=== PATIENT | male | born 1945 | race Caucasian/White ===

== ENCOUNTER → 2017-12-13 08:37 | Outpatient (CLI) | payer MEDICARE, SELFPAY ==
[2017-12-13 12:05] LABS: AST(SGOT) 27 U/L (15-37); Alanine Aminotransfer ALT/SGPT 48 U/L (16-61); Albumin, Serum 3.5 g/dL (3.2-5.0); Alkaline Phosphatase 83 U/L (45-117); Bilirubin, Direct 0.06 mg/dL (0.00-0.30); Cholesterol 94 mg/dL (200); Globulin 4.4 g/dL (2.2-4.2); High Density Lipoprotein 29 mg/dL; Protein, Total 7.9 g/dL (6.4-8.2); Triglycerides 192 mg/dL; Very Low Density Lipoprotein 38 mg/dL (5-40)
== END ==
PROVIDERS: Family Provider Family Medicine; PCP Family Medicine; Visit Provider Internal Medicine Cardiovascular Disease
DX: E78.5 Hyperlipidemia, unspecified (principal)
CPT/HCPCS: 36415; 80061; 80076

== ENCOUNTER 2018-10-03 14:22 | Emergency (ER) | payer MEDICARE, SELFPAY ==
[2018-10-03 14:23] VITALS: BP 162/63; PULSE 93; RESP 12; TEMP 36.9; O2SAT 98; BMI 70.0
--- NOTE | 2018-10-03 14:51 | RAD_ITS ---
STUDY: X-RAY CHEST REASON FOR EXAM: Male, 73 years old. Cough. TECHNIQUE: Single AP portable view of the chest. COMPARISON: Comparison is made with prior study dated October 08, 2012. FINDINGS: There now is evidence of increased markings at the lung bases suggestive of bibasilar atelectasis. Blunting of both cosmetic angles. There is mild cardiac enlargement. The patient status post mitral valve replacement. Normal mediastinum and mj. Normal visualized pulmonary arteries. Normal visualized aortic arch and descending thoracic aorta. There are diffuse degenerative changes of the visualized thoracic spine. Normal visualized ribs, clavicles, and shoulders. There is no demonstrated abnormality of the visualized soft tissue structures of the upper abdomen. RAD/Chest 1 View (Portable) IMPRESSION: Mild degree of increased markings at the lung bases with blunting of both costophrenic angles. The patient is status post mitral valve replacement. Electronically Signed: Amarjit Cruz MD at 15:35 EST Tel [phone], Service support ,
[2018-10-03 15:25] LABS: Absolute Lymphocyte Count 0.96 X10^3/ul (0.83-4.51); Absolute Neutrophil Count 5.7 X10^3/uL (2.0-7.7); Basophil# 0.02 X10^3/uL; Basophil% 0.3 % (0-1); Eosinophil# 0.12 X10^3/uL; Eosinophils% 1.6 % (0-5); Hematocrit 34.4 % (40-54); Hemoglobin 10.9 g/dl (13.0-16.5); Lymphocyte # 0.96 X10^3/ul (4.0); Lymphocyte % 12.9 % (19-41); Mean Corp Hgb Conc 31.7 g/gl (32-36); Mean Corpuscular Hgb 27.1 pg (27.0-32.0); Mean Corpuscular Volume 85.6 fL (80-94); Mean Platelet Vol. 9.7 fl (6.2-12.0); Monocyte# 0.63 X10^3/uL; Monocyte% 8.5 % (0-10); Neutrophil # 5.66 X10^3/uL (2.7-7.7); Neutrophil % 75.9 % (47-70); Platelet Count 193 K/mm3 (150-450); RBC Distribution Width CV 14.9 % (11.6-14.6); RBC Distribution Width SD 46.6 fl (35.1-43.9); Red Blood Count 4.02 M/mm3 (4.6-6.2); White Blood Count 7.5 K/mm3 (4.4-11.0)
[2018-10-03 15:30] LABS: Anion Gap 9 (5-15); BUN 29 mg/dL (7-18); BUN/Creat Ratio 20.9 RATIO (10-20); Calcium,Total 8.2 mg/dL (8.5-10.1); Chloride 104 mmol/L (98-107); Creatinine, Serum 1.39 mg/dL (0.70-1.30); EST Glomerular Filtration Rate 54 mL/min (>60); Est Glom Filt Rate - Afr Amer 65 mL/min (>60); Estimated Creatinine Clearance 51.92 ml/min; Glucose 134 mg/dL (74-106); Potassium 4.5 mmol/L (3.5-5.1); Sodium Level 138 mmol/L (136-145)
[2018-10-03 15:39] LABS: POSITIVE COUNT NO; POSITIVE DIFFERENTIAL NO; POSITIVE MORPHOLOGY NO
[2018-10-03 15:40] LABS: International Normalized Ratio 1.4; Prothrombin Time (Protime)PT. 16.8 SECONDS (11.7-14.9)
--- NOTE | 2018-10-03 16:03 | ED.DCSUM_ITS ---
- ER Visit Summary Date of Service: 10/03/18 Chief Complaint: Drainage from wound History of Present Illness: The patient is a [address] Blanchard and Dr. Akira Pacheco. On September 26 the patient had a mitral valve replacement by Dr. Smart at [facility]. He reports he was discharged from the hospital October 01. States that today he coughed and felt drainage from the incision of the lower right chest. States that the drainage was light pink, thin, and did not have an order. When asked specifically this was not purulent or jadyn blood. He denies any pain. Review of systems: General: No fever, chills, cold sweats. Cardiovascular: No chest pain, palpitations. Respiratory: No cough, shortness of breath, dyspnea on exertion. Gastrointestinal: No abdominal pain, nausea, vomiting, diarrhea, melena, or hematochezia. Genitourinary: No dysuria, frequency, hematuria. Skin: No rash. Neuro: No headache, numbness, weakness. Physical Examination: Vitals: Stable. Afebrile. General: Well-nourished and well-developed. Head: Normocephalic atraumatic. Neck: Supple, no lymphadenopathy. No JVD. Nontender. Cardiovascular: Regular rate and rhythm. No murmurs. Respiratory: No respiratory distress. Clear to auscultation bilaterally. There is an approximately 6 cm incision lateral right chest that is clean dry and intact. Inferior to this there approximately 2 cm incisions x2 that the drainage has come from. There is no surrounding erythema, induration, or tenderness to palpation. The drainage on the dressing appears to be serosanguineous. I am unable to express any fluid from this. Abdominal: Soft, nontender, nondistended, normal bowel sounds. No guarding, rebound, or peritoneal signs. Back: Nontender. Extremities: Nontender, no edema. Skin: Normal color, no rash. Neurologic: Alert and oriented ?3. Cranial nerves II through XII are intact. Normal strength and sensation. Psych: Normal affect. Test Results: CBC is more for an H&H 10.9 34.4, 7 neutrophils 76, lymphocytes 13. Chem-7 more for glucose 134, BUN 29, creatinine 1.39, calcium 8.2. INR is 1.4. Chest x-ray shows atelectasis. Emergency Department Course and Treatment: Patient is resting comfortably. Treatment Plan: The patient was discussed with Dr. Smart nurse practitioner. She reports that the incisions normally do have some serosanguineous drainage. She asked that I have patient increase his Coumadin from 1.25-2.5 mg a day and have his INR checked again on Saturday. Watch to make sure that this drainage is not becoming purulent. He is instructed to return to emerge part for worsening pain, fever, redness, or any other concerns. Otherwise follow-up with his surgeon as previously scheduled. Disposition: To home in improved and stable condition. Impression: 1. 7 days status post mitral valve replacement. 2. Subtherapeutic INR. This note was generated with [employer] dictation software. It may contain incorrect words, spelling, and punctuation that were not noted in review of the chart prior to signing ED Disposition - Plan for ED Patient: Disposition: Home or Assisted Living Chief Complaint: Wound Check Instructions: ED Burn Wound Check No Infec Referrals: Doctor,Your [STAFF PHYSICIAN] - Keep Brenden appointment Additional Instructions: Increase your Warfrin to 2.5 mg a day and have your level checked again on Saturday.
[2018-10-03 16:18] VITALS: RESP 18
== END 2018-10-03 16:19 | disposition home or self-care (01) ==
PROVIDERS: Emergency Provider Emergency Medicine; Family Provider Family Medicine; PCP Family Medicine; Referring Provider Internal Medicine Cardiovascular Disease
DX: D68.8 Other specified coagulation defects (principal); Z79.01 Long term (current) use of 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; Z95.2 Presence of prosthetic heart valve; I25.10 Atherosclerotic 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native coronary artery without angina pectoris; E11.9 Type 2 diabetes mellitus without complications; I10 Essential (primary) hypertension; Z95.5 Presence of coronary angioplasty implant and graft
CPT/HCPCS: 71045; 80048; 85025; 85610; 99282

== ENCOUNTER → 2018-10-07 13:57 | Outpatient (CLI) | payer MEDICARE, OTHER, SELFPAY ==
[2018-10-03 14:23] VITALS: BMI 70.0
--- NOTE | 2018-10-07 14:25 | RAD_ITS ---
STUDY: X-RAY CHEST REASON FOR EXAM: Male, 73 years old. Shortness of breath TECHNIQUE: Frontal and lateral views of the chest COMPARISON: 10/03/2018 FINDINGS: The lungs are clear. There are no pleural effusions. There is no pneumothorax. The heart is mildly enlarged, but stable in size. There is a prosthetic mitral valve again noted. The visualized osseous structures are within normal limits. RAD/Chest PA and Lateral IMPRESSION: No acute thoracic pathology. Electronically Signed: Bahman Carias, at 15:12 EST Tel , Service support ,
[2018-10-07 15:29] LABS: Hematocrit 34.5 % (40-54); Hemoglobin 10.6 g/dl (13.0-16.5); Mean Corp Hgb Conc 30.7 g/gl (32-36); Mean Corpuscular Hgb 26.8 pg (27.0-32.0); Mean Corpuscular Volume 87.3 fL (80-94); Mean Platelet Vol. 10.8 fl (6.2-12.0); Platelet Count 223 K/mm3 (150-450); RBC Distribution Width CV 14.9 % (11.6-14.6); RBC Distribution Width SD 47.2 fl (35.1-43.9); Red Blood Count 3.95 M/mm3 (4.6-6.2); White Blood Count 6.4 K/mm3 (4.4-11.0)
[2018-10-07 15:31] LABS: Scan Indicated on CBC? Y/N NO
[2018-10-07 15:37] LABS: Anion Gap 7 (5-15); BUN 28 mg/dL (7-18); BUN/Creat Ratio 20.3 RATIO (10-20); Calcium,Total 8.5 mg/dL (8.5-10.1); Chloride 102 mmol/L (98-107); Creatinine, Serum 1.38 mg/dL (0.70-1.30); EST Glomerular Filtration Rate 54 mL/min (>60); Est Glom Filt Rate - Afr Amer 65 mL/min (>60); Glucose 124 mg/dL (74-106); Potassium 4.5 mmol/L (3.5-5.1); Sodium Level 136 mmol/L (136-145)
--- OUTSIDE RECORDS SUMMARY | 2018-11-23 18:55 | XMS RPT_ITS ---
:1945 Author Organization [facility] Support Name Relationship Address Phone CHAPIS PHELAN Unavailable [address] + [place] [address] KAUFMAN GHASSAN Unavailable [address] + [place] [address] R Unavailable Unavailable Unavailable LINEBAMARYJANE CHAPIS Unavailable [address] + [place] [address] GHASSAN KAUFMAN Unavailable [address] + [place] [address] R Unavailable Unavailable Unavailable LINEBAUGH, CHAPIS Unavailable [address] + [place] [address] GHASSAN KAUMFAN Unavailable [address] + [place] [address] R Unavailable Unavailable Unavailable LINEBAUGH, CHAPIS Unavailable [address] + [place] [address] GHASSAN KAUFMAN Unavailable [address] + [place] [address] R Unavailable Unavailable Unavailable LINEBAUGH, CHAPIS Unavailable [address] + [place] [address] GHASSAN KAUFMAN Unavailable [address] + [place] [address] R Unavailable Unavailable Unavailable LINEBAUGH, CHAPIS Unavailable [address] + [place] [address] GHASSAN KAUFMAN Unavailable [address] + [place] [address] R Unavailable Unavailable Unavailable LINEBAUGH, CHAPIS Unavailable [address] + [place] [address] LINEBAUGH, CHAPIS Unavailable [address] + [place] [address] GHASSAN KAUFMAN Unavailable [address] + [place] [address] R Unavailable Unavailable Unavailable LINEBAUGH, CHAPIS Unavailable [address] + [place] [address] GHASSAN KAUFMAN Unavailable [address] + [place] [address] R Unavailable Unavailable Unavailable LINEBAUGH, CHAPIS Unavailable [address] + [place] [address] GHASSAN KAUFMAN Unavailable [address] + [place] [address] R Unavailable Unavailable Unavailable LINEBAUGH, CHAPIS Unavailable [address] + [place] [address] GHASSAN KAUFMAN Unavailable [address] + [place] [address] R Unavailable Unavailable Unavailable LINEBAUGH, CHAPIS Unavailable [address] + [place] [address] R Unavailable Unavailable Unavailable LINEBAUGH, CHAPIS Unavailable [address] + [place] [address] LINEBAUGH, CHAPIS Unavailable [address] + [place] [address] R Unavailable Unavailable Unavailable LINEBAUGH, CHAPIS Unavailable [address] + [place] [address] R Unavailable Unavailable Unavailable R Unavailable Unavailable Unavailable LINEBAUGH, CHAPIS Unavailable [address] + [place] [address] R Unavailable Unavailable Unavailable KATHE WILLINGHAM Unavailable / + [place], [place] / LINEBAUGH, CHAPIS Unavailable [address] + [place] [address] R Unavailable Unavailable Unavailable KATHE WILLINGHAM Unavailable / + [place], [place] / Care Team Providers Name Role Phone Physician, PCP Unknown Primary Care Unavailable Jose F Nagel Admitting Unavailable AMRIANO MORENO Attending Unavailable MARIANO MORENO Attending Unavailable Physician, PCP Unknown Primary Care Unavailable ADRIANA BUITRAGO Attending Unavailable ADRIANA BUITRAGO Referring Unavailable Tara, Akira Primary Care Unavailable ADRIANA BUITRAGO Attending Unavailable ADRIANA BUITRAGO Referring Unavailable Tara, Akira Primary Care Unavailable Tara, Akira Primary Care Unavailable ADRIANA BUITRAGO Attending Unavailable ADRIANA BUITRAGO Referring Unavailable Lorna Salinas Attending Unavailable Lo, [place] Attending Unavailable Tara, Akira Primary Care Unavailable Lo, [place] Referring Unavailable Lo, [place] Attending Unavailable Tara, Akira Referring Unavailable Alma Delia Aquino Attending Unavailable Bib Antonia Referring Unavailable Tara, Akira Primary Care Unavailable Lo, Hemant Attending Unavailable Lo, [place] Referring Unavailable Tara, Akira Primary Care Unavailable Ai Sheehan Attending Unavailable Lo, Hemant Attending Unavailable Tara, Akira Referring Unavailable ADRIANA BUITRAGO Attending Unavailable Tara, Akira Primary Care Unavailable Lo, [place] Attending Unavailable Lo, Hemant Referring Unavailable Tara, Akira Primary Care Unavailable Lo, Hemant Attending Unavailable Lo, Hemant Referring Unavailable Tara, Akira Primary Care Unavailable Lo, [place] Attending Unavailable Lo, Hemant Referring Unavailable Tara, Akira Primary Care Unavailable Tara, Akira Primary Care Unavailable Vasu Zhu Attending Unavailable Lo, [place] Referring Unavailable ADRIANA BUITRAGO Consulting Unavailable PROBLEMS PROBLEMS DATE TYPE CONDITION / CODE ATTENDING STATUS SOURCE 11/18/2018 Unknown Z95.2 - Presence of Lo, [place] Active [place] prosthetic heart Community valve / Hospital Z95.2(ICD-10) Repository 11/10/2018 Unknown 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, 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 Community 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 / Hospital Z79.01(ICD-10) Repository 10/17/2018 Unknown E78.5 - Lo, Hemant Active [place] Hyperlipidemia, Community unspecified / Hospital E78.5(ICD-10) Repository 10/17/2018 Unknown I10 - Essential Lo, [place] Active [facility] (primary) Community hypertension / Hospital I10(ICD-10) Repository 10/17/2018 Unknown I25.10 - Lo, Hemant Active [place] Atherosclerotic Community 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[facility] [place] coronary Repository artery without angina pectoris / I25.10(ICD-10) 10/17/2018 Unknown I34.0 - Nonrheumatic Lo, [place] Active [place] mitral (valve) Community insufficiency / Hospital I34.0(ICD-10) Repository 10/17/2018 Unknown I50.33 - Acute on Lo, Hemant Active [facility] chronic diastolic Community (congestive) heart Hospital failure / Repository I50.33(ICD-10) 10/17/2018 Unknown 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, 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 / Hospital Z95.3(ICD-10) Repository 10/17/2018 Unknown Z95.5 - Presence of Lo, Hemant Active [facility] coronary angioplasty Community implant and graft / Hospital Z95.5(ICD-10) Repository 10/17/2018 Unknown E78.00 - Pure Lo, Hemant Active [place] hypercholesterolemia Community , unspecified / Hospital E78.00(ICD-10) Repository 10/14/2018 Unknown T82.897A - Other Audra, Active [facility] complication of Hospital cardiac prosthetic Repository devices, implants and grafts, initial encounter / T82.897A(ICD-10) 09/21/2018 Admitting Unknown / MARIANO MORENO Active [facility] Diagnosis UNK(Unknown) Health System Repository PROCEDURES PROCEDURES No Procedure Records FoundRESULTS RESULTS PROTHROMBIN TIME W/INR Collected: 11/10/2018 Status: F Source: [place] 10[place] [facility] [place] CODE TESTS RESULT OUT OF RANGE REFERENCE UNITS LAB L300.4150 11.7-14.9 SECONDS High PROTIME 21.0 LAB L300.4200 Normal INR 1.8 Performed By: #### L300.3900 #### [facility] [address] [place], [place], [address] PROTHROMBIN TIME W/INR Collected: 10/31/2018 Status: F Source: [place] 10:45 [place] [facility] [place] CODE TESTS RESULT OUT OF RANGE REFERENCE UNITS LAB L300.4150 11.7-14.9 SECONDS High PROTIME 18.1 LAB L300.4200 Normal INR 1.5 Performed By: #### L300.3900 #### [facility] [address] [place], [address] PROTHROMBIN TIME W/INR Collected: 10/24/2018 Status: F Source: [place] 11:25 AM [facility] [place] CODE TESTS RESULT OUT OF RANGE REFERENCE UNITS LAB L300.4150 11.7-14.9 SECONDS High PROTIME 19.5 LAB L300.4200 Normal INR 1.6 Performed By: #### L300.3900 #### [facility] [place], [address] DISCHARGE SUMMARY Observed: 10/17/2018 Status: F Source: [place] 12:22 PM [facility] REPOSITORY Patient: LOVE PHELAN Age: 73 years Sex: Male : 1945 Associated Diagnoses: None Author: Sarah Bryan CNP Supervising Physician Comments Documentation By: Nurse Practitioner. Discharge Information Admit Date: 09/21/18 05:02 Discharge Date: 10/01/18 16:47 Discharge Disposition: Home with home care 06 Reason For Visit: CHF Admitting Physician: Jose F Nagel MD Attending Physician: Mariano Moreno MD Consulting Physician: Abdoulaye Stanford MD Consulting Physician: Mariano Moreno MD Consulting Physician: Georges Nayak MD Consulting Physician: Daphney Jauregui DMD Consulting Physician: Emerson Solis MD Consulting Physician: Nica Keyes MD Consulting Physician: Akira Bhatti MD Consulting Physician: Mariano Moreno MD Consulting Physician: Mariano Moreno MD Primary Care Physician: Physician, PCP Unknown Active/Final Diagnosis(es) Heart failure, unspecified Nonrheumatic mitral (valve) insufficiency Nonrheumatic mitral (valve) insufficiency Other acute postprocedural pain Presence of prosthetic heart valve . Hospital Course Hospital Course Mr. Love Phelan is a 73 year old male who underwent Right anterior mini thoracotomy; Mitral valve replacement with 27 mm Medtronic [place]don tissue valve for mitral regurgitation. Was discharged to [facility] on POD #5. Plavix was stopped due to being on Coumadin for 3 months for CVA/thrombus prophylaxis. Discharged with [facility] to have INR checks M/W/F and called to [facility] office. . Procedures Performed PROCEDURES Mitral valve operation ([id number]) performed by Mariano Moreno MD on 09/26/2018 at 73 Years. Comments: 09/28/2018 16:01 - Paul DHALIWAL , Sarah A MINI LEFT THORACOTAMY, MITRAL VALVE REPLACEMENT. Medications Discharge Medications GlipiZIDE (glipiZIDE 10 mg oral tablet, extended release) 1 Tab = 10 mg By Mouth Tab, Extended Release Twice a day x 30 Day(s) MetFORMIN (metFORMIN 1000 mg oral tablet) 1 Tab = 1,000 mg By Mouth Tablet Twice a day x 30 Day(s) Take with meals. HOLD evening dose if any nausea/vomiting or diarrhea Miscellaneous Medication (Lancets) See Instructions Lancets Check blood glucose 3 times a day after mealsDx: Insulin-dependant diabetes Miscellaneous Medication (Glucometer) See Instructions Glucometer GlucometerCheck blood glucose 3 times a day after mealsDx: Insulin-dependant diabetes Miscellaneous Medication (Diabetic Braggs) See Instructions Diabetic Braggs To administer insulin after each meal and in the evening. Dx: Insulin-dependant diabetes Miscellaneous Medication (Test Strips) See Instructions Test Strips Check blood glucose 3 times a day after mealsDx: Insulin-dependant diabetes aspirin (aspirin 81 mg oral tablet) 1 Tab = 81 mg By Mouth once a day atorvastatin (atorvastatin 20 mg oral tablet) 1 Tab = 20 mg By Mouth once a day furosemide (furosemide 40 mg oral tablet) 1 Tab = 40 mg By Mouth Tablet once a day x 30 Day(s) Last Dose: 10/01/2018 09:19 insulin aspart (insulin aspart 100 units/mL injectable solution) 8 Unit Subcutaneous Solution Before Meals - 3 Times a day x 30 Day(s) insulin glargine (insulin glargine 100 unit/ml subcutaneous solution) 50 Unit Subcutaneous Injection Twice a day x 30 Day(s) Last Dose: 10/01/2018 09:20 metoprolol (metoprolol tartrate 50 mg oral tablet) 1 Tab = 50 mg By Mouth Tablet every 12 hours x 30 Day(s) Last Dose: 10/01/2018 09:19 COMMENTS: Future refills from your PCP/Tile Designer spironolactone (spironolactone 25 mg oral tablet) 2 Tab = 50 mg By Mouth Tablet once a day x 30 Day(s) Last Dose: 10/01/2018 09:19 warfarin (warfarin 2.5 mg oral tablet) 1 Tab = 2.5 mg By Mouth Tablet Daily Warfarin x 30 Day(s) Discontinued Medication Information No discontinued medication information charted Immunizations No vaccinations charted Allergies doxycycline: Mild, Hives Results Review Discharge Lab Results 10/01/18 05:54, Hemoglobin = 9.6 gm/dL L 10/01/18 05:54, Hematocrit = 28.8 % L 10/01/18 05:54, WBC Count = 5.4 thou/mcL 10/01/18 05:54, Platelet Count = 154 thou/mcL 10/01/18 05:54, PT = 31.8 Sec H 10/01/18 05:54, INR = 2.68 10/01/18 05:54, Sodium Level = 134 mMol/L L 10/01/18 05:54, Potassium Level = 4.5 mMol/L 10/01/18 05:54, Creatinine = 1.29 mg/dL 10/01/18 05:54, BUN = 36 mg/dL H 09/22/18 05:46, TSH = 1.36 mcIU/mL 09/26/18 03:52, Bilirubin Total = 0.6 mg/dL 09/26/18 18:21, Glucose POCT = 207 mg/dL H 10/01/18 05:54, Glucose Level = 196 mg/dL H 09/22/18 05:46, Hemoglobin A1c = 9.0 % tl hgb H Pending Labs/ Orders No unresulted orders Measurements (Last Charted) Weight: 106.8 kg /235 lbs 7 oz (Actual) (09/30/18 03:44:28) Height: 108.34 cm /42.65 in (Type not Indicated) (09/21/18 18:08:00) Physical Examination See most recent progress note Discharge Plan Discharge Instructions for the patient Additional Discharge Info It is normal to not have much of an appetite for several weeks Many patients noticed their sense of taste is decreased after surgery It will return Many patients have difficulty sleeping at night Taking a pain pill before bed sometimes helps Tiredness and difficulty sleeping at night can be expected This will improve with time You may have mood swings and feel depressed or discouraged You may have good days and bad This will get better You may experience muscle pain in your shoulders and upper back Pain medicines will help relieve this discomfort. Discharge Activities Encouraged You may shower, but do not take tub baths until cleared by your physician Pat incision dry Elevate your legs on a stool or coffee table when sitting If lying on the couch, elevate your legs on the arm or back of the couch Follow your cardiac rehabilitation program and your 10 day home activity plan Begin the day after discharge Walking is an excellent activity for recovery Walk at your own pace, resting when needed Walk indoors if the temperature is below 40 or above 80, or if the humidity is high Use your Tri-Flow every hour while awake Wear your heart hugger at all times (except when showering) for 6 weeks Wear your SANDOR hose during the day Have someone else apply them in the morning and remove them at night for bed. Discharge Activities Restricted Because smoking interferes with wound healing, do not smoke Your chances of stopping are greatly increased if you use medication or attend a program to help you Please discuss this with your doctor No tub baths, hot tubs, Jacuzzi's or swimming (pools or lakes) until you have permission from your doctor No lifting over 5 lbs, until approved by your physician Do not strain your breast bone during healing Avoid lifting, pushing or pulling, carrying children, suitcases, groceries, mowing the lawn, vacuuming, moving furniture May have sexual activity, but be well rested and be the passive partner Avoid persons smoking No driving until your physician approves. Discharge Diet Eat a low sodium, low fat diet Avoid processed foods, canned products, deep fried foods and fast food items. Notify Physician If you develop a cold, sinus problems, flu-like symptoms, fever for any reason (temperature over 101F or 38C), problems urinating, (burning or stinging) or if you suspect an infection of any typ e, call your doctor immediately Call your physician if you develop chest pain or shortness of breath that is not relieved with rest Of leg swelling that is not improved by elevation or becomes worse over time Of chest pain similar to preoperative angina pain Take your temperature daily (before eating/drinking) If your temp is 101.1 F or more, take it again at Noon and 4 PM If all 3 temps are 101.1 F or above, call your doctor Take your pulse daily when at rest If your pulse is less than 60 or more than 120 beats per minute, call your physician Weigh yourself every morning If you gain more than 2-3 lbs in 48 hours, call your physician Of sudden numbness or weakness in your arms or legs. Pain Management Instructions Do not drink alcoholic beverages (beer, wine or liquor) when taking pain medications Take pain medications as prescribed. Wound and Personal Care Do not remove steri strips They will fall off on their own Shower, then pat incision dry Check your incision daily Report any redness, swelling, heat or drainage to your doctor If you experience swelling in your legs and feet, elevate them above your chest when resting If you have meagan, they will be removed in the surgeon's office or by a visiting nurse Protect your incision from overexposure to sunlight for the first year The scar will darken if exposed to the sun. Follow Up Appointments Provider: Mariano Moreno MD Specialty: Thoracic Surg [facility] [address] [place] [address] (1) Date: 10/13/18 09:15 am Comment: Please complete labs and CXR prior to your appointment Provider: Hemant Blanchard MD Specialty: Address: [address] [place] [id number] Date: 10/17/18 09:30 am Comment: Follow up with your primary evp. Your appointment is scheduled for 9:30am. Bring a list of your current medications and hospital discharge paperwork. Provider: PCP Unknown Physician Specialty: Family Practice Address: Date: Follow-up as needed Patient Education Given Mitral Valve Replacement, Heart Failure, Ddll-on-Xvbt, [place] - Cardiac Surgery Discharge Instructions (CUSTOM), Low-Sodium Eating Plan, Incision Care PROTHROMBIN TIME W/INR Collected: 10/17/2018 Status: F Source: [place] 10:[place] [facility] [place] CODE TESTS RESULT OUT OF RANGE REFERENCE UNITS LAB L300.4150 11.7-14.9 SECONDS High PROTIME 18.2 LAB L300.4200 Normal INR 1.5 Performed By: #### L300.3900 #### [facility] [address] [place], [address] CARDIOLOGY VISIT Observed: 10/17/2018 Status: F Source: [place] RE[place] 10:11 AM [facility] [place] [facility] [address] [place] [address] OFFICE VISIT Date of Service: 10/17/18 MR#: [id number] Acct: [id number] Name: LOVE PHELAN Rep #: [id number] : 1945 Provider: Hemant Blanchard MD Age/Sex: 73/M Location: [facility] Status: Signed HPI HPI Chief Complaint: Follow up visit Details: LOVE PHELAN, is a 73 M who presents to the office today for a cardiovascular follow-up. He has a history of coronary artery disease with multivessel angioplasty in 2009. Heart catheterization at that time demonstrated a totally occluded RCA, circumflex with tubular 90% stenosis, LAD had discrete 85% stenosis followed by an 80% stenosis. He had angioplasty and stenting of these vessels. Medical therapy was recommended for the other vessels.He also has a history of hypertension and hyperlipidemia. He apparently was in [place] a few weeks ago and developed severe dyspnea on exertion in the middle of the night he was seen in the hospital was noted to have a cardiac murmur and echocardiogram demonstrated severe mitral regurgitation. He underwent a transesophageal echocardiogram which demonstrated a chronically occluded right coronary artery, patent obtuse marginal branch, circumflex artery and left anterior descending artery. He underwent mitral valve replacement with a 27 mm Medtronic Weldon tissue valve. This was done via the right anterior minithoracotomy approach. He did well postoperatively but it appears that he had some problems with his chest tube a few days later. He is feeling better at this particular time. He has had no dizziness or diaphoresis no near syncope or syncope. His physical exam today demonstrates clear lung mayberry regular rate and rhythm and no pedal edema his electrocardiogram demonstrates normal sinus rhythm with a rate of 75 bpm and no acute changes. Intake Vital Signs10/17/18 Height 5 ft 11 in Intake Visit Reasons: SANDRA Nv Syd 12-5 post stent Allergies doxycycline Allergy (Verified 10/17/18 08:21) hives Medications aspirin 81 mg tablet,delayed release 81 mg PO QDAY tab 12/11/17 [History Confirmed 10/16/18] insulin aspart U- 100 100 unit/mL subcutaneous cartridge See Rx Instructions SC BID 12/18/17 [History Confirmed 10/16/18] insulin glargine (U-100) 100 unit/mL (3 mL) subcutaneous pen See Rx Instructions SC QDAY 12/18/17 [History Confirmed 10/16/18] glipizide 10 mg tablet 10 mg PO BID 10/16/18 [History Confirmed 10/16/18] metoprolol tartrate 50 mg tablet 50 mg PO BID 10/16/18 [History Confirmed 10/16/18] warfarin 2.5 mg tablet 2.5 mg PO QHS tab 10/16/18 [History Confirmed 10/16/18] atorvastatin 40 mg tablet 40 mg PO QHS 10/17/18 [History Confirmed 10/17/18] furosemide 40 mg tablet 40 mg PO DAILY 10/17/18 [History Confirmed 10/17/18] losartan 25 mg tablet 25 mg PO DAILY #90 tab 10/17/18 [Rx Confirmed 10/17/18] metformin 1,000 mg tablet 500 mg PO BID tab 10/17/18 [History Confirmed 10/17/18] spironolactone 25 mg tablet 25 mg PO DAILY 10/17/18 [History Confirmed 10/17/18] [facility] Medical History Acute on chronic diastolic (congestive) heart failure (Chronic) Non-rheumatic mitral regurgitation (Chronic) Atherosclerotic 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[place] coronary artery without angina pectoris (Chronic) Hyperlipidemia (Chronic) Essential (primary) hypertension (Chronic) Hyperlipidemia (Chronic) Renal insufficiency (Acute) Diabetes mellitus type II, controlled (Chronic) Ischemic cardiomyopathy (Chronic) Occlusion and stenosis of right carotid artery (Chronic) Old myocardial infarction (Resolved) Surgical History History of mitral valve replacement with bioprosthetic valve (Resolved 09/26/18) History of coronary artery stent placement (Resolved 03/09/10) History of left heart catheterization (Resolved 09/22/18) Family History Father CAD (coronary artery disease) Hx CABG x4 vessels Myocardial infarction, Onset Age: 50 Mother Breast cancer Social History Smoking Status: Former smoker how long ago did patient quit smokin alcohol intake: current Alcohol type: beer substance use type: does not use caffeine: Yes Type: coffee what type of physical activity do you participate in: other details: occasional rowing machine, biking frequency: other details: occasional rowing machine, biking duration: other details: occasional rowing machine, biking seatbelt use: always do you feel safe at home: Yes ROS Const Const: Positive for fatigue; negative for weakness, difficulty sleeping, frequent falls, excessive sweating or headache(s) Eyes Eyes: Negative for loss of peripheral vision, transient loss of vision, blurry vision, tunnel vision or double vision ENT ENT: Negative for headache(s), dizziness, Nosebleed/epistaxis or balance problems Cardio Chest Pain: No Palpitations: No Edema: None Muscle aches with walking: None Additional Details: Right lateral chest wall incision well approx no drainage Resp Respiratory: Positive for Cough; negative for SOB with activity, SOB at rest, SOB orthopnea\SOB lying down or paroxysmal nocturnal dyspnea GI GI: Negative nausea, heartburn, black,tarry stools or vomiting : Negative for hematuria Musc Musc: Negative for balance problems, muscle aches/ myalgia, muscle weakness or joint pain Skin Skin: Negative non-healing lesions, unusual bruising or rash Neuro Neuro: Negative for weakness, frequent falls, headache(s), blurry vision, double vision, dizziness, lightheadedness, orthostatic symptoms, near syncope, syncope or lack of coordination John Hematologic/Lymphatic: Negative for easy bruising or easy bleeding Endo Endo: Positive for fatigue; negative for excessive sweating or increased thirst/drinking Psych Psych: Negative for anxiety or depression Allergy Allergy/Immunology: Negative for hives, Negative for rash Cardiology Exam Const Appearance: cooperative, healthy appearing, well developed, well groomed and no acute distress Nutritional Appearance: well nourished and average body habitus Orientation: alert, awake and oriented x3 Head Head: normal to inspection, normocephalic and atraumatic Ears: hearing grossly normal bilaterally and external ears normal Nose: external nose normal, nasal mucous membranes and turbinates normal, nares normal, septum normal, no nasal discharge Face and Sinus: face symmetric Mouth: oral mucosae normal, tongue normal, oropharynx normal and moist mucous membranes Teeth and gingiva: dentition normal Throat: posterior oropharynx normal, tonsils normal and uvula midline Eyes General: appearance normal, both eyes and all related structures Eyelids: eyelids normal Conjunctivae: conjunctivae normal Pupils: PERRL, normal by confrontation and accommodation normal EOM: EOM intact bilaterally Neck Neck: normal visual inspection, trachea midline and no JVD JVD: +5 Carotids: normal carotid upstroke and bounding pulses Chest Chest inspection: normal inspection of the chest, symmetric chest movement and normal respiratory effort Auscultation: Bilateral: Clear to Auscultation Cardio Palpation: normal PMI Rate: regular rate Rhythm: regular rhythm Heart sounds: S1 normal, S2 normal and normal, physiologic split S2; negative rub, gallop or murmur GI GI: normal to inspection, soft, no hepatosplenomegaly and bowel sounds present Neuro General: alert, awake, oriented x3, no focal sensory deficit, gait normal and moves all extremities Skin Skin: no rashes or lesions noted Extremities Pulses: Normal: Right Femoral Pulse, Left Femoral Pulse, Right Dorsalis Pedis Pulse, Left Dorsalis Pedis Pulse, Right Posterior Tibial Pulse, Left Posterior Tibial Pulse, Right Radial Pulse, Left Radial Pulse Lower Extremity Edema: None: Bilateral Musculoskel Musculoskeletal: No joint tenderness Psych Psychological: normal affect Assessment AND Plan 1. History of mitral valve replacement with bioprosthetic valve Z95.3 27 mm Medtronic Weldon Tissue Valve Plan He has a history of mitral valve replacement. His most recent echocardiogram demonstrated mild concentric left ventricular hypertrophy asynchronous septal contraction and a left ventricular ejection fraction of 45-50%. A stable bioprosthetic valve was noted. The plan is for him to continue with anticoagulation for total of 3 months and then baby aspirin will be resumed. Orders Orders: Referrals: 2. Atherosclerotic 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[place] coronary artery without angina pectoris I25.10 PCI-RADHA-OM1 w/ 2.75 x 23 mm Promus Stent , Mid Cx w/ 3.0 x 15 mm Promus Stent and Prox LAD w/ 2.5 x 28 mm Promus Stent 03/09/2010 Plan He does have a history of coronary artery disease his most recent cardiac catheterization demonstrated patent stents which were placed in 2009 in the left anterior descending artery and the circumflex artery. The right coronary artery was noted to be occluded. Orders Orders: Referrals: 3. Pure hypercholesterolemia E78.00 Plan He does have a history of hyperlipidemia which will be continued for secondary risk factor modification. 4. Essential (primary) hypertension I10 Plan He does have a history of hypertension. His blood pressure is under good control at this particular time he will remain on the spironolactone and the metoprolol as well as the furosemide. I would like us to start him on losartan 25 mg a day. 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) Coding Level of Care Code Off vis,est,level 5 Diagnoses History of mitral valve replacement with bioprosthetic valve Z95.3 Atherosclerotic 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[place] coronary artery without angina pectoris I25.10 Pure hypercholesterolemia E78.00 Hyperlipidemia type: pure hypercholesterolemia Essential (primary) hypertension I10 Coding Level of Care Code Off vis,est,level 5 Diagnoses History of mitral valve replacement with bioprosthetic valve Z95.3 Atherosclerotic 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[place] coronary artery without angina pectoris I25.10 Pure hypercholesterolemia E78.00 Hyperlipidemia type: pure hypercholesterolemia Essential (primary) hypertension I10 10/17/18 1011 <Electronically signed by Hemant Blanchard MD> Date Hemant Blanchard MD Cosigner Signature: Date (if applicable) CC: Akira Pacheco MD 12 LEAD EKG PERFORMED Observed: 10/17/2018 Status: F Source: [facility] 9:24 AM [facility] [place] [address] [address] 12 Lead EKG performed by [facility] 10/17/18 0924 MR#: [id number] Acct: [id number] Name: LOVE PHELAN Rep #: [id number] : 1945 73 From: Hemant Blanchard MD Attending Dr: Hemant Blanchard MD Status: DEP AMB Ordering Dr: Hemant Blanchard MD Date: 10/17/18 Location: [facility] [place] Sex: M C Admitted: [facility]/12 Lead EKG performed by [facility] ECG Report Interpretation Sinus Rhythm -RSR(V1) -nondiagnostic. -Left atrial enlargement. BORDERLINEElectronically signed on 11/18/2018 at 13:24 by Hemant Blanchardwood Software Version [id number] 11/18/18 1329 Date Hemant Blanchard MD CC: Akira Pacheco MD Date Dictated: 10/17/18923 Date Transcribed: 10/17/18923 Quality Compliance Manager: [place] Signed PROTHROMBIN TIME Collected: 10/13/2018 Status: F Source: [facility] 12:48 PM HEALTH SYSTEM REPOSITORY TYPE CODE TESTS RESULT OUT OF RANGE REFERENCE UNITS LAB 95965-7([place]) Normal INR 1.41 Result Comment: The recommended therapeutic INR range for most cardiac indications is 2.0-3.0. For high intensity therapy(ie.mechanical heart valves), the recommended range is 2.5-3.5. LAB 5902-2(LOINC) 9.3-12.4 Sec Prothrombin High Time (PT) 16.5 Performed By: #### 5902-2 #### [facility] PROTHROMBIN TIME W/INR Collected: 10/10/2018 Status: F Source: [facility] 10:00 AM [facility] TYPE CODE TESTS RESULT OUT OF RANGE REFERENCE UNITS LAB L300.4150 11.7-14.9 SECONDS High PROTIME 17.6 LAB L300.4200 Normal INR 1.4 Performed By: #### L300.3900 #### [facility] [address] [place], [place], [address] PROTHROMBIN TIME W/INR Collected: 10/08/2018 Status: F Source: [place] 10:00 AM [facility] TYPE CODE TESTS RESULT OUT OF RANGE REFERENCE UNITS LAB L300.4150 11.7-14.9 SECONDS High PROTIME 17.4 LAB L300.4200 Normal INR 1.4 Performed By: #### L300.3900 #### [facility] [address] [place], [place], [address] CHEST PA AND LATERAL Observed: 10/07/2018 Status: F Source: [facility] 2:18 PM [facility] Imaging Services [address] [place] [address] Chest PA and Lateral MR#: [id number] Acct: [id number] Name: LOVE PHELAN Rep #: [id number] : 1945 M 73 From: Bahman Carias MD PCP: Akira Pacheco MD Status: REG CLI Study: Chest PA and Lateral Date of Exam: 10/07/18 Exam# [id number] Ordering Dr: MARIANO MORENO STUDY: X-RAY CHEST REASON FOR EXAM: Male, 73 years old. Shortness of breath TECHNIQUE: Frontal and lateral views of the chest COMPARISON: 10/03/2018 FINDINGS: The lungs are clear. There are no pleural effusions. There is no pneumothorax. The heart is mildly enlarged, but stable in size. There is a prosthetic mitral valve again noted. The visualized osseous structures are within normal limits. RAD/Chest PA and Lateral IMPRESSION: No acute thoracic pathology. Electronically Signed: Bahman Carias, at 15:12 EST Tel , Service support , CC: MARIANO MORENO; Akira Pacheco MD Quality Compliance Manager: Signed CBC-COMPLETE BLOOD CNT Collected: 10/07/2018 Status: F Source: [facility] NO DIFF 2:07 PM [facility] [place] TYPE CODE TESTS RESULT OUT OF RANGE REFERENCE UNITS LAB L100.1000 4.4-11.0 K/mm3 Normal WBC 6.4 LAB L100.1200 4.6-6.2 M/mm3 Low RBC 3.95 LAB L100.1300 13.0-16.5 g/dl Low HGB 10.6 LAB L100.1400 40-54 % Low HCT 34.5 LAB L100.1500 80-94 fL Normal MCV 87.3 LAB L100.1600 27.0-32.0 pg Low MCH 26.8 LAB L100.1700 32-36 g/gl Low MCHC 30.7 LAB L100.1810 11.6-14.6 % High RDW CV 14.9 LAB L100.1820 35.1-43.9 fl High RDW SD 47.2 LAB L100.1900 150-450 K/mm3 Normal PLT 223 LAB L100.2000 6.2-12.0 fl Normal MPV 10.8 Performed By: #### L100.0500 #### [facility] [address] [facility] [place], [address] BASIC METABOLIC Collected: 10/07/2018 Status: F Source: [facility] PROFILE (BMP) 2:07 PM [facility] [place] TYPE CODE TESTS RESULT OUT OF RANGE REFERENCE UNITS LAB L501.0100 74-106 mg/dL High GLU 124 Result Comment: Fasting Glucose result from 100 to 125 mg/dL suggests IMPAIRED HOMEOSTASIS per A.D.A. criteria. Please note revised GLUCOSE reference range effective 2017. LAB L501.1000 7-18 mg/dL High BUN 28 LAB L501.1100 0.70-1.30 mg/dL High CREAT,SERUM 1.38 Result Comment: The validity of the calculated GFR AND GFRAA in patients over 70 years has not been determined. Clinical correlation is essential. LAB L501.1110 >60 mL/min Low EST GFR 54 Result Comment: Non- GFR Calc LAB L501.1115 >60 mL/min Normal EST GFR - AA 65 Result Comment: GFR Calc LAB L501.1300 10-20 RATIO High BUN/CRE 20.3 LAB L501.2200 8.5-10.1 mg/dL CA Normal 8.5 LAB L501.5300 136-145 mmol/L NA Normal 136 LAB L501.5600 3.5-5.1 mmol/L K Normal 4.5 LAB L501.5900 98-107 mmol/L CL Normal 102 LAB L501.6100 21.0-32.0 mmol/L Normal CO2 27.0 LAB L501.6200 5-15 Normal GAP 7 Performed By: #### L500.2500 #### [facility] [address] [place], [address] EMERGENCY DEPARTMENT Observed: 10/03/2018 Status: F Source: [facility] SUMMARY 5:53 PM [facility] Medical Records Department [address] [place] [address] Emergency Department Summary 10/03/18 1602 MR#: [id number] Acct: [id number] Name: LOVE PHELAN Rep #: [id number] : 1945 73 From: Vasu Zhu MD PCP: Akira Pacheco MD Status: DEP ER - ER Visit Summary Date of Service: 10/03/18 Chief Complaint: Drainage from wound History of Present Illness: The patient is a [address] Blanchard and Dr. Akira Pacheco. On September 26 the patient had a mitral valve replacement by Dr. Moreno at [facility]. He reports he was discharged from the hospital October 01. States that today he coughed and felt drainage from the incision of the lower right chest. States that the drainage was light pink, thin, and did not have an order. When asked specifically this was not purulent or jadyn blood. He denies any pain. Review of systems: General: No fever, chills, cold sweats. Cardiovascular: No chest pain, palpitations. Respiratory: No cough, shortness of breath, dyspnea on exertion. Gastrointestinal: No abdominal pain, nausea, vomiting, diarrhea, melena, or hematochezia. Genitourinary: No dysuria, frequency, hematuria. Skin: No rash. Neuro: No headache, numbness, weakness. Physical Examination: Vitals: Stable. Afebrile. General: Well-nourished and well-developed. Head: Normocephalic atraumatic. Neck: Supple, no lymphadenopathy. No JVD. Nontender. Cardiovascular: Regular rate and rhythm. No murmurs. Respiratory: No respiratory distress. Clear to auscultation bilaterally. There is an approximately 6 cm incision lateral right chest that is clean dry and intact. Inferior to this there approximately 2 cm incisions x2 that the drainage has come from. There is no surrounding erythema, induration, or tenderness to palpation. The drainage on the dressing appears to be serosanguineous. I am unable to express any fluid from this. Abdominal: Soft, nontender, nondistended, normal bowel sounds. No guarding, rebound, or peritoneal signs. Back: Nontender. Extremities: Nontender, no edema. Skin: Normal color, no rash. Neurologic: Alert and oriented 3. Cranial nerves II through XII are intact. Normal strength and sensation. Psych: Normal affect. Test Results: CBC is more for an H AND H 10.9 34.4, 7 neutrophils 76, lymphocytes 13. Chem-7 more for glucose 134, BUN 29, creatinine 1.39, calcium 8.2. INR is 1.4. Chest x-ray shows atelectasis. Emergency Department Course and Treatment: Patient is resting comfortably. Treatment Plan: The patient was discussed with Dr. Moreno nurse practitioner. She reports that the incisions normally do have some serosanguineous drainage. She asked that I have patient increase his Coumadin from 1.25-2.5 mg a day and have his INR checked again on Saturday. Watch to make sure that this drainage is not becoming purulent. He is instructed to return to emerge part for worsening pain, fever, redness, or any other concerns. Otherwise follow-up with his surgeon as previously scheduled. Disposition: To home in improved and stable condition. Impression: 1. 7 days status post mitral valve replacement. 2. Subtherapeutic INR. This note was generated with [employer] dictation software. It may contain incorrect words, spelling, and punctuation that were not noted in review of the chart prior to signing ED Disposition - Plan for ED Patient: Disposition: Home or Assisted Living Chief Complaint: Wound Check Instructions: ED Burn Wound Check No Infec Referrals: Doctor,Your [STAFF PHYSICIAN] - Keep Bren[facility] appointment Additional Instructions: Increase your Warfrin to 2.5 mg a day and have your level checked again on Saturday. What to do if you have Problems For any increased pain, shortness of breath, bleeding, nausea or vomiting, chest pain, or any unexpected problems, contact your Primary Care Provider. Call [facility] ([phone]) or report to the closest Emergency Room. Call 911 if necessary. 10/03/18 8557 <Electronically signed by Vasu Zhu MD> Date Vasu Zhu MD Cosigner Signature (If Indicated): Date CC: Akira Pacheco MD CBC W/DIFF, AUTOMATED Collected: 10/03/2018 Status: F Source: [facility] 3:15 PM [facility] [place] TYPE CODE TESTS RESULT OUT OF RANGE REFERENCE UNITS LAB L100.1000 4.4-11.0 K/mm3 Normal WBC 7.5 LAB L100.1200 4.6-6.2 M/mm3 Low RBC 4.02 LAB L100.1300 13.0-16.5 g/dl Low HGB 10.9 LAB L100.1400 40-54 % Low HCT 34.4 LAB L100.1500 80-94 fL Normal MCV 85.6 LAB L100.1600 27.0-32.0 pg Normal MCH 27.1 LAB L100.1700 32-36 g/gl Low MCHC 31.7 LAB L100.1810 11.6-14.6 % High RDW CV 14.9 LAB L100.1820 35.1-43.9 fl High RDW SD 46.6 LAB L100.1900 150-450 K/mm3 Normal PLT 193 LAB L100.2000 6.2-12.0 fl Normal MPV 9.7 LAB L100.2100 47-70 % High NEUT% 75.9 LAB L100.2200 19-41 % Low LY% 12.9 LAB L100.2300 0-10 % Normal MONO% 8.5 LAB L100.2400 0-5 % Normal EO% 1.6 LAB L100.2500 0-1 % Normal BASO% 0.3 LAB L100.2550 0.0-0.9 % Normal IM GRAN % 0.800 Result Comment: IG% - Immature Granulocytes (promyelocytes, myelocytes and metamyelocytes) > 1% indicates that a LEFT SHIFT is Present. LAB L100.2620 2.0-7.7 X10 3/uL Normal Absolute Neut 5.7 LAB L100.2720 0.83-4.51 X10 3/ul Normal Absolute Lymph 0.96 Performed By: #### L100.0100 #### [facility] [address] [place], [place], [address] PROTHROMBIN TIME W/INR Collected: 10/03/2018 Status: F Source: [facility] 3:15 PM [facility] [place] TYPE CODE TESTS RESULT OUT OF RANGE REFERENCE UNITS LAB L300.4150 11.7-14.9 SECONDS High PROTIME 16.8 LAB L300.4200 Normal INR 1.4 Performed By: #### L300.3900 #### [facility] [address] [place], [address] BASIC METABOLIC Collected: 10/03/2018 Status: F Source: [facility] PROFILE (BMP) 3:06 PM [facility] [place] TYPE CODE TESTS RESULT OUT OF RANGE REFERENCE UNITS LAB L501.0100 74-106 mg/dL High GLU 134 Result Comment: Fasting Glucose result greater than or equal to 126 mg/dL suggests DIABETES MELLITUS per A.D.A. criteria. Please note revised GLUCOSE reference range effective 2017. LAB L501.1000 7-18 mg/dL High BUN 29 LAB L501.1100 0.70-1.30 mg/dL High CREAT,SERUM 1.39 Result Comment: The validity of the calculated GFR AND GFRAA in patients over 70 years has not been determined. Clinical correlation is essential. LAB L501.1110 >60 mL/min Low EST GFR 54 Result Comment: Non- GFR Calc LAB L501.1115 >60 mL/min Normal EST GFR - AA 65 Result Comment: GFR Calc LAB L501.1255 ml/min Normal Estimated CRCL 51.92 LAB L501.1300 10-20 RATIO High BUN/CRE 20.9 LAB L501.2200 8.5-10 mg/dL Low .1 CA 8.2 LAB L501.5300 136-14 mmol/L Normal 5 NA 138 LAB L501.5600 3.5-5. mmol/L Normal 1 K 4.5 LAB L501.5900 98-107 mmol/L Normal CL 104 LAB L501.6100 21.0-3 mmol/L Normal 2.0 CO2 25.0 LAB L501.6200 5-15 Normal GAP 9 Performed By: #### L500.2500 #### [facility] [address] [place], [address] CHEST 1 VIEW Observed: 10/03/2018 Status: F Source: [facility] (PORTABLE) 2:50 PM [facility] Imaging Services [address] [place] [address] Chest 1 View (Portable) MR#: [id number] Acct: [id number] Name: LOVE PHELAN Rep #: [id number] : 1945 M 73 From: Amarjit Cruz MD PCP: Akira Pacheco MD Status: REG ER Study: Chest 1 View (Portable) Date of Exam: 10/03/18 Exam# [id number] Ordering Dr: Vasu Zhu MD STUDY: X-RAY CHEST REASON FOR EXAM: Male, 73 years old. Cough. TECHNIQUE: Single AP portable view of the chest. COMPARISON: Comparison is made with prior study dated October 08, 2012. FINDINGS: There now is evidence of increased markings at the lung bases suggestive of bibasilar atelectasis. Blunting of both cosmetic angles. There is mild cardiac enlargement. The patient status post mitral valve replacement. Normal mediastinum and mj. Normal visualized pulmonary arteries. Normal visualized aortic arch and descending thoracic aorta. There are diffuse degenerative changes of the visualized thoracic spine. Normal visualized ribs, clavicles, and shoulders. There is no demonstrated abnormality of the visualized soft tissue structures of the upper abdomen. RAD/Chest 1 View (Portable) IMPRESSION: Mild degree of increased markings at the lung bases with blunting of both costophrenic angles. The patient is status post mitral valve replacement. Electronically Signed: Amarjit Cruz MD at 15:35 EST Tel [phone], Service support , CC: Vasu Zhu MD; Akira Pacheco MD Quality Compliance Manager: Signed PATIENT SUMMARY Observed: 10/01/2018 Status: C Source: [facility] 2:56 PM HEALTH SYSTEM REPOSITORY PATIENT DISCHARGE INSTRUCTIONS If you are having an emergency and are not able to reach your physician, CALL 911 or go to the nearest emergency room and take this document with you. Jed Velarde [facility] 10/01/18 14:56 [address] [place]. [address] PATIENT INFORMATION Name: LOVE PHELAN Address: [address] [place] [id number] Age: 73 Years Phone: [phone] : 1945 12:00 MRN: [id number] Sex: Male Race: White Ethnicity: Not Hispan/Lat Admitted From: [facility] Medical Service: Thoracic Surgery Nurse Unit/Bed: ([place]) [facility] 6L54-87 Admit Date: 09/21/2018 05:02 PCP: Physician, PCP Unknown PHYSICIANS INVOLVED WITH CARE Attending Physicians: Berry AMBRIZ , Mariano - Thoracic Surg Admitting Physician: Jose F Nagel MD - Internal Medicine Primary Care Physician:Physician, PCP Unknown,Family Practice,,, - Consults: Andrei EVANS , Daphney S - Oral Maxillofacial Surgery Will AMBRIZ, Emerson Elaine - Internal Medicine, Nephrology Shaikh PB , Akira - CardVas Disease Nael AMBRIZ , Georges Dumont - Nephrology Berry AMBRIZ , Mariano - Thoracic Surg Stephy AMBRIZ, Nica Dumont - Nephrology Abdoulaye AMBRIZ , Abdoulaye Gutierrez - CardVas Disease YOU WERE TREATED IN THE HOSPITAL FOR: Mitral valve regurgitation; S/P MVR (mitral valve replacement) FOLLOW-UP APPOINTMENTS: Provider: Specialty: Address: Date: Mariano Moreno MD Thoracic Surg [address] [place] [address] (1) 10/13/18 09:15 am Comment: Please complete labs and CXR prior to your appointment Provider: Specialty: Address: Date: Hemant Blanchard MD [address] [facility] [address] 10/17/18 09:30 am Comment: Follow up with your primary evp. Your appointment is scheduled for 9:30am. Bring a list of your current medications and hospital discharge paperwork. Provider: Specialty: Address: Date: PCP Unknown Physician Family Practice Follow-up as needed ALLERGIES: doxycycline : Reaction:Hives MEASUREMENTS: Last Charted: Weight: 106.8 kg /235 lbs 7 oz ( 09/30/18 03:44:28 ) MEDICATIONS For: LOVE PHELAN This is your list of medication(s). Keep it with you at all times. Your doctor may have changed doses, add, held or stopped some of your medications. Please share this information with your family docto r. Carry this list of medications with you in case of an emergency. Update it when medications are stopped, doses are changed, or new medications (including izxg-faj-usuyddd products) are added. Ask your doctor if you have any questions. THESE ARE THE MEDICATIONS YOU SHOULD BE TAKING acetaminophen-HYDROcodone (acetaminophen-HYDROcodone 325 mg- 5 mg oral tablet) 1 Tab(s) By Mouth every 4 hours as needed Pain - Mild for 7 Days. Refills: 0. Diagnosis: S/P MVR (mitral valve replacement) [Z95.2], Acute post-operative pain [G89.18] aspirin (aspirin 81 mg oral tablet) 1 Tab(s) By Mouth once a day. atorvastatin (atorvastatin 20 mg oral tablet) 1 Tab(s) By Mouth once a day. furosemide (furosemide 40 mg oral tablet) 1 Tab(s) By Mouth once a day for 30 Days. Refills: 0. GlipiZIDE (glipiZIDE 10 mg oral tablet, extended release) 1 Tab(s) By Mouth Twice a day for 30 Days. Refills: 0. insulin aspart (insulin aspart 100 units/mL injectable solution) 8 Unit(s) Subcutaneous Before Meals - 3 Times a day for 30 Days. Take before each meal. Please HOLD if BG<80. Refills: 0. insulin glargine (insulin glargine 100 unit/ml subcutaneous solution) 50 Unit(s) Subcutaneous Twice a day for 30 Days. Refills: 0. MetFORMIN (metFORMIN 1000 mg oral tablet) 1 Tab(s) By Mouth Twice a day for 30 Days. Take with meals. HOLD evening dose if any nausea/vomiting or diarrhea. Refills: 0. metoprolol (metoprolol tartrate 50 mg oral tablet) 1 Tab(s) By Mouth every 12 hours for 30 Days. Refills: 1., Future refills from your PCP/Tile Designer Miscellaneous Medication (Diabetic Braggs) To administer insulin after each meal and in the evening. Dx: Insulin-dependant diabetes. Refills: 0. Miscellaneous Medication (Glucometer) Glucometer Check blood glucose 3 times a day after meals Dx: Insulin-dependant diabetes. Refills: 0. Miscellaneous Medication (Lancets) Check blood glucose 3 times a day after meals Dx: Insulin-dependant diabetes. Refills: 0. Miscellaneous Medication (Test Strips) Check blood glucose 3 times a day after meals Dx: Insulin-dependant diabetes. Refills: 0. spironolactone (spironolactone 25 mg oral tablet) 2 Tab(s) By Mouth once a day for 30 Days. Refills: 0. warfarin (warfarin 2.5 mg oral tablet) 1 Tab(s) By Mouth Daily Warfarin for 30 Days. Refills: 1. MEDICATION CHANGE DETAILS (Not your Final Home Medication List) During the course of your visit, your home medication list was updated with the most current information. The details of those changes are shown below: NEW MEDICATIONS Printed Prescriptions acetaminophen-HYDROcodone (acetaminophen-HYDROcodone 325 mg- 5 mg oral tablet) 1 Tab(s) By Mouth every 4 hours as needed Pain - Mild for 7 Days. Refills: 0. Comment furosemide (furosemide 40 mg oral tablet) 1 Tab(s) By Mouth once a day for 30 Days. Refills: 0. Comment metoprolol (metoprolol tartrate 50 mg oral tablet) 1 Tab(s) By Mouth every 12 hours for 30 Days. Refills: 1., Future refills from your PCP/Tile Designer Comment Miscellaneous Medication (Diabetic Braggs) To administer insulin after each meal and in the evening. Dx: Insulin-dependant diabetes. Refills: 0. Comment Miscellaneous Medication (Glucometer) Glucometer Check blood glucose 3 times a day after meals Dx: Insulin-dependant diabetes. Refills: 0. Comment Miscellaneous Medication (Lancets) Check blood glucose 3 times a day after meals Dx: Insulin-dependant diabetes. Refills: 0. Comment Miscellaneous Medication (Test Strips) Check blood glucose 3 times a day after meals Dx: Insulin-dependant diabetes. Refills: 0. Comment spironolactone (spironolactone 25 mg oral tablet) 2 Tab(s) By Mouth once a day for 30 Days. Refills: 0. Comment warfarin (warfarin 2.5 mg oral tablet) 1 Tab(s) By Mouth Daily Warfarin for 30 Days. Refills: 1. Comment UPDATED MEDICATIONS Printed Prescriptions Start: GlipiZIDE (glipiZIDE 10 mg oral tablet, extended release) 1 Tab(s) By Mouth Twice a day for 30 Days. Refills: 0. Comment Start: insulin aspart (insulin aspart 100 units/mL injectable solution) 8 Unit(s) Subcutaneous Before Meals - 3 Times a day for 30 Days. Take before each meal. Please HOLD if BG<80. Refills: 0. Comment Start: insulin glargine (insulin glargine 100 unit/ml subcutaneous solution) 50 Unit(s) Subcutaneous Twice a day for 30 Days. Refills: 0. Comment Start: MetFORMIN (metFORMIN 1000 mg oral tablet) 1 Tab(s) By Mouth Twice a day for 30 Days. Take with meals. HOLD evening dose if any nausea/vomiting or diarrhea. Refills: 0. Comment UNCHANGED MEDICATIONS Other Medications aspirin (aspirin 81 mg oral tablet) 1 Tab(s) By Mouth once a day. Comment atorvastatin (atorvastatin 20 mg oral tablet) 1 Tab(s) By Mouth once a day. Comment STOP TAKING THESE MEDICATIONS AmLODIPine (amLODipine 10 mg oral tablet) 1 Tab(s) By Mouth once a day. atenolol (atenolol 50 mg oral tablet) 1 Tab(s) By Mouth once a day. cholecalciferol (Vitamin D3 5000 intl units oral tablet) 1 Tab(s) By Mouth once a day. clopidogrel (Plavix 75 mg oral tablet) 1 Tab(s) By Mouth once a day. cyanocobalamin (cyanocobalamin 100 mcg/ml injectable solution) 1 Milliliter Intramuscular Monthly - Every 30 Days. hydroCHLOROthiazide (hydroCHLOROthiazide 25 mg oral tablet) 1 Tab(s) By Mouth once a day. lisinopril (lisinopril 40 mg oral tablet) 1 Tab(s) By Mouth once a day. DO NOT TAKE UNTIL YOU TALK TO YOUR DOCTOR None NON-MEDICATION PRESCRIPTION ORDERS: Supplies - Diabetic Diabetic Supplies: Insulin Injection Supplies Diagnosis / Reason: IDDM Special Instructions (255 character limit): pen needles 5x a day with insulin. Dispense #200 Face to Face Assessment Performed: Yes Needs Assessment Performed: Yes Treatment Plan: Monitor Blood Glucose Levels Supplies - Diabetic Diabetic Supplies: Other Diagnosis / Reason: IDDM Special Instructions (255 character limit): alcohol swabs, 3x a day, #100 Face to Face Assessment Performed: Yes Needs Assessment Performed: Yes Treatment Plan: Other-See Instructions NON-MEDICATION PRESCRIPTION SCHEDULING PHONE NUMBER: EDUCATION MATERIALS GIVEN: Title-Video/Print Material: HF teaching folder, self care diary, HF zone sheet and newsletter. Title-Video/Print Material: [facility] Title-Video/Print Material: Open heart DVD Teaching Method Comment-Cardiac: Heart surgery book SELECTED LAB RESULTS Lab Result Order Date Hemoglobin 9.6 gm/dL 10/01/2018 Hematocrit 28.8 % 10/01/2018 WBC Count 5.4 thou/mcL 10/01/2018 Platelet Count 154 thou/mcL 10/01/2018 Prothrombin Time (PT) 31.8 Sec 10/01/2018 INR 2.68 10/01/2018 Sodium Level 134 mMol/L 10/01/2018 Potassium Level 4.5 mMol/L 10/01/2018 Creatinine 1.29 mg/dL 10/01/2018 BUN 36 mg/dL 10/01/2018 Thyroid Stimulating Hormone 1.36 mcIU/mL 09/22/2018 Total Bilirubin 0.6 mg/dL 09/26/2018 Hemoglobin A1c 9.0 % tl hgb 09/22/2018 B Type Natriuretic Peptide 140 Picogram/ml 09/23/2018 Glucose Level 196 mg/dL 10/01/2018 LIPIDS TESTING LAB RESULTS Lab Result Order Date Lipid Profile - Cholesterol 125 mg/dL 09/22/2018 Lipid Profile - Triglyceride 219 mg/dL 09/22/2018 HDL Cholesterol 27 mg/dL 09/22/2018 LDL Cholesterol 54 mg/dL 09/22/2018 VLDL 44 mg/dL 09/22/2018 COUMADIN? (WARFARIN) DISCHARGE INSTRUCTION Warfarin is a blood thinner and it is important to take it exactly as prescribed by your doctor. Do not start or stop any medications or [id number] medications unless your doctor or pharmacist tells you to do so. Take your warfarin at the same time every day. If you do miss a dose do not take two doses at the same time. Do not take anything that has aspirin in it or another medication that may thin your blood unless your doctor says it is okay. Tell all your healthcare providers, including your dentist, that you are taking warfarin before they treat you or give you any medications or prescriptions. Talk to the doctor who is following your warfarin if you start or stop a medication or supplement. Warfarin Needs to be Monitored Lab tests are needed to check how thin your blood is while taking warfarin. The test used to check this is called a PT/INR Make sure you know the date of your next lab test and which doctor is following your lab tests. Some medications and foods can affect your PT/INR level. See below. Medications: Taking the following medications while you are taking warfarin may make your blood too thin and cause you to bleed. If you begin taking these medications while on warfarin your dose may need to be adjus sandor by the doctor who is following your blood levels. Hvrc-yez-yspinxe pain relievers: Acetaminophen (Tylenol?) aspirin, ibuprofen, (Motrin?) Nuprin? and naproxen (Aleve?) Prescription Medication: Antibiotics, antifungals, anti-seizure medications, steroids, and antiarrhythmic medications. Supplements: Taking Vitamin E, Garlic, Gingko, Ginseng or Marii when you are taking warfarin may make your blood too thin. Eating regular amounts of these herbs in foods is fine. Taking a clove or more of garlic or an additional supplement of Marii for nausea may make your blood too thin. Foods: Foods that have vitamin K in them can affect how warfarin works. Eat a consistent amount of vitamin K foods every day. If these foods are a normal part of your daily diet you may continue to eat them. A void making major changes in your diet, or talk to your doctor before changing habits. Examples of Foods Rich in Vitamin K include: Broccoli, [place] sprouts, kale, spinach, and other leafy greens, seaweed, soybean oil and canola oil or salad dressing containing these oils, chicken liver, beef liver, pork liver, asparagus, iceberg lettuce, and Boost? Call Your Doctor: If you have blood in your urine or stool. (dark or tarry stool) If you have a rash. If you have heavy or unusual bleeding or bruising. If you have difficulty breathing. If you have any more questions about Warfarin. Seek Medical Attention Immediately Since Warfarin Increases Your Risk of Bleeding: Internal bleeding can result from falls and injuries while on Warfarin. If you fall. If you bump your head. ADVANCE DIRECTIVE/HEALTH CARE DECISIONS: Advance Directive/Health Care Decisions Executed by Patient: Yes Advance Directive/Health Care Decisions Type: Living Will, Medical Power of Director [employer] Copy of Advance Directive/Health Care Decisions on Chart: Patient/Family asked to provide copy DISCHARGE INSTRUCTIONS: Discharge Diet Eat a low sodium, low fat diet. Avoid processed foods, canned products, deep fried foods and fast food items. Discharge Activities Restricted Because smoking interferes with wound healing, don't smoke. Your chances of stopping are greatly increased if you use medication or attend a program to help you. Discuss this with your doctor. No tub ba ths, hot tubs, Jacuzzi's or swimming (pools or lakes) until you have permission from your doctor. No lifting over 5 lbs, until approved by your physician. Do not strain your breast bone during healing. Avoid lifting, pushing or pulling, carrying children, suitcases, groceries, mowing the lawn, vacuuming, moving furniture. May have sexual activity, but be well rested and be the passive partner. Avoid p ersons smoking. No driving until your physician approves. Discharge Activities Encouraged You may shower, but do not take tub baths until cleared by your physician. Pat incision dry. Elevate your legs on a stool or coffee table when sitting. If lying on the couch, elevate your legs on the ar m or back of the couch. Follow your cardiac rehabilitation program and your 10 day home activity plan. Begin the day after discharge. Walking is an excellent activity for recovery. Walk at your own pace , resting when needed. Walk indoors if the temperature is below 40 or above 80, or if the humidity is high. Use your Tri-Flow every hour while awake. Wear your heart hugger at all times (except when enrique wering) for 6 weeks. Wear your SANDOR hose during the day. Have someone else apply them in the morning and remove them at night for bed. Notify Physician If you develop a cold, sinus problems, flu-like symptoms, fever for any reason (temperature over 101F or 38C), problems urinating, (burning or stinging) or if you suspect an infection of any type, call your doctor immediately. Call your physician if you develop chest pain or shortness of breath that is not relieved with rest. Of leg swelling that is not improved by elevation or becomes worse over time . Of chest pain similar to preoperative angina pain. Take your temperature daily (before eating/drinking). If your temp is 101.1 F or more, take it again at Noon and 4 PM. If all 3 temps are 101.1 F or above, call your doctor. Take your pulse daily when at rest. If your pulse is less than 60 or more than 120 beats per minute, call your physician. Weigh yourself every morning. If you gain more than 2-3 lbs in 48 hours, call your physician. Of sudden numbness or weakness in your arms or legs. Pain Management Instructions Do not drink alcoholic beverages (beer, wine or liquor) when taking pain medications. Take pain medications as prescribed. Wound and Personal Care Do not remove steri strips. They will fall off on their own. Shower, then pat incision dry. Check your incision daily. Report any redness, swelling, heat or drainage to your doctor. If you experience sw elling in your legs and feet, elevate them above your chest when resting. If you have meagan, they will be removed in the surgeon's office or by a visiting nurse. Protect your incision from overexposur e to sunlight for the first year. The scar will darken if exposed to the sun. Additional Discharge Info It is normal to not have much of an appetite for several weeks. Many patients noticed their sense of taste is decreased after surgery. It will return. Many patients have difficulty sleeping at night. Ta reji a pain pill before bed sometimes helps. Tiredness and difficulty sleeping at night can be expected. This will improve with time. You may have mood swings and feel depressed or discouraged. You may have good days and bad. This will get better. You may experience muscle pain in your shoulders and upper back. Pain medicines will help relieve this discomfort. SUICIDE HOTLINE: Your mental and emotional well-being are important. If you are in a mental health crisis, or having thoughts of suicide, please call the nationwide suicide hotline, anytime day or night, at 2-223-920-TWZD. Important information about accessing your health information through the [facility] patient portal If you initiated the self-registration process for [facility] during your stay, please check your personal email for an invitation to enroll in [facility] and complete the steps outlined in the email. If you would prefer to enroll while in the hospital, ask a member of your care team. We would be happy to assist you. If you have already enrolled in [facility], go to [email or web address] to login and access your health information. Thank you for choosing [facility]. PATIENT EDUCATION Incision Care An incision is when a surgeon cuts into your body. After surgery, the incision needs to be cared for properly to prevent infection. HOW TO CARE FOR YOUR INCISION ???Take medicines only as directed by your health care provider. ???There are many different ways to close and cover an incision, including stitches, skin glue, and adhesive strips. Follow your health care provider's instructions on: ???Incision care. ???Bandage (dressing) changes and removal. ???Incision closure removal. ???Do not take baths, swim, or use a hot tub until your health care provider approves. You may shower as directed by your health care provider. ???Resume your normal diet and activities as directed. ???Use anti-itch medicine (such as an antihistamine) as directed by your health care provider. The incision may itch while it is healing. Do not pick or scratch at the incision. ???Drink enough fluid to keep your urine clear or pale yellow. SEEK MEDICAL CARE IF: ???You have drainage, redness, swelling, or pain at your incision site. ???You have muscle aches, chills, or a general ill feeling. ???You notice a bad smell coming from the incision or dressing. ???Your incision edges separate after the sutures, meagan, or skin adhesive strips have been removed. ???You have persistent nausea or vomiting. ???You have a fever. ???You are dizzy. SEEK IMMEDIATE MEDICAL CARE IF: ???You have a rash. ???You faint. ???You have difficulty breathing. MAKE SURE YOU: ???Understand these instructions. ???Will watch your condition. ???Will get help right away if you are not doing well or get worse. This information is not intended to replace advice given to you by your health care provider. Make sure you discuss any questions you have with your health care provider. Document Released: 05/03/2006 Document Revised: 11/04/2015 Document Reviewed: 12/08/2014 [employer] Patient Education ?2016 [employer] Cardiac Surgery Discharge Instructions 1. Diet ? Continue your recommended diet. ? Eat a well-balanced diet, including protein and calories for healing. 2. Activities ? Support your incision with both arms using a blanket when coughing or getting up from a chair. ? Do not lift more than 5 pounds for 2 months. ? Do not lift items over your head for 2 months. ? Continue to walk, increasing your walking distance daily. ? You may climb up and down stairs, as tolerated. Do not pull yourself up by the handrail. ? For 2 months, do not vacuum, sweep, shovel snow, rake leaves, remove wet clothing from a washing machine, open a sliding glass door, use your arms to lift yourself out of a chair, or do anything that could pull on your chest. It is ok to wash and comb your hair. ? You may ride as a passenger at any time, but do not drive for 6 weeks. When traveling, get out of the car every 1 to 2 hours to walk. 3. Pain Management Instructions ? If a prescription was given for pain, take as needed, as directed, and taper off. 4. Medication Information ? Take your medications as directed. Keep a copy with you. Do not add or stop taking any medication until you check with your doctor. ? Increase your fiber intake and take over the counter stool softeners and/or laxatives as directed for constipation. 5. Wound and Personal Care ? Shower daily with soap, and rinse with water. Face your back toward the stream of water. Gently pat the incision dry after your shower. ? Do not apply lotions, ointments, creams, or powders to your incision unless otherwise directed. ? No tub baths/no swimming. 6. Follow-up Care ? Keep a record of your daily weight, temperature, pulse, blood pressure, and blood sugar (if diabetic) for your follow-up appointments. 7. Follow-up Labs and/or Tests ? Follow up with your surgeon. 8. Return to Work or School ? Follow up with your surgeon about your return to work date. ? If you need forms completed, please fax them to your surgeon. 9. Referral Information ? Follow up with referrals as directed 10. Equipment and Supplies ? Use your incentive spirometer (breathing exercise machine) as directed. ? Wear your support hose during the day for at least one month or longer if your ankles are swollen. 11. Other Information ? An outpatient Cardiac Rehabilitation Program is recommended in 2-3 months, after your incision is healed. ? Please refer to your book, Heart Surgery: A Guide to Your Care and Recovery for more information. CONTACT YOUR DOCTORS/PROVIDERS 12. Call 911 for emergency help if you have any of these symptoms: ? Chest discomfort or angina (or like the discomfort symptoms you had before surgery, but not the incisional pain) ? Fainting or passing out ? Severe shortness of breath ? Difficulty swallowing, confusion, numbness, tingling, weakness in your arms or legs, slurred speech, a change in the color of your arms or legs, and/or changes in your vision 13. When to call your Surgeon: ? Temperature greater than 101 degrees F ? Increased redness, warmth, swelling, pain, bleeding or drainage at the leg and/or chest incision ? Incisional pain that is not relieved by pain medication ? Increased shortness of breath 14. When to call your Primary Care Physician or Tile Designer: ? If you have diabetes and your blood sugar is consistently above 200mg/dL ? Pulse less than 55 or greater than 120 beats/minute at rest ? Irregular heart fluttering, palpitations, or dizziness ? Weight gain of 3 pounds or more in 24 hours ? Urinating with difficulty, burning or a change in color of the urine ? Persistent nausea or vomiting Mitral Valve Replacement Mitral valve replacement is surgical replacement of the mitral valve. Many mitral valves can be repaired, especially if they leak from wearing out. When the valve is too damaged to repair, the valve mus t be replaced. Valves damaged by rheumatic disease often must be replaced. An artificial (prosthetic) valve is used to do this. Three types of prosthetic valves are available: ???Mechanical valves made entirely from man-made materials. ?Donor valves made from human donors. These are only used in special situations. ?Biological valves made from animal tissues. ? LET YOUR HEALTH CARE PROVIDER KNOW ABOUT: ???Any allergies you have. ?All medicines you are taking, including vitamins, herbs, eye drops, creams, and pwps-vhs-lerusca medicines. ?Previous problems you or members of your family have had with the use of anesthetics. ?Any blood disorders you have. ?Previous surgeries you have had. ?Medical conditions you have. ? RISKS AND COMPLICATIONS Generally, mitral valve replacement is a safe procedure. However, problems can occur and include: ???Blood clotting caused by the new valve. Replacement with a mechanical valve requires lifelong treatment with medicine to prevent blood clots. ???Infection in the new valve. Infection is more common with valve replacement than with valve repair. ?Valve failure. Valve failure is more common with valve replacement than with valve repair. Pig heart valves tend to fail after about 8 to 10 years. ???Effects from the surgery itself, such as bleeding, infection, and risks of anesthesia. These risks are rare. BEFORE THE PROCEDURE ???You may need to have blood tests, a test to check heart rhythm (electrocardiogram), or echocardiogram to evaluate your heart valves and the blood flow through them. ???Ask your health care provider about: ???Changing or stopping your regular medicines. This is especially important if you are taking diabetes medicines or blood thinners. ???Taking medicines such as aspirin and ibuprofen. These medicines can thin your blood. Do not take these medicines before your procedure if your health care provider asks you not to. ???Do not eat or drink anything after midnight on the night before the procedure or as directed by your health care provider. Ask your health care provider if you can take a sip of water with any approv ed medicines the morning of the procedure. ???Do not smoke for as long as possible before the surgery. Smoking can increase the chances of a healing problem after surgery. PROCEDURE There are two types of mitral valve replacement surgeries: ???Traditional mitral valve replacement surgery. ???You will be given medicine that makes you fall asleep (general anesthetic). ???You will then be placed on a heart-lung bypass machine. This machine provides oxygen to your blood while the heart is undergoing surgery. ???During surgery, the surgeon will make a large cut (incision) in the chest. Sometimes the heart will be cooled to slow or stop the heartbeat. ???The damaged mitral valve will be removed and replaced with a prosthetic heart valve. ???After the replacement valve is sewn in, the sac around the heart and the chest will be closed. ?Minimally invasive mitral valve replacement surgery. ???This is done through a smaller incision. The chest is not opened as in traditional surgery. ???If your condition allows for this procedure, there will often be less blood loss, less pain, and a faster recovery compared to traditional surgery. AFTER THE PROCEDURE Recovery from heart valve surgery usually involves a few days in the intensive care unit (ICU) of a hospital. This information is not intended to replace advice given to you by your health care provider. Make sure you discuss any questions you have with your health care provider. Document Released: 02/14/2006 Document Revised: 11/04/2015 Document Reviewed: 03/17/2014 [employer] Patient Education ?2016 [employer] Low-Sodium Eating Plan Sodium raises blood pressure and causes water to be held in the body. Getting less sodium from food will help lower your blood pressure, reduce any swelling, and protect your heart, liver, and kidneys. We get sodium by adding salt (sodium chloride) to food. Most of our sodium comes from canned, boxed, and frozen foods. Restaurant foods, fast foods, and pizza are also very high in sodium. Even if you t gi medicine to lower your blood pressure or to reduce fluid in your body, getting less sodium from your food is important. WHAT IS MY PLAN? Most people should limit their sodium intake to 2,300 mg a day. Your health care provider recommends that you limit your sodium intake to a day. WHAT DO I NEED TO KNOW ABOUT THIS EATING PLAN? For the low-sodium eating plan, you will follow these general guidelines: ???Choose foods with a % Daily Value for sodium of less than 5% (as listed on the food label). ?Use salt-free seasonings or herbs instead of table salt or sea salt. ?Check with your health care provider or pharmacist before using salt substitutes. ?Eat fresh foods. ???Eat more vegetables and fruits. ???Limit canned vegetables. If you do use them, rinse them well to decrease the sodium. ?Limit cheese to 1 oz (28 g) per day. ?Eat lower-sodium products, often labeled as lower sodium or no salt added. ???Avoid foods that contain monosodium glutamate (MSG). MSG is sometimes added to Greek food and some canned foods.?Check food labels (Nutrition Facts labels) on foods to learn how much sodium is in one serving. ???Eat more home-cooked food and less restaurant, buffet, and fast food.?When eating at a restaurant, ask that your food be prepared with less salt, or no salt if possible. ? HOW DO I READ FOOD LABELS FOR SODIUM INFORMATION? The Nutrition Facts label lists the amount of sodium in one serving of the food. If you eat more than one serving, you must multiply the listed amount of sodium by the number of servings. Food labels may also identify foods as: ???Sodium free?Less than 5 mg in a serving. ???Very low sodium?35 mg or less in a serving. ???Low sodium?140 mg or less in a serving. ???Light in sodium?50% less sodium in a serving. For example, if a food that usually has 300 mg of sodium is changed to become light in sodium, it will have 150 mg of sodium. ???Reduced sodium?25% less sodium in a serving. For example, if a food that usually has 400 mg of sodium is changed to reduced sodium, it will have 300 mg of sodium. WHAT FOODS CAN I EAT? Grains? Low-sodium cereals, including oats, puffed wheat and rice, and shredded wheat cereals. Low-sodium crackers. Unsalted rice and pasta. Lower-sodium bread. Vegetables? Frozen or fresh vegetables. Low-sodium or reduced-sodium canned vegetables. Low-sodium or reduced-sodium tomato sauce and paste. Low-sodium or reduced-sodium tomato and vegetable juices. Fruits? Fresh, frozen, and canned fruit. Fruit juice. Meat and Other Protein Products? Low-sodium canned tuna and salmon. Fresh or frozen meat, poultry, seafood, and fish. [place]on. Unsalted nuts. Dried beans, peas, and lentils without added salt. Unsalted canned beans. Homemade soups without salt. Eggs. Dairy? Milk. Soy milk. Ricotta cheese. Low-sodium or reduced-sodium cheeses. Yogurt. Condiments? Fresh and dried herbs and spices. Salt-free seasonings. Onion and garlic powders. Low-sodium varieties of mustard and ketchup. Fresh or refrigerated horseradish. Lemon juice. Fats and Oils?? Reduced-sodium salad dressings. Unsalted butter. ? Other? Unsalted popcorn and pretzels. The items listed above may not be a complete list of recommended foods or beverages. Contact your dietitian for more options. WHAT FOODS ARE NOT RECOMMENDED? Grains? Instant hot cereals. Bread stuffing, pancake, and biscuit mixes. Croutons. Seasoned rice or pasta mixes. Noodle soup cups. Boxed or frozen macaroni and cheese. Self-rising flour. Regular salted crackers. Vegetables? Regular canned vegetables. Regular canned tomato sauce and paste. Regular tomato and vegetable juices. Frozen vegetables in sauces. Salted [place] fries. Olives. Pickles. Relishes. Sauerkraut. Salsa. Meat and Other Protein Products? Salted, canned, smoked, spiced, or pickled meats, seafood, or fish. Johnson, ham, sausage, hot dogs, corned beef, chipped beef, and packaged luncheon meats. Salt pork. Jerky. Pickled patel. Anchovies, r egular canned tuna, and sardines. Salted nuts. Dairy? Processed cheese and cheese spreads. Cheese curds. Blue cheese and cottage cheese. Buttermilk. Condiments? Onion and garlic salt, seasoned salt, table salt, and sea salt. Canned and packaged gravies. Worcestershire sauce. Tartar sauce. Barbecue sauce. Teriyaki sauce. Soy sauce, including reduced sodium. Stea k sauce. Fish sauce. Oyster sauce. Cocktail sauce. Horseradish that you find on the shelf. Regular ketchup and mustard. Meat flavorings and tenderizers. Bouillon cubes. Hot sauce. Tabasco sauce. Marinades. Taco seasonings. Relishes. Fats and Oils?? Regular salad dressings. Salted butter. Margarine. Ghee. Johnson fat. Other? Potato and tortilla chips. [place] chips and puffs. Salted popcorn and pretzels. Canned or dried soups. Pizza. Frozen entrees and pot pies. ? The items listed above may not be a complete list of foods and beverages to avoid. Contact your dietitian for more information. This information is not intended to replace advice given to you by your health care provider. Make sure you discuss any questions you have with your health care provider. Document Released: 04/05/2003 Document Revised: 11/04/2015 Document Reviewed: 08/18/2014 [employer] Interactive Patient Education ?2015 [employer] Heart Failure Heart failure means your heart has trouble pumping blood. This makes it hard for your body to work well. Heart failure is usually a long- term (chronic) condition. You must take good care of yourself and follow your doctor's treatment plan. HOME CARE ???Take your heart medicine as told by your doctor. ???Do not stop taking medicine unless your doctor tells you to. ??? Do not skip any dose of medicine. ???Refill your medicines before they run out. ???Take other medicines only as told by your doctor or pharmacist. ???Stay active if told by your doctor. The elderly and people with severe heart failure should talk with a doctor about physical activity. ???Eat heart-healthy foods. Choose foods that are without trans fat and are low in saturated fat, cholesterol, and salt (sodium). This includes fresh or frozen fruits and vegetables, fish, lean meats, f at-free or low-fat dairy foods, whole grains, and high-fiber foods. Lentils and dried peas and beans (legumes) are also good choices. ???Limit salt if told by your doctor. ???Cook in a healthy way. Roast, grill, broil, bake, poach, steam, or stir-laura foods. ???Limit fluids as told by your doctor. ???Weigh yourself every morning. Do this after you pee (urinate) and before you eat breakfast. Write down your weight to give to your doctor. ???Take your blood pressure and write it down if your doctor tells you to. ???Ask your doctor how to check your pulse. Check your pulse as told. ???Lose weight if told by your doctor. ???Stop smoking or chewing tobacco. Do not use gum or patches that help you quit without your doctor's approval. ???Schedule and go to doctor visits as told. ???Non women should have no more than 1 drink a day. Men should have no more than 2 drinks a day. Talk to your doctor about drinking alcohol. ???Stop illegal drug use. ???Stay current with shots (immunizations). ???Manage your health conditions as told by your doctor. ???Learn to manage your stress. ???Rest when you are tired. ???If it is really hot outside: ???Avoid intense activities. ???Use air conditioning or fans, or get in a cooler place. ???Avoid caffeine and alcohol. ???Wear loose-fitting, lightweight, and light-colored clothing. ???If it is really cold outside: ???Avoid intense activities. ???Layer your clothing. ???Wear mittens or gloves, a hat, and a scarf when going outside. ???Avoid alcohol. ???Learn about heart failure and get support as needed. ???Get help to maintain or improve your quality of life and your ability to care for yourself as needed. GET HELP IF: ???You gain weight quickly. ???You are more short of breath than usual. ???You cannot do your normal activities. ???You tire easily. ???You cough more than normal, especially with activity. ???You have any or more puffiness (swelling) in areas such as your hands, feet, ankles, or belly (abdomen). ???You cannot sleep because it is hard to breathe. ???You feel like your heart is beating fast (palpitations). ???You get dizzy or light-headed when you stand up. GET HELP RIGHT AWAY IF: ???You have trouble breathing. ???There is a change in mental status, such as becoming less alert or not being able to focus. ???You have chest pain or discomfort. ???You faint. MAKE SURE YOU: ???Understand these instructions. ???Will watch your condition. ???Will get help right away if you are not doing well or get worse. This information is not intended to replace advice given to you by your health care provider. Make sure you discuss any questions you have with your health care provider. Document Released: 07/23/2009 Document Revised: 11/04/2015 Document Reviewed: 11/30/2013 Elsevier Interactive Patient Education ?2016 [employer] What You Should Know About Opioid Medicine What is an Opioid? Opioid medications are used to treat moderate to severe pain. Morphine, Oxycodone (Percocet?), Hydromorphone (Dilaudid?) and Hydrocodone ([place]?) are some types of opioids. How do Opioids work? Opioids reduce the pain signals sent to your brain, which decrease your feelings of pain. Opioids may reduce your pain, but may not take all the pain away. What are the risks from taking opioids? Prescription opioids carry serious risks of physical dependence, addiction and overdose, with remote computer terminal operator use. If you take too much of an opioid it can cause sudden . Other risks include but are not limited to: - Physical dependence means you have symptoms of withdrawal when a medication is stopped. - Addiction is a brain disease. Medications change the structure of the brain and how the brain works. These brain changes may be long lasting and can lead to harmful behaviors. - Overdose means you took too much medication. Opioid overdose can result in . Make sure you read all of the medication sheet you received with your prescription. Call 911 right away if you have any of these signs of overdose: - Pale or bluish skin color - Trouble breathing - Severe confusion; not knowing where you are - Your heart is beating slower than normal - You see or hear things that are not real Tell the people you live with that you are taking a medicine that can stop your breathing. Ask them to watch for slow, shallow, or trouble breathing. Tell them to call 911 right away if you have trouble breathing or they cannot wake you up. What you need to know while taking Opioid medication: - Do Not take more medication, or higher doses than prescribed, as you may stop breathing or pass out. - Do not take opioids more often or in higher doses than prescribed. Call your doctor if your pain is not controlled. - Do Not drink alcohol (beer, wine or liquor) while taking this medication, as you may stop breathing or pass out. - Do Not take sleeping pills (like zolpidem (Ambien?) or temazepam (Restoril?)or anti-anxiety medication (like alprazolam (Xanax?), diazepam (Valium?), and lorazepam (Ativan ?) while taking this me dication, as you may stop breathing or pass out. - Do Not crush or alter opioid medication or take it in ways not prescribed by your doctor. - Do Not drive or do tasks that require you to be alert after taking this medication. - If you are , talk to your doctor. Opioids may harm your or baby. What are the side effects from taking opioids? The most common side effects are: - Hard stools (Constipation) - Upset stomach, throwing up and dry mouth - Feeling sleepy - Feeling more pain - Confusion - Depression, low mood, feeling sad or nervous - Itching and sweating - Trouble passing urine Will I become addicted to opioid medication? Addiction is not common when this medication is used for a short time. But, when opioid medications are misused addiction is possible. Talk with your doctor about how to switch to using only non-opio id pain treatment. Please talk to your doctor about your concerns about addiction. How do I safely store and dispose of my opioids? Storage: - Keep your medications secure. - Keep your medications, including any medication patches,out of reach of others (this includes children, friends, family and pets). - Keep your opioids, and all medications, in the pill bottle from the pharmacy. Keep the lid closed. Disposal: - Safely throw out unused opioids: Contact your local pharmacy for how to throw out unused opioid medications or find your local medicine take-back site (http://disposemymeds.org/) - Follow these steps if you can't find a medicine take- back site to throw out , unused or unwanted medicines: Step #1: Mix medicine with used coffee grounds, dirt, or adamaris litter. Step #2: Put medicines in a sealed plastic bag. Step #3: Place plastic bag in the trash. Step #4: Take prescription bottle and scratch out personal information, then recycle or throw away. - Throw out patch medications by folding them in half with the sticky sides together,and then flushing them down a toilet. Do not place them in the household trash where children or pets can find them. It is against the law to share or sell your opioid medication. What else can I use to treat my pain? Non-opioid pain medications (such as Tylenol?, Motrin?, and Aleve?) may also help with your pain. If your doctor approves, these medications may be used with an opioid medication ordered for you. Non- opioid pain medications also have risks and side effects; please ask your doctor if these medications are safe for you. Many opioid medications also have acetaminophen (Tylenol?) in it. Very bad, and sometimes deadly, liver problems can happen with too much acetaminophen use. What are other ways to help ease your pain? - Heat or ice - Stretching - A pillow under the painful area - Massage - Talking to someone about how your thoughts and feelings affect your pain - Listening to music Talk to your doctor to make sure these actions are safe for you PATIENT DISCHARGE INSTRUCTION Signature Page for: LOVE PHELAN Date/Time: 10/01/2018 14:56:24 A Clinician has explained the information on my discharge instructions and has provided me with a copy. My questions have been answered to my satisfaction. Patient Signature Date/Time Responsible Party Date/Time Relationship to Patient Clinician Signature Date/Time CLINICAL SUMMARY Observed: 10/01/2018 Status: C Source: [facility] 2:56 PM HEALTH SYSTEM REPOSITORY CLINICAL SUMMARY Please take this summary document to your follow up appointments. [place] [place] 10/01/18 14:56 [address] [place] [address] PATIENT INFORMATION Name: LOVE PHELAN Address: [address] [facility] [facility] [address] Age: 73 Years Phone: [phone] : 1945 12:00 MRN: [id number] Sex: Male Race: White Ethnicity: Not Hispan/Lat Admitted From: [facility] Medical Service: Thoracic Surgery Nurse Unit/Bed: (CO) [facility] 8E42-28 Admit Date: 09/21/2018 05:02 PCP: Physician, PCP Unknown PHYSICIANS INVOLVED WITH CARE Attending Physicians: Berry AMBRIZ , Mariano - Thoracic Surg Admitting Physician: Robe AMBRIZ, Jose F - Internal Medicine Primary Care Physician:Physician, PCP Unknown,Family Practice,,, - Consults: Andrei EVANS , Daphney Goff - Oral Maxillofacial Surgery Will AMBRIZ, Emerson Elaine - Internal Medicine, Nephrology Shaikh PB , Akira - Jeannie Disease Nael AMBRIZ , Georges A - Nephrology Berry AMBRIZ , [place] - Thoracic Surg Stephy AMBRIZ, Nica Dumont - Nephrology Abdoulaye AMBRIZ , Abdoulaye Dennis Disease DIAGNOSES: Mitral valve regurgitation; S/P MVR (mitral valve replacement) Problems Active PICC (peripherally inserted central catheter) in place (09/25/2018) Acute CHF CHF (congestive heart failure) Diabetes High blood pressure Allergies doxycycline (Hives) Procedures Mitral valve operation (09/26/2018) MEASUREMENTS: Last Charted: Weight: 106.8 kg /235 lbs 7 oz ( 09/30/18 03:44:28 ) VITAL SIGNS: Last Charted: Pulse Rate: 77 BPM (10/01 11:21) Blood Pressure: 149/75 mm Hg (10/01 11:21) Pain Score: 6(10/01 11:21) Last Bowel Movement: Date/Time: 10/01 11:08 10/01/2018 00:00 MENTAL STATUS: Level of Conciousness: Alert (10/01 11:08) Orientation: Oriented x 4 (10/01 11:08) MEDICATIONS ORDERED / RECOMMENDED TO BE CONTINUED for: LOVE PHELAN acetaminophen-HYDROcodone (acetaminophen-HYDROcodone 325 mg- 5 mg oral tablet) 1 Tab(s) By Mouth every 4 hours as needed Pain - Mild for 7 Days. Refills: 0. Diagnosis: S/P MVR (mitral valve replacement) [Z95.2], Acute post-operative pain [G89.18] aspirin (aspirin 81 mg oral tablet) 1 Tab(s) By Mouth once a day. atorvastatin (atorvastatin 20 mg oral tablet) 1 Tab(s) By Mouth once a day. furosemide (furosemide 40 mg oral tablet) 1 Tab(s) By Mouth once a day for 30 Days. Refills: 0. GlipiZIDE (glipiZIDE 10 mg oral tablet, extended release) 1 Tab(s) By Mouth Twice a day for 30 Days. Refills: 0. insulin aspart (insulin aspart 100 units/mL injectable solution) 8 Unit(s) Subcutaneous Before Meals - 3 Times a day for 30 Days. Take before each meal. Please HOLD if BG<80. Refills: 0. insulin glargine (insulin glargine 100 unit/ml subcutaneous solution) 50 Unit(s) Subcutaneous Twice a day for 30 Days. Refills: 0. MetFORMIN (metFORMIN 1000 mg oral tablet) 1 Tab(s) By Mouth Twice a day for 30 Days. Take with meals. HOLD evening dose if any nausea/vomiting or diarrhea. Refills: 0. metoprolol (metoprolol tartrate 50 mg oral tablet) 1 Tab(s) By Mouth every 12 hours for 30 Days. Refills: 1., Future refills from your PCP/Tile Designer Miscellaneous Medication (Diabetic Braggs) To administer insulin after each meal and in the evening. Dx: Insulin-dependant diabetes. Refills: 0. Miscellaneous Medication (Glucometer) Glucometer Check blood glucose 3 times a day after meals Dx: Insulin-dependant diabetes. Refills: 0. Miscellaneous Medication (Lancets) Check blood glucose 3 times a day after meals Dx: Insulin-dependant diabetes. Refills: 0. Miscellaneous Medication (Test Strips) Check blood glucose 3 times a day after meals Dx: Insulin-dependant diabetes. Refills: 0. spironolactone (spironolactone 25 mg oral tablet) 2 Tab(s) By Mouth once a day for 30 Days. Refills: 0. warfarin (warfarin 2.5 mg oral tablet) 1 Tab(s) By Mouth Daily Warfarin for 30 Days. Refills: 1. MEDICATION CHANGE DETAILS NEW MEDICATIONS Printed Prescriptions acetaminophen-HYDROcodone (acetaminophen-HYDROcodone 325 mg- 5 mg oral tablet) 1 Tab(s) By Mouth every 4 hours as needed Pain - Mild for 7 Days. Refills: 0. Comment furosemide (furosemide 40 mg oral tablet) 1 Tab(s) By Mouth once a day for 30 Days. Refills: 0. Comment metoprolol (metoprolol tartrate 50 mg oral tablet) 1 Tab(s) By Mouth every 12 hours for 30 Days. Refills: 1., Future refills from your PCP/Tile Designer Comment Miscellaneous Medication (Diabetic Braggs) To administer insulin after each meal and in the evening. Dx: Insulin-dependant diabetes. Refills: 0. Comment Miscellaneous Medication (Glucometer) Glucometer Check blood glucose 3 times a day after meals Dx: Insulin-dependant diabetes. Refills: 0. Comment Miscellaneous Medication (Lancets) Check blood glucose 3 times a day after meals Dx: Insulin-dependant diabetes. Refills: 0. Comment Miscellaneous Medication (Test Strips) Check blood glucose 3 times a day after meals Dx: Insulin-dependant diabetes. Refills: 0. Comment spironolactone (spironolactone 25 mg oral tablet) 2 Tab(s) By Mouth once a day for 30 Days. Refills: 0. Comment warfarin (warfarin 2.5 mg oral tablet) 1 Tab(s) By Mouth Daily Warfarin for 30 Days. Refills: 1. Comment UPDATED MEDICATIONS Printed Prescriptions Start: GlipiZIDE (glipiZIDE 10 mg oral tablet, extended release) 1 Tab(s) By Mouth Twice a day for 30 Days. Refills: 0. Comment Start: insulin aspart (insulin aspart 100 units/mL injectable solution) 8 Unit(s) Subcutaneous Before Meals - 3 Times a day for 30 Days. Take before each meal. Please HOLD if BG<80. Refills: 0. Comment Start: insulin glargine (insulin glargine 100 unit/ml subcutaneous solution) 50 Unit(s) Subcutaneous Twice a day for 30 Days. Refills: 0. Comment Start: MetFORMIN (metFORMIN 1000 mg oral tablet) 1 Tab(s) By Mouth Twice a day for 30 Days. Take with meals. HOLD evening dose if any nausea/vomiting or diarrhea. Refills: 0. Comment UNCHANGED MEDICATIONS Other Medications aspirin (aspirin 81 mg oral tablet) 1 Tab(s) By Mouth once a day. Comment atorvastatin (atorvastatin 20 mg oral tablet) 1 Tab(s) By Mouth once a day. Comment STOP TAKING THESE MEDICATIONS AmLODIPine (amLODipine 10 mg oral tablet) 1 Tab(s) By Mouth once a day. atenolol (atenolol 50 mg oral tablet) 1 Tab(s) By Mouth once a day. cholecalciferol (Vitamin D3 5000 intl units oral tablet) 1 Tab(s) By Mouth once a day. clopidogrel (Plavix 75 mg oral tablet) 1 Tab(s) By Mouth once a day. cyanocobalamin (cyanocobalamin 100 mcg/ml injectable solution) 1 Milliliter Intramuscular Monthly - Every 30 Days. hydroCHLOROthiazide (hydroCHLOROthiazide 25 mg oral tablet) 1 Tab(s) By Mouth once a day. lisinopril (lisinopril 40 mg oral tablet) 1 Tab(s) By Mouth once a day. DO NOT TAKE UNTIL YOU TALK TO YOUR DOCTOR None RECONCILING PROVIDER(S) 10/01/18 12:20:30 EST Electronically Signed by Sarah Bryan CNP acetaminophen-HYDROcodone (acetaminophen-HYDROcodone 325 mg-5 mg oral tablet) 10/01/18 11:00:23 EST Electronically Signed by Cristhian Hong DO GlipiZIDE (glipiZIDE 10 mg oral tablet, extended release) MetFORMIN (metFORMIN 1000 mg oral tablet) Miscellaneous Medication (Lancets) insulin aspart (insulin aspart 100 units/mL injectable solution) insulin glargine (insulin glargine 100 unit/ml subcutaneous solution) 10/01/18 10:17:47 EST Electronically Signed by Sarah Bryan CNP aspirin (aspirin 81 mg oral tablet) atorvastatin (atorvastatin 20 mg oral tablet) furosemide (furosemide 40 mg oral tablet) metoprolol (metoprolol tartrate 50 mg oral tablet) spironolactone (spironolactone 25 mg oral tablet) warfarin (warfarin 2.5 mg oral tablet) Inpatient Medication History (active at the time of summary): Do not administer these medications until re-evaluated by a provider at the next level of care. Warfarin 2.5 mg Tab (Coumadin GEq) (warfarin) 2.5 mg = 1 Tab, PO, Tab, Daily-Warf, x 30 Day(s), 10/02/18 18:00:00 EST, Recent Bioprosthetic AVR/MVR (INR: 2-3) COMMENTS and SPECIAL INSTRUCTIONS: Review most current INR before administering. If INR is greater than 3.5, follow hospital procedure. Contact physician for: new onset of chest pain or SOB, new onset of extremity pain, swelling, or warmth, mental status changes, clinical signs of bleeding or Hgb decrease greater than 2 Gm/dL. GlipiZIDE XL 10 mg Tab (Glucotrol XL GEq) (GlipiZIDE XL) 10 mg = 1 Tab, PO, Tab ER, w/bkfst+din,, x 30 Day(s), 09/30/18 17:32:00 EST Last Dose: 10/01/18 09:20:00 COMMENTS and SPECIAL INSTRUCTIONS: Do Not Chew Or Crush MetFORMIN SR 500 mg Tab (Glucophage XR GEq) (MetFORMIN XR) 1,000 mg = 2 Tab, PO, Tab ER, w/breakfast,, x 30 Day(s), 09/30/18 9:30:00 EST Last Dose: 10/01/18 09:18:00 COMMENTS and SPECIAL INSTRUCTIONS: Metformin 1000mg BID, first dose now. Furosemide 40 mg Tab (Lasix GEq) (Lasix) 40 mg = 1 Tab, PO, Tab, Daily,, x 30 Day(s), 09/29/18 11:33:00 EST Last Dose: 10/01/18 09:19:00 Spironolactone 25 mg Tab (Aldactone GEq) (spironolactone) 50 mg = 2 Tab, PO, Tab, Daily,, x 30 Day(s), 09/29/18 11:33:00 EST Last Dose: 10/01/18 09:19:00 Warfarin Therapy (Coumadin Therapy Confirm Order Daily*) Each, Misc, Daily-Warf Last Dose: 09/30/18 17:55:00 Insulin U100 glargine per unit MDV (Lantus GEq) (Lantus LONG-Acting) 50 Unit = 0.5 mL, Subcut, Inject, BID,, x 30 Day(s), 09/28/18 9:08:00 EST Last Dose: 10/01/18 09:20:00 COMMENTS and SPECIAL INSTRUCTIONS: Do Not Mix With Other Insulins Do Not Administer IV Administer Subcutaneously Do not hold without Physician order Aspirin 81 mg Tab EC (Ecotrin GEq) (aspirin) 81 mg = 1 Tab, PO, Tab EC, Daily, x 30 Day(s), 09/27/18 11:20:00 EST Last Dose: 10/01/18 09:20:00 COMMENTS and SPECIAL INSTRUCTIONS: hold for platelet count less than 75,000 Pantoprazole 40 mg Tab EC (Protonix GEq) (Protonix) 40 mg = 1 Tab, PO, Tab EC, ac bkfst,, x 30 Day(s), 09/27/18 11:20:00 EST Last Dose: 10/01/18 05:47:00 COMMENTS and SPECIAL INSTRUCTIONS: Do Not Chew, Crush Or Cut Tablet Insulin U100 Lispro per unit MDV (HumaLOG GEq) (Insulin Lispro Sliding Scale (HumaLOG)*) Standard Scale, Inject, Subcut,, ac+bedtime, x 30 Day(s), 09/28/18 7:00:00 EST Last Dose: 10/01/18 06:40:00 COMMENTS and SPECIAL INSTRUCTIONS: > 0 - 60 Give 12.5 grams (25 mL) of Dextrose 50% for hypoglycemia blood glucose less than 60 mg/dL and patient cannot eat or drink. Repeat in 15 minutes if glucose remains less than 60 mg/dL. 61 - 150 0 Unit 151 - 200 2 Unit 201 - 250 4 Unit 251 - 300 6 Unit 301 - 350 8 Unit 351 - 400 10 Unit 401 - 450 12 Unit 451 or greater 14 Unit and call physician Comments >> Heparin 5,000 Units/mL Vial 1 mL (NT) (heparin) 5,000 Unit = 1 mL, Subcut, Inject, Q8h, x 30 Day(s), 09/27/18 11:20:00 EST Last Dose: 10/01/18 05:47:00 COMMENTS and SPECIAL INSTRUCTIONS: Check daily for signs of bleeding and notify physician if bleeding noted. Levalbuterol 0.63 mg/3 mL Inh Inna (Xopenex GEq) (Xopenex Inh Inna) 0.63 mg = 3 mL, Nebul, Inna, Resp QID,, x 30 Day(s), 09/27/18 11:20:00 EST Last Dose: 09/30/18 17:13:00 Atorvastatin 20 mg Tab (Lipitor GEq) (atorvastatin) 20 mg = 1 Tab, PO, Tab, Daily,, x 30 Day(s), 09/27/18 8:08:00 EST Last Dose: 10/01/18 09:19:00 Metoprolol 50 mg Tab (Lopressor GEq) (Lopressor) 50 mg = 1 Tab, PO, Tab, Q12h,, x 30 Day(s), 09/27/18 8:11:00 EST Last Dose: 10/01/18 09:19:00 OxyCODONE/Acetaminophen 5 mg/325 mg Tab (Percocet GEq) (Percocet 5 mg/325 mg*) 2 Tab, PO, Tab, Q4h, x 30 Day(s), PRN Pain - Severe, 09/27/18 11:20:00 EST Last Dose: 09/29/18 20:08:00 COMMENTS and SPECIAL INSTRUCTIONS: Maximum 4 Gm Acetaminophen/Day for Adults HYDROcodone/Acetaminophen 5 mg/325 mg Tab ([place] 5 GEq) ([place] 5 mg/325 mg*) 2 Tab, PO, Tab, Q4h, x 30 Day(s), PRN Pain - Moderate, 09/27/18 11:20:00 EST Last Dose: 09/28/18 19:39:00 COMMENTS and SPECIAL INSTRUCTIONS: Maximum 4 Gm Acetaminophen/Day for Adults Acetaminophen 325 mg Tab (Tylenol GEq) (Tylenol*) 650 mg = 2 Tab, PO, Tab, Q4h, PRN, See Comments, x 30 Day(s), 09/27/18 11:20:00 EST COMMENTS and SPECIAL INSTRUCTIONS: PRN for headache or temperature greater than 101.4 F. Maximum 4 Gm Acetaminophen/Day for Adults Atropine 0.1 mg/mL Syringe 10 mL 0.5 mg = 5 mL, IV Push, Inject, Q3min, PRN, See Comments, x 6 Time(s)/Dose(s), 09/27/18 11:20:00 EST COMMENTS and SPECIAL INSTRUCTIONS: May repeat doses in 3 - 5 minutes up to a total of 3 mg. If pacing wires are not present. For symptomatic bradycardia with a heart rate less than 50 beats per minute. Nitroglycerin Subl Tab 0.4 mg #25 (Nitrostat GEq) (Nitrostat*) 0.4 mg = 1 Tab, Subl, Tab Subl, Q5min, PRN, See Comments, x 3 Time(s)/Dose(s), 09/27/18 11:20:00 EST Ondansetron 2 mg/mL Inj 2 mL (Zofran GEq) (Zofran Inj*) 4 mg = 2 mL, IV Push, Inject, Q8h, PRN, Nausea/Vomiting, x 30 Day(s), 09/27/18 11:20:00 EST COMMENTS and SPECIAL INSTRUCTIONS: Administer IV Over 2 Minutes Magnesium Hydroxide 8% Susp 30 mL (Milk of Magnesia) (Milk of Magnesia 8%) 30 mL, PO, Susp, PRN, x 30 Day(s), PRN Constipation, 2,400 mg, 09/27/18 11:20:00 EST Last Dose: 09/29/18 20:17:00 Bisacodyl 10 mg Suppos (Dulcolax GEq) (Dulcolax*) 10 mg = 1 Suppos, Rectal, Suppos, Daily, PRN, Constipation, x 30 Day(s), 09/27/18 11:20:00 EST Mylanta/Maalox Plus Susp 30 mL (GEq) (Mylanta/Maalox Plus*) 30 mL, PO, Susp, PRN, x 30 Day(s), PRN Indigestion/Heartburn, 09/27/18 11:20:00 EST COMMENTS and SPECIAL INSTRUCTIONS: SHAKE WELL Sodium Chloride 0.9% PF Flush Syringe 10 mL (Normal Saline Flush*) 10 mL, IV Push, Inject, Q8h, x 30 Day(s), PRN See Comments, 09/27/18 11:20:00 EST COMMENTS and SPECIAL INSTRUCTIONS: Flush unused sideport introducer, discontinue when sideport removed. Sodium Chloride 0.9% PF Flush Syringe 10 mL (Normal Saline Flush*) 2.5 mL, IV Push, Inject, Q8h, x 30 Day(s), PRN See Comments, 09/27/18 11:20:00 EST COMMENTS and SPECIAL INSTRUCTIONS: Flush unused peripheral IV site access HYDROcodone/Acetaminophen 5 mg/325 mg Tab ([place] 5 GEq) ([place] 5 mg/325 mg) 1 Tab, PO, Tab, Q4h, x 30 Day(s), PRN Pain - Mild, 09/27/18 11:20:00 EST COMMENTS and SPECIAL INSTRUCTIONS: Maximum 4 Gm Acetaminophen/Day for Adults Amiodarone (Cordarone Inj*) 150 mg = 3 mL, IVPB, Once, PRN, See Comments, 09/27/18 11:20:00 EST Dextrose 50% Syringe 25 Gm/50 mL (Dextrose 50% Syringe*) 12.5 Gm = 25 mL, IV Push, Inject, PRN, PRN, See Comments, x 30 Day(s), 09/27/18 11:20:00 EST Glucagon 1 mg Vial (Glucagen GEq) (Glucagon) 1 mg, Subcut, Inject, PRN, PRN, See Comments, x 30 Day(s), 09/27/18 11:20:00 EST COMMENTS and SPECIAL INSTRUCTIONS: If IV access is not obtainable: For hypoglycemia blood glucose less than 60 mg/dL and patient cannot eat or drink. Repeat in 15 minutes if glucose remains less than 60 mg/dL. Sodium Chloride 0.9% PF Flush Syringe 10 mL (Saline Flush*) 10 mL, IV Push, Inject, Q8h, x, PRN See Comments, 09/25/18 19:49:00 EST Last Dose: 09/26/18 15:58:00 Sodium Chloride 0.9% PF Flush Syringe 10 mL (Saline Flush*) 20 mL, IV Push, Inject, PRN, x 30 Day(s), PRN See Comments, 09/25/18 19:49:00 EST Sodium Chloride 0.9% PF Flush Syringe 10 mL (Saline Flush*) 20 mL, IV Push, Inject, PRN, x 30 Day(s), PRN See Comments, 09/25/18 19:49:00 EST Dextrose 5%/NaCl 0.2% 500 mL (Dextrose 5% with 0.2% NaCl 500 mL) 500 ml, 25 mL/hr, IV, x 30 Day(s), 500 mL, Infusion, 09/27/18 11:20:00 EST, 101.9 kg Amiodarone 450 mg [1 mg/min] + Sodium Chlor 0.9% Non-PVC 250 mL (Amiodarone Additive* 450 mg [1 mg/min] + Sodium Chloride 0.9% 250 mL) 250 ml, 33.33 mL/hr, IV, x 30 Day(s),, See Comments, 250 mL, 09/27/18 11:20:00 EST, 101.9 kg COMMENTS and SPECIAL INSTRUCTIONS: GOAL EFFECT: Suppression of arrhythmia * USUAL INFUSION REGIMEN: 1 mg/min x 6 hr, then 0.5 mg/min (further adjustments per prescriber) * Administer through IV line with in-line filter * CONTACT PRESCRIBER: HR less than 60 or greater than 120 BPM; SBP less than 80 or greater than 180 mmHg; prolongation of OK interval + QRS complex * Individual cases may require deviation from parameters Only use if pt goes into A. Fib. PRN Administer Via In-Line Filter Discard any Remaining Solution After 24 hours Use Volumetric Infusion Pump!! Total Volume = 250mL, Conc = 1.8 mg/mL INACTIVE MEDICATIONS GIVEN IN THE LAST 36 HOURS: Medications Discontinued or Completed in the last 36 hours: Metoprolol 25 mg Tab (Lopressor GEq) 12.5 mg = 0.5 Tab, PO, Tab, Once,, 10/01/18 9:54:00 EST Last Dose: 10/01/18 11:54:00 Spironolactone 25 mg Tab (Aldactone GEq) 25 mg = 1 Tab, PO, Tab,, 09/29/18 11:33:00 EST Last Dose: 10/01/18 09:19:00 Metoprolol 25 mg Tab (Lopressor GEq) 37.5 mg = 1.5 Tab, PO, Tab,, 09/27/18 8:11:00 EST Last Dose: 10/01/18 09:19:00 Furosemide 10 mg/mL Vial 4 mL (Lasix GEq) 40 mg = 4 mL, IV Push, Inject, Once,, 10/01/18 7:24:00 EST Last Dose: 10/01/18 11:52:00 Metoprolol 25 mg Tab (Lopressor GEq) 37.5 mg = 1.5 Tab, PO, Tab,, 09/27/18 8:11:00 EST Last Dose: 09/30/18 22:17:00 Warfarin 5 mg Tab (Coumadin GEq) 5 mg = 1 Tab, PO, Tab, 09/29/18 8:49:00 EST, Atrial Fibrillation (INR Target: 2-3) Last Dose: 09/30/18 17:54:00 Insulin U100 Lispro per unit MDV (HumaLOG GEq) 8 Unit = 0.08 mL, Subcut, Inject,, 09/29/18 9:00:00 EST Last Dose: 09/30/18 16:26:00 Furosemide 10 mg/mL Vial 4 mL (Lasix GEq) 40 mg = 4 mL, IV Push, Inject, Once,, 09/30/18 14:17:00 EST Last Dose: 09/30/18 16:21:00 Insulin U100 Lispro per unit MDV (HumaLOG GEq) 8 Unit = 0.08 mL, Subcut, Inject,, 09/29/18 9:00:00 EST Last Dose: 09/30/18 12:06:00 GlipiZIDE XL 10 mg Tab (Glucotrol XL GEq) 10 mg = 1 Tab, PO, Tab ER,, 09/30/18 12:00:00 EST Last Dose: 09/30/18 12:13:00 PEG Powder 17 Gm (MiraLax GEq) 17 Gm = 1 Packet, PO, Powder,, 09/27/18 11:20:00 EST Last Dose: 09/30/18 09:00:00 Senna 8.6 mg Tab (Senokot GEq) 1 Tab, PO, Tab,, 8.6 mg, 09/27/18 11:20:00 EST Last Dose: 09/30/18 08:59:00 Furosemide 20 mg Tab (Lasix GEq) 20 mg = 1 Tab, PO, Tab,, 09/29/18 11:33:00 EST Last Dose: 09/30/18 08:59:00 Spironolactone 25 mg Tab (Aldactone GEq) 25 mg = 1 Tab, PO, Tab,, 09/29/18 11:33:00 EST Last Dose: 09/30/18 08:59:00 Insulin U100 glargine per unit MDV (Lantus GEq) 30 Unit = 0.3 mL, Subcut, Inject,, 09/28/18 9:08:00 EST Last Dose: 09/30/18 09:00:00 Metoprolol 25 mg Tab (Lopressor GEq) 37.5 mg = 1.5 Tab, PO, Tab,, 09/27/18 8:11:00 EST Last Dose: 09/30/18 08:19:00 Lactulose 20 Gm/30 mL Syrup 30 mL (Cephulac GEq) 30 mL, PO, Syrup, Once,, 20 Gm, 09/30/18 8:57:00 EST Last Dose: 09/30/18 09:02:00 Insulin U100 Lispro per unit MDV (HumaLOG GEq) 8 Unit = 0.08 mL, Subcut, Inject,, 09/29/18 9:00:00 EST Last Dose: 09/30/18 09:02:00 Atorvastatin 20 mg Tab (Lipitor GEq)(unverified) 20 mg = 1 Tab, PO, Tab,, 09/27/18 8:08:00 EST Last Dose: 10/01/18 09:19:00 Aspirin 81 mg Tab EC (Ecotrin GEq)(unverified) 81 mg = 1 Tab, PO, Tab EC, 09/27/18 11:20:00 EST Last Dose: 10/01/18 09:20:00 Insulin U100 glargine per unit MDV (Lantus GEq)(unverified) 50 Unit = 0.5 mL, Subcut, Inject,, 09/28/18 9:08:00 EST Last Dose: 10/01/18 09:20:00 Furosemide 40 mg Tab (Lasix GEq)(unverified) 40 mg = 1 Tab, PO, Tab,, 09/29/18 11:33:00 EST Last Dose: 10/01/18 09:19:00 MetFORMIN SR 500 mg Tab (Glucophage XR GEq)(unverified) 1,000 mg = 2 Tab, PO, Tab ER,, 09/30/18 9:30:00 EST Last Dose: 10/01/18 09:18:00 GlipiZIDE XL 10 mg Tab (Glucotrol XL GEq)(unverified) 10 mg = 1 Tab, PO, Tab ER,, 09/30/18 17:32:00 EST Last Dose: 10/01/18 09:20:00 Insulin U100 Lispro per unit MDV (HumaLOG GEq)(unverified) Standard Scale, Inject, Subcut,, 09/28/18 7:00:00 EST Last Dose: 10/01/18 06:40:00 Pantoprazole 40 mg Tab EC (Protonix GEq)(unverified) 40 mg = 1 Tab, PO, Tab EC,, 09/27/18 11:20:00 EST Last Dose: 10/01/18 05:47:00 Heparin 5,000 Units/mL Vial 1 mL (NT)(unverified) 5,000 Unit = 1 mL, Subcut, Inject, 09/27/18 11:20:00 EST Last Dose: 10/01/18 05:47:00 Heparin 5,000 Units/mL Vial 1 mL (NT)(unverified) 5,000 Unit = 1 mL, Subcut, Inject, 09/27/18 11:20:00 EST Last Dose: 09/30/18 22:17:00 Insulin U100 Lispro per unit MDV (HumaLOG GEq)(unverified) Standard Scale, Inject, Subcut,, 09/28/18 7:00:00 EST Last Dose: 09/30/18 22:16:00 Insulin U100 glargine per unit MDV (Lantus GEq)(unverified) 50 Unit = 0.5 mL, Subcut, Inject,, 09/28/18 9:08:00 EST Last Dose: 09/30/18 22:17:00 Warfarin Therapy(unverified) Each, Misc Last Dose: 09/30/18 17:55:00 Insulin U100 Lispro per unit MDV (HumaLOG GEq)(unverified) Standard Scale, Inject, Subcut,, 09/28/18 7:00:00 EST Last Dose: 09/30/18 16:26:00 Levalbuterol 0.63 mg/3 mL Inh Inna (Xopenex GEq)(unverified) 0.63 mg = 3 mL, Nebul, Inna,, 09/27/18 11:20:00 EST Last Dose: 09/30/18 17:13:00 Heparin 5,000 Units/mL Vial 1 mL (NT)(unverified) 5,000 Unit = 1 mL, Subcut, Inject, 09/27/18 11:20:00 EST Last Dose: 09/30/18 14:06:00 Levalbuterol 0.63 mg/3 mL Inh Inna (Xopenex GEq)(unverified) 0.63 mg = 3 mL, Nebul, Inna,, 09/27/18 11:20:00 EST Last Dose: 09/30/18 12:24:00 Insulin U100 Lispro per unit MDV (HumaLOG GEq)(unverified) Standard Scale, Inject, Subcut,, 09/28/18 7:00:00 EST Last Dose: 09/30/18 12:05:00 MetFORMIN SR 500 mg Tab (Glucophage XR GEq)(unverified) 1,000 mg = 2 Tab, PO, Tab ER,, 09/30/18 9:30:00 EST Last Dose: 09/30/18 12:05:00 Atorvastatin 20 mg Tab (Lipitor GEq)(unverified) 20 mg = 1 Tab, PO, Tab,, 09/27/18 8:08:00 EST Last Dose: 09/30/18 08:59:00 Aspirin 81 mg Tab EC (Ecotrin GEq)(unverified) 81 mg = 1 Tab, PO, Tab EC, 09/27/18 11:20:00 EST Last Dose: 09/30/18 09:00:00 Levalbuterol 0.63 mg/3 mL Inh Inna (Xopenex GEq)(unverified) 0.63 mg = 3 mL, Nebul, Inna,, 09/27/18 11:20:00 EST Last Dose: 09/30/18 08:19:00 Insulin U100 Lispro per unit MDV (HumaLOG GEq)(unverified) Standard Scale, Inject, Subcut,, 09/28/18 7:00:00 EST Last Dose: 09/30/18 09:03:00 Pantoprazole 40 mg Tab EC (Protonix GEq)(unverified) 40 mg = 1 Tab, PO, Tab EC,, 09/27/18 11:20:00 EST Last Dose: 09/30/18 07:00:00 Heparin 5,000 Units/mL Vial 1 mL (NT)(unverified) 5,000 Unit = 1 mL, Subcut, Inject, 09/27/18 11:20:00 EST Last Dose: 09/30/18 07:00:00 NON-MEDICATION PRESCRIPTION ORDERS: Supplies - Diabetic Diabetic Supplies: Insulin Injection Supplies Diagnosis / Reason: IDDM Special Instructions (255 character limit): pen needles 5x a day with insulin. Dispense #200 Face to Face Assessment Performed: Yes Needs Assessment Performed: Yes Treatment Plan: Monitor Blood Glucose Levels Supplies - Diabetic Diabetic Supplies: Other Diagnosis / Reason: IDDM Special Instructions (255 character limit): alcohol swabs, 3x a day, #100 Face to Face Assessment Performed: Yes Needs Assessment Performed: Yes Treatment Plan: Other-See Instructions EDUCATION MATERIALS GIVEN: Title-Video/Print Material: HF teaching folder, self care diary, HF zone sheet and newsletter. Title-Video/Print Material: picc Title-Video/Print Material: Open heart DVD Teaching Method Comment-Cardiac: Heart surgery book FOLLOW-UP APPOINTMENTS: Provider: Specialty: Address: Date: Mariano Moreno MD Thoracic Surg [address] [place] [address] [address] [place] [address] (1) 10/13/18 09:15 am Comment: Please complete labs and CXR prior to your appointment Provider: Specialty: Address: Date: Hemant Blanchard MD [address] [place] [id number] 10/17/18 09:30 am Comment: Follow up with your primary evp. Your appointment is scheduled for 9:30am. Bring a list of your current medications and hospital discharge paperwork. Provider: Specialty: Address: Date: PCP Unknown Physician Family Practice Follow-up as needed TRANSFER ORDERS/INSTRUCTIONS: - Electronically signed by Transfer Details Admit to Care of Provider: Admit to covering physician. Destination Post Transfer: Home. Home Care Date of Face to Face: 10/01/2018 11:40. Home Care Homebound Reason: There exists a normal inability to leave the home because it requires a considerable and taxing effort. Home Care Reason: New Treatment. Therapies. Transfer Level of Care: Home with home care. Transfer Orders Communicable Disease Status: Patient is free of Communicable Disease. Notify Physician: If you gain 2-3 pounds overnight or 4-5 pounds in 5 days, notify your physician. Increased redness, drainage or swelling. Intolerable pain. Shortness of breath. Temperature greater ajit n 101.5 F. Worsening or recurring symptoms. Transfer Activities Restricted: Other: thoracotomy precautions. Transfer Additional Orders: Please check INR level tomorrow 10/02/18 and call to CTS office [phone]. Will then have INR checks every Saturday, Saturday, and Saturday. Dr. Moreno office to follow levels [phone]. Transfer Code Status: Full Resuscitation. Transfer Consults: Physical Therapy. Registered Nurse. Transfer Patient Care: Daily Weight. Vital Signs: Routine. Intake and Output. Antiembolic Hose/Stockings on in AM, off at bedtime. Transfer Tuberculosis Status: Patient is free of signs and symptoms of TB. COUMADIN?? (WARFARIN) DISCHARGE INSTRUCTION Warfarin is a blood thinner and it is important to take it exactly as prescribed by your doctor. Do not start or stop any medications or ocfw-fhl-srciycy medications unless your doctor or pharmacist tells you to do so. Take your warfarin at the same time every day. If you do miss a dose do not take two doses at the same time. Do not take anything that has aspirin in it or another medication that may thin your blood unless your doctor says it is okay. Tell all your healthcare providers, including your dentist, that you are taking warfarin before they treat you or give you any medications or prescriptions. Talk to the doctor who is following your warfarin if you start or stop a medication or supplement. Warfarin Needs to be Monitored Lab tests are needed to check how thin your blood is while taking warfarin. The test used to check this is called a PT/INR Make sure you know the date of your next lab test and which doctor is following your lab tests. Some medications and foods can affect your PT/INR level. See below. Medications: Taking the following medications while you are taking warfarin may make your blood too thin and cause you to bleed. If you begin taking these medications while on warfarin your dose may need to be adjus sandor by the doctor who is following your blood levels. Vxzx-xku-kbooaft pain relievers: Acetaminophen (Tylenol??) aspirin, ibuprofen, (Motrin??) Nuprin?? and naproxen (Aleve??) Prescription Medication: Antibiotics, antifungals, anti-seizure medications, steroids, and antiarrhythmic medications. Supplements: Taking Vitamin E, Garlic, Gingko, Ginseng or Marii when you are taking warfarin may make your blood too thin. Eating regular amounts of these herbs in foods is fine. Taking a clove or more of garlic or an additional supplement of Marii for nausea may make your blood too thin. Foods: Foods that have vitamin K in them can affect how warfarin works. Eat a consistent amount of vitamin K foods every day. If these foods are a normal part of your daily diet you may continue to eat them. A void making major changes in your diet, or talk to your doctor before changing habits. Examples of Foods Rich in Vitamin K include: Broccoli, [place] sprouts, kale, spinach, and other leafy greens, seaweed, soybean oil and canola oil or salad dressing containing these oils, chicken liver, beef liver, pork liver, asparagus, iceberg lettuce, and Boost?? Call Your Doctor: If you have blood in your urine or stool. (dark or tarry stool) If you have a rash. If you have heavy or unusual bleeding or bruising. If you have difficulty breathing. If you have any more questions about Warfarin. Seek Medical Attention Immediately Since Warfarin Increases Your Risk of Bleeding: Internal bleeding can result from falls and injuries while on Warfarin. If you fall. If you bump your head. ADVANCE DIRECTIVE/HEALTH CARE DECISIONS: Advance Directive/Health Care Decisions Executed by Patient: Yes Advance Directive/Health Care Decisions Type: Living Will, Medical Power of Director [employer] Copy of Advance Directive/Health Care Decisions on Chart: Patient/Family asked to provide copy DISCHARGE INSTRUCTIONS: Discharge Diet Eat a low sodium, low fat diet. Avoid processed foods, canned products, deep fried foods and fast food items. Discharge Activities Restricted Because smoking interferes with wound healing, don't smoke. Your chances of stopping are greatly increased if you use medication or attend a program to help you. Discuss this with your doctor. No tub ba ths, hot tubs, Jacuzzi's or swimming (pools or lakes) until you have permission from your doctor. No lifting over 5 lbs, until approved by your physician. Do not strain your breast bone during healing. Avoid lifting, pushing or pulling, carrying children, suitcases, groceries, mowing the lawn, vacuuming, moving furniture. May have sexual activity, but be well rested and be the passive partner. Avoid p ersons smoking. No driving until your physician approves. Discharge Activities Encouraged You may shower, but do not take tub baths until cleared by your physician. Pat incision dry. Elevate your legs on a stool or coffee table when sitting. If lying on the couch, elevate your legs on the ar m or back of the couch. Follow your cardiac rehabilitation program and your 10 day home activity plan. Begin the day after discharge. Walking is an excellent activity for recovery. Walk at your own pace , resting when needed. Walk indoors if the temperature is below 40 or above 80, or if the humidity is high. Use your Tri-Flow every hour while awake. Wear your heart hugger at all times (except when enrique wering) for 6 weeks. Wear your SANDOR hose during the day. Have someone else apply them in the morning and remove them at night for bed. Notify Physician If you develop a cold, sinus problems, flu-like symptoms, fever for any reason (temperature over 101F or 38C), problems urinating, (burning or stinging) or if you suspect an infection of any type, call your doctor immediately. Call your physician if you develop chest pain or shortness of breath that is not relieved with rest. Of leg swelling that is not improved by elevation or becomes worse over time . Of chest pain similar to preoperative angina pain. Take your temperature daily (before eating/drinking). If your temp is 101.1 F or more, take it again at Noon and 4 PM. If all 3 temps are 101.1 F or above, call your doctor. Take your pulse daily when at rest. If your pulse is less than 60 or more than 120 beats per minute, call your physician. Weigh yourself every morning. If you gain more than 2-3 lbs in 48 hours, call your physician. Of sudden numbness or weakness in your arms or legs. Pain Management Instructions Do not drink alcoholic beverages (beer, wine or liquor) when taking pain medications. Take pain medications as prescribed. Wound and Personal Care Do not remove steri strips. They will fall off on their own. Shower, then pat incision dry. Check your incision daily. Report any redness, swelling, heat or drainage to your doctor. If you experience sw elling in your legs and feet, elevate them above your chest when resting. If you have meagan, they will be removed in the surgeon's office or by a visiting nurse. Protect your incision from overexposur e to sunlight for the first year. The scar will darken if exposed to the sun. Additional Discharge Info It is normal to not have much of an appetite for several weeks. Many patients noticed their sense of taste is decreased after surgery. It will return. Many patients have difficulty sleeping at night. Ta reji a pain pill before bed sometimes helps. Tiredness and difficulty sleeping at night can be expected. This will improve with time. You may have mood swings and feel depressed or discouraged. You may have good days and bad. This will get better. You may experience muscle pain in your shoulders and upper back. Pain medicines will help relieve this discomfort. SELECTED LAB RESULTS Lab Result Order Date Hemoglobin 9.6 gm/dL 10/01/2018 Hematocrit 28.8 % 10/01/2018 WBC Count 5.4 thou/mcL 10/01/2018 Platelet Count 154 thou/mcL 10/01/2018 Prothrombin Time (PT) 31.8 Sec 10/01/2018 INR 2.68 10/01/2018 Sodium Level 134 mMol/L 10/01/2018 Potassium Level 4.5 mMol/L 10/01/2018 Creatinine 1.29 mg/dL 10/01/2018 BUN 36 mg/dL 10/01/2018 Thyroid Stimulating Hormone 1.36 mcIU/mL 09/22/2018 Total Bilirubin 0.6 mg/dL 09/26/2018 Hemoglobin A1c 9.0 % tl hgb 09/22/2018 B Type Natriuretic Peptide 140 Picogram/ml 09/23/2018 Glucose Level 196 mg/dL 10/01/2018 LIPIDS TESTING LAB RESULTS Lab Result Order Date Lipid Profile - Cholesterol 125 mg/dL 09/22/2018 Lipid Profile - Triglyceride 219 mg/dL 09/22/2018 HDL Cholesterol 27 mg/dL 09/22/2018 LDL Cholesterol 54 mg/dL 09/22/2018 VLDL 44 mg/dL 09/22/2018 X-RAY EXAMS: XR Chest 1 View - 09/22/18 05:18:30 See Radiology Report for More Detail Physician Signature Date/Time PATIENT EDUCATION [facility]; [facility] - Cardiac Surgery Discharge Instructions (CUSTOM); Mitral Valve Replacement; Low-Sodium Eating Plan; Heart Failure, [id number] GLUCOSE POCT Collected: 10/01/2018 Status: F Source: [facility] (UPLOADED) 2:11 PM HEALTH SYSTEM REPOSITORY TYPE CODE TESTS RESULT OUT OF REFERENCE UNITS RANGE LAB 2340-8(LOIN 70-110 mg/dL C) High Glucose 282 POCT-LAB Result Comment: Treatment ranges and critical values established by Patient Care Services. All follow-up actions were taken by Patient Care Services. Performed By: #### [id number] #### [facility] POINT OF CARE GLUCOSE POCT Collected: 10/01/2018 Status: F Source: [facility] (UPLOADED) 12:16 PM HEALTH SYSTEM REPOSITORY TYPE CODE TESTS RESULT OUT OF REFERENCE UNITS RANGE LAB 2340-8(LOIN 70-110 mg/dL C) High Glucose 278 POCT-LAB Result Comment: Treatment ranges and critical values established by Patient Care Services. All follow-up actions were taken by Patient Care Services. Performed By: #### [id number] #### [facility] POINT OF CARE PROGRESS NOTES Observed: 10/01/2018 Status: C Source: [facility] 10:52 AM HEALTH SYSTEM REPOSITORY Patient: LOVE PHELAN MRN: [id number] Age: 73 years Sex: Male : 1945 Associated Diagnoses: None Author: Sarah Bryan CNP Supervising Physician Comments Assessment and Plan 1. Mitral regurg: POD #5 Right anterior mini thoracotomy; Mitral valve replacement with 27 mm Medtronic Weldon tissue valve - Aspirin/BB; Continue coumadin for tissue MVR for 3 months. INR 2.6 (1.4 yesterday) - Senna and miralax, Advance diet; Still no BM. Will give one time dose of lactulose now - PEP therapy ordered with xoponex; Encouraged ambulation and IS; O2 off. 2. HTN -Increase BB to 50 mg PO BID -Hold amlodipine -Hold lisinopril 3. Hyperlipidemia - Statin therapy 4. Diabetes - SSI - Spoke with Dr. Hong. Will write prescription for Insulin regimen on discharge (Glipizide, Metformin, and Lantus + scheduled units with meals) 5. CKD stage III - SCr 1.29 this AM - Continue lasix and spironolactone per renal - UUP remains adequate 6. CAD - Was on plavix. Will be on coumadin for valve prophylaxis. Will continue coumadin and asa for three months. After three months will transition back to dual antiplatelet therapy with asa and plavix. Dispo: Discharge to home today with [facility]. INR to be drawn tomorrow. Discussed with Dr. Moreno Today: No value charted Yest: 106.8 kg/ 235 lbs 7.3 oz (Actual) (09/30/18 03:44) Admit: No value charted 10/01/18 09:32:00 Pulse Ox: 95 Ox. Delivery: Room air General: Up in the chair Neuro: Moves all extremities. Follows commands. A and O x 3 Vital signs: VSS. Incision: Right lateral thoracotomy healing well. No drainage Respiratory: LCTA. No wheezes or rales. No signs of distress. CXR: Reviewed Cardiovascular: Heart NSR; (+) Lower extremity edema; +2 radial and DP pulses Gasrointestinal: Abdomen is soft, non tender. (+) BM Integumentary: Skin warm dry and intact 10/01/18 05:54, Hemoglobin = 9.6 gm/dL L 10/01/18 05:54, Hematocrit = 28.8 % L 10/01/18 05:54, WBC Count = 5.4 thou/mcL 10/01/18 05:54, Platelet Count = 154 thou/mcL 10/01/18 05:54, PT = 31.8 Sec H 10/01/18 05:54, INR = 2.68 10/01/18 05:54, Sodium Level = 134 mMol/L L 10/01/18 05:54, Potassium Level = 4.5 mMol/L 10/01/18 05:54, Creatinine = 1.29 mg/dL 10/01/18 05:54, BUN = 36 mg/dL H 09/22/18 05:46, TSH = 1.36 mcIU/mL 09/26/18 03:52, Bilirubin Total = 0.6 mg/dL 09/26/18 18:21, Glucose POCT = 207 mg/dL H 10/01/18 05:54, Glucose Level = 196 mg/dL H 09/22/18 05:46, Hemoglobin A1c = 9.0 % tl hgb H hold coumadin restart at likely 2.5mg tomorrow inr rechk tomorrow oral lasix at d/c d/c home today PROGRESS NOTES Observed: 10/01/2018 Status: C Source: [facility] 10:34 AM [facility]ALTH SYSTEM REPOSITORY Patient: LOVE PHELAN Age: 73 years Sex: Male : 1945 Associated Diagnoses: None Author: Christi Barrera CNP 10/01/2018 1034 SUBJECTIVE: Pt is sitting up in bed with at b/s on RA in NAD. He ambulated in halls 4 time yesterday and once this AM with good toleration. Denies CP, pressure, tightness, palpitations, dyspnea, or thopnea, PND, LH, dizziness, edema, bleeding. OBJECTIVE: Temperature: 99.1 (10/01 07:28) Pulse: 77 (10/01 09:19) Respiration: 16 (10/01 07:28) BP: 144/73 (10/01 09:19) Pulse Ox: 95 (10/01 09:32) Oxygen Delivery: Room air (10/01 09:32) Pain Score: 0 (10/01 05:30) I and O Summary Begin Date: 09/30/18 00:00 End Date: 09/30/18 23:59 Input: 520 Output: 0 Stools: 0 Other Output: 300 Total Output: 300 I and O Difference: 220 Weight: Today: No value charted Yest: 106.8 kg/ 235 lbs 7.3 oz (Actual) (09/30/18 03:44) Admit: No value charted Physical Exam: alert, calm, NAD resp effort unlabored, LS CTAB RRR, S1-S2 nl. No JVD. Abd soft, nt, nd. No edema, pulses 2+ Skin warm/dry. No cyanosis. Alert and oriented, non-focal. Labs, meds, imaging reviewed Telemetry: SR CLAIRE 09/26/2018 SUMMARY Left ventricular cavity size is normal. Mild concentric left ventricular hypertrophy is noted. Mild to moderate asynchronous contraction of the septum noted. The regional wall motion abnormality noted is likely related to a paced rhythm. . The left ventricular ejection fraction is 45-50% per visual estimation. No significant dynamic LVOT obstruction is measured on doppler interrogation. MVR #27 Medtronic Weldon Mitral prosthesis appears well seated. Prosthetic leaflets appear normal grossly . A small perivalvular leak is appreciated at 7 oclock . Normally functioning mitral bioprosthesis is present. Cardiac cath 09/22/2018 - Patent 2010 stents in the left anterior descending artery and left circumflex artery. - The proximal RCA is occluded and is supplied by left to right collaterals (known since February 2010). - Markedly elevated LVEDP at 30 mmHg. - Markedly elevated PCWP at 25 mmHg. - The right atrial, right ventricular and pulmonary arterial pressures are at the upper limit of normal. - Normal cardiac output. Impression: -Acute diastolic heart failure; likely secondary to severe organic MR with likely posterior flail leaflet -Severe mitral regurgitation s/p right anterior mini thoracotomy with 27 mm Medtronic Weldon tissue valve 09/26 -Elevated troponin; 0.07. In setting of acute CHF, renal insufficiency of unknown chronicity, and underlying CAD. -Chronic ischemic heart disease; s/p NH and multivessel stenting 2009. He had negative stress test 2014. Cath 09/22 with stable coronary anatomy. -Carotid artery disease -HTN, uncontrolled. Pt reports difficult to control BP at baseline requiring ongoing up-titration of regimen. At home may trend 130-150s mmHg systolic. -HLD -DM2 -CKD stage III: Nephrology following. -Obesity PLAN: -Post-op mgmt, supportive care. -Continue ASA, statin, BB, and lasix therapy. -Continue warfarin. -Increase activity, DC planning. -Pt plans to f/u with primary evp in [place], [place], Dr. Blanchard. Marcus Barrera CNP I personally saw and evaluated the patient. Chart, medications, and laboratories reviewed. Agree with assessment and plan above by Christi Barrera CNP. OK for discharge from a cardiac standpoint. Continue aspirin, statin, beta-brisa. Alexander Alejandro MD [facility] 10/01/2018 12:08 Labs - Last 36 hours (Max 2 / lab test) CHEMISTRY Sodium 134 (10/01 05:54) 133 (09/30 05:53) Potassium 4.5 (10/01 05:54) 4.4 (09/30 05:53) Chloride 99 (10/01 05:54) 100 (09/30 05:53) CO2 28 (10/01 05:54) 27 (09/30 05:53) Glucose 196 (10/01 05:54) 253 (09/30 05:53) Glucose POCT No result BUN 36 (10/01 05:54) 44 (09/30 05:53) Creatinine 1.29 (10/01 05:54) 1.42 (09/30 05:53) Calcium Total 7.9 (10/01 05:54) 7.8 (09/30 05:53) Magnesium 2.1 (10/01 05:54) 2.3 (09/30 05:53) HEMATOLOGY WBC 5.4 (10/01 05:54) 4.8 (09/30 05:53) RBC 3.45 (10/01 05:54) 3.32 (09/30 05:53) Hb 9.6 (10/01 05:54) 9.3 (09/30 05:53) Hematocrit 28.8 (10/01 05:54) 27.9 (09/30 05:53) Platelets 154 (10/01 05:54) 121 (09/30 05:53) MCV 83.5 (10/01 05:54) 84.0 (09/30 05:53) MCH 27.9 (10/01 05:54) 28.0 (09/30 05:53) RDW 14.7 (10/01 05:54) 14.6 (09/30 05:53) MCHC 33.4 (10/01 05:54) 33.3 (09/30 05:53) Neutrophil Ab 3.70 (10/01 05:54) 3.20 (09/30 05:53) Monocyte Ab 0.50 (10/01 05:54) 0.50 (09/30 05:53) Eosinophil Ab 0.10 (10/01 05:54) 0.10 (09/30 05:53) Basophil Ab 0.00 (10/01 05:54) 0.00 (09/30 05:53) Lymphocyte Ab 1.00 (10/01 05:54) 0.90 (09/30 05:53) COAGULATION INR 2.68 (10/01 05:54) 1.48 (09/30 05:53) Prothrombintime (PT) 31.8 Sec (10/01 05:54) 17.2 Sec (09/30 05:53) OTHER LABS Anion Gap 7.0 mMol/L (10/01 05:54) 6.0 mMol/L (09/30 05:53) GFR Est. Non 55 mL/min (10/0154) 44 mL/min (09/29 06:07) GFR Est. Berta >60 mL/min (10/01 05:54) 53 mL/min (09/29 06:07) MPV 8.6 FL (10/0154) 8.9 FL (09/30 05:53) Neutrophil 67.9 % (10/01 05:54) 66.4 % (09/30 05:53) Lymphocyte 19.4 % (10/01 05:54) 19.5 % (09/30 05:53) Monocyte 9.2 % (10/01 05:54) 10.2 % (09/30 05:53) Eosinophil 2.7 % (10/01 05:54) 3.1 % (09/30 05:53) Basophil 0.8 % (10/0154) 0.8 % (09/30 05:53) Inpatient Medications: Warfarin 2.5 mg Tab (Coumadin GEq) 2.5 mg = 1 Tab, PO, Tab, Daily-Warf, x 30 Day(s), 10/02/18 18:00:00 EST, Recent Bioprosthetic AVR/MVR (INR: 2-3) , Comment: Review most current INR before administering. If INR is grea Last Dose: Not Given Metoprolol 25 mg Tab (Lopressor GEq) 12.5 mg = 0.5 Tab, PO, Tab, Once,, 10/01/18 9:54:00 EST Last Dose: Not Given GlipiZIDE XL 10 mg Tab (Glucotrol XL GEq) 10 mg = 1 Tab, PO, Tab ER, w/bkfst+din,, x 30 Day(s), 09/30/18 17:32:00 EST , Comment: Do Not Chew Or Crush Last Dose: 10/01/18 09:20:00 MetFORMIN SR 500 mg Tab (Glucophage XR GEq) 1,000 mg = 2 Tab, PO, Tab ER, w/breakfast,, x 30 Day(s), 09/30/18 9:30:00 EST , Comment: Metformin 1000mg BID, first dose now. Last Dose: 10/01/18 09:18:00 Furosemide 40 mg Tab (Lasix GEq) 40 mg = 1 Tab, PO, Tab, Daily,, x 30 Day(s), 09/29/18 11:33:00 EST Last Dose: 10/01/18 09:19:00 Spironolactone 25 mg Tab (Aldactone GEq) 50 mg = 2 Tab, PO, Tab, Daily,, x 30 Day(s), 09/29/18 11:33:00 EST Last Dose: 10/01/18 09:19:00 Warfarin Therapy Each, Misc, Daily-Warf Last Dose: 09/30/18 17:55:00 Insulin U100 glargine per unit MDV (Lantus GEq) 50 Unit = 0.5 mL, Subcut, Inject, BID,, x 30 Day(s), 09/28/18 9:08:00 EST , Comment: Do Not Mix With Other InsulinsDo Not Administer IVAdminister Subcutaneously Last Dose: 10/01/18 09:20:00 Aspirin 81 mg Tab EC (Ecotrin GEq) 81 mg = 1 Tab, PO, Tab EC, Daily, x 30 Day(s), 09/27/18 11:20:00 EST , Comment: hold for platelet count less than 75,000 Last Dose: 10/01/18 09:20:00 Pantoprazole 40 mg Tab EC (Protonix GEq) 40 mg = 1 Tab, PO, Tab EC, ac bkfst,, x 30 Day(s), 09/27/18 11:20:00 EST , Comment: Do Not Chew, Crush Or Cut Tablet Last Dose: 10/01/18 05:47:00 Insulin U100 Lispro per unit MDV (HumaLOG GEq) Standard Scale, Inject, Subcut,, ac+bedtime, x 30 Day(s), 09/28/18 7:00:00 EST , Comment: << Sliding Scale Comments >> 0 - 60 Give 12.5 grams (25 mL) of Dextrose 50% for hypoglycemi Last Dose: 10/01/18 06:40:00 Heparin 5,000 Units/mL Vial 1 mL (NT) 5,000 Unit = 1 mL, Subcut, Inject, Q8h, x 30 Day(s), 09/27/18 11:20:00 EST , Comment: Check daily for signs of bleeding and notify physician if bleeding noted. Last Dose: 10/01/18 05:47:00 Levalbuterol 0.63 mg/3 mL Inh Inna (Xopenex GEq) 0.63 mg = 3 mL, Nebul, Inna, Resp QID,, x 30 Day(s), 09/27/18 11:20:00 EST Last Dose: Not Given Atorvastatin 20 mg Tab (Lipitor GEq) 20 mg = 1 Tab, PO, Tab, Daily,, x 30 Day(s), 09/27/18 8:08:00 EST Last Dose: 10/01/18 09:19:00 Metoprolol 50 mg Tab (Lopressor GEq) 50 mg = 1 Tab, PO, Tab, Q12h,, x 30 Day(s), 09/27/18 8:11:00 EST Last Dose: 10/01/18 09:19:00 OxyCODONE/Acetaminophen 5 mg/325 mg Tab (Percocet GEq) 2 Tab, PO, Tab, Q4h, x 30 Day(s), PRN Pain - Severe, 09/27/18 11:20:00 EST , Comment: Maximum 4 Gm Acetaminophen/Day for Adults Last Dose: 09/29/18 21:08:00 HYDROcodone/Acetaminophen 5 mg/325 mg Tab ([place] 5 GEq) 2 Tab, PO, Tab, Q4h, x 30 Day(s), PRN Pain - Moderate, 09/27/18 11:20:00 EST , Comment: Maximum 4 Gm Acetaminophen/Day for Adults Last Dose: 09/28/18 20:39:00 Acetaminophen 325 mg Tab (Tylenol GEq) 650 mg = 2 Tab, PO, Tab, Q4h, PRN, See Comments, x 30 Day(s), 09/27/18 11:20:00 EST , Comment: PRN for headache or temperature greater than 101.4 F. Maximum 4 Gm Acetaminophen/Day Last Dose: Not Given Nitroglycerin Subl Tab 0.4 mg #25 (Nitrostat GEq) 0.4 mg = 1 Tab, Subl, Tab Subl, Q5min, PRN, See Comments, x 3 Time(s)/Dose(s), 09/27/18 11:20:00 EST Last Dose: Not Given Magnesium Hydroxide 8% Susp 30 mL (Milk of Magnesia) 30 mL, PO, Susp, PRN, x 30 Day(s), PRN Constipation, 2,400 mg, 09/27/18 11:20:00 EST Last Dose: 09/29/18 20:17:00 Bisacodyl 10 mg Suppos (Dulcolax GEq) 10 mg = 1 Suppos, Rectal, Suppos, Daily, PRN, Constipation, x 30 Day(s), 09/27/18 11:20:00 EST Last Dose: Not Given Mylanta/Maalox Plus Susp 30 mL (GEq) 30 mL, PO, Susp, PRN, x 30 Day(s), PRN Indigestion/Heartburn, 09/27/18 11:20:00 EST , Comment: SHAKE WELL Last Dose: Not Given HYDROcodone/Acetaminophen 5 mg/325 mg Tab ([place] 5 GEq) 1 Tab, PO, Tab, Q4h, x 30 Day(s), PRN Pain - Mild, 09/27/18 11:20:00 EST , Comment: Maximum 4 Gm Acetaminophen/Day for Adults Last Dose: Not Given Glucagon 1 mg Vial (Glucagen GEq) 1 mg, Subcut, Inject, PRN, PRN, See Comments, x 30 Day(s), 09/27/18 11:20:00 EST , Comment: If IV access is not obtainable: For hypoglycemia blood glucose less than 60 mg/dL and patient Last Dose: Not Given Current IV Orders: Furosemide 10 mg/mL Vial 4 mL (Lasix GEq) 40 mg = 4 mL, IV Push, Inject, Once,, 10/01/18 7:24:00 EST , Comment: Administer at a rate of 20 mg/min (for IV Push) Last Dose: Not Given Atropine 0.1 mg/mL Syringe 10 mL 0.5 mg = 5 mL, IV Push, Inject, Q3min, PRN, See Comments, x 6 Time(s)/Dose(s), 09/27/18 11:20:00 EST , Comment: May repeat doses in 3 - 5 minutes up to a total of 3 mg. If pacing wires Last Dose: Not Given Ondansetron 2 mg/mL Inj 2 mL (Zofran GEq) 4 mg = 2 mL, IV Push, Inject, Q8h, PRN, Nausea/Vomiting, x 30 Day(s), 09/27/18 11:20:00 EST , Comment: Administer IV Over 2 Minutes Last Dose: Not Given Sodium Chloride 0.9% PF Flush Syringe 10 mL 10 mL, IV Push, Inject, Q8h, x 30 Day(s), PRN See Comments, 09/27/18 11:20:00 EST , Comment: Flush unused sideport introducer, discontinue when sideport removed. Last Dose: Not Given Sodium Chloride 0.9% PF Flush Syringe 10 mL 2.5 mL, IV Push, Inject, Q8h, x 30 Day(s), PRN See Comments, 09/27/18 11:20:00 EST , Comment: Flush unused peripheral IV site access Last Dose: Not Given Amiodarone 150 mg = 3 mL, IVPB, Once, PRN, See Comments, 09/27/18 11:20:00 EST Last Dose: Not Given Dextrose 50% Syringe 25 Gm/50 mL 12.5 Gm = 25 mL, IV Push, Inject, PRN, PRN, See Comments, x 30 Day(s), 09/27/18 11:20:00 EST Last Dose: Not Given Sodium Chloride 0.9% PF Flush Syringe 10 mL 10 mL, IV Push, Inject, Q8h, x, PRN See Comments, 09/25/18 19:49:00 EST Last Dose: 09/26/18 15:58:00 Sodium Chloride 0.9% PF Flush Syringe 10 mL 20 mL, IV Push, Inject, PRN, x 30 Day(s), PRN See Comments, 09/25/18 19:49:00 EST Last Dose: Not Given Sodium Chloride 0.9% PF Flush Syringe 10 mL 20 mL, IV Push, Inject, PRN, x 30 Day(s), PRN See Comments, 09/25/18 19:49:00 EST Last Dose: Not Given Dextrose 5%/NaCl 0.2% 500 mL 500 ml, 25 mL/hr, IV, x 30 Day(s), 500 mL, Infusion, 09/27/18 11:20:00 EST, 101.9 kg Last Dose: Not Given Amiodarone 450 mg [1 mg/min] + Sodium Chlor 0.9% Non- PVC 250 mL 250 ml, 33.33 mL/hr, IV, x 30 Day(s),, See Comments, 250 mL, 09/27/18 11:20:00 EST, 101.9 kg , Comment: GOAL EFFECT: Suppression of arrhythmia * USUAL INFUSION REGIMEN: 1 mg/min x 6 h Last Dose: Not Given GLUCOSE POCT Collected: 10/01/2018 Status: F Source: [facility] (UPLOADED) 9:58 AM HEALTH SYSTEM REPOSITORY TYPE CODE TESTS RESULT OUT OF REFERENCE UNITS RANGE LAB 2340-8(LOIN 70-110 mg/dL C) High Glucose 291 POCT-LAB Result Comment: Treatment ranges and critical values established by Patient Care Services. All follow-up actions were taken by Patient Care Services. Performed By: #### [id number] #### [facility] POINT OF CARE PROGRESS NOTES Observed: 10/01/2018 Status: F Source: [employer] 9:38 AM HEALTH SYSTEM REPOSITORY Patient: LOVE PHELAN MRN: [id number] Age: 73 years Sex: Male : 1945 Associated Diagnoses: None Author: Stephy AMBRIZ, Nica Dumont Impression and Plan IMPRESSION: Chronic kidney disease stage III- UPCR 0.9g/g and ultrasound w/ kidneys 13cm bilat presumably with diabetic nephropathy. Hypertension. Type 2 diabetes mellitus. Coronary artery disease status post multivessel PCI in 2009 as above. Severe mitral regurgitation, s/p MVR 09/26. PLAN: - Urine output not being recorded accurately, renal funciton stable. I will give him additional Lasix 40mg IV today. He should go home on Lasix 40mg daily and spironolactone 50mg daily. - Labs in 1-2 weeks, and diuretics can be adjusted based on the results and his clinical status. OK to be discharged from renal standpoint. Seun Keyes MD [facility], [facility]. Pager: [phone] Subjective seen this pm, feels well, denies SOB, off oxygen, having loose stools Health Status Allergies Allergic Reactions (Selected) Mild Doxycycline- Hives. Objective Last Charted Vital Signs Temperature: 99.1 (10/01 07:28) Pulse: 77 (10/01 09:19) Respiration: 16 (10/01 07:28) BP: 144/73 (10/01 09:19) Pulse Ox: 95 (10/01 09:32) Oxygen Delivery: Room air (10/01 09:32) Pain Score: 0 (10/01 05:30) EXAM: see vitals below General - somnolent, oriented x3, no acute distress Chest/Respiratory - lungs clear Cardiovascular - Normal rate, regular rhythm without murmurs Abdomen/Gastrointestinal - Soft, nontender, nondistended, (+) bowel sounds. Musculoskeletal - No synovitis. No joint effusions or erythemia in knees, elbows, hands, wrists Extremities - trace edema. Neuropsych -awake and oriented Results Review Labs - Last 36 hours (Max 2 / lab test) CHEMISTRY Sodium 134 (10/01 05:54) 133 (09/30 05:53) Potassium 4.5 (10/01 05:54) 4.4 (09/30 05:53) Chloride 99 (10/01 05:54) 100 (09/30 05:53) CO2 28 (10/01 05:54) 27 (09/30 05:53) Glucose 196 (10/01 05:54) 253 (09/30 05:53) Glucose POCT No result BUN 36 (10/01 05:54) 44 (09/30 05:53) Creatinine 1.29 (10/01 05:54) 1.42 (09/30 05:53) Calcium Total 7.9 (10/01 05:54) 7.8 (09/30 05:53) Magnesium 2.1 (10/01 05:54) 2.3 (09/30 05:53) HEMATOLOGY WBC 5.4 (10/01 05:54) 4.8 (09/30 05:53) RBC 3.45 (10/01 05:54) 3.32 (09/30 05:53) Hb 9.6 (10/01 05:54) 9.3 (09/30 05:53) Hematocrit 28.8 (10/01 05:54) 27.9 (09/30 05:53) Platelets 154 (10/01 05:54) 121 (09/30 05:53) MCV 83.5 (10/01 05:54) 84.0 (09/30 05:53) MCH 27.9 (10/01 05:54) 28.0 (09/30 05:53) RDW 14.7 (10/01 05:54) 14.6 (09/30 05:53) MCHC 33.4 (10/01 05:54) 33.3 (09/30 05:53) Neutrophil Ab 3.70 (10/01 05:54) 3.20 (09/30 05:53) Monocyte Ab 0.50 (10/01 05:54) 0.50 (09/30 05:53) Eosinophil Ab 0.10 (10/01 05:54) 0.10 (09/30 05:53) Basophil Ab 0.00 (10/01 05:54) 0.00 (09/30 05:53) Lymphocyte Ab 1.00 (10/01 05:54) 0.90 (09/30 05:53) COAGULATION INR 2.68 (10/01 05:54) 1.48 (09/30 05:53) Prothrombintime (PT) 31.8 Sec (10/01 05:54) 17.2 Sec (09/30 05:53) OTHER LABS Anion Gap 7.0 mMol/L (10/01 05:54) 6.0 mMol/L (09/30 05:53) GFR Est. Non 55 mL/min (10/01 05:54) 44 mL/min (09/29 06:07) GFR Est. Berta >60 mL/min (10/01 05:54) 53 mL/min (09/29 06:07) MPV 8.6 FL (10/01 05:54) 8.9 FL (09/30 05:53) Neutrophil 67.9 % (10/01 05:54) 66.4 % (09/30 05:53) Lymphocyte 19.4 % (10/01 05:54) 19.5 % (09/30 05:53) Monocyte 9.2 % (10/01 05:54) 10.2 % (09/30 05:53) Eosinophil 2.7 % (10/01 05:54) 3.1 % (09/30 05:53) Basophil 0.8 % (10/01 05:54) 0.8 % (09/30 05:53) GLUCOSE POCT Collected: 10/01/2018 Status: F Source: [facility] (UPLOADED) 8:22 AM HEALTH SYSTEM REPOSITORY TYPE CODE TESTS RESULT OUT OF REFERENCE UNITS RANGE LAB 2340-8(LOIN 70-110 mg/dL C) High Glucose 211 POCT-LAB Result Comment: Treatment ranges and critical values established by Patient Care Services. All follow-up actions were taken by Patient Care Services. Performed By: #### [id number] #### [facility] POINT OF CARE PROGRESS NOTES Observed: 10/01/2018 Status: F Source: [facility] 8:01 AM HEALTH SYSTEM REPOSITORY Patient: LOVE PHELAN MRN: [id number] Age: 73 years Sex: Male : 1945 Associated Diagnoses: None Author: Cristhian Hong DO Assessment Diagnosis/Impression/Plan: Medicine Sign-on Mr Love Phelan is a 73-year-old male with past medical history to include CAD status post stents, hypertension, hyperlipidemia, insulin-dependent diabetes, newly diagnosed CKD stage III, who p resents to [facility] 09/21/2018 for dyspnea Interval workup notable for NSTEMI with echo findings of severe mitral regurgitation Would undergo MVR Saturday09/26/18, ( Mitral valve replacement with 27 mm Medtronic Weldon tissue valve.) Attending changed to CTS Dr. Moreno. Medicine team is back onboard for BG management #Uncontrolled IDDM Discussed home regimen with pt, apparently on lantus 64U sc BID at home. Also metformin and Glipizide. Now eating less and on ADA diet in- house so would not do basal 64U sc BID. Prior insulin gtt noted. Daily insulin needs ~ 120-140 U BG last evening 210, 184, 172 On discharge: Lantus 50 U SC BID Insulin Aspart 8 U SC TID with meals Metformin 1000mg BID - with advise to HOLD evening dose if nausea/vomiting or diarrhea. Glipizide 10mg BID Insulin supplies, glucometer, lancets, test strips, insulin needles prescribed as well. d/w CTS team, plan dc today and agree #Bioprosthetic mitral valve per CTS, noted initiation of coumadin, plan 3 months coumadin and asa; then stop coumadin and transition to DAPT #Acute hypoxemic respiratory failure-secondary to diastolic CHF with severe mitral regurgitation CHF treatment outlined, continue gentle diuresis as hemodynamics permit s/p MVR 09/26/18 Continue supplemental oxygen for goal saturation greater than 90%, wean as able Improved to RA #HFpEF (EF60%) echo 09/22/18, severe mitral regurgitation with flail portion anterior leaflet Judicious diuresis as hemodynamics permit, monitor I's and O's, volume status s/p MVR 09/26/18 190cc, agree with additional lasix to optimize resp status, Cr steady. 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 Given decompensated CHF secondary to severe mitral regurgitation, he underwent necessary CTA of the chest and abdomen and pelvis with contrast 09/24/18 Avoid other nephrotoxins as able Cr steady, lasix 40 and spironolactone 40 daily per nephro FULL CODE_ ADOD today per primary team - CTS Code Status Full Resuscitation Comment: Provide all therapy to prevent/treat cardiac or respiratory arrest. Full Resuscitation Comment: Provide all therapy to prevent/treat cardiac or respiratory arrest. Full Resuscitation Comment: Provide all therapy to prevent/treat cardiac or respiratory arrest. Chief Complaint _CHF exac Health Status Allergies Allergic Reactions (Selected) Mild Doxycycline- Hives. Medication List (Selected) Inpatient Medications Ordered Amiodarone Additive* 450 mg [1 mg/min] + Sodium Chloride 0.9% 250 mL: 33.33 mL/hr, IV, Stop: 10/27/18 11:19:00 EST Atropine 0.1 mg/mL Syringe 10 mL: 0.5 mg, IV Push, Q3min, PRN: See Comments Cordarone Inj*: 150 mg, 3 mL, 600 mL/hr, IVPB, Once, PRN: See Comments Coumadin Therapy Confirm Order Daily*: 1 Each, Misc, Daily-Warf Dextrose 5% with 0.2% NaCl 500 mL: 25 mL/hr, IV, Stop: 10/27/18 11:19:00 EST Dextrose 50% Syringe*: 12.5 Gm, IV Push, PRN, PRN: See Comments Dulcolax*: 10 mg, Rectal, Daily, PRN: Constipation GlipiZIDE XL: 10 mg, PO, w/bkfst+din Glucagon: 1 mg, Subcut, PRN, PRN: See Comments Insulin Lispro Sliding Scale (HumaLOG)*: Standard Scale, Subcut, ac+bedtime Lantus LONG-Actin Unit, Subcut, BID Lasix Inj: 40 mg, IV Push, Once Lasix: 40 mg, PO, Daily Lopressor: 50 mg, PO, Q12h MetFORMIN XR: 1,000 mg, PO, w/breakfast Metoprolol Tartrate: 12.5 mg, PO, Once Milk of Magnesia 8%: 2,400 mg, PO, PRN, PRN: Constipation Mylanta/Maalox Plus*: 30 mL, PO, PRN, PRN: Indigestion/Heartburn Nitrostat*: 0.4 mg, Subl, Q5min, PRN: See Comments [place] 5 mg/325 mg*: 2 Tab, PO, Q4h, PRN: Pain - Moderate [place] 5 mg/325 m Tab, PO, Q4h, PRN: Pain - Mild Normal Saline Flush*: 10 mL, IV Push, Q8h, PRN: See Comments Normal Saline Flush*: 2.5 mL, IV Push, Q8h, PRN: See Comments Percocet 5 mg/325 mg*: 2 Tab, PO, Q4h, PRN: Pain - Severe Protonix: 40 mg, PO, ac bkfst Saline Flush*: 10 mL, IV Push, Q8h, PRN: See Comments Saline Flush*: 20 mL, IV Push, PRN, PRN: See Comments Saline Flush*: 20 mL, IV Push, PRN, PRN: See Comments Tylenol*: 650 mg, PO, Q4h, PRN: See Comments Xopenex Inh Inna: 0.63 mg, Nebul, Resp QID Zofran Inj*: 4 mg, IV Push, Q8h, PRN: Nausea/Vomiting aspirin: 81 mg, PO, Daily atorvastatin: 20 mg, PO, Daily heparin: 5,000 Unit, Subcut, Q8h spironolactone: 50 mg, PO, Daily warfarin: 2.5 mg, PO, Daily-Warf Prescriptions Prescribed Diabetic Braggs: See Instructions, To administer insulin after each meal and in the evening. Dx: Insulin-dependant diabetes, 120 Each, 0 Refill(s) Glucometer: See Instructions, Glucometer Check blood glucose 3 times a day after meals Dx: Insulin-dependant diabetes, 1 Each, 0 Refill(s) Lancets: See Instructions, Check blood glucose 3 times a day after meals Dx: Insulin-dependant diabetes, 100 Each, 0 Refill(s) Test Strips: See Instructions, Check blood glucose 3 times a day after meals Dx: Insulin-dependant diabetes, 100 Strip, 0 Refill(s) furosemide 40 mg oral tablet: 1 Tab, PO, Daily, for 30 Day(s), 30 Tab, 0 Refill(s) glipiZIDE 10 mg oral tablet, extended release: 1 Tab, PO, BID, for 30 Day(s), 60 Tab, 0 Refill(s) insulin aspart 100 units/mL injectable solution: 8 Unit, Subcut, ac TID, for 30 Day(s), Take before each meal. Please HOLD if BG<80, 4.5 mL, 0 Refill(s) insulin glargine 100 unit/ml subcutaneous solution: 50 Unit, Subcut, BID, for 30 Day(s), 30 mL, 0 Refill(s) metFORMIN 1000 mg oral tablet: 1 Tab, PO, BID, for 30 Day(s), Take with meals. HOLD evening dose if any nausea/vomiting or diarrhea, 60 Tab, 0 Refill(s) metoprolol tartrate 50 mg oral tablet: 1 Tab, PO, Q12h, for 30 Day(s), 60 Tab, 1 Refill(s) spironolactone 25 mg oral tablet: 2 Tab, PO, Daily, for 30 Day(s), 60 Tab, 0 Refill(s) warfarin 2.5 mg oral tablet: 1 Tab, PO, Daily-Warf, for 30 Day(s), 30 Tab, 1 Refill(s) Documented Medications Documented NovoLOG FlexPen 100 unit/ml subcutaneous solution: 32 Unit, Subcut, TID, Each, 0 Refill(s) Plavix 75 mg oral tablet: 1 Tab, PO, Daily, Each, 0 Refill(s) aspirin 81 mg oral tablet: 1 Tab, PO, Daily, Each, 0 Refill(s) atorvastatin 20 mg oral tablet: 1 Tab, PO, Daily, Each, 0 Refill(s) Subjective _Pt s/e, supine in bed, went for walk earlier. Eager to go home. Affirms no f/c/cp/shob/nvd. Did have multiple bm yesterday. Objective Last Charted Vital Signs Temperature: 99.1 (10/01 07:28) Pulse: 77 (10/01 09:19) Respiration: 16 (10/01 07:28) BP: 144/73 (10/01 09:19) Pulse Ox: 95 (10/01 09:32) Oxygen Delivery: Room air (10/01 09:32) Pain Score: 0 (12/05 05:30) Height: 108.34 cm /42.65 in (Type not Indicated) (09/21/2018 18:08:00) Weight: 106.8 kg/ 235 lbs 7.3 oz (Actual) (09/30/2018 03:44:28) Body Surface Area: 1.79 m2 Body Mass Index: 90.99 Intake and Output (Previous 24Hrs) I and O Summary Begin date: 09/30 11: End date: 10/01 11:03 24 Hour Intake: 640.00 Output: 300.00 Balance: 340.00 Last BM: 09/30/18 17:00 Physical Exam: General: AO, appears stated age HEENT: ATNC, sclerae nonicteric, mmm Neck: Soft, trachea midline Heart: S1 S2, no murmur, no JVD Lungs: coarse bs, better air mvt, no crackles Abdomen/GI: soft, nontender, nondistended. Extremity/Musculoskeletal: Normal muscle tone, trace if any pitting edema Neurologic: No gross focal weakness. No facial droop appreciated. Skin: Visible skin warm, dry, intact Results Review Labs - Last 36 hours (Max 2 / lab test) CHEMISTRY Sodium 134 (10/01 05:54) 133 (09/30 05:53) Potassium 4.5 (10/01 05:54) 4.4 (09/30 05:53) Chloride 99 (10/01 05:54) 100 (09/30 05:53) CO2 28 (10/01 05:54) 27 (09/30 05:53) Glucose 196 (10/01 05:54) 253 (09/30 05:53) Glucose POCT No result BUN 36 (10/01 05:54) 44 (09/30 05:53) Creatinine 1.29 (10/01 05:54) 1.42 (09/30 05:53) Calcium Total 7.9 (10/01 05:54) 7.8 (09/30 05:53) Magnesium 2.1 (10/01 05:54) 2.3 (09/30 05:53) HEMATOLOGY WBC 5.4 (10/01 05:54) 4.8 (09/30 05:53) RBC 3.45 (10/01 05:54) 3.32 (09/30 05:53) Hb 9.6 (10/01 05:54) 9.3 (09/30 05:53) Hematocrit 28.8 (10/01 05:54) 27.9 (09/30 05:53) Platelets 154 (10/01 05:54) 121 (09/30 05:53) MCV 83.5 (10/01 05:54) 84.0 (09/30 05:53) MCH 27.9 (10/01 05:54) 28.0 (09/30 05:53) RDW 14.7 (10/01 05:54) 14.6 (09/30 05:53) MCHC 33.4 (10/01 05:54) 33.3 (09/30 05:53) Neutrophil Ab 3.70 (10/01 05:54) 3.20 (09/30 05:53) Monocyte Ab 0.50 (10/01 05:54) 0.50 (09/30 05:53) Eosinophil Ab 0.10 (10/01 05:54) 0.10 (09/30 05:53) Basophil Ab 0.00 (10/01 05:54) 0.00 (09/30 05:53) Lymphocyte Ab 1.00 (10/01 05:54) 0.90 (09/30 05:53) COAGULATION INR 2.68 (10/01 05:54) 1.48 (09/30 05:53) Prothrombintime (PT) 31.8 Sec (10/01 05:54) 17.2 Sec (09/30 05:53) OTHER LABS Anion Gap 7.0 mMol/L (10/01 05:54) 6.0 mMol/L (09/30 05:53) GFR Est. Non 55 mL/min (10/01 05:54) 44 mL/min (09/29 06:07) GFR Est. Berta >60 mL/min (10/01 05:54) 53 mL/min (09/29 06:07) MPV 8.6 FL (10/01 05:54) 8.9 FL (09/30 05:53) Neutrophil 67.9 % (10/01 05:54) 66.4 % (09/30 05:53) Lymphocyte 19.4 % (10/01 05:54) 19.5 % (09/30 05:53) Monocyte 9.2 % (10/01 05:54) 10.2 % (09/30 05:53) Eosinophil 2.7 % (10/01 05:54) 3.1 % (09/30 05:53) Basophil 0.8 % (10/01 05:54) 0.8 % (09/30 05:53) Blood 10/01/18 09:58:00 Glucose POCT-LA: 291 Comment: 09/26/18 18:21:00 Hematocrit POCT: 34 Hemoglobin POCT: 11.2 Sodium POCT: 141 Potassium POCT: 4.6 Calcium Ionized: 1.21 Lactate POCT: 1.6 09/22/18 12:22:00 Activated Clott: 188 Comment: Microbiology No results found General Results Lab/diagnostic studies personally reviewed. Supervising Physician Comments . Diagnosis Documentation . PROGRESS NOTES Observed: 10/01/2018 Status: F Source: [employer] 7:36 AM HEALTH SYSTEM REPOSITORY Patient: LOVE PHELAN MRN: ([id number] Age: 73 years Sex: Male : 1945 Associated Diagnoses: None Author: Cristhian Hong DO Comments BG reviewed, improving - 210, 184, 172 from last evening. Currently Lantus 50U SC BID restarted metformin 1000mg BID and glipizide 10mg ER BID Cr steady. Will stop 8U SC TID with meals Cont Q2H accuchecks while awake for now. Supervising Physician Comments GLUCOSE POCT Collected: 10/01/2018 Status: F Source: [employer] (UPLOADED) 6:21 AM HEALTH SYSTEM REPOSITORY TYPE CODE TESTS RESULT OUT OF REFERENCE UNITS RANGE LAB 2340-8(LOIN 70-110 mg/dL C) High Glucose 199 POCT-LAB Result Comment: Treatment ranges and critical values established by Patient Care Services. All follow-up actions were taken by Patient Care Services. Performed By: #### 2430-8 #### [facility] CBC WITH DIFFERENTIAL Collected: 10/01/2018 Status: F Source: [employer] 5:54 AM HEALTH SYSTEM REPOSITORY TYPE CODE TESTS RESULT OUT OF REFERENCE UNITS RANGE LAB 99586-2(LO 39.0-49.0 % INC) Low Hematocrit 28.8 LAB 73873-8(LO 142-424 thou/mcL INC) Normal Platelet Count 154 LAB 42611-4(LO 0.0-12.0 % INC) Normal Monocyte 9.2 LAB 711-2(LOIN 0.00-0.70 thou/mcL C) Normal Eosinophil 0.10 Absolute LAB 33049-0(LO 11.0-14.8 % INC) RDW Normal 14.7 LAB 39531-5(LO 0.0-2.0 % INC) Normal Basophil 0.8 LAB 742-7(LOIN 0.00-0.90 thou/mcL C) Normal Monocyte 0.50 Absolute LAB 718-7(LOIN 13.5-17.5 gm/dL C) Low Hemoglobin 9.6 LAB 90743-0(LO 22.0-44.0 % INC) Low Lymphocyte 19.4 LAB 731-0(LOIN 1.00-4.80 thou/mcL C) Normal Lymphocyte 1.00 Absolute LAB 48658-4(LO 32.0-36.0 gm/dL INC) MCHC Normal 33.4 LAB 02703-0(LO 4.6-10.2 thou/mcL INC) WBC Normal Count 5.4 LAB 07735-5(LO 0.0-7.0 % INC) Normal Eosinophil 2.7 LAB 10135-3(LO 40.0-70.0 % INC) Normal Neutrophil 67.9 LAB 70268-7(LO 27.0-34.0 Picograms INC) MCH Normal 27.9 LAB 751-8(LOIN 1.80-7.70 thou/mcL C) Normal Neutrophil 3.70 Absolute LAB 704-7(LOIN 0.00-0.20 thou/mcL C) Normal Basophil 0.00 Absolute LAB 17285-9(LO 4.30-5.70 million/mcL INC) Low Red Blood Cell 3.45 Count LAB 19362-1(LO 80.0-97.0 FL INC) MCV Normal 83.5 LAB 58037-2(LO 6.2-12.1 FL INC) MPV Normal 8.6 Performed By: #### 51884-1 #### [facility] [address], [place] PROTHROMBIN TIME Collected: 10/01/2018 Status: F Source: [employer] 5:54 AM [facility]ALTH SYSTEM REPOSITORY TYPE CODE TESTS RESULT OUT OF RANGE REFERENCE UNITS LAB 5902-2(HANY 9.3-12.4 Sec NC) High Prothrombin Time (PT) 31.8 LAB 68247-7(LO INC) INR Normal 2.68 Result Comment: The recommended therapeutic INR range for most cardiac indications is 2.0-3.0. For high intensity therapy(ie.mechanical heart valves), the recommended range is 2.5-3.5. Performed By: #### 5902-2 #### [facility] [address], [place] GFRAA Collected: 10/01/2018 Status: F Source: [facility] 5:54 AM [facility]ALTH SYSTEM REPOSITORY TYPE CODE TESTS RESULT OUT OF RANGE REFERENCE UNITS LAB 38768-9(LO mL/min INC) GFR Normal Estimated >60 Result Comment: The MDRD equation has not been validated for those over 70 years, women, patients with serious co-morbid conditions, or with extremes of body size, muscle mass of nutritional status. Performed By: #### 39628-0, 03085-1t9, 56233-8, 26374-7 #### [facility] [address], [place] GFRBB Collected: 10/01/2018 Status: F Source: [facility] 5:54 AM [facility] SYSTEM REPOSITORY TYPE CODE TESTS RESULT OUT OF RANGE REFERENCE UNITS LAB 54117-9(LO mL/min INC) GFR Normal Estimated Non 55 Performed By: #### 40206-0, 19137-5k3, 11125-7, 41796-6 #### [facility] [address], [place] MAGNESIUM LEVEL Collected: 10/01/2018 Status: F Source: [facility] 5:54 AM [facility] SYSTEM REPOSITORY TYPE CODE TESTS RESULT OUT OF RANGE REFERENCE UNITS LAB 34470-7(LO 1.8-2.5 mg/dL INC) Normal Magnesium Level 2.1 Performed By: #### 69574-7, 35789-2g4, 39971-6, 30165-1 #### [facility] [address], [place] BASIC METABOLIC PANEL Collected: 10/01/2018 Status: F Source: [facility] 5:54 AM [facility] SYSTEM REPOSITORY TYPE CODE TESTS RESULT OUT OF RANGE REFERENCE UNITS LAB 21368-1(LO 8-20 mg/dL INC) High BUN 36 LAB 87422-0(LO 6.0-18.0 mMol/L INC) Anion Normal Gap 7.0 LAB 21388-2(LO 8.9-10.3 mg/dL INC) Low Calcium Total 7.9 LAB 2951-2(HANY 136-145 mMol/L NC) Low Sodium Level 134 LAB 2160-0(HANY 0.60-1.30 mg/dL NC) Normal Creatinine 1.29 LAB 2823-3(HANY 3.6-5.1 mMol/L NC) Normal Potassium Level 4.5 LAB 69971-8(LO 70-110 mg/dL INC) High Glucose Level 196 LAB 8-9(HANY 22-32 mMol/L NC) Carbon Normal Dioxide Level 28 LAB 2075-0(HANY 98-107 mMol/L NC) Chloride Normal Level 99 Performed By: #### 72924-0, 23345-2i1, 26678-4, 71397-1 #### [facility] [address], [place] XR CHEST 1 VIEW Observed: 10/01/2018 Status: F Source: [facility] 5:43 AM HEALTH SYSTEM REPOSITORY EXAMINATION TYPE: XR Chest 1 View DATE OF EXAM: 10/01/2018 5:43 AM HISTORY: Post cardiac surgery COMPARISON: Multiple, most recent dated 09/30/2018 FINDINGS: Mildly decreased retrocardiac opacity since 09/30/2018. Mild right basilar opacity with no significant change. Likely trace effusions again noted with no pneumothorax demonstrated. Valve prosthesis a gain shown with stable cardiac silhouette. Right PICC terminates in the superior vena cava. IMPRESSION: Mildly decreased retrocardiac opacity. Jed Velarde thanks you for the opportunity to care for your patient. Workstation ID: [id number] - [id number] FINAL REPORT Dictated By: Bahman Saldaña MD 10/01/2018 07:19 Assigned Physician: Bahman Saldaña MD Reviewed and Electronically Signed By: Bahman Saldaña MD 10/01/2018 07:20 Transcribed by: CATERINA 10/01/2018 07:19 Technologist: MARISOL ROBISON GLUCOSE POCT Collected: 09/30/2018 Status: F Source: [facility] (UPLOADED) 10:05 PM HEALTH SYSTEM REPOSITORY TYPE CODE TESTS RESULT OUT OF REFERENCE UNITS RANGE LAB 2340-8(LOIN 70-110 mg/dL C) High Glucose 172 POCT-LAB Result Comment: Treatment ranges and critical values established by Patient Care Services. All follow-up actions were taken by Patient Care Services. Performed By: #### 2430-8 #### [facility] GLUCOSE POCT Collected: 09/30/2018 Status: F Source: [facility] (UPLOADED) 8:24 PM HEALTH SYSTEM REPOSITORY TYPE CODE TESTS RESULT OUT OF REFERENCE UNITS RANGE LAB 2340-8(LOIN 70-110 mg/dL C) High Glucose 184 POCT-LAB Result Comment: Treatment ranges and critical values established by Patient Care Services. All follow-up actions were taken by Patient Care Services. Performed By: #### 2430-8 #### [facility] GLUCOSE POCT Collected: 09/30/2018 Status: F Source: [facility] (UPLOADED) 6:46 PM HEALTH SYSTEM REPOSITORY TYPE CODE TESTS RESULT OUT OF REFERENCE UNITS RANGE LAB 2340-8(LOIN 70-110 mg/dL C) High Glucose 210 POCT-LAB Result Comment: Treatment ranges and critical values established by Patient Care Services. All follow-up actions were taken by Patient Care Services. Performed By: #### 2430-8 #### [facility] PROGRESS NOTES Observed: 09/30/2018 Status: F Source: [facility] 5:32 PM HEALTH SYSTEM REPOSITORY Patient: LOVE PHELAN MRN: ([facility])-[id number] Age: 73 years Sex: Male : 1945 Associated Diagnoses: None Author: Cristhian Hong DO Assessment Brief Note: Afternoon BG noted Change - Lantus 50U SC BID Glipizide to 10mg ER with bfast and dinner (home dose) Cont - Metformin 1000mg BID Lispro 8U TID Std SSI Comments Supervising Physician Comments GLUCOSE POCT Collected: 09/30/2018 Status: F Source: [facility] (UPLOADED) 4:03 PM HEALTH SYSTEM REPOSITORY TYPE CODE TESTS RESULT OUT OF REFERENCE UNITS RANGE LAB 2340-8(LOIN 70-110 mg/dL C) High Glucose 240 POCT-LAB Result Comment: Treatment ranges and critical values established by Patient Care Services. All follow-up actions were taken by Patient Care Services. Performed By: #### 2430-8 #### [facility] PROGRESS NOTES Observed: 09/30/2018 Status: F Source: [facility] 3:11 PM [facility]ALTH SYSTEM REPOSITORY Patient: LOVE PHELAN MRN: ([facility])-[id number] Age: 73 years Sex: Male : 1945 Associated Diagnoses: None Author: Stephy AMBRIZ, Nica Dumont Impression and Plan IMPRESSION: Chronic kidney disease stage III- UPCR 0.9g/g and ultrasound w/ kidneys 13cm bilat presumably with diabetic nephropathy. Hypertension. Type 2 diabetes mellitus. Coronary artery disease status post multivessel PCI in 2009 as above. Severe mitral regurgitation, s/p MVR 09/26. PLAN: - renal funciton stable, but still hypervolemic. Will give total of Lasix 40mg twice today and the switch to PO tomorrow. Lasix 20mg daily and spironolactone 25mg daily. Seun Keyes MD [facility], [facility]. Pager: [phone] Subjective seen this pm, feels well, denies SOB, off oxygen Health Status Allergies Allergic Reactions (Selected) Mild Doxycycline- Hives. Objective Last Charted Vital Signs Temperature: 98.2 (09/30 11:51) Pulse: 80 (09/30 12:26) Respiration: 16 (09/30 12:26) BP: 153/70 (09/30 11:51) Pulse Ox: 95 (09/30 11:45) Oxygen Delivery: Room air (09/30 11:45) Pain Score: 5 (09/29 21:08) EXAM: see vitals below General - somnolent, oriented x3, no acute distress Chest/Respiratory - lungs clear Cardiovascular - Normal rate, regular rhythm without murmurs Abdomen/Gastrointestinal - Soft, nontender, nondistended, (+) bowel sounds. Musculoskeletal - No synovitis. No joint effusions or erythemia in knees, elbows, hands, wrists Extremities - trace edema. Neuropsych -awake and oriented Results Review Labs - Last 36 hours (Max 2 / lab test) CHEMISTRY Sodium 133 (09/30 05:53) 132 (09/29 06:07) Potassium 4.4 (09/30 05:53) 4.4 (09/29 06:07) Chloride 100 (09/30 05:53) 99 (09/29 06:07) CO2 27 (09/30 05:53) 27 (09/29 06:07) Glucose 253 (09/30 05:53) 259 (12/03 06:07) Glucose POCT No result BUN 44 (09/30 05:53) 51 (09/29 06:07) Creatinine 1.42 (09/30 05:53) 1.57 (09/29 06:07) Calcium Total 7.8 (09/30 05:53) 7.9 (09/29 06:07) Magnesium 2.3 (09/30 05:53) 2.4 (09/29 06:07) HEMATOLOGY WBC 4.8 (09/30 05:53) 6.2 (09/29 06:07) RBC 3.32 (09/30 05:53) 3.37 (09/29 06:07) Hb 9.3 (09/30 05:53) 9.4 (09/29 06:07) Hematocrit 27.9 (09/30 05:53) 28.5 (09/29 06:07) Platelets 121 (09/30 05:53) 102 (09/29 06:07) MCV 84.0 (09/30 05:53) 84.5 (09/29 06:07) MCH 28.0 (09/30 05:53) 27.8 (09/29 06:07) RDW 14.6 (09/30 05:53) 15.1 (09/29 06:07) MCHC 33.3 (09/30 05:53) 32.8 (09/29 06:07) Neutrophil Ab 3.20 (09/30 05:53) 4.50 (09/29 06:07) Monocyte Ab 0.50 (09/30 05:53) 0.70 (09/29 06:07) Eosinophil Ab 0.10 (09/30 05:53) 0.10 (09/29 06:07) Basophil Ab 0.00 (09/30 05:53) 0.00 (09/29 06:07) Lymphocyte Ab 0.90 (09/30 05:53) 0.90 (09/29 06:07) COAGULATION INR 1.48 (09/30 05:53) 1.28 (09/29 09:58) Prothrombintime (PT) 17.2 Sec (09/30 05:53) 14.7 Sec (09/29 09:58) OTHER LABS Anion Gap 6.0 mMol/L (09/30 05:53) 6.0 mMol/L (09/29 06:07) GFR Est. Non 44 mL/min (09/29 06:07) 38 mL/min (09/28 05:52) GFR Est. Berta 53 mL/min (09/29 06:07) 45 mL/min (09/28 05:52) MPV 8.9 FL (09/30 05:53) 9.3 FL (09/29 06:07) Neutrophil 66.4 % (09/30 05:53) 72.0 % (09/29 06:07) Lymphocyte 19.5 % (09/30 05:53) 14.4 % (09/29 06:07) Monocyte 10.2 % (09/30 05:53) 11.7 % (09/29 06:07) Eosinophil 3.1 % (09/30 05:53) 1.5 % (09/29 06:07) Basophil 0.8 % (09/30 05:53) 0.4 % (09/29 06:07) GLUCOSE POCT Collected: 09/30/2018 Status: F Source: [facility] (UPLOADED) 11:52 AM HEALTH SYSTEM REPOSITORY TYPE CODE TESTS RESULT OUT OF REFERENCE UNITS RANGE LAB 2340-8(LOIN 70-110 mg/dL C) High Glucose 321 POCT-LAB Result Comment: Treatment ranges and critical values established by Patient Care Services. All follow-up actions were taken by Patient Care Services. Performed By: #### 2430-8 #### [facility]INT [facility] C[facility] PROGRESS NOTES Observed: 09/30/2018 Status: C Source: [facility] 9:16 AM HEALTH SYSTEM REPOSITORY Patient: LOVE PHELAN MRN: [facility])-[id number] Age: 73 years Sex: Male : 1945 Associated Diagnoses: None Author: Jacques Rao 09/30/2018 09:16 SUBJECTIVE: Resting comfortably in bedside chair this morning. Denies shortness of breath and is now on room air with a O2 sat of 95%. Ambulated 3 times without difficulty yesterday. Awaiting bowel movement. OBJECTIVE: Temperature: 98.7 (09/30 09:01) Pulse: 86 (09/30 09:01) Respiration: 16 (09/30 08:20) BP: 148/71 (09/30 09:01) Pulse Ox: 95 (09/30 09:01) Oxygen Delivery: Room air (09/30 08:20) Pain Score: 5 (09/29 21:08) I and O Summary Begin Date: 09/29/18 00:00 End Date: 09/29/18 23:59 Input: 540 Output: 0 Stools: 0 Other Output: 350 Total Output: 350 I and O Difference: 190 Weight: Today: 106.8 kg/ 235 lbs 7.3 oz (Actual) (09/30/18 03:44) Yest: 107.1 kg/ 236 lbs 1.8 oz (Type not Indicated) (09/29/18 05:30) Admit: No value charted Physical Exam: Gen: AOx3, NAD Lungs: decreased at the bases Cardio: RRR, no MRG Abdomen: soft, NT, ND, BS normal Extremities: warm, well perfused Neuro: no focal deficits Labs, meds, imaging reviewed Telemetry: Normal sinus rhythm Impression: -Acute heart failure; likely secondary to 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 In setting of acute CHF, renal insufficiency of unknown chronicity, and underlying CAD. -Chronic ischemic heart disease; s/p NH and multivessel stenting 2009. He had negative stress test 2014. -Carotid artery disease -HTN, uncontrolled. Pt reports difficult to control BP at baseline requiring ongoing up-titration of regimen. At home may trend 130-150s mmHg systolic. -HLD -DM2 -CKD stage III: Nephrology following. -Obesity PLAN: - Short-term warfarin planned by CTS -Off Plavix for the time being -Continue supportive care. -Continue aspirin, statin, beta-brisa (dose increased this morning) -Incentive spirometry -Cardiac rehabilitation PHYSICIAN ADDENDUM NOTE I have personally seen and examined the patient and agree with the assessment of Jacques Warner PA-C with the following edits and additions. INTERIM HISTORY The patient denies any chest pain or dyspnea. Reports daily improvement in his cough. PHYSICAL EXAMINATION Vital signs reviewed below Constitutional: The patient is alert and oriented and in no distress. Chest:The lungs are clear without rales or rhonchi. Cardiovascular: Regular rate and rhythm. S1, S2 normal. Variable intensity holosystolic murmur in the left lower sternal border. JVD is difficult to assess. Abdomen: Soft, non-tender. Bowel sounds normal. No pulsatile masses or organomegaly. Extremities: There is trace peripheral edema. Neurological: The patient is alert and oriented to person, place and time. Skin: No cyanosis. I have reviewed the Telemetry, I/Os, medications, laboratory data, EKGs and radiology images, summarized below and elsewhere in the medical records. Continues to recover slowly and nicely from bioprosthetic mitral valve replacement. - Continue aspirin, atorvastatin, Lasix and metoprolol. - Continue Coumadin. - Discharge planning per primary team Abdoulaye Stanford MD, [facility] Labs - Last 36 hours (Max 2 / lab test) CHEMISTRY Sodium 133 (09/30 05:53) 132 (12/03 06:07) Potassium 4.4 (09/30 05:53) 4.4 (09/29 06:07) Chloride 100 (09/30 05:53) 99 (09/29 06:07) CO2 27 (09/30 05:53) 27 (09/29 06:07) Glucose 253 (09/30 05:53) 259 (09/29 06:07) Glucose POCT No result BUN 44 (09/30 05:53) 51 (09/29 06:07) Creatinine 1.42 (09/30 05:53) 1.57 (09/29 06:07) Calcium Total 7.8 (09/30 05:53) 7.9 (09/29 06:07) Magnesium 2.3 (09/3053) 2.4 (09/29 06:07) HEMATOLOGY WBC 4.8 (09/30 05:53) 6.2 (09/29 06:07) RBC 3.32 (09/30 05:53) 3.37 (09/29 06:07) Hb 9.3 (09/30 05:53) 9.4 (09/29 06:07) Hematocrit 27.9 (09/30 05:53) 28.5 (09/29 06:07) Platelets 121 (09/30 05:53) 102 (09/29 06:07) MCV 84.0 (09/30 05:53) 84.5 (09/29 06:07) MCH 28.0 (09/30 05:53) 27.8 (09/29 06:07) RDW 14.6 (09/30 05:53) 15.1 (09/29 06:07) MCHC 33.3 (09/30 05:53) 32.8 (09/29 06:07) Neutrophil Ab 3.20 (09/30 05:53) 4.50 (09/29 06:07) Monocyte Ab 0.50 (09/30 05:53) 0.70 (09/29 06:07) Eosinophil Ab 0.10 (09/30 05:53) 0.10 (09/29 06:07) Basophil Ab 0.00 (09/30 05:53) 0.00 (09/29 06:07) Lymphocyte Ab 0.90 (09/30 05:53) 0.90 (09/29 06:07) COAGULATION INR 1.48 (09/30 05:53) 1.28 (09/29 09:58) Prothrombintime (PT) 17.2 Sec (09/30 05:53) 14.7 Sec (09/29 09:58) OTHER LABS Anion Gap 6.0 mMol/L (09/30 05:53) 6.0 mMol/L (09/29 06:07) GFR Est. Non 44 mL/min (09/29 06:07) 38 mL/min (09/28 05:52) GFR Est. Berta 53 mL/min (09/29 06:07) 45 mL/min (09/28 05:52) MPV 8.9 FL (09/30 05:53) 9.3 FL (09/29 06:07) Neutrophil 66.4 % (09/30 05:53) 72.0 % (09/29 06:07) Lymphocyte 19.5 % (09/30 05:53) 14.4 % (09/29 06:07) Monocyte 10.2 % (09/30 05:53) 11.7 % (09/29 06:07) Eosinophil 3.1 % (09/30 05:53) 1.5 % (09/29 06:07) Basophil 0.8 % (09/30 05:53) 0.4 % (09/29 06:07) Inpatient Medications: Furosemide 20 mg Tab (Lasix GEq) 20 mg = 1 Tab, PO, Tab, Daily,, x 30 Day(s), 09/29/18 11:33:00 EST Last Dose: 09/30/18 08:59:00 Spironolactone 25 mg Tab (Aldactone GEq) 25 mg = 1 Tab, PO, Tab, Daily,, x 30 Day(s), 09/29/18 11:33:00 EST Last Dose: 09/30/18 08:59:00 Lactulose 20 Gm/30 mL Syrup 30 mL (Cephulac GEq) 30 mL, PO, Syrup, Once,, 20 Gm, 09/30/18 8:57:00 EST Last Dose: Not Given Warfarin 5 mg Tab (Coumadin GEq) 5 mg = 1 Tab, PO, Tab, Daily-Warf, x 30 Day(s), 09/29/18 8:49:00 EST, Atrial Fibrillation (INR Target: 2-3) Last Dose: 09/29/18 17:40:00 Warfarin Therapy Each, Misc, Daily-Warf Last Dose: 09/29/18 17:41:00 Insulin U100 Lispro per unit MDV (HumaLOG GEq) 8 Unit = 0.08 mL, Subcut, Inject, w/meals TID,, x 30 Day(s), 09/29/18 9:00:00 EST Last Dose: 09/30/18 09:02:00 Insulin U100 glargine per unit MDV (Lantus GEq) 30 Unit = 0.3 mL, Subcut, Inject, BID,, x 30 Day(s), 09/28/18 9:08:00 EST , Comment: Do Not Mix With Other InsulinsDo Not Administer IVAdminister Subcutaneously Last Dose: 09/30/18 09:00:00 PEG Powder 17 Gm (MiraLax GEq) 17 Gm = 1 Packet, PO, Powder, Daily,, x 30 Day(s), 09/27/18 11:20:00 EST , Comment: Mix with 4 to 8 oz. of water, juice, soda, coffee, or tea until completely dissolved. Last Dose: 09/30/18 09:00:00 Aspirin 81 mg Tab EC (Ecotrin GEq) 81 mg = 1 Tab, PO, Tab EC, Daily, x 30 Day(s), 09/27/18 11:20:00 EST , Comment: hold for platelet count less than 75,000 Last Dose: 09/30/18 09:00:00 Pantoprazole 40 mg Tab EC (Protonix GEq) 40 mg = 1 Tab, PO, Tab EC, ac bkfst,, x 30 Day(s), 09/27/18 11:20:00 EST , Comment: Do Not Chew, Crush Or Cut Tablet Last Dose: 09/30/18 07:00:00 Insulin U100 Lispro per unit MDV (HumaLOG GEq) Standard Scale, Inject, Subcut,, ac+bedtime, x 30 Day(s), 09/28/18 7:00:00 EST , Comment: << Sliding Scale Comments >> 0 - 60 Give 12.5 grams (25 mL) of Dextrose 50% for hypoglycemi Last Dose: 09/30/18 09:03:00 Senna 8.6 mg Tab (Senokot GEq) 1 Tab, PO, Tab, BID, x 30 Day(s),, 8.6 mg, 09/27/18 11:20:00 EST , Comment: please d/c if pt is having loose stool Last Dose: 09/30/18 08:59:00 Heparin 5,000 Units/mL Vial 1 mL (NT) 5,000 Unit = 1 mL, Subcut, Inject, Q8h, x 30 Day(s), 09/27/18 11:20:00 EST , Comment: Check daily for signs of bleeding and notify physician if bleeding noted. Last Dose: 09/30/18 07:00:00 Levalbuterol 0.63 mg/3 mL Inh Inna (Xopenex GEq) 0.63 mg = 3 mL, Nebul, Inna, Resp QID,, x 30 Day(s), 09/27/18 11:20:00 EST Last Dose: 09/30/18 08:19:00 Atorvastatin 20 mg Tab (Lipitor GEq) 20 mg = 1 Tab, PO, Tab, Daily,, x 30 Day(s), 09/27/18 8:08:00 EST Last Dose: 09/30/18 08:59:00 Metoprolol 25 mg Tab (Lopressor GEq) 37.5 mg = 1.5 Tab, PO, Tab, Q12h,, x 30 Day(s), 09/27/18 8:11:00 EST Last Dose: 09/29/18 20:09:00 OxyCODONE/Acetaminophen 5 mg/325 mg Tab (Percocet GEq) 2 Tab, PO, Tab, Q4h, x 30 Day(s), PRN Pain - Severe, 09/27/18 11:20:00 EST , Comment: Maximum 4 Gm Acetaminophen/Day for Adults Last Dose: 09/29/18 21:08:00 HYDROcodone/Acetaminophen 5 mg/325 mg Tab ([place] 5 GEq) 2 Tab, PO, Tab, Q4h, x 30 Day(s), PRN Pain - Moderate, 09/27/18 11:20:00 EST , Comment: Maximum 4 Gm Acetaminophen/Day for Adults Last Dose: 09/28/18 20:39:00 Acetaminophen 325 mg Tab (Tylenol GEq) 650 mg = 2 Tab, PO, Tab, Q4h, PRN, See Comments, x 30 Day(s), 09/27/18 11:20:00 EST , Comment: PRN for headache or temperature greater than 101.4 F. Maximum 4 Gm Acetaminophen/Day Last Dose: Not Given Nitroglycerin Subl Tab 0.4 mg #25 (Nitrostat GEq) 0.4 mg = 1 Tab, Subl, Tab Subl, Q5min, PRN, See Comments, x 3 Time(s)/Dose(s), 09/27/18 11:20:00 EST Last Dose: Not Given Magnesium Hydroxide 8% Susp 30 mL (Milk of Magnesia) 30 mL, PO, Susp, PRN, x 30 Day(s), PRN Constipation, 2,400 mg, 09/27/18 11:20:00 EST Last Dose: 09/29/18 20:17:00 Bisacodyl 10 mg Suppos (Dulcolax GEq) 10 mg = 1 Suppos, Rectal, Suppos, Daily, PRN, Constipation, x 30 Day(s), 09/27/18 11:20:00 EST Last Dose: Not Given Mylanta/Maalox Plus Susp 30 mL (GEq) 30 mL, PO, Susp, PRN, x 30 Day(s), PRN Indigestion/Heartburn, 09/27/18 11:20:00 EST , Comment: SHAKE WELL Last Dose: Not Given HYDROcodone/Acetaminophen 5 mg/325 mg Tab ([place] 5 GEq) 1 Tab, PO, Tab, Q4h, x 30 Day(s), PRN Pain - Mild, 09/27/18 11:20:00 EST , Comment: Maximum 4 Gm Acetaminophen/Day for Adults Last Dose: Not Given Glucagon 1 mg Vial (Glucagen GEq) 1 mg, Subcut, Inject, PRN, PRN, See Comments, x 30 Day(s), 09/27/18 11:20:00 EST , Comment: If IV access is not obtainable: For hypoglycemia blood glucose less than 60 mg/dL and patient Last Dose: Not Given Current IV Orders: Atropine 0.1 mg/mL Syringe 10 mL 0.5 mg = 5 mL, IV Push, Inject, Q3min, PRN, See Comments, x 6 Time(s)/Dose(s), 09/27/18 11:20:00 EST , Comment: May repeat doses in 3 - 5 minutes up to a total of 3 mg. If pacing wires Last Dose: Not Given Ondansetron 2 mg/mL Inj 2 mL (Zofran GEq) 4 mg = 2 mL, IV Push, Inject, Q8h, PRN, Nausea/Vomiting, x 30 Day(s), 09/27/18 11:20:00 EST , Comment: Administer IV Over 2 Minutes Last Dose: Not Given Sodium Chloride 0.9% PF Flush Syringe 10 mL 10 mL, IV Push, Inject, Q8h, x 30 Day(s), PRN See Comments, 09/27/18 11:20:00 EST , Comment: Flush unused sideport introducer, discontinue when sideport removed. Last Dose: Not Given Sodium Chloride 0.9% PF Flush Syringe 10 mL 2.5 mL, IV Push, Inject, Q8h, x 30 Day(s), PRN See Comments, 09/27/18 11:20:00 EST , Comment: Flush unused peripheral IV site access Last Dose: Not Given Amiodarone 150 mg = 3 mL, IVPB, Once, PRN, See Comments, 09/27/18 11:20:00 EST Last Dose: Not Given Dextrose 50% Syringe 25 Gm/50 mL 12.5 Gm = 25 mL, IV Push, Inject, PRN, PRN, See Comments, x 30 Day(s), 09/27/18 11:20:00 EST Last Dose: Not Given Sodium Chloride 0.9% PF Flush Syringe 10 mL 10 mL, IV Push, Inject, Q8h, x, PRN See Comments, 09/25/18 19:49:00 EST Last Dose: 09/26/18 15:58:00 Sodium Chloride 0.9% PF Flush Syringe 10 mL 20 mL, IV Push, Inject, PRN, x 30 Day(s), PRN See Comments, 09/25/18 19:49:00 EST Last Dose: Not Given Sodium Chloride 0.9% PF Flush Syringe 10 mL 20 mL, IV Push, Inject, PRN, x 30 Day(s), PRN See Comments, 09/25/18 19:49:00 EST Last Dose: Not Given Dextrose 5%/NaCl 0.2% 500 mL 500 ml, 25 mL/hr, IV, x 30 Day(s), 500 mL, Infusion, 09/27/18 11:20:00 EST, 101.9 kg Last Dose: Not Given Amiodarone 450 mg [1 mg/min] + Sodium Chlor 0.9% Non- PVC 250 mL 250 ml, 33.33 mL/hr, IV, x 30 Day(s),, See Comments, 250 mL, 09/27/18 11:20:00 EST, 101.9 kg , Comment: GOAL EFFECT: Suppression of arrhythmia * USUAL INFUSION REGIMEN: 1 mg/min x 6 h Last Dose: Not Given PROGRESS NOTES Observed: 09/30/2018 Status: F Source: [facility] REPOSITORY Patient: LOVE PHELAN MRN: [id number] Age: 73 years Sex: Male : 1945 Associated Diagnoses: None Author: Cristhian Hong DO Assessment Diagnosis/Impression/Plan: Medicine Sign-on Mr Love Phelan is a 73-year-old male with past medical history to include CAD status post stents, hypertension, hyperlipidemia, insulin-dependent diabetes, newly diagnosed CKD stage III, who p resents to [facility] 09/21/2018 for dyspnea Interval workup notable for NSTEMI with echo findings of severe mitral regurgitation Would undergo MVR Saturday09/26/18, ( Mitral valve replacement with 27 mm Medtronic Weldon tissue valve.) Attending changed to CTS Dr. Moreno. Medicine team is back onboard for BG management #Uncontrolled IDDM Discussed home regimen with pt, apparently on lantus 64U sc BID at home. Also metformin and Glipizide. Now eating less and on ADA diet in- house so would not do basal 64U sc BID. Prior insulin gtt noted. Daily insulin needs ~ 120-140 U BG 230 this AM Cont Lantus 30U BID Lispro 8U TID with meals Continue - Standard SSI Cr steady, re-introduce Metformin 1000mg ER BID, first dose this AM Glipizide ER 10mg for lunch today. Goal BG <180 in post-op period; long-term given his age, A1C target 7.5-8.0 If BG <180 this afternoon, I'll reconcile his diabetic meds for dc. #Bioprosthetic mitral valve per CTS, noted initiation of coumadin, plan 3 months coumadin and asa; then stop coumadin and transition to DAPT #Acute hypoxemic respiratory failure-secondary to diastolic CHF with severe mitral regurgitation CHF treatment outlined, continue gentle diuresis as hemodynamics permit s/p MVR 09/26/18 Continue supplemental oxygen for goal saturation greater than 90%, wean as able Improved to RA #HFpEF (EF60%) echo 09/22/18, severe mitral regurgitation with flail portion anterior leaflet Judicious diuresis as hemodynamics permit, monitor I's and O's, volume status s/p MVR 09/26/18 190cc, agree with additional lasix to optimize resp status, Cr steady. 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 Given decompensated CHF secondary to severe mitral regurgitation, he underwent necessary CTA of the chest and abdomen and pelvis with contrast 09/24/18 Avoid other nephrotoxins as able Appreciate Nephro, monitoring closely, continue to hold Ying, noted Imdur, plan future HCTZ/LIS FULL CODE_ ADOD per primary team - CTS Code Status Full Resuscitation Comment: Provide all therapy to prevent/treat cardiac or respiratory arrest. Full Resuscitation Comment: Provide all therapy to prevent/treat cardiac or respiratory arrest. Full Resuscitation Comment: Provide all therapy to prevent/treat cardiac or respiratory arrest. Chief Complaint _CHF exac Health Status Allergies Allergic Reactions (Selected) Mild Doxycycline- Hives. Medication List (Selected) Inpatient Medications Ordered Amiodarone Additive* 450 mg [1 mg/min] + Sodium Chloride 0.9% 250 mL: 33.33 mL/hr, IV, Stop: 10/27/18 11:19:00 EST Atropine 0.1 mg/mL Syringe 10 mL: 0.5 mg, IV Push, Q3min, PRN: See Comments Cordarone Inj*: 150 mg, 3 mL, 600 mL/hr, IVPB, Once, PRN: See Comments Coumadin Therapy Confirm Order Daily*: 1 Each, Misc, Daily-Warf Coumadin: 5 mg, PO, Daily-Warf Dextrose 5% with 0.2% NaCl 500 mL: 25 mL/hr, IV, Stop: 10/27/18 11:19:00 EST Dextrose 50% Syringe*: 12.5 Gm, IV Push, PRN, PRN: See Comments Dulcolax*: 10 mg, Rectal, Daily, PRN: Constipation GlipiZIDE XL: 10 mg, PO, w/lunch Glucagon: 1 mg, Subcut, PRN, PRN: See Comments Insulin Lispro RAPID-Actin Unit, Subcut, w/meals TID Insulin Lispro Sliding Scale (HumaLOG)*: Standard Scale, Subcut, ac+bedtime Lantus LONG-Actin Unit, Subcut, BID Lasix: 20 mg, PO, Daily Lopressor: 37.5 mg, PO, Q12h MetFORMIN XR: 1,000 mg, PO, w/breakfast Milk of Magnesia 8%: 2,400 mg, PO, PRN, PRN: Constipation MiraLax: 17 Gm, PO, Daily Mylanta/Maalox Plus*: 30 mL, PO, PRN, PRN: Indigestion/Heartburn Nitrostat*: 0.4 mg, Subl, Q5min, PRN: See Comments [place] 5 mg/325 mg*: 2 Tab, PO, Q4h, PRN: Pain - Moderate [place] 5 mg/325 m Tab, PO, Q4h, PRN: Pain - Mild Normal Saline Flush*: 10 mL, IV Push, Q8h, PRN: See Comments Normal Saline Flush*: 2.5 mL, IV Push, Q8h, PRN: See Comments Percocet 5 mg/325 mg*: 2 Tab, PO, Q4h, PRN: Pain - Severe Protonix: 40 mg, PO, ac bkfst Saline Flush*: 10 mL, IV Push, Q8h, PRN: See Comments Saline Flush*: 20 mL, IV Push, PRN, PRN: See Comments Saline Flush*: 20 mL, IV Push, PRN, PRN: See Comments Senokot Tab: 8.6 mg, PO, BID Tylenol*: 650 mg, PO, Q4h, PRN: See Comments Xopenex Inh Inna: 0.63 mg, Nebul, Resp QID Zofran Inj*: 4 mg, IV Push, Q8h, PRN: Nausea/Vomiting aspirin: 81 mg, PO, Daily atorvastatin: 20 mg, PO, Daily heparin: 5,000 Unit, Subcut, Q8h lactulose: 20 Gm, PO, Once spironolactone: 25 mg, PO, Daily Documented Medications Documented Insulin Lantus: 64 Unit, Subcut, BID, Each, 0 Refill(s) NovoLOG FlexPen 100 unit/ml subcutaneous solution: 32 Unit, Subcut, TID, Each, 0 Refill(s) Plavix 75 mg oral tablet: 1 Tab, PO, Daily, Each, 0 Refill(s) Vitamin D3 5000 intl units oral tablet: 1 Tab, PO, Daily, Each, 0 Refill(s) amLODipine 10 mg oral tablet: 1 Tab, PO, Daily, Each, 0 Refill(s) aspirin 81 mg oral tablet: 1 Tab, PO, Daily, Each, 0 Refill(s) atenolol 50 mg oral tablet: 1 Tab, PO, Daily, Each, 0 Refill(s) atorvastatin 20 mg oral tablet: 1 Tab, PO, Daily, Each, 0 Refill(s) cyanocobalamin 100 mcg/ml injectable solution: 1 mL, IM, Month ([id number]), Each, 0 Refill(s) glipiZIDE 10 mg oral tablet, extended release: 1 Tab, PO, BID, Each, 0 Refill(s) hydroCHLOROthiazide 25 mg oral tablet: 1 Tab, PO, Daily, Each, 0 Refill(s) lisinopril 40 mg oral tablet: 1 Tab, PO, Daily, Each, 0 Refill(s) metFORMIN 500 mg oral tablet, extended release: 4 Tab, PO, Daily, Each, 0 Refill(s) Subjective _Pt s/e, sitting up in chair, less LE edema. Feels better. No f/c/cp/shob/nvd. has not had a bm yet. Objective Last Charted Vital Signs Temperature: 98.7 (09/30 09:01) Pulse: 86 (09/30 09:01) Respiration: 16 (09/30 08:20) BP: 148/71 (09/30 09:01) Pulse Ox: 95 (09/30 09:01) Oxygen Delivery: Room air (09/30 08:20) Pain Score: 5 (09/29 21:08) Height: 108.34 cm /42.65 in (Type not Indicated) (09/21/2018 18:08:00) Weight: 106.8 kg/ 235 lbs 7.3 oz (Actual) (09/30/2018 03:44:28) Body Surface Area: 1.79 m2 Body Mass Index: 90.99 Intake and Output (Previous 24Hrs) I and O Summary Begin date: 09/29 09:30 End date: 09/30 09:30 24 Hour Intake: 300.00 Output: 0.00 Balance: 300.00 Last BM: No BM Charted Physical Exam: General: AO, appears stated age HEENT: ATNC, sclerae nonicteric, mmm Neck: Soft, trachea midline Heart: S1 S2, no murmur, no JVD Lungs: coarse bs, better air mvt, no crackles Abdomen/GI: soft, nontender, nondistended. Extremity/Musculoskeletal: Normal muscle tone, trace pitting edema Neurologic: No gross focal weakness. No facial droop appreciated. Skin: Visible skin warm, dry, intact Results Review Labs - Last 36 hours (Max 2 / lab test) CHEMISTRY Sodium 133 (09/30 05:53) 132 (09/29 06:07) Potassium 4.4 (09/30 05:53) 4.4 (09/29 06:07) Chloride 100 (09/30 05:53) 99 (09/29 06:07) CO2 27 (09/30 05:53) 27 (09/29 06:07) Glucose 253 (09/30 05:53) 259 (09/29 06:07) Glucose POCT No result BUN 44 (09/30 05:53) 51 (09/29 06:07) Creatinine 1.42 (09/30 05:53) 1.57 (09/29 06:07) Calcium Total 7.8 (09/30 05:53) 7.9 (09/29 06:07) Magnesium 2.3 (09/30 05:53) 2.4 (09/29 06:07) HEMATOLOGY WBC 4.8 (09/30 05:53) 6.2 (09/29 06:07) RBC 3.32 (09/30 05:53) 3.37 (09/29 06:07) Hb 9.3 (09/30 05:53) 9.4 (09/29 06:07) Hematocrit 27.9 (09/30 05:53) 28.5 (09/29 06:07) Platelets 121 (09/30 05:53) 102 (09/29 06:07) MCV 84.0 (09/30 05:53) 84.5 (09/29 06:07) MCH 28.0 (09/30 05:53) 27.8 (09/29 06:07) RDW 14.6 (09/30 05:53) 15.1 (09/29 06:07) MCHC 33.3 (09/30 05:53) 32.8 (09/29 06:07) Neutrophil Ab 3.20 (09/30 05:53) 4.50 (09/29 06:07) Monocyte Ab 0.50 (09/30 05:53) 0.70 (09/29 06:07) Eosinophil Ab 0.10 (09/30 05:53) 0.10 (09/29 06:07) Basophil Ab 0.00 (09/30 05:53) 0.00 (09/29 06:07) Lymphocyte Ab 0.90 (09/30 05:53) 0.90 (09/29 06:07) COAGULATION INR 1.48 (09/30 05:53) 1.28 (09/29 09:58) Prothrombintime (PT) 17.2 Sec (09/30 05:53) 14.7 Sec (09/29 09:58) OTHER LABS Anion Gap 6.0 mMol/L (09/30 05:53) 6.0 mMol/L (09/29 06:07) GFR Est. Non 44 mL/min (09/29 06:07) 38 mL/min (09/28 05:52) GFR Est. Berta 53 mL/min (09/29 06:07) 45 mL/min (09/28 05:52) MPV 8.9 FL (09/30 05:53) 9.3 FL (09/29 06:07) Neutrophil 66.4 % (12/04 05:53) 72.0 % (09/29 06:07) Lymphocyte 19.5 % (09/30 05:53) 14.4 % (09/29 06:07) Monocyte 10.2 % (09/30 05:53) 11.7 % (09/29 06:07) Eosinophil 3.1 % (09/30 05:53) 1.5 % (09/29 06:07) Basophil 0.8 % (09/30 05:53) 0.4 % (09/29 06:07) Blood 09/30/18 08:21:00 Glucose POCT-LA: 231 Comment: 09/26/18 18:21:00 Hematocrit POCT: 34 Hemoglobin POCT: 11.2 Sodium POCT: 141 Potassium POCT: 4.6 Calcium Ionized: 1.21 Lactate POCT: 1.6 09/22/18 12:22:00 Activated Clott: 188 Comment: Microbiology No results found General Results Lab/diagnostic studies personally reviewed. Supervising Physician Comments . Diagnosis Documentation . PROGRESS NOTES Observed: 09/30/2018 Status: C Source: [place] 8:56 AM [facility] REPOSITORY Patient: LOVE PHELAN Age: 73 years Sex: Male : 1945 Associated Diagnoses: None Author: Abeba AMBROCIO, Akira Mcghee Supervising Physician Comments Assessment and Plan 1. Mitral regurg: POD #4 Right anterior mini thoracotomy; Mitral valve replacement with 27 mm Medtronic Weldon tissue valve - On Q, wires, and tubes are out. - Aspirin/BB; Continue coumadin for tissue MVR for 3 months. Protonix - Senna and miralax, Advance diet; Still no BM. Will give one time dose of lactulose now - PEP therapy ordered with xoponex; Encouraged ambulation and IS; O2 off. 2. HTN -BB -Hold amlodipine -Hold lisinopril 3. Hyperlipidemia - Statin therapy 4. Diabetes - SSI - LA insulin resumed. - Also takes metformin and glipizide at home. Unsure if he should be on these given renal function - Spoke with Dr. Hong with sound and they will continue seeing to help with sugar management. 5. CKD stage III - Creat stable at baseline - Continue lasix and spironolactone per renal - Urine output has been adequate. 6. CAD - Was on plavix. Will be on coumadin for valve prophylaxis. Will continue coumadin and asa for three months. After three months will transition back to dual antiplatelet therapy with asa and plavix. Dispo: Continue current. Today: 106.8 kg/ 235 lbs 7.3 oz (Actual) (09/30/18 03:44) Yest: 107.1 kg/ 236 lbs 1.8 oz (Type not Indicated) (09/29/18 05:30) Admit: No value charted 09/30/18 08:20:00 Pulse: 78 Respiration: 16 Pulse Ox: 95 Ox. Delivery: Room air General: Alert Neuro: Moves all extremities. Follows commands. Vital signs: VSS. Incision: Right lateral thoracotomy healing well. Chest tube site with serosan drainage. Right groin incision c/d/i with no seroma noted. Respiratory: Lungs are diminished in bases bilaterally. CXR: Reviewed Cardiovascular: Heart NSR; (+) Lower extremity edema; palpable dorsal pedis pulses bilaterally Gasrointestinal: Abdomen is soft, non tender. (+) Flatus; (-) BM Integumentary: Skin warm dry and intact 09/30/18 05:53, Hemoglobin = 9.3 gm/dL L 09/30/18 05:53, Hematocrit = 27.9 % L 09/30/18 05:53, WBC Count = 4.8 thou/mcL 09/30/18 05:53, Platelet Count = 121 thou/mcL L 09/30/18 05:53, PT = 17.2 Sec H 09/30/18 05:53, INR = 1.48 09/30/18 05:53, Sodium Level = 133 mMol/L L 09/30/18 05:53, Potassium Level = 4.4 mMol/L 09/30/18 05:53, Creatinine = 1.42 mg/dL H 09/30/18 05:53, BUN = 44 mg/dL H 09/22/18 05:46, TSH = 1.36 mcIU/mL 09/26/18 03:52, Bilirubin Total = 0.6 mg/dL 09/26/18 18:21, Glucose POCT = 207 mg/dL H 09/30/18 05:53, Glucose Level = 253 mg/dL H 09/22/18 05:46, Hemoglobin A1c = 9.0 % tl hgb H continue iv diuresis continue coumadin GLUCOSE POCT Collected: 09/30/2018 Status: F Source: [facility] (UPLOADED) 8:21 AM [facility]ALTH SYSTEM REPOSITORY TYPE CODE TESTS RESULT OUT OF REFERENCE UNITS RANGE LAB 2340-8(LOIN 70-110 mg/dL C) High Glucose 231 POCT-LAB Result Comment: Treatment ranges and critical values established by Patient Care Services. All follow-up actions were taken by Patient Care Services. Performed By: #### 2430-8 #### [facility]INT [facility] CBC WITH DIFFERENTIAL Collected: 09/30/2018 Status: F Source: [place] [place] 5:53 AM [facility]ALTH SYSTEM REPOSITORY TYPE CODE TESTS RESULT OUT OF REFERENCE UNITS RANGE LAB 711-2(LOIN 0.00-0.70 thou/mcL C) Normal Eosinophil 0.10 Absolute LAB 731-0(LOIN 1.00-4.80 thou/mcL C) Low Lymphocyte 0.90 Absolute LAB 43391-4(LO 4.6-10.2 thou/mcL INC) WBC Normal Count 4.8 LAB 74265-4(LO 40.0-70.0 % INC) Normal Neutrophil 66.4 LAB 20362-3(LO 0.0-12.0 % INC) Normal Monocyte 10.2 LAB 71760-9(LO 32.0-36.0 gm/dL INC) MCHC Normal 33.3 LAB 742-7(LOIN 0.00-0.90 thou/mcL C) Normal Monocyte 0.50 Absolute LAB 25632-2(LO 39.0-49.0 % INC) Low Hematocrit 27.9 LAB 63913-4(LO 142-424 thou/mcL INC) Low Platelet Count 121 LAB 751-8(LOIN 1.80-7.70 thou/mcL C) Normal Neutrophil 3.20 Absolute LAB 09270-3(LO 0.0-2.0 % INC) Normal Basophil 0.8 LAB 81652-7(LO 27.0-34.0 Picograms INC) MCH Normal 28.0 LAB 704-7(LOIN 0.00-0.20 thou/mcL C) Normal Basophil 0.00 Absolute LAB 718-7(LOIN 13.5-17.5 gm/dL C) Low Hemoglobin 9.3 LAB 90995-5(LO 11.0-14.8 % INC) RDW Normal 14.6 LAB 15004-8(LO 22.0-44.0 % INC) Low Lymphocyte 19.5 LAB 54933-5(LO 4.30-5.70 million/mcL INC) Low Red Blood Cell 3.32 Count LAB 39513-5(LO 6.2-12.1 FL INC) MPV Normal 8.9 LAB 63067-7(LO 0.0-7.0 % INC) Normal Eosinophil 3.1 LAB 91708-9(LO 80.0-97.0 FL INC) MCV Normal 84.0 Performed By: #### 81660-9 #### [facility] [address], [place] PROTHROMBIN TIME Collected: 09/30/2018 Status: F Source: [place] 5:53 AM [facility] SYSTEM REPOSITORY TYPE CODE TESTS RESULT OUT OF RANGE REFERENCE UNITS LAB 10921-4(HANY NC) Normal INR 1.48 Result Comment: The recommended therapeutic INR range for most cardiac indications is 2.0-3.0. For high intensity therapy(ie.mechanical heart valves), the recommended range is 2.5-3.5. LAB 5902-2(LOINC) 9.3-12.4 Sec Prothrombin High Time (PT) 17.2 Performed By: #### 5902-2 #### [facility] [address], [place] MAGNESIUM LEVEL Collected: 09/30/2018 Status: F Source: [place] 5:53 AM [facility] SYSTEM REPOSITORY TYPE CODE TESTS RESULT OUT OF RANGE REFERENCE UNITS LAB 63810-1(LO 1.8-2.5 mg/dL INC) Normal Magnesium Level 2.3 Performed By: #### 35882-4, 23776-2 #### [facility] [address], [place] BASIC METABOLIC PANEL Collected: 09/30/2018 Status: F Source: [place] 5:53 AM [facility] SYSTEM REPOSITORY TYPE CODE TESTS RESULT OUT OF RANGE REFERENCE UNITS LAB 70025-4(LO 70-110 mg/dL INC) High Glucose Level 253 LAB 93386-3(LO 8.9-10.3 mg/dL INC) Low Calcium Total 7.8 LAB 43899-0(LO 6.0-18.0 mMol/L INC) Anion Normal Gap 6.0 LAB 2823-3(HANY 3.6-5.1 mMol/L NC) Normal Potassium Level 4.4 LAB 2075-0(HANY 98-107 mMol/L NC) Chloride Normal Level 100 LAB 2160-0(HANY 0.60-1.30 mg/dL NC) High Creatinine 1.42 LAB 06791-5(LO 8-20 mg/dL INC) High BUN 44 LAB 2951-2(HANY 136-145 mMol/L NC) Low Sodium Level 133 LAB 2028-9(HANY 22-32 mMol/L NC) Carbon Normal Dioxide Level 27 Performed By: #### 66555-9, 83758-2 #### [facility] [address], [place] XR CHEST 1 VIEW Observed: 09/30/2018 Status: F Source: [place] 4:57 AM [facility] SYSTEM REPOSITORY EXAMINATION TYPE: XR Chest 1 View DATE OF EXAM : 09/30/2018 4:57 AM HISTORY: Post Cardiac Surgery COMPARISON: 09/29/2018 FINDINGS: Cardiac silhouette is enlarged and similar to the prior study. There is basilar opacity bilaterally which is unchanged. There are small pleural effusions appearing similar to the prior study. There has been mitral valve surgery. Right PICC tip is within the superior vena cava. IMPRESSION: Chest appears similar to the prior study. Jed Velarde thanks you for the opportunity to care for your patient. Workstation ID: [id number] FINAL REPORT Dictated By: Sanju Valdez MD 09/30/2018 06:35 Assigned Physician: Sanju Valdez MD Reviewed and Electronically Signed By: Sanju Valdez MD 09/30/2018 06:35 Transcribed by: CATERINA 09/30/2018 06:35 Technologist: ARLEEN DAMON GLUCOSE POCT Collected: 09/29/2018 Status: F Source: [facility] (UPLOADED) 8:21 PM [facility]ALTH SYSTEM REPOSITORY TYPE CODE TESTS RESULT OUT OF REFERENCE UNITS RANGE LAB 2340-8(LOIN 70-110 mg/dL C) High Glucose 341 POCT-LAB Result Comment: Treatment ranges and critical values established by Patient Care Services. All follow-up actions were taken by Patient Care Services. Performed By: #### 2430-8 #### [facility] GLUCOSE POCT Collected: 09/29/2018 Status: F Source: [facility] (UPLOADED) 5:32 PM [facility]ALTH SYSTEM REPOSITORY TYPE CODE TESTS RESULT OUT OF REFERENCE UNITS RANGE LAB 2340-8(LOIN 70-110 mg/dL C) High Glucose 302 POCT-LAB Result Comment: Treatment ranges and critical values established by Patient Care Services. All follow-up actions were taken by Patient Care Services. Performed By: #### 2430-8 #### [facility] GLUCOSE POCT Collected: 09/29/2018 Status: F Source: [facility] (UPLOADED) 12:05 PM [facility]ALTH SYSTEM REPOSITORY TYPE CODE TESTS RESULT OUT OF REFERENCE UNITS RANGE LAB 2340-8(LOIN 70-110 mg/dL C) High Glucose 294 POCT-LAB Result Comment: Treatment ranges and critical values established by Patient Care Services. All follow-up actions were taken by Patient Care Services. Performed By: #### 2430-8 #### [facility] PROGRESS NOTES Observed: 09/29/2018 Status: F Source: [facility] 11:30 AM [facility] SYSTEM REPOSITORY Patient: LOVE PHELAN MRN: [id number] Age: 73 years Sex: Male : 1945 Associated Diagnoses: None Author: Nica Keyes MD Impression and Plan IMPRESSION: Chronic kidney disease stage III- UPCR 0.9g/g and ultrasound w/ kidneys 13cm bilat presumably with diabetic nephropathy. Hypertension. Type 2 diabetes mellitus. Coronary artery disease status post multivessel PCI in 2009 as above. Severe mitral regurgitation, s/p MVR 09/26. PLAN: - renal funciton stable, has some inspiratory crackles, will give Lasix 40mg IV once - start Lasix 20mg daily and spironolactone 25mg daily starting tomorrow. Seun Keyes MD [facility], [facility]. Pager: [phone] Subjective seen this am, feels well, denies SOB, but still on oxygen Health Status Allergies Allergic Reactions (Selected) Mild Doxycycline- Hives. Objective Last Charted Vital Signs Temperature: 99.1 (09/29 08:45) Pulse: 77 (09/29 11:09) Respiration: 16 (09/29 11:09) BP: 121/67 (09/29 08:45) Pulse Ox: 95 (09/29 11:09) Oxygen Delivery: Nasal cannula (09/29 11:09) O2 Device Flow: 1.5 L/min Pain Score: 8 (09/29 09:57) EXAM: see vitals below General - somnolent, oriented x3, no acute distress Chest/Respiratory - chest tubes removed, has RLL inspiratory crackles Cardiovascular - Normal rate, regular rhythm without murmurs Abdomen/Gastrointestinal - Soft, nontender, nondistended, (+) bowel sounds. Musculoskeletal - No synovitis. No joint effusions or erythemia in knees, elbows, hands, wrists Extremities - trace edema. Neuropsych -awake and oriented Results Review Labs - Last 36 hours (Max 2 / lab test) CHEMISTRY Sodium 132 (09/29 06:07) 135 (09/28 05:52) Potassium 4.4 (09/29 06:07) 4.5 (09/28 05:52) Chloride 99 (09/29 06:07) 101 (09/28 05:52) CO2 27 (09/29 06:07) 27 (09/28 05:52) Glucose 259 (09/29 06:07) 152 (09/28 05:52) Glucose POCT No result BUN 51 (09/29 06:07) 51 (09/28 05:52) Creatinine 1.57 (09/29 06:07) 1.79 (09/28 05:52) Calcium Total 7.9 (09/29 06:07) 8.1 (09/28 05:52) Magnesium 2.4 (09/29 06:07) 2.5 (12/02 05:52) HEMATOLOGY WBC 6.2 (09/29 06:07) 8.3 (09/28 05:52) RBC 3.37 (09/29 06:07) 3.58 (09/28 05:52) Hb 9.4 (09/29 06:07) 10.0 (09/28 05:52) Hematocrit 28.5 (09/29 06:07) 30.6 (09/28 05:52) Platelets 102 (09/29 06:07) 93 (09/28 05:52) MCV 84.5 (09/29 06:07) 85.4 (09/28 05:52) MCH 27.8 (09/29 06:07) 28.0 (09/28 05:52) RDW 15.1 (09/29 06:07) 15.3 (09/28 05:52) MCHC 32.8 (09/29 06:07) 32.7 (09/28 05:52) Neutrophil Ab 4.50 (09/29 06:07) 5.90 (09/28 05:52) Monocyte Ab 0.70 (09/29 06:07) 1.10 (09/28 05:52) Eosinophil Ab 0.10 (09/29 06:07) 0.00 (09/28 05:52) Basophil Ab 0.00 (09/29 06:07) 0.00 (09/28 05:52) Lymphocyte Ab 0.90 (09/29 06:07) 1.20 (09/28 05:52) COAGULATION Partial Thromboplastin (aPTT) 27.8 Sec (09/27 05:52) 28.2 Sec (09/26 14:10) INR 1.28 (09/29 09:58) 1.37 (09/27 05:52) Prothrombintime (PT) 14.7 Sec (09/29 09:58) 15.8 Sec (09/27 05:52) OTHER LABS Anion Gap 6.0 mMol/L (09/29 06:07) 7.0 mMol/L (09/28 05:52) GFR Est. Non 44 mL/min (09/29 06:07) 38 mL/min (09/28 05:52) GFR Est. Berta 53 mL/min (09/29 06:07) 45 mL/min (09/28 05:52) MPV 9.3 FL (09/29 06:07) 9.0 FL (09/28 05:52) Neutrophil 72.0 % (09/29 06:07) 72.0 % (09/28 05:52) Lymphocyte 14.4 % (09/29 06:07) 14.5 % (09/28 05:52) Monocyte 11.7 % (09/29 06:07) 12.8 % (09/28 05:52) Eosinophil 1.5 % (09/29 06:07) 0.4 % (09/28 05:52) Basophil 0.4 % (09/29 06:07) 0.3 % (09/28 05:52) PROGRESS NOTES Observed: 09/29/2018 Status: C Source: [place] 10:32 AM [facility] SYSTEM REPOSITORY Patient: LOVE PHELAN Age: 73 years Sex: Male : 1945 Associated Diagnoses: None Author: Cristhian Hong DO Assessment Diagnosis/Impression/Plan: Medicine Sign-on Mr Love Phelan is a 73-year-old male with past medical history to include CAD status post stents, hypertension, hyperlipidemia, insulin-dependent diabetes, newly diagnosed CKD stage III, who p resents to [facility] 09/21/2018 for dyspnea Interval workup notable for NSTEMI with echo findings of severe mitral regurgitation Would undergo MVR Saturday09/26/18, ( Mitral valve replacement with 27 mm Medtronic Weldon tissue valve.) Attending changed to CTS Dr. Moreno. Medicine team is back onboard for BG management #Uncontrolled IDDM Discussed home regimen with pt, apparently on lantus 64U sc BID at home. Also metformin and Glipizide. Now eating less and on ADA diet in- house so would not do basal 64U sc BID. Prior insulin gtt noted. Daily insulin needs ~ 120-140 U Last 48 hrs: BG 150-300's Change - Lantus 30U BID Lispro 8U TID with meals Continue - Standard SSI Will re-eval tomorrow Goal BG <180 in post-op period; long-term given his age, A1C target 7.5-8.0 Glipizide may precipitate pronounced hypoglycemia; metformin cleared by the kidneys - would continue to HOLD both in the inpatient setting. #Bioprosthetic mitral valve per CTS, noted initiation of coumadin, plan 3 months coumadin and asa; then stop coumadin and transition to DAPT #Acute hypoxemic respiratory failure-secondary to diastolic CHF with severe mitral regurgitation CHF treatment outlined, continue gentle diuresis as hemodynamics permit s/p MVR 09/26/18 Continue supplemental oxygen for goal saturation greater than 90%, wean as able Currently 1.5L NC #HFpEF (EF60%) echo 09/22/18, severe mitral regurgitation with flail portion anterior leaflet Judicious diuresis as hemodynamics permit, monitor I's and O's, volume status s/p MVR 09/26/18 -610cc, agree with additional lasix to optimize resp status, Cr steady. 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 Given decompensated CHF secondary to severe mitral regurgitation, he underwent necessary CTA of the chest and abdomen and pelvis with contrast 09/24/18 Avoid other nephrotoxins as able Appreciate Nephro, monitoring closely, continue to hold Ying, noted Imdur, plan future HCTZ/LIS FULL CODE_ ADOD per primary team - CTS Code Status Full Resuscitation Comment: Provide all therapy to prevent/treat cardiac or respiratory arrest. Full Resuscitation Comment: Provide all therapy to prevent/treat cardiac or respiratory arrest. Full Resuscitation Comment: Provide all therapy to prevent/treat cardiac or respiratory arrest. Chief Complaint _CHF exac Health Status Allergies Allergic Reactions (Selected) Mild Doxycycline- Hives. Medication List (Selected) Inpatient Medications Ordered Amiodarone Additive* 450 mg [1 mg/min] + Sodium Chloride 0.9% 250 mL: 33.33 mL/hr, IV, Stop: 10/27/18 11:19:00 EST Atropine 0.1 mg/mL Syringe 10 mL: 0.5 mg, IV Push, Q3min, PRN: See Comments Cordarone Inj*: 150 mg, 3 mL, 600 mL/hr, IVPB, Once, PRN: See Comments Coumadin Therapy Confirm Order Daily*: 1 Each, Misc, Daily-Warf Coumadin: 5 mg, PO, Daily-Warf Dextrose 5% with 0.2% NaCl 500 mL: 25 mL/hr, IV, Stop: 10/27/18 11:19:00 EST Dextrose 50% Syringe*: 12.5 Gm, IV Push, PRN, PRN: See Comments Dulcolax*: 10 mg, Rectal, Daily, PRN: Constipation Glucagon: 1 mg, Subcut, PRN, PRN: See Comments Insulin Lispro RAPID-Actin Unit, Subcut, w/meals TID Insulin Lispro Sliding Scale (HumaLOG)*: Standard Scale, Subcut, ac+bedtime Lantus LONG-Actin Unit, Subcut, Bedtime Lasix: 20 mg, PO, Daily Lopressor: 25 mg, PO, Q12h Milk of Magnesia 8%: 2,400 mg, PO, PRN, PRN: Constipation MiraLax: 17 Gm, PO, Daily Mylanta/Maalox Plus*: 30 mL, PO, PRN, PRN: Indigestion/Heartburn Nitrostat*: 0.4 mg, Subl, Q5min, PRN: See Comments [place] 5 mg/325 mg*: 2 Tab, PO, Q4h, PRN: Pain - Moderate [place] 5 mg/325 m Tab, PO, Q4h, PRN: Pain - Mild Normal Saline Flush*: 10 mL, IV Push, Q8h, PRN: See Comments Normal Saline Flush*: 2.5 mL, IV Push, Q8h, PRN: See Comments Percocet 5 mg/325 mg*: 2 Tab, PO, Q4h, PRN: Pain - Severe Protonix: 40 mg, PO, ac bkfst Saline Flush*: 10 mL, IV Push, Q8h, PRN: See Comments Saline Flush*: 20 mL, IV Push, PRN, PRN: See Comments Saline Flush*: 20 mL, IV Push, PRN, PRN: See Comments Senokot Tab: 8.6 mg, PO, BID Tylenol*: 650 mg, PO, Q4h, PRN: See Comments Xopenex Inh Inna: 0.63 mg, Nebul, Resp QID Zofran Inj*: 4 mg, IV Push, Q8h, PRN: Nausea/Vomiting aspirin: 81 mg, PO, Daily atorvastatin: 20 mg, PO, Daily heparin: 5,000 Unit, Subcut, Q8h spironolactone: 25 mg, PO, Daily Documented Medications Documented Insulin Lantus: 64 Unit, Subcut, BID, Each, 0 Refill(s) NovoLOG FlexPen 100 unit/ml subcutaneous solution: 32 Unit, Subcut, TID, Each, 0 Refill(s) Plavix 75 mg oral tablet: 1 Tab, PO, Daily, Each, 0 Refill(s) Vitamin D3 5000 intl units oral tablet: 1 Tab, PO, Daily, Each, 0 Refill(s) amLODipine 10 mg oral tablet: 1 Tab, PO, Daily, Each, 0 Refill(s) aspirin 81 mg oral tablet: 1 Tab, PO, Daily, Each, 0 Refill(s) atenolol 50 mg oral tablet: 1 Tab, PO, Daily, Each, 0 Refill(s) atorvastatin 20 mg oral tablet: 1 Tab, PO, Daily, Each, 0 Refill(s) cyanocobalamin 100 mcg/ml injectable solution: 1 mL, IM, Month ([id number]), Each, 0 Refill(s) glipiZIDE 10 mg oral tablet, extended release: 1 Tab, PO, BID, Each, 0 Refill(s) hydroCHLOROthiazide 25 mg oral tablet: 1 Tab, PO, Daily, Each, 0 Refill(s) lisinopril 40 mg oral tablet: 1 Tab, PO, Daily, Each, 0 Refill(s) metFORMIN 500 mg oral tablet, extended release: 4 Tab, PO, Daily, Each, 0 Refill(s) Subjective _Pt s/e, sitting supine in bed, feels good. 1.5LNC, affirming no f/c overt cp/nvd. Min dyspnea robbin walking. Objective Last Charted Vital Signs Temperature: 98.6 (09/29 12:06) Pulse: 80 (09/29 12:06) Respiration: 16 (09/29 11:09) BP: 105/57 (09/29 12:06) Pulse Ox: 92 (09/29 12:06) Oxygen Delivery: Nasal cannula (09/29 12:) O2 Device Flow: 1.5 L/min Pain Score: 8 (09/29 09:57) Height: 108.34 cm /42.65 in (Type not Indicated) (09/21/2018 18:08:00) Weight: 107.1 kg/ 236 lbs 1.8 oz (Type not Indicated) (09/29/2018 05:30:00) Body Surface Area: 1.80 m2 Body Mass Index: 91.25 Intake and Output (Previous 24Hrs) I and O Summary Begin date: 09/28 14:22 End date: 09/29 14:22 24 Hour Intake: 880.00 Output: 350.00 Balance: 530.00 Last BM: No BM Charted Physical Exam: General: AO, appears stated age HEENT: ATNC, sclerae nonicteric, mmm Neck: Soft, trachea midline Heart: S1 S2, no murmur, no JVD Lungs: coarse bs, better air mvt, scant basilar crackles Abdomen/GI: soft, nontender, nondistended. Extremity/Musculoskeletal: Normal muscle tone, trace edema Neurologic: No gross focal weakness. No facial droop appreciated. Skin: Visible skin warm, dry, intact Results Review Labs - Last 36 hours (Max 2 / lab test) CHEMISTRY Sodium 132 (09/29 06:07) 135 (09/28 05:52) Potassium 4.4 (09/29 06:07) 4.5 (09/28 05:52) Chloride 99 (09/29 06:07) 101 (09/28 05:52) CO2 27 (09/29 06:07) 27 (09/28 05:52) Glucose 259 (09/29 06:07) 152 (09/28 05:52) Glucose POCT No result BUN 51 (09/29 06:07) 51 (09/28 05:52) Creatinine 1.57 (09/29 06:07) 1.79 (09/28 05:52) Calcium Total 7.9 (09/29 06:07) 8.1 (09/28 05:) Magnesium 2.4 (09/29 06:07) 2.5 (09/28 05:52) HEMATOLOGY WBC 6.2 (09/29 06:07) 8.3 (09/28 05:52) RBC 3.37 (09/29 06:07) 3.58 (09/28 05:52) Hb 9.4 (09/29 06:07) 10.0 (09/28 05:52) Hematocrit 28.5 (09/29 06:07) 30.6 (09/28 05:52) Platelets 102 (09/29 06:07) 93 (09/28 05:52) MCV 84.5 (09/29 06:07) 85.4 (09/28 05:52) MCH 27.8 (09/29 06:07) 28.0 (09/28 05:52) RDW 15.1 (09/29 06:07) 15.3 (09/28 05:52) MCHC 32.8 (09/29 06:07) 32.7 (09/28 05:52) Neutrophil Ab 4.50 (09/29 06:07) 5.90 (09/28 05:52) Monocyte Ab 0.70 (09/29 06:07) 1.10 (09/28 05:52) Eosinophil Ab 0.10 (09/29 06:07) 0.00 (09/28 05:52) Basophil Ab 0.00 (09/29 06:07) 0.00 (09/28 05:52) Lymphocyte Ab 0.90 (09/29 06:07) 1.20 (09/28 05:52) COAGULATION Partial Thromboplastin (aPTT) 27.8 Sec (09/27 05:52) 28.2 Sec (09/26 14:10) INR 1.28 (09/29 09:58) 1.37 (09/27 05:52) Prothrombintime (PT) 14.7 Sec (09/29 09:58) 15.8 Sec (09/27 05:52) OTHER LABS Anion Gap 6.0 mMol/L (09/29 06:07) 7.0 mMol/L (09/28 05:52) GFR Est. Non 44 mL/min (09/29 06:07) 38 mL/min (09/28 05:52) GFR Est. Berta 53 mL/min (09/29 06:07) 45 mL/min (09/28 05:52) MPV 9.3 FL (09/29 06:07) 9.0 FL (09/28 05:52) Neutrophil 72.0 % (09/29 06:07) 72.0 % (09/28 05:52) Lymphocyte 14.4 % (09/29 06:07) 14.5 % (09/28 05:52) Monocyte 11.7 % (09/29 06:07) 12.8 % (09/28 05:52) Eosinophil 1.5 % (09/29 06:07) 0.4 % (09/28 05:52) Basophil 0.4 % (09/29 06:07) 0.3 % (09/28 05:52) Blood 09/29/18 12:05:00 Glucose POCT-LA: 294 Comment: 09/26/18 18:21:00 Hematocrit POCT: 34 Hemoglobin POCT: 11.2 Sodium POCT: 141 Potassium POCT: 4.6 Calcium Ionized: 1.21 Lactate POCT: 1.6 09/22/18 12:22:00 Activated Clott: 188 Comment: Microbiology No results found General Results Lab/diagnostic studies personally reviewed. Supervising Physician Comments . Diagnosis Documentation . PROTHROMBIN TIME Collected: 09/29/2018 Status: F Source: [place] 9:58 AM [facility] REPOSITORY TYPE CODE TESTS RESULT OUT OF RANGE REFERENCE UNITS LAB 60843-2([place]) Normal INR 1.28 Result Comment: The recommended therapeutic INR range for most cardiac indications is 2.0-3.0. For high intensity therapy(ie.mechanical heart valves), the recommended range is 2.5-3.5. LAB 5902-2(LOINC) 9.3-12.4 Sec Prothrombin High Time (PT) 14.7 Performed By: #### 5902-2 #### [facility] [address], [place] PROGRESS NOTES Observed: 09/29/2018 Status: C Source: [place] 8:51 AM [facility] REPOSITORY Patient: LOVE PHELAN MRN: [id number] Age: 73 years Sex: Male : 1945 Associated Diagnoses: None Author: Jacques Rao 09/29/2018 08:51 SUBJECTIVE: Resting comfortably in bed this morning. Denies shortness of breath but had to be put back on oxygen because his pulse ox dropped to 89% while on room air. Ambulated 3 times without difficulty yesterday. OBJECTIVE: Temperature: 99.2 (09/29 04:15) Pulse: 74 (09/29 07:48) Respiration: 16 (09/29 07:48) BP: 155/74 (09/29 04:15) Pulse Ox: 94 (09/29 07:48) Oxygen Delivery: Nasal cannula (09/29 07:48) O2 Device Flow: 1.5 L/min Pain Score: 5 (09/28 20:39) I and O Summary Begin Date: 09/28/18 00:00 End Date: 09/28/18 23:59 Input: 970 Output: 0 Stools: 0 Other Output: 1600 Total Output: 1600 I and O Difference: -630 Weight: Today: 107.1 kg/ 236 lbs 1.8 oz (Type not Indicated) (09/29/18 05:30) Yest: No value charted Admit: No value charted Physical Exam: Gen: AOx3, NAD Lungs: decreased at the bases Cardio: RRR, no MRG Abdomen: soft, NT, ND, BS normal Extremities: warm, well perfused Neuro: no focal deficits Labs, meds, imaging reviewed Telemetry: Normal sinus rhythm Impression: -Acute heart failure; likely secondary to 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 In setting of acute CHF, renal insufficiency of unknown chronicity, and underlying CAD. -Chronic ischemic heart disease; s/p NH and multivessel stenting 2009. He had negative stress test 2014. -Carotid artery disease -HTN, uncontrolled. Pt reports difficult to control BP at baseline requiring ongoing up-titration of regimen. At home may trend 130-150s mmHg systolic. -HLD -DM2 -CKD stage III: Nephrology following. -Obesity PLAN: - wean O2 as able -Continue supportive care. -Continue aspirin, statin, beta-brisa -Incentive spirometry -Cardiac rehabilitation PHYSICIAN ADDENDUM NOTE I have personally seen and examined the patient and agree with the assessment of Jacques Warner PA-C with the following edits and additions. INTERIM HISTORY The patient denies any chest pain or dyspnea. Cough improved. PHYSICAL EXAMINATION Vital signs reviewed below Constitutional: The patient is alert and oriented and in no distress. Chest:The lungs are clear without rales or rhonchi. Cardiovascular: Regular rate and rhythm. S1, S2 normal. Variable intensity holosystolic murmur in the left lower sternal border. JVD is difficult to assess. Abdomen: Soft, non-tender. Bowel sounds normal. No pulsatile masses or organomegaly. Extremities: There is trace peripheral edema. Neurological: The patient is alert and oriented to person, place and time. Skin: No cyanosis. I have reviewed the Telemetry, I/Os, medications, laboratory data, EKGs and radiology images, summarized below and elsewhere in the medical records. Recovering nicely from bioprosthetic mitral valve replacement. -Continue aspirin, atorvastatin, Lasix and metoprolol. -Continue Coumadin. -Discharge planning per primary team Abdoulaye Stanford MD, [facility] Labs - Last 36 hours (Max 2 / lab test) CHEMISTRY Sodium 132 (09/29 06:07) 135 (09/28 05:52) Potassium 4.4 (09/29 06:07) 4.5 (09/28 05:52) Chloride 99 (09/29 06:07) 101 (09/28 05:52) CO2 27 (09/29 06:07) 27 (09/28 05:52) Glucose 259 (09/29 06:07) 152 (09/28 05:52) Glucose POCT No result BUN 51 (09/29 06:07) 51 (09/28 05:52) Creatinine 1.57 (09/29 06:07) 1.79 (09/28 05:52) Calcium Total 7.9 (09/29 06:07) 8.1 (09/28 05:52) Magnesium 2.4 (09/29 06:07) 2.5 (09/28 05:52) HEMATOLOGY WBC 6.2 (09/29 06:07) 8.3 (09/28 05:52) RBC 3.37 (09/29 06:07) 3.58 (09/28) Hb 9.4 (09/29 06:07) 10.0 (09/2852) Hematocrit 28.5 (09/29 06:07) 30.6 (09/2852) Platelets 102 (09/29 06:07) 93 (09/2852) MCV 84.5 (09/29 06:07) 85.4 (09/2852) MCH 27.8 (09/29 06:07) 28.0 (09/28) RDW 15.1 (09/29 06:07) 15.3 (09/28) MCHC 32.8 (09/29 06:07) 32.7 (09/28) Neutrophil Ab 4.50 (09/29 06:07) 5.90 (09/28) Monocyte Ab 0.70 (09/29 06:07) 1.10 (09/2852) Eosinophil Ab 0.10 (09/29 06:07) 0.00 (09/28) Basophil Ab 0.00 (09/29 06:07) 0.00 (09/28) Lymphocyte Ab 0.90 (09/29 06:07) 1.20 (09/28) COAGULATION Partial Thromboplastin (aPTT) 27.8 Sec (09/27 05:52) 28.2 Sec (09/26 14:10) INR 1.37 (09/27 05:52) 1.31 (09/26 14:10) Prothrombintime (PT) 15.8 Sec (09/27 05:52) 15.1 Sec (09/26 14:10) OTHER LABS Anion Gap 6.0 mMol/L (09/29 06:07) 7.0 mMol/L (09/28 05:52) GFR Est. Non 44 mL/min (09/29 06:07) 38 mL/min (09/2852) GFR Est. Bert[place] 53 mL/min (09/29 06:07) 45 mL/min (09/28) MPV 9.3 FL (09/29 06:) 9.0 FL (09/28) Neutrophil 72.0 % (09/29 06:) 72.0 % (09/28) Lymphocyte 14.4 % (09/29 06:) 14.5 % (09/28) Monocyte 11.7 % (09/29 06:07) 12.8 % (09/28) Eosinophil 1.5 % (09/29 06:07) 0.4 % (09/28) Basophil 0.4 % (09/29 06:) 0.3 % (09/28) Inpatient Medications: Insulin U100 Lispro per unit MDV (HumaLOG GEq) 8 Unit = 0.08 mL, Subcut, Inject, w/meals TID,, x 30 Day(s), 09/29/18 9:00:00 EST Last Dose: Not Given Insulin U100 glargine per unit MDV (Lantus GEq) 10 Unit = 0.1 mL, Subcut, Inject, Bedtime,, x 30 Day(s), 09/28/18 9:08:00 EST , Comment: Do Not Mix With Other InsulinsDo Not Administer IVAdminister Subcutaneously Last Dose: 09/28/18 22:14:00 PEG Powder 17 Gm (MiraLax GEq) 17 Gm = 1 Packet, PO, Powder, Daily,, x 30 Day(s), 09/27/18 11:20:00 EST , Comment: Mix with 4 to 8 oz. of water, juice, soda, coffee, or tea until completely dissolved. Last Dose: 09/28/18 09:01:00 Aspirin 81 mg Tab EC (Ecotrin GEq) 81 mg = 1 Tab, PO, Tab EC, Daily, x 30 Day(s), 09/27/18 11:20:00 EST , Comment: hold for platelet count less than 75,000 Last Dose: 09/28/18 09:00:00 Pantoprazole 40 mg Tab EC (Protonix GEq) 40 mg = 1 Tab, PO, Tab EC, ac bkfst,, x 30 Day(s), 09/27/18 11:20:00 EST , Comment: Do Not Chew, Crush Or Cut Tablet Last Dose: 09/29/18 06:10:00 Insulin U100 Lispro per unit MDV (HumaLOG GEq) Standard Scale, Inject, Subcut,, ac+bedtime, x 30 Day(s), 09/28/18 7:00:00 EST , Comment: << Sliding Scale Comments >> 0 - 60 Give 12.5 grams (25 mL) of Dextrose 50% for hypoglycemi Last Dose: 09/28/18 22:13:00 Senna 8.6 mg Tab (Senokot GEq) 1 Tab, PO, Tab, BID, x 30 Day(s),, 8.6 mg, 09/27/18 11:20:00 EST , Comment: please d/c if pt is having loose stool Last Dose: 09/28/18 22:14:00 Heparin 5,000 Units/mL Vial 1 mL (NT) 5,000 Unit = 1 mL, Subcut, Inject, Q8h, x 30 Day(s), 09/27/18 11:20:00 EST , Comment: Check daily for signs of bleeding and notify physician if bleeding noted. Last Dose: 09/29/18 06:10:00 Levalbuterol 0.63 mg/3 mL Inh Inna (Xopenex GEq) 0.63 mg = 3 mL, Nebul, Inna, Resp QID,, x 30 Day(s), 09/27/18 11:20:00 EST Last Dose: 09/29/18 07:46:00 Atorvastatin 20 mg Tab (Lipitor GEq) 20 mg = 1 Tab, PO, Tab, Daily,, x 30 Day(s), 09/27/18 8:08:00 EST Last Dose: 09/28/18 09:00:00 Metoprolol 25 mg Tab (Lopressor GEq) 25 mg = 1 Tab, PO, Tab, Q12h,, x 30 Day(s), 09/27/18 8:11:00 EST Last Dose: 09/28/18 22:14:00 Warfarin 2.5 mg Tab (Coumadin GEq) (unverified) 2.5 mg = 1 Tab, PO, Tab, Daily-Warf, x 30 Day(s), 09/29/18 8:49:00 EST, Atrial Fibrillation (INR Target: 2-3) , Comment: Review most current INR before administering. If INR is greater Last Dose: Not Given Warfarin Therapy* (unverified) Misc, Daily-Warf , Comment: Patient is on warfarin therapy. Confirm that there is an order for warfarin or warfarin is on hold. Last Dose: Not Given OxyCODONE/Acetaminophen 5 mg/325 mg Tab (Percocet GEq) 2 Tab, PO, Tab, Q4h, x 30 Day(s), PRN Pain - Severe, 09/27/18 11:20:00 EST , Comment: Maximum 4 Gm Acetaminophen/Day for Adults Last Dose: 09/28/18 03:11:00 HYDROcodone/Acetaminophen 5 mg/325 mg Tab ([place] 5 GEq) 2 Tab, PO, Tab, Q4h, x 30 Day(s), PRN Pain - Moderate, 09/27/18 11:20:00 EST , Comment: Maximum 4 Gm Acetaminophen/Day for Adults Last Dose: 09/28/18 20:39:00 Acetaminophen 325 mg Tab (Tylenol GEq) 650 mg = 2 Tab, PO, Tab, Q4h, PRN, See Comments, x 30 Day(s), 09/27/18 11:20:00 EST , Comment: PRN for headache or temperature greater than 101.4 F. Maximum 4 Gm Acetaminophen/Day Last Dose: Not Given Nitroglycerin Subl Tab 0.4 mg #25 (Nitrostat GEq) 0.4 mg = 1 Tab, Subl, Tab Subl, Q5min, PRN, See Comments, x 3 Time(s)/Dose(s), 09/27/18 11:20:00 EST Last Dose: Not Given Magnesium Hydroxide 8% Susp 30 mL (Milk of Magnesia) 30 mL, PO, Susp, PRN, x 30 Day(s), PRN Constipation, 2,400 mg, 09/27/18 11:20:00 EST Last Dose: Not Given Bisacodyl 10 mg Suppos (Dulcolax GEq) 10 mg = 1 Suppos, Rectal, Suppos, Daily, PRN, Constipation, x 30 Day(s), 09/27/18 11:20:00 EST Last Dose: Not Given Mylanta/Maalox Plus Susp 30 mL (GEq) 30 mL, PO, Susp, PRN, x 30 Day(s), PRN Indigestion/Heartburn, 09/27/18 11:20:00 EST , Comment: SHAKE WELL Last Dose: Not Given HYDROcodone/Acetaminophen 5 mg/325 mg Tab ([place] 5 GEq) 1 Tab, PO, Tab, Q4h, x 30 Day(s), PRN Pain - Mild, 09/27/18 11:20:00 EST , Comment: Maximum 4 Gm Acetaminophen/Day for Adults Last Dose: Not Given Glucagon 1 mg Vial (Glucagen GEq) 1 mg, Subcut, Inject, PRN, PRN, See Comments, x 30 Day(s), 09/27/18 11:20:00 EST , Comment: If IV access is not obtainable: For hypoglycemia blood glucose less than 60 mg/dL and patient Last Dose: Not Given Current IV Orders: Furosemide 10 mg/mL Vial 4 mL (Lasix GEq) 40 mg = 4 mL, IV Push, Inject, Once,, 09/29/18 8:42:00 EST , Comment: Administer at a rate of 20 mg/min (for IV Push) Last Dose: Not Given Atropine 0.1 mg/mL Syringe 10 mL 0.5 mg = 5 mL, IV Push, Inject, Q3min, PRN, See Comments, x 6 Time(s)/Dose(s), 09/27/18 11:20:00 EST , Comment: May repeat doses in 3 - 5 minutes up to a total of 3 mg. If pacing wires Last Dose: Not Given Ondansetron 2 mg/mL Inj 2 mL (Zofran GEq) 4 mg = 2 mL, IV Push, Inject, Q8h, PRN, Nausea/Vomiting, x 30 Day(s), 09/27/18 11:20:00 EST , Comment: Administer IV Over 2 Minutes Last Dose: Not Given Sodium Chloride 0.9% PF Flush Syringe 10 mL 10 mL, IV Push, Inject, Q8h, x 30 Day(s), PRN See Comments, 09/27/18 11:20:00 EST , Comment: Flush unused sideport introducer, discontinue when sideport removed. Last Dose: Not Given Sodium Chloride 0.9% PF Flush Syringe 10 mL 2.5 mL, IV Push, Inject, Q8h, x 30 Day(s), PRN See Comments, 09/27/18 11:20:00 EST , Comment: Flush unused peripheral IV site access Last Dose: Not Given Amiodarone 150 mg = 3 mL, IVPB, Once, PRN, See Comments, 09/27/18 11:20:00 EST Last Dose: Not Given Dextrose 50% Syringe 25 Gm/50 mL 12.5 Gm = 25 mL, IV Push, Inject, PRN, PRN, See Comments, x 30 Day(s), 09/27/18 11:20:00 EST Last Dose: Not Given Sodium Chloride 0.9% PF Flush Syringe 10 mL 10 mL, IV Push, Inject, Q8h, x, PRN See Comments, 09/25/18 19:49:00 EST Last Dose: 09/26/18 15:58:00 Sodium Chloride 0.9% PF Flush Syringe 10 mL 20 mL, IV Push, Inject, PRN, x 30 Day(s), PRN See Comments, 09/25/18 19:49:00 EST Last Dose: Not Given Sodium Chloride 0.9% PF Flush Syringe 10 mL 20 mL, IV Push, Inject, PRN, x 30 Day(s), PRN See Comments, 09/25/18 19:49:00 EST Last Dose: Not Given Dextrose 5%/NaCl 0.2% 500 mL 500 ml, 25 mL/hr, IV, x 30 Day(s), 500 mL, Infusion, 09/27/18 11:20:00 EST, 101.9 kg Last Dose: Not Given Amiodarone 450 mg [1 mg/min] + Sodium Chlor 0.9% Non- PVC 250 mL 250 ml, 33.33 mL/hr, IV, x 30 Day(s),, See Comments, 250 mL, 09/27/18 11:20:00 EST, 101.9 kg , Comment: GOAL EFFECT: Suppression of arrhythmia * USUAL INFUSION REGIMEN: 1 mg/min x 6 h Last Dose: Not Given PROGRESS NOTES Observed: 09/29/2018 Status: C Source: [facility] [place] 8:32 AM [facility] REPOSITORY Patient: LOVE PHELAN MRN: [id number] Age: 73 years Sex: Male : 1945 Associated Diagnoses: None Author: Abeba AMBROCIO, Akira Mcghee Supervising Physician Comments Assessment and Plan 1. Mitral regurg : POD #3 Right anterior mini thoracotomy; Mitral valve replacement with 27 mm Medtronic Weldon tissue valve - D/C on Q and pw - Aspirin/BB; Start coumadin for tissue MVR for 3 months. Protonix - Senna and miralax, Advance diet; Still no BM. Will give one time dose of lactulose tomorrow if no BM. - PEP therapy ordered with xoponex; Encouraged ambulation and IS; Wean O2 keeping sats above 90 % 2. HTN -BB -Hold amlodipine -Hold lisinopril 3. Hyperlipidemia - Statin therapy 4. Diabetes - SSI - Started on la over the weekend. Took 64 units at home - Also takes metformin and glipizide at home. Unsure if he should be on these given renal function - Spoke with Dr. Hong with [facility] and they will continue seeing to help with sugar management. 5. CKD stage III - Creat 1.59 which is at baseline - Spoke with renal and will try 40 mg IV lasix once - Urine output has been adequate. 6. CAD - Was on plavix. Will be on coumadin for valve prophylaxis. Will continue coumadin and asa for three months. After three months will transition back to dual antiplatelet therapy with asa and plavix. Dispo: Continue current. Today: 107.1 kg/ 236 lbs 1.8 oz (Type not Indicated) (09/29/18 05:30) Yest: No value charted Admit: No value charted 09/29/18 07:48:00 Pulse: 74 Respiration: 16 Pulse Ox: 94 Ox. Delivery: Nasal cannula General: Alert Neuro: Moves all extremities. Follows commands. Vital signs: VSS. Incision: Right lateral thoracotomy healing well. Chest tube site with serosan drainage. Right groin incision c/d/i with no seroma noted. Respiratory: Lungs are diminished in bases bilaterally. CXR: Reviewed Cardiovascular: Heart NSR; (+) Lower extremity edema; palpable dorsal pedis pulses bilaterally Gasrointestinal: Abdomen is soft, non tender. (+) Flatus; (-) BM Integumentary: Skin warm dry and intact 09/29/18 06:07, Hemoglobin = 9.4 gm/dL L 09/29/18 06:07, Hematocrit = 28.5 % L 09/29/18 06:07, WBC Count = 6.2 thou/mcL 09/29/18 06:07, Platelet Count = 102 thou/mcL L 09/27/18 05:52, PT = 15.8 Sec H 09/27/18 05:52, INR = 1.37 09/29/18 06:07, Sodium Level = 132 mMol/L L 09/29/18 06:07, Potassium Level = 4.4 mMol/L 09/29/18 06:07, Creatinine = 1.57 mg/dL H 09/29/18 06:07, BUN = 51 mg/dL H 09/22/18 05:46, TSH = 1.36 mcIU/mL 09/26/18 03:52, Bilirubin Total = 0.6 mg/dL 09/26/18 18:21, Glucose POCT = 207 mg/dL H 09/29/18 06:07, Glucose Level = 259 mg/dL H 09/22/18 05:46, Hemoglobin A1c = 9.0 % tl hgb H start coumadin diuresis glucose per int med d/c planning GLUCOSE POCT Collected: 09/29/2018 Status: F Source: [place] [place] (UPLOADED) 8:17 AM [facility]ALTH SYSTEM REPOSITORY TYPE CODE TESTS RESULT OUT OF REFERENCE UNITS RANGE LAB 2340-8(LOIN 70-110 mg/dL C) High Glucose 264 POCT-LAB Result Comment: Treatment ranges and critical values established by Patient Care Services. All follow-up actions were taken by Patient Care Services. Performed By: #### [id number] #### [facility] CBC WITH DIFFERENTIAL Collected: 09/29/2018 Status: F Source: [place] [place] 6:07 AM [facility] REPOSITORY TYPE CODE TESTS RESULT OUT OF REFERENCE UNITS RANGE LAB 50168-3(LO 40.0-70.0 % INC) High Neutrophil 72.0 LAB 39964-6(LO 80.0-97.0 FL INC) MCV Normal 84.5 LAB 91778-5(LO 0.0-7.0 % INC) Normal Eosinophil 1.5 LAB 75354-7(LO 11.0-14.8 % INC) RDW High 15.1 LAB 77420-3(LO 4.30-5.70 million/mcL INC) Low Red Blood Cell 3.37 Count LAB 704-7(LOIN 0.00-0.20 thou/mcL C) Normal Basophil 0.00 Absolute LAB 731-0(LOIN 1.00-4.80 thou/mcL C) Low Lymphocyte 0.90 Absolute LAB 05776-8(LO 0.0-12.0 % INC) Normal Monocyte 11.7 LAB 711-2(LOIN 0.00-0.70 thou/mcL C) Normal Eosinophil 0.10 Absolute LAB 82003-0(LO 39.0-49.0 % INC) Low Hematocrit 28.5 LAB 43421-9(LO 32.0-36.0 gm/dL INC) MCHC Normal 32.8 LAB 751-8(LOIN 1.80-7.70 thou/mcL C) Normal Neutrophil 4.50 Absolute LAB 05736-2(LO 22.0-44.0 % INC) Low Lymphocyte 14.4 LAB 46768-6(LO 4.6-10.2 thou/mcL INC) WBC Normal Count 6.2 LAB 36155-2(LO 27.0-34.0 Picograms INC) MCH Normal 27.8 LAB 97747-5(LO 6.2-12.1 FL INC) MPV Normal 9.3 LAB 718-7(LOIN 13.5-17.5 gm/dL C) Low Hemoglobin 9.4 LAB 35481-4(LO 142-424 thou/mcL INC) Low Platelet Count 102 LAB 50348-5(LO 0.0-2.0 % INC) Normal Basophil 0.4 LAB 742-7(LOIN 0.00-0.90 thou/mcL C) Normal Monocyte 0.70 Absolute Performed By: #### 48754-3 #### [facility] [address], [place] GFRAA Collected: 09/29/2018 Status: F Source: [place] 6:07 [facility] REPOSITORY TYPE CODE TESTS RESULT OUT OF RANGE REFERENCE UNITS LAB 55692-2(LO mL/min INC) GFR Normal Estimated 53 Result Comment: The MDRD equation has not been validated for those over 70 years, women, patients with serious co-morbid conditions, or with extremes of body size, muscle mass of nutritional status. Performed By: #### 31988-8, 96504-3m8, 19195-1, 16737-0 #### [facility] [address], [place] GFRBB Collected: 09/29/2018 Status: F Source: [place] 6:07 [facility] REPOSITORY TYPE CODE TESTS RESULT OUT OF RANGE REFERENCE UNITS LAB 87172-0(LO mL/min INC) GFR Normal Estimated Non 44 Performed By: #### 44804-9, 61742-0x3, 74378-8, 39125-1 #### [facility] [address], [place] MAGNESIUM LEVEL Collected: 09/29/2018 Status: F Source: [place] 6:07 [facility] REPOSITORY TYPE CODE TESTS RESULT OUT OF RANGE REFERENCE UNITS LAB 14864-1(LO 1.8-2.5 mg/dL INC) Normal Magnesium Level 2.4 Performed By: #### 85897-1, 26189-1e6, 96561-3, 16952-0 #### [facility] [address], [place] BASIC METABOLIC PANEL Collected: 09/29/2018 Status: F Source: [place] 6:07 [facility] REPOSITORY TYPE CODE TESTS RESULT OUT OF RANGE REFERENCE UNITS LAB 2160-0(HANY 0.60-1.30 mg/dL NC) High Creatinine 1.57 LAB 17947-5(LO 6.0-18.0 mMol/L INC) Anion Normal Gap 6.0 LAB 2028-9(HANY 22-32 mMol/L NC) Carbon Normal Dioxide Level 27 LAB 68260-4(LO 70-110 mg/dL INC) High Glucose Level 259 LAB 2951-2(HANY 136-145 mMol/L NC) Low Sodium Level 132 LAB 2075-0(HANY 98-107 mMol/L NC) Chloride Normal Level 99 LAB 58305-6(LO 8.9-10.3 mg/dL INC) Low Calcium Total 7.9 LAB 68076-9(LO 8-20 mg/dL INC) High BUN 51 LAB 2823-3(HANY 3.6-5.1 mMol/L NC) Normal Potassium Level 4.4 Performed By: #### 95715-4, 46048-8g7, 96681-5, 49603-8 #### [facility] [address], [place] XR CHEST 1 VIEW Observed: 09/29/2018 Status: F Source: [place] 5:16 AM [facility] REPOSITORY AP PORTABLE CHEST: 09/29/2018 5:16 AM COMPARISON: Multiple prior studies, including the most recent exam performed on 09/28/2018 CLINICAL INFORMATION: Status post cardiac surgery. Congestive heart failure. FINDINGS: See impression. IMPRESSION: 1. Stable cardiomediastinal silhouette, with moderate cardiomegaly. Changes of valvular surgery are noted. 2. Stable position of the right upper extremity PICC. 3. Interval increase in pulmonary vascular congestion pulmonary edema. 4. Small to moderate lateral pleural effusions, without significant change in size. 5. Stable lung volumes. No pneumothorax. Jed Velarde thanks you for the opportunity to care for your patient. Workstation ID: [id number] - [id number] FINAL REPORT Dictated By: Dane Harp MD 09/29/2018 06:18 Assigned Physician: Dane Harp MD Reviewed and Electronically Signed By: Dane Harp MD 09/29/2018 06:19 Transcribed by: CATERINA 09/29/2018 06:18 Technologist: CHINYERE SCHUMACHER GLUCOSE POCT Collected: 09/28/2018 Status: F Source: [facility] (UPLOADED) 10:01 PM [facility]ALTH SYSTEM REPOSITORY TYPE CODE TESTS RESULT OUT OF REFERENCE UNITS RANGE LAB 2340-8(LOIN 70-110 mg/dL C) High Glucose 276 POCT-LAB Result Comment: Treatment ranges and critical values established by Patient Care Services. All follow-up actions were taken by Patient Care Services. Performed By: #### [id number] #### [facility]INT [facility] CARE GLUCOSE POCT Collected: 09/28/2018 Status: F Source: [facility] (UPLOADED) 5:06 PM [facility]ALTH SYSTEM REPOSITORY TYPE CODE TESTS RESULT OUT OF REFERENCE UNITS RANGE LAB 2340-8(LOIN 70-110 mg/dL C) High Glucose 245 POCT-LAB Result Comment: Treatment ranges and critical values established by Patient Care Services. All follow-up actions were taken by Patient Care Services. Performed By: #### [id number] #### [facility]INT [facility] C[facility] PROGRESS NOTES Observed: 09/28/2018 Status: F Source: [facility] 2:09 PM [facility]ALTH SYSTEM REPOSITORY Patient: LOVE PHELAN MRN: [id number] Age: 73 years Sex: Male : 1945 Associated Diagnoses: None Author: Stephy AMBRIZ, Nica Dumont Impression and Plan IMPRESSION: Chronic kidney disease stage III- UPCR 0.9g/g and ultrasound w/ kidneys 13cm bilat presumably with diabetic nephropathy. Hypertension. Type 2 diabetes mellitus. Coronary artery disease status post multivessel PCI in 2009 as above. Severe mitral regurgitation, s/p MVR 09/26. PLAN: - renal funciton stable, making good urine. continue oral hydration Seun Keyes MD [facility] Pager: [phone] Subjective seen this am, transferred out of ICU, all the tubes, (CT, spence, CVC, etc) removed, feeling better, pain under control. Health Status Allergies Allergic Reactions (Selected) Mild Doxycycline- Hives. Objective Last Charted Vital Signs Temperature: 99.7 (09/28 07:40) Pulse: 79 (09/28 07:40) Respiration: 17 (09/28 07:40) BP: 116/67 (09/28 07:40) Pulse Ox: 94 (09/28 07:59) Oxygen Delivery: Nasal cannula (09/28 11:35) O2 Device Flow: 2 L/min Pain Score: 5 (09/28 12:00) EXAM: see vitals below General - somnolent, oriented x3, no acute distress Chest/Respiratory - CTs in place, no WRR noted Cardiovascular - Normal rate, regular rhythm without murmurs Abdomen/Gastrointestinal - Soft, nontender, nondistended, (+) bowel sounds. Musculoskeletal - No synovitis. No joint effusions or erythemia in knees, elbows, hands, wrists Extremities - trace edema. Neuropsych -awake and oriented Results Review Labs - Last 36 hours (Max 2 / lab test) CHEMISTRY Sodium 135 (09/28 05:52) 140 (09/27 05:52) Potassium 4.5 (09/28 05:52) 4.6 (09/27 05:52) Chloride 101 (09/28 05:52) 105 (09/27 05:52) CO2 27 (09/28 05:52) 25 (09/27 05:52) Glucose 152 (09/28 05:52) 126 (09/27 05:52) Glucose POCT No result BUN 51 (09/28 05:52) 50 (09/27 05:52) Creatinine 1.79 (09/28 05:52) 1.86 (09/27 05:52) Calcium Total 8.1 (09/28 05:52) 8.6 (09/27 05:52) Magnesium 2.5 (09/28 05:52) 2.7 (09/27 05:52) HEMATOLOGY WBC 8.3 (09/28) 8.3 (09/27) RBC 3.58 (09/28) 3.80 (09/27) Hb 10.0 (09/28) 10.6 (09/27) Hematocrit 30.6 (09/28) 31.5 (09/27) Platelets 93 (09/28) 97 (09/27) MCV 85.4 (09/28) 82.8 (09/27) MCH 28.0 (09/28) 27.9 (09/27) RDW 15.3 (09/28) 15.3 (09/27) MCHC 32.7 (09/28) 33.7 (09/27) Neutrophil Ab 5.90 (09/28) 6.70 (09/27) Monocyte Ab 1.10 (09/28) 0.90 (09/27) Eosinophil Ab 0.00 (09/28) 0.00 (09/27) Basophil Ab 0.00 (09/28) 0.00 (09/27) Lymphocyte Ab 1.20 (09/28) 0.70 (09/27) COAGULATION Partial Thromboplastin (aPTT) 27.8 Sec (09/2752) 28.2 Sec (09/26 14:10) INR 1.37 (09/27) 1.31 (09/26 14:10) Prothrombintime (PT) 15.8 Sec (09/2752) 15.1 Sec (09/26 14:10) OTHER LABS Anion Gap 7.0 mMol/L (09/28 05:52) 10.0 mMol/L (09/2752) GFR Est. Non 38 mL/min (09/28) 41 mL/min (09/26 14:10) GFR Est. Berta 45 mL/min (09/28) 50 mL/min (09/26 14:10) Alkaline Phosphatase 69 Units/L (09/26) ALT/SGPT 35 Units/L (09/26) AST/SGOT 29 Units/L (09/26) Bilirubin Total 0.6 mg/dL (09/26) Protein 6.8 gm/dL (09/26) Albumin Level 3.3 gm/dL (09/26) MPV 9.0 FL (09/28 05:52) 8.6 FL (09/2752) Neutrophil 72.0 % (09/28 05:) 80.8 % (09/27) Lymphocyte 14.5 % (09/28) 8.2 % (09/27) Monocyte 12.8 % (09/28) 10.7 % (09/27) Eosinophil 0.4 % (09/28 05:) 0.1 % (09/27) Basophil 0.3 % (09/28) 0.2 % (09/27 05:52) Blood Type ABO and Rh(D) BPOS (09/25 17:29) Antibody Screen Interpret NEGATIVE (09/25 17:29) Fresh Frozen Plasma: NOTNEED (09/25 15:39) Platelet Concentrate NOTNEED (09/25 15:39) GLUCOSE POCT Collected: 09/28/2018 Status: F Source: [facility] (UPLOADED) 11:49 AM HEALTH SYSTEM REPOSITORY TYPE CODE TESTS RESULT OUT OF REFERENCE UNITS RANGE LAB 2340-8(LOIN 70-110 mg/dL C) High Glucose 312 POCT-LAB Result Comment: Treatment ranges and critical values established by Patient Care Services. All follow-up actions were taken by Patient Care Services. Performed By: #### [id number] #### [facility] GLUCOSE POCT Collected: 09/28/2018 Status: F Source: [facility] (UPLOADED) 8:57 AM [facility]ALTH SYSTEM REPOSITORY TYPE CODE TESTS RESULT OUT OF REFERENCE UNITS RANGE LAB 2340-8(LOIN 70-110 mg/dL C) High Glucose 254 POCT-LAB Result Comment: Treatment ranges and critical values established by Patient Care Services. All follow-up actions were taken by Patient Care Services. Performed By: #### [id number] #### [facility] POINT [facility] CARE PROGRESS NOTES Observed: 09/28/2018 Status: C Source: [facility] 8:31 AM [facility] SYSTEM REPOSITORY Patient: LOVE PHELAN MRN: [id number] Age: 73 years Sex: Male : 1945 Associated Diagnoses: None Author: Manuela Ybarra CNP Supervising Physician Comments Assessment and Plan 1. Mitral regurg : POD #2 Right anterior mini thoracotomy; Mitral valve replacement with 27 mm Medtronic Weldon tissue valve - Stable post mvr, Pain Q ball for pain -PW intact - Statin/aspirin/BB - Senna and miralax, Advance diet - PEP therapy ordered; Encouraged ambulation and IS; Wean O2 keeping sats above 90 % - Will discuss with 2. HTN -Low dose BB with hold parameters, will use metoprolol -Hold amlodipine -Hold lisinopril 3. Hyperlipidemia - Statin therapy 4. Diabetes -SSI - Will start long acting 10units at pm and advance 5. CKD stage III Creat 1.79 continue to monitor Today: No value charted Yest: No value charted Admit: No value charted 09/28/18 07:59:00 Pulse Ox: 94 Ox. Delivery: Nasal cannula General: Alert and oriented times 3. No complaints at this time. Sitting up in the chair wih family present. Reviewed IS. Ambulating in the halls Neuro: Moves all extremities with no focal deficits noted. Vital signs: VSS. O2 sats 95% on 2L NC Incision: Right lateral drsg dry and intact, no bleeding Respiratory: Lungs are diminished in bases bilaterally. CXR: Reviewed Cardiovascular: Heart NSR with 1st AVB; (-) Lower extremity edema; palpable dorsal pedis pulses bilaterally Gasrointestinal: Abdomen is soft, non tender, active bowel sounds. (+) Flatus; (-) Belching; (-) BM Integumentary: Skin warm dry and intact 09/28/18 05:52, Hemoglobin = 10.0 gm/dL L 09/28/18 05:52, Hematocrit = 30.6 % L 09/28/18 05:52, WBC Count = 8.3 thou/mcL 09/28/18 05:52, Platelet Count = 93 thou/mcL L 09/27/18 05:52, PT = 15.8 Sec H 09/27/18 05:52, INR = 1.37 09/28/18 05:52, Sodium Level = 135 mMol/L L 09/28/18 05:52, Potassium Level = 4.5 mMol/L 09/28/18 05:52, Creatinine = 1.79 mg/dL H 09/28/18 05:52, BUN = 51 mg/dL H 09/22/18 05:46, TSH = 1.36 mcIU/mL 09/26/18 03:52, Bilirubin Total = 0.6 mg/dL 09/26/18 18:21, Glucose POCT = 207 mg/dL H 09/28/18 05:52, Glucose Level = 152 mg/dL H 09/22/18 05:46, Hemoglobin A1c = 9.0 % tl hgb H Seen with above. Doing well. No complaints. On-Q pump reservoir is not yet empty - will continue On-Q pump today. Incision looks good. Remove suture from base of neck and place steri-strip. Continue meds as is. PROGRESS NOTES Observed: 09/28/2018 Status: C Source: [facility] 6:52 AM [facility] SYSTEM REPOSITORY Patient: LOVE PHELAN MRN: [id number] Age: 73 years Sex: Male : 1945 Associated Diagnoses: None Author: Pedro Ibarra [facility] Cardiology Progress Note CC: Severe MR S/P mitral valve replacement with 27 mm Medtronic Weldon tissue valve through mini thoracotomy Subjective: Patient states he's feeling well, slept good last night. Primary evp: Dr Blanchard in [place] Objective: Vital signs, labs, MAR, telemetry reviewed. BUN 57, creatinine 1.79 down from 1.86 yesterday Physical Exam: General: Alert and oriented x 3, no acute distress Lungs: Clear bilaterally, respirations easy and unlabored Cardio: Normal rate, regular rhythm, nl S1/S2 Abdomen: Obese, appears nondistended Extremities: no edema Neuro: CHASE ??4, no focal deficit Skin: Dry with no apparent rashes Data echo 09/22/2018: Normal LV size and function, EF 60-65%. Normal RV size and function. Moderate left atrial enlargement. 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 This is likely severe based on doppler assessment. Consider CLAIRE for further assessment of the mitral valve. No other significant valvular or pericardial abnormalities noted. Procedure Summary - Patent 2010 stents in the left anterior descending artery and left circumflex artery. - The proximal RCA is occluded and is supplied by left to right collaterals (known since February 2010). - Markedly elevated LVEDP at 30 mmHg. - Markedly elevated PCWP at 25 mmHg. - The right atrial, right ventricular and pulmonary arterial pressures are at the upper limit of normal. - Normal cardiac output. Recommendations - Continue treatment for decompensated heart failure. - Further recommendations regarding mitral valve repair/replacement +/- RCA revascularization per cardiac surgery team. - Lifestyle modifications and optimal medical therapy for CAD secondary prevention. CLAIRE 09/24/18: LVEF 60-65% Normal RV structure and function Moderate left atrial enlargement Small PFO with holk-ew-dgeyt shunt. No right to left shunting demonstrated per bubble study Mild diffuse mitral valve leaflet thickening with flail anterior leaflet at A3 segmented Severe MR with ER0 0.24 cm?? No mitral stenosis mean gradient 2 mmHg. Stress test 2014: No ischemia per EMR. Cardiac cath 2009: LAD 85% followed by 80% stenosis. LCx 90%. RCA 100%. Per EMR, all vessels intervened upon with PCI and stenting (details unknown). 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 In setting of acute CHF, renal insufficiency of unknown chronicity, and underlying CAD. -Chronic ischemic heart disease; s/p NH and multivessel stenting 2009. He had negative stress test 2014. -Carotid artery disease -HTN, uncontrolled. Pt reports difficult to control BP at baseline requiring ongoing up-titration of regimen. At home may trend 130-150s mmHg systolic. -HLD -DM2 -CKD stage III: Nephrology following. -Obesity PLAN: - wean O2 -Continue supportive care. -Continue aspirin, statin, beta-brisa -Incentive spirometry -CXR pending -Cardiac rehabilitation Addendum: Added by Jadyn Gomez M.D. 09/28/2018 11:40 The patient was personally seen and examined. Chart and laboratory studies reviewed. Discussed with WILLIE Marr. Agree with above impression and recommendations. Lungs: Diminished breath sounds in both bases. Scattered bilateral rhonchi. Cardiac: Normal S1 and S2, with a grade 2/6 systolic murmur at the left sternal border. No gallop present. Abdomen: Audible bowel sounds, without organomegaly or mass. Extremities: Without clubbing or cyanosis. Trace edema both extremities to the knees. The patient states he is feeling well today. He had a good night's sleep. The patient's cardiac rhythm remains normal sinus on telemetry. No changes are recommended today to the patient's cardiovascular medical regimen. Vital Signs (Past 36 Hours) Last Charted Minimum Maximum Temperature 97.6 (09/28 04:02) 97.5 (09/28 04:02) 99.2 (09/27 12:10) Pulse 75 (09/28 04:02) 71 (09/27 13:00) 81 (09/26 23:14) Resp 16 (09/28 04:02) 15 (09/27 03:00) 25 (09/27 00:20) Pulse Ox 95 (09/28 04:02) 90 (09/27 01:00) 98 (09/26 20:00) Pain Score 4 (09/28 04:02) 2 (09/27 13:00) 10 (09/28 02:11) BP 127/60 (09/28 04:02) Minimum Maximum Systolic BP 111/49 (09/27 01:00) 143/68 (09/27 12:10) Diastolic BP 125/46 (09/27 03:00) 117/77 (09/28 00:35) . I and O Summary Begin date: 09/27 06:52 End date: 09/28 06:52 24 Hour Intake: 550.20 Output: 730.00 Balance: -179.80 Last BM: No BM Charted. Labs - Last 36 hours (Max 2 / lab test) CHEMISTRY Sodium 135 (09/28 05:52) 140 (09/27 05:52) Potassium 4.5 (09/28 05:52) 4.6 (09/27 05:52) Chloride 101 (09/28 05:52) 105 (09/27 05:52) CO2 27 (09/28 05:52) 25 (09/27 05:52) Glucose 152 (09/28 05:52) 126 (09/27 05:52) Glucose POCT No result BUN 51 (09/28 05:52) 50 (09/27 05:52) Creatinine 1.79 (09/28 05:52) 1.86 (09/27 05:52) Calcium Total 8.1 (09/28 05:52) 8.6 (09/27 05:52) Magnesium 2.5 (09/28 05:52) 2.7 (09/27 05:52) HEMATOLOGY WBC 8.3 (09/28 05:52) 8.3 (09/27 05:52) RBC 3.58 (09/28 05:52) 3.80 (09/27 05:52) Hb 10.0 (09/28 05:52) 10.6 (12/01 05:52) Hematocrit 30.6 (09/28) 31.5 (09/27) Platelets 93 (09/28) 97 (09/27) MCV 85.4 (09/28) 82.8 (09/27) MCH 28.0 (09/28) 27.9 (09/27) RDW 15.3 (09/28) 15.3 (09/27) MCHC 32.7 (09/28) 33.7 (09/27) Neutrophil Ab 5.90 (09/28) 6.70 (09/27) Monocyte Ab 1.10 (09/28) 0.90 (09/27) Eosinophil Ab 0.00 (09/28) 0.00 (09/27) Basophil Ab 0.00 (09/28) 0.00 (09/27) Lymphocyte Ab 1.20 (09/28) 0.70 (09/27) COAGULATION Partial Thromboplastin (aPTT) 27.8 Sec (09/27) 28.2 Sec (09/26 14:10) INR 1.37 (09/2752) 1.31 (09/26 14:10) Prothrombintime (PT) 15.8 Sec (09/2752) 15.1 Sec (09/26 14:10) OTHER LABS Anion Gap 7.0 mMol/L (09/28) 10.0 mMol/L (09/27) GFR Est. Non 38 mL/min (09/28) 41 mL/min (09/26 14:10) GFR Est. Berta 45 mL/min (09/28) 50 mL/min (09/26 14:10) Alkaline Phosphatase 69 Units/L (09/26) ALT/SGPT 35 Units/L (09/26) AST/SGOT 29 Units/L (09/26) Bilirubin Total 0.6 mg/dL (09/26) Protein 6.8 gm/dL (09/26) Albumin Level 3.3 gm/dL (09/26) MPV 9.0 FL (09/28) 8.6 FL (09/27) Neutrophil 72.0 % (09/28) 80.8 % (09/27) Lymphocyte 14.5 % (09/28) 8.2 % (09/27) Monocyte 12.8 % (09/28) 10.7 % (09/27) Eosinophil 0.4 % (09/28) 0.1 % (09/27) Basophil 0.3 % (09/28) 0.2 % (09/27) Blood Type ABO and Rh(D) BPOS (09/25 17:) Antibody Screen Interpret NEGATIVE (09/25 17:) Fresh Frozen Plasma: NOTNEED (09/25 15:39) Platelet Concentrate NOTNEED (09/25 15:39) . Inpatient Medications: PEG Powder 17 Gm (MiraLax GEq) 17 Gm = 1 Packet, PO, Powder, Daily,, x 30 Day(s), 09/27/18 11:20:00 EST , Comment: Mix with 4 to 8 oz. of water, juice, soda, coffee, or tea until completely dissolved. Last Dose: Not Given Aspirin 81 mg Tab EC (Ecotrin GEq) 81 mg = 1 Tab, PO, Tab EC, Daily, x 30 Day(s), 09/27/18 11:20:00 EST , Comment: hold for platelet count less than 75,000 Last Dose: Not Given Pantoprazole 40 mg Tab EC (Protonix GEq) 40 mg = 1 Tab, PO, Tab EC, ac bkfst,, x 30 Day(s), 09/27/18 11:20:00 EST , Comment: Do Not Chew, Crush Or Cut Tablet Last Dose: 09/28/18 06:00:00 Insulin U100 Lispro per unit MDV (HumaLOG GEq) Standard Scale, Inject, Subcut,, ac+bedtime, x 30 Day(s), 09/28/18 7:00:00 EST , Comment: << Sliding Scale Comments >> 0 - 60 Give 12.5 grams (25 mL) of Dextrose 50% for hypoglycemi Last Dose: Not Given Senna 8.6 mg Tab (Senokot GEq) 1 Tab, PO, Tab, BID, x 30 Day(s),, 8.6 mg, 09/27/18 11:20:00 EST , Comment: please d/c if pt is having loose stool Last Dose: 09/27/18 20:15:00 Heparin 5,000 Units/mL Vial 1 mL (NT) 5,000 Unit = 1 mL, Subcut, Inject, Q8h, x 30 Day(s), 09/27/18 11:20:00 EST , Comment: Check daily for signs of bleeding and notify physician if bleeding noted. Last Dose: 09/28/18 05:59:00 Levalbuterol 0.63 mg/3 mL Inh Inna (Xopenex GEq) 0.63 mg = 3 mL, Nebul, Inna, Resp QID,, x 30 Day(s), 09/27/18 11:20:00 EST Last Dose: 09/27/18 20:07:00 Atorvastatin 20 mg Tab (Lipitor GEq) 20 mg = 1 Tab, PO, Tab, Daily,, x 30 Day(s), 09/27/18 8:08:00 EST Last Dose: 09/27/18 08:57:00 Metoprolol 25 mg Tab (Lopressor GEq) 12.5 mg = 0.5 Tab, PO, Tab, Q12h,, x 30 Day(s), 09/27/18 8:11:00 EST , Comment: Hold for sbp less than 100 or HR less than 60 Last Dose: 09/27/18 23:02:00 OxyCODONE/Acetaminophen 5 mg/325 mg Tab (Percocet GEq) 2 Tab, PO, Tab, Q4h, x 30 Day(s), PRN Pain - Severe, 09/27/18 11:20:00 EST , Comment: Maximum 4 Gm Acetaminophen/Day for Adults Last Dose: 09/28/18 03:11:00 HYDROcodone/Acetaminophen 5 mg/325 mg Tab ([place] 5 GEq) 2 Tab, PO, Tab, Q4h, x 30 Day(s), PRN Pain - Moderate, 09/27/18 11:20:00 EST , Comment: Maximum 4 Gm Acetaminophen/Day for Adults Last Dose: Not Given Acetaminophen 325 mg Tab (Tylenol GEq) 650 mg = 2 Tab, PO, Tab, Q4h, PRN, See Comments, x 30 Day(s), 09/27/18 11:20:00 EST , Comment: PRN for headache or temperature greater than 101.4 F. Maximum 4 Gm Acetaminophen/Day Last Dose: Not Given Nitroglycerin Subl Tab 0.4 mg #25 (Nitrostat GEq) 0.4 mg = 1 Tab, Subl, Tab Subl, Q5min, PRN, See Comments, x 3 Time(s)/Dose(s), 09/27/18 11:20:00 EST Last Dose: Not Given Magnesium Hydroxide 8% Susp 30 mL (Milk of Magnesia) 30 mL, PO, Susp, PRN, x 30 Day(s), PRN Constipation, 2,400 mg, 09/27/18 11:20:00 EST Last Dose: Not Given Bisacodyl 10 mg Suppos (Dulcolax GEq) 10 mg = 1 Suppos, Rectal, Suppos, Daily, PRN, Constipation, x 30 Day(s), 09/27/18 11:20:00 EST Last Dose: Not Given Mylanta/Maalox Plus Susp 30 mL (GEq) 30 mL, PO, Susp, PRN, x 30 Day(s), PRN Indigestion/Heartburn, 09/27/18 11:20:00 EST , Comment: SHAKE WELL Last Dose: Not Given HYDROcodone/Acetaminophen 5 mg/325 mg Tab ([place] 5 GEq) 1 Tab, PO, Tab, Q4h, x 30 Day(s), PRN Pain - Mild, 09/27/18 11:20:00 EST , Comment: Maximum 4 Gm Acetaminophen/Day for Adults Last Dose: Not Given Glucagon 1 mg Vial (Glucagen GEq) 1 mg, Subcut, Inject, PRN, PRN, See Comments, x 30 Day(s), 09/27/18 11:20:00 EST , Comment: If IV access is not obtainable: For hypoglycemia blood glucose less than 60 mg/dL and patient Last Dose: Not Given Bupivacaine 0.5% Pain Ball 270 mL 270 ml, 5 mL/hr, Subcut, x 30 Day(s), 270 mL, Infusion, 09/26/18 6:58:00 EST, 101.9 kg Last Dose: Not Given Current IV Orders: CeFAZolin 2 Gm, IV, Q8h,, x 5 Time(s)/Dose(s), 09/26/18 13:52:00 EST, Prophylaxis , Comment: Refrigerate Last Dose: 09/28/18 05:58:00 Atropine 0.1 mg/mL Syringe 10 mL 0.5 mg = 5 mL, IV Push, Inject, Q3min, PRN, See Comments, x 6 Time(s)/Dose(s), 09/27/18 11:20:00 EST , Comment: May repeat doses in 3 - 5 minutes up to a total of 3 mg. If pacing wires Last Dose: Not Given Ondansetron 2 mg/mL Inj 2 mL (Zofran GEq) 4 mg = 2 mL, IV Push, Inject, Q8h, PRN, Nausea/Vomiting, x 30 Day(s), 09/27/18 11:20:00 EST , Comment: Administer IV Over 2 Minutes Last Dose: Not Given Sodium Chloride 0.9% PF Flush Syringe 10 mL 10 mL, IV Push, Inject, Q8h, x 30 Day(s), PRN See Comments, 09/27/18 11:20:00 EST , Comment: Flush unused sideport introducer, discontinue when sideport removed. Last Dose: Not Given Sodium Chloride 0.9% PF Flush Syringe 10 mL 2.5 mL, IV Push, Inject, Q8h, x 30 Day(s), PRN See Comments, 09/27/18 11:20:00 EST , Comment: Flush unused peripheral IV site access Last Dose: Not Given Amiodarone 150 mg = 3 mL, IVPB, Once, PRN, See Comments, 09/27/18 11:20:00 EST Last Dose: Not Given Dextrose 50% Syringe 25 Gm/50 mL 12.5 Gm = 25 mL, IV Push, Inject, PRN, PRN, See Comments, x 30 Day(s), 09/27/18 11:20:00 EST Last Dose: Not Given Sodium Chloride 0.9% PF Flush Syringe 10 mL 10 mL, IV Push, Inject, Q8h, x, PRN See Comments, 09/25/18 19:49:00 EST Last Dose: 09/26/18 15:58:00 Sodium Chloride 0.9% PF Flush Syringe 10 mL 20 mL, IV Push, Inject, PRN, x 30 Day(s), PRN See Comments, 09/25/18 19:49:00 EST Last Dose: Not Given Sodium Chloride 0.9% PF Flush Syringe 10 mL 20 mL, IV Push, Inject, PRN, x 30 Day(s), PRN See Comments, 09/25/18 19:49:00 EST Last Dose: Not Given Insulin Human Regular 100 Unit [1 Unit/hr] + Sodium Chloride 0.9% 100 mL 100 ml, 1 mL/hr, IV, x, 100 mL, 09/26/18 13:52:00 EST, 101.9 kg , Comment: Titration ParametersGlucose <60 or >250If below 60 decrease 1 ml/hr and give 25 ml D5060 - 80: Decrease in Last Dose: 09/28/18 05:47:00 Dextrose 5%/NaCl 0.2% 500 mL 500 ml, 25 mL/hr, IV, x 30 Day(s), 500 mL, Infusion, 09/27/18 11:20:00 EST, 101.9 kg , Comment: Start if the patient's condition becomes unstable, or if it is apparent that an IV medi Last Dose: Not Given Amiodarone 450 mg [1 mg/min] + Sodium Chlor 0.9% Non- PVC 250 mL 250 ml, 33.33 mL/hr, IV, x 30 Day(s),, See Comments, 250 mL, 09/27/18 11:20:00 EST, 101.9 kg , Comment: GOAL EFFECT: Suppression of arrhythmia * USUAL INFUSION REGIMEN: 1 mg/min x 6 h Last Dose: Not Given XR CHEST 1 VIEW Observed: 09/28/2018 Status: F Source: [facility] 6:50 AM [facility] SYSTEM REPOSITORY EXAMINATION TYPE: XR Chest 1 View DATE OF EXAM : 09/28/2018 6:50 AM HISTORY: Post Cardiac Surgery COMPARISON: September 27, 2018. FINDINGS/IMPRESSION: [place]a catheters been removed. Right PICC tip to cavoatrial junction. Low lung volumes. Valve prosthesis noted. Mild enlargement of cardiac silhouette. Mild somewhat linear bibasilar opacities w hich may be due to atelectasis, similar to prior. Small left pleural effusion. No pneumothorax. Jed Velarde thanks you for the opportunity to care for your patient. Workstation ID: [id number] - [id number] FINAL REPORT Dictated By: Matthew Jones MD 09/28/2018 07:58 Assigned Physician: Matthew Jones MD Reviewed and Electronically Signed By: Matthew Jones MD 09/28/2018 07:59 Transcribed by: CATERINA 09/28/2018 07:58 Technologist: WINSOME ROBISON CBC WITH DIFFERENTIAL Collected: 09/28/2018 Status: F Source: [facility] 5:52 AM [facility] REPOSITORY TYPE CODE TESTS RESULT OUT OF REFERENCE UNITS RANGE LAB 91397-8(LO 27.0-34.0 Picograms INC) MCH Normal 28.0 LAB 751-8(LOIN 1.80-7.70 thou/mcL C) Normal Neutrophil 5.90 Absolute LAB 06846-0(LO 0.0-2.0 % INC) Normal Basophil 0.3 LAB 704-7(LOIN 0.00-0.20 thou/mcL C) Normal Basophil 0.00 Absolute LAB 08177-0(LO 4.6-10.2 thou/mcL INC) WBC Normal Count 8.3 LAB 18968-7(LO 0.0-7.0 % INC) Normal Eosinophil 0.4 LAB 56997-6(LO 6.2-12.1 FL INC) MPV Normal 9.0 LAB 711-2(LOIN 0.00-0.70 thou/mcL C) Normal Eosinophil 0.00 Absolute LAB 73147-6(LO 80.0-97.0 FL INC) MCV Normal 85.4 LAB 82437-6(LO 0.0-12.0 % INC) High Monocyte 12.8 LAB 10295-6(LO 142-424 thou/mcL INC) Low Platelet Count 93 Result Comment: SLIDE PREVIOUSLY REVIEWED EM 09/28/18 06:28 LAB 86507-6(LOINC) 39.0-49.0 % Low Hematocrit 30.6 LAB 742-7(LOINC) 0.00-0.90 thou/m cL Monocyte High Absolute 1.10 LAB 97779-7(LOINC) 11.0-14.8 % RDW High 15.3 LAB 718-7(LOINC) 13.5-17.5 gm/dL Low Hemoglobin 10.0 LAB 97211-5(LOINC) 22.0-44.0 % Low Lymphocyte 14.5 LAB 731-0(LOINC) 1.00-4.80 thou/m cL Normal Lymphocyte Absolute 1.20 LAB 86315-3(LOINC) 32.0-36.0 gm/dL MCHC Normal 32.7 LAB 29282-4(LOINC) 4.30-5.70 millio Low n/mcL Red Blood Cell Count 3.58 LAB 64767-0(LOINC) 40.0-70.0 % High Neutrophil 72.0 Performed By: #### 49751-7 #### [facility] [address], [place] GFRAA Collected: 09/28/2018 Status: F Source: [place] 5:[facility] REPOSITORY TYPE CODE TESTS RESULT OUT OF RANGE REFERENCE UNITS LAB 04816-8(LO mL/min INC) GFR Normal Estimated 45 Result Comment: The MDRD equation has not been validated for those over 70 years, women, patients with serious co-morbid conditions, or with extremes of body size, muscle mass of nutritional status. Performed By: #### 71366-2, 85487-0p4, 86349-6, 15333-1 #### [facility] [address], [place] GFRBB Collected: 09/28/2018 Status: F Source: [place] 5:52 [facility] REPOSITORY TYPE CODE TESTS RESULT OUT OF RANGE REFERENCE UNITS LAB 00229-4(LO mL/min INC) GFR Normal Estimated Non 38 Performed By: #### 01925-7, 99403-0p7, 14381-7, 15977-7 #### [facility] [address], [place] MAGNESIUM LEVEL Collected: 09/28/2018 Status: F Source: [place] 5:52 [facility] REPOSITORY TYPE CODE TESTS RESULT OUT OF RANGE REFERENCE UNITS LAB 92201-8(LO 1.8-2.5 mg/dL INC) Normal Magnesium Level 2.5 Performed By: #### 71324-7, 75980-1o2, 32179-2, 76273-6 #### [facility] [address], [place] BASIC METABOLIC PANEL Collected: 09/28/2018 Status: F Source: [place] 5:52 [facility] REPOSITORY TYPE CODE TESTS RESULT OUT OF RANGE REFERENCE UNITS LAB 2075-0(HANY 98-107 mMol/L NC) Chloride Normal Level 101 LAB 89048-9(LO 70-110 mg/dL INC) High Glucose Level 152 LAB 2951-2(HANY 136-145 mMol/L NC) Low Sodium Level 135 LAB 2823-3(HANY 3.6-5.1 mMol/L NC) Normal Potassium Level 4.5 LAB 47708-3(LO 8.9-10.3 mg/dL INC) Low Calcium Total 8.1 LAB 19829-4(LO 8-20 mg/dL INC) High BUN 51 LAB 2160-0(HANY 0.60-1.30 mg/dL NC) High Creatinine 1.79 LAB 97651-1(LO 6.0-18.0 mMol/L INC) Anion Normal Gap 7.0 LAB 2028-9(HANY 22-32 mMol/L NC) Carbon Normal Dioxide Level 27 Performed By: #### 00464-2, 69556-7b2, 21839-4, 12323-4 #### [facility] [address], [place] GLUCOSE POCT Collected: 09/28/2018 Status: F Source: [place] (UPLOADED) 5:47 AM [facility] REPOSITORY TYPE CODE TESTS RESULT OUT OF REFERENCE UNITS RANGE LAB 2340-8(LOIN 70-110 mg/dL C) High Glucose 163 POCT-LAB Result Comment: Treatment ranges and critical values established by Patient Care Services. All follow-up actions were taken by Patient Care Services. Performed By: #### 2430-8 #### [facility] GLUCOSE POCT Collected: 09/28/2018 Status: F Source: [place] (UPLOADED) 4:01 AM [facility] REPOSITORY TYPE CODE TESTS RESULT OUT OF REFERENCE UNITS RANGE LAB 2340-8(LOIN 70-110 mg/dL C) High Glucose 183 POCT-LAB Result Comment: Treatment ranges and critical values established by Patient Care Services. All follow-up actions were taken by Patient Care Services. Performed By: #### 2430-8 #### [facility] OSMOLALITY URINE Collected: 09/28/2018 Status: F Source: [place] 2:00 AM [facility] REPOSITORY TYPE CODE TESTS RESULT OUT OF RANGE REFERENCE UNITS LAB 2695-5(HANY mOsm/kg NC) Normal Osmolality Urine 580 Performed By: #### 2695-5 #### [facility], [address] [place], [place] #### 98689-8, 58554-1, 2078-4, 2955-3 #### [facility] [address], [place] #### 73500-0 #### [facility] [address], [place] CREATININE RANDOM Collected: 09/28/2018 Status: F Source: [place] URINE 2:00 AM [facility] REPOSITORY TYPE CODE TESTS RESULT OUT OF RANGE REFERENCE UNITS LAB 2161-8(HANY mg/dL NC) Normal Creatinine Urine 135.00 Performed By: #### 2695-5 #### [facility], [address] [place], [place] #### 02048-4, 63921-2, 2078-4, 2955-3 #### [facility] [address] [place] [address] #### 07655-1 #### [facility] [address], [place] PROTEIN CREATININE Collected: 09/28/2018 Status: F Source: [facility] URINE 2:00 AM [facility] REPOSITORY TYPE CODE TESTS RESULT OUT OF RANGE REFERENCE UNITS LAB 11166-9(LO INC) Protein Normal / Creatinine 0.6 Ratio Urine Result Comment: Reference Intervals: Normal Proteinuria = <0.1 Mild Proteinuria = 0.1 - 1.0 Moderate Proteinuria = 1.0 - 10.0 Heavy Proteinuria = >10.0 LAB 2888-6(LOINC) <11.9 mg/dL Protein High Random Urine 75.9 LAB 2161-8(LOINC) mg/dL Normal Creatinine Urine 135.00 Performed By: #### 2695-5 #### [facility], [address] [place] [address] #### 29213-7, 01093-0, 2078-4, 2955-3 #### [facility] [address] [place] [address] #### 02547-3 #### [facility] [address], [place] CHLORIDE RANDOM URINE Collected: 09/28/2018 Status: F Source: [place] 2:00 AM [facility] REPOSITORY TYPE CODE TESTS RESULT OUT OF RANGE REFERENCE UNITS LAB 8-4(HANY mMol/L NC) Normal Chloride 18 Random Urine Performed By: #### 2695-5 #### [facility], [address] [place] [address] #### 01970-8, 11992-1, 2078-4, 2955-3 #### [facility] [address] [place] [address] #### 19366-1 #### [facility] [address], [place] SODIUM RANDOM URINE Collected: 09/28/2018 Status: F Source: [place] 2:00 AM [facility] REPOSITORY TYPE CODE TESTS RESULT OUT OF RANGE REFERENCE UNITS LAB 2955-3(LOIN 30-90 mMol/L C) Normal Sodium Random 61 Urine Performed By: #### 2695-5 #### [facility], [address] [place] [address] #### 51615-1, 51350-1, 2078-4, 2955-3 #### [facility] [address] [place] [address] #### 23423-3 #### [facility] [address], [place] MICROALBUMIN RANDOM Collected: 09/28/2018 Status: F Source: [place] URINE 2:00 AM [facility] REPOSITORY TYPE CODE TESTS RESULT OUT OF REFERENCE UNITS RANGE LAB 2161-8(HANY mg/dL NC) Creatinine Normal Urine 129.32 LAB 93412-5(LO <30 mg/Gm INC) Microalbumin High Creatinine Ratio 352 Urine Performed By: #### 2695-5 #### [facility], [address] [place] [address] #### 89211-8, 22423-8, 8-4, 2955-3 #### [facility] [address] [place] [address] #### 39907-8 #### [facility] [address], [place] GLUCOSE POCT Collected: 09/28/2018 Status: F Source: [place] (UPLOADED) 1:41 AM [facility] REPOSITORY TYPE CODE TESTS RESULT OUT OF REFERENCE UNITS RANGE LAB 2340-8(LOIN 70-110 mg/dL C) High Glucose 157 POCT-LAB Result Comment: Treatment ranges and critical values established by Patient Care Services. All follow-up actions were taken by Patient Care Services. Performed By: #### 2430-8 #### [facility] GLUCOSE POCT Collected: 09/27/2018 Status: F Source: [place] (UPLOADED) 11:09 PM [facility] SYSTEM REPOSITORY TYPE CODE TESTS RESULT OUT OF REFERENCE UNITS RANGE LAB 2340-8(LOIN 70-110 mg/dL C) High Glucose 149 POCT-LAB Result Comment: Treatment ranges and critical values established by Patient Care Services. All follow-up actions were taken by Patient Care Services. Performed By: #### 2430-8 #### [facility] GLUCOSE POCT Collected: 09/27/2018 Status: F Source: [place] (UPLOADED) 9:03 PM [facility] REPOSITORY TYPE CODE TESTS RESULT OUT OF REFERENCE UNITS RANGE LAB 2340-8(LOIN 70-110 mg/dL C) High Glucose 150 POCT-LAB Result Comment: Treatment ranges and critical values established by Patient Care Services. All follow-up actions were taken by Patient Care Services. Performed By: #### 2430-8 #### [facility] GLUCOSE POCT Collected: 09/27/2018 Status: F Source: [place] (UPLOADED) 7:40 PM [facility] SYSTEM REPOSITORY TYPE CODE TESTS RESULT OUT OF REFERENCE UNITS RANGE LAB 2340-8(LOIN 70-110 mg/dL C) High Glucose 155 POCT-LAB Result Comment: Treatment ranges and critical values established by Patient Care Services. All follow-up actions were taken by Patient Care Services. Performed By: #### 2430-8 #### [facility] GLUCOSE POCT Collected: 09/27/2018 Status: F Source: [place] (UPLOADED) 5:11 PM [facility] REPOSITORY TYPE CODE TESTS RESULT OUT OF REFERENCE UNITS RANGE LAB 2340-8(LOIN 70-110 mg/dL C) High Glucose 124 POCT-LAB Result Comment: Treatment ranges and critical values established by Patient Care Services. All follow-up actions were taken by Patient Care Services. Performed By: #### 2430-8 #### [facility] GLUCOSE POCT Collected: 09/27/2018 Status: F Source: [place] (UPL[place]ADED) 3:28 PM [facility] REPOSITORY TYPE CODE TESTS RESULT OUT OF REFERENCE UNITS RANGE LAB 2340-8(LOIN 70-110 mg/dL C) High Glucose 114 POCT-LAB Result Comment: Treatment ranges and critical values established by Patient Care Services. All follow-up actions were taken by Patient Care Services. Performed By: #### 2430-8 #### [facility] GLUCOSE POCT Collected: 09/27/2018 Status: F Source: [place] (U[place]ADED) 12:09 PM [facility] REPOSITORY TYPE CODE TESTS RESULT OUT OF REFERENCE UNITS RANGE LAB 2340-8(LOIN 70-110 mg/dL C) High Glucose 114 POCT-LAB Result Comment: Treatment ranges and critical values established by Patient Care Services. All follow-up actions were taken by Patient Care Services. Performed By: #### 2430-8 #### [facility] GLUCOSE POCT Collected: 09/27/2018 Status: F Source: [place] (UPLOADED) 10:32 AM [facility] REPOSITORY TYPE CODE TESTS RESULT OUT OF REFERENCE UNITS RANGE LAB 2340-8(LOIN 70-110 mg/dL C) High Glucose 130 POCT-LAB Result Comment: Treatment ranges and critical values established by Patient Care Services. All follow-up actions were taken by Patient Care Services. Performed By: #### 2430-8 #### [facility] PROGRESS NOTES Observed: 09/27/2018 Status: F Source: [place] 9:32 AM [facility] REPOSITORY Patient: LOVE PHELAN MRN: [id number] Age: 73 years Sex: Male : 1945 Associated Diagnoses: None Author: Javon AMBRIZ , Alexander Dumont [facility] Cardiology Progress Note 09/27/2018 09:32 CC: I feel pretty good Subjective: Patient underwent bioprosthetic mitral valve replacement yesterday. He is sitting in his chair with famliy at the bedside. His chest tubes remain in place. No chest pain or dizziness. Tele with sinus rhythm. Objective: Vital signs, labs, MAR, telemetry reviewed. Physical Exam: General: Alert and oriented x 3, no acute distress Lungs: Clear bilaterally, respirations easy and unlabored Cardio: Normal rate, regular rhythm, nl S1/S2 Abdomen: Obese, appears nondistended Extremities: no edema Neuro: CHASE ??4, no focal deficit Skin: Dry with no apparent rashes Data echo 09/22/2018: Normal LV size and function, EF 60-65%. Normal RV size and function. Moderate left atrial enlargement. 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 This is likely severe based on doppler assessment. Consider CLAIRE for further assessment of the mitral valve. No other significant valvular or pericardial abnormalities noted. Procedure Summary - Patent 2010 stents in the left anterior descending artery and left circumflex artery. - The proximal RCA is occluded and is supplied by left to right collaterals (known since February 2010). - Markedly elevated LVEDP at 30 mmHg. - Markedly elevated PCWP at 25 mmHg. - The right atrial, right ventricular and pulmonary arterial pressures are at the upper limit of normal. - Normal cardiac output. Recommendations - Continue treatment for decompensated heart failure. - Further recommendations regarding mitral valve repair/replacement +/- RCA revascularization per cardiac surgery team. - Lifestyle modifications and optimal medical therapy for CAD secondary prevention. CLAIRE 09/24/18: LVEF 60-65% Normal RV structure and function Moderate left atrial enlargement Small PFO with [id number] shunt. No right to left shunting demonstrated per bubble study Mild diffuse mitral valve leaflet thickening with flail anterior leaflet at A3 segmented Severe MR with ER0 0.24 cm?? No mitral stenosis mean gradient 2 mmHg. Stress test 2014: No ischemia per EMR. Cardiac cath 2009: LAD 85% followed by 80% stenosis. LCx 90%. RCA 100%. Per EMR, all vessels intervened upon with PCI and stenting (details unknown). 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 In setting of acute CHF, renal insufficiency of unknown chronicity, and underlying CAD. -Chronic ischemic heart disease; s/p NH and multivessel stenting 2009. He had negative stress test 2014. -Carotid artery disease -HTN, uncontrolled. Pt reports difficult to control BP at baseline requiring ongoing up-titration of regimen. At home may trend 130-150s mmHg systolic. -HLD -DM2 -CKD stage III: Nephrology following. -Obesity PLAN: -Continue supportive care. -Continue aspirin, statin, beta-brisa -Incentive spirometry Vital Signs (Past 36 Hours) Last Charted Minimum Maximum Temperature 99.2 (09/27 08:15) 97.7 (09/26 05:45) 99.2 (09/27 08:15) Pulse 76 (09/27 09:00) 56 (09/26 10:05) 135 (09/26 11:35) Resp 23 (09/27 09:00) 3 (09/26 07:55) 25 (09/27 00:20) Pulse Ox 93 (09/27 09:00) 83 (09/26 07:55) 100 (09/26 14:34) Pain Score 5 (09/27 04:11) 0 (09/26 05:45) 5 (09/27 04:11) BP 133/50 (09/27 09:00) Minimum Maximum Systolic BP 111/49 (09/27 01:00) 165/66 (09/26 05:45) Diastolic BP 125/46 (09/27 03:00) 150/81 (09/25 23:26) . I and O Summary Begin date: 09/26 09:32 End date: 09/27 09:32 24 Hour Intake: 2166.20 Output: 2345.00 Balance: -178.80 Last BM: No BM Charted. Labs - Last 36 hours (Max 2 / lab test) CHEMISTRY Sodium 140 (09/27 05:52) 139 (09/26 14:10) Potassium 4.6 (09/27 05:52) 4.5 (09/27 01:53) Chloride 105 (09/27 05:52) 102 (09/26 14:10) CO2 25 (09/27 05:52) 21 (09/26 14:10) Glucose 126 (09/27 05:52) 243 (09/26 14:10) Glucose POCT 207 (09/26 18:21) 207 (09/26 17:28) BUN 50 (09/27 05:52) 47 (09/26 14:10) Creatinine 1.86 (09/27 05:52) 1.66 (09/26 14:10) Calcium Total 8.6 (09/27 05:52) 8.6 (09/27 01:53) Magnesium 2.7 (09/27 05:52) 2.7 (09/27 01:53) HEMATOLOGY WBC 8.3 (09/27 05:52) 8.2 (09/27 01:53) RBC 3.80 (09/27 05:52) 3.89 (09/2753) Hb 10.6 (09/27 05:52) 10.7 (09/27 01:53) Hematocrit 31.5 (09/27 05:52) 32.1 (09/27 01:53) Platelets 97 (09/27 05:52) 98 (09/27 01:53) MCV 82.8 (09/27 05:52) 82.4 (09/27 01:53) MCH 27.9 (09/27 05:52) 27.5 (09/27 01:53) RDW 15.3 (09/27) 15.0 (09/2753) MCHC 33.7 (09/27 05:52) 33.3 (09/27 01:53) Neutrophil Ab 6.70 (09/27 05:52) 4.60 (09/26 03:52) Monocyte Ab 0.90 (09/27 05:52) 0.70 (09/26 03:52) Eosinophil Ab 0.00 (09/27 05:52) 0.20 (09/26 03:52) Basophil Ab 0.00 (09/27 05:52) 0.10 (09/26 03:52) Lymphocyte Ab 0.70 (09/27 05:52) 1.20 (09/26 03:52) COAGULATION Partial Thromboplastin (aPTT) 27.8 Sec (09/27 05:52) 28.2 Sec (09/26 14:10) INR 1.37 (09/27 05:52) 1.31 (09/26 14:10) Prothrombintime (PT) 15.8 Sec (09/27 05:52) 15.1 Sec (09/26 14:10) OTHER LABS Anion Gap 10.0 mMol/L (09/27 05:52) 16.0 mMol/L (09/26 14:10) GFR Est. Non 41 mL/min (09/26 14:10) 38 mL/min (09/25 05:36) GFR Est. Berta 50 mL/min (09/26 14:10) 45 mL/min (09/25 05:36) Alkaline Phosphatase 69 Units/L (09/26) ALT/SGPT 35 Units/L (09/26) AST/SGOT 29 Units/L (09/26) Bilirubin Total 0.6 mg/dL (09/26) Protein 6.8 gm/dL (09/26) Albumin Level 3.3 gm/dL (09/26) PTH Intact 54 Picogram/ml (09/24 07:) Vitamin D 25-Hydroxy Leve 26.01 ng/mL (09/24 07:) MPV 8.6 FL (09/27 05:52) 8.8 FL (09/2753) Neutrophil 80.8 % (09/27 05:52) 67.5 % (09/26 03:52) Lymphocyte 8.2 % (09/27) 18.1 % (09/26 03:) Monocyte 10.7 % (09/27) 10.4 % (09/26 03:) Eosinophil 0.1 % (09/27 05:) 3.3 % (09/26 03:) Basophil 0.2 % (09/27) 0.7 % (09/26) Blood Type ABO and Rh(D) BPOS (09/25 17:) Antibody Screen Interpret NEGATIVE (09/25 17:) Fresh Frozen Plasma: NOTNEED (09/25 15:39) Platelet Concentrate NOTNEED (09/25 15:39) . Inpatient Medications: Aspirin 325 mg EC Tab (Ecotrin GEq) 325 mg = 1 Tab, PO, Tab EC, Daily,, x 30 Day(s), 09/26/18 13:52:00 EST Last Dose: 09/27/18 08:57:00 Atorvastatin 20 mg Tab (Lipitor GEq) 20 mg = 1 Tab, PO, Tab, Daily,, x 30 Day(s), 09/27/18 8:08:00 EST Last Dose: 09/27/18 08:57:00 Metoprolol 25 mg Tab (Lopressor GEq) 12.5 mg = 0.5 Tab, PO, Tab, Q12h,, x 30 Day(s), 09/27/18 8:11:00 EST , Comment: Hold for sbp less than 100 or HR less than 60 Last Dose: 09/27/18 08:56:00 Docusate Sodium 100 mg Cap (Colace GEq) 100 mg = 1 Cap, PO, Cap, BID,, x 30 Day(s), 09/26/18 13:52:00 EST Last Dose: 09/27/18 08:57:00 Levalbuterol 0.63 mg/3 mL Inh Inna (Xopenex GEq) 0.63 mg = 3 mL, Inhalation, Inna, Resp QID,, x 30 Day(s), 09/26/18 13:52:00 EST Last Dose: 09/27/18 08:55:00 Acetaminophen 325 mg Tab (Tylenol GEq) 650 mg = 2 Tab, PO, Tab, Q4h, PRN, Fever, x 30 Day(s), 09/26/18 13:52:00 EST Last Dose: Not Given Acetaminophen 650 mg Suppos (Tylenol GEq) 650 mg = 1 Suppos, Rectal, Suppos, Q4h, PRN, Pain-Mild/Fever greater than 100.4 (38C), x 30 Day(s), 09/26/18 13:52:00 EST Last Dose: Not Given Bisacodyl 10 mg Suppos (Dulcolax GEq) 10 mg = 1 Suppos, Rectal, Suppos, Daily, PRN, Constipation, x 30 Day(s), 09/26/18 13:52:00 EST Last Dose: Not Given HYDROcodone/Acetaminophen 5 mg/325 mg Tab ([place] 5 GEq) 1 Tab, PO, Tab, Q4h, x 30 Day(s), PRN Pain - Mild, 09/26/18 13:52:00 EST Last Dose: Not Given OxyCODONE/Acetaminophen 5 mg/325 mg Tab (Percocet GEq) 1 Tab, PO, Tab, Q4h, x 30 Day(s), PRN Pain - Moderate, 09/26/18 13:52:00 EST Last Dose: 09/27/18 05:23:00 OxyCODONE/Acetaminophen 5 mg/325 mg Tab (Percocet GEq) 2 Tab, PO, Tab, Q4h, x 30 Day(s), PRN Pain - Severe, 09/26/18 13:52:00 EST Last Dose: Not Given Lactulose 20 Gm/30 mL Syrup 30 mL (Cephulac GEq) 30 mL, PO, Syrup, Daily, x 30 Day(s), PRN Constipation, 20 Gm, 09/26/18 13:52:00 EST Last Dose: Not Given Bupivacaine 0.5% Pain Ball 270 mL 270 ml, 5 mL/hr, Subcut, x 30 Day(s), 270 mL, Infusion, 09/26/18 6:58:00 EST, 101.9 kg Last Dose: Not Given Current IV Orders: Pantoprazole 40 mg Vial (Protonix GEq) 40 mg, IV Push, Inject, Q12h,, x 30 Day(s), 09/26/18 13:52:00 EST Last Dose: 09/27/18 08:57:00 CeFAZolin 2 Gm, IV, Q8h,, x 5 Time(s)/Dose(s), 09/26/18 13:52:00 EST, Prophylaxis , Comment: Refrigerate Last Dose: 09/27/18 04:10:00 Albumin 5% 250 mL, 12.5 Gm, IV, Inject, PRN, x 30 Day(s), PRN See Comments, 09/26/18 13:52:00 EST Last Dose: Not Given Morphine 4 mg/mL INJ 1 mL 4 mg = 1 mL, IV Push, Inject, Q1h, PRN, Pain - Severe, x 30 Day(s), 09/26/18 13:52:00 EST Last Dose: Not Given Calcium Chloride 100 mg/mL Syringe 10 mL 1 Gm = 10 mL, IV Push, Inject, Q4h, PRN, See Comments, x 4 Time(s)/Dose(s), 09/26/18 13:52:00 EST Last Dose: 09/26/18 14:53:00 Magnesium Sulfate (RTU) 2 Gm, IVPB, Q4h, PRN, See Comments, x 4 Time(s)/Dose(s), 09/26/18 13:52:00 EST , Comment: infuse for magnesium less than 2.5mEq/liter 16 mEq = 2 GmInfuse Over 2 hours Last Dose: Not Given Potassium Chloride (RTU) 10 mEq, IVPB, Q4h, PRN, See Comments, x 4 Time(s)/Dose(s), 09/26/18 13:52:00 EST , Comment: Infuse over 60 minutes for potassium 3.6-3.9 mEq/liter Telemetry, Central Line Only Last Dose: Not Given Potassium Chloride (RTU) 20 mEq, IVPB, Q4h, PRN, See Comments, x 4 Time(s)/Dose(s), 09/26/18 13:52:00 EST , Comment: infuse over 60 minutes for potsssium 3.3-3.5 mEq/liter Last Dose: Not Given Potassium Chloride (RTU) 40 mEq, IVPB, Q4h, PRN, See Comments, x 4 Time(s)/Dose(s), 09/26/18 13:52:00 EST , Comment: infuse over 2 hours for potassium less than or equal to 3.2mEq/liter Last Dose: Not Given Sodium Chloride 0.9% PF Flush Syringe 10 mL 3 mL, IV Push, Inject, PRN, x 30 Day(s), PRN See Comments, 09/26/18 13:52:00 EST Last Dose: Not Given Morphine 2 mg/mL Syringe 1 mL 2 mg = 1 mL, IV Push, Inject, Q1h, PRN, Pain - Moderate, x 30 Day(s), 09/26/18 13:52:00 EST Last Dose: Not Given Dextrose 50% Syringe 25 Gm/50 mL 12.5 Gm = 25 mL, IV Push, Inject, PRN, PRN, See Comments, x 30 Day(s), 09/26/18 13:52:00 EST Last Dose: Not Given Dextrose 50% Syringe 25 Gm/50 mL 25 Gm = 50 mL, IV Push, Inject, PRN, PRN, See Comments, x 30 Day(s), 09/26/18 13:52:00 EST Last Dose: Not Given Ondansetron 2 mg/mL Inj 2 mL (Zofran GEq) 4 mg = 2 mL, IV Push, Inject, Q8h, PRN, See Comments, x 30 Day(s), 09/26/18 13:52:00 EST Last Dose: Not Given Sodium Chloride 0.9% PF Flush Syringe 10 mL 10 mL, IV Push, Inject, Q8h, x, PRN See Comments, 09/25/18 19:49:00 EST Last Dose: 09/26/18 15:58:00 Sodium Chloride 0.9% PF Flush Syringe 10 mL 20 mL, IV Push, Inject, PRN, x 30 Day(s), PRN See Comments, 09/25/18 19:49:00 EST Last Dose: Not Given Sodium Chloride 0.9% PF Flush Syringe 10 mL 20 mL, IV Push, Inject, PRN, x 30 Day(s), PRN See Comments, 09/25/18 19:49:00 EST Last Dose: Not Given NiCARdipine (RTU) 20 mg [5 mg/hr] + Premixed in Sodium Chloride 0.9% 200 mL 200 ml, 50 mL/hr, IV, x 30 Day(s),, See Comments, 200 mL, 09/26/18 13:52:00 EST, 101.9 kg Last Dose: 09/27/18 06:59:59 Insulin Human Regular 100 Unit [1 Unit/hr] + Sodium Chloride 0.9% 100 mL 100 ml, 1 mL/hr, IV, x 30 Day(s), 100 mL, 09/26/18 13:52:00 EST, 101.9 kg Last Dose: 09/27/18 06:59:59 PROGRESS NOTES Observed: 09/27/2018 Status: C Source: [place] 8:00 [facility] REPOSITORY Patient: LOVE PHELAN MRN: [facility])-[id number] Age: 73 years Sex: Male : 1945 Associated Diagnoses: None Author: Manuela Ybarra CNP Supervising Physician Comments Assessment and Plan 1. Mitral regurg : POD # 1Right anterior mini thoracotomy; Mitral valve replacement with 27 mm Medtronic Weldon tissue valve - Stable post mvr, Pain Q ball for pain - Statin/aspirin/BB - D/C A line/[place] - Keep chest tubes for now. Keep spence while chest tubes are in. - Senna and miralax; Keep full liquid diet at this time. - PEP therapy ordered; Encouraged ambulation and IS; Wean O2 keeping sats above 90 % - Restart appropriate home medications - Possible transfer to [facility] later today. - Will discuss with 2. HTN -Low dose BB with hold parameters, will use metoprolol -Hold amlodipine -Hold lisinopril 3. Hyperlipidemia - Statin therapy 4. Diabetes -Insulin drip 5. CKD stage III Creat 1.86 continue to monitor Today: No value charted Yest: 101.9 kg/ 224 lbs 10.4 oz (Actual) (09/26/18 04:34) Admit: No value charted 09/27/18 06:00:00 Pulse: 77 BP: 140/57 Respiration: 18 Pulse Ox: 95 Ox. Delivery: Nasal cannula General: Alert and oriented times 3. No complaints at this time. Reviewed goals of care including IS use. Has already been up. Neuro: Moves all extremities with no focal deficits noted. Vital signs: VSS. O2 sats 95% on 4L NC Incision: Right lateral drsg dry and intact, Respiratory: Lungs are diminished in bases bilaterally. CXR: Reviewed Cardiovascular: Heart NSR; (-) Lower extremity edema; palpable dorsal pedis pulses bilaterally Gasrointestinal: Abdomen is soft, non tender, active bowel sounds. (+) Flatus; (-) Belching; (-) BM Integumentary: Skin warm dry and intact 09/27/18 05:52, Hemoglobin = 10.6 gm/dL L 09/27/18 05:52, Hematocrit = 31.5 % L 09/27/18 05:52, WBC Count = 8.3 thou/mcL 09/27/18 05:52, Platelet Count = 97 thou/mcL L 09/27/18 05:52, PT = 15.8 Sec H 09/27/18 05:52, INR = 1.37 09/27/18 05:52, Sodium Level = 140 mMol/L 09/27/18 05:52, Potassium Level = 4.6 mMol/L 09/27/18 05:52, Creatinine = 1.86 mg/dL H 09/27/18 05:52, BUN = 50 mg/dL H 09/22/18 05:46, TSH = 1.36 mcIU/mL 09/26/18 03:52, Bilirubin Total = 0.6 mg/dL 09/26/18 18:21, Glucose POCT = 207 mg/dL H 09/27/18 05:52, Glucose Level = 126 mg/dL H 09/22/18 05:46, Hemoglobin A1c = 9.0 % tl hgb H Seen and agree with above. No complaints. NSR. Stable BP. Incision looks good. CXR is clear. s/p mini-MVR D/C chest tubes. Keep On-Q pump in for until infusion complete. Transfer to floor. GLUCOSE POCT Collected: 09/27/2018 Status: F Source: [facility] (UPLOADED) 7:58 AM [facility]ALTH SYSTEM REPOSITORY TYPE CODE TESTS RESULT OUT OF RANGE REFERENCE UNITS LAB 2340-8(LOIN 70-110 mg/dL C) Normal Glucose 105 POCT-LAB Result Comment: Treatment ranges and critical values established by [facility]. All follow-up actions were taken by [facility]. Performed By: #### [id number] #### [facility] POINT OF CARE XR CHEST 1 VIEW Observed: 09/27/2018 Status: F Source: [facility] (STATISTICS) 6:52 AM [facility]ALTH SYSTEM REPOSITORY EXAMINATION TYPE: XR Chest 1 View (Statistics) DATE OF SERVICE: 09/27/2018 6:52 AM HISTORY: Post Cardiac Surgery COMPARISON: 09/26/2018 FINDINGS: Portions of most inferior 10% of chest not included in [id number] potentially study accuracy. [place] catheter tip overlies right main pulmonary artery. Right upper extremity PICC tip is not well seen and is probably in superior vena cava. Right mediastinal drain tip overlies upper portion mediastinum. Right pleural drain tip overlies middle to medial 3rd of right lower chest cavity. No pneumothorax. IMPRESSION: Endotracheal tube and gastric tube have been removed since 09/26/2018 Bilateral basilar pulmonary infiltrates and/or atelectasis, not changed. Jed Velarde thanks you for the opportunity to care for your patient. Workstation ID: [id number] - [id number] FINAL REPORT Dictated By: Parish Wiseman MD 09/27/2018 08:50 Assigned Physician: Parish Wiseman MD Reviewed and Electronically Signed By: Parish Wiseman MD 09/27/2018 08:53 Transcribed by: CATERINA 09/27/2018 08:50 Technologist: KELLEY ROBISON PROGRESS NOTES Observed: 09/27/2018 Status: F Source: [facility] 6:45 AM [facility] REPOSITORY Patient: LOVE PHELAN MRN: [id number] Age: 73 years Sex: Male : 1945 Associated Diagnoses: None Author: Stephy AMBRIZ, Nica Dumont Impression and Plan IMPRESSION: Chronic kidney disease stage III- UPCR 0.9g/g and ultrasound w/ kidneys 13cm bilat presumably with diabetic nephropathy. Hypertension. Type 2 diabetes mellitus. Coronary artery disease status post multivessel PCI in 2009 as above. Severe mitral regurgitation, s/p MVR 09/26. PLAN: - A slight bumpt in serum creatinine but this is likely still at baseline, making good urine. Likely related to periop hemodynamic changes. Right heart pressures are elevated, I do not think he needs m ore volume. CXR pending. Will monitor. Seun Keyes MD [facility], [facility]. Pager: [phone] Subjective seen this am, extubated, denies SOB, having some pain. Health Status Allergies Allergic Reactions (Selected) Mild Doxycycline- Hives. Objective Last Charted Vital Signs Temperature: 98.9 (09/27 06:00) Pulse: 77 (09/27 06:00) Respiration: 18 (09/27 06:00) BP: 140/57 (09/27 06:00) Pulse Ox: 95 (09/27 06:00) Oxygen Delivery: Nasal cannula (09/27 06:00) O2 Device Flow: 4 L/min Pain Score: 5 (09/27 04:11) EXAM: see vitals below General - somnolent, oriented x3, no acute distress Chest/Respiratory - CTs in place, no WRR noted Cardiovascular - Normal rate, regular rhythm without murmurs Abdomen/Gastrointestinal - Soft, nontender, nondistended, (+) bowel sounds. Musculoskeletal - No synovitis. No joint effusions or erythemia in knees, elbows, hands, wrists Extremities - trace edema. Neuropsych -awake and oriented Results Review Labs - Last 36 hours (Max 2 / lab test) CHEMISTRY Sodium 140 (09/27 05:52) 139 (09/26 14:10) Potassium 4.6 (09/27 05:52) 4.5 (09/27 01:53) Chloride 105 (09/27 05:52) 102 (09/26 14:10) CO2 25 (09/27 05:52) 21 (09/26 14:10) Glucose 126 (09/27 05:52) 243 (09/26 14:10) Glucose POCT 207 (09/26 18:21) 207 (09/26 17:28) BUN 50 (09/27 05:52) 47 (09/26 14:10) Creatinine 1.86 (09/27 05:52) 1.66 (09/26 14:10) Calcium Total 8.6 (09/27 05:52) 8.6 (09/27 01:53) Magnesium 2.7 (09/27 05:52) 2.7 (09/27 01:53) HEMATOLOGY WBC 8.3 (09/27 05:52) 8.2 (09/27 01:53) RBC 3.80 (09/27 05:52) 3.89 (09/27 01:53) Hb 10.6 (09/27 05:52) 10.7 (09/27 01:53) Hematocrit 31.5 (09/2752) 32.1 (09/2753) Platelets 97 (09/27 05:52) 98 (09/2753) MCV 82.8 (09/27 05:52) 82.4 (09/27 01:53) MCH 27.9 (09/27 05:52) 27.5 (09/2753) RDW 15.3 (09/27 05:52) 15.0 (09/2753) MCHC 33.7 (09/27) 33.3 (09/2753) Neutrophil Ab 6.70 (09/27 05:52) 4.60 (09/26 03:52) Monocyte Ab 0.90 (09/27 05:52) 0.70 (09/26 03:52) Eosinophil Ab 0.00 (09/27 05:52) 0.20 (09/26 03:52) Basophil Ab 0.00 (09/27 05:52) 0.10 (09/26 03:52) Lymphocyte Ab 0.70 (09/27 05:52) 1.20 (09/26 03:52) COAGULATION Partial Thromboplastin (aPTT) 27.8 Sec (09/27 05:52) 28.2 Sec (09/26 14:10) INR 1.37 (09/27 05:52) 1.31 (09/26 14:10) Prothrombintime (PT) 15.8 Sec (09/27 05:52) 15.1 Sec (09/26 14:10) OTHER LABS Anion Gap 10.0 mMol/L (09/27 05:52) 16.0 mMol/L (09/26 14:10) GFR Est. Non 41 mL/min (09/26 14:10) 38 mL/min (09/25 05:36) GFR Est. Berta 50 mL/min (09/26 14:10) 45 mL/min (09/25 05:36) Alkaline Phosphatase 69 Units/L (09/2652) ALT/SGPT 35 Units/L (09/26) AST/SGOT 29 Units/L (09/26) Bilirubin Total 0.6 mg/dL (09/26) Phosphorus Level 4.2 mg/dL (09/24) Protein 6.8 gm/dL (09/26) Albumin Level 3.3 gm/dL (09/26) 3.8 gm/dL (09/24) Folic Acid Level 18.0 ng/mL (09/24) PTH Intact 54 Picogram/ml (09/24 07:) Vitamin B12 Level 1399 Picogram/ml (09/24) Vitamin D 25-Hydroxy Leve 26.01 ng/mL (09/24) MPV 8.6 FL (09/27 05:52) 8.8 FL (09/27 01:53) Neutrophil 80.8 % (09/27) 67.5 % (09/2652) Lymphocyte 8.2 % (09/27) 18.1 % (09/26 03:52) Monocyte 10.7 % (09/27 05:) 10.4 % (09/26 03:52) Eosinophil 0.1 % (09/27) 3.3 % (09/26) Basophil 0.2 % (09/27) 0.7 % (09/26) Blood Type ABO and Rh(D) BPOS (09/25 17:) Antibody Screen Interpret NEGATIVE (09/25 17:) Fresh Frozen Plasma: NOTNEED (09/25 15:39) Platelet Concentrate NOTNEED (09/25 15:39) GLUCOSE POCT Collected: 09/27/2018 Status: F Source: [facility] (UPLOADED) 5:54 AM [facility] SYSTEM REPOSITORY TYPE CODE TESTS RESULT OUT OF REFERENCE UNITS RANGE LAB 2340-8(LOIN 70-110 mg/dL C) High Glucose 124 POCT-LAB Result Comment: Treatment ranges and critical values established by Patient Care Services. All follow-up actions were taken by Patient Care Services. Performed By: #### 2430-8 #### [facility] POINT [facility] C[facility] MAGNESIUM LEVEL Collected: 09/27/2018 Status: F Source: [facility] 5:52 AM [facility] REPOSITORY TYPE CODE TESTS RESULT OUT OF REFERENCE UNITS RANGE LAB 46797-1(LO 1.8-2.5 mg/dL INC) High Magnesium Level 2.7 Performed By: #### 29545-3, 01892-6 #### [facility] [address], [place] BASIC METABOLIC PANEL Collected: 09/27/2018 Status: F Source: [facility] 5:52 AM [facility] REPOSITORY TYPE CODE TESTS RESULT OUT OF RANGE REFERENCE UNITS LAB 91685-9(LO 8.9-10.3 mg/dL INC) Low Calcium Total 8.6 LAB 45726-1(LO 8-20 mg/dL INC) High BUN 50 LAB 51510-1(LO 6.0-18.0 mMol/L INC) Anion Normal Gap 10.0 LAB 2951-2(HANY 136-145 mMol/L NC) Sodium Normal Level 140 LAB 2160-0(HANY 0.60-1.30 mg/dL NC) High Creatinine 1.86 LAB 2823-3(HANY 3.6-5.1 mMol/L NC) Normal Potassium Level 4.6 LAB 90221-6(LO 70-110 mg/dL INC) High Glucose Level 126 LAB 2028-9(HANY 22-32 mMol/L NC) Carbon Normal Dioxide Level 25 LAB 2075-0(HANY 98-107 mMol/L NC) Chloride Normal Level 105 Performed By: #### 74966-2, 16189-0 #### [facility] [address], [place] PROTHROMBIN TIME Collected: 09/27/2018 Status: F Source: [place] 5:52 AM [facility] REPOSITORY TYPE CODE TESTS RESULT OUT OF RANGE REFERENCE UNITS LAB 99488-2(HANY NC) Normal INR 1.37 Result Comment: The recommended therapeutic INR range for most cardiac indications is 2.0-3.0. For high intensity therapy(ie.mechanical heart valves), the recommended range is 2.5-3.5. LAB 5902-2(LOINC) 9.3-12.4 Sec Prothrombin High Time (PT) 15.8 Performed By: #### 5902-2, 3173-2 #### [facility] [address], [place] PARTIAL THROMBOPLASTIN Collected: 09/27/2018 Status: F Source: [place] TIME (APTT) 5:52 AM [facility] REPOSITORY TYPE CODE TESTS RESULT OUT OF REFERENCE UNITS RANGE LAB 99475-3(LO 23.6-35.3 Sec INC) Partial Normal Thromboplastin 27.8 (aPTT) Performed By: #### 5902-2, 3173-2 #### [facility] [address], [place] CBC WITH DIFFERENTIAL Collected: 09/27/2018 Status: F Source: [place] 5:52 AM [facility] REPOSITORY TYPE CODE TESTS RESULT OUT OF RANGE REFERENCE UNITS LAB 74625-7(LO 0.0-7.0 % INC) Normal Eosinophil 0.1 LAB 74965-7(LO 40.0-70.0 % INC) High Neutrophil 80.8 LAB 03566-5(LO 80.0-97.0 FL INC) MCV Normal 82.8 LAB 03754-2(LO 142-424 thou/mcL INC) Low Platelet Count 97 Result Comment: SLIDE PREVIOUSLY REVIEWED LAB 48941-0(LOINC) 0.0-12.0 % Normal Monocyte 10.7 LAB 731-0(LOINC) 1.00-4.80 thou/mcL Low Lymphocyte Absolute 0.70 LAB 48403-6(LOINC) 39.0-49.0 % Low Hematocrit 31.5 LAB 704-7(LOINC) 0.00-0.20 thou/mcL Normal Basophil Absolute 0.00 LAB 718-7(LOINC) 13.5-17.5 gm/dL Low Hemoglobin 10.6 LAB 711-2(LOINC) 0.00-0.70 thou/mcL Normal Eosinophil Absolute 0.00 LAB 85282-2(LOINC) 11.0-14.8 % RDW High 15.3 LAB 751-8(LOINC) 1.80-7.70 thou/mcL Normal Neutrophil Absolute 6.70 LAB 72839-7(LOINC) 0.0-2.0 % Normal Basophil 0.2 LAB 73471-3(LOINC) 4.30-5.70 million/mcL Red Low Blood Cell Count 3.80 LAB 72353-6(LOINC) 22.0-44.0 % Low Lymphocyte 8.2 LAB 86717-1(LOINC) 32.0-36.0 gm/dL MCHC Normal 33.7 LAB 742-7(LOINC) 0.00-0.90 thou/mcL Normal Monocyte Absolute 0.90 LAB 96355-3(LOINC) 4.6-10.2 thou/mcL WBC Normal Count 8.3 LAB 90064-3(LOINC) 27.0-34.0 Picograms MCH Normal 27.9 LAB 42455-5(LOINC) 6.2-12.1 FL MPV Normal 8.6 Performed By: #### 16040-2 #### [facility] [address], [place] GLUCOSE POCT Collected: 09/27/2018 Status: F Source: [facility] (UPLOADED) 3:28 AM [facility] REPOSITORY TYPE CODE TESTS RESULT OUT OF REFERENCE UNITS RANGE LAB 2340-8(LOIN 70-110 mg/dL C) High Glucose 161 POCT-LAB Result Comment: Treatment ranges and critical values established by Patient Care Services. All follow-up actions were taken by Patient Care Services. Performed By: #### 2430-8 #### [facility] GLUCOSE POCT Collected: 09/27/2018 Status: F Source: [facility]D (UPLOADED) 1:59 AM [facility] REPOSITORY TYPE CODE TESTS RESULT OUT OF REFERENCE UNITS RANGE LAB 2340-8(LOIN 70-110 mg/dL C) High Glucose 206 POCT-LAB Result Comment: Treatment ranges and critical values established by Patient Care Services. All follow-up actions were taken by Patient Care Services. Performed By: #### 2430-8 #### [facility] POINT [facility] CARE CBC Collected: 09/27/2018 Status: F Source: [place] 1:53 AM [facility] REPOSITORY TYPE CODE TESTS RESULT OUT OF RANGE REFERENCE UNITS LAB 60706-3(LO 11.0-14.8 % INC) High RDW 15.0 LAB 79836-6(LO 80.0-97.0 FL INC) MCV Normal 82.4 LAB 95438-2(LO 6.2-12.1 FL INC) MPV Normal 8.8 LAB 70172-2(LO 32.0-36.0 gm/dL INC) MCHC Normal 33.3 LAB 87379-2(LO 39.0-49.0 % INC) Low Hematocrit 32.1 LAB 66299-6(LO 4.6-10.2 thou/mcL INC) WBC Normal Count 8.2 LAB 718-7(LOIN 13.5-17.5 gm/dL C) Low Hemoglobin 10.7 LAB 05878-1(LO 142-424 thou/mcL INC) Low Platelet Count 98 Result Comment: SLIDE PREVIOUSLY REVIEWED LAB 88591-8(LOINC) 27.0-34.0 Picograms Normal MCH 27.5 LAB 02250-6(LOINC) 4.30-5.70 million/mcL Low Red Blood 3.89 Cell Count Performed By: #### 96878-5 #### [facility] [address], [place] POTASSIUM LEVEL Collected: 09/27/2018 Status: F Source: [place] 1:53 [facility] REPOSITORY TYPE CODE TESTS RESULT OUT OF RANGE REFERENCE UNITS LAB 2823-3(HANY 3.6-5.1 mMol/L NC) Normal Potassium Level 4.5 Performed By: #### 2823-3, 42040-1, - #### [facility] [address], [place] CALCIUM TOTAL Collected: 09/27/2018 Status: F Source: [place] 1:53 AM [facility] REPOSITORY TYPE CODE TESTS RESULT OUT OF REFERENCE UNITS RANGE LAB 38588-2(HANY 8.9-10.3 mg/dL NC) Low Calcium Total 8.6 Performed By: #### 2823-3, 32868-3, - #### [facility] [address], [place] MAGNESIUM LEVEL Collected: 09/27/2018 Status: F Source: [facility] 1:53 AM [facility] REPOSITORY TYPE CODE TESTS RESULT OUT OF REFERENCE UNITS RANGE LAB 99841-0(LO 1.8-2.5 mg/dL INC) High Magnesium Level 2.7 Performed By: #### 2823-3, 82493-7, 09080- 9 #### [facility] [address], [place] GLUCOSE POCT Collected: 09/27/2018 Status: F Source: [facility] (UPLOADED) 12:08 AM [facility] REPOSITORY TYPE CODE TESTS RESULT OUT OF REFERENCE UNITS RANGE LAB 2340-8(LOIN 70-110 mg/dL C) High Glucose 165 POCT-LAB Result Comment: Treatment ranges and critical values established by Patient Care Services. All follow-up actions were taken by Patient Care Services. Performed By: #### 2430-8 #### [facility] GLUCOSE POCT Collected: 09/26/2018 Status: F Source: [facility] (UPLOADED) 10:00 PM [facility] SYSTEM REPOSITORY TYPE CODE TESTS RESULT OUT OF REFERENCE UNITS RANGE LAB 2340-8(LOIN 70-110 mg/dL C) High Glucose 168 POCT-LAB Result Comment: Treatment ranges and critical values established by Patient Care Services. All follow-up actions were taken by Patient Care Services. Performed By: #### 2430-8 #### [facility] CBC Collected: 09/26/2018 Status: F Source: [facility] 9:58 PM [facility] REPOSITORY TYPE CODE TESTS RESULT OUT OF REFERENCE UNITS RANGE LAB 84344-4(LO 4.30-5.70 million/mcL INC) Low Red Blood Cell 4.00 Count LAB 02361-6(LO 6.2-12.1 FL INC) MPV Normal 8.9 LAB 03811-9(LO 32.0-36.0 gm/dL INC) MCHC Normal 33.3 LAB 50151-5(LO 39.0-49.0 % INC) Low Hematocrit 33.4 LAB 56529-4(LO 4.6-10.2 thou/mcL INC) WBC Normal Count 7.0 LAB 17819-6(LO 27.0-34.0 Picograms INC) MCH Normal 27.8 LAB 718-7(LOIN 13.5-17.5 gm/dL C) Low Hemoglobin 11.1 LAB 76150-1(LO 142-424 thou/mcL INC) Low Platelet Count 98 Result Comment: Result confirmed by slide review. LAB 99077-6(LOINC) 11.0-14.8 % High RDW 14.9 LAB 62945-3(LOINC) 80.0-97.0 FL Normal MCV 83.6 Performed By: #### 86928-4 #### [facility] [address], [place] POTASSIUM LEVEL Collected: 09/26/2018 Status: F Source: [place] 9:58 PM [facility] REPOSITORY TYPE CODE TESTS RESULT OUT OF RANGE REFERENCE UNITS LAB 2823-3(HANY 3.6-5.1 mMol/L NC) Normal Potassium Level 4.5 Performed By: #### 2823-3, 51241-0, - 9 #### [facility] [address], [place] CALCIUM TOTAL Collected: 09/26/2018 Status: F Source: [place] 9:58 PM [facility] REPOSITORY TYPE CODE TESTS RESULT OUT OF REFERENCE UNITS RANGE LAB 44223-6(HANY 8.9-10.3 mg/dL NC) Low Calcium Total 8.6 Performed By: #### 2823-3, 29569-2, - 9 #### [facility] [address], [place] MAGNESIUM LEVEL Collected: 09/26/2018 Status: F Source: [place] 9:58 PM [facility] REPOSITORY TYPE CODE TESTS RESULT OUT OF REFERENCE UNITS RANGE LAB 12232-0(LO 1.8-2.5 mg/dL INC) High Magnesium Level 2.8 Performed By: #### 2823-3, 36687-4, - 9 #### [facility] [address], [place] GLUCOSE POCT Collected: 09/26/2018 Status: F Source: [place] (UPLOADED) 7:55 PM [facility] REPOSITORY TYPE CODE TESTS RESULT OUT OF REFERENCE UNITS RANGE LAB 2340-8(LOIN 70-110 mg/dL C) High Glucose 188 POCT-LAB Result Comment: Treatment ranges and critical values established by Patient Care Services. All follow-up actions were taken by Patient Care Services. Performed By: #### 2430-8 #### [facility] BLOOD GAS POCT ABG Collected: 09/26/2018 Status: F Source: [facility] LACTATE 6:21 PM [facility] SYSTEM (UPLOAD) REPOSITORY TYPE CODE TESTS RESULT OUT OF RANGE REFERENCE UNITS LAB 718-7(LOIN 13.5-17.5 gm/dL C) Low Hemoglobin POCT 11.2 LAB 2744-1(HANY 7.35-7.45 NC) Blood Normal Gas pH Arterial 7.39 POCT Result Comment: A result of UNABLE indicates the actual value could not be calculated. Treatment ranges and critical values established by Patient Care Services. All follow-up actions were taken by Patient Care Services. LAB 43713-9(LOINC) VOL% O2 Content POCT Normal 14.7 LAB 2075-0(LOINC) 98-1 mEq/L 06 Chloride POCT Normal 103 LAB 66771-8(LOINC) 0.5- mMol/L 1.6 Lactate POCT Normal 1.6 LAB 2708-6(LOINC) 95.0 % O2 -99. Saturation Arterial Normal 0 POCT 95.5 LAB 63459-8(LOINC) 3.5- mEq/L 5.0 Potassium POCT Normal 4.6 LAB 15595-9(LOINC) FiO2 POCT Normal 36.0 LAB 35377-0(LOINC) 39-4 % Low 9 Hematocrit POCT 34 LAB 11288-9(LOINC) 21.0 mMol/L -28. HCO3 Arterial POCT Normal 0 27.5 LAB 2951-2(LOINC) 136- mEq/L 146 Sodium POCT Normal 141 LAB 2614-6(LOINC) 0.2- % 0.6 Methemoglobin POCT Normal 0.6 LAB 54817-5(LOINC) Sample Type POCT Normal Arterial LAB 2703-7(LOINC) 83-1 mmHg pO2 Low 08 Arterial POCT 77 LAB 05330-8(LOINC) 94.0 % O2 Low -99. Hemoglobin POCT 0 93.3 LAB 31943-6(LOINC) 1.12 mMol/L -1.3 Calcium Ionized POCT Normal 2 1.21 LAB 2026-3(LOINC) 22.0 mMol/L -29. Total CO2 Arterial Normal 0 POCT 25.5 LAB 2019-8(LOINC) 32-4 mmHg 8 pCO2 Arterial POCT Normal 46 LAB 17227-5(LOINC) 70-1 mg/dL 10 Glucose POCT High 207 LAB 64860-1(LOINC) 10.0 mEq/L -20. Anion Gap POCT Normal 0 10.7 LAB 25643-8(LOINC) -2.0 mMol/L -3.0 Base Excess POCT Normal 2.0 LAB 64815-8(LOINC) % Carboxyhemoglobin POCT Normal 1.7 Result Comment: NON SMOKERS <1.5% SMOKERS 1.5 - 9.0% Performed By: #### 79022-5t0 #### POINT OF CARE CBC Collected: 09/26/2018 Status: F Source: [place] 6:12 PM [facility] REPOSITORY TYPE CODE TESTS RESULT OUT OF REFERENCE UNITS RANGE LAB 23750-3(LO 6.2-12.1 FL INC) MPV Normal 8.9 LAB 43451-6(LO 80.0-97.0 FL INC) MCV Normal 83.6 LAB 718-7(LOIN 13.5-17.5 gm/dL C) Low Hemoglobin 11.2 LAB 38997-6(LO 142-424 thou/mcL INC) Low Platelet Count 104 LAB 65834-1(LO 32.0-36.0 gm/dL INC) MCHC Normal 33.3 LAB 31779-4(LO 4.30-5.70 million/mcL INC) Low Red Blood Cell 4.03 Count LAB 02795-1(LO 39.0-49.0 % INC) Low Hematocrit 33.7 LAB 72311-0(LO 4.6-10.2 thou/mcL INC) WBC Normal Count 7.1 LAB 31733-2(LO 11.0-14.8 % INC) RDW High 15.3 LAB 10099-4(LO 27.0-34.0 Picograms INC) MCH Normal 27.8 Performed By: #### 33512-9 #### [facility] [address], [place] CALCIUM TOTAL Collected: 09/26/2018 Status: F Source: [place] 6:12 PM [facility] REPOSITORY TYPE CODE TESTS RESULT OUT OF REFERENCE UNITS RANGE LAB 09252-8(HANY 8.9-10.3 mg/dL NC) Low Calcium Total 8.8 Performed By: #### 30781-6, 58983-0, 2823- 3 #### [facility] [address], [place] MAGNESIUM LEVEL Collected: 09/26/2018 Status: F Source: [place] 6:12 PM [facility] REPOSITORY TYPE CODE TESTS RESULT OUT OF REFERENCE UNITS RANGE LAB 76096-1(LO 1.8-2.5 mg/dL INC) High Magnesium Level 2.9 Performed By: #### 91775-0, 08025-5, 2823- 3 #### [facility] [address], [place] POTASSIUM LEVEL Collected: 09/26/2018 Status: F Source: [place] 6:12 PM [facility] REPOSITORY TYPE CODE TESTS RESULT OUT OF RANGE REFERENCE UNITS LAB 2823-3(HANY 3.6-5.1 mMol/L NC) Normal Potassium Level 4.5 Performed By: #### 85270-0, 18972-7, 2823- 3 #### [facility] [address], [place] BLOOD GAS POCT ABG Collected: 09/26/2018 Status: F Source: [place] LYTES LACTATE 5:28 PM [facility] (UPLOAD) REPOSITORY TYPE CODE TESTS RESULT OUT OF REFERENCE UNITS RANGE LAB 79625-4(L 21.0-28.0 mMol/L OINC) HCO3 Arterial POCT Normal 26.1 LAB 89617-3(L -2.0-3.0 mMol/L OINC) Base Excess POCT Normal 1.2 LAB 26622-3(L % OINC) Carboxyhemoglobin POCT Normal 1.7 Result Comment: NON SMOKERS <1.5% SMOKERS 1.5 - 9.0% LAB 97395-4(LOINC) 70-110 mg/dL High Glucose POCT 207 LAB 63872-3(LOINC) 10.0-20.0 mEq/L Anion Normal Gap POCT 11.5 LAB 2703-7(LOINC) 83-108 mmHg pO2 Normal Arterial POCT 84 LAB 09493-3(LOINC) 0.5-1.6 mMol/L High Lactate POCT 1.9 LAB 718-7(LOINC) 13.5-17.5 gm/dL Low Hemoglobin POCT 11.1 LAB 2075-0(LOINC) 98-106 mEq/L Normal Chloride POCT 104 LAB 2019-8(LOINC) 32-48 mmHg pCO2 Normal Arterial POCT 42 LAB 45834-9(LOINC) FiO2 Normal POCT 40.0 LAB 88041-0(LOINC) 39-49 % Low Hematocrit POCT 34 LAB 28940-9(LOINC) 3.5-5.0 mEq/L Normal Potassium POCT 4.5 LAB 77196-3(LOINC) Normal Sample Type Arterial POCT LAB 2744-1(LOINC) 7.35-7.45 Blood Normal Gas pH Arterial 7.40 POCT Result Comment: A result of UNABLE indicates the actual value could not be calculated. Treatment ranges and critical values established by Patient Care Services. All follow-up actions were taken by Patient Care Services. LAB 91264-0(LOINC) VOL% O2 Content POCT Normal 14.9 LAB 2951-2(LOINC) 136-14 mEq/L 6 Sodium POCT Normal 141 LAB 2614-6(LOINC) 0.2-0. % 6 Methemoglobin Normal POCT 0.6 LAB 44116-4(LOINC) 1.12-1 mMol/L .32 Calcium Ionized Normal POCT 1.23 LAB 2708-6(LOINC) 95.0-9 % 9.0 O2 Saturation Normal Arterial POCT 97.2 LAB 2026-3(LOINC) 22.0-2 mMol/L 9.0 Total CO2 Normal Arterial POCT 24.1 LAB 26640-7(LOINC) 94.0-9 % 9.0 O2 Hemoglobin Normal POCT 95.0 Performed By: #### 91825-1z1 #### POINT OF CARE BLOOD GAS POCT ABG Collected: 09/26/2018 Status: F Source: [place] HEMANT LACTATE 4:40 PM [facility] (UPLOAD) REPOSITORY TYPE CODE TESTS RESULT OUT OF REFERENCE UNITS RANGE LAB 2951-2(LO 136-146 mEq/L INC) Sodium POCT Normal 140 LAB 79668-6(L 70-110 mg/dL OINC) Glucose POCT High 227 LAB 12593-6(L OINC) Sample Type POCT Normal Arterial LAB 6-3(LO 22.0-29.0 mMol/L INC) Total CO2 Arterial Normal POCT 23.9 LAB 24924-1(L 94.0-99.0 % OINC) O2 Hemoglobin POCT Low 92.8 LAB 15278-3(L % OINC) Carboxyhemoglobin POCT Normal 1.7 Result Comment: NON SMOKERS <1.5% SMOKERS 1.5 - 9.0% LAB 2703-7(LOINC) 83-108 mmHg Low pO2 Arterial POCT 68 LAB 2075-0(LOINC) 98-106 mEq/L Chloride POCT Normal 103 LAB 18965-3(LOINC) 39-49 % Low Hematocrit POCT 34 LAB 2614-6(LOINC) 0.2-0.6 % Methemoglobin Normal POCT 0.6 LAB 2708-6(LOINC) 95.0-99.0 % Low O2 Saturation Arterial POCT 94.9 LAB 09761-1(LOINC) -2.0-3.0 mMol/L Base Excess Normal POCT 1.6 LAB 71457-8(LOINC) 3.5-5.0 mEq/L Potassium POCT Normal 4.8 LAB 96171-6(LOINC) 1.12-1.32 mMol/L Calcium Normal Ionized POCT 1.22 LAB 31694-3(LOINC) 0.5-1.6 mMol/L Lactate POCT High 1.9 LAB 81386-6(LOINC) VOL% O2 Content Normal POCT 14.6 LAB 718-7(LOINC) 13.5-17.5 gm/dL Low Hemoglobin POCT 11.2 LAB 44133-9(LOINC) 10.0-20.0 mEq/L Anion Gap POCT Normal 11.2 LAB 99272-4(LOINC) FiO2 POCT Normal 40.0 LAB 2744-1(LOINC) 7.35-7.45 Blood Gas pH Normal Arterial POCT 7.43 Result Comment: A result of UNABLE indicates the actual value could not be calculated. Treatment ranges and critical values established by Patient Care Services. All follow-up actions were taken by Patient Care Services. LAB 2019-8(LOINC) 32-48 mmHg Normal pCO2 Arterial POCT 39 LAB 46322-4(LOINC) 21.0-28.0 mMol/L Normal HCO3 Arterial POCT 25.9 Performed By: #### [id number] #### POINT OF CARE GLUCOSE POCT Collected: 09/26/2018 Status: F Source: [facility] (UPLOADED) 4:37 PM [facility]ALTH SYSTEM REPOSITORY TYPE CODE TESTS RESULT OUT OF REFERENCE UNITS RANGE LAB 2340-8(LOIN 70-110 mg/dL C) High Glucose 253 POCT-LAB Result Comment: Treatment ranges and critical values established by [facility]. All follow-up actions were taken by [facility]. Performed By: #### [id number] #### [facility] POINT OF CARE PROGRESS NOTES Observed: 09/26/2018 Status: F Source: [facility] 3:34 PM HEALTH SYSTEM REPOSITORY Patient: LOVE PHELAN MRN: ([facility])-[id number] Age: 73 years Sex: Male : 1945 Associated Diagnoses: None Author: Cristhian Hong DO Assessment Medicine sign-off Note: Pt underwent MVR today, now in CTS recovery room. Cr is steady, nephro following Attending is Dr. Moreno. Not much to add from a general medicine standpoint. Will sign off. Call with q's, thanks. Comments Supervising Physician Comments ANESTHESIA POSTOPERATIVE Observed: 09/26/2018 Status: F Source: [facility] NOTE 3:25 PM HEALTH SYSTEM REPOSITORY Patient: LOVE PHELAN MRN: ([id number] Age: 73 years Sex: Male : 1945 Associated Diagnoses: None Author: Zachary Espino MD Subjective Subjective: Patient participated in the evaluation: Patient unable to participate due to postoperative sedation. Nausea: not present. Vomiting: not present. Pain: acceptable pain control. Objective Objective: Vital Signs: Last Charted Vital Signs Temperature: 98.1 (09/26 15:00) Pulse: 75 (09/26 15:00) Respiration: 12 (09/26 15:00) BP: 165/66 (09/26 05:45) Pulse Ox: 97 (09/26 15:00) Oxygen Delivery: Adult ventilator (09/26 15:00) O2 Device Flow: 1 L/min Pain Score: 0 (09/26 05:45) . Mental Status: altered by sedation. Postoperative hydration: intravenous fluids. Assessment Assessment: Post anesthetic condition: no anesthetic complications. Airway patent: yes. Plan Plan: Postanesthesia Plan: post anesthetic surveillance concluded. PROGRESS NOTES Observed: 09/26/2018 Status: F Source: [facility] 2:57 PM [facility]ALTH SYSTEM REPOSITORY Patient: LOVE PHELAN MRN: ([id number] Age: 73 years Sex: Male : 1945 Associated Diagnoses: None Author: Will AMBRIZ, Emerson Elaine Impression and Plan IMPRESSION: Chronic kidney disease stage III- UPCR 0.9g/g and ultrasound w/ kidneys 13cm bilat presumably with diabetic nephropathy. Hypertension. Type 2 diabetes mellitus. Coronary artery disease status post multivessel PCI in 2009 as above. Severe mitral regurgitation, s/p MVR 09/26. PLAN: - Azotemia improved this AM, continue hemodynamic supportive care s/p MVR. Subjective He is seen in OR, d/w CTS team - MVR went well. Objective Last Charted Vital Signs Temperature: 98.5 (09/26 14:30) Pulse: 75 (09/26 14:30) Respiration: 0 (09/26 14:30) BP: 165/66 (09/26 05:45) Pulse Ox: 100 (09/26 14:34) Oxygen Delivery: Adult ventilator (09/26 14:34) O2 Device Flow: 1 L/min Pain Score: 0 (09/26 05:45) EXAM: see vitals below General - Sedated on vent. Chest/Respiratory - CTs in place, no WRR noted Cardiovascular - Normal rate, regular rhythm without murmurs, rubs or gallops. Abdomen/Gastrointestinal - Soft, nontender, nondistended, (+) bowel sounds. Musculoskeletal - No synovitis. No joint effusions or erythemia in knees, elbows, hands, wrists Extremities - trace edema. Neuropsych - Sedated Results Review Labs - Last 36 hours (Max 2 / lab test) CHEMISTRY Sodium 138 (09/26 03:52) 137 (09/25 05:36) Potassium 3.7 (09/26 03:52) 3.8 (09/25 05:36) Chloride 105 (09/26 03:52) 104 (09/25 05:36) CO2 25 (09/26 03:52) 25 (09/25 05:36) Glucose 75 (09/26 03:52) 116 (09/25 05:36) Glucose POCT 228 (09/26 14:33) 224 (09/26 13:07) BUN 54 (09/26 03:52) 60 (09/25 05:36) Creatinine 1.46 (09/26 03:52) 1.79 (09/25 05:36) Calcium Total 8.5 (09/26 03:52) 8.5 (09/25 05:36) Magnesium 2.1 (09/26 03:52) 1.9 (09/25 05:36) HEMATOLOGY WBC 6.8 (09/26 03:52) 6.0 (09/25 05:36) RBC 3.81 (09/26 03:52) 3.76 (09/25 05:36) Hb 10.7 (09/26 03:52) 10.6 (09/25 05:36) Hematocrit 31.7 (09/26 03:52) 31.3 (09/25 05:36) Platelets 157 (09/26 03:52) 147 (09/25 05:36) MCV 83.4 (09/26 03:52) 83.2 (09/25 05:36) MCH 28.0 (09/26 03:52) 28.2 (09/25 05:36) RDW 14.1 (09/26 03:52) 14.3 (09/25 05:36) MCHC 33.6 (09/26 03:52) 33.9 (09/25 05:36) Neutrophil Ab 4.60 (09/26 03:52) 3.90 (09/25 05:36) Monocyte Ab 0.70 (09/26 03:52) 0.60 (09/25 05:36) Eosinophil Ab 0.20 (09/26 03:52) 0.20 (09/25 05:36) Basophil Ab 0.10 (09/26 03:52) 0.10 (09/25 05:36) Lymphocyte Ab 1.20 (09/26 03:52) 1.20 (09/25 05:36) COAGULATION Partial Thromboplastin (aPTT) 31.9 Sec (09/26 03:52) INR 1.29 (09/26 03:52) Prothrombintime (PT) 14.9 Sec (09/26 03:52) OTHER LABS Anion Gap 8.0 mMol/L (09/26 03:52) 8.0 mMol/L (09/25 05:36) GFR Est. Non 38 mL/min (09/25 05:36) GFR Est. Berta 45 mL/min (09/25 05:36) Alkaline Phosphatase 69 Units/L (09/26 03:52) ALT/SGPT 35 Units/L (09/26 03:52) AST/SGOT 29 Units/L (09/26 03:52) Bilirubin Total 0.6 mg/dL (09/26 03:52) Phosphorus Level 4.2 mg/dL (09/24 07:28) Protein 6.8 gm/dL (09/26 03:52) Albumin Level 3.3 gm/dL (09/26 03:52) 3.8 gm/dL (09/24 07:) Folic Acid Level 18.0 ng/mL (09/24 07:) PTH Intact 54 Picogram/ml (09/24 07:) Vitamin B12 Level 1399 Picogram/ml (09/24 07:) Vitamin D 25-Hydroxy Leve 26.01 ng/mL (09/24 07:) MPV 9.1 FL (09/26 03:52) 9.1 FL (09/25 05:36) Neutrophil 67.5 % (09/26 03:52) 64.5 % (09/25 05:36) Lymphocyte 18.1 % (09/26 03:52) 20.7 % (09/25 05:36) Monocyte 10.4 % (09/26 03:52) 10.4 % (09/25 05:36) Eosinophil 3.3 % (09/26 03:52) 3.5 % (09/25 05:36) Basophil 0.7 % (09/26 03:52) 0.9 % (09/25 05:36) Blood Type ABO and Rh(D) BPOS (09/25 17:) Antibody Screen Interpret NEGATIVE (09/25 17:) Fresh Frozen Plasma: NOTNEED (09/25 15:39) Platelet Concentrate NOTNEED (09/25 15:39) XR CHEST 1 VIEW Observed: 09/26/2018 Status: F Source: [facility] (STATISTICS) 2:55 PM HEALTH SYSTEM REPOSITORY EXAMINATION TYPE: XR portable supine Chest 1 View (Statistics) DATE OF EXAM : 09/26/2018 2:55 PM HISTORY: Post Cardiac Surgery, congestive heart failure. COMPARISON: 09/25/2018 FINDINGS: The patient has had open replacement of the mitral valve. There is an endotracheal tube in place the tip of which is below the sternal notch and is well positioned. A nasogastric tube is seen with its tip and proximal side port below the esophagogastric junction. A Freeburg-Yajaira catheter was placed from a left internal jugular approach. The tip of the catheter is in the pulmonary outflow tract or pulm onary artery segment. A PICC has been inserted from a right antecubital approach. Its tip is a centimeter or so above the superior cavoatrial junction. A thoracostomy is seen at the each lung base. Another drainage catheter seen in the mediastinum or pericardial sac. All 3 appear to be well positioned. No pneumothorax is seen. As this is a supine exam there could be a small pneumothorax layering anteriorly. There are small pleural effusions. There is blunting of the left costophrenic angle. A foca l infiltrate is seen in the right subhilar space. This could be atelectasis, localized pulmonary edema or an inflammatory infiltrate. IMPRESSION: Well-positioned life supporting appliances. No pneumothorax is seen but a small pneumothorax may be layering anteriorly. Small bilateral pleural effusions. Atelectasis or localized pulmonary edema is seen at the right lung base in the subhilar space. Dougherty thanks you for the opportunity to care for your patient. Workstation ID: [id number] FINAL REPORT Dictated By: Eladio Aldridge MD 09/26/2018 14:59 Assigned Physician: Eladio Aldridge MD Reviewed and Electronically Signed By: Eladio Aldridge MD 09/26/2018 15:03 Transcribed by: CATERINA 09/26/2018 14:59 Technologist: SARAHY TRANSESOPHAGEAL ECHO TXT Observed: 09/26/2018 Status: F Source: [facility] 2:45 PM [facility]ALTH SYSTEM REPOSITORY Transesophageal Echocardiography Report (CLAIRE) Demographics Patient Name TAPAN Plasencia Date of 1945 Patient Number [id number] Age 73 year(s) Visit Number [id number] Gender Male Room Number OR Admission Status Inpatient Referring Mariano Moreno Oracle Identity Management Consultant Rafal Bragg RDCS Physician Christi Morris MD Ordering Mariano Moreno Provider Physician Procedure Type of Study CLAIRE procedure: Color Doppler, 3D Acquisition/Manipulation, Doppler Limited, CLAIRE Complete. Procedure Date Date: 09/26/2018Start: 14:45 PM Technical Quality: Adequate visualizationStudy Location: OR Indications: Intraoperative MV Replacement. Height: 70.87 inchesWeight: 233.69 poundsBSA: 2.25 m2 BMI: 32.72 kg/m2 Rhythm: Ventricular paced rhythmBP: 80/48 mmHg Probe Insertion:The transesophageal probe was inserted without difficulty Complications: There were no procedural difficulties or complications CLAIRE Performed By: the attending and the revenue cycle analyst Type of Anesthesia: General anesthesia CONCLUSIONS SUMMARY Left ventricular cavity size is normal. Mild concentric left ventricular hypertrophy is noted. Mild to moderate asynchronous contraction of the septum noted. The regional wall motion abnormality noted is likely related to a paced rhythm. . The left ventricular ejection fraction is 45-50% per visual estimation. No significant dynamic LVOT obstruction is measured on doppler interrogation. MVR #27 Medtronic Weldon Mitral prosthesis appears well seated. Prosthetic leaflets appear normal grossly . A small perivalvular leak is appreciated at 7 oclock . Normally functioning mitral bioprosthesis is present. Findings Mitral Valve MVR #27 Medtronic Weldon Mitral prosthesis appears well seated. Prosthetic leaflets appear normal grossly . The peak early velocity across the mitral prosthesis was 1.8 m/s. (<1.9 m/s is nl; 1.9-2.5 m/s is possible Mitral stenosis; >2.5 m/s suggests severe Mitral Stenosis). The mean gradient across the mitral prosthesis was 6 mmHg . (<5 mmHg nl, 6-10 mmHg possible Mitral stenosis, > 10 mmHg suggests significant Mitral Stenosis). The pressure half time was 94 ms. (<130 ms nl, 130-200 ms possible Mitral stenosis, >200 ms suggest severe Mitral stenosis). A small perivalvular leak is appreciated at 7 oclock . Normally functioning mitral bioprosthesis is present. Aortic Valve Tricuspid aortic valve. Structurally normal aortic valve. No significant stenosis or insufficiency of the aortic valve appreciated. Tricuspid Valve Tricuspid valve appears grossly normal. Mild tricuspid regurgitation is present by color Doppler. Pulmonic Valve The pulmonic valve is grossly normal in appearance. No significant pulmonic insufficiency or stenosis identified. Left Atrium The left atrium is mildly dilated. Left Ventricle Left ventricular cavity size is normal. Mild concentric left ventricular hypertrophy is noted. Mild to moderate asynchronous contraction of the septum noted. The regional wall motion abnormality noted is likely related to a paced rhythm. . The left ventricular ejection fraction is 45-50% per visual estimation. No significant dynamic LVOT obstruction is measured on doppler interrogation. Right Atrium The right atrium is of normal size. Right Ventricle Normal right ventricular size and function. Pericardial Effusion There is no significant pericardial effusion identified. Aorta Normal aortic dimensions at the level of the sinuses . Doppler Measurements and Calculations AV Peak Velocity: 187 cm/s MV Mean Gradient: 7 mmHg AV Peak Gradient: 13.99 mmHg MV Mean Velocity: 120 cm/s AV Mean Velocity: 135 cm/s MV P1/2t: 108 msec AV Mean Gradient: 8 mmHg MVA by PHT2.04 AV VTI: 42.2 cm MV VTI: 44.3 cmMV Vena Contracta: Signature Observed: 09/26/2018 Status: F Source: [facility] TEST RESULT EJECTION 2:45 PM HEALTH SYSTEM FRACTION REPOSITORY 45-50 BLOOD GAS POCT ABG Collected: 09/26/2018 Status: F Source: [facility] LYTES LACTATE 2:33 PM HEALTH SYSTEM (UPLOAD) REPOSITORY TYPE CODE TESTS RESULT OUT OF REFERENCE UNITS RANGE LAB 48743-2(L 10.0-20.0 mEq/L OINC) Anion Gap POCT Normal 14.7 LAB 82056-1(L 21.0-28.0 mMol/L OINC) HCO3 Arterial POCT Normal 23.9 LAB 2614-6(LO 0.2-0.6 % INC) Methemoglobin POCT Normal 0.5 LAB 34266-4(L 39-49 % OINC) Low Hematocrit POCT 33 LAB 2026-3(LO 22.0-29.0 mMol/L INC) Total CO2 Arterial Normal POCT 22.1 LAB 2703-7(LO 83-108 mmHg INC) pO2 Arterial POCT High 205 LAB 79157-6(L -2.0-3.0 mMol/L OINC) Base Excess POCT Normal -0.8 LAB 2075-0(LO 98-106 mEq/L INC) Chloride POCT Normal 102 LAB 31242-7(L % OINC) Carboxyhemoglobin POCT Normal 1.4 Result Comment: NON SMOKERS <1.5% SMOKERS 1.5 - 9.0% LAB 23636-1(LOINC) 94.0-99.0 % O2 Normal Hemoglobin POCT 98.0 LAB 98242-8(LOINC) Normal Sample Type Arterial POCT LAB 2019-8(LOINC) 32-48 mmHg pCO2 Normal Arterial POCT 39 LAB 01505-3(LOINC) VOL% O2 Normal Content POCT 15.3 LAB 90313-2(LOINC) 1.12-1.32 mMol/L Low Calcium Ionized 0.91 POCT LAB 71633-1(LOINC) 3.5-5.0 mEq/L High Potassium POCT 5.1 LAB 82703-9(LOINC) 0.5-1.6 mMol/L High Lactate POCT 2.9 LAB 20589-3(LOINC) 70-110 mg/dL High Glucose POCT 228 LAB 2744-1(LOINC) 7.35-7.45 Blood Normal Gas pH Arterial 7.40 POCT Result Comment: A result of UNABLE indicates the actual value could not be calculated. Treatment ranges and critical values established by Patient Care Services. All follow-up actions were taken by Patient Care Services. LAB 2708-6(LOINC) 95.0-99.0 % O2 High Saturation Arterial POCT 99.9 LAB 2951-2(LOINC) 136-146 mEq/L Sodium Normal POCT 141 LAB 59406-5(LOINC) FiO2 Normal POCT 100.0 LAB 718-7(LOINC) 13.5-17.5 gm/dL Low Hemoglobin POCT 10.8 Performed By: #### 10665-1b0 #### POINT OF CARE CBC Collected: 09/26/2018 Status: F Source: [facility] 2:10 PM [facility]ALTH SYSTEM REPOSITORY TYPE CODE TESTS RESULT OUT OF REFERENCE UNITS RANGE LAB 06919-1(LO 142-424 thou/mcL INC) Normal Platelet Count 151 LAB 47536-8(LO 32.0-36.0 gm/dL INC) MCHC Normal 32.7 LAB 51495-4(LO 80.0-97.0 FL INC) MCV Normal 83.9 LAB 718-7(LOIN 13.5-17.5 gm/dL C) Low Hemoglobin 10.7 LAB 55408-3(LO 39.0-49.0 % INC) Low Hematocrit 32.8 LAB 47798-1(LO 4.30-5.70 million/mcL INC) Low Red Blood Cell 3.91 Count LAB 07802-2(LO 6.2-12.1 FL INC) MPV Normal 9.0 LAB 00046-5(LO 11.0-14.8 % INC) RDW High 14.9 LAB 31463-7(LO 27.0-34.0 Picograms INC) MCH Normal 27.4 LAB 40776-8(LO 4.6-10.2 thou/mcL INC) WBC High Count 16.8 Performed By: #### 54941-2 #### [facility] [address], [place] GFRAA Collected: 09/26/2018 Status: F Source: [facility] 2:10 PM [facility] SYSTEM REPOSITORY TYPE CODE TESTS RESULT OUT OF RANGE REFERENCE UNITS LAB 72895-6(LO mL/min INC) GFR Normal Estimated 50 Result Comment: The MDRD equation has not been validated for those over 70 years, women, patients with serious co-morbid conditions, or with extremes of body size, muscle mass of nutritional status. Performed By: #### 38725-7, 81698-8u4, 16582-7, 02570-8 #### [facility] [address], [place] GFRBB Collected: 09/26/2018 Status: F Source: [facility] 2:10 PM [facility] SYSTEM REPOSITORY TYPE CODE TESTS RESULT OUT OF RANGE REFERENCE UNITS LAB 19977-8(LO mL/min INC) GFR Normal Estimated Non 41 Performed By: #### 81912-1, 66170-5p1, 69408-1, 58338-3 #### [facility] [address], [place] MAGNESIUM LEVEL Collected: 09/26/2018 Status: F Source: [facility] 2:10 PM [facility] SYSTEM REPOSITORY TYPE CODE TESTS RESULT OUT OF REFERENCE UNITS RANGE LAB 77440-7(LO 1.8-2.5 mg/dL INC) High Magnesium Level 3.1 Performed By: #### 43173-4, 49540-6o0, 38016-1, 04565-6 #### [facility] [address], [place] BASIC METABOLIC PANEL Collected: 09/26/2018 Status: F Source: [facility] 2:10 PM [facility]ALTH SYSTEM REPOSITORY TYPE CODE TESTS RESULT OUT OF RANGE REFERENCE UNITS LAB 2160-0(HANY 0.60-1.30 mg/dL NC) High Creatinine 1.66 LAB 52181-4(LO 8-20 mg/dL INC) High BUN 47 LAB 23201-5(LO 6.0-18.0 mMol/L INC) Anion Normal Gap 16.0 LAB 2075-0(HANY 98-107 mMol/L NC) Chloride Normal Level 102 LAB 2951-2(HANY 136-145 mMol/L NC) Sodium Normal Level 139 LAB 2823-3(HANY 3.6-5.1 mMol/L NC) Normal Potassium Level 5.1 LAB 97539-2(LO 70-110 mg/dL INC) High Glucose Level 243 LAB 14312-2(LO 8.9-10.3 mg/dL INC) Low Calcium Total 7.9 LAB 2028-9(HANY 22-32 mMol/L NC) Low Carbon Dioxide Level 21 Performed By: #### 84694-1, 81556-0f0, 97513-3, 20564-9 #### [facility] [address], [place] PROTHROMBIN TIME Collected: 09/26/2018 Status: F Source: [facility] 2:10 PM [facility]ALTH SYSTEM REPOSITORY TYPE CODE TESTS RESULT OUT OF RANGE REFERENCE UNITS LAB 5902-2(HANY 9.3-12.4 Sec NC) High Prothrombin Time (PT) 15.1 LAB 33311-7(LO INC) INR Normal 1.31 Result Comment: The recommended therapeutic INR range for most cardiac indications is 2.0-3.0. For high intensity therapy(ie.mechanical heart valves), the recommended range is 2.5-3.5. Performed By: #### 5902-2, 3173-2 #### [facility] [address], [place] PARTIAL THROMBOPLASTIN Collected: 09/26/2018 Status: F Source: [facility] TIME (APTT) 2:10 PM HEALTH SYSTEM REPOSITORY TYPE CODE TESTS RESULT OUT OF REFERENCE UNITS RANGE LAB 72221-9(LO 23.6-35.3 Sec INC) Partial Normal Thromboplastin 28.2 (aPTT) Performed By: #### 5902-2, 3173-2 #### [facility] [address] [place], [place] OR NURSING Observed: 09/26/2018 Status: C Source: [facility] 1:55 PM HEALTH SYSTEM REPOSITORY [facility] OR Nursing Record Summary Primary Physician: Mraiano Moreno MD Finalized Date/Time: 09/28/18 16:00:27 Pt. Name: LOVE PHLEAN Erinn WongB./Sex: 1945 Male Med Rec #: [id number] Physician: Jose F Nagel MD Financial #: [id number] Pt. Type: I Room/Bed: [address] [place] [address] Admit/Disch: 09/21/18 05:02:00 - Institution: [facility] Case Times Entry 1 Patient Times Patient In Room 09/26/18 07:30:00 Patient Out Room 09/26/18 14:12:00 Surgical Times Start Time 09/26/18 08:57:00 Stop Time 09/26/18 13:55:00 Last Modified By: Reyna Rodriguez RN 09/26/18 14:15:41 [facility] Case Attendees Entry 1 Entry 2 Entry 3 Case Attendee Berry AMBRIZ , Mariano Espino MD , Zachary AMBROCIO, Akira Mcghee Role Performed Primary Surgeon Anesthesiologist PA Alum Plant Supervisor Time In 09/26/18 07:30:00 09/26/18 07:30:00 09/26/18 07:30:00 Time Out 09/26/18 14:12:00 09/26/18 14:12:00 09/26/18 14:12:00 Procedure Repair or Replace Valve Repair or Replace Valve Repair or Replace Valve Mitral Min Invas(Left) Mitral Min Invas(Left) Mitral Min Invas(Left) Attendee Comment Relief Reason Last Modified By: Jennifer RN , Reyna Rodriguez RN , Reyna Goldsmith RN 09/26/18 14:15:42 09/26/18 14:15:42 09/26/18 14:15:42 Entry 4 Entry 5 Entry 6 Case Attendee Asha Ivan, Carlos Carney RN , Ramona Goff Role Performed First Scrub Radial Arm Saw Operator RN Time In 09/26/18 07:30:00 09/26/18 07:30:00 09/26/18 07:30:00 Time Out 09/26/18 14:12:00 09/26/18 14:12:00 09/26/18 14:12:00 Procedure Repair or Replace Valve Repair or Replace Valve Repair or Replace Valve Mitral Min Invas(Left) Mitral Min Invas(Left) Mitral Min Invas(Left) Attendee Comment Relief Reason Last Modified By: Jennifer DHALIWAL , Reyna Rodriguez RN , Reyna Goldsmith RN 09/26/18 14:15:42 09/26/18 14:15:42 09/26/18 14:15:42 Entry 7 Entry 8 Case Attendee Jennifer DHALIWAL , Reyna Dumont Case, Attendee Other Role Performed elementary school music teacher Metal Casket Maker Time In 09/26/18 07:30:00 09/26/18 07:30:00 Time Out 09/26/18 14:12:00 09/26/18 14:12:00 Procedure Repair or Replace Valve Repair or Replace Valve Mitral Min Invas(Left) Mitral Min Invas(Left) Attendee Comment [employer] Relief Reason Last Modified By: Reyna Rodriguez RN, RN, Emily A 09/26/18 14:15:42 09/26/18 14:15:42 [facility] General Case Die Tripper 1 OR CO EHC 01 ASA Class 4 Case Wound Class Clean Specialty Cardiac Surgery Case Level CardioThor Complex Diagnosis Preop Diagnosis MR Postop Same As Preop Yes Postop Diagnosis MR This is a down time No record. Last Modified By: Reyna Rodriguez RN 09/26/18 11:03:53 [facility] Surgical Procedures Entry 1 Procedure Repair or Replace Valve Primary Procedure Yes Mitral Min Invasive Modifiers Left Procedure Wound Clean Class Primary Surgeon Mariano Moreno MD Surgical Service Cardiac Surgery Anesthesia Type General Procedure Performed MINI LEFT THORACOTAMY, MITRAL VALVE REPLACEMENT Start 09/26/18 08:57:00 Stop 09/26/18 13:55:00 Last Modified By: Sarah Miller RN 09/28/18 16:00:22 General Comments: 09/28/2018 1559 Updated Procedure Performed MINI LEFT THORACOTAMY, MITRAL VALVE REPAIR/REPLACE based on the Operative Report. Sarah FLANAGANN, RN, nurse senior internal auditor [facility] Catheters, Drains,Tubes Entry 1 Entry 2 Entry 3 Device Type CATH BARD SPENCE TRAY DRAIN CHANNEL ROUND DRAIN CHANNEL ROUND 16FR TEMP SEN W/URINE 24FR [id number] 24FR [id number] METER [id number] Present on Arrival? No No No Location Bladder CHEST CHEST Inserted By Rommel DHALIWAL , Ramoan Moreno MD , Mariano Moreno MD , Mariano Comments DC'd at End of Case? No No No DC'd By Last Modified By: Reyna Rodriguez RN, RN , Reyna Goldsmith RN 09/26/18 08:29:54 09/26/18 12:42:01 09/26/18 12:42:01 Entry 4 Device Type DRAIN CHANNEL ROUND 24FR [id number] Present on Arrival? No Location CHEST Inserted By Berry AMBRIZ , Mariano Comments DC'd at End of Case? No DC'd By Last Modified By: Reyna Rodriguez RN 09/26/18 13:25:00 [facility] Patient Positioning Entry 1 Skin Condition Unchanged from Body Position Supine Before Pre-Procedure Pressure Points Yes Right Arm Position At side Assessed? Left Arm Position At side Arm Secured Right, Left Positioning Device Blankets, Axillary Roll Right Leg Position Straight Left Leg Position Straight Safety Strap Applied No Positioned By Reyna Rodriguez RN, Procedure Repair or Replace Valve Ramona Carney RN Mitral Min Invas(Left) Last Modified By: Reyna Rodriguez RN 09/26/18 08:31:01 [facility] Skin Prep Entry 1 Hair Removal Method None Skin Prep Prep Agents Betadine with Alcohol Prep Site chin to knees Prep by Ramona Carney RN Procedure Repair or Replace Valve Mitral Min Invas(Left) Last Modified By: Reyna Rodriguez RN 09/26/18 08:31:33 [facility] Fire Risk Assessment Entry 1 Alcohol Based Prep Yes Solution Dry Time >3 Minutes or According to Manufactures Instructions. No Pooling Observed. (No Alcohol Prep used Select N/A) Fire Risk Factors Yes = 1, No or N/A = 0 Procedure Yes Open O2 Source No Site/Incision Above (Face Mask/Nasal Xyphoid Process Cannula) Ignition source Yes Fire Risk Total 2 (Cautery, Laser, Score Fiberoptic Light Source) Last Modified By: Reyna Rodriguez RN 09/26/18 08:31:41 Post-Care Text: Standard Fire Safety precautions - Score 1 or 2 Prep drying time - minimum three minutes Protected heat source (i.e bovie miller) Standard draping procedure HIGH RISK FIRE PRACTICES - SCORE 3 *RN verbalizes to the team the presence of high-risk score and verifies the fire triangle *Write High Risk on the white board *Verbally confirm lowest effective setting on the heat source *Minimize 02 entrapment by proper draping of the patient *Encourage use of wet sponges *Available basin with sterile water and bulb syringe for suppression *Anesthesia Awareness and communication of oxygen flows/concentration *Allow for dispersion of 02 at least 1 minute before and during electrosurgical and laser use and communicate to surgeon *Use lowest tolerable concentration of 02 (less than 30% when able) [facility] Surgical Safety Checklist Entry 1 TIme Out Verified 09/26/18 08:56:00 Procedure Repair or Replace Valve At: Mitral Min Invas(Left) Pre-Induction Patient confirms Before Introduction of Additional identity, site and Incision/Suspend surgical team and/or Verification procedure, Anesthesia all Activities new members, Entire safety check complete, (Before surgical team verbally pulse ox on, Confirm Incision/Start of confirm patient, site, patient allergies, Procedure) procedure, Surgeon Patient aspiration risk reviews: what are the was assessed and critical or unexpected equipment/assistance steps, operative available if necessary, duration, and Blood loss assessment; anticipated blood if risk of >500 mL loss?, Anesthesia blood loss (7mL/kg in reviews: are there any children) adequate IV patient-specific access, fluids and/or concerns?, Nursing team blood products planned, reviews: has sterility Implants, devices, been confirmed and are special equipment there any available and patient-specific functioning concerns?, Antibiotic infused/ing and redosing discussed if applicable, Relevant images and results properly labeled and correctly displayed if applicable Fire Risk Yes Assessment Completed Last Modified By: Reyna Rodriguez RN 09/26/18 09:06:31 [facility] Cautery Entry 1 Entry 2 Cautery and Settings Type Monopolar Monopolar Unit ID Number a b Power Setting Coagulation Setting 20-60 20-60 Cut Setting Blend Setting Liter Flow Rate Grounding Pad Location Applied By Last Modified By: Jennifer DHALIWAL , Reyna Goldsmith RN 09/26/18 08:32:14 09/26/18 08:32:14 [facility] Medication Entry 1 Entry 2 Entry 3 Times Med Administered Medication CO HEPARIN 1 000UNITS/ HEMOSTAT ABSORB HEMOSTAT ABSORB 500ML SALINE FLUSH SURGICEL 2X4IN SURGICEL 2X4IN FIBRILLAR 1961 FIBRILLAR 1961 Medication Dosage not measured 1 SHEET 1 SHEET Route of flush TOPICAL TOPICAL Administration Meds Administered By Berry AMBRIZ , Mariano Morneo MD , Mariano Moreno MD , Mariano Medication Comment Last Modified By: Jennifer DHALIWAL , Reyna Rodriguez RN , Reyna Goldsmith RN 09/26/18 08:32:30 09/26/18 12:41:43 09/26/18 12:41:43 [facility] Implants Entry 1 Procedure Repair or Replace Valve Implant/Explant Implant Mitral Min Invas(Left) Provided by Surgeon No Implant Identification Description VALVE MITRAL [id number] Carpet Cutter [employer] 27MM CINCH MILLER [id number] Catalog Number [id number] Lot Number N/A Serial Number [id number] Implant Site HEART Quantity 1 Expiration Date 03/02/21 No Expiration Date No Tissue Tissue Implanted Yes Material Used to 0.9% SODIUM CHLORIDE Prepare/Process IRRIGATION [id number] Tissue [employer] USED FOR SALINE RINSE [id number] EXP 07/2021 Processed By: Ramona Carney RN Last Modified By: Reyna Rodriguez RN 09/26/18 10:38:56 [facility] Counts Entry 1 Entry 2 Entry 3 Instrument Count Initial Count Done 1st count correct N/A Surgeon Notified of Yes Yes Yes Count Sponge Count Initial Count Done 1st count correct 2nd count correct X-ray Taken No No No Sharps/Miscellaneous Initial Count Done 1st count correct 2nd count correct Count RN Performing Count Ramona Carney RN, RN , Ramona Ontiveros RN Count Performed with sAha Ivan Kristin [place], Kristin Comment Procedure Repair or Replace Valve Repair or Replace Valve Repair or Replace Valve Mitral Min Invas(Left) Mitral Min Invas(Left) Mitral Min Invas(Left) Last Modified By: Reyna Rodriguez RN, RN, Emily A Corzatt RN Reyna Tim 09/26/18 08:32:50 09/26/18 13:43:04 09/26/18 13:43:04 [facility] Dressing/Packing Entry 1 Dressing Dressing/Packing eye pad/tegaderm to Dressing/Packing groins/central line Type groins. Site biopatch/tegaderm to central line Last Modified By: Reyna Rodriguez RN 09/26/18 09:05:11 [facility] Temperature Regulation Entry 1 Device CO UNIT LEFTY HUGGER Unit ID n/a Site tube warmer Warm blankets, Warm fluids Last Modified By: Reyna Rodriguez RN 09/26/18 09:06:44 [facility] Final Count Entry 1 Sponges Correct Yes Sharps/Miscellaneous Yes Correct Instruments Correct Yes Count Performed with Asha Ivan RN Performing Count Reyna Rodriguez RN Surgeon Notified of Yes Count X-ray Taken No Procedure Repair or Replace Valve Mitral Min Invas(Left) Last Modified By: Reyna Rodriguez RN 09/26/18 13:43:16 [facility] PNDS Risk of Impaired Skin Entry 1 Interventions/Activi Identifies physical OUTCOME STATEMENTS: The patient is free ties: alterations that may from visible signs and affect symptoms of injury procedure-specific related to positioning, positioning., Positions immobilization, the patient., pressure and/or Implements protective shearing forces. measures to prevent skin or tissue injury due to thermal, chemical, or mechanical sources., Uses supplies and equipment within safe parameters., Evaluates for signs and symptoms of injury as a result of positioning, immobilization, pressure and/or shearing forces. Last Modified By: Reyna Rodriguez RN 09/26/18 09:07:08 [facility] PNDS Risk of Infection Entry 1 INTERVENTIONS/ACTIVI Implements aseptic OUTCOME STATEMENT: The patient is free of TIES: technique., Classifies signs and symptoms of surgical wound., infection at the Assesses susceptibility conclusion of the for infection., operative period. Performs skin preparations., Protects from cross-contamination., Monitors for signs and symptoms of infection., Minimizes the length of invasive procedure planning care., Administers prescribed prophylactic treatments., Initiates traffic control., Administers care to invasive device sites., Administers care to wound sites. Last Modified By: Reyna Rodriguez RN 09/26/18 09:07:11 [facility] PNDS Risk of Injury Entry 1 Interventions/Activi Implements protective OUTCOME STATEMENT: The patient is free ties: measures to prevent from visible signs and injury due to symptoms of injury electrical sources., related to electrical, Implements protective mechanical, radiation measures to prevent or laser. injury due to mechanical sources, Implements latex allergy precautions as needed, Records devices implanted during invasive procedure., Performs required counts., Evaluates for signs and symptoms of laser, electrical, mechanical and radiation injury. Last Modified By: Reyna Rodriguez RN 09/26/18 09:07:16 [facility] Patient Debriefing Entry 1 Patient Debriefing Verify name of Skin Assessment Unchanged from procedure(s) performed After Pre-Procedure including site/side, Sponge and needle counts are correct, N/A review specimens and how each is labeled, Discuss equipment, instrument problems reported and case improvements, Review humphrey concerns for further patient management Last Modified By: Reyna Rodriguez RN 09/26/18 09:07:30 Case Comments <None> Finalized By: Sarah Miller RN Document Signatures Signed By: Reyna Rodriguez RN 09/26/18 14:15 Sarah Miller RN 09/28/18 16:00 PROGRESS NOTES Observed: 09/26/2018 Status: F Source: [facility]:48 [facility] REPOSITORY PROGRESS NOTES Op note Dx - Severe MR /CHF Procedure - MVR 27mm [employer] tissue BLOOD GAS POCT ABG Collected: 09/26/2018 Status: F Source: [facility] LYTES LACTATE 1:07 PM [facility] (UPLOAD) REPOSITORY TYPE CODE TESTS RESULT OUT OF REFERENCE UNITS RANGE LAB 2019-8(LO 32-48 mmHg INC) pCO2 Arterial POCT Normal 43 LAB 2951-2(LO 136-146 mEq/L INC) Sodium POCT Normal 139 LAB 21187-4(L -2.0-3.0 mMol/L OINC) Low Base Excess POCT -4.9 LAB 2708-6(LO 95.0-99.0 % INC) O2 Saturation Arterial High POCT 99.9 LAB 11404-7(L 1.12-1.32 mMol/L OINC) Calcium Ionized POCT Normal 1.18 LAB 64061-3(L 39-49 % OINC) Low Hematocrit POCT 30 LAB 64677-0(L 70-110 mg/dL OINC) Glucose POCT High 224 LAB 2026-3(LO 22.0-29.0 mMol/L INC) Low Total CO2 Arterial POCT 20.3 LAB 2703-7(LO 83-108 mmHg INC) pO2 Arterial POCT High 233 LAB 40396-6(L 3.5-5.0 mEq/L OINC) Potassium POCT Normal 5.0 LAB 37051-3(L 94.0-99.0 % OINC) O2 Hemoglobin POCT Normal 98.2 LAB 28608-7(L % OINC) Carboxyhemoglobin POCT Normal 1.1 Result Comment: NON SMOKERS <1.5% SMOKERS 1.5 - 9.0% LAB 17395-6(LOINC) FiO2 POCT Normal 100.0 LAB 00764-2(LOINC) Sample Type POCT Normal Arterial LAB 718-7(LOINC) 13.5-1 gm/dL Low 7.5 Hemoglobin POCT 9.7 LAB 58140-6(LOINC) 10.0-2 mEq/L 0.0 Anion Gap POCT Normal 15.0 LAB 13824-5(LOINC) VOL% O2 Content POCT Normal 13.9 LAB 17531-5(LOINC) 21.0-2 mMol/ 8.0 L HCO3 Arterial Normal POCT 21.2 LAB 2614-6(LOINC) 0.2-0. % 6 Methemoglobin Normal POCT 0.5 LAB 00117-1(LOINC) 0.5-1. mMol/ High 6 L Lactate POCT 4.1 LAB 2744-1(LOINC) 7.35-7 Low .45 Blood Gas pH Arterial POCT 7.30 Result Comment: A result of UNABLE indicates the actual value could not be calculated. Treatment ranges and critical values established by Patient Care Services. All follow-up actions were taken by Patient Care Services. LAB 2075-0(LOINC) 98-106 mEq/L Normal Chloride POCT 103 Performed By: #### [id number] #### POINT OF CARE BLOOD GAS POCT ABG Collected: 09/26/2018 Status: F Source: [place] LYTES LACTATE 12:51 PM [facility] (UPLOAD) REPOSITORY TYPE CODE TESTS RESULT OUT OF REFERENCE UNITS RANGE LAB 2614-6(LO 0.2-0.6 % INC) Methemoglobin POCT Normal 0.3 LAB 2708-6(LO 95.0-99.0 % INC) O2 Saturation Arterial High POCT 99.8 LAB 04748-4(L 3.5-5.0 mEq/L OINC) Potassium POCT High 5.1 LAB 05227-0(L % OINC) Carboxyhemoglobin POCT Normal 1.1 Result Comment: NON SMOKERS <1.5% SMOKERS 1.5 - 9.0% LAB 05633-1(LOINC) 94.0-99.0 % O2 Normal Hemoglobin POCT 98.5 LAB 52775-0(LOINC) 1.12-1.32 mMol/L Low Calcium Ionized 0.97 POCT LAB 08429-6(LOINC) 21.0-28.0 mMol/L HCO3 Low Arterial POCT 19.2 LAB 2951-2(LOINC) 136-146 mEq/L Normal Sodium POCT 141 LAB 22577-9(LOINC) 0.5-1.6 mMol/L High Lactate POCT 4.3 LAB 31471-2(LOINC) 70-110 mg/dL High Glucose POCT 220 LAB 72471-0(LOINC) 10.0-20.0 mEq/L Anion Normal Gap POCT 19.8 LAB 2703-7(LOINC) 83-108 mmHg pO2 High Arterial POCT 193 LAB 718-7(LOINC) 13.5-17.5 gm/dL Low Hemoglobin POCT 8.4 LAB 6-3(LOINC) 22.0-29.0 mMol/L Total Low CO2 Arterial 18.9 POCT LAB 66887-8(LOINC) 39-49 % Low Hematocrit POCT 26 LAB 2018-8(LOINC) 32-48 mmHg pCO2 Normal Arterial POCT 44 LAB 30330-9(LOINC) -2.0-3.0 mMol/L Base Low Excess POCT -7.6 LAB 49250-6(LOINC) FiO2 Normal POCT 100.0 LAB 2075-0(LOINC) 98-106 mEq/L Normal Chloride POCT 102 LAB 12984-2(LOINC) Normal Sample Type Arterial POCT LAB 2744-1(LOINC) 7.35-7.45 Blood Low Gas pH Arterial 7.25 POCT Result Comment: A result of UNABLE indicates the actual value could not be calculated. Treatment ranges and critical values established by Patient Care Services. All follow-up actions were taken by Patient Care Services. LAB 96909-8(LOINC) VOL% Normal O2 Content POCT 12.1 Performed By: #### [id number] #### POINT OF CARE BLOOD GAS POCT ABG Collected: 09/26/2018 Status: F Source: [facility] LACT[facility] 12:26 [facility] (UPLOAD) REPOSITORY TYPE CODE TESTS RESULT OUT OF RANGE REFERENCE UNITS LAB 38574-8(LO 10.0-20.0 mEq/L INC) Normal Anion Gap POCT 14.3 LAB 2744-1(HANY 7.35-7.45 NC) Normal Blood Gas pH 7.36 Arterial POCT Result Comment: A result of UNABLE indicates the actual value could not be calculated. Treatment ranges and critical values established by Patient Care Services. All follow-up actions were taken by Patient Care Services. LAB 2614-6(LOINC) 0.2-0.6 % Methemoglobin POCT Normal 0.4 LAB 2951-2(LOINC) 136-146 mEq/L Sodium POCT Normal 140 LAB 59923-3(LOINC) 70-110 mg/dL Glucose POCT High 261 LAB 2703-7(LOINC) 83-108 mmHg pO2 Arterial POCT High 143 LAB 93731-1(LOINC) 0.5-1.6 mMol/L Lactate POCT High 3.2 LAB 22887-3(LOINC) Sample Type POCT Normal Arterial LAB 95768-0(LOINC) VOL% O2 Content POCT Normal 12.3 LAB 6-3(LOINC) 22.0-29.0 mMol/L Total CO2 Arterial Normal POCT 22.7 LAB 33573-8(LOINC) 1.12-1.32 mMol/L Calcium Ionized POCT Low 1.05 LAB 2708-6(LOINC) 95.0-99.0 % O2 Saturation High Arterial POCT 99.3 LAB 5-0(LOINC) 98-106 mEq/L Chloride POCT Normal 102 LAB 84701-3(LOINC) FiO2 POCT Normal 100.0 LAB 65354-8(LOINC) 94.0-99.0 % O2 Hemoglobin POCT Normal 97.6 LAB 2019-(LOINC) 32-48 mmHg pCO2 Arterial POCT Normal 42 LAB 718-7(LOINC) 13.5-17.5 gm/dL Hemoglobin POCT Low 8.7 LAB 62723-9(LOINC) 39-49 % Hematocrit POCT Low 27 LAB 03258-6(LOINC) 21.0-28.0 mMol/L HCO3 Arterial POCT Normal 23.8 LAB 34882-5(LOINC) % Carboxyhemoglobin Normal POCT 1.2 Result Comment: NON SMOKERS <1.5% SMOKERS 1.5 - 9.0% LAB 83251-7(LOINC) -2.0-3.0 mMol/L Normal Base Excess POCT -1.6 LAB 74031-5(LOINC) 3.5-5.0 mEq/L Normal Potassium POCT 4.9 Performed By: #### [id number] #### POINT OF CARE BLOOD GAS POCT Collected: 09/26/2018 Status: F Source: [place] ELECTROLYTES ARTERIAL 11:41 AM [facility] ([facility] REPOSITORY TYPE CODE TESTS RESULT OUT OF REFERENCE UNITS RANGE LAB 86318-0(L OINC) FiO2 POCT Normal 100.0 LAB 60165-5(L OINC) Sample Type POCT Normal Arterial LAB 5-0(LO 98-106 mEq/L INC) Chloride POCT Normal 99 LAB 28565-8(L % OINC) Carboxyhemoglobin POCT Normal 0.8 Result Comment: NON SMOKERS <1.5% SMOKERS 1.5 - 9.0% LAB 2019-05(LOINC) 32-48 mmHg pCO2 Arterial Normal POCT 36 LAB 45459-6(LOINC) 3.5-5.0 mEq/L Potassium POCT High 6.1 LAB 02181-7(LOINC) 94.0-99.0 % O2 Hemoglobin Normal POCT 98.6 LAB 99828-9(LOINC) 1.12-1.32 mMol/L Calcium Ionized Normal POCT 1.18 LAB 2614-6(LOINC) 0.2-0.6 % Methemoglobin High POCT 0.8 LAB 48314-7(LOINC) 21.0-28.0 mMol/L HCO3 Arterial Normal POCT 24.6 LAB 70358-2(LOINC) VOL% O2 Content POCT Normal 13.0 LAB 2951-2(LOINC) 136-146 mEq/L Sodium POCT Normal 137 LAB 42855-6(LOINC) 70-110 mg/dL Glucose POCT High 320 LAB 718-7(LOINC) 13.5-17.5 gm/dL Low Hemoglobin POCT 8.6 LAB 40823-7(LOINC) 10.0-20.0 mEq/L Anion Gap POCT Normal 13.3 LAB 2026-3(LOINC) 22.0-29.0 mMol/L Total CO2 Normal Arterial POCT 23.2 LAB 2744-1(LOINC) 7.35-7.45 Blood Gas pH Normal Arterial POCT 7.45 Result Comment: A result of UNABLE indicates the actual value could not be calculated. Treatment ranges and critical values established by Patient Care Services. All follow-up actions were taken by Patient Care Services. LAB 2703-7(LOINC) 83-108 mmHg High pO2 Arterial POCT 371 LAB 34362-6(LOINC) 39-49 % Low Hematocrit POCT 27 LAB 2708-6(LOINC) 95.0-99.0 % High O2 Saturation Arterial POCT 100.2 LAB 65199-8(LOINC) -2.0-3.0 mMol/L Base Normal Excess POCT 0.7 Performed By: #### CD:[id number] #### POINT OF CARE BLOOD GAS POCT Collected: 09/26/2018 Status: F Source: [place] ELECTROLYTES ARTERIAL 11:30 AM [facility] (UPLOADED) REPOSITORY TYPE CODE TESTS RESULT OUT OF REFERENCE UNITS RANGE LAB 2019-8(LO 32-48 mmHg INC) pCO2 Arterial POCT Normal 35 LAB 79104-3(L -2.0-3.0 mMol/L OINC) Low Base Excess POCT -2.2 LAB 32625-8(L % OINC) Carboxyhemoglobin POCT Normal 0.8 Result Comment: NON SMOKERS <1.5% SMOKERS 1.5 - 9.0% LAB 77357-2(LOINC) 10.0-20.0 mEq/L Normal Anion Gap POCT 13.5 LAB 2744-1(LOINC) 7.35-7.45 Normal Blood Gas pH Arterial POCT 7.41 Result Comment: A result of UNABLE indicates the actual value could not be calculated. Treatment ranges and critical values established by Patient Care Services. All follow-up actions were taken by Patient Care Services. LAB 61237-1(LOINC) VOL% O2 Content Normal POCT 13.3 LAB 42944-2(LOINC) 3.5-5 mEq/L .0 Potassium POCT High 6.7 LAB 51534-9(LOINC) 94.0- % 99.0 O2 Hemoglobin Normal POCT 98.6 LAB 94655-4(LOINC) Sample Type Normal POCT Arterial LAB 2708-6(LOINC) 95.0- % 99.0 O2 Saturation High Arterial POCT 100.2 LAB 2951-2(LOINC) 136-1 mEq/L Low 46 Sodium POCT 135 LAB 2614-6(LOINC) 0.2-0 % .6 Methemoglobin High POCT 0.8 LAB 718-7(LOINC) 13.5- gm/dL Low 17.5 Hemoglobin POCT 8.9 LAB 58244-8(LOINC) 21.0- mMol/L 28.0 HCO3 Arterial Normal POCT 22.1 LAB 29696-9(LOINC) 39-49 % Low Hematocrit POCT 27 LAB 2075-0(LOINC) 98-10 mEq/L 6 Chloride POCT Normal 99 LAB 2703-7(LOINC) 83-10 mmHg 8 pO2 Arterial High POCT 365 LAB 6-3(LOINC) 22.0- mMol/L Low 29.0 Total CO2 Arterial POCT 20.9 LAB 39919-6(LOINC) 70-11 mg/dL 0 Glucose POCT High 334 LAB 24022-9(LOINC) 1.12- mMol/L Low 1.32 Calcium Ionized POCT 1.00 LAB 74909-2(LOINC) FiO2 POCT Normal 100.0 Performed By: #### [id number] #### POINT OF CARE BLOOD GAS POCT ABG Collected: 09/26/2018 Status: F Source: [facility] LACT[facility] 11:15 AM [facility] (UPLOAD) REPOSITORY TYPE CODE TESTS RESULT OUT OF REFERENCE UNITS RANGE LAB 2703-7(LO 83-108 mmHg INC) pO2 Arterial POCT High 375 LAB 97357-9(L 10.0-20.0 mEq/L OINC) Anion Gap POCT Normal 11.8 LAB 51270-4(L VOL% OINC) O2 Content POCT Normal 13.3 LAB 2951-2(LO 136-146 mEq/L INC) Sodium POCT Normal 138 LAB 2614-6(LO 0.2-0.6 % INC) Methemoglobin POCT High 0.7 LAB 69433-1(L OINC) FiO2 POCT Normal 85.0 LAB 2019-8(LO 32-48 mmHg INC) pCO2 Arterial POCT Normal 35 LAB 71041-1(L % OINC) Carboxyhemoglobin POCT Normal 1.1 Result Comment: NON SMOKERS <1.5% SMOKERS 1.5 - 9.0% LAB 60667-6(LOINC) 70-110 mg/dL High Glucose POCT 304 LAB 2708-6(LOINC) 95.0-99.0 % O2 High Saturation 100.0 Arterial POCT LAB 6-3(LOINC) 22.0-29.0 mMol/L Total Normal CO2 Arterial 24.9 POCT LAB 74224-7(LOINC) Normal Sample Type Arterial POCT LAB 2075-0(LOINC) 98-106 mEq/L Normal Chloride POCT 100 LAB 2744-1(LOINC) 7.35-7.45 Blood High Gas pH Arterial 7.49 POCT Result Comment: A result of UNABLE indicates the actual value could not be calculated. Treatment ranges and critical values established by Patient Care Services. All follow-up actions were taken by Patient Care Services. LAB 27857-4(LOINC) 21.0-28.0 mMol/L HCO3 Normal Arterial POCT 26.6 LAB 16615-0(LOINC) -2.0-3.0 mMol/L Base High Excess POCT 3.2 LAB 55894-4(LOINC) 0.5-1.6 mMol/L High Lactate POCT 2.7 LAB 65865-6(LOINC) 94.0-99.0 % O2 Normal Hemoglobin POCT 98.5 LAB 48216-4(LOINC) 39-49 % Low Hematocrit POCT 27 LAB 98295-6(LOINC) 1.12-1.32 mMol/L Low Calcium Ionized POCT 1.02 LAB 36509-1(LOINC) 3.5-5.0 mEq/L High Potassium POCT 7.1 LAB 718-7(LOINC) 13.5-17.5 gm/dL Low Hemoglobin POCT 8.9 Performed By: #### [id number] #### POINT OF CARE BLOOD GAS POCT ABG Collected: 09/26/2018 Status: F Source: [facility] 11:10 AM [facility] (UPLOAD) REPOSITORY TYPE CODE TESTS RESULT OUT OF RANGE REFERENCE UNITS LAB 2075-0(HANY 98-106 mEq/L NC) Chloride Normal POCT 100 LAB 79925-7(LO 70-110 mg/dL INC) High Glucose POCT 300 LAB 64402-2(LO 0.5-1.6 mMol/L INC) High Lactate POCT 2.8 LAB 2019-8(HANY 32-48 mmHg NC) Low pCO2 Arterial POCT 31 LAB 44375-8(LO 10.0-20.0 mEq/L INC) Anion Normal Gap POCT 12.3 LAB 83433-3(LO 3.5-5.0 mEq/L INC) High Potassium POCT 7.1 LAB 63738-2(LO -2.0-3.0 mMol/L INC) Low Base Excess POCT -3.8 LAB 40080-9(LO 39-49 % INC) Low Hematocrit POCT 28 LAB 76369-4(LO INC) FiO2 Normal POCT 100.0 LAB 2951-2(HANY 136-146 mEq/L NC) Low Sodium POCT 133 LAB 84766-5(LO VOL% INC) O2 Normal Content POCT 13.7 LAB 2744-1(HANY 7.35-7.45 NC) Blood Normal Gas pH Arterial 7.42 POCT Result Comment: A result of UNABLE indicates the actual value could not be calculated. Treatment ranges and critical values established by Patient Care Services. All follow-up actions were taken by Patient Care Services. LAB 38563-3(LOINC) 1.12-1.32 mMol/L Calcium Ionized POCT Normal 1.15 LAB 98335-1(LOINC) 94.0-99.0 % O2 Hemoglobin POCT Normal 98.8 LAB 2614-6(LOINC) 0.2-0.6 % Methemoglobin POCT High 0.7 LAB 2026-3(LOINC) 22.0-29.0 mMol/L Total CO2 Arterial Low POCT 19.0 LAB 2708-6(LOINC) 95.0-99.0 % O2 Saturation High Arterial POCT 100.2 LAB 718-7(LOINC) 13.5-17.5 gm/dL Hemoglobin POCT Low 9.1 LAB 85237-4(LOINC) 21.0-28.0 mMol/L HCO3 Arterial POCT Low 20.1 LAB 65921-3(LOINC) Sample Type POCT Normal Arterial LAB 43995-9(LOINC) % Carboxyhemoglobin Normal POCT 0.8 Result Comment: NON SMOKERS <1.5% SMOKERS 1.5 - 9.0% LAB 2703-7(LOINC) 83-108 mmHg High pO2 Arterial POCT 395 Performed By: #### [id number] #### POINT OF CARE BLOOD GAS POCT Collected: 09/26/2018 Status: F Source: [place] ELECTROLYTES ARTERIAL 10:46 AM [facility] (UPLOADED) REPOSITORY TYPE CODE TESTS RESULT OUT OF RANGE REFERENCE UNITS LAB 2703-7(HANY 83-108 mmHg NC) High pO2 Arterial POCT 470 LAB 2951-2(HANY 136-146 mEq/L NC) Low Sodium POCT 135 LAB 53774-1(LO 10.0-20.0 mEq/L INC) Anion Normal Gap POCT 11.4 LAB 55320-6(LO 39-49 % INC) Low Hematocrit POCT 27 LAB 28660-1(LO 94.0-99.0 % INC) High O2 Hemoglobin POCT 99.1 LAB 2744-1(HANY 7.35-7.45 NC) Blood Normal Gas pH Arterial 7.45 POCT Result Comment: A result of UNABLE indicates the actual value could not be calculated. Treatment ranges and critical values established by Patient Care Services. All follow-up actions were taken by Patient Care Services. LAB 2019-8(LOINC) 32-48 mmHg pCO2 Arterial POCT Low 31 LAB 98276-4(LOINC) FiO2 POCT Normal 100.0 LAB 81112-5(LOINC) VOL% O2 Content POCT Normal 13.5 LAB 2025-3(LOINC) 22.0-29.0 mMol/L Total CO2 Arterial Low POCT 20.4 LAB 2708-6(LOINC) 95.0-99.0 % O2 Saturation High Arterial POCT 100.4 LAB 2614-6(LOINC) 0.2-0.6 % Methemoglobin POCT Normal 0.5 LAB 2075-0(LOINC) 98-106 mEq/L Chloride POCT Normal 102 LAB 10977-1(LOINC) 70-110 mg/dL Glucose POCT High 264 LAB 17337-1(LOINC) Sample Type POCT Normal Arterial LAB 33911-4(LOINC) 21.0-28.0 mMol/L HCO3 Arterial POCT Normal 21.6 LAB 75004-6(LOINC) -2.0-3.0 mMol/L Base Excess POCT Normal -1.9 LAB 09069-0(LOINC) 3.5-5.0 mEq/L Potassium POCT High 6.7 LAB 11712-3(LOINC) 1.12-1.32 mMol/L Calcium Ionized POCT Low 0.90 LAB 718-7(LOINC) 13.5-17.5 gm/dL Hemoglobin POCT Low 8.7 LAB 57190-7(LOINC) % Carboxyhemoglobin Normal POCT 0.8 Result Comment: NON SMOKERS <1.5% SMOKERS 1.5 - 9.0% Performed By: #### CD:[id number] #### POINT OF CARE PREOP NURSING Observed: 09/26/2018 Status: F Source: [place] 10:30 AM [facility] REPOSITORY [facility] PreOp Nursing Record Summary Primary Physician: Mariano Moreno MD Finalized Date/Time: 09/26/18 08:24:50 Pt. Name: LOVE PHELAN/Sex: 1945 Male Med Rec #: [id number] Physician: Jose F Nagel MD Financial #: [id number] Pt. Type: I Room/Bed: / Admit/Disch: 09/21/18 05:02:00 - Institution: [facility] PreOp Case Times Entry 1 PreOp Case Times In Room Time 09/26/18 05:37:00 Out Room Time 09/26/18 07:29:00 Last Modified By: Reyna Rodriguez RN 09/26/18 08:24:44 [facility] PreOp Case Attendees Entry 1 Case Attendee Anat Bueno RN Role Performed RN Last Modified By: Anat Bueno RN 09/26/18 05:38:13 Finalized By: Reyna Rodriguez RN Document Signatures Signed By: Reyna Rodriguez RN 09/26/18 08:24 BLOOD GAS POCT Collected: 09/26/2018 Status: F Source: [place] [facility]LECTROL[facility]TES ARTERIAL 10:25 AM [facility] (UPLOADED) REPOSITORY TYPE CODE TESTS RESULT OUT OF RANGE REFERENCE UNITS LAB 2744-1(HANY 7.35-7.45 NC) Normal Blood Gas pH 7.43 Arterial POCT Result Comment: A result of UNABLE indicates the actual value could not be calculated. Treatment ranges and critical values established by Patient Care Services. All follow-up actions were taken by Patient Care Services. LAB 2708-6(LOINC) 95.0-99.0 % O2 Saturation High Arterial POCT 100.4 LAB 70800-3(LOINC) 3.5-5.0 mEq/L Potassium POCT High 6.3 LAB 73882-7(LOINC) 94.0-99.0 % O2 Hemoglobin POCT Normal 98.7 LAB 72265-4(LOINC) 1.12-1.32 mMol/L Calcium Ionized POCT Low 0.93 LAB 01216-3(LOINC) 21.0-28.0 mMol/L HCO3 Arterial POCT Normal 22.6 LAB 45073-7(LOINC) -2.0-3.0 mMol/L Base Excess POCT Normal -1.5 LAB 28825-6(LOINC) FiO2 POCT Normal 100.0 LAB 82371-6(LOINC) 70-110 mg/dL Glucose POCT High 258 LAB 2951-2(LOINC) 136-146 mEq/L Sodium POCT Normal 136 LAB 2703-7(LOINC) 83-108 mmHg pO2 Arterial POCT High 520 LAB 88759-1(LOINC) VOL% O2 Content POCT Normal 13.2 LAB 718-7(LOINC) 13.5-17.5 gm/dL Hemoglobin POCT Low 8.5 LAB 2614-6(LOINC) 0.2-0.6 % Methemoglobin POCT High 0.8 LAB 2019-8(LOINC) 32-48 mmHg pCO2 Arterial POCT Normal 35 LAB 07768-1(LOINC) 39-49 % Hematocrit POCT Low 26 LAB 75257-1(LOINC) 10.0-20.0 mEq/L Anion Gap POCT Normal 11.1 LAB 2025-3(LOINC) 22.0-29.0 mMol/L Total CO2 Arterial Low POCT 21.5 LAB 15127-0(INC) Sample Type POCT Normal Arterial LAB 5-0(LOINC) 98-106 mEq/L Chloride POCT Normal 102 LAB 74408-1(INC) % Carboxyhemoglobin Normal POCT 0.9 Result Comment: NON SMOKERS <1.5% SMOKERS 1.5 - 9.0% Performed By: #### CD:[id number] #### POINT OF CARE BLOOD GAS POCT ABG Collected: 09/26/2018 Status: F Source: [facility] LACTATE 10:02 [facility] (UPLOAD) REPOSITORY TYPE CODE TESTS RESULT OUT OF REFERENCE UNITS RANGE LAB 41028-1(L 10.0-20.0 mEq/L OINC) Anion Gap POCT Normal 11.2 LAB 17908-0(L 21.0-28.0 mMol/L OINC) Low HCO3 Arterial POCT 20.6 LAB 25129-5(L -2.0-3.0 mMol/L OINC) Low Base Excess POCT -4.4 LAB 59523-6(L % OINC) Carboxyhemoglobin POCT Normal 0.9 Result Comment: NON SMOKERS <1.5% SMOKERS 1.5 - 9.0% LAB 57944-2(LOINC) 70-110 mg/dL Glucose High POCT 236 LAB 2703-7(LOINC) 83-108 mmHg pO2 High Arterial POCT 490 LAB 91414-1(LOINC) 0.5-1.6 mMol/L Lactate Normal POCT 1.1 LAB 718-7(LOINC) 13.5-17.5 gm/dL Low Hemoglobin POCT 8.8 LAB 2074-0(LOINC) 98-106 mEq/L Chloride Normal POCT 104 LAB 2018-8(LOINC) 32-48 mmHg pCO2 Normal Arterial POCT 37 LAB 41171-0(LOINC) FiO2 Normal POCT 100.0 LAB 91735-6(LOINC) 39-49 % Low Hematocrit POCT 27 LAB 2025-3(LOINC) 22.0-29.0 mMol/L Low Total CO2 Arterial POCT 19.7 LAB 25188-8(LOINC) 3.5-5.0 mEq/L High Potassium POCT 5.2 LAB 2744-1(LOINC) 7.35-7.45 Blood Normal Gas pH Arterial POCT 7.36 Result Comment: A result of UNABLE indicates the actual value could not be calculated. Treatment ranges and critical values established by Patient Care Services. All follow-up actions were taken by [facility] Care Services. LAB 45544-1(LOINC) VOL% O2 Content Normal POCT 13.6 LAB 2614-6(LOINC) 0.2-0 % .6 Methemoglobin High POCT 1.0 LAB 04804-0(LOINC) Sample Type Normal POCT Arterial LAB 2951-2(LOINC) 136-1 mEq/L 46 Sodium POCT Normal 136 LAB 52840-5(LOINC) 1.12- mMol/L Low 1.32 Calcium Ionized POCT 0.98 LAB 2708-6(LOINC) 95.0- % 99.0 O2 Saturation High Arterial POCT 100.3 LAB 56578-2(LOINC) 94.0- % 99.0 O2 Hemoglobin Normal POCT 98.3 Performed By: #### [id number] #### POINT OF CARE BLOOD GAS POCT ABG Collected: 09/26/2018 Status: F Source: [facility] REPOSITORY TYPE CODE TESTS RESULT OUT OF REFERENCE UNITS RANGE LAB 2019-8(LO 32-48 mmHg INC) pCO2 Arterial POCT Normal 41 LAB 2703-7(LO 83-108 mmHg INC) pO2 Arterial POCT High 211 LAB 72253-9(L 21.0-28.0 mMol/L OINC) HCO3 Arterial POCT Normal 22.1 LAB 47338-4(L 3.5-5.0 mEq/L OINC) Potassium POCT Normal 4.9 LAB 64756-8(L 94.0-99.0 % OINC) O2 Hemoglobin POCT Normal 97.7 LAB 51703-7(L 39-49 % OINC) Hematocrit POCT Low 27 LAB 2026-3(LO 22.0-29.0 mMol/L INC) Total CO2 Arterial Low POCT 21.1 LAB 2708-6(LO 95.0-99.0 % INC) O2 Saturation Arterial High POCT 99.7 LAB 20266-2(L 70-110 mg/dL OINC) Glucose POCT High 210 LAB 69272-3(L OINC) Sample Type POCT Normal Arterial LAB 2075-0(LO 98-106 mEq/L INC) Chloride POCT Normal 105 LAB 01869-9(L % OINC) Carboxyhemoglobin POCT Normal 1.0 Result Comment: NON SMOKERS <1.5% SMOKERS 1.5 - 9.0% LAB 2744-1(LOINC) 7.35-7.45 Blood Low Gas pH Arterial POCT 7.34 Result Comment: A result of UNABLE indicates the actual value could not be calculated. Treatment ranges and critical values established by [facility]. All follow-up actions were taken by [facility]. LAB 23737-5(LOINC) VOL% O2 Content POCT Normal 12.8 LAB 53913-4(LOINC) 1.12-1 mMol/L Low .32 Calcium Ionized POCT 1.04 LAB 2951-2(LOINC) 136-14 mEq/L 6 Sodium POCT Normal 138 LAB 86691-7(LOINC) 0.5-1. mMol/L 6 Lactate POCT Normal 0.6 LAB 80048-7(LOINC) -2.0-3 mMol/L Low .0 Base Excess POCT -3.4 LAB 20669-2(LOINC) FiO2 POCT Normal 100.0 LAB 2614-6(LOINC) 0.2-0. % High 6 Methemoglobin POCT 0.9 LAB 718-7(LOINC) 13.5-1 gm/dL Low 7.5 Hemoglobin POCT 8.9 LAB 38523-9(LOINC) 10.0-2 mEq/L 0.0 Anion Gap POCT Normal 11.1 Performed By: #### [id number] #### POINT OF CARE BLOOD GAS POCT ABG Collected: 09/26/2018 Status: F Source: [facility] REPOSITORY TYPE CODE TESTS RESULT OUT OF RANGE REFERENCE UNITS LAB 2019-8(HANY 32-48 mmHg NC) pCO2 Normal Arterial POCT 41 LAB 718-7(LOIN 13.5-17.5 gm/dL C) Low Hemoglobin POCT 10.5 LAB 98176-1(LO VOL% INC) O2 Normal Content POCT 14.0 LAB 21245-5(LO 0.5-1.6 mMol/L INC) Lactate Normal POCT 0.7 LAB 2744-1(HANY 7.35-7.45 NC) Blood Normal Gas pH Arterial 7.36 POCT Result Comment: A result of UNABLE indicates the actual value could not be calculated. Treatment ranges and critical values established by Patient Care Services. All follow-up actions were taken by Patient Care Services. LAB 2075-0(LOINC) 98-106 mEq/L Chloride POCT Normal 106 LAB 00406-8(LOINC) 39-49 % Hematocrit POCT Low 32 LAB 95099-8(LOINC) FiO2 POCT Normal 21.0 LAB 2708-6(LOINC) 95.0-99.0 % O2 Saturation Low Arterial POCT 94.9 LAB 00453-8(LOINC) 3.5-5.0 mEq/L Potassium POCT Normal 4.4 LAB 2614-6(LOINC) 0.2-0.6 % Methemoglobin POCT Normal 0.4 LAB 26405-8(LOINC) Sample Type POCT Normal Arterial LAB 2951-2(LOINC) 136-146 mEq/L Sodium POCT Normal 139 LAB 31617-1(LOINC) 21.0-28.0 mMol/L HCO3 Arterial POCT Normal 22.9 LAB 40256-6(LOINC) 94.0-99.0 % O2 Hemoglobin POCT Low 93.6 LAB 36106-1(LOINC) 1.12-1.32 mMol/L Calcium Ionized POCT Normal 1.14 LAB 73557-4(LOINC) -2.0-3.0 mMol/L Base Excess POCT Low -2.5 LAB 2703-7(LOINC) 83-108 mmHg pO2 Arterial POCT Low 75 LAB 21569-2(LOINC) % Carboxyhemoglobin Normal POCT 0.9 Result Comment: NON SMOKERS <1.5% SMOKERS 1.5 - 9.0% LAB 03747-4(LOINC) 70-110 mg/dL High Glucose POCT 207 LAB 19377-4(LOINC) 10.0-20.0 mEq/L Normal Anion Gap POCT 10.5 LAB 2026-3(LOINC) 22.0-29.0 mMol/L Low Total CO2 Arterial POCT 21.5 Performed By: #### [id number] #### POINT OF CARE ANESTHESIA PREOPERATIVE Observed: 09/26/2018 Status: F Source: [facility] ASSESSMENT 7:15 AM [facility] SYSTEM REPOSITORY Patient: LOVE PHELAN MRN: [id number] Age: 73 years Sex: Male : 1945 Associated Diagnoses: None Author: Zachary Espino MD Preoperative Information Planned Procedure No procedure charted miniMVR Histories Past Medical History: Active Acute CHF CHF (congestive heart failure) Diabetes High blood pressure PICC (peripherally inserted central catheter) in place - RUE Triple Social History: Type of Tobacco Use: Cigarettes Smoking Status: Former smoker, quit more than 1 year ago How Often Do You Drink ..: 2 to 4 Times Per Month (2) How Many Standard Drink..: 1 or 2 (0) How Often Did You Have ..: Never (0) Attended AA: No Audit-C Score: 2 Anesthesia History: No previous anesthetic complications Medications Allergies doxycycline: Mild, Hives Home Medications AmLODIPine (amLODipine 10 mg oral tablet) 1 Tab = 10 mg By Mouth once a day GlipiZIDE (glipiZIDE 10 mg oral tablet, extended release) 1 Tab = 10 mg By Mouth Twice a day MetFORMIN (metFORMIN 500 mg oral tablet, extended release) 4 Tab = 2,000 mg By Mouth once a day aspirin (aspirin 81 mg oral tablet) 1 Tab = 81 mg By Mouth once a day atenolol (atenolol 50 mg oral tablet) 1 Tab = 50 mg By Mouth once a day atorvastatin (atorvastatin 20 mg oral tablet) 1 Tab = 20 mg By Mouth once a day cholecalciferol (Vitamin D3 5000 intl units oral tablet) 1 Tab = 5,000 Unit By Mouth once a day clopidogrel (Plavix 75 mg oral tablet) 1 Tab = 75 mg By Mouth once a day cyanocobalamin (cyanocobalamin 100 mcg/ml injectable solution) 1 mL = 100 mcg Intramuscular Monthly - Every 30 Days hydroCHLOROthiazide (hydroCHLOROthiazide 25 mg oral tablet) 1 Tab = 25 mg By Mouth once a day insulin aspart (NovoLOG FlexPen 100 unit/ml subcutaneous solution) 32 Unit Subcutaneous 3 Times a day insulin glargine (Insulin Lantus) 64 Unit Subcutaneous Twice a day COMMENTS: Do NOT mix with any other insulin product lisinopril (lisinopril 40 mg oral tablet) 1 Tab = 40 mg By Mouth once a day Physical Examination Mouth/Airway: Dental (from Forms) No dental information charted . Mallampati: Class 2. Dental status: Teeth in good repair. Respiratory: Right lung: Clear to auscultation. Left lung: Clear to auscultation. Cardiovascular: Rhythm: Regular. Results Review Diagnostic Tests Electrocardiogram Normal sinus rhythm Echocardiogram EF 60% MR Assessment ASA Classification 4. Plan Anesthesia Discussion The patient was interviewed:: Yes. The patient was examined:: Yes. Informed Consent:: Obtained. The anesthetic plan, options, risks, and benefits were discussed:: With the patient. Anesthesia Preoperative Plan Proposed Anesthesia Type: General with Endotracheal Intubation. Monitoring/Anesthesia Considerations: Arterial Line, Central Line, [place]-Yajaira Catheter, Transesophageal echocardiography, One lung ventilation, Post-operative ventilation. GLUCOSE POCT Collected: 09/26/2018 Status: F Source: [facility] (UPLOADED) 5:59 AM [facility]ALTH SYSTEM REPOSITORY TYPE CODE TESTS RESULT OUT OF RANGE REFERENCE UNITS LAB 2340-8(LOIN 70-110 mg/dL C) Normal Glucose 105 POCT-LAB Result Comment: Treatment ranges and critical values established by Patient Care Services. All follow-up actions were taken by Patient Care Services. Performed By: #### 2430-8 #### [facility] POINT OF CARE GLUCOSE POCT Collected: 09/26/2018 Status: F Source: [facility] (UPLOADED) 4:21 AM [facility] SYSTEM REPOSITORY TYPE CODE TESTS RESULT OUT OF RANGE REFERENCE UNITS LAB 2340-8(LOIN 70-110 mg/dL C) Normal Glucose 88 POCT-LAB Result Comment: Treatment ranges and critical values established by Patient Care Services. All follow-up actions were taken by Patient Care Services. Performed By: #### 2430-8 #### [facility] POINT OF CARE CBC WITH DIFFERENTIAL Collected: 09/26/2018 Status: F Source: [facility] 3:52 AM [facility] REPOSITORY TYPE CODE TESTS RESULT OUT OF REFERENCE UNITS RANGE LAB 66937-1(LO 0.0-7.0 % INC) Normal Eosinophil 3.3 LAB 718-7(LOIN 13.5-17.5 gm/dL C) Low Hemoglobin 10.7 LAB 43555-5(LO 11.0-14.8 % INC) RDW Normal 14.1 LAB 63062-8(LO 0.0-12.0 % INC) Normal Monocyte 10.4 LAB 742-7(LOIN 0.00-0.90 thou/mcL C) Normal Monocyte 0.70 Absolute LAB 57258-3(LO 4.30-5.70 million/mcL INC) Low Red Blood Cell 3.81 Count LAB 48365-8(LO 22.0-44.0 % INC) Low Lymphocyte 18.1 LAB 731-0(LOIN 1.00-4.80 thou/mcL C) Normal Lymphocyte 1.20 Absolute LAB 03618-7(LO 32.0-36.0 gm/dL INC) MCHC Normal 33.6 LAB 00595-7(LO 4.6-10.2 thou/mcL INC) WBC Normal Count 6.8 LAB 34909-6(LO 40.0-70.0 % INC) Normal Neutrophil 67.5 LAB 38984-1(LO 27.0-34.0 Picograms INC) MCH Normal 28.0 LAB 751-8(LOIN 1.80-7.70 thou/mcL C) Normal Neutrophil 4.60 Absolute LAB 704-7(LOIN 0.00-0.20 thou/mcL C) Normal Basophil 0.10 Absolute LAB 07622-6(LO 80.0-97.0 FL INC) MCV Normal 83.4 LAB 77056-4(LO 6.2-12.1 FL INC) MPV Normal 9.1 LAB 93249-5(LO 0.0-2.0 % INC) Normal Basophil 0.7 LAB 711-2(LOIN 0.00-0.70 thou/mcL C) Normal Eosinophil 0.20 Absolute LAB 85576-0(LO 39.0-49.0 % INC) Low Hematocrit 31.7 LAB 74472-9(LO 142-424 thou/mcL INC) Normal Platelet Count 157 Performed By: #### 92704-6 #### [facility] [address], [place] PROTHROMBIN TIME Collected: 09/26/2018 Status: F Source: [place] 3:52 AM [facility] SYSTEM REPOSITORY TYPE CODE TESTS RESULT OUT OF RANGE REFERENCE UNITS LAB 60143-4(HANY NC) Normal INR 1.29 Result Comment: The recommended therapeutic INR range for most cardiac indications is 2.0-3.0. For high intensity therapy(ie.mechanical heart valves), the recommended range is 2.5-3.5. LAB 5902-2(LOINC) 9.3-12.4 Sec Prothrombin High Time (PT) 14.9 Performed By: #### 5902-2, 3173-2 #### [facility] [address], [place] PARTIAL THROMBOPLASTIN Collected: 09/26/2018 Status: F [facility] REPOS[facility] TYPE CODE TESTS RESULT OUT OF REFERENCE UNITS RANGE LAB 06244-8(LO 23.6-35.3 Sec INC) Partial Normal Thromboplastin 31.9 (aPTT) Performed By: #### 5902-2, 3173-2 #### [facility] [address] [place] [address] MAGNESIUM LEVEL Collected: 09/26/2018 Status: F Source: [facility] 3:52 AM [facility] REPOSITORY TYPE CODE TESTS RESULT OUT OF RANGE REFERENCE UNITS LAB 63892-8(LO 1.8-2.5 mg/dL INC) Normal Magnesium Level 2.1 Performed By: #### 15584-1, 01388-7 #### [facility] [address], [place] COMPREHENSIVE METABOLIC Collected: 09/26/2018 Status: F Source: [facility] PANEL 3:52 AM [facility]ALTH SYSTEM REPOSITORY TYPE CODE TESTS RESULT OUT OF RANGE REFERENCE UNITS LAB 44730-5(LO 8-20 mg/dL INC) High BUN 54 LAB 1920-8(HANY 15-41 Units/L NC) AST/SGOT Normal 29 LAB 06405-7(LO 6.0-18.0 mMol/L INC) Anion Gap Normal 8.0 LAB 2028-9(HANY 22-32 mMol/L NC) Carbon Normal Dioxide Level 25 LAB 6768-6(HANY 32-91 Units/L NC) Alkaline Normal Phosphatase 69 LAB 2951-2(HANY 136-145 mMol/L NC) Sodium Normal Level 138 LAB 2075-0(HANY 98-107 mMol/L NC) Chloride Normal Level 105 LAB 1742-6(HANY 14-63 Units/L NC) ALT/SGPT Normal 35 LAB 1751-7(HANY 3.5-4.8 gm/dL NC) Low Albumin Level 3.3 LAB 04330-0(LO 8.9-10.3 mg/dL INC) Low Calcium Total 8.5 LAB 79216-5(LO 70-110 mg/dL INC) Glucose Normal Level 75 LAB 2885-2(HANY 6.1-7.9 gm/dL NC) Protein Normal 6.8 LAB 2160-0(HANY 0.60-1.30 mg/dL NC) High Creatinine 1.46 LAB 1975-2(HANY 0.3-1.2 mg/dL NC) Bilirubin Normal Total 0.6 LAB 2823-3(HANY 3.6-5.1 mMol/L NC) Potassium Normal Level 3.7 Performed By: #### 57559-6, 48002-6 #### [facility] [address], [place] GLUCOSE POCT Collected: 09/26/2018 Status: F Source: [facility] (UPLOADED) 3:24 AM [facility] SYSTEM REPOSITORY TYPE CODE TESTS RESULT OUT OF REFERENCE UNITS RANGE LAB 2340-8(LOIN 70-110 mg/dL C) Low Glucose 69 POCT-LAB Result Comment: Treatment ranges and critical values established by Patient Care Services. All follow-up actions were taken by Patient Care Services. Performed By: #### 2430-8 #### [facility] POINT OF CARE GLUCOSE POCT Collected: 09/26/2018 Status: F Source: [facility] (UPLOADED) 2:28 AM [facility]ALTH SYSTEM REPOSITORY TYPE CODE TESTS RESULT OUT OF RANGE REFERENCE UNITS LAB 2340-8(LOIN 70-110 mg/dL C) Normal Glucose 78 POCT-LAB Result Comment: Treatment ranges and critical values established by Patient Care Services. All follow-up actions were taken by Patient Care Services. Performed By: #### 2430-8 #### [facility] POINT OF CARE GLUCOSE POCT Collected: 09/26/2018 Status: F Source: [facility] (UPLOADED) 12:12 AM [facility]ALTH SYSTEM REPOSITORY TYPE CODE TESTS RESULT OUT OF REFERENCE UNITS RANGE LAB 2340-8(LOIN 70-110 mg/dL C) High Glucose 122 POCT-LAB Result Comment: Treatment ranges and critical values established by Patient Care Services. All follow-up actions were taken by Patient Care Services. Performed By: #### 2430-8 #### [facility] POINT OF CARE OPERATIVE/PROCEDURE REPORT Observed: 09/26/2018 Status: F Source: [facility] 12:00 AM [facility] REPOSITORY DICTATED BY: MARIANO MORENO MD SERVICE DATE: 09/26/2018 PREOPERATIVE DIAGNOSES: Severe mitral regurgitation/congestive heart failure/renal insufficiency. POSTOPERATIVE DIAGNOSES: Severe mitral regurgitation/congestive heart failure/renal insufficiency. PROCEDURES PERFORMED: 1. Right anterior mini thoracotomy. 2. Mitral valve replacement with 27 mm Medtronic Weldon tissue valve. SURGEON: Mariano Moreno MD ASSISTANTS: 1. CRISTÓBAL Gutierrez 2. CRISTÓBAL Harden ANESTHESIOLOGIST: Zachary Espino MD ANESTHESIA TYPE: General. ESTIMATED BLOOD LOSS: 500 mL CARDIOPULMONARY BYPASS TIME: 137 minutes. AORTIC CROSSCLAMP TIME: 47 minutes. INDICATIONS: This is a 73-year-old male who was admitted with dyspnea on exertion and shortness of breath. The patient was found to have cardiac murmur and echocardiogram has demonstrated severe mitral regurgitatio n. The patient has undergone evaluation with heart catheterization, transesophageal echocardiogram, which has shown no significant new coronary artery disease. The patient has prior history of coronar y stenting and a chronically occluded right coronary artery. The patient has severe mitral regurgitation with a flail anterior leaflet. The patient has preserved ventricular function. The patient has a history of chronic renal insufficiency. The patient has been diuresed, had heart failure and she presents today for surgery of the mitral valve. PROCEDURE IN DETAIL: The patient was taken to the Operating Room and placed supine on the operating table. After general anesthesia was provided, appropriate lines and monitors were placed; the patient was prepped and drap ed in the standard sterile surgical fashion from the chin to the knees bilaterally. Right common femoral artery and vein were dissected out. The patient was heparinized and was cannulated for cardiopu lmonary bypass with venous cannula being placed in the right atrium under transesophageal echocardiogram guidance. The arterial cannula was advanced into the 3-port system. Guidewire was placed into the ascending aorta and the 3-port endo balloon was placed in the ascending aorta. Next, a mini right anterolateral thoracotomy was then performed with soft tissue retractor used to aid in exposure. The diaphragm retraction stitch was used for aid in exposure. Pericardium was opened and stay sutures were used to ai d in exposure. Cardiopulmonary bypass was initiated via the femoral artery and vein. The compression of the heart was adequate. Endo balloon was inflated and appropriate seal was not obtained. The b alloon was deflated. The blood was noted to aspirate from the balloon port. At this point, the balloon was removed and there was a fracture of the balloon. Next the ascending aorta was dissected out. Antegrade needle was placed. The aorta was crossclamped and cold blood cardioplegia was administered consisting approximately 1 L of [place] was administered. The heart was adequately arrested. Th e left atrium was entered parallel to the interatrial groove on the right. A left atrial lift retractor was then placed. The mitral valve was inspected and there was a flail anterior leaflet. Anterio r leaflet was excised. Circumferential pledgeted 2-0 Ethibond sutures were placed around the valve annulus. These were then brought through the 27 mm Medtronic Weldon sewing ring. The valve was seat ed and sutures were tied with Cor-Knot. Atriotomy was closed with running 3-0 Prolene suture. Left ventricular vent was left through the suture line. The patient was placed into Trendelenburg. Lungs were ventilated; heart was de-aired as aortic crossclamp was removed. Once the patient reached normothermia and adequate deairing had been noted on the transesophageal echocardiogram, the patient was ventilated, weaned from cardiopulmonary bypass without event. Heparin effect was reversed with protamine. The patient demonstrated coagulopathy and this was treated with empiric transfusion of FFP and platelets. After a period of observation, hemostasis appeared adequate. The pericardium was reapproximated. Two large derek drains were left in the pericardial space for postoperative drainage. One large Derek drain was left in the right pleural space for postoperative drainage. The patient was decannulated and groin vessels were repaired with 4-0 Prolene suture. Temporary ventricular pacing wi re was left for aid in postoperative management. Transesophageal echocardiogram demonstrated appropriate seating and function of the valve without evidence of significant perivalvular leak. The costal margin was reapproximated with heavy Vicryl suture. Fascia was closed with heavy Vicryl suture. Skin was closed with fine Vicryl subcuticular stitch. On-Q pain pump catheter was left in the intercos lou space for postoperative pain control. Groin was closed with heavy Vicryl suture at the fascia layer, fine Vicryl subcuticular stitches in skin. Wounds were washed and Dermabond as well as sterile dressings were applied. The patient is currently being transported to the Intensive Care Unit for continued care. CRISTÓBAL Harden and CRISTÓBAL Gutierrez assisted in all assisted aspects of the case including opening, closure, exposure, etc. LOVE PHELAN Birthdate: 1945 D/09/26/2018 13:58:52 T/09/26/2018 19:00:01 VOICE JOB ID: [id number] Jed [facility] thanks you for the opportunity to care for your patient. DID: [id number] GLUCOSE POCT Collected: 09/25/2018 Status: F Source: [facility] (UPLOADED) 10:21 PM HEALTH SYSTEM REPOSITORY TYPE CODE TESTS RESULT OUT OF REFERENCE UNITS RANGE LAB 2340-8(LOIN 70-110 mg/dL C) High Glucose 141 POCT-LAB Result Comment: Treatment ranges and critical values established by Patient Care Services. All follow-up actions were taken by Patient Care Services. Performed By: #### 2430-8 #### [facility] POINT OF CARE GLUCOSE POCT Collected: 09/25/2018 Status: F Source: [facility] (UPLOADED) 7:55 PM [facility]ALTH SYSTEM REPOSITORY TYPE CODE TESTS RESULT OUT OF REFERENCE UNITS RANGE LAB 2340-8(LOIN 70-110 mg/dL C) High Glucose 185 POCT-LAB Result Comment: Treatment ranges and critical values established by Patient Care Services. All follow-up actions were taken by Patient Care Services. Performed By: #### 2430-8 #### [facility] POINT OF CARE GLUCOSE POCT Collected: 09/25/2018 Status: F Source: [facility] (UPLOADED) 6:03 PM [facility]ALTH SYSTEM REPOSITORY TYPE CODE TESTS RESULT OUT OF REFERENCE UNITS RANGE LAB 2340-8(LOIN 70-110 mg/dL C) High Glucose 141 POCT-LAB Result Comment: Treatment ranges and critical values established by Patient Care Services. All follow-up actions were taken by Patient Care Services. Performed By: #### 2430-8 #### [facility] POINT OF CARE Observed: 09/25/2018 Status: F Source: [facility] BLOOD TYPE ABO AND 5:29 PM HEALTH SYSTEM RH(D) REPOSITORY BPOS Performed By: #### 882-1 #### [facility] [address], [place] Observed: 09/25/2018 Status: F Source: [facility] ANTIBODY SCREEN 5:29 PM HEALTH SYSTEM INTERPRETATION REPOSITORY NEGATIVE Performed By: #### 71226-8 #### [facility] [address], [place] GLUCOSE POCT Collected: 09/25/2018 Status: F Source: [facility] (UPLOADED) 3:56 PM [facility]ALTH SYSTEM REPOSITORY TYPE CODE TESTS RESULT OUT OF REFERENCE UNITS RANGE LAB 2340-8(LOIN 70-110 mg/dL C) High Glucose 184 POCT-LAB Result Comment: Treatment ranges and critical values established by Patient Care Services. All follow-up actions were taken by Patient Care Services. Performed By: #### 2430-8 #### [facility] POINT OF CARE PROGRESS NOTES Observed: 09/25/2018 Status: C Source: [facility] 3:41 PM [facility]ALTH SYSTEM REPOSITORY Patient: LOVE PHELAN MRN: [id number] Age: 73 years Sex: Male : 1945 Associated Diagnoses: None Author: Akira Oconnor Supervising Physician Comments Documentation By: Nurse Practitioner. Comments HPI: Mr. Aleman is a 73 year old male with past medical history significant for chronic ischemic heart disease s/p multivessel stenting in 2009, HTN, HLD, T2DM, CKD, and obesity who presented to [facility] on 09/21/18 with c/o shortness of breath. He was in [place] visiting family for the holidays when he noted right shoulder pain on 09/20. He states that he took Ibuprofen and this pain improv ed. Then he went to bed and had worsening exertional dyspnea and called EMS. His oxygen saturation was 72% on room air. He was placed on oxygen and his oxygen saturation improved to 92%. He was brought to the ED for further evaluation. On arrival, his BMP was notable for SCr 1.7, BNP 233 and CXR was concerning for pulmonary edema. He was given IV Lasix with improvement in symptoms. Cardiology was cons ulted and an echocardiogram was ordered. 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 Likely severe per dop pler assessment. It was also recommended to undergo cardiac catheterization due to his history of PCI. This was completed today as well and was found to have patent stents to LAD and LCx. RCA is occlude d and supplied by left to right collaterals which is known since 2009. CTS was asked to evaluate pt for mitral valve repair/replacement. Of note, pt lives in [place] and follows with his Tile Designer there regularly. He had a routine office visit in June where it was recommended to continue with medical management. He has had no complaints at baseline. PE General: Vital signs stable, no acute distress, calm, appropriate, cooperative. Respiratory: - Lungs clear with no wheezing, rales, or rhonchi heard bilaterally - Easy and unlabored respirations with no intercostal retractions or use of accessory muscles Cardiovascular: - RRR - (+) murmur heard - No LE edema present - Palpable dorsal pedis pulses bilaterally GI: Abdomen is soft, nontender MS: Grossly normal. Muscle strength and tone is equal/normal in all extremities; Neck full range of motion Integumentary: No rashes/lesions Neuro: Alert. Follows commands. Moves all extremitites. Psychiatric: Does not appear anxious or depressed LABS/Testing reviewed Assessment/Plan 1. Severe MR: -CLAIRE/cath completed. -Carotid duplex completed: right 50-69%, left 1-49% -SCr 1.79 this AM. CTA completed. -UA clean; Dental no need for teeth extractions. Dispo: Patient preoped OR tomorrow for MVR MVR tomorrow FFP (FRESH FROZEN Collected: 09/25/2018 Status: F Source: [employer] PLASMA) ORDER 3:39 PM [facility]ALTH SYSTEM REPOSITORY Order Comment: Please hold 2 units of FFP for OR on 09/26 TYPE CODE TESTS RESULT OUT OF RANGE REFERENCE UNITS LAB 1035-5(LOIN C) Normal Fresh NOTNEED Frozen Plasma: PLATELET PRODUCT Collected: 09/25/2018 Status: F Source: [employer] [facility] 3:39 PM [facility]ALTH SYSTEM REPOSITORY Order Comment: Please hold 1 unit of platelets for OR on 09/26 TYPE CODE TESTS RESULT OUT OF REFERENCE UNITS RANGE LAB 00339-2(LO INC) Platelet Normal Concentrate NOTNEED GLUCOSE POCT Collected: 09/25/2018 Status: F Source: [facility] (UPLOADED) 2:08 PM [facility]ALTH SYSTEM REPOSITORY TYPE CODE TESTS RESULT OUT OF REFERENCE UNITS RANGE LAB 2340-8(LOIN 70-110 mg/dL C) High Glucose 226 POCT-LAB Result Comment: Treatment ranges and critical values established by Patient Care Services. All follow-up actions were taken by Patient Care Services. Performed By: #### 2430-8 #### [facility] POINT OF CARE GLUCOSE POCT Collected: 09/25/2018 Status: F Source: [facility] (UPLOADED) 11:59 AM HEALTH SYSTEM REPOSITORY TYPE CODE TESTS RESULT OUT OF REFERENCE UNITS RANGE LAB 2340-8(LOIN 70-110 mg/dL C) High Glucose 201 POCT-LAB Result Comment: Treatment ranges and critical values established by Patient Care Services. All follow-up actions were taken by Patient Care Services. Performed By: #### 2430-8 #### [facility] POINT OF CARE PROGRESS NOTES Observed: 09/25/2018 Status: F Source: [facility] 11:07 AM [facility] REPOSITORY Patient: LOVE PHELAN MRN: [id number] Age: 73 years Sex: Male : 1945 Associated Diagnoses: None Author: Nael AMBRIZ , Georges Dumont Impression and Plan IMPRESSION: Chronic kidney disease stage III- UPCR 0.9g/g and ultrasound w/ kidneys 13cm bilat presumably with diabetic nephropathy. Hypertension. Type 2 diabetes mellitus. Coronary artery disease status post multivessel PCI in 2009 as above. Severe mitral regurgitation evaluated by CT surgery PLAN: -Creatinine minimally up after CT. Scheduled for surgery tomorrow. -started Imdur 30 for hypertensive control, but may transition back to lisinopril/HCTZ soon. Mehdi Nayak MD [place] [facility] Subjective Feeling OK today. No sob, Cp, abd pain. Health Status Allergies Allergic Reactions (Selected) Mild Doxycycline- Hives. Objective Last Charted Vital Signs Temperature: 98.2 (09/25 08:05) Pulse: 72 (09/25 08:05) Respiration: 16 (09/25 08:05) BP: 166/65 (09/25 08:05) Pulse Ox: 95 (09/25 08:05) Oxygen Delivery: Room air (09/25 08:19) Pain Score: 0 (09/25 08:36) EXAM: see vitals below General - no acute distress, comfortable Chest/Respiratory - Clear to auscultation. Cardiovascular - Normal rate, regular rhythm without murmurs, rubs or gallops. Abdomen/Gastrointestinal - Soft, nontender, nondistended, (+) bowel sounds. Musculoskeletal - No synovitis. No joint effusions or erythemia in knees, elbows, hands, wrists Extremities - No edema. Neuropsych - Grossly nonfocal, appropriate. Moving all 4 extremities and no decreased sensation to fine touch Results Review Labs - Last 36 hours (Max 2 / lab test) CHEMISTRY Sodium 137 (09/25 05:36) 136 (09/24 07:28) Potassium 3.8 (09/25 05:36) 4.3 (09/24 07:28) Chloride 104 (09/25 05:36) 101 (09/24 07:28) CO2 25 (09/25 05:36) 23 (09/24 07:28) Glucose 116 (09/25 05:36) 313 (09/24 07:28) Glucose POCT No result BUN 60 (09/25 05:36) 63 (09/24 07:28) Creatinine 1.79 (09/25 05:36) 1.53 (09/24 07:28) Calcium Total 8.5 (09/25 05:36) 8.9 (09/24 07:28) Magnesium 1.9 (09/25 05:36) HEMATOLOGY WBC 6.0 (09/25 05:36) 5.6 (09/24 07:) RBC 3.76 (09/25 05:36) 4.16 (09/24 07:) Hb 10.6 (09/25 05:36) 11.6 (09/24 07:) Hematocrit 31.3 (09/25 05:36) 34.8 (09/24 07:) Platelets 147 (09/25 05:36) 146 (09/24 07:) MCV 83.2 (09/25 05:36) 83.5 (09/24 07:) MCH 28.2 (09/25 05:36) 27.9 (09/24 07:) RDW 14.3 (09/25 05:36) 14.2 (09/24 07:) MCHC 33.9 (09/25 05:36) 33.5 (09/24 07:) Neutrophil Ab 3.90 (09/25 05:36) Monocyte Ab 0.60 (09/25 05:36) Eosinophil Ab 0.20 (09/25 05:36) Basophil Ab 0.10 (09/25 05:36) Lymphocyte Ab 1.20 (09/25 05:36) OTHER LABS Anion Gap 8.0 mMol/L (09/25 05:36) 12.0 mMol/L (09/24 07:) GFR Est. Non 38 mL/min (09/25 05:36) 45 mL/min (09/23 07:38) GFR Est. Berta 45 mL/min (09/25 05:36) 55 mL/min (09/23 07:38) Phosphorus Level 4.2 mg/dL (09/24 07:28) Albumin Level 3.8 gm/dL (09/24 07:28) B Type Natriuretic Peptid 140 Picogram/ml (09/23 07:38) Folic Acid Level 18.0 ng/mL (11/28 07:28) PTH Intact 54 Picogram/ml (09/24 07:28) Vitamin B12 Level 1399 Picogram/ml (09/24 07:28) Vitamin D 25-Hydroxy Leve 26.01 ng/mL (09/24 07:28) MPV 9.1 FL (09/25 05:36) 9.3 FL (09/24 07:28) Neutrophil 64.5 % (09/25 05:36) Lymphocyte 20.7 % (09/25 05:36) Monocyte 10.4 % (09/25 05:36) Eosinophil 3.5 % (09/25 05:36) Basophil 0.9 % (09/25 05:36) PROGRESS NOTES Observed: 09/25/2018 Status: F Source: [place] 10:10 AM [facility] REPOSITORY Patient: LOVE PHELAN MRN: [id number] Age: 73 years Sex: Male : 1945 Associated Diagnoses: None Author: Cristhian Hong DO Assessment Diagnosis/Impression/Plan: Mr Love Phelan is a 73-year-old male with past medical history to include CAD status post stents, hypertension, hyperlipidemia, insulin-dependent diabetes, newly diagnosed CKD stage III, who prese nts to [facility] 09/21/2018 for dyspnea Interval workup notable for NSTEMI with echo findings of severe mitral regurgitation #Acute hypoxemic respiratory failure-secondary to diastolic CHF with severe mitral regurgitation CHF treatment outlined, continue gentle diuresis as hemodynamics permit Plans for mitral valve replacement. Continue supplemental oxygen for goal saturation greater than 90%. #HFpEF (EF60%) echo 09/22/18, severe mitral regurgitation with flail portion anterior leaflet Judicious diuresis as hemodynamics permit, monitor I's and O's, volume status Plan CLAIRE 09/24/18 Appreciate Cardio and CTS - noted plans MVR Saturday09/26/18 -1.1L #CKD3 - 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 Monitor lytes, I/O. Given decompensated CHF secondary to severe mitral regurgitation, he underwent necessary CTA of the chest and abdomen and pelvis with contrast 09/24/18 Avoid other nephrotoxins as able Appreciate Nephro, monitoring closely, continue to hold Ying, noted Imdur, plan future HCTZ/LIS #Poorly controlled IDDM - agree with insulin gtt for now # CAD s/p stent - cont asa, statin, BB. Plavix on hold given plans MVR # DVT ppx - SCDs while in bed FULL CODE_ Plan MVR for 09/26 AM Expected date of discharge 09/27 because of severe mitral regurgitation precipitating respiratory failure, with planned disposition [facility] vs SNF Pending clinical trajectory and when consensus OK with Cardio/Nephro/CTS teams Code Status Full Resuscitation Comment: Provide all therapy to prevent/treat cardiac or respiratory arrest. Full Resuscitation Comment: Provide all therapy to prevent/treat cardiac or respiratory arrest. Chief Complaint _CHF exac Health Status Allergies Allergic Reactions (Selected) Mild Doxycycline- Hives. Medication List (Selected) Inpatient Medications Ordered AmLODIPine: 10 mg, PO, Daily Atropine 0.1 mg/mL Syringe 10 mL: 0.5 mg, IV Push, Q3min, PRN: See Comments CeFAZolin: 2 Gm, 40 mL/hr, IV, preop Chlorhexidine 0.12% Oral Rinse: 15 mL, Swish and Spit, Pre-Procedure Dextrose 50% Syringe*: 12.5 Gm, IV Push, PRN, PRN: See Comments Dextrose 50% Syringe*: 25 Gm, IV Push, PRN, PRN: See Comments Dulcolax*: 10 mg, Rectal, Daily, PRN: Constipation Heparin Calculations Ref Text (CO): 1 Each, Comm, Communication Heparin Low Titration BOLUS (std dose)*: 5,000 Unit, IV Push, PRN, PRN: See Comments Insulin Human Regular Additive* 100 Unit [2 Unit/hr] + Sodium Chloride 0.9% 100 mL: 2 mL/hr, IV, Stop: 10/24/18 11:06:00 EST Insulin Infusion Titration Parameters Ref Text (CO): 1 Each, Comm, Communication Lopressor: 12.5 mg, PO, Pre-Procedure Nitrostat: 0.4 mg, Subl, Q5min, PRN: See Comments Pharmacy Communication Order*: Hold all oral hypoglycemia agents the da, Comm, Communication Tylenol*: 650 mg, PO, Q4h, PRN: Pain - Mild Vitamin D3: 5,000 Unit, PO, Daily aspirin: 81 mg, PO, Daily atorvastatin: 20 mg, PO, Daily carvedilol: 12.5 mg, PO, w/bkfst+din cyanocobalamin: 100 mcg, IM, Month ([id number]) isosorbide mononitrate: 30 mg, PO, Daily oxygen: 1 Each, Inhalation, Daily Documented Medications Documented Insulin Lantus: 64 Unit, Subcut, BID, Each, 0 Refill(s) NovoLOG FlexPen 100 unit/ml subcutaneous solution: 32 Unit, Subcut, TID, Each, 0 Refill(s) Plavix 75 mg oral tablet: 1 Tab, PO, Daily, Each, 0 Refill(s) Vitamin D3 5000 intl units oral tablet: 1 Tab, PO, Daily, Each, 0 Refill(s) amLODipine 10 mg oral tablet: 1 Tab, PO, Daily, Each, 0 Refill(s) aspirin 81 mg oral tablet: 1 Tab, PO, Daily, Each, 0 Refill(s) atenolol 50 mg oral tablet: 1 Tab, PO, Daily, Each, 0 Refill(s) atorvastatin 20 mg oral tablet: 1 Tab, PO, Daily, Each, 0 Refill(s) cyanocobalamin 100 mcg/ml injectable solution: 1 mL, IM, Month ([id number]), Each, 0 Refill(s) glipiZIDE 10 mg oral tablet, extended release: 1 Tab, PO, BID, Each, 0 Refill(s) hydroCHLOROthiazide 25 mg oral tablet: 1 Tab, PO, Daily, Each, 0 Refill(s) lisinopril 40 mg oral tablet: 1 Tab, PO, Daily, Each, 0 Refill(s) metFORMIN 500 mg oral tablet, extended release: 4 Tab, PO, Daily, Each, 0 Refill(s) Subjective _Pt s/e, earlier this AM. Very pleasant and not affirming any active cp to me. No f/c, no dyspnea, nvd. Objective Last Charted Vital Signs Temperature: 97.5 (09/25 15:23) Pulse: 70 (09/25 15:23) Respiration: 16 (09/25 15:23) BP: 153/79 (09/25 15:23) Pulse Ox: 98 (09/25 15:23) Oxygen Delivery: Room air (09/25 08:19) Pain Score: 0 (09/25 08:36) Height: 108.34 cm /42.65 in (Type not Indicated) (09/21/2018 18:08:00) Weight: 101.6 kg/ 223 lbs 15.8 oz (Type not Indicated) (09/25/2018 06:33:00) Body Surface Area: 1.75 m2 Body Mass Index: 86.56 Intake and Output (Previous 24Hrs) I and O Summary Begin date: 09/24 18:19 End date: 09/25 18:19 24 Hour Intake: 318.00 Output: 800.00 Balance: -482.00 Last BM: No BM Charted Physical Exam: General: AO, appears stated age HEENT: ATNC, sclerae nonicteric, mmm Neck: Soft, trachea midline Heart: S1 S2, holo m, no JVD Lungs: coarse bs, better air mvt, no crackles, no acc muscle use. Dim bases. Abdomen/GI: soft, nontender, nondistended. Extremity/Musculoskeletal: Normal muscle tone, trace edema Neurologic: No gross focal weakness. No facial droop appreciated. Skin: Visible skin warm, dry, intact Results Review Labs - Last 36 hours (Max 2 / lab test) CHEMISTRY Sodium 137 (09/25 05:36) 136 (09/24 07:28) Potassium 3.8 (09/25 05:36) 4.3 (09/24 07:28) Chloride 104 (09/25 05:36) 101 (09/24 07:28) CO2 25 (09/25 05:36) 23 (09/24 07:28) Glucose 116 (09/25 05:36) 313 (09/24 07:28) Glucose POCT No result BUN 60 (09/25 05:36) 63 (09/24 07:28) Creatinine 1.79 (09/25 05:36) 1.53 (09/24 07:28) Calcium Total 8.5 (09/25 05:36) 8.9 (09/24 07:28) Magnesium 1.9 (09/25 05:36) HEMATOLOGY WBC 6.0 (09/25 05:36) 5.6 (09/24 07:28) RBC 3.76 (09/25 05:36) 4.16 (09/24 07:28) Hb 10.6 (09/25 05:36) 11.6 (09/24 07:28) Hematocrit 31.3 (09/25 05:36) 34.8 (09/24 07:28) Platelets 147 (09/25 05:36) 146 (09/24 07:28) MCV 83.2 (09/25 05:36) 83.5 (09/24 07:28) MCH 28.2 (09/25 05:36) 27.9 (09/24 07:) RDW 14.3 (09/25 05:36) 14.2 (09/24 07:28) MCHC 33.9 (09/25 05:36) 33.5 (09/24 07:28) Neutrophil Ab 3.90 (09/25 05:36) Monocyte Ab 0.60 (09/25 05:36) Eosinophil Ab 0.20 (09/25 05:36) Basophil Ab 0.10 (09/25 05:36) Lymphocyte Ab 1.20 (09/25 05:36) OTHER LABS Anion Gap 8.0 mMol/L (09/25 05:36) 12.0 mMol/L (09/24 07:28) GFR Est. Non 38 mL/min (09/25 05:36) 45 mL/min (09/23 07:38) GFR Est. Berta 45 mL/min (09/25 05:36) 55 mL/min (09/23 07:38) Phosphorus Level 4.2 mg/dL (09/24 07:28) Albumin Level 3.8 gm/dL (09/24 07:28) B Type Natriuretic Peptid 140 Picogram/ml (09/23 07:38) Folic Acid Level 18.0 ng/mL (09/24 07:28) PTH Intact 54 Picogram/ml (09/24 07:28) Vitamin B12 Level 1399 Picogram/ml (09/24 07:28) Vitamin D 25-Hydroxy Leve 26.01 ng/mL (09/24 07:28) MPV 9.1 FL (09/25 05:36) 9.3 FL (09/24 07:28) Neutrophil 64.5 % (09/25 05:36) Lymphocyte 20.7 % (09/25 05:36) Monocyte 10.4 % (09/25 05:36) Eosinophil 3.5 % (09/25 05:36) Basophil 0.9 % (09/25 05:36) Fresh Frozen Plasma: NOTNEED (09/25 15:39) Platelet Concentrate NOTNEED (09/25 15:39) Blood 09/25/18 18:03:00 Glucose POCT-LA: 141 Comment: 09/22/18 12:22:00 Activated Clott: 188 Comment: 09/22/18 06:05:00 Hematocrit POCT: 36 Hemoglobin POCT: 11.7 Sodium POCT: 136 Potassium POCT: 4.5 Calcium Ionized: 1.16 Lactate POCT: 1.5 Microbiology No results found General Results Lab/diagnostic studies personally reviewed. Supervising Physician Comments . Diagnosis Documentation . GLUCOSE POCT Collected: 09/25/2018 Status: F Source: [place] (UPLOADED) 10:01 AM [facility]ALTH SYSTEM REPOSITORY TYPE CODE TESTS RESULT OUT OF REFERENCE UNITS RANGE LAB 2340-8(LOIN 70-110 mg/dL C) High Glucose 162 POCT-LAB Result Comment: Treatment ranges and critical values established by Patient Care Services. All follow-up actions were taken by Patient Care Services. Performed By: #### [id number] #### [facility] POINT OF CARE GLUCOSE POCT Collected: 09/25/2018 Status: F Source: [place] (UPLOADED) 8:00 AM [facility]ALTH SYSTEM REPOSITORY TYPE CODE TESTS RESULT OUT OF RANGE REFERENCE UNITS LAB 2340-8(LOIN 70-110 mg/dL C) Normal Glucose 100 POCT-LAB Result Comment: Treatment ranges and critical values established by Patient Care Services. All follow-up actions were taken by Patient Care Services. Performed By: #### 2430-8 #### [facility] POINT [facility] CARE PROGRESS NOTES Observed: 09/25/2018 Status: C Source: [place] [place] 7:48 AM [facility] REPOSITORY Patient: LOVE PHELAN MRN: [id number] Age: 73 years Sex: Male : 1945 Associated Diagnoses: None Author: Pedro Ibarra [facility] Cardiology Progress Note Subjective: Patient feeling fine. No complaints of chest pain or shortness breath. CLAIRE yesterday revealed severe MR and his scheduled for surgery on Saturday. Objective: Physical Exam: General: Alert and oriented x 3 neck: No JVD at 90 , trachea midline Lungs: Clear bilaterally, respirations easy and unlabored Cardio: RRR ns1s2, II/ HSM LLSB Abdomen: Obese, appears nondistended Extremities: no edema in LE b/l, no clubbing or cyanosis Neuro: CHASE ??4, no focal deficit Skin: Dry with no apparent rashes Intake/output: -1108, Net -4128 BP 148/70, O2 sat normal on room air BUN 60, creatinine 1.79 following CTA chest/abdomen/pelvis yesterday. Creatinine 1.53 yesterday. CXR-no acute abnormality per RAD CTA chest-no aortic aneurysm or dissection per RAD Data echo 09/22/2018: Normal LV size and function, EF 60-65%. Normal RV size and function. Moderate left atrial enlargement. 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 This is likely severe based on doppler assessment. Consider CLAIRE for further assessment of the mitral valve. No other significant valvular or pericardial abnormalities noted. Procedure Summary - Patent 2010 stents in the left anterior descending artery and left circumflex artery. - The proximal RCA is occluded and is supplied by left to right collaterals (known since February 2010). - Markedly elevated LVEDP at 30 mmHg. - Markedly elevated PCWP at 25 mmHg. - The right atrial, right ventricular and pulmonary arterial pressures are at the upper limit of normal. - Normal cardiac output. Recommendations - Continue treatment for decompensated heart failure. - Further recommendations regarding mitral valve repair/replacement +/- RCA revascularization per cardiac surgery team. - Lifestyle modifications and optimal medical therapy for CAD secondary prevention. CLAIRE 09/24/18: LVEF 60-65% Normal RV structure and function Moderate left atrial enlargement Small PFO with mlie-ic-upkxm shunt. No right to left shunting demonstrated per bubble study Mild diffuse mitral valve leaflet thickening with flail anterior leaflet at A3 segmented Severe MR with ER0 0.24 cm?? No mitral stenosis mean gradient 2 mmHg. Stress test 2015: No ischemia per EMR. Cardiac cath 2009: LAD 85% followed by 80% stenosis. LCx 90%. RCA 100%. Per EMR, all vessels intervened upon with PCI and stenting (details unknown). 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 In setting of acute CHF, renal insufficiency of unknown chronicity, and underlying CAD. -Chronic ischemic heart disease; s/p NH and multivessel stenting 2009. He had negative stress test 2014. -Carotid artery disease -HTN, uncontrolled. Pt reports difficult to control BP at baseline requiring ongoing up-titration of regimen. At home may trend 130-150s mmHg systolic. -HLD -DM2 -CKD stage III: Nephrology following. -Obesity PLAN: -Hold plavix -Hold lisinopril/HCTZ. Creatinine up following CTA yesterday -Continue ASA, statin -Continue amlodipine, carvedilol, Imdur -Plan is for mitral valve surgery tomorrow/Saturday Staff: Patient seen and examined individually. Chart, laboratory data and above note for CRISTÓBAL Roy reviewed and confirmed. Plan for mitral valve surgery to be done tomorrow. No need for CABG. Significant increase in creatinine. Agree with holding nephrotoxic agents. Will follow. Akira Bhatti MD 09/25/2018 10:54 Vital Signs (Past 36 Hours) Last Charted Minimum Maximum Temperature 98.5 (09/25 06:26) 97.1 (09/24 15:23) 98.6 (09/24 23:31) Pulse 67 (09/25 06:26) 66 (09/24 20:43) 82 (09/24 08:05) Resp 16 (09/25 06:26) 16 (09/25 06:26) 17 (09/24 08:05) Pulse Ox 95 (09/25 06:26) 92 (09/24 23:31) 97 (09/23 20:01) Pain Score 0 (09/25 06:26) 0 (09/25 06:26) 0 (09/25 06:) BP 148/70 (09/25 06:26) Minimum Maximum Systolic BP 119/51 (09/24 23:31) 177/76 (09/24 05:17) Diastolic BP 119/51 (09/24 23:31) 173/85 (09/24 09:06) . I and O Summary Begin date: 09/24 07:48 End date: 09/25 07:48 24 Hour Intake: 792.00 Output: 2300.00 Balance: -1508.00 Last BM: No BM Charted. Labs - Last 36 hours (Max 2 / lab test) CHEMISTRY Sodium 137 (09/25 05:36) 136 (09/24 07:28) Potassium 3.8 (09/25 05:36) 4.3 (09/24 07:) Chloride 104 (09/25 05:36) 101 (09/24 07:28) CO2 25 (09/25 05:36) 23 (09/24 07:28) Glucose 116 (09/25 05:36) 313 (09/24 07:28) Glucose POCT No result BUN 60 (09/25 05:36) 63 (09/24 07:28) Creatinine 1.79 (09/25 05:36) 1.53 (09/24 07:28) Calcium Total 8.5 (09/25 05:36) 8.9 (09/24 07:28) Magnesium 1.9 (09/25 05:36) HEMATOLOGY WBC 6.0 (09/25 05:36) 5.6 (09/24 07:28) RBC 3.76 (09/25 05:36) 4.16 (09/24 07:) Hb 10.6 (09/25 05:36) 11.6 (09/24 07:28) Hematocrit 31.3 (09/25 05:36) 34.8 (09/24 07:28) Platelets 147 (09/25 05:36) 146 (09/24 07:28) MCV 83.2 (09/25 05:36) 83.5 (09/24 07:28) MCH 28.2 (09/25 05:36) 27.9 (09/24 07:) RDW 14.3 (09/25 05:36) 14.2 (09/24 07:28) MCHC 33.9 (09/25 05:36) 33.5 (09/24 07:28) Neutrophil Ab 3.90 (09/25 05:36) Monocyte Ab 0.60 (09/25 05:36) Eosinophil Ab 0.20 (09/25 05:36) Basophil Ab 0.10 (09/25 05:36) Lymphocyte Ab 1.20 (09/25 05:36) CHOLESTEROLS Lipid Profile - Cholesterol 125 mg/dL (09/22 05:46) Lipid Profile - Triglyceride 219 mg/dL (09/22 05:46) HDL Cholesterol 27 mg/dL (09/22 05:46) LDL Cholesterol 54 mg/dL (09/22 05:46) VLDL 44 mg/dL (09/22 05:46) OTHER LABS Anion Gap 8.0 mMol/L (09/25 05:36) 12.0 mMol/L (09/24 07:28) GFR Est. Non 38 mL/min (09/25 05:36) 45 mL/min (09/23 07:38) GFR Est. Berta 45 mL/min (09/25 05:36) 55 mL/min (09/23 07:38) Phosphorus Level 4.2 mg/dL (09/24 07:) Albumin Level 3.8 gm/dL (09/24 07:) B Type Natriuretic Peptid 140 Picogram/ml (09/23 07:38) Folic Acid Level 18.0 ng/mL (09/24 07:28) Hemoglobin A1c 9.0 % tl hgb (09/22 05:46) PTH Intact 54 Picogram/ml (09/24 07:28) Vitamin B12 Level 1399 Picogram/ml (09/24 07:28) Vitamin D 25-Hydroxy Leve 26.01 ng/mL (09/24 07:28) MPV 9.1 FL (09/25 05:36) 9.3 FL (09/24 07:) Neutrophil 64.5 % (09/25 05:36) Lymphocyte 20.7 % (09/25 05:36) Monocyte 10.4 % (09/25 05:36) Eosinophil 3.5 % (09/25 05:36) Basophil 0.9 % (09/25 05:36) . Inpatient Medications: Isosorbide Mononitrate SR 30 mg Tab (Imdur GEq) 30 mg = 1 Tab, PO, Tab ER, Daily,, x 30 Day(s), 09/24/18 15:00:00 EST , Comment: Do Not Chew Or Crush Last Dose: 09/24/18 16:44:00 Insulin Infusion Titration Parameters Ref Text (CO) 1 Each, Comm, Communication, x 30 Day(s), 09/24/18 11:07:00 EST Last Dose: Not Given Heparin Calculations Ref Text (CO) 1 Each, Comm, Communication, 09/21/18 9:28:00 EST Last Dose: Not Given AmLODIPine 10 mg Tab (Norvasc GEq) 10 mg = 1 Tab, PO, Tab, Daily,, x 30 Day(s), 09/21/18 5:49:00 EST Last Dose: 09/24/18 09:06:00 Aspirin 81 mg Tab Chew 81 mg = 1 Tab, PO, Tab Chew, Daily,, x 30 Day(s), 09/21/18 5:49:00 EST Last Dose: 09/24/18 09:06:00 Atorvastatin 20 mg Tab (Lipitor GEq) 20 mg = 1 Tab, PO, Tab, Daily,, x 30 Day(s), 09/21/18 5:49:00 EST Last Dose: 09/24/18 14:48:00 Cholecalciferol 5000 Unit Cap (Vitamin D-3 GEq) 5,000 Unit = 1 Cap, PO, Cap, Daily,, x 30 Day(s), 09/21/18 5:49:00 EST Last Dose: 09/24/18 14:48:00 Carvedilol 12.5 mg Tab (Coreg GEq) 12.5 mg = 1 Tab, PO, Tab, w/bkfst+din,, x 30 Day(s), 09/21/18 7:05:00 EST , Comment: Give with food. Measure BP and HR prior to each dose. Hold if SBP less than 90 mmHg or HR less than Last Dose: 09/24/18 16:44:00 Cyanocobalamin 1000 mcg/mL Vial 1 mL (Vitamin B-12) 100 mcg = 0.1 mL, IM, Inject, Month ([id number]),, x 30 Day(s), 09/21/18 5:49:00 EST Last Dose: Not Given oxygen Nasal Cannula, FIO2/LPM: 2-3, Target O2 Sat: Greater Than 90% Last Dose: Not Given Nitroglycerin Subl Tab 0.4 mg #25 (Nitrostat GEq) 0.4 mg = 1 Tab, Subl, Tab Subl, Q5min, PRN, See Comments, x 30 Day(s), 09/22/18 5:25:00 EST Last Dose: Not Given Acetaminophen 325 mg Tab (Tylenol GEq) 650 mg = 2 Tab, PO, Tab, Q4h, PRN, Pain - Mild, x 30 Day(s), 09/21/18 5:47:00 EST Last Dose: Not Given Bisacodyl 10 mg Suppos (Dulcolax GEq) 10 mg = 1 Suppos, Rectal, Suppos, Daily, PRN, Constipation, x 30 Day(s), 09/21/18 5:47:00 EST Last Dose: Not Given Current IV Orders: Dextrose 50% Syringe 25 Gm/50 mL 12.5 Gm = 25 mL, IV Push, Inject, PRN, PRN, See Comments, x 30 Day(s), 09/24/18 11:07:00 EST Last Dose: Not Given Dextrose 50% Syringe 25 Gm/50 mL 25 Gm = 50 mL, IV Push, Inject, PRN, PRN, See Comments, x 30 Day(s), 09/24/18 11:07:00 EST Last Dose: Not Given Atropine 1 mg/mL Vial 1 mL 0.5 mg = 0.5 mL, IV Push, Inject, Q3min, PRN, See Comments, x 6 Time(s)/Dose(s), 09/22/18 11:51:00 EST Last Dose: Not Given Heparin 1,000 Units/mL Vial 10 mL (NT) 5,000 Unit = 5 mL, IV Push, Inject, PRN, PRN, See Comments, x 30 Day(s), 09/21/18 9:28:00 EST , Comment: For PTT result less than 35 and increase drip by 4 Unit/kg/hr. Maximum Bolus 5, Last Dose: Not Given Insulin Human Regular 100 Unit [2 Unit/hr] + Sodium Chloride 0.9% 100 mL 100 ml, 2 mL/hr, IV, x 30 Day(s), 100 mL, 09/24/18 11:07:00 EST, 102.4 kg Last Dose: 09/25/18 04:55:00 GLUCOSE POCT Collected: 09/25/2018 Status: F Source: [facility] (UPLOADED) 6:23 AM [facility]ALTH SYSTEM REPOSITORY TYPE CODE TESTS RESULT OUT OF RANGE REFERENCE UNITS LAB 2340-8(LOIN 70-110 mg/dL C) Normal Glucose 108 POCT-LAB Result Comment: Treatment ranges and critical values established by Patient Care Services. All follow-up actions were taken by Patient Care Services. Performed By: #### 2430-8 #### [facility] POINT OF CARE XR CHEST 1 VIEW Observed: 09/25/2018 Status: F Source: [facility] [place] 5:39 AM HEALTH SYSTEM REPOSITORY EXAMINATION TYPE: AP PORTABLE CHEST X-RAY DATE OF EXAM : 09/25/2018 5:39 AM HISTORY: Pleural Effusion, congestive heart failure COMPARISON: Chest x-ray, CT 09/24/2018 FINDINGS: The cardiomediastinal silhouette is stable. No acute lung infiltrate or pulmonary vascular congestion is identified. No evidence for pleural effusion or pneumothorax. IMPRESSION: No acute cardiopulmonary disease. Jed Velarde thanks you for the opportunity to care for your patient. Workstation ID: [id number] FINAL REPORT Dictated By: Mando Mercado MD 09/25/2018 07:10 Assigned Physician: Mando Mercado MD Reviewed and Electronically Signed By: Mando Mercado MD 09/25/2018 07:12 Transcribed by: CATERINA 09/25/2018 07:10 Technologist: CHINYERE SCHUMACHER CBC WITH DIFFERENTIAL Collected: 09/25/2018 Status: F Source: [facility] [place] 5:36 AM HEALTH SYSTEM REPOSITORY TYPE CODE TESTS RESULT OUT OF REFERENCE UNITS RANGE LAB 69563-6(LO 80.0-97.0 FL INC) MCV Normal 83.2 LAB 22273-2(LO 6.2-12.1 FL INC) MPV Normal 9.1 LAB 65152-8(LO 39.0-49.0 % INC) Low Hematocrit 31.3 LAB 711-2(LOIN 0.00-0.70 thou/mcL C) Normal Eosinophil 0.20 Absolute LAB 96005-8(LO 142-424 thou/mcL INC) Normal Platelet Count 147 LAB 71896-0(LO 0.0-12.0 % INC) Normal Monocyte 10.4 LAB 04425-1(LO 11.0-14.8 % INC) RDW Normal 14.3 LAB 718-7(LOIN 13.5-17.5 gm/dL C) Low Hemoglobin 10.6 LAB 50383-6(LO 40.0-70.0 % INC) Normal Neutrophil 64.5 LAB 82638-0(LO 0.0-2.0 % INC) Normal Basophil 0.9 LAB 731-0(LOIN 1.00-4.80 thou/mcL C) Normal Lymphocyte 1.20 Absolute LAB 48310-2(LO 32.0-36.0 gm/dL INC) MCHC Normal 33.9 LAB 01253-7(LO 4.30-5.70 million/mcL INC) Low Red Blood Cell 3.76 Count LAB 742-7(LOIN 0.00-0.90 thou/mcL C) Normal Monocyte 0.60 Absolute LAB 751-8(LOIN 1.80-7.70 thou/mcL C) Normal Neutrophil 3.90 Absolute LAB 04995-4(LO 27.0-34.0 Picograms INC) MCH Normal 28.2 LAB 92271-7(LO 4.6-10.2 thou/mcL INC) WBC Normal Count 6.0 LAB 704-7(LOIN 0.00-0.20 thou/mcL C) Normal Basophil 0.10 Absolute LAB 94659-3(LO 22.0-44.0 % INC) Low Lymphocyte 20.7 LAB 44889-4(LO 0.0-7.0 % INC) Normal Eosinophil 3.5 Performed By: #### 98436-2 #### [facility] [address], [place] GFRAA Collected: 09/25/2018 Status: F Source: [place] 5:36 AM [facility] REPOSITORY TYPE CODE TESTS RESULT OUT OF RANGE REFERENCE UNITS LAB 40633-0(LO mL/min INC) GFR Normal Estimated 45 Result Comment: The MDRD equation has not been validated for those over 70 years, women, patients with serious co-morbid conditions, or with extremes of body size, muscle mass of nutritional status. Performed By: #### 23408-9, [id number], 06602-7, 24804-1 #### [facility] [address], [place] GFRBB Collected: 09/25/2018 Status: F Source: [place] 5:[facility] REPOSITORY TYPE CODE TESTS RESULT OUT OF RANGE REFERENCE UNITS LAB 36459-6(LO mL/min INC) GFR Normal Estimated Non 38 Performed By: #### 44473-8, 32445-9n8, 71292-9, 86934-5 #### [facility] [address], [place] MAGNESIUM LEVEL Collected: 09/25/2018 Status: F Source: [facility] 5:36 AM [facility] REPOSITORY TYPE CODE TESTS RESULT OUT OF RANGE REFERENCE UNITS LAB 47065-4(LO 1.8-2.5 mg/dL INC) Normal Magnesium Level 1.9 Performed By: #### 92394-0, 30868-6y7, 81004-6, 73541-4 #### [facility] [address], [place] BASIC METABOLIC PANEL Collected: 09/25/2018 Status: F Source: [facility] 5:36 AM [facility] REPOSITORY TYPE CODE TESTS RESULT OUT OF RANGE REFERENCE UNITS LAB 2160-0(HANY 0.60-1.30 mg/dL NC) High Creatinine 1.79 LAB 2823-3(HANY 3.6-5.1 mMol/L NC) Normal Potassium Level 3.8 LAB 94205-1(LO 70-110 mg/dL INC) High Glucose Level 116 LAB 38204-7(LO 6.0-18.0 mMol/L INC) Anion Normal Gap 8.0 LAB 58444-8(LO 8.9-10.3 mg/dL INC) Low Calcium Total 8.5 LAB 30580-3(LO 8-20 mg/dL INC) High BUN 60 LAB 2951-2(HANY 136-145 mMol/L NC) Sodium Normal Level 137 LAB 2028-9(HANY 22-32 mMol/L NC) Carbon Normal Dioxide Level 25 LAB 2075-0(HANY 98-107 mMol/L NC) Chloride Normal Level 104 Performed By: #### 20457-2, 86390-3c8, 01737-1, 89980-1 #### [facility] [address], [place] GLUCOSE POCT Collected: 09/25/2018 Status: F Source: [facility] (UPLOADED) 4:48 AM [facility]ALTH SYSTEM REPOSITORY TYPE CODE TESTS RESULT OUT OF RANGE REFERENCE UNITS LAB 2340-8(LOIN 70-110 mg/dL C) Normal Glucose 82 POCT-LAB Result Comment: Treatment ranges and critical values established by Patient Care Services. All follow-up actions were taken by Patient Care Services. Performed By: #### 2430-8 #### [facility] GLUCOSE POCT Collected: 09/25/2018 Status: F Source: [facility] (UPLOADED) 2:40 AM [facility]ALTH SYSTEM REPOSITORY TYPE CODE TESTS RESULT OUT OF REFERENCE UNITS RANGE LAB 2340-8(LOIN 70-110 mg/dL C) High Glucose 112 POCT-LAB Result Comment: Treatment ranges and critical values established by Patient Care Services. All follow-up actions were taken by Patient Care Services. Performed By: #### 2430-8 #### [facility] GLUCOSE POCT Collected: 09/25/2018 Status: F Source: [facility] (UPLOADED) 1:46 AM [facility]ALTH SYSTEM REPOSITORY TYPE CODE TESTS RESULT OUT OF RANGE REFERENCE UNITS LAB 2340-8(LOIN 70-110 mg/dL C) Normal Glucose 94 POCT-LAB Result Comment: Treatment ranges and critical values established by Patient Care Services. All follow-up actions were taken by Patient Care Services. Performed By: #### 2430-8 #### [facility] GLUCOSE POCT Collected: 09/25/2018 Status: F Source: [facility] (UPLOADED) 12:30 AM [facility]ALTH SYSTEM REPOSITORY TYPE CODE TESTS RESULT OUT OF RANGE REFERENCE UNITS LAB 2340-8(LOIN 70-110 mg/dL C) Normal Glucose 108 POCT-LAB Result Comment: Treatment ranges and critical values established by Patient Care Services. All follow-up actions were taken by Patient Care Services. Performed By: #### 2430-8 #### [facility] GLUCOSE POCT Collected: 09/24/2018 Status: F Source: [facility] (UPLOADED) 11:28 PM [facility]ALTH SYSTEM REPOSITORY TYPE CODE TESTS RESULT OUT OF REFERENCE UNITS RANGE LAB 2340-8(LOIN 70-110 mg/dL C) High Glucose 132 POCT-LAB Result Comment: Treatment ranges and critical values established by Patient Care Services. All follow-up actions were taken by Patient Care Services. Performed By: #### 2430-8 #### [facility] GLUCOSE POCT Collected: 09/24/2018 Status: F Source: [facility] (UPLOADED) 9:30 PM [facility]ALTH SYSTEM REPOSITORY TYPE CODE TESTS RESULT OUT OF REFERENCE UNITS RANGE LAB 2340-8(LOIN 70-110 mg/dL C) High Glucose 186 POCT-LAB Result Comment: Treatment ranges and critical values established by Patient Care Services. All follow-up actions were taken by Patient Care Services. Performed By: #### 2430-8 #### [facility] GLUCOSE POCT Collected: 09/24/2018 Status: F Source: [facility] (UPLOADED) 8:39 PM [facility]ALTH SYSTEM REPOSITORY TYPE CODE TESTS RESULT OUT OF REFERENCE UNITS RANGE LAB 2340-8(LOIN 70-110 mg/dL C) High Glucose 239 POCT-LAB Result Comment: Treatment ranges and critical values established by Patient Care Services. All follow-up actions were taken by Patient Care Services. Performed By: #### 2430-8 #### [facility] GLUCOSE POCT Collected: 09/24/2018 Status: F Source: [facility] (UPLOADED) 7:35 PM [facility]ALTH SYSTEM REPOSITORY TYPE CODE TESTS RESULT OUT OF REFERENCE UNITS RANGE LAB 2340-8(LOIN 70-110 mg/dL C) High Glucose 272 POCT-LAB Result Comment: Treatment ranges and critical values established by Patient Care Services. All follow-up actions were taken by Patient Care Services. Performed By: #### 2430-8 #### [facility] GLUCOSE POCT Collected: 09/24/2018 Status: F Source: [facility] (UPLOADED) 6:26 PM [facility]ALTH SYSTEM REPOSITORY TYPE CODE TESTS RESULT OUT OF REFERENCE UNITS RANGE LAB 2340-8(LOIN 70-110 mg/dL C) High Glucose 240 POCT-LAB Result Comment: Treatment ranges and critical values established by Patient Care Services. All follow-up actions were taken by Patient Care Services. Performed By: #### 2430-8 #### [facility] GLUCOSE POCT Collected: 09/24/2018 Status: F Source: [facility] (UPLOADED) 5:03 PM [facility]ALTH SYSTEM REPOSITORY TYPE CODE TESTS RESULT OUT OF REFERENCE UNITS RANGE LAB 2340-8(LOIN 70-110 mg/dL C) High Glucose 324 POCT-LAB Result Comment: Treatment ranges and critical values established by Patient Care Services. All follow-up actions were taken by Patient Care Services. Performed By: #### 2430-8 #### [facility] GLUCOSE POCT Collected: 09/24/2018 Status: F Source: [facility] (UPLOADED) 3:20 PM [facility]ALTH SYSTEM REPOSITORY TYPE CODE TESTS RESULT OUT OF REFERENCE UNITS RANGE LAB 2340-8(LOIN 70-110 mg/dL C) High Glucose 440 POCT-LAB Result Comment: Treatment ranges and critical values established by Patient Care Services. All follow-up actions were taken by Patient Care Services. Performed By: #### 2430-8 #### [facility] PROGRESS NOTES Observed: 09/24/2018 Status: F Source: [facility] 2:29 PM HEALTH SYSTEM REPOSITORY Patient: LOVE PHELAN MRN: [id number] Age: 73 years Sex: Male : 1945 Associated Diagnoses: None Author: Nael AMBRIZ , Georges Dumont Impression and Plan IMPRESSION: Chronic kidney disease stage III- UPCR 0.9g/g and ultrasound w/ kidneys 13cm bilat presumably with diabetic nephropathy. Hypertension. Type 2 diabetes mellitus. Coronary artery disease status post multivessel PCI in 2009 as above. Severe mitral regurgitation evaluated by CT surgery PLAN: -CT done today monitor serial creatinine for contrast nephropathy. -hold off on restarting YING-I until through with IV contrast window. -start Imdur 30 for hypertensive control today, but may transition back to lisinopril/HCTZ soon. Mehdi Nayak MD [facility] Subjective Feeling OK today. Had CT chest. No sob, Cp, abd pain. Health Status Allergies Allergic Reactions (Selected) Mild Doxycycline- Hives. Objective Last Charted Vital Signs Temperature: 97.4 (09/24 08:05) Pulse: 72 (09/24 09:06) Respiration: 17 (09/24 08:05) BP: 173/85 (09/24 09:06) Pulse Ox: 96 (09/24 08:05) Oxygen Delivery: Room air (09/24 08:05) Pain Score: 0 (09/24 11:11) EXAM: see vitals below General - no acute distress, comfortable Chest/Respiratory - Clear to auscultation. Cardiovascular - Normal rate, regular rhythm without murmurs, rubs or gallops. Abdomen/Gastrointestinal - Soft, nontender, nondistended, (+) bowel sounds. Musculoskeletal - No synovitis. No joint effusions or erythemia in knees, elbows, hands, wrists Extremities - No edema. Neuropsych - Grossly nonfocal, appropriate. Moving all 4 extremities and no decreased sensation to fine touch Results Review Labs - Last 36 hours (Max 2 / lab test) CHEMISTRY Sodium 136 (09/24 07:28) 133 (09/23 07:38) Potassium 4.3 (09/24 07:) 4.1 (09/23 07:38) Chloride 101 (09/24 07:) 98 (09/23 07:38) CO2 23 (09/24 07:) 22 (09/23 07:38) Glucose 313 (09/24 07:) 265 (09/23 07:38) Glucose POCT No result BUN 63 (09/24 07:28) 63 (09/23 07:38) Creatinine 1.53 (09/24 07:) 1.52 (09/23 07:38) Calcium Total 8.9 (09/24 07:) 8.8 (09/23 07:38) Magnesium No result HEMATOLOGY WBC 5.6 (09/24 07:28) 8.9 (09/23 07:38) RBC 4.16 (09/24 07:) 4.39 (09/23 07:38) Hb 11.6 (09/24 07:) 12.3 (09/23 07:38) Hematocrit 34.8 (09/24 07:) 37.2 (09/23 07:38) Platelets 146 (09/24 07:) 170 (09/23 07:38) MCV 83.5 (11/28 07:28) 84.6 (09/23 07:38) MCH 27.9 (09/24 07:28) 27.9 (09/23 07:38) RDW 14.2 (09/24 07:28) 14.4 (09/23 07:38) MCHC 33.5 (09/24 07:28) 33.0 (09/23 07:38) Neutrophil Ab No result Monocyte Ab No result Eosinophil Ab No result Basophil Ab No result Lymphocyte Ab No result COAGULATION Partial Thromboplastin (aPTT) 79.4 Sec (09/22 05:46) 88.6 Sec (09/22 01:15) INR 1.35 (09/22 05:46) Prothrombintime (PT) 15.6 Sec (09/22 05:46) CHOLESTEROLS Lipid Profile - Cholesterol 125 mg/dL (09/22 05:46) Lipid Profile - Triglyceride 219 mg/dL (09/22 05:46) HDL Cholesterol 27 mg/dL (09/22 05:46) LDL Cholesterol 54 mg/dL (09/22 05:46) VLDL 44 mg/dL (09/22 05:46) OTHER LABS Anion Gap 12.0 mMol/L (09/24 07:28) 13.0 mMol/L (09/23 07:38) GFR Est. Non 45 mL/min (09/23 07:38) 41 mL/min (09/22 05:46) GFR Est. Berta 55 mL/min (09/23 07:38) 50 mL/min (09/22 05:46) Phosphorus Level 4.2 mg/dL (09/24 07:28) Albumin Level 3.8 gm/dL (09/24 07:28) Troponin I 0.51 ng/mL (09/22 05:46) 1.88 ng/mL (09/21 15:29) Thyroid Stimulating Hormo 1.36 mcIU/mL (09/22 05:46) B Type Natriuretic Peptid 140 Picogram/ml (09/23 07:38) 281 Picogram/ml (09/22 05:46) Folic Acid Level 18.0 ng/mL (09/24 07:28) Hemoglobin A1c 9.0 % tl hgb (09/22 05:46) Vitamin B12 Level 1399 Picogram/ml (09/24 07:28) MPV 9.3 FL (09/24 07:28) 9.4 FL (09/23 07:38) GLUCOSE POCT Collected: 09/24/2018 Status: F Source: [employer] (UPLOADED) 1:10 PM HEALTH SYSTEM REPOSITORY TYPE CODE TESTS RESULT OUT OF REFERENCE UNITS RANGE LAB 2340-8(LOIN 70-110 mg/dL C) High Glucose 315 POCT-LAB Result Comment: Treatment ranges and critical values established by Patient Care Services. All follow-up actions were taken by Patient Care Services. Performed By: #### 2430-8 #### [facility] CTA ABD AND PELVIS W Observed: 09/24/2018 Status: F Source: [employer] AND/OR W/O CONTRAST 12:35 PM HEALTH SYSTEM REPOSITORY Order Comment: CTA Abd and Pelvis w and/or w/o Contrast EXAMINATION TYPE: CT Ang Chest w and/or w/o Contrast, CTA Abd and Pelvis w and/or w/o Contrast with 3-D reconstructions. DATE OF EXAM : 09/24/2018 12:35 PM HISTORY: Preoperative examination for mitral valve repair., COMPARISON: NONE FINDINGS: CT angiogram chest with 3-D reconstructions: Subcentimeter hypoattenuating lesion right thyroid lobe too small to characterize. Heart is not enlarged and there is no pericardial effusion. Coronary art anita calculi. Aorta and pulmonary arteries are normal in caliber. No aortic aneurysm or aortic dissection. Mildly enlarged left hilar lymph node measures 1.5 cm image 29 series 6. Pulmonary venous hy pertension. No suspicious pulmonary nodules, pleural effusions or consolidations. Bibasilar atelectasis. CT angiogram abdomen with 3-D reconstructions: Hepatic steatosis, hepatomegaly. Age-appropriate bilateral cortical renal atrophy. Pancreas, adrenal glands, spleen are unremarkable. Cholelithiasis. T here are no inflammatory changes or masses. Aorta is normal in caliber. There is no aortic aneurysm or aortic dissection. 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 T here are 2 right and 2 left renal arteries. Splenic artery originates from the anterior aspect of the aorta. CT angiogram pelvis with 3-D reconstructions: Prostate gland is mildly enlarged. There is no focal bladder wall or bowel wall abnormality. Colonic diverticula. Normal appendix. No inflammatory herrera es or masses. Iliac and common femoral arteries are normal in caliber and morphology. Left common femoral artery measures 0.8 cm in diameter. Right common femoral artery measures 0.9 cm in diameter. IMPRESSION: 1. No aortic aneurysm or aortic dissection. 2. No arterial stenosis. 3. Pulmonary venous hypertension. Mildly enlarged left hilar lymph node. Hepatic steatosis and hepatomegaly. Jed Vel[facility] thanks you for the opportunity to care for your patient. Workstation ID: [id number] - [id number] FINAL REPORT Dictated By: Dilan Saldana MD 09/24/2018 13:31 Assigned Physician: Dilan Saldana MD Reviewed and Electronically Signed By: Dilan Saldana MD 09/24/2018 14:03 Transcribed by: CATERINA 09/24/2018 13:48 Technologist: MAURICIO SAENZ CT ANG CHEST W AND/OR Observed: 09/24/2018 Status: F Source: [facility] W/O CONTRAST 12:35 PM HEALTH SYSTEM REPOSITORY EXAMINATION TYPE: CT Ang Chest w and/or w/o Contrast, CTA Abd and Pelvis w and/or w/o Contrast with 3-D reconstructions. DATE OF EXAM : 09/24/2018 12:35 PM HISTORY: Preoperative examination for mitral valve repair., COMPARISON: NONE FINDINGS: CT angiogram chest with 3-D reconstructions: Subcentimeter hypoattenuating lesion right thyroid lobe too small to characterize. Heart is not enlarged and there is no pericardial effusion. Coronary art anita calculi. Aorta and pulmonary arteries are normal in caliber. No aortic aneurysm or aortic dissection. Mildly enlarged left hilar lymph node measures 1.5 cm image 29 series 6. Pulmonary venous hy pertension. No suspicious pulmonary nodules, pleural effusions or consolidations. Bibasilar atelectasis. CT angiogram abdomen with 3-D reconstructions: Hepatic steatosis, hepatomegaly. Age-appropriate bilateral cortical renal atrophy. Pancreas, adrenal glands, spleen are unremarkable. Cholelithiasis. T here are no inflammatory changes or masses. Aorta is normal in caliber. There is no aortic aneurysm or aortic dissection. 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 T here are 2 right and 2 left renal arteries. Splenic artery originates from the anterior aspect of the aorta. CT angiogram pelvis with 3-D reconstructions: Prostate gland is mildly enlarged. There is no focal bladder wall or bowel wall abnormality. Colonic diverticula. Normal appendix. No inflammatory ehrrera es or masses. Iliac and common femoral arteries are normal in caliber and morphology. Left common femoral artery measures 0.8 cm in diameter. Right common femoral artery measures 0.9 cm in diameter. IMPRESSION: 1. No aortic aneurysm or aortic dissection. 2. No arterial stenosis. 3. Pulmonary venous hypertension. Mildly enlarged left hilar lymph node. Hepatic steatosis and hepatomegaly. [facility] thanks you for the opportunity to care for your patient. Workstation ID: [id number] - [id number] FINAL REPORT Dictated By: Dilan Saldana MD 09/24/2018 13:31 Assigned Physician: Dilan Saldana MD Reviewed and Electronically Signed By: Dilan Saldana MD 09/24/2018 14:03 Transcribed by: CATERINA 09/24/2018 13:48 Technologist: MAURICIO SAENZ PROGRESS NOTES Observed: 09/24/2018 Status: F Source: [facility] 11:42 AM [facility] SYSTEM REPOSITORY Patient: LOVE PHELAN MRN: [id number] Age: 73 years Sex: Male : 1945 Associated Diagnoses: None Author: Cristhian Hong DO Assessment Diagnosis/Impression/Plan: Mr Love Phelan is a 73-year-old male with past medical history to include CAD status post stents, hypertension, hyperlipidemia, insulin-dependent diabetes, newly diagnosed CKD stage III, who prese nts to [facility] 09/21/2018 for dyspnea Interval workup notable for NSTEMI with echo findings of severe mitral regurgitation #Acute hypoxemic respiratory failure-secondary to diastolic CHF with severe mitral regurgitation CHF treatment outlined, continue gentle diuresis as hemodynamics permit Plans for mitral valve replacement. Continue supplemental oxygen for goal saturation greater than 90%. 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 Given decompensated CHF secondary to severe mitral regurgitation, he underwent necessary CTA of the chest and abdomen and pelvis with contrast 09/24/18 Avoid other nephrotoxins as able Appreciate Nephro, monitoring closely, continue to hold Ying, noted starting Imdur #Poorly controlled IDDM - agree with insulin gtt for now # CAD s/p stent - cont asa, statin, BB. Plavix on hold given plans MVR # DVT ppx - SCDs while in bed FULL CODE_ Expected date of discharge 09/27 because of severe mitral regurgitation precipitating respiratory failure, with planned disposition C vs SNF Pending clinical trajectory and when consensus OK with Cardio/Nephro/CTS teams Code Status Full Resuscitation Comment: Provide all therapy to prevent/treat cardiac or respiratory arrest. Chief Complaint _CHF exac Health Status Allergies Allergic Reactions (Selected) Mild Doxycycline- Hives. Medication List (Selected) Inpatient Medications Ordered AmLODIPine: 10 mg, PO, Daily Atropine 0.1 mg/mL Syringe 10 mL: 0.5 mg, IV Push, Q3min, PRN: See Comments Dextrose 50% Syringe*: 12.5 Gm, IV Push, PRN, PRN: See Comments Dextrose 50% Syringe*: 25 Gm, IV Push, PRN, PRN: See Comments Dulcolax*: 10 mg, Rectal, Daily, PRN: Constipation Heparin Calculations Ref Text (CO): 1 Each, Comm, Communication Heparin Low Titration BOLUS (std dose)*: 5,000 Unit, IV Push, PRN, PRN: See Comments Insulin Human Regular Additive* 100 Unit [2 Unit/hr] + Sodium Chloride 0.9% 100 mL: 2 mL/hr, IV, Stop: 10/24/18 11:06:00 EST Insulin Infusion Titration Parameters Ref Text (CO): 1 Each, Comm, Communication Nitrostat: 0.4 mg, Subl, Q5min, PRN: See Comments Tylenol*: 650 mg, PO, Q4h, PRN: Pain - Mild Vitamin D3: 5,000 Unit, PO, Daily aspirin: 81 mg, PO, Daily atorvastatin: 20 mg, PO, Daily carvedilol: 12.5 mg, PO, w/bkfst+din cyanocobalamin: 100 mcg, IM, Month ([id number]) isosorbide mononitrate: 30 mg, PO, Daily oxygen: 1 Each, Inhalation, Daily Documented Medications Documented Insulin Lantus: 64 Unit, Subcut, BID, Each, 0 Refill(s) NovoLOG FlexPen 100 unit/ml subcutaneous solution: 32 Unit, Subcut, TID, Each, 0 Refill(s) Plavix 75 mg oral tablet: 1 Tab, PO, Daily, Each, 0 Refill(s) Vitamin D3 5000 intl units oral tablet: 1 Tab, PO, Daily, Each, 0 Refill(s) amLODipine 10 mg oral tablet: 1 Tab, PO, Daily, Each, 0 Refill(s) aspirin 81 mg oral tablet: 1 Tab, PO, Daily, Each, 0 Refill(s) atenolol 50 mg oral tablet: 1 Tab, PO, Daily, Each, 0 Refill(s) atorvastatin 20 mg oral tablet: 1 Tab, PO, Daily, Each, 0 Refill(s) cyanocobalamin 100 mcg/ml injectable solution: 1 mL, IM, Month (O12Tcra), Each, 0 Refill(s) glipiZIDE 10 mg oral tablet, extended release: 1 Tab, PO, BID, Each, 0 Refill(s) hydroCHLOROthiazide 25 mg oral tablet: 1 Tab, PO, Daily, Each, 0 Refill(s) lisinopril 40 mg oral tablet: 1 Tab, PO, Daily, Each, 0 Refill(s) metFORMIN 500 mg oral tablet, extended release: 4 Tab, PO, Daily, Each, 0 Refill(s) Subjective _Pt s/e, feels better. Had ~1.6L net neg. He returns from [facility]. Relays no cp/shob/nvd. No fever or chills. Objective Last Charted Vital Signs Temperature: 97.1 (09/24 15:23) Pulse: 75 (09/24 16:44) Respiration: 17 (09/24 08:05) BP: 153/74 (09/24 16:44) Pulse Ox: 96 (09/24 15:23) Oxygen Delivery: Room air (09/24 15:00) Pain Score: 0 (09/24 15:00) Height: 108.34 cm /42.65 in (Type not Indicated) (09/21/2018 18:08:00) Weight: 102.4 kg/ 225 lbs 12.1 oz (Actual) (09/24/2018 05:17:01) Body Surface Area: 1.76 m2 Body Mass Index: 87.24 Intake and Output (Previous 24Hrs) I and O Summary Begin date: 09/23 20:02 End date: 09/24 20:02 24 Hour Intake: 784.00 Output: 1500.00 Balance: -716.00 Last BM: No BM Charted Physical Exam: General: AO, appears stated age HEENT: ATNC, sclerae nonicteric, mmm Neck: Soft, trachea midline Heart: S1 S2, holo m, no JVD Lungs: coarse bs, no crackles, no acc muscle use. Dim bases. Abdomen/GI: soft, nontender, nondistended. Extremity/Musculoskeletal: Normal muscle tone, trace edema Neurologic: No gross focal weakness. No facial droop appreciated. Skin: Visible skin warm, dry, intact Results Review Labs - Last 36 hours (Max 2 / lab test) CHEMISTRY Sodium 136 (09/24 07:) Potassium 4.3 (09/24 07:) Chloride 101 (09/24 07:) CO2 23 (09/24 07:) Glucose 313 (09/24 07:) Glucose POCT No result BUN 63 (09/24 07:) Creatinine 1.53 (09/24 07:) Calcium Total 8.9 (09/24) Magnesium No result HEMATOLOGY WBC 5.6 (09/24 07:) RBC 4.16 (09/24 07:) Hb 11.6 (09/24 07:) Hematocrit 34.8 (09/24 07:) Platelets 146 (09/24 07:) MCV 83.5 (09/24 07:) MCH 27.9 (09/24 07:) RDW 14.2 (09/24 07:) MCHC 33.5 (09/24 07:) Neutrophil Ab No result Monocyte Ab No result Eosinophil Ab No result Basophil Ab No result Lymphocyte Ab No result COAGULATION Partial Thromboplastin (aPTT) 79.4 Sec (09/22 05:46) 88.6 Sec (09/22 01:15) INR 1.35 (09/22 05:46) Prothrombintime (PT) 15.6 Sec (09/22 05:46) CHOLESTEROLS Lipid Profile - Cholesterol 125 mg/dL (09/22 05:46) Lipid Profile - Triglyceride 219 mg/dL (09/22 05:46) HDL Cholesterol 27 mg/dL (09/22 05:46) LDL Cholesterol 54 mg/dL (09/22 05:46) VLDL 44 mg/dL (09/22 05:46) OTHER LABS Anion Gap 12.0 mMol/L (09/24 07:28) 13.0 mMol/L (09/23 07:38) GFR Est. Non 45 mL/min (09/23 07:38) 41 mL/min (09/22 05:46) GFR Est. Berta 55 mL/min (09/23 07:38) 50 mL/min (09/22 05:46) Phosphorus Level 4.2 mg/dL (09/24 07:) Albumin Level 3.8 gm/dL (09/24 07:28) Troponin I 0.51 ng/mL (09/22 05:46) Thyroid Stimulating Hormo 1.36 mcIU/mL (09/22 05:46) B Type Natriuretic Peptid 140 Picogram/ml (09/23 07:38) 281 Picogram/ml (09/22 05:46) Folic Acid Level 18.0 ng/mL (09/24 07:28) Hemoglobin A1c 9.0 % tl hgb (09/22 05:46) PTH Intact 54 Picogram/ml (09/24 07:28) Vitamin B12 Level 1399 Picogram/ml (09/24 07:28) Vitamin D 25-Hydroxy Leve 26.01 ng/mL (09/24 07:28) MPV 9.3 FL (09/24 07:28) 9.4 FL (09/23 07:38) Blood 09/24/18 19:35:00 Glucose POCT-LA: 272 Comment: 09/22/18 12:22:00 Activated Clott: 188 Comment: 09/22/18 06:05:00 Hematocrit POCT: 36 Hemoglobin POCT: 11.7 Sodium POCT: 136 Potassium POCT: 4.5 Calcium Ionized: 1.16 Lactate POCT: 1.5 Microbiology No results found General Results Lab/diagnostic studies personally reviewed. Supervising Physician Comments . Diagnosis Documentation . Observed: 09/24/2018 Status: F Source: [facility] TEST RESULT EJECTION 10:18 AM HEALTH SYSTEM FRACTION REPOSITORY 60-65 TRANSESOPHAGEAL ECHO Observed: 09/24/2018 Status: F Source: [facility] 10:18 AM [facility] SYSTEM REPOSITORY Transesophageal Echocardiography Report (CLAI[facility]) Demographics Patient Name TAPAN ALEMAN Date of 1945 E Patient Number [id number] Age 73 year(s) Visit Number [id number] Gender Male Room Number 2E41 Admission Status Inpatient Referring Christi Tang MD [employer] Consultant Maco Hardin Physician RDCS Interpreting Christi Tang MD Ordering Christi Tang MD Provider Physician Procedure Type of Study CLAIRE procedure: Color Doppler, 3D Acquisition/Manipulation, Bubble Study, Doppler Limited, CLAIRE Complete, Moderate Sedation:, Add'l 15 Min x1, Initial 15 Minutes. Procedure Date Date: 09/24/2018Start: 10:18 AM Technical Quality: Fair visualizationStudy Location: Echo Lab Indications: Valvular Regurgitation, Known. Contrast Medium: Bubble Study. Height: 70.87 inchesWeight: 233.69 poundsBSA: 2.25 m2 BMI: 32.72 kg/m2 BP: 173/85 mmHg Probe Insertion:The transesophageal probe was inserted without difficulty Complications: There were no procedural difficulties or complications CLAIRE Performed By: the attending and the revenue cycle analyst Type of Anesthesia: Moderate sedation Procedure Medications - Versed I.V. 4 mg. - Fentanyl I.V. 75 mcg. CONCLUSIONS SUMMARY Normal left ventricular cavity size/wall thickness/wall motion and systolic function. The left ventricular ejection fraction is 60-65% per visual estimation. Normal right ventricular structure and function. Moderate left atrial enlargement No left atrial or left atrial appendage thrombus or spontaneous echo contrast Small PFO with jaei-wl-[id number] shunt on color Doppler. No right to left shunting demonstrated with agitated saline Mild diffuse mitral valve leaflet thickening. There is flail anterior mitral valve leaflet at the A3 segment. Resulting severe highly eccentric laterally and posteriorly directed mitral regurgitation (VC 1.0 cm, ERO 0.24 cm2) No mitral stenosis (mean transmitral gradient 2 mmHg, PHT 60 ms, MVA by PHT 3.7 cm2 , MVA 6.0 cm2 by 3D planimetry) No pulmonary vein flow reversal, exam limited due to highly eccentric mitral regurgitant jet Findings Mitral Valve Mild diffuse mitral valve leaflet thickening. There is flail anterior mitral valve leaflet at the A3 segment. Resulting severe highly eccentric laterally and posteriorly directed mitral regurgitation (VC 1.0 cm, ERO 0.24 cm2) No mitral stenosis (mean transmitral gradient 2 mmHg, PHT 60 ms, MVA by PHT 3.7 cm2 , MVA 6.0 cm2 by 3D planimetry) No pulmonary vein flow reversal, exam limited due to highly eccentric mitral regurgitant jet Aortic Valve Normal aortic valve structure and function. No evidence of aortic stenosis or aortic regurgitation is present by color Doppler. Tricuspid Valve Normal tricuspid valve structure and function. Trace tricuspid regurgitation is present by color Doppler. RVSP unable to be estimated due to inadequate TR jet Pulmonic Valve Grossly normal pulmonic valve structure and function. No pulmonic regurgitation is present by color Doppler. Left Atrium Moderate left atrial enlargement No left atrial or left atrial appendage thrombus or spontaneous echo contrast Left Ventricle Normal left ventricular cavity size/wall thickness/wall motion and systolic function. The left ventricular ejection fraction is 60-65% per visual estimation. Right Atrium Normal right atrial size. Right Ventricle Normal right ventricular structure and function. Pericardial Effusion No pericardial effusion noted. Aorta Normal aortic root and ascending aortic dimensions. Mild diffuse atherosclerotic disease of the aorta Interatrial Septal Small PFO with [id number] shunt on color Doppler. No right to left shunting demonstrated with agitated saline M-Mode/2D Measurements and Calculations RV Lenght: Ascending Aorta: 2.8 cm Doppler Measurements and Calculations MV Mean Gradient: 2 mmHg MV Mean Velocity: 60.6 cm/s MV P1/2t: 60 msec MVA by [id number] MR Velocity: 617 cm/s MR VTI: 186 cm MV VTI: 30.9 cmMV Vena Contracta: 1 cm MV CANDIDA Volumetric: 0.24 cm2 Signature PROGRESS NOTES Observed: 09/24/2018 Status: C Source: [place] 9:42 AM [facility] SYSTEM REPOSITORY Patient: LOVE PHELAN MRN: [id number] Age: 73 years Sex: Male : 1945 Associated Diagnoses: None Author: Sarah Bryan CNP Supervising Physician Comments Documentation By: Nurse Practitioner. Comments HPI: Mr. Aleman is a 73 year old male with past medical history significant for chronic ischemic heart disease s/p multivessel stenting in 2009, HTN, HLD, T2DM, CKD, and obesity who presented to [facility] on 09/21/18 with c/o shortness of breath. He was in [place] visiting [facility] for the holidays when he noted right shoulder pain on 09/20. He states that he took Ibuprofen and this pain improv ed. Then he went to bed and had worsening exertional dyspnea and called EMS. His oxygen saturation was 72% on room air. He was placed on oxygen and his oxygen saturation improved to 92%. He was brought to the ED for further evaluation. On arrival, his BMP was notable for SCr 1.7, BNP 233 and CXR was concerning for pulmonary edema. He was given IV Lasix with improvement in symptoms. Cardiology was cons ulted and an echocardiogram was ordered. 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 Likely severe per dop pler assessment. It was also recommended to undergo cardiac catheterization due to his history of PCI. This was completed today as well and was found to have patent stents to LAD and LCx. RCA is occlude d and supplied by left to right collaterals which is known since 2009. [facility] was asked to evaluate pt for mitral valve repair/replacement. Of note, pt lives in [place] and follows with his Tile Designer there regularly. He had a routine office visit in June where it was recommended to continue with medical management. He has had no complaints at baseline. PE General: Vital signs stable, no acute distress, calm, appropriate, cooperative. Respiratory: - Lungs clear and diminished with no wheezing, rales, or rhonchi heard bilaterally - Easy and unlabored respirations with no intercostal retractions or use of accessory muscles Cardiovascular: - RRR - S1S2 with no S3 or S4 heard - +systolic murmur heard - No LE edema present - Palpable dorsal pedis pulses bilaterally - No carotid bruits GI: Abdomen is soft, nontender, non distended, bowel sounds present MS: Grossly normal. Muscle strength and tone is equal/normal in all extremities; Neck full range of motion Integumentary: No rashes/lesions Neuro: Alert and oriented X 3; equal strength and sensation bilaterally. No focal neuro deficits are appreciated Psychiatric: Does not appear anxious or depressed LABS/Testing reviewed Assessment/Plan 1. Severe MR: -CLAIRE today -Carotid duplex completed: right 50-69%, left 1-49% -SCr 1.5 this AM. Discussed with Nephrology. Okay to undergo CTA series as his creatinine is likely at his baseline -Hold Lasix today with CTA series being completed -Cont to hold Plavix -OR Saturday chk CLAIRE/CTA surgery saturday GLUCOSE POCT Collected: 09/24/2018 Status: F Source: [place] (UPLOADED) 8:07 AM HEALTH SYSTEM REPOSITORY TYPE CODE TESTS RESULT OUT OF REFERENCE UNITS RANGE LAB 2340-8(LOIN 70-110 mg/dL C) High Glucose 300 POCT-LAB Result Comment: Treatment ranges and critical values established by Patient Care Services. All follow-up actions were taken by Patient Care Services. Performed By: #### 2430-8 #### [facility] POINT OF CARE CBC Collected: 09/24/2018 Status: F Source: [place] 7:28 AM [facility]ALTH SYSTEM REPOSITORY TYPE CODE TESTS RESULT OUT OF REFERENCE UNITS RANGE LAB 23523-0(LO 6.2-12.1 FL INC) MPV Normal 9.3 LAB 33836-2(LO 32.0-36.0 gm/dL INC) MCHC Normal 33.5 LAB 13645-0(LO 39.0-49.0 % INC) Low Hematocrit 34.8 LAB 89113-3(LO 142-424 thou/mcL INC) Normal Platelet Count 146 LAB 52131-8(LO 27.0-34.0 Picograms INC) MCH Normal 27.9 LAB 82999-4(LO 11.0-14.8 % INC) RDW Normal 14.2 LAB 37457-6(LO 80.0-97.0 FL INC) MCV Normal 83.5 LAB 718-7(LOIN 13.5-17.5 gm/dL C) Low Hemoglobin 11.6 LAB 95970-6(LO 4.6-10.2 thou/mcL INC) WBC Normal Count 5.6 LAB 17880-6(LO 4.30-5.70 million/mcL INC) Low Red Blood Cell 4.16 Count Performed By: #### 56258-9 #### [place] [address] [address] [place], [place] #### 1988-[birth year] #### [place] [address] [place], [place] VITAMIN D 25 HYDROXY Collected: 09/24/2018 Status: F Source: [facility] 7:28 AM HEALTH SYSTEM REPOSITORY TYPE CODE TESTS RESULT OUT OF REFERENCE UNITS RANGE LAB 1988-3(LOIN 30.00-100.00 ng/mL C) Low Vitamin D 26.01 25-Hydroxy Level Result Comment: NEW METHOD AND INTERPRETIVE DATA Vitamin D Status Range ------ Deficiency <20 ng/mL(50 nmol/L) Insufficiency 20-30 ng/mL(50-75 nmol/L) Sufficiency 30-100 ng/mL(75-250 nmol/L) Toxicity >100 ng/mL (250 nmol/L) Performed By: #### 56070-6 #### [facility] [address] [place], [place] #### 1988-12 #### [facility] [address] [place], [place] RENAL FUNCTION PANEL Collected: 09/24/2018 Status: F Source: [place] 7:28 AM [facility] SYSTEM REPOSITORY TYPE CODE TESTS RESULT OUT OF RANGE REFERENCE UNITS LAB 2160-0(HANY 0.60-1.30 mg/dL NC) High Creatinine 1.53 LAB 1751-7(HANY 3.5-4.8 gm/dL NC) Albumin Normal Level 3.8 LAB 2951-2(HANY 136-145 mMol/L NC) Sodium Normal Level 136 LAB 2075-0(HANY 98-107 mMol/L NC) Chloride Normal Level 101 LAB 34317-0(LO 2.4-4.7 mg/dL INC) Normal Phosphorus Level 4.2 LAB 31722-4(LO 70-110 mg/dL INC) High Glucose Level 313 LAB 2823-3(HANY 3.6-5.1 mMol/L NC) Normal Potassium Level 4.3 LAB 37902-3(LO 8-20 mg/dL INC) High BUN 63 LAB 25723-4(LO 8.9-10.3 mg/dL INC) Calcium Normal Total 8.9 LAB 71725-5(LO 6.0-18.0 mMol/L INC) Anion Normal Gap 12.0 LAB 8-9(HANY 22-32 mMol/L NC) Carbon Normal Dioxide Level 23 Performed By: #### 92918-9, 2283-8, #### [facility] [address] [place], [place] FOLIC ACID LEVEL Collected: 09/24/2018 Status: F Source: [place] 7:28 AM [facility] REPOSITORY TYPE CODE TESTS RESULT OUT OF RANGE REFERENCE UNITS LAB 2283-8(LOIN >4.0 ng/mL C) Normal Folic 18.0 Acid Level Result Comment: The World Health Organization Technical Consultation on folate and vitamin B12 deficiencies has determined that deficient folate concentrations are considered to be less than 4 ng/mL Previous Folate reference range = greater than 3 ng/ml New Folate reference range = greater than 4 ng/ml Performed By: #### 65066-9, 2283-8, #### [facility] [address] [place], [place] VITAMIN B12 LEVEL Collected: 09/24/2018 Status: F Source: [place] 7:28 AM [facility] SYSTEM REPOSITORY TYPE CODE TESTS RESULT OUT OF REFERENCE UNITS RANGE LAB 2131-9(LOIN 180-914 Picogram/ml C) High Vitamin B12 1399 Level Performed By: #### 30711-5, 2284-8, 2132- 9 #### [facility] [address] [place], [place] PARATHYROID HORMONE Collected: 09/24/2018 Status: F Source: [facility] (PTH) INTACT 7:28 AM HEALTH SYSTEM REPOSITORY TYPE CODE TESTS RESULT OUT OF RANGE REFERENCE UNITS LAB 2731-8(LOIN 12-88 Picogram/ml C) Normal PTH Intact 54 Performed By: #### 2731-8 #### [facility] [address] [place], [place] XR CHEST 1 VIEW Observed: 09/24/2018 Status: F Source: [place] 6:51 AM HEALTH SYSTEM REPOSITORY PORTABLE CHEST 11/24/2017 0650: CLINICAL STATEMENT: Pleural effusion COMPARISON: 09/22/2018 FINDINGS: Heart size is normal. No acute trait, pleural effusion or pneumothorax. There is a small region of focal prominence to the superior portion of the left hilum questionable for a small mass. IMPRESSION: Small focal soft tissue prominence associated with the superior right hilum. Further assessment with chest CT advise. Jed Velarde thanks you for the opportunity to care for your patient. Workstation ID: [id number] - [id number] FINAL REPORT Dictated By: Lucas Schaeffer MD 09/24/2018 07:22 Assigned Physician: Lucas Schaeffer MD Reviewed and Electronically Signed By: Lucas Schaeffer MD 09/24/2018 07:24 Transcribed by: CATERINA 09/24/2018 07:22 Technologist: CHINYERE DAMON PROTEIN CREATININE Collected: 09/23/2018 Status: F Source: [place] [place] RATIO URINE 9:45 PM HEALTH SYSTEM REPOSITORY TYPE CODE TESTS RESULT OUT OF RANGE REFERENCE UNITS LAB 16622-1(LO INC) Protein Normal / Creatinine 0.9 Ratio Urine Result Comment: Reference Intervals: Normal Proteinuria = <0.1 Mild Proteinuria = 0.1 - 1.0 Moderate Proteinuria = 1.0 - 10.0 Heavy Proteinuria = >10.0 LAB 2161-8(LOINC) mg/dL Normal Creatinine Urine 121.62 LAB 2888-6(LOINC) <11.9 mg/dL High Protein Random Urine 111.2 Performed By: #### 94479-2 #### [facility] [address] [place], [place] GLUCOSE POCT Collected: 09/23/2018 Status: F Source: [place] (UPLOADED) 9:28 PM HEALTH SYSTEM REPOSITORY TYPE CODE TESTS RESULT OUT OF REFERENCE UNITS RANGE LAB 2340-8(LOIN 70-110 mg/dL C) High Glucose 319 POCT-LAB Result Comment: Treatment ranges and critical values established by Patient Care Services. All follow-up actions were taken by Patient Care Services. Performed By: #### 2430-8 #### [facility] POINT OF CARE GLUCOSE POCT Collected: 09/23/2018 Status: F Source: [place] (UPLOADED) 4:50 PM HEALTH SYSTEM REPOSITORY TYPE CODE TESTS RESULT OUT OF REFERENCE UNITS RANGE LAB 2340-8(LOIN 70-110 mg/dL C) High Glucose 274 POCT-LAB Result Comment: Treatment ranges and critical values established by Patient Care Services. All follow-up actions were taken by Patient Care Services. Performed By: #### 2430-8 #### [facility] POINT OF CARE PROGRESS NOTES Observed: 09/23/2018 Status: C Source: [place] 3:34 PM [facility]ALTH SYSTEM REPOSITORY Patient: LOVE PHELAN MRN: [id number] Age: 73 years Sex: Male : 1945 Associated Diagnoses: None Author: Juana AMBRIZ, Chandana Dutton Supervising Physician Comments Documentation By: Attending Physician. Assessment Assessment and Plan Patient is a 73-year-old male with history of CAD status post stenting, hypertension, hyperlipidemia, insulin-dependent diabetes, newly diagnosed chronic kidney disease, presented with sudden onset of s hortness of breath and hypoxia, likely due to acute CHF exacerbation 1. Acute hypoxic respiratory failure secondary to severe MR found on TTE - presented on admission, due to acute CHF, patient was satting 100% on 40% FiO2 on BiPAP, I was able to wean him down to 2L na jayashree cannula and O2 sats remained in the 95-94%. BiPAP at bedtime and as needed. TTE ordered and shows severe MR that will require intervention. CTS consulted and plan for MVR on Saturday. CLAIRE in am. 2. Acute CHF - unknown type, presented on admission, diuresing with IV Lasix, strict monitor ins and outs and daily weight, Echo ordered, cardiology consult and went to [facility] showing patent stents to LCx and LCA with RCA occlusion that is known. Cont with aggresive medical managment. Optimize medications 3. Chronic kidney disease - presented with serum creatinine of 1.7 down to 1.5, unknown baseline, we'll continue to monitor renal function while on Lasix, avoid nephrotoxic agent, and renally dose all m eds. Apprecaite renal recs 4. NSTEMI secondary to Acute CHF - mildly elevated 0.07, EKG without ischemic changes, underwent [facility] showing elevated levels LVEDP and HF. 5. Insulin-dependent diabetes - patient stated that he is on 64 units of Lantus twice a day, 32 units of NovoLog 3 times a day with meals, would restart Lantus and NovoLog with health the dose, Increase d lantus to 40 units and meal to 20 units TID. 6. Hypertension - mildly hypertensive, will continue home amlodipine, betta brisa, I will hold lisinopril given his renal function. 7. CAD status post stenting - will continue home aspirin and Plavix, statin and atenolol. HOld Plavix for any procedure 24hr Plan - IV lasix with goal -500/1L again today - CTS consult for evaluation of severe MR with planned MVR on Saturday 1. Carotid US - No intervention 2. OMFS- no intervention 3. CLAIRE in am - CLAIRE in am with cardiology - NPO at midnight - DM control wiht increase in lantus 40 units qday and increase 20 units TID WM - Renal function improved 1.5 today and probably due to volume overload - CTA series pending kidney resolution or baseline - Hold Plavix DVT prophylaxis - SCDs while in bed CODE STATUS - full code Expected date of discharge 09/27/18 because IV lasix, BiPAP, and MVR on Saturday with planned disposition Home with HC/SNF Subjective Comments Patient seen and examiend. Pt with no acute events overnight and awaitng full plan by CTS Denies fevers, chills, nausea, vomiting, abdominal pain, chest pain or shortness of breath. Objective Last Charted Vital Signs Temperature: 97.9 (09/23 11:58) Pulse: 64 (09/23 11:58) Respiration: 16 (09/23 04:04) BP: 124/67 (09/23 11:58) Pulse Ox: 99 (09/23 14:41) Oxygen Delivery: Nasal cannula (09/23 14:41) O2 Device Flow: 2 L/min Pain Score: 0 (09/23 12:37) Intake and Output (Previous 24Hrs) I and O Summary Begin date: 09/22 15:34 End date: 09/23 15:34 24 Hour Intake: 480.00 Output: 2850.00 Balance: -2370.00 Last BM: No BM Charted Measurements Height: 108.34 cm /42.65 in (Type not Indicated) (09/21/2018 18:08:00) Weight: 103.2 kg/ 227 lbs 8.3 oz (Type not Indicated) (09/23/2018 07:22:00) Body Surface Area: 1.76 m2 Body Mass Index: 87.92 General: Alert and oriented x3. No acute distress. Appears documented age. Skin: Warm , dry , and intact. No icterus noted. Heart: No thrills or heaves. regular rate and rhythm. Lungs: Patient appears to be breathing comfortably. Clear to auscultation bilaterally. Abdomen/GI: Bowel sound present. Soft nontender and nondistended. Extremity/Musculoskeletal: No clubing, cyanosis or edema. Normal muscle tone. 2+ radial pulses. Pyschiatric: Normal mood. Neurologic: No focal weakness in the patient's upper or lower extremities. No gross sensory loss in the upper or lower extremities. Results Review Labs - Last 36 hours (Max 2 / lab test) CHEMISTRY Sodium 133 (09/23 07:38) 132 (09/22 05:46) Potassium 4.1 (09/23 07:38) 4.6 (09/22 05:46) Chloride 98 (09/23 07:38) 104 (09/22 05:46) CO2 22 (09/23 07:38) 21 (09/22 05:46) Glucose 265 (11/27 07:38) 314 (09/22 05:46) Glucose POCT 311 (09/22 06:05) BUN 63 (09/23 07:38) 63 (09/22 05:46) Creatinine 1.52 (09/23 07:38) 1.65 (09/22 05:46) Calcium Total 8.8 (09/23 07:38) 8.6 (09/22 05:46) Magnesium No result HEMATOLOGY WBC 8.9 (09/23 07:38) 8.0 (09/22 05:46) RBC 4.39 (09/23 07:38) 4.22 (09/22 05:46) Hb 12.3 (09/23 07:38) 11.8 (09/22 05:46) Hematocrit 37.2 (09/23 07:38) 35.0 (09/22 05:46) Platelets 170 (09/23 07:38) 163 (09/22 05:46) MCV 84.6 (09/23 07:38) 83.0 (09/22 05:46) MCH 27.9 (09/23 07:38) 28.0 (09/22 05:46) RDW 14.4 (09/23 07:38) 14.1 (09/22 05:46) MCHC 33.0 (09/23 07:38) 33.7 (09/22 05:46) Neutrophil Ab No result Monocyte Ab No result Eosinophil Ab No result Basophil Ab No result Lymphocyte Ab No result COAGULATION Partial Thromboplastin (aPTT) 79.4 Sec (09/22 05:46) 88.6 Sec (09/22 01:15) INR 1.35 (09/22 05:46) 1.22 (09/21 09:56) Prothrombintime (PT) 15.6 Sec (09/22 05:46) 14.0 Sec (09/21 09:56) CHOLESTEROLS Lipid Profile - Cholesterol 125 mg/dL (09/22 05:46) Lipid Profile - Triglyceride 219 mg/dL (09/22 05:46) HDL Cholesterol 27 mg/dL (09/22 05:46) LDL Cholesterol 54 mg/dL (09/2246) VLDL 44 mg/dL (09/22 05:46) OTHER LABS Anion Gap 13.0 mMol/L (09/23 07:38) 7.0 mMol/L (09/22 05:46) Est CrCl IBW (mL/min)-RX 39.85 mL/min (09/21 09:56) 41.45 mL/min (09/21 04:14) Est CrCl AdjBW (mL/min)-R 46.42 mL/min (09/21 09:56) 48.29 mL/min (09/21 04:14) GFR Est. Non 45 mL/min (09/23 07:38) 41 mL/min (09/22 05:46) GFR Est. Berta 55 mL/min (09/23 07:38) 50 mL/min (09/22 05:46) Magnesium Level 1.7 mg/dL (09/21 09:56) Troponin I 0.51 ng/mL (09/22 05:46) 1.88 ng/mL (09/21 15:29) Thyroid Stimulating Hormo 1.36 mcIU/mL (09/22 05:46) B Type Natriuretic Peptid 140 Picogram/ml (09/23 07:38) 281 Picogram/ml (09/22 05:46) Hemoglobin A1c 9.0 % tl hgb (09/22 05:46) MPV 9.4 FL (09/23 07:38) 9.3 FL (09/22 05:46) Neutrophil 67.9 % (09/21 04:14) Lymphocyte 19.0 % (09/21 04:14) Monocyte 9.2 % (09/21 04:14) Eosinophil 3.0 % (09/21 04:14) Basophil 0.9 % (09/21 04:14) Neutrophil Absolute 4.50 thou/mcL (09/21 04:14) Lymphocyte Absolute 1.30 thou/mcL (09/21 04:14) Monocyte Absolute 0.60 thou/mcL (09/21 04:14) Eosinophil Absolute 0.20 thou/mcL (09/21 04:14) Basophil Absolute 0.10 thou/mcL (09/21 04:14) General Results labs and imaging reviewed Health Status Allergies Allergic Reactions (Selected) Mild Doxycycline- Hives. Medication List (Selected) Inpatient Medications Ordered AmLODIPine: 10 mg, PO, Daily Atropine 0.1 mg/mL Syringe 10 mL: 0.5 mg, IV Push, Q3min, PRN: See Comments Dextrose 50% Syringe*: 12.5 Gm, IV Push, PRN, PRN: See Comments Dulcolax*: 10 mg, Rectal, Daily, PRN: Constipation Glucagon: 1 mg, Subcut, PRN, PRN: See Comments Heparin Calculations Ref Text (CO): 1 Each, Comm, Communication Heparin Low Titration BOLUS (std dose)*: 5,000 Unit, IV Push, PRN, PRN: See Comments HumaLOG RAPID-Actin Unit, Subcut, w/meals TID Insulin Lispro Sliding Scale (HumaLOG)*: Conservative Scale, Subcut, ac+bedtime Lantus LONG-Actin Unit, Subcut, ac bkfst Nitrostat: 0.4 mg, Subl, Q5min, PRN: See Comments Sodium Chloride 0.9% 1,000 mL: 50 mL/hr, IV, Stop: 10/23/18 8:35:00 EST Tylenol*: 650 mg, PO, Q4h, PRN: Pain - Mild Vitamin D3: 5,000 Unit, PO, Daily aspirin: 81 mg, PO, Daily atorvastatin: 20 mg, PO, Daily carvedilol: 12.5 mg, PO, w/bkfst+din cyanocobalamin: 100 mcg, IM, Month ([id number]) oxygen: 1 Each, Inhalation, Daily oxygen: 1 Each, Inhalation, Daily Documented Medications Documented Insulin Lantus: 64 Unit, Subcut, BID, Each, 0 Refill(s) NovoLOG FlexPen 100 unit/ml subcutaneous solution: 32 Unit, Subcut, TID, Each, 0 Refill(s) Plavix 75 mg oral tablet: 1 Tab, PO, Daily, Each, 0 Refill(s) Vitamin D3 5000 intl units oral tablet: 1 Tab, PO, Daily, Each, 0 Refill(s) amLODipine 10 mg oral tablet: 1 Tab, PO, Daily, Each, 0 Refill(s) aspirin 81 mg oral tablet: 1 Tab, PO, Daily, Each, 0 Refill(s) atenolol 50 mg oral tablet: 1 Tab, PO, Daily, Each, 0 Refill(s) atorvastatin 20 mg oral tablet: 1 Tab, PO, Daily, Each, 0 Refill(s) cyanocobalamin 100 mcg/ml injectable solution: 1 mL, IM, Month ([id number]), Each, 0 Refill(s) glipiZIDE 10 mg oral tablet, extended release: 1 Tab, PO, BID, Each, 0 Refill(s) hydroCHLOROthiazide 25 mg oral tablet: 1 Tab, PO, Daily, Each, 0 Refill(s) lisinopril 40 mg oral tablet: 1 Tab, PO, Daily, Each, 0 Refill(s) metFORMIN 500 mg oral tablet, extended release: 4 Tab, PO, Daily, Each, 0 Refill(s) GLUCOSE POCT Collected: 09/23/2018 Status: F Source: [facility] (UPLOADED) 12:46 PM HEALTH SYSTEM REPOSITORY TYPE CODE TESTS RESULT OUT OF REFERENCE UNITS RANGE LAB 2340-8(LOIN 70-110 mg/dL C) High Glucose 250 POCT-LAB Result Comment: Treatment ranges and critical values established by Patient Care Services. All follow-up actions were taken by Patient Care Services. Performed By: #### 5176-8 #### [facility] POINT OF CARE US RETROPERITONEAL LTD Observed: 09/23/2018 Status: F Source: [place] 12:19 PM HEALTH SYSTEM REPOSITORY EXAMINATION TYPE: US KIDNEYS AND IMAGES OF THE URINARY BLADDER DATE OF EXAM: 09/23/2018 12:19 PM HISTORY: Renal Failure. COMPARISON: NONE FINDINGS: The kidneys maintain a normal sonographic appearance. Both kidneys measure approximately 13 cm in length and show normal cortical thickness. No hydronephrosis. Normal urinary bladder. IMPRESSION: The examination is within normal limits. Jed Velarde thanks you for the opportunity to care for your patient. Workstation ID: [id number] - [id number] FINAL REPORT Dictated By: Lucas Abrams MD 09/23/2018 12:21 Assigned Physician: Lucas Abrams MD Reviewed and Electronically Signed By: Lucas Abrams MD 09/23/2018 12:22 Transcribed by: CATERINA 09/23/2018 12:21 Technologist: NANETTE CONSULTATION Observed: 09/23/2018 Status: F Source: [place] 11:47 AM [facility] SYSTEM REPOSITORY Patient: LOVE PHELAN MRN: ([id number] Age: 73 years Sex: Male : 1945 Associated Diagnoses: None Author: Emerson Solis MD Nephrology Consultation dictated, #[id number]. Thanks, Emerson Solis MD [facility], [facility]. Pager: Office: PROGRESS NOTES Observed: 09/23/2018 Status: F Source: [place] 9:52 AM [facility]ALTH SYSTEM REPOSITORY Patient: LOVE PHELAN MRN: [id number] Age: 73 years Sex: Male : 1945 Associated Diagnoses: None Author: Hema DHALIWAL , Opal Savage Heart Failure Education Initiated : Reviewed medications, daily weights, low sodium diet, daily activity levels, signs and symptoms of Heart Failure and when to call physician. Evaluation of LV Function :09/22/2018 LVEF 60-65%, Severe MR Medications :IV lasix, Coreg, Norvasc Referrals :Deferred [facility] since patient lives in [facility] Comments :Patient with history of CAD, found to have new CHF. CTS consulted for possible MVR. Patient states he has been following a low sodium diet, but does use the salt shaker at meals. He does excee d the 64 oz fluid guideline. He has a scale for daily weights and will be compliant with medications. Initiated HF teaching with folder and Hf zone sheet. He is aware of when to call physician. He lives in [facility] and is here for the . He follows with evp Dr. Hemant Blanchard in [place] [facility] ROLE score for readmission 9. Recommendations :Close OP follow up with Dr. Blanchard Quality Measures Documentation PROGRESS NOTES Observed: 09/23/2018 Status: C Source: [place] 9:29 AM HEALTH SYSTEM REPOSITORY Patient: LOVE PHELAN MRN: [id number] Age: 73 years Sex: Male : 1945 Associated Diagnoses: None Author: Sarah Bryan CNP Supervising Physician Comments Documentation By: Nurse Practitioner. Comments HPI: Mr. Aleman is a 73 year old male with past medical history significant for chronic ischemic heart disease s/p multivessel stenting in 2009, HTN, HLD, T2DM, CKD, and obesity who presented to [facility] on 09/21/18 with c/o shortness of breath. He was in [place] visiting family for the holidays when he noted right shoulder pain on 09/20. He states that he took Ibuprofen and this pain improv ed. Then he went to bed and had worsening exertional dyspnea and called EMS. His oxygen saturation was 72% on room air. He was placed on oxygen and his oxygen saturation improved to 92%. He was brought to the ED for further evaluation. On arrival, his BMP was notable for SCr 1.7, BNP 233 and CXR was concerning for pulmonary edema. He was given IV Lasix with improvement in symptoms. Cardiology was cons ulted and an echocardiogram was ordered. 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 Likely severe per dop pler assessment. It was also recommended to undergo cardiac catheterization due to his history of PCI. This was completed today as well and was found to have patent stents to LAD and LCx. RCA is occlude d and supplied by left to right collaterals which is known since 2009. CTS was asked to evaluate pt for mitral valve repair/replacement. Of note, pt lives in [place] and follows with his T[facility]er there regularly. He had a routine office visit in June where it was recommended to continue with medical management. He has had no complaints at baseline. PE General: Vital signs stable, no acute distress, calm, appropriate, cooperative. Respiratory: - Lungs clear and diminished with no wheezing, rales, or rhonchi heard bilaterally - Easy and unlabored respirations with no intercostal retractions or use of accessory muscles Cardiovascular: - RRR - S1S2 with no S3 or S4 heard - +systolic murmur heard - No LE edema present - Palpable dorsal pedis pulses bilaterally - No carotid bruits GI: Abdomen is soft, nontender, non distended, bowel sounds present MS: Grossly normal. Muscle strength and tone is equal/normal in all extremities; Neck full range of motion Integumentary: No rashes/lesions Neuro: Alert and oriented X 3; equal strength and sensation bilaterally. No focal neuro deficits are appreciated Psychiatric: Does not appear anxious or depressed LABS/Testing reviewed Assessment/Plan 1. Severe MR: -Per Cardio, possible CLAIRE tomorrow -Carotid duplex completed: right 50-69%, left 1-49% -BMP pending this AM. Waiting on results to determine timing of CTA series -Cont diuresis -Cont to hold Plavix for possible surgery later this week -Transfer to [facility] plan MVR saturday PROGRESS NOTES Observed: 09/23/2018 Status: F Source: [place] 7:52 [facility] REPOSITORY Patient: LOVE PHELAN MRN: [id number] Age: 73 years Sex: Male : 1945 Associated Diagnoses: None Author: Zane AMBRIZ , Milly [facility] Cardiology Progress Note Subjective: diuresed 1.7 liters. still on 3l NC. 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 CTS wa s consulted for MV repair +/- RCA vasc. Awaiting comments from Dr moreno, but his PA Sarah Bryan saw the pt yesterday. Patients 2 daughter and in room--all questions regarding diagnosis and surgery addressed. feels less SOB today. no edema. He did have a huge salt load for thanksgiving meals. Objective: Physical Exam: General: Alert and oriented x 3 neck: + JVD, no thyromegaly Lungs: decreased bs at the bases b/l Cardio: RRR ns1s2, II/ HSM LLSB Abdomen: soft nt nd +bsx4 Extremities: no edema in LE b/l Neuro: CN II-II intact. Data echo 09/22/2018:CONCLUSIONS SUMMARY Normal LV size and function, EF 60-65%. Normal RV size and function. Moderate left atrial enlargement. 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 This is likely severe based on doppler assessment. Consider CLAIRE for further assessment of the mitral valve. No other significant valvular or pericardial abnormalities noted. Procedure Summary - Patent 2010 stents in the left anterior descending artery and left circumflex artery. - The proximal RCA is occluded and is supplied by left to right collaterals (known since February 2010). - Markedly elevated LVEDP at 30 mmHg. - Markedly elevated PCWP at 25 mmHg. - The right atrial, right ventricular and pulmonary arterial pressures are at the upper limit of normal. - Normal cardiac output. Recommendations - Continue treatment for decompensated heart failure. - Further recommendations regarding mitral valve repair/replacement +/- RCA revascularization per cardiac surgery team. - Lifestyle modifications and optimal medical therapy for CAD secondary prevention. Assessment Stress test 2014: No ischemia per EMR. Cardiac cath 2009: LAD 85% followed by 80% stenosis. LCx 90%. RCA 100%. Per EMR, all vessels intervened upon with PCI and stenting (details unknown). 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 In setting of acute CHF, renal insufficiency of unknown chronicity, and underlying CAD. -Chronic ischemic heart disease; s/p NH and multivessel stenting 2009. He had negative stress test 2014. -Carotid artery disease -HTN, uncontrolled. Pt reports difficult to control BP at baseline requiring ongoing up-titration of regimen. At home may trend 130-150s mmHg systolic. -HLD -DM2 -Renal insufficiency; creat 1.7. Unknown baseline. -Obesity PLAN: --More diuresis today -monitor renal function--labs not back yet. -Dr moreno to meet/ assess patient -wean o2 --plan on CLAIRE 09/24 once respiratory status improves --hold plavix in the even that OR is contemplated Candie Degroot MD [facility] 09/23/2018 08:16 Vital Signs (Past 36 Hours) Last Charted Minimum Maximum Temperature 98.7 (09/23 04:04) 97.4 (09/22 23:24) 98.7 (09/23 04:04) Pulse 66 (09/23 04:04) 61 (09/22 18:32) 78 (09/22 05:09) Resp 16 (09/23 04:04) 16 (09/23 04:04) 18 (09/22 18:32) Pulse Ox 95 (09/23 06:32) 87 (09/22 05:09) 99 (09/22 08:47) Pain Score 0 (09/22 17:50) 0 (09/22 17:50) 0 (09/22 17:50) BP 159/71 (09/23 04:04) Minimum Maximum Systolic BP 113/62 (09/21 22:42) 159/71 (09/23 04:04) Diastolic BP 113/62 (09/21 22:42) 126/78 (09/22 23:24) . I and O Summary Begin date: 09/22 07:52 End date: 09/23 07:52 24 Hour Intake: 480.00 Output: 1750.00 Balance: -1270.00 Last BM: No BM Charted. Labs - Last 36 hours (Max 2 / lab test) CHEMISTRY Sodium 132 (09/22 05:46) Potassium 4.6 (09/22 05:46) Chloride 104 (09/22 05:46) CO2 21 (09/22 05:46) Glucose 314 (09/22 05:46) Glucose POCT 311 (09/22 06:05) BUN 63 (09/22 05:46) Creatinine 1.65 (09/22 05:46) Calcium Total 8.6 (09/22 05:46) Magnesium No result HEMATOLOGY WBC 8.0 (09/22 05:46) RBC 4.22 (09/22 05:46) Hb 11.8 (09/22 05:46) Hematocrit 35.0 (09/22 05:46) Platelets 163 (09/22 05:46) MCV 83.0 (09/22 05:46) MCH 28.0 (09/22 05:46) RDW 14.1 (09/22 05:46) MCHC 33.7 (09/22 05:46) Neutrophil Ab No result Monocyte Ab No result Eosinophil Ab No result Basophil Ab No result Lymphocyte Ab No result COAGULATION Partial Thromboplastin (aPTT) 79.4 Sec (09/22 05:46) 88.6 Sec (09/22 01:15) INR 1.35 (09/22 05:46) 1.22 (09/21 09:56) Prothrombintime (PT) 15.6 Sec (09/22 05:46) 14.0 Sec (09/21 09:56) CHOLESTEROLS Lipid Profile - Cholesterol 125 mg/dL (09/22 05:46) Lipid Profile - Triglyceride 219 mg/dL (09/22 05:46) HDL Cholesterol 27 mg/dL (09/22 05:46) LDL Cholesterol 54 mg/dL (09/2246) VLDL 44 mg/dL (09/22 05:46) OTHER LABS Anion Gap 7.0 mMol/L (09/22 05:46) 14.0 mMol/L (09/21 09:56) Est CrCl IBW (mL/min)-RX 39.85 mL/min (09/21 09:56) 41.45 mL/min (09/21 04:14) Est CrCl AdjBW (mL/min)-R 46.42 mL/min (09/21 09:56) 48.29 mL/min (09/21 04:14) GFR Est. Non 41 mL/min (09/22 05:46) 39 mL/min (09/21 04:14) GFR Est. Berta 50 mL/min (09/22 05:46) 47 mL/min (09/21 04:14) Magnesium Level 1.7 mg/dL (09/21 09:56) Troponin I 0.51 ng/mL (09/22 05:46) 1.88 ng/mL (09/21 15:29) Thyroid Stimulating Hormo 1.36 mcIU/mL (09/22 05:46) B Type Natriuretic Peptid 281 Picogram/ml (09/22 05:46) 233 Picogram/ml (09/21 04:14) Hemoglobin A1c 9.0 % tl hgb (09/2246) MPV 9.3 FL (09/22 05:46) 9.0 FL (09/21 04:14) Neutrophil 67.9 % (09/21 04:14) Lymphocyte 19.0 % (09/21 04:14) Monocyte 9.2 % (09/21 04:14) Eosinophil 3.0 % (09/21 04:14) Basophil 0.9 % (09/21 04:14) Neutrophil Absolute 4.50 thou/mcL (09/21 04:14) Lymphocyte Absolute 1.30 thou/mcL (09/21 04:14) Monocyte Absolute 0.60 thou/mcL (09/21 04:14) Eosinophil Absolute 0.20 thou/mcL (09/21 04:14) Basophil Absolute 0.10 thou/mcL (09/21 04:14) . Inpatient Medications: Heparin Calculations Ref Text (CO) 1 Each, Comm, Communication, 09/21/18 9:28:00 EST Last Dose: Not Given AmLODIPine 10 mg Tab (Norvasc GEq) 10 mg = 1 Tab, PO, Tab, Daily,, x 30 Day(s), 09/21/18 5:49:00 EST Last Dose: 09/22/18 15:03:00 Aspirin 81 mg Tab Chew 81 mg = 1 Tab, PO, Tab Chew, Daily,, x 30 Day(s), 09/21/18 5:49:00 EST Last Dose: 09/22/18 15:03:00 Atorvastatin 20 mg Tab (Lipitor GEq) 20 mg = 1 Tab, PO, Tab, Daily,, x 30 Day(s), 09/21/18 5:49:00 EST Last Dose: 09/22/18 15:03:00 Cholecalciferol 5000 Unit Cap (Vitamin D-3 GEq) 5,000 Unit = 1 Cap, PO, Cap, Daily,, x 30 Day(s), 09/21/18 5:49:00 EST Last Dose: 09/22/18 15:03:00 Insulin U100 Lispro per unit MDV (HumaLOG GEq) 15 Unit = 0.15 mL, Subcut, Inject, w/meals TID,, x 30 Day(s), 09/21/18 5:52:00 EST Last Dose: Not Done Carvedilol 12.5 mg Tab (Coreg GEq) 12.5 mg = 1 Tab, PO, Tab, w/bkfst+din,, x 30 Day(s), 09/21/18 7:05:00 EST , Comment: Give with food. Measure BP and HR prior to each dose. Hold if SBP less than 90 mmHg or HR less than Last Dose: 09/22/18 15:02:00 Cyanocobalamin 1000 mcg/mL Vial 1 mL (Vitamin B-12) 100 mcg = 0.1 mL, IM, Inject, Month ([id number]),, x 30 Day(s), 09/21/18 5:49:00 EST Last Dose: Not Given Insulin U100 glargine per unit MDV (Lantus GEq) 30 Unit = 0.3 mL, Subcut, Inject, ac bkfst, x 30 Day(s), 09/21/18 5:52:00 EST , Comment: Do Not Mix With Other InsulinsDo Not Administer IVAdminister Subcutaneously Last Dose: 09/23/18 06:30:00 Insulin U100 Lispro per unit MDV (HumaLOG GEq) Conservative Scale, Inject, Subcut,, ac+bedtime, x 30 Day(s), 09/21/18 5:52:00 EST , Comment: << Sliding Scale Comments >> 0 - 60 Give 12.5 grams (25 mL) of Dextrose 50% for hypoglyce Last Dose: 09/23/18 06:30:00 oxygen Nasal Cannula, FIO2/LPM: 2-3, Target O2 Sat: Greater Than 90% Last Dose: Not Given Nitroglycerin Subl Tab 0.4 mg #25 (Nitrostat GEq) 0.4 mg = 1 Tab, Subl, Tab Subl, Q5min, PRN, See Comments, x 30 Day(s), 09/22/18 5:25:00 EST Last Dose: Not Given Glucagon 1 mg Vial (Glucagen GEq) 1 mg, Subcut, Inject, PRN, PRN, See Comments, x 30 Day(s), 09/21/18 5:52:00 EST , Comment: If IV access is not obtainable: For hypoglycemia blood glucose less than 60 mg/dL and patient c Last Dose: Not Given Acetaminophen 325 mg Tab (Tylenol GEq) 650 mg = 2 Tab, PO, Tab, Q4h, PRN, Pain - Mild, x 30 Day(s), 09/21/18 5:47:00 EST Last Dose: Not Given Bisacodyl 10 mg Suppos (Dulcolax GEq) 10 mg = 1 Suppos, Rectal, Suppos, Daily, PRN, Constipation, x 30 Day(s), 09/21/18 5:47:00 EST Last Dose: Not Given Current IV Orders: Furosemide 10 mg/mL Vial 4 mL (Lasix GEq) 40 mg = 4 mL, IV Push, Inject, Daily,, x 30 Day(s), 09/21/18 5:47:00 EST Last Dose: Not Done Atropine 1 mg/mL Vial 1 mL 0.5 mg = 0.5 mL, IV Push, Inject, Q3min, PRN, See Comments, x 6 Time(s)/Dose(s), 09/22/18 11:51:00 EST Last Dose: Not Given Heparin 1,000 Units/mL Vial 10 mL (NT) 5,000 Unit = 5 mL, IV Push, Inject, PRN, PRN, See Comments, x 30 Day(s), 09/21/18 9:28:00 EST , Comment: For PTT result less than 35 and increase drip by 4 Unit/kg/hr. Maximum Bolus 5, Last Dose: Not Given Dextrose 50% Syringe 25 Gm/50 mL 12.5 Gm = 25 mL, IV Push, Inject, PRN, PRN, See Comments, x 30 Day(s), 09/21/18 5:52:00 EST Last Dose: Not Given CBC Collected: 09/23/2018 Status: F Source: [facility] 7:38 [facility] REPOSITORY TYPE CODE TESTS RESULT OUT OF REFERENCE UNITS RANGE LAB 49639-2(LO 11.0-14.8 % INC) RDW Normal 14.4 LAB 63372-3(LO 39.0-49.0 % INC) Low Hematocrit 37.2 LAB 718-7(LOIN 13.5-17.5 gm/dL C) Low Hemoglobin 12.3 LAB 89941-2(LO 6.2-12.1 FL INC) MPV Normal 9.4 LAB 80068-7(LO 32.0-36.0 gm/dL INC) MCHC Normal 33.0 LAB 53446-4(LO 4.30-5.70 million/mcL INC) Red Normal Blood Cell 4.39 Count LAB 59005-2(LO 142-424 thou/mcL INC) Normal Platelet Count 170 LAB 78593-5(LO 27.0-34.0 Picograms INC) MCH Normal 27.9 LAB 88474-4(LO 4.6-10.2 thou/mcL INC) WBC Normal Count 8.9 LAB 71172-4(LO 80.0-97.0 FL INC) MCV Normal 84.6 Performed By: #### 29499-1 #### [facility] [address], [place] BNP (B -TYPE Collected: 09/23/2018 Status: F Source: [place] NATRIURETIC PEPTIDE) 7:38 AM [facility]ALTH SYSTEM REPOSITORY TYPE CODE TESTS RESULT OUT OF REFERENCE UNITS RANGE LAB 83366-0(LO 0-100 Picogram/m INC) l B Type High Natriuretic 140 Peptide Result Comment: Less than 100 CHF is unlikely Greater than 100 Possible left ventricular And less than 400 dysfunction-unlikely acute decompensation Greater than 400 Suspicious for decompensated heart failure Performed By: #### 31226-7 #### [facility] [address], [place] GFRAA Collected: 09/23/2018 Status: F Source: [place] 7:38 AM [facility] REPOSITORY TYPE CODE TESTS RESULT OUT OF RANGE REFERENCE UNITS LAB 08474-0(LO mL/min INC) GFR Normal Estimated 55 Result Comment: The MDRD equation has not been validated for those over 70 years, women, patients with serious co-morbid conditions, or with extremes of body size, muscle mass of nutritional status. Performed By: #### 06577-6, 90443-3l2, 16051-7 #### [facility] [address], [place] GFRBB Collected: 09/23/2018 Status: F Source: [place] 7:38 AM [facility] REPOSITORY TYPE CODE TESTS RESULT OUT OF RANGE REFERENCE UNITS LAB 68332-1(LO mL/min INC) GFR Normal Estimated Non 45 Performed By: #### 25093-5, 35264-3b6, 20487-3 #### [facility] [address], [place] BASIC METABOLIC PANEL Collected: 09/23/2018 Status: F Source: [place] 7:38 AM [facility] REPOSITORY TYPE CODE TESTS RESULT OUT OF RANGE REFERENCE UNITS LAB 2160-0(HANY 0.60-1.30 mg/dL NC) High Creatinine 1.52 LAB 11542-3(LO 8-20 mg/dL INC) High BUN 63 LAB 2075-0(HANY 98-107 mMol/L NC) Chloride Normal Level 98 LAB 2951-2(HANY 136-145 mMol/L NC) Low Sodium Level 133 LAB 06975-9(LO 70-110 mg/dL INC) High Glucose Level 265 LAB 37571-9(LO 6.0-18.0 mMol/L INC) Anion Normal Gap 13.0 LAB 2028-9(HANY 22-32 mMol/L NC) Carbon Normal Dioxide Level 22 LAB 2823-3(HANY 3.6-5.1 mMol/L NC) Normal Potassium Level 4.1 LAB 03904-8(LO 8.9-10.3 mg/dL INC) Low Calcium Total 8.8 Performed By: #### 26382-5, 59278-9c0, 51245-3 #### [facility] [address], [place] GLUCOSE POCT Collected: 09/23/2018 Status: F Source: [place] (UPLOADED) 5:41 AM [facility] REPOSITORY TYPE CODE TESTS RESULT OUT OF REFERENCE UNITS RANGE LAB 2340-8(LOIN 70-110 mg/dL C) High Glucose 254 POCT-LAB Result Comment: Treatment ranges and critical values established by Patient Care Services. All follow-up actions were taken by Patient Care Services. Performed By: #### 2430-8 #### [facility] POINT OF CARE CONSULTATION Observed: 09/23/2018 Status: F Source: [place] 12:00 AM [facility] REPOSITORY DICTATED BY:DAPHNEY JAUREGUI MD SERVICE DATE:09/23/2018 REASON FOR CONSULTATION: Pre-mitral valve replacement dental evaluation. HISTORY OF PRESENT ILLNESS: The patient is a 73-year-old male who presented to [facility] on September 21 with a complaint of severe shortness of breath. He is a resident of [place] and was visiting family in [place] for the holidays when he developed shortness of breath. This worsened throughout the evening and EMS was called and his oxygen saturation was 72% on room air. This improved to 92% with supplemental oxyge n. He has been diuresed and his breathing has greatly improved. The results of an echocardiogram show severe mitral regurgitation. He has undergone cardiac catheterization and is found to have patent stents to LAD and LCX. PAST MEDICAL HISTORY: Positive for chronic ischemic heart disease, hypertension, hyperlipidemia, type 2 diabetes mellitus, chronic kidney disease. ALLERGIES: Reported to DOXYCYCLINE. OROFACIAL EXAMINATION: The patient complains of no pain and reports having regular dental exams, which is evidenced by his amount of restorative dentistry that has been performed in his mouth. There are no areas of swelling or erythema. There is no evidence of periodontal disease. His teeth are all stable. The teeth all appeared to be in good repair. He is missing a couple of teeth in the maxillary right quadrant for w hich he wears a small partial. There is no mobility to the teeth and the exam is essentially benign in findings. ASSESSMENT: Teeth in good repair with regular dental maintenance. No evidence of abscess or periapical radiolucency. No evidence of periodontal disease. No tooth mobility. No complaints of pain. The patient re ceives good regular dental care. PLAN: No dental intervention is indicated. LOVE PHELAN Birthdate: 1945 #: [id number] D/09/23/2018 11:37:57 T/09/23/2018 12:10:18 VOICE JOB ID:[id number] Dougherty thanks you for the opportunity to care for your patient. DID: [id number] CONSULTATION Observed: 09/23/2018 Status: F Source: [facility] 12:00 AM [facility] REPOSITORY DICTATED BY:EMERSON CARVAJAL MD SERVICE DATE:09/23/2018 REPORT TITLE: UROLOGY CONSOLATION REFERRING PHYSICIAN: Sarah Bryan NP. REASON FOR CONSULTATION: Chronic kidney disease, pending cardiac surgery. HISTORY OF PRESENT ILLNESS: The patient is a very pleasant 73-year-old male with multiple medical problems, with a history of severe coronary artery disease, which he is status post multivessel stenting in 2009, hypertension, hype rlipidemia, type 2 diabetes mellitus as well as reportedly chronic kidney disease. He lives in [place], [place], and was in [facility] family. He does admit to significant feasting on giving with likely a significant sodium intake. He noted some difficulties with dyspnea a nd some chest discomfort the following day. This progressed to the point that he was dyspneic at rest. He was presented to the [facility] Emergency Department, where he was found to be hypoxic with oxygen saturation in the 70s. He was started urgently on BiPAP and diuresed. This did result in significant improvement. He was found to have an elevated troponin. A surface echocardiogram was obtained and revealed a flail anterior mitral valve leaflet, resulting in significant mitral regurgitation, which was felt to be severe on Doppler assessment. Given his elevated troponins, he also unde rwent cardiac catheterization yesterday. Fortunately, he was found to have patent stents from 2009 in the LAD and circumflex arteries. The proximal RCA was found to be occluded and supplied by left-to -right collaterals. This was also felt to be stable since 2009. He was found to have markedly elevated LVEDP at 30 mmHg and elevated wedge pressure at 25 mmHg. Right atrial, right ventricular and pul monary artery pressures were above normal and his cardiac output was felt to be normal, fortunately. Cardiothoracic Surgery has been consulted regarding his valvular issues. Plans for mitral valve surgery are being planned. He is pending a CLAIRE tomorrow. Given his ongoing nephrologic issues, Renal co nsultation is requested as well. The patient does tend to follow with the [facility] in [place], [place]. He is aware of some degree of chronic kidney disease. He does not recall his baseline creatinine/GFR, however, he believes that his chronic kidney disease is not a severe issue for him. He denies any fevers, chills, night sweats, weight loss, epistaxis, hemoptysis, rash, or Raynaud's phenomena. He denies any hematuria, pyuria, dysuria, urinary hesitancy or retention. PAST MEDICAL HISTORY: 1. Chronic kidney disease, likely stage III in severity, further evaluation pending. 2. Hypertension. 3. Hyperlipidemia. 4. Type 2 diabetes mellitus. 5. Coronary artery disease status post multivessel PCI in 2009 as above. OUTPATIENT MEDICATIONS: Include, 1. Insulin. 2. Plavix. 3. Vitamin D. 4. Amlodipine. 5. Aspirin. 6. Atenolol. 7. Atorvastatin. 8. Vitamin B12. 9. Glipizide. 10. Hydrochlorothiazide. 11. Metformin. 12. Lisinopril. CURRENT MEDICATIONS: Reviewed, and also include, 1. Amlodipine 10 mg daily. 2. Aspirin 81 mg per day. 3. Atorvastatin 20 mg at bedtime. 4. Carvedilol 12.5 mg b.i.d. 5. Vitamin D 5000 units daily. 6. Vitamin B12 100 mcg IM q. month. 7. Lasix 40 mg IV daily. 8. Insulin. FAMILY HISTORY: Negative for genetic renal diseases. SOCIAL HISTORY: Negative for tobacco, alcohol or illicit substance use. REVIEW OF SYSTEMS: As above, otherwise negative x12. PHYSICAL EXAMINATION: GENERAL: He appears his stated age and in no acute cardiopulmonary distress. VITAL SIGNS: Temperature 97, heart rate 66, blood pressure 159/71. HEENT: Head is normocephalic, atraumatic. Sclerae are clear. NECK: Jugular venous pulse approximately 2 cm above the sternal angle. LUNGS: Breath sounds are diminished at the bases bilaterally without wheeze, rhonchi or rales appreciated. HEART: Has a normal rate, regular rhythm, normal S1 and S2. There is a II/ holosystolic murmur, loudest at the apex radiating to the left axilla. ABDOMEN: Soft and nontender. EXTREMITIES: No peripheral edema. SKIN: Without rash. There are no embolic stigmata appreciated noted. DIAGNOSTIC STUDIES: Laboratories from today: Sodium 133, potassium 4.1, chloride 98, BUN 63, creatinine 1.52, glucose 265. Calcium is 8.8. BNP 140, improved from 233 on admission. White count was 8.9, hemoglobin 12.3, platelets 170,000. Urinalysis: Specific gravity is 1.010, pH 6.0. Urine protein present at 100 mg/dL. Blood, nitrites, and leukocytes were negative. BUN and creatinine on admission were 48 and 1.74 mg/dL respectively. BUN and creatinine on 09/21/2018 again were 51 and 1.18. IMPRESSION AND PLAN: This is a very pleasant 73-year-old male presented with complaints of chest discomfort and dyspnea, was found to be in congestive heart failure, which responded well to diuresis, fortunately. Subsequen t evaluation has revealed severe mitral regurgitation, which is being contemplated. He is noted to have persistent azotemia consistent with chronic kidney disease for which Nephrology consultation was requested. Again, the patient does report knowledge of decreased renal function. Certainly, given his multiple risk factors for chronic kidney disease, this is likely largely on the basis of hypertensive, diabeti c nephrosclerosis as well as some degree of arterionephrosclerosis superimposed on the natural decline in renal function with age. Given his multiple risk factors, his renal function is actually fairly well preserved. PLAN: At this point, pending his upcoming cardiac surgery, I would continue to hold his YING inhibitor for the time being. We will certainly continue to follow him along with you on this, I believe will be re sumed postoperatively. Now, I would dose medications for GFR of 40-50 mL/min. I will obtain a baseline urine protein/creatinine ratio. This may be affected by his recent contrast exposure. I will also obtain a baseline renal ultrasound. He has no evidence of anemia; however, i s taking B12 replacement. I will assess this and his folate levels. I will also assess him for renal mineral bone disease. Thank you very much for including me in this patient's care. I look forward to following him along with you. LOVE PHELAN Birthdate: 1945 #: [id number] D/09/23/2018 12:02:06 T/09/23/2018 12:43:46 VOICE JOB ID:[id number] Jed Velarde thanks you for the opportunity to care for your patient. CC: [facility] DID: [id number] GLUCOSE POCT Collected: 09/22/2018 Status: F Source: [facility] (UPLOADED) 9:01 PM HEALTH SYSTEM REPOSITORY TYPE CODE TESTS RESULT OUT OF REFERENCE UNITS RANGE LAB 2340-8(LOIN 70-110 mg/dL C) High Glucose 421 POCT-LAB Result Comment: Treatment ranges and critical values established by Patient Care Services. All follow-up actions were taken by Patient Care Services. Performed By: #### 2430-8 #### [facility] POINT OF CARE XR PANOREX Observed: 09/22/2018 Status: F Source: [facility] 8:37 PM HEALTH SYSTEM REPOSITORY EXAM: XR Panorex DATE: 09/22/2018 8:37 PM COMPARISON: None. INDICATION: Congestive heart failure, teeth assessment. FINDINGS/IMPRESSION: Several maxillary teeth are absent. Multiple dental fillings are noted. No definite acute dental caries or periapical lucencies. Jed Velarde thanks you for the opportunity to care for your patient. Workstation ID: [id number] - [id number] FINAL REPORT Dictated By: Reno Lainez MD 09/22/2018 20:44 Assigned Physician: Reno Lainez MD Reviewed and Electronically Signed By: Reno Lainez MD 09/22/2018 20:45 Transcribed by: CATERINA 09/22/2018 20:44 Technologist: CYNTHIA PROGRESS NOTES Observed: 09/22/2018 Status: F Source: [facility] 5:41 PM HEALTH SYSTEM REPOSITORY Patient: LOVE PHELAN MRN: [id number] Age: 73 years Sex: Male : 1945 Associated Diagnoses: None Author: Chandana Arias MD Supervising Physician Comments Documentation By: Attending Physician. Assessment Assessment and Plan Patient is a 73-year-old male with history of CAD status post stenting, hypertension, hyperlipidemia, insulin-dependent diabetes, newly diagnosed chronic kidney disease, presented with sudden onset of s hortness of breath and hypoxia, likely due to acute CHF exacerbation 1. Acute hypoxic respiratory failure secondary to severe MR found on TTE - presented on admission, due to acute CHF, patient was satting 100% on 40% FiO2 on BiPAP, I was able to wean him down to 2L na jayashree cannula and O2 sats remained in the 95-94%. BiPAP at bedtime and as needed. TTE ordered and shows severe MR that will require intervention. CTS consulted and will see the patient. 2. Acute CHF - unknown type, presented on admission, diuresing with IV Lasix, strict monitor ins and outs and daily weight, Echo ordered, cardiology consult and went to [facility] today showing patent stents to LCx and LCA with RCA occlusion that is known. Cont with aggresive medical managment. Optimize medications 3. Chronic kidney disease - presented with serum creatinine of 1.7, unknown baseline, we'll continue to monitor renal function while on Lasix, avoid nephrotoxic agent, and renally dose all meds. 4. NSTEMI secondary to Acute CHF - mildly elevated 0.07, EKG without ischemic changes, we'll continue trend troponin and underwent [facility] showing elevated levels LVEDP and HF. 5. Insulin-dependent diabetes - patient stated that he is on 64 units of Lantus twice a day, 32 units of NovoLog 3 times a day with meals, would restart Lantus and NovoLog with health the dose, we'll co ntinue 30 units of Lantus twice a day, and 15 units of NovoLog 3 times a day with meals, continue to check blood sugar was meals and at bedtime, and we'll add sliding scale insulin. Aggresive DM control at this time with o 6. Hypertension - mildly hypertensive, will continue home amlodipine, betta brisa, I will hold lisinopril given his renal function. 7. CAD status post stenting - will continue home aspirin and Plavix, statin and atenolol. HOld Plavix for any procedure 24hr Plan - IV lasix with goal -500/1L - CTS consult for evaluation of severe MR - DM control DVT prophylaxis - SCDs while in bed CODE STATUS - full code Discharge plan - to be determined Expected date of discharge 09/27/18 because IV lasix, BiPAP, and possible MR repair/replacement with planned disposition Home with HC Subjective Comments Patient seen and examiend. Pt on the way to [facility] Denies fevers, chills, nausea, vomiting, abdominal pain, chest pain or shortness of breath. Objective Last Charted Vital Signs Temperature: 97.6 (09/22 14:38) Pulse: 62 (09/22 14:38) Respiration: 18 (09/22 14:38) BP: 150/71 (09/22 14:38) Pulse Ox: 97 (09/22 14:35) Oxygen Delivery: Nasal cannula (09/22 14:35) O2 Device Flow: 5 L/min Pain Score: 0 (09/22 14:35) Intake and Output (Previous 24Hrs) I and O Summary Begin date: 09/21 17:41 End date: 09/22 17:41 24 Hour Intake: 249.80 Output: 1300.00 Balance: -1050.20 Last BM: No BM Charted Measurements Height: 108.34 cm /42.65 in (Type not Indicated) (09/21/2018 18:08:00) Weight: 103 kg/ 227 lbs 1.2 oz (Type not Indicated) (09/22/2018 05:48:00) Body Surface Area: 1.76 m2 Body Mass Index: 87.75 General: Alert and oriented x3. No acute distress. Appears documented age. Skin: Warm , dry , and intact. No icterus noted. Heart: No thrills or heaves. regular rate and rhythm. Lungs: Patient appears to be breathing comfortably. Clear to auscultation bilaterally. Abdomen/GI: Bowel sound present. Soft nontender and nondistended. Extremity/Musculoskeletal: No clubing, cyanosis or edema. Normal muscle tone. 2+ radial pulses. Pyschiatric: Normal mood. Neurologic: No focal weakness in the patient's upper or lower extremities. No gross sensory loss in the upper or lower extremities. Results Review Labs - Last 36 hours (Max 2 / lab test) CHEMISTRY Sodium 132 (09/22 05:46) 134 (09/21 09:56) Potassium 4.6 (09/22 05:46) 4.8 (09/21 09:56) Chloride 104 (09/22 05:46) 100 (09/21 09:56) CO2 21 (09/22 05:46) 20 (09/21 09:56) Glucose 314 (09/22 05:46) 312 (09/21 09:56) Glucose POCT 311 (09/22 06:05) BUN 63 (09/22 05:46) 51 (09/21 09:56) Creatinine 1.65 (09/22 05:46) 1.81 (09/21 09:56) Calcium Total 8.6 (09/22 05:46) 8.5 (09/21 09:56) Magnesium 1.7 (09/21 09:56) HEMATOLOGY WBC 8.0 (09/22 05:46) RBC 4.22 (09/22 05:46) Hb 11.8 (09/22 05:46) Hematocrit 35.0 (09/22 05:46) Platelets 163 (09/22 05:46) MCV 83.0 (09/22 05:46) MCH 28.0 (09/22 05:46) RDW 14.1 (09/22 05:46) MCHC 33.7 (09/22 05:46) Neutrophil Ab No result Monocyte Ab No result Eosinophil Ab No result Basophil Ab No result Lymphocyte Ab No result COAGULATION Partial Thromboplastin (aPTT) 79.4 Sec (09/22 05:46) 88.6 Sec (09/22 01:15) INR 1.35 (09/22 05:46) 1.22 (09/21 09:56) Prothrombintime (PT) 15.6 Sec (09/22 05:46) 14.0 Sec (09/21 09:56) CHOLESTEROLS Lipid Profile - Cholesterol 125 mg/dL (09/22 05:46) Lipid Profile - Triglyceride 219 mg/dL (09/22 05:46) HDL Cholesterol 27 mg/dL (09/22 05:46) LDL Cholesterol 54 mg/dL (09/22 05:46) VLDL 44 mg/dL (09/22 05:46) OTHER LABS Anion Gap 7.0 mMol/L (09/22 05:46) 14.0 mMol/L (09/21 09:56) Est CrCl IBW (mL/min)-RX 39.85 mL/min (09/21 09:56) 41.45 mL/min (09/21 04:14) Est CrCl AdjBW (mL/min)-R 46.42 mL/min (09/21 09:56) 48.29 mL/min (09/21 04:14) GFR Est. Non 41 mL/min (09/22 05:46) 39 mL/min (09/21 04:14) GFR Est. Berta 50 mL/min (09/22 05:46) 47 mL/min (09/21 04:14) Troponin I 0.51 ng/mL (09/22 05:46) 1.88 ng/mL (09/21 15:29) Thyroid Stimulating Hormo 1.36 mcIU/mL (09/22 05:46) B Type Natriuretic Peptid 281 Picogram/ml (09/22 05:46) 233 Picogram/ml (09/21 04:14) Hemoglobin A1c 9.0 % tl hgb (09/22 05:46) MPV 9.3 FL (09/22 05:46) 9.0 FL (09/21 04:14) Neutrophil 67.9 % (09/21 04:14) Lymphocyte 19.0 % (09/21 04:14) Monocyte 9.2 % (09/21 04:14) Eosinophil 3.0 % (09/21 04:14) Basophil 0.9 % (09/21 04:14) Neutrophil Absolute 4.50 thou/mcL (09/21 04:14) Lymphocyte Absolute 1.30 thou/mcL (09/21 04:14) Monocyte Absolute 0.60 thou/mcL (09/21 04:14) Eosinophil Absolute 0.20 thou/mcL (09/21 04:14) Basophil Absolute 0.10 thou/mcL (09/21 04:14) General Results labs and imaging reviewed Health Status Allergies Allergic Reactions (Selected) Mild Doxycycline- Hives. Medication List (Selected) Inpatient Medications Ordered AmLODIPine: 10 mg, PO, Daily Atropine 0.1 mg/mL Syringe 10 mL: 0.5 mg, IV Push, Q3min, PRN: See Comments Dextrose 50% Syringe*: 12.5 Gm, IV Push, PRN, PRN: See Comments Dulcolax*: 10 mg, Rectal, Daily, PRN: Constipation Glucagon: 1 mg, Subcut, PRN, PRN: See Comments Heparin Calculations Ref Text (CO): 1 Each, Comm, Communication Heparin Low Titration BOLUS (std dose)*: 5,000 Unit, IV Push, PRN, PRN: See Comments HumaLOG RAPID-Actin Unit, Subcut, w/meals TID Insulin Lispro Sliding Scale (HumaLOG)*: Conservative Scale, Subcut, ac+bedtime Lantus LONG-Actin Unit, Subcut, ac bkfst Lasix Inj*: 40 mg, IV Push, Daily Morphine Inj*: 2 mg, IV Push, Q3h, PRN: See Comments Nitrostat: 0.4 mg, Subl, Q5min, PRN: See Comments Tylenol*: 650 mg, PO, Q4h, PRN: Pain - Mild Vitamin D3: 5,000 Unit, PO, Daily aspirin: 81 mg, PO, Daily atorvastatin: 20 mg, PO, Daily carvedilol: 12.5 mg, PO, w/bkfst+din cyanocobalamin: 100 mcg, IM, Month ([id number]) oxygen: 1 Each, Inhalation, Daily Documented Medications Documented Insulin Lantus: 64 Unit, Subcut, BID, Each, 0 Refill(s) NovoLOG FlexPen 100 unit/ml subcutaneous solution: 32 Unit, Subcut, TID, Each, 0 Refill(s) Plavix 75 mg oral tablet: 1 Tab, PO, Daily, Each, 0 Refill(s) Vitamin D3 5000 intl units oral tablet: 1 Tab, PO, Daily, Each, 0 Refill(s) amLODipine 10 mg oral tablet: 1 Tab, PO, Daily, Each, 0 Refill(s) aspirin 81 mg oral tablet: 1 Tab, PO, Daily, Each, 0 Refill(s) atenolol 50 mg oral tablet: 1 Tab, PO, Daily, Each, 0 Refill(s) atorvastatin 20 mg oral tablet: 1 Tab, PO, Daily, Each, 0 Refill(s) cyanocobalamin 100 mcg/ml injectable solution: 1 mL, IM, Month ([id number]), Each, 0 Refill(s) glipiZIDE 10 mg oral tablet, extended release: 1 Tab, PO, BID, Each, 0 Refill(s) hydroCHLOROthiazide 25 mg oral tablet: 1 Tab, PO, Daily, Each, 0 Refill(s) lisinopril 40 mg oral tablet: 1 Tab, PO, Daily, Each, 0 Refill(s) metFORMIN 500 mg oral tablet, extended release: 4 Tab, PO, Daily, Each, 0 Refill(s) GLUCOSE POCT Collected: 09/22/2018 Status: F Source: [facility] (UPLOADED) 4:07 PM HEALTH SYSTEM REPOSITORY TYPE CODE TESTS RESULT OUT OF REFERENCE UNITS RANGE LAB 2340-8(LOIN 70-110 mg/dL C) High Glucose 306 POCT-LAB Result Comment: Treatment ranges and critical values established by Patient Care Services. All follow-up actions were taken by Patient Care Services. Performed By: #### [id number] #### [facility] POINT [facility] C[facility] GLUCOSE POCT Collected: 09/22/2018 Status: F Source: [facility] (UPLOADED) 3:12 PM [facility]ALTH SYSTEM REPOSITORY TYPE CODE TESTS RESULT OUT OF REFERENCE UNITS RANGE LAB 2340-8(LOIN 70-110 mg/dL C) High Glucose 304 POCT-LAB Result Comment: Treatment ranges and critical values established by Patient Care Services. All follow-up actions were taken by Patient Care Services. Performed By: #### [id number] #### [facility] URINALYSIS WITH Collected: 09/22/2018 Status: F Source: [facility] [employer] 1:40 PM HEALTH SYSTEM WITH REFLEX REPOSITORY TYPE CODE TESTS RESULT OUT OF RANGE REFERENCE UNITS LAB 5811-5(LO 1.002-1.030 INC) Normal Specific [place] Urine 1.010 LAB 10351-3(L NORMAL OINC) Normal Urobilinogen NORMAL Urine LAB 5803-2(LO 4.5-8.0 INC) Normal pH Urine 6.0 LAB 29670-3(L NEGATIVE OINC) Normal Nitrite Urine NEGATIVE LAB 5804-0(LO NEGATIVE INC) Protein Abnormal Urine 100MG/DL LAB 5778-6(LO YELLOW INC) Normal Color Urine YELLOW LAB 5797-6(LO NEGATIVE INC) Normal Ketones Urine NEGATIVE LAB 5767-9(LO CLEAR INC) Normal Appearance Urine CLEAR LAB 5794-3(LO NEGATIVE INC) Normal Blood Urine NEGATIVE LAB 5799-2(LO NEGATIVE INC) Normal Leukocyte Esterase Urine NEGATIVE LAB 5792-7(LO NORMAL INC) Glucose Abnormal Urine 150MG/DL LAB 68076-0(L NEGATIVE OINC) Normal Bilirubin Urine NEGATIVE Performed By: #### [id number], 45889-3 #### [facility], [address], [place] URINALYSIS MICROSCOPIC Collected: 09/22/2018 Status: F Source: [facility] 1:40 PM [facility] REPOSITORY TYPE CODE TESTS RESULT OUT OF RANGE REFERENCE UNITS LAB 5821-4x1(L 0-5 /hpf OINC) Normal WBC Urine 1 LAB 8247-9(HANY NONE/LPF NC) Abnormal Mucous RARE Urine LAB 94890-3(LO 0-5 /hpf INC) Normal RBC Urine 1 Performed By: #### [id number], 03418-9 #### [facility], [address] [place] [address] CONSULTATION Observed: 09/22/2018 Status: F Source: [facility] 1:01 PM [facility]ALTH SYSTEM REPOSITORY Patient: LOVE PHELAN MRN: [id number] Age: 73 years Sex: Male : 1945 Associated Diagnoses: None Author: Sarah Bryan CNP Supervising Physician Comments Documentation By: Nurse Practitioner. Admission Information Source of history: The patient, medical records and . History of Present Illness TANGIRNAQ: Mr. Aleman is a 73 year old male with past medical history significant for chronic ischemic heart disease s/p multivessel stenting in 2009, HTN, HLD, T2DM, CKD, and obesity who presented to [facility] on 09/21/18 with c/o shortness of breath. He was in [place] visiting family for the holidays when he noted right shoulder pain on 09/20. He states that he took Ibuprofen and this pain impro matthias. Then he went to bed and had worsening exertional dyspnea and called EMS. His oxygen saturation was 72% on room air. He was placed on oxygen and his oxygen saturation improved to 92%. He was brought to the ED for further evaluation. On arrival, his BMP was notable for SCr 1.7, BNP 233 and CXR was concerning for pulmonary edema. He was given IV Lasix with improvement in symptoms. Cardiology was con sulted and an echocardiogram was ordered. 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 Likely severe per do ppler assessment. It was also recommended to undergo cardiac catheterization due to his history of PCI. This was completed today as well and was found to have patent stents to LAD and LCx. RCA is occlud ed and supplied by left to right collaterals which is known since 2009. CTS was asked to evaluate pt for mitral valve repair/replacement. Of note, pt lives in [place] and follows with his Tile Designer there regularly. He had a routine office visit in June where it was recommended to continue with medical management. He has had no complaints at baseline. Past Medical History Active Acute CHF CHF (congestive heart failure) Diabetes High blood pressure Surgical History Surgical/Procedure Hx No active procedure history items have been selected or recorded. Health Status Allergies Allergic Reactions (Selected) Mild Doxycycline- Hives. Review of Systems Constitutional: Denies any general weakness or fatigue; Denies fever, weight loss/weight gain, chills Head/Neck: No lightheadedness/dizziness Eye: No visual disturbances or pain E/N/M/T: Teeth are in adequat repair. Denies tinnitus, hearing difficulties, dysphagia Cardiovascular: Denies chest pain; no LE edema; Denies palpatations, orthopnea, claudication Lungs: Denies shortness of breath, wheezing, hemoptysis Gastrointestinal: No abdominal pain, nausea, vomiting, diarrhea, constipation, melena, hematochezia, reflux dysphagia : No dysuria, frequency, hematuria, kidney disease Musculoskeletal: No joint pain, muscle pain, swelling Skin: No rashes or lesions Endocrine: No heat or cold intolerance, thyroid disease Immunologic: Denies frequent infections Psych: No hx of depression or anxiety Neuro: No seizures, syncope or near syncopal episodes Other: No problems with anesthesia Family History Father had CABG in his 60's Social History Smoking: former smoker, quit 10 years ago Alcohol: denies Physical Examination Last Charted Vital Signs Temperature: 98.7 (09/22 08:17) Pulse: 66 (09/22 08:17) Respiration: 18 (09/22 08:17) BP: 147/76 (09/22 08:17) Pulse Ox: 99 (09/22 08:47) Oxygen Delivery: Nasal cannula (09/22 08:47) O2 Device Flow: 5 L/min Pain Score: 0 (09/22 08:47) General: - Vital signs stable. Laying in bed. No complaints. ENMT: - No nasal discharge - Throat without erythema - Lips/mucosal lining pink and moist; Normal tongue - Teeth in adequate repair - No thyromegaly Respiratory: - Lungs clear and equal to auscultation with no wheezing, rales, or rhonchi heard bilaterally - Easy and unlabored respirations with no intercostal retractions or use of accessory muscles Cardiovascular: - RRR - S1S2 with no S3 or S4 heard - No murmur heard - No LE edema present - Palpable dorsal pedis pulses bilaterally - No carotid bruits GI: - Abdomen is soft, nontender, non distended. +Bowel sounds x 4 quadrants - No masses/oorganomegally present MS: - Grossly normal. Muscle strength and tone is equal/normal in all extremities; Neck full range of motion Integumentary: - No rashes/lesions Lympahtics: - No lymphadenopathy Neuro: - A and O x 3. No focal defecits noted. Equal strength in upper and lower extremities bilaterally. CHASE x 4 Psychiatric: - Does not appear anxious or depressed, cooperative Results Review General Results Impression and Plan Impression and Plan Diagnosis Mitral valve regurgitation (SBO70-OW I34.0, Working, Medical). Consult Thank you for this consult. Narrative Description: Mr. Love Phelan is a 73 year old male found to have severe mitral regurgitation per echocardiogram today. CTS is asked to see pt for MVR. Pt states he does see a dentist regularly and has x-rays every year. Still likely consult OMFS for dental clearance. Has had CXR and ABG obtained this AM. UA ordered. If potential for minimally invasiv e MVR, will need to obtain CTA chest/abdomen/pelvis. Pt has baseline CKD and will need to watch kidney function due to requirement of IV dye and pt had cardiac catheterization today. Will also discuss T EE to further evaluate mitral valve. Regarding timing of OR, would likely recommend pt to stay inpatient and undergo surgery prior to discharge given his presentation. However, he did receive Plavix yes terday and will need to wait minimum of 5 days prior to surgery. Will discuss case with Dr. Moreno. Attending to give final recommendations. pt seen and evaluated - plan chk CLAIRE / CTA chest/abd/pelvis anticipate MVR Saturday ACTIVATED CLOTTING Collected: 09/22/2018 Status: F Source: [facility] TIME (ACT) POCT (UPLO 12:22 PM HEALTH SYSTEM REPOSITORY TYPE CODE TESTS RESULT OUT OF RANGE REFERENCE UNITS LAB 3184-9(HANY Sec NC) Normal Activated 188 Clotting Time POCT Result Comment: Treatment ranges and critical values established by Patient Care Services. All follow-up actions were taken by Patient Care Services. Performed By: #### [id number] #### [facility]INT [facility] C[facility] CARDIAC CATHETERIZATION Observed: 09/22/2018 Status: F Source: [employer] 11:27 AM HEALTH SYSTEM REPOSITORY Cardiac Diagnostic Report Demographics Patient LINEBAUGH Date of 1945 Height 70.87 Name LOVE patel Patient [id number] Age 73 year(s) Weight 233.69 Number pounds Visit [id number] Gender Male BSA 2.25 m2 Number Date of 09/22/2018 Race Unknown BMI 32.72 Study kg/m2 # Referring Sound, Blue Diagnostic Abdoulaye Stanford Interventional Physician Physician Physician Hemalatha Barrera, Physician Christi MOLINA Diagnostic Cath Status: Urgent Procedure Procedure Type Diagnostic procedure: Left and Right Heart Cath with Coronary Injection, Moderate Sedation:, Initial 15 Minutes Indications: Non-STEMI / ACS and Valvular disease. 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 Conclusions Procedure Summary - Patent 2010 stents in the left anterior descending artery and left circumflex artery. - The proximal RCA is occluded and is supplied by left to right collaterals (known since February 2010). - Markedly elevated LVEDP at 30 mmHg. - Markedly elevated PCWP at 25 mmHg. - The right atrial, right ventricular and pulmonary arterial pressures are at the upper limit of normal. - Normal cardiac output. Recommendations - Continue treatment for decompensated heart failure. - Further recommendations regarding mitral valve repair/replacement +/- RCA revascularization per cardiac surgery team. - Lifestyle modifications and optimal medical therapy for CAD secondary prevention. Signatures Hemodynamics Condition: Rest O2 Consumption: Estimated: 271.29Heart Rate: 83 bpm Oxygen Saturation +--------+-----+----+ +---+ + !Location!pCO2 !pO2 !% Saturation !Hgb!O2 Content ! +--------+-----+----+ +---+ + !RA ! ! !55.6 ! ! ! +--------+-----+----+ +---+ + !PA ! ! !52.6 ! ! ! +--------+-----+----+ +---+ + !AO ! ! !81.8 ! ! ! +--------+-----+----+ +---+ + Pressures +-----+ + !Site !Pressure ! +-----+ + !RA !10/09 () ! +-----+ + !RA !10/08 () ! +-----+ + !RV !05/12 ,6 ! +-----+ + !RV !01/12 , ! +-----+ + !RV !29/-1 ,4 ! +-----+ + !RV !28/0 ,4 ! +-----+ + !RV !32/3 ,7 ! +-----+ + !PCW ! (11) ! +-----+ + !PA !/ (16) ! +-----+ + !PA !/15 (8) ! +-----+ + !PA !32/10 (20) ! +-----+ + !LV !131/1 ,41 ! +-----+ + !LV !132/8 ,27 ! +-----+ + !AO !127/55 (86) ! +-----+ + !LV !130/7 ,26 ! +-----+ + !AO !129/55 (86) ! +-----+ + Cardiac Output + + +------+ !Time !Cardiac Output (l/min) !Use ! + + +------+ !09/22/2018 11:37 !9.36 !False ! + + +------+ !09/22/2018 11:37 !6.28 !True ! + + +------+ !09/22/2018 11:38 !5.75 !True ! + + +------+ !09/22/2018 11:39 !6.69 !True ! + + +------+ Cardiac Output +-------+ + + + !Method !CO (l/min) !CI (l/min/m2) !SV (ml) ! +-------+ + + + !Mally !6.45 !2.9 !77.52 ! +-------+ + + + !Thermal!6.24 !2.8 !92.22 ! +-------+ + + + Valve Gradients and Areas + +--------+--------+--------+---------+ + + !Valve !Peak !Mean !Area !Index !Flow !Source ! + +--------+--------+--------+---------+ + + !Aortic !3 !3 !3.88 !1.72 !297.51 !Mally ! + +--------+--------+--------+---------+ + + !Aortic !3 !3 !3.75 !1.67 !287.82 !Thermal ! + +--------+--------+--------+---------+ + + Shunts Oxygen Values O2 Hsvcadhv351.48O2 Wcestqxlsyl408.29 Flows (l/min)Qs6.45 Vascular Resistance + +-----+-----+----+----+---------+-------+ !CO method !TSVR !SVR !TPVR!PVR !TPVR/TSVR!PVR/SVR! + +-----+-----+----+----+---------+-------+ !Qp or Qs !13.35!11.95! ! ! ! ! + +-----+-----+----+----+---------+-------+ !Thermal !13.8 !12.35!3.13!1.33!0.23 !0.11 ! + +-----+-----+----+----+---------+-------+ !Mally !13.35!11.95!3.03!1.28!0.23 !0.11 ! + +-----+-----+----+----+---------+-------+ Angiographic findings Dominance: Right Cardiac Arteries and Lesion Findings LMCA: Normal (0%).The left main coronary artery is a large caliber vessel. LAD: The LAD is a large caliber vessel that gives two diagonal arteries and extends into the apex.There is a previous stent on Mid LAD Mid subsection showing wide patency. There is a previous stent on Mid LAD Mid subsection showing wide patency. Lesion on Mid LAD: Distal subsection.55% stenosis 50 mm length. Pre procedure DONNA III flow was noted. Good run off was present.The lesion was diffuse. Comments:- Small caliber diffusely diseased vessel. LCx: The left circumflex artery is a large caliber vessel that gives one large obtuse marginal branch.There is a previous stent on Mid CX Mid subsection showing wide patency. There is a previous stent on Mid CX Mid subsection showing wide patency. RCA: The RCA is a large caliber dominant vessel. Lesion on Prox RCA: Proximal subsection.100% stenosis 20 mm length. Pre procedure DONNA 0 flow was noted. Poor run off was present.The lesion was tubular. Cardiac Collaterals - Moderate collateral flowcollateral flow from the 1st Septal to the R PDA. - Moderate collateral flowcollateral flow from the Dist CX to the R PAV. Procedure Data Procedure Date Date: 09/22/2018Start: 11:27End: 11:49 The procedure was explained in detail to the patient. Risks, complications and alternative treatments were reviewed. Written consent was obtained. Entry Locations - Retrograde Percutaneous access was performed through the Right Radial artery. A access needle Fr sheath was inserted. This was exchanged for a 6 Fr sheath Fr sheath. - Antegrade Percutaneous access was performed through the Right Basilic vein. A access needle Fr sheath was inserted. This was exchanged for a 7 Fr sheath Fr sheath. Procedure Medications - Versed I.V. 1 mg. - Fentanyl I.V. 25 mcg. - Lidocaine 2% S.Q. Rt Groin 3 ml. - Verapamil I.A. 2.5 mg. - Nitroglycerin I.A. 150 mcg. - Lidocaine 2% S.Q. 3 ml. - Heparin I.V. 5000 units. - Lasix I.V. 40 mg. Diagnostic Catheters - Bazzi [place]-Yajaira 7Fr CaseTrek-Shore TD([id number]) was used for right heart catheterization; - Cordis 6Fr JR 5 100cm ([id number]) was used for left heart catheterization and coronary angiography; - Cordis 6Fr JL 3.5 100cm ([id number]) was used for coronary angiography; Estimated blood loss: 10 ml. Contrast Material - Yncegk57 ml Fluoroscopy Time: Diagnostic: 2:00 minutes. Total: 2:00 minutes. Medical History Risk Factors The patient risk factors include:obesity, treated and uncontrolled hypertension, family history of premature CAD, other treatment for diabetes mellitus, last creatinine: 1.6 mg/dl, creatinine clearance: 63.49 ml/min, dyslipidemia, renal failure and former tobacco use ( years not smokin). Admission Data Admission Date: 09/21/2018 Admission Status: Inpatient. Coronary Tree ECHOCARDIOGRAM TXT Observed: 09/22/2018 Status: F Source: [facility] 9:08 AM [facility]ALTH SYSTEM REPOSITORY Transthoracic Echocardiography Report (TTE) Demographics Patient Name TAPAN Plasencia Date of 1945 Patient Number [id number] Age 73 year(s) Visit Number [id number] Gender Male Room Number 0229 Referring Robe Kohler MD [employer] Consultant Maco Hardin Physician RDCS Interpreting [facility] Ordering Robe Kohler MD Provider Consultants Physician Chin Gann Jr, MD Procedure Type of Study TTE procedure: Echo 2D Cmplt w M-Mode and Dopp Cmplt, Contrast study. Procedure date Date: 09/22/2018Start: 09:08 AM Technical Quality: Poor visualizationStudy Location: Echo Lab Indications: Heart Failure. Patient Status: Routine Contrast Medium: Definity. Amount - 2 ml Height: 70.87 inchesWeight: 233.69 poundsBSA: 2.25 m2 BMI: 32.72 kg/m2 BP: 147/76 mmHg CONCLUSIONS SUMMARY Normal LV size and function, EF 60-65%. Normal RV size and function. Moderate left atrial enlargement. 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 This is likely severe based on doppler assessment. Consider CLAIRE for further assessment of the mitral valve. No other significant valvular or pericardial abnormalities noted. Findings Mitral Valve Mild, diffuse mitral valve thickening present. 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 This is likely severe based on doppler assessment. No evidence of mitral valve stenosis. Aortic Valve Aortic valve appears tricuspid. Normal aortic valve structure and function. No evidence of aortic stenosis or aortic regurgitation is present by color Doppler. Tricuspid Valve Tricuspid valve appears grossly normal. Trivial tricuspid regurgitation is present by color Doppler. The RV systolic pressure could not be assessed due to poor tricuspid regurgitation Doppler signal. Pulmonic Valve Grossly normal pulmonic valve structure and function. Trivial pulmonic regurgitation is present by color Doppler. Left Atrium The left atrium is moderately dilated. Left Ventricle Contrast material was injected due to poor endocardial border definition; revenue cycle analyst could not detect 2 or more contiguous wall segments. Normal left ventricular cavity size/wall thickness/wall motion and systolic function. The left ventricular ejection fraction is 60-65% per visual estimation. Indeterminate study for assessment of left ventricular diastolic function. Right Atrium Normal right atrial size. The IVC was not well visualized. Right Ventricle Normal right ventricular structure and function. Pericardial Effusion No pericardial effusion noted. Aorta Normal aortic root dimensions at the level of the sinuses. M-Mode/2D Measurements and Calculations LV Diastolic LV Systolic Dimension: AV Cusp Separation: 1.6 cmLA Dimension: 4.98 3.47 cm Dimension: 5.1 cmAO Root cm LV Volume Diastolic: 117 Dimension: 3 cmLA Area: 28.2 LV FS:30.32 % ml cm2 LV PW LV Volume Systolic: 46.5 Diastolic: 1.17 ml cm LV EDV/LV EDV Index: 117 Septum ml/52ml/ m2 LV ESV/LV ESV Diastolic: 1.13 Index: 46.5 ml/21ml/ m2 RV Lenght:6.74 cm cm LA/Aorta: 1.7 LV Length: 8.47 cm LA volume/Index: 103.17 ml /46ml/m2 LV Area Diastolic: 34.6 cm2 LV Area Systolic: 20.6 cm2 Doppler Measurements and Calculations MV Peak E-Wave: 134 cm/s AV Peak Velocity: LVOT Peak Velocity: 104 cm/s MV Peak A-Wave: 86.8 cm/s 140 cm/s LVOT Mean Velocity: 68.3 cm/s MV E/A Ratio: 1.54 AV Peak Gradient: LVOT Peak Gradient: 4 MV Peak Gradient: 7.18 7.84 mmHg mmHgLVOT Mean Gradient: 2 mmHg AV Mean Velocity: mmHg 90.4 cm/s MV Deceleration Time: 269 AV Mean Gradient: msec 4 mmHg AV VTI: 27.6 cm MV E' Velocity: 7.18 cm/s LVOT VTI: 21.9 cm MR Velocity: 540 cm/s MV CANDIDA PISA: 0.23 cm2 MR VTI: 162 cm Alias Velocity: 30.8 cm/sPISA Radius: 0.8 cm MV CANDIDA Volumetric: 0.13 cm2 E/E Prime (Sep)18.7 E/E Prime (Lat)15.8 Signature Observed: 09/22/2018 Status: F Source: [facility] TEST RESULT EJECTION 9:08 AM HEALTH SYSTEM FRACTION REPOSITORY 60-65 GLUCOSE POCT Collected: 09/22/2018 Status: F Source: [facility] (UPLOADED) 8:16 AM HEALTH SYSTEM REPOSITORY TYPE CODE TESTS RESULT OUT OF REFERENCE UNITS RANGE LAB 2340-8(LOIN 70-110 mg/dL C) High Glucose 328 POCT-LAB Result Comment: Treatment ranges and critical values established by Patient Care Services. All follow-up actions were taken by Patient Care Services. Performed By: #### 2430-8 #### [facility] POINT OF CARE PROGRESS NOTES Observed: 09/22/2018 Status: F Source: [facility] 6:52 AM [facility]ALTH SYSTEM REPOSITORY Patient: LOVE PHELAN MRN: [id number] Age: 73 years Sex: Male : 1945 Associated Diagnoses: None Author: Guadalupe BOOKSEAMER BLINDSTITCH, Debi Assessment Received call from nurse per nurse report patient resting comfortably in bed denies chest pain at this time. Troponin still pending. ABG shows patient is hypoxic patient on 4 liters nasal cannula increa sed it to 5liters. Per nurse report patient npo for cath blood sugar 311. Order to hold insulin and recheck blood sugar in an hours. Continue to monitor. Comments BLOOD GAS POCT ABG Collected: 09/22/2018 Status: C Source: [facility] LYTES LACTATE 6:05 AM [facility] (UPLOAD) REPOSITORY TYPE CODE TESTS RESULT OUT OF REFERENCE UNITS RANGE LAB CD:885388 cm3 8165(LOIN C) AVAP Min POCT Normal 0 LAB CD:885166 Cm Water 8065(LOIN C) CPAP/PEEP POCT Normal 0 LAB 2019-8(LO 32-48 mmHg INC) pCO2 Arterial POCT Normal 40 LAB 33180-6(L 70-110 mg/dL OINC) Glucose POCT High 311 LAB 84312-1(L 10.0-20.0 mEq/L OINC) Low Anion Gap POCT 9.6 LAB 17529-7(L -2.0-3.0 mMol/L OINC) Low Base Excess POCT -3.1 LAB 12181-2(L % OINC) Carboxyhemoglobin POCT Normal 0.5 Result Comment: NON SMOKERS <1.5% SMOKERS 1.5 - 9.0% LAB CD:8791288144(LOINC) EPAP Normal POCT 0 LAB CD:3060790130(LOINC) cm3 Tidal Normal Volume POCT 0 LAB 718-7(LOINC) 13.5-1 gm/dL Low 7.5 Hemoglobin POCT 11.7 LAB 2075-0(LOINC) 98-106 mEq/L Chloride Normal POCT 105 LAB 74652-5(LOINC) VOL% O2 Normal Content POCT 14.8 LAB 2744-1(LOINC) 7.35-7 .45 Blood Normal Gas pH Arterial POCT 7.36 Result Comment: A result of UNABLE indicates the actual value could not be calculated. Treatment ranges and critical values established by Patient Care Services. All follow-up actions were taken by Patient Care Services. LAB 69179-4(LOINC) 0.5-1.6 mMol/L Normal Lactate POCT 1.5 LAB CD:8647834705(LOINC ) Resp. Normal Rate POCT 0 LAB CD:3727681773(LOINC ) IPAP Normal POCT 0 LAB 84255-3(LOINC) 3.5-5.0 mEq/L Normal Potassium POCT 4.5 LAB 2708-6(LOINC) 95.0-99.0 % Low O2 Saturation Arterial POCT 90.7 LAB 15469-3(LOINC) FiO2 Normal POCT 36.0 Result Comment: POC FI O2 CORRECTED FROM 28.0 ON 09/22/18 AT 0628 BY [id number] NOTIFIED BY RESP THERAPIST [id number] THAT FIO2 AND LPM WERE ENTERED INCORRECTLY. RESULTS CORRECTED BY THE LAB. SAS 09/22/18 06:28 LAB 23963-3(LOINC) 39-49 % Low Hematocrit POCT 36 LAB CD:5896424738(LOINC) Mode Normal POCT NCA LAB CD:5336746978(LOINC) 0-99 Pressure Normal Support POCT 0 LAB 01459-1(LOINC) LPM POCT Normal 4.0 Result Comment: POC LITER FL CORRECTED FROM 2.0 ON 09/22/18 AT 0628 BY [id number] LAB 2951-2(LOINC) 136-146 mEq/L Sodium POCT Normal 136 LAB 36788-9(LOINC) 21.0-28.0 mMol/L HCO3 Normal Arterial POCT 22.2 LAB 2614-6(LOINC) 0.2-0.6 % High Methemoglobin 0.9 POCT LAB 34348-4(LOINC) Sample Type Normal POCT Arterial LAB CD:3989075126(LOIN C) Pulse Normal Oximetry POCT 94 Clinic LAB CD:4992356661(LOIN Cm Water C) PEEP POCT Normal 0 LAB CD:6707258299(LOIN cm3 C) AVAP Max Normal POCT 0 LAB 2703-7(LOINC) 83-108 mmHg pO2 Low Arterial POCT 63 LAB 91444-0(LOINC) 94.0-99.0 % O2 Low Hemoglobin POCT 89.4 LAB 05575-6(LOINC) 1.12-1.32 mMol/L Calcium Normal Ionized POCT 1.16 LAB 2026-3(LOINC) 22.0-29.0 mMol/L Total CO2 Low Arterial POCT 20.5 LAB CD:0556482258(LOIN C) Site POCT Normal RRA Performed By: #### 61191-3t3 #### POINT OF CARE PROTHROMBIN TIME Collected: 09/22/2018 Status: F Source: [facility] 5:46 AM [facility] SYSTEM REPOSITORY TYPE CODE TESTS RESULT OUT OF RANGE REFERENCE UNITS LAB 5902-2(HANY 9.3-12.4 Sec NC) High Prothrombin Time (PT) 15.6 LAB 46604-3(LO INC) INR Normal 1.35 Result Comment: The recommended therapeutic INR range for most cardiac indications is 2.0-3.0. For high intensity therapy(ie.mechanical heart valves), the recommended range is 2.5-3.5. Performed By: #### 5902-2 #### [facility] [address], [place] PARTIAL THROMBOPLASTIN Collected: 09/22/2018 Status: F Source: [place] TIME (APTT) 5:46 AM [facility]ALTH SYSTEM REPOSITORY Order Comment: To be drawn (0600, 1400, 2200) while on heparin TYPE CODE TESTS RESULT OUT OF REFERENCE UNITS RANGE LAB 95546-4(LO 23.6-35.3 Sec INC) Partial High Thromboplastin 79.4 (aPTT) Performed By: #### 5902-2 #### [facility] [address], [place] CBC Collected: 09/22/2018 Status: F Source: [facility] 5:46 AM HEALTH SYSTEM REPOSITORY TYPE CODE TESTS RESULT OUT OF REFERENCE UNITS RANGE LAB 39900-3(LO 11.0-14.8 % INC) RDW Normal 14.1 LAB 718-7(LOIN 13.5-17.5 gm/dL C) Low Hemoglobin 11.8 LAB 28143-1(LO 32.0-36.0 gm/dL INC) MCHC Normal 33.7 LAB 60275-1(LO 27.0-34.0 Picograms INC) MCH Normal 28.0 LAB 21776-2(LO 4.30-5.70 million/mcL INC) Low Red Blood Cell 4.22 Count LAB 45691-4(LO 4.6-10.2 thou/mcL INC) WBC Normal Count 8.0 LAB 53385-6(LO 6.2-12.1 FL INC) MPV Normal 9.3 LAB 59974-6(LO 80.0-97.0 FL INC) MCV Normal 83.0 LAB 72665-0(LO 142-424 thou/mcL INC) Normal Platelet Count 163 LAB 91237-6(LO 39.0-49.0 % INC) Low Hematocrit 35.0 Performed By: #### 49097-2 #### [facility] [address], [place] BNP (B -TYPE Collected: 09/22/2018 Status: F Source: [facility] NATRIURETIC PEPTIDE) 5:46 AM HEALTH SYSTEM REPOSITORY TYPE CODE TESTS RESULT OUT OF REFERENCE UNITS RANGE LAB 22696-2(LO 0-100 Picogram/m INC) l B Type High Natriuretic 281 Peptide Result Comment: Less than 100 CHF is unlikely Greater than 100 Possible left ventricular And less than 400 dysfunction-unlikely acute decompensation Greater than 400 Suspicious for decompensated heart failure Performed By: #### 31486-8 #### [facility] [address], [place] TROPONIN I Collected: 09/22/2018 Status: F Source: [place] 5:46 AM [facility] REPOSITORY TYPE CODE TESTS RESULT OUT OF RANGE REFERENCE UNITS LAB 64616-4(LO <0.06 ng/mL INC) Abnormal Alert Troponin I 0.51 Result Comment: Previous result critical and called. Call not required for this result. Performed By: #### 08672-2 #### [facility] [address], [place] GFRAA Collected: 09/22/2018 Status: F Source: [place] 5:46 AM [facility] REPOSITORY TYPE CODE TESTS RESULT OUT OF RANGE REFERENCE UNITS LAB 05714-8(LO mL/min INC) GFR Normal Estimated 50 Result Comment: The MDRD equation has not been validated for those over 70 years, women, patients with serious co-morbid conditions, or with extremes of body size, muscle mass of nutritional status. Performed By: #### 66348-0, 26316-8d5, 3016-3, 96817-6 #### [facility] [address], [place] GFRBB Collected: 09/22/2018 Status: F Source: [place] 5:46 AM [facility] REPOSITORY TYPE CODE TESTS RESULT OUT OF RANGE REFERENCE UNITS LAB 41521-0(LO mL/min INC) GFR Normal Estimated Non 41 Performed By: #### 65656-5, 76947-2f4, 3016-3, 71104-6 #### [facility] [address], [place] THYROID STIMULATING Collected: 09/22/2018 Status: F Source: [facility] HORMONE 5:46 AM [facility] SYSTEM REPOSITORY TYPE CODE TESTS RESULT OUT OF RANGE REFERENCE UNITS LAB 3015-5(HANY 0.45-5.33 mcIU/mL NC) Thyroid Normal Stimulating 1.36 Hormone Performed By: #### 57353-3, 80584-1s3, 3016-3, 35081-4 #### [facility] [address], [place] BASIC METABOLIC PANEL Collected: 09/22/2018 Status: F Source: [facility] 5:46 AM [facility] SYSTEM REPOSITORY TYPE CODE TESTS RESULT OUT OF RANGE REFERENCE UNITS LAB 36928-3(LO 6.0-18.0 mMol/L INC) Anion Normal Gap 7.0 LAB 58403-6(LO 8.9-10.3 mg/dL INC) Low Calcium Total 8.6 LAB 2951-2(HANY 136-145 mMol/L NC) Low Sodium Level 132 LAB 2075-0(HANY 98-107 mMol/L NC) Chloride Normal Level 104 LAB 2160-0(HANY 0.60-1.30 mg/dL NC) High Creatinine 1.65 LAB 2823-3(HANY 3.6-5.1 mMol/L NC) Normal Potassium Level 4.6 LAB 75686-0(LO 70-110 mg/dL INC) High Glucose Level 314 LAB 26932-7(LO 8-20 mg/dL INC) High BUN 63 LAB 8-9(HANY 22-32 mMol/L NC) Low Carbon Dioxide Level 21 Performed By: #### 37832-1, 91866-7l4, 3016-3, 77241-4 #### [facility] [address], [place] LIPID PANEL Collected: 09/22/2018 Status: F Source: [facility] 5:46 AM [facility] REPOSITORY TYPE CODE TESTS RESULT OUT OF RANGE REFERENCE UNITS LAB 09704-2(LO <100 mg/dL INC) LDL Normal Cholesterol 54 LAB 2093-3x1(L <200 mg/dL OINC) Lipid Normal Profile - 125 Cholesterol Result Comment: Refer to the National Cholesterol Education Program ATP III cut offs for risk stratification. LAB 2091-7(LOINC) 2-38 mg/dL VLDL High 44 LAB 2571-8(LOINC) <200 mg/dL Lipid Profile High - Triglyceride 219 LAB 5-9(LOINC) >40 mg/dL HDL Low Cholesterol 27 Performed By: #### 00752-0 #### [facility] [address], [place] GLYCOHEMOGLOBIN (HGB A1C) Collected: 09/22/2018 Status: F Source: [facility] PANEL 5:46 AM [facility] SYSTEM REPOSITORY TYPE CODE TESTS RESULT OUT OF REFERENCE UNITS RANGE LAB 4548-4(HANY 4.0-6.0 % tl hgb NC) High Hemoglobin A1c 9.0 Result Comment: New method 01/25/15: Figma-Gnodal HPLC (high-performance liquid chromatography) Performed By: #### 4549-2 #### [facility], [address] [place] [address]. GLUCOSE POCT Collected: 09/22/2018 Status: F Source: [facility] (UPLOADED) 5:45 AM [facility]ALTH SYSTEM REPOSITORY TYPE CODE TESTS RESULT OUT OF REFERENCE UNITS RANGE LAB 2340-8(LOIN 70-110 mg/dL C) High Glucose 318 POCT-LAB Result Comment: Treatment ranges and critical values established by Patient Care Services. All follow-up actions were taken by Patient Care Services. Performed By: #### 2430-8 #### [facility] POINT OF CARE XR CHEST 1 VIEW Observed: 09/22/2018 Status: F Source: [facility] 5:18 AM [facility] SYSTEM REPOSITORY EXAMINATION TYPE: XR Chest 1 View DATE OF EXAM: 09/22/2018 5:18 AM HISTORY: 73-year-old male with congestive heart failure, Dyspnea. COMPARISON: Prior radiographs of 0420 hours of 09/21/2018. FINDINGS: Two AP semirecumbent portable chest radiographs redemonstrate increased interstitial densities within both lungs. Consolidation or effusion is shown. The cardiomediastinal contours are stable in configuration. IMPRESSION: No significant change as compared with the prior day's radiographs. This includes the interstitial densities within both lungs. Jed Velarde thanks you for the opportunity to care for your patient. Workstation ID: [id number] - [id number] FINAL REPORT Dictated By: Deniz Don MD 09/22/2018 05:38 Assigned Physician: Deniz Don MD Reviewed and Electronically Signed By: Deniz Don MD 09/22/2018 05:39 Transcribed by: CATERINA 09/22/2018 05:38 Technologist: RICKI PROGRESS NOTES Observed: 09/22/2018 Status: F Source: [facility] 5:17 AM [facility] REPOSITORY Patient: LOVE PHELAN MRN: ([id number] Age: 73 years Sex: Male : 1945 Associated Diagnoses: None Author: Guadalupe BOOKSEAMER BLINDSTITCH, Debi Assessment Received call from nurse per nurse report patient complaining of chest pain, STAT orders for troponin, ekg , single view chest xray , and cbc, sublingual nitroglycerin prn. Nurse to notify cardiol ogy of chest pain and to notify sound of results of testing. Continue to monitor. , ' Comments PARTIAL THROMBOPLASTIN Collected: 09/22/2018 Status: F Source: [facility] TIME (APTT) 1:15 AM [facility]ALTH SYSTEM REPOSITORY TYPE CODE TESTS RESULT OUT OF REFERENCE UNITS RANGE LAB 17735-6(LO 23.6-35.3 Sec INC) Partial High Thromboplastin 88.6 (aPTT) Performed By: #### 3173-2 #### [facility] [address], [place] GLUCOSE POCT Collected: 09/21/2018 Status: F Source: [facility] (UPLOADED) 8:48 PM HEALTH SYSTEM REPOSITORY TYPE CODE TESTS RESULT OUT OF REFERENCE UNITS RANGE LAB 2340-8(LOIN 70-110 mg/dL C) High Glucose 289 POCT-LAB Result Comment: Treatment ranges and critical values established by Patient Care Services. All follow-up actions were taken by Patient Care Services. Performed By: #### 2430-8 #### [facility] POINT OF CARE GLUCOSE POCT Collected: 09/21/2018 Status: F Source: [facility] (UPLOADED) 5:29 PM [facility]ALTH SYSTEM REPOSITORY TYPE CODE TESTS RESULT OUT OF REFERENCE UNITS RANGE LAB 2340-8(LOIN 70-110 mg/dL C) High Glucose 347 POCT-LAB Result Comment: Treatment ranges and critical values established by Patient Care Services. All follow-up actions were taken by Patient Care Services. Performed By: #### 2430-8 #### [facility] POINT [facility] C[facility] TROPONIN I Collected: 09/21/2018 Status: F Source: [facility] 3:29 PM [facility]ALTH SYSTEM REPOSITORY TYPE CODE TESTS RESULT OUT OF RANGE REFERENCE UNITS LAB 20490-4(LO <0.06 ng/mL INC) Abnormal Alert Troponin I 1.88 Result Comment: Critical value(s) on tests TROPONIN called to and read-back by [id number] , at location BARBARA by [id number] time called 09/21/18 16:41 Performed By: #### 72458-1 #### [facility] [address], [place] TROPONIN I Collected: 09/21/2018 Status: F Source: [facility] 11:57 AM [facility] REPOSITORY TYPE CODE TESTS RESULT OUT OF RANGE REFERENCE UNITS LAB 93167-3(LO <0.06 ng/mL INC) Abnormal Alert Troponin I 2.03 Result Comment: Previous result critical and called. Call not required for this result. 09/21/18 12:45 FAB Performed By: #### 43779-2 #### [facility] [address], [place] MAGNESIUM LEVEL Collected: 09/21/2018 Status: F Source: [facility] 9:56 AM [facility] SYSTEM REPOSITORY TYPE CODE TESTS RESULT OUT OF REFERENCE UNITS RANGE LAB 84145-3(LO 1.8-2.5 mg/dL INC) Low Magnesium Level 1.7 Performed By: #### 11148-8, 22670-3 #### [facility] [address], [place] BASIC METABOLIC PANEL Collected: 09/21/2018 Status: F Source: [facility] 9:56 AM [facility] REPOSITORY TYPE CODE TESTS RESULT OUT OF RANGE REFERENCE UNITS LAB 39271-8(LO 8-20 mg/dL INC) High BUN 51 LAB 2075-0(HANY 98-107 mMol/L NC) Chloride Normal Level 100 LAB 09199-5(LO 6.0-18.0 mMol/L INC) Anion Normal Gap 14.0 LAB 75042-6(LO 8.9-10.3 mg/dL INC) Low Calcium Total 8.5 LAB 2160-0(HANY 0.60-1.30 mg/dL NC) High Creatinine 1.81 LAB 2951-2(HANY 136-145 mMol/L NC) Low Sodium Level 134 LAB 2823-3(HANY 3.6-5.1 mMol/L NC) Normal Potassium Level 4.8 LAB 29449-4(LO 70-110 mg/dL INC) High Glucose Level 312 LAB 2028-9(HANY 22-32 mMol/L NC) Low Carbon Dioxide Level 20 Performed By: #### 07023-3, 30571-0 #### [facility] [address], [place] PROTHROMBIN TIME Collected: 09/21/2018 Status: F Source: [place] 9:56 AM [facility] REPOSITORY TYPE CODE TESTS RESULT OUT OF RANGE REFERENCE UNITS LAB 43547-1(HANY NC) Normal INR 1.22 Result Comment: The recommended therapeutic INR range for most cardiac indications is 2.0-3.0. For high intensity therapy(ie.mechanical heart valves), the recommended range is 2.5-3.5. LAB 5902-2(LOINC) 9.3-12.4 Sec Prothrombin High Time (PT) 14.0 Performed By: #### 5902-2, 3173-2 #### [facility] [address], [place] PARTIAL THROMBOPLASTIN Collected: 09/21/2018 Status: F Source: [place] TIME (APTT) 9:56 AM [facility] SYSTEM REPOSITORY TYPE CODE TESTS RESULT OUT OF REFERENCE UNITS RANGE LAB 14964-9(LO 23.6-35.3 Sec INC) Partial Normal Thromboplastin 33.9 (aPTT) Performed By: #### 5902-2, 3173-2 #### [facility] [address], [place] TROPONIN I Collected: 09/21/2018 Status: F Source: [place] 9:56 AM [facility] REPOSITORY TYPE CODE TESTS RESULT OUT OF RANGE REFERENCE UNITS LAB 99933-6(LO <0.06 ng/mL INC) Abnormal Alert Troponin I 1.54 Result Comment: Previous result critical and called. Call not required for this result. 09/21/18 10:50 FAB Performed By: #### 96061-0 #### [facility] [address], [place] PROGRESS NOTES Observed: 09/21/2018 Status: F Source: [place] 8:00 AM [facility] SYSTEM REPOSITORY Patient: LOVE PHELAN MRN: ([id number] Age: 73 years Sex: Male : 1945 Associated Diagnoses: None Author: Raad Gonzales MD Comments Seen and examined within 24 hours of the admission. I reviewed and repeated the core H and P,I agree with the HPI, A/P. This is 73 YOM with PMH of CAD s/p PCI with stent, HTN, HLD, DMII, CKD. Presented on 09/21 with SOB of sudden onset, found to be hypoxic Today's vitals and labs reviwed: Subjective: pleasant, stated SOB had resolved, no chest pain. On exam: comfortable, LUNG: very minimal basilar crackes. CVS: NORMAL s1, s2 no added sounds no Leg edema. , intact peripheral pulses. A/P : # Acute CHF, unknown type, POA, c/w IV lasix, daily wt, I and O qshift, pending Echo, cardio on board. -BNP in 200s, CXR with interstatial opacities. # Acute hypoxic respiratory failure, POA, 2/2 acute CHF, currently on 2 L 02 via [place] # CKD: stated baseline Cr is high. , cr 1.7. # Elevated Troponins, pending more trend, no chest pain. EKG non-ischemic # DMII: SSI, home Insulin dose slightly reduced. # HTN: home atenolol was d/poli, home Norvasc was continued and Coreg by cardio -Also takes Lisinopril and HCZT at home, both are now on hold as of possible [place] # HLD: Statins. # CAD s/p PCI , on Plavix, ASA, Statins and Coreg (newly initiated. -Full code. -SCD for DVT ppx. TROPONIN I Collected: 09/21/2018 Status: F Source: [facility] 7:52 AM [facility] SYSTEM REPOSITORY TYPE CODE TESTS RESULT OUT OF RANGE REFERENCE UNITS LAB 00967-8(LO <0.06 ng/mL INC) Abnormal Alert Troponin I 0.99 Result Comment: Critical value(s) on tests TROPI called to and read-back by [id number] , at location BARBARA by [id number] time called 09/21/18 09:05 FAB Performed By: #### 78921-7 #### [facility] [address], [place] GLUCOSE POCT Collected: 09/21/2018 Status: F Source: [place] (UPLOADED) 6:54 AM [facility] SYSTEM REPOSITORY TYPE CODE TESTS RESULT OUT OF REFERENCE UNITS RANGE LAB 2340-8(LOIN 70-110 mg/dL C) High Glucose 299 POCT-LAB Result Comment: Treatment ranges and critical values established by Patient Care Services. All follow-up actions were taken by Patient Care Services. Performed By: #### 2430-8 #### [facility] POINT OF CARE CONSULTATION Observed: 09/21/2018 Status: C Source: [facility] 6:45 AM [facility] SYSTEM REPOSITORY Patient: LOVE PHELAN MRN: ([id number] Age: 73 years Sex: Male : 1945 Associated Diagnoses: None Author: Bruce MOLINA , Christi Dumont Comments Mr. Love Phelan is a 73 yo male who p/w acute SOB and orthopnea. He has a PMH significant for CAD s/p NH and multivessel stenting 2009, HTN, HLD, DM2, CKD, carotid vascular disease, and obesity. He is in [place] visiting family for holidays and historically follows with Dr. Hemant Blanchard in [place], [place] area. He was last seen 06/2018 in routine f/u and continued med mgmt. At baseline, he does not formally exercise but maintains active lifestyle w/o baseline cardiopulmonary c/o. On 09/19, he noted right shoulder musculoskeletal pain which is chronic and took ibuprofen with relief. Yesterday 09/20 he celebrated gi with family and over-indulged in signiifcant amoun of food. He reports a chronic 2 pillow orthopnea but last night felt dyspneic when he went to bed. He then got up and felt dyspneic with exertion. EMS was notitified and O2 sats 72%. O2 placed and improved 92%. He was brought to ED. Upon arrival, VS notable for elevated BP 150s, BMP for creat 1.7, BNP 233, and troponin 0.07. CXR revealed interstitial opacities. ECG w/o acute ST-T changes. He has been given O2 and IV lasix 40 mg with subjective improvment. ECG: SR, nl axis, IVCD w/o acute ST-T changes, however concern for subtle inferior changes. Stress test 2014: No ischemia per EMR. Cardiac cath 2009: LAD 85% followed by 80% stenosis. LCx 90%. RCA 100%. Per EMR, all vessels intervened upon with PCI and stenting (details unknown). IMP -Acute heart failure; unknown LV function. -Elevated troponin; 0.07. In setting of acute CHF, renal insufficiency of unknown chronicity, and underlying CAD. -Chronic ischemic heart disease; s/p NH and multivessel stenting 2009. He had negative stress test 2014. -Carotid artery disease -HTN, uncontrolled. Pt reports difficult to control BP at baseline requiring ongoing up-titration of regimen. At home may trend 130-150s mmHg systolic. -HLD -DM2 -Renal insufficiency; creat 1.7. Unknown baseline. -Obesity PLAN -Monitor volume status; he currently remains volume up by exam however need to be cognizant of his renal fxn. He has received IV lasix 40 mg with subjective relief. -Recommend repeat IV lasix 40 mg x 1. -Trend troponin x 2 or until peak. Difficult to determine if troponinemia d/t demand or ACS. He has significant 3vCAD and subtle inferior ECG changes, thus will continue to follow and consider ischemic eval pending clinical course. -TTE for LV fxn and cardiac structure assessment. -Continue home ASA and plavix therapy. He denies any other percutaneous intervention since coronary stenting 2009 but has been maintained on DAPT. -Continue home statin. -Continue home amlodipine and change home atenolol to carvedilol for improved BP mgmt. -Hold home HCTZ and YING-i for now. -Monitor BP trends and further adjust as indicated. -Follow BMP and attempt to find out baseline creatinine to assist guiding med mgmt. -HF education. Thank you for the consult. We will continue to follow along. Plan of care developed in collaboration with Dr. Christi Tang. [id number] Christi Barrera CNP Attending attestation I have discussed this case with Christi Barrera CNP and I have independently examined the patient and have reviewed the pertinent information including vitals, labs, medications and recent imaging. Subjective:Very pleasant 73-year-old male with history of severe coronary artery disease status post multivessel PCI in 2009, diabetes, hypertension, obesity presented with significant shortness of richi th and recent right shoulder pain. Several days ago he noted shoulder pain after recent heavy lifting. Denied presentation and significant shortness of breath with worsening right shoulder pain. He maximilian es any overt chest pain or chest tightness. Initial EKG demonstrated ST depression in the lateral as well as inferior leads. There is no evidence of ST elevation. Initial troponin 0.07 but subsequently increased to 0.99. When he first arrived on BiPAP therapy and has since been weaned down to oxygen nasal cannula 2 L. Chest x-ray did demonstrate interstitial opacity in his significant pleural effusion s. He currently feels much improved after IV Lasix was administered and denies any symptoms at the time of my examination. Exam today: Gen. Alert, oriented Cardiac. RRR, systolic crescendo decrescendo murmur along left sternal border with preserved S2, no discernible JVD Lungs. CTAB, no whezzes, rales or rhonchi. No distress Abd. Soft, NT, ND, BS heart throughout Ext. No edema Assessment and plan 73-year-old male presented with shortness of breath and hypoxic respiratory failure that has responded IV Lasix. Troponin initially 0.07 is increased to 0.99 and there is evidence of high lateral wall i schemia with ST depression in 1 and aVL. He currently denies any symptoms. Overall, his symptoms are concerning for obstructive coronary disease especially given his history of multivessel PCI remotely. Recommend heparinization which I have started, repeat EKG anticipate cardiac catheterization tomorrow. I discussed the risks of cardiac catheterization including bleeding, infection, vascular damage, m yocardial infarctions, stroke, arrhythmia, and kidney disease. However, given his presentation with acute hypoxic respiratory failure non-ST wave myocardial the benefits outweigh the risks Christi Tang MD [place] [employer] HISTORY AND PHYSICAL Observed: 09/21/2018 Status: F Source: [facility] 5:52 AM [facility] REPOSITORY Patient: LOVE PHELAN Age: 73 years Sex: Male : 1945 Associated Diagnoses: None Author: Jose F Nagel MD Supervising Physician Comments Documentation By: Attending Physician. Admission Information Patient presented with sudden onset of shortness of breath History of Present Illness Patient is 73-year-old male with history of coronary artery disease status post stenting 8 years ago, insulin-dependent diabetes, hypertension, was recently diagnosed with chronic kidney disease, with m ildly elevated serum creatinine over still unknown baseline since he lives out of [place] and he is visiting his daughter over the holidays. Around 1:30 AM he woke up with right shoulder pain patient song cespedes he pulled a muscle, and he walked around the house, on suddenly when he started feeling short of breath, when EMS arrived patient sats were in the 70s, started him on BiPAP. Patient denies any a ssociated chest pain, palpitation, nausea or vomiting or diaphoresis, denies any abdominal pain, syncope or presyncope. Patient has on and off chronic lower extremity swelling. He admitted not being com pliant with his cardiac or diabetic diet recently. Patient denies smoking alcohol illegal drug abuse. in ER proBNP was elevated to 33, troponin 0.07, EKG without ischemic changes, chest history with katie ateral infiltrates most consistent with pulmonary edema. Patient's medication, allergies, past medical, surgical, and social history reviewed and updated. Patient's labs, diagnostic immaging, cardiology, microbiology and pathology results reviewed Past Medical History Active CHF (congestive heart failure) Diabetes High blood pressure Surgical History Surgical/Procedure Hx No active procedure history items have been selected or recorded. Health Status Allergies No inactive allergies have been recorded. Medication List (Selected) Inpatient Medications Ordered AmLODIPine: 10 mg, PO, Daily Dextrose 50% Syringe*: 12.5 Gm, IV Push, PRN, PRN: See Comments Dulcolax*: 10 mg, Rectal, Daily, PRN: Constipation Glucagon: 1 mg, Subcut, PRN, PRN: See Comments HumaLOG RAPID-Actin Unit, Subcut, w/meals TID Insulin Lispro Sliding Scale (HumaLOG)*: Conservative Scale, Subcut, ac+bedtime Lantus LONG-Actin Unit, Subcut, ac bkfst Lasix Inj*: 40 mg, IV Push, Daily Morphine Inj*: 2 mg, IV Push, Q3h, PRN: See Comments Plavix: 75 mg, PO, Daily Tylenol*: 650 mg, PO, Q4h, PRN: Pain - Mild Vitamin D3: 5,000 Unit, PO, Daily aspirin: 81 mg, PO, Daily atenolol: 50 mg, PO, Daily atorvastatin: 20 mg, PO, Daily cyanocobalamin: 100 mcg, IM, Month ([id number]) oxygen: 1 Each, Inhalation, Daily Documented Medications Documented Insulin Lantus: 64 Unit, Subcut, BID, Each, 0 Refill(s) NovoLOG FlexPen 100 unit/ml subcutaneous solution: 32 Unit, Subcut, TID, Each, 0 Refill(s) Plavix 75 mg oral tablet: 1 Tab, PO, Daily, Each, 0 Refill(s) Vitamin D3 5000 intl units oral tablet: 1 Tab, PO, Daily, Each, 0 Refill(s) amLODipine 10 mg oral tablet: 1 Tab, PO, Daily, Each, 0 Refill(s) aspirin 81 mg oral tablet: 1 Tab, PO, Daily, Each, 0 Refill(s) atenolol 50 mg oral tablet: 1 Tab, PO, Daily, Each, 0 Refill(s) atorvastatin 20 mg oral tablet: 1 Tab, PO, Daily, Each, 0 Refill(s) cyanocobalamin 100 mcg/ml injectable solution: 1 mL, IM, Month ([id number]), Each, 0 Refill(s) glipiZIDE 10 mg oral tablet, extended release: 1 Tab, PO, BID, Each, 0 Refill(s) hydroCHLOROthiazide 25 mg oral tablet: 1 Tab, PO, Daily, Each, 0 Refill(s) lisinopril 40 mg oral tablet: 1 Tab, PO, Daily, Each, 0 Refill(s) metFORMIN 500 mg oral tablet, extended release: 4 Tab, PO, Daily, Each, 0 Refill(s) Review of Systems Gen: no fever, no chills, no night sweats, no diaphoresis, no weight loss HENT: no sinus congestion, no ear pain, no sore throat, no rhenorrhea CV: no chest pain,no dyspnea, no orthopnea or PND, no edema. GI: no abdominal pain, nausea, vomiting, no diarrhea or constipation. : no dysuria, urgency or frequency. MS: no joint pain, swelling, or tenderness. Skin: no rash Neuro: no RAMIREZ, no Seizure activity, no focal neurologic deficit. All other Review of system are negative except of the above Family History Family Hx No family history items have been selected or recorded. Social History Social History (Tobacco Hx/Audit C) Smoking Status: Never smoked Physical Examination Vitals BP 155/57 HR 82 temp 97.5 RR 25 O2 sat 99 percent on 40% FiO2 on BiPAP Gen: Alert, oriented no no acute distress. HENT : Head: normocephalic, face symmetrical. Neck: Supple. No palpable adenopathy, no thyromegaly. Skin: Warm, dry Heart: RRR. normal S1 S2, ? murmurs, gallops or rubs appreciated. Lungs: Lung mayberry are clear to auscultation bilaterally. No wheezes, crackles or rhonchi. Abdomen: soft, non-tender. non-distended, normal bowel sounds. Ext: No peripheral edema, no cyanosis, no clubbing. Neuro: The patient is awake, alert, no new focal neurologic deficits. Results Review Selected Labs Last 36Hr Chemistry 09/21/18 04:11, Sodium Level = 135 mMol/L L 09/21/18 04:11, Potassium Level = 4.2 mMol/L 09/21/18 04:11, Chloride Level = 102 mMol/L 09/21/18 04:11, Carbon Dioxide Level = 21 mMol/L L 09/21/18 04:11, BUN = 48 mg/dL H 09/21/18 04:11, Creatinine = 1.74 mg/dL H 09/21/18 04:11, Calcium Total = 9.0 mg/dL 09/21/18 04:11, Glucose Level = 221 mg/dL H 09/21/18 04:14, GFR Estimated Non = 39 mL/min 09/21/18 04:14, GFR Estimated = 47 mL/min Hematology 09/21/18 04:11, WBC Count = 6.6 thou/mcL 09/21/18 04:11, Hemoglobin = 13.9 gm/dL 09/21/18 04:11, Hematocrit = 41.7 % 09/21/18 04:11, Platelet Count = 158 thou/mcL 09/21/18 04:12, Prothrombin Time (PT) = 13.4 Sec H 09/21/18 04:12, Partial Thromboplastin (aPTT) = 34.1 Sec 09/21/18 04:12, INR = 1.17 List of X-rays performed in last 36 hours XR Chest 1 View: 09/21/18 04:29:34 See Radiology Report for More Detail Impression and Plan Patient is a 73-year-old male with history of CAD status post stenting, hypertension, hyperlipidemia, insulin-dependent diabetes, newly diagnosed chronic kidney disease, presented with sudden onset of s hortness of breath and hypoxia, likely due to acute CHF exacerbation 1. Acute hypoxic respiratory failure - presented on admission, due to acute CHF, patient was satting 100% on 40% FiO2 on BiPAP, I was able to wean him down to 2L nasal cannula and O2 sats remained in t he 95-94%. BiPAP at bedtime and as needed. 2. Acute CHF - unknown type, presented on admission, diuresing with IV Lasix, strict monitor ins and outs and daily weight, Echo ordered, cardiology consult 3. Chronic kidney disease - presented with serum creatinine of 1.7, unknown baseline, we'll continue to monitor renal function while on Lasix, avoid nephrotoxic agent, and renally dose all meds. 4. Elevated troponin - mildly elevated 0.07, EKG without ischemic changes, we'll continue trend troponin. 5. Insulin-dependent diabetes - patient stated that he is on 64 units of Lantus twice a day, 32 units of NovoLog 3 times a day with meals, would restart Lantus and NovoLog with health the dose, we'll co ntinue 30 units of Lantus twice a day, and 15 units of NovoLog 3 times a day with meals, continue to check blood sugar was meals and at bedtime, and we'll add sliding scale insulin. 6. Hypertension - mildly hypertensive, will continue home amlodipine, betta brisa, I will hold lisinopril given his renal function. 7. CAD status post stenting - will continue home aspirin and Plavix, statin and atenolol DVT prophylaxis - SCDs while in bed CODE STATUS - full code Discharge plan - to be determined Impression and Plan Diagnosis Acute CHF (JRB20-QT I50.9, Working, Medical). XR CHEST 1 VIEW Observed: 09/21/2018 Status: F Source: [facility] 4:29 AM [facility] SYSTEM REPOSITORY EXAMINATION TYPE: XR Chest 1 View DATE OF EXAM : 09/21/2018 4:29 AM HISTORY: Cough , shortness of breath COMPARISON: NONE FINDINGS: Cardiac silhouette is within normal limits. There are some peripheral reticular interstitial opacities. There is no lobar consolidation or pleural effusion. IMPRESSION: Reticular interstitial opacities. In the absence of comparison studies it is unclear if this is mild edema, infection, or fibrosis. Jed Velarde thanks you for the opportunity to care for your patient. Workstation ID: [id number] FINAL REPORT Dictated By: Sanju Valdez MD 09/21/2018 04:31 Assigned Physician: Sanju Valdez MD Reviewed and Electronically Signed By: Sanju Valdez MD 09/21/2018 04:32 Transcribed by: CATERINA 09/21/2018 04:31 CBC WITH DIFFERENTIAL Collected: 09/21/2018 Status: F Source: [facility] 4:14 AM [facility] REPOSITORY TYPE CODE TESTS RESULT OUT OF REFERENCE UNITS RANGE LAB 68402-3(LO 0.0-12.0 % INC) Normal Monocyte 9.2 LAB 742-7(LOIN 0.00-0.90 thou/mcL C) Normal Monocyte 0.60 Absolute LAB 718-7(LOIN 13.5-17.5 gm/dL C) Normal Hemoglobin 13.9 LAB 26205-1(LO 11.0-14.8 % INC) RDW Normal 14.7 LAB 08076-0(LO 22.0-44.0 % INC) Low Lymphocyte 19.0 LAB 731-0(LOIN 1.00-4.80 thou/mcL C) Normal Lymphocyte 1.30 Absolute LAB 48407-7(LO 4.30-5.70 million/mcL INC) Red Normal Blood Cell 4.99 Count LAB 05175-2(LO 32.0-36.0 gm/dL INC) MCHC Normal 33.3 LAB 77141-0(LO 4.6-10.2 thou/mcL INC) WBC Normal Count 6.6 LAB 01105-9(LO 27.0-34.0 Picograms INC) MCH Normal 27.9 LAB 751-8(LOIN 1.80-7.70 thou/mcL C) Normal Neutrophil 4.50 Absolute LAB 29831-3(LO 40.0-70.0 % INC) Normal Neutrophil 67.9 LAB 71820-4(LO 80.0-97.0 FL INC) MCV Normal 83.7 LAB 02698-6(LO 6.2-12.1 FL INC) MPV Normal 9.0 LAB 22484-6(LO 0.0-2.0 % INC) Normal Basophil 0.9 LAB 704-7(LOIN 0.00-0.20 thou/mcL C) Normal Basophil 0.10 Absolute LAB 79066-6(LO 39.0-49.0 % INC) Normal Hematocrit 41.7 LAB 70142-5(LO 0.0-7.0 % INC) Normal Eosinophil 3.0 LAB 711-2(LOIN 0.00-0.70 thou/mcL C) Normal Eosinophil 0.20 Absolute LAB 12196-6(LO 142-424 thou/mcL INC) Normal Platelet Count 158 Performed By: #### 55530-7 #### [facility] [address], [place] PROTHROMBIN TIME Collected: 09/21/2018 Status: F Source: [facility] 4:14 AM [facility]ALTH SYSTEM REPOSITORY TYPE CODE TESTS RESULT OUT OF RANGE REFERENCE UNITS LAB 5902-2(HANY 9.3-12.4 Sec NC) High Prothrombin Time (PT) 13.4 LAB 65903-2(LO INC) INR Normal 1.17 Result Comment: The recommended therapeutic INR range for most cardiac indications is 2.0-3.0. For high intensity therapy(ie.mechanical heart valves), the recommended range is 2.5-3.5. Performed By: #### 5902-2, 3173-2 #### [facility] [address], [place] PARTIAL THROMBOPLASTIN Collected: 09/21/2018 Status: F Source: [facility] TIME (APTT) 4:14 AM HEALTH SYSTEM REPOSITORY TYPE CODE TESTS RESULT OUT OF REFERENCE UNITS RANGE LAB 94712-3(LO 23.6-35.3 Sec INC) Partial Normal Thromboplastin 34.1 (aPTT) Performed By: #### 5902-2, 3173-2 #### [facility] [address], [place] GFRAA Collected: 09/21/2018 Status: F Source: [employer] 4:14 AM HEALTH SYSTEM REPOSITORY TYPE CODE TESTS RESULT OUT OF RANGE REFERENCE UNITS LAB 76432-8(LO mL/min INC) GFR Normal Estimated 47 Result Comment: The MDRD equation has not been validated for those over 70 years, women, patients with serious co-morbid conditions, or with extremes of body size, muscle mass of nutritional status. Performed By: #### 01753-2, 48930-8x4, 12409-2, 33047-1 #### [facility] [address], [place] GFRBB Collected: 09/21/2018 Status: F Source: [facility] 4:14 AM [facility] REPOSITORY TYPE CODE TESTS RESULT OUT OF RANGE REFERENCE UNITS LAB 64179-2(LO mL/min INC) GFR Normal Estimated Non 39 Performed By: #### 72139-0, 55292-1z7, 99136-7, 10856-1 #### [facility] [address], [place] BASIC METABOLIC PANEL Collected: 09/21/2018 Status: F Source: [facility] 4:14 AM [facility] REPOSITORY TYPE CODE TESTS RESULT OUT OF RANGE REFERENCE UNITS LAB 2160-0(HANY 0.60-1.30 mg/dL NC) High Creatinine 1.74 LAB 71450-9(LO 6.0-18.0 mMol/L INC) Anion Normal Gap 12.0 LAB 2028-9(HANY 22-32 mMol/L NC) Low Carbon Dioxide Level 21 LAB 2951-2(HANY 136-145 mMol/L NC) Low Sodium Level 135 LAB 2075-0(HANY 98-107 mMol/L NC) Chloride Normal Level 102 LAB 87611-2(LO 8.9-10.3 mg/dL INC) Calcium Normal Total 9.0 LAB 82919-2(LO 70-110 mg/dL INC) High Glucose Level 221 LAB 20176-4(LO 8-20 mg/dL INC) High BUN 48 LAB 2823-3(HANY 3.6-5.1 mMol/L NC) Normal Potassium Level 4.2 Performed By: #### 59609-4, 83391-6s1, 63856-6, 83958-7 #### [facility] [address], [place] TROPONIN I Collected: 09/21/2018 Status: F Source: [facility] 4:14 AM [facility] REPOSITORY TYPE CODE TESTS RESULT OUT OF REFERENCE UNITS RANGE LAB 28366-5(HANY <0.06 ng/mL NC) High Troponin I 0.07 Performed By: #### 28280-4, 50568-4d9, 72202-9, 59071-0 #### [facility] [address], [place] BNP (B -TYPE Collected: 09/21/2018 Status: F Source: [facility] NATRIURETIC PEPTIDE) 4:14 AM HEALTH SYSTEM REPOSITORY TYPE CODE TESTS RESULT OUT OF REFERENCE UNITS RANGE LAB 30833-9(LO 0-100 Picogram/m INC) l B Type High Natriuretic 233 Peptide Result Comment: Less than 100 CHF is unlikely Greater than 100 Possible left ventricular And less than 400 dysfunction-unlikely acute decompensation Greater than 400 Suspicious for decompensated heart failure Performed By: #### 05147-1 #### [facility] [address], [place] ED PHYSICIAN NOTES Observed: 09/21/2018 Status: F Source: [facility] 4:12 AM [facility] REPOSITORY Patient: LOVE PHELAN Age: 73 years Sex: Male : 1945 Associated Diagnoses: None Author: Raudel AMBRIZ , Christi Bojorquez Basic Information Additional information: Chief Complaint from Nursing Triage Note : Chief Complaint-Triage 09/21/2018 04:03 EST Chief Complaint-Triage Diff breathing . HISTORY OF PRESENT ILLNESS: The patient is a 73-year-old male presents for evaluation of difficulty breathing. Patient has possible history of myocardial infarction ??2 for which patient states she has 4 stents placed. He states that approximately 1 AM this morning he developed sudden onset shortness of breath. EMS was activated and they arrived and patient was satting 77% on room air. They placed hi m on CPAP and transferred to this facility. Patient states that on this device he is breathing a little bit better. He states he is not had any chest pain or pressure. He states she's had a nonproductiv e cough for the past 2 days. He has not had any fever or chills and this is not happened to him in the past REVIEW OF SYSTEMS/PAST MEDICAL HISTORY: all other systems reviewed are and are otherwise negative. Nursing triage notes were reviewed by me and I agree. PAST MEDICAL AND SOCIAL HISTORY: PHYSICAL EXAM: CONSTITUTIONAL:non-toxic HEAD: Atraumatic. EYES: No conjunctival injection, no icterus. EARS: External ears appear normal. NOSE: Nose appears normal. NECK: Trachea is midline. RESPIRATORY: Diminished breath sounds at the bases with faint crackles CARDIOVASCULAR:rr no murmur GASTROINTESTINAL: Abdomen is soft and nontender. NEUROLOGICAL: Awake, alert and oriented. Neurologically nonfocal. PSYCHOLOGICAL: The patient's mood and manner are appropriate. INTEGUMENTARY: Skin is warm and dry. No evidence of rash. TREATMENT and MEDICAL DECISION MAKING: I saw and evaluated the patient. I have reviewed the chief complaint, triaged: past medical/surgical, family, and social history. Patient's chest x-ray shows bilateral reticular infiltrates which could be suggestive of edema versus infection. Patient is afebrile without leukocytosis and in this setting I do believe that this is ed trey. I treated the patient with 40 mg of Lasix for CHF. Patient remained on BiPAP and is breathing much more comfortably in this setting 96-99%. Other lab tests look unremarkable with exception of acute kidney injury has his creatinine is 1.74. Patient will be left on BiPAP for now and I will reassess and he will be admitted to the intermediate care of this hospital. IMPRESSION: 1. Acute CHF 2. Acute kidney injury The patient's pulse oximetry was interpreted as 98% on BiPAP, normal Health Status Allergies: No active allergies have been recorded.. Past Medical/ Family/ Social History Surgical history: No active procedure history items have been selected or recorded.. Family history: No family history items have been selected or recorded.. Physical Examination Vital Signs Vital Signs/Measurements 09/21/2018 04:03 EST Temperature 97.5 Degrees F NML Temperature Route Oral Pulse Rate 82 BPM NML Respiratory Rate 25 Br PM >HHI Pulse Oximetry 98 % NML Oxygen Delivery BiPAP non-invasive Systolic BP 155 mm Hg HI Diastolic BP 57 mm Hg LOW NIBP Method-CC Cuff Weight 106.3 kg Weight Type Pt reported Weight Lb 234 lbs Weight Oz 5.63 oz Height 180.3 cm Height Type Pt reported Height Ft 5 ft Height in 10.98 Inch BSA 2.26 m2 Body Mass Index 32.7 kg/m2 . CONSULTATION Observed: 09/21/2018 Status: F Source: [facility] 12:00 AM [facility] SYSTEM REPOSITORY DICTATED BY: CHRISTI BARRERA NP SERVICE DATE: 09/21/2018 DATE OF CONSULTATION: 05/21/2018 REASON FOR CONSULTATION: CHF, elevated troponin. PRIMARY BODY SHOP MANAGER: Hemant Blanchard MD PRIMARY CARE PHYSICIAN: Unknown. HISTORY OF PRESENT ILLNESS: The patient is a 73-year-old gentleman who presents to [facility] with acute shortness of breath and orthopnea. He has a past medical history significant for chronic ischemic heart dise ase, status post prior myocardial infarction and multivessel stenting in 2009, which per limited documentation appears to be RCA, which was 100% occluded, 80-85% serial lesions in the LAD, and circumfle x as well. Historically preserved LV systolic function. He had subsequent cardiac stress test in 2014. Otherwise, not require any type of an ischemic evaluation. Other comorbidities include benign e ssential hypertension, hyperlipidemia, diabetes, CKD, carotid vascular disease and obesity. He resides in the [facility]; however, is in [place] visiting his family for the holidays and has historically followed with his evp as noted above. He reports no cardiopulmonary complaints at baseline. He was last seen by his primary evp in June in routine office visit and was recommended ongoing medical management. He does not formally exercise, but is able to ascend 1 f light of stairs and perform household duties without any type of issues. On 09/19/2018 he noted right shoulder musculoskeletal chest pain, which was chronic and took ibuprofen with relief. Initially on 09/20/2018 he celebrated second Thanksgiving with his family and over in dulged in a significant amount of food. He reports a chronic 2-pillow orthopnea last night, felt dyspneic when he went to bed, eating out of control, worsening exertional dyspnea and notified EMS and u armand arrival was noted to have his O2 sats 72% on room air, oxygen therapy, was placed in his status did improve 92% per report. He was brought to the ED for further evaluation. On arrival, vital signs were relatively stable, although his blood pressure was significantly elevated in the 150-160 systolic. BMP was notable for creatinine 1.7. BNP 233 and troponin 0.07. Chest x- ray revealed interstitial opacities with concern for CHF. ECG without acute ST- T wave changes. He has been given oxygen therapy as well as IV Lasix 40 mg with subjective improvement. We have been asked to further evaluate accordingly. REVIEW OF SYSTEMS: Pertinent positives and negatives as mentioned above, otherwise denies chest pain, pressure, tightness or palpitations. Endorses shortness of breath, dyspnea on exertion, orthopnea. Denies syncope or presyncope. Denies lower extremity edema, claudication, hematochezia, hematemesis, melena, hemoptysis, hematuria, bleeding from the gums. Denies nausea, vomiting, diarrhea or constipation. Denies uni lateral weakness, TIA or stroke-like symptoms. Endorses chronic joint pain, back pain. Denies hematuria, dysuria or skin rash. PAST MEDICAL HISTORY: Chronic ischemic heart disease, hypertension, hyperlipidemia, diabetes, CKD, carotid artery disease and obesity. PAST SURGICAL HISTORY: Multivessel stenting as noted above. SOCIAL HISTORY: He is a reformed smoker, quitting over 10 years ago. 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 He resides in [facility] with his . FAMILY HISTORY: Father had bypass surgery in his mid-60s and from MVA in his 80s. Mother in her 60s due to complications of cancer. He is the oldest of 3 or 4 siblings, 1 with a heart murmur. He has 3 children who are alive and well. ALLERGIES: DOXYCYCLINE. HOME MEDICATIONS: 1. Amlodipine 10 mg daily. 2. Aspirin 81 mg daily. 3. Atenolol 50 mg daily. 4. Atorvastatin 20 mg daily. 5. Vitamin D. 6. Plavix 75 mg daily. 7. Vitamin B12. 8. Glipizide 9. Hydrochlorothiazide 25 mg daily. 10. Insulin as directed. 11. Lisinopril 40 mg daily. 12. Metformin. PHYSICAL EXAMINATION: VITAL SIGNS: Temperature 97.5, heart rate 82, respiratory rate 24, blood pressure 135/75 GENERAL: The patient is alert, calm, in no acute distress. HEENT: Grossly benign. CHEST: Respiratory effort is unlabored. Lung sounds diminished bibasilar. CARDIOVASCULAR: PMI nondisplaced. Regular rate and rhythm. S1, S2 normal with soft systolic murmur noted at apex. No rubs or gallops appreciated. No JVD or HJR. Carotids 2+. ABDOMEN: Obese, soft, nontender, nondistended. EXTREMITIES: No significant edema. Pulses 2+. SKIN: Warm and dry, no cyanosis. PSYCHIATRIC: Mood and affect appear stable. NEUROLOGIC: Alert and oriented without obvious focal deficit. DIAGNOSTIC DATA: ECG, normal axis, intraventricular conduction delay without acute ST-T changes. However, there are subtle changes in the inferior leads, some ST depression. Repeat ECG pending. Stress test per outside facility report has been obtained and no ischemia was appreciated. Cardiac catheterization in 2010, LAD 85%, followed by 80% stenosis, status post PCI stent, circumflex 90% stenosis, status post PCI and stent RCA 100%, status post PCI and stent per the EMR, all vessels were intervened upon. However, details unknown specifics. Chest x-ray: Bilateral opacities. LABORATORY DATA: White blood cell count 6.6, hemoglobin 13.9, platelets 158. Sodium 135, potassium 4.2, BUN 48, creatinine 1.7. BNP 233, troponin 0.07. INR 1.17. IMPRESSION: 1. Acute heart failure, unknown LV function, suspected secondary to dietary noncompliance. 2. Elevated troponin initially 0.07 in the setting of acute CHF, renal insufficiency of unknown chronicity and underlying coronary artery disease 3. Chronic ischemic heart disease, status post NH and multivessel stenting in 2009, he had negative stress test in 2014. 4. Carotid artery disease. 5. Hypertension, uncontrolled. The patient reports difficult to control blood pressure baseline, requiring ongoing up titration of regimen at home may trend 130 to 150 mmHg systolic. 6. Hyperlipidemia. 7. Diabetes type 2. 8. Renal insufficiency, creatinine 1.7, unknown baseline. 9. Obesity. PLAN: 1. At this time, I plan to monitor his volume status as he currently remaina volume up by exam; He has received IV Lasix 40 mg and subjectively has improved. I recommend repeating this dose x1 now an d follow clinical response. 2. Continue to trend his troponins x2 or until peaks. At this time, unclear if this is acute coronary syndrome or secondary to demand; however, he does have some subtle ST changes of his inferior lead s and given his underlying ischemic heart disease, need to consider this accordingly 3. We will obtain a 2D echocardiogram for LV function and cardiac structure assessment. 4. Continue home aspirin and Plavix therapy. Denies any other percutaneous interventions since coronary stenting in 2009, but has been maintained on dual antiplatelet therapy. 5. We will continue home statin. 6. He is only on amlodipine. We will change his home atenolol to carvedilol for improved blood pressure management. 7. Hold his home hydrochlorothiazide and YNIG inhibition for now and follow renal function. 8. Monitor blood pressure trends and further adjustment as indicated. 9. Heart failure education. 10. At this time, we will repeat an ECG. Given subjective improvement continue to follow the troponin trend and consider ischemic evaluation based off this. We thank you for this consultation. We will continue to follow along. Plan of care was developed in collaboration with Dr. Christi Tang. LOVE PHELAN Birthdate: 1945 D/09/21/2018 10:22:04 T/09/21/2018 11:12:59 VOICE JOB ID: [id number] Jed Velarde thanks you for the opportunity to care for your patient. DID: [id number] CARDIOLOGY VISIT Observed: 07/15/2018 Status: F Source: [place] 11:39 AM [facility] [facility] [address] [place] [address] OFFICE VISIT Date of Service: 07/15/18 MR#: [id number] Acct: [id number] Name: LOVE PHELAN Rep #: [id number] : 1945 Provider: Heamnt Blanchard MD Age/Sex: 73/M Location: [facility] Status: Signed HPI HPI Chief Complaint: Follow up visit Details: LOVE PHELAN, is a 73 M who presents to the office today for a cardiovascular follow-up. He has a history of coronary artery disease with multivessel angioplasty in 2009. Heart catheterization at that time demonstrated a totally occluded RCA, circumflex with tubular 90% stenosis, LAD had discrete 85% stenosis followed by an 80% stenosis. He had angioplasty and stenting of these vessels. Medical therapy was recommended for the other vessels.He also has a history of hypertension and hyperlipidemia. He does not have any chest discomfort/heaviness/tightness. His exercise tolerance is stable for his age. He does not have any worsening symptoms of shortness of breath. He denies any PND. He does not have any orthopnea. He does not have any symptoms of congestive heart failure. He does not have any palpitations that he is aware of. He does not have any lightheadedness or dizziness. He does not have any near-syncope or syncope. He does not have any lower extremity edema. He does not have any symptoms of claudication. His physical exam today demonstrates clear lung mayberry regular rate and rhythm and no pedal edema his blood pressure looks under good control. He is tolerating his medications much better. 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: No Accompanied by: Is patient in pain?: No Allergies doxycycline Allergy (Verified 07/15/18 11:22) hives Medications amlodipine 10 mg tablet 10 mg PO QDAY 12/11/17 [History Confirmed 07/15/18] aspirin 81 mg tablet,delayed release 81 mg PO QDAY tab 12/11/17 [History Confirmed 07/15/18] clopidogrel 75 mg tablet 75 mg PO QDAY tab 12/11/17 [History Confirmed 07/15/18] lisinopril 40 mg tablet 40 mg PO QDAY 12/11/17 [History Confirmed 07/15/18] metformin 500 mg tablet See Label Instructions PO .Q AM tab 12/11/17 [History Confirmed 07/15/18] atenolol 50 mg tablet 50 mg PO QDAY 12/18/17 [History Confirmed 07/15/18] atorvastatin 20 mg tablet 40 mg PO QDAY tab 12/18/17 [History Confirmed 07/15/18] insulin aspart U-100 100 unit/mL subcutaneous cartridge See Label Instructions SC BID 12/18/17 [History Confirmed 07/15/18] insulin glargine (U-100) 100 unit/mL (3 mL) subcutaneous pen See Label Instructions SC QDAY 12/18/17 [History Confirmed 07/15/18] hydrochlorothiazide 25 mg tablet 25 mg PO QDAY #90 tab 02/20/18 [Rx Confirmed 07/15/18] cholecalciferol (vitamin D3) 1,000 unit capsule 1,000 unit PO DAILY 07/15/18 [History Confirmed 07/15/18] [facility] Medical History Atherosclerotic 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[place] coronary artery without angina pectoris (Chronic) Diabetes mellitus type II, controlled (Chronic) Hyperlipidemia (Chronic) Hypertension (Chronic) Ischemic cardiomyopathy (Chronic) Occlusion and stenosis of right carotid artery (Chronic) Old myocardial infarction (Resolved) Surgical History Presence of coronary angioplasty implant and graft (Chronic) Family History Father CAD (coronary artery disease) Hx CABG x4 vessels Myocardial infarction, Onset Age: 50 Mother Breast cancer Social History Smoking Status: Former smoker how long ago did patient quit smokin alcohol intake: current Alcohol type: beer substance use type: does not use caffeine: Yes Type: coffee what type of physical activity do you participate in: other details: occasional rowing machine, biking frequency: other details: occasional rowing machine, biking duration: other details: occasional rowing machine, biking seatbelt use: always do you feel safe at home: Yes ROS Const Const: Negative for fatigue, weakness, night sweats, excessive sweating, frequent falls, headache(s) or daytime sleepiness Eyes Eyes: Negative for loss of peripheral vision, transient loss of vision, blind spots, double vision or blurry vision ENT ENT: Negative for headache(s), dizziness, balance problems, Nosebleed/epistaxis, tongue swelling or lip swelling Cardio Chest Pain: No Palpitations: No Edema: None Muscle aches with walking: None Resp Respiratory: Negative for SOB at rest, SOB orthopnea\SOB lying down, Cough, paroxysmal nocturnal dyspnea or SOB with activity GI GI: Negative nausea, vomiting, heartburn, black,tarry stools or bright, red blood in stools : Negative for hematuria Musc Musc: Negative for balance problems, muscle aches/ myalgia, muscle weakness or joint pain Skin Skin: Negative non-healing lesions, unusual bruising or rash Neuro Neuro: Negative for weakness, frequent falls, headache(s), double vision, dizziness, lightheadedness, orthostatic symptoms, blurry vision or lack of coordination John Hematologic/Lymphatic: Negative for easy bruising or easy bleeding Endo Endo: Negative for fatigue, excessive sweating, cold intolerance, heat intolerance, increased thirst/drinking or hair loss Psych Psych: Negative for anxiety or depression Allergy Allergy/Immunology: Negative for throat swelling, Negative for tongue swelling, Negative for hives, Negative for rash, Negative for lip swelling Cardiology Exam Const Appearance: cooperative, healthy appearing, well developed, well groomed and no acute distress Nutritional Appearance: well nourished and average body habitus Orientation: alert, awake and oriented x3 Head Head: normal to inspection, normocephalic and atraumatic Ears: hearing grossly normal bilaterally and external ears normal Nose: external nose normal, nasal mucous membranes and turbinates normal, nares normal, septum normal, no nasal discharge Face and Sinus: face symmetric Mouth: oral mucosae normal, tongue normal, oropharynx normal and moist mucous membranes Teeth and gingiva: dentition normal Throat: posterior oropharynx normal, tonsils normal and uvula midline Eyes General: appearance normal, both eyes and all related structures Eyelids: eyelids normal Conjunctivae: conjunctivae normal Pupils: PERRL, normal by confrontation and accommodation normal EOM: EOM intact bilaterally Neck Neck: normal visual inspection, trachea midline and no JVD JVD: +5 Carotids: normal carotid upstroke and bounding pulses Chest Chest inspection: normal inspection of the chest, symmetric chest movement and normal respiratory effort Auscultation: Bilateral: Clear to Auscultation Cardio Palpation: normal PMI Rate: regular rate Rhythm: regular rhythm Heart sounds: S1 normal, S2 normal and normal, physiologic split S2; negative rub, gallop or murmur GI GI: normal to inspection, soft, no hepatosplenomegaly and bowel sounds present Neuro General: alert, awake, oriented x3, no focal sensory deficit, gait normal and moves all extremities Skin Skin: no rashes or lesions noted Extremities Pulses: Normal: Right Femoral Pulse, Left Femoral Pulse, Right Dorsalis Pedis Pulse, Left Dorsalis Pedis Pulse, Right Posterior Tibial Pulse, Left Posterior Tibial Pulse, Right Radial Pulse, Left Radial Pulse Lower Extremity Edema: None: Bilateral Musculoskel Musculoskeletal: No joint tenderness Psych Psychological: normal affect Assessment AND Plan 1. CAD (coronary artery disease) I25.10 Plan He does have a history of coronary artery disease and appears to be stable at this particular time without any anginal spells. His last catheterization was as noted above. At this time I would suggest that we continue with current medical therapy without making any changes to his medications. He did have a stress test in 2014 we did not demonstrate any evidence of ischemia and I would recommend performing one at his next visit next year. 2. Benign hypertension I10 Plan His blood pressure appears to be under better control with the current medication adjustments. No other changes will be made. 3. Hyperlipidemia E78.5 Plan He does have a history of hyperlipidemia and he will remain on his current dose of statin. His most recent lipid profile from November demonstrated total cholesterol of 94, HDL of 29 and LDL of 27. He will remain on the same dose with no changes. Plan Detail Follow Up 6 Months (mmm) Coding Level of Care Code Off vis,est,level 3 Diagnoses CAD (coronary artery disease) I25.10 Benign hypertension I10 Hyperlipidemia E78.5 Coding Level of Care Code Off vis,est,level 3 Diagnoses CAD (coronary artery disease) I25.10 Benign hypertension I10 Hyperlipidemia E78.5 07/15/18 1139 <Electronically signed by Hemant Blanchard MD> Date Hemant Blanchard MD Cosigner Signature: Date (if applicable) CC: Akira Pacheco MD CARDIOLOGY VISIT Observed: 12/18/2017 Status: F Source: [place] REPORT 6:00 PM [facility] [facility] [address] [place] [address] OFFICE VISIT Date of Service: 12/18/17 MR#: [id number] Acct: [id number] Name: LOVE PHELAN Rep #: [id number] : 1945 Provider: Alma Delia Aquino Age/Sex: 72/M Location: [facility] Status: Signed [facility] Details: LOVE PHELAN, is a 72 M who presents to the office today for a cardiovascular follow-up. He has a history of coronary artery disease with multivessel angioplasty in 2009. Heart catheterization at that time demonstrated a totally occluded RCA, circumflex with tubular 90% stenosis, LAD had discrete 85% stenosis followed by an 80% stenosis. He had angioplasty and stenting of these vessels. Medical therapy was recommended for the other vessels. He also has a history of hypertension and hyperlipidemia. He has been having issues with his BP readings. At his last visit we added HCTZ. [facility] He stopped his Atenolol and added Coreg, this made him extremely dizzy. They then increased his atenolol, this caused increase SOB and chest pain. He is back on his medications that he was on previous to seeing us. He does not have any chest discomfort/heaviness/tightness. His exercise tolerance is stable for his age. He does not have any worsening symptoms of shortness of breath. He denies any PND. He does not have any orthopnea. He does not have any symptoms of congestive heart failure. He does not have any palpitations that he is aware of. He does not have any lightheadedness or dizziness. He does not have any near-syncope or syncope. He does not have any lower extremity edema. He does not have any symptoms of claudication. 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 Accompanied by: Is patient in pain?: No Allergies No Known Allergies Allergy (Unverified 12/14/17 19:45) Medications amlodipine 10 mg tablet 10 mg PO QDAY 12/11/17 [History Confirmed 12/18/17] aspirin 81 mg tablet,delayed release 81 mg PO QDAY tab 12/11/17 [History Confirmed 12/18/17] clopidogrel 75 mg tablet 75 mg PO QDAY tab 12/11/17 [History Confirmed 12/18/17] hydrochlorothiazide 25 mg tablet 25 mg PO QDAY tab 12/11/17 [History Confirmed 12/18/17] lisinopril 40 mg tablet 40 mg PO QDAY 12/11/17 [History Confirmed 12/18/17] metformin 500 mg tablet See Label Instructions PO .Q AM tab 12/11/17 [History Confirmed 12/11/17] atenolol 50 mg tablet 50 mg PO QDAY 12/18/17 [History Confirmed 12/18/17] atorvastatin 20 mg tablet 40 mg PO QDAY tab 12/18/17 [History Confirmed 12/18/17] insulin aspart U-100 100 unit/mL subcutaneous cartridge See Label Instructions SC BID 12/18/17 [History Confirmed 12/18/17] insulin glargine (U-100) 100 unit/mL (3 mL) subcutaneous pen See Label Instructions SC QDAY 12/18/17 [History Confirmed 12/18/17] Ejection fraction %: 60 to 64 PFSH Medical History Atherosclerotic 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[place] coronary artery without angina pectoris (Chronic) Diabetes mellitus type II, controlled (Chronic) Hyperlipidemia (Chronic) Hypertension (Chronic) Ischemic cardiomyopathy (Chronic) Occlusion and stenosis of right carotid artery (Chronic) Old myocardial infarction (Resolved) Surgical History Presence of coronary angioplasty implant and graft (Chronic) Family History Father CAD (coronary artery disease) Hx CABG x4 vessels Myocardial infarction, Onset Age: 50 Mother Breast cancer Social History Smoking Status: Former smoker how long ago did patient quit smokin alcohol intake: current Alcohol type: beer substance use type: does not use caffeine: Yes Type: coffee what type of physical activity do you participate in: other details: occasional rowing machine, biking frequency: other details: occasional rowing machine, biking duration: other details: occasional rowing machine, biking seatbelt use: always do you feel safe at home: Yes ROS Const Const: Negative for weakness, fatigue, fever(s) or headache(s) Eyes Eyes: Negative for blind spots, loss of peripheral vision or transient loss of vision ENT ENT: Negative for headache(s), Negative for dizziness, Negative for tinnitus, Negative for Nosebleed/epistaxis Cardio Chest Pain: No Palpitations: Positive for No Edema: None Muscle aches with walking: None Resp Respiratory: Negative for SOB with activity, SOB at rest or SOB orthopnea\SOB lying down GI GI: Negative nausea, vomiting, heartburn or vomiting blood/hematemesis : Negative for hematuria Musc Musc: Negative for muscle aches/ myalgia Neuro Neuro: Negative for weakness, Negative for headache(s), Negative for dizziness, Negative for near syncope, Negative for syncope, Negative for lightheadedness John Hematologic/Lymphatic: Negative for easy bleeding Endo Endo: Negative for fatigue Cardiology Exam Const Appearance: cooperative, no acute distress and well developed Orientation: alert, awake and oriented x3 Head Head: normocephalic and atraumatic Mouth: moist mucous membranes Eyes General: appearance normal, both eyes and all related structures Conjunctivae: conjunctivae normal Pupils: PERRL EOM: EOM intact bilaterally Neck Neck: normal visual inspection, no lymphadenopathy and no JVD Carotids: Negative bruit Neck Mass: Negative Neck mass Chest Chest inspection: normal inspection of the chest and symmetric chest movement Auscultation: Bilateral: Clear to Auscultation Cardio Palpation: normal PMI Rate: regular rate Rhythm: regular rhythm Heart sounds: S1 normal and S2 normal; negative rub, gallop or murmur GI GI: normal to inspection, soft, no hepatosplenomegaly and bowel sounds present; negative tender Neuro General: alert, awake, oriented x3, CN's II-XI intact bilaterally and moves all extremities Extremities Pulses: Normal: Right Posterior Tibial Pulse, Left Posterior Tibial Pulse, Right Radial Pulse, Left Radial Pulse Lower Extremity Edema: None: Bilateral Psych Psychological: normal affect Supplemental Info Echocardiogram in 2015 demonstrated an ejection fraction of 60% with structurally normal valves. Stress test in 2015 was negative for ischemia at a moderate workload. Previous inferior/inferolateral infarct was noted. Assessment AND Plan 1. Atherosclerosis of [place] coronary artery of [place] heart without angina pectoris I25.10 Plan - CRISTÓBAL Hansen Stable, from a cardiac standpoint patient does not have any symptoms of angina. We recommend that they continue with current aggressive medical management and risk factor modification. Do not feel that any additional testing needs to be done at this time. 2. HTN (hypertension), benign I10 Plan - CRISTÓBAL Hansen Overall blood pressure readings have been adequately controlled. Have asked patient to continue to monitor his readings and let us know if his readings are elevated. Will adjust medications accordingly. 3. Pure hypercholesterolemia E78.00; E78.0 Plan - CRISTÓBAL Hansen Adequately controlled on current medications. Will not make any adjustments at this time. Plan Detail Additional Comments - CRISTÓBAL Hansen The above patient was discussed with Dr. Hay and Dr. Blanchard's absence, he agrees with plan of care. Thank you for allowing us to participate in patient's plan of care, if you have any questions please do not hesitate to call. This note was generated using a voice recognition system and there may be incorrect words, spelling or punctuation errors that were not noted when reviewing the office note prior to saving. 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 transplanted heart: [place] heart HTN (hypertension), benign I10 Pure hypercholesterolemia E78.00; E78.0 Hyperlipidemia type: pure hypercholesterolemia Coding Level of Care Code Off vis,est,level 3 Diagnoses Atherosclerosis of [place] coronary artery of [place] heart without angina pectoris I25.10 Associated angina: without angina Coronary Disease-Associated Artery/Lesion type: [place] artery Habematolel vs. transplanted heart: [place] heart HTN (hypertension), benign I10 Pure hypercholesterolemia E78.00; E78.0 Hyperlipidemia type: pure hypercholesterolemia 12/18/17 1156 <Electronically signed by Alma Delia AMBROCIO> Date Alma Delia AMBROCIO 12/18/17 1800<Electronically signed by Julian Hay MD> Cosigner Signature: Date (if applicable) Julian Hay MD CC: Akira Tara LIVER PROFILE Collected: 12/13/2017 Status: F Source: [place] 8:43 AM [facility] TYPE CODE TESTS RESULT OUT OF RANGE REFERENCE UNITS LAB L501.1500 6.4-8.2 g/dL Normal T PROT 7.9 LAB L501.1800 3.2-5.0 g/dL Normal ALB 3.5 LAB L501.1950 2.2-4.2 g/dL High GLOB 4.4 LAB L501.4100 15-37 U/L Normal AST 27 LAB L501.4305 45-117 U/L Normal ALK P 83 LAB L501.4405 16-61 U/L Normal ALT 48 Result Comment: Please note revised ALT reference range effective 2017. LAB L501.4600 0.20-1.00 mg/dL Normal T BILI 0.30 LAB L501.4700 0.00-0.30 mg/dL Normal D BILI 0.06 Performed By: #### L500.3400, L500.4100 #### [facility] [address] [place], [address] LIPID PROFILE Collected: 12/13/2017 Status: F Source: [place] 8:43 AM [facility] REPOSITORY TYPE CODE TESTS RESULT OUT OF RANGE REFERENCE UNITS LAB L501.4900 200 mg/dL Normal CHOL 94 Result Comment: <200 mg/dL Desirable 200-240 mg/dL Borderline >240 mg/dL High Risk LAB L501.5000 mg/dL Normal TRIG 192 Result Comment: The drugs N-Acetylcysteine and Metamizole may falsely depress this assay. Serum Triglycerides Reference Interval Normal <150 mg/dL Borderline high 150 - 199 mg/dL High 200 - 499 mg/dL Very High > or = 500 mg/dL LAB L501.6400 mg/dL Low HDL 29 Result Comment: The drugs N-Acetylcysteine and Metamizole may falsely depress this assay. Reference Range HDL <40 mg/dL Low HDL Cholesterol HDL >or= 60 mg/dL High HDL Cholesterol LAB L501.6500 0-130 mg/dL Normal LDL 27 LAB L501.6600 5-40 mg/dL Normal VLDL 38 Performed By: #### L500.3400, L500.4100 #### [facility] [address] [place], [address] ALLERGIES ALLERGIES DATE TYPE / CODE NAME / CODE REACTION SEVERITY SOURCE 10/17/2018 Drug doxycycline/F Hives Unknown [facility] Allergy/4160 [id number]([facility] Hospital 19944(SNOMED ORM) Repository CT) 12/14/2017 Drug No Known Unknown [facility] Allergy/4160 Allergies/F00 Hospital 84414(SNOMED 1517639(RXNOR Repository CT) M) ENCOUNTERS ENCOUNTERS ADMIT/DISCHARGE ACCOUNT NUMBER ADMITTING ENCOUNTER LOCATION SOURCE CLASS 11/18/2018 [id number] [facility] ding:CR Repository 11/10/2018 [id number] [facility] ding:LAB Repository 10/24/2018 [id number] [facility] Hospital ding:LAB.FUT Repository URE 10/17/2018/10/17/20 [id number] Ambulatory [address] ding:LAB Repository 10/17/2018/10/17/20 [id number] Ambulatory [facility]: [place] [facility] Repository 10/16/2018 [id number] Ambulatory [facility]: [place] [facility] Repository 10/13/2018/10/13/20 [id number] [address] Repository :MCNO 10/10/2018 [id number] Ambulatory [facility] ding:LABSPEC Repository 10/08/2018 [id number] Ambulatory [facility] ding:LABSPEC Repository 10/07/2018 [id number] Ambulatory [facility] ding:LAB Repository 10/03/2018/10/03/20 [id number] Emergency [address] ding:ED Repository 10/02/2018 [id number] Ambulatory [facility] ding:LAB.FUT Repository URE 09/21/2018/10/01/20 [id number] [place], [address] Repository :CPCERoom: [id number]: 07/15/2018/07/15/20 [id number] Ambulatory BMSBuilding: [place] [facility] Repository 12/18/2017/12/18/19 [id number] Ambulatory B[facility]: [place] [facility] Repository 12/14/2017 [id number] Ambulatory BMSBuilding: [place] [facility] Repository 12/13/2017 [id number] Ambulatory [facility] ding:LAB Repository PAYERS PAYERS ENCOUNTER GUARANTOR PAYER SUBSCRIBER SOURCE 11/18/2018 LOVE [id number] Insurance:GRETCHEN GREGORYB: [facility] JASON, MEDICARE PPOPolicy [id number] [facility] Fe Medical Center [address]Pny: Number: Repository [id number] (HP) Date:8091-06-12GY [address] [address]QZ: 11/18/2018 Secondary LOVE E [place] [facility] Number: [id number] Hospital [id number] Repository Date:2101-64-95BKB SERVICE [id number] [place], [place] [address]RK: [phone] X2003 11/18/2018 Tertiary NOT GIVENUNK Wild Insurance:SELF PAY [facility] Number: Effective Repository Date:2018-11-12 11/10/2018 LOVE E Primary LOVE E [place] [id number] Insurance:HUMANA LINEBAUGHDOB: [facility] ALEXANDER GOMEZ, MEDICARE PPOPolicy [id number] Santa Fe Medical Center [address]Dzz: Number: Repository [id number] (HP) Date:3125-00-75TO [address] [address]KE: 11/10/2018 Secondary LOVE E Wild [facility] Number: [id number] Hospital [id number] Repository Date:2396-09-92NSK SERVICE [id number] [place], [place] [address]TZ: [phone] X2003 11/10/2018 Tertiary NOT GIVENUNK Wild Insurance:SELF PAY [facility] Number: Effective Repository Date:2018-10-27 10/24/2018 LOVE E Primary LOVE E [place] [id number] Insurance:HUMANA LINEBAUGHDOB: [facility] ALEXANDER GOMEZ, MEDICARE PPOPolicy [id number] Santa Fe Medical Center [address]Kpm: Number: Repository [id number] (HP) Date:4779-43-01CT [address] [address]NA: 10/24/2018 Secondary LOVE E [place] Insurance:[place] MEDICAL LINEBAUGHDOB: [facility] Number: [id number] Hospital [id number] Repository Date:6376-26-61WED SERVICE [id number] [place], [place] [address]GI: [phone] X2003 10/24/2018 Tertiary NOT GIVENUNK Wild Insurance:SELF PAY [facility] Number: Effective Repository Date:2018-10-16 10/17/2018 LOVE E Primary LOVE E Wild [id number] Insurance:HUMANA LINEBAUGHDOB: [facility] ALEXANDER GOMEZ, MEDICARE PPOPolicy [id number] Santa Fe Medical Center [address]Pqz: Number: Repository [id number] (HP) Date:5258-61-32SF [address] [address]DW: 10/17/2018 Secondary LOVE E [place] Insurance:[place] MEDICAL LINEBAUGHDOB: [facility] Number: [id number] Hospital [id number] Repository Date:2302-93-21IZI SERVICE [id number] [place], [place] [address]YA: [phone] X2003 10/17/2018 Tertiary NOT GIVENUNK Wild Insurance:SELF PAY [facility] Number: Effective Repository Date:2018-10-17 10/17/2018 LOVE E Primary LOVE E Wild [id number] Insurance:HUMANA LINEBAUGHDOB: [facility] ALEXANDER GOMEZ, MEDICARE PPOPolicy [id number] Santa Fe Medical Center [address]Yzt: Number: Repository [id number] (HP) Date:6127-78-12RE [address] [place] [address]LB: 10/17/2018 Secondary LOVE E [place] Insurance:[place] MEDICAL LINEBAUGHDOB: [facility] Number: [id number] Hospital [id number] Repository Date:8424-78-58XXZ SERVICE [id number] [place], [place] [address]XT: [phone] X2003 10/17/2018 Tertiary NOT GIVENUNK Wild Insurance:SELF PAY [facility] Number: Effective Repository Date:2018-10-17 10/16/2018 LOVE E Primary LOVE [place] [id number] Insurance:HUMANA LINEBAUGHDOB: [facility], MEDICARE PPOPolicy [id number] Santa Fe Medical Center [address]Bmt: Number: Repository [id number] () Date:4499-41-77MS [address] [address]WB: 10/16/2018 Secondary LOVE Plasencia [place] Insurance:[place] MEDICAL LINEBAUGHDOB: [facility] Number: [id number] Hospital [id number] Repository Date:7994-40-00CCD SERVICE [id number] [place], [place] [address]MC: [phone] X2003 10/16/2018 Tertiary NOT GIVENUNK [place] Insurance:SELF PAY [facility] Number: Effective Repository Date:2018-10-16 10/13/2018 LOVE E Primary LOVE Velarde LINEBAUGHDOB: Insurance:HUMANA LINEBAUGHDOB: [facility] CHOICE PPO PT APolicy [id number] Repository [facility]ER [facility] SYSTEMD[facility], Number: Effective [place] Date:2018-08-28 - [address]Oke: 4180-67-14Ilbs Name:[facility] BOX ()Tel: (071) [address] [place] [address] [phone] (SR) [phone]: 10/13/2018 Secondary LOVE [place] Insurance:HUMANA LINEBAUGHDOB: [facility] CHOICE PPO PT BPolicy [id number] Repository Number: Effective Date:2018-08-285314-99-66Kxvn Name:BP BERTHA [address] [place] [address]TJ: 10/10/2018 LOVE E Primary LOVE E [place] [id number] Insurance:HUMANA LINEBAUGHDOB: [facility] ALEXANDER GOMEZ, MEDICARE PPOPolicy [id number] Hospital [place] [address]Tel: Number: Repository [id number] (HP) Date:4302-14-41JJ [address] [address]OW: 10/10/2018 Secondary LOVE E [place] Insurance:[place] MEDICAL LINEBAUGHDOB: [facility] Number: [id number] Hospital [id number] Repository Date:1994-83-22TQJ SERVICE [id number] [place], [place] [address]PN: [phone] X2003 10/10/2018 Tertiary NOT GIVENUNK [place] Insurance:SELF PAY [facility] Number: Effective Repository Date:2018-10-10 10/08/2018 LOVE E Primary LOVE E Wild [id number] Insurance:HUMANA LINEBAUGHDOB: [facility] ALEXANDER GOMEZ, MEDICARE PPOPolicy [id number] [place] [address]Mwh: Number: Repository [id number] (HP) Date:5454-67-01MN [address] [address]DX: 10/08/2018 Secondary LOVE E [place] Insurance:[place] MEDICAL LINEBAUGHDOB: [facility] Number: [id number] Hospital [id number] Repository Date:4247-11-91KIF SERVICE [id number] [place], [place] [address]OR: [phone] X2003 10/08/2018 Tertiary NOT GIVENUNK Wild Insurance:SELF PAY [facility] Number: Effective Repository Date:2018-10-08 10/07/2018 LOVE E Primary LOVE E [place] [id number] Insurance:HUMANA LINEBAUGHDOB: [facility] ALEXANDER GOMEZ, MEDICARE [facility] [id number] [place] [address]Zjh: Number: Repository [id number] (HP) Date:5048-85-36CJ[address] [address]FA: 10/07/2018 Secondary [place] Insurance:[place] MEDICAL LINEBAUGHDOB: [facility] Number: [id number] Hospital [id number] Repository Date:4374-66-08QEZ SERVICE [id number] [place], [place] [address]HN: [phone] X2003 10/07/2018 Tertiary NOT GIVENUNK Wild Insurance:SELF PAY [facility] Number: Effective Repository Date:2018-10-07 10/03/2018 LOVE E Primary LOVE [place] [id number] Insurance:HUMANA LINEBAUGHDOB: [facility] JASON, MEDICARE PPOPolicy [id number] Santa Fe Medical Center [address]Ood: Number: Repository [id number] (HP) Date:7815-12-95QK[address] [address]HW: 10/03/2018 Secondary NOT GIVENUNK [place] Insurance:SELF PAY [facility] Number: Effective Repository Date:2018-10-03 10/02/2018 LOVE E Primary LOVE [place] [id number] Insurance:HUMANA LINEBAUGHDOB: [facility] SADIDANIEL, MEDICARE PPOPolicy [id number] [place] [address]Uwf: Number: Repository [id number] (HP) Date:4591-76-25BP[address] [address]ZF: 10/02/2018 Secondary NOT GIVENUNK [place] Insurance:SELF PAY [facility] Number: Effective Repository Date:2018-10-02 09/21/2018 LOVE E Primary LOVE Velarde LINEBAUGHDOB: Insurance:HUMANA LINEBAUGHDOB: Health [facility] CHOICE PPO PT APolicy [id number] Repository ALEXANDER GOMEZ, Number: Effective [place] Date:2018-08-28 - [address]Rew: 1589-12-86Quzr Name:[facility] BOX (HP)Tel: ([phone]) [address] [place] [address] [phone] ([phone]) [phone]: 09/21/2018 Secondary LOVE Velarde Insurance:HUMANA LINEBAUGHDOB: [facility] CHOICE PPO [facility] [id number] Repository Number: Effective Date:2018-08-2820237571-20-26Vjiw Name:[facility] [address] [place] [address]UP: 07/15/2018 LOVE E Primary LOVE E Iml[place] [id number] Insurance:HUMANA LINEBAUGHDOB: [facility], MEDICARE PPOPolicy [id number] Santa Fe Medical Center [address]Iye: Number: Repository [id number] (HP) Date:5088-90-95NT[address] [address]LW: 07/15/2018 Secondary NOT GIVENUNK Wild Insurance:SELF PAY [facility] Number: Effective Repository Date:2018-07-15 12/18/2017 LOVE E Primary LOVE E Wild [id number] Insurance:HUMANA LINEBAUGHDOB: [facility], MEDICARE PPOPolicy [id number] [place] [address]Fmp: Number: Repository [id number] (HP) Date:1421-37-23IB[address] [address]BG: 12/18/2017 Secondary NOT GIVENUNK [place] Insurance:SELF PAY [facility] Number: Effective Repository Date:2017-10-03 12/14/2017 Love E Primary Love E Wild [id number] Insurance:HUMANA LinebaughDOB: [facility], MEDICARE PPOPolicy [id number] Santa Fe Medical Center [address]Exm: Number: Repository [id number] (HP) Date:8964-25-39BT[address] [address]AG: 12/14/2017 Secondary NOT GIVENUNK Wild Insurance:SELF PAY [facility] Number: Effective Repository Date:2017-12-14 12/13/2017 Love Plasencia Primary Love [place] [id number] Insurance:HUMANA LinetoñaDOB: [facility]ostemmanuel, MEDICARE PPOPoly [id number] Santa Fe Medical Center [address]Sxo: Number: Repository [id number] (HP) Date:2588-52-33SC[address] [address]BX: 12/13/2017 Secondary NOT GIVENUNK Wild Insurance:SELF PAY [facility] Number: Effective Repository Date:2017-12-13
== END ==
PROVIDERS: Family Provider Family Medicine; PCP Family Medicine
DX: I25.10 Atherosclerotic 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native coronary artery without angina pectoris (principal); R06.02 Shortness of breath
CPT/HCPCS: 36415; 71046; 80048; 85027

== ENCOUNTER → 2018-10-08 10:19 | Outpatient (CLI) | payer MEDICARE, OTHER, SELFPAY ==
[2018-10-03 14:23] VITALS: BMI 70.0
[2018-10-08 10:42] LABS: International Normalized Ratio 1.4; Prothrombin Time (Protime)PT. 17.4 SECONDS (11.7-14.9)
--- OUTSIDE RECORDS SUMMARY | 2018-11-24 12:06 | XMS RPT_ITS ---
:1945 Author Organization [facility] Support Name Relationship Address Phone CHAPIS PHELAN Unavailable [address] + [place] [address] KAUMFAN GHASSAN Unavailable [address] + [place] [address] R Unavailable Unavailable Unavailable LINEBAMARYJANE CHAPIS Unavailable [address] + [place] [address] GHASSAN KAUFMAN Unavailable [address] + [place] [address] R Unavailable Unavailable Unavailable LINEBAUGH, CHAPIS Unavailable [address] + [place] [address] GHASSAN KAUFMAN Unavailable [address] + [place] [address] R Unavailable Unavailable Unavailable LINEBAUGH, CHAPIS Unavailable [address] + [place] [address] GHASSAN KAUFMAN Unavailable [address] + [place] [address] R Unavailable Unavailable Unavailable LINEBAUGH, CHAPIS Unavailable [address] + [place] [address] GHASSAN KAUFMAN Unavailable [address] + [place] [address] R Unavailable Unavailable Unavailable LINEBAUGH, CHAPIS Unavailable [address] + [place] [address] GHASSAN KAUFMAN Unavailable [address] + [place] [address] R Unavailable Unavailable Unavailable LINEBAUGH, CHAPIS Unavailable [address] + [place] [address] LINEBAUGH, CHAPIS Unavailable [address] + [place] [address] GHASSAN KAUFMAN Unavailable [address] + [place] [address] R Unavailable Unavailable Unavailable LINEBAUGH, CHAPIS Unavailable [address] + [place] [address] GHASSAN KAUFMAN Unavailable [address] + [place] [address] R Unavailable Unavailable Unavailable LINEBAUGH, CHAPIS Unavailable [address] + [place] [address] GHASSAN KAUFMAN Unavailable [address] + [place] [address] R Unavailable Unavailable Unavailable LINEBAUGH, CHAPIS Unavailable [address] + [place] [address] GHASSAN KAUFMAN Unavailable [address] + [place] [address] R Unavailable Unavailable Unavailable LINEBAUGH, CHAPIS Unavailable [address] + [place] [address] R Unavailable Unavailable Unavailable LINEBAUGH, CHAPIS Unavailable [address] + [place] [address] LINEBAUGH, CHAPIS Unavailable [address] + [place] [address] R Unavailable Unavailable Unavailable LINEBAUGH, CHAPIS Unavailable [address] + [place] [address] R Unavailable Unavailable Unavailable R Unavailable Unavailable Unavailable LINEBAUGH, CHAPIS Unavailable [address] + [place] [address] R Unavailable Unavailable Unavailable KATHE WILLINGHAM Unavailable / + [place], [place] / LINEBAUGH, CHAPIS Unavailable [address] + [place] [address] R Unavailable Unavailable Unavailable KATHE WILLINGHAM Unavailable / + [place], [place] / Care Team Providers Name Role Phone Physician, PCP Unknown Primary Care Unavailable Jose F Nagel Admitting Unavailable MARIANO MORENO Attending Unavailable MARIANO MORENO Attending Unavailable Physician, PCP Unknown Primary Care Unavailable ADRIANA BUITRAGO Attending Unavailable ADRIANA BUITRAGO Referring Unavailable Tara, Akira Primary Care Unavailable ADRIANA BUITRAGO Attending Unavailable ADRIANA BUITRAGO Referring Unavailable Tara, Akira Primary Care Unavailable Tara, Akira Primary Care Unavailable ADRIANA BUITRAGO Attending Unavailable ADRIANA BUITRAGO Referring Unavailable Lorna Salinas Attending Unavailable Lo, [place] Attending Unavailable Tara, Akira Primary Care Unavailable Lo, [place] Referring Unavailable Lo, [place] Attending Unavailable Tara, Akira Referring Unavailable Alma Delia Aquino Attending Unavailable Bib Antonia Referring Unavailable Tara, Akira Primary Care Unavailable Lo, Hemant Attending Unavailable Lo, [place] Referring Unavailable Tara, Akira Primary Care Unavailable Ai Sheehan Attending Unavailable Lo, Hemant Attending Unavailable Tara, Akira Referring Unavailable ADRIANA BUITRAGO Attending Unavailable Tara, Akira Primary Care Unavailable Lo, [place] Attending Unavailable Lo, Hemant Referring Unavailable Tara, Akira Primary Care Unavailable Lo, Hemant Attending Unavailable Lo, Hemant Referring Unavailable Tara, Akira Primary Care Unavailable Lo, [place] Attending Unavailable Lo, Hemant Referring Unavailable Tara, Akira Primary Care Unavailable Tara, Akira Primary Care Unavailable Vasu Zhu Attending Unavailable Lo, [place] Referring Unavailable ADRIANA BUITRAGO Consulting Unavailable PROBLEMS PROBLEMS DATE TYPE CONDITION / CODE ATTENDING STATUS SOURCE 11/18/2018 Unknown Z95.2 - Presence of Lo, [place] Active [facility] prosthetic heart Community valve / Hospital Z95.2(ICD-10) Repository 11/10/2018 Unknown Z79.01 - legal aide Lo, Hemant Active [facility] (current) use of Community 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 / Hospital Z79.01(ICD-10) Repository 10/17/2018 Unknown E78.5 - Lo, Hemant Active [facility] Hyperlipidemia, Community unspecified / Hospital E78.5(ICD-10) Repository 10/17/2018 Unknown I10 - Essential Lo, [place] Active [facility] (primary) Community hypertension / Hospital I10(ICD-10) Repository 10/17/2018 Unknown I25.10 - Lo, Hemant Active [facility] Atherosclerotic [facility] 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[facility] [place] coronary Repository artery without angina pectoris / I25.10(ICD-10) 10/17/2018 Unknown I34.0 - Nonrheumatic Lo, [place] Active [facility] mitral (valve) Community insufficiency / Hospital I34.0(ICD-10) Repository 10/17/2018 Unknown I50.33 - Acute on Lo, Hemant Active [facility] chronic diastolic Community (congestive) heart Hospital failure / Repository I50.33(ICD-10) 10/17/2018 Unknown 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, 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 / Hospital Z95.3(ICD-10) Repository 10/17/2018 Unknown Z95.5 - Presence of Lo, Hemant Active [facility] coronary angioplasty Community implant and graft / Hospital Z95.5(ICD-10) Repository 10/17/2018 Unknown E78.00 - Pure Lo, Hemant Active [facility] hypercholesterolemia Community , unspecified / Hospital E78.00(ICD-10) Repository 10/14/2018 Unknown T82.897A - Other Audra, Active [facility] complication of Hospital cardiac prosthetic Repository devices, implants and grafts, initial encounter / T82.897A(ICD-10) 09/21/2018 Admitting Unknown / MARIANO MORENO Active [facility] Diagnosis UNK(Unknown) Health System Repository PROCEDURES PROCEDURES No Procedure Records FoundRESULTS RESULTS PROTHROMBIN TIME W/INR Collected: 11/10/2018 Status: F Source: [place] 10:48 AM [facility] REPOSITORY TYPE CODE TESTS RESULT OUT OF RANGE REFERENCE UNITS LAB L300.4150 11.7-14.9 SECONDS High PROTIME 21.0 LAB L300.4200 Normal INR 1.8 Performed By: #### L300.3900 #### [facility] [address] [place], [place], [address] PROTHROMBIN TIME W/INR Collected: 10/31/2018 Status: F Source: [place] 10:45 AM [facility] REPOSITORY TYPE CODE TESTS RESULT OUT OF RANGE REFERENCE UNITS LAB L300.4150 11.7-14.9 SECONDS High PROTIME 18.1 LAB L300.4200 Normal INR 1.5 Performed By: #### L300.3900 #### [facility] [address] [place], [address] PROTHROMBIN TIME W/INR Collected: 10/24/2018 Status: F Source: [place] 11:25 AM [facility] REPOSITORY TYPE CODE TESTS RESULT OUT OF RANGE REFERENCE UNITS LAB L300.4150 11.7-14.9 SECONDS High PROTIME 19.5 LAB L300.4200 Normal INR 1.6 Performed By: #### L300.3900 #### [facility] [place], [address] DISCHARGE SUMMARY Observed: 10/17/2018 Status: F Source: [place] 12:22 PM HEALTH SYSTEM REPOSITORY Patient: LOVE [...] valve for mitral regurgitation. Was discharged to [facility] on POD #5. Plavix was stopped due to being on Coumadin for 3 months for CVA/thrombus prophylaxis. Discharged with [facility] to have INR checks M/W/F and called to [facility] office. . Procedures Performed PROCEDURES Mitral valve operation ([id number]) performed by Mariano Moreno MD on 09/26/2018 [...] after mealsDx: Insulin-dependant diabetes Miscellaneous Medication (Diabetic Frostproof) See Instructions Diabetic Frostproof To administer insulin after each meal and [...] 10/01/2018 09:19 COMMENTS: Future refills from your PCP/Pressurization Mechanic spironolactone (spironolactone 25 mg oral tablet) 2 [...] Mariano Moreno MD Specialty: Thoracic Surg [facility] [address] [facility] [address] (1) Date: 10/13/18 09:15 am Comment: Please complete labs and CXR prior to your appointment Provider: Hemant Blanchard MD Specialty: Address: [address] [place] [address] Date: 10/17/18 09:30 am Comment: Follow up with your primary sternman. Your appointment is scheduled for 9:30am. Bring a list of your current medications and hospital discharge paperwork. Provider: PCP Unknown Physician Specialty: Family Practice Address: Date: Follow-up as needed Patient Education Given Mitral Valve Replacement, Heart Failure, Xdbf-qz-Ccqi, [place] - Cardiac Surgery Discharge Instructions (CUSTOM), Low-Sodium Eating Plan, Incision Care PROTHROMBIN TIME W/INR Collected: 10/17/2018 Status: F Source: [place] 10:39 AM [facility] REPOSITORY TYPE CODE TESTS RESULT OUT OF RANGE REFERENCE UNITS LAB L300.4150 11.7-14.9 SECONDS High PROTIME 18.2 LAB L300.4200 Normal INR 1.5 Performed By: #### L300.3900 #### [facility] [address], [address] CARDIOLOGY VISIT Observed: 10/17/2018 Status: F Source: [place] REPORT 10:11 AM [facility] REPOSITORY [facility] [address] [place] [address] OFFICE VISIT Date of Service: 10/17/18 MR#: [id number] Acct: [id number] Name: LOVE PHELAN Rep #: [id number] : 1945 Provider: Hemant Blanchard MD Age/Sex: 73/M Location: [facility] Status: Signed HPI HPI Chief Complaint: Follow [...] hypertension and hyperlipidemia. He apparently was in [place] a few weeks ago and developed severe [...] ft 11 in Intake Visit Reasons: SANDRA Va Syd 12-5 post stent Allergies doxycycline Allergy [...] mg PO DAILY 10/17/18 [History Confirmed 10/17/18] [facility] Medical History Acute on chronic diastolic (congestive) heart failure (Chronic) Non-rheumatic mitral regurgitation (Chronic) Atherosclerotic 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[place] coronary artery without angina pectoris (Chronic) Hyperlipidemia [...] Orders: Referrals: 2. 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) Coding Level of Care Code Off vis,est,level 5 Diagnoses History of mitral valve replacement with bioprosthetic valve Z95.3 Atherosclerotic 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[place] coronary artery without angina pectoris I25.10 Pure hypercholesterolemia E78.00 Hyperlipidemia type: pure hypercholesterolemia Essential (primary) hypertension I10 Coding Level of Care Code Off vis,est,level 5 Diagnoses History of mitral valve replacement with bioprosthetic valve Z95.3 Atherosclerotic 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[place] coronary artery without angina pectoris I25.10 Pure hypercholesterolemia E78.00 Hyperlipidemia type: pure hypercholesterolemia Essential (primary) hypertension I10 10/17/18 1011 <Electronically signed by Hemant Blanchard MD> Date Hemant Blanchard MD Cosigner Signature: Date (if applicable) CC: Akira Pacheco MD 12 LEAD EKG PERFORMED Observed: 10/17/2018 Status: F Source: [place] [facility] 9:24 AM [facility] REPOSITORY [address] [address] 12 Lead EKG performed by [facility] 10/17/18 0924 MR#: [id number] Acct: [id number] Name: LOVE PHELAN Rep #: [id number] : 1945 73 From: Hemant Blanchard MD Attending Dr: Hemant Blanchard MD Status: DEP AMB Ordering Dr: Hemant Blanchard MD Date: 10/17/18 Location: [facility] Sex: M C Admitted: [facility]/12 Lead EKG performed by [facility] ECG Report Interpretation Sinus Rhythm -RSR(V1) -nondiagnostic. -Left atrial enlargement. BORDERLINEElectronically signed on 11/18/2018 at 13:24 by Hemant Blanchardwood Software Version 8610 11/18/18 1329 Date Hemant Blanchard MD CC: Akira Pacheco MD Date Dictated: 10/17/18923 Date Transcribed: 10/17/18923 Offal Baler: [place] Signed PROTHROMBIN TIME Collected: 10/13/2018 Status: F Source: [facility] 12:48 PM HEALTH SYSTEM REPOSITORY TYPE CODE TESTS RESULT OUT OF RANGE REFERENCE UNITS LAB 61212-8(HANY [place]) Normal INR 1.41 Result Comment: The recommended therapeutic INR range for most cardiac indications is 2.0-3.0. For high intensity therapy(ie.mechanical heart valves), the recommended range is 2.5-3.5. LAB 5902-2(LOINC) 9.3-12.4 Sec Prothrombin High Time (PT) 16.5 Performed By: #### 5902-2 #### [facility] PROTHROMBIN TIME W/INR Collected: 10/10/2018 Status: F Source: [place] 10:00 AM [facility] REPOSITORY TYPE CODE TESTS RESULT OUT OF RANGE REFERENCE UNITS LAB L300.4150 11.7-14.9 SECONDS High PROTIME 17.6 LAB L300.4200 Normal INR 1.4 Performed By: #### L300.3900 #### [facility] [address] [place], [place], [address] PROTHROMBIN TIME W/INR Collected: 10/08/2018 Status: F Source: [place] 10:00 AM [facility] REPOSITORY TYPE CODE TESTS RESULT OUT OF RANGE REFERENCE UNITS LAB L300.4150 11.7-14.9 SECONDS High PROTIME 17.4 LAB L300.4200 Normal INR 1.4 Performed By: #### L300.3900 #### [facility] [address] [place], [place], [address] CHEST PA AND LATERAL Observed: 10/07/2018 Status: F Source: [place] 2:18 PM [facility] REPOSITORY [facility] Imaging Services [address] [place] [address] Chest PA and Lateral MR#: [id number] Acct: [id number] Name: LOVE PHELAN Rep #: [id number] : 1945 M 73 From: Bahman Carias MD PCP: Akira Pacheco MD Status: REG CLI Study: Chest PA and Lateral Date of Exam: 10/07/18 Exam# [id number] Ordering Dr: MARIANO MORENO STUDY: X-RAY CHEST [...] , CC: MARIANO MORENO; Akira Pacheco MD Offal Baler: Signed CBC-COMPLETE BLOOD CNT Collected: 10/07/2018 Status: F Source: [place] NO DIFF 2:07 PM [facility] REPOSITORY TYPE CODE TESTS RESULT OUT [...] MPV 10.8 Performed By: #### L100.0500 #### [facility] [address] [facility] [place], [address] BASIC METABOLIC Collected: 10/07/2018 Status: F Source: [place] PROFILE (BMP) 2:07 PM [facility] REPOSITORY TYPE CODE TESTS RESULT OUT [...] GAP 7 Performed By: #### L500.2500 #### [facility] [address] [place], [address] EMERGENCY DEPARTMENT Observed: 10/03/2018 Status: F Source: [place] SUMMARY 5:53 PM [facility] REPOSITORY [facility] Medical Records Department [address] [place] [address] Emergency Department Summary 10/03/18 1602 MR#: [id number] Acct: [id number] Name: LOVE PHELAN Rep #: [id number] : 1945 73 From: Vasu Zhu MD PCP: Akira Pacheco MD Status: DEP ER - ER Visit Summary Date of Service: 10/03/18 Chief Complaint: Drainage from wound History of Present Illness: The patient is a [address] Blanchard and Dr. Akira Pacheco. On September 26 the patient had a mitral valve replacement by Dr. Moreno at [facility]. He reports he was discharged [...] Subtherapeutic INR. This note was generated with [employer] dictation software. It may contain incorrect words, [...] problems, contact your Primary Care Provider. Call [facility] ([phone]) or report to the closest Emergency Room. Call 911 if necessary. 10/03/18 8166 <Electronically signed by Vasu Zhu MD> Date Vasu Zhu MD Cosigner Signature (If Indicated): Date CC: Akira Pacheco MD CBC W/DIFF, AUTOMATED Collected: 10/03/2018 Status: F Source: [place] 3:15 PM [facility] REPOSITORY TYPE CODE TESTS RESULT OUT [...] Lymph 0.96 Performed By: #### L100.0100 #### [facility] [address] [place], [place], [address] PROTHROMBIN TIME W/INR Collected: 10/03/2018 Status: F Source: [place] 3:15 PM [facility] REPOSITORY TYPE CODE TESTS RESULT OUT OF RANGE REFERENCE UNITS LAB L300.4150 11.7-14.9 SECONDS High PROTIME 16.8 LAB L300.4200 Normal INR 1.4 Performed By: #### L300.3900 #### [facility] [address] [place], [address] BASIC METABOLIC Collected: 10/03/2018 Status: F Source: [place] PROFILE (BMP) 3:06 PM [facility] REPOSITORY TYPE CODE TESTS RESULT OUT [...] GAP 9 Performed By: #### L500.2500 #### [facility] [address] [place], [address] CHEST 1 VIEW Observed: 10/03/2018 Status: F Source: [place] (PORTABLE) 2:50 PM [facility] REPOSITORY [facility] Imaging Services [address] [place] [address] Chest 1 View (Portable) MR#: [id number] Acct: [id number] Name: LOVE PHELAN Rep #: [id number] : 1945 M 73 From: Amarjit Cruz MD PCP: Akira Pacheco MD Status: REG ER Study: Chest 1 View (Portable) Date of Exam: 10/03/18 Exam# [id number] Ordering Dr: Vasu Zhu MD STUDY: X-RAY [...] Amarjit Cruz MD at 15:35 EST Tel [phone], Service support , CC: Vasu Zhu MD; Akira Pacehco MD Offal Baler: Signed PATIENT SUMMARY Observed: 10/01/2018 Status: C Source: [facility] 2:56 PM HEALTH SYSTEM REPOSITORY PATIENT DISCHARGE INSTRUCTIONS If you are having an emergency and are not able to reach your physician, CALL 911 or go to the nearest emergency room and take this document with you. [facility] 10/01/18 14:56 [address] [place]. [address] PATIENT INFORMATION Name: LOVE PHELAN Address: [address] [place] [id number] Age: 73 Years Phone: [phone] : 1945 12:00 MRN: [id number] Sex: Male Race: White Ethnicity: Not Hispan/Lat Admitted From: [facility] Medical Service: Thoracic Surgery Nurse Unit/Bed: ([place]) [facility] [id number] Admit Date: 09/21/2018 05:02 PCP: Physician, PCP [...] Thoracic Surg [address] [facility] [address] (1) 10/13/18 09:15 am Comment: Please complete labs and CXR prior to your appointment Provider: Specialty: Address: Date: Hemant Blanchard MD [address] [facility] [address] 10/17/18 09:30 am Comment: Follow up with your primary sternman. Your appointment is scheduled for 9:30am. Bring [...] doses are changed, or new medications (including gtzg-adk-zncllwr products) are added. Ask your doctor if [...] Days. Refills: 1., Future refills from your PCP/Pressurization Mechanic Miscellaneous Medication (Diabetic Frostproof) To administer insulin after each meal and [...] Days. Refills: 1., Future refills from your PCP/Pressurization Mechanic Comment Miscellaneous Medication (Diabetic Frostproof) To administer insulin after each meal and [...] HF zone sheet and newsletter. Title-Video/Print Material: [facility] Title-Video/Print Material: Open heart DVD Teaching [...] not start or stop any medications or pdez-jpt-fngqdan medications unless your doctor or pharmacist tells [...] doctor who is following your blood levels. Pbws-vmy-xadqhoc pain relievers: Acetaminophen (Tylenol?) aspirin, ibuprofen, (Motrin?) [...] Foods Rich in Vitamin K include: Broccoli, [place] sprouts, kale, spinach, and other leafy greens, [...] Decisions Type: Living Will, Medical Power of Prompt Care Rn Copy of Advance Directive/Health Care Decisions on [...] suicide hotline, anytime day or night, at 9-962-948-YUHN. Important information about accessing your health information through the [facility] [employer] patient portal If you initiated the self-registration process for [employer] during your stay, please check your personal email for an invitation to enroll in [employer] and complete the steps outlined in the email. If you would prefer to enroll while in the hospital, ask a member of your care team. We would be happy to assist you. If you have already enrolled in [employer], go to [email or web address] to login and access your health information. Thank you for choosing [facility] [employer]. PATIENT EDUCATION Incision Care An incision is [...] 05/03/2006 Document Revised: 11/04/2015 Document Reviewed: 12/08/2014 [employer] Interactive Patient Education ?2016 [employer] Cardiac Surgery Discharge Instructions 1. Diet [...] to call your Primary Care Physician or Pressurization Mechanic: ? If you have diabetes and your [...] including vitamins, herbs, eye drops, creams, and ihbr-awy-zdkugvv medicines. ?Previous problems you or members of [...] 02/14/2006 Document Revised: 11/04/2015 Document Reviewed: 03/17/2014 [employer] Interactive Patient Education ?2016 [employer] Low-Sodium Eating Plan Sodium raises blood [...] glutamate (MSG). MSG is sometimes added to Korean food and some canned foods.?Check food labels [...] vegetable juices. Frozen vegetables in sauces. Salted Kiswahili fries. Olives. Pickles. Relishes. Sauerkraut. Salsa. Meat [...] Johnson fat. Other? Potato and tortilla chips. Anita chips and puffs. Salted popcorn and pretzels. [...] 04/05/2003 Document Revised: 11/04/2015 Document Reviewed: 08/18/2014 [employer] Interactive Patient Education ?2015 [employer] Heart Failure Heart failure means your [...] Reviewed: 11/30/2013 Elsevier Interactive Patient Education ?2016 [employer] What You Should Know About Opioid Medicine What is an Opioid? Opioid medications are used to treat moderate to severe pain. Morphine, Oxycodone (Percocet?), Hydromorphone (Dilaudid?) and Hydrocodone (Stedman?) are some types of opioids. How do Opioids work? Opioids reduce the pain signals sent to your brain, which decrease your feelings of pain. Opioids may reduce your pain, but may not take all the pain away. What are the risks from taking opioids? Prescription opioids carry serious risks of physical dependence, addiction and overdose, with insurance biller use. If you take too much of [...] CLINICAL SUMMARY Observed: 10/01/2018 Status: C Source: [facility] 2:56 PM HEALTH SYSTEM REPOSITORY CLINICAL SUMMARY Please take this summary document to your follow up appointments. [facility] 10/01/18 14:56 [address] [place]. [address] PATIENT INFORMATION Name: LOVE PHELAN Address: [address] [facility] [address] Age: 73 Years Phone: [phone] : 1945 12:00 MRN: ([id number] Sex: Male Race: White Ethnicity: Not Hispan/Lat Admitted From: [facility] Medical Service: Thoracic Surgery Nurse Unit/Bed: ([place]) [facility] [id number] Admit Date: 09/21/2018 05:02 PCP: Physician, PCP [...] Georges A - Nephrology Berry AMBRIZ , [place] - Thoracic Surg Stephy AMBRIZ, Nica Dumont [...] Days. Refills: 1., Future refills from your PCP/Pressurization Mechanic Miscellaneous Medication (Diabetic Frostproof) To administer insulin after each meal and [...] Days. Refills: 1., Future refills from your PCP/Pressurization Mechanic Comment Miscellaneous Medication (Diabetic Frostproof) To administer insulin after each meal and [...] for Adults HYDROcodone/Acetaminophen 5 mg/325 mg Tab (Stedman 5 GEq) (Stedman 5 mg/325 mg*) 2 Tab, PO, Tab, [...] site access HYDROcodone/Acetaminophen 5 mg/325 mg Tab (Stedman 5 GEq) (Stedman 5 mg/325 mg) 1 Tab, PO, Tab, [...] or greater than 180 mmHg; prolongation of TN interval + QRS complex * Individual cases [...] Address: Date: Mariano Moreno MD Thoracic Surg [address] [place] [address] [address] [facility] [address] (1) 10/13/18 09:15 am Comment: Please complete labs and CXR prior to your appointment Provider: Specialty: Address: Date: Hemant Blanchard MD [address] [place] [address] 10/17/18 09:30 am Comment: Follow up with your primary sternman. Your appointment is scheduled for 9:30am. Bring [...] tomorrow 10/02/18 and call to CTS office [phone]. Will then have INR checks every Saturday, Saturday, and Saturday. Dr. Moreno office to follow levels [phone]. Transfer Code Status: Full Resuscitation. Transfer Consults: [...] not start or stop any medications or xccf-hwu-ethklxk medications unless your doctor or pharmacist tells [...] doctor who is following your blood levels. Zpce-jap-zxqycwy pain relievers: Acetaminophen (Tylenol??) aspirin, ibuprofen, (Motrin??) [...] Foods Rich in Vitamin K include: Broccoli, [place] sprouts, kale, spinach, and other leafy greens, [...] Decisions Type: Living Will, Medical Power of Prompt Care Rn Copy of Advance Directive/Health Care Decisions on [...] Valve Replacement; Low-Sodium Eating Plan; Heart Failure, Gbdb-et-Tomq GLUCOSE POCT Collected: 10/01/2018 Status: F Source: [...] HEALTH SYSTEM REPOSITORY Patient: LOVE PHELAN MRN: (COL)-[id number] Age: 73 years Sex: Male : 1945 [...] plavix. Dispo: Discharge to home today with [facility]. INR to be drawn tomorrow. Discussed with [...] PROGRESS NOTES Observed: 10/01/2018 Status: C Source: [place] 10:34 AM HEALTH SYSTEM REPOSITORY Patient: LOVE [...] underlying CAD. -Chronic ischemic heart disease; s/p KS and multivessel stenting 2009. He had negative [...] planning. -Pt plans to f/u with primary sternman in [place], [place], Dr. Blanchard. Marcus Barrera CNP I personally saw and evaluated the patient. Chart, medications, and laboratories reviewed. Agree with assessment and plan above by Christi Barrera CNP. OK for discharge from a cardiac standpoint. Continue aspirin, statin, beta-brisa. Alexander Alejandro MD [facility] 10/01/2018 12:08 Labs - Last 36 hours [...] 09/29/18 21:08:00 HYDROcodone/Acetaminophen 5 mg/325 mg Tab (Stedman 5 GEq) 2 Tab, PO, Tab, Q4h, [...] Not Given HYDROcodone/Acetaminophen 5 mg/325 mg Tab (Stedman 5 GEq) 1 Tab, PO, Tab, Q4h, [...] PROGRESS NOTES Observed: 10/01/2018 Status: F Source: iDevices 9:38 AM HEALTH SYSTEM REPOSITORY Patient: LOVE PHELAN MRN: [id number] Age: 73 years Sex: Male : 1945 [...] discharged from renal standpoint. Seun Keyes MD [facility]. Pager: [phone] Subjective seen this pm, feels well, denies [...] by Patient Care Services. Performed By: #### 3216-8 #### [facility] POINT OF CARE PROGRESS NOTES Observed: 10/01/2018 Status: F Source: [place] 8:01 AM HEALTH SYSTEM REPOSITORY Patient: LOVE PHELAN MRN: [id number] Age: 73 years Sex: Male : 1945 Associated Diagnoses: None Author: Cristhian Hong DO Assessment Diagnosis/Impression/Plan: Medicine Sign-on Mr Love Phelan is a 73-year-old male with past medical history to include CAD status post stents, hypertension, hyperlipidemia, insulin-dependent diabetes, newly diagnosed CKD stage III, who p resents to [facility] 09/21/2018 for dyspnea Interval workup notable for [...] 0.4 mg, Subl, Q5min, PRN: See Comments Stedman 5 mg/325 mg*: 2 Tab, PO, Q4h, PRN: Pain - Moderate Stedman 5 mg/325 m Tab, PO, Q4h, PRN: [...] 2.5 mg, PO, Daily-Warf Prescriptions Prescribed Diabetic Frostproof: See Instructions, To administer insulin after each [...] PROGRESS NOTES Observed: 10/01/2018 Status: F Source: iDevices 7:36 AM HEALTH SYSTEM REPOSITORY Patient: LOVE PHELAN MRN: (VVQ)-[id number] Age: 73 years Sex: Male : 1945 [...] GLUCOSE POCT Collected: 10/01/2018 Status: F Source: iDevices (UPLOADED) 6:21 AM HEALTH SYSTEM REPOSITORY TYPE CODE TESTS RESULT OUT OF REFERENCE UNITS RANGE LAB 2340-8(LOIN 70-110 mg/dL C) High Glucose 199 POCT-LAB Result Comment: Treatment ranges and critical values established by Patient Care Services. All follow-up actions were taken by Patient Care Services. Performed By: #### 2430-8 #### [facility] POINT OF CARE CBC WITH DIFFERENTIAL Collected: 10/01/2018 Status: F Source: iDevices 5:54 AM HEALTH SYSTEM REPOSITORY TYPE CODE TESTS RESULT OUT OF REFERENCE UNITS RANGE LAB 28296-2(LO 39.0-49.0 % INC) Low Hematocrit 28.8 LAB 30977-6(LO 142-424 thou/mcL INC) Normal Platelet Count 154 LAB 94526-9(LO 0.0-12.0 % INC) Normal Monocyte 9.2 LAB 711-2(LOIN 0.00-0.70 thou/mcL C) Normal Eosinophil 0.10 Absolute LAB 24985-0(LO 11.0-14.8 % INC) RDW Normal 14.7 LAB 16275-5(LO 0.0-2.0 % INC) Normal Basophil 0.8 LAB 742-7(LOIN 0.00-0.90 thou/mcL C) Normal Monocyte 0.50 Absolute LAB 718-7(LOIN 13.5-17.5 gm/dL C) Low Hemoglobin 9.6 LAB 47948-2(LO 22.0-44.0 % INC) Low Lymphocyte 19.4 LAB 731-0(LOIN 1.00-4.80 thou/mcL C) Normal Lymphocyte 1.00 Absolute LAB 27658-6(LO 32.0-36.0 gm/dL INC) MCHC Normal 33.4 LAB 10524-6(LO 4.6-10.2 thou/mcL INC) WBC Normal Count 5.4 LAB 21265-8(LO 0.0-7.0 % INC) Normal Eosinophil 2.7 LAB 64114-8(LO 40.0-70.0 % INC) Normal Neutrophil 67.9 LAB 66288-4(LO 27.0-34.0 Picograms INC) MCH Normal 27.9 LAB 751-8(LOIN 1.80-7.70 thou/mcL C) Normal Neutrophil 3.70 Absolute LAB 704-7(LOIN 0.00-0.20 thou/mcL C) Normal Basophil 0.00 Absolute LAB 55897-6(LO 4.30-5.70 million/mcL INC) Low Red Blood Cell 3.45 Count LAB 04124-6(LO 80.0-97.0 FL INC) MCV Normal 83.5 LAB 29933-3(LO 6.2-12.1 FL INC) MPV Normal 8.6 Performed By: #### 55794-0 #### [facility] [address], [place] PROTHROMBIN TIME Collected: 10/01/2018 Status: F Source: [place] 5:54 AM HEALTH SYSTEM REPOSITORY TYPE CODE TESTS RESULT OUT OF RANGE REFERENCE UNITS LAB 5902-2(HANY 9.3-12.4 Sec NC) High Prothrombin Time (PT) 31.8 LAB 96480-0(LO INC) INR Normal 2.68 Result Comment: The recommended therapeutic INR range for most cardiac indications is 2.0-3.0. For high intensity therapy(ie.mechanical heart valves), the recommended range is 2.5-3.5. Performed By: #### 5902-2 #### [facility] [address], [place] GFRAA Collected: 10/01/2018 Status: F Source: [place] 5:54 AM HEALTH SYSTEM REPOSITORY TYPE CODE TESTS RESULT OUT OF RANGE REFERENCE UNITS LAB 04096-9(LO mL/min INC) GFR Normal Estimated >60 Result Comment: The MDRD equation has not been validated for those over 70 years, women, patients with serious co-morbid conditions, or with extremes of body size, muscle mass of nutritional status. Performed By: #### 62309-2, 58954-4r4, 55517-3, 78683-3 #### [facility] [address], [place] GFRBB Collected: 10/01/2018 Status: F Source: [place] 5:54 AM HEALTH SYSTEM REPOSITORY TYPE CODE TESTS RESULT OUT OF RANGE REFERENCE UNITS LAB 93475-7(LO mL/min INC) GFR Normal Estimated Non 55 Performed By: #### 55454-7, 01502-6q8, 34365-4, 67445-7 #### [facility] [address], [place] MAGNESIUM LEVEL Collected: 10/01/2018 Status: F Source: [place] 5:54 AM HEALTH SYSTEM REPOSITORY TYPE CODE TESTS RESULT OUT OF RANGE REFERENCE UNITS LAB 51877-5(LO 1.8-2.5 mg/dL INC) Normal Magnesium Level 2.1 Performed By: #### 02769-3, 63133-5x9, 85509-7, 00390-1 #### [facility] [address], [place] BASIC METABOLIC PANEL Collected: 10/01/2018 Status: F Source: [place] 5:54 AM HEALTH SYSTEM REPOSITORY TYPE CODE TESTS RESULT OUT OF RANGE REFERENCE UNITS LAB 80818-3(LO 8-20 mg/dL INC) High BUN 36 LAB 90077-1(LO 6.0-18.0 mMol/L INC) Anion Normal Gap 7.0 LAB 31382-0(LO 8.9-10.3 mg/dL INC) Low Calcium Total 7.9 LAB 2951-2(HANY 136-145 mMol/L NC) Low Sodium Level 134 LAB 2160-0(HANY 0.60-1.30 mg/dL NC) Normal Creatinine 1.29 LAB 2823-3(HANY 3.6-5.1 mMol/L NC) Normal Potassium Level 4.5 LAB 00293-0(LO 70-110 mg/dL INC) High Glucose Level 196 LAB 8-9(HANY 22-32 mMol/L NC) Carbon Normal Dioxide Level 28 LAB 2075-0(HANY 98-107 mMol/L NC) Chloride Normal Level 99 Performed By: #### 53864-6, 11008-8y6, 71395-6, 90533-5 #### [facility] [address], [place] XR CHEST 1 VIEW Observed: 10/01/2018 [...] HEALTH SYSTEM REPOSITORY Patient: LOVE PHELAN MRN: ([facility])-[id number] Age: 73 years Sex: Male : 1945 [...] HEALTH SYSTEM REPOSITORY Patient: LOVE PHELAN MRN: ([facility])-[id number] Age: 73 years Sex: Male : 1945 [...] and spironolactone 25mg daily. Seun Keyes MD [facility], [facility]. Pager: [phone] Subjective seen this pm, feels well, denies [...] HEALTH SYSTEM REPOSITORY Patient: LOVE PHELAN MRN: [facility])-[id number] Age: 73 years Sex: Male : 1945 [...] underlying CAD. -Chronic ischemic heart disease; s/p KS and multivessel stenting 2009. He had negative [...] planning per primary team Abdoulaye Stanford MD, [facility] Labs - Last 36 hours (Max 2 [...] 09/29/18 21:08:00 HYDROcodone/Acetaminophen 5 mg/325 mg Tab (Stedman 5 GEq) 2 Tab, PO, Tab, Q4h, [...] Not Given HYDROcodone/Acetaminophen 5 mg/325 mg Tab (Stedman 5 GEq) 1 Tab, PO, Tab, Q4h, [...] HEALTH SYSTEM REPOSITORY Patient: LOVE PHELAN MRN: ([id number])-[id number] Age: 73 years Sex: Male : 1945 Associated Diagnoses: None Author: Cristhian Hong DO Assessment Diagnosis/Impression/Plan: Medicine Sign-on Mr Love Phelan is a 73-year-old male with past medical history to include CAD status post stents, hypertension, hyperlipidemia, insulin-dependent diabetes, newly diagnosed CKD stage III, who p resents to [facility] 09/21/2018 for dyspnea Interval workup notable for [...] 0.4 mg, Subl, Q5min, PRN: See Comments Stedman 5 mg/325 mg*: 2 Tab, PO, Q4h, PRN: Pain - Moderate Stedman 5 mg/325 m Tab, PO, Q4h, PRN: [...] mcg/ml injectable solution: 1 mL, IM, Month ([id number]), Each, 0 Refill(s) glipiZIDE 10 mg oral [...] PROGRESS NOTES Observed: 09/30/2018 Status: C Source: [facility] 8:56 AM HEALTH SYSTEM REPOSITORY Patient: LOVE [...] thou/mcL C) Low Lymphocyte 0.90 Absolute LAB 63764-0(LO 4.6-10.2 thou/mcL INC) WBC Normal Count 4.8 LAB 40127-5(LO 40.0-70.0 % INC) Normal Neutrophil 66.4 LAB 22213-8(LO 0.0-12.0 % INC) Normal Monocyte 10.2 LAB 82115-5(LO 32.0-36.0 gm/dL INC) MCHC Normal 33.3 LAB 742-7(LOIN 0.00-0.90 thou/mcL C) Normal Monocyte 0.50 Absolute LAB 32734-7(LO 39.0-49.0 % INC) Low Hematocrit 27.9 LAB 45898-8(LO 142-424 thou/mcL INC) Low Platelet Count 121 LAB 751-8(LOIN 1.80-7.70 thou/mcL C) Normal Neutrophil 3.20 Absolute LAB 51320-7(LO 0.0-2.0 % INC) Normal Basophil 0.8 LAB 11346-6(LO 27.0-34.0 Picograms INC) MCH Normal 28.0 LAB 704-7(LOIN 0.00-0.20 thou/mcL C) Normal Basophil 0.00 Absolute LAB 718-7(LOIN 13.5-17.5 gm/dL C) Low Hemoglobin 9.3 LAB 26346-6(LO 11.0-14.8 % INC) RDW Normal 14.6 LAB 29074-4(LO 22.0-44.0 % INC) Low Lymphocyte 19.5 LAB 71057-2(LO 4.30-5.70 million/mcL INC) Low Red Blood Cell 3.32 Count LAB 44174-1(LO 6.2-12.1 FL INC) MPV Normal 8.9 LAB 67920-0(LO 0.0-7.0 % INC) Normal Eosinophil 3.1 LAB 82140-4(LO 80.0-97.0 FL INC) MCV Normal 84.0 Performed By: #### 41269-7 #### [facility] [address], [place] PROTHROMBIN TIME Collected: 09/30/2018 Status: F Source: [place] 5:53 AM HEALTH SYSTEM REPOSITORY TYPE CODE TESTS RESULT OUT OF RANGE REFERENCE UNITS LAB 55918-4(HANY NC) Normal INR 1.48 Result Comment: The recommended therapeutic INR range for most cardiac indications is 2.0-3.0. For high intensity therapy(ie.mechanical heart valves), the recommended range is 2.5-3.5. LAB 5902-2(LOINC) 9.3-12.4 Sec Prothrombin High Time (PT) 17.2 Performed By: #### 5902-2 #### [facility] [address], [place] MAGNESIUM LEVEL Collected: 09/30/2018 Status: F Source: [place] 5:53 AM HEALTH SYSTEM REPOSITORY TYPE CODE TESTS RESULT OUT OF RANGE REFERENCE UNITS LAB 87080-1(LO 1.8-2.5 mg/dL INC) Normal Magnesium Level 2.3 Performed By: #### 01348-5, 47016-2 #### [facility] [address], [place] BASIC METABOLIC PANEL Collected: 09/30/2018 Status: F Source: [place] 5:53 AM HEALTH SYSTEM REPOSITORY TYPE CODE TESTS RESULT OUT OF RANGE REFERENCE UNITS LAB 25507-9(LO 70-110 mg/dL INC) High Glucose Level 253 LAB 24861-4(LO 8.9-10.3 mg/dL INC) Low Calcium Total 7.8 LAB 31826-3(LO 6.0-18.0 mMol/L INC) Anion Normal Gap 6.0 LAB 2823-3(HANY 3.6-5.1 mMol/L NC) Normal Potassium Level 4.4 LAB 2075-0(HANY 98-107 mMol/L NC) Chloride Normal Level 100 LAB 2160-0(HANY 0.60-1.30 mg/dL NC) High Creatinine 1.42 LAB 18603-4(LO 8-20 mg/dL INC) High BUN 44 LAB 2951-2(HANY 136-145 mMol/L NC) Low Sodium Level 133 LAB 2028-9(HANY 22-32 mMol/L NC) Carbon Normal Dioxide Level 27 Performed By: #### 19036-9, 44648-3 #### [facility] [address], [place] XR CHEST 1 VIEW Observed: 09/30/2018 Status: F Source: [place] 4:57 AM HEALTH SYSTEM REPOSITORY EXAMINATION TYPE: [...] HEALTH SYSTEM REPOSITORY Patient: LOVE PHELAN MRN: (COL)-[id number] Age: 73 years Sex: Male : 1945 [...] 25mg daily starting tomorrow. Seun Keyes MD [facility]. Pager: [phone] Subjective seen this am, feels well, denies [...] PROGRESS NOTES Observed: 09/29/2018 Status: C Source: [place] 10:32 AM HEALTH SYSTEM REPOSITORY Patient: LOVE PHELAN Age: 73 years Sex: Male : 1945 Associated Diagnoses: None Author: Cristhian Hong DO Assessment Diagnosis/Impression/Plan: Medicine Sign-on Mr Love Phelan is a 73-year-old male with past medical history to include CAD status post stents, hypertension, hyperlipidemia, insulin-dependent diabetes, newly diagnosed CKD stage III, who p resents to [facility] 09/21/2018 for dyspnea Interval workup notable for [...] 0.4 mg, Subl, Q5min, PRN: See Comments Stedman 5 mg/325 mg*: 2 Tab, PO, Q4h, PRN: Pain - Moderate Stedman 5 mg/325 m Tab, PO, Q4h, PRN: [...] mcg/ml injectable solution: 1 mL, IM, Month ([id number]), Each, 0 Refill(s) glipiZIDE 10 mg oral [...] PROTHROMBIN TIME Collected: 09/29/2018 Status: F Source: [place] 9:58 AM HEALTH SYSTEM REPOSITORY TYPE CODE TESTS RESULT OUT OF RANGE REFERENCE UNITS LAB 11199-8(HANY NC) Normal INR 1.28 Result Comment: The recommended therapeutic INR range for most cardiac indications is 2.0-3.0. For high intensity therapy(ie.mechanical heart valves), the recommended range is 2.5-3.5. LAB 5902-2(LOINC) 9.3-12.4 Sec Prothrombin High Time (PT) 14.7 Performed By: #### 5902-2 #### [facility] [address], [place] PROGRESS NOTES Observed: 09/29/2018 Status: C Source: [place] 8:51 AM HEALTH SYSTEM REPOSITORY Patient: LOVE PEHLAN MRN: (COL)-[id number] Age: 73 years Sex: Male : 1945 [...] underlying CAD. -Chronic ischemic heart disease; s/p KS and multivessel stenting 2009. He had negative [...] planning per primary team Abdoulaye Stanford MD, [facility] Labs - Last 36 hours (Max 2 [...] 09/28/18 03:11:00 HYDROcodone/Acetaminophen 5 mg/325 mg Tab (Stedman 5 GEq) 2 Tab, PO, Tab, Q4h, [...] Not Given HYDROcodone/Acetaminophen 5 mg/325 mg Tab (Stedman 5 GEq) 1 Tab, PO, Tab, Q4h, [...] HEALTH SYSTEM REPOSITORY Patient: LOVE PHELAN MRN: [id number] Age: 73 years Sex: Male : 1945 [...] RESULT OUT OF REFERENCE UNITS RANGE LAB 19693-5(LO 40.0-70.0 % INC) High Neutrophil 72.0 LAB 11332-5(LO 80.0-97.0 FL INC) MCV Normal 84.5 LAB 83869-9(LO 0.0-7.0 % INC) Normal Eosinophil 1.5 LAB 68273-9(LO 11.0-14.8 % INC) RDW High 15.1 LAB 20230-7(LO 4.30-5.70 million/mcL INC) Low Red Blood Cell 3.37 Count LAB 704-7(LOIN 0.00-0.20 thou/mcL C) Normal Basophil 0.00 Absolute LAB 731-0(LOIN 1.00-4.80 thou/mcL C) Low Lymphocyte 0.90 Absolute LAB 36518-3(LO 0.0-12.0 % INC) Normal Monocyte 11.7 LAB 711-2(LOIN 0.00-0.70 thou/mcL C) Normal Eosinophil 0.10 Absolute LAB 57755-7(LO 39.0-49.0 % INC) Low Hematocrit 28.5 LAB 24173-3(LO 32.0-36.0 gm/dL INC) MCHC Normal 32.8 LAB 751-8(LOIN 1.80-7.70 thou/mcL C) Normal Neutrophil 4.50 Absolute LAB 49541-6(LO 22.0-44.0 % INC) Low Lymphocyte 14.4 LAB 94285-1(LO 4.6-10.2 thou/mcL INC) WBC Normal Count 6.2 LAB 06133-9(LO 27.0-34.0 Picograms INC) MCH Normal 27.8 LAB 85481-7(LO 6.2-12.1 FL INC) MPV Normal 9.3 LAB 718-7(LOIN 13.5-17.5 gm/dL C) Low Hemoglobin 9.4 LAB 51020-8(LO 142-424 thou/mcL INC) Low Platelet Count 102 LAB 11786-8(LO 0.0-2.0 % INC) Normal Basophil 0.4 LAB 742-7(LOIN 0.00-0.90 thou/mcL C) Normal Monocyte 0.70 Absolute Performed By: #### 56156-9 #### [facility] [address], [place] GFRAA Collected: 09/29/2018 Status: F Source: [place] 6:07 AM HEALTH SYSTEM REPOSITORY TYPE CODE TESTS RESULT OUT OF RANGE REFERENCE UNITS LAB 73644-6(LO mL/min INC) GFR Normal Estimated 53 Result Comment: The MDRD equation has not been validated for those over 70 years, women, patients with serious co-morbid conditions, or with extremes of body size, muscle mass of nutritional status. Performed By: #### 08217-6, 80117-0o4, 51217-4, 03699-4 #### [facility] [address], [place] GFRBB Collected: 09/29/2018 Status: F Source: [place] 6:07 HEALTH SYSTEM REPOSITORY TYPE CODE TESTS RESULT OUT OF RANGE REFERENCE UNITS LAB 19715-5(LO mL/min INC) GFR Normal Estimated Non 44 Performed By: #### 27594-5, 74176-7q3, 99502-7, 53789-2 #### [facility] [address], [place] MAGNESIUM LEVEL Collected: 09/29/2018 Status: F Source: [place] 6:07 HEALTH SYSTEM REPOSITORY TYPE CODE TESTS RESULT OUT OF RANGE REFERENCE UNITS LAB 03129-2(LO 1.8-2.5 mg/dL INC) Normal Magnesium Level 2.4 Performed By: #### 51408-0, 13098-5h7, 46442-9, 47111-0 #### [facility] [address], [place] BASIC METABOLIC PANEL Collected: 09/29/2018 Status: F Source: [place] 6:07 AM HEALTH SYSTEM REPOSITORY TYPE CODE TESTS RESULT OUT OF RANGE REFERENCE UNITS LAB 2160-0(HANY 0.60-1.30 mg/dL NC) High Creatinine 1.57 LAB 84199-3(LO 6.0-18.0 mMol/L INC) Anion Normal Gap 6.0 LAB 2028-9(HANY 22-32 mMol/L NC) Carbon Normal Dioxide Level 27 LAB 20193-4(LO 70-110 mg/dL INC) High Glucose Level 259 LAB 2951-2(HANY 136-145 mMol/L NC) Low Sodium Level 132 LAB 2075-0(HANY 98-107 mMol/L NC) Chloride Normal Level 99 LAB 33145-8(LO 8.9-10.3 mg/dL INC) Low Calcium Total 7.9 LAB 06141-6(LO 8-20 mg/dL INC) High BUN 51 LAB 2823-3(HANY 3.6-5.1 mMol/L NC) Normal Potassium Level 4.4 Performed By: #### 04641-1, 69665-5t2, 84862-1, 72565-6 #### [facility] [address], [place] XR CHEST 1 VIEW Observed: 09/29/2018 Status: F Source: [place] 5:16 AM HEALTH SYSTEM REPOSITORY AP PORTABLE [...] HEALTH SYSTEM REPOSITORY Patient: LOVE PHELAN MRN: (COL)-[id number] Age: 73 years Sex: Male : 1945 Associated Diagnoses: None Author: Stehpy AMBRIZ, Nica Dumont Impression and Plan IMPRESSION: Chronic kidney disease stage III- UPCR 0.9g/g and ultrasound w/ kidneys 13cm bilat presumably with diabetic nephropathy. Hypertension. Type 2 diabetes mellitus. Coronary artery disease status post multivessel PCI in 2009 as above. Severe mitral regurgitation, s/p MVR 09/26. PLAN: - renal funciton stable, making good urine. continue oral hydration Seun Keyes MD [facility] Pager: [phone] Subjective seen this am, transferred out of [...] HEALTH SYSTEM REPOSITORY Patient: LOVE PHELAN MRN: [id number] Age: 73 years Sex: Male : 1945 [...] PROGRESS NOTES Observed: 09/28/2018 Status: C Source: [place] 6:52 AM HEALTH SYSTEM REPOSITORY Patient: LOVE PHELAN MRN: [id number] Age: 73 years Sex: Male : 1945 Associated Diagnoses: None Author: [facility] Cardiology Progress Note CC: Severe MR S/P mitral valve replacement with 27 mm Medtronic Weldon tissue valve through mini thoracotomy Subjective: Patient states he's feeling well, slept good last night. Primary sternman: Dr Blanchard in [place] Objective: Vital signs, labs, MAR, telemetry reviewed. [...] Moderate left atrial enlargement Small PFO with agqw-hr-[id number] shunt. No right to left shunting demonstrated [...] underlying CAD. -Chronic ischemic heart disease; s/p KS and multivessel stenting 2009. He had negative [...] 09/28/18 03:11:00 HYDROcodone/Acetaminophen 5 mg/325 mg Tab (Stedman 5 GEq) 2 Tab, PO, Tab, Q4h, [...] Not Given HYDROcodone/Acetaminophen 5 mg/325 mg Tab (Stedman 5 GEq) 1 Tab, PO, Tab, Q4h, [...] Cardiac Surgery COMPARISON: September 27, 2018. FINDINGS/IMPRESSION: [place] catheters been removed. Right PICC tip to [...] RESULT OUT OF REFERENCE UNITS RANGE LAB 16369-9(LO 27.0-34.0 Picograms INC) MCH Normal 28.0 LAB 751-8(LOIN 1.80-7.70 thou/mcL C) Normal Neutrophil 5.90 Absolute LAB 18710-2(LO 0.0-2.0 % INC) Normal Basophil 0.3 LAB 704-7(LOIN 0.00-0.20 thou/mcL C) Normal Basophil 0.00 Absolute LAB 89333-7(LO 4.6-10.2 thou/mcL INC) WBC Normal Count 8.3 LAB 47881-3(LO 0.0-7.0 % INC) Normal Eosinophil 0.4 LAB 20423-6(LO 6.2-12.1 FL INC) MPV Normal 9.0 LAB 711-2(LOIN 0.00-0.70 thou/mcL C) Normal Eosinophil 0.00 Absolute LAB 29758-2(LO 80.0-97.0 FL INC) MCV Normal 85.4 LAB 90276-7(LO 0.0-12.0 % INC) High Monocyte 12.8 LAB 00845-3(LO 142-424 thou/mcL INC) Low Platelet Count 93 Result Comment: SLIDE PREVIOUSLY REVIEWED EM 09/28/18 06:28 LAB 84316-0(LOINC) 39.0-49.0 % Low Hematocrit 30.6 LAB 742-7(LOINC) 0.00-0.90 thou/m cL Monocyte High Absolute 1.10 LAB 84071-9(LOINC) 11.0-14.8 % RDW High 15.3 LAB 718-7(LOINC) 13.5-17.5 gm/dL Low Hemoglobin 10.0 LAB 14317-0(LOINC) 22.0-44.0 % Low Lymphocyte 14.5 LAB 731-0(LOINC) 1.00-4.80 thou/m cL Normal Lymphocyte Absolute 1.20 LAB 50115-1(LOINC) 32.0-36.0 gm/dL MCHC Normal 32.7 LAB 68351-4(LOINC) 4.30-5.70 millio Low n/mcL Red Blood Cell Count 3.58 LAB 82994-6(LOINC) 40.0-70.0 % High Neutrophil 72.0 Performed By: #### 77608-9 #### [facility] [address], [place] GFRAA Collected: 09/28/2018 Status: F Source: [place] 5:52 AM HEALTH SYSTEM REPOSITORY TYPE CODE TESTS RESULT OUT OF RANGE REFERENCE UNITS LAB 84694-6(LO mL/min INC) GFR Normal Estimated 45 Result Comment: The MDRD equation has not been validated for those over 70 years, women, patients with serious co-morbid conditions, or with extremes of body size, muscle mass of nutritional status. Performed By: #### 41814-8, 12598-9o9, 56379-8, 85815-4 #### [facility] [address], [place] GFRBB Collected: 09/28/2018 Status: F Source: [place] 5:52 AM HEALTH SYSTEM REPOSITORY TYPE CODE TESTS RESULT OUT OF RANGE REFERENCE UNITS LAB 77296-1(LO mL/min INC) GFR Normal Estimated Non 38 Performed By: #### 86257-8, 83194-2o3, 95051-8, 14083-9 #### [facility] [address], [place] MAGNESIUM LEVEL Collected: 09/28/2018 Status: F Source: [place] 5:52 AM HEALTH SYSTEM REPOSITORY TYPE CODE TESTS RESULT OUT OF RANGE REFERENCE UNITS LAB 61630-9(LO 1.8-2.5 mg/dL INC) Normal Magnesium Level 2.5 Performed By: #### 81894-0, 82989-7h5, 10838-0, 14206-7 #### [facility] [address] [place], [place] BASIC METABOLIC PANEL Collected: 09/28/2018 Status: F Source: [facility] 5:52 AM [facility] REPOSITORY TYPE CODE TESTS RESULT OUT OF RANGE REFERENCE UNITS LAB 2075-0(HANY 98-107 mMol/L NC) Chloride Normal Level 101 LAB 87420-8(LO 70-110 mg/dL INC) High Glucose Level 152 LAB 2951-2(HANY 136-145 mMol/L NC) Low Sodium Level 135 LAB 2823-3(HANY 3.6-5.1 mMol/L NC) Normal Potassium Level 4.5 LAB 29488-5(LO 8.9-10.3 mg/dL INC) Low Calcium Total 8.1 LAB 76440-2(LO 8-20 mg/dL INC) High BUN 51 LAB 2160-0(HANY 0.60-1.30 mg/dL NC) High Creatinine 1.79 LAB 16811-2(LO 6.0-18.0 mMol/L INC) Anion Normal Gap 7.0 LAB 2028-9(HANY 22-32 mMol/L NC) Carbon Normal Dioxide Level 27 Performed By: #### 37399-9, 04845-8p2, 65166-5, 03269-3 #### [facility] [address] [place], [place] GLUCOSE POCT Collected: 09/28/2018 Status: F [...] 580 Performed By: #### 2695-5 #### [facility], [address] [place], [place] #### 47373-8, 34941-2, 2078-4, 2955-3 #### [facility] [address] [place], [place] #### 30449-2 #### [facility] [address] [place], [place] CREATININE RANDOM Collected: 09/28/2018 Status: F Source: JED VEL[facility] URINE 2:00 AM [facility]ALTH SYSTEM REPOSITORY TYPE CODE TESTS RESULT OUT OF RANGE REFERENCE UNITS LAB 2161-8(HANY mg/dL NC) Normal Creatinine Urine 135.00 Performed By: #### 2695-5 #### [facility], [address] [place], [place] #### 82715-4, 14423-7, 2078-4, 2955-3 #### [facility] [address] [place] [address] #### 00332-3 #### [facility] [address] [place], [place] PROTEIN CREATININE Collected: 09/28/2018 Status: F Source: [facility] SYD RATIO URINE 2:00 AM HEALTH SYSTEM REPOSITORY TYPE CODE TESTS RESULT OUT OF RANGE REFERENCE UNITS LAB 66314-4(LO INC) Protein Normal / Creatinine 0.6 Ratio Urine Result Comment: Reference Intervals: Normal Proteinuria = <0.1 Mild Proteinuria = 0.1 - 1.0 Moderate Proteinuria = 1.0 - 10.0 Heavy Proteinuria = >10.0 LAB 2888-6(LOINC) <11.9 mg/dL Protein High Random Urine 75.9 LAB 2161-8(LOINC) mg/dL Normal Creatinine Urine 135.00 Performed By: #### 2695-5 #### [facility], [address] [place] [address] #### 54366-9, 57643-5, 2078-4, 2955-3 #### [facility] [address] [place] [address] #### 08021-2 #### [facility] [address] [place], [place] CHLORIDE RANDOM URINE Collected: 09/28/2018 Status: F Source: [facility] 2:00 AM [facility] SYSTEM REPOSITORY TYPE CODE TESTS RESULT OUT OF RANGE REFERENCE UNITS LAB 8-4(HANY mMol/L NC) Normal Chloride 18 Random Urine Performed By: #### 2695-5 #### [facility], [address] [place] [address] #### 09167-0, 00567-2, 2078-4, 2955-3 #### [facility] [address] [place] [address] #### 22137-8 #### [facility] [address] [place], [place] SODIUM RANDOM URINE Collected: 09/28/2018 Status: F Source: [facility] 2:00 AM [facility] REPOSITORY TYPE CODE TESTS RESULT OUT OF RANGE REFERENCE UNITS LAB 2955-3(LOIN 30-90 mMol/L C) Normal Sodium Random 61 Urine Performed By: #### 2695-5 #### [facility], [address] [place] [address] #### 14166-5, 91887-8, 2078-4, 2955-3 #### [facility] [address] [place] [address] #### 14746-9 #### [facility] [address] [place], [place] MICROALBUMIN RANDOM Collected: 09/28/2018 Status: F Source: JED V[facility]AR[place] URINE 2:00 AM [facility] REPOSITORY TYPE CODE TESTS RESULT OUT OF REFERENCE UNITS RANGE LAB 2161-8(HANY mg/dL NC) Creatinine Normal Urine 129.32 LAB 91162-6(LO <30 mg/Gm INC) Microalbumin High Creatinine Ratio 352 Urine Performed By: #### 2695-5 #### [facility], [address] [place] [address] #### 26907-6, 64381-6, 8-4, 2955-3 #### [facility] [address] [place] [address] #### 50155-3 #### [facility] [address] [place], [place] GLUCOSE POCT Collected: 09/28/2018 Status: F [...] 09/27/2018 Status: F Source: JED VELARDE (UPLOADED) 7:40 PM [facility]ALTH SYSTEM REPOSITORY [...] 09/27/2018 Status: F Source: [facility] (UPLOADED) 10:32 AM HEALTH SYSTEM REPOSITORY [...] HEALTH SYSTEM REPOSITORY Patient: LOVE PHELAN MRN: [id number] Age: 73 years Sex: Male : 1945 Associated Diagnoses: None Author: Javon AMBRIZ , [facility] Cardiology Progress Note 09/27/2018 09:32 CC: I [...] Moderate left atrial enlargement Small PFO with [id number] shunt. No right to left shunting demonstrated [...] underlying CAD. -Chronic ischemic heart disease; s/p KS and multivessel stenting 2009. He had negative [...] Not Given HYDROcodone/Acetaminophen 5 mg/325 mg Tab (Stedman 5 GEq) 1 Tab, PO, Tab, Q4h, [...] PROGRESS NOTES Observed: 09/27/2018 Status: C Source: [facility] 8:00 AM [facility] SYSTEM REPOSITORY Patient: LOVE PHELAN MRN: [facility])-[id number] Age: 73 years Sex: Male : 1945 Associated Diagnoses: None Author: Manuela Ybarra CNP Supervising Physician Comments Assessment and Plan 1. Mitral regurg : POD # 1Right anterior mini thoracotomy; Mitral valve replacement with 27 mm Medtronic Weldon tissue valve - Stable post mvr, Pain Q ball for pain - Statin/aspirin/BB - D/C A line/[place] - Keep chest tubes for now. Keep [...] inferior 10% of chest not included in [id number] potentially study accuracy. [place]-Yajaira catheter tip overlies right main pulmonary artery. [...] HEALTH SYSTEM REPOSITORY Patient: LOVE PHELAN MRN: [id number] Age: 73 years Sex: Male : 1945 Associated Diagnoses: None Author: Stephy AMBRIZ, Nica [facility] Impression and Plan IMPRESSION: Chronic kidney disease [...] CXR pending. Will monitor. Seun Keyes MD [facility], [facility]. Pager: [phone] Subjective seen this am, extubated, denies SOB, [...] RESULT OUT OF REFERENCE UNITS RANGE LAB 00989-0(LO 1.8-2.5 mg/dL INC) High Magnesium Level 2.7 Performed By: #### 59916-8, 86310-4 #### [facility] [address] [place], [place] BASIC METABOLIC PANEL Collected: 09/27/2018 Status: F Source: JED [facility] 5:52 AM [facility] SYSTEM REPOSITORY TYPE CODE TESTS RESULT OUT OF RANGE REFERENCE UNITS LAB 75899-3(LO 8.9-10.3 mg/dL INC) Low Calcium Total 8.6 LAB 82990-2(LO 8-20 mg/dL INC) High BUN 50 LAB 18305-2(LO 6.0-18.0 mMol/L INC) Anion Normal Gap 10.0 LAB 2951-2(HANY 136-145 mMol/L NC) Sodium Normal Level 140 LAB 2160-0(HANY 0.60-1.30 mg/dL NC) High Creatinine 1.86 LAB 2823-3(HANY 3.6-5.1 mMol/L NC) Normal Potassium Level 4.6 LAB 90151-2(LO 70-110 mg/dL INC) High Glucose Level 126 LAB 2028-9(HANY 22-32 mMol/L NC) Carbon Normal Dioxide Level 25 LAB 2075-0(HANY 98-107 mMol/L NC) Chloride Normal Level 105 Performed By: #### 61679-0, 06484-4 #### [facility] [address] [place], [place] PROTHROMBIN TIME Collected: 09/27/2018 Status: F Source: [facility] 5:52 AM [facility] REPOSITORY TYPE CODE TESTS RESULT OUT OF RANGE REFERENCE UNITS LAB 32854-2(HANY NC) Normal INR 1.37 Result Comment: The recommended therapeutic INR range for most cardiac indications is 2.0-3.0. For high intensity therapy(ie.mechanical heart valves), the recommended range is 2.5-3.5. LAB 5902-2(LOINC) 9.3-12.4 Sec Prothrombin High Time (PT) 15.8 Performed By: #### 5902-2, 3173-2 #### [facility] [address] [place], [place] PARTIAL THROMBOPLASTIN Collected: 09/27/2018 Status: F Source: [facility] TIME (APTT) 5:52 AM [facility] SYSTEM REPOSITORY TYPE CODE TESTS RESULT OUT OF REFERENCE UNITS RANGE LAB 48005-8(LO 23.6-35.3 Sec INC) Partial Normal Thromboplastin 27.8 (aPTT) Performed By: #### 5902-2, 3173-2 #### [facility] [address] [place], [place] CBC WITH DIFFERENTIAL Collected: 09/27/2018 Status: F Source: [facility] 5:52 AM [facility] REPOSITORY TYPE CODE TESTS RESULT OUT OF RANGE REFERENCE UNITS LAB 92242-2(LO 0.0-7.0 % INC) Normal Eosinophil 0.1 LAB 38388-7(LO 40.0-70.0 % INC) High Neutrophil 80.8 LAB 03255-2(LO 80.0-97.0 FL INC) MCV Normal 82.8 LAB 18404-4(LO 142-424 thou/mcL INC) Low Platelet Count 97 Result Comment: SLIDE PREVIOUSLY REVIEWED LAB 95912-2(LOINC) 0.0-12.0 % Normal Monocyte 10.7 LAB 731-0(LOINC) 1.00-4.80 thou/mcL Low Lymphocyte Absolute 0.70 LAB 33154-5(LOINC) 39.0-49.0 % Low Hematocrit 31.5 LAB 704-7(LOINC) 0.00-0.20 thou/mcL Normal Basophil Absolute 0.00 LAB 718-7(LOINC) 13.5-17.5 gm/dL Low Hemoglobin 10.6 LAB 711-2(LOINC) 0.00-0.70 thou/mcL Normal Eosinophil Absolute 0.00 LAB 40535-3(LOINC) 11.0-14.8 % RDW High 15.3 LAB 751-8(LOINC) 1.80-7.70 thou/mcL Normal Neutrophil Absolute 6.70 LAB 92389-9(LOINC) 0.0-2.0 % Normal Basophil 0.2 LAB 03572-3(LOINC) 4.30-5.70 million/mcL Red Low Blood Cell Count 3.80 LAB 16446-0(LOINC) 22.0-44.0 % Low Lymphocyte 8.2 LAB 80955-7(LOINC) 32.0-36.0 gm/dL MCHC Normal 33.7 LAB 742-7(LOINC) 0.00-0.90 thou/mcL Normal Monocyte Absolute 0.90 LAB 72737-2(LOINC) 4.6-10.2 thou/mcL WBC Normal Count 8.3 LAB 19812-1(LOINC) 27.0-34.0 Picograms MCH Normal 27.9 LAB 94143-1(LOINC) 6.2-12.1 FL MPV Normal 8.6 Performed By: #### 26823-0 #### [facility] [address] [place], [place] GLUCOSE POCT Collected: 09/27/2018 Status: F [...] CARE CBC Collected: 09/27/2018 Status: F Source: [facility] 1:53 AM [facility] SYSTEM REPOSITORY TYPE CODE TESTS RESULT OUT OF RANGE REFERENCE UNITS LAB 21747-7(LO 11.0-14.8 % INC) High RDW 15.0 LAB 87533-6(LO 80.0-97.0 FL INC) MCV Normal 82.4 LAB 81422-2(LO 6.2-12.1 FL INC) MPV Normal 8.8 LAB 77659-3(LO 32.0-36.0 gm/dL INC) MCHC Normal 33.3 LAB 87213-9(LO 39.0-49.0 % INC) Low Hematocrit 32.1 LAB 27059-5(LO 4.6-10.2 thou/mcL INC) WBC Normal Count 8.2 LAB 718-7(LOIN 13.5-17.5 gm/dL C) Low Hemoglobin 10.7 LAB 97090-0(LO 142-424 thou/mcL INC) Low Platelet Count 98 Result Comment: SLIDE PREVIOUSLY REVIEWED LAB 58184-5(LOINC) 27.0-34.0 Picograms Normal MCH 27.5 LAB 56267-5(LOINC) 4.30-5.70 million/mcL Low Red Blood 3.89 Cell Count Performed By: #### 57084-2 #### [facility] [address] [place], [place] POTASSIUM LEVEL Collected: 09/27/2018 Status: F Source: [facility] 1:53 [facility] SYSTEM REPOSITORY TYPE CODE TESTS RESULT OUT OF RANGE REFERENCE UNITS LAB 2823-3(HANY 3.6-5.1 mMol/L NC) Normal Potassium Level 4.5 Performed By: #### 2823-3, 77723-1, - #### [facility] [address] [place], [place] CALCIUM TOTAL Collected: 09/27/2018 Status: F Source: [facility] 1:53 AM [facility] REPOSITORY TYPE CODE TESTS RESULT OUT OF REFERENCE UNITS RANGE LAB 51591-2(HANY 8.9-10.3 mg/dL NC) Low Calcium Total 8.6 Performed By: #### 2823-3, 24708-1, - #### [facility] [address] [place], [place] MAGNESIUM LEVEL Collected: 09/27/2018 Status: F Source: JED [facility]ELAR[place] 1:53 AM [facility] SYSTEM REPOSITORY TYPE CODE TESTS RESULT OUT OF REFERENCE UNITS RANGE LAB 79954-6(LO 1.8-2.5 mg/dL INC) High Magnesium Level 2.7 Performed By: #### 2823-3, 87414-2, 69823- 9 #### [facility] [address] [place], [place] GLUCOSE POCT Collected: 09/27/2018 Status: F [...] RESULT OUT OF REFERENCE UNITS RANGE LAB 96165-1(LO 4.30-5.70 million/mcL INC) Low Red Blood Cell 4.00 Count LAB 30269-9(LO 6.2-12.1 FL INC) MPV Normal 8.9 LAB 93049-1(LO 32.0-36.0 gm/dL INC) MCHC Normal 33.3 LAB 56716-8(LO 39.0-49.0 % INC) Low Hematocrit 33.4 LAB 06274-7(LO 4.6-10.2 thou/mcL INC) WBC Normal Count 7.0 LAB 24146-7(LO 27.0-34.0 Picograms INC) MCH Normal 27.8 LAB 718-7(LOIN 13.5-17.5 gm/dL C) Low Hemoglobin 11.1 LAB 30951-0(LO 142-424 thou/mcL INC) Low Platelet Count 98 Result Comment: Result confirmed by slide review. LAB 43738-5(LOINC) 11.0-14.8 % High RDW 14.9 LAB 82492-0(LOINC) 80.0-97.0 FL Normal MCV 83.6 Performed By: #### 08628-5 #### [facility] [address] [place], [place] POTASSIUM LEVEL Collected: 09/26/2018 Status: F Source: [facility] 9:58 PM [facility] SYSTEM REPOSITORY TYPE CODE TESTS RESULT OUT OF RANGE REFERENCE UNITS LAB 2823-3(HANY 3.6-5.1 mMol/L NC) Normal Potassium Level 4.5 Performed By: #### 2823-3, 62973-2, - 9 #### [facility] [address] [place], [place] CALCIUM TOTAL Collected: 09/26/2018 Status: F Source: [place] 9:58 PM [facility] SYSTEM REPOSITORY TYPE CODE TESTS RESULT OUT OF REFERENCE UNITS RANGE LAB 66221-0(HANY 8.9-10.3 mg/dL NC) Low Calcium Total 8.6 Performed By: #### 2823-3, 24385-7, - 9 #### [facility] [address] [place], [place] MAGNESIUM LEVEL Collected: 09/26/2018 Status: F Source: [place] 9:58 PM [facility] SYSTEM REPOSITORY TYPE CODE TESTS RESULT OUT OF REFERENCE UNITS RANGE LAB 57290-3(LO 1.8-2.5 mg/dL INC) High Magnesium Level 2.8 Performed By: #### 2823-3, 86797-6, - 9 #### [facility] [address] [place], [place] GLUCOSE POCT Collected: 09/26/2018 Status: F Source: [facility] (UPLOADED) 7:55 PM [facility]ALTH SYSTEM REPOSITORY TYPE [...] were taken by Patient Care Services. LAB 53196-3(LOINC) VOL% O2 Content POCT Normal 14.7 LAB 2075-0(LOINC) 98-1 mEq/L 06 Chloride POCT Normal 103 LAB 98772-2(LOINC) 0.5- mMol/L 1.6 Lactate POCT Normal 1.6 LAB 2708-6(LOINC) 95.0 % O2 -99. Saturation Arterial Normal 0 POCT 95.5 LAB 54751-8(LOINC) 3.5- mEq/L 5.0 Potassium POCT Normal 4.6 LAB 89999-7(LOINC) FiO2 POCT Normal 36.0 LAB 17482-8(LOINC) 39-4 % Low 9 Hematocrit POCT 34 LAB 14018-1(LOINC) 21.0 mMol/L -28. HCO3 Arterial POCT Normal 0 27.5 LAB 2951-2(LOINC) 136- mEq/L 146 Sodium POCT Normal 141 LAB 2614-6(LOINC) 0.2- % 0.6 Methemoglobin POCT Normal 0.6 LAB 07047-7(LOINC) Sample Type POCT Normal Arterial LAB 2703-7(LOINC) 83-1 mmHg pO2 Low 08 Arterial POCT 77 LAB 70805-4(LOINC) 94.0 % O2 Low -99. Hemoglobin POCT 0 93.3 LAB 55201-9(LOINC) 1.12 mMol/L -1.3 Calcium Ionized POCT Normal 2 1.21 LAB 2026-3(LOINC) 22.0 mMol/L -29. Total CO2 Arterial Normal 0 POCT 25.5 LAB 2019-8(LOINC) 32-4 mmHg 8 pCO2 Arterial POCT Normal 46 LAB 93856-2(LOINC) 70-1 mg/dL 10 Glucose POCT High 207 LAB 64592-5(LOINC) 10.0 mEq/L -20. Anion Gap POCT Normal 0 10.7 LAB 23403-8(LOINC) -2.0 mMol/L -3.0 Base Excess POCT Normal 2.0 LAB 17847-8(LOINC) % Carboxyhemoglobin POCT Normal 1.7 Result Comment: NON SMOKERS <1.5% SMOKERS 1.5 - 9.0% Performed By: #### 62147-1g5 #### POINT OF CARE CBC Collected: 09/26/2018 Status: F Source: [facility] 6:12 PM [facility] SYSTEM REPOSITORY TYPE CODE TESTS RESULT OUT OF REFERENCE UNITS RANGE LAB 93296-7(LO 6.2-12.1 FL INC) MPV Normal 8.9 LAB 93349-0(LO 80.0-97.0 FL INC) MCV Normal 83.6 LAB 718-7(LOIN 13.5-17.5 gm/dL C) Low Hemoglobin 11.2 LAB 85499-3(LO 142-424 thou/mcL INC) Low Platelet Count 104 LAB 00977-1(LO 32.0-36.0 gm/dL INC) MCHC Normal 33.3 LAB 46349-3(LO 4.30-5.70 million/mcL INC) Low Red Blood Cell 4.03 Count LAB 39519-6(LO 39.0-49.0 % INC) Low Hematocrit 33.7 LAB 35201-1(LO 4.6-10.2 thou/mcL INC) WBC Normal Count 7.1 LAB 99336-0(LO 11.0-14.8 % INC) RDW High 15.3 LAB 11201-0(LO 27.0-34.0 Picograms INC) MCH Normal 27.8 Performed By: #### 95028-7 #### [facility] [address] [place], [place] CALCIUM TOTAL Collected: 09/26/2018 Status: F Source: [facility] 6:12 PM [facility] SYSTEM REPOSITORY TYPE CODE TESTS RESULT OUT OF REFERENCE UNITS RANGE LAB 95796-8(HANY 8.9-10.3 mg/dL NC) Low Calcium Total 8.8 Performed By: #### 58307-4, 48994-6, 2823- 3 #### [facility] [address] [place], [place] MAGNESIUM LEVEL Collected: 09/26/2018 Status: F Source: [place] 6:12 PM [facility] SYSTEM REPOSITORY TYPE CODE TESTS RESULT OUT OF REFERENCE UNITS RANGE LAB 82907-9(LO 1.8-2.5 mg/dL INC) High Magnesium Level 2.9 Performed By: #### 54355-1, 52701-3, 2823- 3 #### [facility] [address] [place], [place] POTASSIUM LEVEL Collected: 09/26/2018 Status: F Source: [place] 6:12 PM [facility] SYSTEM REPOSITORY TYPE CODE TESTS RESULT OUT OF RANGE REFERENCE UNITS LAB 2823-3(HANY 3.6-5.1 mMol/L NC) Normal Potassium Level 4.5 Performed By: #### 26513-8, 10627-9, 2823- 3 #### [facility] [address] [place], [place] BLOOD GAS POCT ABG Collected: 09/26/2018 Status: F Source: [place] LYTES LACTATE 5:28 PM [facility]ALTH SYSTEM (UPLOAD) REPOSITORY TYPE CODE TESTS RESULT OUT OF REFERENCE UNITS RANGE LAB 49823-5(L 21.0-28.0 mMol/L OINC) HCO3 Arterial POCT Normal 26.1 LAB 59312-8(L -2.0-3.0 mMol/L OINC) Base Excess POCT Normal 1.2 LAB 84719-6(L % OINC) Carboxyhemoglobin POCT Normal 1.7 Result Comment: NON SMOKERS <1.5% SMOKERS 1.5 - 9.0% LAB 71003-4(LOINC) 70-110 mg/dL High Glucose POCT 207 LAB 15199-5(LOINC) 10.0-20.0 mEq/L Anion Normal Gap POCT 11.5 LAB 2703-7(LOINC) 83-108 mmHg pO2 Normal Arterial POCT 84 LAB 98865-2(LOINC) 0.5-1.6 mMol/L High Lactate POCT 1.9 LAB 718-7(LOINC) 13.5-17.5 gm/dL Low Hemoglobin POCT 11.1 LAB 2075-0(LOINC) 98-106 mEq/L Normal Chloride POCT 104 LAB 2019-8(LOINC) 32-48 mmHg pCO2 Normal Arterial POCT 42 LAB 10141-3(LOINC) FiO2 Normal POCT 40.0 LAB 94621-8(LOINC) 39-49 % Low Hematocrit POCT 34 LAB 14476-7(LOINC) 3.5-5.0 mEq/L Normal Potassium POCT 4.5 LAB 45227-2(LOINC) Normal Sample Type Arterial POCT LAB 2744-1(LOINC) 7.35-7.45 Blood Normal Gas pH Arterial 7.40 POCT Result Comment: A result of UNABLE indicates the actual value could not be calculated. Treatment ranges and critical values established by Patient Care Services. All follow-up actions were taken by Patient Care Services. LAB 88026-6(LOINC) VOL% O2 Content POCT Normal 14.9 LAB 2951-2(LOINC) 136-14 mEq/L 6 Sodium POCT Normal 141 LAB 2614-6(LOINC) 0.2-0. % 6 Methemoglobin Normal POCT 0.6 LAB 14182-8(LOINC) 1.12-1 mMol/L .32 Calcium Ionized Normal POCT 1.23 LAB 2708-6(LOINC) 95.0-9 % 9.0 O2 Saturation Normal Arterial POCT 97.2 LAB 2026-3(LOINC) 22.0-2 mMol/L 9.0 Total CO2 Normal Arterial POCT 24.1 LAB 17344-5(LOINC) 94.0-9 % 9.0 O2 Hemoglobin Normal POCT 95.0 Performed By: #### 97205-5t7 #### POINT OF CARE BLOOD GAS POCT ABG Collected: 09/26/2018 Status: F Source: [facility] HEMANT LACTATE 4:40 PM [facility]ALTH SYSTEM (UPLOAD) REPOSITORY TYPE CODE TESTS RESULT OUT OF REFERENCE UNITS RANGE LAB 2951-2(LO 136-146 mEq/L INC) Sodium POCT Normal 140 LAB 17289-4(L 70-110 mg/dL OINC) Glucose POCT High 227 LAB 06727-5(L OINC) Sample Type POCT Normal Arterial LAB 6-3(LO 22.0-29.0 mMol/L INC) Total CO2 Arterial Normal POCT 23.9 LAB 33267-0(L 94.0-99.0 % OINC) O2 Hemoglobin POCT Low 92.8 LAB 14596-7(L % OINC) Carboxyhemoglobin POCT Normal 1.7 Result Comment: NON SMOKERS <1.5% SMOKERS 1.5 - 9.0% LAB 2703-7(LOINC) 83-108 mmHg Low pO2 Arterial POCT 68 LAB 2075-0(LOINC) 98-106 mEq/L Chloride POCT Normal 103 LAB 25087-9(LOINC) 39-49 % Low Hematocrit POCT 34 LAB 2614-6(LOINC) 0.2-0.6 % Methemoglobin Normal POCT 0.6 LAB 2708-6(LOINC) 95.0-99.0 % Low O2 Saturation Arterial POCT 94.9 LAB 39143-9(LOINC) -2.0-3.0 mMol/L Base Excess Normal POCT 1.6 LAB 35716-7(LOINC) 3.5-5.0 mEq/L Potassium POCT Normal 4.8 LAB 82800-2(LOINC) 1.12-1.32 mMol/L Calcium Normal Ionized POCT 1.22 LAB 96983-3(LOINC) 0.5-1.6 mMol/L Lactate POCT High 1.9 LAB 33414-7(LOINC) VOL% O2 Content Normal POCT 14.6 LAB 718-7(LOINC) 13.5-17.5 gm/dL Low Hemoglobin POCT 11.2 LAB 55396-2(LOINC) 10.0-20.0 mEq/L Anion Gap POCT Normal 11.2 LAB 32394-7(LOINC) FiO2 POCT Normal 40.0 LAB 2744-1(LOINC) 7.35-7.45 Blood Gas pH Normal Arterial POCT 7.43 Result Comment: A result of UNABLE indicates the actual value could not be calculated. Treatment ranges and critical values established by Patient Care Services. All follow-up actions were taken by Patient Care Services. LAB 2019-8(LOINC) 32-48 mmHg Normal pCO2 Arterial POCT 39 LAB 19017-1(LOINC) 21.0-28.0 mMol/L Normal HCO3 Arterial POCT 25.9 Performed By: #### 36474-6m6 #### POINT OF CARE GLUCOSE POCT Collected: [...] HEALTH SYSTEM REPOSITORY Patient: LOVE PHELAN MRN: ([facility])-[id number] Age: 73 years Sex: Male : 1945 [...] HEALTH SYSTEM REPOSITORY Patient: LOVE PHELAN MRN: ([facility])-[id number] Age: 73 years Sex: Male : 1945 [...] HEALTH SYSTEM REPOSITORY Patient: LOVE PHELAN MRN: ([facility])-[id number] Age: 73 years Sex: Male : 1945 [...] side port below the esophagogastric junction. A [place]-Yajaira catheter was placed from a left internal [...] right lung base in the subhilar space. Faith thanks you for the opportunity to care for your patient. Workstation ID: [id number] FINAL REPORT Dictated By: Eladio Aldridge MD 09/26/2018 14:59 Assigned Physician: Eladio Aldridge MD Reviewed and Electronically Signed By: Eladio Aldridge MD 09/26/2018 15:03 Transcribed by: CATERINA 09/26/2018 14:59 Technologist: SARAHY TRANSESOPHAGEAL ECHO TXT Observed: 09/26/2018 Status: F Source: [facility] 2:45 PM HEALTH SYSTEM REPOSITORY Transesophageal Echocardiography Report (CLAIRE) Demographics Patient Name TAPAN Plasencia Date of 1945 Patient Number [id number] Age 73 year(s) Visit Number [id number] Gender Male Room Number OR Admission Status Inpatient Referring Mariano Moreno Fruit Packer aRfal Bragg RDCS Physician Christi Morris MD Ordering [...] CLAIRE Performed By: the attending and the questioned documents examiner Type of Anesthesia: General anesthesia CONCLUSIONS SUMMARY [...] Contracta: Signature Observed: 09/26/2018 Status: F Source: [facility] TEST RESULT EJECTION 2:45 PM HEALTH SYSTEM FRACTION REPOSITORY 45-50 BLOOD GAS POCT ABG Collected: 09/26/2018 Status: F Source: [place] LYTES LACTATE 2:33 PM [facility]ALTH SYSTEM (UPLOAD) REPOSITORY TYPE CODE TESTS RESULT OUT OF REFERENCE UNITS RANGE LAB 95544-5(L 10.0-20.0 mEq/L OINC) Anion Gap POCT Normal 14.7 LAB 34051-3(L 21.0-28.0 mMol/L OINC) HCO3 Arterial POCT Normal 23.9 LAB 2614-6(LO 0.2-0.6 % INC) Methemoglobin POCT Normal 0.5 LAB 25906-6(L 39-49 % OINC) Low Hematocrit POCT 33 LAB 2026-3(LO 22.0-29.0 mMol/L INC) Total CO2 Arterial Normal POCT 22.1 LAB 2703-7(LO 83-108 mmHg INC) pO2 Arterial POCT High 205 LAB 60023-5(L -2.0-3.0 mMol/L OINC) Base Excess POCT Normal -0.8 LAB 2075-0(LO 98-106 mEq/L INC) Chloride POCT Normal 102 LAB 85640-3(L % OINC) Carboxyhemoglobin POCT Normal 1.4 Result Comment: NON SMOKERS <1.5% SMOKERS 1.5 - 9.0% LAB 18626-1(LOINC) 94.0-99.0 % O2 Normal Hemoglobin POCT 98.0 LAB 83826-3(LOINC) Normal Sample Type Arterial POCT LAB 2019-8(LOINC) 32-48 mmHg pCO2 Normal Arterial POCT 39 LAB 09752-1(LOINC) VOL% O2 Normal Content POCT 15.3 LAB 32267-4(LOINC) 1.12-1.32 mMol/L Low Calcium Ionized 0.91 POCT LAB 35542-3(LOINC) 3.5-5.0 mEq/L High Potassium POCT 5.1 LAB 06042-2(LOINC) 0.5-1.6 mMol/L High Lactate POCT 2.9 LAB 72850-3(LOINC) 70-110 mg/dL High Glucose POCT 228 LAB [...] 136-146 mEq/L Sodium Normal POCT 141 LAB 15701-5(LOINC) FiO2 Normal POCT 100.0 LAB 718-7(LOINC) 13.5-17.5 gm/dL Low Hemoglobin POCT 10.8 Performed By: #### [id number] #### POINT OF CARE CBC Collected: 09/26/2018 Status: F Source: [facility] REPOSITORY TYPE CODE TESTS RESULT OUT OF REFERENCE UNITS RANGE LAB 08441-7(LO 142-424 thou/mcL INC) Normal Platelet Count 151 LAB 51441-7(LO 32.0-36.0 gm/dL INC) MCHC Normal 32.7 LAB 50099-4(LO 80.0-97.0 FL INC) MCV Normal 83.9 LAB 718-7(LOIN 13.5-17.5 gm/dL C) Low Hemoglobin 10.7 LAB 70765-2(LO 39.0-49.0 % INC) Low Hematocrit 32.8 LAB 93284-1(LO 4.30-5.70 million/mcL INC) Low Red Blood Cell 3.91 Count LAB 90268-8(LO 6.2-12.1 FL INC) MPV Normal 9.0 LAB 23296-3(LO 11.0-14.8 % INC) RDW High 14.9 LAB 05139-5(LO 27.0-34.0 Picograms INC) MCH Normal 27.4 LAB 80541-3(LO 4.6-10.2 thou/mcL INC) WBC High Count 16.8 Performed By: #### 75380-9 #### [facility] [address] [place], [place] GFRAA Collected: 09/26/2018 Status: F Source: [facility] REPOSITORY TYPE CODE TESTS RESULT OUT OF RANGE REFERENCE UNITS LAB 74595-2(LO mL/min INC) GFR Normal Estimated 50 Result Comment: The MDRD equation has not been validated for those over 70 years, women, patients with serious co-morbid conditions, or with extremes of body size, muscle mass of nutritional status. Performed By: #### 45658-8, 33454-3e1, 21779-3, 96174-2 #### [facility] [address] [place], [place] GFRBB Collected: 09/26/2018 Status: F Source: [facility] REPOSITORY TYPE CODE TESTS RESULT OUT OF RANGE REFERENCE UNITS LAB 67624-2(LO mL/min INC) GFR Normal Estimated Non 41 Performed By: #### 39867-5, 39607-5x3, 18338-7, 44578-4 #### [facility] [address] [place], [place] MAGNESIUM LEVEL Collected: 09/26/2018 Status: F Source: [facility] REPOSITORY TYPE CODE TESTS RESULT OUT OF REFERENCE UNITS RANGE LAB 66464-7(LO 1.8-2.5 mg/dL INC) High Magnesium Level 3.1 Performed By: #### 39202-4, 02008-9b7, 48858-8, 30028-1 #### [facility] [address] [place], [place] BASIC METABOLIC PANEL Collected: 09/26/2018 Status: F Source: [facility] REPOSITORY TYPE CODE TESTS RESULT OUT OF RANGE REFERENCE UNITS LAB 2160-0(HANY 0.60-1.30 mg/dL NC) High Creatinine 1.66 LAB 75528-2(LO 8-20 mg/dL INC) High BUN 47 LAB 60168-2(LO 6.0-18.0 mMol/L INC) Anion Normal Gap 16.0 LAB 2075-0(HANY 98-107 mMol/L NC) Chloride Normal Level 102 LAB 2951-2(HANY 136-145 mMol/L NC) Sodium Normal Level 139 LAB 2823-3(HANY 3.6-5.1 mMol/L NC) Normal Potassium Level 5.1 LAB 65408-1(LO 70-110 mg/dL INC) High Glucose Level 243 LAB 33751-5(LO 8.9-10.3 mg/dL INC) Low Calcium Total 7.9 LAB 2028-9(HANY 22-32 mMol/L NC) Low Carbon Dioxide Level 21 Performed By: #### 36218-2, 25612-8n1, 19459-1, 04785-5 #### [facility] [address] [place], [place] PROTHROMBIN TIME Collected: 09/26/2018 Status: F Source: [facility] 2:[facility] REPOSITORY TYPE CODE TESTS RESULT OUT OF RANGE REFERENCE UNITS LAB 5902-2(HANY 9.3-12.4 Sec NC) High Prothrombin Time (PT) 15.1 LAB 30800-3(LO INC) INR Normal 1.31 Result Comment: The recommended therapeutic INR range for most cardiac indications is 2.0-3.0. For high intensity therapy(ie.mechanical heart valves), the recommended range is 2.5-3.5. Performed By: #### 5902-2, 3173-2 #### [facility] [address] [place], [place] PARTIAL THROMBOPLASTIN Collected: 09/26/2018 Status: F Source: [facility] TIME (APTT) 2:10 PM [facility] REPOSITORY TYPE CODE TESTS RESULT OUT OF REFERENCE UNITS RANGE LAB 06457-6(LO 23.6-35.3 Sec INC) Partial Normal Thromboplastin 28.2 (aPTT) Performed By: #### 5902-2, 3173-2 #### [facility] [address] [place], [place] OR NURSING Observed: 09/26/2018 Status: C Source: [facility] 1:55 PM [facility] SYSTEM REPOSITORY [facility] OR Nursing Record Summary Primary Physician: Mariano Moreno MD Finalized Date/Time: 09/28/18 16:00:27 Pt. Name: LOVE PHELAN Erinn WongB./Sex: 1945 Male Med Rec #: [id number] Physician: Jose F Nagel MD Financial #: [id number] Pt. Type: I Room/Bed: [address] [place] [address] Admit/Disch: 09/21/18 05:02:00 - Institution: [facility] Case Times Entry 1 Patient Times Patient In Room 09/26/18 07:30:00 Patient Out Room 09/26/18 14:12:00 Surgical Times Start Time 09/26/18 08:57:00 Stop Time 09/26/18 13:55:00 Last Modified By: Reyna Rodriguez RN 09/26/18 14:15:41 [facility] Case Attendees Entry 1 Entry 2 Entry 3 Case Attendee Berry AMBRIZ , Mariano Espino MD , Zachary AMBROCIO, Akira Mcghee Role Performed Primary Surgeon Anesthesiologist PA Die Repairer Trimmer Dies Time In 09/26/18 07:30:00 09/26/18 07:30:00 09/26/18 [...] Attendee Asha Ivan, Carlos Carney RN , Ramnoa Goff Role Performed First Scrub Commercial Driver RN Time In 09/26/18 07:30:00 09/26/18 07:30:00 [...] Reyna Dumont Case, Attendee Other Role Performed encapsulator Assistant Baseball Coach Time In 09/26/18 07:30:00 09/26/18 07:30:00 Time Out 09/26/18 14:12:00 09/26/18 14:12:00 Procedure Repair or Replace Valve Repair or Replace Valve Mitral Min Invas(Left) Mitral Min Invas(Left) Attendee Comment [employer] Relief Reason Last Modified By: Reyna Rodriguez RN, RN, Emily A 09/26/18 14:15:42 09/26/18 14:15:42 [facility] General Case Inspector Metal Fabricating 1 OR CO [facility] 01 ASA Class [...] the Operative Report. Sarah FLANAGANN, RN, nurse coding compliance auditor [facility] Catheters, Drains,Tubes Entry 1 Entry 2 Entry 3 Device Type CATH BARD SPENCE TRAY DRAIN CHANNEL ROUND DRAIN CHANNEL ROUND 16FR TEMP SEN W/URINE 24FR [id number] 24FR [id number] METER [id number] Present on Arrival? No No No Location Bladder CHEST CHEST Inserted By Rommel DHALIWAL , Ramona Moreno MD , Mariano Mroeno MD , Mariano Comments DC'd at End of Case? No No No DC'd By Last Modified By: Reyna Rodriguez RN, RN , Reyna Goldsmith RN 09/26/18 08:29:54 09/26/18 12:42:01 09/26/18 12:42:01 Entry 4 Device Type DRAIN CHANNEL ROUND 24FR [id number] Present on Arrival? No Location CHEST Inserted By Berry AMBRIZ , Mariano Comments DC'd at End of Case? No DC'd By Last Modified By: Reyna Rodriguez RN 09/26/18 13:25:00 [facility] Patient Positioning Entry 1 Skin Condition Unchanged [...] By: Reyna Rodriguez RN 09/26/18 08:31:01 [facility] Skin Prep Entry 1 Hair Removal Method None Skin Prep Prep Agents Betadine with Alcohol Prep Site chin to knees Prep by Ramona Carney RN Procedure Repair or Replace Valve Mitral Min Invas(Left) Last Modified By: Reyna Rodriguez RN 09/26/18 08:31:33 [facility] Fire Risk Assessment Entry 1 Alcohol Based [...] 02 (less than 30% when able) [facility] Surgical Safety Checklist Entry 1 TIme Out [...] By: Reyna Rodriguez RN 09/26/18 09:06:31 [facility] Cautery Entry 1 Entry 2 Cautery and [...] Meds Administered By Berry AMBRIZ , Mariano Moreno MD , Mariano Moreno MD , Mariano Medication Comment Last Modified By: Jennifer DHALIWAL , Reyna Rodriguez RN , Reyna Goldsmith RN 09/26/18 08:32:30 09/26/18 12:41:43 09/26/18 12:41:43 [facility] Implants Entry 1 Procedure Repair or Replace Valve Implant/Explant Implant Mitral Min Invas(Left) Provided by Surgeon No Implant Identification Description VALVE MITRAL [id number] Supervisor Metal Cans [employer] 27MM CINCH MILLER [id number] Catalog Number [id number] Lot Number N/A Serial Number [id number] Implant Site HEART Quantity 1 Expiration Date 03/02/21 No Expiration Date No Tissue Tissue Implanted Yes Material Used to 0.9% SODIUM CHLORIDE Prepare/Process IRRIGATION [id number] Tissue [employer] BRAND USED FOR SALINE RINSE [id number] EXP 07/2021 Processed By: Ramona Carney RN [...] , Ramona Ontiveros RN Count Performed with Asha Ivan Kristin [place], Kristin Comment Procedure Repair or Replace Valve Repair or Replace Valve Repair or Replace Valve Mitral Min Invas(Left) Mitral Min Invas(Left) Mitral Min Invas(Left) Last Modified By: Reyna Rodriguez RN, RN, Emily A Corzatt RN Reyna Tim 09/26/18 08:32:50 09/26/18 13:43:04 09/26/18 13:43:04 [facility] Dressing/Packing Entry 1 Dressing Dressing/Packing eye pad/tegaderm to Dressing/Packing groins/central line Type groins. Site biopatch/tegaderm to central line Last Modified By: Reyna Rodriguez RN 09/26/18 09:05:11 [facility] Temperature Regulation Entry 1 Device CO UNIT LEFTY HUGGER Unit ID n/a Site tube warmer Warm blankets, Warm fluids Last Modified By: Reyna Rodriguez RN 09/26/18 09:06:44 [facility] Final Count Entry 1 Sponges Correct Yes Sharps/Miscellaneous Yes Correct Instruments Correct Yes Count Performed with Asha Ivan RN Performing Count Reyna Rodriguez RN Surgeon Notified of Yes Count X-ray Taken No Procedure Repair or Replace Valve Mitral Min Invas(Left) Last Modified By: Reyna Rodriguez RN 09/26/18 13:43:16 [facility] PNDS Risk of Impaired Skin Entry 1 [...] Modified By: Reyna Rodriguez RN 09/26/18 09:07:08 [facility] PNDS Risk of Infection Entry 1 INTERVENTIONS/ACTIVI [...] By: Reyna Rodriguez RN 09/26/18 09:07:11 [facility] PNDS Risk of Injury Entry 1 [...] By: Reyna Rodriguez RN 09/26/18 09:07:16 [facility] Patient Debriefing Entry 1 Patient Debriefing [...] mEq/L INC) Sodium POCT Normal 139 LAB 81496-0(L -2.0-3.0 mMol/L OINC) Low Base Excess POCT -4.9 LAB 2708-6(LO 95.0-99.0 % INC) O2 Saturation Arterial High POCT 99.9 LAB 44437-8(L 1.12-1.32 mMol/L OINC) Calcium Ionized POCT Normal 1.18 LAB 80758-3(L 39-49 % OINC) Low Hematocrit POCT 30 LAB 30756-6(L 70-110 mg/dL OINC) Glucose POCT High 224 LAB 2026-3(LO 22.0-29.0 mMol/L INC) Low Total CO2 Arterial POCT 20.3 LAB 2703-7(LO 83-108 mmHg INC) pO2 Arterial POCT High 233 LAB 54180-6(L 3.5-5.0 mEq/L OINC) Potassium POCT Normal 5.0 LAB 73808-2(L 94.0-99.0 % OINC) O2 Hemoglobin POCT Normal 98.2 LAB 79450-6(L % OINC) Carboxyhemoglobin POCT Normal 1.1 Result Comment: NON SMOKERS <1.5% SMOKERS 1.5 - 9.0% LAB 22166-5(LOINC) FiO2 POCT Normal 100.0 LAB 04384-8(LOINC) Sample Type POCT Normal Arterial LAB 718-7(LOINC) 13.5-1 gm/dL Low 7.5 Hemoglobin POCT 9.7 LAB 52542-1(LOINC) 10.0-2 mEq/L 0.0 Anion Gap POCT Normal 15.0 LAB 85185-2(LOINC) VOL% O2 Content POCT Normal 13.9 LAB 30422-2(LOINC) 21.0-2 mMol/ 8.0 L HCO3 Arterial Normal POCT 21.2 LAB 2614-6(LOINC) 0.2-0. % 6 Methemoglobin Normal POCT 0.5 LAB 31536-9(LOINC) 0.5-1. mMol/ High 6 L Lactate POCT 4.1 LAB 2744-1(LOINC) 7.35-7 Low .45 Blood Gas pH Arterial POCT 7.30 Result Comment: A result of UNABLE indicates the actual value could not be calculated. Treatment ranges and critical values established by Patient Care Services. All follow-up actions were taken by Patient Care Services. LAB 2075-0(LOINC) 98-106 mEq/L Normal Chloride POCT 103 Performed By: #### [id number] #### POINT OF CARE BLOOD GAS POCT ABG Collected: 09/26/2018 Status: F Source: [place] [facility] 12:51 PM [facility] (UPLOAD) REPOSITORY TYPE CODE TESTS RESULT OUT OF REFERENCE UNITS RANGE LAB 2614-6(LO 0.2-0.6 % INC) Methemoglobin POCT Normal 0.3 LAB 2708-6(LO 95.0-99.0 % INC) O2 Saturation Arterial High POCT 99.8 LAB 62375-5(L 3.5-5.0 mEq/L OINC) Potassium POCT High 5.1 LAB 80200-8(L % OINC) Carboxyhemoglobin POCT Normal 1.1 Result Comment: NON SMOKERS <1.5% SMOKERS 1.5 - 9.0% LAB 35501-0(LOINC) 94.0-99.0 % O2 Normal Hemoglobin POCT 98.5 LAB 62065-4(LOINC) 1.12-1.32 mMol/L Low Calcium Ionized 0.97 POCT LAB 24830-3(LOINC) 21.0-28.0 mMol/L HCO3 Low Arterial POCT 19.2 LAB 2951-2(LOINC) 136-146 mEq/L Normal Sodium POCT 141 LAB 44506-0(LOINC) 0.5-1.6 mMol/L High Lactate POCT 4.3 LAB 42213-7(LOINC) 70-110 mg/dL High Glucose POCT 220 LAB 36745-7(LOINC) 10.0-20.0 mEq/L Anion Normal Gap POCT 19.8 LAB 2703-7(LOINC) 83-108 mmHg pO2 High Arterial POCT 193 LAB 718-7(LOINC) 13.5-17.5 gm/dL Low Hemoglobin POCT 8.4 LAB 6-3(LOINC) 22.0-29.0 mMol/L Total Low CO2 Arterial 18.9 POCT LAB 96327-6(LOINC) 39-49 % Low Hematocrit POCT 26 LAB 2018-8(LOINC) 32-48 mmHg pCO2 Normal Arterial POCT 44 LAB 80027-3(LOINC) -2.0-3.0 mMol/L Base Low Excess POCT -7.6 LAB 24703-1(LOINC) FiO2 Normal POCT 100.0 LAB 2075-0(LOINC) 98-106 mEq/L Normal Chloride POCT 102 LAB 52947-1(LOINC) Normal Sample Type Arterial POCT LAB 2744-1(LOINC) 7.35-7.45 Blood Low Gas pH Arterial 7.25 POCT Result Comment: A result of UNABLE indicates the actual value could not be calculated. Treatment ranges and critical values established by Patient Care Services. All follow-up actions were taken by Patient Care Services. LAB 88082-4(LOINC) VOL% Normal O2 Content POCT 12.1 Performed By: #### [id number] #### POINT OF CARE BLOOD GAS POCT ABG Collected: 09/26/2018 Status: F Source: [facility] L[facility] 12:26 [facility] (UPLOAD) REPOSITORY TYPE CODE TESTS RESULT OUT OF RANGE REFERENCE UNITS LAB 49043-9(LO 10.0-20.0 mEq/L INC) Normal Anion Gap POCT [...] 136-146 mEq/L Sodium POCT Normal 140 LAB 52007-8(LOINC) 70-110 mg/dL Glucose POCT High 261 LAB 2703-7(LOINC) 83-108 mmHg pO2 Arterial POCT High 143 LAB 71014-3(LOINC) 0.5-1.6 mMol/L Lactate POCT High 3.2 LAB 17393-6(LOINC) Sample Type POCT Normal Arterial LAB 17748-2(LOINC) VOL% O2 Content POCT Normal 12.3 LAB 6-3(LOINC) 22.0-29.0 mMol/L Total CO2 Arterial Normal POCT 22.7 LAB 49350-5(LOINC) 1.12-1.32 mMol/L Calcium Ionized POCT Low 1.05 LAB 2708-6(LOINC) 95.0-99.0 % O2 Saturation High Arterial POCT 99.3 LAB 5-0(LOINC) 98-106 mEq/L Chloride POCT Normal 102 LAB 46587-8(LOINC) FiO2 POCT Normal 100.0 LAB 72566-5(LOINC) 94.0-99.0 % O2 Hemoglobin POCT Normal 97.6 LAB 2019-(LOINC) 32-48 mmHg pCO2 Arterial POCT Normal 42 LAB 718-7(LOINC) 13.5-17.5 gm/dL Hemoglobin POCT Low 8.7 LAB 92712-5(LOINC) 39-49 % Hematocrit POCT Low 27 LAB 76229-7(LOINC) 21.0-28.0 mMol/L HCO3 Arterial POCT Normal 23.8 LAB 42008-5(LOINC) % Carboxyhemoglobin Normal POCT 1.2 Result Comment: NON SMOKERS <1.5% SMOKERS 1.5 - 9.0% LAB 28128-9(LOINC) -2.0-3.0 mMol/L Normal Base Excess POCT -1.6 LAB 34823-0(LOINC) 3.5-5.0 mEq/L Normal Potassium POCT 4.9 Performed By: #### [id number] #### POINT OF CARE BLOOD GAS POCT Collected: 09/26/2018 Status: F Source: [facility] [facility]ROL[facility]TES ARTERIAL 11:41 AM [facility]) REPOSITORY TYPE CODE TESTS RESULT OUT OF REFERENCE UNITS RANGE LAB 85182-1(L OINC) FiO2 POCT Normal 100.0 LAB 05305-0(L OINC) Sample Type POCT Normal Arterial LAB 5-0(LO 98-106 mEq/L INC) Chloride POCT Normal 99 LAB 75480-2(L % OINC) Carboxyhemoglobin POCT Normal 0.8 Result Comment: NON SMOKERS <1.5% SMOKERS 1.5 - 9.0% LAB 2019-05(LOINC) 32-48 mmHg pCO2 Arterial Normal POCT 36 LAB 34552-3(LOINC) 3.5-5.0 mEq/L Potassium POCT High 6.1 LAB 91079-3(LOINC) 94.0-99.0 % O2 Hemoglobin Normal POCT 98.6 LAB 51585-7(LOINC) 1.12-1.32 mMol/L Calcium Ionized Normal POCT 1.18 LAB 2614-6(LOINC) 0.2-0.6 % Methemoglobin High POCT 0.8 LAB 56101-8(LOINC) 21.0-28.0 mMol/L HCO3 Arterial Normal POCT 24.6 LAB 16864-7(LOINC) VOL% O2 Content POCT Normal 13.0 LAB 2951-2(LOINC) 136-146 mEq/L Sodium POCT Normal 137 LAB 47197-9(LOINC) 70-110 mg/dL Glucose POCT High 320 LAB 718-7(LOINC) 13.5-17.5 gm/dL Low Hemoglobin POCT 8.6 LAB 66277-1(LOINC) 10.0-20.0 mEq/L Anion Gap POCT Normal 13.3 [...] mmHg High pO2 Arterial POCT 371 LAB 00748-4(LOINC) 39-49 % Low Hematocrit POCT 27 LAB 2708-6(LOINC) 95.0-99.0 % High O2 Saturation Arterial POCT 100.2 LAB 41753-2(LOINC) -2.0-3.0 mMol/L Base Normal Excess POCT 0.7 Performed By: #### CD:[id number] #### POINT OF CARE BLOOD GAS POCT Collected: 09/26/2018 Status: F Source: [place] ELECTROLYTES ARTERIAL 11:30 AM [facility] SYSTEM (UPLOADED) REPOSITORY TYPE CODE TESTS RESULT OUT OF REFERENCE UNITS RANGE LAB 2019-8(LO 32-48 mmHg INC) pCO2 Arterial POCT Normal 35 LAB 69575-1(L -2.0-3.0 mMol/L OINC) Low Base Excess POCT -2.2 LAB 19824-8(L % OINC) Carboxyhemoglobin POCT Normal 0.8 Result Comment: NON SMOKERS <1.5% SMOKERS 1.5 - 9.0% LAB 77975-5(LOINC) 10.0-20.0 mEq/L Normal Anion Gap POCT 13.5 LAB 2744-1(LOINC) 7.35-7.45 Normal Blood Gas pH Arterial POCT 7.41 Result Comment: A result of UNABLE indicates the actual value could not be calculated. Treatment ranges and critical values established by Patient Care Services. All follow-up actions were taken by Patient Care Services. LAB 22844-3(LOINC) VOL% O2 Content Normal POCT 13.3 LAB 39163-5(LOINC) 3.5-5 mEq/L .0 Potassium POCT High 6.7 LAB 14878-9(LOINC) 94.0- % 99.0 O2 Hemoglobin Normal POCT 98.6 LAB 47305-5(LOINC) Sample Type Normal POCT Arterial LAB 2708-6(LOINC) 95.0- % 99.0 O2 Saturation High Arterial POCT 100.2 LAB 2951-2(LOINC) 136-1 mEq/L Low 46 Sodium POCT 135 LAB 2614-6(LOINC) 0.2-0 % .6 Methemoglobin High POCT 0.8 LAB 718-7(LOINC) 13.5- gm/dL Low 17.5 Hemoglobin POCT 8.9 LAB 18402-8(LOINC) 21.0- mMol/L 28.0 HCO3 Arterial Normal POCT 22.1 LAB 87604-7(LOINC) 39-49 % Low Hematocrit POCT 27 LAB 2075-0(LOINC) 98-10 mEq/L 6 Chloride POCT Normal 99 LAB 2703-7(LOINC) 83-10 mmHg 8 pO2 Arterial High POCT 365 LAB 6-3(LOINC) 22.0- mMol/L Low 29.0 Total CO2 Arterial POCT 20.9 LAB 54878-2(LOINC) 70-11 mg/dL 0 Glucose POCT High 334 LAB 00610-3(LOINC) 1.12- mMol/L Low 1.32 Calcium Ionized POCT 1.00 LAB 39862-3(LOINC) FiO2 POCT Normal 100.0 Performed By: #### [id number] #### POINT OF CARE BLOOD GAS POCT ABG Collected: 09/26/2018 Status: F Source: [facility] LACT[facility] 11:15 AM [facility] SYSTEM (UPLOAD) REPOSITORY TYPE CODE TESTS RESULT OUT OF REFERENCE UNITS RANGE LAB 2703-7(LO 83-108 mmHg INC) pO2 Arterial POCT High 375 LAB 46071-0(L 10.0-20.0 mEq/L OINC) Anion Gap POCT Normal 11.8 LAB 99195-8(L VOL% OINC) O2 Content POCT Normal 13.3 LAB 2951-2(LO 136-146 mEq/L INC) Sodium POCT Normal 138 LAB 2614-6(LO 0.2-0.6 % INC) Methemoglobin POCT High 0.7 LAB 51989-0(L OINC) FiO2 POCT Normal 85.0 LAB 2019-8(LO 32-48 mmHg INC) pCO2 Arterial POCT Normal 35 LAB 35779-0(L % OINC) Carboxyhemoglobin POCT Normal 1.1 Result Comment: NON SMOKERS <1.5% SMOKERS 1.5 - 9.0% LAB 10112-5(LOINC) 70-110 mg/dL High Glucose POCT 304 LAB 2708-6(LOINC) 95.0-99.0 % O2 High Saturation 100.0 Arterial POCT LAB 6-3(LOINC) 22.0-29.0 mMol/L Total Normal CO2 Arterial 24.9 POCT LAB 71835-8(LOINC) Normal Sample Type Arterial POCT LAB 2075-0(LOINC) 98-106 mEq/L Normal Chloride POCT 100 LAB 2744-1(LOINC) 7.35-7.45 Blood High Gas pH Arterial 7.49 POCT Result Comment: A result of UNABLE indicates the actual value could not be calculated. Treatment ranges and critical values established by Patient Care Services. All follow-up actions were taken by Patient Care Services. LAB 59688-6(LOINC) 21.0-28.0 mMol/L HCO3 Normal Arterial POCT 26.6 LAB 83534-2(LOINC) -2.0-3.0 mMol/L Base High Excess POCT 3.2 LAB 52008-0(LOINC) 0.5-1.6 mMol/L High Lactate POCT 2.7 LAB 78790-1(LOINC) 94.0-99.0 % O2 Normal Hemoglobin POCT 98.5 LAB 08530-0(LOINC) 39-49 % Low Hematocrit POCT 27 LAB 93369-6(LOINC) 1.12-1.32 mMol/L Low Calcium Ionized POCT 1.02 LAB 14387-1(LOINC) 3.5-5.0 mEq/L High Potassium POCT 7.1 LAB 718-7(LOINC) 13.5-17.5 gm/dL Low Hemoglobin POCT 8.9 Performed By: #### [id number] #### POINT OF CARE BLOOD GAS POCT ABG Collected: 09/26/2018 Status: F Source: [facility] LACT[facility] 11:10 AM [facility] SYSTEM (UPLOAD) REPOSITORY TYPE CODE TESTS RESULT OUT OF RANGE REFERENCE UNITS LAB 2075-0(HANY 98-106 mEq/L NC) Chloride Normal POCT 100 LAB 51074-0(LO 70-110 mg/dL INC) High Glucose POCT 300 LAB 52348-4(LO 0.5-1.6 mMol/L INC) High Lactate POCT 2.8 LAB 2019-8(HANY 32-48 mmHg NC) Low pCO2 Arterial POCT 31 LAB 80657-5(LO 10.0-20.0 mEq/L INC) Anion Normal Gap POCT 12.3 LAB 91117-8(LO 3.5-5.0 mEq/L INC) High Potassium POCT 7.1 LAB 02675-2(LO -2.0-3.0 mMol/L INC) Low Base Excess POCT -3.8 LAB 72628-4(LO 39-49 % INC) Low Hematocrit POCT 28 LAB 38360-6(LO INC) FiO2 Normal POCT 100.0 LAB 2951-2(HANY 136-146 mEq/L NC) Low Sodium POCT 133 LAB 64741-6(LO VOL% INC) O2 Normal Content POCT 13.7 LAB 2744-1(HANY 7.35-7.45 NC) Blood Normal Gas pH Arterial 7.42 POCT Result Comment: A result of UNABLE indicates the actual value could not be calculated. Treatment ranges and critical values established by Patient Care Services. All follow-up actions were taken by Patient Care Services. LAB 15571-3(LOINC) 1.12-1.32 mMol/L Calcium Ionized POCT Normal 1.15 LAB 89111-4(LOINC) 94.0-99.0 % O2 Hemoglobin POCT Normal 98.8 LAB 2614-6(LOINC) 0.2-0.6 % Methemoglobin POCT High 0.7 LAB 2026-3(LOINC) 22.0-29.0 mMol/L Total CO2 Arterial Low POCT 19.0 LAB 2708-6(LOINC) 95.0-99.0 % O2 Saturation High Arterial POCT 100.2 LAB 718-7(LOINC) 13.5-17.5 gm/dL Hemoglobin POCT Low 9.1 LAB 02473-0(LOINC) 21.0-28.0 mMol/L HCO3 Arterial POCT Low 20.1 LAB 27202-6(LOINC) Sample Type POCT Normal Arterial LAB 26019-7(LOINC) % Carboxyhemoglobin Normal POCT 0.8 Result Comment: NON SMOKERS <1.5% SMOKERS 1.5 - 9.0% LAB 2703-7(LOINC) 83-108 mmHg High pO2 Arterial POCT 395 Performed By: #### [id number] #### POINT OF CARE BLOOD GAS POCT Collected: 09/26/2018 Status: F Source: [place] ELECTROLYTES ARTERIAL 10:46 AM [facility] (UPLOADED) REPOSITORY TYPE CODE TESTS RESULT OUT OF RANGE REFERENCE UNITS LAB 2703-7(HANY 83-108 mmHg NC) High pO2 Arterial POCT 470 LAB 2951-2(HANY 136-146 mEq/L NC) Low Sodium POCT 135 LAB 01077-2(LO 10.0-20.0 mEq/L INC) Anion Normal Gap POCT 11.4 LAB 43054-4(LO 39-49 % INC) Low Hematocrit POCT 27 LAB 92936-0(LO 94.0-99.0 % INC) High O2 Hemoglobin POCT 99.1 LAB 2744-1(HANY 7.35-7.45 NC) Blood Normal Gas pH Arterial 7.45 POCT Result Comment: A result of UNABLE indicates the actual value could not be calculated. Treatment ranges and critical values established by Patient Care Services. All follow-up actions were taken by Patient Care Services. LAB 2019-8(LOINC) 32-48 mmHg pCO2 Arterial POCT Low 31 LAB 92291-8(LOINC) FiO2 POCT Normal 100.0 LAB 16967-0(LOINC) VOL% O2 Content POCT Normal 13.5 LAB 2025-3(LOINC) 22.0-29.0 mMol/L Total CO2 Arterial Low POCT 20.4 LAB 2708-6(LOINC) 95.0-99.0 % O2 Saturation High Arterial POCT 100.4 LAB 2614-6(LOINC) 0.2-0.6 % Methemoglobin POCT Normal 0.5 LAB 2075-0(LOINC) 98-106 mEq/L Chloride POCT Normal 102 LAB 31905-9(LOINC) 70-110 mg/dL Glucose POCT High 264 LAB 98309-7(LOINC) Sample Type POCT Normal Arterial LAB 35002-4(LOINC) 21.0-28.0 mMol/L HCO3 Arterial POCT Normal 21.6 LAB 81409-4(LOINC) -2.0-3.0 mMol/L Base Excess POCT Normal -1.9 LAB 94148-6(LOINC) 3.5-5.0 mEq/L Potassium POCT High 6.7 LAB 78067-0(LOINC) 1.12-1.32 mMol/L Calcium Ionized POCT Low 0.90 LAB 718-7(LOINC) 13.5-17.5 gm/dL Hemoglobin POCT Low 8.7 LAB 01103-0(LOINC) % Carboxyhemoglobin Normal POCT 0.8 Result Comment: NON SMOKERS <1.5% SMOKERS 1.5 - 9.0% Performed By: #### CD:[id number] #### POINT OF CARE PREOP NURSING Observed: 09/26/2018 Status: F Source: [facility] 10:30 AM [facility] REPOSITORY [facility] PreOp Nursing Record Summary Primary Physician: Mariano Moreno MD Finalized Date/Time: 09/26/18 08:24:50 Pt. Name: LOVE PHELAN/Sex: 1945 Male Med Rec #: [id number] Physician: Jose F Nagel MD Financial #: [id number] Pt. Type: I Room/Bed: / Admit/Disch: 09/21/18 05:02:00 - Institution: [facility] PreOp Case Times Entry 1 PreOp Case Times In Room Time 09/26/18 05:37:00 Out Room Time 09/26/18 07:29:00 Last Modified By: Reyna Rodriguez RN 09/26/18 08:24:44 [facility] PreOp Case Attendees Entry 1 Case Attendee Anat Bueno RN Role Performed RN Last Modified By: Anat Bueno RN 09/26/18 05:38:13 Finalized By: Reyna Rodriguez RN Document Signatures Signed By: Reyna Rodriguez RN 09/26/18 08:24 BLOOD GAS POCT Collected: 09/26/2018 Status: F Source: [facility] [...] O2 Saturation High Arterial POCT 100.4 LAB 71710-2(LOINC) 3.5-5.0 mEq/L Potassium POCT High 6.3 LAB 41903-9(LOINC) 94.0-99.0 % O2 Hemoglobin POCT Normal 98.7 LAB 20854-6(LOINC) 1.12-1.32 mMol/L Calcium Ionized POCT Low 0.93 LAB 60911-1(LOINC) 21.0-28.0 mMol/L HCO3 Arterial POCT Normal 22.6 LAB 86020-1(LOINC) -2.0-3.0 mMol/L Base Excess POCT Normal -1.5 LAB 28963-4(LOINC) FiO2 POCT Normal 100.0 LAB 54565-4(LOINC) 70-110 mg/dL Glucose POCT High 258 LAB 2951-2(LOINC) 136-146 mEq/L Sodium POCT Normal 136 LAB 2703-7(LOINC) 83-108 mmHg pO2 Arterial POCT High 520 LAB 83195-9(LOINC) VOL% O2 Content POCT Normal 13.2 LAB 718-7(LOINC) 13.5-17.5 gm/dL Hemoglobin POCT Low 8.5 LAB 2614-6(LOINC) 0.2-0.6 % Methemoglobin POCT High 0.8 LAB 2019-8(LOINC) 32-48 mmHg pCO2 Arterial POCT Normal 35 LAB 92635-0(LOINC) 39-49 % Hematocrit POCT Low 26 LAB 25305-0(LOINC) 10.0-20.0 mEq/L Anion Gap POCT Normal 11.1 LAB 2025-3(LOINC) 22.0-29.0 mMol/L Total CO2 Arterial Low POCT 21.5 LAB 60810-4(INC) Sample Type POCT Normal Arterial LAB 5-0(LOINC) 98-106 mEq/L Chloride POCT Normal 102 LAB 35644-9(INC) % Carboxyhemoglobin Normal POCT 0.9 Result Comment: NON SMOKERS <1.5% SMOKERS 1.5 - 9.0% Performed By: #### CD:[id number] #### POINT OF CARE BLOOD GAS POCT ABG Collected: 09/26/2018 Status: F Source: [facility] LACTATE 10:02 [facility] (UPLOAD) REPOSITORY TYPE CODE TESTS RESULT OUT OF REFERENCE UNITS RANGE LAB 05653-1(L 10.0-20.0 mEq/L OINC) Anion Gap POCT Normal 11.2 LAB 44393-0(L 21.0-28.0 mMol/L OINC) Low HCO3 Arterial POCT 20.6 LAB 06052-6(L -2.0-3.0 mMol/L OINC) Low Base Excess POCT -4.4 LAB 31348-2(L % OINC) Carboxyhemoglobin POCT Normal 0.9 Result Comment: NON SMOKERS <1.5% SMOKERS 1.5 - 9.0% LAB 68701-2(LOINC) 70-110 mg/dL Glucose High POCT 236 LAB 2703-7(LOINC) 83-108 mmHg pO2 High Arterial POCT 490 LAB 44804-4(LOINC) 0.5-1.6 mMol/L Lactate Normal POCT 1.1 LAB 718-7(LOINC) 13.5-17.5 gm/dL Low Hemoglobin POCT 8.8 LAB 2074-0(LOINC) 98-106 mEq/L Chloride Normal POCT 104 LAB 2018-8(LOINC) 32-48 mmHg pCO2 Normal Arterial POCT 37 LAB 43921-8(LOINC) FiO2 Normal POCT 100.0 LAB 39073-6(LOINC) 39-49 % Low Hematocrit POCT 27 LAB 2025-3(LOINC) 22.0-29.0 mMol/L Low Total CO2 Arterial POCT 19.7 LAB 73406-7(LOINC) 3.5-5.0 mEq/L High Potassium POCT 5.2 LAB 2744-1(LOINC) 7.35-7.45 Blood Normal Gas pH Arterial POCT 7.36 Result Comment: A result of UNABLE indicates the actual value could not be calculated. Treatment ranges and critical values established by Patient Care Services. All follow-up actions were taken by Patient Care Services. LAB 25666-9(LOINC) VOL% O2 Content Normal POCT 13.6 LAB 2614-6(LOINC) 0.2-0 % .6 Methemoglobin High POCT 1.0 LAB 65824-5(LOINC) Sample Type Normal POCT Arterial LAB 2951-2(LOINC) 136-1 mEq/L 46 Sodium POCT Normal 136 LAB 03201-5(LOINC) 1.12- mMol/L Low 1.32 Calcium Ionized POCT 0.98 LAB 2708-6(LOINC) 95.0- % 99.0 O2 Saturation High Arterial POCT 100.3 LAB 56564-0(LOINC) 94.0- % 99.0 O2 Hemoglobin Normal POCT 98.3 Performed By: #### 24643-6i8 #### POINT OF CARE BLOOD GAS POCT ABG Collected: 09/26/2018 Status: F Source: [facility] LACTATE 9:21 AM [facility] SYSTEM (UPLOAD) REPOSITORY TYPE CODE TESTS RESULT OUT OF REFERENCE UNITS RANGE LAB 2019-8(LO 32-48 mmHg INC) pCO2 Arterial POCT Normal 41 LAB 2703-7(LO 83-108 mmHg INC) pO2 Arterial POCT High 211 LAB 96347-6(L 21.0-28.0 mMol/L OINC) HCO3 Arterial POCT Normal 22.1 LAB 99451-7(L 3.5-5.0 mEq/L OINC) Potassium POCT Normal 4.9 LAB 69160-4(L 94.0-99.0 % OINC) O2 Hemoglobin POCT Normal 97.7 LAB 54477-4(L 39-49 % OINC) Hematocrit POCT Low 27 LAB 2026-3(LO 22.0-29.0 mMol/L INC) Total CO2 Arterial Low POCT 21.1 LAB 2708-6(LO 95.0-99.0 % INC) O2 Saturation Arterial High POCT 99.7 LAB 73351-1(L 70-110 mg/dL OINC) Glucose POCT High 210 LAB 50648-9(L OINC) Sample Type POCT Normal Arterial LAB 2075-0(LO 98-106 mEq/L INC) Chloride POCT Normal 105 LAB 53729-4(L % OINC) Carboxyhemoglobin POCT Normal 1.0 Result Comment: NON SMOKERS <1.5% SMOKERS 1.5 - 9.0% LAB 2744-1(LOINC) 7.35-7.45 Blood Low Gas pH Arterial POCT 7.34 Result Comment: A result of UNABLE indicates the actual value could not be calculated. Treatment ranges and critical values established by Patient Care Services. All follow-up actions were taken by Patient Care Services. LAB 05190-1(LOINC) VOL% O2 Content POCT Normal 12.8 LAB 94035-8(LOINC) 1.12-1 mMol/L Low .32 Calcium Ionized POCT 1.04 LAB 2951-2(LOINC) 136-14 mEq/L 6 Sodium POCT Normal 138 LAB 82035-5(LOINC) 0.5-1. mMol/L 6 Lactate POCT Normal 0.6 LAB 40188-8(LOINC) -2.0-3 mMol/L Low .0 Base Excess POCT -3.4 LAB 77190-7(LOINC) FiO2 POCT Normal 100.0 LAB 2614-6(LOINC) 0.2-0. % High 6 Methemoglobin POCT 0.9 LAB 718-7(LOINC) 13.5-1 gm/dL Low 7.5 Hemoglobin POCT 8.9 LAB 36590-7(LOINC) 10.0-2 mEq/L 0.0 Anion Gap POCT Normal 11.1 Performed By: #### 62532-4z6 #### POINT OF CARE BLOOD GAS POCT ABG Collected: 09/26/2018 Status: F Source: [facility] LACTATE 7:49 AM [facility] SYSTEM (UPLOAD) REPOSITORY TYPE CODE TESTS RESULT OUT OF RANGE REFERENCE UNITS LAB 2019-8(HANY 32-48 mmHg NC) pCO2 Normal Arterial POCT 41 LAB 718-7(LOIN 13.5-17.5 gm/dL C) Low Hemoglobin POCT 10.5 LAB 00482-6(LO VOL% INC) O2 Normal Content POCT 14.0 LAB 21763-0(LO 0.5-1.6 mMol/L INC) Lactate Normal POCT 0.7 LAB 2744-1(HANY 7.35-7.45 NC) Blood Normal Gas pH Arterial 7.36 POCT Result Comment: A result of UNABLE indicates the actual value could not be calculated. Treatment ranges and critical values established by Patient Care Services. All follow-up actions were taken by Patient Care Services. LAB 2075-0(LOINC) 98-106 mEq/L Chloride POCT Normal 106 LAB 23023-5(LOINC) 39-49 % Hematocrit POCT Low 32 LAB 40400-4(LOINC) FiO2 POCT Normal 21.0 LAB 2708-6(LOINC) 95.0-99.0 % O2 Saturation Low Arterial POCT 94.9 LAB 93935-6(LOINC) 3.5-5.0 mEq/L Potassium POCT Normal 4.4 LAB 2614-6(LOINC) 0.2-0.6 % Methemoglobin POCT Normal 0.4 LAB 61349-8(LOINC) Sample Type POCT Normal Arterial LAB 2951-2(LOINC) 136-146 mEq/L Sodium POCT Normal 139 LAB 64012-9(LOINC) 21.0-28.0 mMol/L HCO3 Arterial POCT Normal 22.9 LAB 77144-3(LOINC) 94.0-99.0 % O2 Hemoglobin POCT Low 93.6 LAB 26562-4(LOINC) 1.12-1.32 mMol/L Calcium Ionized POCT Normal 1.14 LAB 77120-9(LOINC) -2.0-3.0 mMol/L Base Excess POCT Low -2.5 LAB 2703-7(LOINC) 83-108 mmHg pO2 Arterial POCT Low 75 LAB 58301-9(LOINC) % Carboxyhemoglobin Normal POCT 0.9 Result Comment: NON SMOKERS <1.5% SMOKERS 1.5 - 9.0% LAB 53403-4(LOINC) 70-110 mg/dL High Glucose POCT 207 LAB 21175-1(LOINC) 10.0-20.0 mEq/L Normal Anion Gap POCT 10.5 LAB 2026-3(LOINC) 22.0-29.0 mMol/L Low Total CO2 Arterial POCT 21.5 Performed By: #### 67285-7u8 #### POINT OF CARE ANESTHESIA PREOPERATIVE Observed: 09/26/2018 Status: F Source: [facility] ASSESSMENT 7:15 AM [facility]ALTH SYSTEM REPOSITORY Patient: LOVE PHELAN MRN: [id number] Age: 73 years Sex: Male : 1945 [...] Intubation. Monitoring/Anesthesia Considerations: Arterial Line, Central Line, [place] Catheter, Transesophageal echocardiography, One lung ventilation, Post-operative [...] RESULT OUT OF REFERENCE UNITS RANGE LAB 25060-9(LO 0.0-7.0 % INC) Normal Eosinophil 3.3 LAB 718-7(LOIN 13.5-17.5 gm/dL C) Low Hemoglobin 10.7 LAB 95948-9(LO 11.0-14.8 % INC) RDW Normal 14.1 LAB 63802-0(LO 0.0-12.0 % INC) Normal Monocyte 10.4 LAB 742-7(LOIN 0.00-0.90 thou/mcL C) Normal Monocyte 0.70 Absolute LAB 54877-5(LO 4.30-5.70 million/mcL INC) Low Red Blood Cell 3.81 Count LAB 52215-6(LO 22.0-44.0 % INC) Low Lymphocyte 18.1 LAB 731-0(LOIN 1.00-4.80 thou/mcL C) Normal Lymphocyte 1.20 Absolute LAB 58053-2(LO 32.0-36.0 gm/dL INC) MCHC Normal 33.6 LAB 43549-2(LO 4.6-10.2 thou/mcL INC) WBC Normal Count 6.8 LAB 10201-2(LO 40.0-70.0 % INC) Normal Neutrophil 67.5 LAB 57527-3(LO 27.0-34.0 Picograms INC) MCH Normal 28.0 LAB 751-8(LOIN 1.80-7.70 thou/mcL C) Normal Neutrophil 4.60 Absolute LAB 704-7(LOIN 0.00-0.20 thou/mcL C) Normal Basophil 0.10 Absolute LAB 76393-4(LO 80.0-97.0 FL INC) MCV Normal 83.4 LAB 68451-0(LO 6.2-12.1 FL INC) MPV Normal 9.1 LAB 51853-9(LO 0.0-2.0 % INC) Normal Basophil 0.7 LAB 711-2(LOIN 0.00-0.70 thou/mcL C) Normal Eosinophil 0.20 Absolute LAB 83621-7(LO 39.0-49.0 % INC) Low Hematocrit 31.7 LAB 79700-8(LO 142-424 thou/mcL INC) Normal Platelet Count 157 Performed By: #### 24843-7 #### [facility] [address] [place], [place] PROTHROMBIN TIME Collected: 09/26/2018 Status: F Source: [place] 3:52 AM [facility] SYSTEM REPOSITORY TYPE CODE TESTS RESULT OUT OF RANGE REFERENCE UNITS LAB 04707-5(HANY NC) Normal INR 1.29 Result Comment: The recommended therapeutic INR range for most cardiac indications is 2.0-3.0. For high intensity therapy(ie.mechanical heart valves), the recommended range is 2.5-3.5. LAB 5902-2(LOINC) 9.3-12.4 Sec Prothrombin High Time (PT) 14.9 Performed By: #### 5902-2, 3173-2 #### [facility] [address] [place], [place] PARTIAL THROMBOPLASTIN Collected: 09/26/2018 Status: F [facility] REPOS[facility] TYPE CODE TESTS RESULT OUT OF REFERENCE UNITS RANGE LAB 64832-9(LO 23.6-35.3 Sec INC) Partial Normal Thromboplastin 31.9 (aPTT) Performed By: #### 5902-2, 3173-2 #### [facility] [address] [place] [address] MAGNESIUM LEVEL Collected: 09/26/2018 Status: F Source: [facility] 3:52 AM [facility]ALTH SYSTEM REPOSITORY TYPE CODE TESTS RESULT OUT OF RANGE REFERENCE UNITS LAB 66099-8(LO 1.8-2.5 mg/dL INC) Normal Magnesium Level 2.1 Performed By: #### 34017-8, 68774-4 #### [facility] [address] [place], [place] COMPREHENSIVE METABOLIC Collected: 09/26/2018 Status: F Source: [facility] SYD PANEL 3:52 AM HEALTH SYSTEM REPOSITORY TYPE CODE TESTS RESULT OUT OF RANGE REFERENCE UNITS LAB 60468-2(LO 8-20 mg/dL INC) High BUN 54 LAB 1920-8(HANY 15-41 Units/L NC) AST/SGOT Normal 29 LAB 50168-0(LO 6.0-18.0 mMol/L INC) Anion Gap Normal 8.0 LAB 2028-9(HANY 22-32 mMol/L NC) Carbon Normal Dioxide Level 25 LAB 6768-6(HANY 32-91 Units/L NC) Alkaline Normal Phosphatase 69 LAB 2951-2(HANY 136-145 mMol/L NC) Sodium Normal Level 138 LAB 2075-0(HANY 98-107 mMol/L NC) Chloride Normal Level 105 LAB 1742-6(HANY 14-63 Units/L NC) ALT/SGPT Normal 35 LAB 1751-7(HANY 3.5-4.8 gm/dL NC) Low Albumin Level 3.3 LAB 66712-2(LO 8.9-10.3 mg/dL INC) Low Calcium Total 8.5 LAB 21741-7(LO 70-110 mg/dL INC) Glucose Normal Level 75 LAB 2885-2(HANY 6.1-7.9 gm/dL NC) Protein Normal 6.8 LAB 2160-0(HANY 0.60-1.30 mg/dL NC) High Creatinine 1.46 LAB 1975-2(HANY 0.3-1.2 mg/dL NC) Bilirubin Normal Total 0.6 LAB 2823-3(HANY 3.6-5.1 mMol/L NC) Potassium Normal Level 3.7 Performed By: #### 80861-4, 73020-1 #### [facility] [address] [place], [place] GLUCOSE POCT Collected: 09/26/2018 Status: F [...] OPERATIVE/PROCEDURE REPORT Observed: 09/26/2018 Status: F Source: [facility] 12:00 AM [facility] REPOSITORY DICTATED BY: MARIANO MORENO MD [...] D/09/26/2018 13:58:52 T/09/26/2018 19:00:01 VOICE JOB ID: [id number] Jed Velarde thanks you for the opportunity to care for your patient. DID: [id number] GLUCOSE POCT Collected: 09/25/2018 Status: F Source: [...] REPOSITORY BPOS Performed By: #### 882-1 #### [facility] [address] [place], [place] Observed: 09/25/2018 Status: F Source: [facility] ANTIBODY SCREEN 5:29 PM HEALTH SYSTEM INTERPRETATION REPOSITORY NEGATIVE Performed By: #### 29518-3 #### [facility] [address] [place], [place] GLUCOSE POCT Collected: 09/25/2018 Status: F [...] HEALTH SYSTEM REPOSITORY Patient: LOVE PHELAN MRN: [id number] Age: 73 years Sex: Male : 1945 Associated Diagnoses: None Author: Akira Oconnor Supervising Physician Comments Documentation By: Nurse Practitioner. Comments HPI: Mr. Aleman is a 73 year old male with past medical history significant for chronic ischemic heart disease s/p multivessel stenting in 2009, HTN, HLD, T2DM, CKD, and obesity who presented to [facility] on 09/21/18 with c/o shortness of breath. He was in [place] visiting family for the holidays when he [...] valve repair/replacement. Of note, pt lives in [place] and follows with his Pressurization Mechanic there regularly. He had a routine office [...] (FRESH FROZEN Collected: 09/25/2018 Status: F Source: [facility] PLASMA) ORDER 3:39 PM HEALTH SYSTEM REPOSITORY Order Comment: Please hold 2 units of FFP for OR on 09/26 TYPE CODE TESTS RESULT OUT OF RANGE REFERENCE UNITS LAB 1035-5(LOIN C) Normal Fresh NOTNEED Frozen Plasma: PLATELET PRODUCT Collected: 09/25/2018 Status: F Source: [facility] 3:39 PM HEALTH SYSTEM REPOSITORY Order Comment: Please hold 1 unit of platelets for OR on 09/26 TYPE CODE TESTS RESULT OUT OF REFERENCE UNITS RANGE LAB 82798-3(LO INC) Platelet Normal Concentrate NOTNEED GLUCOSE POCT [...] HEALTH SYSTEM REPOSITORY Patient: LOVE PHELAN MRN: [id number] Age: 73 years Sex: Male : 1945 [...] back to lisinopril/HCTZ soon. Mehdi Nayak MD [facility] Subjective Feeling OK today. No sob, [...] PROGRESS NOTES Observed: 09/25/2018 Status: F Source: [facility] 10:10 AM [facility] SYSTEM REPOSITORY Patient: LOVE PHELAN MRN: [id number] Age: 73 years Sex: Male : 1945 Associated Diagnoses: None Author: Cristhian Hong DO Assessment Diagnosis/Impression/Plan: Mr Love Phelan is a 73-year-old male with past medical history to include CAD status post stents, hypertension, hyperlipidemia, insulin-dependent diabetes, newly diagnosed CKD stage III, who prese nts to [facility] 09/21/2018 for dyspnea Interval workup notable for [...] regurgitation precipitating respiratory failure, with planned disposition [facility] vs SNF Pending clinical trajectory and when [...] PO, w/bkfst+din cyanocobalamin: 100 mcg, IM, Month ([id number]) isosorbide mononitrate: 30 mg, PO, Daily oxygen: [...] mcg/ml injectable solution: 1 mL, IM, Month (I88Noeo), Each, 0 Refill(s) glipiZIDE 10 mg oral [...] HEALTH SYSTEM REPOSITORY Patient: LOVE PHELAN MRN: [facility])-[id number] Age: 73 years Sex: Male : 1945 Associated Diagnoses: None Author: [facility] Cardiology Progress Note Subjective: Patient feeling fine. [...] Moderate left atrial enlargement Small PFO with jehn-uz-gxufe shunt. No right to left shunting demonstrated [...] posterior flail -Severe MR -Small PFO with nojs-ts-onaeu shunt -Elevated troponin; 0.07. In setting of acute CHF, renal insufficiency of unknown chronicity, and underlying CAD. -Chronic ischemic heart disease; s/p KS and multivessel stenting 2009. He had negative [...] mcg = 0.1 mL, IM, Inject, Month (F00Pahe),, x 30 Day(s), 09/21/18 5:49:00 EST Last [...] RESULT OUT OF REFERENCE UNITS RANGE LAB 80013-2(LO 80.0-97.0 FL INC) MCV Normal 83.2 LAB 73719-8(LO 6.2-12.1 FL INC) MPV Normal 9.1 LAB 40973-9(LO 39.0-49.0 % INC) Low Hematocrit 31.3 LAB 711-2(LOIN 0.00-0.70 thou/mcL C) Normal Eosinophil 0.20 Absolute LAB 72275-8(LO 142-424 thou/mcL INC) Normal Platelet Count 147 LAB 17094-6(LO 0.0-12.0 % INC) Normal Monocyte 10.4 LAB 35888-8(LO 11.0-14.8 % INC) RDW Normal 14.3 LAB 718-7(LOIN 13.5-17.5 gm/dL C) Low Hemoglobin 10.6 LAB 76564-7(LO 40.0-70.0 % INC) Normal Neutrophil 64.5 LAB 57684-6(LO 0.0-2.0 % INC) Normal Basophil 0.9 LAB 731-0(LOIN 1.00-4.80 thou/mcL C) Normal Lymphocyte 1.20 Absolute LAB 99052-2(LO 32.0-36.0 gm/dL INC) MCHC Normal 33.9 LAB 41303-7(LO 4.30-5.70 million/mcL INC) Low Red Blood Cell 3.76 Count LAB 742-7(LOIN 0.00-0.90 thou/mcL C) Normal Monocyte 0.60 Absolute LAB 751-8(LOIN 1.80-7.70 thou/mcL C) Normal Neutrophil 3.90 Absolute LAB 00356-1(LO 27.0-34.0 Picograms INC) MCH Normal 28.2 LAB 75833-1(LO 4.6-10.2 thou/mcL INC) WBC Normal Count 6.0 LAB 704-7(LOIN 0.00-0.20 thou/mcL C) Normal Basophil 0.10 Absolute LAB 35738-1(LO 22.0-44.0 % INC) Low Lymphocyte 20.7 LAB 75214-9(LO 0.0-7.0 % INC) Normal Eosinophil 3.5 Performed By: #### 13273-7 #### [facility] [address] [place], [place] GFRAA Collected: 09/25/2018 Status: F Source: [facility] 5:36 AM [facility] SYSTEM REPOSITORY TYPE CODE TESTS RESULT OUT OF RANGE REFERENCE UNITS LAB 28634-2(LO mL/min INC) GFR Normal Estimated 45 Result Comment: The MDRD equation has not been validated for those over 70 years, women, patients with serious co-morbid conditions, or with extremes of body size, muscle mass of nutritional status. Performed By: #### 75921-9, 79575-4h4, 31802-9, 56081-2 #### [facility] [address] [place], [place] GFRBB Collected: 09/25/2018 Status: F Source: [facility] 5:36 AM HEALTH SYSTEM REPOSITORY TYPE CODE TESTS RESULT OUT OF RANGE REFERENCE UNITS LAB 38862-4(LO mL/min INC) GFR Normal Estimated Non 38 Performed By: #### 32764-7, 48880-2z3, 54356-4, 59322-9 #### [facility] [address] [place], [place] MAGNESIUM LEVEL Collected: 09/25/2018 Status: F Source: [facility] SYD 5:36 AM HEALTH SYSTEM REPOSITORY TYPE CODE TESTS RESULT OUT OF RANGE REFERENCE UNITS LAB 94525-6(LO 1.8-2.5 mg/dL INC) Normal Magnesium Level 1.9 Performed By: #### 27236-4, 71591-0f0, 43475-1, 28468-1 #### [facility] [address] [place], [place] BASIC METABOLIC PANEL Collected: 09/25/2018 Status: F Source: [facility] SYD 5:36 AM HEALTH SYSTEM REPOSITORY TYPE CODE TESTS RESULT OUT OF RANGE REFERENCE UNITS LAB 2160-0(HANY 0.60-1.30 mg/dL NC) High Creatinine 1.79 LAB 2823-3(HANY 3.6-5.1 mMol/L NC) Normal Potassium Level 3.8 LAB 62098-9(LO 70-110 mg/dL INC) High Glucose Level 116 LAB 91654-0(LO 6.0-18.0 mMol/L INC) Anion Normal Gap 8.0 LAB 69839-7(LO 8.9-10.3 mg/dL INC) Low Calcium Total 8.5 LAB 97819-4(LO 8-20 mg/dL INC) High BUN 60 LAB 2951-2(HANY 136-145 mMol/L NC) Sodium Normal Level 137 LAB 2028-9(HANY 22-32 mMol/L NC) Carbon Normal Dioxide Level 25 LAB 2075-0(HANY 98-107 mMol/L NC) Chloride Normal Level 104 Performed By: #### 02243-1, 95692-2j0, 00179-7, 08978-2 #### [facility] [address] [place], [place] GLUCOSE POCT Collected: 09/25/2018 Status: F [...] HEALTH SYSTEM REPOSITORY Patient: LOVE PHELAN MRN: [id number] Age: 73 years Sex: Male : 1945 [...] back to lisinopril/HCTZ soon. Mehdi Nayak MD [facility] Subjective Feeling OK today. Had CT [...] GLUCOSE POCT Collected: 09/24/2018 Status: F Source: [facility] (UPLOADED) 1:10 PM HEALTH SYSTEM REPOSITORY TYPE [...] PELVIS W Observed: 09/24/2018 Status: F Source: [facility] AND/OR W/O CONTRAST 12:35 PM HEALTH SYSTEM [...] hilar lymph node. Hepatic steatosis and hepatomegaly. Faith thanks you for the opportunity to care for your patient. Workstation ID: [id number] FINAL REPORT Dictated By: Dilan Saldana MD 09/24/2018 13:31 Assigned Physician: Dilan Saldana MD Reviewed and Electronically Signed By: Dilan Saldana MD 09/24/2018 14:03 Transcribed by: CATERINA 09/24/2018 13:48 Technologist: MAURICIO SAENZ PROGRESS NOTES Observed: 09/24/2018 Status: F Source: [facility] 11:42 AM [facility]ALTH SYSTEM REPOSITORY Patient: LOVE PHELAN MRN: ([id number] Age: 73 years Sex: Male : 1945 Associated Diagnoses: None Author: Cristhian Hong DO Assessment Diagnosis/Impression/Plan: Mr Love Phelan is a 73-year-old male with past medical history to include CAD status post stents, hypertension, hyperlipidemia, insulin-dependent diabetes, newly diagnosed CKD stage III, who prese nts to [facility] 09/21/2018 for dyspnea Interval workup notable for [...] PO, w/bkfst+din cyanocobalamin: 100 mcg, IM, Month ([id number]) isosorbide mononitrate: 30 mg, PO, Daily oxygen: [...] mcg/ml injectable solution: 1 mL, IM, Month (T70Coxc), Each, 0 Refill(s) glipiZIDE 10 mg oral [...] ALEMAN Date of 1945 E Patient Number [id number] Age 73 year(s) Visit Number [id number] Gender Male Room Number 2E41 Admission Status Inpatient Referring Christi Tang MD [employer] Maco Hardin Physician RDCS Interpreting Christi Tang [...] CLAIRE Performed By: the attending and the questioned documents examiner Type of Anesthesia: Moderate sedation Procedure Medications [...] or spontaneous echo contrast Small PFO with zvsh-vt-mcbnd shunt on color Doppler. No right to [...] the aorta Interatrial Septal Small PFO with lxrp-ox-wezbm shunt on color Doppler. No right to [...] PROGRESS NOTES Observed: 09/24/2018 Status: C Source: [facility] 9:42 AM [facility]ALTH SYSTEM REPOSITORY Patient: LOVE PHELAN MRN: [id number] Age: 73 years Sex: Male : 1945 Associated Diagnoses: None Author: Sarah Bryan CNP Supervising Physician Comments Documentation By: Nurse Practitioner. Comments HPI: Mr. Aleman is a 73 year old male with past medical history significant for chronic ischemic heart disease s/p multivessel stenting in 2009, HTN, HLD, T2DM, CKD, and obesity who presented to [facility] on 09/21/18 with c/o shortness of breath. He was in [place] visiting [facility] for the holidays when he noted right [...] right collaterals which is known since 2009. [facility] was asked to evaluate pt for mitral valve repair/replacement. Of note, pt lives in [place] and follows with his Pressurization Mechanic there regularly. He had a routine office [...] GLUCOSE POCT Collected: 09/24/2018 Status: F Source: [facility] (UPLOADED) 8:07 AM HEALTH SYSTEM REPOSITORY TYPE CODE TESTS RESULT OUT OF REFERENCE UNITS RANGE LAB 2340-8(LOIN 70-110 mg/dL C) High Glucose 300 POCT-LAB Result Comment: Treatment ranges and critical values established by Patient Care Services. All follow-up actions were taken by Patient Care Services. Performed By: #### 2430-8 #### [facility] POINT OF CARE CBC Collected: 09/24/2018 Status: F Source: [facility] 7:28 AM HEALTH SYSTEM REPOSITORY TYPE CODE TESTS RESULT OUT OF REFERENCE UNITS RANGE LAB 63287-4(LO 6.2-12.1 FL INC) MPV Normal 9.3 LAB 61597-1(LO 32.0-36.0 gm/dL INC) MCHC Normal 33.5 LAB 55275-5(LO 39.0-49.0 % INC) Low Hematocrit 34.8 LAB 83798-9(LO 142-424 thou/mcL INC) Normal Platelet Count 146 LAB 90743-9(LO 27.0-34.0 Picograms INC) MCH Normal 27.9 LAB 24908-2(LO 11.0-14.8 % INC) RDW Normal 14.2 LAB 13904-0(LO 80.0-97.0 FL INC) MCV Normal 83.5 LAB 718-7(LOIN 13.5-17.5 gm/dL C) Low Hemoglobin 11.6 LAB 20315-3(LO 4.6-10.2 thou/mcL INC) WBC Normal Count 5.6 LAB 14687-6(LO 4.30-5.70 million/mcL INC) Low Red Blood Cell 4.16 Count Performed By: #### 94471-4 #### [facility] [address] [place], [place] #### 1988-12 #### [facility] [address] [place], [place] VITAMIN D 25 HYDROXY Collected: 09/24/2018 Status: F Source: [facility] 7:28 AM HEALTH SYSTEM REPOSITORY TYPE CODE TESTS RESULT OUT OF REFERENCE UNITS RANGE LAB 1988-3(LOIN 30.00-100.00 ng/mL C) Low Vitamin D 26.01 25-Hydroxy Level Result Comment: NEW METHOD AND INTERPRETIVE DATA Vitamin D Status Range ------ Deficiency <20 ng/mL(50 nmol/L) Insufficiency 20-30 ng/mL(50-75 nmol/L) Sufficiency 30-100 ng/mL(75-250 nmol/L) Toxicity >100 ng/mL (250 nmol/L) Performed By: #### 09769-5 #### [facility] [address] [place], [place] #### 1988-12 #### [facility] [address] [place], [place] RENAL FUNCTION PANEL Collected: 09/24/2018 Status: F Source: [facility] 7:28 AM HEALTH SYSTEM REPOSITORY TYPE CODE TESTS RESULT OUT OF RANGE REFERENCE UNITS LAB 2160-0(HANY 0.60-1.30 mg/dL NC) High Creatinine 1.53 LAB 1751-7(HANY 3.5-4.8 gm/dL NC) Albumin Normal Level 3.8 LAB 2951-2(HANY 136-145 mMol/L NC) Sodium Normal Level 136 LAB 2075-0(HANY 98-107 mMol/L NC) Chloride Normal Level 101 LAB 54187-1(LO 2.4-4.7 mg/dL INC) Normal Phosphorus Level 4.2 LAB 51838-2(LO 70-110 mg/dL INC) High Glucose Level 313 LAB 2823-3(HANY 3.6-5.1 mMol/L NC) Normal Potassium Level 4.3 LAB 44096-2(LO 8-20 mg/dL INC) High BUN 63 LAB 18269-3(LO 8.9-10.3 mg/dL INC) Calcium Normal Total 8.9 LAB 30753-9(LO 6.0-18.0 mMol/L INC) Anion Normal Gap 12.0 LAB 8-9(HANY 22-32 mMol/L NC) Carbon Normal Dioxide Level 23 Performed By: #### 75970-4, 2283-8, #### [facility] [address] [place], [place] FOLIC ACID LEVEL Collected: 09/24/2018 Status: F Source: [facility] 7:28 AM HEALTH SYSTEM REPOSITORY TYPE CODE [...] greater than 4 ng/ml Performed By: #### 83056-2, 2283-8, #### [facility] [address] [place], [place] VITAMIN B12 LEVEL Collected: 09/24/2018 Status: F Source: [facility] 7:28 AM HEALTH SYSTEM REPOSITORY TYPE CODE TESTS RESULT OUT OF REFERENCE UNITS RANGE LAB 2131-9(LOIN 180-914 Picogram/ml C) High Vitamin B12 1399 Level Performed By: #### 56593-1, 2284-8, 2132- 9 #### [facility] [address] [place], [place] PARATHYROID HORMONE Collected: 09/24/2018 Status: F Source: [facility] [place] (PTH) INTACT 7:28 AM [facility]ALTH SYSTEM REPOSITORY TYPE CODE TESTS RESULT OUT OF RANGE REFERENCE UNITS LAB 2731-8(LOIN 12-88 Picogram/ml C) Normal PTH Intact 54 Performed By: #### 2731-8 #### [facility] [address] [place], [place] XR CHEST 1 VIEW Observed: 09/24/2018 [...] RESULT OUT OF RANGE REFERENCE UNITS LAB 06846-0(LO INC) Protein Normal / Creatinine 0.9 Ratio Urine Result Comment: Reference Intervals: Normal Proteinuria = <0.1 Mild Proteinuria = 0.1 - 1.0 Moderate Proteinuria = 1.0 - 10.0 Heavy Proteinuria = >10.0 LAB 2161-8(LOINC) mg/dL Normal Creatinine Urine 121.62 LAB 2888-6(LOINC) <11.9 mg/dL High Protein Random Urine 111.2 Performed By: #### 50419-4 #### [facility] [address] [place], [place] GLUCOSE POCT Collected: 09/23/2018 Status: F [...] HEALTH SYSTEM REPOSITORY Patient: LOVE PHELAN MRN: [id number] Age: 73 years Sex: Male : 1945 [...] Echo ordered, cardiology consult and went to [facility] showing patent stents to LCx and LCA [...] elevated 0.07, EKG without ischemic changes, underwent [facility] showing elevated levels LVEDP and HF. 5. [...] PO, w/bkfst+din cyanocobalamin: 100 mcg, IM, Month ([id number]) oxygen: 1 Each, Inhalation, Daily oxygen: 1 [...] mcg/ml injectable solution: 1 mL, IM, Month ([id number]), Each, 0 Refill(s) glipiZIDE 10 mg oral [...] by Patient Care Services. Performed By: #### 8604-8 #### [facility] POINT OF CARE [facility] RETR[facility]ITONE[facility]TD Observed: 09/23/2018 Status: F Source: [facility] 12:19 PM HEALTH SYSTEM REPOSITORY EXAMINATION TYPE: [...] NANETTE CONSULTATION Observed: 09/23/2018 Status: F Source: [facility] 11:47 AM HEALTH SYSTEM REPOSITORY Patient: LOVE PHELAN MRN: ([id number] Age: 73 years Sex: Male : 1945 Associated Diagnoses: None Author: Emerson Solis MD Nephrology Consultation dictated, #[id number]. Thanks, Emerson Solis MD [facility], [facility]. Pager: Office: PROGRESS NOTES Observed: 09/23/2018 Status: F Source: [facility] 9:52 AM HEALTH SYSTEM REPOSITORY Patient: LOVE PHELAN MRN: ([id number] Age: 73 years Sex: Male : 1945 Associated Diagnoses: None Author: Hema DHALIWAL , Opal Savage Heart Failure Education Initiated : Reviewed medications, daily weights, low sodium diet, daily activity levels, signs and symptoms of Heart Failure and when to call physician. Evaluation of LV Function :09/22/2018 LVEF 60-65%, Severe MR Medications :IV lasix, Coreg, Norvasc Referrals :Deferred [facility] since patient lives in [facility] Comments :Patient with history of CAD, found [...] when to call physician. He lives in [facility] and is here for the . He follows with sternman Dr. Hemant Blanchard in [place] [facility] ROLE score for readmission 9. Recommendations :Close OP follow up with Dr. Blanchard Quality Measures Documentation PROGRESS NOTES Observed: 09/23/2018 Status: C Source: [facility] 9:29 AM HEALTH SYSTEM REPOSITORY Patient: LOVE PHELAN MRN: [id number] Age: 73 years Sex: Male : 1945 Associated Diagnoses: None Author: Sarah Bryan CNP Supervising Physician Comments Documentation By: Nurse Practitioner. Comments HPI: Mr. Aleman is a 73 year old male with past medical history significant for chronic ischemic heart disease s/p multivessel stenting in 2009, HTN, HLD, T2DM, CKD, and obesity who presented to [facility] on 09/21/18 with c/o shortness of breath. He was in [place] visiting family for the holidays when he [...] valve repair/replacement. Of note, pt lives in [place] and follows with his Pressurization Mechanic there regularly. He had a routine office [...] PROGRESS NOTES Observed: 09/23/2018 Status: F Source: [facility] 7:52 AM [facility]ALTH SYSTEM REPOSITORY Patient: LOVE PHELAN MRN: [id number] Age: 73 years Sex: Male : 1945 Associated Diagnoses: None Author: Zane AMBRIZ , [facility] Cardiology Progress Note Subjective: diuresed 1.7 liters. [...] underlying CAD. -Chronic ischemic heart disease; s/p KS and multivessel stenting 2009. He had negative [...] that OR is contemplated Candie Degroot MD [facility] 09/23/2018 08:16 Vital Signs (Past 36 Hours) [...] mcg = 0.1 mL, IM, Inject, Month (Z21Vlus),, x 30 Day(s), 09/21/18 5:49:00 EST Last [...] Given CBC Collected: 09/23/2018 Status: F Source: [facility] 7:38 AM HEALTH SYSTEM REPOSITORY TYPE CODE TESTS RESULT OUT OF REFERENCE UNITS RANGE LAB 16023-5(LO 11.0-14.8 % INC) RDW Normal 14.4 LAB 04903-9(LO 39.0-49.0 % INC) Low Hematocrit 37.2 LAB 718-7(LOIN 13.5-17.5 gm/dL C) Low Hemoglobin 12.3 LAB 47114-5(LO 6.2-12.1 FL INC) MPV Normal 9.4 LAB 74645-6(LO 32.0-36.0 gm/dL INC) MCHC Normal 33.0 LAB 12758-1(LO 4.30-5.70 million/mcL INC) Red Normal Blood Cell 4.39 Count LAB 14233-4(LO 142-424 thou/mcL INC) Normal Platelet Count 170 LAB 31675-8(LO 27.0-34.0 Picograms INC) MCH Normal 27.9 LAB 64296-0(LO 4.6-10.2 thou/mcL INC) WBC Normal Count 8.9 LAB 38636-3(LO 80.0-97.0 FL INC) MCV Normal 84.6 Performed By: #### 08624-1 #### [facility] [address], [place] BNP (B -TYPE Collected: 09/23/2018 Status: F Source: [facility] NATRIURETIC PEPTIDE) 7:38 AM HEALTH SYSTEM REPOSITORY TYPE CODE TESTS RESULT OUT OF REFERENCE UNITS RANGE LAB 58284-8(LO 0-100 Picogram/m INC) l B Type High Natriuretic 140 Peptide Result Comment: Less than 100 CHF is unlikely Greater than 100 Possible left ventricular And less than 400 dysfunction-unlikely acute decompensation Greater than 400 Suspicious for decompensated heart failure Performed By: #### 17029-7 #### [facility] [address], [place] GFRAA Collected: 09/23/2018 Status: F Source: [facility] 7:38 AM HEALTH SYSTEM REPOSITORY TYPE CODE TESTS RESULT OUT OF RANGE REFERENCE UNITS LAB 95599-3(LO mL/min INC) GFR Normal Estimated 55 Result Comment: The MDRD equation has not been validated for those over 70 years, women, patients with serious co-morbid conditions, or with extremes of body size, muscle mass of nutritional status. Performed By: #### 03493-0, 55957-9r8, 92743-3 #### [facility] [address], [place] GFRBB Collected: 09/23/2018 Status: F Source: [facility] 7:38 AM HEALTH SYSTEM REPOSITORY TYPE CODE TESTS RESULT OUT OF RANGE REFERENCE UNITS LAB 51210-7(LO mL/min INC) GFR Normal Estimated Non 45 Performed By: #### 63294-1, 79993-1a2, 82739-7 #### [facility] [address], [place] BASIC METABOLIC PANEL Collected: 09/23/2018 Status: F Source: [facility] 7:38 AM HEALTH SYSTEM REPOSITORY TYPE CODE TESTS RESULT OUT OF RANGE REFERENCE UNITS LAB 2160-0(HANY 0.60-1.30 mg/dL NC) High Creatinine 1.52 LAB 56032-3(LO 8-20 mg/dL INC) High BUN 63 LAB 2075-0(HANY 98-107 mMol/L NC) Chloride Normal Level 98 LAB 2951-2(HANY 136-145 mMol/L NC) Low Sodium Level 133 LAB 30974-5(LO 70-110 mg/dL INC) High Glucose Level 265 LAB 08741-3(LO 6.0-18.0 mMol/L INC) Anion Normal Gap 13.0 LAB 2028-9(HANY 22-32 mMol/L NC) Carbon Normal Dioxide Level 22 LAB 2823-3(HANY 3.6-5.1 mMol/L NC) Normal Potassium Level 4.1 LAB 19432-6(LO 8.9-10.3 mg/dL INC) Low Calcium Total 8.8 Performed By: #### 81149-9, 83266-6y7, 06312-1 #### [facility] [address] [place], [place] GLUCOSE POCT Collected: 09/23/2018 Status: F Source: [facility] (UPLOADED) 5:41 AM HEALTH SYSTEM REPOSITORY TYPE CODE TESTS RESULT OUT OF REFERENCE UNITS RANGE LAB 2340-8(LOIN 70-110 mg/dL C) High Glucose 254 POCT-LAB Result Comment: Treatment ranges and critical values established by Patient Care Services. All follow-up actions were taken by Patient Care Services. Performed By: #### 2430-8 #### [facility] POINT OF CARE CONSULTATION Observed: 09/23/2018 Status: F Source: [facility] 12:00 AM HEALTH SYSTEM REPOSITORY DICTATED BY:DAPHNEY JAUREGUI MD SERVICE DATE:09/23/2018 REASON FOR CONSULTATION: Pre-mitral valve replacement dental evaluation. HISTORY OF PRESENT ILLNESS: The patient is a 73-year-old male who presented to [facility] on September 21 with a complaint of severe shortness of breath. He is a resident of [place] and was visiting family in [place] for the holidays when he developed shortness [...] is indicated. LOVE PHELAN Birthdate: 1945 #: [id number] D/09/23/2018 11:37:57 T/09/23/2018 12:10:18 VOICE JOB ID:[id number] Faith thanks you for the opportunity to care for your patient. DID: [id number] CONSULTATION Observed: 09/23/2018 Status: F Source: [facility] 12:00 AM HEALTH SYSTEM REPOSITORY DICTATED BY:EMERSON CARVAJAL MD SERVICE DATE:09/23/2018 REPORT TITLE: UROLOGY CONSOLATION REFERRING PHYSICIAN: Sarah Brayn NP. REASON FOR CONSULTATION: Chronic kidney disease, pending cardiac surgery. HISTORY OF PRESENT ILLNESS: The patient is a very pleasant 73-year-old male with multiple medical problems, with a history of severe coronary artery disease, which he is status post multivessel stenting in 2009, hypertension, hype rlipidemia, type 2 diabetes mellitus as well as reportedly chronic kidney disease. He lives in [place], [place], and was in [facility] family. He does admit to significant feasting on giving with likely a significant sodium intake. He noted some difficulties with dyspnea a nd some chest discomfort the following day. This progressed to the point that he was dyspneic at rest. He was presented to the [facility] Emergency Department, where he was [...] patient does tend to follow with the [facility] in [place], [place]. He is aware of some degree [...] with you. LOVE PHELAN Birthdate: 1945 #: [id number] D/09/23/2018 12:02:06 T/09/23/2018 12:43:46 VOICE JOB ID:[id number] Jed Velarde thanks you for the opportunity to care for your patient. CC: [facility] DID: [id number] GLUCOSE POCT Collected: 09/22/2018 Status: F Source: [...] HEALTH SYSTEM REPOSITORY Patient: LOVE PHELAN MRN: [id number] Age: 73 years Sex: Male : 1945 [...] Echo ordered, cardiology consult and went to [facility] today showing patent stents to LCx and [...] changes, we'll continue trend troponin and underwent [facility] showing elevated levels LVEDP and HF. 5. [...] and examiend. Pt on the way to [facility] Denies fevers, chills, nausea, vomiting, abdominal pain, [...] PO, w/bkfst+din cyanocobalamin: 100 mcg, IM, Month (L05Sjul) oxygen: 1 Each, Inhalation, Daily Documented Medications [...] mcg/ml injectable solution: 1 mL, IM, Month (Y05Vxvv), Each, 0 Refill(s) glipiZIDE 10 mg oral [...] UNITS LAB 5811-5(LO 1.002-1.030 INC) Normal Specific [place] Urine 1.010 LAB 58042-3(L NORMAL OINC) Normal Urobilinogen NORMAL Urine LAB 5803-2(LO 4.5-8.0 INC) Normal pH Urine 6.0 LAB 94117-4(L NEGATIVE OINC) Normal Nitrite Urine NEGATIVE LAB [...] NORMAL INC) Glucose Abnormal Urine 150MG/DL LAB 49332-4(L NEGATIVE OINC) Normal Bilirubin Urine NEGATIVE Performed By: #### 94391-9, 33668-5 #### [facility], [address] [place], [place] URINALYSIS MICROSCOPIC Collected: 09/22/2018 Status: F Source: [facility] 1:40 PM HEALTH SYSTEM REPOSITORY TYPE CODE TESTS RESULT OUT OF RANGE REFERENCE UNITS LAB 5821-4x1(L 0-5 /hpf OINC) Normal WBC Urine 1 LAB 8247-9(HANY NONE/LPF NC) Abnormal Mucous RARE Urine LAB 61899-0(LO 0-5 /hpf INC) Normal RBC Urine 1 Performed By: #### 70355-1, 98443-8 #### [facility], [address] [place] [address] CONSULTATION Observed: 09/22/2018 Status: F Source: [facility] 1:01 PM HEALTH SYSTEM REPOSITORY Patient: LOVE PHELAN MRN: [id number] Age: 73 years Sex: Male : 1945 Associated Diagnoses: None Author: Sarah Bryan CNP Supervising Physician Comments Documentation By: Nurse Practitioner. Admission Information Source of history: The patient, medical records and . History of Present Illness CURYUNG: Mr. Aleman is a 73 year old male with past medical history significant for chronic ischemic heart disease s/p multivessel stenting in 2009, HTN, HLD, T2DM, CKD, and obesity who presented to [facility] on 09/21/18 with c/o shortness of breath. He was in [place] visiting family for the holidays when he [...] valve repair/replacement. Of note, pt lives in [place] and follows with his Pressurization Mechanic there regularly. He had a routine office [...] Impression and Plan Diagnosis Mitral valve regurgitation (GUM89-DE I34.0, Working, Medical). Consult Thank you for [...] by Patient Care Services. Performed By: #### 58110-5 #### [facility] POINT OF CARE CARDIAC CATHETERIZATION Observed: 09/22/2018 Status: F Source: [facility] 11:27 AM HEALTH SYSTEM REPOSITORY Cardiac Diagnostic Report Demographics Patient LINEBAUGH Date of 1945 Height 70.87 Name LOVE patel Patient [id number] Age 73 year(s) Weight 233.69 Number pounds Visit [id number] Gender Male BSA 2.25 m2 Number Date [...] +--------+--------+--------+---------+ + + Shunts Oxygen Values O2 Jejgvrzr006.48O2 Ksvrmsmdskj562.29 Flows (l/min)Qs6.45 Vascular Resistance + +-----+-----+----+----+---------+-------+ !CO [...] I.V. 40 mg. Diagnostic Catheters - Bazzi [place]-Yajaira 7Fr [employer] TD(141F7) was used for right heart catheterization; - Cordis 6Fr JR 5 100cm (688-232) was used for left heart catheterization and coronary angiography; - Cordis 6Fr JL 3.5 100cm (163613) was used for coronary angiography; Estimated blood loss: 10 ml. Contrast Material - Vrlydh73 ml Fluoroscopy Time: Diagnostic: 2:00 minutes. Total: [...] ECHOCARDIOGRAM TXT Observed: 09/22/2018 Status: F Source: [facility] 9:08 AM HEALTH SYSTEM REPOSITORY Transthoracic Echocardiography Report (TTE) Demographics Patient Name TAPAN Plasencia Date of 1945 Patient Number [id number] Age 73 year(s) Visit Number [id number] Gender Male Room Number 0229 Referring Robe Kohler MD Fruit [employer] Maco Hardin Physician RDCS Interpreting [facility] Ordering Robe Kohler MD Provider Consultants [...] injected due to poor endocardial border definition; questioned documents examiner could not detect 2 or more contiguous [...] HEALTH SYSTEM REPOSITORY Patient: LOVE PHELAN MRN: [id number] Age: 73 years Sex: Male : 1945 Associated Diagnoses: None Author: Guadalupe PRODUCTION PROOFREADER, Debi Assessment Received call from nurse per [...] Source: JED VELARDE LYTES LACTATE 6:05 AM [facility] (UPLOAD) REPOSITORY TYPE CODE TESTS RESULT OUT OF REFERENCE UNITS RANGE LAB CD:586148 cm3 8165(LOIN C) AVAP Min POCT Normal 0 LAB CD:388204 Cm Water 8065(LOIN C) CPAP/PEEP POCT Normal 0 LAB 2019-8(LO 32-48 mmHg INC) pCO2 Arterial POCT Normal 40 LAB 42557-4(L 70-110 mg/dL OINC) Glucose POCT High 311 LAB 16594-4(L 10.0-20.0 mEq/L OINC) Low Anion Gap POCT 9.6 LAB 87956-4(L -2.0-3.0 mMol/L OINC) Low Base Excess POCT -3.1 LAB 05659-9(L % OINC) Carboxyhemoglobin POCT Normal 0.5 Result Comment: NON SMOKERS <1.5% SMOKERS 1.5 - 9.0% LAB CD:1464709357(LOINC) EPAP Normal POCT 0 LAB CD:4967080681(LOINC) cm3 Tidal Normal Volume POCT 0 LAB 718-7(LOINC) 13.5-1 gm/dL Low 7.5 Hemoglobin POCT 11.7 LAB 2075-0(LOINC) 98-106 mEq/L Chloride Normal POCT 105 LAB 15570-7(LOINC) VOL% O2 Normal Content POCT 14.8 LAB 2744-1(LOINC) 7.35-7 .45 Blood Normal Gas pH Arterial POCT 7.36 Result Comment: A result of UNABLE indicates the actual value could not be calculated. Treatment ranges and critical values established by Patient Care Services. All follow-up actions were taken by Patient Care Services. LAB 96376-6(LOINC) 0.5-1.6 mMol/L Normal Lactate POCT 1.5 LAB CD:4022571532(LOINC ) Resp. Normal Rate POCT 0 LAB CD:5166896565(LOINC ) IPAP Normal POCT 0 LAB 01940-1(LOINC) 3.5-5.0 mEq/L Normal Potassium POCT 4.5 LAB 2708-6(LOINC) 95.0-99.0 % Low O2 Saturation Arterial POCT 90.7 LAB 27705-7(LOINC) FiO2 Normal POCT 36.0 Result Comment: POC FI O2 CORRECTED FROM 28.0 ON 09/22/18 AT 0628 BY [id number] NOTIFIED BY RESP THERAPIST [id number] THAT FIO2 AND LPM WERE ENTERED INCORRECTLY. RESULTS CORRECTED BY THE LAB. SAS 09/22/18 06:28 LAB 21987-2(LOINC) 39-49 % Low Hematocrit POCT 36 LAB CD:5928866515(LOINC) Mode Normal POCT NCA LAB CD:7315446021(LOINC) 0-99 Pressure Normal Support POCT 0 LAB 24656-3(LOINC) LPM POCT Normal 4.0 Result Comment: POC LITER FL CORRECTED FROM 2.0 ON 09/22/18 AT 0628 BY [id number] LAB 2951-2(LOINC) 136-146 mEq/L Sodium POCT Normal 136 LAB 12883-9(LOINC) 21.0-28.0 mMol/L HCO3 Normal Arterial POCT 22.2 LAB 2614-6(LOINC) 0.2-0.6 % High Methemoglobin 0.9 POCT LAB 86032-8(LOINC) Sample Type Normal POCT Arterial LAB CD:4725012804(LOIN C) Pulse Normal Oximetry POCT 94 Clinic LAB CD:7386677964(LOIN Cm Water C) PEEP POCT Normal 0 LAB CD:3933748054(LOIN cm3 C) AVAP Max Normal POCT 0 LAB 2703-7(LOINC) 83-108 mmHg pO2 Low Arterial POCT 63 LAB 18753-2(LOINC) 94.0-99.0 % O2 Low Hemoglobin POCT 89.4 LAB 98397-0(LOINC) 1.12-1.32 mMol/L Calcium Normal Ionized POCT 1.16 LAB 2026-3(LOINC) 22.0-29.0 mMol/L Total CO2 Low Arterial POCT 20.5 LAB CD:5006251207(LOIN C) Site POCT Normal RRA Performed By: #### 71060-1u5 #### POINT OF CARE PROTHROMBIN TIME Collected: 09/22/2018 Status: F Source: [facility] 5:46 AM HEALTH SYSTEM REPOSITORY TYPE CODE TESTS RESULT OUT OF RANGE REFERENCE UNITS LAB 5902-2(HANY 9.3-12.4 Sec NC) High Prothrombin Time (PT) 15.6 LAB 26952-5(LO INC) INR Normal 1.35 Result Comment: The recommended therapeutic INR range for most cardiac indications is 2.0-3.0. For high intensity therapy(ie.mechanical heart valves), the recommended range is 2.5-3.5. Performed By: #### 5902-2 #### [facility] [address], [place] PARTIAL THROMBOPLASTIN Collected: 09/22/2018 Status: F Source: [facility] TIME (APTT) 5:46 AM HEALTH SYSTEM REPOSITORY Order Comment: To be drawn (0600, 1400, 2200) while on heparin TYPE CODE TESTS RESULT OUT OF REFERENCE UNITS RANGE LAB 49547-4(LO 23.6-35.3 Sec INC) Partial High Thromboplastin 79.4 (aPTT) Performed By: #### 5902-2 #### [facility] [address] [place], [place] CBC Collected: 09/22/2018 Status: F Source: [facility] SYD 5:46 AM HEALTH SYSTEM REPOSITORY TYPE CODE TESTS RESULT OUT OF REFERENCE UNITS RANGE LAB 61534-8(LO 11.0-14.8 % INC) RDW Normal 14.1 LAB 718-7(LOIN 13.5-17.5 gm/dL C) Low Hemoglobin 11.8 LAB 39417-0(LO 32.0-36.0 gm/dL INC) MCHC Normal 33.7 LAB 33915-0(LO 27.0-34.0 Picograms INC) MCH Normal 28.0 LAB 87377-2(LO 4.30-5.70 million/mcL INC) Low Red Blood Cell 4.22 Count LAB 47431-2(LO 4.6-10.2 thou/mcL INC) WBC Normal Count 8.0 LAB 27630-1(LO 6.2-12.1 FL INC) MPV Normal 9.3 LAB 45059-4(LO 80.0-97.0 FL INC) MCV Normal 83.0 LAB 49721-4(LO 142-424 thou/mcL INC) Normal Platelet Count 163 LAB 27268-0(LO 39.0-49.0 % INC) Low Hematocrit 35.0 Performed By: #### 10628-6 #### [facility] [address] [place], [place] BNP (B -TYPE Collected: 09/22/2018 Status: F Source: [facility] NATRIURETIC PEPTIDE) 5:46 AM HEALTH SYSTEM REPOSITORY TYPE CODE TESTS RESULT OUT OF REFERENCE UNITS RANGE LAB 26275-5(LO 0-100 Picogram/m INC) l B Type High Natriuretic 281 Peptide Result Comment: Less than 100 CHF is unlikely Greater than 100 Possible left ventricular And less than 400 dysfunction-unlikely acute decompensation Greater than 400 Suspicious for decompensated heart failure Performed By: #### 03301-3 #### [facility] [address] [place], [place] TROPONIN I Collected: 09/22/2018 Status: F Source: [facility] 5:46 AM [facility]ALTH SYSTEM REPOSITORY TYPE CODE TESTS RESULT OUT OF RANGE REFERENCE UNITS LAB 10372-4(LO <0.06 ng/mL INC) Abnormal Alert Troponin I 0.51 Result Comment: Previous result critical and called. Call not required for this result. Performed By: #### 26617-7 #### [facility] [address] [place], [place] GFRAA Collected: 09/22/2018 Status: F Source: [facility] 5:46 AM HEALTH SYSTEM REPOSITORY TYPE CODE TESTS RESULT OUT OF RANGE REFERENCE UNITS LAB 73787-2(LO mL/min INC) GFR Normal Estimated 50 Result Comment: The MDRD equation has not been validated for those over 70 years, women, patients with serious co-morbid conditions, or with extremes of body size, muscle mass of nutritional status. Performed By: #### 72867-3, 48703-6r8, 3016-3, 71059-0 #### [facility] [address] [place], [place] GFRBB Collected: 09/22/2018 Status: F Source: [facility] 5:46 AM HEALTH SYSTEM REPOSITORY TYPE CODE TESTS RESULT OUT OF RANGE REFERENCE UNITS LAB 02237-2(LO mL/min INC) GFR Normal Estimated Non 41 Performed By: #### 25814-6, 41044-8f7, 3016-3, 48988-4 #### [facility] [address] [place], [place] THYROID STIMULATING Collected: 09/22/2018 Status: F Source: [facility] HORMONE 5:46 AM HEALTH SYSTEM REPOSITORY TYPE CODE TESTS RESULT OUT OF RANGE REFERENCE UNITS LAB 3015-5(HANY 0.45-5.33 mcIU/mL NC) Thyroid Normal Stimulating 1.36 Hormone Performed By: #### 21630-2, 49884-4t4, 3016-3, 90421-3 #### [facility] [address] [place], [place] BASIC METABOLIC PANEL Collected: 09/22/2018 Status: F Source: JED GARLANDMEL 5:46 AM HEALTH SYSTEM REPOSITORY TYPE CODE TESTS RESULT OUT OF RANGE REFERENCE UNITS LAB 15117-6(LO 6.0-18.0 mMol/L INC) Anion Normal Gap 7.0 LAB 83017-6(LO 8.9-10.3 mg/dL INC) Low Calcium Total 8.6 LAB 2951-2(HANY 136-145 mMol/L NC) Low Sodium Level 132 LAB 2075-0(HANY 98-107 mMol/L NC) Chloride Normal Level 104 LAB 2160-0(HANY 0.60-1.30 mg/dL NC) High Creatinine 1.65 LAB 2823-3(HANY 3.6-5.1 mMol/L NC) Normal Potassium Level 4.6 LAB 79577-5(LO 70-110 mg/dL INC) High Glucose Level 314 LAB 55603-0(LO 8-20 mg/dL INC) High BUN 63 LAB 8-9(HANY 22-32 mMol/L NC) Low Carbon Dioxide Level 21 Performed By: #### 86397-3, 70573-0a3, 3016-3, 87082-6 #### [facility] [address] [place], [place] LIPID PANEL Collected: 09/22/2018 Status: F Source: JED GARLANDMEL 5:46 AM HEALTH SYSTEM REPOSITORY TYPE CODE TESTS RESULT OUT OF RANGE REFERENCE UNITS LAB 88735-5(LO <100 mg/dL INC) LDL Normal Cholesterol 54 LAB 2093-3x1(L <200 mg/dL OINC) Lipid Normal Profile - 125 Cholesterol Result Comment: Refer to the National Cholesterol Education Program ATP III cut offs for risk stratification. LAB 2091-7(LOINC) 2-38 mg/dL VLDL High 44 LAB 2571-8(LOINC) <200 mg/dL Lipid Profile High - Triglyceride 219 LAB 5-9(LOINC) >40 mg/dL HDL Low Cholesterol 27 Performed By: #### 27236-3 #### [facility] [address] [place], [place] GLYCOHEMOGLOBIN (HGB A1C) Collected: 09/22/2018 Status: F Source: [facility] PANEL 5:46 AM HEALTH SYSTEM REPOSITORY TYPE CODE TESTS RESULT OUT OF REFERENCE UNITS RANGE LAB 4548-4(HANY 4.0-6.0 % tl hgb NC) High Hemoglobin A1c 9.0 Result Comment: New method 01/25/15: [employer] HPLC (high-performance liquid chromatography) Performed By: #### 4549-2 #### [facility], [address] [place] [address]. GLUCOSE POCT Collected: 09/22/2018 Status: F Source: [...] HEALTH SYSTEM REPOSITORY Patient: LOVE PHELAN MRN: ([id number] Age: 73 years Sex: Male : 1945 Associated Diagnoses: None Author: Guadalupe PRODUCTION PROOFREADER, Debi Assessment Received call from nurse per [...] RESULT OUT OF REFERENCE UNITS RANGE LAB 27623-4(LO 23.6-35.3 Sec INC) Partial High Thromboplastin 88.6 (aPTT) Performed By: #### 3173-2 #### [facility] [address] [place], [place] GLUCOSE POCT Collected: 09/21/2018 Status: F [...] RESULT OUT OF RANGE REFERENCE UNITS LAB 46738-8(LO <0.06 ng/mL INC) Abnormal Alert Troponin I 1.88 Result Comment: Critical value(s) on tests TROPONIN called to and read-back by [id number] , at location BARBARA by [id number] time called 09/21/18 16:41 Performed By: #### 50981-1 #### [facility] [address] [place], [place] TROPONIN I Collected: 09/21/2018 Status: F Source: [facility] 11:57 AM HEALTH SYSTEM REPOSITORY TYPE CODE TESTS RESULT OUT OF RANGE REFERENCE UNITS LAB 59953-2(LO <0.06 ng/mL INC) Abnormal Alert Troponin I 2.03 Result Comment: Previous result critical and called. Call not required for this result. 09/21/18 12:45 FAB Performed By: #### 09041-6 #### [facility] [address] [place], [place] MAGNESIUM LEVEL Collected: 09/21/2018 Status: F Source: [facility] 9:56 AM HEALTH SYSTEM REPOSITORY TYPE CODE TESTS RESULT OUT OF REFERENCE UNITS RANGE LAB 09626-3(LO 1.8-2.5 mg/dL INC) Low Magnesium Level 1.7 Performed By: #### 84319-9, 96114-1 #### [facility] [address] [place], [place] BASIC METABOLIC PANEL Collected: 09/21/2018 Status: F Source: [facility] 9:56 AM HEALTH SYSTEM REPOSITORY TYPE CODE TESTS RESULT OUT OF RANGE REFERENCE UNITS LAB 70904-6(LO 8-20 mg/dL INC) High BUN 51 LAB 2075-0(HANY 98-107 mMol/L NC) Chloride Normal Level 100 LAB 40599-3(LO 6.0-18.0 mMol/L INC) Anion Normal Gap 14.0 LAB 84086-4(LO 8.9-10.3 mg/dL INC) Low Calcium Total 8.5 LAB 2160-0(HANY 0.60-1.30 mg/dL NC) High Creatinine 1.81 LAB 2951-2(HANY 136-145 mMol/L NC) Low Sodium Level 134 LAB 2823-3(HANY 3.6-5.1 mMol/L NC) Normal Potassium Level 4.8 LAB 17360-6(LO 70-110 mg/dL INC) High Glucose Level 312 LAB 2028-9(HANY 22-32 mMol/L NC) Low Carbon Dioxide Level 20 Performed By: #### 30300-8, 10807-0 #### [facility] [address] [place], [place] PROTHROMBIN TIME Collected: 09/21/2018 Status: F Source: [facility] 9:56 AM [facility]ALTH SYSTEM REPOSITORY TYPE CODE TESTS RESULT OUT OF RANGE REFERENCE UNITS LAB 81014-2(HANY NC) Normal INR 1.22 Result Comment: The recommended therapeutic INR range for most cardiac indications is 2.0-3.0. For high intensity therapy(ie.mechanical heart valves), the recommended range is 2.5-3.5. LAB 5902-2(LOINC) 9.3-12.4 Sec Prothrombin High Time (PT) 14.0 Performed By: #### 5902-2, 3173-2 #### [facility] [address] [place], [place] PARTIAL THROMBOPLASTIN Collected: 09/21/2018 Status: F Source: [place] TIME (APTT) 9:56 AM HEALTH SYSTEM REPOSITORY TYPE CODE TESTS RESULT OUT OF REFERENCE UNITS RANGE LAB 13287-6(LO 23.6-35.3 Sec INC) Partial Normal Thromboplastin 33.9 (aPTT) Performed By: #### 5902-2, 3173-2 #### [facility] [address] [place], [place] TROPONIN I Collected: 09/21/2018 Status: F Source: [place] 9:56 AM [facility]ALTH SYSTEM REPOSITORY TYPE CODE TESTS RESULT OUT OF RANGE REFERENCE UNITS LAB 13736-0(LO <0.06 ng/mL INC) Abnormal Alert Troponin I 1.54 Result Comment: Previous result critical and called. Call not required for this result. 09/21/18 10:50 FAB Performed By: #### 48979-2 #### [facility] [address] [place], [place] PROGRESS NOTES Observed: 09/21/2018 Status: F Source: [place] 8:00 AM HEALTH SYSTEM REPOSITORY Patient: LOVE PHELAN MRN: ([id number] Age: 73 years Sex: Male : 1945 [...] TROPONIN I Collected: 09/21/2018 Status: F Source: [place] 7:52 AM [facility] SYSTEM REPOSITORY TYPE CODE TESTS RESULT OUT OF RANGE REFERENCE UNITS LAB 87785-8(LO <0.06 ng/mL INC) Abnormal Alert Troponin I 0.99 Result Comment: Critical value(s) on tests TROPI called to and read-back by [id number] , at location [place] by [id number] time called 09/21/18 09:05 FAB Performed By: #### 19957-4 #### [facility] [address] [place], [place] GLUCOSE POCT Collected: 09/21/2018 Status: F Source: [place] (UPLOADED) 6:54 AM HEALTH SYSTEM REPOSITORY TYPE [...] HEALTH SYSTEM REPOSITORY Patient: LOVE PHELAN MRN: ([id number] Age: 73 years Sex: Male : 1945 Associated Diagnoses: None Author: Bruce MOLINA , Christi Dumont Comments Mr. Love Phelan is a 73 yo male who p/w acute SOB and orthopnea. He has a PMH significant for CAD s/p KS and multivessel stenting 2009, HTN, HLD, DM2, CKD, carotid vascular disease, and obesity. He is in [place] visiting family for holidays and historically follows with Dr. Hemant Blanchard in [place], [place] area. He was last seen 06/2018 [...] underlying CAD. -Chronic ischemic heart disease; s/p KS and multivessel stenting 2009. He had negative [...] developed in collaboration with Dr. Christi Tang. [id number] Christi Barrera CNP Attending attestation I have [...] benefits outweigh the risks Christi Tang MD [place] [employer] Clerk HISTORY AND PHYSICAL Observed: 09/21/2018 Status: F Source: [facility] 5:52 AM [facility]ALTH SYSTEM REPOSITORY Patient: LOVE [...] unknown baseline since he lives out of [place] and he is visiting his daughter over [...] PO, Daily cyanocobalamin: 100 mcg, IM, Month ([id number]) oxygen: 1 Each, Inhalation, Daily Documented Medications [...] mcg/ml injectable solution: 1 mL, IM, Month ([id number]), Each, 0 Refill(s) glipiZIDE 10 mg oral [...] determined Impression and Plan Diagnosis Acute CHF (GXH59-AI I50.9, Working, Medical). XR CHEST 1 VIEW [...] WITH DIFFERENTIAL Collected: 09/21/2018 Status: F Source: [place] 4:14 AM [facility]ALTH SYSTEM REPOSITORY TYPE CODE TESTS RESULT OUT OF REFERENCE UNITS RANGE LAB 32926-6(LO 0.0-12.0 % INC) Normal Monocyte 9.2 LAB 742-7(LOIN 0.00-0.90 thou/mcL C) Normal Monocyte 0.60 Absolute LAB 718-7(LOIN 13.5-17.5 gm/dL C) Normal Hemoglobin 13.9 LAB 79265-0(LO 11.0-14.8 % INC) RDW Normal 14.7 LAB 50923-4(LO 22.0-44.0 % INC) Low Lymphocyte 19.0 LAB 731-0(LOIN 1.00-4.80 thou/mcL C) Normal Lymphocyte 1.30 Absolute LAB 12791-7(LO 4.30-5.70 million/mcL INC) Red Normal Blood Cell 4.99 Count LAB 49832-0(LO 32.0-36.0 gm/dL INC) MCHC Normal 33.3 LAB 86765-7(LO 4.6-10.2 thou/mcL INC) WBC Normal Count 6.6 LAB 11210-0(LO 27.0-34.0 Picograms INC) MCH Normal 27.9 LAB 751-8(LOIN 1.80-7.70 thou/mcL C) Normal Neutrophil 4.50 Absolute LAB 52317-8(LO 40.0-70.0 % INC) Normal Neutrophil 67.9 LAB 22165-3(LO 80.0-97.0 FL INC) MCV Normal 83.7 LAB 31365-7(LO 6.2-12.1 FL INC) MPV Normal 9.0 LAB 07389-0(LO 0.0-2.0 % INC) Normal Basophil 0.9 LAB 704-7(LOIN 0.00-0.20 thou/mcL C) Normal Basophil 0.10 Absolute LAB 11592-6(LO 39.0-49.0 % INC) Normal Hematocrit 41.7 LAB 67422-4(LO 0.0-7.0 % INC) Normal Eosinophil 3.0 LAB 711-2(LOIN 0.00-0.70 thou/mcL C) Normal Eosinophil 0.20 Absolute LAB 08838-9(LO 142-424 thou/mcL INC) Normal Platelet Count 158 Performed By: #### 02742-6 #### [facility] [address] [place], [place] PROTHROMBIN TIME Collected: 09/21/2018 Status: F Source: [facility] SYD 4:14 AM HEALTH SYSTEM REPOSITORY TYPE CODE TESTS RESULT OUT OF RANGE REFERENCE UNITS LAB 5902-2(HANY 9.3-12.4 Sec NC) High Prothrombin Time (PT) 13.4 LAB 00854-9(LO INC) INR Normal 1.17 Result Comment: The recommended therapeutic INR range for most cardiac indications is 2.0-3.0. For high intensity therapy(ie.mechanical heart valves), the recommended range is 2.5-3.5. Performed By: #### 5902-2, 3173-2 #### [facility] [address] [place], [place] PARTIAL THROMBOPLASTIN Collected: 09/21/2018 Status: F Source: [place] TIME (APTT) 4:14 AM HEALTH SYSTEM REPOSITORY TYPE CODE TESTS RESULT OUT OF REFERENCE UNITS RANGE LAB 41981-3(LO 23.6-35.3 Sec INC) Partial Normal Thromboplastin 34.1 (aPTT) Performed By: #### 5902-2, 3173-2 #### [facility] [address] [place], [place] GFRAA Collected: 09/21/2018 Status: F Source: iDevices 4:14 AM HEALTH SYSTEM REPOSITORY TYPE CODE TESTS RESULT OUT OF RANGE REFERENCE UNITS LAB 12906-4(LO mL/min INC) GFR Normal Estimated 47 Result Comment: The MDRD equation has not been validated for those over 70 years, women, patients with serious co-morbid conditions, or with extremes of body size, muscle mass of nutritional status. Performed By: #### 09061-9, 28611-5f4, 93425-5, 33526-7 #### [facility] [address] [place], [place] GFRBB Collected: 09/21/2018 Status: F Source: [place] 4:14 AM [facility]ALTH SYSTEM REPOSITORY TYPE CODE TESTS RESULT OUT OF RANGE REFERENCE UNITS LAB 87962-0(LO mL/min INC) GFR Normal Estimated Non 39 Performed By: #### 89016-5, 88496-8j1, 88848-0, 21700-8 #### [facility] [address] [place], [place] BASIC METABOLIC PANEL Collected: 09/21/2018 Status: F Source: [place] 4:14 AM [facility]ALTH SYSTEM REPOSITORY TYPE CODE TESTS RESULT OUT OF RANGE REFERENCE UNITS LAB 2160-0(HANY 0.60-1.30 mg/dL NC) High Creatinine 1.74 LAB 62876-6(LO 6.0-18.0 mMol/L INC) Anion Normal Gap 12.0 LAB 2028-9(HANY 22-32 mMol/L NC) Low Carbon Dioxide Level 21 LAB 2951-2(HANY 136-145 mMol/L NC) Low Sodium Level 135 LAB 2075-0(HANY 98-107 mMol/L NC) Chloride Normal Level 102 LAB 24212-0(LO 8.9-10.3 mg/dL INC) Calcium Normal Total 9.0 LAB 53940-6(LO 70-110 mg/dL INC) High Glucose Level 221 LAB 04237-1(LO 8-20 mg/dL INC) High BUN 48 LAB 2823-3(HANY 3.6-5.1 mMol/L NC) Normal Potassium Level 4.2 Performed By: #### 39047-4, 21005-5i6, 61692-6, 36843-7 #### [facility] [address] [place], [place] TROPONIN I Collected: 09/21/2018 Status: F Source: [place] 4:14 AM [facility]ALTH SYSTEM REPOSITORY TYPE CODE TESTS RESULT OUT OF REFERENCE UNITS RANGE LAB 15021-1(HANY <0.06 ng/mL NC) High Troponin I 0.07 Performed By: #### 92387-0, 82531-0z2, 08822-7, 51060-8 #### [facility] [address] [place], [place] BNP (B -TYPE Collected: 09/21/2018 Status: F Source: [place] NATRIURETIC PEPTIDE) 4:14 AM HEALTH SYSTEM REPOSITORY TYPE CODE TESTS RESULT OUT OF REFERENCE UNITS RANGE LAB 02067-3(LO 0-100 Picogram/m INC) l B Type High Natriuretic 233 Peptide Result Comment: Less than 100 CHF is unlikely Greater than 100 Possible left ventricular And less than 400 dysfunction-unlikely acute decompensation Greater than 400 Suspicious for decompensated heart failure Performed By: #### 19392-3 #### [facility] [address] [place], [place] ED PHYSICIAN NOTES Observed: 09/21/2018 Status: F Source: [facility] 4:12 AM HEALTH SYSTEM REPOSITORY Patient: LOVE [...] REASON FOR CONSULTATION: CHF, elevated troponin. PRIMARY PROBATE CLERK: Hemant Blanchard MD PRIMARY CARE PHYSICIAN: Unknown. HISTORY OF PRESENT ILLNESS: The patient is a 73-year-old gentleman who presents to [facility] with acute shortness of breath and orthopnea. [...] disease and obesity. He resides in the [facility]; however, is in [place] visiting his family for the holidays and has historically followed with his sternman as noted above. He reports no cardiopulmonary complaints at baseline. 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 He resides in [facility] with his . FAMILY HISTORY: Father [...] 3. Chronic ischemic heart disease, status post KS and multivessel stenting in 2009, he had [...] management. 7. Hold his home hydrochlorothiazide and YING inhibition for now and follow renal function. [...] D/09/21/2018 10:22:04 T/09/21/2018 11:12:59 VOICE JOB ID: [id number] Jed Velarde thanks you for the opportunity to care for your patient. DID: [id number] CARDIOLOGY VISIT Observed: 07/15/2018 Status: F Source: [place] REPORT 11:39 AM [facility] REPOSITORY [facility] [address] [place] [address] OFFICE VISIT Date of Service: 07/15/18 MR#: [id number] Acct: [id number] Name: LOVE PHELAN Rep #: [id number] : 1945 Provider: Hemant Blanchard MD Age/Sex: 73/M Location: [facility] Status: Signed HPI HPI Chief Complaint: Follow [...] Pressure 144/58 Intake Visit Reasons: 6 M Acid Tester Required: No Accompanied by: Is patient in [...] unit PO DAILY 07/15/18 [History Confirmed 07/15/18] [facility] Medical History Atherosclerotic 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[place] coronary artery without angina pectoris (Chronic) Diabetes [...] CARDIOLOGY VISIT Observed: 12/18/2017 Status: F Source: [place] REPORT 6:00 PM [facility] REPOSITORY [facility] [address] [place] [address] OFFICE VISIT Date of Service: 12/18/17 MR#: [id number] Acct: [id number] Name: LOVE PHELAN Rep #: [id number] : 1945 Provider: Alma Delia Aquino Age/Sex: 72/M Location: [facility] Status: Signed [facility] Details: LOVE PHELAN, is a 72 [...] Lt brachial Intake Visit Reasons: 6 M Acid Tester Required: No Accompanied by: Is patient in [...] PFSH Medical History Atherosclerotic 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[place] coronary artery without angina pectoris (Chronic) Diabetes [...] noted. Assessment AND Plan 1. Atherosclerosis of [place] coronary artery of [place] heart without angina pectoris I25.10 Plan - [...] prior to saving. 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 transplanted heart: [place] heart HTN (hypertension), benign I10 Pure hypercholesterolemia E78.00; E78.0 Hyperlipidemia type: pure hypercholesterolemia Coding Level of Care Code Off vis,est,level 3 Diagnoses Atherosclerosis of [place] coronary artery of [place] heart without angina pectoris I25.10 Associated angina: without angina Coronary Disease-Associated Artery/Lesion type: [place] artery [place] vs. transplanted heart: [place] heart HTN (hypertension), benign I10 Pure hypercholesterolemia E78.00; E78.0 Hyperlipidemia type: pure hypercholesterolemia 12/18/17 1156 <Electronically signed by Alma Delia AMBROCIO> Date Alma Delia AMBROCIO 12/18/17 1800<Electronically signed by Julian Hay MD> Cosigner Signature: Date (if applicable) Julian Hay MD CC: Akira Tara LIVER PROFILE Collected: 12/13/2017 Status: F Source: WILD 8:43 AM [facility] REPOSITORY TYPE CODE TESTS RESULT OUT [...] 0.06 Performed By: #### L500.3400, L500.4100 #### [facility] [address] [place], [address] LIPID PROFILE Collected: 12/13/2017 Status: F Source: [place] 8:43 AM [facility] REPOSITORY TYPE CODE TESTS RESULT OUT [...] 38 Performed By: #### L500.3400, L500.4100 #### [facility] [address] [place], [address] ALLERGIES ALLERGIES DATE TYPE / CODE NAME / CODE REACTION SEVERITY SOURCE 10/17/2018 Drug doxycycline/F Hives Unknown [facility] Allergy/4160 [id number]([facility] Hospital 22371(SNOMED ORM) Repository CT) 12/14/2017 Drug No Known Unknown [facility] Allergy/4160 Allergies/F00 Hospital 65244(SNOMED 1111342(RXNOR Repository CT) M) ENCOUNTERS ENCOUNTERS ADMIT/DISCHARGE ACCOUNT NUMBER ADMITTING ENCOUNTER LOCATION SOURCE CLASS 11/18/2018 [id number] [facility] ding:CR Repository 11/10/2018 [id number] [facility] ding:LAB Repository 10/24/2018 [id number] [facility] Hospital ding:LAB.FUT Repository URE 10/17/2018/10/17/20 [id number] Ambulatory [address] ding:LAB Repository 10/17/2018/10/17/20 [id number] Ambulatory BMSBuilding: [facility] Repository 10/16/2018 [id number] Ambulatory B[facility]Building: [facility] Repository 10/13/2018/10/13/20 [id number] [address] Repository :MCNO 10/10/2018 [id number] Ambulatory [facility] ding:LABSPEC Repository 10/08/2018 [id number] Ambulatory [facility] ding:LABSPEC Repository 10/07/2018 [id number] Ambulatory [facility] ding:LAB Repository 10/03/2018/10/03/20 [id number] Emergency [address] ding:ED Repository 10/02/2018 [id number] Ambulatory [facility] ding:LAB.FUT Repository URE 09/21/2018/10/01/20 [id number] [place], [address] Repository :CPCERoom: 0Y27Byj: 07/15/2018/07/15/20 [id number] Ambulatory BMSBuilding: [place] [address] [facility] Repository 12/18/2017/12/18/19 [id number] Ambulatory BMSBuilding: [place] [address] [facility] Repository 12/14/2017 [id number] Ambulatory BMSBuilding: [place] [facility]MS[facility] Repository 12/13/2017 [id number] Ambulatory [facility] ding:LAB Repository PAYERS PAYERS ENCOUNTER GUARANTOR PAYER SUBSCRIBER SOURCE 11/18/2018 LOVE [id number] Insurance:GRETCHEN GREGORYB: [facility] JASON, MEDICARE PPOPolicy [id number] [facility] [address]Vjv: Number: Repository [id number] (HP) Date:5777-76-38GP [address] [address]BP: 11/18/2018 Secondary LOVE E [facility] Insurance:MCLAREN THUMB REGIONB: [facility] Number: [id number] Hospital [id number] Repository Date:5809-05-94RIK SERVICE [id number] [place], [place] [address]N[place]: [phone] X2003 11/18/2018 Tertiary NOT GIVENUNK [place] Insurance:SELF PAY [facility] Number: Effective Repository Date:2018-11-12 11/10/2018 LOVE E Primary LOVE E [facility] [id number] Insurance:HUMANA LINEBAUGHDOB: [facility] ALEXANDER GOMEZ, MEDICARE PPOPolicy [id number] McKinley [facility] Health Care Services [address]Wnq: Number: Repository [id number] (HP) Date:9163-90-34NB [address] [address]SI: 11/10/2018 Secondary LOVE E [place] Insurance:MCLAREN THUMB REGIONB: [facility] Number: [id number] Hospital [id number] Repository Date:6535-35-15TET SERVICE [id number] [place], [place] [address]FH: [phone] X2003 11/10/2018 Tertiary NOT GIVENUNK [place] Insurance:SELF PAY [facility] Number: Effective Repository Date:2018-10-27 10/24/2018 LOVE E Primary LOVE E [facility] [id number] Insurance:HUMANA LINEBAUGHDOB: [facility] ALEXANDER GOMEZ, MEDICARE PPOPolicy [id number] McKinley Christian Health Care Services [address]Mfz: Number: Repository [id number] (HP) Date:6106-99-75YB [address] [address]GT: 10/24/2018 Secondary LOVE E [place] Insurance:[place] MEDICAL LINEBAUGHDOB: [facility] Number: [id number] Hospital [id number] Repository Date:7606-77-74POI SERVICE [id number] [place], [place] [address]DB: [phone] X2003 10/24/2018 Tertiary NOT GIVENUNK [place] Insurance:SELF PAY [facility] Number: Effective Repository Date:2018-10-16 10/17/2018 LOVE E Primary LOVE E [place] [id number] Insurance:HUMANA LINEBAUGHDOB: [facility] ALEXANDER GOMEZ, MEDICARE PPOPolicy [id number] McKinley [facility] Care Services [address]Dob: Number: Repository [id number] (HP) Date:1819-33-05BN [address] [address]NP: 10/17/2018 Secondary LOVE E [place] Insurance:[place] MEDICAL LINEBAUGHDOB: [facility] Number: [id number] Hospital [id number] Repository Date:0122-31-47UEH SERVICE [id number] [place], [place] [address]KA: [phone] X2003 10/17/2018 Tertiary NOT GIVENUNK [place] Insurance:SELF PAY [facility] Number: Effective Repository Date:2018-10-17 10/17/2018 LOVE E Primary LOVE E [place] [id number] Insurance:HUMANA LINEBAUGHDOB: [facility] ALEXANDER GOMEZ, MEDICARE PPOPolicy [id number] McKinley [facility] [address]Mwk: Number: Repository [id number] (HP) Date:6676-19-89LN [address] [place] [address]SZ: 10/17/2018 Secondary LOVE E [place] Insurance:MT MEDICAL LINEBAUGHDOB: [facility] Number: [id number] Hospital [id number] Repository Date:1493-48-01IMS SERVICE [id number] [place], [place] [address]XZ: [phone] X2003 10/17/2018 Tertiary NOT GIVENUNK [place] Insurance:SELF PAY [facility] Number: Effective Repository Date:2018-10-17 10/16/2018 LOVE E Primary LOVE [place] [id number] Insurance:HUMANA LINEBAUGHDOB: [facility] PartnersEl[facility]iraPLA[facility] CENTEREMMANUEL, MEDICARE PPOPolicy [id number] McKinley Christian Health Care Services [address]Bef: Number: Repository [id number] () Date:8132-74-40QV [address] [address]IU: 10/16/2018 Secondary LOVE Plasencia [facility] Insurance:[place] MEDICAL LINEBAUGHDOB: [facility] Number: [id number] Hospital [id number] Repository Date:5069-20-46KUK SERVICE [id number] [place], [place] [address]SO: [phone] X2003 10/16/2018 Tertiary NOT GIVENUNK [facility] Insurance:SELF PAY [facility] Number: Effective Repository Date:2018-10-16 10/13/2018 LOVE E Primary LOVE Velarde LINEBAUGHDOB: Insurance:HUMANA LINEBAUGHDOB: Health System CHOICE PPO PT APolicy [id number] Repository [facility]ER [facility]EL, Number: Effective [place] Date:2018-08-28 - [address]Tza: 1571-99-12Zyas Name:[facility] BOX ()Tel: (466) [address] [place] [address] [phone] (HW) [phone]: 10/13/2018 Secondary LOVE Velarde Insurance:HUMANA LINEBAUGHDOB: Health System CHOICE PPO PT BPolicy [id number] Repository Number: Effective Date:2018-08-286832-92-39Eudu Name:BP BERTHA [address] [place] [address]LF: 10/10/2018 LOVE E Primary LOVE E [place] [id number] Insurance:HUMANA LINEBAUGHDOB: [facility] ALEXANDER GOMEZ, MEDICARE PPOPolicy [id number] Hospital [place] [address]Vcx: Number: Repository [id number] (HP) Date:6482-53-17RE [address] [address]NA: 10/10/2018 Secondary LOVE E [place] Insurance:MT MEDICAL LINEBAUGHDOB: [facility] Number: [id number] Hospital [id number] Repository Date:4752-13-94JQJ SERVICE [id number] [place], [place] [address]DY: [phone] X2003 10/10/2018 Tertiary NOT GIVENUNK [place] Insurance:SELF PAY [facility] Number: Effective Repository Date:2018-10-10 10/08/2018 LOVE E Primary LOVE E [place] [id number] Insurance:HUMANA LINEBAUGHDOB: [facility] ALEXANDER GOMEZ, MEDICARE PPOPolicy [id number] [facility] [place] [address]Zpp: Number: Repository [id number] (HP) Date:7111-36-10GN [address] [address]XQ: 10/08/2018 Secondary LOVE E [place] Insurance:MT MEDICAL LINEBAUGHDOB: [facility] Number: [id number] Hospital [id number] Repository Date:6634-53-08IBZ SERVICE [id number] [place], [place] [address]OC: [phone] X2003 10/08/2018 Tertiary NOT GIVENUNK [place] Insurance:SELF PAY [facility] Number: Effective Repository Date:2018-10-08 10/07/2018 LOVE E Primary LOVE E [place] [id number] Insurance:HUMANA LINEBAUGHDOB: [facility] ALEXANDER GMOEZ, MEDICARE [facility] [id number] [facility] [place] [address]Oje: Number: Repository [id number] (HP) Date:3441-16-79FK[address] [address]DV: 10/07/2018 Secondary LOVE [place] Insurance:MT MEDICAL LINEBAUGHDOB: [facility] Number: [id number] Hospital [id number] Repository Date:6851-23-51RPF SERVICE [id number] [place], [place] [address]SW: [phone] X2003 10/07/2018 Tertiary NOT GIVENUNK [place] Insurance:SELF PAY [facility] Number: Effective Repository Date:2018-10-07 10/03/2018 LOVE E Primary LOVE [place] [id number] Insurance:HUMANA LINEBAUGHDOB: [facility] JASON, MEDICARE PPOPolicy [id number] McKinley [facility] Care Services [address]Vsg: Number: Repository [id number] (HP) Date:9944-49-90OK[address] [address]HQ: 10/03/2018 Secondary NOT GIVENUNK [place] Insurance:SELF PAY [facility] Number: Effective Repository Date:2018-10-03 10/02/2018 LOVE E Primary LOVE Rmoe [id number] Insurance:HUMANA LINEBAUGHDOB: [facility] SADIDANIEL, MEDICARE PPOPolicy [id number] Hospital [place] [address]Vvd: Number: Repository [id number] (HP) Date:0563-44-98IA[address] [address]UP: 10/02/2018 Secondary NOT GIVENUNK [place] Insurance:SELF PAY [facility] Number: Effective Repository Date:2018-10-02 09/21/2018 LOVE E Primary LOVE Velarde LINEBAUGHDOB: Insurance:HUMANA LINEBAUGHDOB: Health System CHOICE PPO PT APolicy [id number] Repository ALEXANDER GOMEZ, Number: Effective [place] Date:2018-08-28 - [address]Avq: [id number] Name:[facility] BOX (HP)Tel: (176) [address] [place] [address] [phone] (UJ) [phone]: 09/21/2018 Secondary LOVE Velarde Insurance:HUMANA LINEBAUGHDOB: Health System CHOICE PPO [facility] [id number] Repository Number: Effective Date:2018-08-2820235490-20-21Xfkx Name:[facility] [address] [place] [address]JG: 07/15/2018 LOVE E Primary LOVE E [place] [id number] Insurance:HUMANA LINEBAUGHDOB: [facility], MEDICARE PPOPolicy [id number] McKinley [facility] Health Care Services [address]Zxl: Number: Repository [id number] (HP) Date:2273-24-80VI[address] [address]KO: 07/15/2018 Secondary NOT GIVENUNK [place] Insurance:SELF PAY [facility] Number: Effective Repository Date:2018-07-15 12/18/2017 LOVE E Primary LOVE E [place] [id number] Insurance:HUMANA LINEBAUGHDOB: [facility], MEDICARE PPOPolicy [id number] Hospital [place] [address]Lsx: Number: Repository [id number] (HP) Date:0437-45-43ER[address] [address]GV: 12/18/2017 Secondary NOT GIVENUNK [place] Insurance:SELF PAY [facility] Number: Effective Repository Date:2017-10-03 12/14/2017 Love E Primary Love E [place] [id number] Insurance:HUMANA LinebaughDOB: [facility], MEDICARE PPOPolicy [id number] [address]Eis: Number: Repository [id number] (HP) Date:[id number] [id number]: 12/14/2017 Secondary NOT GIVENUNK Wild Insurance:SELF PAY [facility] Number: Effective Repository Date:2017-12-14 12/13/2017 Love [employer] [place] [id number] Insurance:HUMANA [place]ñaDOB: [place] [address], MEDICARE PPOPoly [id number] [facility] [address]Tho: Number: Repository [id number] (HP) Date:[id number] [address]PI: 12/13/2017 Secondary NOT GIVENUNK Wild Insurance:SELF PAY [facility] Number: Effective Repository Date:2017-12-13
== END ==
PROVIDERS: Family Provider Family Medicine; PCP Family Medicine
DX: Z79.01 Long term (current) use of 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 (principal)
CPT/HCPCS: 85610

== ENCOUNTER → 2018-10-10 10:39 | Outpatient (CLI) | payer MEDICARE, OTHER, SELFPAY ==
[2018-10-03 14:23] VITALS: BMI 70.0
[2018-10-10 11:06] LABS: International Normalized Ratio 1.4; Prothrombin Time (Protime)PT. 17.6 SECONDS (11.7-14.9)
--- OUTSIDE RECORDS SUMMARY | 2018-11-26 01:41 | XMS RPT_ITS ---
:1945 Author Organization [facility] Support Name Relationship Address Phone CHAPIS PHELAN Unavailable [address] + [place] [address] KAUFMAN GHASSAN Unavailable [address] + [place] [address] R Unavailable Unavailable Unavailable LINEBAMARYJANE CHAPSI Unavailable [address] + [place] [address] GHASSAN KAUFMAN Unavailable [address] + [place] [address] R Unavailable Unavailable Unavailable LINEBAUGH, CHAPIS Unavailable [address] + [place] [address] GHASSAN KAUFMAN Unavailable [address] + [place] [address] R Unavailable Unavailable Unavailable LINEBAUGH, CHAPIS Unavailable [address] + [place] [address] GHASSAN KAUFMAN Unavailable [address] + [place] [address] R Unavailable Unavailable Unavailable LINEBAUGH, CHAPIS Unavailable [address] + [place] [address] GHASSAN KAUFMAN Unavailable [address] + [place] [address] R Unavailable Unavailable Unavailable LINEBAUGH, CHAPIS Unavailable [address] + [place] [address] GHASSAN KAUFMAN Unavailable [address] + [place] [address] R Unavailable Unavailable Unavailable LINEBAUGH, CHAPIS Unavailable [address] + [place] [address] LINEBAUGH, CHAPIS Unavailable [address] + [place] [address] GHASSAN KAUFMAN Unavailable [address] + [place] [address] R Unavailable Unavailable Unavailable LINEBAUGH, CHAPIS Unavailable [address] + [place] [address] GHASSAN KAUFMAN Unavailable [address] + [place] [address] R Unavailable Unavailable Unavailable LINEBAUGH, CHAPIS Unavailable [address] + [place] [address] GHASSAN KAUFMAN Unavailable [address] + [place] [address] R Unavailable Unavailable Unavailable LINEBAUGH, CHAPIS Unavailable [address] + [place] [address] GHASSAN KAUFMAN Unavailable [address] + [place] [address] R Unavailable Unavailable Unavailable LINEBAUGH, CHAPIS Unavailable [address] + [place] [address] R Unavailable Unavailable Unavailable LINEBAUGH, CHAPIS Unavailable [address] + [place] [address] LINEBAUGH, CHAPIS Unavailable [address] + [place] [address] R Unavailable Unavailable Unavailable LINEBAUGH, CHAPIS Unavailable [address] + [place] [address] R Unavailable Unavailable Unavailable R Unavailable Unavailable Unavailable LINEBAUGH, CHAPIS Unavailable [address] + [place] [address] R Unavailable Unavailable Unavailable KATHE WILLINGHAM Unavailable / + [place], [place] / LINEBAUGH, CHAPIS Unavailable [address] + [place] [address] R Unavailable Unavailable Unavailable KATHE WILLINGHAM Unavailable / + [place], [place] / Care Team Providers Name Role [...] Referring Unavailable Lorna Salinas Attending Unavailable Lo, Granville Attending Unavailable Tara, Akira Primary Care Unavailable Lo, Granville Referring Unavailable Lo, Granville Attending Unavailable Tara, Akira Referring Unavailable Alma Delia Aquino Attending Unavailable Bib Antonia Referring Unavailable Tara, Akira Primary Care Unavailable Lo, Hemant Attending Unavailable Lo, Granville Referring Unavailable Tara, Akira Primary Care Unavailable Ai Sheehan Attending Unavailable Lo, Hemant Attending Unavailable Tara, Akira Referring Unavailable ADRIANA BUITRAGO Attending Unavailable Tara, Akira Primary Care Unavailable Lo, Granville Attending Unavailable Lo, Hemant Referring Unavailable Tara, Akira Primary Care Unavailable Lo, Hemant Attending Unavailable Lo, Hemant Referring Unavailable Tara, Akira Primary Care Unavailable Lo, Granville Attending Unavailable Lo, Hemant Referring Unavailable Tara, Akira Primary Care Unavailable Tara, Akira Primary Care Unavailable Vasu Zhu Attending Unavailable Lo, Granville Referring Unavailable ADRIANA BUITRAGO Consulting Unavailable PROBLEMS PROBLEMS DATE TYPE CONDITION / CODE ATTENDING STATUS SOURCE 11/18/2018 Unknown Z95.2 - Presence of Lo, Granville Active [place] prosthetic heart Community valve / Hospital Z95.2(ICD-10) Repository 11/10/2018 Unknown 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, 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 Community 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 / Hospital Z79.01(ICD-10) Repository 10/17/2018 Unknown E78.5 - Lo, Hemant Active [facility] Hyperlipidemia, Community unspecified / Hospital E78.5(ICD-10) Repository 10/17/2018 Unknown I10 - Essential Lo, Granville Active [facility] (primary) Community hypertension / Hospital I10(ICD-10) Repository 10/17/2018 Unknown I25.10 - Lo, Hemant Active [facility] Atherosclerotic Community 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[facility] [place] coronary Repository artery without angina pectoris / I25.10(ICD-10) 10/17/2018 Unknown I34.0 - Nonrheumatic Lo, Granville Active [facility] mitral (valve) Community insufficiency / Hospital I34.0(ICD-10) Repository 10/17/2018 Unknown I50.33 - Acute on Lo, Hemant Active [facility] chronic diastolic Community (congestive) heart Hospital failure / Repository I50.33(ICD-10) 10/17/2018 Unknown 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, 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 / Hospital Z95.3(ICD-10) Repository 10/17/2018 Unknown Z95.5 - Presence of Lo, Hemant Active [facility] coronary angioplasty Community implant and graft / Hospital Z95.5(ICD-10) Repository 10/17/2018 Unknown E78.00 - Pure Lo, Hemant Active [facility] hypercholesterolemia Community , unspecified / Hospital E78.00(ICD-10) Repository 10/14/2018 Unknown T82.897A - Other Audra, Active [facility] complication of Hospital cardiac prosthetic Repository devices, implants and grafts, initial encounter / T82.897A(ICD-10) 09/21/2018 Admitting Unknown / MARIANO MORENO Active [facility] Diagnosis UNK(Unknown) Health System Repository PROCEDURES PROCEDURES No Procedure Records FoundRESULTS RESULTS PROTHROMBIN TIME W/INR Collected: 11/10/2018 Status: F Source: [place] 10:48 AM [facility] REPOSITORY TYPE CODE TESTS RESULT OUT OF RANGE REFERENCE UNITS LAB L300.4150 11.7-14.9 SECONDS High PROTIME 21.0 LAB L300.4200 Normal INR 1.8 Performed By: #### L300.3900 #### [facility] [address] [place], [place], [address] PROTHROMBIN TIME W/INR Collected: 10/31/2018 Status: F Source: [place] 10:45 AM [facility] REPOSITORY TYPE CODE TESTS RESULT OUT OF RANGE REFERENCE UNITS LAB L300.4150 11.7-14.9 SECONDS High PROTIME 18.1 LAB L300.4200 Normal INR 1.5 Performed By: #### L300.3900 #### [facility] [address] [place], [address] PROTHROMBIN TIME W/INR Collected: 10/24/2018 Status: F Source: [place] 11:25 AM [facility] REPOSITORY TYPE CODE TESTS RESULT OUT OF RANGE REFERENCE UNITS LAB L300.4150 11.7-14.9 SECONDS High PROTIME 19.5 LAB L300.4200 Normal INR 1.6 Performed By: #### L300.3900 #### [facility] [place], [address] DISCHARGE SUMMARY Observed: 10/17/2018 Status: F Source: [place] 12:22 PM [facility]ALTH SYSTEM REPOSITORY Patient: LOVE [...] for mitral regurgitation. Was discharged to [facility] on POD #5. Plavix was stopped due to being on Coumadin for 3 months for CVA/thrombus prophylaxis. Discharged with [facility] to have INR checks M/W/F and called to [facility] office. . Procedures Performed PROCEDURES Mitral valve operation ([id number]) performed by Mariano Moreno MD on 09/26/2018 [...] after mealsDx: Insulin-dependant diabetes Miscellaneous Medication (Diabetic [place]) See Instructions Diabetic [place] To administer insulin after each meal and [...] 10/01/2018 09:19 COMMENTS: Future refills from your PCP/Prop Drawer spironolactone (spironolactone 25 mg oral tablet) 2 [...] Specialty: Thoracic Surg [facility] [address] [facility] [address] (1) Date: 10/13/18 09:15 am Comment: Please complete labs and CXR prior to your appointment Provider: Hemant Blanchard MD Specialty: Address: [address] [place] [address] Date: 10/17/18 09:30 am Comment: Follow up with your primary brusher warp. Your appointment is scheduled for 9:30am. Bring a list of your current medications and hospital discharge paperwork. Provider: PCP Unknown Physician Specialty: Family Practice Address: Date: Follow-up as needed Patient Education Given Mitral Valve Replacement, Heart Failure, Snwi-lr-Xzqz, [place] - Cardiac Surgery Discharge Instructions (CUSTOM), Low-Sodium Eating Plan, Incision Care PROTHROMBIN TIME W/INR Collected: 10/17/2018 Status: F Source: [place] 10:39 AM [facility] REPOSITORY TYPE CODE TESTS RESULT OUT OF RANGE REFERENCE UNITS LAB L300.4150 11.7-14.9 SECONDS High PROTIME 18.2 LAB L300.4200 Normal INR 1.5 Performed By: #### L300.3900 #### [facility] [address] [place], [address] CARDIOLOGY VISIT Observed: 10/17/2018 Status: F Source: [place] REPORT 10:11 AM [facility] REPOSITORY [facility] [address] [place] [address] OFFICE VISIT Date of Service: 10/17/18 MR#: [id number] Acct: [id number] Name: LOVE PHELAN Rep #: [id number] : 1945 Provider: Hemant Blanchard MD Age/Sex: 73/M Location: [facility] Status: Signed HPI HPI Chief Complaint: [...] hypertension and hyperlipidemia. He apparently was in [place] a few weeks ago and developed severe [...] ft 11 in Intake Visit Reasons: SANDRA Id Syd 12-5 post stent Allergies doxycycline Allergy [...] PO DAILY 10/17/18 [History Confirmed 10/17/18] FOR[facility]LY [facility], [facility]–1983 Medical History Acute on chronic diastolic (congestive) heart failure (Chronic) Non-rheumatic mitral regurgitation (Chronic) Atherosclerotic 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[place] coronary artery without angina pectoris (Chronic) Hyperlipidemia [...] Orders: Referrals: 2. 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) Coding Level of Care Code Off vis,est,level 5 Diagnoses History of mitral valve replacement with bioprosthetic valve Z95.3 Atherosclerotic 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[place] coronary artery without angina pectoris I25.10 Pure hypercholesterolemia E78.00 Hyperlipidemia type: pure hypercholesterolemia Essential (primary) hypertension I10 Coding Level of Care Code Off vis,est,level 5 Diagnoses History of mitral valve replacement with bioprosthetic valve Z95.3 Atherosclerotic 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[place] coronary artery without angina pectoris I25.10 Pure hypercholesterolemia E78.00 Hyperlipidemia type: pure hypercholesterolemia Essential (primary) hypertension I10 10/17/18 1011 <Electronically signed by Hemant Blanchard MD> Date Hemant Blanchard MD Cosigner Signature: Date (if applicable) CC: Akira Pacheco MD 12 LEAD EKG PERFORMED Observed: 10/17/2018 Status: F Source: [facility] 9:24 AM [facility] REPOSITORY [address] [address] 12 Lead EKG performed by [facility] 10/17/18 0924 MR#: [id number] Acct: [id number] Name: LOVE PHELAN Rep #: [id number] : 1945 73 From: Hemant Blanchard MD Attending Dr: Hemant Blanchard MD Status: DEP AMB Ordering Dr: Hemant Blanchard MD Date: 10/17/18 Location: [facility] Sex: M C Admitted: [facility]/12 Lead EKG performed by [facility] ECG Report Interpretation Sinus Rhythm -RSR(V1) -nondiagnostic. -Left atrial enlargement. BORDERLINEElectronically signed on 11/18/2018 at 13:24 by Hemant Blanchardwood Software Version 8610 11/18/18 1329 Date Hemant Blanchard MD CC: Akira Pacheco MD Date Dictated: 10/17/18923 Date Transcribed: 10/17/18923 Eviscerator: CO Signed PROTHROMBIN TIME Collected: 10/13/2018 Status: F Source: [facility] 12:48 PM [facility] SYSTEM REPOSITORY TYPE CODE TESTS RESULT OUT OF RANGE REFERENCE UNITS LAB 84803-7([place]) Normal INR 1.41 Result Comment: The recommended therapeutic INR range for most cardiac indications is 2.0-3.0. For high intensity therapy(ie.mechanical heart valves), the recommended range is 2.5-3.5. LAB 5902-2(LOINC) 9.3-12.4 Sec Prothrombin High Time (PT) 16.5 Performed By: #### 5902-2 #### [facility] PROTHROMBIN TIME W/INR Collected: 10/10/2018 Status: F Source: [place] 10:00 AM [facility] REPOSITORY TYPE CODE TESTS RESULT OUT OF RANGE REFERENCE UNITS LAB L300.4150 11.7-14.9 SECONDS High PROTIME 17.6 LAB L300.4200 Normal INR 1.4 Performed By: #### L300.3900 #### [facility] [address] [place], [place], [address] PROTHROMBIN TIME W/INR Collected: 10/08/2018 Status: F Source: [place] 10:00 AM [facility] REPOSITORY TYPE CODE TESTS RESULT OUT OF RANGE REFERENCE UNITS LAB L300.4150 11.7-14.9 SECONDS High PROTIME 17.4 LAB L300.4200 Normal INR 1.4 Performed By: #### L300.3900 #### [facility] [address] [place], [place], [address] CHEST PA AND LATERAL Observed: 10/07/2018 Status: F Source: [place] 2:18 PM [facility] REPOSITORY [facility] Imaging Services [address] [place] [address] Chest PA and Lateral MR#: [id number] Acct: [id number] Name: LOVE PHELAN Rep #: [id number] : 1945 M 73 From: Bahman Carias MD PCP: Akira Pacheco MD Status: REG CLI Study: Chest PA and Lateral Date of Exam: 10/07/18 Exam# [id number] Ordering Dr: MARIANO MORENO STUDY: X-RAY CHEST [...] , CC: MARIANO MORENO; Akira Pacheco MD Eviscerator: Signed CBC-COMPLETE BLOOD CNT Collected: 10/07/2018 Status: F Source: [place] NO DIFF 2:07 PM [facility] REPOSITORY TYPE CODE TESTS RESULT OUT OF [...] MPV 10.8 Performed By: #### L100.0500 #### [facility] [address] [facility] [place], [address] BASIC METABOLIC Collected: 10/07/2018 Status: F Source: [place] PROFILE (BMP) 2:07 PM [facility] REPOSITORY TYPE CODE TESTS RESULT OUT OF [...] GAP 7 Performed By: #### L500.2500 #### [facility] [address] [place], [address] EMERGENCY DEPARTMENT Observed: 10/03/2018 Status: F Source: [place] SUMMARY 5:53 PM [facility] REPOSITORY [facility] Medical Records Department [address] [place] [address] Emergency Department Summary 10/03/18 1602 MR#: [id number] Acct: [id number] Name: LOVE PHELAN Rep #: [id number] : 1945 73 From: Vasu Zhu MD PCP: Akira Pacheco MD Status: DEP ER - ER Visit Summary Date of Service: 10/03/18 Chief Complaint: Drainage from wound History of Present Illness: The patient is a [address] Blanchard and Dr. Akira Pacheco. On September 26 the patient had a mitral valve replacement by Dr. Moreno at [facility]. He reports he was discharged from the [...] Subtherapeutic INR. This note was generated with [employer] dictation software. It may contain incorrect words, [...] problems, contact your Primary Care Provider. Call [facility] ([phone]) or report to the closest Emergency Room. Call 911 if necessary. 10/03/18 6291 <Electronically signed by Vasu Zhu MD> Date Vasu Zhu MD Cosigner Signature (If Indicated): Date CC: Akira Pacheco MD CBC W/DIFF, AUTOMATED Collected: 10/03/2018 Status: F Source: [place] 3:15 PM [facility] REPOSITORY TYPE CODE TESTS RESULT OUT OF [...] Lymph 0.96 Performed By: #### L100.0100 #### [facility] [address] [place], [place], [address] PROTHROMBIN TIME W/INR Collected: 10/03/2018 Status: F Source: [place] 3:15 PM [facility] REPOSITORY TYPE CODE TESTS RESULT OUT OF RANGE REFERENCE UNITS LAB L300.4150 11.7-14.9 SECONDS High PROTIME 16.8 LAB L300.4200 Normal INR 1.4 Performed By: #### L300.3900 #### [facility] [address] [place], [address] BASIC METABOLIC Collected: 10/03/2018 Status: F Source: [place] PROFILE (BMP) 3:06 PM [facility] REPOSITORY TYPE CODE TESTS RESULT OUT OF [...] GAP 9 Performed By: #### L500.2500 #### [facility] [address] [place], [address] CHEST 1 VIEW Observed: 10/03/2018 Status: F Source: [place] (PORTABLE) 2:50 PM [facility] REPOSITORY [facility] Imaging Services [address] [place] [address] Chest 1 View (Portable) MR#: [id number] Acct: [id number] Name: LOVE PHELAN Rep #: [id number] : 1945 M 73 From: Amarjit Cruz MD PCP: Akira Pacheco MD Status: REG ER Study: Chest 1 View (Portable) Date of Exam: 10/03/18 Exam# [id number] Ordering Dr: Vasu Zhu MD STUDY: X-RAY [...] Amarjit Cruz MD at 15:35 EST Tel [phone], Service support , CC: Vasu Zhu MD; Akira Pacheco MD Eviscerator: Signed PATIENT SUMMARY Observed: 10/01/2018 Status: C Source: [facility] 2:56 PM HEALTH SYSTEM REPOSITORY PATIENT DISCHARGE INSTRUCTIONS If you are having an emergency and are not able to reach your physician, CALL 911 or go to the nearest emergency room and take this document with you. Jed Velarde [facility] 10/01/18 14:56 [address] [place]. [address] PATIENT INFORMATION Name: LOVE PHELAN Address: [address] [place] [address] Age: 73 Years Phone: [phone] : 1945 12:00 MRN: [id number] Sex: Male Race: White Ethnicity: Not Hispan/Lat Admitted From: [facility] Medical Service: Thoracic Surgery Nurse Unit/Bed: ([place]) [facility] [id number] Admit Date: 09/21/2018 05:02 PCP: Physician, PCP [...] Thoracic Surg [address] [facility] [address] (1) 10/13/18 09:15 am Comment: Please complete labs and CXR prior to your appointment Provider: Specialty: Address: Date: Hemant Blanchard MD [address] [facility] [address] 10/17/18 09:30 am Comment: Follow up with your primary brusher warp. Your appointment is scheduled for 9:30am. Bring [...] doses are changed, or new medications (including wsjs-vlw-dpwhpdl products) are added. Ask your doctor if [...] Days. Refills: 1., Future refills from your PCP/Prop Drawer Miscellaneous Medication (Diabetic [place]) To administer insulin after each meal and [...] Days. Refills: 1., Future refills from your PCP/Prop Drawer Comment Miscellaneous Medication (Diabetic [place]) To administer insulin after each meal and [...] HF zone sheet and newsletter. Title-Video/Print Material: [facility] Title-Video/Print Material: Open heart DVD [...] not start or stop any medications or cest-bfs-yaijqib medications unless your doctor or pharmacist tells [...] doctor who is following your blood levels. 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 Important information about accessing your health information through the [facility] patient portal If you initiated the self-registration process for [facility] during your stay, please check your personal email for an invitation to enroll in [facility] and complete the steps outlined in the email. If you would prefer to enroll while in the hospital, ask a member of your care team. We would be happy to assist you. If you have already enrolled in [facility], go to [email or web address] to login and access your health information. Thank you for choosing [facility]. PATIENT EDUCATION Incision Care An incision is [...] 05/03/2006 Document Revised: 11/04/2015 Document Reviewed: 12/08/2014 [employer] Patient Education ?2016 [employer] Cardiac Surgery Discharge Instructions 1. Diet [...] to call your Primary Care Physician or Prop Drawer: ? If you have diabetes and your [...] including vitamins, herbs, eye drops, creams, and wuei-vrw-facahxo medicines. ?Previous problems you or members of [...] 02/14/2006 Document Revised: 11/04/2015 Document Reviewed: 03/17/2014 [employer] Patient Education ?2016 [employer] Low-Sodium Eating Plan Sodium raises blood [...] vegetable juices. Frozen vegetables in sauces. Salted Bengali fries. Olives. Pickles. Relishes. Sauerkraut. Salsa. Meat [...] Johnson fat. Other? Potato and tortilla chips. Rye chips and puffs. Salted popcorn and pretzels. [...] 04/05/2003 Document Revised: 11/04/2015 Document Reviewed: 08/18/2014 [employer] Interactive Patient Education ?2015 [employer] Heart Failure Heart failure means your [...] Reviewed: 11/30/2013 Elsevier Interactive Patient Education ?2016 [employer] What You Should Know About Opioid Medicine What is an Opioid? Opioid medications are used to treat moderate to severe pain. Morphine, Oxycodone (Percocet?), Hydromorphone (Dilaudid?) and Hydrocodone ([place]?) are some types of opioids. How do Opioids work? Opioids reduce the pain signals sent to your brain, which decrease your feelings of pain. Opioids may reduce your pain, but may not take all the pain away. What are the risks from taking opioids? Prescription opioids carry serious risks of physical dependence, addiction and overdose, with local intermodal truck driver use. If you take too much of [...] CLINICAL SUMMARY Observed: 10/01/2018 Status: C Source: [facility] 2:56 PM HEALTH SYSTEM REPOSITORY CLINICAL SUMMARY Please take this summary document to your follow up appointments. [facility] 10/01/18 14:56 [address] [place]. [address] PATIENT INFORMATION Name: LOVE PHELAN Address: [address] [facility] [address] Age: 73 Years Phone: [phone] : 1945 12:00 MRN: ([id number] Sex: Male Race: White Ethnicity: Not Hispan/Lat Admitted From: [facility] Medical Service: Thoracic Surgery Nurse Unit/Bed: ([place]) [facility] [id number] Admit Date: 09/21/2018 05:02 PCP: Physician, PCP [...] Georges A - Nephrology Berry AMBRIZ , [place] - Thoracic Surg Stephy AMBRIZ, Nica Dumont [...] Days. Refills: 1., Future refills from your PCP/Prop Drawer Miscellaneous Medication (Diabetic [place]) To administer insulin after each meal and [...] Days. Refills: 1., Future refills from your PCP/Prop Drawer Comment Miscellaneous Medication (Diabetic [place]) To administer insulin after each meal and [...] for Adults HYDROcodone/Acetaminophen 5 mg/325 mg Tab ([place] 5 GEq) ([place] 5 mg/325 mg*) 2 Tab, PO, Tab, [...] site access HYDROcodone/Acetaminophen 5 mg/325 mg Tab ([place] 5 GEq) ([place] 5 mg/325 mg) 1 Tab, PO, Tab, [...] or greater than 180 mmHg; prolongation of [place] interval + QRS complex * Individual cases [...] Address: Date: Mariano Moreno MD Thoracic Surg [address] [place] [address] [address] [facility] [address] (1) 10/13/18 09:15 am Comment: Please complete labs and CXR prior to your appointment Provider: Specialty: Address: Date: Hemant Blanchard MD [address] [place] [address] 10/17/18 09:30 am Comment: Follow up with your primary brusher warp. Your appointment is scheduled for 9:30am. Bring [...] tomorrow 10/02/18 and call to CTS office [phone]. Will then have INR checks every Saturday, Saturday, and Saturday. Dr. Moreno office to follow levels [phone]. Transfer Code Status: Full Resuscitation. Transfer Consults: [...] not start or stop any medications or rnbh-tpw-afheffe medications unless your doctor or pharmacist tells [...] doctor who is following your blood levels. 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 Dispo: Discharge to home today with [facility]. INR to be drawn tomorrow. Discussed [...] PROGRESS NOTES Observed: 10/01/2018 Status: C Source: [place] 10:34 AM HEALTH SYSTEM REPOSITORY Patient: LOVE [...] underlying CAD. -Chronic ischemic heart disease; s/p ND and multivessel stenting 2009. He had negative [...] planning. -Pt plans to f/u with primary brusher warp in [place], [place], Dr. Blanchard. Marcus Barrera CNP I personally saw and evaluated the patient. Chart, medications, and laboratories reviewed. Agree with assessment and plan above by Christi Barrera CNP. OK for discharge from a cardiac standpoint. Continue aspirin, statin, beta-brisa. Alexander Alejandro MD [facility] 10/01/2018 12:08 Labs - Last 36 hours [...] (10/0154) 44 mL/min (09/29 06:07) GFR Est. Betra >60 mL/min (10/01 05:54) 53 mL/min (09/29 [...] 09/29/18 21:08:00 HYDROcodone/Acetaminophen 5 mg/325 mg Tab ([place] 5 GEq) 2 Tab, PO, Tab, Q4h, [...] Not Given HYDROcodone/Acetaminophen 5 mg/325 mg Tab ([place] 5 GEq) 1 Tab, PO, Tab, Q4h, [...] PROGRESS NOTES Observed: 10/01/2018 Status: F Source: [employer] 9:38 AM HEALTH SYSTEM REPOSITORY Patient: LOVE PHELAN MRN: [id number] Age: 73 years Sex: Male : 1945 [...] discharged from renal standpoint. Seun Keyes MD [facility]. Pager: [phone] Subjective seen this pm, feels well, denies [...] by Patient Care Services. Performed By: #### 7921-8 #### [facility] PROGRESS NOTES Observed: 10/01/2018 Status: F Source: [facility] [place] 8:01 AM HEALTH SYSTEM REPOSITORY Patient: LOVE PHELAN MRN: -[id number] Age: 73 years Sex: Male : 1945 Associated Diagnoses: None Author: Cristhian Hong DO Assessment Diagnosis/Impression/Plan: Medicine Sign-on Mr Love Phelan is a 73-year-old male with past medical history to include CAD status post stents, hypertension, hyperlipidemia, insulin-dependent diabetes, newly diagnosed CKD stage III, who p resents to [facility] 09/21/2018 for dyspnea Interval workup notable for [...] 0.4 mg, Subl, Q5min, PRN: See Comments [place] 5 mg/325 mg*: 2 Tab, PO, Q4h, PRN: Pain - Moderate [place] 5 mg/325 m Tab, PO, Q4h, PRN: [...] 2.5 mg, PO, Daily-Warf Prescriptions Prescribed Diabetic [place]: See Instructions, To administer insulin after each [...] PROGRESS NOTES Observed: 10/01/2018 Status: F Source: [employer] 7:36 AM HEALTH SYSTEM REPOSITORY Patient: LOVE PHELAN MRN: (FET)-[id number] Age: 73 years Sex: Male : 1945 [...] GLUCOSE POCT Collected: 10/01/2018 Status: F Source: [employer] (UPLOADED) 6:21 AM HEALTH SYSTEM REPOSITORY TYPE CODE TESTS RESULT OUT OF REFERENCE UNITS RANGE LAB 2340-8(LOIN 70-110 mg/dL C) High Glucose 199 POCT-LAB Result Comment: Treatment ranges and critical values established by Patient Care Services. All follow-up actions were taken by Patient Care Services. Performed By: #### 2430-8 #### [facility] POINT OF CARE CBC WITH DIFFERENTIAL Collected: 10/01/2018 Status: F Source: [employer] 5:54 AM HEALTH SYSTEM REPOSITORY TYPE CODE TESTS RESULT OUT OF REFERENCE UNITS RANGE LAB 75229-9(LO 39.0-49.0 % INC) Low Hematocrit 28.8 LAB 58522-2(LO 142-424 thou/mcL INC) Normal Platelet Count 154 LAB 42640-1(LO 0.0-12.0 % INC) Normal Monocyte 9.2 LAB 711-2(LOIN 0.00-0.70 thou/mcL C) Normal Eosinophil 0.10 Absolute LAB 34946-4(LO 11.0-14.8 % INC) RDW Normal 14.7 LAB 40300-4(LO 0.0-2.0 % INC) Normal Basophil 0.8 LAB 742-7(LOIN 0.00-0.90 thou/mcL C) Normal Monocyte 0.50 Absolute LAB 718-7(LOIN 13.5-17.5 gm/dL C) Low Hemoglobin 9.6 LAB 31934-0(LO 22.0-44.0 % INC) Low Lymphocyte 19.4 LAB 731-0(LOIN 1.00-4.80 thou/mcL C) Normal Lymphocyte 1.00 Absolute LAB 10188-2(LO 32.0-36.0 gm/dL INC) MCHC Normal 33.4 LAB 10586-7(LO 4.6-10.2 thou/mcL INC) WBC Normal Count 5.4 LAB 63614-2(LO 0.0-7.0 % INC) Normal Eosinophil 2.7 LAB 97689-4(LO 40.0-70.0 % INC) Normal Neutrophil 67.9 LAB 84276-2(LO 27.0-34.0 Picograms INC) MCH Normal 27.9 LAB 751-8(LOIN 1.80-7.70 thou/mcL C) Normal Neutrophil 3.70 Absolute LAB 704-7(LOIN 0.00-0.20 thou/mcL C) Normal Basophil 0.00 Absolute LAB 31830-0(LO 4.30-5.70 million/mcL INC) Low Red Blood Cell 3.45 Count LAB 22085-2(LO 80.0-97.0 FL INC) MCV Normal 83.5 LAB 50220-9(LO 6.2-12.1 FL INC) MPV Normal 8.6 Performed By: #### 53710-3 #### [facility] [address], [place] PROTHROMBIN TIME Collected: 10/01/2018 Status: F Source: [place] 5:54 AM HEALTH SYSTEM REPOSITORY TYPE CODE TESTS RESULT OUT OF RANGE REFERENCE UNITS LAB 5902-2(HANY 9.3-12.4 Sec NC) High Prothrombin Time (PT) 31.8 LAB 15618-2(LO INC) INR Normal 2.68 Result Comment: The recommended therapeutic INR range for most cardiac indications is 2.0-3.0. For high intensity therapy(ie.mechanical heart valves), the recommended range is 2.5-3.5. Performed By: #### 5902-2 #### [facility] [address], [place] GFRAA Collected: 10/01/2018 Status: F Source: [place] 5:54 AM HEALTH SYSTEM REPOSITORY TYPE CODE TESTS RESULT OUT OF RANGE REFERENCE UNITS LAB 44352-0(LO mL/min INC) GFR Normal Estimated >60 Result Comment: The MDRD equation has not been validated for those over 70 years, women, patients with serious co-morbid conditions, or with extremes of body size, muscle mass of nutritional status. Performed By: #### 03211-6, 93237-8b3, 15657-6, 94532-9 #### [facility] [address], [place] GFRBB Collected: 10/01/2018 Status: F Source: [place] 5:54 AM HEALTH SYSTEM REPOSITORY TYPE CODE TESTS RESULT OUT OF RANGE REFERENCE UNITS LAB 17563-0(LO mL/min INC) GFR Normal Estimated Non 55 Performed By: #### 01972-1, 85097-1w6, 24324-2, 99173-6 #### [facility] [address], [place] MAGNESIUM LEVEL Collected: 10/01/2018 Status: F Source: [place] 5:54 AM [facility] SYSTEM REPOSITORY TYPE CODE TESTS RESULT OUT OF RANGE REFERENCE UNITS LAB 07739-1(LO 1.8-2.5 mg/dL INC) Normal Magnesium Level 2.1 Performed By: #### 56849-0, 78597-1a9, 07196-1, 57446-8 #### [facility] [address], [place] BASIC METABOLIC PANEL Collected: 10/01/2018 Status: F Source: [place] 5:54 AM [facility]ALTH SYSTEM REPOSITORY TYPE CODE TESTS RESULT OUT OF RANGE REFERENCE UNITS LAB 15790-1(LO 8-20 mg/dL INC) High BUN 36 LAB 67143-2(LO 6.0-18.0 mMol/L INC) Anion Normal Gap 7.0 LAB 66070-6(LO 8.9-10.3 mg/dL INC) Low Calcium Total 7.9 LAB 2951-2(HANY 136-145 mMol/L NC) Low Sodium Level 134 LAB 2160-0(HANY 0.60-1.30 mg/dL NC) Normal Creatinine 1.29 LAB 2823-3(HANY 3.6-5.1 mMol/L NC) Normal Potassium Level 4.5 LAB 80859-5(LO 70-110 mg/dL INC) High Glucose Level 196 LAB 8-9(HANY 22-32 mMol/L NC) Carbon Normal Dioxide Level 28 LAB 2075-0(HANY 98-107 mMol/L NC) Chloride Normal Level 99 Performed By: #### 39841-7, 83071-5p0, 43457-0, 53119-0 #### [facility] [address], [place] XR CHEST 1 VIEW Observed: 10/01/2018 [...] HEALTH SYSTEM REPOSITORY Patient: LOVE PHELAN MRN: ([facility])-[id number] Age: 73 years Sex: Male : 1945 [...] HEALTH SYSTEM REPOSITORY Patient: LOVE PHELAN MRN: ([facility])-[id number] Age: 73 years Sex: Male : 1945 [...] and spironolactone 25mg daily. Seun Keyes MD [facility], [facility]. Pager: [phone] Subjective seen this pm, feels well, denies [...] HEALTH SYSTEM REPOSITORY Patient: LOVE PHELAN MRN: [facility])-[id number] Age: 73 years Sex: Male : 1945 [...] underlying CAD. -Chronic ischemic heart disease; s/p ND and multivessel stenting 2009. He had negative [...] per primary team Abdoulaye Stanford MD, [facility] Labs - Last 36 hours (Max 2 [...] 09/29/18 21:08:00 HYDROcodone/Acetaminophen 5 mg/325 mg Tab ([place] 5 GEq) 2 Tab, PO, Tab, Q4h, [...] Not Given HYDROcodone/Acetaminophen 5 mg/325 mg Tab ([place] 5 GEq) 1 Tab, PO, Tab, Q4h, [...] HEALTH SYSTEM REPOSITORY Patient: LOVE PHELAN MRN: ([facility])-[id number] Age: 73 years Sex: Male : 1945 Associated Diagnoses: None Author: Cristhian Hong DO Assessment Diagnosis/Impression/Plan: Medicine Sign-on Mr Love Phelan is a 73-year-old male with past medical history to include CAD status post stents, hypertension, hyperlipidemia, insulin-dependent diabetes, newly diagnosed CKD stage III, who p resents to [facility] 09/21/2018 for dyspnea Interval workup notable for [...] 0.4 mg, Subl, Q5min, PRN: See Comments [place] 5 mg/325 mg*: 2 Tab, PO, Q4h, PRN: Pain - Moderate [place] 5 mg/325 m Tab, PO, Q4h, PRN: [...] mcg/ml injectable solution: 1 mL, IM, Month ([id number]), Each, 0 Refill(s) glipiZIDE 10 mg oral [...] PROGRESS NOTES Observed: 09/30/2018 Status: C Source: [place] 8:56 AM [facility] SYSTEM REPOSITORY Patient: LOVE [...] thou/mcL C) Low Lymphocyte 0.90 Absolute LAB 04741-9(LO 4.6-10.2 thou/mcL INC) WBC Normal Count 4.8 LAB 97259-1(LO 40.0-70.0 % INC) Normal Neutrophil 66.4 LAB 68138-0(LO 0.0-12.0 % INC) Normal Monocyte 10.2 LAB 80722-8(LO 32.0-36.0 gm/dL INC) MCHC Normal 33.3 LAB 742-7(LOIN 0.00-0.90 thou/mcL C) Normal Monocyte 0.50 Absolute LAB 96676-1(LO 39.0-49.0 % INC) Low Hematocrit 27.9 LAB 16114-7(LO 142-424 thou/mcL INC) Low Platelet Count 121 LAB 751-8(LOIN 1.80-7.70 thou/mcL C) Normal Neutrophil 3.20 Absolute LAB 16866-6(LO 0.0-2.0 % INC) Normal Basophil 0.8 LAB 84309-9(LO 27.0-34.0 Picograms INC) MCH Normal 28.0 LAB 704-7(LOIN 0.00-0.20 thou/mcL C) Normal Basophil 0.00 Absolute LAB 718-7(LOIN 13.5-17.5 gm/dL C) Low Hemoglobin 9.3 LAB 10374-4(LO 11.0-14.8 % INC) RDW Normal 14.6 LAB 04091-5(LO 22.0-44.0 % INC) Low Lymphocyte 19.5 LAB 46874-8(LO 4.30-5.70 million/mcL INC) Low Red Blood Cell 3.32 Count LAB 94938-7(LO 6.2-12.1 FL INC) MPV Normal 8.9 LAB 11855-2(LO 0.0-7.0 % INC) Normal Eosinophil 3.1 LAB 19912-8(LO 80.0-97.0 FL INC) MCV Normal 84.0 Performed By: #### 03080-8 #### [facility] [address], [place] PROTHROMBIN TIME Collected: 09/30/2018 Status: F Source: [place] 5:53 AM HEALTH SYSTEM REPOSITORY TYPE CODE TESTS RESULT OUT OF RANGE REFERENCE UNITS LAB 38945-6(HANY NC) Normal INR 1.48 Result Comment: The recommended therapeutic INR range for most cardiac indications is 2.0-3.0. For high intensity therapy(ie.mechanical heart valves), the recommended range is 2.5-3.5. LAB 5902-2(LOINC) 9.3-12.4 Sec Prothrombin High Time (PT) 17.2 Performed By: #### 5902-2 #### [facility] [address], [place] MAGNESIUM LEVEL Collected: 09/30/2018 Status: F Source: [place] 5:53 AM HEALTH SYSTEM REPOSITORY TYPE CODE TESTS RESULT OUT OF RANGE REFERENCE UNITS LAB 51126-9(LO 1.8-2.5 mg/dL INC) Normal Magnesium Level 2.3 Performed By: #### 69610-2, 75309-1 #### [facility] [address], [place] BASIC METABOLIC PANEL Collected: 09/30/2018 Status: F Source: [place] 5:53 AM [facility] SYSTEM REPOSITORY TYPE CODE TESTS RESULT OUT OF RANGE REFERENCE UNITS LAB 50873-6(LO 70-110 mg/dL INC) High Glucose Level 253 LAB 18274-7(LO 8.9-10.3 mg/dL INC) Low Calcium Total 7.8 LAB 03287-4(LO 6.0-18.0 mMol/L INC) Anion Normal Gap 6.0 LAB 2823-3(HANY 3.6-5.1 mMol/L NC) Normal Potassium Level 4.4 LAB 2075-0(HANY 98-107 mMol/L NC) Chloride Normal Level 100 LAB 2160-0(HANY 0.60-1.30 mg/dL NC) High Creatinine 1.42 LAB 70581-7(LO 8-20 mg/dL INC) High BUN 44 LAB 2951-2(HANY 136-145 mMol/L NC) Low Sodium Level 133 LAB 2028-9(HANY 22-32 mMol/L NC) Carbon Normal Dioxide Level 27 Performed By: #### 41564-5, 00911-7 #### [facility] [address], [place] XR CHEST 1 VIEW Observed: 09/30/2018 Status: F Source: [place] 4:57 AM HEALTH SYSTEM REPOSITORY EXAMINATION TYPE: [...] HEALTH SYSTEM REPOSITORY Patient: LOVE PHELAN MRN: (COL)-[id number] Age: 73 years Sex: Male : 1945 [...] 25mg daily starting tomorrow. Seun Keyes MD [facility], [facility]. Pager: [phone] Subjective seen this am, feels well, denies [...] PROGRESS NOTES Observed: 09/29/2018 Status: C Source: [place] 10:32 AM [facility] SYSTEM REPOSITORY Patient: LOVE PHELAN Age: 73 years Sex: Male : 1945 Associated Diagnoses: None Author: Cristihan Hong DO Assessment Diagnosis/Impression/Plan: Medicine Sign-on Mr Love Phelan is a 73-year-old male with past medical history to include CAD status post stents, hypertension, hyperlipidemia, insulin-dependent diabetes, newly diagnosed CKD stage III, who p resents to [facility] 09/21/2018 for dyspnea Interval workup notable for [...] 0.4 mg, Subl, Q5min, PRN: See Comments [place] 5 mg/325 mg*: 2 Tab, PO, Q4h, PRN: Pain - Moderate [place] 5 mg/325 m Tab, PO, Q4h, PRN: [...] mcg/ml injectable solution: 1 mL, IM, Month ([id number]), Each, 0 Refill(s) glipiZIDE 10 mg oral [...] PROTHROMBIN TIME Collected: 09/29/2018 Status: F Source: [place] 9:58 AM [facility]ALTH SYSTEM REPOSITORY TYPE CODE TESTS RESULT OUT OF RANGE REFERENCE UNITS LAB 66429-4(HANY NC) Normal INR 1.28 Result Comment: The recommended therapeutic INR range for most cardiac indications is 2.0-3.0. For high intensity therapy(ie.mechanical heart valves), the recommended range is 2.5-3.5. LAB 5902-2(LOINC) 9.3-12.4 Sec Prothrombin High Time (PT) 14.7 Performed By: #### 5902-2 #### [facility] [address], [place] PROGRESS NOTES Observed: 09/29/2018 Status: C Source: [place] 8:51 AM [facility]ALTH SYSTEM REPOSITORY Patient: LOVE PHELAN MRN: (COL)-[id number] Age: 73 years Sex: Male : 1945 [...] underlying CAD. -Chronic ischemic heart disease; s/p ND and multivessel stenting 2009. He had negative [...] per primary team Abdoulaye Stanford MD, [facility] Labs - Last 36 hours (Max 2 [...] 09/28/18 03:11:00 HYDROcodone/Acetaminophen 5 mg/325 mg Tab ([place] 5 GEq) 2 Tab, PO, Tab, Q4h, [...] Not Given HYDROcodone/Acetaminophen 5 mg/325 mg Tab ([place] 5 GEq) 1 Tab, PO, Tab, Q4h, [...] HEALTH SYSTEM REPOSITORY Patient: LOVE PHELAN MRN: [id number] Age: 73 years Sex: Male : 1945 [...] RESULT OUT OF REFERENCE UNITS RANGE LAB 52398-1(LO 40.0-70.0 % INC) High Neutrophil 72.0 LAB 79576-4(LO 80.0-97.0 FL INC) MCV Normal 84.5 LAB 36068-6(LO 0.0-7.0 % INC) Normal Eosinophil 1.5 LAB 82383-3(LO 11.0-14.8 % INC) RDW High 15.1 LAB 13712-3(LO 4.30-5.70 million/mcL INC) Low Red Blood Cell 3.37 Count LAB 704-7(LOIN 0.00-0.20 thou/mcL C) Normal Basophil 0.00 Absolute LAB 731-0(LOIN 1.00-4.80 thou/mcL C) Low Lymphocyte 0.90 Absolute LAB 36271-8(LO 0.0-12.0 % INC) Normal Monocyte 11.7 LAB 711-2(LOIN 0.00-0.70 thou/mcL C) Normal Eosinophil 0.10 Absolute LAB 16735-3(LO 39.0-49.0 % INC) Low Hematocrit 28.5 LAB 79778-1(LO 32.0-36.0 gm/dL INC) MCHC Normal 32.8 LAB 751-8(LOIN 1.80-7.70 thou/mcL C) Normal Neutrophil 4.50 Absolute LAB 04765-4(LO 22.0-44.0 % INC) Low Lymphocyte 14.4 LAB 92272-8(LO 4.6-10.2 thou/mcL INC) WBC Normal Count 6.2 LAB 79579-3(LO 27.0-34.0 Picograms INC) MCH Normal 27.8 LAB 88566-4(LO 6.2-12.1 FL INC) MPV Normal 9.3 LAB 718-7(LOIN 13.5-17.5 gm/dL C) Low Hemoglobin 9.4 LAB 64573-1(LO 142-424 thou/mcL INC) Low Platelet Count 102 LAB 90929-3(LO 0.0-2.0 % INC) Normal Basophil 0.4 LAB 742-7(LOIN 0.00-0.90 thou/mcL C) Normal Monocyte 0.70 Absolute Performed By: #### 22022-7 #### [facility] [address], [place] GFRAA Collected: 09/29/2018 Status: F Source: [place] 6:07 AM HEALTH SYSTEM REPOSITORY TYPE CODE TESTS RESULT OUT OF RANGE REFERENCE UNITS LAB 26442-3(LO mL/min INC) GFR Normal Estimated 53 Result Comment: The MDRD equation has not been validated for those over 70 years, women, patients with serious co-morbid conditions, or with extremes of body size, muscle mass of nutritional status. Performed By: #### 49760-1, 81252-5k4, 94529-7, 93018-5 #### [facility] [address], [place] GFRBB Collected: 09/29/2018 Status: F Source: [place] 6:07 HEALTH SYSTEM REPOSITORY TYPE CODE TESTS RESULT OUT OF RANGE REFERENCE UNITS LAB 09072-9(LO mL/min INC) GFR Normal Estimated Non 44 Performed By: #### 62311-7, 39391-7f8, 25279-5, 53138-4 #### [facility] [address], [place] MAGNESIUM LEVEL Collected: 09/29/2018 Status: F Source: [place] 6:07 HEALTH SYSTEM REPOSITORY TYPE CODE TESTS RESULT OUT OF RANGE REFERENCE UNITS LAB 11306-7(LO 1.8-2.5 mg/dL INC) Normal Magnesium Level 2.4 Performed By: #### 05596-4, 40209-8q1, 50779-4, 48656-8 #### [facility] [address], [place] BASIC METABOLIC PANEL Collected: 09/29/2018 Status: F Source: [place] 6:07 AM [facility] SYSTEM REPOSITORY TYPE CODE TESTS RESULT OUT OF RANGE REFERENCE UNITS LAB 2160-0(HANY 0.60-1.30 mg/dL NC) High Creatinine 1.57 LAB 37336-0(LO 6.0-18.0 mMol/L INC) Anion Normal Gap 6.0 LAB 2028-9(HANY 22-32 mMol/L NC) Carbon Normal Dioxide Level 27 LAB 27368-4(LO 70-110 mg/dL INC) High Glucose Level 259 LAB 2951-2(HANY 136-145 mMol/L NC) Low Sodium Level 132 LAB 2075-0(HANY 98-107 mMol/L NC) Chloride Normal Level 99 LAB 21326-1(LO 8.9-10.3 mg/dL INC) Low Calcium Total 7.9 LAB 95240-7(LO 8-20 mg/dL INC) High BUN 51 LAB 2823-3(HANY 3.6-5.1 mMol/L NC) Normal Potassium Level 4.4 Performed By: #### 68565-1, 85121-2v8, 56716-7, 00725-7 #### [facility] [address], [place] XR CHEST 1 VIEW Observed: 09/29/2018 Status: F Source: [place] 5:16 AM HEALTH SYSTEM REPOSITORY AP PORTABLE [...] HEALTH SYSTEM REPOSITORY Patient: LOVE PHELAN MRN: (COL)-[id number] Age: 73 years Sex: Male : 1945 [...] urine. continue oral hydration Seun Keyes MD [facility] Pager: [phone] Subjective seen this am, transferred out of [...] HEALTH SYSTEM REPOSITORY Patient: LOVE PHELAN MRN: [id number])-[id number] Age: 73 years Sex: Male : 1945 [...] PROGRESS NOTES Observed: 09/28/2018 Status: C Source: [place] 6:52 AM HEALTH SYSTEM REPOSITORY Patient: LOVE PHELAN MRN: [id number])-[id number] Age: 73 years Sex: Male : 1945 Associated Diagnoses: None Author: Pedro Ibarra [facility] Cardiology Progress Note CC: Severe MR S/P mitral valve replacement with 27 mm Medtronic Weldon tissue valve through mini thoracotomy Subjective: Patient states he's feeling well, slept good last night. Primary brusher warp: Dr Blanchard in [place] Objective: Vital signs, labs, MAR, telemetry reviewed. [...] Moderate left atrial enlargement Small PFO with [id number] shunt. No right to left shunting demonstrated [...] underlying CAD. -Chronic ischemic heart disease; s/p ND and multivessel stenting 2009. He had negative stress test 2014. -Carotid artery disease -HTN, uncontrolled. Pt reports difficult to control BP at baseline requiring ongoing up-titration of regimen. At home may trend 130-150s mmHg systolic. -HLD -DM2 -CKD stage III: Nephrology following. -Obesity PLAN: - wean O2 -Continue supportive care. -Continue aspirin, statin, beta-rbisa -Incentive spirometry -CXR pending -Cardiac rehabilitation Addendum: [...] 09/28/18 03:11:00 HYDROcodone/Acetaminophen 5 mg/325 mg Tab ([place] 5 GEq) 2 Tab, PO, Tab, Q4h, [...] Not Given HYDROcodone/Acetaminophen 5 mg/325 mg Tab ([place] 5 GEq) 1 Tab, PO, Tab, Q4h, [...] Cardiac Surgery COMPARISON: September 27, 2018. FINDINGS/IMPRESSION: Hastings-Yajaira catheters been removed. Right PICC tip to [...] RESULT OUT OF REFERENCE UNITS RANGE LAB 92248-9(LO 27.0-34.0 Picograms INC) MCH Normal 28.0 LAB 751-8(LOIN 1.80-7.70 thou/mcL C) Normal Neutrophil 5.90 Absolute LAB 88939-1(LO 0.0-2.0 % INC) Normal Basophil 0.3 LAB 704-7(LOIN 0.00-0.20 thou/mcL C) Normal Basophil 0.00 Absolute LAB 27497-9(LO 4.6-10.2 thou/mcL INC) WBC Normal Count 8.3 LAB 97073-1(LO 0.0-7.0 % INC) Normal Eosinophil 0.4 LAB 89169-7(LO 6.2-12.1 FL INC) MPV Normal 9.0 LAB 711-2(LOIN 0.00-0.70 thou/mcL C) Normal Eosinophil 0.00 Absolute LAB 42678-9(LO 80.0-97.0 FL INC) MCV Normal 85.4 LAB 62655-9(LO 0.0-12.0 % INC) High Monocyte 12.8 LAB 87542-8(LO 142-424 thou/mcL INC) Low Platelet Count 93 Result Comment: SLIDE PREVIOUSLY REVIEWED EM 09/28/18 06:28 LAB 70951-8(LOINC) 39.0-49.0 % Low Hematocrit 30.6 LAB 742-7(LOINC) 0.00-0.90 thou/m cL Monocyte High Absolute 1.10 LAB 17587-5(LOINC) 11.0-14.8 % RDW High 15.3 LAB 718-7(LOINC) 13.5-17.5 gm/dL Low Hemoglobin 10.0 LAB 62947-7(LOINC) 22.0-44.0 % Low Lymphocyte 14.5 LAB 731-0(LOINC) 1.00-4.80 thou/m cL Normal Lymphocyte Absolute 1.20 LAB 46546-7(LOINC) 32.0-36.0 gm/dL MCHC Normal 32.7 LAB 83303-9(LOINC) 4.30-5.70 millio Low n/mcL Red Blood Cell Count 3.58 LAB 98443-5(LOINC) 40.0-70.0 % High Neutrophil 72.0 Performed By: #### 92578-7 #### [facility] [address], [place] GFRAA Collected: 09/28/2018 Status: F Source: [place] 5:52 AM HEALTH SYSTEM REPOSITORY TYPE CODE TESTS RESULT OUT OF RANGE REFERENCE UNITS LAB 60352-5(LO mL/min INC) GFR Normal Estimated 45 Result Comment: The MDRD equation has not been validated for those over 70 years, women, patients with serious co-morbid conditions, or with extremes of body size, muscle mass of nutritional status. Performed By: #### 35162-3, 17146-5g4, 79408-3, 07013-9 #### [facility] [address], [place] GFRBB Collected: 09/28/2018 Status: F Source: [place] 5:52 AM [facility]ALTH SYSTEM REPOSITORY TYPE CODE TESTS RESULT OUT OF RANGE REFERENCE UNITS LAB 24416-6(LO mL/min INC) GFR Normal Estimated Non 38 Performed By: #### 03886-9, 53655-7x4, 34962-3, 12518-5 #### [facility] [address], [place] MAGNESIUM LEVEL Collected: 09/28/2018 Status: F Source: [place] 5:52 AM [facility] SYSTEM REPOSITORY TYPE CODE TESTS RESULT OUT OF RANGE REFERENCE UNITS LAB 28119-5(LO 1.8-2.5 mg/dL INC) Normal Magnesium Level 2.5 Performed By: #### 88633-1, 39518-9n6, 13613-1, 89754-0 #### [facility] [address], [place] BASIC METABOLIC PANEL Collected: 09/28/2018 Status: F Source: [place] 5:52 AM HEALTH SYSTEM REPOSITORY TYPE CODE TESTS RESULT OUT OF RANGE REFERENCE UNITS LAB 2075-0(HANY 98-107 mMol/L NC) Chloride Normal Level 101 LAB 69447-3(LO 70-110 mg/dL INC) High Glucose Level 152 LAB 2951-2(HANY 136-145 mMol/L NC) Low Sodium Level 135 LAB 2823-3(HANY 3.6-5.1 mMol/L NC) Normal Potassium Level 4.5 LAB 89721-6(LO 8.9-10.3 mg/dL INC) Low Calcium Total 8.1 LAB 61597-2(LO 8-20 mg/dL INC) High BUN 51 LAB 2160-0(HANY 0.60-1.30 mg/dL NC) High Creatinine 1.79 LAB 64991-2(LO 6.0-18.0 mMol/L INC) Anion Normal Gap 7.0 LAB 2028-9(HANY 22-32 mMol/L NC) Carbon Normal Dioxide Level 27 Performed By: #### 15617-4, 04162-7r2, 44017-0, 96721-8 #### [facility] [address], [place] GLUCOSE POCT Collected: 09/28/2018 Status: F [...] 580 Performed By: #### 2695-5 #### [facility], [address] [place], [place] #### 59379-5, 37426-1, 2078-4, 2955-3 #### [facility] [address], [place] #### 28767-4 #### [facility] [address], [place] CREATININE RANDOM Collected: 09/28/2018 Status: F Source: [facility] URINE 2:00 [facility] REPOSITORY TYPE CODE TESTS RESULT OUT OF RANGE REFERENCE UNITS LAB 2161-8(HANY mg/dL NC) Normal Creatinine Urine 135.00 Performed By: #### 2695-5 #### [facility], [address] [place], [place] #### 15842-3, 41752-0, 2078-4, 2955-3 #### [facility] [address] [place] [address] #### 18132-6 #### [facility] [address], [place] PROTEIN CREATININE Collected: 09/28/2018 Status: F Source: [facility] URINE 2:00 AM [facility] REPOSITORY TYPE CODE TESTS RESULT OUT OF RANGE REFERENCE UNITS LAB 27089-1(LO INC) Protein Normal / Creatinine 0.6 Ratio Urine Result Comment: Reference Intervals: Normal Proteinuria = <0.1 Mild Proteinuria = 0.1 - 1.0 Moderate Proteinuria = 1.0 - 10.0 Heavy Proteinuria = >10.0 LAB 2888-6(LOINC) <11.9 mg/dL Protein High Random Urine 75.9 LAB 2161-8(LOINC) mg/dL Normal Creatinine Urine 135.00 Performed By: #### 2695-5 #### [facility], [address] [place] [address] #### 08868-7, 04264-4, 2078-4, 2955-3 #### [facility] [address] [place] [address] #### 29994-3 #### [facility] [address], [place] CHLORIDE RANDOM URINE Collected: 09/28/2018 Status: F Source: [place] 2:00 AM [facility] SYSTEM REPOSITORY TYPE CODE TESTS RESULT OUT OF RANGE REFERENCE UNITS LAB 8-4(HANY mMol/L NC) Normal Chloride 18 Random Urine Performed By: #### 2695-5 #### [facility], [address] [place] [address] #### 58034-9, 47461-7, 2078-4, 2955-3 #### [facility] [address] [place] [address] #### 19570-3 #### [facility] [address], [place] SODIUM RANDOM URINE Collected: 09/28/2018 Status: F Source: [place] 2:00 AM [facility] REPOSITORY TYPE CODE TESTS RESULT OUT OF RANGE REFERENCE UNITS LAB 2955-3(LOIN 30-90 mMol/L C) Normal Sodium Random 61 Urine Performed By: #### 2695-5 #### [facility], [address] [place] [address] #### 02864-8, 34219-8, 2078-4, 2955-3 #### [facility] [address] [place] [address] #### 56711-9 #### [facility] [address], [place] MICROALBUMIN RANDOM Collected: 09/28/2018 Status: F Source: [place] URINE 2:00 AM [facility] REPOSITORY TYPE CODE TESTS RESULT OUT OF REFERENCE UNITS RANGE LAB 2161-8(HANY mg/dL NC) Creatinine Normal Urine 129.32 LAB 04074-0(LO <30 mg/Gm INC) Microalbumin High Creatinine Ratio 352 Urine Performed By: #### 2695-5 #### [facility], [address] [place] [address] #### 23740-3, 33293-5, 8-4, 2955-3 #### [facility] [address] [place] [address] #### 01812-9 #### [facility] [address], [place] GLUCOSE POCT Collected: 09/28/2018 Status: F [...] HEALTH SYSTEM REPOSITORY Patient: LOVE PHELAN MRN: [id number] Age: 73 years Sex: Male : 1945 Associated Diagnoses: None Author: Javon AMBRIZ , Alexander Dumont [facility] Cardiology Progress Note 09/27/2018 09:32 CC: I [...] Moderate left atrial enlargement Small PFO with [id number] shunt. No right to left shunting demonstrated [...] underlying CAD. -Chronic ischemic heart disease; s/p ND and multivessel stenting 2009. He had negative [...] Not Given HYDROcodone/Acetaminophen 5 mg/325 mg Tab ([place] 5 GEq) 1 Tab, PO, Tab, Q4h, [...] PROGRESS NOTES Observed: 09/27/2018 Status: C Source: [place] 8:00 AM [facility] REPOSITORY Patient: LOVE PHELAN MRN: [id number])-[id number] Age: 73 years Sex: Male : 1945 Associated Diagnoses: None Author: Manuela Ybarra CNP Supervising Physician Comments Assessment and Plan 1. Mitral regurg : POD # 1Right anterior mini thoracotomy; Mitral valve replacement with 27 mm Medtronic Weldon tissue valve - Stable post mvr, Pain Q ball for pain - Statin/aspirin/BB - D/C A line/Hastings - Keep chest tubes for now. Keep [...] inferior 10% of chest not included in [id number] potentially study accuracy. Hastings-Yajaira catheter tip overlies right main pulmonary artery. [...] HEALTH SYSTEM REPOSITORY Patient: LOVE PHELAN MRN: [id number] Age: 73 years Sex: Male : 1945 [...] CXR pending. Will monitor. Seun Keyes MD [facility], [facility]. Pager: [phone] Subjective seen this am, extubated, denies SOB, [...] 14:10) 38 mL/min (09/25 05:36) GFR Est. Ebrta 50 mL/min (09/26 14:10) 45 mL/min (09/25 [...] RESULT OUT OF REFERENCE UNITS RANGE LAB 48584-6(LO 1.8-2.5 mg/dL INC) High Magnesium Level 2.7 Performed By: #### 34564-0, 06196-4 #### [facility] [address], [place] BASIC METABOLIC PANEL Collected: 09/27/2018 Status: F Source: [place] 5:52 AM [facility] REPOSITORY TYPE CODE TESTS RESULT OUT OF RANGE REFERENCE UNITS LAB 06636-3(LO 8.9-10.3 mg/dL INC) Low Calcium Total 8.6 LAB 84424-8(LO 8-20 mg/dL INC) High BUN 50 LAB 71260-8(LO 6.0-18.0 mMol/L INC) Anion Normal Gap 10.0 LAB 2951-2(HANY 136-145 mMol/L NC) Sodium Normal Level 140 LAB 2160-0(HANY 0.60-1.30 mg/dL NC) High Creatinine 1.86 LAB 2823-3(HANY 3.6-5.1 mMol/L NC) Normal Potassium Level 4.6 LAB 51598-9(LO 70-110 mg/dL INC) High Glucose Level 126 LAB 2028-9(HANY 22-32 mMol/L NC) Carbon Normal Dioxide Level 25 LAB 2075-0(HANY 98-107 mMol/L NC) Chloride Normal Level 105 Performed By: #### 81944-8, 17132-4 #### [facility] [address], [place] PROTHROMBIN TIME Collected: 09/27/2018 Status: F Source: [place] 5:52 AM [facility] REPOSITORY TYPE CODE TESTS RESULT OUT OF RANGE REFERENCE UNITS LAB 99055-3(HANY NC) Normal INR 1.37 Result Comment: The recommended therapeutic INR range for most cardiac indications is 2.0-3.0. For high intensity therapy(ie.mechanical heart valves), the recommended range is 2.5-3.5. LAB 5902-2(LOINC) 9.3-12.4 Sec Prothrombin High Time (PT) 15.8 Performed By: #### 5902-2, 3173-2 #### [facility] [address], [place] PARTIAL THROMBOPLASTIN Collected: 09/27/2018 Status: F Source: [place] TIME (APTT) 5:52 AM [facility] SYSTEM REPOSITORY TYPE CODE TESTS RESULT OUT OF REFERENCE UNITS RANGE LAB 90054-8(LO 23.6-35.3 Sec INC) Partial Normal Thromboplastin 27.8 (aPTT) Performed By: #### 5902-2, 3173-2 #### [facility] [address], [place] CBC WITH DIFFERENTIAL Collected: 09/27/2018 Status: F Source: [place] 5:52 AM [facility] REPOSITORY TYPE CODE TESTS RESULT OUT OF RANGE REFERENCE UNITS LAB 07518-6(LO 0.0-7.0 % INC) Normal Eosinophil 0.1 LAB 73024-3(LO 40.0-70.0 % INC) High Neutrophil 80.8 LAB 14140-8(LO 80.0-97.0 FL INC) MCV Normal 82.8 LAB 95343-1(LO 142-424 thou/mcL INC) Low Platelet Count 97 Result Comment: SLIDE PREVIOUSLY REVIEWED LAB 20993-0(LOINC) 0.0-12.0 % Normal Monocyte 10.7 LAB 731-0(LOINC) 1.00-4.80 thou/mcL Low Lymphocyte Absolute 0.70 LAB 06642-7(LOINC) 39.0-49.0 % Low Hematocrit 31.5 LAB 704-7(LOINC) 0.00-0.20 thou/mcL Normal Basophil Absolute 0.00 LAB 718-7(LOINC) 13.5-17.5 gm/dL Low Hemoglobin 10.6 LAB 711-2(LOINC) 0.00-0.70 thou/mcL Normal Eosinophil Absolute 0.00 LAB 19047-0(LOINC) 11.0-14.8 % RDW High 15.3 LAB 751-8(LOINC) 1.80-7.70 thou/mcL Normal Neutrophil Absolute 6.70 LAB 58091-0(LOINC) 0.0-2.0 % Normal Basophil 0.2 LAB 14361-2(LOINC) 4.30-5.70 million/mcL Red Low Blood Cell Count 3.80 LAB 49960-1(LOINC) 22.0-44.0 % Low Lymphocyte 8.2 LAB 68492-9(LOINC) 32.0-36.0 gm/dL MCHC Normal 33.7 LAB 742-7(LOINC) 0.00-0.90 thou/mcL Normal Monocyte Absolute 0.90 LAB 63895-0(LOINC) 4.6-10.2 thou/mcL WBC Normal Count 8.3 LAB 97202-0(LOINC) 27.0-34.0 Picograms MCH Normal 27.9 LAB 04603-7(LOINC) 6.2-12.1 FL MPV Normal 8.6 Performed By: #### 83386-4 #### [facility] [address], [place] GLUCOSE POCT Collected: 09/27/2018 Status: F [...] CARE CBC Collected: 09/27/2018 Status: F Source: [place] 1:53 AM [facility] REPOSITORY TYPE CODE TESTS RESULT OUT OF RANGE REFERENCE UNITS LAB 85104-6(LO 11.0-14.8 % INC) High RDW 15.0 LAB 43974-4(LO 80.0-97.0 FL INC) MCV Normal 82.4 LAB 94799-3(LO 6.2-12.1 FL INC) MPV Normal 8.8 LAB 71330-9(LO 32.0-36.0 gm/dL INC) MCHC Normal 33.3 LAB 57003-0(LO 39.0-49.0 % INC) Low Hematocrit 32.1 LAB 84990-0(LO 4.6-10.2 thou/mcL INC) WBC Normal Count 8.2 LAB 718-7(LOIN 13.5-17.5 gm/dL C) Low Hemoglobin 10.7 LAB 17963-6(LO 142-424 thou/mcL INC) Low Platelet Count 98 Result Comment: SLIDE PREVIOUSLY REVIEWED LAB 78671-0(LOINC) 27.0-34.0 Picograms Normal MCH 27.5 LAB 06949-1(LOINC) 4.30-5.70 million/mcL Low Red Blood 3.89 Cell Count Performed By: #### 47779-7 #### [facility] [address], [place] POTASSIUM LEVEL Collected: 09/27/2018 Status: F Source: [place] 1:53 [facility] SYSTEM REPOSITORY TYPE CODE TESTS RESULT OUT OF RANGE REFERENCE UNITS LAB 2823-3(HANY 3.6-5.1 mMol/L NC) Normal Potassium Level 4.5 Performed By: #### 2823-3, 62995-2, - #### [facility] [address], [place] CALCIUM TOTAL Collected: 09/27/2018 Status: F Source: [place] 1:53 AM [facility] REPOSITORY TYPE CODE TESTS RESULT OUT OF REFERENCE UNITS RANGE LAB 45275-9(HANY 8.9-10.3 mg/dL NC) Low Calcium Total 8.6 Performed By: #### 2823-3, 35630-8, - #### [facility] [address], [place] MAGNESIUM LEVEL Collected: 09/27/2018 Status: F Source: [place] 1:53 AM [facility] REPOSITORY TYPE CODE TESTS RESULT OUT OF REFERENCE UNITS RANGE LAB 76171-1(LO 1.8-2.5 mg/dL INC) High Magnesium Level 2.7 Performed By: #### 2823-3, 56372-7, 22253- 9 #### [facility] [address], [place] GLUCOSE POCT Collected: 09/27/2018 Status: F [...] RESULT OUT OF REFERENCE UNITS RANGE LAB 55312-6(LO 4.30-5.70 million/mcL INC) Low Red Blood Cell 4.00 Count LAB 69498-1(LO 6.2-12.1 FL INC) MPV Normal 8.9 LAB 60734-7(LO 32.0-36.0 gm/dL INC) MCHC Normal 33.3 LAB 13583-4(LO 39.0-49.0 % INC) Low Hematocrit 33.4 LAB 61720-3(LO 4.6-10.2 thou/mcL INC) WBC Normal Count 7.0 LAB 65183-8(LO 27.0-34.0 Picograms INC) MCH Normal 27.8 LAB 718-7(LOIN 13.5-17.5 gm/dL C) Low Hemoglobin 11.1 LAB 69091-9(LO 142-424 thou/mcL INC) Low Platelet Count 98 Result Comment: Result confirmed by slide review. LAB 04105-9(LOINC) 11.0-14.8 % High RDW 14.9 LAB 26529-7(LOINC) 80.0-97.0 FL Normal MCV 83.6 Performed By: #### 45663-6 #### [facility] [address], [place] POTASSIUM LEVEL Collected: 09/26/2018 Status: F Source: [place] 9:58 PM [facility] SYSTEM REPOSITORY TYPE CODE TESTS RESULT OUT OF RANGE REFERENCE UNITS LAB 2823-3(HANY 3.6-5.1 mMol/L NC) Normal Potassium Level 4.5 Performed By: #### 2823-3, 09213-4, - 9 #### [facility] [address], [place] CALCIUM TOTAL Collected: 09/26/2018 Status: F Source: [place] 9:58 PM [facility] REPOSITORY TYPE CODE TESTS RESULT OUT OF REFERENCE UNITS RANGE LAB 34946-4(HANY 8.9-10.3 mg/dL NC) Low Calcium Total 8.6 Performed By: #### 2823-3, 07642-8, - 9 #### [facility] [address], [place] MAGNESIUM LEVEL Collected: 09/26/2018 Status: F Source: [place] 9:58 PM [facility] REPOSITORY TYPE CODE TESTS RESULT OUT OF REFERENCE UNITS RANGE LAB 90899-6(LO 1.8-2.5 mg/dL INC) High Magnesium Level 2.8 Performed By: #### 2823-3, 65878-1, - 9 #### [facility] [address], [place] GLUCOSE POCT Collected: 09/26/2018 Status: F Source: [place] (UPLOADED) 7:55 PM [facility] SYSTEM REPOSITORY TYPE [...] were taken by Patient Care Services. LAB 01701-2(LOINC) VOL% O2 Content POCT Normal 14.7 LAB 2075-0(LOINC) 98-1 mEq/L 06 Chloride POCT Normal 103 LAB 92272-4(LOINC) 0.5- mMol/L 1.6 Lactate POCT Normal 1.6 LAB 2708-6(LOINC) 95.0 % O2 -99. Saturation Arterial Normal 0 POCT 95.5 LAB 75732-4(LOINC) 3.5- mEq/L 5.0 Potassium POCT Normal 4.6 LAB 36290-2(LOINC) FiO2 POCT Normal 36.0 LAB 45404-0(LOINC) 39-4 % Low 9 Hematocrit POCT 34 LAB 92535-4(LOINC) 21.0 mMol/L -28. HCO3 Arterial POCT Normal 0 27.5 LAB 2951-2(LOINC) 136- mEq/L 146 Sodium POCT Normal 141 LAB 2614-6(LOINC) 0.2- % 0.6 Methemoglobin POCT Normal 0.6 LAB 07671-9(LOINC) Sample Type POCT Normal Arterial LAB 2703-7(LOINC) 83-1 mmHg pO2 Low 08 Arterial POCT 77 LAB 96295-0(LOINC) 94.0 % O2 Low -99. Hemoglobin POCT 0 93.3 LAB 31184-8(LOINC) 1.12 mMol/L -1.3 Calcium Ionized POCT Normal 2 1.21 LAB 2026-3(LOINC) 22.0 mMol/L -29. Total CO2 Arterial Normal 0 POCT 25.5 LAB 2019-8(LOINC) 32-4 mmHg 8 pCO2 Arterial POCT Normal 46 LAB 74587-4(LOINC) 70-1 mg/dL 10 Glucose POCT High 207 LAB 97590-2(LOINC) 10.0 mEq/L -20. Anion Gap POCT Normal 0 10.7 LAB 19704-6(LOINC) -2.0 mMol/L -3.0 Base Excess POCT Normal 2.0 LAB 38322-7(LOINC) % Carboxyhemoglobin POCT Normal 1.7 Result Comment: NON SMOKERS <1.5% SMOKERS 1.5 - 9.0% Performed By: #### 49704-0l1 #### POINT OF CARE CBC Collected: 09/26/2018 Status: F Source: [place] 6:12 PM [facility] REPOSITORY TYPE CODE TESTS RESULT OUT OF REFERENCE UNITS RANGE LAB 80113-3(LO 6.2-12.1 FL INC) MPV Normal 8.9 LAB 28144-8(LO 80.0-97.0 FL INC) MCV Normal 83.6 LAB 718-7(LOIN 13.5-17.5 gm/dL C) Low Hemoglobin 11.2 LAB 86376-1(LO 142-424 thou/mcL INC) Low Platelet Count 104 LAB 03670-9(LO 32.0-36.0 gm/dL INC) MCHC Normal 33.3 LAB 57750-5(LO 4.30-5.70 million/mcL INC) Low Red Blood Cell 4.03 Count LAB 07564-4(LO 39.0-49.0 % INC) Low Hematocrit 33.7 LAB 85214-2(LO 4.6-10.2 thou/mcL INC) WBC Normal Count 7.1 LAB 86228-2(LO 11.0-14.8 % INC) RDW High 15.3 LAB 08210-9(LO 27.0-34.0 Picograms INC) MCH Normal 27.8 Performed By: #### 92267-8 #### [facility] [address], [place] CALCIUM TOTAL Collected: 09/26/2018 Status: F Source: [place] 6:12 PM [facility] REPOSITORY TYPE CODE TESTS RESULT OUT OF REFERENCE UNITS RANGE LAB 08537-5(HANY 8.9-10.3 mg/dL NC) Low Calcium Total 8.8 Performed By: #### 79058-0, 44633-7, 2823- 3 #### [facility] [address], [place] MAGNESIUM LEVEL Collected: 09/26/2018 Status: F Source: [place] 6:12 PM [facility] REPOSITORY TYPE CODE TESTS RESULT OUT OF REFERENCE UNITS RANGE LAB 42614-7(LO 1.8-2.5 mg/dL INC) High Magnesium Level 2.9 Performed By: #### 56595-9, 56120-5, 2823- 3 #### [facility] [address], [place] POTASSIUM LEVEL Collected: 09/26/2018 Status: F Source: [place] 6:12 PM [facility] REPOSITORY TYPE CODE TESTS RESULT OUT OF RANGE REFERENCE UNITS LAB 2823-3(HANY 3.6-5.1 mMol/L NC) Normal Potassium Level 4.5 Performed By: #### 58806-0, 41827-1, 2823- 3 #### [facility] [address], [place] BLOOD GAS POCT ABG Collected: 09/26/2018 Status: F Source: [place] LYTES LACTATE 5:28 PM [facility] SYSTEM (UPLOAD) REPOSITORY TYPE CODE TESTS RESULT OUT OF REFERENCE UNITS RANGE LAB 10914-1(L 21.0-28.0 mMol/L OINC) HCO3 Arterial POCT Normal 26.1 LAB 94203-7(L -2.0-3.0 mMol/L OINC) Base Excess POCT Normal 1.2 LAB 09018-4(L % OINC) Carboxyhemoglobin POCT Normal 1.7 Result Comment: NON SMOKERS <1.5% SMOKERS 1.5 - 9.0% LAB 72697-5(LOINC) 70-110 mg/dL High Glucose POCT 207 LAB 50862-2(LOINC) 10.0-20.0 mEq/L Anion Normal Gap POCT 11.5 LAB 2703-7(LOINC) 83-108 mmHg pO2 Normal Arterial POCT 84 LAB 05376-4(LOINC) 0.5-1.6 mMol/L High Lactate POCT 1.9 LAB 718-7(LOINC) 13.5-17.5 gm/dL Low Hemoglobin POCT 11.1 LAB 2075-0(LOINC) 98-106 mEq/L Normal Chloride POCT 104 LAB 2019-8(LOINC) 32-48 mmHg pCO2 Normal Arterial POCT 42 LAB 88186-1(LOINC) FiO2 Normal POCT 40.0 LAB 06542-9(LOINC) 39-49 % Low Hematocrit POCT 34 LAB 43144-9(LOINC) 3.5-5.0 mEq/L Normal Potassium POCT 4.5 LAB 09251-9(LOINC) Normal Sample Type Arterial POCT LAB 2744-1(LOINC) 7.35-7.45 Blood Normal Gas pH Arterial 7.40 POCT Result Comment: A result of UNABLE indicates the actual value could not be calculated. Treatment ranges and critical values established by Patient Care Services. All follow-up actions were taken by Patient Care Services. LAB 45480-4(LOINC) VOL% O2 Content POCT Normal 14.9 LAB 2951-2(LOINC) 136-14 mEq/L 6 Sodium POCT Normal 141 LAB 2614-6(LOINC) 0.2-0. % 6 Methemoglobin Normal POCT 0.6 LAB 80767-5(LOINC) 1.12-1 mMol/L .32 Calcium Ionized Normal POCT 1.23 LAB 2708-6(LOINC) 95.0-9 % 9.0 O2 Saturation Normal Arterial POCT 97.2 LAB 2026-3(LOINC) 22.0-2 mMol/L 9.0 Total CO2 Normal Arterial POCT 24.1 LAB 40680-3(LOINC) 94.0-9 % 9.0 O2 Hemoglobin Normal POCT 95.0 Performed By: #### 62966-5v5 #### POINT OF CARE BLOOD GAS POCT ABG Collected: 09/26/2018 Status: F Source: [place] HEMANT LACTATE 4:40 PM [facility] SYSTEM (UPLOAD) REPOSITORY TYPE CODE TESTS RESULT OUT OF REFERENCE UNITS RANGE LAB 2951-2(LO 136-146 mEq/L INC) Sodium POCT Normal 140 LAB 93539-0(L 70-110 mg/dL OINC) Glucose POCT High 227 LAB 92368-0(L OINC) Sample Type POCT Normal Arterial LAB 6-3(LO 22.0-29.0 mMol/L INC) Total CO2 Arterial Normal POCT 23.9 LAB 17759-8(L 94.0-99.0 % OINC) O2 Hemoglobin POCT Low 92.8 LAB 38438-5(L % OINC) Carboxyhemoglobin POCT Normal 1.7 Result Comment: NON SMOKERS <1.5% SMOKERS 1.5 - 9.0% LAB 2703-7(LOINC) 83-108 mmHg Low pO2 Arterial POCT 68 LAB 2075-0(LOINC) 98-106 mEq/L Chloride POCT Normal 103 LAB 39236-2(LOINC) 39-49 % Low Hematocrit POCT 34 LAB 2614-6(LOINC) 0.2-0.6 % Methemoglobin Normal POCT 0.6 LAB 2708-6(LOINC) 95.0-99.0 % Low O2 Saturation Arterial POCT 94.9 LAB 15111-5(LOINC) -2.0-3.0 mMol/L Base Excess Normal POCT 1.6 LAB 57222-7(LOINC) 3.5-5.0 mEq/L Potassium POCT Normal 4.8 LAB 79796-3(LOINC) 1.12-1.32 mMol/L Calcium Normal Ionized POCT 1.22 LAB 22875-3(LOINC) 0.5-1.6 mMol/L Lactate POCT High 1.9 LAB 89371-9(LOINC) VOL% O2 Content Normal POCT 14.6 LAB 718-7(LOINC) 13.5-17.5 gm/dL Low Hemoglobin POCT 11.2 LAB 15715-5(LOINC) 10.0-20.0 mEq/L Anion Gap POCT Normal 11.2 LAB 58846-7(LOINC) FiO2 POCT Normal 40.0 LAB 2744-1(LOINC) 7.35-7.45 Blood Gas pH Normal Arterial POCT 7.43 Result Comment: A result of UNABLE indicates the actual value could not be calculated. Treatment ranges and critical values established by Patient Care Services. All follow-up actions were taken by Patient Care Services. LAB 2019-8(LOINC) 32-48 mmHg Normal pCO2 Arterial POCT 39 LAB 90793-8(LOINC) 21.0-28.0 mMol/L Normal HCO3 Arterial POCT 25.9 Performed By: #### 97145-5d3 #### POINT OF CARE GLUCOSE POCT Collected: [...] HEALTH SYSTEM REPOSITORY Patient: LOVE PHELAN MRN: ([facility])-[id number] Age: 73 years Sex: Male : 1945 [...] HEALTH SYSTEM REPOSITORY Patient: LOVE PHELAN MRN: ([facility])-[id number] Age: 73 years Sex: Male : 1945 [...] HEALTH SYSTEM REPOSITORY Patient: LOVE PHELAN MRN: ([id number] Age: 73 years Sex: Male : 1945 [...] side port below the esophagogastric junction. A Hastings-Yajaira catheter was placed from a left internal [...] right lung base in the subhilar space. [place] thanks you for the opportunity to care for your patient. Workstation ID: [id number] FINAL REPORT Dictated By: Eladio Aldridge MD 09/26/2018 14:59 Assigned Physician: Eladio Aldridge MD Reviewed and Electronically Signed By: Eladio Aldridge MD 09/26/2018 15:03 Transcribed by: CATERINA 09/26/2018 14:59 Technologist: SARAHY TRANSESOPHAGEAL ECHO TXT Observed: 09/26/2018 Status: F Source: [place] 2:45 PM [facility] REPOSITORY Transesophageal Echocardiography Report (CLAIRE) Demographics Patient Name TAPAN Plasencia Date of 1945 Patient Number [id number] Age 73 year(s) Visit Number [id number] Gender Male Room Number OR Admission Status Inpatient Referring Mariano Moreno Shot Core Drill Operator Rafal Bragg RDCS Physician Christi Morris MD [...] CLAIRE Performed By: the attending and the compressed gases tester Type of Anesthesia: General anesthesia CONCLUSIONS SUMMARY [...] Contracta: Signature Observed: 09/26/2018 Status: F [facility]:45 [facility] FRACTION REPOSITORY 45-50 BLOOD GAS POCT ABG Collected: 09/26/2018 Status: F Source: [place] LYTES LACTATE 2:33 PM [facility] SYSTEM (UPLOAD) REPOSITORY TYPE CODE TESTS RESULT OUT OF REFERENCE UNITS RANGE LAB 18126-6(L 10.0-20.0 mEq/L OINC) Anion Gap POCT Normal 14.7 LAB 77332-9(L 21.0-28.0 mMol/L OINC) HCO3 Arterial POCT Normal 23.9 LAB 2614-6(LO 0.2-0.6 % INC) Methemoglobin POCT Normal 0.5 LAB 85233-2(L 39-49 % OINC) Low Hematocrit POCT 33 LAB 2026-3(LO 22.0-29.0 mMol/L INC) Total CO2 Arterial Normal POCT 22.1 LAB 2703-7(LO 83-108 mmHg INC) pO2 Arterial POCT High 205 LAB 59641-7(L -2.0-3.0 mMol/L OINC) Base Excess POCT Normal -0.8 LAB 2075-0(LO 98-106 mEq/L INC) Chloride POCT Normal 102 LAB 66202-1(L % OINC) Carboxyhemoglobin POCT Normal 1.4 Result Comment: NON SMOKERS <1.5% SMOKERS 1.5 - 9.0% LAB 75023-0(LOINC) 94.0-99.0 % O2 Normal Hemoglobin POCT 98.0 LAB 25555-0(LOINC) Normal Sample Type Arterial POCT LAB 2019-8(LOINC) 32-48 mmHg pCO2 Normal Arterial POCT 39 LAB 85286-1(LOINC) VOL% O2 Normal Content POCT 15.3 LAB 09705-8(LOINC) 1.12-1.32 mMol/L Low Calcium Ionized 0.91 POCT LAB 82964-1(LOINC) 3.5-5.0 mEq/L High Potassium POCT 5.1 LAB 02697-2(LOINC) 0.5-1.6 mMol/L High Lactate POCT 2.9 LAB 88416-5(LOINC) 70-110 mg/dL High Glucose POCT 228 LAB [...] 136-146 mEq/L Sodium Normal POCT 141 LAB 44899-1(LOINC) FiO2 Normal POCT 100.0 LAB 718-7(LOINC) 13.5-17.5 gm/dL Low Hemoglobin POCT 10.8 Performed By: #### 05308-9c7 #### POINT OF CARE CBC Collected: 09/26/2018 Status: F Source: [place] 2:10 [facility] REPOSITORY TYPE CODE TESTS RESULT OUT OF REFERENCE UNITS RANGE LAB 86098-7(LO 142-424 thou/mcL INC) Normal Platelet Count 151 LAB 43606-9(LO 32.0-36.0 gm/dL INC) MCHC Normal 32.7 LAB 49210-4(LO 80.0-97.0 FL INC) MCV Normal 83.9 LAB 718-7(LOIN 13.5-17.5 gm/dL C) Low Hemoglobin 10.7 LAB 66289-0(LO 39.0-49.0 % INC) Low Hematocrit 32.8 LAB 84662-8(LO 4.30-5.70 million/mcL INC) Low Red Blood Cell 3.91 Count LAB 88614-4(LO 6.2-12.1 FL INC) MPV Normal 9.0 LAB 86197-6(LO 11.0-14.8 % INC) RDW High 14.9 LAB 80826-8(LO 27.0-34.0 Picograms INC) MCH Normal 27.4 LAB 58310-3(LO 4.6-10.2 thou/mcL INC) WBC High Count 16.8 Performed By: #### 71275-0 #### [facility] [address], [place] GFRAA Collected: 09/26/2018 Status: F Source: [place] 2:10 PM [facility] REPOSITORY TYPE CODE TESTS RESULT OUT OF RANGE REFERENCE UNITS LAB 87443-8(LO mL/min INC) GFR Normal Estimated 50 Result Comment: The MDRD equation has not been validated for those over 70 years, women, patients with serious co-morbid conditions, or with extremes of body size, muscle mass of nutritional status. Performed By: #### 19785-7, 05802-5n4, 13761-7, 58175-5 #### [facility] [address], [place] GFRBB Collected: 09/26/2018 Status: F Source: [facility] REPOSITORY TYPE CODE TESTS RESULT OUT OF RANGE REFERENCE UNITS LAB 64875-4(LO mL/min INC) GFR Normal Estimated Non 41 Performed By: #### 16810-8, 81567-2u1, 15915-6, 54956-1 #### [facility] [address], [place] MAGNESIUM LEVEL Collected: 09/26/2018 Status: F Source: [facility] REPOSITORY TYPE CODE TESTS RESULT OUT OF REFERENCE UNITS RANGE LAB 74594-7(LO 1.8-2.5 mg/dL INC) High Magnesium Level 3.1 Performed By: #### 36360-3, 35155-6a9, 98182-5, 64452-2 #### [facility] [address], [place] BASIC METABOLIC PANEL Collected: 09/26/2018 Status: F Source: [facility] REPOSITORY TYPE CODE TESTS RESULT OUT OF RANGE REFERENCE UNITS LAB 2160-0(HANY 0.60-1.30 mg/dL NC) High Creatinine 1.66 LAB 81104-0(LO 8-20 mg/dL INC) High BUN 47 LAB 45510-9(LO 6.0-18.0 mMol/L INC) Anion Normal Gap 16.0 LAB 2075-0(HANY 98-107 mMol/L NC) Chloride Normal Level 102 LAB 2951-2(HANY 136-145 mMol/L NC) Sodium Normal Level 139 LAB 2823-3(HANY 3.6-5.1 mMol/L NC) Normal Potassium Level 5.1 LAB 17915-7(LO 70-110 mg/dL INC) High Glucose Level 243 LAB 38939-3(LO 8.9-10.3 mg/dL INC) Low Calcium Total 7.9 LAB 2028-9(HANY 22-32 mMol/L NC) Low Carbon Dioxide Level 21 Performed By: #### 67912-1, 25427-4w4, 79219-0, 73622-8 #### [facility] [address], [place] PROTHROMBIN TIME Collected: 09/26/2018 Status: F Source: [facility] REPOSITORY TYPE CODE TESTS RESULT OUT OF RANGE REFERENCE UNITS LAB 5902-2(HANY 9.3-12.4 Sec NC) High Prothrombin Time (PT) 15.1 LAB 60741-0(LO INC) INR Normal 1.31 Result Comment: The recommended therapeutic INR range for most cardiac indications is 2.0-3.0. For high intensity therapy(ie.mechanical heart valves), the recommended range is 2.5-3.5. Performed By: #### 5902-2, 3173-2 #### [facility] [address], [place] PARTIAL THROMBOPLASTIN Collected: 09/26/2018 Status: F Source: [place] TIME (APTT) 2:10 PM [facility] REPOSITORY TYPE CODE TESTS RESULT OUT OF REFERENCE UNITS RANGE LAB 66584-8(LO 23.6-35.3 Sec INC) Partial Normal Thromboplastin 28.2 (aPTT) Performed By: #### 5902-2, 3173-2 #### [facility] [address] [place], [place] OR NURSING Observed: 09/26/2018 Status: C Source: [facility] REPOSITORY [facility] OR Nursing Record Summary Primary Physician: Mariano Moreno MD Finalized Date/Time: 09/28/18 16:00:27 Pt. Name: LOVE PHELAN Erinn WongB./Sex: 1945 Male Med Rec #: [id number] Physician: Jose F Nagel MD Financial #: [id number] Pt. Type: I Room/Bed: [address] [place] [address] Admit/Disch: 09/21/18 05:02:00 - Institution: [facility] Case Times Entry 1 Patient Times Patient In Room 09/26/18 07:30:00 Patient Out Room 09/26/18 14:12:00 Surgical Times Start Time 09/26/18 08:57:00 Stop Time 09/26/18 13:55:00 Last Modified By: Reyna Rodriguez RN 09/26/18 14:15:41 [facility] Case Attendees Entry 1 Entry 2 Entry 3 Case Attendee Berry AMBRIZ , Mariano Espino MD , Zachary AMBROCIO, Akira Mcghee Role Performed Primary Surgeon Anesthesiologist PA Wash Tub Machine Operator Time In 09/26/18 07:30:00 09/26/18 07:30:00 09/26/18 [...] , Ramona Goff Role Performed First Scrub Laboratory Animal Caretaker RN Time In 09/26/18 07:30:00 09/26/18 07:30:00 [...] Reyna Dumont Case, Attendee Other Role Performed oil prospecting observer Lozenge Maker Helper Time In 09/26/18 07:30:00 09/26/18 07:30:00 Time Out 09/26/18 14:12:00 09/26/18 14:12:00 Procedure Repair or Replace Valve Repair or Replace Valve Mitral Min Invas(Left) Mitral Min Invas(Left) Attendee Comment [employer] Relief Reason Last Modified By: Reyna Rodriguez RN, RN, Emily A 09/26/18 14:15:42 09/26/18 14:15:42 [facility] General Case Portfolio Accountant 1 OR CO EHC 01 ASA Class [...] the Operative Report. Sarah FLANAGANN, RN, nurse assurance auditor [facility] Catheters, Drains,Tubes Entry 1 Entry 2 Entry 3 Device Type CATH BARD SPENCE TRAY DRAIN CHANNEL ROUND DRAIN CHANNEL ROUND 16FR TEMP SEN W/URINE 24FR [id number] 24FR [id number] METER [id number] Present on Arrival? No No No Location Bladder CHEST CHEST Inserted By Rommel DHALIWAL , Ramona Moreno MD , Mariano Moreno MD , Mariano Comments DC'd at End of Case? No No No DC'd By Last Modified By: Reyna Rodriguez RN, RN , Reyna Goldsmith RN 09/26/18 08:29:54 09/26/18 12:42:01 09/26/18 12:42:01 Entry 4 Device Type DRAIN CHANNEL ROUND 24FR [id number] Present on Arrival? No Location CHEST Inserted By Berry AMBRIZ , Mariano Comments DC'd at End of Case? No DC'd By Last Modified By: Reyna Rodriguez RN 09/26/18 13:25:00 [facility] Patient Positioning Entry 1 Skin Condition [...] By: Reyna Rodriguez RN 09/26/18 08:31:01 [facility] Skin Prep Entry 1 Hair Removal Method None Skin Prep Prep Agents Betadine with Alcohol Prep Site chin to knees Prep by Ramona Carney RN Procedure Repair or Replace Valve Mitral Min Invas(Left) Last Modified By: Reyna Rodriguez RN 09/26/18 08:31:33 [facility] Fire Risk Assessment Entry 1 Alcohol [...] 02 (less than 30% when able) [facility] Surgical Safety Checklist Entry 1 TIme [...] By: Reyna Rodriguez RN 09/26/18 09:06:31 [facility] Cautery Entry 1 Entry 2 Cautery [...] 09/26/18 08:32:30 09/26/18 12:41:43 09/26/18 12:41:43 [facility] Implants Entry 1 Procedure Repair or Replace Valve Implant/Explant Implant Mitral Min Invas(Left) Provided by Surgeon No Implant Identification Description VALVE MITRAL [id number] Small Stock Facer [employer] 27MM CINCH MILLER [id number] Catalog Number [id number] Lot Number N/A Serial Number [id number] Implant Site HEART Quantity 1 Expiration Date 03/02/21 No Expiration Date No Tissue Tissue Implanted Yes Material Used to 0.9% SODIUM CHLORIDE Prepare/Process IRRIGATION [id number] Tissue [employer] BRAND USED FOR SALINE RINSE [id number] EXP 07/2021 Processed By: Ramona Carney RN [...] 09/26/18 08:32:50 09/26/18 13:43:04 09/26/18 13:43:04 [facility] Dressing/Packing Entry 1 Dressing Dressing/Packing eye pad/tegaderm to Dressing/Packing groins/central line Type groins. Site biopatch/tegaderm to central line Last Modified By: Reyna Rodriguez RN 09/26/18 09:05:11 [facility] Temperature Regulation Entry 1 Device CO UNIT LEFTY HUGGER Unit ID n/a Site tube warmer Warm blankets, Warm fluids Last Modified By: Reyna Rodriguez RN 09/26/18 09:06:44 [facility] Final Count Entry 1 Sponges Correct Yes Sharps/Miscellaneous Yes Correct Instruments Correct Yes Count Performed with Asha Ivan RN Performing Count Reyna Rodriguez RN Surgeon Notified of Yes Count X-ray Taken No Procedure Repair or Replace Valve Mitral Min Invas(Left) Last Modified By: Reyna Rodriguez RN 09/26/18 13:43:16 [facility] PNDS Risk of Impaired Skin Entry [...] Modified By: Reyna Rodriguez RN 09/26/18 09:07:08 [facility] PNDS Risk of Infection Entry 1 INTERVENTIONS/ACTIVI [...] By: Reyna Rodriguez RN 09/26/18 09:07:11 [facility] PNDS Risk of Injury Entry 1 [...] By: Reyna Rodriguez RN 09/26/18 09:07:16 [facility] Patient Debriefing Entry 1 Patient Debriefing [...] mEq/L INC) Sodium POCT Normal 139 LAB 05379-1(L -2.0-3.0 mMol/L OINC) Low Base Excess POCT -4.9 LAB 2708-6(LO 95.0-99.0 % INC) O2 Saturation Arterial High POCT 99.9 LAB 01194-1(L 1.12-1.32 mMol/L OINC) Calcium Ionized POCT Normal 1.18 LAB 20842-4(L 39-49 % OINC) Low Hematocrit POCT 30 LAB 89591-6(L 70-110 mg/dL OINC) Glucose POCT High 224 LAB 2026-3(LO 22.0-29.0 mMol/L INC) Low Total CO2 Arterial POCT 20.3 LAB 2703-7(LO 83-108 mmHg INC) pO2 Arterial POCT High 233 LAB 16700-3(L 3.5-5.0 mEq/L OINC) Potassium POCT Normal 5.0 LAB 73435-5(L 94.0-99.0 % OINC) O2 Hemoglobin POCT Normal 98.2 LAB 67665-7(L % OINC) Carboxyhemoglobin POCT Normal 1.1 Result Comment: NON SMOKERS <1.5% SMOKERS 1.5 - 9.0% LAB 57225-0(LOINC) FiO2 POCT Normal 100.0 LAB 17456-2(LOINC) Sample Type POCT Normal Arterial LAB 718-7(LOINC) 13.5-1 gm/dL Low 7.5 Hemoglobin POCT 9.7 LAB 85198-1(LOINC) 10.0-2 mEq/L 0.0 Anion Gap POCT Normal 15.0 LAB 47706-5(LOINC) VOL% O2 Content POCT Normal 13.9 LAB 19954-7(LOINC) 21.0-2 mMol/ 8.0 L HCO3 Arterial Normal POCT 21.2 LAB 2614-6(LOINC) 0.2-0. % 6 Methemoglobin Normal POCT 0.5 LAB 63226-0(LOINC) 0.5-1. mMol/ High 6 L Lactate POCT 4.1 LAB 2744-1(LOINC) 7.35-7 Low .45 Blood Gas pH Arterial POCT 7.30 Result Comment: A result of UNABLE indicates the actual value could not be calculated. Treatment ranges and critical values established by Patient Care Services. All follow-up actions were taken by Patient Care Services. LAB 2075-0(LOINC) 98-106 mEq/L Normal Chloride POCT 103 Performed By: #### [id number] #### POINT OF CARE BLOOD GAS POCT ABG Collected: 09/26/2018 Status: F Source: [place] [facility] LACTATE 12:51 [facility] REPOSITORY TYPE CODE TESTS RESULT OUT OF REFERENCE UNITS RANGE LAB 2614-6(LO 0.2-0.6 % INC) Methemoglobin POCT Normal 0.3 LAB 2708-6(LO 95.0-99.0 % INC) O2 Saturation Arterial High POCT 99.8 LAB 84830-4(L 3.5-5.0 mEq/L OINC) Potassium POCT High 5.1 LAB 33580-2(L % OINC) Carboxyhemoglobin POCT Normal 1.1 Result Comment: NON SMOKERS <1.5% SMOKERS 1.5 - 9.0% LAB 99076-7(LOINC) 94.0-99.0 % O2 Normal Hemoglobin POCT 98.5 LAB 55407-0(LOINC) 1.12-1.32 mMol/L Low Calcium Ionized 0.97 POCT LAB 89472-0(LOINC) 21.0-28.0 mMol/L HCO3 Low Arterial POCT 19.2 LAB 2951-2(LOINC) 136-146 mEq/L Normal Sodium POCT 141 LAB 36377-8(LOINC) 0.5-1.6 mMol/L High Lactate POCT 4.3 LAB 15193-9(LOINC) 70-110 mg/dL High Glucose POCT 220 LAB 02590-2(LOINC) 10.0-20.0 mEq/L Anion Normal Gap POCT 19.8 LAB 2703-7(LOINC) 83-108 mmHg pO2 High Arterial POCT 193 LAB 718-7(LOINC) 13.5-17.5 gm/dL Low Hemoglobin POCT 8.4 LAB 6-3(LOINC) 22.0-29.0 mMol/L Total Low CO2 Arterial 18.9 POCT LAB 14238-4(LOINC) 39-49 % Low Hematocrit POCT 26 LAB 2018-8(LOINC) 32-48 mmHg pCO2 Normal Arterial POCT 44 LAB 16490-3(LOINC) -2.0-3.0 mMol/L Base Low Excess POCT -7.6 LAB 99245-7(LOINC) FiO2 Normal POCT 100.0 LAB 2075-0(LOINC) 98-106 mEq/L Normal Chloride POCT 102 LAB 51782-8(LOINC) Normal Sample Type Arterial POCT LAB 2744-1(LOINC) 7.35-7.45 Blood Low Gas pH Arterial 7.25 POCT Result Comment: A result of UNABLE indicates the actual value could not be calculated. Treatment ranges and critical values established by Patient Care Services. All follow-up actions were taken by Patient Care Services. LAB 18677-6(LOINC) VOL% Normal O2 Content POCT 12.1 Performed By: #### [id number] #### POINT OF CARE BLOOD GAS POCT ABG Collected: 09/26/2018 Status: F Source: [facility] 12:[facility] REPOSITORY TYPE CODE TESTS RESULT OUT OF RANGE REFERENCE UNITS LAB 84092-1(LO 10.0-20.0 mEq/L INC) Normal Anion Gap POCT [...] 136-146 mEq/L Sodium POCT Normal 140 LAB 23558-4(LOINC) 70-110 mg/dL Glucose POCT High 261 LAB 2703-7(LOINC) 83-108 mmHg pO2 Arterial POCT High 143 LAB 04064-7(LOINC) 0.5-1.6 mMol/L Lactate POCT High 3.2 LAB 19074-3(LOINC) Sample Type POCT Normal Arterial LAB 97981-8(LOINC) VOL% O2 Content POCT Normal 12.3 LAB 6-3(LOINC) 22.0-29.0 mMol/L Total CO2 Arterial Normal POCT 22.7 LAB 58762-2(LOINC) 1.12-1.32 mMol/L Calcium Ionized POCT Low 1.05 LAB 2708-6(LOINC) 95.0-99.0 % O2 Saturation High Arterial POCT 99.3 LAB 5-0(LOINC) 98-106 mEq/L Chloride POCT Normal 102 LAB 98417-2(LOINC) FiO2 POCT Normal 100.0 LAB 15264-6(LOINC) 94.0-99.0 % O2 Hemoglobin POCT Normal 97.6 LAB 2019-(LOINC) 32-48 mmHg pCO2 Arterial POCT Normal 42 LAB 718-7(LOINC) 13.5-17.5 gm/dL Hemoglobin POCT Low 8.7 LAB 87535-6(LOINC) 39-49 % Hematocrit POCT Low 27 LAB 31276-3(LOINC) 21.0-28.0 mMol/L HCO3 Arterial POCT Normal 23.8 LAB 89752-6(LOINC) % Carboxyhemoglobin Normal POCT 1.2 Result Comment: NON SMOKERS <1.5% SMOKERS 1.5 - 9.0% LAB 61265-8(LOINC) -2.0-3.0 mMol/L Normal Base Excess POCT -1.6 LAB 25395-3(LOINC) 3.5-5.0 mEq/L Normal Potassium POCT 4.9 Performed By: #### [id number] #### POINT OF CARE BLOOD GAS POCT Collected: 09/26/2018 Status: F Source: [place] ELECTROLYTES ARTERIAL 11:41 AM [facility]) REPOSITORY TYPE CODE TESTS RESULT OUT OF REFERENCE UNITS RANGE LAB 42535-6(L OINC) FiO2 POCT Normal 100.0 LAB 10440-0(L OINC) Sample Type POCT Normal Arterial LAB 5-0(LO 98-106 mEq/L INC) Chloride POCT Normal 99 LAB 36679-3(L % OINC) Carboxyhemoglobin POCT Normal 0.8 Result Comment: NON SMOKERS <1.5% SMOKERS 1.5 - 9.0% LAB 2019-05(LOINC) 32-48 mmHg pCO2 Arterial Normal POCT 36 LAB 23766-1(LOINC) 3.5-5.0 mEq/L Potassium POCT High 6.1 LAB 77259-6(LOINC) 94.0-99.0 % O2 Hemoglobin Normal POCT 98.6 LAB 89114-3(LOINC) 1.12-1.32 mMol/L Calcium Ionized Normal POCT 1.18 LAB 2614-6(LOINC) 0.2-0.6 % Methemoglobin High POCT 0.8 LAB 84392-8(LOINC) 21.0-28.0 mMol/L HCO3 Arterial Normal POCT 24.6 LAB 25161-2(LOINC) VOL% O2 Content POCT Normal 13.0 LAB 2951-2(LOINC) 136-146 mEq/L Sodium POCT Normal 137 LAB 03478-4(LOINC) 70-110 mg/dL Glucose POCT High 320 LAB 718-7(LOINC) 13.5-17.5 gm/dL Low Hemoglobin POCT 8.6 LAB 85378-8(LOINC) 10.0-20.0 mEq/L Anion Gap POCT Normal 13.3 [...] mmHg High pO2 Arterial POCT 371 LAB 77364-2(LOINC) 39-49 % Low Hematocrit POCT 27 LAB 2708-6(LOINC) 95.0-99.0 % High O2 Saturation Arterial POCT 100.2 LAB 78580-1(LOINC) -2.0-3.0 mMol/L Base Normal Excess POCT 0.7 Performed By: #### CD:[id number] #### POINT OF CARE BLOOD GAS POCT Collected: 09/26/2018 Status: F Source: [place] ELECTROLYTES ARTERIAL 11:30 AM [facility] (UPLOADED) REPOSITORY TYPE CODE TESTS RESULT OUT OF REFERENCE UNITS RANGE LAB 2019-8(LO 32-48 mmHg INC) pCO2 Arterial POCT Normal 35 LAB 82347-1(L -2.0-3.0 mMol/L OINC) Low Base Excess POCT -2.2 LAB 10638-6(L % OINC) Carboxyhemoglobin POCT Normal 0.8 Result Comment: NON SMOKERS <1.5% SMOKERS 1.5 - 9.0% LAB 59075-3(LOINC) 10.0-20.0 mEq/L Normal Anion Gap POCT 13.5 LAB 2744-1(LOINC) 7.35-7.45 Normal Blood Gas pH Arterial POCT 7.41 Result Comment: A result of UNABLE indicates the actual value could not be calculated. Treatment ranges and critical values established by Patient Care Services. All follow-up actions were taken by Patient Care Services. LAB 05588-6(LOINC) VOL% O2 Content Normal POCT 13.3 LAB 46150-3(LOINC) 3.5-5 mEq/L .0 Potassium POCT High 6.7 LAB 13587-0(LOINC) 94.0- % 99.0 O2 Hemoglobin Normal POCT 98.6 LAB 84302-9(LOINC) Sample Type Normal POCT Arterial LAB 2708-6(LOINC) 95.0- % 99.0 O2 Saturation High Arterial POCT 100.2 LAB 2951-2(LOINC) 136-1 mEq/L Low 46 Sodium POCT 135 LAB 2614-6(LOINC) 0.2-0 % .6 Methemoglobin High POCT 0.8 LAB 718-7(LOINC) 13.5- gm/dL Low 17.5 Hemoglobin POCT 8.9 LAB 03493-0(LOINC) 21.0- mMol/L 28.0 HCO3 Arterial Normal POCT 22.1 LAB 97890-9(LOINC) 39-49 % Low Hematocrit POCT 27 LAB 2075-0(LOINC) 98-10 mEq/L 6 Chloride POCT Normal 99 LAB 2703-7(LOINC) 83-10 mmHg 8 pO2 Arterial High POCT 365 LAB 6-3(LOINC) 22.0- mMol/L Low 29.0 Total CO2 Arterial POCT 20.9 LAB 16887-6(LOINC) 70-11 mg/dL 0 Glucose POCT High 334 LAB 06586-0(LOINC) 1.12- mMol/L Low 1.32 Calcium Ionized POCT 1.00 LAB 89553-0(LOINC) FiO2 POCT Normal 100.0 Performed By: #### CD:[id number] #### POINT OF CARE BLOOD GAS POCT ABG Collected: 09/26/2018 Status: F Source: [facility] LACT[facility] 11:15 [facility] ([facility]AD[facility] REPOSITORY TYPE CODE TESTS RESULT OUT OF REFERENCE UNITS RANGE LAB 2703-7(LO 83-108 mmHg INC) pO2 Arterial POCT High 375 LAB 89163-3(L 10.0-20.0 mEq/L OINC) Anion Gap POCT Normal 11.8 LAB 92052-5(L VOL% OINC) O2 Content POCT Normal 13.3 LAB 2951-2(LO 136-146 mEq/L INC) Sodium POCT Normal 138 LAB 2614-6(LO 0.2-0.6 % INC) Methemoglobin POCT High 0.7 LAB 96753-5(L OINC) FiO2 POCT Normal 85.0 LAB 2019-8(LO 32-48 mmHg INC) pCO2 Arterial POCT Normal 35 LAB 02317-5(L % OINC) Carboxyhemoglobin POCT Normal 1.1 Result Comment: NON SMOKERS <1.5% SMOKERS 1.5 - 9.0% LAB 76689-8(LOINC) 70-110 mg/dL High Glucose POCT 304 LAB 2708-6(LOINC) 95.0-99.0 % O2 High Saturation 100.0 Arterial POCT LAB 6-3(LOINC) 22.0-29.0 mMol/L Total Normal CO2 Arterial 24.9 POCT LAB 68744-6(LOINC) Normal Sample Type Arterial POCT LAB 2075-0(LOINC) 98-106 mEq/L Normal Chloride POCT 100 LAB 2744-1(LOINC) 7.35-7.45 Blood High Gas pH Arterial 7.49 POCT Result Comment: A result of UNABLE indicates the actual value could not be calculated. Treatment ranges and critical values established by Patient Care Services. All follow-up actions were taken by Patient Care Services. LAB 39594-7(LOINC) 21.0-28.0 mMol/L HCO3 Normal Arterial POCT 26.6 LAB 64143-2(LOINC) -2.0-3.0 mMol/L Base High Excess POCT 3.2 LAB 82675-0(LOINC) 0.5-1.6 mMol/L High Lactate POCT 2.7 LAB 85429-5(LOINC) 94.0-99.0 % O2 Normal Hemoglobin POCT 98.5 LAB 21916-7(LOINC) 39-49 % Low Hematocrit POCT 27 LAB 85328-8(LOINC) 1.12-1.32 mMol/L Low Calcium Ionized POCT 1.02 LAB 62547-6(LOINC) 3.5-5.0 mEq/L High Potassium POCT 7.1 LAB 718-7(LOINC) 13.5-17.5 gm/dL Low Hemoglobin POCT 8.9 Performed By: #### [id number] #### POINT OF CARE BLOOD GAS POCT ABG Collected: 09/26/2018 Status: F Source: [facility] LACT[facility] 11:10 [facility] ([facility]AD[facility] REPOSITORY TYPE CODE TESTS RESULT OUT OF RANGE REFERENCE UNITS LAB 2075-0(HANY 98-106 mEq/L NC) Chloride Normal POCT 100 LAB 57668-4(LO 70-110 mg/dL INC) High Glucose POCT 300 LAB 46419-3(LO 0.5-1.6 mMol/L INC) High Lactate POCT 2.8 LAB 2019-8(HANY 32-48 mmHg NC) Low pCO2 Arterial POCT 31 LAB 86428-0(LO 10.0-20.0 mEq/L INC) Anion Normal Gap POCT 12.3 LAB 61453-2(LO 3.5-5.0 mEq/L INC) High Potassium POCT 7.1 LAB 87933-3(LO -2.0-3.0 mMol/L INC) Low Base Excess POCT -3.8 LAB 20605-8(LO 39-49 % INC) Low Hematocrit POCT 28 LAB 14938-8(LO INC) FiO2 Normal POCT 100.0 LAB 2951-2(HANY 136-146 mEq/L NC) Low Sodium POCT 133 LAB 91738-4(LO VOL% INC) O2 Normal Content POCT 13.7 LAB 2744-1(HANY 7.35-7.45 NC) Blood Normal Gas pH Arterial 7.42 POCT Result Comment: A result of UNABLE indicates the actual value could not be calculated. Treatment ranges and critical values established by Patient Care Services. All follow-up actions were taken by Patient Care Services. LAB 33094-4(LOINC) 1.12-1.32 mMol/L Calcium Ionized POCT Normal 1.15 LAB 22965-5(LOINC) 94.0-99.0 % O2 Hemoglobin POCT Normal 98.8 LAB 2614-6(LOINC) 0.2-0.6 % Methemoglobin POCT High 0.7 LAB 2026-3(LOINC) 22.0-29.0 mMol/L Total CO2 Arterial Low POCT 19.0 LAB 2708-6(LOINC) 95.0-99.0 % O2 Saturation High Arterial POCT 100.2 LAB 718-7(LOINC) 13.5-17.5 gm/dL Hemoglobin POCT Low 9.1 LAB 69628-6(LOINC) 21.0-28.0 mMol/L HCO3 Arterial POCT Low 20.1 LAB 54374-9(LOINC) Sample Type POCT Normal Arterial LAB 64914-6(LOINC) % Carboxyhemoglobin Normal POCT 0.8 Result Comment: NON SMOKERS <1.5% SMOKERS 1.5 - 9.0% LAB 2703-7(LOINC) 83-108 mmHg High pO2 Arterial POCT 395 Performed By: #### [id number] #### POINT OF CARE BLOOD GAS POCT Collected: 09/26/2018 Status: F Source: [place] ELECTROL[facility]TES ARTERIAL 10:46 AM [facility] (UPLOADED) REPOSITORY TYPE CODE TESTS RESULT OUT OF RANGE REFERENCE UNITS LAB 2703-7(HANY 83-108 mmHg NC) High pO2 Arterial POCT 470 LAB 2951-2(HANY 136-146 mEq/L NC) Low Sodium POCT 135 LAB 38121-4(LO 10.0-20.0 mEq/L INC) Anion Normal Gap POCT 11.4 LAB 57544-4(LO 39-49 % INC) Low Hematocrit POCT 27 LAB 22786-6(LO 94.0-99.0 % INC) High O2 Hemoglobin POCT 99.1 LAB 2744-1(HANY 7.35-7.45 NC) Blood Normal Gas pH Arterial 7.45 POCT Result Comment: A result of UNABLE indicates the actual value could not be calculated. Treatment ranges and critical values established by Patient Care Services. All follow-up actions were taken by Patient Care Services. LAB 2019-8(LOINC) 32-48 mmHg pCO2 Arterial POCT Low 31 LAB 68890-9(LOINC) FiO2 POCT Normal 100.0 LAB 74512-5(LOINC) VOL% O2 Content POCT Normal 13.5 LAB 2025-3(LOINC) 22.0-29.0 mMol/L Total CO2 Arterial Low POCT 20.4 LAB 2708-6(LOINC) 95.0-99.0 % O2 Saturation High Arterial POCT 100.4 LAB 2614-6(LOINC) 0.2-0.6 % Methemoglobin POCT Normal 0.5 LAB 2075-0(LOINC) 98-106 mEq/L Chloride POCT Normal 102 LAB 98698-2(LOINC) 70-110 mg/dL Glucose POCT High 264 LAB 25494-6(LOINC) Sample Type POCT Normal Arterial LAB 35732-1(LOINC) 21.0-28.0 mMol/L HCO3 Arterial POCT Normal 21.6 LAB 19259-1(LOINC) -2.0-3.0 mMol/L Base Excess POCT Normal -1.9 LAB 04390-2(LOINC) 3.5-5.0 mEq/L Potassium POCT High 6.7 LAB 16413-6(LOINC) 1.12-1.32 mMol/L Calcium Ionized POCT Low 0.90 LAB 718-7(LOINC) 13.5-17.5 gm/dL Hemoglobin POCT Low 8.7 LAB 57954-7(LOINC) % Carboxyhemoglobin Normal POCT 0.8 Result Comment: NON SMOKERS <1.5% SMOKERS 1.5 - 9.0% Performed By: #### CD:[id number] #### POINT OF CARE PREOP NURSING Observed: 09/26/2018 Status: F Source: [place] 10:30 AM [facility] REPOSITORY [facility] PreOp Nursing Record Summary Primary Physician: Mariano Moreno MD Finalized Date/Time: 09/26/18 08:24:50 Pt. Name: LOVE PHELAN/Sex: 1945 Male Med Rec #: [id number] Physician: Jose F Nagel MD Financial #: [id number] Pt. Type: I Room/Bed: / Admit/Disch: 09/21/18 05:02:00 - Institution: [facility] PreOp Case Times Entry 1 PreOp Case Times In Room Time 09/26/18 05:37:00 Out Room Time 09/26/18 07:29:00 Last Modified By: Reyna Rodriguez RN 09/26/18 08:24:44 [facility] PreOp Case Attendees Entry 1 Case Attendee Anat Bueno RN Role Performed RN Last Modified By: Anat Bueno RN 09/26/18 05:38:13 Finalized By: Reyna Rodriguez RN Document Signatures Signed By: Reyna Rodriguez RN 09/26/18 08:24 BLOOD GAS POCT Collected: 09/26/2018 Status: F Source: [place] ELECTROLYTES ARTERIAL 10:25 AM [facility] (U[facility]OADED) [...] O2 Saturation High Arterial POCT 100.4 LAB 57515-8(LOINC) 3.5-5.0 mEq/L Potassium POCT High 6.3 LAB 32497-2(LOINC) 94.0-99.0 % O2 Hemoglobin POCT Normal 98.7 LAB 54408-3(LOINC) 1.12-1.32 mMol/L Calcium Ionized POCT Low 0.93 LAB 12122-0(LOINC) 21.0-28.0 mMol/L HCO3 Arterial POCT Normal 22.6 LAB 50937-2(LOINC) -2.0-3.0 mMol/L Base Excess POCT Normal -1.5 LAB 46088-7(LOINC) FiO2 POCT Normal 100.0 LAB 25871-5(LOINC) 70-110 mg/dL Glucose POCT High 258 LAB 2951-2(LOINC) 136-146 mEq/L Sodium POCT Normal 136 LAB 2703-7(LOINC) 83-108 mmHg pO2 Arterial POCT High 520 LAB 10164-7(LOINC) VOL% O2 Content POCT Normal 13.2 LAB 718-7(LOINC) 13.5-17.5 gm/dL Hemoglobin POCT Low 8.5 LAB 2614-6(LOINC) 0.2-0.6 % Methemoglobin POCT High 0.8 LAB 2019-8(LOINC) 32-48 mmHg pCO2 Arterial POCT Normal 35 LAB 05245-6(LOINC) 39-49 % Hematocrit POCT Low 26 LAB 83591-6(LOINC) 10.0-20.0 mEq/L Anion Gap POCT Normal 11.1 LAB 2025-3(LOINC) 22.0-29.0 mMol/L Total CO2 Arterial Low POCT 21.5 LAB 39190-5(INC) Sample Type POCT Normal Arterial LAB 5-0(LOINC) 98-106 mEq/L Chloride POCT Normal 102 LAB 87382-4(INC) % Carboxyhemoglobin Normal POCT 0.9 Result Comment: NON SMOKERS <1.5% SMOKERS 1.5 - 9.0% Performed By: #### CD:[id number] #### POINT OF CARE BLOOD GAS POCT ABG Collected: 09/26/2018 Status: F Source: [facility] LACTATE 10:02 [facility] (UPLOAD) REPOSITORY TYPE CODE TESTS RESULT OUT OF REFERENCE UNITS RANGE LAB 98975-7(L 10.0-20.0 mEq/L OINC) Anion Gap POCT Normal 11.2 LAB 02798-1(L 21.0-28.0 mMol/L OINC) Low HCO3 Arterial POCT 20.6 LAB 27793-4(L -2.0-3.0 mMol/L OINC) Low Base Excess POCT -4.4 LAB 47146-8(L % OINC) Carboxyhemoglobin POCT Normal 0.9 Result Comment: NON SMOKERS <1.5% SMOKERS 1.5 - 9.0% LAB 79494-5(LOINC) 70-110 mg/dL Glucose High POCT 236 LAB 2703-7(LOINC) 83-108 mmHg pO2 High Arterial POCT 490 LAB 87777-4(LOINC) 0.5-1.6 mMol/L Lactate Normal POCT 1.1 LAB 718-7(LOINC) 13.5-17.5 gm/dL Low Hemoglobin POCT 8.8 LAB 2074-0(LOINC) 98-106 mEq/L Chloride Normal POCT 104 LAB 2018-8(LOINC) 32-48 mmHg pCO2 Normal Arterial POCT 37 LAB 76670-0(LOINC) FiO2 Normal POCT 100.0 LAB 73800-5(LOINC) 39-49 % Low Hematocrit POCT 27 LAB 2025-3(LOINC) 22.0-29.0 mMol/L Low Total CO2 Arterial POCT 19.7 LAB 29516-2(LOINC) 3.5-5.0 mEq/L High Potassium POCT 5.2 LAB 2744-1(LOINC) 7.35-7.45 Blood Normal Gas pH Arterial POCT 7.36 Result Comment: A result of UNABLE indicates the actual value could not be calculated. Treatment ranges and critical values established by [facility]. All follow-up actions were taken by [facility]. LAB 20689-0(LOINC) VOL% O2 Content Normal POCT 13.6 LAB 2614-6(LOINC) 0.2-0 % .6 Methemoglobin High POCT 1.0 LAB 17884-3(LOINC) Sample Type Normal POCT Arterial LAB 2951-2(LOINC) 136-1 mEq/L 46 Sodium POCT Normal 136 LAB 36098-4(LOINC) 1.12- mMol/L Low 1.32 Calcium Ionized POCT 0.98 LAB 2708-6(LOINC) 95.0- % 99.0 O2 Saturation High Arterial POCT 100.3 LAB 32664-1(LOINC) 94.0- % 99.0 O2 Hemoglobin Normal POCT 98.3 Performed By: #### [id number] #### POINT OF CARE BLOOD GAS POCT ABG Collected: 09/26/2018 Status: F Source: [facility] REPOSITORY TYPE CODE TESTS RESULT OUT OF REFERENCE UNITS RANGE LAB 2019-8(LO 32-48 mmHg INC) pCO2 Arterial POCT Normal 41 LAB 2703-7(LO 83-108 mmHg INC) pO2 Arterial POCT High 211 LAB 85287-1(L 21.0-28.0 mMol/L OINC) HCO3 Arterial POCT Normal 22.1 LAB 82506-5(L 3.5-5.0 mEq/L OINC) Potassium POCT Normal 4.9 LAB 01149-6(L 94.0-99.0 % OINC) O2 Hemoglobin POCT Normal 97.7 LAB 83632-3(L 39-49 % OINC) Hematocrit POCT Low 27 LAB 2026-3(LO 22.0-29.0 mMol/L INC) Total CO2 Arterial Low POCT 21.1 LAB 2708-6(LO 95.0-99.0 % INC) O2 Saturation Arterial High POCT 99.7 LAB 09608-3(L 70-110 mg/dL OINC) Glucose POCT High 210 LAB 12260-7(L OINC) Sample Type POCT Normal Arterial LAB 2075-0(LO 98-106 mEq/L INC) Chloride POCT Normal 105 LAB 19906-7(L % OINC) Carboxyhemoglobin POCT Normal 1.0 Result Comment: NON SMOKERS <1.5% SMOKERS 1.5 - 9.0% LAB 2744-1(LOINC) 7.35-7.45 Blood Low Gas pH Arterial POCT 7.34 Result Comment: A result of UNABLE indicates the actual value could not be calculated. Treatment ranges and critical values established by [facility]. All follow-up actions were taken by [facility]. LAB 75560-8(LOINC) VOL% O2 Content POCT Normal 12.8 LAB 15789-0(LOINC) 1.12-1 mMol/L Low .32 Calcium Ionized POCT 1.04 LAB 2951-2(LOINC) 136-14 mEq/L 6 Sodium POCT Normal 138 LAB 17243-0(LOINC) 0.5-1. mMol/L 6 Lactate POCT Normal 0.6 LAB 78236-7(LOINC) -2.0-3 mMol/L Low .0 Base Excess POCT -3.4 LAB 07933-1(LOINC) FiO2 POCT Normal 100.0 LAB 2614-6(LOINC) 0.2-0. % High 6 Methemoglobin POCT 0.9 LAB 718-7(LOINC) 13.5-1 gm/dL Low 7.5 Hemoglobin POCT 8.9 LAB 13535-4(LOINC) 10.0-2 mEq/L 0.0 Anion Gap POCT Normal 11.1 Performed By: #### [id number] #### POINT OF CARE BLOOD GAS POCT ABG Collected: 09/26/2018 Status: F Source: [facility] REPOSITORY TYPE CODE TESTS RESULT OUT OF RANGE REFERENCE UNITS LAB 2019-8(HANY 32-48 mmHg NC) pCO2 Normal Arterial POCT 41 LAB 718-7(LOIN 13.5-17.5 gm/dL C) Low Hemoglobin POCT 10.5 LAB 48586-3(LO VOL% INC) O2 Normal Content POCT 14.0 LAB 34130-1(LO 0.5-1.6 mMol/L INC) Lactate Normal POCT 0.7 LAB 2744-1(HANY 7.35-7.45 NC) Blood Normal Gas pH Arterial 7.36 POCT Result Comment: A result of UNABLE indicates the actual value could not be calculated. Treatment ranges and critical values established by Patient Care Services. All follow-up actions were taken by Patient Care Services. LAB 2075-0(LOINC) 98-106 mEq/L Chloride POCT Normal 106 LAB 87676-2(LOINC) 39-49 % Hematocrit POCT Low 32 LAB 46379-4(LOINC) FiO2 POCT Normal 21.0 LAB 2708-6(LOINC) 95.0-99.0 % O2 Saturation Low Arterial POCT 94.9 LAB 15270-1(LOINC) 3.5-5.0 mEq/L Potassium POCT Normal 4.4 LAB 2614-6(LOINC) 0.2-0.6 % Methemoglobin POCT Normal 0.4 LAB 43492-5(LOINC) Sample Type POCT Normal Arterial LAB 2951-2(LOINC) 136-146 mEq/L Sodium POCT Normal 139 LAB 37895-8(LOINC) 21.0-28.0 mMol/L HCO3 Arterial POCT Normal 22.9 LAB 34831-7(LOINC) 94.0-99.0 % O2 Hemoglobin POCT Low 93.6 LAB 96290-0(LOINC) 1.12-1.32 mMol/L Calcium Ionized POCT Normal 1.14 LAB 45994-6(LOINC) -2.0-3.0 mMol/L Base Excess POCT Low -2.5 LAB 2703-7(LOINC) 83-108 mmHg pO2 Arterial POCT Low 75 LAB 57650-2(LOINC) % Carboxyhemoglobin Normal POCT 0.9 Result Comment: NON SMOKERS <1.5% SMOKERS 1.5 - 9.0% LAB 34296-2(LOINC) 70-110 mg/dL High Glucose POCT 207 LAB 47797-1(LOINC) 10.0-20.0 mEq/L Normal Anion Gap POCT 10.5 LAB 2026-3(LOINC) 22.0-29.0 mMol/L Low Total CO2 Arterial POCT 21.5 Performed By: #### 33288-1a1 #### POINT OF CARE ANESTHESIA PREOPERATIVE Observed: 09/26/2018 Status: F Source: [facility] ASSESSMENT 7:15 AM [facility] SYSTEM REPOSITORY Patient: LOVE PHELAN MRN: [id number] Age: 73 years Sex: Male : 1945 [...] Intubation. Monitoring/Anesthesia Considerations: Arterial Line, Central Line, Hastings-Yajaira Catheter, Transesophageal echocardiography, One lung ventilation, Post-operative [...] RESULT OUT OF REFERENCE UNITS RANGE LAB 01622-6(LO 0.0-7.0 % INC) Normal Eosinophil 3.3 LAB 718-7(LOIN 13.5-17.5 gm/dL C) Low Hemoglobin 10.7 LAB 30688-0(LO 11.0-14.8 % INC) RDW Normal 14.1 LAB 56908-0(LO 0.0-12.0 % INC) Normal Monocyte 10.4 LAB 742-7(LOIN 0.00-0.90 thou/mcL C) Normal Monocyte 0.70 Absolute LAB 66112-7(LO 4.30-5.70 million/mcL INC) Low Red Blood Cell 3.81 Count LAB 43677-9(LO 22.0-44.0 % INC) Low Lymphocyte 18.1 LAB 731-0(LOIN 1.00-4.80 thou/mcL C) Normal Lymphocyte 1.20 Absolute LAB 19323-8(LO 32.0-36.0 gm/dL INC) MCHC Normal 33.6 LAB 69183-2(LO 4.6-10.2 thou/mcL INC) WBC Normal Count 6.8 LAB 61083-1(LO 40.0-70.0 % INC) Normal Neutrophil 67.5 LAB 12012-0(LO 27.0-34.0 Picograms INC) MCH Normal 28.0 LAB 751-8(LOIN 1.80-7.70 thou/mcL C) Normal Neutrophil 4.60 Absolute LAB 704-7(LOIN 0.00-0.20 thou/mcL C) Normal Basophil 0.10 Absolute LAB 52356-2(LO 80.0-97.0 FL INC) MCV Normal 83.4 LAB 58478-9(LO 6.2-12.1 FL INC) MPV Normal 9.1 LAB 35220-3(LO 0.0-2.0 % INC) Normal Basophil 0.7 LAB 711-2(LOIN 0.00-0.70 thou/mcL C) Normal Eosinophil 0.20 Absolute LAB 50963-3(LO 39.0-49.0 % INC) Low Hematocrit 31.7 LAB 87812-2(LO 142-424 thou/mcL INC) Normal Platelet Count 157 Performed By: #### 93473-9 #### [facility] [address], [place] PROTHROMBIN TIME Collected: 09/26/2018 Status: F Source: [place] 3:52 AM [facility] SYSTEM REPOSITORY TYPE CODE TESTS RESULT OUT OF RANGE REFERENCE UNITS LAB 83435-7(HANY NC) Normal INR 1.29 Result Comment: The recommended therapeutic INR range for most cardiac indications is 2.0-3.0. For high intensity therapy(ie.mechanical heart valves), the recommended range is 2.5-3.5. LAB 5902-2(LOINC) 9.3-12.4 Sec Prothrombin High Time (PT) 14.9 Performed By: #### 5902-2, 3173-2 #### [facility] [address] [place], [place] PARTIAL THROMBOPLASTIN Collected: 09/26/2018 Status: F [facility] AM [facility] RE[facility] TYPE CODE TESTS RESULT OUT OF REFERENCE UNITS RANGE LAB 79487-3(LO 23.6-35.3 Sec INC) Partial Normal Thromboplastin 31.9 (aPTT) Performed By: #### 5902-2, 3173-2 #### [facility] [address] [place] [address] MAGNESIUM LEVEL Collected: 09/26/2018 Status: F Source: [facility] 3:52 AM [facility] SYSTEM REPOSITORY TYPE CODE TESTS RESULT OUT OF RANGE REFERENCE UNITS LAB 79770-7(LO 1.8-2.5 mg/dL INC) Normal Magnesium Level 2.1 Performed By: #### 59789-6, 85213-2 #### [facility] [address] [place], [place] COMPREHENSIVE METABOLIC Collected: 09/26/2018 Status: F Source: [facility] PANEL 3:52 AM [facility] SYSTEM REPOSITORY TYPE CODE TESTS RESULT OUT OF RANGE REFERENCE UNITS LAB 95752-9(LO 8-20 mg/dL INC) High BUN 54 LAB 1920-8(HANY 15-41 Units/L NC) AST/SGOT Normal 29 LAB 53617-5(LO 6.0-18.0 mMol/L INC) Anion Gap Normal 8.0 LAB 2028-9(HANY 22-32 mMol/L NC) Carbon Normal Dioxide Level 25 LAB 6768-6(HANY 32-91 Units/L NC) Alkaline Normal Phosphatase 69 LAB 2951-2(HANY 136-145 mMol/L NC) Sodium Normal Level 138 LAB 2075-0(HANY 98-107 mMol/L NC) Chloride Normal Level 105 LAB 1742-6(HANY 14-63 Units/L NC) ALT/SGPT Normal 35 LAB 1751-7(HANY 3.5-4.8 gm/dL NC) Low Albumin Level 3.3 LAB 53775-1(LO 8.9-10.3 mg/dL INC) Low Calcium Total 8.5 LAB 38803-4(LO 70-110 mg/dL INC) Glucose Normal Level 75 LAB 2885-2(HANY 6.1-7.9 gm/dL NC) Protein Normal 6.8 LAB 2160-0(HANY 0.60-1.30 mg/dL NC) High Creatinine 1.46 LAB 1975-2(HANY 0.3-1.2 mg/dL NC) Bilirubin Normal Total 0.6 LAB 2823-3(HANY 3.6-5.1 mMol/L NC) Potassium Normal Level 3.7 Performed By: #### 58919-0, 68661-1 #### [facility] [address] [place], [place] GLUCOSE POCT Collected: 09/26/2018 Status: F [...] OPERATIVE/PROCEDURE REPORT Observed: 09/26/2018 Status: F [facility] 12:00 AM [facility] REPOSITORY DICTATED BY: MARIANO MORENO MD [...] D/09/26/2018 13:58:52 T/09/26/2018 19:00:01 VOICE JOB ID: [id number] Jed Velarde thanks you for the opportunity to care for your patient. DID: [id number] GLUCOSE POCT Collected: 09/25/2018 Status: F Source: [...] REPOSITORY BPOS Performed By: #### 882-1 #### [facility] [address] [place], [place] Observed: 09/25/2018 Status: F Source: [facility] ANTIBODY SCREEN 5:29 PM HEALTH SYSTEM INTERPRETATION REPOSITORY NEGATIVE Performed By: #### 49057-9 #### [facility] [address] [place], [place] GLUCOSE POCT Collected: 09/25/2018 Status: F [...] HEALTH SYSTEM REPOSITORY Patient: LOVE PHELAN MRN: [id number] Age: 73 years Sex: Male : 1945 Associated Diagnoses: None Author: Akira Oconnor Supervising Physician Comments Documentation By: Nurse Practitioner. Comments HPI: Mr. Aleman is a 73 year old male with past medical history significant for chronic ischemic heart disease s/p multivessel stenting in 2009, HTN, HLD, T2DM, CKD, and obesity who presented to [facility] on 09/21/18 with c/o shortness of breath. He was in [place] visiting family for the holidays when he [...] valve repair/replacement. Of note, pt lives in [place] and follows with his Prop Drawer there regularly. He had a routine office [...] (FRESH FROZEN Collected: 09/25/2018 Status: F Source: [employer] PLASMA) ORDER 3:39 PM HEALTH SYSTEM REPOSITORY Order Comment: Please hold 2 units of FFP for OR on 09/26 TYPE CODE TESTS RESULT OUT OF RANGE REFERENCE UNITS LAB 1035-5(LOIN C) Normal Fresh NOTNEED Frozen Plasma: PLATELET PRODUCT Collected: 09/25/2018 Status: F [facility] Order Comment: Please hold 1 unit of platelets for OR on 09/26 TYPE CODE TESTS RESULT OUT OF REFERENCE UNITS RANGE LAB 67508-5(LO INC) Platelet Normal Concentrate NOTNEED GLUCOSE POCT [...] HEALTH SYSTEM REPOSITORY Patient: LOVE PHELAN MRN: [id number] Age: 73 years Sex: Male : 1945 [...] back to lisinopril/HCTZ soon. Mehdi Nayak MD [facility] Subjective Feeling OK today. No sob, [...] PROGRESS NOTES Observed: 09/25/2018 Status: F Source: [place] 10:10 AM [facility] SYSTEM REPOSITORY Patient: LOVE PHELAN MRN: [id number] Age: 73 years Sex: Male : 1945 Associated Diagnoses: None Author: Cristhian Hong DO Assessment Diagnosis/Impression/Plan: Mr Love Phelan is a 73-year-old male with past medical history to include CAD status post stents, hypertension, hyperlipidemia, insulin-dependent diabetes, newly diagnosed CKD stage III, who prese nts to [facility] 09/21/2018 for dyspnea Interval workup notable for [...] regurgitation precipitating respiratory failure, with planned disposition [facility] vs SNF Pending clinical trajectory and [...] PO, w/bkfst+din cyanocobalamin: 100 mcg, IM, Month (A52Mqbd) isosorbide mononitrate: 30 mg, PO, Daily oxygen: [...] mcg/ml injectable solution: 1 mL, IM, Month (V20Krig), Each, 0 Refill(s) glipiZIDE 10 mg oral [...] HEALTH SYSTEM REPOSITORY Patient: LOVE PHELAN MRN: [id number] Age: 73 years Sex: Male : 1945 Associated Diagnoses: None Author: Pedro Ibarra [facility] Cardiology Progress Note Subjective: Patient feeling fine. [...] Moderate left atrial enlargement Small PFO with iwwn-ub-ourbz shunt. No right to left shunting demonstrated [...] posterior flail -Severe MR -Small PFO with vurr-gj-pxksi shunt -Elevated troponin; 0.07. In setting of acute CHF, renal insufficiency of unknown chronicity, and underlying CAD. -Chronic ischemic heart disease; s/p ND and multivessel stenting 2009. He had negative [...] mcg = 0.1 mL, IM, Inject, Month (D28Jtri),, x 30 Day(s), 09/21/18 5:49:00 EST Last [...] RESULT OUT OF REFERENCE UNITS RANGE LAB 31799-5(LO 80.0-97.0 FL INC) MCV Normal 83.2 LAB 25297-4(LO 6.2-12.1 FL INC) MPV Normal 9.1 LAB 50394-3(LO 39.0-49.0 % INC) Low Hematocrit 31.3 LAB 711-2(LOIN 0.00-0.70 thou/mcL C) Normal Eosinophil 0.20 Absolute LAB 98248-2(LO 142-424 thou/mcL INC) Normal Platelet Count 147 LAB 52572-6(LO 0.0-12.0 % INC) Normal Monocyte 10.4 LAB 28947-1(LO 11.0-14.8 % INC) RDW Normal 14.3 LAB 718-7(LOIN 13.5-17.5 gm/dL C) Low Hemoglobin 10.6 LAB 26966-4(LO 40.0-70.0 % INC) Normal Neutrophil 64.5 LAB 73759-9(LO 0.0-2.0 % INC) Normal Basophil 0.9 LAB 731-0(LOIN 1.00-4.80 thou/mcL C) Normal Lymphocyte 1.20 Absolute LAB 18470-9(LO 32.0-36.0 gm/dL INC) MCHC Normal 33.9 LAB 23247-4(LO 4.30-5.70 million/mcL INC) Low Red Blood Cell 3.76 Count LAB 742-7(LOIN 0.00-0.90 thou/mcL C) Normal Monocyte 0.60 Absolute LAB 751-8(LOIN 1.80-7.70 thou/mcL C) Normal Neutrophil 3.90 Absolute LAB 12374-2(LO 27.0-34.0 Picograms INC) MCH Normal 28.2 LAB 25308-9(LO 4.6-10.2 thou/mcL INC) WBC Normal Count 6.0 LAB 704-7(LOIN 0.00-0.20 thou/mcL C) Normal Basophil 0.10 Absolute LAB 07256-3(LO 22.0-44.0 % INC) Low Lymphocyte 20.7 LAB 13141-8(LO 0.0-7.0 % INC) Normal Eosinophil 3.5 Performed By: #### 13602-2 #### [facility] [address] [place], [place] GFRAA Collected: 09/25/2018 Status: F Source: [place] 5:36 AM [facility] REPOSITORY TYPE CODE TESTS RESULT OUT OF RANGE REFERENCE UNITS LAB 28129-9(LO mL/min INC) GFR Normal Estimated 45 Result Comment: The MDRD equation has not been validated for those over 70 years, women, patients with serious co-morbid conditions, or with extremes of body size, muscle mass of nutritional status. Performed By: #### 87661-3, 14652-1t9, 47412-6, 51196-6 #### [facility] [address] [place], [place] GFRBB Collected: 09/25/2018 Status: F Source: [place] 5:36 AM [facility]ALTH SYSTEM REPOSITORY TYPE CODE TESTS RESULT OUT OF RANGE REFERENCE UNITS LAB 43740-5(LO mL/min INC) GFR Normal Estimated Non 38 Performed By: #### 55095-0, 12448-6v4, 38108-2, 50417-4 #### [facility] [address] [place], [place] MAGNESIUM LEVEL Collected: 09/25/2018 Status: F Source: [facility] 5:36 AM [facility] SYSTEM REPOSITORY TYPE CODE TESTS RESULT OUT OF RANGE REFERENCE UNITS LAB 21672-5(LO 1.8-2.5 mg/dL INC) Normal Magnesium Level 1.9 Performed By: #### 12842-1, 99333-7t7, 39309-6, 43310-1 #### [facility] [address] [place], [place] BASIC METABOLIC PANEL Collected: 09/25/2018 Status: F Source: [facility] 5:36 AM [facility] SYSTEM REPOSITORY TYPE CODE TESTS RESULT OUT OF RANGE REFERENCE UNITS LAB 2160-0(HANY 0.60-1.30 mg/dL NC) High Creatinine 1.79 LAB 2823-3(HANY 3.6-5.1 mMol/L NC) Normal Potassium Level 3.8 LAB 77145-4(LO 70-110 mg/dL INC) High Glucose Level 116 LAB 59571-3(LO 6.0-18.0 mMol/L INC) Anion Normal Gap 8.0 LAB 40866-8(LO 8.9-10.3 mg/dL INC) Low Calcium Total 8.5 LAB 27609-9(LO 8-20 mg/dL INC) High BUN 60 LAB 2951-2(HANY 136-145 mMol/L NC) Sodium Normal Level 137 LAB 2028-9(HANY 22-32 mMol/L NC) Carbon Normal Dioxide Level 25 LAB 2075-0(HANY 98-107 mMol/L NC) Chloride Normal Level 104 Performed By: #### 44007-5, 72611-0v4, 61850-4, 92365-9 #### [facility] [address] [place], [place] GLUCOSE POCT Collected: 09/25/2018 Status: F [...] HEALTH SYSTEM REPOSITORY Patient: LOVE PHELAN MRN: [id number] Age: 73 years Sex: Male : 1945 [...] back to lisinopril/HCTZ soon. Mehdi Nayak MD [facility] Subjective Feeling OK today. Had CT [...] GLUCOSE POCT Collected: 09/24/2018 Status: F Source: [employer] (UPLOADED) 1:10 PM HEALTH SYSTEM REPOSITORY TYPE [...] PELVIS W Observed: 09/24/2018 Status: F Source: [employer] AND/OR W/O CONTRAST 12:35 PM HEALTH SYSTEM [...] hilar lymph node. Hepatic steatosis and hepatomegaly. [place] thanks you for the opportunity to care for your patient. Workstation ID: [id number] - [id number] FINAL REPORT Dictated By: Dilan Saldana MD 09/24/2018 13:31 Assigned Physician: Dilan Saldana MD Reviewed and Electronically Signed By: Dilan Saldana MD 09/24/2018 14:03 Transcribed by: CATERINA 09/24/2018 13:48 Technologist: MAURICIO SAENZ PROGRESS NOTES Observed: 09/24/2018 Status: F Source: [place] 11:42 AM [facility] SYSTEM REPOSITORY Patient: LOVE PHELAN MRN: ([id number] Age: 73 years Sex: Male : 1945 Associated Diagnoses: None Author: Cristhian Hong DO Assessment Diagnosis/Impression/Plan: Mr Love Phelan is a 73-year-old male with past medical history to include CAD status post stents, hypertension, hyperlipidemia, insulin-dependent diabetes, newly diagnosed CKD stage III, who prese nts to [facility] 09/21/2018 for dyspnea Interval workup notable for [...] PO, w/bkfst+din cyanocobalamin: 100 mcg, IM, Month (O90Jjkb) isosorbide mononitrate: 30 mg, PO, Daily oxygen: [...] mcg/ml injectable solution: 1 mL, IM, Month (M71Nnif), Each, 0 Refill(s) glipiZIDE 10 mg oral [...] ALEMAN Date of 1945 E Patient Number [id number] Age 73 year(s) Visit Number [id number] Gender Male Room Number 2E41 Admission Status Inpatient Referring Christi Tang MD Shot Core Drill Operator Maco Hardin Physician RDCS Interpreting Christi Tang [...] CLAIRE Performed By: the attending and the compressed gases tester Type of Anesthesia: Moderate sedation Procedure Medications [...] or spontaneous echo contrast Small PFO with xmyj-ij-boshy shunt on color Doppler. No right to [...] the aorta Interatrial Septal Small PFO with lzvz-eq-laojd shunt on color Doppler. No right to [...] PROGRESS NOTES Observed: 09/24/2018 Status: C Source: [place] 9:42 AM [facility]ALTH SYSTEM REPOSITORY Patient: LOVE PHELAN MRN: [id number] Age: 73 years Sex: Male : 1945 Associated Diagnoses: None Author: Sarah Bryan CNP Supervising Physician Comments Documentation By: Nurse Practitioner. Comments HPI: Mr. Aleman is a 73 year old male with past medical history significant for chronic ischemic heart disease s/p multivessel stenting in 2009, HTN, HLD, T2DM, CKD, and obesity who presented to [facility] on 09/21/18 with c/o shortness of breath. He was in [place] visiting [facility] for the holidays when he noted right [...] right collaterals which is known since 2009. [facility] was asked to evaluate pt for mitral valve repair/replacement. Of note, pt lives in [place] and follows with his Prop Drawer there regularly. He had a routine office [...] GLUCOSE POCT Collected: 09/24/2018 Status: F Source: [place] (UPLOADED) 8:07 AM HEALTH SYSTEM REPOSITORY TYPE CODE TESTS RESULT OUT OF REFERENCE UNITS RANGE LAB 2340-8(LOIN 70-110 mg/dL C) High Glucose 300 POCT-LAB Result Comment: Treatment ranges and critical values established by Patient Care Services. All follow-up actions were taken by Patient Care Services. Performed By: #### 2430-8 #### [facility] POINT OF CARE CBC Collected: 09/24/2018 Status: F Source: [place] 7:28 AM HEALTH SYSTEM REPOSITORY TYPE CODE TESTS RESULT OUT OF REFERENCE UNITS RANGE LAB 66297-5(LO 6.2-12.1 FL INC) MPV Normal 9.3 LAB 63225-8(LO 32.0-36.0 gm/dL INC) MCHC Normal 33.5 LAB 75166-9(LO 39.0-49.0 % INC) Low Hematocrit 34.8 LAB 80693-2(LO 142-424 thou/mcL INC) Normal Platelet Count 146 LAB 23805-6(LO 27.0-34.0 Picograms INC) MCH Normal 27.9 LAB 03161-7(LO 11.0-14.8 % INC) RDW Normal 14.2 LAB 49902-7(LO 80.0-97.0 FL INC) MCV Normal 83.5 LAB 718-7(LOIN 13.5-17.5 gm/dL C) Low Hemoglobin 11.6 LAB 85176-9(LO 4.6-10.2 thou/mcL INC) WBC Normal Count 5.6 LAB 90150-5(LO 4.30-5.70 million/mcL INC) Low Red Blood Cell 4.16 Count Performed By: #### 05985-0 #### [place] [address] [place], [place] #### 1988-12 #### [place] [address] [place], [place] VITAMIN D 25 HYDROXY Collected: 09/24/2018 Status: F Source: [facility] 7:28 AM HEALTH SYSTEM REPOSITORY TYPE CODE TESTS RESULT OUT OF REFERENCE UNITS RANGE LAB 1988-3(LOIN 30.00-100.00 ng/mL C) Low Vitamin D 26.01 25-Hydroxy Level Result Comment: NEW METHOD AND INTERPRETIVE DATA Vitamin D Status Range ------ Deficiency <20 ng/mL(50 nmol/L) Insufficiency 20-30 ng/mL(50-75 nmol/L) Sufficiency 30-100 ng/mL(75-250 nmol/L) Toxicity >100 ng/mL (250 nmol/L) Performed By: #### 68472-7 #### [facility] [address] [place], [place] #### 1986-12 #### [facility] [address] [place], [place] RENAL FUNCTION PANEL Collected: 09/24/2018 Status: F Source: [place] 7:28 AM [facility] SYSTEM REPOSITORY TYPE CODE TESTS RESULT OUT OF RANGE REFERENCE UNITS LAB 2160-0(HANY 0.60-1.30 mg/dL NC) High Creatinine 1.53 LAB 1751-7(HANY 3.5-4.8 gm/dL NC) Albumin Normal Level 3.8 LAB 2951-2(HANY 136-145 mMol/L NC) Sodium Normal Level 136 LAB 2075-0(HANY 98-107 mMol/L NC) Chloride Normal Level 101 LAB 16325-9(LO 2.4-4.7 mg/dL INC) Normal Phosphorus Level 4.2 LAB 17425-5(LO 70-110 mg/dL INC) High Glucose Level 313 LAB 2823-3(HANY 3.6-5.1 mMol/L NC) Normal Potassium Level 4.3 LAB 53972-6(LO 8-20 mg/dL INC) High BUN 63 LAB 72086-0(LO 8.9-10.3 mg/dL INC) Calcium Normal Total 8.9 LAB 14058-2(LO 6.0-18.0 mMol/L INC) Anion Normal Gap 12.0 LAB 8-9(HANY 22-32 mMol/L NC) Carbon Normal Dioxide Level 23 Performed By: #### 70547-8, 2283-8, #### [facility] [address] [place], [place] FOLIC ACID LEVEL Collected: 09/24/2018 Status: F Source: [place] 7:28 AM [facility]ALTH SYSTEM REPOSITORY TYPE CODE [...] greater than 4 ng/ml Performed By: #### 98155-8, 2283-8, #### [facility] [address] [place], [place] VITAMIN B12 LEVEL Collected: 09/24/2018 Status: F Source: [place] 7:28 AM [facility] SYSTEM REPOSITORY TYPE CODE TESTS RESULT OUT OF REFERENCE UNITS RANGE LAB 2131-9(LOIN 180-914 Picogram/ml C) High Vitamin B12 1399 Level Performed By: #### 02379-5, 2284-8, 2132- 9 #### [facility] [address] [place], [place] PARATHYROID HORMONE Collected: 09/24/2018 Status: F Source: [facility] (PTH) INTACT 7:28 AM HEALTH SYSTEM REPOSITORY TYPE CODE TESTS RESULT OUT OF RANGE REFERENCE UNITS LAB 2731-8(LOIN 12-88 Picogram/ml C) Normal PTH Intact 54 Performed By: #### 2731-8 #### [facility] [address] [place], [place] XR CHEST 1 VIEW Observed: 09/24/2018 [...] RESULT OUT OF RANGE REFERENCE UNITS LAB 34749-8(LO INC) Protein Normal / Creatinine 0.9 Ratio Urine Result Comment: Reference Intervals: Normal Proteinuria = <0.1 Mild Proteinuria = 0.1 - 1.0 Moderate Proteinuria = 1.0 - 10.0 Heavy Proteinuria = >10.0 LAB 2161-8(LOINC) mg/dL Normal Creatinine Urine 121.62 LAB 2888-6(LOINC) <11.9 mg/dL High Protein Random Urine 111.2 Performed By: #### 51125-4 #### [facility] [address] [place], [place] GLUCOSE POCT Collected: 09/23/2018 Status: F [...] HEALTH SYSTEM REPOSITORY Patient: LOVE PHELAN MRN: [id number] Age: 73 years Sex: Male : 1945 [...] Echo ordered, cardiology consult and went to [facility] showing patent stents to LCx and LCA [...] elevated 0.07, EKG without ischemic changes, underwent [facility] showing elevated levels LVEDP and HF. 5. [...] PO, w/bkfst+din cyanocobalamin: 100 mcg, IM, Month (J48Bqhr) oxygen: 1 Each, Inhalation, Daily oxygen: 1 [...] mcg/ml injectable solution: 1 mL, IM, Month (W50Jjfp), Each, 0 Refill(s) glipiZIDE 10 mg oral [...] by Patient Care Services. Performed By: #### 8107-8 #### [facility] POINT OF CARE [employer] Observed: 09/23/2018 Status: F Source: [place] 12:19 PM HEALTH SYSTEM REPOSITORY EXAMINATION TYPE: [...] NANETTE CONSULTATION Observed: 09/23/2018 Status: F Source: [place] 11:47 AM HEALTH SYSTEM REPOSITORY Patient: LOVE PHELAN MRN: ([id number] Age: 73 years Sex: Male : 1945 Associated Diagnoses: None Author: Emerson Solis MD Nephrology Consultation dictated, #[id number]. Thanks, Emerson Solis MD [facility], [facility]. Pager: Office: PROGRESS NOTES Observed: 09/23/2018 Status: F Source: [place] 9:52 AM HEALTH SYSTEM REPOSITORY Patient: LOVE PHELAN MRN: (COL)-[id number] Age: 73 years Sex: Male : 1945 Associated Diagnoses: None Author: Hema DHALIWAL , Opal Savage Heart Failure Education Initiated : Reviewed medications, daily weights, low sodium diet, daily activity levels, signs and symptoms of Heart Failure and when to call physician. Evaluation of LV Function :09/22/2018 LVEF 60-65%, Severe MR Medications :IV lasix, Coreg, Norvasc Referrals :Deferred HFC since patient lives in [facility] Comments :Patient with history of CAD, [...] when to call physician. He lives in [facility] and is here for the . He follows with brusher warp Dr. Hemant Blanchard in [place] [facility] ROLE score for readmission 9. Recommendations :Close OP follow up with Dr. Blanchard Quality Measures Documentation PROGRESS NOTES Observed: 09/23/2018 Status: C Source: [place] 9:29 AM [facility]ALTH SYSTEM REPOSITORY Patient: LOVE PHELAN MRN: [id number] Age: 73 years Sex: Male : 1945 Associated Diagnoses: None Author: Sarah Bryan CNP Supervising Physician Comments Documentation By: Nurse Practitioner. Comments HPI: Mr. Aleman is a 73 year old male with past medical history significant for chronic ischemic heart disease s/p multivessel stenting in 2009, HTN, HLD, T2DM, CKD, and obesity who presented to [facility] on 09/21/18 with c/o shortness of breath. He was in [place] visiting family for the holidays when he [...] valve repair/replacement. Of note, pt lives in [place] and follows with his Prop Drawer there regularly. He had a routine office [...] PROGRESS NOTES Observed: 09/23/2018 Status: F Source: [place] 7:52 AM [facility] SYSTEM REPOSITORY Patient: LOVE PHELAN MRN: [id number] Age: 73 years Sex: Male : 1945 Associated Diagnoses: None Author: Zane AMBRIZ , Milly [facility] Cardiology Progress Note Subjective: diuresed 1.7 liters. [...] underlying CAD. -Chronic ischemic heart disease; s/p ND and multivessel stenting 2009. He had negative [...] OR is contemplated Candie Degroot MD [facility] 09/23/2018 08:16 Vital Signs (Past 36 Hours) [...] mcg = 0.1 mL, IM, Inject, Month (J17Myri),, x 30 Day(s), 09/21/18 5:49:00 EST Last [...] Given CBC Collected: 09/23/2018 Status: F Source: [place] 7:38 AM [facility]ALTH SYSTEM REPOSITORY TYPE CODE TESTS RESULT OUT OF REFERENCE UNITS RANGE LAB 79734-2(LO 11.0-14.8 % INC) RDW Normal 14.4 LAB 22456-0(LO 39.0-49.0 % INC) Low Hematocrit 37.2 LAB 718-7(LOIN 13.5-17.5 gm/dL C) Low Hemoglobin 12.3 LAB 50521-4(LO 6.2-12.1 FL INC) MPV Normal 9.4 LAB 88689-0(LO 32.0-36.0 gm/dL INC) MCHC Normal 33.0 LAB 33337-7(LO 4.30-5.70 million/mcL INC) Red Normal Blood Cell 4.39 Count LAB 52853-7(LO 142-424 thou/mcL INC) Normal Platelet Count 170 LAB 59057-1(LO 27.0-34.0 Picograms INC) MCH Normal 27.9 LAB 99072-1(LO 4.6-10.2 thou/mcL INC) WBC Normal Count 8.9 LAB 80012-0(LO 80.0-97.0 FL INC) MCV Normal 84.6 Performed By: #### 89575-4 #### [facility] [address], [place] BNP (B -TYPE Collected: 09/23/2018 Status: F Source: [place] NATRIURETIC PEPTIDE) 7:38 AM HEALTH SYSTEM REPOSITORY TYPE CODE TESTS RESULT OUT OF REFERENCE UNITS RANGE LAB 93786-7(LO 0-100 Picogram/m INC) l B Type High Natriuretic 140 Peptide Result Comment: Less than 100 CHF is unlikely Greater than 100 Possible left ventricular And less than 400 dysfunction-unlikely acute decompensation Greater than 400 Suspicious for decompensated heart failure Performed By: #### 37277-8 #### [facility] [address], [place] GFRAA Collected: 09/23/2018 Status: F Source: [place] 7:38 AM [facility] SYSTEM REPOSITORY TYPE CODE TESTS RESULT OUT OF RANGE REFERENCE UNITS LAB 60819-6(LO mL/min INC) GFR Normal Estimated 55 Result Comment: The MDRD equation has not been validated for those over 70 years, women, patients with serious co-morbid conditions, or with extremes of body size, muscle mass of nutritional status. Performed By: #### 74441-0, 98176-2n6, 30679-8 #### [facility] [address], [place] GFRBB Collected: 09/23/2018 Status: F Source: [place] 7:38 AM [facility] SYSTEM REPOSITORY TYPE CODE TESTS RESULT OUT OF RANGE REFERENCE UNITS LAB 20090-6(LO mL/min INC) GFR Normal Estimated Non 45 Performed By: #### 31013-6, 31996-6s0, 68716-5 #### [facility] [address], [place] BASIC METABOLIC PANEL Collected: 09/23/2018 Status: F Source: [place] 7:38 AM [facility] SYSTEM REPOSITORY TYPE CODE TESTS RESULT OUT OF RANGE REFERENCE UNITS LAB 2160-0(HANY 0.60-1.30 mg/dL NC) High Creatinine 1.52 LAB 03285-0(LO 8-20 mg/dL INC) High BUN 63 LAB 2075-0(HANY 98-107 mMol/L NC) Chloride Normal Level 98 LAB 2951-2(HANY 136-145 mMol/L NC) Low Sodium Level 133 LAB 59842-5(LO 70-110 mg/dL INC) High Glucose Level 265 LAB 82972-8(LO 6.0-18.0 mMol/L INC) Anion Normal Gap 13.0 LAB 2028-9(HANY 22-32 mMol/L NC) Carbon Normal Dioxide Level 22 LAB 2823-3(HANY 3.6-5.1 mMol/L NC) Normal Potassium Level 4.1 LAB 61938-4(LO 8.9-10.3 mg/dL INC) Low Calcium Total 8.8 Performed By: #### 45864-5, 59278-8j2, 19620-1 #### [facility] [address], [place] GLUCOSE POCT Collected: 09/23/2018 Status: F Source: [place] (UPLOADED) 5:41 AM HEALTH SYSTEM REPOSITORY TYPE CODE TESTS RESULT OUT OF REFERENCE UNITS RANGE LAB 2340-8(LOIN 70-110 mg/dL C) High Glucose 254 POCT-LAB Result Comment: Treatment ranges and critical values established by Patient Care Services. All follow-up actions were taken by Patient Care Services. Performed By: #### 2430-8 #### [facility] POINT OF CARE CONSULTATION Observed: 09/23/2018 Status: F Source: [place] 12:00 AM HEALTH SYSTEM REPOSITORY DICTATED BY:DAPHNEY JAUREGUI MD SERVICE DATE:09/23/2018 REASON FOR CONSULTATION: Pre-mitral valve replacement dental evaluation. HISTORY OF PRESENT ILLNESS: The patient is a 73-year-old male who presented to [facility] on September 21 with a complaint of severe shortness of breath. He is a resident of [place] and was visiting family in [place] for the holidays when he developed shortness [...] is indicated. LOVE PHELAN Birthdate: 1945 #: [id number] D/09/23/2018 11:37:57 T/09/23/2018 12:10:18 VOICE JOB ID:[id number] [place] thanks you for the opportunity to care for your patient. DID: [id number] CONSULTATION Observed: 09/23/2018 Status: F Source: [place] 12:00 AM HEALTH SYSTEM REPOSITORY DICTATED BY:EMERSON [...] reportedly chronic kidney disease. He lives in [place], [place], and was in [facility] family. He does admit to significant feasting on giving with likely a significant sodium intake. He noted some difficulties with dyspnea a nd some chest discomfort the following day. This progressed to the point that he was dyspneic at rest. He was presented to the [facility] Emergency Department, where he was found to [...] patient does tend to follow with the [facility] in [place], [place]. He is aware of some degree [...] with you. LOVE PHELAN Birthdate: 1945 #: [id number] D/09/23/2018 12:02:06 T/09/23/2018 12:43:46 VOICE JOB ID:[id number] Jed Velarde thanks you for the opportunity to care for your patient. CC: [facility] DID: [id number] GLUCOSE POCT Collected: 09/22/2018 Status: F Source: [...] HEALTH SYSTEM REPOSITORY Patient: LOVE PHELAN MRN: [id number] Age: 73 years Sex: Male : 1945 [...] Echo ordered, cardiology consult and went to [facility] today showing patent stents to LCx and [...] changes, we'll continue trend troponin and underwent [facility] showing elevated levels LVEDP and HF. 5. [...] and examiend. Pt on the way to [facility] Denies fevers, chills, nausea, vomiting, abdominal pain, [...] PO, w/bkfst+din cyanocobalamin: 100 mcg, IM, Month (D21Tcly) oxygen: 1 Each, Inhalation, Daily Documented Medications [...] mcg/ml injectable solution: 1 mL, IM, Month (X64Qoag), Each, 0 Refill(s) glipiZIDE 10 mg oral [...] UNITS LAB 5811-5(LO 1.002-1.030 INC) Normal Specific [place] Urine 1.010 LAB 04880-8(L NORMAL OINC) Normal Urobilinogen NORMAL Urine LAB 5803-2(LO 4.5-8.0 INC) Normal pH Urine 6.0 LAB 12139-8(L NEGATIVE OINC) Normal Nitrite Urine NEGATIVE LAB [...] NORMAL INC) Glucose Abnormal Urine 150MG/DL LAB 49989-5(L NEGATIVE OINC) Normal Bilirubin Urine NEGATIVE Performed By: #### 94562-1, 79837-7 #### [facility], [address] [place], [place] URINALYSIS MICROSCOPIC Collected: 09/22/2018 Status: F Source: [place] 1:40 PM [facility]ALTH SYSTEM REPOSITORY TYPE CODE TESTS RESULT OUT OF RANGE REFERENCE UNITS LAB 5821-4x1(L 0-5 /hpf OINC) Normal WBC Urine 1 LAB 8247-9(HANY NONE/LPF NC) Abnormal Mucous RARE Urine LAB 28684-5(LO 0-5 /hpf INC) Normal RBC Urine 1 Performed By: #### 34190-8, 16358-0 #### [facility], [address] [place] [address] CONSULTATION Observed: 09/22/2018 Status: F Source: [place] 1:01 PM HEALTH SYSTEM REPOSITORY Patient: LOVE PHELAN MRN: [id number] Age: 73 years Sex: Male : 1945 Associated Diagnoses: None Author: Sarah Bryan CNP Supervising Physician Comments Documentation By: Nurse Practitioner. Admission Information Source of history: The patient, medical records and . History of Present Illness SUN'AQ: Mr. Aleman is a 73 year old male with past medical history significant for chronic ischemic heart disease s/p multivessel stenting in 2009, HTN, HLD, T2DM, CKD, and obesity who presented to [facility] on 09/21/18 with c/o shortness of breath. He was in [place] visiting family for the holidays when he [...] valve repair/replacement. Of note, pt lives in [place] and follows with his Prop Drawer there regularly. He had a routine office [...] Impression and Plan Diagnosis Mitral valve regurgitation (WXC70-IU I34.0, Working, Medical). Consult Thank you for [...] by Patient Care Services. Performed By: #### 00111-2 #### [facility]INT [facility] C[facility] CARDIAC CATHETERIZATION Observed: 09/22/2018 Status: F Source: [employer] 11:27 AM HEALTH SYSTEM REPOSITORY Cardiac Diagnostic Report Demographics Patient LINEBAUGH Date of 1945 Height 70.87 Name LOVE patel Patient [id number] Age 73 year(s) Weight 233.69 Number pounds Visit [id number] Gender Male BSA 2.25 m2 Number Date [...] +--------+--------+--------+---------+ + + Shunts Oxygen Values O2 Eafkwouc864.48O2 Gsaanhwqmkl029.29 Flows (l/min)Qs6.45 Vascular Resistance + +-----+-----+----+----+---------+-------+ !CO [...] I.V. 40 mg. Diagnostic Catheters - Bazzi Hastings-Yajaira 7Fr Graphenix Development-Shore TD(141F7) was used for right heart catheterization; - Cordis 6Fr JR 5 100cm (910-622) was used for left heart catheterization and coronary angiography; - Cordis 6Fr JL 3.5 100cm (003612) was used for coronary angiography; Estimated blood loss: 10 ml. Contrast Material - Dxqrki57 ml Fluoroscopy Time: Diagnostic: 2:00 minutes. Total: [...] ECHOCARDIOGRAM TXT Observed: 09/22/2018 Status: F Source: [place] 9:08 AM HEALTH SYSTEM REPOSITORY Transthoracic Echocardiography Report (TTE) Demographics Patient Name TAPAN Plasencia Date of 1945 Patient Number [id number] Age 73 year(s) Visit Number [id number] Gender Male Room Number 0229 Referring Robe Kohler MD Shot Core Drill Operator Maco Hardin Physician RDCS Interpreting [place] [facility] Ordering Robe Kohler MD Provider Consultants [...] injected due to poor endocardial border definition; compressed gases tester could not detect 2 or more contiguous [...] HEALTH SYSTEM REPOSITORY Patient: LOVE PHELAN MRN: [id number] Age: 73 years Sex: Male : 1945 Associated Diagnoses: None Author: Guadalupe AIRPORT OPERATIONS DUTY MANAGER, Debi Assessment Received call from nurse per [...] Source: [facility]ED [facility]ELARDE LYTES LACTATE 6:05 AM [employer] SYSTEM (UPLOAD) REPOSITORY TYPE CODE TESTS RESULT OUT OF REFERENCE UNITS RANGE LAB CD:138336 cm3 8165(LOIN C) AVAP Min POCT Normal 0 LAB CD:736736 Cm Water 8065(LOIN C) CPAP/PEEP POCT Normal 0 LAB 2019-8(LO 32-48 mmHg INC) pCO2 Arterial POCT Normal 40 LAB 80824-5(L 70-110 mg/dL OINC) Glucose POCT High 311 LAB 28840-1(L 10.0-20.0 mEq/L OINC) Low Anion Gap POCT 9.6 LAB 76201-6(L -2.0-3.0 mMol/L OINC) Low Base Excess POCT -3.1 LAB 62034-2(L % OINC) Carboxyhemoglobin POCT Normal 0.5 Result Comment: NON SMOKERS <1.5% SMOKERS 1.5 - 9.0% LAB CD:4248444912(LOINC) EPAP Normal POCT 0 LAB CD:7411113844(LOINC) cm3 Tidal Normal Volume POCT 0 LAB 718-7(LOINC) 13.5-1 gm/dL Low 7.5 Hemoglobin POCT 11.7 LAB 2075-0(LOINC) 98-106 mEq/L Chloride Normal POCT 105 LAB 44562-6(LOINC) VOL% O2 Normal Content POCT 14.8 LAB 2744-1(LOINC) 7.35-7 .45 Blood Normal Gas pH Arterial POCT 7.36 Result Comment: A result of UNABLE indicates the actual value could not be calculated. Treatment ranges and critical values established by Patient Care Services. All follow-up actions were taken by Patient Care Services. LAB 92644-7(LOINC) 0.5-1.6 mMol/L Normal Lactate POCT 1.5 LAB CD:9075424707(LOINC ) Resp. Normal Rate POCT 0 LAB CD:7196272464(LOINC ) IPAP Normal POCT 0 LAB 86454-6(LOINC) 3.5-5.0 mEq/L Normal Potassium POCT 4.5 LAB 2708-6(LOINC) 95.0-99.0 % Low O2 Saturation Arterial POCT 90.7 LAB 31411-0(LOINC) FiO2 Normal POCT 36.0 Result Comment: POC FI O2 CORRECTED FROM 28.0 ON 09/22/18 AT 0628 BY [id number] NOTIFIED BY RESP THERAPIST [id number] THAT FIO2 AND LPM WERE ENTERED INCORRECTLY. RESULTS CORRECTED BY THE LAB. SAS 09/22/18 06:28 LAB 26512-3(LOINC) 39-49 % Low Hematocrit POCT 36 LAB CD:6186749179(LOINC) Mode Normal POCT NCA LAB CD:3597602069(LOINC) 0-99 Pressure Normal Support POCT 0 LAB 09976-3(LOINC) LPM POCT Normal 4.0 Result Comment: POC LITER FL CORRECTED FROM 2.0 ON 09/22/18 AT 0628 BY [id number] LAB 2951-2(LOINC) 136-146 mEq/L Sodium POCT Normal 136 LAB 94129-5(LOINC) 21.0-28.0 mMol/L HCO3 Normal Arterial POCT 22.2 LAB 2614-6(LOINC) 0.2-0.6 % High Methemoglobin 0.9 POCT LAB 85302-6(LOINC) Sample Type Normal POCT Arterial LAB CD:7557391363(LOIN C) Pulse Normal Oximetry POCT 94 Clinic LAB CD:6232228587(LOIN Cm Water C) PEEP POCT Normal 0 LAB CD:7332639488(LOIN cm3 C) AVAP Max Normal POCT 0 LAB 2703-7(LOINC) 83-108 mmHg pO2 Low Arterial POCT 63 LAB 24516-5(LOINC) 94.0-99.0 % O2 Low Hemoglobin POCT 89.4 LAB 74432-1(LOINC) 1.12-1.32 mMol/L Calcium Normal Ionized POCT 1.16 LAB 2026-3(LOINC) 22.0-29.0 mMol/L Total CO2 Low Arterial POCT 20.5 LAB CD:4467310827(LOIN C) Site POCT Normal RRA Performed By: #### 48073-7i9 #### POINT OF CARE PROTHROMBIN TIME Collected: 09/22/2018 Status: F Source: [place] 5:46 AM [facility]ALTH SYSTEM REPOSITORY TYPE CODE TESTS RESULT OUT OF RANGE REFERENCE UNITS LAB 5902-2(HANY 9.3-12.4 Sec NC) High Prothrombin Time (PT) 15.6 LAB 17351-3(LO INC) INR Normal 1.35 Result Comment: The recommended therapeutic INR range for most cardiac indications is 2.0-3.0. For high intensity therapy(ie.mechanical heart valves), the recommended range is 2.5-3.5. Performed By: #### 5902-2 #### [facility] [address], [place] PARTIAL THROMBOPLASTIN Collected: 09/22/2018 Status: F Source: [place] TIME (APTT) 5:46 AM HEALTH SYSTEM REPOSITORY Order Comment: To be drawn (0600, 1400, 2200) while on heparin TYPE CODE TESTS RESULT OUT OF REFERENCE UNITS RANGE LAB 72705-5(LO 23.6-35.3 Sec INC) Partial High Thromboplastin 79.4 (aPTT) Performed By: #### 5902-2 #### [facility] [address], [place] CBC Collected: 09/22/2018 Status: F Source: [facility] 5:46 AM HEALTH SYSTEM REPOSITORY TYPE CODE TESTS RESULT OUT OF REFERENCE UNITS RANGE LAB 37928-7(LO 11.0-14.8 % INC) RDW Normal 14.1 LAB 718-7(LOIN 13.5-17.5 gm/dL C) Low Hemoglobin 11.8 LAB 97709-0(LO 32.0-36.0 gm/dL INC) MCHC Normal 33.7 LAB 27766-8(LO 27.0-34.0 Picograms INC) MCH Normal 28.0 LAB 18757-7(LO 4.30-5.70 million/mcL INC) Low Red Blood Cell 4.22 Count LAB 44418-9(LO 4.6-10.2 thou/mcL INC) WBC Normal Count 8.0 LAB 65306-2(LO 6.2-12.1 FL INC) MPV Normal 9.3 LAB 51648-7(LO 80.0-97.0 FL INC) MCV Normal 83.0 LAB 44233-4(LO 142-424 thou/mcL INC) Normal Platelet Count 163 LAB 00679-9(LO 39.0-49.0 % INC) Low Hematocrit 35.0 Performed By: #### 10281-8 #### [facility] [address], [place] BNP (B -TYPE Collected: 09/22/2018 Status: F Source: [place] NATRIURETIC PEPTIDE) 5:46 AM HEALTH SYSTEM REPOSITORY TYPE CODE TESTS RESULT OUT OF REFERENCE UNITS RANGE LAB 18598-4(LO 0-100 Picogram/m INC) l B Type High Natriuretic 281 Peptide Result Comment: Less than 100 CHF is unlikely Greater than 100 Possible left ventricular And less than 400 dysfunction-unlikely acute decompensation Greater than 400 Suspicious for decompensated heart failure Performed By: #### 19344-1 #### [facility] [address], [place] TROPONIN I Collected: 09/22/2018 Status: F Source: [place] 5:46 AM [facility] SYSTEM REPOSITORY TYPE CODE TESTS RESULT OUT OF RANGE REFERENCE UNITS LAB 65631-2(LO <0.06 ng/mL INC) Abnormal Alert Troponin I 0.51 Result Comment: Previous result critical and called. Call not required for this result. Performed By: #### 45644-4 #### [facility] [address], [place] GFRAA Collected: 09/22/2018 Status: F Source: [place] 5:46 AM [facility] SYSTEM REPOSITORY TYPE CODE TESTS RESULT OUT OF RANGE REFERENCE UNITS LAB 68962-0(LO mL/min INC) GFR Normal Estimated 50 Result Comment: The MDRD equation has not been validated for those over 70 years, women, patients with serious co-morbid conditions, or with extremes of body size, muscle mass of nutritional status. Performed By: #### 75264-6, 23079-1w5, 3016-3, 47054-8 #### [facility] [address], [place] GFRBB Collected: 09/22/2018 Status: F Source: [place] 5:46 AM [facility] SYSTEM REPOSITORY TYPE CODE TESTS RESULT OUT OF RANGE REFERENCE UNITS LAB 46037-2(LO mL/min INC) GFR Normal Estimated Non 41 Performed By: #### 22766-3, 50675-1o7, 3016-3, 44233-0 #### [facility] [address], [place] THYROID STIMULATING Collected: 09/22/2018 Status: F Source: [place] HORMONE 5:46 AM HEALTH SYSTEM REPOSITORY TYPE CODE TESTS RESULT OUT OF RANGE REFERENCE UNITS LAB 3015-5(HANY 0.45-5.33 mcIU/mL NC) Thyroid Normal Stimulating 1.36 Hormone Performed By: #### 30509-7, 29760-1u9, 3016-3, 71600-7 #### [facility] [address], [place] BASIC METABOLIC PANEL Collected: 09/22/2018 Status: F Source: [facility] 5:46 AM HEALTH SYSTEM REPOSITORY TYPE CODE TESTS RESULT OUT OF RANGE REFERENCE UNITS LAB 96664-6(LO 6.0-18.0 mMol/L INC) Anion Normal Gap 7.0 LAB 34693-0(LO 8.9-10.3 mg/dL INC) Low Calcium Total 8.6 LAB 2951-2(HANY 136-145 mMol/L NC) Low Sodium Level 132 LAB 2075-0(HANY 98-107 mMol/L NC) Chloride Normal Level 104 LAB 2160-0(HANY 0.60-1.30 mg/dL NC) High Creatinine 1.65 LAB 2823-3(HANY 3.6-5.1 mMol/L NC) Normal Potassium Level 4.6 LAB 74639-3(LO 70-110 mg/dL INC) High Glucose Level 314 LAB 47141-2(LO 8-20 mg/dL INC) High BUN 63 LAB 8-9(HANY 22-32 mMol/L NC) Low Carbon Dioxide Level 21 Performed By: #### 32492-8, 81073-5e4, 3016-3, 71691-5 #### [facility] [address], [place] LIPID PANEL Collected: 09/22/2018 Status: F Source: [facility] 5:46 AM [facility] SYSTEM REPOSITORY TYPE CODE TESTS RESULT OUT OF RANGE REFERENCE UNITS LAB 66011-2(LO <100 mg/dL INC) LDL Normal Cholesterol 54 LAB 2093-3x1(L <200 mg/dL OINC) Lipid Normal Profile - 125 Cholesterol Result Comment: Refer to the National Cholesterol Education Program ATP III cut offs for risk stratification. LAB 2091-7(LOINC) 2-38 mg/dL VLDL High 44 LAB 2571-8(LOINC) <200 mg/dL Lipid Profile High - Triglyceride 219 LAB 5-9(LOINC) >40 mg/dL HDL Low Cholesterol 27 Performed By: #### 66631-1 #### [facility] [address], [place] GLYCOHEMOGLOBIN (HGB A1C) Collected: 09/22/2018 Status: F Source: [place] PANEL 5:46 AM HEALTH SYSTEM REPOSITORY TYPE CODE TESTS RESULT OUT OF REFERENCE UNITS RANGE LAB 4548-4(HANY 4.0-6.0 % tl hgb NC) High Hemoglobin A1c 9.0 Result Comment: New method 01/25/15: [employer] HPLC (high-performance liquid chromatography) Performed By: #### 4549-2 #### [facility], [address] [place] [address]. GLUCOSE POCT Collected: 09/22/2018 Status: F Source: [...] HEALTH SYSTEM REPOSITORY Patient: LOVE PHELAN MRN: ([id number] Age: 73 years Sex: Male : 1945 Associated Diagnoses: None Author: Guadalupe AIRPORT OPERATIONS DUTY MANAGER, Debi Assessment Received call from nurse per [...] RESULT OUT OF REFERENCE UNITS RANGE LAB 73915-2(LO 23.6-35.3 Sec INC) Partial High Thromboplastin 88.6 (aPTT) Performed By: #### 3173-2 #### [facility] [address] [place], [place] GLUCOSE POCT Collected: 09/21/2018 Status: F [...] RESULT OUT OF RANGE REFERENCE UNITS LAB 54186-7(LO <0.06 ng/mL INC) Abnormal Alert Troponin I 1.88 Result Comment: Critical value(s) on tests TROPONIN called to and read-back by [id number] , at location BARBARA by [id number] time called 09/21/18 16:41 Performed By: #### 67969-8 #### [facility] [address] [place], [place] TROPONIN I Collected: 09/21/2018 Status: F Source: [place] 11:57 AM [facility] SYSTEM REPOSITORY TYPE CODE TESTS RESULT OUT OF RANGE REFERENCE UNITS LAB 04833-4(LO <0.06 ng/mL INC) Abnormal Alert Troponin I 2.03 Result Comment: Previous result critical and called. Call not required for this result. 09/21/18 12:45 FAB Performed By: #### 22208-9 #### [facility] [address], [place] MAGNESIUM LEVEL Collected: 09/21/2018 Status: F Source: [place] 9:56 AM [facility]ALTH SYSTEM REPOSITORY TYPE CODE TESTS RESULT OUT OF REFERENCE UNITS RANGE LAB 37775-9(LO 1.8-2.5 mg/dL INC) Low Magnesium Level 1.7 Performed By: #### 40578-6, 25628-6 #### [facility] [address], [place] BASIC METABOLIC PANEL Collected: 09/21/2018 Status: F Source: [place] 9:56 AM [facility] SYSTEM REPOSITORY TYPE CODE TESTS RESULT OUT OF RANGE REFERENCE UNITS LAB 96567-5(LO 8-20 mg/dL INC) High BUN 51 LAB 2075-0(HANY 98-107 mMol/L NC) Chloride Normal Level 100 LAB 10144-5(LO 6.0-18.0 mMol/L INC) Anion Normal Gap 14.0 LAB 83950-0(LO 8.9-10.3 mg/dL INC) Low Calcium Total 8.5 LAB 2160-0(HANY 0.60-1.30 mg/dL NC) High Creatinine 1.81 LAB 2951-2(HANY 136-145 mMol/L NC) Low Sodium Level 134 LAB 2823-3(HANY 3.6-5.1 mMol/L NC) Normal Potassium Level 4.8 LAB 94010-9(LO 70-110 mg/dL INC) High Glucose Level 312 LAB 2028-9(HANY 22-32 mMol/L NC) Low Carbon Dioxide Level 20 Performed By: #### 43484-1, 83341-3 #### [facility] [address], [place] PROTHROMBIN TIME Collected: 09/21/2018 Status: F Source: [place] 9:56 AM [facility] SYSTEM REPOSITORY TYPE CODE TESTS RESULT OUT OF RANGE REFERENCE UNITS LAB 08374-3(HANY NC) Normal INR 1.22 Result Comment: The recommended therapeutic INR range for most cardiac indications is 2.0-3.0. For high intensity therapy(ie.mechanical heart valves), the recommended range is 2.5-3.5. LAB 5902-2(LOINC) 9.3-12.4 Sec Prothrombin High Time (PT) 14.0 Performed By: #### 5902-2, 3173-2 #### [facility] [address] [place], [place] PARTIAL THROMBOPLASTIN Collected: 09/21/2018 Status: F Source: [place] TIME (APTT) 9:56 AM HEALTH SYSTEM REPOSITORY TYPE CODE TESTS RESULT OUT OF REFERENCE UNITS RANGE LAB 02245-8(LO 23.6-35.3 Sec INC) Partial Normal Thromboplastin 33.9 (aPTT) Performed By: #### 5902-2, 3173-2 #### [facility] [address] [place], [place] TROPONIN I Collected: 09/21/2018 Status: F Source: [place] 9:56 AM [facility] SYSTEM REPOSITORY TYPE CODE TESTS RESULT OUT OF RANGE REFERENCE UNITS LAB 15371-4(LO <0.06 ng/mL INC) Abnormal Alert Troponin I 1.54 Result Comment: Previous result critical and called. Call not required for this result. 09/21/18 10:50 FAB Performed By: #### 85645-6 #### [facility] [address] [place], [place] PROGRESS NOTES Observed: 09/21/2018 Status: F Source: [place] 8:00 AM HEALTH SYSTEM REPOSITORY Patient: LOVE PHELAN MRN: ([id number] Age: 73 years Sex: Male : 1945 [...] CHF, currently on 2 L 02 via AR # CKD: stated baseline Cr is high. [...] TROPONIN I Collected: 09/21/2018 Status: F Source: [place] 7:52 AM [facility] SYSTEM REPOSITORY TYPE CODE TESTS RESULT OUT OF RANGE REFERENCE UNITS LAB 60375-8(LO <0.06 ng/mL INC) Abnormal Alert Troponin I 0.99 Result Comment: Critical value(s) on tests TROPI called to and read-back by [id number] , at location [place]BARA by [id number] time called 09/21/18 09:05 FAB Performed By: #### 36369-3 #### [facility] [address] [place], [place] GLUCOSE POCT Collected: 09/21/2018 Status: F Source: [place] (UPLOADED) 6:54 AM HEALTH SYSTEM REPOSITORY TYPE [...] HEALTH SYSTEM REPOSITORY Patient: LOVE PHELAN MRN: ([id number] Age: 73 years Sex: Male : 1945 Associated Diagnoses: None Author: Bruce MOLINA , Christi Dumont Comments Mr. Love Phelan is a 73 yo male who p/w acute SOB and orthopnea. He has a PMH significant for CAD s/p ND and multivessel stenting 2009, HTN, HLD, DM2, CKD, carotid vascular disease, and obesity. He is in [place] visiting family for holidays and historically follows with Dr. Hemant Blanchard in [place], [place] area. He was last seen 06/2018 [...] underlying CAD. -Chronic ischemic heart disease; s/p ND and multivessel stenting 2009. He had negative [...] developed in collaboration with Dr. Christi Tang. [id number] Christi Barrera CNP Attending attestation I have [...] breath with worsening right shoulder pain. He maximilain es any overt chest pain or chest [...] benefits outweigh the risks Christi Tang MD [place] [employer] Technician HISTORY AND PHYSICAL Observed: 09/21/2018 Status: F Source: [place] 5:52 AM HEALTH SYSTEM REPOSITORY Patient: LOVE [...] unknown baseline since he lives out of [place] and he is visiting his daughter over [...] PO, Daily cyanocobalamin: 100 mcg, IM, Month ([id number]) oxygen: 1 Each, Inhalation, Daily Documented Medications [...] mcg/ml injectable solution: 1 mL, IM, Month (P06Evyw), Each, 0 Refill(s) glipiZIDE 10 mg oral [...] determined Impression and Plan Diagnosis Acute CHF (TTH58-YL I50.9, Working, Medical). XR CHEST 1 VIEW [...] WITH DIFFERENTIAL Collected: 09/21/2018 Status: F Source: [place] 4:14 AM [facility]ALTH SYSTEM REPOSITORY TYPE CODE TESTS RESULT OUT OF REFERENCE UNITS RANGE LAB 02091-8(LO 0.0-12.0 % INC) Normal Monocyte 9.2 LAB 742-7(LOIN 0.00-0.90 thou/mcL C) Normal Monocyte 0.60 Absolute LAB 718-7(LOIN 13.5-17.5 gm/dL C) Normal Hemoglobin 13.9 LAB 16372-0(LO 11.0-14.8 % INC) RDW Normal 14.7 LAB 02672-2(LO 22.0-44.0 % INC) Low Lymphocyte 19.0 LAB 731-0(LOIN 1.00-4.80 thou/mcL C) Normal Lymphocyte 1.30 Absolute LAB 67187-9(LO 4.30-5.70 million/mcL INC) Red Normal Blood Cell 4.99 Count LAB 18458-1(LO 32.0-36.0 gm/dL INC) MCHC Normal 33.3 LAB 17534-0(LO 4.6-10.2 thou/mcL INC) WBC Normal Count 6.6 LAB 71629-3(LO 27.0-34.0 Picograms INC) MCH Normal 27.9 LAB 751-8(LOIN 1.80-7.70 thou/mcL C) Normal Neutrophil 4.50 Absolute LAB 52189-7(LO 40.0-70.0 % INC) Normal Neutrophil 67.9 LAB 33084-5(LO 80.0-97.0 FL INC) MCV Normal 83.7 LAB 04330-7(LO 6.2-12.1 FL INC) MPV Normal 9.0 LAB 41374-6(LO 0.0-2.0 % INC) Normal Basophil 0.9 LAB 704-7(LOIN 0.00-0.20 thou/mcL C) Normal Basophil 0.10 Absolute LAB 07658-2(LO 39.0-49.0 % INC) Normal Hematocrit 41.7 LAB 89872-5(LO 0.0-7.0 % INC) Normal Eosinophil 3.0 LAB 711-2(LOIN 0.00-0.70 thou/mcL C) Normal Eosinophil 0.20 Absolute LAB 49955-1(LO 142-424 thou/mcL INC) Normal Platelet Count 158 Performed By: #### 96195-8 #### [facility] [address], [place] PROTHROMBIN TIME Collected: 09/21/2018 Status: F Source: [facility] 4:14 AM [facility] SYSTEM REPOSITORY TYPE CODE TESTS RESULT OUT OF RANGE REFERENCE UNITS LAB 5902-2(HANY 9.3-12.4 Sec NC) High Prothrombin Time (PT) 13.4 LAB 60720-5(LO INC) INR Normal 1.17 Result Comment: The recommended therapeutic INR range for most cardiac indications is 2.0-3.0. For high intensity therapy(ie.mechanical heart valves), the recommended range is 2.5-3.5. Performed By: #### 5902-2, 3173-2 #### [facility] [address], [place] PARTIAL THROMBOPLASTIN Collected: 09/21/2018 Status: F Source: [place] TIME (APTT) 4:14 AM HEALTH SYSTEM REPOSITORY TYPE CODE TESTS RESULT OUT OF REFERENCE UNITS RANGE LAB 28420-2(LO 23.6-35.3 Sec INC) Partial Normal Thromboplastin 34.1 (aPTT) Performed By: #### 5902-2, 3173-2 #### [facility] [address], [place] GFRAA Collected: 09/21/2018 Status: F Source: [employer] 4:14 AM HEALTH SYSTEM REPOSITORY TYPE CODE TESTS RESULT OUT OF RANGE REFERENCE UNITS LAB 11450-3(LO mL/min INC) GFR Normal Estimated 47 Result Comment: The MDRD equation has not been validated for those over 70 years, women, patients with serious co-morbid conditions, or with extremes of body size, muscle mass of nutritional status. Performed By: #### 63795-3, 38010-8n5, 34553-3, 76476-6 #### [facility] [address], [place] GFRBB Collected: 09/21/2018 Status: F Source: [place] 4:14 AM [facility]ALTH SYSTEM REPOSITORY TYPE CODE TESTS RESULT OUT OF RANGE REFERENCE UNITS LAB 78265-5(LO mL/min INC) GFR Normal Estimated Non 39 Performed By: #### 32006-8, 27384-1t8, 78651-6, 86708-7 #### [facility] [address], [place] BASIC METABOLIC PANEL Collected: 09/21/2018 Status: F Source: [place] 4:14 AM [facility]ALTH SYSTEM REPOSITORY TYPE CODE TESTS RESULT OUT OF RANGE REFERENCE UNITS LAB 2160-0(HANY 0.60-1.30 mg/dL NC) High Creatinine 1.74 LAB 05817-3(LO 6.0-18.0 mMol/L INC) Anion Normal Gap 12.0 LAB 2028-9(HANY 22-32 mMol/L NC) Low Carbon Dioxide Level 21 LAB 2951-2(HANY 136-145 mMol/L NC) Low Sodium Level 135 LAB 2075-0(HANY 98-107 mMol/L NC) Chloride Normal Level 102 LAB 29712-3(LO 8.9-10.3 mg/dL INC) Calcium Normal Total 9.0 LAB 12309-5(LO 70-110 mg/dL INC) High Glucose Level 221 LAB 73108-9(LO 8-20 mg/dL INC) High BUN 48 LAB 2823-3(HANY 3.6-5.1 mMol/L NC) Normal Potassium Level 4.2 Performed By: #### 67988-8, 52567-4r9, 86000-7, 17685-9 #### [facility] [address], [place] TROPONIN I Collected: 09/21/2018 Status: F Source: [place] 4:14 AM [facility]ALTH SYSTEM REPOSITORY TYPE CODE TESTS RESULT OUT OF REFERENCE UNITS RANGE LAB 94689-6(HANY <0.06 ng/mL NC) High Troponin I 0.07 Performed By: #### 67924-8, 90543-9a8, 42900-8, 71368-1 #### [facility] [address], [place] BNP (B -TYPE Collected: 09/21/2018 Status: F Source: [place] NATRIURETIC PEPTIDE) 4:14 AM HEALTH SYSTEM REPOSITORY TYPE CODE TESTS RESULT OUT OF REFERENCE UNITS RANGE LAB 76594-5(LO 0-100 Picogram/m INC) l B Type High Natriuretic 233 Peptide Result Comment: Less than 100 CHF is unlikely Greater than 100 Possible left ventricular And less than 400 dysfunction-unlikely acute decompensation Greater than 400 Suspicious for decompensated heart failure Performed By: #### 81393-8 #### [facility] [address], [place] ED PHYSICIAN NOTES Observed: 09/21/2018 Status: F Source: [place] 4:12 AM HEALTH SYSTEM REPOSITORY Patient: LOVE [...] REASON FOR CONSULTATION: CHF, elevated troponin. PRIMARY QUARRY PLANT CRUSHER OPERATOR: Hemant Blanchard MD PRIMARY CARE PHYSICIAN: Unknown. HISTORY OF PRESENT ILLNESS: The patient is a 73-year-old gentleman who presents to [facility] with acute shortness of breath and [...] disease and obesity. He resides in the [facility]; however, is in [place] visiting his family for the holidays and has historically followed with his brusher warp as noted above. He reports no cardiopulmonary complaints at baseline. 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 He resides in [facility] with his . FAMILY HISTORY: Father [...] 3. Chronic ischemic heart disease, status post ND and multivessel stenting in 2009, he had [...] D/09/21/2018 10:22:04 T/09/21/2018 11:12:59 VOICE JOB ID: [id number] Jed Velarde thanks you for the opportunity to care for your patient. DID: [id number] CARDIOLOGY VISIT Observed: 07/15/2018 Status: F Source: [place] REPORT 11:39 AM [facility] REPOSITORY [facility] 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 [place] [address] OFFICE VISIT Date of Service: 12/18/17 MR#: [id number] Acct: [id number] Name: LOVE PHELAN Rep #: [id number] : 1945 Provider: Alma Delia Aquino Age/Sex: 72/M Location: 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 Assessment AND Plan 1. Atherosclerosis of sitka coronary artery of sitka heart without angina pectoris I25.10 Plan - [...] prior to saving. 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 transplanted heart: sitka heart HTN (hypertension), benign I10 Pure hypercholesterolemia E78.00; E78.0 Hyperlipidemia type: pure hypercholesterolemia 12/18/17 1156 <Electronically signed by Alma Delia AMBROCIO> Date Alma Delia AMBROCIO 12/18/17 1800<Electronically signed by Julian Hay MD> Cosigner Signature: Date (if applicable) Julian Hay MD CC: Akira Tara LIVER PROFILE Collected: 12/13/2017 Status: F Source: [place]ILD 8:43 AM [facility] REPOSITORY TYPE CODE TESTS RESULT OUT OF [...] 0.06 Performed By: #### L500.3400, L500.4100 #### [facility] [address] [place], [address] LIPID PROFILE Collected: 12/13/2017 Status: F Source: BRY[place] 8:43 AM [facility] REPOSITORY TYPE CODE TESTS RESULT OUT [...] 38 Performed By: #### L500.3400, L500.4100 #### [facility] [address] [place], [address] ALLERGIES ALLERGIES DATE TYPE / CODE NAME / CODE REACTION SEVERITY SOURCE 10/17/2018 Drug doxycycline/F Hives Unknown [facility] Allergy/4160 [id number]([facility] Hospital 48683(SNOMED ORM) Repository CT) 12/14/2017 Drug No Known Unknown [facility] Allergy/4160 Allergies/F00 Hospital 68868(SNOMED 7909126(RXNOR Repository CT) M) ENCOUNTERS ENCOUNTERS ADMIT/DISCHARGE ACCOUNT NUMBER ADMITTING ENCOUNTER LOCATION SOURCE CLASS 11/18/2018 [id number] [facility] ding:CR Repository 11/10/2018 [id number] [facility] ding:LAB Repository 10/24/2018 [id number] [facility] Hospital ding:LAB.FUT Repository URE 10/17/2018/10/17/20 [id number] Ambulatory [address] ding:LAB Repository 10/17/2018/10/17/20 [id number] Ambulatory BMSBuilding: [facility] Repository 10/16/2018 [id number] Ambulatory BMSBuilding: [facility]MS[facility] Repository 10/13/2018/10/13/20 [id number] [address] Repository :MCNO 10/10/2018 [id number] Ambulatory [facility] ding:LABSPEC Repository 10/08/2018 [id number] Ambulatory [facility] ding:LABSPEC Repository 10/07/2018 [id number] Ambulatory [facility] ding:LAB Repository 10/03/2018/10/03/20 [id number] Emergency [address] ding:ED Repository 10/02/2018 [id number] Ambulatory [facility] ding:LAB.FUT Repository URE 09/21/2018/10/01/20 [id number] [place], [address] Repository :CPCERoom: 1C31Dto: 07/15/2018/07/15/20 [id number] Ambulatory BMSBuilding: Wild 18 BMS.[facility] Repository 12/18/2017/12/18/19 [id number] Ambulatory BMSBuilding: [place] [address] [facility]MS[facility] Repository 12/14/2017 [id number] Ambulatory BMSBuilding: Wild BMS.[facility] Repository 12/13/2017 [id number] Ambulatory [facility] ding:LAB Repository PAYERS PAYERS ENCOUNTER GUARANTOR PAYER SUBSCRIBER SOURCE 11/18/2018 LOVE [id number] Insurance:GRETCHEN GREGORYB: [facility] JASON, MEDICARE PPOPolicy [id number] Hospital [address]Qiw: Number: Repository [id number] (HP) Date:0025-93-59GH [address] [address]CP: 11/18/2018 Secondary LOVE E [facility] Number: [id number] Hospital [id number] Repository Date:2488-95-88NRQ SERVICE [id number] [place], [place] [address]XB: [phone] X2003 11/18/2018 Tertiary NOT GIVENUNK Wild Insurance:SELF PAY [facility] Number: Effective Repository Date:2018-11-12 11/10/2018 LOVE E Primary LOVE E [place]ga [id number] Insurance:HUMANA LINEBAUGHDOB: [facility] ALEXANDER GOMEZ, MEDICARE PPOPolicy [id number] Hospital [address]Srd: Number: Repository [id number] (HP) Date:5450-34-97GS [address] [address]UX: 11/10/2018 Secondary LOVE E Wild [facility] Number: [id number] Hospital [id number] Repository Date:2963-03-17YQM SERVICE [id number] [place], [place] [address]CC: [phone] X2003 11/10/2018 Tertiary NOT GIVENUNK Wild Insurance:SELF PAY [facility] Number: Effective Repository Date:2018-10-27 10/24/2018 LOVE E Primary LOVE E [place]ga [id number] Insurance:HUMANA LINEBAUGHDOB: [facility] ALEXANDER GOMEZ, MEDICARE PPOPolicy [id number] Hospital [address]Pkl: Number: Repository [id number] (HP) Date:8670-18-20WU [address] [address]PG: 10/24/2018 Secondary LOVE E [place] Insurance:ME MEDICAL LINEBAUGHDOB: [facility] Number: [id number] Hospital [id number] Repository Date:8077-88-55LBO SERVICE [id number] [place], [place] [address]LQ: [phone] X2003 10/24/2018 Tertiary NOT GIVENUNK Wild Insurance:SELF PAY [facility] Number: Effective Repository Date:2018-10-16 10/17/2018 LOVE E Primary LOVE E Wild [id number] Insurance:HUMANA LINEBAUGHDOB: [facility] ALEXANDER GOMEZ, MEDICARE PPOPolicy [id number] Hospital [address]Fan: Number: Repository [id number] (HP) Date:7824-41-63NB [address] [address]YI: 10/17/2018 Secondary LOVE E [place] Insurance:ME MEDICAL LINEBAUGHDOB: [facility] Number: [id number] Hospital [id number] Repository Date:4474-59-14RRK SERVICE [id number] [place], [place] [address]PB: [phone] X2003 10/17/2018 Tertiary NOT GIVENUNK Wild Insurance:SELF PAY [facility] Number: Effective Repository Date:2018-10-17 10/17/2018 LOVE E Primary LOVE E Wild [id number] Insurance:HUMANA LINEBAUGHDOB: [facility] ALEXANEDR GOMEZ, MEDICARE PPOPolicy [id number] Hospital [address]Gge: Number: Repository [id number] (HP) Date:3853-75-39ZL [address] [place] [address]XW: 10/17/2018 Secondary LOVE E [place]ga Insurance:ME MEDICAL LINEBAUGHDOB: [facility] Number: [id number] Hospital [id number] Repository Date:8051-86-62JBD SERVICE [id number] [place], [place] [address]IB: [phone] X2003 10/17/2018 Tertiary NOT GIVENUNK Wild Insurance:SELF PAY [facility] Number: Effective Repository Date:2018-10-17 10/16/2018 LOVE E Primary LOVE [place] [id number] Insurance:HUMANA LINEBAUGHDOB: [facility]EL, MEDICARE PPOPolicy [id number] Hospital [address]Zin: Number: Repository [id number] () Date:9415-48-76NU [address] [address]GS: 10/16/2018 Secondary LOVE Plasencia Olga Insurance:ME MEDICAL LINEBAUGHDOB: [facility] Number: [id number] Hospital [id number] Repository Date:3215-89-52NNJ SERVICE [id number] [place], [place] [address]GP: [phone] X2003 10/16/2018 Tertiary NOT GIVENUNK [place] Insurance:SELF PAY [facility] Number: Effective Repository Date:2018-10-16 10/13/2018 LOVE E Primary LOVE Velarde LINEBAUGHDOB: Insurance:HUMANA LINEBAUGHDOB: Health [facility] CHOICE PPO PT APolicy [id number] Repository [facility], Number: Effective [place] Date:2018-08-28 - [address]Umc: [id number] Name:[facility] BOX ()Tel: (088) [address] [place] [phone] ([place]) [address]WP: 10/13/2018 Secondary LOVE Velarde Insurance:HUMANA LINEBAUGHDOB: [facility] System CHOICE PPO PT BPolicy [id number] Repository Number: Effective Date:2018-08-283528-99-57Gmdm Name:BP BERTHA [address] [place] [address]TB: 10/10/2018 LOVE E Primary LOVE E [place]ga [id number] Insurance:HUMANA LINEBAUGHDOB: [facility] ALEXANDER GOMEZ, MEDICARE PPOPolicy [id number] Hospital [place] [address]Cnj: Number: Repository [id number] (HP) Date:0823-16-34NP [address] [address]NN: 10/10/2018 Secondary LOVE E [place] Insurance:ME MEDICAL LINEBAUGHDOB: [facility] Number: [id number] Hospital [id number] Repository Date:0754-40-07PPE SERVICE [id number] [place], [place] [address]HC: [phone] X2003 10/10/2018 Tertiary NOT GIVENUNK Ol[place] Insurance:SELF PAY [facility] Number: Effective Repository Date:2018-10-10 10/08/2018 LOVE E Primary LOVE E Wild [id number] Insurance:HUMANA LINEBAUGHDOB: [facility] ALEXANDER GOMEZ, MEDICARE PPOPolicy [id number] Hospital [place] [address]Fds: Number: Repository [id number] (HP) Date:0677-65-65HU [address] [address]IJ: 10/08/2018 Secondary LOVE E [place] Insurance:ME MEDICAL LINEBAUGHDOB: [facility] Number: [id number] Hospital [id number] Repository Date:3004-42-09XYQ SERVICE [id number] [place], [place] [address]DC: [phone] X2003 10/08/2018 Tertiary NOT GIVENUNK Wild Insurance:SELF PAY [facility] Number: Effective Repository Date:2018-10-08 10/07/2018 LOVE E Primary LOVE E Olga [id number] Insurance:HUMANA LINEBAUGHDOB: [facility] ALEXANDER GOMEZ, MEDICARE [facility] [id number] Hospital [place] [address]Vul: Number: Repository [id number] (HP) Date:4177-90-69AQ[address] [address]YB: 10/07/2018 Secondary LOVE [place] Insurance:ME MEDICAL LINEBAUGHDOB: [facility] Number: [id number] Hospital [id number] Repository Date:2087-83-07XEQ SERVICE [id number] [place], [place] [address]MA: [phone] X2003 10/07/2018 Tertiary NOT GIVENUNK Wild Insurance:SELF PAY [facility] Number: Effective Repository Date:2018-10-07 10/03/2018 LOVE E Primary LOVE [place] [id number] Insurance:HUMANA LINEBAUGHDOB: [facility] JASON, MEDICARE PPOPolicy [id number] Hospital [address]Npm: Number: Repository [id number] (HP) Date:8167-32-97UE[address] [address]NY: 10/03/2018 Secondary NOT GIVENUNK Olga Insurance:SELF PAY [facility] Number: Effective Repository Date:2018-10-03 10/02/2018 LOVE E Primary LOVE [place] [id number] Insurance:HUMANA LINEBAUGHDOB: [facility] SADIDANIEL, MEDICARE PPOPolicy [id number] Hospital [place] [address]Asg: Number: Repository [id number] (HP) Date:7131-94-81RG[address] [address]CD: 10/02/2018 Secondary NOT GIVENUNK Olga Insurance:SELF PAY [facility] Number: Effective Repository Date:2018-10-02 09/21/2018 LOVE E Primary LOVE Velarde LINEBAUGHDOB: Insurance:HUMANA LINEBAUGHDOB: Health System CHOICE PPO PT APolicy [id number] Repository ALEXANDER GOMEZ, Number: Effective [place] Date:2018-08-28 - [address]Nkf: [id number] Name:[facility] BOX (HP)Tel: (729) [address] [place] [phone] ([place]) [phone]: 09/21/2018 Secondary LOVE Velarde Insurance:HUMANA LINEBAUGHDOB: Health System CHOICE PPO [facility] [id number] Repository Number: Effective Date:2018-08-2820231810-13-24Qdxk Name:[facility] [address] [place] [address]WH: 07/15/2018 LOVE E Primary LOVE E Olga [id number] Insurance:HUMANA LINEBAUGHDOB: [facility], MEDICARE PPOPolicy [id number] Hospital [address]Geo: Number: Repository [id number] (HP) Date:4446-11-21ZW[address] [address]OP: 07/15/2018 Secondary NOT GIVENUNK Wild Insurance:SELF PAY [facility] Number: Effective Repository Date:2018-07-15 12/18/2017 LOVE E Primary LOVE E Wild [id number] Insurance:HUMANA LINEBAUGHDOB: [facility], MEDICARE PPOPolicy [id number] [place] [address]Sdj: Number: Repository [id number] (HP) Date:4669-99-31MP[address] [address]OL: 12/18/2017 Secondary NOT GIVENUNK Ol[place] Insurance:SELF PAY [facility] Number: Effective Repository Date:2017-10-03 12/14/2017 Love E Primary Love E Wild [id number] Insurance:HUMANA LinebaughDOB: [facility], MEDICARE PPOPolicy [id number] Hospital [address]Jne: Number: Repository [id number] (HP) Date:9006-83-31KV[address] [address]NE: 12/14/2017 Secondary NOT GIVENUNK Wild Insurance:SELF PAY [facility] Number: Effective Repository Date:2017-12-14 12/13/2017 Love Plasencia Primary Love [place] [id number] Insurance:HUMANA LinetoñaDOB: [facility] CtWoostemmanuel, MEDICARE PPOPoly [id number] Hospital [address]Xit: Number: Repository [id number] (HP) Date:5039-16-86WS[address] [address]YH: 12/13/2017 Secondary NOT GIVENUNK Wild Insurance:SELF PAY [facility] Number: Effective Repository Date:2017-12-13
== END ==
PROVIDERS: Family Provider Family Medicine; PCP Family Medicine
DX: Z79.01 Long term (current) use of 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 (principal)
CPT/HCPCS: 85610

== ENCOUNTER 2018-10-17 10:35 | Outpatient (RCR) | payer MEDICARE, OTHER, SELFPAY ==
[2018-10-17 09:28] VITALS: BMI 30.1
[2018-10-17 11:21] LABS: International Normalized Ratio 1.5; Prothrombin Time (Protime)PT. 18.2 SECONDS (11.7-14.9)
== END 2018-10-17 11:00 | disposition home or self-care (01) ==
LOC: LAB 10:35
PROVIDERS: Family Provider Family Medicine; PCP Family Medicine; Referring Provider Internal Medicine Cardiovascular Disease; Visit Provider Internal Medicine Cardiovascular Disease
DX: Z79.01 Long term (current) use of 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 (principal)
CPT/HCPCS: 36415; 85610

== ENCOUNTER → 2018-10-24 11:14 | Outpatient (CLI) | payer MEDICARE, OTHER, SELFPAY ==
[2018-10-03 14:23] VITALS: BMI 70.0
[2018-10-17 09:28] VITALS: BMI 30.1
[2018-10-24 12:16] LABS: International Normalized Ratio 1.6; Prothrombin Time (Protime)PT. 19.5 SECONDS (11.7-14.9)
== END ==
PROVIDERS: Family Provider Family Medicine; PCP Family Medicine; Referring Provider Internal Medicine Cardiovascular Disease; Visit Provider Internal Medicine Cardiovascular Disease
DX: Z79.01 Long term (current) use of 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 (principal)
CPT/HCPCS: 36415; 85610

== ENCOUNTER → 2018-11-18 12:01 | Outpatient (CLI) | payer MEDICARE, OTHER, SELFPAY ==
--- NOTE | 2018-11-18 13:01 | PCM.CR.HP2 ---
CR - History & Physical - General Arrival date:: 11/18/18 Arrival time:: 12:00 Date of Referral:: 10/17/18 Date of CR Evaluation:: 11/18/18 Referring Physician: DR. Med MEIER Primary Diagnosis: HEART VALVE REPAIR/REPLACEMENT [facility] - History of Present Cardiac Event Onset Date: Enter Onset Date of cardiac illnesses in Comment field below Acute Myocardial Infarction within 12 months:: Yes - 2009 Heart valve replacement or repair:: Yes - 09/26/2018 PTCA or coronary stenting:: Yes - 2009 Heart Failure EF <35%:: Yes - 08/2018 Type of Symptoms:: ACUTE SHORTNESS OF BREATH, FELT COULDN'T BREATHE. Were there any complications?: NONE - Medications Home Medications: Ambulatory Orders Medication Instructions Recorded aspirin 81 mg tablet,delayed 81 mg PO QDAY tab 12/11/17 release insulin aspart U- 100 100 unit/mL See Rx Instructions SC BID 12/18/17 subcutaneous cartridge insulin glargine (U-100) 100 See Rx Instructions SC QDAY 12/18/17 unit/mL (3 mL) subcutaneous pen glipizide 10 mg tablet 10 mg PO BID 10/16/18 losartan 25 mg tablet 25 mg PO DAILY #90 tab 10/17/18 metformin 1,000 mg tablet 500 mg PO BID tab 10/17/18 metoprolol tartrate 50 mg tablet 50 mg PO BID #180 tab 10/27/18 spironolactone 50 mg tablet 50 mg PO DAILY #90 tab 10/27/18 atorvastatin 20 mg tablet 20 mg PO QHS #30 tab 10/31/18 warfarin 5 mg tablet 5 mg PO QHS #30 tab 11/10/18 Warfarin [Coumadin (PBKC)] 5 mg PO DAILY 11/18/18 Warfarin [Coumadin ([facility])] 5 mg PO DAILY 11/18/18 - Allergies Allergies/Adverse Reactions: Allergies doxycycline Allergy (Verified 10/17/18 08:21) hives - Sleep Disorder Evaluation Hx of Sleep Apnea: No Do you snore loudly (louder than talking or can be heard through closed doors)?: No Do you often feel tired/ fatigued/ sleepy during daytime?: Yes - RETIRED SO USUALLY TAKES A NAP ABOUT AN HOUR AFTER LUNCH DAILY. Has anyone observed you stop breathing during sleep?: No History of Hypertension (for STOP score): Yes STOP Results: Positive Advanced Directives - Advanced Directives Power of Life Support Technician: Yes Living Will: Yes Advance Directives Information Provided: No Advance Directives on File: Yes DNR Order?:: No - MOLST See MOLST form: No Past Medical History - Past Medical Illness Medical History: Past Medical History (Last Reviewed 10/17/18 @ 10:06 by Hemant Meier MD) Acute on chronic diastolic (congestive) heart failure (Chronic) I50.33 Non-rheumatic mitral regurgitation (Chronic) I34.0 Flail anterior leaflet Atherosclerotic 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[place] coronary artery without angina pectoris (Chronic) I25.10 PCI-RADHA-OM1 w/ 2.75 x 23 mm Promus Stent , Mid Cx w/ 3.0 x 15 mm Promus Stent and Prox LAD w/ 2.5 x 28 mm Promus Stent 03/09/2010 Hyperlipidemia (Chronic) E78.5 Essential (primary) hypertension (Chronic) I10 Hyperlipidemia (Chronic) E78.5 Renal insufficiency N28.9 Diabetes mellitus type II, controlled E11.9 Ischemic cardiomyopathy I25.5 Occlusion and stenosis of right carotid artery I65.21 Old myocardial infarction I25.2 - Past Surgical History Surgical History: Past Surgical History (Last Reviewed 10/17/18 @ 10:06 by Hemant Meier MD) History of mitral valve replacement with bioprosthetic valve (Resolved) Onset Date: 09/26/18 Z95.3 27 mm Medtronic Weldon Tissue Valve History of coronary artery stent placement (Resolved) Onset Date: 03/09/10 Z95.5 PCI-RADHA-OM1 w/ 2.75 x 23 mm Promus Stent , Mid Cx w/ 3.0 x 15 mm Promus Stent and Prox LAD w/ 2.5 x 28 mm Promus Stent 03/09/2010 History of left heart catheterization Onset Date: 09/22/18 Z98.890 Occluded RCA L-R collaterals, LAD and Cx stents are patent 09/22/18 - Family History Summary Family History: Family History (Last Reviewed 10/17/18 @ 10:06 by Hemant Meier MD) Father CAD (coronary artery disease) Hx CABG x4 vessels Myocardial infarction, Onset Age: 50 Mother Breast cancer Social History - Smoking History Smoking Status: Former smoker Hx Smoking Cessation Date: 1998 Hx Tobacco Use: Yes Hx Smoking Exposure: No - Alcohol Use Alcohol Usage: Yes - OCCASIONALLY. - Substance Abuse Hx Substance Use: No - Occupation Occupation (List type of work in comments):: Retired - Hobbies, Recreation, Social Activities Hobbies: Other - FISHING, BOATING, OUTDOOR SPORTS Recreational Activities: I am able to engage in most, but not all activities - STILL HAS WEIGHT LIMIT OF 5# ON RIGHT SIDE AND SOME WEAKNESS A RESULT. Social Environment - Status Marital Status: - Current Living Arrangements Living Environment:: Spouse - Children How many children do you have?: 4 Do any of your children live nearby?: Yes - IN [facility], [facility] AND [place] - Safety Do you feel safe in your surroundings?: Yes - Assistance Do you need any assistance at home?: NONE Review of Systems - Review of Systems Hints: Right click = Denies (Slash). Left click = Reports ([place]) Review of Present Symptoms: Reports: Operative Discomfort, Dizziness/Lightheadedness - WHEN INCREASED WARFARIN DURING MU-ISM FOUND STANDING TO SING FELT A LITTLE DIZZY BUT NOTHING MAJOR., Fatigue, Appetite - Normal, Appetite - Special Diet - LOW SODIUM, DIABETIC, LOW CARB DIET., Sleep - Normal. Denies: Shortness of Breath at Rest, Shortness of Breath with Exertion, Heart Arrhythmia/Irregularities - Pain Is Patient Pain Free?: Yes Pain Location: none Pain Level: 2/10 - RIGHT SIDED AT SURGICAL SITE. Risk Factor Assessment - Chief Complaint Chief Complaint: PATIENT IS A VERY PLEASENT MALE OF DR MEIER WHO PRESENTS TO CR TODAY FOLLOWING A RECENT VALVE REPLACEMETN AT [facility] IN [place], [place]. HE WAS VISITING HIS DAUGHTER AND IN THE MIDDLE OF THE NIGHT EXPERIENCED SEVERE SHORTNESS OF BREATH AND REQUIRED EMS FOR TRANSPORT TO HOSPITAL - Vital Signs Temperature: 98.7 F Respiratory Rate: 16 Pulse Ox: 94 Blood Pressure: 144/62 Nailbeds:: PINK - Pulse Pulse Rate: 74 Pulse Rhythm: Regular - Hypertension How long have you been treated?: SINCE AGE OF 52, SO ABOUT 20 YEARS. Blood Pressure Sitting - Left Arm: 144/62 - Diabetes Diabetic History: Type II, Insulin Dependent Nutrition Referral for Diabetes: Yes - Obesity Height: 5 ft 11 in Weight:: 216 lb Weight in Pounds: 216.0 lbs Weight Source: Standing Scale Body Mass Index (BMI): 30.1 Nutritional Referral for Obesity: Yes - Physical Inactivity Physical Inactivity: Reg Exercise 30 min/day - HAS EQUIPMENT AT HOME TO USE BUT HASNT DONE ANYTHING SINCE SURGERY/ ALSO WAS SWIMMING REGULARLY., None - Risk Stratification Risk Guidelines: Lowest Risk: Risk Factor for Smoking, Risk Factor for Dyslipidemia, Risk Factor for Sedentary Lifestyle, Risk Factor for Depression, Moderate Risk: Risk Factor for Diabetes, Risk Factor for Hypertension, Highest Risk: Risk Factor for Obesity - For Smoking Smoking Risk Guidelines: Smoking Low Risk: None or quit greater than 6 months ago. Smoking Moderate Risk: Smoker or quit 6 months or less ago. Smoking High Risk: Smoker - For Dyslipidemia Dyslipidemia Risk Guidelines: Low Risk: Moderate Risk: High Risk: 15-25% fat 25.1-29% fat >/= 30% fat. <7% sat fat 7-9% sat fat >9% sat fat. <150 mg chol 150-299 mg chol >/= 300 mg chol. LDL <100 LDL 100-129 LDL >/= 130. Chol/HDL ratio <5.0 Chol/HDL ratio 5.0-6.0 Chol/HDL ratio >6.0. Triglycerides <100 Triglycerides 100-149 Triglycerides >/= 150 - For Diabetes Mellitus Diabetes Risk Guidelines: Diabetes Low Risk: HgA1c <6.5% and/or FBG <120. Diabetes Moderate Risk: HgA1c 6.6-7.9% and/or FBG 120-180. Diabetes High Risk: HgA1c >/= 8% and/or FBG >180 - For Obesity/Overweight Obesity/Overweight Risk Guidelines: Obesity Low Risk: BMI <25.0. Obesity Moderate Risk: BMI 25-29.9. Obesity High Risk: BMI >/= 30.0 - For Hypertension Hypertension Risk Guidelines: Hypertension Low Risk: Systolic <120 and Diastolic <80. Hypertension Moderate Risk: Systolic 120-139 and Diastolic 80-89. Hypertension High Risk: Systolic >/= 140 and Diastolic >/= 90 - For Sedentary Lifestyle Sedentary Lifestyle Risk Guidelines: Sedentary Lifestyle Low Risk: >/= 1,500 kcal/week. Sedentary Lifestyle Moderate Risk: 700-1,499 kcal/week. Sedentary Lifestyle High Risk: < 700 kcal/week - For Depression Depression Risk Guidelines: Depression Low Risk: Not clinically depressed. Depression Moderate Risk: Mildly depressed. Depression High Risk: Clinically depressed - Family History Family History: Family History (Last Reviewed 10/17/18 @ 10:06 by Hemant Meier MD) Father CAD (coronary artery disease) Myocardial infarction, Onset Age: 50 Mother Breast cancer Motivation - Motivation to Participate On a scale of 1 to 10, how prepared are you to commit to attending program?: 10 What do you see as barriers to successfully being able to complete the program?: WEATHER, HAS TO DRIVE, LEAGALLY BLIND SO HAS TO PROVIDE TRANSPORT What do you see as the benefits of succesfully completing the program? In other words, what do you hope to get out of participating in the program?: GETTING BACK IN TO MY EXERCISE ROUTINE REGULARLY. Are there issues you are dealing with that will interfere with completing the program?: NONE Do you have a spouse or signficant other, family or friends who will help support you to complete the program?: YES.
--- NOTE | 2018-11-18 13:09 | CR.HP_ITS ---
CR - History & Physical - General Arrival date:: 11/18/18 Arrival time:: 12:00 Date of Referral:: 10/17/18 Date of CR Evaluation:: 11/18/18 Referring Physician: DR. Med MEIER Primary Diagnosis: HEART VALVE REPAIR/REPLACEMENT [facility] - History of Present Cardiac Event Onset Date: Enter Onset Date of cardiac illnesses in Comment field below Acute Myocardial Infarction within 12 months:: Yes - 2009 Heart valve replacement or repair:: Yes - 09/26/2018 PTCA or coronary stenting:: Yes - 2009 Heart Failure EF <35%:: Yes - 08/2018 Type of Symptoms:: ACUTE SHORTNESS OF BREATH, FELT COULDN'T BREATHE. Were there any complications?: NONE - Medications Home Medications: Ambulatory Orders Medication Instructions Recorded aspirin 81 mg tablet,delayed 81 mg PO QDAY tab 12/11/17 release insulin aspart U- 100 100 unit/mL See Rx Instructions SC BID 12/18/17 subcutaneous cartridge insulin glargine (U-100) 100 See Rx Instructions SC QDAY 12/18/17 unit/mL (3 mL) subcutaneous pen glipizide 10 mg tablet 10 mg PO BID 10/16/18 losartan 25 mg tablet 25 mg PO DAILY #90 tab 10/17/18 metformin 1,000 mg tablet 500 mg PO BID tab 10/17/18 metoprolol tartrate 50 mg tablet 50 mg PO BID #180 tab 10/27/18 spironolactone 50 mg tablet 50 mg PO DAILY #90 tab 10/27/18 atorvastatin 20 mg tablet 20 mg PO QHS #30 tab 10/31/18 warfarin 5 mg tablet 5 mg PO QHS #30 tab 11/10/18 Warfarin [Coumadin (PBKC)] 5 mg PO DAILY 11/18/18 Warfarin [Coumadin ([facility])] 5 mg PO DAILY 11/18/18 - Allergies Allergies/Adverse Reactions: Allergies doxycycline Allergy (Verified 10/17/18 08:21) hives - Sleep Disorder Evaluation Hx of Sleep Apnea: No Do you snore loudly (louder than talking or can be heard through closed doors)?: No Do you often feel tired/ fatigued/ sleepy during daytime?: Yes - RETIRED SO USUALLY TAKES A NAP ABOUT AN HOUR AFTER LUNCH DAILY. Has anyone observed you stop breathing during sleep?: No History of Hypertension (for STOP score): Yes STOP Results: Positive Advanced Directives - Advanced Directives Power of Compliance Consultant: Yes Living Will: Yes Advance Directives Information Provided: No Advance Directives on File: Yes DNR Order?:: No - MOLST See MOLST form: No Past Medical History - Past Medical Illness Medical History: Past Medical History (Last Reviewed 10/17/18 @ 10:06 by Hemant Meier MD) Acute on chronic diastolic (congestive) heart failure (Chronic) I50.33 Non-rheumatic mitral regurgitation (Chronic) I34.0 Flail anterior leaflet Atherosclerotic 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[place] coronary artery without angina pectoris (Chronic) I25.10 PCI-RADHA-OM1 w/ 2.75 x 23 mm Promus Stent , Mid Cx w/ 3.0 x 15 mm Promus Stent and Prox LAD w/ 2.5 x 28 mm Promus Stent 03/09/2010 Hyperlipidemia (Chronic) E78.5 Essential (primary) hypertension (Chronic) I10 Hyperlipidemia (Chronic) E78.5 Renal insufficiency N28.9 Diabetes mellitus type II, controlled E11.9 Ischemic cardiomyopathy I25.5 Occlusion and stenosis of right carotid artery I65.21 Old myocardial infarction I25.2 - Past Surgical History Surgical History: Past Surgical History (Last Reviewed 10/17/18 @ 10:06 by Hemant Meier MD) History of mitral valve replacement with bioprosthetic valve (Resolved) Onset Date: 09/26/18 Z95.3 27 mm Medtronic Weldon Tissue Valve History of coronary artery stent placement (Resolved) Onset Date: 03/09/10 Z95.5 PCI-RADHA-OM1 w/ 2.75 x 23 mm Promus Stent , Mid Cx w/ 3.0 x 15 mm Promus Stent and Prox LAD w/ 2.5 x 28 mm Promus Stent 03/09/2010 History of left heart catheterization Onset Date: 09/22/18 Z98.890 Occluded RCA L-R collaterals, LAD and Cx stents are patent 09/22/18 - Family History Summary Family History: Family History (Last Reviewed 10/17/18 @ 10:06 by Hemant Meier MD) Father CAD (coronary artery disease) Hx CABG x4 vessels Myocardial infarction, Onset Age: 50 Mother Breast cancer Social History - Smoking History Smoking Status: Former smoker Hx Smoking Cessation Date: 1998 Hx Tobacco Use: Yes Hx Smoking Exposure: No - Alcohol Use Alcohol Usage: Yes - OCCASIONALLY. - Substance Abuse Hx Substance Use: No - Occupation Occupation (List type of work in comments):: Retired - Hobbies, Recreation, Social Activities Hobbies: Other - FISHING, BOATING, OUTDOOR SPORTS Recreational Activities: I am able to engage in most, but not all activities - STILL HAS WEIGHT LIMIT OF 5# ON RIGHT SIDE AND SOME WEAKNESS A RESULT. Social Environment - Status Marital Status: - Current Living Arrangements Living Environment:: Spouse - Children How many children do you have?: 4 Do any of your children live nearby?: Yes - IN [facility], [facility] AND [place] - Safety Do you feel safe in your surroundings?: Yes - Assistance Do you need any assistance at home?: NONE Review of Systems - Review of Systems Hints: Right click = Denies ([place]ash). Left click = Reports ([place]) Review of Present Symptoms: Reports: Operative Discomfort, Dizziness/Lightheadedness - WHEN INCREASED WARFARIN DURING EPISCOPALIAN FOUND STANDING TO SING FELT A LITTLE DIZZY BUT NOTHING MAJOR., Fatigue, Appetite - Normal, Appetite - Special Diet - LOW SODIUM, DIABETIC, LOW CARB DIET., Sleep - Normal. Denies: Shortness of Breath at Rest, Shortness of Breath with Exertion, Heart Arrhythmia/Irregularities - Pain Is Patient Pain Free?: Yes Pain Location: none Pain Level: 2/10 - RIGHT SIDED AT SURGICAL SITE. Risk Factor Assessment - Chief Complaint Chief Complaint: PATIENT IS A VERY PLEASENT MALE OF DR MEIER WHO PRESENTS TO CR TODAY FOLLOWING A RECENT VALVE REPLACEMETN AT [facility] IN [place], [place]. HE WAS VISITING HIS DAUGHTER AND IN THE MIDDLE OF THE NIGHT EXPERIENCED SEVERE SHORTNESS OF BREATH AND REQUIRED EMS FOR TRANSPORT TO HOSPITAL - Vital Signs Temperature: 98.7 F Respiratory Rate: 16 Pulse Ox: 94 Blood Pressure: 144/62 Nailbeds:: PINK - Pulse Pulse Rate: 74 Pulse Rhythm: Regular - Hypertension How long have you been treated?: SINCE AGE OF 52, SO ABOUT 20 YEARS. Blood Pressure Sitting - Left Arm: 144/62 - Diabetes Diabetic History: Type II, Insulin Dependent Nutrition Referral for Diabetes: Yes - Obesity Height: 5 ft 11 in Weight:: 216 lb Weight in Pounds: 216.0 lbs Weight Source: Standing Scale Body Mass Index (BMI): 30.1 Nutritional Referral for Obesity: Yes - Physical Inactivity Physical Inactivity: Reg Exercise 30 min/day - HAS EQUIPMENT AT HOME TO USE BUT HASNT DONE ANYTHING SINCE SURGERY/ ALSO WAS SWIMMING REGULARLY., None - Risk Stratification Risk Guidelines: Lowest Risk: Risk Factor for Smoking, Risk Factor for Dysli pidemia, Risk Factor for Sedentary Lifestyle, Risk Factor for Depression, Moderate Risk: Risk Factor for Diabetes, Risk Factor for Hypertension, Highest Risk: Risk Factor for Obesity - For Smoking Smoking Risk Guidelines: Smoking Low Risk: None or quit greater than 6 months ago. Smoking Moderate Risk: Smoker or quit 6 months or less ago. Smoking High Risk: Smoker - For Dyslipidemia Dyslipidemia Risk Guidelines: Low Risk: Moderate Risk: High Risk: 15-25% fat 25.1-29% fat >/= 30% fat. <7% sat fat 7-9% sat fat >9% sat fat. <150 mg chol 150-299 mg chol >/= 300 mg chol. LDL <100 LDL 100-129 LDL >/= 130. Chol/HDL ratio <5.0 Chol/HDL ratio 5.0-6.0 Chol/HDL ratio >6.0. Triglycerides <100 Triglycerides 100-149 Triglycerides >/= 150 - For Diabetes Mellitus Diabetes Risk Guidelines: Diabetes Low Risk: HgA1c <6.5% and/or FBG <120. Diabetes Moderate Risk: HgA1c 6.6-7.9% and/or FBG 120-180. Diabetes High Risk: HgA1c >/= 8% and/or FBG >180 - For Obesity/Overweight Obesity/Overweight Risk Guidelines: Obesity Low Risk: BMI <25.0. Obesity Moderate Risk: BMI 25-29.9. Obesity High Risk: BMI >/= 30.0 - For Hypertension Hypertension Risk Guidelines: Hypertension Low Risk: Systolic <120 and Diastolic <80. Hypertension Moderate Risk: Systolic 120-139 and Diastolic 80-89. Hypertension High Risk: Systolic >/= 140 and Diastolic >/= 90 - For Sedentary Lifestyle Sedentary Lifestyle Risk Guidelines: Sedentary Lifestyle Low Risk: >/= 1,500 kcal/week. Sedentary Lifestyle Moderate Risk: 700-1,499 kcal/week. Sedentary Lifestyle High Risk: < 700 kcal/week - For Depression Depression Risk Guidelines: Depression Low Risk: Not clinically depressed. Depression Moderate Risk: Mildly depressed. Depression High Risk: Clinically depressed - Family History Family History: Family History (Last Reviewed 10/17/18 @ 10:06 by Hemant Meier MD) Father CAD (coronary artery disease) Myocardial infarction, Onset Age: 50 Mother Breast cancer Motivation - Motivation to Participate On a scale of 1 to 10, how prepared are you to commit to attending program?: 10 What do you see as barriers to successfully being able to complete the program?: WEATHER, HAS TO DRIVE, LEAGALLY BLIND SO HAS TO PROVIDE TRANSPORT What do you see as the benefits of succesfully completing the program? In other words, what do you hope to get out of participating in the program?: GETTING BACK IN TO MY EXERCISE ROUTINE REGULARLY. Are there issues you are dealing with that will interfere with completing the program?: NONE Do you have a spouse or signficant other, family or friends who will help support you to complete the program?: YES.
[2018-11-18 13:22] VITALS: BP 144/62; PULSE 74; RESP 16; TEMP 37.1; O2SAT 94; BMI 30.1
--- NOTE | 2018-11-18 13:58 | PCM.CR.ITP ---
General Information - General Information Admitting Diagnosis: VALVE REPLACEMENT Special Needs: DM TYPE II - Education/Goals Barriers to Learning: Vision Impairment Individual Counseling: Initial Assessment: Abnormal Cholesterol Levels, High Blood Pressure, Overweight/Obesity, Diabetes, B. Waist Circumference >35/Females >40/Males, Hypertension, Sedentary Lifestyle Cardiac Rehabilitation Goals: 1. Maintain the individual as the primary focus of care. 2. To improve the patient's quality of life. 3. Identification of cardiac risk factors and provide cardiac risk factor management. 4. Enhance the psychosocial status of the patient. 5. Reconditioning enough to allow the patient to resume customary activities. 6. Control symptoms of cardiac disease Scale for measuring improvement of personal goals: Enter appropriate number in Comments. 2 = Unchanged. 3 = Slightly Better. 4 = Moderate Improvement. 5 = Met my Goal Personal Goals: Initial Assessment: Improve energy level, Participate in home exercise program, Improve muscle strength and endurance Exercise - Initial Assessment - Visit Date of Eval: 11/18/18 Session #:: 0 - START 11/24/18 - Stages of Change Stages of Change:: Action - Exercise Prescription Mode:: Treadmill, Airdyne, NuStep Angina with exercise?: No Target Heart Rate:: 104-112 - Hypertension Do any of the following apply?: Yes, Medication, Diet Resting Blood Pressure:: 144/62 - Intervention Home Exercise/Activity Goal:: Moderate Exercise 30 min/day x 5 days/wk - Education Goals:: Warm-up, RPE SEAN Scale, S/S, Safe Exercise, Self-Monitoring - Exercise Program Goals Exercise Program Goals: Aerobic Activity >30 min Nutrition - Initial Assessment - Program Goals Nutrition Program Goals: LDL <70. Total Cholesterol <200. HDL >45. Triglycerides <150. HgbA1C <7%. BMI <25 - Visit Date of Assessment:: 11/18/18 - Stages of Change Stages of Change:: Action - Diabetes Diabetes:: Yes Insulin: Yes Non-Insulin Dependent?: Yes Do you monitor your blood sugar at home?: Yes - Weight Management Height: 5 ft 11 in Weight:: 216 lb Body Fat %:: 30.1 - Intervention Referral to dietitian:: Yes Referral to Diabetic Clinic:: Yes Will attend diet classes:: Yes - Education Gave educational materials for:: Signs & symptoms of hypoglycemia, Signs & symptoms of hyperglycemia, Relate diabetes to coronary artery disease, Healthy eating Tobacco - Initial Assessment - Program Goals Tobacco Program Goals: Complete smoking cessation. Attend education classes. Improve Knowledge Test score - Stage of Change Stages of Change:: Action - Learning Barriers Learning Barriers: Vision, Ready to Learn - Family Support Do you have family support?: Yes - Tobacco Use Tobacco Use: Non-smoker Do you use smokeless tobacco?: No - Intervention Smoking Cessation Referral:: No Individual Education/Counseling:: No Education Schedule Given:: Yes - Education Gave educational material for:: Coronary artery disease, Risk factors, Sexuality, Medical compliance, Cardiac A&P, Angina signs & symptoms Psychosocial - Initial Assess - Target Goals Target Goals: Assess presence or absence of depression. Using a valid screening tool, maximizes coping skills. Positive support system - Stages of Change Stages of Change:: Action - Psychosocial Test Tool Used:: HANDS Depression Questionnaire - Intervention PS - Interventions: Yes Attend Stress Management Classes, Yes Uses Stress Management Skills, No Referral to Mental Health, No Referral to [facility] Case Management, No Referral to Physician - Education Gave educational materials for:: Coping techniques, Signs & symptoms of depression, Stress management, Relaxation techniques - Patient/Program Goal Preventative Medication(s):: Aspirin, Clopidogrel, Beta brisa, Statin/lipid - Assistive Devices Assistive Devices:: None Fall Risk Assessed:: Yes Patient Health Questionnaire Initial Assessment 1. Little interest or pleasure in doing things: Not at all 2. Feeling down, depressed, or hopeless: Not at all 3. Trouble falling or staying asleep, or sleeping too much: Not at all 4. Feeling tired or having little energy: Not at all 5. Poor appetite or overeating: Not at all 6. Feeling bad about yourself -- or that you are a failure or have let yourself or your family down: Not at all 7. Trouble concentrating on things, such as reading the newspaper or watching television: Not at all 8. Moving or speaking so slowly that other people could have noticed. Or the opposite - being so fidgety or restless that you have been moving around a lot more than usual: Not at all 9. Thoughts that you would be better off , or of hurting yourself in some way: Not at all Total Score: 0 KASSANDRA-Q SV Test - Statements CAD is a disease of the arteries in the heart: False Examples of risk factors for heart disease: True Angina is chest pain or discomfort: True The benefits of resistance training include: True Eating more meat and dairy products: False Anti-platelet medications such as aspirin are important: False The only effective way to manage stress: False An exercise warm-up slowly increases heart rate: True Prepared, processed foods usually have high sodium: True Depression is common after a heart attack: True The statin medications lower cholesterol: True To control blood pressure, lower the amount of sodium: True If someone gets chest discomfort during walking: False Transfats are partially hydrogenated vegetable oils: True Sleep apnea that is not treated increases the risk: False To control cholesterol, one should become a vegetarian: False Someone knows if he/she is exercising at the right level: True Diabetes cannot be prevented with exercise & health eating: False Stress is a large risk for heart attack: True A diet that can help lower blood pressure is rich in: True - Total Score Total Correct Responses: 19 Self-Efficacy Initial Assessment We would like to know how confident you are in doing certain activities. Please select your confidence level for:: Select your confidence level for the following using the scale 1-10 where 1 is not at all confident and 10 is totally confident. Your score is the average of all 6 responses. Fatigue: How confident are you that you can keep the fatigue caused by your disease from interfering with the things you want to do? Select Number: 8 Physical Discomfort or Pain: How confident are you that you can keep the physical discomfort or pain of your disease from interfering with the things you want to do? Select Number: 5 Emotional Distress: How confident are you that you can keep the emotional distress caused by your disease from interfering with the things you want to do? Select Number: 10 Other Symptoms or Health Problems: How confident are you that you can keep other symptoms or health problems from interfering with the things you want to do? Select Number: 10 Different Tasks and Activities: How confident are you that you can do the different tasks and activities needed to manage your health condition so as to reduce your need to see a doctor? Select Number: 7 Medication: How confident are you that you can do things other than just taking medication to reduce how much your illness affects your everyday life? Select Number: 9 Total Score:: 8 Nutrition Survey - Nutrition Survey Instructions Scoring Instructions: Scoring is as follows: Yes = 1 points. No = 0 point. Patient score that is >/=12 is considered to be at potential nutritional risk and could benefit from a referral to a registered dietitian. - Nutrition Survey Initial Have you lost >10 lbs over the past 2 months without trying?: No Are you following a special diet at home for diabetes, low fat, or low salt?: Yes - DIABETIC, CARDIAC DIET Are you interested in meeting with a dietitian for help understanding your diet?: No Do you eat less than 3 meals a day?: No Do you eat fatty meats (jolly, sausage, ribs, etc), fried foods, desserts, large amounts of salad dressings, margarine, butter, or cheese most days?: No Do you have food allergies? [Enter types in comment field]: Yes Do you eat in restaurants more than 3 times a week?: No Do you season food with salt, seasoning salt, or garlic salt?: No Do you used canned, boxed, frozen meals, or soups, seasoning packets?: Yes Total Score:: 3
[2018-11-18 14:04] VITALS: BP 144/62
--- OUTSIDE RECORDS SUMMARY | 2019-01-20 15:52 | XMS RPT_ITS ---
:[address] [facility] Support Name Relationship Address Phone CHAPIS PHELAN Unavailable [address] + [place] [address] KAUFMAN GHASSAN Unavailable [address] + [place] [address] R Unavailable Unavailable Unavailable LINEBAMARYJANE CHAPIS Unavailable [address] + [place] [address] GHASSAN KAUFMAN Unavailable [address] + [place] [address] R Unavailable Unavailable Unavailable LINEBAUGH, CHAPIS Unavailable [address] + [place] [address] GHASSAN KAUFMAN Unavailable [address] + [place] [address] R Unavailable Unavailable Unavailable LINEBAUGH, CHAPIS Unavailable [address] + [place] [address] GHASSAN KAUFMAN Unavailable [address] + [place] [address] R Unavailable Unavailable Unavailable LINEBAUGH, CHAPIS Unavailable [address] + [place] [address] GHASSAN KAUFMAN Unavailable [address] + [place] [address] R Unavailable Unavailable Unavailable LINEBAUGH, CHAPIS Unavailable [address] + [place] [address] GHASSAN KAUFMAN Unavailable [address] + [place] [address] R Unavailable Unavailable Unavailable LINEBAUGH, CHAPIS Unavailable [address] + [place] [address] LINEBAUGH, CHAPIS Unavailable [address] + [place] [address] GHASSAN KAUFMAN Unavailable [address] + [place] [address] R Unavailable Unavailable Unavailable LINEBAUGH, CHAPIS Unavailable [address] + [place] [address] GHASSAN KAUFMAN Unavailable [address] + [place] [address] R Unavailable Unavailable Unavailable LINEBAUGH, CHAPIS Unavailable [address] + [place] [address] GHASSAN KAUFMAN Unavailable [address] + [place] [address] R Unavailable Unavailable Unavailable LINEBAUGH, CHAPIS Unavailable [address] + [place] [address] GHASSAN KAUFMAN Unavailable [address] + [place] [address] R Unavailable Unavailable Unavailable LINEBAUGH, CHAPIS Unavailable [address] + [place] [address] R Unavailable Unavailable Unavailable LINEBAUGH, CHAPIS Unavailable [address] + [place] [address] LINEBAUGH, CHAPIS Unavailable [address] + [place] [address] R Unavailable Unavailable Unavailable LINEBAUGH, CHAPIS Unavailable [address] + [place] [address] R Unavailable Unavailable Unavailable R Unavailable Unavailable Unavailable LINEBAUGH, CHAPIS Unavailable [address] + [place] [address] R Unavailable Unavailable Unavailable KATHE WILLINGHAM Unavailable / + [place], [place] / LINEBAUGH, CHAPIS Unavailable [address] + [place] [address] R Unavailable Unavailable Unavailable KATHE WILLINGHAM Unavailable [...] Referring Unavailable Lorna Salinas Attending Unavailable Lo, Everett Attending Unavailable Tara, Akira Primary Care Unavailable Lo, Everett Referring Unavailable Lo, Everett Attending Unavailable Tara, Akira Referring Unavailable Lo, Hemant Attending Unavailable Lo, Everett Referring Unavailable Tara, Akira Primary Care Unavailable Lo, Everett Attending Unavailable Lo, Everett Referring Unavailable Tara, Akira Primary Care Unavailable Lo, Everett Attending Unavailable Lo, Hemant Referring Unavailable Tara, Akira Primary Care Unavailable Alma Delia Aquino Attending Unavailable Fast, Antonia Referring Unavailable Tara, Akira Primary Care Unavailable Lo, Everett Attending Unavailable Lo, Everett Referring Unavailable Tara, Akira Primary Care Unavailable Ai Sheehan Attending Unavailable Lo, Everett Attending Unavailable Tara, Akira Referring Unavailable ADRIANA BUITRAGO Attending Unavailable Tara, Akira Primary Care Unavailable Tara, Akira Primary Care Unavailable Vasu Zhu Attending Unavailable Lo, Everett Referring Unavailable ADRIANA BUITRAGO Consulting Unavailable PROBLEMS PROBLEMS DATE TYPE CONDITION / CODE ATTENDING STATUS SOURCE 11/18/2018 Unknown Z95.2 - Presence of Lo, Everett Active [place] prosthetic heart Community valve / Hospital Z95.2(ICD-10) Repository 11/10/2018 Unknown 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, 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 Community 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 / Hospital Z79.01(ICD-10) Repository 10/17/2018 Unknown E78.5 - Lo, Hemant Active [facility] Hyperlipidemia, Community unspecified / Hospital E78.5(ICD-10) Repository 10/17/2018 Unknown I10 - Essential Lo, Everett Active [facility] (primary) Community hypertension / Hospital I10(ICD-10) Repository 10/17/2018 Unknown I25.10 - Lo, Hemant Active [facility] Atherosclerotic Community 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[facility] [place] coronary Repository artery without angina pectoris / I25.10(ICD-10) 10/17/2018 Unknown I34.0 - Nonrheumatic Lo, Everett Active [facility] mitral (valve) Community insufficiency / Hospital I34.0(ICD-10) Repository 10/17/2018 Unknown I50.33 - Acute on Lo, Hemant Active [facility] chronic diastolic Community (congestive) heart Hospital failure / Repository I50.33(ICD-10) 10/17/2018 Unknown 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, 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 / Hospital Z95.3(ICD-10) Repository 10/17/2018 Unknown Z95.5 - Presence of Lo, Hemant Active [facility] coronary angioplasty Community implant and graft / Hospital Z95.5(ICD-10) Repository 10/17/2018 Unknown E78.00 - Pure Lo, Hemant Active [facility] hypercholesterolemia Community , unspecified / Hospital E78.00(ICD-10) Repository 10/14/2018 Unknown T82.897A - Other Audra, Active [facility] complication of Hospital cardiac prosthetic Repository devices, implants and grafts, initial encounter / T82.897A(ICD-10) 09/21/2018 Admitting Unknown / MARIANO MORENO Active [place] Diagnosis UNK(Unknown) Health System Repository PROCEDURES PROCEDURES No Procedure Records FoundRESULTS RESULTS CR - HISTORY AND Observed: 11/19/2018 Status: F Source: [place] PH[facility] 4:01 PM [facility] REPOSITORY [facility] Cardiac Rehab [address] [place] [address] CR - History AND Physical MR#: [id number] Acct: [id number] Name: MARIANOLOVE WESLEY Erinn Rep #: [id number] : 1945 73 From: Darrell Jennings 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 Med BLANCHARD Primary Diagnosis: HEART VALVE REPAIR/REPLACEMENT [facility] - History of Present Cardiac Event Onset Date: Enter Onset Date of cardiac illnesses in Comment field below Acute Myocardial Infarction within 12 months:: Yes - 2009 Heart valve replacement or repair:: Yes - 09/26/2018 PTCA or coronary stenting:: Yes - 2009 Heart Failure EF <35%:: Yes - 08/2018 Type of Symptoms:: ACUTE SHORTNESS OF BREATH, FELT COULDN'T BREATHE. Were there any complications?: NONE - Medications Home Medications: Ambulatory Orders Medication Instructions Recorded - Allergies Allergies/Adverse Reactions: Allergies doxycycline Allergy (Verified 10/17/18 08:21) hives - Sleep Disorder Evaluation Hx of Sleep Apnea: No Do you snore loudly (louder than talking or can be heard through closed doors)?: No Do you often feel tired/ fatigued/ sleepy during daytime?: Yes - RETIRED SO USUALLY TAKES A NAP ABOUT AN HOUR AFTER LUNCH DAILY. Has anyone observed you stop breathing during sleep?: No History of Hypertension (for STOP score): Yes STOP Results: Positive Advanced Directives - Advanced Directives Power of Cheerleading Coach: Yes Living Will: Yes Advance Directives Information Provided: No Advance Directives on File: Yes DNR Order?:: No - MOLST See MOLST form: No Past Medical History - Past Medical Illness Medical History: Past Medical History (Last Reviewed 10/17/18 @ 10:06 by Hemant Blanchard MD) Acute on chronic diastolic (congestive) heart failure (Chronic) I50.33 Non-rheumatic mitral regurgitation (Chronic) I34.0 Flail anterior leaflet Atherosclerotic 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[place] coronary artery without angina pectoris (Chronic) I25.10 PCI-RADHA-OM1 w/ 2.75 x 23 mm Promus Stent , Mid Cx w/ 3.0 x 15 mm Promus Stent and Prox LAD w/ 2.5 x 28 mm Promus Stent 03/09/2010 Hyperlipidemia (Chronic) E78.5 Essential (primary) hypertension (Chronic) I10 Hyperlipidemia (Chronic) E78.5 Renal insufficiency N28.9 Diabetes mellitus type II, controlled E11.9 Ischemic cardiomyopathy I25.5 Occlusion and stenosis of right carotid artery I65.21 Old myocardial infarction I25.2 - Past Surgical History Surgical History: Past Surgical History (Last Reviewed 10/17/18 @ 10:06 by Hemant Blanchard MD) History of mitral valve replacement with bioprosthetic valve (Resolved) Onset Date: 09/26/18 Z95.3 27 mm Medtronic [place] Tissue Valve History of coronary artery stent placement (Resolved) Onset Date: 03/09/10 Z95.5 PCI-RADHA-OM1 w/ 2.75 x 23 mm Promus Stent , Mid Cx w/ 3.0 x 15 mm Promus Stent and Prox LAD w/ 2.5 x 28 mm Promus Stent 03/09/2010 History of left heart catheterization Onset Date: 09/22/18 Z98.890 Occluded RCA L-R collaterals, LAD and Cx stents are patent 09/22/18 - Family History Summary Family History: Family History (Last Reviewed 10/17/18 @ 10:06 by Hemant Blanchard MD) Father CAD (coronary artery disease) Hx CABG x4 vessels Myocardial infarction, Onset Age: 50 Mother Breast cancer Social History - Smoking History Smoking Status: Former smoker Hx Smoking Cessation Date: 1998 Hx Tobacco Use: Yes Hx Smoking Exposure: No - Alcohol Use Alcohol Usage: Yes - OCCASIONALLY. - Substance Abuse Hx Substance Use: No - Occupation Occupation (List type of work in comments):: Retired - Hobbies, Recreation, Social Activities Hobbies: Other - FISHING, BOATING, OUTDOOR SPORTS Recreational Activities: I am able to engage in most, but not all activities - STILL HAS WEIGHT LIMIT OF 5# ON RIGHT SIDE AND SOME WEAKNESS A RESULT. Social Environment - Status Marital Status: - Current Living Arrangements Living Environment:: Spouse - Children How many children do you have?: 4 Do any of your children live nearby?: Yes - IN [facility] AND [place] - Safety Do you feel safe in your surroundings?: Yes - Assistance Do you need any assistance at home?: NONE Review of Systems - Review of Systems Hints: Right click = Denies (Slash). Left click = Reports ([place]) Review of Present Symptoms: Reports: Operative Discomfort, Dizziness/Lightheadedness - WHEN INCREASED WARFARIN DURING PROTESTANT FOUND STANDING TO SING FELT A LITTLE DIZZY BUT NOTHING MAJOR., Fatigue, Appetite - Normal, Appetite - Special Diet - LOW SODIUM, DIABETIC, LOW CARB DIET., Sleep - Normal. Denies: Shortness of Breath at Rest, Shortness of Breath with Exertion, Heart Arrhythmia/Irregularities - Pain Is Patient Pain Free?: Yes Pain Location: none Pain Level: 2/10 - RIGHT SIDED AT SURGICAL SITE. Risk Factor Assessment - Chief Complaint Chief Complaint: PATIENT IS A VERY PLEASENT MALE OF DR BLANCHARD WHO PRESENTS TO CR TODAY FOLLOWING A RECENT VALVE REPLACEMETN AT [facility] IN [place], [place]. HE WAS VISITING HIS DAUGHTER AND IN THE MIDDLE OF THE NIGHT EXPERIENCED SEVERE SHORTNESS OF BREATH AND REQUIRED EMS FOR TRANSPORT TO HOSPITAL - Vital Signs Temperature: 98.7 F Respiratory Rate: 16 Pulse Ox: 94 Blood Pressure: 144/62 Nailbeds:: PINK - Pulse Pulse Rate: 74 Pulse Rhythm: Regular - Hypertension How long have you been treated?: SINCE AGE OF 52, SO ABOUT 20 YEARS. Blood Pressure Sitting - Left Arm: 144/62 - Diabetes Diabetic History: Type II, Insulin Dependent Nutrition Referral for Diabetes: Yes - Obesity Height: 5 ft 11 in Weight:: 216 lb Weight in Pounds: 216.0 lbs Weight Source: Standing Scale Body Mass Index (BMI): 30.1 Nutritional Referral for Obesity: Yes - Physical Inactivity Physical Inactivity: Reg Exercise 30 min/day - HAS EQUIPMENT AT HOME TO USE BUT HASNT DONE ANYTHING SINCE SURGERY/ ALSO WAS SWIMMING REGULARLY., None - Risk Stratification Risk Guidelines: Lowest Risk: Risk Factor for Smoking, Risk Factor for Dyslipidemia, Risk Factor for Sedentary Lifestyle, Risk Factor for Depression, Moderate Risk: Risk Factor for Diabetes, Risk Factor for Hypertension, Highest Risk: Risk Factor for Obesity - For Smoking Smoking Risk Guidelines: Smoking Low Risk: None or quit greater than 6 months ago. Smoking Moderate Risk: Smoker or quit 6 months or less ago. Smoking High Risk: Smoker - For Dyslipidemia Dyslipidemia Risk Guidelines: Low Risk: Moderate Risk: High Risk: 15-25% fat 25.1-29% fat >/= 30% fat. <7% sat fat 7-9% sat fat >9% sat fat. <150 mg chol 150-299 mg chol >/= 300 mg chol. LDL <100 LDL 100-129 LDL >/= 130. Chol/HDL ratio <5.0 Chol/HDL ratio 5.0-6.0 Chol/HDL ratio >6.0. Triglycerides <100 Triglycerides 100-149 Triglycerides >/= 150 - For Diabetes Mellitus Diabetes Risk Guidelines: Diabetes Low Risk: HgA1c <6.5% and/or FBG <120. Diabetes Moderate Risk: HgA1c 6.6-7.9% and/or FBG 120- 180. Diabetes High Risk: HgA1c >/= 8% and/or FBG >180 - For Obesity/Overweight Obesity/Overweight Risk Guidelines: Obesity Low Risk: BMI <25.0. Obesity Moderate Risk: BMI 25-29.9. Obesity High Risk: BMI >/= 30.0 - For Hypertension Hypertension Risk Guidelines: Hypertension Low Risk: Systolic <120 and Diastolic <80. Hypertension Moderate Risk: Systolic 120-139 and Diastolic 80-89. Hypertension High Risk: Systolic >/= 140 and Diastolic >/= 90 - For Sedentary Lifestyle Sedentary Lifestyle Risk Guidelines: Sedentary Lifestyle Low Risk: >/= 1,500 kcal/week. Sedentary Lifestyle Moderate Risk: 700-1,499 kcal/week. Sedentary Lifestyle High Risk: < 700 kcal/week - For Depression Depression Risk Guidelines: Depression Low Risk: Not clinically depressed. Depression Moderate Risk: Mildly depressed. Depression High Risk: Clinically depressed - Family History Family History: Family History (Last Reviewed 10/17/18 @ 10:06 by Hemant Blanchard MD) Father CAD (coronary artery disease) Myocardial infarction, Onset Age: 50 Mother Breast cancer Motivation - Motivation to Participate On a scale of 1 to 10, how prepared are you to commit to attending program?: 10 What do you see as barriers to successfully being able to complete the program?: WEATHER, HAS TO DRIVE, LEAGALLY BLIND SO HAS TO PROVIDE TRANSPORT What do you see as the benefits of succesfully completing the program? In other words, what do you hope to get out of participating in the program?: GETTING BACK IN TO MY EXERCISE ROUTINE REGULARLY. Are there issues you are dealing with that will interfere with completing the program?: NONE Do you have a spouse or signficant other, family or friends who will help support you to complete the program?: YES. 11/18/18 1323 <Electronically signed by Darrell Jennings CRT, RCP, BS> Date Darrell Jennings CRT, RCP, BS Outcome assessment reviewed. Exercise plan approved as documented. Treatment plan and goals support patient needs/abilities. Continue with current plan. I certify the patient demonstrates improvement and remains willing and capable of participation. the patient continues to benefit from cardiac rehab services/training. The patient may continue at current intensity, endurance and modality and progress per protocol. 11/19/18 1601 <Electronically signed by Hemant Blanchard MD> Cosigner Signature: Date Hemant Blanchard MD CC: Signed PROTHROMBIN TIME W/INR Collected: 11/10/2018 Status: F Source: [place] 10:48 AM [facility] REPOSITORY TYPE CODE TESTS RESULT OUT OF RANGE REFERENCE UNITS LAB L300.4150 11.7-14.9 SECONDS High PROTIME 21.0 LAB L300.4200 Normal INR 1.8 Performed By: #### L300.3900 #### [facility] [address] [place], [address] PROTHROMBIN TIME W/INR Collected: 10/31/2018 Status: F Source: [place] 10:45 AM [facility] REPOSITORY TYPE CODE TESTS RESULT OUT OF RANGE REFERENCE UNITS LAB L300.4150 11.7-14.9 SECONDS High PROTIME 18.1 LAB L300.4200 Normal INR 1.5 Performed By: #### L300.3900 #### [facility] [address] [place], [address] PROTHROMBIN TIME W/INR Collected: 10/24/2018 Status: F Source: [place] 11:25 AM [facility] REPOSITORY TYPE CODE TESTS RESULT OUT OF RANGE REFERENCE UNITS LAB L300.4150 11.7-14.9 SECONDS High PROTIME 19.5 LAB L300.4200 Normal INR 1.6 Performed By: #### L300.3900 #### [facility] [address] [place], [address] DISCHARGE SUMMARY Observed: 10/17/2018 Status: F Source: [place] 12:22 PM [facility]ALTH [facility] REPOSITORY Patient: LOVE [...] valve for mitral regurgitation. Was discharged to [facility] on POD #5. Plavix was stopped due to being on Coumadin for 3 months for CVA/thrombus prophylaxis. Discharged with [facility] to have INR checks M/W/F and called to CTS office. . Procedures Performed PROCEDURES Mitral valve operation ([id number]) performed by Mariano Moreno MD on 09/26/2018 at 73 Years. Comments: 09/28/2018 16:01 - Paul DHALIWAL , Sarah Dumont MINI LEFT THORACOTAMY, MITRAL VALVE REPLACEMENT. Medications [...] after mealsDx: Insulin-dependant diabetes Miscellaneous Medication (Diabetic [place]) See Instructions Diabetic [place] To administer insulin after each meal and [...] 10/01/2018 09:19 COMMENTS: Future refills from your PCP/Incident Response Manager spironolactone (spironolactone 25 mg oral tablet) 2 [...] Mariano Moreno MD Specialty: Thoracic Surg Address: [address] 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 Your appointment is scheduled for 9:30am. Bring a list of your current medications and hospital discharge paperwork. Provider: PCP Unknown Physician Specialty: Family Practice Address: Date: Follow-up as needed Patient Education Given Mitral Valve Replacement, Heart Failure, Opde-yz-Uige, [place] - Cardiac Surgery Discharge Instructions (CUSTOM), Low-Sodium Eating Plan, Incision Care PROTHROMBIN TIME W/INR Collected: 10/17/2018 Status: F Source: [place] 10:39 AM [facility] REPOSITORY TYPE CODE TESTS RESULT OUT OF RANGE REFERENCE UNITS LAB L300.4150 11.7-14.9 SECONDS High PROTIME 18.2 LAB L300.4200 Normal INR 1.5 Performed By: #### L300.3900 #### [facility] [address] [place], [address] CARDIOLOGY VISIT Observed: 10/17/2018 Status: F Source: [place] REPORT 10:11 AM [facility] REPOSITORY [facility] [address] [place] [address] OFFICE VISIT Date of Service: 10/17/18 MR#: [id number] Acct: [id number] Name: LOVE PHELAN Rep #: [id number] : 1945 Provider: Hemant Blanchard MD Age/Sex: 73/M Location: [facility] Status: Signed HPI HPI Chief Complaint: Follow [...] hypertension and hyperlipidemia. He apparently was in [place] a few weeks ago and developed severe [...] ft 11 in Intake Visit Reasons: SANDRA Velarde 12-5 post stent Allergies doxycycline Allergy (Verified [...] mg PO DAILY 10/17/18 [History Confirmed 10/17/18] PFSH Medical History Acute on chronic diastolic (congestive) heart failure (Chronic) Non-rheumatic mitral regurgitation (Chronic) Atherosclerotic 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[place] coronary artery without angina pectoris (Chronic) Hyperlipidemia [...] Orders: Referrals: 2. 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) Coding Level of Care Code Off vis,est,level 5 Diagnoses History of mitral valve replacement with bioprosthetic valve Z95.3 Atherosclerotic 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[place] coronary artery without angina pectoris I25.10 Pure hypercholesterolemia E78.00 Hyperlipidemia type: pure hypercholesterolemia Essential (primary) hypertension I10 Coding Level of Care Code Off vis,est,level 5 Diagnoses History of mitral valve replacement with bioprosthetic valve Z95.3 Atherosclerotic 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[place] coronary artery without angina pectoris I25.10 Pure hypercholesterolemia E78.00 Hyperlipidemia type: pure hypercholesterolemia Essential (primary) hypertension I10 10/17/18 1011 <Electronically signed by Hemant Blanchard MD> Date Hemant Blanchard MD Cosigner Signature: Date (if applicable) CC: Akira Pacheco MD 12 LEAD EKG PERFORMED Observed: 10/17/2018 Status: F [place] [facility] 9:24 AM [facility] REPOSITORY [facility] [address] [place] [address] 12 Lead EKG performed by [facility] 10/17/18923 MR#: [id number] Acct: [id number] Name: LOVE PHELAN Rep #: [id number] : 1945 73 From: Hemant Blanchard MD Attending Dr: Hemant Blanchard MD Status: DEP AMB Ordering Dr: Hemant Blanchard MD Date: 10/17/18 Location: [facility] Sex: M C Admitted: BMS/12 Lead EKG performed by [facility] ECG Report Interpretation Sinus Rhythm -RSR(V1) -nondiagnostic. -Left atrial enlargement. BORDERLINEElectronically signed on 11/18/2018 at 13:24 by Hemant Blanchard [employer] Software Version 8610 11/18/18 1329 Date Hemant Blanchard MD CC: Akira Pacheco MD Date Dictated: 10/17/18923 Date Transcribed: 10/17/18923 Inventory Control Analyst: [place] Signed PROTHROMBIN TIME Collected: 10/13/2018 Status: F Source: [facility] 12:48 PM HEALTH SYSTEM REPOSITORY TYPE CODE TESTS RESULT OUT OF RANGE REFERENCE UNITS LAB 08036-0([place]) Normal INR 1.41 Result Comment: The recommended therapeutic INR range for most cardiac indications is 2.0-3.0. For high intensity therapy(ie.mechanical heart valves), the recommended range is 2.5-3.5. LAB 5902-2(LOINC) 9.3-12.4 Sec Prothrombin High Time (PT) 16.5 Performed By: #### 5902-2 #### [facility], [address] [place] [address]. PROTHROMBIN TIME W/INR Collected: 10/10/2018 Status: F Source: [place] 10:00 AM [facility] REPOSITORY TYPE CODE TESTS RESULT OUT OF RANGE REFERENCE UNITS LAB L300.4150 11.7-14.9 SECONDS High PROTIME 17.6 LAB L300.4200 Normal INR 1.4 Performed By: #### L300.3900 #### [facility] [address] [place], [address] PROTHROMBIN TIME W/INR Collected: 10/08/2018 Status: F Source: [place] 10:00 AM [facility] REPOSITORY TYPE CODE TESTS RESULT OUT OF RANGE REFERENCE UNITS LAB L300.4150 11.7-14.9 SECONDS High PROTIME 17.4 LAB L300.4200 Normal INR 1.4 Performed By: #### L300.3900 #### [facility] [address] [place], [place], [address] CHEST PA AND LATERAL Observed: 10/07/2018 Status: F Source: [place] 2:18 PM [facility] REPOSITORY [facility] Imaging Services [address] [place] [address] Chest PA and Lateral MR#: [id number] Acct: [id number] Name: LOVE PHELAN Erinn Rep #: [id number] : 1945 M 73 From: Bahman Carias MD PCP: Akira Pacheco MD Status: REG CLI Study: Chest PA and Lateral Date of Exam: 10/07/18 Exam# [id number] Ordering Dr: MARIANO MORENO STUDY: X-RAY CHEST [...] , CC: MARIANO MORENO; Akira Pacheco MD Inventory Control Analyst: Signed CBC-COMPLETE BLOOD CNT Collected: 10/07/2018 Status: F Source: [place] NO DIFF 2:07 PM [facility] REPOSITORY TYPE CODE TESTS [...] MPV 10.8 Performed By: #### L100.0500 #### [facility] [address] [place], [address] BASIC METABOLIC Collected: 10/07/2018 Status: F Source: [place] PROFILE (BMP) 2:07 PM [facility] REPOSITORY TYPE CODE TESTS [...] GAP 7 Performed By: #### L500.2500 #### [facility] [address] [facility] [place], [address] EMERGENCY DEPARTMENT Observed: 10/03/2018 Status: F Source: [place] SUMMARY 5:53 PM [facility] REPOSITORY [facility] Medical Records Department [address] [place] [address] Emergency Department Summary 10/03/18 1602 MR#: [id number] Acct: [id number] Name: LOVE PHELAN Rep #: [id number] : 1945 73 From: Vasu Zhu MD PCP: Akira Pacheco MD Status: DEP ER - ER Visit Summary Date of Service: 10/03/18 Chief Complaint: Drainage from wound History of Present Illness: The patient is a [address] Blanchard and Dr. Akira Pacheco. On September 26 the patient had a mitral valve replacement by Dr. Moreno at [facility]. He reports he was discharged from the [...] Subtherapeutic INR. This note was generated with Freeze Tag dictation software. It may contain incorrect words, [...] problems, contact your Primary Care Provider. Call [facility] ([phone]) or report to the closest Emergency Room. Call 911 if necessary. 10/03/18 1753 <Electronically signed by Vasu Zhu MD> Date Vasu Zhu MD Cosigner Signature (If Indicated): Date CC: Akira Pacheco MD CBC W/DIFF, AUTOMATED Collected: 10/03/2018 Status: F Source: WILD 3:15 PM [facility] REPOSITORY TYPE CODE TESTS [...] Lymph 0.96 Performed By: #### L100.0100 #### [facility] [address] [place], [place], [id number] PROTHROMBIN TIME W/INR Collected: 10/03/2018 Status: F Source: WILD 3:15 PM [facility] REPOSITORY TYPE CODE TESTS RESULT OUT OF RANGE REFERENCE UNITS LAB L300.4150 11.7-14.9 SECONDS High PROTIME 16.8 LAB L300.4200 Normal INR 1.4 Performed By: #### L300.3900 #### [facility] [address] [place], [place], [id number] BASIC METABOLIC Collected: 10/03/2018 Status: F Source: WILD PROFILE (BMP) 3:06 PM [facility] REPOSITORY TYPE CODE TESTS [...] GAP 9 Performed By: #### L500.2500 #### [facility] [address] [facility] [place], [address] CHEST 1 VIEW Observed: 10/03/2018 Status: F Source: [place]ABEL[place] (PORTABLE) 2:50 PM [facility] REPOSITORY [facility] Imaging Services [address] [place] [address] Chest 1 View (Portable) MR#: [id number] Acct: [id number] Name: LOVE PHELAN Rep #: [id number] : 1945 M 73 From: Amarjit Cruz MD PCP: Akira Pacheco MD Status: REG ER Study: Chest 1 View (Portable) Date of Exam: 10/03/18 Exam# [id number] Ordering Dr: Vasu Zhu MD STUDY: X-RAY [...] Amarjit Cruz MD at 15:35 EST Tel [phone], Service support , CC: Vasu Zhu MD; Akira Pacheco MD Inventory Control Analyst: Signed PATIENT SUMMARY Observed: 10/01/2018 Status: C Source: TAPPEN 2:56 PM HEALTH SYSTEM REPOSITORY PATIENT DISCHARGE INSTRUCTIONS If you are having an emergency and are not able to reach your physician, CALL 911 or go to the nearest emergency room and take this document with you. [facility] 10/01/18 14:56 [address] [place]. [address] PATIENT INFORMATION Name: LOVE PHELAN Address: [address] [place] [id number] Age: 73 Years Phone: [phone] : 1945 12:00 Sex: Male Race: White Ethnicity: Not Hispan/Lat Admitted From: [facility]: Thoracic Surgery Nurse Unit/Bed: ERIC (CO) 1P34-37 Admit Date: 09/21/2018 05:02 PCP: Physician, PCP Unknown PHYSICIANS INVOLVED WITH CARE Attending Physicians: Berry AMBRIZ , Mariano - Thoracic Surg Admitting Physician: Robe AMBRIZ, Jose F - Internal Medicine Primary Care Physician:Physician, PCP Unknown,Family Practice,,, - Consults: Andrei EVANS , Daphney S - Oral Maxillofacial Surgery Will AMBRIZ, Emerson P - Internal Medicine, Nephrology Shaikh PB , Akira - CardVas Disease Nael AMBRIZ , Georges A - Nephrology Berry AMBRIZ , Mariano - Thoracic Surg Stephy AMBRIZ, Nica A - Nephrology Abdoulaye AMBRIZ , Abdoulaye Gutierrez - CardVas Disease YOU WERE TREATED IN THE HOSPITAL FOR: Mitral valve regurgitation; S/P MVR (mitral valve replacement) FOLLOW-UP APPOINTMENTS: Provider: Specialty: Address: Date: Mariano Moreno MD Thoracic Surg [address] [place] [address] [address] 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 Your appointment is scheduled for 9:30am. Bring [...] doses are changed, or new medications (including ddjb-bfr-uwsouhi products) are added. Ask your doctor if [...] Days. Refills: 1., Future refills from your PCP/Incident Response Manager Miscellaneous Medication (Diabetic [place]) To administer insulin after each meal and [...] Days. Refills: 1., Future refills from your PCP/Incident Response Manager Comment Miscellaneous Medication (Diabetic [place]) To administer insulin after each meal and [...] HF zone sheet and newsletter. Title-Video/Print Material: [facility] Title-Video/Print Material: Open heart DVD Teaching Method [...] not start or stop any medications or kxlg-xuw-xdumqup medications unless your doctor or pharmacist tells [...] doctor who is following your blood levels. Cogg-fyi-laxyiyb pain relievers: Acetaminophen (Tylenol?) aspirin, ibuprofen, (Motrin?) [...] Decisions Type: Living Will, Medical Power of Cheerleading Coach Copy of Advance Directive/Health Care Decisions on [...] suicide hotline, anytime day or night, at [phone]-BDMV. Important information about accessing your health information through the [place] [facility] patient portal If you initiated the self-registration process for [facility] during your stay, please check your personal email for an invitation to enroll in [facility] and complete the steps outlined in the email. If you would prefer to enroll while in the hospital, ask a member of your care team. We would be happy to assist you. If you have already enrolled in [facility], go to [email or web address] to login and access your health information. Thank you for choosing [employer]. PATIENT EDUCATION Incision Care An incision is [...] 05/03/2006 Document Revised: 11/04/2015 Document Reviewed: 12/08/2014 SocialCompare Interactive Patient Education ?2016 To8to. Cardiac Surgery Discharge Instructions 1. Diet ? [...] to call your Primary Care Physician or Incident Response Manager: ? If you have diabetes and your [...] including vitamins, herbs, eye drops, creams, and ybjw-haz-tvvamwe medicines. ?Previous problems you or members of [...] 02/14/2006 Document Revised: 11/04/2015 Document Reviewed: 03/17/2014 SocialCompare Interactive Patient Education ?2016 [employer] Inc. Low-Sodium Eating Plan Sodium raises blood [...] glutamate (MSG). MSG is sometimes added to Maori food and some canned foods.?Check food labels [...] vegetable juices. Frozen vegetables in sauces. Salted Mosotho fries. Olives. Pickles. Relishes. Sauerkraut. Salsa. Meat [...] Johnson fat. Other? Potato and tortilla chips. [place] chips and puffs. Salted popcorn and pretzels. [...] 04/05/2003 Document Revised: 11/04/2015 Document Reviewed: 08/18/2014 SocialCompare Interactive Patient Education ?2016 [employer]. Heart Failure Heart failure means your [...] 07/23/2009 Document Revised: 11/04/2015 Document Reviewed: 11/30/2013 SocialCompare Interactive Patient Education ?2016 [employer] Inc. What You Should Know About Opioid Medicine What is an Opioid? Opioid medications are used to treat moderate to severe pain. Morphine, Oxycodone (Percocet?), Hydromorphone (Dilaudid?) and Hydrocodone (T[place]ahassee?) are some types of opioids. How do Opioids work? Opioids reduce the pain signals sent to your brain, which decrease your feelings of pain. Opioids may reduce your pain, but may not take all the pain away. What are the risks from taking opioids? Prescription opioids carry serious risks of physical dependence, addiction and overdose, with nursing home use. If you take too much of [...] CLINICAL SUMMARY Observed: 10/01/2018 Status: C Source: [facility]ED [facility] 2:56 PM HEALTH SYSTEM REPOSITORY CLINICAL SUMMARY Please take this summary document to your follow up appointments. Jed Velarde [facility] 10/01/18 14:56 [address] [place]. [address] PATIENT INFORMATION Name: LOVE PHELAN Address: [address] [place] [address] Age: 73 Years Phone: [phone] : 1945 12:00 MRN: [id number] Sex: Male Race: White Ethnicity: Not Hispan/Lat Admitted From: [facility]: Thoracic Surgery Nurse [facility]: [facility] [id number] Admit Date: 09/21/2018 05:02 PCP: Physician, PCP [...] Nephrology Abdoulaye AMBRIZ , Abdoulaye Gutierrez - CardKeyshawn Disease DIAGNOSES: Mitral valve regurgitation; S/P MVR (mitral valve replacement) Problems Active PICC (peripherally inserted central catheter) in place (09/25/2018) Acute CHF CHF (congestive heart failure) Diabetes High blood pressure Allergies doxycycline (Hives) Procedures Mitral valve operation (09/26/2018) MEASUREMENTS: Last Charted: Weight: 106.8 kg /235 lbs 7 oz ( 09/30/18 03:44:28 ) VITAL SIGNS: Last Charted: Pulse Rate: 77 BPM (10/01 11:) Blood Pressure: 149/75 mm Hg (10/01 11:) Pain Score: 6(10/01 11:) Last Bowel Movement: Date/Time: 10/01 11:08 10/01/2018 00:00 MENTAL STATUS: Level of Conciousness: Alert (10/01 11:08) Orientation: Oriented x 4 (10/01 11:) MEDICATIONS ORDERED / RECOMMENDED TO BE CONTINUED [...] Days. Refills: 1., Future refills from your PCP/Incident Response Manager Miscellaneous Medication (Diabetic [place]) To administer insulin after each meal and [...] Days. Refills: 1., Future refills from your PCP/Incident Response Manager Comment Miscellaneous Medication (Diabetic [place]) To administer insulin after each meal and [...] for Adults HYDROcodone/Acetaminophen 5 mg/325 mg Tab (T[place]ahassee 5 GEq) ([place] 5 mg/325 mg*) 2 Tab, PO, Tab, [...] site access HYDROcodone/Acetaminophen 5 mg/325 mg Tab ([place] 5 GEq) ([place] 5 mg/325 mg) 1 Tab, PO, Tab, [...] or greater than 180 mmHg; prolongation of CT interval + QRS complex * Individual cases [...] Date: Mariano Moreno MD Thoracic Surg [address] [facility] [address] 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 Your appointment is scheduled for 9:30am. Bring [...] INR level tomorrow 10/02/18 and call to [facility] office [phone]. Will then have INR checks every Saturday, Saturday, and Saturday. Dr. Moreno office to follow levels [phone]. Transfer Code Status: Full Resuscitation. Transfer Consults: [...] not start or stop any medications or eboy-kcw-nghshqg medications unless your doctor or pharmacist tells [...] doctor who is following your blood levels. Urls-sbd-zlxllvx pain relievers: Acetaminophen (Tylenol??) aspirin, ibuprofen, (Motrin??) [...] Decisions Type: Living Will, Medical Power of Cheerleading Coach Copy of Advance Directive/Health Care Decisions on [...] Valve Replacement; Low-Sodium Eating Plan; Heart Failure, Sofi-zu-Qqom GLUCOSE POCT Collected: 10/01/2018 Status: F Source: [...] HEALTH SYSTEM REPOSITORY Patient: LOVE PHELAN MRN: [id number] Age: 73 years Sex: Male : 1945 [...] plavix. Dispo: Discharge to home today with [facility]. INR to be drawn tomorrow. [...] Observed: 10/01/2018 Status: C Source: JED VELARDE 10:34 AM HEALTH SYSTEM REPOSITORY Patient: LOVE PHELAN MRN: ([id number] Age: 73 years Sex: Male : 1945 [...] underlying CAD. -Chronic ischemic heart disease; s/p MS and multivessel stenting 2009. He had negative [...] planning. -Pt plans to f/u with primary freight forwarder in [place], [place], Dr. Blanchard. Marcus Barrera CNP I personally saw and evaluated the patient. Chart, medications, and laboratories reviewed. Agree with assessment and plan above by Christi Barrera CNP. OK for discharge from a cardiac standpoint. Continue aspirin, statin, beta-brisa. Alexander Alejandro MD [facility] 10/01/2018 12:08 Labs - Last 36 hours [...] (10/01 05:54) 28.0 (09/30 05:53) RDW 14.7 (12/05 05:54) 14.6 (09/30 05:53) MCHC 33.4 (10/01 [...] Neutrophil 67.9 % (10/01 05:54) 66.4 % (12/04 05:53) Lymphocyte 19.4 % (10/01 05:54) 19.5 % (09/30 05:53) Monocyte 9.2 % (10/01 05:54) 10.2 % (09/30 05:53) Eosinophil 2.7 % (10/01 05:54) 3.1 % (09/30 05:53) Basophil 0.8 % (10/01 05:) 0.8 % (09/30 05:53) Inpatient Medications: Warfarin [...] 09/29/18 21:08:00 HYDROcodone/Acetaminophen 5 mg/325 mg Tab ([place] 5 GEq) 2 Tab, PO, Tab, Q4h, [...] Not Given HYDROcodone/Acetaminophen 5 mg/325 mg Tab ([place] 5 GEq) 1 Tab, PO, Tab, Q4h, [...] NOTES Observed: 10/01/2018 Status: F Source: JED VELARDE 9:38 AM HEALTH SYSTEM REPOSITORY Patient: LOVE PHELAN MRN: ([id number] Age: 73 years Sex: Male : 1945 [...] discharged from renal standpoint. Seun Keyes MD [facility], [facility]. Pager: [phone] Subjective seen this pm, feels well, denies [...] GLUCOSE POCT Collected: 10/01/2018 Status: F Source: [facility] (UPLOADED) 8:22 AM HEALTH SYSTEM REPOSITORY TYPE CODE TESTS RESULT OUT OF REFERENCE UNITS RANGE LAB 2340-8(LOIN 70-110 mg/dL C) High Glucose 211 POCT-LAB Result Comment: Treatment ranges and critical values established by Patient Care Services. All follow-up actions were taken by Patient Care Services. Performed By: #### 2430-8 #### [facility] POINT OF CARE PROGRESS NOTES Observed: 10/01/2018 Status: F Source: [employer] [facility] 8:01 AM HEALTH SYSTEM REPOSITORY Patient: LOVE PHELAN MRN: ([id number] Age: 73 years Sex: Male : 1945 Associated Diagnoses: None Author: Cristhian Hong DO Assessment Diagnosis/Impression/Plan: Medicine Sign-on Mr Love Phelan is a 73-year-old male with past medical history to include CAD status post stents, hypertension, hyperlipidemia, insulin-dependent diabetes, newly diagnosed CKD stage III, who p resents to [facility] 09/21/2018 for dyspnea Interval workup notable for [...] 0.4 mg, Subl, Q5min, PRN: See Comments [place] 5 mg/325 mg*: 2 Tab, PO, Q4h, PRN: Pain - Moderate [place] 5 mg/325 m Tab, PO, Q4h, PRN: [...] 2.5 mg, PO, Daily-Warf Prescriptions Prescribed Diabetic [place]: See Instructions, To administer insulin after each [...] (10/01 09:32) Pain Score: 0 (10/01 05:30) Height: 108.34 cm /42.65 in (Type not Indicated) (09/21/2018 18:08:00) Weight: 106.8 kg/ 235 lbs 7.3 oz (Actual) (09/30/2018 03:44:28) Body Surface Area: 1.79 m2 Body Mass Index: 90.99 Intake and Output (Previous 24Hrs) I and O Summary Begin date: 09/30 11:03 End date: 10/01 11:03 24 Hour Intake: [...] 0.8 % (10/0154) 0.8 % (09/30 05:53) Blood 10/01/18 09:58:00 Glucose POCT-LA: 291 Comment: 09/26/18 18:21:00 Hematocrit POCT: 34 Hemoglobin POCT: 11.2 Sodium POCT: 141 Potassium POCT: 4.6 Calcium Ionized: 1.21 Lactate POCT: 1.6 09/22/18 12:22:00 Activated Clott: 188 Comment: Microbiology No results found General Results Lab/diagnostic studies personally reviewed. Supervising Physician Comments . Diagnosis Documentation . PROGRESS NOTES Observed: 10/01/2018 Status: F Source: JED [place] 7:36 AM HEALTH SYSTEM REPOSITORY Patient: LOVE PHELAN MRN: [id number] Age: 73 years Sex: Male : 1945 [...] 10/01/2018 Status: F Source: JED [place] (UPLOADED) 6:21 AM HEALTH SYSTEM REPOSITORY TYPE CODE TESTS RESULT OUT OF REFERENCE UNITS RANGE LAB 2340-8(LOIN 70-110 mg/dL C) High Glucose 199 POCT-LAB Result Comment: Treatment ranges and critical values established by Patient Care Services. All follow-up actions were taken by Patient Care Services. Performed By: #### 2430-8 #### [facility] POINT OF CARE CBC WITH DIFFERENTIAL Collected: 10/01/2018 Status: F Source: JED [facility]AR[facility]EL 5:54 AM HEALTH SYSTEM REPOSITORY TYPE CODE TESTS RESULT OUT OF REFERENCE UNITS RANGE LAB 80920-8(LO 39.0-49.0 % INC) Low Hematocrit 28.8 LAB 69515-4(LO 142-424 thou/mcL INC) Normal Platelet Count 154 LAB 63194-1(LO 0.0-12.0 % INC) Normal Monocyte 9.2 LAB 711-2(LOIN 0.00-0.70 thou/mcL C) Normal Eosinophil 0.10 Absolute LAB 84003-1(LO 11.0-14.8 % INC) RDW Normal 14.7 LAB 08726-1(LO 0.0-2.0 % INC) Normal Basophil 0.8 LAB 742-7(LOIN 0.00-0.90 thou/mcL C) Normal Monocyte 0.50 Absolute LAB 718-7(LOIN 13.5-17.5 gm/dL C) Low Hemoglobin 9.6 LAB 45974-5(LO 22.0-44.0 % INC) Low Lymphocyte 19.4 LAB 731-0(LOIN 1.00-4.80 thou/mcL C) Normal Lymphocyte 1.00 Absolute LAB 09874-9(LO 32.0-36.0 gm/dL INC) MCHC Normal 33.4 LAB 30035-8(LO 4.6-10.2 thou/mcL INC) WBC Normal Count 5.4 LAB 09506-6(LO 0.0-7.0 % INC) Normal Eosinophil 2.7 LAB 16319-0(LO 40.0-70.0 % INC) Normal Neutrophil 67.9 LAB 76230-2(LO 27.0-34.0 Picograms INC) MCH Normal 27.9 LAB 751-8(LOIN 1.80-7.70 thou/mcL C) Normal Neutrophil 3.70 Absolute LAB 704-7(LOIN 0.00-0.20 thou/mcL C) Normal Basophil 0.00 Absolute LAB 05401-8(LO 4.30-5.70 million/mcL INC) Low Red Blood Cell 3.45 Count LAB 11825-5(LO 80.0-97.0 FL INC) MCV Normal 83.5 LAB 25268-0(LO 6.2-12.1 FL INC) MPV Normal 8.6 Performed By: #### 05292-9 #### [facility] [address] [place], [place] PROTHROMBIN TIME Collected: 10/01/2018 Status: F Source: TAPPEN 5:54 AM HEALTH SYSTEM REPOSITORY TYPE CODE TESTS RESULT OUT OF RANGE REFERENCE UNITS LAB 5902-2(HANY 9.3-12.4 Sec NC) High Prothrombin Time (PT) 31.8 LAB 18707-2(LO INC) INR Normal 2.68 Result Comment: The recommended therapeutic INR range for most cardiac indications is 2.0-3.0. For high intensity therapy(ie.mechanical heart valves), the recommended range is 2.5-3.5. Performed By: #### 5902-2 #### [facility] [address] [place], [place] GFRAA Collected: 10/01/2018 Status: F Source: TAPPEN 5:54 AM HEALTH SYSTEM REPOSITORY TYPE CODE TESTS RESULT OUT OF RANGE REFERENCE UNITS LAB 71510-4(LO mL/min INC) GFR Normal Estimated >60 Result Comment: The MDRD equation has not been validated for those over 70 years, women, patients with serious co-morbid conditions, or with extremes of body size, muscle mass of nutritional status. Performed By: #### 21791-5, 64309-3m8, 68723-5, 38089-1 #### [facility] [address] [place], [place] GFRBB Collected: 10/01/2018 Status: F Source: TAPPEN 5:54 AM HEALTH SYSTEM REPOSITORY TYPE CODE TESTS RESULT OUT OF RANGE REFERENCE UNITS LAB 49365-2(LO mL/min INC) GFR Normal Estimated Non 55 Performed By: #### 25438-3, 24166-3o9, 90330-7, 83271-6 #### [facility] [address] [place], [place] MAGNESIUM LEVEL Collected: 10/01/2018 Status: F Source: TAPPEN 5:54 AM HEALTH SYSTEM REPOSITORY TYPE CODE TESTS RESULT OUT OF RANGE REFERENCE UNITS LAB 32613-7(LO 1.8-2.5 mg/dL INC) Normal Magnesium Level 2.1 Performed By: #### 99674-2, 14104-1j7, 97658-9, 07761-3 #### [facility] [address] [place], [place] BASIC METABOLIC PANEL Collected: 10/01/2018 Status: F Source: TAPPEN 5:54 AM HEALTH SYSTEM REPOSITORY TYPE CODE TESTS RESULT OUT OF RANGE REFERENCE UNITS LAB 16352-5(LO 8-20 mg/dL INC) High BUN 36 LAB 81306-6(LO 6.0-18.0 mMol/L INC) Anion Normal Gap 7.0 LAB 49709-3(LO 8.9-10.3 mg/dL INC) Low Calcium Total 7.9 LAB 2951-2(HANY 136-145 mMol/L NC) Low Sodium Level 134 LAB 2160-0(HANY 0.60-1.30 mg/dL NC) Normal Creatinine 1.29 LAB 2823-3(HANY 3.6-5.1 mMol/L NC) Normal Potassium Level 4.5 LAB 39857-4(LO 70-110 mg/dL INC) High Glucose Level 196 LAB 8-9(HANY 22-32 mMol/L NC) Carbon Normal Dioxide Level 28 LAB 2075-0(HANY 98-107 mMol/L NC) Chloride Normal Level 99 Performed By: #### 79477-1, 02693-0r5, 24634-3, 49628-0 #### [facility] [address] [place], [place] XR CHEST 1 VIEW Observed: 10/01/2018 Status: F Source: TAPPEN 5:43 AM HEALTH SYSTEM REPOSITORY EXAMINATION TYPE: [...] HEALTH SYSTEM REPOSITORY Patient: LOVE PHELAN MRN: ([id number] Age: 73 years Sex: Male : 1945 [...] HEALTH SYSTEM REPOSITORY Patient: LOVE PHELAN MRN: [id number] Age: 73 years Sex: Male : 1945 [...] and spironolactone 25mg daily. Seun Keyes MD [facility], [facility]. Pager: [phone] Subjective seen this pm, feels well, denies [...] GLUCOSE POCT Collected: 09/30/2018 Status: F Source: [employer] (UPLOADED) 11:52 AM HEALTH SYSTEM REPOSITORY TYPE CODE TESTS RESULT OUT OF REFERENCE UNITS RANGE LAB 2340-8(LOIN 70-110 mg/dL C) High Glucose 321 POCT-LAB Result Comment: Treatment ranges and critical values established by Patient Care Services. All follow-up actions were taken by Patient Care Services. Performed By: #### 2430-8 #### [facility] POINT OF CARE PROGRESS NOTES Observed: 09/30/2018 Status: C Source: [employer] 9:16 AM HEALTH SYSTEM REPOSITORY Patient: LOVE PHELAN MRN: [id number] Age: 73 years Sex: Male : 1945 [...] underlying CAD. -Chronic ischemic heart disease; s/p MS and multivessel stenting 2009. He had negative [...] planning per primary team Abdoulaye Stanford MD, [facility] Labs - Last 36 hours (Max 2 [...] (PT) 17.2 Sec (09/30 05:53) 14.7 Sec (12/03 09:58) OTHER LABS Anion Gap 6.0 mMol/L [...] 09/29/18 21:08:00 HYDROcodone/Acetaminophen 5 mg/325 mg Tab ([place] 5 GEq) 2 Tab, PO, Tab, Q4h, [...] Not Given HYDROcodone/Acetaminophen 5 mg/325 mg Tab ([place] 5 GEq) 1 Tab, PO, Tab, Q4h, [...] PROGRESS NOTES Observed: 09/30/2018 Status: F Source: TAPPEN 9:10 AM HEALTH SYSTEM REPOSITORY Patient: LOVE PHELAN Age: 73 years Sex: Male : 1945 Associated Diagnoses: None Author: Cristhian Hong DO Assessment Diagnosis/Impression/Plan: Medicine Sign-on Mr Love Phelan is a 73-year-old male with past medical history to include CAD status post stents, hypertension, hyperlipidemia, insulin-dependent diabetes, newly diagnosed CKD stage III, who p resents to [facility] 09/21/2018 for dyspnea Interval workup notable for [...] 0.4 mg, Subl, Q5min, PRN: See Comments [place] 5 mg/325 mg*: 2 Tab, PO, Q4h, PRN: Pain - Moderate [place] 5 mg/325 m Tab, PO, Q4h, PRN: [...] mcg/ml injectable solution: 1 mL, IM, Month ([id number]), Each, 0 Refill(s) glipiZIDE 10 mg oral [...] Observed: 09/30/2018 Status: C Source: J[facility] 8:56 AM HEALTH SYSTEM REPOSITORY Patient: LOVE [...] POCT Collected: 09/30/2018 Status: F Source: [facility] (UPLOADED) 8:21 AM HEALTH SYSTEM REPOSITORY TYPE CODE TESTS RESULT OUT OF REFERENCE UNITS RANGE LAB 2340-8(LOIN 70-110 mg/dL C) High Glucose 231 POCT-LAB Result Comment: Treatment ranges and critical values established by Patient Care Services. All follow-up actions were taken by Patient Care Services. Performed By: #### 2430-8 #### [facility] POINT OF CARE CBC WITH DIFFERENTIAL Collected: 09/30/2018 Status: F Source: TAPPEN 5:53 AM HEALTH SYSTEM REPOSITORY TYPE CODE TESTS RESULT OUT OF REFERENCE UNITS RANGE LAB 711-2(LOIN 0.00-0.70 thou/mcL C) Normal Eosinophil 0.10 Absolute LAB 731-0(LOIN 1.00-4.80 thou/mcL C) Low Lymphocyte 0.90 Absolute LAB 96337-5(LO 4.6-10.2 thou/mcL INC) WBC Normal Count 4.8 LAB 85019-1(LO 40.0-70.0 % INC) Normal Neutrophil 66.4 LAB 79533-7(LO 0.0-12.0 % INC) Normal Monocyte 10.2 LAB 97859-2(LO 32.0-36.0 gm/dL INC) MCHC Normal 33.3 LAB 742-7(LOIN 0.00-0.90 thou/mcL C) Normal Monocyte 0.50 Absolute LAB 89770-2(LO 39.0-49.0 % INC) Low Hematocrit 27.9 LAB 40820-7(LO 142-424 thou/mcL INC) Low Platelet Count 121 LAB 751-8(LOIN 1.80-7.70 thou/mcL C) Normal Neutrophil 3.20 Absolute LAB 65180-5(LO 0.0-2.0 % INC) Normal Basophil 0.8 LAB 63967-5(LO 27.0-34.0 Picograms INC) MCH Normal 28.0 LAB 704-7(LOIN 0.00-0.20 thou/mcL C) Normal Basophil 0.00 Absolute LAB 718-7(LOIN 13.5-17.5 gm/dL C) Low Hemoglobin 9.3 LAB 81330-8(LO 11.0-14.8 % INC) RDW Normal 14.6 LAB 30937-2(LO 22.0-44.0 % INC) Low Lymphocyte 19.5 LAB 10485-5(LO 4.30-5.70 million/mcL INC) Low Red Blood Cell 3.32 Count LAB 08297-1(LO 6.2-12.1 FL INC) MPV Normal 8.9 LAB 46846-3(LO 0.0-7.0 % INC) Normal Eosinophil 3.1 LAB 62705-3(LO 80.0-97.0 FL INC) MCV Normal 84.0 Performed By: #### 13145-7 #### [facility] [address] [place], [place] PROTHROMBIN TIME Collected: 09/30/2018 Status: F Source: [facility]APP[facility] 5:53 AM HEALTH SYSTEM REPOSITORY TYPE CODE TESTS RESULT OUT OF RANGE REFERENCE UNITS LAB 53975-0(HANY NC) Normal INR 1.48 Result Comment: The recommended therapeutic INR range for most cardiac indications is 2.0-3.0. For high intensity therapy(ie.mechanical heart valves), the recommended range is 2.5-3.5. LAB 5902-2(LOINC) 9.3-12.4 Sec Prothrombin High Time (PT) 17.2 Performed By: #### 5902-2 #### [facility] [address] [place], [place]IUM [place]EV[place] Collected: 09/30/2018 Status: F Source: TAPPEN 5:53 AM [facility] SYSTEM REPOSITORY TYPE CODE TESTS RESULT OUT OF RANGE REFERENCE UNITS LAB 59380-1(LO 1.8-2.5 mg/dL INC) Normal Magnesium Level 2.3 Performed By: #### 53790-0, 50798-7 #### [facility] [address], [place] BASIC METABOLIC PANEL Collected: 09/30/2018 Status: F Source: TAPPEN 5:53 AM [facility]ALTH SYSTEM REPOSITORY TYPE CODE TESTS RESULT OUT OF RANGE REFERENCE UNITS LAB 11074-3(LO 70-110 mg/dL INC) High Glucose Level 253 LAB 74775-3(LO 8.9-10.3 mg/dL INC) Low Calcium Total 7.8 LAB 77714-3(LO 6.0-18.0 mMol/L INC) Anion Normal Gap 6.0 LAB 2823-3(HANY 3.6-5.1 mMol/L NC) Normal Potassium Level 4.4 LAB 2075-0(HANY 98-107 mMol/L NC) Chloride Normal Level 100 LAB 2160-0(HANY 0.60-1.30 mg/dL NC) High Creatinine 1.42 LAB 41031-2(LO 8-20 mg/dL INC) High BUN 44 LAB 2951-2(HANY 136-145 mMol/L NC) Low Sodium Level 133 LAB 8-9(HANY 22-32 mMol/L NC) Carbon Normal Dioxide Level 27 Performed By: #### 14582-5, 95358-3 #### [facility] [address], [place] XR CHEST 1 VIEW Observed: 09/30/2018 Status: F Source: JED VELARDE 4:57 AM HEALTH SYSTEM REPOSITORY EXAMINATION TYPE: [...] PROGRESS NOTES Observed: 09/29/2018 Status: F Source: TAPPEN 11:30 AM [facility]ALTH SYSTEM REPOSITORY Patient: LOVE PHELAN MRN: [facility])-[id number] Age: 73 years Sex: Male : 1945 [...] 25mg daily starting tomorrow. Seun Keyes MD [facility], [facility]. Pager: [phone] Subjective seen this am, feels well, denies [...] (09/28 05:52) MCH 27.8 (09/29 06:07) 28.0 (09/2852) RDW 15.1 (09/29 06:07) 15.3 (09/28) MCHC 32.8 (09/29 06:07) 32.7 (09/2852) Neutrophil Ab 4.50 (09/29 06:07) 5.90 (09/28) [...] NOTES Observed: 09/29/2018 Status: C Source: JED [place] 10:32 AM [facility]ALTH SYSTEM REPOSITORY Patient: LOVE PHELAN MRN: [id number] Age: 73 years Sex: Male : 1945 Associated Diagnoses: None Author: Cristhian Hong DO Assessment Diagnosis/Impression/Plan: Medicine Sign-on Mr Love Phelan is a 73-year-old male with past medical history to include CAD status post stents, hypertension, hyperlipidemia, insulin-dependent diabetes, newly diagnosed CKD stage III, who p resents to [facility] 09/21/2018 for dyspnea Interval workup notable for [...] 0.4 mg, Subl, Q5min, PRN: See Comments [place] 5 mg/325 mg*: 2 Tab, PO, Q4h, PRN: Pain - Moderate [place] 5 mg/325 m Tab, PO, Q4h, PRN: [...] mcg/ml injectable solution: 1 mL, IM, Month ([id number]), Each, 0 Refill(s) glipiZIDE 10 mg oral [...] (09/29 12:06) Oxygen Delivery: Nasal cannula (09/29 12:06) O2 Device Flow: 1.5 L/min Pain Score: [...] PROTHROMBIN TIME Collected: 09/29/2018 Status: F Source: [facility] SYD 9:58 AM HEALTH SYSTEM REPOSITORY TYPE CODE TESTS RESULT OUT OF RANGE REFERENCE UNITS LAB 30655-5(HANY NC) Normal INR 1.28 Result Comment: The recommended therapeutic INR range for most cardiac indications is 2.0-3.0. For high intensity therapy(ie.mechanical heart valves), the recommended range is 2.5-3.5. LAB 5902-2(LOINC) 9.3-12.4 Sec Prothrombin High Time (PT) 14.7 Performed By: #### 5902-2 #### [facility] [address], [place] PROGRESS NOTES Observed: 09/29/2018 Status: C Source: TAPPEN 8:51 AM [facility] SYSTEM REPOSITORY Patient: LOVE PHELAN MRN: [id number] Age: 73 years Sex: Male : 1945 [...] underlying CAD. -Chronic ischemic heart disease; s/p MS and multivessel stenting 2009. He had negative [...] planning per primary team Abdoulaye Stanford MD, [facility] Labs - Last 36 hours (Max 2 / lab test) CHEMISTRY Sodium 132 (09/29 06:07) 135 (09/28 05:52) Potassium 4.4 (09/29 06:07) 4.5 (09/28 05:52) Chloride 99 (09/29 06:07) 101 (09/28 05:52) CO2 27 (09/29 06:07) 27 (09/28 05:52) Glucose 259 (09/29 06:07) 152 (09/28 05:52) Glucose POCT No result BUN 51 (09/29 06:07) 51 (09/28 05:52) Creatinine 1.57 (09/29 06:07) 1.79 (09/28 05:) Calcium Total 7.9 (09/29 06:07) 8.1 (09/28 [...] 05:52) Neutrophil Ab 4.50 (09/29 06:07) 5.90 (09/28) Monocyte Ab 0.70 (09/29 06:07) 1.10 (09/28) Eosinophil Ab 0.10 (09/29 06:07) 0.00 (09/28) Basophil Ab 0.00 (09/29 06:07) 0.00 (09/28) Lymphocyte Ab 0.90 (09/29 06:07) 1.20 (09/28) COAGULATION Partial Thromboplastin (aPTT) 27.8 Sec (09/2752) [...] 45 mL/min (09/28) MPV 9.3 FL (09/29 06:07) 9.0 FL (09/28 05:) Neutrophil 72.0 % (09/29 06:07) 72.0 % (09/28) Lymphocyte 14.4 % (09/29 06:) 14.5 % (09/28) Monocyte 11.7 % (09/29 06:) 12.8 % (09/28) Eosinophil 1.5 % (09/29 [...] 09/28/18 03:11:00 HYDROcodone/Acetaminophen 5 mg/325 mg Tab ([place] 5 GEq) 2 Tab, PO, Tab, Q4h, [...] Not Given HYDROcodone/Acetaminophen 5 mg/325 mg Tab ([place] 5 GEq) 1 Tab, PO, Tab, Q4h, [...] PROGRESS NOTES Observed: 09/29/2018 Status: C Source: [facility]APP[facility] 8:32 AM [facility] SYSTEM REPOSITORY Patient: OLVE PHELAN MRN: [id number] Age: 73 years Sex: Male : 1945 Associated Diagnoses: None Author: Akira Oconnor Supervising Physician Comments Assessment and Plan 1. [...] 09/29/18 06:07, Hematocrit = 28.5 % L 12/03/18 06:07, WBC Count = 6.2 thou/mcL 09/29/18 [...] POCT Collected: 09/29/2018 Status: F Source: JED GARLANDMEL (UPLOADED) 8:17 AM HEALTH SYSTEM REPOSITORY TYPE CODE TESTS RESULT OUT OF REFERENCE UNITS RANGE LAB 2340-8(LOIN 70-110 mg/dL C) High Glucose 264 POCT-LAB Result Comment: Treatment ranges and critical values established by Patient Care Services. All follow-up actions were taken by Patient Care Services. Performed By: #### 2430-8 #### [facility] POINT OF CARE CBC WITH DIFFERENTIAL Collected: 09/29/2018 Status: F Source: [facility] SYD 6:07 AM HEALTH SYSTEM REPOSITORY TYPE CODE TESTS RESULT OUT OF REFERENCE UNITS RANGE LAB 63402-4(LO 40.0-70.0 % INC) High Neutrophil 72.0 LAB 84625-5(LO 80.0-97.0 FL INC) MCV Normal 84.5 LAB 31968-1(LO 0.0-7.0 % INC) Normal Eosinophil 1.5 LAB 61725-8(LO 11.0-14.8 % INC) RDW High 15.1 LAB 91318-0(LO 4.30-5.70 million/mcL INC) Low Red Blood Cell 3.37 Count LAB 704-7(LOIN 0.00-0.20 thou/mcL C) Normal Basophil 0.00 Absolute LAB 731-0(LOIN 1.00-4.80 thou/mcL C) Low Lymphocyte 0.90 Absolute LAB 04818-6(LO 0.0-12.0 % INC) Normal Monocyte 11.7 LAB 711-2(LOIN 0.00-0.70 thou/mcL C) Normal Eosinophil 0.10 Absolute LAB 42770-2(LO 39.0-49.0 % INC) Low Hematocrit 28.5 LAB 62303-9(LO 32.0-36.0 gm/dL INC) MCHC Normal 32.8 LAB 751-8(LOIN 1.80-7.70 thou/mcL C) Normal Neutrophil 4.50 Absolute LAB 56800-7(LO 22.0-44.0 % INC) Low Lymphocyte 14.4 LAB 03573-3(LO 4.6-10.2 thou/mcL INC) WBC Normal Count 6.2 LAB 45027-7(LO 27.0-34.0 Picograms INC) MCH Normal 27.8 LAB 80133-2(LO 6.2-12.1 FL INC) MPV Normal 9.3 LAB 718-7(LOIN 13.5-17.5 gm/dL C) Low Hemoglobin 9.4 LAB 70825-8(LO 142-424 thou/mcL INC) Low Platelet Count 102 LAB 68497-9(LO 0.0-2.0 % INC) Normal Basophil 0.4 LAB 742-7(LOIN 0.00-0.90 thou/mcL C) Normal Monocyte 0.70 Absolute Performed By: #### 91381-7 #### [facility] [address], [place] GFRAA Collected: 09/29/2018 Status: F Source: [facility] 6:07 AM [facility] SYSTEM REPOSITORY TYPE CODE TESTS RESULT OUT OF RANGE REFERENCE UNITS LAB 96429-1(LO mL/min INC) GFR Normal Estimated 53 Result Comment: The MDRD equation has not been validated for those over 70 years, women, patients with serious co-morbid conditions, or with extremes of body size, muscle mass of nutritional status. Performed By: #### 87963-9, 16345-7x5, 62106-7, 80473-4 #### [facility] [address], [place] GFRBB Collected: 09/29/2018 Status: F Source: [place] 6:07 AM [facility] SYSTEM REPOSITORY TYPE CODE TESTS RESULT OUT OF RANGE REFERENCE UNITS LAB 58950-0(LO mL/min INC) GFR Normal Estimated Non 44 Performed By: #### 60155-6, 97909-0j4, 11825-7, 87530-9 #### [facility] [address], [place] MAGNESIUM LEVEL Collected: 09/29/2018 Status: F Source: [place] 6:07 AM [facility] REPOSITORY TYPE CODE TESTS RESULT OUT OF RANGE REFERENCE UNITS LAB 92445-6(LO 1.8-2.5 mg/dL INC) Normal Magnesium Level 2.4 Performed By: #### 92745-1, 63977-8c3, 39519-9, 67143-1 #### [facility] [address], [place] BASIC METABOLIC PANEL Collected: 09/29/2018 Status: F Source: [place] 6:07 [facility] SYSTEM REPOSITORY TYPE CODE TESTS RESULT OUT OF RANGE REFERENCE UNITS LAB 2160-0(HANY 0.60-1.30 mg/dL NC) High Creatinine 1.57 LAB 12867-3(LO 6.0-18.0 mMol/L INC) Anion Normal Gap 6.0 LAB 2028-9(HANY 22-32 mMol/L NC) Carbon Normal Dioxide Level 27 LAB 54429-7(LO 70-110 mg/dL INC) High Glucose Level 259 LAB 2951-2(HANY 136-145 mMol/L NC) Low Sodium Level 132 LAB 2075-0(HANY 98-107 mMol/L NC) Chloride Normal Level 99 LAB 48353-8(LO 8.9-10.3 mg/dL INC) Low Calcium Total 7.9 LAB 08077-1(LO 8-20 mg/dL INC) High BUN 51 LAB 2823-3(HANY 3.6-5.1 mMol/L NC) Normal Potassium Level 4.4 Performed By: #### 36526-7, 78478-3u0, 10057-1, 83643-1 #### [facility] [address] [place], [place] XR CHEST 1 VIEW Observed: 09/29/2018 Status: F Source: [place]ED [place] 5:16 AM HEALTH SYSTEM REPOSITORY AP PORTABLE [...] HEALTH SYSTEM REPOSITORY Patient: LOVE PHELAN MRN: ([id number] Age: 73 years Sex: Male : 1945 [...] urine. continue oral hydration Seun Keyes MD [facility], [facility]. Pager: [phone] Subjective seen this am, transferred out of [...] 05:52) 25 (09/27 05:52) Glucose 152 (09/28 05:) 126 (09/27 05:52) Glucose POCT No result BUN 51 (09/28 05:) 50 (09/27 05:) Creatinine 1.79 (09/28 05:) 1.86 (09/27) Calcium Total 8.1 (09/28 05:) 8.6 (09/27) Magnesium 2.5 (09/28 05:) 2.7 (09/27 05:) HEMATOLOGY WBC 8.3 (09/28 05:52) 8.3 (09/27 05:52) RBC 3.58 (09/28 05:52) 3.80 (09/27 05:52) Hb 10.0 (09/28 05:52) 10.6 (09/27 05:52) Hematocrit 30.6 (09/28 05:52) 31.5 (09/27 05:52) Platelets 93 (09/28 05:52) 97 (09/27 05:52) MCV 85.4 (09/28 05:52) 82.8 (09/27 05:52) MCH 28.0 (09/28 05:52) 27.9 (09/27 05:52) RDW 15.3 (09/28 05:52) 15.3 (09/27 05:52) MCHC 32.7 (09/28 05:52) 33.7 (09/27 05:52) Neutrophil Ab 5.90 (09/2852) 6.70 (09/27) Monocyte Ab 1.10 (09/28) 0.90 (09/27) Eosinophil Ab 0.00 (09/28) 0.00 (09/27) Basophil Ab 0.00 (09/28) 0.00 (09/27) Lymphocyte Ab 1.20 (09/28) 0.70 (09/27) COAGULATION Partial Thromboplastin (aPTT) 27.8 Sec (09/27) 28.2 Sec (09/26 14:10) INR 1.37 (09/27) 1.31 (09/26 14:10) Prothrombintime (PT) 15.8 Sec (09/27) 15.1 Sec (09/26 14:10) OTHER LABS Anion Gap 7.0 mMol/L (09/28) 10.0 mMol/L (09/27) GFR Est. Non 38 mL/min (09/2852) 41 mL/min (09/26 14:10) GFR Est. Berta 45 mL/min (09/28) 50 mL/min (09/26 14:10) Alkaline Phosphatase 69 Units/L (09/2652) ALT/SGPT 35 Units/L (09/26 03:52) AST/SGOT 29 Units/L (09/26 03:52) Bilirubin Total 0.6 mg/dL (11/30 03:52) Protein 6.8 gm/dL (09/26 03:52) Albumin Level 3.3 gm/dL (09/26 03:52) MPV 9.0 FL (09/28 05:52) 8.6 FL (09/27 05:52) Neutrophil 72.0 % (09/28 05:52) 80.8 % (09/27 05:52) Lymphocyte 14.5 % (09/28 05:52) 8.2 % (09/27 05:52) Monocyte 12.8 % (09/28 05:) 10.7 % (09/27 05:52) Eosinophil 0.4 % (09/28 05:) 0.1 % (09/27 05:) Basophil 0.3 % (09/28) 0.2 % (09/27) Blood Type ABO and Rh(D) BPOS (09/25 17:29) Antibody Screen Interpret NEGATIVE (09/25 17:) Fresh [...] HEALTH SYSTEM REPOSITORY Patient: LOVE PHELAN MRN: ([id number] Age: 73 years Sex: Male : 1945 Associated Diagnoses: None Author: Tate MOLINA, Manuela Dumont Supervising Physician Comments Assessment and Plan 1. [...] PROGRESS NOTES Observed: 09/28/2018 Status: C Source: [facility]APP[place] 6:52 AM [facility] SYSTEM REPOSITORY Patient: LOVE PHELAN MRN: [id number] Age: 73 years Sex: Male : 1945 Associated Diagnoses: None Author: Pedro Ibarra [facility] Cardiology Progress Note CC: Severe MR S/P mitral valve replacement with 27 mm Medtronic Weldon tissue valve through mini thoracotomy Subjective: Patient states he's feeling well, slept good last night. 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 [...] Moderate left atrial enlargement Small PFO with [id number] shunt. No right to left shunting demonstrated [...] underlying CAD. -Chronic ischemic heart disease; s/p MS and multivessel stenting 2009. He had negative [...] 05:52) CO2 27 (09/28 05:52) 25 (09/27 05:) Glucose 152 (09/28 05:) 126 (09/27) Glucose POCT No result BUN 51 (09/28 05:52) 50 (09/27 05:) Creatinine 1.79 (09/28 05:) 1.86 (09/27) Calcium Total 8.1 (09/28 05:) 8.6 (09/27) Magnesium 2.5 (09/28 05:) 2.7 (09/27) HEMATOLOGY WBC 8.3 (09/28 05:52) 8.3 (09/27 05:52) RBC 3.58 (09/28 05:52) 3.80 (09/27 05:) Hb 10.0 (09/28 05:) 10.6 (09/27) Hematocrit 30.6 (09/28 05:52) 31.5 (09/27 05:52) Platelets 93 (09/28 05:52) 97 (09/27 05:) MCV 85.4 (09/28 05:52) 82.8 (09/27 05:52) MCH 28.0 (09/28 05:52) 27.9 (09/27 05:) RDW 15.3 (09/28 05:52) 15.3 (09/27 05:52) MCHC 32.7 (09/28 05:52) 33.7 (09/27) Neutrophil Ab 5.90 (09/28 05:52) 6.70 (09/27 05:52) Monocyte Ab 1.10 (09/28 05:52) 0.90 (09/27 05:52) Eosinophil Ab 0.00 (09/28 05:) 0.00 (09/27 05:) Basophil Ab 0.00 (09/28 05:) 0.00 (09/27) Lymphocyte Ab 1.20 (09/28) 0.70 (09/27) COAGULATION Partial Thromboplastin (aPTT) 27.8 Sec (09/27) 28.2 Sec (09/26 14:10) INR 1.37 (09/27) 1.31 (09/26 14:10) Prothrombintime (PT) 15.8 Sec (09/27) 15.1 Sec (09/26 14:10) OTHER LABS Anion [...] (09/26) MPV 9.0 FL (09/28) 8.6 FL (12/01 05:52) Neutrophil 72.0 % (09/28 05:52) 80.8 % (09/27 05:52) Lymphocyte 14.5 % (09/28 05:52) 8.2 % (09/27 05:) Monocyte 12.8 % (09/28 05:) 10.7 % (09/27 05:) Eosinophil 0.4 % (09/28 05:) 0.1 % (09/27 05:) Basophil 0.3 % (09/28 05:) 0.2 % (09/27 05:) Blood Type ABO and Rh(D) BPOS (09/25 [...] 09/28/18 03:11:00 HYDROcodone/Acetaminophen 5 mg/325 mg Tab ([place] 5 GEq) 2 Tab, PO, Tab, Q4h, [...] Not Given HYDROcodone/Acetaminophen 5 mg/325 mg Tab ([place] 5 GEq) 1 Tab, PO, Tab, Q4h, [...] 1 VIEW Observed: 09/28/2018 Status: F Source: TAPPEN 6:50 AM [facility]ALTH SYSTEM REPOSITORY EXAMINATION TYPE: XR Chest 1 View DATE OF EXAM : 09/28/2018 6:50 AM HISTORY: Post Cardiac Surgery COMPARISON: September 27, 2018. FINDINGS/IMPRESSION: [place]-Yajaira catheters been removed. Right PICC tip to [...] RESULT OUT OF REFERENCE UNITS RANGE LAB 58408-4(LO 27.0-34.0 Picograms INC) MCH Normal 28.0 LAB 751-8(LOIN 1.80-7.70 thou/mcL C) Normal Neutrophil 5.90 Absolute LAB 84028-7(LO 0.0-2.0 % INC) Normal Basophil 0.3 LAB 704-7(LOIN 0.00-0.20 thou/mcL C) Normal Basophil 0.00 Absolute LAB 53398-2(LO 4.6-10.2 thou/mcL INC) WBC Normal Count 8.3 LAB 14609-7(LO 0.0-7.0 % INC) Normal Eosinophil 0.4 LAB 59222-3(LO 6.2-12.1 FL INC) MPV Normal 9.0 LAB 711-2(LOIN 0.00-0.70 thou/mcL C) Normal Eosinophil 0.00 Absolute LAB 03920-9(LO 80.0-97.0 FL INC) MCV Normal 85.4 LAB 76350-1(LO 0.0-12.0 % INC) High Monocyte 12.8 LAB 00040-3(LO 142-424 thou/mcL INC) Low Platelet Count 93 Result Comment: SLIDE PREVIOUSLY REVIEWED EM 09/28/18 06:28 LAB 55851-7(LOINC) 39.0-49.0 % Low Hematocrit 30.6 LAB 742-7(LOINC) 0.00-0.90 thou/m cL Monocyte High Absolute 1.10 LAB 92722-4(LOINC) 11.0-14.8 % RDW High 15.3 LAB 718-7(LOINC) 13.5-17.5 gm/dL Low Hemoglobin 10.0 LAB 07822-9(LOINC) 22.0-44.0 % Low Lymphocyte 14.5 LAB 731-0(LOINC) 1.00-4.80 thou/m cL Normal Lymphocyte Absolute 1.20 LAB 24650-6(LOINC) 32.0-36.0 gm/dL MCHC Normal 32.7 LAB 92112-7(LOINC) 4.30-5.70 millio Low n/mcL Red Blood Cell Count 3.58 LAB 73781-9(LOINC) 40.0-70.0 % High Neutrophil 72.0 Performed By: #### 22347-4 #### [facility] [address], [place] GFRAA Collected: 09/28/2018 Status: F Source: [facility] 5:52 AM [facility] SYSTEM REPOSITORY TYPE CODE TESTS RESULT OUT OF RANGE REFERENCE UNITS LAB 41697-5(LO mL/min INC) GFR Normal Estimated 45 Result Comment: The MDRD equation has not been validated for those over 70 years, women, patients with serious co-morbid conditions, or with extremes of body size, muscle mass of nutritional status. Performed By: #### 16160-4, 85592-8g9, 05586-1, 61652-6 #### [facility] [address], [place] GFRBB Collected: 09/28/2018 Status: F Source: TAPP[place] 5:52 AM [facility] SYSTEM REPOSITORY TYPE CODE TESTS RESULT OUT OF RANGE REFERENCE UNITS LAB 81688-2(LO mL/min INC) GFR Normal Estimated Non 38 Performed By: #### 57209-3, 80377-4k3, 14821-8, 72925-9 #### [facility] [address], [place] MAGNESIUM LEVEL Collected: 09/28/2018 Status: F Source: [place] 5:52 AM [facility] SYSTEM REPOSITORY TYPE CODE TESTS RESULT OUT OF RANGE REFERENCE UNITS LAB 36863-3(LO 1.8-2.5 mg/dL INC) Normal Magnesium Level 2.5 Performed By: #### 02518-8, 88044-7f4, 79825-0, 32762-4 #### [facility] [address], [place] BASIC METABOLIC PANEL Collected: 09/28/2018 Status: F Source: JED [place] 5:52 AM [facility] SYSTEM REPOSITORY TYPE CODE TESTS RESULT OUT OF RANGE REFERENCE UNITS LAB 2075-0(HANY 98-107 mMol/L NC) Chloride Normal Level 101 LAB 35392-1(LO 70-110 mg/dL INC) High Glucose Level 152 LAB 2951-2(HANY 136-145 mMol/L NC) Low Sodium Level 135 LAB 2823-3(HANY 3.6-5.1 mMol/L NC) Normal Potassium Level 4.5 LAB 74637-7(LO 8.9-10.3 mg/dL INC) Low Calcium Total 8.1 LAB 71630-6(LO 8-20 mg/dL INC) High BUN 51 LAB 2160-0(HANY 0.60-1.30 mg/dL NC) High Creatinine 1.79 LAB 86803-1(LO 6.0-18.0 mMol/L INC) Anion Normal Gap 7.0 LAB 2028-9(HANY 22-32 mMol/L NC) Carbon Normal Dioxide Level 27 Performed By: #### 48085-4, 12491-0y9, 44474-2, 48877-6 #### [facility] [address], [place] GLUCOSE POCT Collected: 09/28/2018 Status: F [...] OSMOLALITY URINE Collected: 09/28/2018 Status: F Source: [facility] 2:00 AM [facility] SYSTEM REPOSITORY TYPE CODE TESTS RESULT OUT OF RANGE REFERENCE UNITS LAB 2695-5(HANY mOsm/kg NC) Normal Osmolality Urine 580 Performed By: #### 2695-5 #### [facility], [address] [place] [address] #### 48531-5, 82950-2, 2078-4, 2955-3 #### [facility] [address] [place] [address] #### 95760-4 #### [facility] [address], [place] CREATININE RANDOM Collected: 09/28/2018 Status: F Source: [place] URINE 2:00 AM [facility] REPOSITORY TYPE CODE TESTS RESULT OUT OF RANGE REFERENCE UNITS LAB 2161-8(HANY mg/dL NC) Normal Creatinine Urine 135.00 Performed By: #### 2695-5 #### [facility], [address] [place] [address] #### 59312-4, 70370-6, 8-4, 2955-3 #### [facility] [address] [place] [address] #### 84189-9 #### [facility] [address], [place] PROTEIN CREATININE Collected: 09/28/2018 Status: F Source: T[place]EN RATIO URINE 2:00 AM HEALTH SYSTEM REPOSITORY TYPE CODE TESTS RESULT OUT OF RANGE REFERENCE UNITS LAB 76784-9(LO INC) Protein Normal / Creatinine 0.6 Ratio Urine Result Comment: Reference Intervals: Normal Proteinuria = <0.1 Mild Proteinuria = 0.1 - 1.0 Moderate Proteinuria = 1.0 - 10.0 Heavy Proteinuria = >10.0 LAB 2888-6(LOINC) <11.9 mg/dL Protein High Random Urine 75.9 LAB 2161-8(LOINC) mg/dL Normal Creatinine Urine 135.00 Performed By: #### 2695-5 #### [facility], [address] [place] [address] #### 31119-4, 87391-7, 2078-4, 2955-3 #### [facility] [address], [place] #### 49561-0 #### [facility] [address], [place] CHLORIDE RANDOM URINE Collected: 09/28/2018 Status: F Source: [place]APPEN 2:00 AM [facility] SYSTEM REPOSITORY TYPE CODE TESTS RESULT OUT OF RANGE REFERENCE UNITS LAB 8-4(HANY mMol/L NC) Normal Chloride 18 Random Urine Performed By: #### 2695-5 #### [facility], [address] [place] [address] #### 44337-2, 83952-8, 8-4, 2955-3 #### [facility] [address] [place] [address] #### 46390-2 #### [facility] [address], [place] SODIUM RANDOM URINE Collected: 09/28/2018 Status: F Source: [place] 2:00 AM [facility] SYSTEM REPOSITORY TYPE CODE TESTS RESULT OUT OF RANGE REFERENCE UNITS LAB 2955-3(LOIN 30-90 mMol/L C) Normal Sodium Random 61 Urine Performed By: #### 2695-5 #### [facility], [address] [place] [address] #### 66479-5, 35179-6, 2078-4, 2955-3 #### [facility] [address] [place] [address] #### 54554-7 #### [facility] [address], [place] MICROALBUMIN RANDOM Collected: 09/28/2018 Status: F Source: [place] URINE 2:00 AM [facility]ALTH SYSTEM REPOSITORY TYPE CODE TESTS RESULT OUT OF REFERENCE UNITS RANGE LAB 2161-8(HANY mg/dL NC) Creatinine Normal Urine 129.32 LAB 02285-6(LO <30 mg/Gm INC) Microalbumin High Creatinine Ratio 352 Urine Performed By: #### 2695-5 #### [facility], [address] [place] [address] #### 41501-7, 81468-9, 2078-4, 2955-3 #### [facility] [address], [place] #### 83282-0 #### [facility] [address], [place] GLUCOSE POCT Collected: 09/28/2018 Status: F [...] None Author: Javon AMBRIZ , Alexander Dumont [facility] Cardiology Progress Note 09/27/2018 09:32 CC: I [...] Moderate left atrial enlargement Small PFO with oglu-sk-vuogu shunt. No right to left shunting demonstrated [...] underlying CAD. -Chronic ischemic heart disease; s/p MS and multivessel stenting 2009. He had negative [...] (09/27 05:52) 27.5 (09/27 01:53) RDW 15.3 (09/27 05:52) 15.0 (09/27 01:53) MCHC 33.7 (09/27 05:52) 33.3 (12/01 01:53) Neutrophil Ab 6.70 (09/27 05:52) 4.60 (09/26 03:52) Monocyte Ab 0.90 (09/27) 0.70 (09/2652) Eosinophil Ab 0.00 (09/27 05:) 0.20 (09/26 03:52) Basophil Ab 0.00 (09/27 05:) 0.10 (09/26 03:52) Lymphocyte Ab 0.70 (09/27) 1.20 (09/2652) COAGULATION Partial Thromboplastin (aPTT) 27.8 Sec (09/27) 28.2 Sec (09/26 14:10) INR 1.37 (09/27) 1.31 (09/26 14:10) Prothrombintime (PT) 15.8 Sec (09/2752) 15.1 Sec (09/26 14:10) OTHER LABS Anion Gap 10.0 mMol/L (09/2752) 16.0 mMol/L (09/26 14:10) GFR Est. Non 41 mL/min (09/26 14:10) 38 mL/min (09/25 05:36) GFR Est. Berta 50 mL/min (09/26 14:10) 45 mL/min (09/25 05:36) Alkaline Phosphatase 69 Units/L (09/26 03:52) ALT/SGPT 35 Units/L (09/26 03:52) AST/SGOT 29 Units/L (09/26 03:52) Bilirubin Total 0.6 mg/dL (09/26) Protein 6.8 gm/dL (09/26) Albumin Level 3.3 gm/dL (09/26) PTH Intact 54 Picogram/ml (09/24 07:) Vitamin D 25-Hydroxy Leve 26.01 ng/mL (09/24 07:) MPV 8.6 FL (09/2752) 8.8 FL (09/2753) Neutrophil 80.8 % (09/27) 67.5 % (09/26) Lymphocyte 8.2 % (09/27) 18.1 % (09/26) Monocyte 10.7 % (09/27) 10.4 % (09/26) Eosinophil 0.1 % (09/27) 3.3 % (09/26) Basophil 0.2 % (09/27) 0.7 % (09/26) Blood Type ABO and Rh(D) BPOS (09/25) Antibody Screen Interpret NEGATIVE (09/25 17:) Fresh [...] Not Given HYDROcodone/Acetaminophen 5 mg/325 mg Tab ([place] 5 GEq) 1 Tab, PO, Tab, Q4h, [...] PROGRESS NOTES Observed: 09/27/2018 Status: C Source: [facility] 8:00 [facility] REPOSITORY Patient: LOVE PHELAN Age: 73 years Sex: Male : 1945 Associated Diagnoses: None Author: Manuela Ybarra CNP Supervising Physician Comments Assessment and Plan 1. Mitral regurg : POD # 1Right anterior mini thoracotomy; Mitral valve replacement with 27 mm Medtronic [place] tissue valve - Stable post mvr, Pain Q ball for pain - Statin/aspirin/BB - D/C A line/[place] - Keep chest tubes for now. Keep [...] inferior 10% of chest not included in [id number] potentially study accuracy. [place]-Yajaira catheter tip overlies right main pulmonary artery. [...] HEALTH SYSTEM REPOSITORY Patient: LOVE PHELAN MRN: [id number] Age: 73 years Sex: Male : 1945 [...] CXR pending. Will monitor. Seun Keyes MD [facility], [facility]. Pager: [phone] Subjective seen this am, extubated, denies SOB, [...] (09/27 05:52) 27.5 (09/27 01:53) RDW 15.3 (09/27 05:52) 15.0 (09/27 01:53) MCHC 33.7 (09/27 05:52) 33.3 (09/27 01:53) Neutrophil Ab 6.70 (09/27 05:52) 4.60 (09/26 03:52) Monocyte Ab 0.90 (09/27 05:52) 0.70 (09/26 03:52) Eosinophil Ab 0.00 (09/27 05:52) 0.20 (09/26 03:52) Basophil Ab 0.00 (09/27 05:52) 0.10 (09/26 03:52) Lymphocyte Ab 0.70 (09/27) 1.20 (09/2652) COAGULATION Partial Thromboplastin (aPTT) 27.8 Sec (09/27) 28.2 Sec (09/26 14:10) INR 1.37 (09/27) 1.31 (09/26 14:10) Prothrombintime (PT) 15.8 Sec (09/27) 15.1 Sec (09/26 14:10) OTHER LABS Anion Gap 10.0 mMol/L (09/2752) 16.0 mMol/L (09/26 14:10) GFR Est. Non 41 mL/min (09/26 14:10) 38 mL/min (09/25 05:36) GFR Est. Berta 50 mL/min (09/26 14:10) 45 mL/min (09/25 05:36) Alkaline Phosphatase 69 Units/L (09/2652) ALT/SGPT 35 Units/L (09/2652) AST/SGOT 29 Units/L (09/26) Bilirubin Total 0.6 mg/dL (09/2652) Phosphorus Level 4.2 mg/dL (09/24 07:28) Protein 6.8 gm/dL (11/30 03:52) Albumin Level 3.3 gm/dL (09/26 03:52) 3.8 gm/dL (09/24 07:) Folic Acid Level 18.0 ng/mL (09/24 07:) PTH Intact 54 Picogram/ml (09/24 07:28) Vitamin B12 Level 1399 Picogram/ml (09/24 07:28) Vitamin D 25-Hydroxy Leve 26.01 ng/mL (09/24 07:28) MPV 8.6 FL (09/27 05:52) 8.8 FL (09/27 01:53) Neutrophil 80.8 % (09/27 05:52) 67.5 % (09/26 03:52) Lymphocyte 8.2 % (09/27 05:) 18.1 % (09/26 03:52) Monocyte 10.7 % (09/27 05:) 10.4 % (09/26 03:52) Eosinophil 0.1 % (09/27 05:) 3.3 % (09/26 03:52) Basophil 0.2 % (09/27 05:) 0.7 % (09/26 03:52) Blood Type ABO and Rh(D) BPOS (09/25 17:29) Antibody Screen Interpret NEGATIVE (09/25 17:29) Fresh Frozen Plasma: NOTNEED (09/25 15:39) Platelet Concentrate NOTNEED (09/25 15:39) GLUCOSE POCT Collected: 09/27/2018 Status: F Source: [facility] (UPLOADED) 5:54 AM [facility] REPOSITORY TYPE CODE TESTS RESULT OUT OF REFERENCE UNITS RANGE LAB 2340-8(LOIN 70-110 mg/dL C) High Glucose 124 POCT-LAB Result Comment: Treatment ranges and critical values established by Patient Care Services. All follow-up actions were taken by Patient Care Services. Performed By: #### 2430-8 #### [facility] POINT OF CARE MAGNESIUM LEVEL Collected: 09/27/2018 Status: F Source: [facility] 5:52 AM [facility] SYSTEM REPOSITORY TYPE CODE TESTS RESULT OUT OF REFERENCE UNITS RANGE LAB 54596-1(LO 1.8-2.5 mg/dL INC) High Magnesium Level 2.7 Performed By: #### 97375-7, 54180-1 #### [facility] [address], [place] BASIC METABOLIC PANEL Collected: 09/27/2018 Status: F Source: [facility] 5:52 AM [facility] REPOSITORY TYPE CODE TESTS RESULT OUT OF RANGE REFERENCE UNITS LAB 31895-4(LO 8.9-10.3 mg/dL INC) Low Calcium Total 8.6 LAB 15434-0(LO 8-20 mg/dL INC) High BUN 50 LAB 21747-7(LO 6.0-18.0 mMol/L INC) Anion Normal Gap 10.0 LAB 2951-2(HANY 136-145 mMol/L NC) Sodium Normal Level 140 LAB 2160-0(HANY 0.60-1.30 mg/dL NC) High Creatinine 1.86 LAB 2823-3(HANY 3.6-5.1 mMol/L NC) Normal Potassium Level 4.6 LAB 33312-5(LO 70-110 mg/dL INC) High Glucose Level 126 LAB 2028-9(HANY 22-32 mMol/L NC) Carbon Normal Dioxide Level 25 LAB 2075-0(HANY 98-107 mMol/L NC) Chloride Normal Level 105 Performed By: #### 45676-6, 30024-4 #### [facility] [address], [place] PROTHROMBIN TIME Collected: 09/27/2018 Status: F Source: [facility] 5:52 AM [facility] REPOSITORY TYPE CODE TESTS RESULT OUT OF RANGE REFERENCE UNITS LAB 98600-2(HANY NC) Normal INR 1.37 Result Comment: The recommended therapeutic INR range for most cardiac indications is 2.0-3.0. For high intensity therapy(ie.mechanical heart valves), the recommended range is 2.5-3.5. LAB 5902-2(LOINC) 9.3-12.4 Sec Prothrombin High Time (PT) 15.8 Performed By: #### 5902-2, 3173-2 #### [facility] [address], [place] PARTIAL THROMBOPLASTIN Collected: 09/27/2018 Status: F Source: [facility] TIME (APTT) 5:52 AM [facility] SYSTEM REPOSITORY TYPE CODE TESTS RESULT OUT OF REFERENCE UNITS RANGE LAB 05915-4(LO 23.6-35.3 Sec INC) Partial Normal Thromboplastin 27.8 (aPTT) Performed By: #### 5902-2, 3173-2 #### [facility] [address], [place] CBC WITH DIFFERENTIAL Collected: 09/27/2018 Status: F Source: [facility] 5:52 AM [facility] REPOSITORY TYPE CODE TESTS RESULT OUT OF RANGE REFERENCE UNITS LAB 37943-9(LO 0.0-7.0 % INC) Normal Eosinophil 0.1 LAB 82596-9(LO 40.0-70.0 % INC) High Neutrophil 80.8 LAB 56936-6(LO 80.0-97.0 FL INC) MCV Normal 82.8 LAB 98400-7(LO 142-424 thou/mcL INC) Low Platelet Count 97 Result Comment: SLIDE PREVIOUSLY REVIEWED LAB 03387-3(LOINC) 0.0-12.0 % Normal Monocyte 10.7 LAB 731-0(LOINC) 1.00-4.80 thou/mcL Low Lymphocyte Absolute 0.70 LAB 45628-4(LOINC) 39.0-49.0 % Low Hematocrit 31.5 LAB 704-7(LOINC) 0.00-0.20 thou/mcL Normal Basophil Absolute 0.00 LAB 718-7(LOINC) 13.5-17.5 gm/dL Low Hemoglobin 10.6 LAB 711-2(LOINC) 0.00-0.70 thou/mcL Normal Eosinophil Absolute 0.00 LAB 86235-8(LOINC) 11.0-14.8 % RDW High 15.3 LAB 751-8(LOINC) 1.80-7.70 thou/mcL Normal Neutrophil Absolute 6.70 LAB 92455-1(LOINC) 0.0-2.0 % Normal Basophil 0.2 LAB 93493-0(LOINC) 4.30-5.70 million/mcL Red Low Blood Cell Count 3.80 LAB 64056-2(LOINC) 22.0-44.0 % Low Lymphocyte 8.2 LAB 18429-7(LOINC) 32.0-36.0 gm/dL MCHC Normal 33.7 LAB 742-7(LOINC) 0.00-0.90 thou/mcL Normal Monocyte Absolute 0.90 LAB 36410-8(LOINC) 4.6-10.2 thou/mcL WBC Normal Count 8.3 LAB 28625-5(LOINC) 27.0-34.0 Picograms MCH Normal 27.9 LAB 73779-7(LOINC) 6.2-12.1 FL MPV Normal 8.6 Performed By: #### 88251-0 #### [facility] [address], [place] GLUCOSE POCT Collected: 09/27/2018 Status: F [...] 09/27/2018 Status: F Source: [facility] (UPLOADED) 1:59 AM [facility] REPOSITORY TYPE CODE TESTS RESULT OUT OF REFERENCE UNITS RANGE LAB 2340-8(LOIN 70-110 mg/dL C) High Glucose 206 POCT-LAB Result Comment: Treatment ranges and critical values established by Patient Care Services. All follow-up actions were taken by Patient Care Services. Performed By: #### 2430-8 #### [facility] POINT OF CARE CBC Collected: 09/27/2018 Status: F Source: [facility] 1:53 AM [facility] REPOSITORY TYPE CODE TESTS RESULT OUT OF RANGE REFERENCE UNITS LAB 62072-7(LO 11.0-14.8 % INC) High RDW 15.0 LAB 99698-9(LO 80.0-97.0 FL INC) MCV Normal 82.4 LAB 88980-7(LO 6.2-12.1 FL INC) MPV Normal 8.8 LAB 31103-9(LO 32.0-36.0 gm/dL INC) MCHC Normal 33.3 LAB 07322-6(LO 39.0-49.0 % INC) Low Hematocrit 32.1 LAB 83125-8(LO 4.6-10.2 thou/mcL INC) WBC Normal Count 8.2 LAB 718-7(LOIN 13.5-17.5 gm/dL C) Low Hemoglobin 10.7 LAB 44865-3(LO 142-424 thou/mcL INC) Low Platelet Count 98 Result Comment: SLIDE PREVIOUSLY REVIEWED LAB 07523-2(LOINC) 27.0-34.0 Picograms Normal MCH 27.5 LAB 30245-9(LOINC) 4.30-5.70 million/mcL Low Red Blood 3.89 Cell Count Performed By: #### 58218-1 #### [facility] [address], [place] POTASSIUM LEVEL Collected: 09/27/2018 Status: F Source: [facility] SYD 1:53 AM HEALTH SYSTEM REPOSITORY TYPE CODE TESTS RESULT OUT OF RANGE REFERENCE UNITS LAB 2823-3(HANY 3.6-5.1 mMol/L NC) Normal Potassium Level 4.5 Performed By: #### 2823-3, 74099-2, - 9 #### [facility] [address], [place] CALCIUM TOTAL Collected: 09/27/2018 Status: F Source: [facility] 1:53 AM [facility] REPOSITORY TYPE CODE TESTS RESULT OUT OF REFERENCE UNITS RANGE LAB 70718-1(HANY 8.9-10.3 mg/dL NC) Low Calcium Total 8.6 Performed By: #### 2823-3, 60177-6, - 9 #### [facility] [address], [place] MAGNESIUM LEVEL Collected: 09/27/2018 Status: F Source: [facility] 1:53 AM [facility] REPOSITORY TYPE CODE TESTS RESULT OUT OF REFERENCE UNITS RANGE LAB 30919-1(LO 1.8-2.5 mg/dL INC) High Magnesium Level 2.7 Performed By: #### 2823-3, 31061-0, - 9 #### [facility] [address], [place] GLUCOSE POCT Collected: 09/27/2018 Status: F [...] GLUCOSE POCT Collected: 09/26/2018 Status: F Source: [facility] (UPLOADED) 10:00 PM [facility] REPOSITORY TYPE CODE TESTS RESULT OUT OF REFERENCE UNITS RANGE LAB 2340-8(LOIN 70-110 mg/dL C) High Glucose 168 POCT-LAB Result Comment: Treatment ranges and critical values established by Patient Care Services. All follow-up actions were taken by Patient Care Services. Performed By: #### 2430-8 #### [facility] POINT OF CARE CBC Collected: 09/26/2018 Status: F Source: [facility] 9:58 PM [facility] REPOSITORY TYPE CODE TESTS RESULT OUT OF REFERENCE UNITS RANGE LAB 33512-1(LO 4.30-5.70 million/mcL INC) Low Red Blood Cell 4.00 Count LAB 04113-5(LO 6.2-12.1 FL INC) MPV Normal 8.9 LAB 56647-7(LO 32.0-36.0 gm/dL INC) MCHC Normal 33.3 LAB 72778-5(LO 39.0-49.0 % INC) Low Hematocrit 33.4 LAB 83531-2(LO 4.6-10.2 thou/mcL INC) WBC Normal Count 7.0 LAB 96008-4(LO 27.0-34.0 Picograms INC) MCH Normal 27.8 LAB 718-7(LOIN 13.5-17.5 gm/dL C) Low Hemoglobin 11.1 LAB 06879-7(LO 142-424 thou/mcL INC) Low Platelet Count 98 Result Comment: Result confirmed by slide review. LAB 86112-6(LOINC) 11.0-14.8 % High RDW 14.9 LAB 85775-6(LOINC) 80.0-97.0 FL Normal MCV 83.6 Performed By: #### 77209-2 #### [facility] [address], [place] POTASSIUM LEVEL Collected: 09/26/2018 Status: F Source: [facility] 9:58 PM [facility] REPOSITORY TYPE CODE TESTS RESULT OUT OF RANGE REFERENCE UNITS LAB 2823-3(HANY 3.6-5.1 mMol/L NC) Normal Potassium Level 4.5 Performed By: #### 2823-3, 46441-3, - 9 #### [facility] [address], [place] CALCIUM TOTAL Collected: 09/26/2018 Status: F Source: [facility] 9:58 PM [facility] REPOSITORY TYPE CODE TESTS RESULT OUT OF REFERENCE UNITS RANGE LAB 44158-9(HANY 8.9-10.3 mg/dL NC) Low Calcium Total 8.6 Performed By: #### 2823-3, 96004-7, - 9 #### [facility] [address], [place] MAGNESIUM LEVEL Collected: 09/26/2018 Status: F Source: [facility] 9:58 PM [facility] REPOSITORY TYPE CODE TESTS RESULT OUT OF REFERENCE UNITS RANGE LAB 13357-2(LO 1.8-2.5 mg/dL INC) High Magnesium Level 2.8 Performed By: #### 2823-3, 23573-1, - #### [facility] [address], [place] GLUCOSE POCT Collected: 09/26/2018 Status: F Source: [facility] SYD (UPLOADED) 7:55 PM [facility] SYSTEM REPOSITORY TYPE CODE TESTS RESULT OUT OF REFERENCE UNITS RANGE LAB 2340-8(LOIN 70-110 mg/dL C) High Glucose 188 POCT-LAB Result Comment: Treatment ranges and critical values established by Patient Care Services. All follow-up actions were taken by Patient Care Services. Performed By: #### 2430-8 #### [facility] POINT OF CARE BLOOD GAS POCT ABG Collected: 09/26/2018 Status: F Source: [facility] LYTES LACTATE 6:21 PM [facility]ALTH SYSTEM (UPLOAD) REPOSITORY [...] were taken by Patient Care Services. LAB 10187-9(LOINC) VOL% O2 Content POCT Normal 14.7 LAB 2075-0(LOINC) 98-1 mEq/L 06 Chloride POCT Normal 103 LAB 40464-3(LOINC) 0.5- mMol/L 1.6 Lactate POCT Normal 1.6 LAB 2708-6(LOINC) 95.0 % O2 -99. Saturation Arterial Normal 0 POCT 95.5 LAB 73636-0(LOINC) 3.5- mEq/L 5.0 Potassium POCT Normal 4.6 LAB 91143-0(LOINC) FiO2 POCT Normal 36.0 LAB 96522-5(LOINC) 39-4 % Low 9 Hematocrit POCT 34 LAB 98226-4(LOINC) 21.0 mMol/L -28. HCO3 Arterial POCT Normal 0 27.5 LAB 2951-2(LOINC) 136- mEq/L 146 Sodium POCT Normal 141 LAB 2614-6(LOINC) 0.2- % 0.6 Methemoglobin POCT Normal 0.6 LAB 95912-6([facility]) Sample Type POCT Normal Arterial LAB 2703-7(LOINC) 83-1 mmHg pO2 Low 08 Arterial POCT 77 LAB 35780-6(INC) 94.0 % O2 Low -99. Hemoglobin POCT 0 93.3 LAB 62609-5(LOINC) 1.12 mMol/L -1.3 Calcium Ionized POCT Normal 2 1.21 LAB 6-3(LOINC) 22.0 mMol/L -29. Total CO2 Arterial Normal 0 POCT 25.5 LAB 2019-8(LOINC) 32-4 mmHg 8 pCO2 Arterial POCT Normal 46 LAB 33272-4(LOINC) 70-1 mg/dL 10 Glucose POCT High 207 LAB 04012-0(LOINC) 10.0 mEq/L -20. Anion Gap POCT Normal 0 10.7 LAB 08032-1(LOINC) -2.0 mMol/L -3.0 Base Excess POCT Normal 2.0 LAB 83846-3(LOINC) % Carboxyhemoglobin POCT Normal 1.7 Result Comment: NON SMOKERS <1.5% SMOKERS 1.5 - 9.0% Performed By: #### 88098-2a4 #### POINT OF CARE CBC Collected: 09/26/2018 Status: F Source: [facility] 6:12 PM [facility] REPOSITORY TYPE CODE TESTS RESULT OUT OF REFERENCE UNITS RANGE LAB 84317-6(LO 6.2-12.1 FL INC) MPV Normal 8.9 LAB 23722-5(LO 80.0-97.0 FL INC) MCV Normal 83.6 LAB 718-7(LOIN 13.5-17.5 gm/dL C) Low Hemoglobin 11.2 LAB 14004-0(LO 142-424 thou/mcL INC) Low Platelet Count 104 LAB 60247-5(LO 32.0-36.0 gm/dL INC) MCHC Normal 33.3 LAB 33490-4(LO 4.30-5.70 million/mcL INC) Low Red Blood Cell 4.03 Count LAB 85567-2(LO 39.0-49.0 % INC) Low Hematocrit 33.7 LAB 80953-4(LO 4.6-10.2 thou/mcL INC) WBC Normal Count 7.1 LAB 79914-2(LO 11.0-14.8 % INC) RDW High 15.3 LAB 22382-5(LO 27.0-34.0 Picograms INC) MCH Normal 27.8 Performed By: #### 83250-4 #### [facility] [address], [place] CALCIUM TOTAL Collected: 09/26/2018 Status: F Source: [facility] 6:12 [facility] SYSTEM REPOSITORY TYPE CODE TESTS RESULT OUT OF REFERENCE UNITS RANGE LAB 15837-0(HANY 8.9-10.3 mg/dL NC) Low Calcium Total 8.8 Performed By: #### 12916-2, 71473-0, 2823- 3 #### [facility] [address], [place] MAGNESIUM LEVEL Collected: 09/26/2018 Status: F Source: [facility] 6:12 [facility] SYSTEM REPOSITORY TYPE CODE TESTS RESULT OUT OF REFERENCE UNITS RANGE LAB 71974-3(LO 1.8-2.5 mg/dL INC) High Magnesium Level 2.9 Performed By: #### 92831-8, 33168-4, 2823- 3 #### [facility] [address], [place] POTASSIUM LEVEL Collected: 09/26/2018 Status: F Source: [facility] 6:12 [facility] REPOSITORY TYPE CODE TESTS RESULT OUT OF RANGE REFERENCE UNITS LAB 2823-3(HANY 3.6-5.1 mMol/L NC) Normal Potassium Level 4.5 Performed By: #### 68936-6, 22577-3, 2823- 3 #### [facility] [address] [place], [place] BLOOD GAS POCT ABG Collected: 09/26/2018 Status: F Source: [facility] LACTATE 5:28 [facility] SYSTEM (UPLOAD) REPOSITORY TYPE CODE TESTS RESULT OUT OF REFERENCE UNITS RANGE LAB 39285-1(L 21.0-28.0 mMol/L OINC) HCO3 Arterial POCT Normal 26.1 LAB 72879-5(L -2.0-3.0 mMol/L OINC) Base Excess POCT Normal 1.2 LAB 53559-1(L % OINC) Carboxyhemoglobin POCT Normal 1.7 Result Comment: NON SMOKERS <1.5% SMOKERS 1.5 - 9.0% LAB 81697-0(LOINC) 70-110 mg/dL High Glucose POCT 207 LAB 47160-0(LOINC) 10.0-20.0 mEq/L Anion Normal Gap POCT 11.5 LAB 2703-7(LOINC) 83-108 mmHg pO2 Normal Arterial POCT 84 LAB 83041-0(LOINC) 0.5-1.6 mMol/L High Lactate POCT 1.9 LAB 718-7(LOINC) 13.5-17.5 gm/dL Low Hemoglobin POCT 11.1 LAB 2075-0(LOINC) 98-106 mEq/L Normal Chloride POCT 104 LAB 2019-8(LOINC) 32-48 mmHg pCO2 Normal Arterial POCT 42 LAB 15569-3(LOINC) FiO2 Normal POCT 40.0 LAB 80405-0(LOINC) 39-49 % Low Hematocrit POCT 34 LAB 81306-6(LOINC) 3.5-5.0 mEq/L Normal Potassium POCT 4.5 LAB 31629-0(LOINC) Normal Sample Type Arterial POCT LAB 2744-1(LOINC) 7.35-7.45 Blood Normal Gas pH Arterial 7.40 POCT Result Comment: A result of UNABLE indicates the actual value could not be calculated. Treatment ranges and critical values established by Patient Care Services. All follow-up actions were taken by Patient Care Services. LAB 74947-0(LOINC) VOL% O2 Content POCT Normal 14.9 LAB 2951-2(LOINC) 136-14 mEq/L 6 Sodium POCT Normal 141 LAB 2614-6(LOINC) 0.2-0. % 6 Methemoglobin Normal POCT 0.6 LAB 02665-3(LOINC) 1.12-1 mMol/L .32 Calcium Ionized Normal POCT 1.23 LAB 2708-6(LOINC) 95.0-9 % 9.0 O2 Saturation Normal Arterial POCT 97.2 LAB 2025-3(LOINC) 22.0-2 mMol/L 9.0 Total CO2 Normal Arterial POCT 24.1 LAB 28564-0(LOINC) 94.0-9 % 9.0 O2 Hemoglobin Normal POCT 95.0 Performed By: #### 65022-0j7 #### POINT OF CARE BLOOD GAS POCT ABG Collected: 09/26/2018 Status: F Source: [facility] LACTATE 4:40 PM HEALTH SYSTEM (UPLOAD) REPOSITORY TYPE CODE TESTS RESULT OUT OF REFERENCE UNITS RANGE LAB 2951-2(LO 136-146 mEq/L INC) Sodium POCT Normal 140 LAB 93253-0(L 70-110 mg/dL OINC) Glucose POCT High 227 LAB 23529-8(L OINC) Sample Type POCT Normal Arterial LAB 2025-3(LO 22.0-29.0 mMol/L INC) Total CO2 Arterial Normal POCT 23.9 LAB 28337-3(L 94.0-99.0 % OINC) O2 Hemoglobin POCT Low 92.8 LAB 15565-9(L % OINC) Carboxyhemoglobin POCT Normal 1.7 Result Comment: NON SMOKERS <1.5% SMOKERS 1.5 - 9.0% LAB 2703-7(LOINC) 83-108 mmHg Low pO2 Arterial POCT 68 LAB 2075-0(LOINC) 98-106 mEq/L Chloride POCT Normal 103 LAB 65759-9(LOINC) 39-49 % Low Hematocrit POCT 34 LAB 2614-6(LOINC) 0.2-0.6 % Methemoglobin Normal POCT 0.6 LAB 2708-6(LOINC) 95.0-99.0 % Low O2 Saturation Arterial POCT 94.9 LAB 23705-7(LOINC) -2.0-3.0 mMol/L Base Excess Normal POCT 1.6 LAB 37840-7(LOINC) 3.5-5.0 mEq/L Potassium POCT Normal 4.8 LAB 26533-4(LOINC) 1.12-1.32 mMol/L Calcium Normal Ionized POCT 1.22 LAB 54565-1(LOINC) 0.5-1.6 mMol/L Lactate POCT High 1.9 LAB 93289-9(LOINC) VOL% O2 Content Normal POCT 14.6 LAB 718-7(LOINC) 13.5-17.5 gm/dL Low Hemoglobin POCT 11.2 LAB 80783-3(LOINC) 10.0-20.0 mEq/L Anion Gap POCT Normal 11.2 LAB 34706-5(LOINC) FiO2 POCT Normal 40.0 LAB 2744-1(LOINC) 7.35-7.45 Blood Gas pH Normal Arterial POCT 7.43 Result Comment: A result of UNABLE indicates the actual value could not be calculated. Treatment ranges and critical values established by Patient Care Services. All follow-up actions were taken by Patient Care Services. LAB 2019-8(LOINC) 32-48 mmHg Normal pCO2 Arterial POCT 39 LAB 50643-9(LOINC) 21.0-28.0 mMol/L Normal HCO3 Arterial POCT 25.9 Performed By: #### 27093-9h8 #### POINT OF CARE GLUCOSE POCT Collected: [...] NOTES Observed: 09/26/2018 Status: F Source: [facility] 3:34 PM [facility] SYSTEM REPOSITORY Patient: LOVE PHELAN MRN: ([facility])-[id number] Age: 73 years Sex: Male : 1945 Associated Diagnoses: None Author: Cristhian Hong DO Assessment Medicine sign-off Note: Pt underwent MVR today, now in CTS recovery room. Cr is steady, nephro following Attending is Dr. Moreno. Not much to add from a general medicine standpoint. Will sign off. Call with q's, thanks. Comments Supervising Physician Comments ANESTHESIA POSTOPERATIVE Observed: 09/26/2018 Status: F Source: [facility] NOTE 3:25 PM [facility]ALTH SYSTEM REPOSITORY Patient: LOVE PHELAN MRN: ([facility])-[id number] Age: 73 years Sex: Male : 1945 [...] PROGRESS NOTES Observed: 09/26/2018 Status: F Source: [facility] 2:57 PM [facility] SYSTEM REPOSITORY Patient: LOVE PHELAN MRN: ([facility])-[id number] Age: 73 years Sex: Male : 1945 [...] 05:36) COAGULATION Partial Thromboplastin (aPTT) 31.9 Sec (09/2652) INR 1.29 (09/26) Prothrombintime (PT) 14.9 Sec (09/26) OTHER LABS Anion Gap 8.0 mMol/L (09/26) 8.0 mMol/L (09/25 05:36) GFR Est. Non 38 mL/min (09/25) GFR Est. Berta 45 mL/min (09/25) Alkaline Phosphatase 69 Units/L (09/26) ALT/SGPT 35 Units/L (09/26) AST/SGOT 29 Units/L (09/26) Bilirubin Total 0.6 mg/dL (09/26) Phosphorus Level 4.2 mg/dL (09/24) Protein 6.8 gm/dL (09/26) Albumin Level 3.3 gm/dL (09/26) 3.8 gm/dL (09/24) Folic Acid Level 18.0 ng/mL (09/24) PTH Intact 54 Picogram/ml (09/24) Vitamin B12 Level 1399 Picogram/ml (09/24) Vitamin D 25-Hydroxy Leve 26.01 ng/mL (09/24) MPV 9.1 FL (09/26) 9.1 FL (09/25 05:36) Neutrophil 67.5 % (09/26) 64.5 % (09/25) Lymphocyte 18.1 % (09/26) 20.7 % (09/25 05:36) Monocyte 10.4 % (09/26) 10.4 % (09/25 05:36) Eosinophil 3.3 % (09/26) 3.5 % (11/29 05:36) Basophil 0.7 % (09/26 03:52) 0.9 % (09/25 05:36) Blood Type ABO and Rh(D) BPOS (09/25 17:29) Antibody Screen Interpret NEGATIVE (09/25 17:) Fresh Frozen Plasma: NOTNEED (09/25 15:39) Platelet Concentrate NOTNEED (09/25 15:39) XR CHEST 1 VIEW Observed: 09/26/2018 Status: F Source: [facility] (STATISTICS) 2:55 PM [facility]ALTH SYSTEM REPOSITORY EXAMINATION [...] side port below the esophagogastric junction. A [place]-Yajaira catheter was placed from a left internal [...] right lung base in the subhilar space. Jed Velarde thanks you for the opportunity to care for your patient. Workstation ID: [id number] FINAL REPORT Dictated By: Eladio Aldridge MD 09/26/2018 14:59 Assigned Physician: Eladio Aldridge MD Reviewed and Electronically Signed By: Eladio Aldridge MD 09/26/2018 15:03 Transcribed by: CATERINA 09/26/2018 14:59 Technologist: SARAHY TRANSESOPHAGEAL ECHO TXT Observed: 09/26/2018 Status: F Source: [facility] 2:45 PM [facility] SYSTEM REPOSITORY Transesophageal Echocardiography Report (CLAIRE) Demographics Patient Name TAPAN Plasencia Date of 1945 Patient Number [id number] Age 73 year(s) Visit Number [id number] Gender Male Room Number OR Admission Status Inpatient Referring Mariano Moreno [employer]phalt [employer] Rafal Bragg RDCS Physician Interpreting Christi Romero MD Ordering Mariano Moreno Provider Physician Procedure [...] CLAIRE Performed By: the attending and the rehabilitator Type of Anesthesia: General anesthesia CONCLUSIONS SUMMARY [...] Contracta: Signature Observed: 09/26/2018 Status: F Source: [facility] TEST RESULT EJECTION 2:45 PM HEALTH SYSTEM FRACTION REPOSITORY 45-50 BLOOD GAS POCT ABG Collected: 09/26/2018 Status: F Source: [facility] LYTES LACTATE 2:33 PM [facility]ALTH SYSTEM (UPLOAD) REPOSITORY TYPE CODE TESTS RESULT OUT OF REFERENCE UNITS RANGE LAB 83875-3(L 10.0-20.0 mEq/L OINC) Anion Gap POCT Normal 14.7 LAB 83128-8(L 21.0-28.0 mMol/L OINC) HCO3 Arterial POCT Normal 23.9 LAB 2614-6(LO 0.2-0.6 % INC) Methemoglobin POCT Normal 0.5 LAB 42459-7(L 39-49 % OINC) Low Hematocrit POCT 33 LAB 2026-3(LO 22.0-29.0 mMol/L INC) Total CO2 Arterial Normal POCT 22.1 LAB 2703-7(LO 83-108 mmHg INC) pO2 Arterial POCT High 205 LAB 67649-7(L -2.0-3.0 mMol/L OINC) Base Excess POCT Normal -0.8 LAB 2075-0(LO 98-106 mEq/L INC) Chloride POCT Normal 102 LAB 87118-1(L % OINC) Carboxyhemoglobin POCT Normal 1.4 Result Comment: NON SMOKERS <1.5% SMOKERS 1.5 - 9.0% LAB 82154-4(LOINC) 94.0-99.0 % O2 Normal Hemoglobin POCT 98.0 LAB 17001-1(LOINC) Normal Sample Type Arterial POCT LAB 2019-8(LOINC) 32-48 mmHg pCO2 Normal Arterial POCT 39 LAB 49195-2(LOINC) VOL% O2 Normal Content POCT 15.3 LAB 20559-1(LOINC) 1.12-1.32 mMol/L Low Calcium Ionized 0.91 POCT LAB 24707-6(LOINC) 3.5-5.0 mEq/L High Potassium POCT 5.1 LAB 78717-5(LOINC) 0.5-1.6 mMol/L High Lactate POCT 2.9 LAB 91985-3(LOINC) 70-110 mg/dL High Glucose POCT 228 LAB [...] 136-146 mEq/L Sodium Normal POCT 141 LAB 61039-2(LOINC) FiO2 Normal POCT 100.0 LAB 718-7(LOINC) 13.5-17.5 gm/dL Low Hemoglobin POCT 10.8 Performed By: #### [id number] #### POINT OF CARE CBC Collected: 09/26/2018 Status: F Source: [facility] REPOSITORY TYPE CODE TESTS RESULT OUT OF REFERENCE UNITS RANGE LAB 97420-1(LO 142-424 thou/mcL INC) Normal Platelet Count 151 LAB 44631-5(LO 32.0-36.0 gm/dL INC) MCHC Normal 32.7 LAB 65578-8(LO 80.0-97.0 FL INC) MCV Normal 83.9 LAB 718-7(LOIN 13.5-17.5 gm/dL C) Low Hemoglobin 10.7 LAB 76535-7(LO 39.0-49.0 % INC) Low Hematocrit 32.8 LAB 29156-6(LO 4.30-5.70 million/mcL INC) Low Red Blood Cell 3.91 Count LAB 41917-3(LO 6.2-12.1 FL INC) MPV Normal 9.0 LAB 25303-8(LO 11.0-14.8 % INC) RDW High 14.9 LAB 95914-8(LO 27.0-34.0 Picograms INC) MCH Normal 27.4 LAB 86116-8(LO 4.6-10.2 thou/mcL INC) WBC High Count 16.8 Performed By: #### 44979-5 #### [facility] [address], [place] GFRAA Collected: 09/26/2018 Status: F Source: [facility] REPOSITORY TYPE CODE TESTS RESULT OUT OF RANGE REFERENCE UNITS LAB 93343-9(LO mL/min INC) GFR Normal Estimated 50 Result Comment: The MDRD equation has not been validated for those over 70 years, women, patients with serious co-morbid conditions, or with extremes of body size, muscle mass of nutritional status. Performed By: #### 66316-6, 92858-4w0, 15515-0, 35495-9 #### [facility] [address], [place] GFRBB Collected: 09/26/2018 Status: F Source: [facility] 2:[facility] REPOSITORY TYPE CODE TESTS RESULT OUT OF RANGE REFERENCE UNITS LAB 61572-0(LO mL/min INC) GFR Normal Estimated Non 41 Performed By: #### 94190-7, 83683-9n8, 05577-2, 67173-7 #### [facility] [address], [place] MAGNESIUM LEVEL Collected: 09/26/2018 Status: F Source: [facility] REPOSITORY TYPE CODE TESTS RESULT OUT OF REFERENCE UNITS RANGE LAB 08385-2(LO 1.8-2.5 mg/dL INC) High Magnesium Level 3.1 Performed By: #### 77835-0, 77782-1x7, 71529-3, 05823-8 #### [facility] [address], [place] BASIC METABOLIC PANEL Collected: 09/26/2018 Status: F Source: [facility] 2:[facility] REPOSITORY TYPE CODE TESTS RESULT OUT OF RANGE REFERENCE UNITS LAB 2160-0(HANY 0.60-1.30 mg/dL NC) High Creatinine 1.66 LAB 41156-0(LO 8-20 mg/dL INC) High BUN 47 LAB 46695-5(LO 6.0-18.0 mMol/L INC) Anion Normal Gap 16.0 LAB 2075-0(HANY 98-107 mMol/L NC) Chloride Normal Level 102 LAB 2951-2(HANY 136-145 mMol/L NC) Sodium Normal Level 139 LAB 2823-3(HANY 3.6-5.1 mMol/L NC) Normal Potassium Level 5.1 LAB 30442-2(LO 70-110 mg/dL INC) High Glucose Level 243 LAB 09114-7(LO 8.9-10.3 mg/dL INC) Low Calcium Total 7.9 LAB 2028-9(HANY 22-32 mMol/L NC) Low Carbon Dioxide Level 21 Performed By: #### 73428-6, 71496-4e5, 10791-6, 29557-0 #### [facility] [address] [place], [place] PROTHROMBIN TIME Collected: 09/26/2018 Status: F Source: TAPPEN 2:10 PM [facility] REPOSITORY TYPE CODE TESTS RESULT OUT OF RANGE REFERENCE UNITS LAB 5902-2(HANY 9.3-12.4 Sec NC) High Prothrombin Time (PT) 15.1 LAB 27606-1(LO INC) INR Normal 1.31 Result Comment: The recommended therapeutic INR range for most cardiac indications is 2.0-3.0. For high intensity therapy(ie.mechanical heart valves), the recommended range is 2.5-3.5. Performed By: #### 5902-2, 3173-2 #### [facility] [address] [place], [place] PARTIAL THROMBOPLASTIN Collected: 09/26/2018 Status: F Source: TAPPEN TIME (APTT) 2:10 PM [facility]ALTH SYSTEM REPOSITORY TYPE CODE TESTS RESULT OUT OF REFERENCE UNITS RANGE LAB 36848-2(LO 23.6-35.3 Sec INC) Partial Normal Thromboplastin 28.2 (aPTT) Performed By: #### 5902-2, 3173-2 #### [facility] [place], [place] OR NURSING Observed: 09/26/2018 Status: C Source: TAPPEN 1:55 PM [facility]ALTH SYSTEM REPOSITORY CO MCE HC OR Nursing Record Summary Primary Physician: Mariano Moreno MD Finalized Date/Time: 09/28/18 16:00:27 Pt. Name: LOVE PHELAN/Sex: 1945 Male Med Rec #: [id number] Physician: Jose F Nagel MD Financial #: [id number] Pt. Type: I Room/Bed: 23/01 Admit/Disch: 09/21/18 05:02:00 - Institution: [facility] Case Times Entry 1 Patient Times Patient In Room 09/26/18 07:30:00 Patient Out Room 09/26/18 14:12:00 Surgical Times Start Time 09/26/18 08:57:00 Stop Time 09/26/18 13:55:00 Last Modified By: Reyna Rodriguez RN 09/26/18 14:15:41 [facility] Case Attendees Entry 1 Entry 2 Entry 3 Case Attendee Berry AMBRIZ , Mariano Espino MD , Zachary AMBROCIO, kAira Mcghee Role Performed Primary Surgeon Anesthesiologist PA Tobacco Sizer Time In 09/26/18 07:30:00 09/26/18 07:30:00 09/26/18 [...] , Ramona Goff Role Performed First Scrub Construction Executive RN Time In 09/26/18 07:30:00 09/26/18 07:30:00 [...] Reyna Dumont Case, Attendee Other Role Performed sequins spooler Central Sterile Technician Time In 09/26/18 07:30:00 09/26/18 07:30:00 Time Out 09/26/18 14:12:00 09/26/18 14:12:00 Procedure Repair or Replace Valve Repair or Replace Valve Mitral Min Invas(Left) Mitral Min Invas(Left) Attendee Comment [facility] [employer] Relief Reason Last Modified By: Jennifer DHALIWAL , Reyna Goldsmith RN 09/26/18 14:15:42 09/26/18 14:15:42 [facility] General Case Sound Assistant 1 OR CO EH 01 ASA Class 4 Case Wound Class Clean Specialty Cardiac Surgery Case Level CardioThor Complex Diagnosis Preop Diagnosis MR Postop Same As Preop Yes Postop Diagnosis MR This is a down time No record. Last Modified By: Reyna Rodriguez RN 09/26/18 11:03:53 [facility] Surgical Procedures Entry 1 Procedure Repair or Replace Valve Primary Procedure Yes Mitral Min Invasive Modifiers Left Procedure Wound Clean Class Primary Surgeon Berry AMBRIZ , Mariano Surgical Service Cardiac Surgery Anesthesia Type General Procedure Performed MINI LEFT THORACOTAMY, MITRAL VALVE REPLACEMENT Start 09/26/18 08:57:00 Stop 09/26/18 13:55:00 Last Modified By: Sarah Miller RN 09/28/18 16:00:22 General Comments: 09/28/2018 1559 Updated Procedure Performed MINI LEFT THORACOTAMY, MITRAL VALVE REPAIR/REPLACE based on the Operative Report. Sarah Miller BSN, RN, nurse compliance auditor [facility] Catheters, Drains,Tubes Entry 1 Entry 2 Entry 3 Device Type CATH BARD SPENCE TRAY DRAIN CHANNEL ROUND DRAIN CHANNEL ROUND 16FR TEMP SEN W/URINE 24FR [id number] 24FR [id number] METER [id number] Present on Arrival? No No No Location Bladder CHEST CHEST Inserted By Rommel DHALIWAL , Ramona Moreno MD , Mariano Esquivel MD Comments DC'd at End of Case? No No No DC'd By Last Modified By: Jennifer DHALIWAL , Reyna Rodriguez RN , Reyna Goldsmith RN 09/26/18 08:29:54 09/26/18 12:42:01 09/26/18 12:42:01 Entry 4 Device Type DRAIN CHANNEL ROUND 24FR [id number] Present on Arrival? No Location CHEST Inserted By Mariano Moreno MD Comments DC'd at End of Case? No DC'd By Last Modified By: Reyna Rodriguez RN 09/26/18 13:25:00 [facility] Patient Positioning Entry 1 Skin Condition [...] By: Reyna Rodriguez RN 09/26/18 08:31:01 [facility] Skin Prep Entry 1 Hair Removal Method None Skin Prep Prep Agents Betadine with Alcohol Prep Site chin to knees Prep by Ramona Carney RN Procedure Repair or Replace Valve Mitral Min Invas(Left) Last Modified By: Reyna Rodriguez RN 09/26/18 08:31:33 [facility] Fire Risk Assessment Entry 1 Alcohol [...] 02 (less than 30% when able) [facility] Surgical Safety Checklist Entry 1 TIme [...] By: Reyna Rodriguez RN 09/26/18 09:06:31 [facility] Cautery Entry 1 Entry 2 Cautery and Settings Type Monopolar Monopolar Unit ID Number a b Power Setting Coagulation Setting 20-60 20-60 Cut Setting Blend Setting Liter Flow Rate Grounding Pad Location Applied By Last Modified By: Jennifer DHALIWAL , Reyna Goldsmith RN 09/26/18 08:32:14 09/26/18 08:32:14 [facility] Medication Entry 1 Entry 2 Entry 3 Times Med Administered Medication CO HEPARIN 1 000UNITS/ HEMOSTAT ABSORB HEMOSTAT ABSORB 500ML SALINE FLUSH SURGICEL 2X4IN SURGICEL 2X4IN FIBRILLAR 2 FIBRILLAR 1961 Medication Dosage not measured 1 SHEET 1 SHEET Route of flush TOPICAL TOPICAL Administration Meds Administered By Berry AMBRIZ , Mariano Moreno MD , Mariano Moreno MD , Mariano Medication Comment Last Modified By: Jennifer DHALIWAL , Reyna Rodriguez RN , Reyna Goldsmith RN 09/26/18 08:32:30 09/26/18 12:41:43 09/26/18 12:41:43 [facility] Implants Entry 1 Procedure Repair or Replace Valve Implant/Explant Implant Mitral Min Invas(Left) Provided by Surgeon No Implant Identification Description VALVE MITRAL [id number] Home Help Aide [employer] [place] 27MM CINCH MILLER [id number] Catalog Number [id number] Lot Number N/A Serial Number [id number] Implant Site HEART Quantity 1 Expiration Date 03/02/21 No Expiration Date No Tissue Tissue Implanted Yes Material Used to 0.9% SODIUM CHLORIDE Prepare/Process IRRIGATION [id number] Tissue [employer] BRAND USED FOR SALINE RINSE [id number] EXP 07/2021 Processed By: Ramona Carney RN Last Modified By: Reyna Rodriguez RN 09/26/18 10:38:56 [facility] Counts Entry 1 Entry 2 Entry [...] Invas(Left) Last Modified By: Reyna Rodriguez RN, RN , Reyna Goldsmith RN 09/26/18 08:32:50 09/26/18 13:43:04 09/26/18 13:43:04 [facility] Dressing/Packing Entry 1 Dressing Dressing/Packing eye pad/tegaderm to Dressing/Packing groins/central line Type groins. Site biopatch/tegaderm to central line Last Modified By: Reyna Rodriguez RN 09/26/18 09:05:11 [facility] Temperature Regulation Entry 1 Device CO UNIT LEFTY HUGGER Unit ID n/a Site tube warmer Warm blankets, Warm fluids Last Modified By: Reyna Rodriguez RN 09/26/18 09:06:44 [facility] Final Count Entry 1 Sponges Correct Yes Sharps/Miscellaneous Yes Correct Instruments Correct Yes Count Performed with Asha Ivan RN Performing Count Reyna Rodriguez RN Surgeon Notified of Yes Count X-ray Taken No Procedure Repair or Replace Valve Mitral Min Invas(Left) Last Modified By: Reyna Rodriguez RN 09/26/18 13:43:16 [facility] Risk of Impaired Skin Entry [...] Modified By: Reyna Rodriguez RN 09/26/18 09:07:08 [facility] Risk of Infection Entry [...] Modified By: Reyna Rodriguez RN 09/26/18 09:07:11 [facility] Risk of Injury Entry 1 Interventions/Activi [...] Modified By: Reyna Rodriguez RN 09/26/18 09:07:16 [facility] Patient Debriefing Entry 1 Patient Debriefing Verify [...] PROGRESS NOTES Observed: 09/26/2018 Status: F Source: TAPPEN 1:48 PM [facility] REPOSITORY PROGRESS NOTES Op note Dx - Severe MR /CHF Procedure - MVR 27mm Med[employer] [place] tissue BLOOD GAS POCT ABG Collected: 09/26/2018 Status: F Source: TAPPEN LYTES LACTATE 1:07 PM [facility]ALTH SYSTEM (UPLOAD) REPOSITORY TYPE CODE TESTS RESULT OUT OF REFERENCE UNITS RANGE LAB 2019-8(LO 32-48 mmHg INC) pCO2 Arterial POCT Normal 43 LAB 2951-2(LO 136-146 mEq/L INC) Sodium POCT Normal 139 LAB 71689-0(L -2.0-3.0 mMol/L OINC) Low Base Excess POCT -4.9 LAB 2708-6(LO 95.0-99.0 % INC) O2 Saturation Arterial High POCT 99.9 LAB 08067-3(L 1.12-1.32 mMol/L OINC) Calcium Ionized POCT Normal 1.18 LAB 43728-5(L 39-49 % OINC) Low Hematocrit POCT 30 LAB 56640-3(L 70-110 mg/dL OINC) Glucose POCT High 224 LAB 2026-3(LO 22.0-29.0 mMol/L INC) Low Total CO2 Arterial POCT 20.3 LAB 2703-7(LO 83-108 mmHg INC) pO2 Arterial POCT High 233 LAB 70344-9(L 3.5-5.0 mEq/L OINC) Potassium POCT Normal 5.0 LAB 11351-4(L 94.0-99.0 % OINC) O2 Hemoglobin POCT Normal 98.2 LAB 86968-2(L % OINC) Carboxyhemoglobin POCT Normal 1.1 Result Comment: NON SMOKERS <1.5% SMOKERS 1.5 - 9.0% LAB 28039-5(LOINC) FiO2 POCT Normal 100.0 LAB 29531-6(LOINC) Sample Type POCT Normal Arterial LAB 718-7(LOINC) 13.5-1 gm/dL Low 7.5 Hemoglobin POCT 9.7 LAB 22409-4(LOINC) 10.0-2 mEq/L 0.0 Anion Gap POCT Normal 15.0 LAB 45268-6(LOINC) VOL% O2 Content POCT Normal 13.9 LAB 09149-5(LOINC) 21.0-2 mMol/ 8.0 L HCO3 Arterial Normal POCT 21.2 LAB 2614-6(LOINC) 0.2-0. % 6 Methemoglobin Normal POCT 0.5 LAB 64986-6(LOINC) 0.5-1. mMol/ High 6 L Lactate POCT 4.1 LAB 2744-1(LOINC) 7.35-7 Low .45 Blood Gas pH Arterial POCT 7.30 Result Comment: A result of UNABLE indicates the actual value could not be calculated. Treatment ranges and critical values established by Patient Care Services. All follow-up actions were taken by Patient Care Services. LAB 2075-0(LOINC) 98-106 mEq/L Normal Chloride POCT 103 Performed By: #### [id number] #### POINT [facility] CARE BLOOD GAS POCT ABG Collected: 09/26/2018 Status: F Source: [facility]:51 [facility] (UPLOAD) REPOSITORY TYPE CODE TESTS RESULT OUT OF REFERENCE UNITS RANGE LAB 2614-6(LO 0.2-0.6 % INC) Methemoglobin POCT Normal 0.3 LAB 2708-6(LO 95.0-99.0 % INC) O2 Saturation Arterial High POCT 99.8 LAB 62924-8(L 3.5-5.0 mEq/L OINC) Potassium POCT High 5.1 LAB 29034-1(L % OINC) Carboxyhemoglobin POCT Normal 1.1 Result Comment: NON SMOKERS <1.5% SMOKERS 1.5 - 9.0% LAB 85293-4(LOINC) 94.0-99.0 % O2 Normal Hemoglobin POCT 98.5 LAB 09238-1(LOINC) 1.12-1.32 mMol/L Low Calcium Ionized 0.97 POCT LAB 95947-7(LOINC) 21.0-28.0 mMol/L HCO3 Low Arterial POCT 19.2 LAB 2951-2(LOINC) 136-146 mEq/L Normal Sodium POCT 141 LAB 02994-8(LOINC) 0.5-1.6 mMol/L High Lactate POCT 4.3 LAB 19428-5(LOINC) 70-110 mg/dL High Glucose POCT 220 LAB 89856-2(LOINC) 10.0-20.0 mEq/L Anion Normal Gap POCT 19.8 LAB 2703-7(LOINC) 83-108 mmHg pO2 High Arterial POCT 193 LAB 718-7(LOINC) 13.5-17.5 gm/dL Low Hemoglobin POCT 8.4 LAB 6-3(LOINC) 22.0-29.0 mMol/L Total Low CO2 Arterial 18.9 POCT LAB 69716-4(LOINC) 39-49 % Low Hematocrit POCT 26 LAB 2019-8(LOINC) 32-48 mmHg pCO2 Normal Arterial POCT 44 LAB 66795-4(LOINC) -2.0-3.0 mMol/L Base Low Excess POCT -7.6 LAB 94823-4(LOINC) FiO2 Normal POCT 100.0 LAB 2075-0(LOINC) 98-106 mEq/L Normal Chloride POCT 102 LAB 46491-1(LOINC) Normal Sample Type Arterial POCT LAB 2744-1(LOINC) 7.35-7.45 Blood Low Gas pH Arterial 7.25 POCT Result Comment: A result of UNABLE indicates the actual value could not be calculated. Treatment ranges and critical values established by Patient Care Services. All follow-up actions were taken by Patient Care Services. LAB 50134-0(LOINC) VOL% Normal O2 Content POCT 12.1 Performed By: #### [id number] #### POINT OF CARE BLOOD GAS POCT ABG Collected: 09/26/2018 Status: F Source: JED [facility] LACTATE 12:26 PM [facility] (UPLOAD) REPOSITORY TYPE CODE TESTS RESULT OUT OF RANGE REFERENCE UNITS LAB 34122-1(LO 10.0-20.0 mEq/L INC) Normal Anion Gap POCT [...] 136-146 mEq/L Sodium POCT Normal 140 LAB 72935-4(LOINC) 70-110 mg/dL Glucose POCT High 261 LAB 2703-7(LOINC) 83-108 mmHg pO2 Arterial POCT High 143 LAB 60224-2(LOINC) 0.5-1.6 mMol/L Lactate POCT High 3.2 LAB 39652-8(LOINC) Sample Type POCT Normal Arterial LAB 05259-9(LOINC) VOL% O2 Content POCT Normal 12.3 LAB 6-3(LOINC) 22.0-29.0 mMol/L Total CO2 Arterial Normal POCT 22.7 LAB 14065-5(LOINC) 1.12-1.32 mMol/L Calcium Ionized POCT Low 1.05 LAB 2708-6(LOINC) 95.0-99.0 % O2 Saturation High Arterial POCT 99.3 LAB 2075-0(LOINC) 98-106 mEq/L Chloride POCT Normal 102 LAB 11561-2(LOINC) FiO2 POCT Normal 100.0 LAB 16930-3(LOINC) 94.0-99.0 % O2 Hemoglobin POCT Normal 97.6 LAB 2019-8(LOINC) 32-48 mmHg pCO2 Arterial POCT Normal 42 LAB 718-7(LOINC) 13.5-17.5 gm/dL Hemoglobin POCT Low 8.7 LAB 64401-1(LOINC) 39-49 % Hematocrit POCT Low 27 LAB 03366-1(LOINC) 21.0-28.0 mMol/L HCO3 Arterial POCT Normal 23.8 LAB 70979-3(LOINC) % Carboxyhemoglobin Normal POCT 1.2 Result Comment: NON SMOKERS <1.5% SMOKERS 1.5 - 9.0% LAB 57950-0(LOINC) -2.0-3.0 mMol/L Normal Base Excess POCT -1.6 LAB 36835-7(LOINC) 3.5-5.0 mEq/L Normal Potassium POCT 4.9 Performed By: #### [id number] #### POINT OF CARE BLOOD GAS POCT Collected: 09/26/2018 Status: F Source: TAPPEN ELECTROLYTES ARTERIAL 11:41 AM [facility] SYSTEM ([facility] REPOSITORY TYPE CODE TESTS RESULT OUT OF REFERENCE UNITS RANGE LAB 57152-4(L OINC) FiO2 POCT Normal 100.0 LAB 31692-5(L OINC) Sample Type POCT Normal Arterial LAB 2075-0(LO 98-106 mEq/L INC) Chloride POCT Normal 99 LAB 28673-9(L % OINC) Carboxyhemoglobin POCT Normal 0.8 Result Comment: NON SMOKERS <1.5% SMOKERS 1.5 - 9.0% LAB 2019-8(LOINC) 32-48 mmHg pCO2 Arterial Normal POCT 36 LAB 17856-2(LOINC) 3.5-5.0 mEq/L Potassium POCT High 6.1 LAB 07959-8(LOINC) 94.0-99.0 % O2 Hemoglobin Normal POCT 98.6 LAB 29321-0(LOINC) 1.12-1.32 mMol/L Calcium Ionized Normal POCT 1.18 LAB 2614-6(LOINC) 0.2-0.6 % Methemoglobin High POCT 0.8 LAB 56930-6(LOINC) 21.0-28.0 mMol/L HCO3 Arterial Normal POCT 24.6 LAB 00863-9(LOINC) VOL% O2 Content POCT Normal 13.0 LAB 2951-2(LOINC) 136-146 mEq/L Sodium POCT Normal 137 LAB 43230-6(LOINC) 70-110 mg/dL Glucose POCT High 320 LAB 718-7(LOINC) 13.5-17.5 gm/dL Low Hemoglobin POCT 8.6 LAB 60586-8(LOINC) 10.0-20.0 mEq/L Anion Gap POCT Normal 13.3 [...] mmHg High pO2 Arterial POCT 371 LAB 67708-7(LOINC) 39-49 % Low Hematocrit POCT 27 LAB 2708-6(LOINC) 95.0-99.0 % High O2 Saturation Arterial POCT 100.2 LAB 86204-3(LOINC) -2.0-3.0 mMol/L Base Normal Excess POCT 0.7 Performed By: #### :[id number] #### POINT OF CARE BLOOD GAS POCT Collected: 09/26/2018 Status: F Source: TAPPEN ELECTROLYTES ARTERIAL 11:30 AM [facility] SYSTEM (UPLOADED) REPOSITORY TYPE CODE TESTS RESULT OUT OF REFERENCE UNITS RANGE LAB 2019-8(LO 32-48 mmHg INC) pCO2 Arterial POCT Normal 35 LAB 32634-6(L -2.0-3.0 mMol/L OINC) Low Base Excess POCT -2.2 LAB 02885-4(L % OINC) Carboxyhemoglobin POCT Normal 0.8 Result Comment: NON SMOKERS <1.5% SMOKERS 1.5 - 9.0% LAB 55664-7(LOINC) 10.0-20.0 mEq/L Normal Anion Gap POCT 13.5 LAB 2744-1(LOINC) 7.35-7.45 Normal Blood Gas pH Arterial POCT 7.41 Result Comment: A result of UNABLE indicates the actual value could not be calculated. Treatment ranges and critical values established by Patient Care Services. All follow-up actions were taken by Patient Care Services. LAB 60992-4(LOINC) VOL% O2 Content Normal POCT 13.3 LAB 90927-3(LOINC) 3.5-5 mEq/L .0 Potassium POCT High 6.7 LAB 16822-5(LOINC) 94.0- % 99.0 O2 Hemoglobin Normal POCT 98.6 LAB 58727-6(LOINC) Sample Type Normal POCT Arterial LAB 2708-6(LOINC) 95.0- % 99.0 O2 Saturation High Arterial POCT 100.2 LAB 2951-2(LOINC) 136-1 mEq/L Low 46 Sodium POCT 135 LAB 2614-6(LOINC) 0.2-0 % .6 Methemoglobin High POCT 0.8 LAB 718-7(LOINC) 13.5- gm/dL Low 17.5 Hemoglobin POCT 8.9 LAB 65269-1(INC) 21.0- mMol/L 28.0 HCO3 Arterial Normal POCT 22.1 LAB 95564-4(LOINC) 39-49 % Low Hematocrit POCT 27 LAB 2075-0(LOINC) 98-10 mEq/L 6 Chloride POCT Normal 99 LAB 2703-7(LOINC) 83-10 mmHg 8 pO2 Arterial High POCT 365 LAB 2025-3(INC) 22.0- mMol/L Low 29.0 Total CO2 Arterial POCT 20.9 LAB 62042-7([facility]) 70-11 mg/dL 0 Glucose POCT High 334 LAB 37939-2([facility]) 1.12- mMol/L Low 1.32 Calcium Ionized POCT 1.00 LAB 36855-4(INC) FiO2 POCT Normal 100.0 Performed By: #### [id number] #### POINT OF CARE BLOOD GAS POCT ABG Collected: 09/26/2018 Status: F Source: TAPPEN HEMANT LACTATE 11:15 AM [facility] (UPLOAD) REPOSITORY TYPE CODE TESTS RESULT OUT OF REFERENCE UNITS RANGE LAB 2703-7(LO 83-108 mmHg INC) pO2 Arterial POCT High 375 LAB 83230-8(L 10.0-20.0 mEq/L OINC) Anion Gap POCT Normal 11.8 LAB 58682-4(L VOL% OINC) O2 Content POCT Normal 13.3 LAB 2951-2(LO 136-146 mEq/L INC) Sodium POCT Normal 138 LAB 2614-6(LO 0.2-0.6 % INC) Methemoglobin POCT High 0.7 LAB 75645-6(L OINC) FiO2 POCT Normal 85.0 LAB 2019-8(LO 32-48 mmHg INC) pCO2 Arterial POCT Normal 35 LAB 58396-6(L % OINC) Carboxyhemoglobin POCT Normal 1.1 Result Comment: NON SMOKERS <1.5% SMOKERS 1.5 - 9.0% LAB 75851-2(LOINC) 70-110 mg/dL High Glucose POCT 304 LAB 2708-6(LOINC) 95.0-99.0 % O2 High Saturation 100.0 Arterial POCT LAB 2025-3(LOINC) 22.0-29.0 mMol/L Total Normal CO2 Arterial 24.9 POCT LAB 77072-8(LOINC) Normal Sample Type Arterial POCT LAB 2075-0(LOINC) 98-106 mEq/L Normal Chloride POCT 100 LAB 2744-1(LOINC) 7.35-7.45 Blood High Gas pH Arterial 7.49 POCT Result Comment: A result of UNABLE indicates the actual value could not be calculated. Treatment ranges and critical values established by Patient Care Services. All follow-up actions were taken by Patient Care Services. LAB 91506-6(LOINC) 21.0-28.0 mMol/L HCO3 Normal Arterial POCT 26.6 LAB 91578-6(LOINC) -2.0-3.0 mMol/L Base High Excess POCT 3.2 LAB 81677-2(LOINC) 0.5-1.6 mMol/L High Lactate POCT 2.7 LAB 75697-4(LOINC) 94.0-99.0 % O2 Normal Hemoglobin POCT 98.5 LAB 54355-6(LOINC) 39-49 % Low Hematocrit POCT 27 LAB 06071-0(LOINC) 1.12-1.32 mMol/L Low Calcium Ionized POCT 1.02 LAB 77703-0(LOINC) 3.5-5.0 mEq/L High Potassium POCT 7.1 LAB 718-7(LOINC) 13.5-17.5 gm/dL Low Hemoglobin POCT 8.9 Performed By: #### [id number] #### POINT OF CARE BLOOD GAS POCT ABG Collected: 09/26/2018 Status: F Source: TAPPEN HEMANT LACTATE 11:10 AM [facility] SYSTEM (UPLOAD) REPOSITORY TYPE CODE TESTS RESULT OUT OF RANGE REFERENCE UNITS LAB 2075-0(HANY 98-106 mEq/L NC) Chloride Normal POCT 100 LAB 82194-3(LO 70-110 mg/dL INC) High Glucose POCT 300 LAB 55157-5(LO 0.5-1.6 mMol/L INC) High Lactate POCT 2.8 LAB 2019-8(HANY 32-48 mmHg NC) Low pCO2 Arterial POCT 31 LAB 17724-6(LO 10.0-20.0 mEq/L INC) Anion Normal Gap POCT 12.3 LAB 86964-2(LO 3.5-5.0 mEq/L INC) High Potassium POCT 7.1 LAB 35299-0(LO -2.0-3.0 mMol/L INC) Low Base Excess POCT -3.8 LAB 62902-8(LO 39-49 % INC) Low Hematocrit POCT 28 LAB 93250-5(LO INC) FiO2 Normal POCT 100.0 LAB 2951-2(HANY 136-146 mEq/L NC) Low Sodium POCT 133 LAB 64371-9(LO VOL% INC) O2 Normal Content POCT 13.7 LAB 2744-1(HANY 7.35-7.45 NC) Blood Normal Gas pH Arterial 7.42 POCT Result Comment: A result of UNABLE indicates the actual value could not be calculated. Treatment ranges and critical values established by Patient Care Services. All follow-up actions were taken by Patient Care Services. LAB 77553-6(LOINC) 1.12-1.32 mMol/L Calcium Ionized POCT Normal 1.15 LAB 79935-1(LOINC) 94.0-99.0 % O2 Hemoglobin POCT Normal 98.8 LAB 2614-6(LOINC) 0.2-0.6 % Methemoglobin POCT High 0.7 LAB 2026-3(LOINC) 22.0-29.0 mMol/L Total CO2 Arterial Low POCT 19.0 LAB 2708-6(LOINC) 95.0-99.0 % O2 Saturation High Arterial POCT 100.2 LAB 718-7(LOINC) 13.5-17.5 gm/dL Hemoglobin POCT Low 9.1 LAB 85849-7(LOINC) 21.0-28.0 mMol/L HCO3 Arterial POCT Low 20.1 LAB 30046-0(LOINC) Sample Type POCT Normal Arterial LAB 85470-1(LOINC) % Carboxyhemoglobin Normal POCT 0.8 Result Comment: NON SMOKERS <1.5% SMOKERS 1.5 - 9.0% LAB 2703-7(LOINC) 83-108 mmHg High pO2 Arterial POCT 395 Performed By: #### [id number] #### POINT OF CARE BLOOD GAS POCT Collected: 09/26/2018 Status: F Source: TAPPEN ELECTROLYTES ARTERIAL 10:46 AM [facility]ALTH SYSTEM (UPLOADED) REPOSITORY TYPE CODE TESTS RESULT OUT OF RANGE REFERENCE UNITS LAB 2703-7(HANY 83-108 mmHg NC) High pO2 Arterial POCT 470 LAB 2951-2(HANY 136-146 mEq/L NC) Low Sodium POCT 135 LAB 42900-2(LO 10.0-20.0 mEq/L INC) Anion Normal Gap POCT 11.4 LAB 66568-8(LO 39-49 % INC) Low Hematocrit POCT 27 LAB 87078-0(LO 94.0-99.0 % INC) High O2 Hemoglobin POCT 99.1 LAB 2744-1(HANY 7.35-7.45 NC) Blood Normal Gas pH Arterial 7.45 POCT Result Comment: A result of UNABLE indicates the actual value could not be calculated. Treatment ranges and critical values established by Patient Care Services. All follow-up actions were taken by Patient Care Services. LAB 2019-8(LOINC) 32-48 mmHg pCO2 Arterial POCT Low 31 LAB 19380-8(LOINC) FiO2 POCT Normal 100.0 LAB 56900-3(LOINC) VOL% O2 Content POCT Normal 13.5 LAB 6-3(LOINC) 22.0-29.0 mMol/L Total CO2 Arterial Low POCT 20.4 LAB 2708-6(LOINC) 95.0-99.0 % O2 Saturation High Arterial POCT 100.4 LAB 2614-6(LOINC) 0.2-0.6 % Methemoglobin POCT Normal 0.5 LAB 2075-0(LOINC) 98-106 mEq/L Chloride POCT Normal 102 LAB 85963-5(LOINC) 70-110 mg/dL Glucose POCT High 264 LAB 88079-4(LOINC) Sample Type POCT Normal Arterial LAB 37840-6(LOINC) 21.0-28.0 mMol/L HCO3 Arterial POCT Normal 21.6 LAB 96734-3(LOINC) -2.0-3.0 mMol/L Base Excess POCT Normal -1.9 LAB 40030-0(LOINC) 3.5-5.0 mEq/L Potassium POCT High 6.7 LAB 00621-4(LOINC) 1.12-1.32 mMol/L Calcium Ionized POCT Low 0.90 LAB 718-7(LOINC) 13.5-17.5 gm/dL Hemoglobin POCT Low 8.7 LAB 77549-0(LOINC) % Carboxyhemoglobin Normal POCT 0.8 Result Comment: NON SMOKERS <1.5% SMOKERS 1.5 - 9.0% Performed By: #### [id number] #### POINT OF CARE PREOP NURSING Observed: 09/26/2018 Status: F Source: [facility] 10:30 AM [facility] REPOSIT[facility] PreOp Nursing Record Summary Primary Physician: Mariano Moreno MD Finalized Date/Time: 09/26/18 08:24:50 Pt. Name: LOVE PHELAN Erinn /Sex: 1945 Male Med Rec #: [id number] Physician: Jose F Nagel MD Financial #: [id number] Pt. Type: I Room/Bed: / Admit/Disch: 09/21/18 05:02:00 - Institution: [facility] PreOp Case Times Entry 1 PreOp Case Times In Room Time 09/26/18 05:37:00 Out Room Time 09/26/18 07:29:00 Last Modified By: Reyna Rodriguez RN 09/26/18 08:24:44 [facility] PreOp Case Attendees Entry 1 Case Attendee Anat Bueno RN Role Performed RN Last Modified By: Anat Bueno RN 09/26/18 05:38:13 Finalized By: Reyna Rodriguez RN Document Signatures Signed By: Reyna Rodriguez RN 09/26/18 08:24 BLOOD GAS POCT Collected: 09/26/2018 Status: F Source: [facility] ELECTROLYTES ARTERIAL 10:25 AM [facility] (UPLOADED) [...] O2 Saturation High Arterial POCT 100.4 LAB 55874-3(LOINC) 3.5-5.0 mEq/L Potassium POCT High 6.3 LAB 04474-9(LOINC) 94.0-99.0 % O2 Hemoglobin POCT Normal 98.7 LAB 13768-7(LOINC) 1.12-1.32 mMol/L Calcium Ionized POCT Low 0.93 LAB 41901-9(LOINC) 21.0-28.0 mMol/L HCO3 Arterial POCT Normal 22.6 LAB 38058-2(LOINC) -2.0-3.0 mMol/L Base Excess POCT Normal -1.5 LAB 57575-5(LOINC) FiO2 POCT Normal 100.0 LAB 74842-0(INC) 70-110 mg/dL Glucose POCT High 258 LAB 2951-2(INC) 136-146 mEq/L Sodium POCT Normal 136 LAB 2703-7(LOINC) 83-108 mmHg pO2 Arterial POCT High 520 LAB 06989-1(INC) VOL% O2 Content POCT Normal 13.2 LAB 718-7(INC) 13.5-17.5 gm/dL Hemoglobin POCT Low 8.5 LAB 2614-6(LOINC) 0.2-0.6 % Methemoglobin POCT High 0.8 LAB 2019-8(LOINC) 32-48 mmHg pCO2 Arterial POCT Normal 35 LAB 69974-4(LOINC) 39-49 % Hematocrit POCT Low 26 LAB 60405-3(LOINC) 10.0-20.0 mEq/L Anion Gap POCT Normal 11.1 LAB 6-3(LOINC) 22.0-29.0 mMol/L Total CO2 Arterial Low POCT 21.5 LAB 38998-8([facility]) Sample Type POCT Normal Arterial LAB 2075-0(LOINC) 98-106 mEq/L Chloride POCT Normal 102 LAB 92268-5(LOINC) % Carboxyhemoglobin Normal POCT 0.9 Result Comment: NON SMOKERS <1.5% SMOKERS 1.5 - 9.0% Performed By: #### CD:[id number] #### POINT OF CARE BLOOD GAS POCT ABG Collected: 09/26/2018 Status: F Source: [facility] LACTATE 10:02 AM [facility] (U[facility]OAD) REPOSITORY TYPE CODE TESTS RESULT OUT OF REFERENCE UNITS RANGE LAB 98323-9(L 10.0-20.0 mEq/L OINC) Anion Gap POCT Normal 11.2 LAB 19533-9(L 21.0-28.0 mMol/L OINC) Low HCO3 Arterial POCT 20.6 LAB 44079-2(L -2.0-3.0 mMol/L OINC) Low Base Excess POCT -4.4 LAB 06191-7(L % OINC) Carboxyhemoglobin POCT Normal 0.9 Result Comment: NON SMOKERS <1.5% SMOKERS 1.5 - 9.0% LAB 31584-8(LOINC) 70-110 mg/dL Glucose High POCT 236 LAB 2703-7(LOINC) 83-108 mmHg pO2 High Arterial POCT 490 LAB 43668-2(LOINC) 0.5-1.6 mMol/L Lactate Normal POCT 1.1 LAB 718-7(LOINC) 13.5-17.5 gm/dL Low Hemoglobin POCT 8.8 LAB 2075-0(LOINC) 98-106 mEq/L Chloride Normal POCT 104 LAB 2018-8(LOINC) 32-48 mmHg pCO2 Normal Arterial POCT 37 LAB 91713-9(LOINC) FiO2 Normal POCT 100.0 LAB 46043-7(LOINC) 39-49 % Low Hematocrit POCT 27 LAB 6-3(LOINC) 22.0-29.0 mMol/L Low Total CO2 Arterial POCT 19.7 LAB 31659-2(LOINC) 3.5-5.0 mEq/L High Potassium POCT 5.2 LAB 2744-1(LOINC) 7.35-7.45 Blood Normal Gas pH Arterial POCT 7.36 Result Comment: A result of UNABLE indicates the actual value could not be calculated. Treatment ranges and critical values established by Patient Care Services. All follow-up actions were taken by Patient Care Services. LAB 01991-5(LOINC) VOL% O2 Content Normal POCT 13.6 LAB 2614-6(LOINC) 0.2-0 % .6 Methemoglobin High POCT 1.0 LAB 28413-3(LOINC) Sample Type Normal POCT Arterial LAB 2951-2(LOINC) 136-1 mEq/L 46 Sodium POCT Normal 136 LAB 56813-5(LOINC) 1.12- mMol/L Low 1.32 Calcium Ionized POCT 0.98 LAB 2708-6(LOINC) 95.0- % 99.0 O2 Saturation High Arterial POCT 100.3 LAB 94332-8(LOINC) 94.0- % 99.0 O2 Hemoglobin Normal POCT 98.3 Performed By: #### 90055-1d9 #### POINT OF CARE BLOOD GAS POCT ABG Collected: 09/26/2018 Status: F Source: [facility] LACTATE 9:21 AM [facility] (UPLOAD) REPOSITORY TYPE CODE TESTS RESULT OUT OF REFERENCE UNITS RANGE LAB 2019-8(LO 32-48 mmHg INC) pCO2 Arterial POCT Normal 41 LAB 2703-7(LO 83-108 mmHg INC) pO2 Arterial POCT High 211 LAB 52922-2(L 21.0-28.0 mMol/L OINC) HCO3 Arterial POCT Normal 22.1 LAB 24036-6(L 3.5-5.0 mEq/L OINC) Potassium POCT Normal 4.9 LAB 54040-8(L 94.0-99.0 % OINC) O2 Hemoglobin POCT Normal 97.7 LAB 73195-9(L 39-49 % OINC) Hematocrit POCT Low 27 LAB 2026-3(LO 22.0-29.0 mMol/L INC) Total CO2 Arterial Low POCT 21.1 LAB 2708-6(LO 95.0-99.0 % INC) O2 Saturation Arterial High POCT 99.7 LAB 12710-6(L 70-110 mg/dL OINC) Glucose POCT High 210 LAB 84032-9(L OINC) Sample Type POCT Normal Arterial LAB 2075-0(LO 98-106 mEq/L INC) Chloride POCT Normal 105 LAB 02258-2(L % OINC) Carboxyhemoglobin POCT Normal 1.0 Result Comment: NON SMOKERS <1.5% SMOKERS 1.5 - 9.0% LAB 2744-1(LOINC) 7.35-7.45 Blood Low Gas pH Arterial POCT 7.34 Result Comment: A result of UNABLE indicates the actual value could not be calculated. Treatment ranges and critical values established by Patient Care Services. All follow-up actions were taken by Patient Care Services. LAB 67865-8(LOINC) VOL% O2 Content POCT Normal 12.8 LAB 77205-4(LOINC) 1.12-1 mMol/L Low .32 Calcium Ionized POCT 1.04 LAB 2951-2(LOINC) 136-14 mEq/L 6 Sodium POCT Normal 138 LAB 65002-8(LOINC) 0.5-1. mMol/L 6 Lactate POCT Normal 0.6 LAB 21243-9(LOINC) -2.0-3 mMol/L Low .0 Base Excess POCT -3.4 LAB 52010-8(LOINC) FiO2 POCT Normal 100.0 LAB 2614-6(LOINC) 0.2-0. % High 6 Methemoglobin POCT 0.9 LAB 718-7(LOINC) 13.5-1 gm/dL Low 7.5 Hemoglobin POCT 8.9 LAB 55222-6(LOINC) 10.0-2 mEq/L 0.0 Anion Gap POCT Normal 11.1 Performed By: #### 46814-1h4 #### POINT OF CARE BLOOD GAS POCT ABG Collected: 09/26/2018 Status: F Source: [facility] LACTATE 7:49 [facility] (UPLOAD) REPOSITORY TYPE CODE TESTS RESULT OUT OF RANGE REFERENCE UNITS LAB 2019-8(HANY 32-48 mmHg NC) pCO2 Normal Arterial POCT 41 LAB 718-7(LOIN 13.5-17.5 gm/dL C) Low Hemoglobin POCT 10.5 LAB 84073-5(LO VOL% INC) O2 Normal Content POCT 14.0 LAB 48203-6(LO 0.5-1.6 mMol/L INC) Lactate Normal POCT 0.7 LAB 2744-1(HANY 7.35-7.45 NC) Blood Normal Gas pH Arterial 7.36 POCT Result Comment: A result of UNABLE indicates the actual value could not be calculated. Treatment ranges and critical values established by Patient Care Services. All follow-up actions were taken by Patient Care Services. LAB 2075-0(LOINC) 98-106 mEq/L Chloride POCT Normal 106 LAB 87057-5(LOINC) 39-49 % Hematocrit POCT Low 32 LAB 70343-4(LOINC) FiO2 POCT Normal 21.0 LAB 2708-6(LOINC) 95.0-99.0 % O2 Saturation Low Arterial POCT 94.9 LAB 35432-8(LOINC) 3.5-5.0 mEq/L Potassium POCT Normal 4.4 LAB 2614-6(LOINC) 0.2-0.6 % Methemoglobin POCT Normal 0.4 LAB 94272-5(LOINC) Sample Type POCT Normal Arterial LAB 2951-2(LOINC) 136-146 mEq/L Sodium POCT Normal 139 LAB 12220-8(LOINC) 21.0-28.0 mMol/L HCO3 Arterial POCT Normal 22.9 LAB 99118-6(LOINC) 94.0-99.0 % O2 Hemoglobin POCT Low 93.6 LAB 51437-8(LOINC) 1.12-1.32 mMol/L Calcium Ionized POCT Normal 1.14 LAB 36992-9(LOINC) -2.0-3.0 mMol/L Base Excess POCT Low -2.5 LAB 2703-7(LOINC) 83-108 mmHg pO2 Arterial POCT Low 75 LAB 78968-6(LOINC) % Carboxyhemoglobin Normal POCT 0.9 Result Comment: NON SMOKERS <1.5% SMOKERS 1.5 - 9.0% LAB 71921-0(LOINC) 70-110 mg/dL High Glucose POCT 207 LAB 28245-2(LOINC) 10.0-20.0 mEq/L Normal Anion Gap POCT 10.5 LAB 2026-3(LOINC) 22.0-29.0 mMol/L Low Total CO2 Arterial POCT 21.5 Performed By: #### 50535-5l4 #### POINT OF CARE ANESTHESIA PREOPERATIVE Observed: 09/26/2018 Status: F Source: [facility] ASSESSMENT 7:15 AM [facility] REPOSITORY Patient: [...] Intubation. Monitoring/Anesthesia Considerations: Arterial Line, Central Line, [place]-Yajaira Catheter, Transesophageal echocardiography, One lung ventilation, Post-operative [...] RESULT OUT OF REFERENCE UNITS RANGE LAB 41680-0(LO 0.0-7.0 % INC) Normal Eosinophil 3.3 LAB 718-7(LOIN 13.5-17.5 gm/dL C) Low Hemoglobin 10.7 LAB 50338-8(LO 11.0-14.8 % INC) RDW Normal 14.1 LAB 33756-7(LO 0.0-12.0 % INC) Normal Monocyte 10.4 LAB 742-7(LOIN 0.00-0.90 thou/mcL C) Normal Monocyte 0.70 Absolute LAB 66150-7(LO 4.30-5.70 million/mcL INC) Low Red Blood Cell 3.81 Count LAB 60360-4(LO 22.0-44.0 % INC) Low Lymphocyte 18.1 LAB 731-0(LOIN 1.00-4.80 thou/mcL C) Normal Lymphocyte 1.20 Absolute LAB 61828-1(LO 32.0-36.0 gm/dL INC) MCHC Normal 33.6 LAB 27622-2(LO 4.6-10.2 thou/mcL INC) WBC Normal Count 6.8 LAB 62369-9(LO 40.0-70.0 % INC) Normal Neutrophil 67.5 LAB 05100-2(LO 27.0-34.0 Picograms INC) MCH Normal 28.0 LAB 751-8(LOIN 1.80-7.70 thou/mcL C) Normal Neutrophil 4.60 Absolute LAB 704-7(LOIN 0.00-0.20 thou/mcL C) Normal Basophil 0.10 Absolute LAB 28770-8(LO 80.0-97.0 FL INC) MCV Normal 83.4 LAB 10510-5(LO 6.2-12.1 FL INC) MPV Normal 9.1 LAB 69246-8(LO 0.0-2.0 % INC) Normal Basophil 0.7 LAB 711-2(LOIN 0.00-0.70 thou/mcL C) Normal Eosinophil 0.20 Absolute LAB 77389-2(LO 39.0-49.0 % INC) Low Hematocrit 31.7 LAB 51026-7(LO 142-424 thou/mcL INC) Normal Platelet Count 157 Performed By: #### 79006-2 #### [facility] [address], [place] PROTHROMBIN TIME Collected: 09/26/2018 Status: F Source: [facility] 3:52 AM [facility] REPOSITORY TYPE CODE TESTS RESULT OUT OF RANGE REFERENCE UNITS LAB 98194-5(HANY NC) Normal INR 1.29 Result Comment: The recommended therapeutic INR range for most cardiac indications is 2.0-3.0. For high intensity therapy(ie.mechanical heart valves), the recommended range is 2.5-3.5. LAB 5902-2(LOINC) 9.3-12.4 Sec Prothrombin High Time (PT) 14.9 Performed By: #### 5902-2, 3173-2 #### [facility] [address], [place] PARTIAL THROMBOPLASTIN Collected: 09/26/2018 Status: F Source: [facility] TIME (APTT) 3:52 AM [facility] REPOSITORY TYPE CODE TESTS RESULT OUT OF REFERENCE UNITS RANGE LAB 11133-8(LO 23.6-35.3 Sec INC) Partial Normal Thromboplastin 31.9 (aPTT) Performed By: #### 5902-2, 3173-2 #### [facility] [address], [place] MAGNESIUM LEVEL Collected: 09/26/2018 Status: F Source: TAPPEN 3:52 AM [facility] REPOSITORY TYPE CODE TESTS RESULT OUT OF RANGE REFERENCE UNITS LAB 44345-6(LO 1.8-2.5 mg/dL INC) Normal Magnesium Level 2.1 Performed By: #### 67945-0, 46801-6 #### [facility] [address], [place] COMPREHENSIVE METABOLIC Collected: 09/26/2018 Status: F Source: [facility] PANEL 3:52 AM [facility] REPOSITORY TYPE CODE TESTS RESULT OUT OF RANGE REFERENCE UNITS LAB 80566-8(LO 8-20 mg/dL INC) High BUN 54 LAB 1920-8(HANY 15-41 Units/L NC) AST/SGOT Normal 29 LAB 66446-5(LO 6.0-18.0 mMol/L INC) Anion Gap Normal 8.0 LAB 2028-9(HANY 22-32 mMol/L NC) Carbon Normal Dioxide Level 25 LAB 6768-6(HANY 32-91 Units/L NC) Alkaline Normal Phosphatase 69 LAB 2951-2(HANY 136-145 mMol/L NC) Sodium Normal Level 138 LAB 2075-0(HANY 98-107 mMol/L NC) Chloride Normal Level 105 LAB 1742-6(HANY 14-63 Units/L NC) ALT/SGPT Normal 35 LAB 1751-7(HANY 3.5-4.8 gm/dL NC) Low Albumin Level 3.3 LAB 60827-3(LO 8.9-10.3 mg/dL INC) Low Calcium Total 8.5 LAB 29671-7(LO 70-110 mg/dL INC) Glucose Normal Level 75 LAB 2885-2(HANY 6.1-7.9 gm/dL NC) Protein Normal 6.8 LAB 2160-0(HANY 0.60-1.30 mg/dL NC) High Creatinine 1.46 LAB 1975-2(HANY 0.3-1.2 mg/dL NC) Bilirubin Normal Total 0.6 LAB 2823-3(HANY 3.6-5.1 mMol/L NC) Potassium Normal Level 3.7 Performed By: #### 93139-1, 01618-4 #### [facility] [address], [place] GLUCOSE POCT Collected: 09/26/2018 Status: F Source: [facility] (UPLOADED) 3:24 AM [facility] REPOSITORY TYPE [...] 09/26/2018 Status: F Source: [facility] (UPLOADED) 2:28 AM [facility] REPOSITORY TYPE [...] OPERATIVE/PROCEDURE REPORT Observed: 09/26/2018 Status: F Source: [facility] 12:00 AM [facility] [employer] REPOSITORY DICTATED BY: MARIANO MORENO MD SERVICE [...] etc. LOVE PHELAN Birthdate: 1945 D/09/26/2018 13:58:52 T09/26/2018 19:00:01 VOICE JOB ID: [id number] Jed Velarde thanks you for the opportunity to care for your patient. DID: [id number] GLUCOSE POCT Collected: 09/25/2018 Status: F Source: [...] REPOSITORY BPOS Performed By: #### 882-1 #### [facility] [address], [place] Observed: 09/25/2018 Status: F Source: [facility] ANTIBODY SCREEN 5:29 PM [facility] SYSTEM INTERPRETATION REPOSITORY NEGATIVE Performed By: #### 84826-1 #### [facility] [address], [place] GLUCOSE POCT Collected: 09/25/2018 Status: F [...] PROGRESS NOTES Observed: 09/25/2018 Status: C Source: [facility] 3:41 PM [facility] REPOSITORY Patient: LOVE PHELAN MRN: [id number] Age: 73 years Sex: Male : 1945 Associated Diagnoses: None Author: Akira Oconnor Supervising Physician Comments Documentation By: Nurse Practitioner. Comments HPI: Mr. Aleman is a 73 year old male with past medical history significant for chronic ischemic heart disease s/p multivessel stenting in 2009, HTN, HLD, T2DM, CKD, and obesity who presented to [facility] on 09/21/18 with c/o shortness of breath. He was in [place] visiting family for the holidays when he [...] valve repair/replacement. Of note, pt lives in [place] and follows with his Incident Response Manager there regularly. He had a routine office [...] (FRESH FROZEN Collected: 09/25/2018 Status: F Source: [facility] PLASMA) ORDER 3:39 PM [facility] REPOSITORY Order Comment: Please hold 2 units of FFP for OR on 09/26 TYPE CODE TESTS RESULT OUT OF RANGE REFERENCE UNITS LAB 1035-5(LOIN C) Normal Fresh NOTNEED Frozen Plasma: PLATELET PRODUCT Collected: 09/25/2018 Status: F Source: [facility] 3:39 PM [facility] REPOSITORY Order Comment: Please hold 1 unit of platelets for OR on 09/26 TYPE CODE TESTS RESULT OUT OF REFERENCE UNITS RANGE LAB 81888-8(LO INC) Platelet Normal Concentrate NOTNEED GLUCOSE POCT [...] back to lisinopril/HCTZ soon. Mehdi Nayak MD [facility] Subjective Feeling OK today. No sob, [...] 07:) Chloride 104 (09/25 05:36) 101 (09/24 07:) CO2 25 (09/25 05:36) 23 (09/24 07:28) Glucose 116 (09/25 05:36) 313 (09/24 07:) Glucose POCT No result BUN 60 (09/25 05:36) 63 (09/24 07:) Creatinine 1.79 (09/25 05:36) 1.53 (09/24 07:) Calcium Total 8.5 (09/25 05:36) 8.9 (09/24 07:) Magnesium 1.9 (09/25 05:36) HEMATOLOGY WBC 6.0 [...] (09/24 07:) MCHC 33.9 (09/25 05:36) 33.5 (11/28 07:28) Neutrophil Ab 3.90 (09/25 05:36) Monocyte [...] NOTES Observed: 09/25/2018 Status: F Source: [facility] 10:10 AM [facility] REPOSITORY Patient: LOVE PHELAN MRN: ([facility])-[id number] Age: 73 years Sex: Male : 1945 Associated Diagnoses: None Author: Cristhian Hong DO Assessment Diagnosis/Impression/Plan: Mr Love Phelan is a 73-year-old male with past medical history to include CAD status post stents, hypertension, hyperlipidemia, insulin-dependent diabetes, newly diagnosed CKD stage III, who prese nts to [facility]/21/[facility] for dyspnea Interval workup notable for [...] regurgitation precipitating respiratory failure, with planned disposition [facility] vs SNF Pending clinical trajectory [...] PO, w/bkfst+din cyanocobalamin: 100 mcg, IM, Month ([id number]) isosorbide mononitrate: 30 mg, PO, Daily oxygen: [...] mcg/ml injectable solution: 1 mL, IM, Month ([id number]), Each, 0 Refill(s) glipiZIDE 10 mg oral [...] 07:) Chloride 104 (09/25 05:36) 101 (09/24 07:) CO2 25 (09/25 05:36) 23 (09/24 07:) Glucose 116 (09/25 05:36) 313 (09/24 07:) Glucose POCT No result BUN 60 (09/25 05:36) 63 (09/24 07:) Creatinine 1.79 (09/25 05:36) 1.53 (09/24 07:) Calcium Total 8.5 (09/25 05:36) 8.9 (09/24 07:) Magnesium 1.9 (09/25 05:36) HEMATOLOGY WBC 6.0 [...] 07:38) Folic Acid Level 18.0 ng/mL (09/24 07:) PTH Intact 54 Picogram/ml (09/24 07:) Vitamin B12 Level 1399 Picogram/ml (09/24 07:) Vitamin D 25-Hydroxy Leve 26.01 ng/mL (09/24 07:) MPV 9.1 FL (09/25 05:36) 9.3 FL [...] 09/25/2018 Status: F Source: [facility] (UPLOADED) 10:01 AM [facility] REPOSITORY TYPE [...] Observed: 09/25/2018 Status: C Source: [facility] 7:48 AM [facility] REPOSITORY Patient: LOVE PHELAN MRN: [id number] Age: 73 years Sex: Male : 1945 Associated Diagnoses: None Author: Pedro Ibarra [facility] Cardiology Progress Note Subjective: Patient feeling fine. [...] Moderate left atrial enlargement Small PFO with erbk-ow-otmux shunt. No right to left shunting demonstrated [...] posterior flail -Severe MR -Small PFO with wxie-td-ksciq shunt -Elevated troponin; 0.07. In setting of acute CHF, renal insufficiency of unknown chronicity, and underlying CAD. -Chronic ischemic heart disease; s/p MS and multivessel stenting 2009. He had negative [...] (09/25 06:26) 0 (09/25 06:26) 0 (09/25 06:26) BP 148/70 (09/25 06:26) Minimum Maximum Systolic [...] 07:) Chloride 104 (09/25 05:36) 101 (09/24 07:) CO2 25 (09/25 05:36) 23 (09/24 07:) Glucose 116 (09/25 05:36) 313 (09/24 07:) Glucose POCT No result BUN 60 (09/25 05:36) 63 (09/24 07:) Creatinine 1.79 (09/25 05:36) 1.53 (09/24 07:) Calcium Total 8.5 (09/25 05:36) 8.9 (09/24 07:) Magnesium 1.9 (09/25 05:36) HEMATOLOGY WBC 6.0 (09/25 05:36) 5.6 (09/24 07:) RBC 3.76 (09/25 05:36) 4.16 (09/24 07:) Hb 10.6 (09/25 05:36) 11.6 (09/24 07:) Hematocrit 31.3 (09/25 05:36) 34.8 (09/24 07:) Platelets 147 (09/25 05:36) 146 (09/24 07:) MCV 83.2 (09/25 05:36) 83.5 (09/24 07:) MCH 28.2 (09/25 05:36) 27.9 (09/24 07:28) RDW 14.3 (09/25 05:36) 14.2 (09/24 07:28) [...] 07:38) Folic Acid Level 18.0 ng/mL (09/24 07:) Hemoglobin A1c 9.0 % tl hgb (09/22 05:46) PTH Intact 54 Picogram/ml (09/24 07:) Vitamin B12 Level 1399 Picogram/ml (09/24 07:28) Vitamin D 25-Hydroxy Leve 26.01 ng/mL (09/24 07:) MPV 9.1 FL (09/25 05:36) 9.3 FL [...] mcg = 0.1 mL, IM, Inject, Month ([id number]),, x 30 Day(s), 09/21/18 5:49:00 EST Last [...] DIFFERENTIAL Collected: 09/25/2018 Status: F Source: [facility] 5:36 AM [facility] REPOSITORY TYPE CODE TESTS RESULT OUT OF REFERENCE UNITS RANGE LAB 04741-0(LO 80.0-97.0 FL INC) MCV Normal 83.2 LAB 82099-8(LO 6.2-12.1 FL INC) MPV Normal 9.1 LAB 22466-9(LO 39.0-49.0 % INC) Low Hematocrit 31.3 LAB 711-2(LOIN 0.00-0.70 thou/mcL C) Normal Eosinophil 0.20 Absolute LAB 01804-9(LO 142-424 thou/mcL INC) Normal Platelet Count 147 LAB 46013-4(LO 0.0-12.0 % INC) Normal Monocyte 10.4 LAB 86447-2(LO 11.0-14.8 % INC) RDW Normal 14.3 LAB 718-7(LOIN 13.5-17.5 gm/dL C) Low Hemoglobin 10.6 LAB 76070-7(LO 40.0-70.0 % INC) Normal Neutrophil 64.5 LAB 52158-9(LO 0.0-2.0 % INC) Normal Basophil 0.9 LAB 731-0(LOIN 1.00-4.80 thou/mcL C) Normal Lymphocyte 1.20 Absolute LAB 39215-9(LO 32.0-36.0 gm/dL INC) MCHC Normal 33.9 LAB 65617-2(LO 4.30-5.70 million/mcL INC) Low Red Blood Cell 3.76 Count LAB 742-7(LOIN 0.00-0.90 thou/mcL C) Normal Monocyte 0.60 Absolute LAB 751-8(LOIN 1.80-7.70 thou/mcL C) Normal Neutrophil 3.90 Absolute LAB 62940-3(LO 27.0-34.0 Picograms INC) MCH Normal 28.2 LAB 73251-8(LO 4.6-10.2 thou/mcL INC) WBC Normal Count 6.0 LAB 704-7(LOIN 0.00-0.20 thou/mcL C) Normal Basophil 0.10 Absolute LAB 63600-1(LO 22.0-44.0 % INC) Low Lymphocyte 20.7 LAB 93019-1(LO 0.0-7.0 % INC) Normal Eosinophil 3.5 Performed By: #### 26598-7 #### [facility] [address], [place] GFRAA Collected: 09/25/2018 Status: F Source: TAPPEN 5:36 AM [facility] REPOSITORY TYPE CODE TESTS RESULT OUT OF RANGE REFERENCE UNITS LAB 19373-9(LO mL/min INC) GFR Normal Estimated 45 Result Comment: The MDRD equation has not been validated for those over 70 years, women, patients with serious co-morbid conditions, or with extremes of body size, muscle mass of nutritional status. Performed By: #### 04234-2, 12692-6j6, 29993-7, 32754-2 #### [facility] [address], [place] GFRBB Collected: 09/25/2018 Status: F Source: TAPPEN 5:36 AM [facility] REPOSITORY TYPE CODE TESTS RESULT OUT OF RANGE REFERENCE UNITS LAB 83230-3(LO mL/min INC) GFR Normal Estimated Non 38 Performed By: #### 44873-0, 31611-5t5, 57114-5, 12219-4 #### [facility] [address], [place] MAGNESIUM LEVEL Collected: 09/25/2018 Status: F Source: TAPPEN 5:36 AM [facility] REPOSITORY TYPE CODE TESTS RESULT OUT OF RANGE REFERENCE UNITS LAB 12852-7(LO 1.8-2.5 mg/dL INC) Normal Magnesium Level 1.9 Performed By: #### 22726-3, 71471-3z9, 49937-0, 10511-4 #### [facility] [address], [place] BASIC METABOLIC PANEL Collected: 09/25/2018 Status: F Source: [facility]APPEN 5:36 AM [facility] REPOSITORY TYPE CODE TESTS RESULT OUT OF RANGE REFERENCE UNITS LAB 2160-0(HANY 0.60-1.30 mg/dL NC) High Creatinine 1.79 LAB 2823-3(HANY 3.6-5.1 mMol/L NC) Normal Potassium Level 3.8 LAB 98678-2(LO 70-110 mg/dL INC) High Glucose Level 116 LAB 11901-7(LO 6.0-18.0 mMol/L INC) Anion Normal Gap 8.0 LAB 45655-3(LO 8.9-10.3 mg/dL INC) Low Calcium Total 8.5 LAB 04024-3(LO 8-20 mg/dL INC) High BUN 60 LAB 2951-2(HANY 136-145 mMol/L NC) Sodium Normal Level 137 LAB 2028-9(HANY 22-32 mMol/L NC) Carbon Normal Dioxide Level 25 LAB 2075-0(HANY 98-107 mMol/L NC) Chloride Normal Level 104 Performed By: #### 80398-3, 37927-9e1, 92277-6, 16437-3 #### [facility] [address], [place] GLUCOSE POCT Collected: 09/25/2018 Status: F Source: JED SYD (UPLOADED) 4:48 AM [facility] SYSTEM REPOSITORY TYPE [...] 09/25/2018 Status: F Source: JED [facility] (UPLOADED) 2:40 AM [facility] REPOSITORY TYPE [...] 09/25/2018 Status: F Source: JED SYD (UPLOADED) 1:46 AM [facility] REPOSITORY TYPE [...] POCT Collected: 09/24/2018 Status: F Source: [facility]ED [facility] (UPLOADED) 11:28 PM [facility] SYSTEM REPOSITORY TYPE [...] back to lisinopril/HCTZ soon. Mehdi Nayak MD [facility] Subjective Feeling OK today. Had CT [...] 07:28) 133 (09/23 07:38) Potassium 4.3 (09/24 07:28) 4.1 (09/23 07:38) Chloride 101 (09/24 07:28) 98 (09/23 07:38) CO2 23 (09/24 07:28) 22 (09/23 07:38) Glucose 313 (09/24 07:28) 265 (09/23 07:38) Glucose POCT No result BUN 63 (09/24 07:28) 63 (09/23 07:38) Creatinine 1.53 (09/24 07:28) 1.52 (09/23 07:38) Calcium Total 8.9 (09/24 07:) 8.8 (09/23 07:38) Magnesium No result HEMATOLOGY WBC 5.6 (09/24 07:) 8.9 (09/23 07:38) RBC 4.16 (09/24 07:) 4.39 (09/23 07:38) Hb 11.6 (09/24 07:) 12.3 (09/23 07:38) Hematocrit 34.8 (09/24 07:) 37.2 (09/23 07:38) Platelets 146 (09/24 07:) 170 (09/23 07:38) MCV 83.5 (09/24 07:) 84.6 (09/23 07:38) MCH 27.9 (09/24 07:) 27.9 (09/23 07:38) RDW 14.2 (09/24 07:) 14.4 (09/23 07:38) MCHC 33.5 (09/24 07:) 33.0 (09/23 07:38) Neutrophil Ab No result [...] Cholesterol 54 mg/dL (09/2246) VLDL 44 mg/dL (09/2246) OTHER LABS Anion Gap 12.0 mMol/L (09/24 [...] 09/24/2018 Status: F Source: [facility] (UPLOADED) 1:10 PM [facility] SYSTEM REPOSITORY TYPE [...] PELVIS W Observed: 09/24/2018 Status: F Source: [facility] AND/OR W/O CONTRAST 12:35 PM [facility]ALTH SYSTEM [...] 14:03 Transcribed by: CATERINA 09/24/2018 13:48 Technologist: MAURCIIO SAENZ CT ANG CHEST W AND/OR Observed: 09/24/2018 Status: F Source: [facility] W/O CONTRAST 12:35 PM [facility] SYSTEM REPOSITORY [...] NOTES Observed: 09/24/2018 Status: F Source: [facility] 11:42 AM [facility] REPOSITORY Patient: LOVE PHELAN Age: 73 years Sex: Male : 1945 Associated Diagnoses: None Author: Cristhian Hong DO Assessment Diagnosis/Impression/Plan: Mr Love Phelan is a 73-year-old male with past medical history to include CAD status post stents, hypertension, hyperlipidemia, insulin-dependent diabetes, newly diagnosed CKD stage III, who prese nts to [facility] for dyspnea Interval workup notable for [...] and CTS - noted tentative plans [facility] 11/30/18 -1.6L #CKD3 - 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 [...] regurgitation precipitating respiratory failure, with planned disposition [facility] vs SNF Pending clinical trajectory [...] PO, w/bkfst+din cyanocobalamin: 100 mcg, IM, Month ([id number]) isosorbide mononitrate: 30 mg, PO, Daily oxygen: [...] mcg/ml injectable solution: 1 mL, IM, Month ([id number]), Each, 0 Refill(s) glipiZIDE 10 mg oral [...] lab test) CHEMISTRY Sodium 136 (09/24 07:28) Potassium 4.3 (09/24 07:28) Chloride 101 (09/24 07:28) CO2 23 (09/24 07:28) Glucose 313 (09/24 07:28) Glucose POCT No result BUN 63 (09/24 07:28) Creatinine 1.53 (09/24 07:28) Calcium Total 8.9 (09/24 07:28) Magnesium No result HEMATOLOGY WBC 5.6 (09/24 07:28) RBC 4.16 (09/24 07:28) Hb 11.6 (09/24 07:28) Hematocrit 34.8 (09/24 07:28) Platelets 146 (09/24 07:28) MCV 83.5 (09/24 07:28) MCH 27.9 (09/24 07:28) RDW 14.2 (09/24 07:28) MCHC 33.5 (09/24 07:28) Neutrophil Ab No result Monocyte Ab No [...] ECHO Observed: 09/24/2018 Status: F Source: JED SYD 10:18 AM HEALTH SYSTEM REPOSITORY Transesophageal Echocardiography Report (CLAIRE) Demographics Patient Name TAPAN ALEMAN Date of 1945 E Patient Number [id number] Age 73 year(s) Visit Number [id number] Gender Male Room Number 2E41 Admission Status Inpatient Referring Christi Tang MD [employer]phalt [employer]ater Maco Hardin Physician RDCS Interpreting Tang, Christi Faith MD, MD Provider Physician Procedure Type of Study [...] CLAIRE Performed By: the attending and the rehabilitator Type of Anesthesia: Moderate sedation Procedure Medications [...] or spontaneous echo contrast Small PFO with ioqp-zo-xdyfo shunt on color Doppler. No right to [...] the aorta Interatrial Septal Small PFO with tgmn-st-gbvfe shunt on color Doppler. No right to [...] cm2 Signature PROGRESS NOTES Observed: 09/24/2018 Status: Med Source: [facility] 9:42 AM HEALTH SYSTEM REPOSITORY Patient: LOVE PHELAN Age: 73 years Sex: Male : 1945 Associated Diagnoses: None Author: Ussai BELT BRANDER, Sarah Supervising Physician Comments Documentation By: Nurse Practitioner. Comments HPI: Mr. Aleman is a 73 year old male with past medical history significant for chronic ischemic heart disease s/p multivessel stenting in 2009, HTN, HLD, T2DM, CKD, and obesity who presented to [facility] on 09/21/18 with c/o shortness of breath. He was in [place] visiting family for the holidays when he [...] valve repair/replacement. Of note, pt lives in [place] and follows with his Incident Response Manager there regularly. He had a routine office [...] GLUCOSE POCT Collected: 09/24/2018 Status: F Source: [facility] (UPLOADED) 8:07 AM HEALTH SYSTEM REPOSITORY TYPE CODE TESTS RESULT OUT OF REFERENCE UNITS RANGE LAB 2340-8(LOIN 70-110 mg/dL C) High Glucose 300 POCT-LAB Result Comment: Treatment ranges and critical values established by Patient Care Services. All follow-up actions were taken by Patient Care Services. Performed By: #### 2430-8 #### [facility] POINT OF CARE CBC Collected: 09/24/2018 Status: F Source: [facility] 7:28 AM [facility]ALTH SYSTEM REPOSITORY TYPE CODE TESTS RESULT OUT OF REFERENCE UNITS RANGE LAB 17757-5(LO 6.2-12.1 FL INC) MPV Normal 9.3 LAB 31177-1(LO 32.0-36.0 gm/dL INC) MCHC Normal 33.5 LAB 68221-7(LO 39.0-49.0 % INC) Low Hematocrit 34.8 LAB 25028-8(LO 142-424 thou/mcL INC) Normal Platelet Count 146 LAB 72132-9(LO 27.0-34.0 Picograms INC) MCH Normal 27.9 LAB 11635-3(LO 11.0-14.8 % INC) RDW Normal 14.2 LAB 07174-5(LO 80.0-97.0 FL INC) MCV Normal 83.5 LAB 718-7(LOIN 13.5-17.5 gm/dL C) Low Hemoglobin 11.6 LAB 68233-0(LO 4.6-10.2 thou/mcL INC) WBC Normal Count 5.6 LAB 57933-6(LO 4.30-5.70 million/mcL INC) Low Red Blood Cell 4.16 Count Performed By: #### 95609-2 #### [facility] [address], [place] #### 1988-12 #### [facility] [address] [place], [place] VITAMIN D 25 HYDROXY Collected: 09/24/2018 Status: F Source: [facility] 7:28 AM HEALTH SYSTEM REPOSITORY TYPE CODE TESTS RESULT OUT OF REFERENCE UNITS RANGE LAB 1988-12(LOIN 30.00-100.00 ng/mL C) Low Vitamin D 26.01 25-Hydroxy Level Result Comment: NEW METHOD AND INTERPRETIVE DATA Vitamin D Status Range ------ Deficiency <20 ng/mL(50 nmol/L) Insufficiency 20-30 ng/mL(50-75 nmol/L) Sufficiency 30-100 ng/mL(75-250 nmol/L) Toxicity >100 ng/mL (250 nmol/L) Performed By: #### 00340-0 #### [facility] [address] [place] [address] #### 1988-12 #### [place] [address] [place], [place] RENAL FUNCTION PANEL Collected: 09/24/2018 Status: F Source: [facility] 7:28 [facility]ALTH SYSTEM REPOSITORY TYPE CODE TESTS RESULT OUT OF RANGE REFERENCE UNITS LAB 2160-0(HANY 0.60-1.30 mg/dL NC) High Creatinine 1.53 LAB 1751-7(HANY 3.5-4.8 gm/dL NC) Albumin Normal Level 3.8 LAB 2951-2(HANY 136-145 mMol/L NC) Sodium Normal Level 136 LAB 2075-0(HANY 98-107 mMol/L NC) Chloride Normal Level 101 LAB 44121-7(LO 2.4-4.7 mg/dL INC) Normal Phosphorus Level 4.2 LAB 49665-9(LO 70-110 mg/dL INC) High Glucose Level 313 LAB 2823-3(HANY 3.6-5.1 mMol/L NC) Normal Potassium Level 4.3 LAB 64741-6(LO 8-20 mg/dL INC) High BUN 63 LAB 40726-3(LO 8.9-10.3 mg/dL INC) Calcium Normal Total 8.9 LAB 35586-1(LO 6.0-18.0 mMol/L INC) Anion Normal Gap 12.0 LAB 8-9(HANY 22-32 mMol/L NC) Carbon Normal Dioxide Level 23 Performed By: #### 31051-9, 2284-8, 9 #### [facility] [address], [place] FOLIC ACID LEVEL Collected: 09/24/2018 Status: F Source: [facility] 7:28 AM [facility] SYSTEM REPOSITORY TYPE CODE TESTS RESULT OUT OF RANGE REFERENCE UNITS LAB 2284-8(LOIN >4.0 ng/mL C) Normal Folic 18.0 Acid Level Result Comment: The World Health Organization Technical Consultation on folate and vitamin B12 deficiencies has determined that deficient folate concentrations are considered to be less than 4 ng/mL Previous Folate reference range = greater than 3 ng/ml New Folate reference range = greater than 4 ng/ml Performed By: #### 74226-9, 2284-8, 9 #### [facility] [address], [place] VITAMIN B12 LEVEL Collected: 09/24/2018 Status: F Source: [facility] 7:28 AM [facility] SYSTEM REPOSITORY TYPE CODE TESTS RESULT OUT OF REFERENCE UNITS RANGE LAB 2132-9(LOIN 180-914 Picogram/ml C) High Vitamin B12 1399 Level Performed By: #### 45946-0, 2284-8, 2131- 9 #### [facility] [address], [place] PARATHYROID HORMONE Collected: 09/24/2018 Status: F Source: JED SYD (PTH) INTACT 7:28 AM HEALTH SYSTEM REPOSITORY TYPE CODE TESTS RESULT OUT OF RANGE REFERENCE UNITS LAB 2731-8(LOIN 12-88 Picogram/ml C) Normal PTH Intact 54 Performed By: #### 2731-8 #### [facility] [address] [place], [place] XR CHEST 1 VIEW Observed: 09/24/2018 [...] RESULT OUT OF RANGE REFERENCE UNITS LAB 65762-0(LO INC) Protein Normal / Creatinine 0.9 Ratio Urine Result Comment: Reference Intervals: Normal Proteinuria = <0.1 Mild Proteinuria = 0.1 - 1.0 Moderate Proteinuria = 1.0 - 10.0 Heavy Proteinuria = >10.0 LAB 2161-8(LOINC) mg/dL Normal Creatinine Urine 121.62 LAB 2888-6(LOINC) <11.9 mg/dL High Protein Random Urine 111.2 Performed By: #### 38606-1 #### [facility] [address], [place] GLUCOSE POCT Collected: 09/23/2018 Status: F [...] Echo ordered, cardiology consult and went to [facility] showing patent stents to LCx and LCA [...] elevated 0.07, EKG without ischemic changes, underwent C showing elevated levels LVEDP and HF. 5. [...] (09/23 07:38) 21 (09/22 05:46) Glucose 265 (09/23 07:38) 314 (09/22 05:46) Glucose POCT 311 [...] PO, w/bkfst+din cyanocobalamin: 100 mcg, IM, Month (Z36Nmjn) oxygen: 1 Each, Inhalation, Daily oxygen: 1 [...] mcg/ml injectable solution: 1 mL, IM, Month (I33Ruqf), Each, 0 Refill(s) glipiZIDE 10 mg oral [...] #### 2430-8 #### [facility] POINT OF CARE [employer] Observed: 09/23/2018 Status: F Source: [facility] 12:19 PM HEALTH SYSTEM REPOSITORY EXAMINATION TYPE: [...] 12:22 Transcribed by: CATERINA 09/23/2018 12:21 Technologist: TS CONSULTATION Observed: 09/23/2018 Status: F Source: [facility] 11:47 AM [facility]ALTH SYSTEM REPOSITORY Patient: LOVE PHELAN MRN: ([id number] Age: 73 years Sex: Male : 1945 Associated Diagnoses: None Author: Emerson Solis MD Nephrology Consultation dictated, #[id number]. Thanks, Emerson Solis MD [facility], [facility]. Pager: Office: PROGRESS NOTES Observed: 09/23/2018 Status: F Source: [facility] 9:52 AM [facility]ALTH SYSTEM REPOSITORY Patient: LOVE PHELAN MRN: ([id number] Age: 73 years Sex: Male : 1945 Associated Diagnoses: None Author: Hema DHALIWAL , Opal Savage Heart Failure Education Initiated : Reviewed medications, daily weights, low sodium diet, daily activity levels, signs and symptoms of Heart Failure and when to call physician. Evaluation of LV Function :09/22/2018 LVEF 60-65%, Severe MR Medications :IV lasix, Coreg, Norvasc Referrals :Deferred HFC since patient lives in [facility] Comments :Patient with history of CAD, [...] when to call physician. He lives in [facility] and is here for the . 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 ROLE score for readmission 9. Recommendations :Close OP follow up with Dr. Blanchard Quality Measures Documentation PROGRESS NOTES Observed: 09/23/2018 Status: C Source: [facility] 9:29 AM [facility] SYSTEM REPOSITORY Patient: LOVE PHELAN Age: 73 years Sex: Male : 1945 Associated Diagnoses: None Author: Sarah Bryan CNP Supervising Physician Comments Documentation By: Nurse Practitioner. Comments HPI: Mr. Aleman is a 73 year old male with past medical history significant for chronic ischemic heart disease s/p multivessel stenting in 2009, HTN, HLD, T2DM, CKD, and obesity who presented to [facility] on 09/21/18 with c/o shortness of breath. He was in [place] visiting family for the holidays when he [...] valve repair/replacement. Of note, pt lives in [place] and follows with his Incident Response Manager there regularly. He had a routine office [...] PROGRESS NOTES Observed: 09/23/2018 Status: F Source: [facility] 7:52 AM [facility] SYSTEM REPOSITORY Patient: LOVE PHELAN MRN: [id number] Age: 73 years Sex: Male : 1945 Associated Diagnoses: None Author: Zane AMBRIZ , Milly [facility] Cardiology Progress Note Subjective: diuresed 1.7 liters. [...] underlying CAD. -Chronic ischemic heart disease; s/p MS and multivessel stenting 2009. He had negative [...] that OR is contemplated Candie Degroot MD [facility] 09/23/2018 08:16 Vital Signs (Past 36 Hours) [...] (09/21 15:29) Thyroid Stimulating Hormo 1.36 mcIU/mL (09/2246) B Type Natriuretic Peptid 281 Picogram/ml (09/22 [...] mcg = 0.1 mL, IM, Inject, Month ([id number]),, x 30 Day(s), 09/21/18 5:49:00 EST Last [...] Given CBC Collected: 09/23/2018 Status: F Source: [facility] 7:38 AM [facility] SYSTEM REPOSITORY TYPE CODE TESTS RESULT OUT OF REFERENCE UNITS RANGE LAB 56810-0(LO 11.0-14.8 % INC) RDW Normal 14.4 LAB 69771-2(LO 39.0-49.0 % INC) Low Hematocrit 37.2 LAB 718-7(LOIN 13.5-17.5 gm/dL C) Low Hemoglobin 12.3 LAB 84802-5(LO 6.2-12.1 FL INC) MPV Normal 9.4 LAB 95897-7(LO 32.0-36.0 gm/dL INC) MCHC Normal 33.0 LAB 43540-9(LO 4.30-5.70 million/mcL INC) Red Normal Blood Cell 4.39 Count LAB 15446-2(LO 142-424 thou/mcL INC) Normal Platelet Count 170 LAB 42028-1(LO 27.0-34.0 Picograms INC) MCH Normal 27.9 LAB 56871-3(LO 4.6-10.2 thou/mcL INC) WBC Normal Count 8.9 LAB 28893-3(LO 80.0-97.0 FL INC) MCV Normal 84.6 Performed By: #### 17358-2 #### [facility] [address], [place] BNP (B -TYPE Collected: 09/23/2018 Status: F Source: [facility] NATRIURETIC PEPTIDE) 7:38 AM HEALTH SYSTEM REPOSITORY TYPE CODE TESTS RESULT OUT OF REFERENCE UNITS RANGE LAB 06470-1(LO 0-100 Picogram/m INC) l B Type High Natriuretic 140 Peptide Result Comment: Less than 100 CHF is unlikely Greater than 100 Possible left ventricular And less than 400 dysfunction-unlikely acute decompensation Greater than 400 Suspicious for decompensated heart failure Performed By: #### 62869-4 #### [facility] [address], [place] GFRAA Collected: 09/23/2018 Status: F Source: [facility] 7:38 AM [facility] SYSTEM REPOSITORY TYPE CODE TESTS RESULT OUT OF RANGE REFERENCE UNITS LAB 97940-9(LO mL/min INC) GFR Normal Estimated 55 Result Comment: The MDRD equation has not been validated for those over 70 years, women, patients with serious co-morbid conditions, or with extremes of body size, muscle mass of nutritional status. Performed By: #### 82854-5, 76672-6c0, 07892-0 #### [facility] [address] [place], [place] GFRBB Collected: 09/23/2018 Status: F Source: [facility] 7:38 AM [facility] SYSTEM REPOSITORY TYPE CODE TESTS RESULT OUT OF RANGE REFERENCE UNITS LAB 45011-1(LO mL/min INC) GFR Normal Estimated Non 45 Performed By: #### 59273-3, 10541-0a5, 85154-7 #### [facility] [address] [place], [place] BASIC METABOLIC PANEL Collected: 09/23/2018 Status: F Source: [facility] 7:38 AM [facility] SYSTEM REPOSITORY TYPE CODE TESTS RESULT OUT OF RANGE REFERENCE UNITS LAB 2160-0(HANY 0.60-1.30 mg/dL NC) High Creatinine 1.52 LAB 51405-4(LO 8-20 mg/dL INC) High BUN 63 LAB 2075-0(HANY 98-107 mMol/L NC) Chloride Normal Level 98 LAB 2951-2(HANY 136-145 mMol/L NC) Low Sodium Level 133 LAB 68748-7(LO 70-110 mg/dL INC) High Glucose Level 265 LAB 39699-1(LO 6.0-18.0 mMol/L INC) Anion Normal Gap 13.0 LAB 2028-9(HANY 22-32 mMol/L NC) Carbon Normal Dioxide Level 22 LAB 2823-3(HANY 3.6-5.1 mMol/L NC) Normal Potassium Level 4.1 LAB 87648-5(LO 8.9-10.3 mg/dL INC) Low Calcium Total 8.8 Performed By: #### 59373-4, 70262-5i9, 51913-8 #### [facility] [address], [place] GLUCOSE POCT Collected: 09/23/2018 Status: F Source: [facility] (UPLOADED) 5:41 AM HEALTH SYSTEM REPOSITORY TYPE CODE TESTS RESULT OUT OF REFERENCE UNITS RANGE LAB 2340-8(LOIN 70-110 mg/dL C) High Glucose 254 POCT-LAB Result Comment: Treatment ranges and critical values established by Patient Care Services. All follow-up actions were taken by Patient Care Services. Performed By: #### 2430-8 #### [facility] POINT OF CARE CONSULTATION Observed: 09/23/2018 Status: F Source: [facility] 12:00 AM HEALTH SYSTEM REPOSITORY DICTATED BY:DAPHNEY JAUREGUI MD SERVICE DATE:09/23/2018 REASON FOR CONSULTATION: Pre-mitral valve replacement dental evaluation. HISTORY OF PRESENT ILLNESS: The patient is a 73-year-old male who presented to [facility] on September 21 with a complaint of severe shortness of breath. He is a resident of [place] and was visiting family in [place] for the holidays when he developed shortness [...] care. PLAN: No dental intervention is indicated. LINEBAUGH, LOVE E Birthdate: 1945 #: [id number] D/09/23/2018 11:37:57 T/09/23/2018 12:10:18 VOICE JOB ID:[id number] [place] thanks you for the opportunity to care for your patient. DID: [id number] CONSULTATION Observed: 09/23/2018 Status: F Source: [facility] 12:00 AM HEALTH SYSTEM REPOSITORY DICTATED BY:EMERSON [...] reportedly chronic kidney disease. He lives in [place], [place], and was in [facility]. He does admit to significant feasting on with likely a significant sodium intake. He noted some difficulties with dyspnea a nd some chest discomfort the following day. This progressed to the point that he was dyspneic at rest. He was presented to the [facility] Emergency Department, where he was found to [...] patient does tend to follow with the [facility] in [place], [place]. He is aware of some degree [...] with you. LOVE PHELAN Birthdate: 1945 #: [id number] D/09/23/2018 12:02:06 T/09/23/2018 12:43:46 VOICE JOB ID:[id number] Jed Velarde thanks you for the opportunity to care for your patient. CC: [facility] DID: [id number] GLUCOSE POCT Collected: 09/22/2018 Status: F Source: [facility] (UPLOADED) 9:01 PM HEALTH SYSTEM REPOSITORY [...] Observed: 09/22/2018 Status: F Source: [facility] 5:41 PM HEALTH SYSTEM REPOSITORY Patient: LOVE PHELAN MRN: ([id number] Age: 73 years Sex: Male : 1945 [...] Echo ordered, cardiology consult and went to [facility] today showing patent stents to LCx and [...] changes, we'll continue trend troponin and underwent [facility] showing elevated levels LVEDP and HF. 5. [...] and examiend. Pt on the way to [facility] Denies fevers, chills, nausea, vomiting, abdominal pain, [...] Begin date: 09/21 17:41 End date: 09/22 17: 24 Hour Intake: 249.80 Output: 1300.00 Balance: [...] PO, w/bkfst+din cyanocobalamin: 100 mcg, IM, Month (O57Rtll) oxygen: 1 Each, Inhalation, Daily Documented Medications [...] mcg/ml injectable solution: 1 mL, IM, Month (Q07Oalo), Each, 0 Refill(s) glipiZIDE 10 mg oral [...] WITH Collected: 09/22/2018 Status: F Source: [facility] MICROSCOPIC AUTOMATIC 1:40 PM HEALTH SYSTEM WITH REFLEX REPOSITORY TYPE CODE TESTS RESULT OUT OF RANGE REFERENCE UNITS LAB 5811-5(LO 1.002-1.030 INC) Normal Specific [place] Urine 1.010 LAB 28918-8(L NORMAL OINC) Normal Urobilinogen NORMAL Urine LAB 5803-2(LO 4.5-8.0 INC) Normal pH Urine 6.0 LAB 47946-7(L NEGATIVE OINC) Normal Nitrite Urine NEGATIVE LAB [...] NORMAL INC) Glucose Abnormal Urine 150MG/DL LAB 03638-8(L NEGATIVE OINC) Normal Bilirubin Urine NEGATIVE Performed By: #### 81343-7, 87489-6 #### [facility], [address] [place], [place] URINALYSIS MICROSCOPIC Collected: 09/22/2018 Status: F Source: [facility] SYD 1:40 PM HEALTH SYSTEM REPOSITORY TYPE CODE TESTS RESULT OUT OF RANGE REFERENCE UNITS LAB 5821-4x1(L 0-5 /hpf OINC) Normal WBC Urine 1 LAB 8247-9(HANY NONE/LPF NC) Abnormal Mucous RARE Urine LAB 73988-3(LO 0-5 /hpf INC) Normal RBC Urine 1 Performed By: #### 20396-3, 05681-8 #### [facility], [address] [place] [address] CONSULTATION Observed: 09/22/2018 Status: F Source: [facility] 1:01 PM HEALTH SYSTEM REPOSITORY Patient: LOVE PHELAN MRN: ([id number] Age: 73 years Sex: Male : 1945 Associated Diagnoses: None Author: Sarah Bryan CNP Supervising Physician Comments Documentation By: Nurse Practitioner. Admission Information Source of history: The patient, medical records and . History of Present Illness MI'KMAQ: Mr. Aleman is a 73 year old male with past medical history significant for chronic ischemic heart disease s/p multivessel stenting in 2009, HTN, HLD, T2DM, CKD, and obesity who presented to [facility] on 09/21/18 with c/o shortness of breath. He was in [place] visiting family for the holidays when he [...] valve repair/replacement. Of note, pt lives in [place] and follows with his Incident Response Manager there regularly. He had a routine office [...] Impression and Plan Diagnosis Mitral valve regurgitation ([id number] I34.0, Working, Medical). Consult Thank you for [...] ACTIVATED CLOTTING Collected: 09/22/2018 Status: F Source: [facility] TIME (ACT) POCT (UPLO 12:22 PM HEALTH SYSTEM REPOSITORY TYPE CODE TESTS RESULT OUT OF RANGE REFERENCE UNITS LAB 3184-9(HANY Sec NC) Normal Activated 188 Clotting Time POCT Result Comment: Treatment ranges and critical values established by Patient Care Services. All follow-up actions were taken by Patient Care Services. Performed By: #### 25386-7 #### [facility] POINT OF CARE CARDIAC CATHETERIZATION Observed: 09/22/2018 Status: F Source: [facility] 11:27 AM HEALTH SYSTEM REPOSITORY Cardiac Diagnostic Report Demographics Patient TAPAN Date of 1945 Height 70.87 Name LOVE Plasencia inches Patient [id number] Age 73 year(s) Weight 233.69 Number pounds Visit [id number] Gender Male BSA 2.25 m2 Number Date of 09/22/2018 Race Unknown BMI 32.72 Study kg/m2 # Referring Rashawn Dickerson Diagnostic Abdoulaye Stanford Interventional Physician Physician Physician Hemalatha Barrera Physician Christi MOLINA Diagnostic Cath Status: Urgent [...] !Site !Pressure ! +-----+ + !RA !10/09 (9) ! +-----+ + !RA !10/08 (9) ! +-----+ + !RV !05/12 ,6 ! +-----+ + !RV !01/12 ,7 ! +-----+ + !RV !29/-1 ,4 ! +-----+ + !RV !28/0 ,4 ! +-----+ + !RV !32/3 ,7 ! +-----+ + !PCW !15/15 (11) ! +-----+ + !PA !28/9 (16) ! +-----+ + !PA !31/15 (8) ! +-----+ + !PA !32/10 (20) [...] +--------+--------+--------+---------+ + + Shunts Oxygen Values O2 Cjfupwnw899.48O2 Aqojwgqouka217.29 Flows (l/min)Qs6.45 Vascular Resistance + +-----+-----+----+----+---------+-------+ !CO [...] I.V. 40 mg. Diagnostic Catheters - Bazzi [place]-Yajaira 7Fr ViewsIQ-Shore TD(141F7) was used for right heart catheterization; - Cordis 6Fr JR 5 100cm (533623) was used for left heart catheterization and coronary angiography; - Cordis 6Fr JL 3.5 100cm (533618) was used for coronary angiography; Estimated blood loss: 10 ml. Contrast Material - Ihnxja28 ml Fluoroscopy Time: Diagnostic: 2:00 minutes. Total: [...] ECHOCARDIOGRAM TXT Observed: 09/22/2018 Status: F Source: [facility] 9:08 AM [facility] SYSTEM REPOSITORY Transthoracic Echocardiography Report (TTE) Demographics Patient Name TAPAN Plasencia Date of 1945 Patient Number [id number] Age 73 year(s) Visit Number [id number] Gender Male Room Number 0229 Referring Robe Kohler MD Asphalt Coater Maco Hardin Physician RD Interpreting [facility] Ordering Robe Kohler MD Provider Consultants [...] injected due to poor endocardial border definition; rehabilitator could not detect 2 or more contiguous [...] Observed: 09/22/2018 Status: F Source: [facility] 6:52 AM HEALTH SYSTEM REPOSITORY Patient: LOVE PHELAN MRN: [id number] Age: 73 years Sex: Male : 1945 Associated Diagnoses: None Author: Guadalupe TIRE AND LUBE TECHNICIAN, Debi Assessment Received call from nurse per [...] POCT ABG Collected: 09/22/2018 Status: C Source: [facility] LYTES LACTATE 6:05 AM HEALTH SYSTEM (UPLOAD) REPOSITORY TYPE CODE TESTS RESULT OUT OF REFERENCE UNITS RANGE LAB CD:049665 cm3 8165(LOIN C) AVAP Min POCT Normal 0 LAB CD:351022 Cm Water 8065(LOIN C) CPAP/PEEP POCT Normal 0 LAB 2019-8(LO 32-48 mmHg INC) pCO2 Arterial POCT Normal 40 LAB 61598-6(L 70-110 mg/dL OINC) Glucose POCT High 311 LAB 37673-1(L 10.0-20.0 mEq/L OINC) Low Anion Gap POCT 9.6 LAB 77598-3(L -2.0-3.0 mMol/L OINC) Low Base Excess POCT -3.1 LAB 84712-3(L % OINC) Carboxyhemoglobin POCT Normal 0.5 Result Comment: NON SMOKERS <1.5% SMOKERS 1.5 - 9.0% LAB CD:0853082208(LOINC) EPAP Normal POCT 0 LAB CD:0742593510(LOINC) cm3 Tidal Normal Volume POCT 0 LAB 718-7(LOINC) 13.5-1 gm/dL Low 7.5 Hemoglobin POCT 11.7 LAB 2075-0(LOINC) 98-106 mEq/L Chloride Normal POCT 105 LAB 54268-2(LOINC) VOL% O2 Normal Content POCT 14.8 LAB 2744-1(LOINC) 7.35-7 .45 Blood Normal Gas pH Arterial POCT 7.36 Result Comment: A result of UNABLE indicates the actual value could not be calculated. Treatment ranges and critical values established by Patient Care Services. All follow-up actions were taken by Patient Care Services. LAB 46803-1(LOINC) 0.5-1.6 mMol/L Normal Lactate POCT 1.5 LAB CD:2915641385(LOINC ) Resp. Normal Rate POCT 0 LAB CD:0712599290(LOINC ) IPAP Normal POCT 0 LAB 62777-8(LOINC) 3.5-5.0 mEq/L Normal Potassium POCT 4.5 LAB 2708-6(LOINC) 95.0-99.0 % Low O2 Saturation Arterial POCT 90.7 LAB 17162-7(LOINC) FiO2 Normal POCT 36.0 Result Comment: POC FI O2 CORRECTED FROM 28.0 ON 09/22/18 AT 0628 BY [id number] NOTIFIED BY RESP THERAPIST [id number] THAT FIO2 AND LPM WERE ENTERED INCORRECTLY. RESULTS CORRECTED BY THE LAB. SAS 09/22/18 06:28 LAB 50725-4(LOINC) 39-49 % Low Hematocrit POCT 36 LAB CD:9545059896(LOINC) Mode Normal POCT NCA LAB CD:3628762953(LOINC) 0-99 Pressure Normal Support POCT 0 LAB 49530-7(LOINC) LPM POCT Normal 4.0 Result Comment: POC LITER FL CORRECTED FROM 2.0 ON 09/22/18 AT 0628 BY [id number] LAB 2951-2(LOINC) 136-146 mEq/L Sodium POCT Normal 136 LAB 05165-8(LOINC) 21.0-28.0 mMol/L HCO3 Normal Arterial POCT 22.2 LAB 2614-6(LOINC) 0.2-0.6 % High Methemoglobin 0.9 POCT LAB 56061-2(LOINC) Sample Type Normal POCT Arterial LAB CD:9559219104(LOIN C) Pulse Normal Oximetry POCT 94 Clinic LAB CD:3845854919(LOIN Cm Water C) PEEP POCT Normal 0 LAB CD:4933397967(LOIN cm3 C) AVAP Max Normal POCT 0 LAB 2703-7(LOINC) 83-108 mmHg pO2 Low Arterial POCT 63 LAB 59125-6(LOINC) 94.0-99.0 % O2 Low Hemoglobin POCT 89.4 LAB 77705-9(LOINC) 1.12-1.32 mMol/L Calcium Normal Ionized POCT 1.16 LAB 2026-3(LOINC) 22.0-29.0 mMol/L Total CO2 Low Arterial POCT 20.5 LAB CD:7635900627(LOIN C) Site POCT Normal RRA Performed By: #### 49463-4z4 #### POINT OF CARE PROTHROMBIN TIME Collected: 09/22/2018 Status: F Source: [facility] 5:46 AM HEALTH SYSTEM REPOSITORY TYPE CODE TESTS RESULT OUT OF RANGE REFERENCE UNITS LAB 5902-2(HANY 9.3-12.4 Sec NC) High Prothrombin Time (PT) 15.6 LAB 24557-5(LO INC) INR Normal 1.35 Result Comment: The recommended therapeutic INR range for most cardiac indications is 2.0-3.0. For high intensity therapy(ie.mechanical heart valves), the recommended range is 2.5-3.5. Performed By: #### 5902-2 #### [facility] [address] [place], [place] PARTIAL THROMBOPLASTIN Collected: 09/22/2018 Status: F Source: [facility] TIME (APTT) 5:46 AM HEALTH SYSTEM REPOSITORY Order Comment: To be drawn (0600, 1400, 2200) while on heparin TYPE CODE TESTS RESULT OUT OF REFERENCE UNITS RANGE LAB 36854-6(LO 23.6-35.3 Sec INC) Partial High Thromboplastin 79.4 (aPTT) Performed By: #### 5902-2 #### [facility] [address] [place], [place] CBC Collected: 09/22/2018 Status: F Source: [facility] 5:46 AM [facility]ALTH SYSTEM REPOSITORY TYPE CODE TESTS RESULT OUT OF REFERENCE UNITS RANGE LAB 83582-1(LO 11.0-14.8 % INC) RDW Normal 14.1 LAB 718-7(LOIN 13.5-17.5 gm/dL C) Low Hemoglobin 11.8 LAB 43483-4(LO 32.0-36.0 gm/dL INC) MCHC Normal 33.7 LAB 67492-5(LO 27.0-34.0 Picograms INC) MCH Normal 28.0 LAB 05184-3(LO 4.30-5.70 million/mcL INC) Low Red Blood Cell 4.22 Count LAB 75772-5(LO 4.6-10.2 thou/mcL INC) WBC Normal Count 8.0 LAB 30212-7(LO 6.2-12.1 FL INC) MPV Normal 9.3 LAB 40061-0(LO 80.0-97.0 FL INC) MCV Normal 83.0 LAB 78104-4(LO 142-424 thou/mcL INC) Normal Platelet Count 163 LAB 50847-5(LO 39.0-49.0 % INC) Low Hematocrit 35.0 Performed By: #### 13050-7 #### [facility] [address] [place], [place] BNP (B -TYPE Collected: 09/22/2018 Status: F Source: [facility] NATRIURETIC PEPTIDE) 5:46 AM HEALTH SYSTEM REPOSITORY TYPE CODE TESTS RESULT OUT OF REFERENCE UNITS RANGE LAB 56591-6(LO 0-100 Picogram/m INC) l B Type High Natriuretic 281 Peptide Result Comment: Less than 100 CHF is unlikely Greater than 100 Possible left ventricular And less than 400 dysfunction-unlikely acute decompensation Greater than 400 Suspicious for decompensated heart failure Performed By: #### 95945-0 #### [facility] [address] [place], [place] TROPONIN I Collected: 09/22/2018 Status: F Source: [facility] 5:46 AM [facility]ALTH SYSTEM REPOSITORY TYPE CODE TESTS RESULT OUT OF RANGE REFERENCE UNITS LAB 35717-9(LO <0.06 ng/mL INC) Abnormal Alert Troponin I 0.51 Result Comment: Previous result critical and called. Call not required for this result. Performed By: #### 78290-5 #### [facility] [address], [place] GFRAA Collected: 09/22/2018 Status: F Source: TAPPEN 5:46 AM [facility]ALTH SYSTEM REPOSITORY TYPE CODE TESTS RESULT OUT OF RANGE REFERENCE UNITS LAB 69139-1(LO mL/min INC) GFR Normal Estimated 50 Result Comment: The MDRD equation has not been validated for those over 70 years, women, patients with serious co-morbid conditions, or with extremes of body size, muscle mass of nutritional status. Performed By: #### 92136-9, 52895-9c1, 3016-3, 16762-9 #### [facility] [address], [place] GFRBB Collected: 09/22/2018 Status: F Source: TAPPEN 5:46 AM HEALTH SYSTEM REPOSITORY TYPE CODE TESTS RESULT OUT OF RANGE REFERENCE UNITS LAB 79893-8(LO mL/min INC) GFR Normal Estimated Non 41 Performed By: #### 70045-0, 13780-8w9, 3016-3, 15194-8 #### [facility] [address], [place] THYROID STIMULATING Collected: 09/22/2018 Status: F Source: TAPPEN HORMONE 5:46 AM HEALTH SYSTEM REPOSITORY TYPE CODE TESTS RESULT OUT OF RANGE REFERENCE UNITS LAB 3015-5(HANY 0.45-5.33 mcIU/mL NC) Thyroid Normal Stimulating 1.36 Hormone Performed By: #### 14287-0, 52096-1d0, 3016-3, 27215-8 #### [facility] [address], [place] BASIC METABOLIC PANEL Collected: 09/22/2018 Status: F Source: [employer] SemiconductorMEL 5:46 AM HEALTH SYSTEM REPOSITORY TYPE CODE TESTS RESULT OUT OF RANGE REFERENCE UNITS LAB 33207-8(LO 6.0-18.0 mMol/L INC) Anion Normal Gap 7.0 LAB 81340-9(LO 8.9-10.3 mg/dL INC) Low Calcium Total 8.6 LAB 2951-2(HANY 136-145 mMol/L NC) Low Sodium Level 132 LAB 2075-0(HANY 98-107 mMol/L NC) Chloride Normal Level 104 LAB 2160-0(HANY 0.60-1.30 mg/dL NC) High Creatinine 1.65 LAB 2823-3(HANY 3.6-5.1 mMol/L NC) Normal Potassium Level 4.6 LAB 41971-8(LO 70-110 mg/dL INC) High Glucose Level 314 LAB 14657-5(LO 8-20 mg/dL INC) High BUN 63 LAB 8-9(HANY 22-32 mMol/L NC) Low Carbon Dioxide Level 21 Performed By: #### 89868-2, 38854-4h1, 3016-3, 08256-6 #### [facility] [address], [place] LIPID PANEL Collected: 09/22/2018 Status: F Source: [facility] SYD 5:46 AM HEALTH SYSTEM REPOSITORY TYPE CODE TESTS RESULT OUT OF RANGE REFERENCE UNITS LAB 93129-7(LO <100 mg/dL INC) LDL Normal Cholesterol 54 LAB 2093-3x1(L <200 mg/dL OINC) Lipid Normal Profile - 125 Cholesterol Result Comment: Refer to the National Cholesterol Education Program ATP III cut offs for risk stratification. LAB 2091-7(LOINC) 2-38 mg/dL VLDL High 44 LAB 2571-8(LOINC) <200 mg/dL Lipid Profile High - Triglyceride 219 LAB 5-9(LOINC) >40 mg/dL HDL Low Cholesterol 27 Performed By: #### 79692-8 #### [facility] [address], [place] GLYCOHEMOGLOBIN (HGB A1C) Collected: 09/22/2018 Status: F Source: [facility] SYD PANEL 5:46 AM HEALTH SYSTEM REPOSITORY TYPE CODE TESTS RESULT OUT OF REFERENCE UNITS RANGE LAB 4548-4(HANY 4.0-6.0 % tl hgb NC) High Hemoglobin A1c 9.0 Result Comment: New method 01/25/15: [employer] HPLC (high-performance liquid chromatography) Performed By: #### 4549-2 #### [facility], [address], [place]. GLUCOSE POCT Collected: 09/22/2018 Status: F Source: JED GARLANDMEL (UPLOADED) 5:45 AM HEALTH SYSTEM REPOSITORY TYPE [...] VIEW Observed: 09/22/2018 Status: F Source: JED GARLANDMEL 5:18 AM HEALTH SYSTEM REPOSITORY EXAMINATION TYPE: [...] Observed: 09/22/2018 Status: F Source: JED GARLANDMEL 5:17 AM HEALTH SYSTEM REPOSITORY Patient: LOVE PHELAN Age: 73 years Sex: Male : 1945 Associated Diagnoses: None Author: Guadalupe TIRE AND LUBE TECHNICIAN, Debi Assessment Received call from nurse per nurse report patient complaining of chest pain, STAT orders for troponin, ekg , single view chest xray , and cbc, sublingual nitroglycerin prn. Nurse to notify cardiol ogy of chest pain and to notify sound of results of testing. Continue to monitor. , ' Comments PARTIAL THROMBOPLASTIN Collected: 09/22/2018 Status: F Source: TAPPEN TIME (APTT) 1:15 AM HEALTH SYSTEM REPOSITORY TYPE CODE TESTS RESULT OUT OF REFERENCE UNITS RANGE LAB 04850-9(LO 23.6-35.3 Sec INC) Partial High Thromboplastin 88.6 (aPTT) Performed By: #### 3173-2 #### [facility] [address], [place] GLUCOSE POCT Collected: 09/21/2018 Status: F [...] RESULT OUT OF RANGE REFERENCE UNITS LAB 30222-6(LO <0.06 ng/mL INC) Abnormal Alert Troponin I 1.88 Result Comment: Critical value(s) on tests TROPONIN called to and read-back by [id number] , at location [place] by [id number] time called 09/21/18 16:41 Performed By: #### 34012-3 #### [facility] [address], [place] TROPONIN I Collected: 09/21/2018 Status: F Source: JED VELARDE 11:57 AM HEALTH SYSTEM REPOSITORY TYPE CODE TESTS RESULT OUT OF RANGE REFERENCE UNITS LAB 72081-0(LO <0.06 ng/mL INC) Abnormal Alert Troponin I 2.03 Result Comment: Previous result critical and called. Call not required for this result. 09/21/18 12:45 FAB Performed By: #### 14680-7 #### [facility] [address], [place] MAGNESIUM LEVEL Collected: 09/21/2018 Status: F Source: JED VELARDE 9:56 AM HEALTH SYSTEM REPOSITORY TYPE CODE TESTS RESULT OUT OF REFERENCE UNITS RANGE LAB 48791-4(LO 1.8-2.5 mg/dL INC) Low Magnesium Level 1.7 Performed By: #### 49732-0, 38905-3 #### [facility] [address], [place] BASIC METABOLIC PANEL Collected: 09/21/2018 Status: F Source: TAPPEN 9:56 AM HEALTH SYSTEM REPOSITORY TYPE CODE TESTS RESULT OUT OF RANGE REFERENCE UNITS LAB 08827-5(LO 8-20 mg/dL INC) High BUN 51 LAB 2075-0(HANY 98-107 mMol/L NC) Chloride Normal Level 100 LAB 96026-2(LO 6.0-18.0 mMol/L INC) Anion Normal Gap 14.0 LAB 37503-5(LO 8.9-10.3 mg/dL INC) Low Calcium Total 8.5 LAB 2160-0(HANY 0.60-1.30 mg/dL NC) High Creatinine 1.81 LAB 2951-2(HANY 136-145 mMol/L NC) Low Sodium Level 134 LAB 2823-3(HANY 3.6-5.1 mMol/L NC) Normal Potassium Level 4.8 LAB 94213-9(LO 70-110 mg/dL INC) High Glucose Level 312 LAB 2028-9(HANY 22-32 mMol/L NC) Low Carbon Dioxide Level 20 Performed By: #### 77379-0, 33839-5 #### [facility] [address], [place] PROTHROMBIN TIME Collected: 09/21/2018 Status: F Source: TAPPEN 9:56 AM [facility]ALTH SYSTEM REPOSITORY TYPE CODE TESTS RESULT OUT OF RANGE REFERENCE UNITS LAB 82332-2(HANY NC) Normal INR 1.22 Result Comment: The recommended therapeutic INR range for most cardiac indications is 2.0-3.0. For high intensity therapy(ie.mechanical heart valves), the recommended range is 2.5-3.5. LAB 5902-2(LOINC) 9.3-12.4 Sec Prothrombin High Time (PT) 14.0 Performed By: #### 5902-2, 3173-2 #### [facility] [address], [place] PARTIAL THROMBOPLASTIN Collected: 09/21/2018 Status: F Source: TAPPEN TIME (APTT) 9:56 AM HEALTH SYSTEM REPOSITORY TYPE CODE TESTS RESULT OUT OF REFERENCE UNITS RANGE LAB 49490-4(LO 23.6-35.3 Sec INC) Partial Normal Thromboplastin 33.9 (aPTT) Performed By: #### 5902-2, 3173-2 #### [facility] [address], [place] TROPONIN I Collected: 09/21/2018 Status: F Source: TAPPEN 9:56 AM [facility] SYSTEM REPOSITORY TYPE CODE TESTS RESULT OUT OF RANGE REFERENCE UNITS LAB 75612-3(LO <0.06 ng/mL INC) Abnormal Alert Troponin I 1.54 Result Comment: Previous result critical and called. Call not required for this result. 09/21/18 10:50 FAB Performed By: #### 95937-0 #### [facility] [address], [place] PROGRESS NOTES Observed: 09/21/2018 Status: F Source: TAPPEN 8:00 AM HEALTH SYSTEM REPOSITORY Patient: LOVE PHELAN MRN: [id number] Age: 73 years Sex: Male : 1945 [...] CHF, currently on 2 L 02 via NC # CKD: stated baseline Cr is high. [...] TROPONIN I Collected: 09/21/2018 Status: F Source: TAPPEN 7:52 AM [facility]ALTH SYSTEM REPOSITORY TYPE CODE TESTS RESULT OUT OF RANGE REFERENCE UNITS LAB 79775-2(LO <0.06 ng/mL INC) Abnormal Alert Troponin I 0.99 Result Comment: Critical value(s) on tests TROPI called to and read-back by [id number] , at location [place] by [id number] time called 09/21/18 09:05 FAB Performed By: #### 41500-3 #### [facility] [address], [place] GLUCOSE POCT Collected: 09/21/2018 Status: F Source: TAPPEN (UPLOADED) 6:54 AM HEALTH SYSTEM REPOSITORY TYPE CODE TESTS RESULT OUT OF REFERENCE UNITS RANGE LAB 2340-8(LOIN 70-110 mg/dL C) High Glucose 299 POCT-LAB Result Comment: Treatment ranges and critical values established by Patient Care Services. All follow-up actions were taken by Patient Care Services. Performed By: #### 2430-8 #### [facility] POINT OF CARE CONSULTATION Observed: 09/21/2018 Status: C Source: TAPPEN 6:45 AM HEALTH SYSTEM REPOSITORY Patient: LOVE PHELAN MRN: [id number] Age: 73 years Sex: Male : 1945 Associated Diagnoses: None Author: Christi Barrera CNP Comments Mr. Love Phelan is a 73 yo male who p/w acute SOB and orthopnea. He has a PMH significant for CAD s/p MS and multivessel stenting 2009, HTN, HLD, DM2, CKD, carotid vascular disease, and obesity. He is in [place] visiting family for holidays and historically follows with Dr. Hemant Blanchard in [place], [place] area. He was last seen 06/2018 in routine f/u and continued med mgmt. At baseline, he does not formally exercise but maintains active lifestyle w/o baseline cardiopulmonary c/o. On 09/19, he noted right shoulder musculoskeletal pain which is chronic and took ibuprofen with relief. Yesterday 09/20 he celebrated 2nd Thanksgiving with family and over-indulged in signiifcant amoun [...] 2014: No ischemia per EMR. Cardiac cath 2010: LAD 85% followed by 80% stenosis. LCx 90%. RCA 100%. Per EMR, all vessels intervened upon with PCI and stenting (details unknown). IMP -Acute heart failure; unknown LV function. -Elevated troponin; 0.07. In setting of acute CHF, renal insufficiency of unknown chronicity, and underlying CAD. -Chronic ischemic heart disease; s/p MS and multivessel stenting 2009. He had negative [...] developed in collaboration with Dr. Christi Tang. [id number] Christi Barrera BELT BRANDER Attending attestation I have discussed this case [...] benefits outweigh the risks Christi Tang MD [place] [employer] HISTORY AND PHYSICAL Observed: 09/21/2018 Status: F Source: JED GARLANDMEL 5:52 AM HEALTH SYSTEM REPOSITORY Patient: LOVE PHELAN MRN: ([id number] Age: 73 years Sex: Male : 1945 [...] unknown baseline since he lives out of [place] and he is visiting his daughter over the holidays. Around 1:30 AM he woke up with right shoulder pain patient b gabies he pulled a muscle, and he walked [...] PO, Daily cyanocobalamin: 100 mcg, IM, Month ([id number]) oxygen: 1 Each, Inhalation, Daily Documented Medications [...] mcg/ml injectable solution: 1 mL, IM, Month (X35Ioqs), Each, 0 Refill(s) glipiZIDE 10 mg oral [...] determined Impression and Plan Diagnosis Acute CHF (DJB03-LD I50.9, Working, Medical). XR CHEST 1 VIEW Observed: 09/21/2018 Status: F Source: TAPPEN 4:29 AM HEALTH SYSTEM REPOSITORY EXAMINATION TYPE: [...] WITH DIFFERENTIAL Collected: 09/21/2018 Status: F Source: TAPPEN 4:14 AM HEALTH SYSTEM REPOSITORY TYPE CODE TESTS RESULT OUT OF REFERENCE UNITS RANGE LAB 31372-4(LO 0.0-12.0 % INC) Normal Monocyte 9.2 LAB 742-7(LOIN 0.00-0.90 thou/mcL C) Normal Monocyte 0.60 Absolute LAB 718-7(LOIN 13.5-17.5 gm/dL C) Normal Hemoglobin 13.9 LAB 25714-0(LO 11.0-14.8 % INC) RDW Normal 14.7 LAB 88504-1(LO 22.0-44.0 % INC) Low Lymphocyte 19.0 LAB 731-0(LOIN 1.00-4.80 thou/mcL C) Normal Lymphocyte 1.30 Absolute LAB 17657-6(LO 4.30-5.70 million/mcL INC) Red Normal Blood Cell 4.99 Count LAB 62445-7(LO 32.0-36.0 gm/dL INC) MCHC Normal 33.3 LAB 80244-1(LO 4.6-10.2 thou/mcL INC) WBC Normal Count 6.6 LAB 36740-9(LO 27.0-34.0 Picograms INC) MCH Normal 27.9 LAB 751-8(LOIN 1.80-7.70 thou/mcL C) Normal Neutrophil 4.50 Absolute LAB 75348-2(LO 40.0-70.0 % INC) Normal Neutrophil 67.9 LAB 05396-6(LO 80.0-97.0 FL INC) MCV Normal 83.7 LAB 01478-3(LO 6.2-12.1 FL INC) MPV Normal 9.0 LAB 77143-8(LO 0.0-2.0 % INC) Normal Basophil 0.9 LAB 704-7(LOIN 0.00-0.20 thou/mcL C) Normal Basophil 0.10 Absolute LAB 31175-3(LO 39.0-49.0 % INC) Normal Hematocrit 41.7 LAB 86725-3(LO 0.0-7.0 % INC) Normal Eosinophil 3.0 LAB 711-2(LOIN 0.00-0.70 thou/mcL C) Normal Eosinophil 0.20 Absolute LAB 13025-3(LO 142-424 thou/mcL INC) Normal Platelet Count 158 Performed By: #### 48240-0 #### [facility] [address], [place] PROTHROMBIN TIME Collected: 09/21/2018 Status: F Source: JED VELARDE 4:14 AM HEALTH SYSTEM REPOSITORY TYPE CODE TESTS RESULT OUT OF RANGE REFERENCE UNITS LAB 5902-2(HANY 9.3-12.4 Sec NC) High Prothrombin Time (PT) 13.4 LAB 86310-2(LO INC) INR Normal 1.17 Result Comment: The recommended therapeutic INR range for most cardiac indications is 2.0-3.0. For high intensity therapy(ie.mechanical heart valves), the recommended range is 2.5-3.5. Performed By: #### 5902-2, 3173-2 #### [facility] [address], [place] PARTIAL THROMBOPLASTIN Collected: 09/21/2018 Status: F Source: TAPPEN TIME (APTT) 4:14 AM HEALTH SYSTEM REPOSITORY TYPE CODE TESTS RESULT OUT OF REFERENCE UNITS RANGE LAB 40557-4(LO 23.6-35.3 Sec INC) Partial Normal Thromboplastin 34.1 (aPTT) Performed By: #### 5902-2, 3173-2 #### [facility] [address], [place] GFRAA Collected: 09/21/2018 Status: F Source: TAPPEN 4:14 AM HEALTH SYSTEM REPOSITORY TYPE CODE TESTS RESULT OUT OF RANGE REFERENCE UNITS LAB 68922-9(LO mL/min INC) GFR Normal Estimated 47 Result Comment: The MDRD equation has not been validated for those over 70 years, women, patients with serious co-morbid conditions, or with extremes of body size, muscle mass of nutritional status. Performed By: #### 89673-9, 18065-8u2, 81667-4, 80042-6 #### [facility] [address], [place] GFRBB Collected: 09/21/2018 Status: F Source: TAPPEN 4:14 AM [facility]ALTH SYSTEM REPOSITORY TYPE CODE TESTS RESULT OUT OF RANGE REFERENCE UNITS LAB 16907-2(LO mL/min INC) GFR Normal Estimated Non 39 Performed By: #### 46710-6, 59558-2b3, 09246-7, 16809-9 #### [facility] [address], [place] BASIC METABOLIC PANEL Collected: 09/21/2018 Status: F Source: TAPPEN 4:14 AM [facility]ALTH SYSTEM REPOSITORY TYPE CODE TESTS RESULT OUT OF RANGE REFERENCE UNITS LAB 2160-0(HANY 0.60-1.30 mg/dL NC) High Creatinine 1.74 LAB 87984-6(LO 6.0-18.0 mMol/L INC) Anion Normal Gap 12.0 LAB 2028-9(HANY 22-32 mMol/L NC) Low Carbon Dioxide Level 21 LAB 2951-2(HANY 136-145 mMol/L NC) Low Sodium Level 135 LAB 2075-0(HANY 98-107 mMol/L NC) Chloride Normal Level 102 LAB 12137-8(LO 8.9-10.3 mg/dL INC) Calcium Normal Total 9.0 LAB 06076-6(LO 70-110 mg/dL INC) High Glucose Level 221 LAB 24023-7(LO 8-20 mg/dL INC) High BUN 48 LAB 2823-3(HANY 3.6-5.1 mMol/L NC) Normal Potassium Level 4.2 Performed By: #### 95785-8, 09489-1p1, 60514-9, 09380-9 #### [facility] [address], [place] TROPONIN I Collected: 09/21/2018 Status: F Source: TAPPEN 4:14 AM [facility]ALTH SYSTEM REPOSITORY TYPE CODE TESTS RESULT OUT OF REFERENCE UNITS RANGE LAB 11724-8(HANY <0.06 ng/mL NC) High Troponin I 0.07 Performed By: #### 54574-5, 05346-3d3, 45722-5, 62637-7 #### [facility] [address], [place] BNP (B -TYPE Collected: 09/21/2018 Status: F Source: TAPPEN NATRIURETIC PEPTIDE) 4:14 AM HEALTH SYSTEM REPOSITORY TYPE CODE TESTS RESULT OUT OF REFERENCE UNITS RANGE LAB 52202-6(LO 0-100 Picogram/m INC) l B Type High Natriuretic 233 Peptide Result Comment: Less than 100 CHF is unlikely Greater than 100 Possible left ventricular And less than 400 dysfunction-unlikely acute decompensation Greater than 400 Suspicious for decompensated heart failure Performed By: #### 90318-8 #### [facility] [address], [place] ED PHYSICIAN NOTES Observed: 09/21/2018 Status: F Source: [employer] 4:12 AM HEALTH SYSTEM REPOSITORY Patient: LOVE PHELAN MRN: ([id number] Age: 73 years Sex: Male : 1945 [...] . CONSULTATION Observed: 09/21/2018 Status: F Source: TAPPEN 12:00 AM HEALTH SYSTEM REPOSITORY DICTATED BY: CHRISTI BARRERA TIRE AND LUBE TECHNICIAN SERVICE DATE: 09/21/2018 DATE OF CONSULTATION: 05/21/2018 REASON FOR CONSULTATION: CHF, elevated troponin. PRIMARY GRAVEL INSPECTOR: Hemant Blanchard MD PRIMARY CARE PHYSICIAN: Unknown. HISTORY OF PRESENT ILLNESS: The patient is a 73-year-old gentleman who presents to [facility] with acute shortness of breath and orthopnea. [...] disease and obesity. He resides in the [facility]; however, is in [place] visiting his family for the holidays and has historically followed with his freight forwarder as noted above. He reports no cardiopulmonary complaints at baseline. 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 He resides in [facility] with his . FAMILY HISTORY: Father [...] no ischemia was appreciated. Cardiac catheterization in 2009, LAD 85%, followed by 80% stenosis, status [...] 3. Chronic ischemic heart disease, status post MS and multivessel stenting in 2009, he had [...] developed in collaboration with Dr. Christi Tang. TAPANLOVE Birthdate: 1945 [facility]#: [id number] D/09/21/2018 10:22:04 T/09/21/2018 11:12:59 VOICE JOB ID: [id number] Jed Velarde thanks you for the opportunity to care for your patient. DID: [id number] CARDIOLOGY VISIT Observed: 07/15/2018 Status: F Source: W[place] REPORT 11:39 AM [facility] REPOSITORY [facility] [address] [place] [address]. 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 Assessment AND Plan 1. Atherosclerosis of [place] coronary artery of [place] heart without angina pectoris I25.10 Plan - [...] prior to saving. 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 transplanted heart: [place] heart HTN (hypertension), benign I10 Pure hypercholesterolemia E78.00; E78.0 Hyperlipidemia type: pure hypercholesterolemia Coding Level of Care Code Off vis,est,level 3 Diagnoses Atherosclerosis of [place] coronary artery of [place] heart without angina pectoris I25.10 Associated angina: without angina Coronary Disease-Associated Artery/Lesion type: [place] artery [place] vs. transplanted heart: [place] heart HTN (hypertension), benign I10 Pure hypercholesterolemia E78.00; E78.0 Hyperlipidemia type: pure hypercholesterolemia 12/18/17 1156 <Electronically signed by Alma Delia AMBROCIO> Date Alma Delia AMBROCIO 12/18/17 1800<Electronically signed by Julian Hay MD> Cosigner Signature: Date (if applicable) Julian Hay MD CC: Akira Pacheco LIVER PROFILE Collected: 12/13/2017 Status: F Source: MABELVALE 8:43 AM [facility] REPOSITORY TYPE CODE TESTS [...] 0.06 Performed By: #### L500.3400, L500.4100 #### [facility] [place], [address] LIPID PROFILE Collected: 12/13/2017 Status: F Source: MABELVALE 8:43 [facility] REPOSITORY TYPE CODE TESTS RESULT OUT OF [...] 38 Performed By: #### L500.3400, L500.4100 #### [facility] [address] [place], [address] ALLERGIES ALLERGIES DATE TYPE / CODE NAME / CODE REACTION SEVERITY SOURCE 10/17/2018 Drug doxycycline/F Hives Unknown [facility] Allergy/4160 [id number](RXN Hospital 33260(SNOMED ORM) Repository CT) 12/14/2017 Drug No Known Unknown [facility] Allergy/4160 Allergies/F00 Hospital 05433(SNOMED 5310299(RXNOR Repository CT) M) ENCOUNTERS ENCOUNTERS ADMIT/DISCHARGE ACCOUNT NUMBER ADMITTING ENCOUNTER LOCATION SOURCE CLASS 11/18/2018 [id number] Ambulatory [facility] ding:CR Repository 11/10/2018 [id number] Ambulatory [facility] ding:LAB Repository 10/24/2018 [id number] [facility] ding:LAB.FUT Repository URE 10/17/2018/10/17/20 [id number] Ambulatory [address] ding:LAB Repository 10/17/2018/10/17/20 [id number] Ambulatory [facility]: [facility] [facility] Repository 10/16/2018 [id number] Ambulatory [facility]: [facility] [facility] Repository 10/13/2018/10/13/20 [id number] [address] Repository :NO 10/10/2018 [id number] Ambulatory [facility] ding:LABSPEC Repository 10/08/2018 [id number] Ambulatory [facility] ding:LABSPEC Repository 10/07/2018 [id number] Ambulatory [facility] ding:LAB Repository 10/03/2018/10/03/20 [id number] Emergency [address] ding:ED Repository 10/02/2018 [id number] Ambulatory [facility] ding:LAB.FUT Repository URE 09/21/2018/10/01/20 [id number] [place], Inpatient [facility] [address] [facility] :CPCERoom: [id number]: 07/15/2018/07/15/20 [id number] Ambulatory BMSBuilding: [place] [facility] Repository 12/18/2017/12/18/19 [id number] Ambulatory BMSBuilding: [place] [facility] Repository 12/14/2017 [id number] Ambulatory BMSBuilding: [place] [facility] Repository 12/13/2017 [id number] Ambulatory [facility] ding:LAB Repository PAYERS PAYERS ENCOUNTER GUARANTOR PAYER SUBSCRIBER SOURCE 11/18/2018 LOVE Plasencia Primary LOVE [place] [id number] Insurance:HUMANA LINEBAUGHDOB: [facility] [place], MEDICARE [facility] [address]Qyd: Number: Repository [id number] () Date:[id number] [address]JA: 11/18/2018 Secondary LOVE Plasencia [place] Insurance:[place] MEDICAL LINEBAUGHDOB: [facility] Number: [id number] Hospital [id number] Repository Date:[id number] SERVICE [id number] [place], [place] [address]OH: [phone] X2003 11/18/2018 Tertiary NOT GIVENUNK [place] Insurance:SELF PAY [facility] Number: Effective Repository Date:2018-11-12 11/10/2018 LOVE Plasencia Primary LOVE E [facility] [id number] Insurance:HUMANA LINEBAUGHDOB: [facility] [place], MEDICARE PPOPolicy [id number] [facility] [place] [address]Pfk: Number: Repository [id number] (HP) Date:[id number] [address] [address]GE: 11/10/2018 Secondary LOVE E [facility] Insurance:[place] MEDICAL LINEBAUGHDOB: [facility] Number: [id number] [facility] [id number] Repository Date:8538-53-54WZV SERVICE [id number] [place], [place] [address]VT: [phone] X2003 11/10/2018 Tertiary NOT GIVENUNK Wild Insurance:SELF PAY [facility] Number: Effective Repository Date:2018-10-27 10/24/2018 LOVE E Primary LOVE E Wild [id number] Insurance:HUMANA LINEBAUGHDOB: [facility] ALEXANDER GOMEZ, MEDICARE PPOPolicy [id number] [place] [address]Noc: Number: Repository [id number] (HP) Date:1306-67-48AO [address] [address]NM: 10/24/2018 Secondary LOVE E Dugger Insurance:[place] MEDICAL LINEBAUGHDOB: [facility] Number: [id number] Hospital [id number] Repository Date:2868-09-73HUS SERVICE [id number] [place], [place] [address]BS: [phone] X2003 10/24/2018 Tertiary NOT GIVENUNK Dugger Insurance:SELF PAY [facility] Number: Effective Repository Date:2018-10-16 10/17/2018 LOVE E Primary LOVE E Dugger [id number] Insurance:HUMANA LINEBAUGHDOB: [facility] ALEXANDER GOMEZ, MEDICARE PPOPolicy [id number] [place] [address]Mgu: Number: Repository [id number] (HP) Date:5732-84-14QU [address] [address]FE: 10/17/2018 Secondary LOVE E Dug[place] LINEBAUGHDOB: [facility] Number: [id number] Hospital [id number] Repository Date:8263-65-76JYT SERVICE [id number] [place], [place] [address]AN: [phone] X2003 10/17/2018 Tertiary NOT GIVENUNK Wild Insurance:SELF PAY [facility] Number: Effective Repository Date:2018-10-17 10/17/2018 LOVE E Primary LOVE E Dugger [id number] Insurance:HUMANA LINEBAUGHDOB: [facility] ALEXANDER GOMEZ, MEDICARE PPOPolicy [id number] [address]Cyk: Number: Repository [id number] (HP) Date:6309-33-13SJ [address] [place] [address]CG: 10/17/2018 Secondary LOVE E Wild [place] LINEBAUGHDOB: [facility] Number: [id number] Hospital [id number] Repository Date:1684-67-45XXC SERVICE [id number] [place], [place] [address]ZD: [phone] X2003 10/17/2018 Tertiary NOT GIVENUNK Dugger Insurance:SELF PAY [facility] Number: Effective Repository Date:2018-10-17 10/16/2018 LOVE E Primary LOVE E Wild [id number] Insurance:HUMANA LINEBAUGHDOB: [facility] ALEXANDER GOMEZ, MEDICARE PPOPolicy [id number] Healthcare Facility [address]Ipi: Number: Repository [id number] (HP) Date:2808-93-20DB [address] [place] [address]BP: 10/16/2018 Secondary LOVE E Wild Insurance:[place] MED[place] LINEBAUGHDOB: [facility] Number: [id number] Hospital [id number] Repository Date:5173-52-65BER SERVICE [id number] [place], [place] [address]BC: [phone] X2003 10/16/2018 Tertiary NOT GIVENUNK Wild Insurance:SELF PAY [facility] Number: Effective Repository Date:2018-10-16 10/13/2018 LOVE E Primary LOVE Velarde LINEBAUGHDOB: Insurance:HUMANA LINEBAUGHDOB: [facility] CHOICE PPO PT APolicy [id number] Repository ALEXANDER GOMEZ, Number: Effective [place] Date:2018-08-28 [address]Omk: [id number] Name:[facility] ()Tel: (508) [address] [place] [address] 000-0000 ) [address]ZM: 10/13/2018 Secondary LOVE Velarde Insurance:HUMANA LINEBAUGHDOB: [facility] CHOICE PPO PT [facility] [id number] Repository Number: Effective Date:2018-08-283271-43-20Vfwh Name:[address] [address]FU: 10/10/2018 LOVE E Primary LOVE E Dugger [id number] Insurance:HUMANA LINEBAUGHDOB: [facility] JASON, MEDICARE PPOPolicy [id number] Healthcare Facility [address]Yrc: Number: Repository [id number] () Date:3543-96-09LU [address] [address]XL: 10/10/2018 Secondary LOVE E Wild Insurance:[place] MED[place] LINEBAUGHDOB: [facility] Number: [id number] Hospital [id number] Repository Date:0406-69-38MXA SERVICE [id number] [place], [place] [address]ZG: [phone] X2003 10/10/2018 Tertiary NOT GIVENUNK Wild Insurance:SELF PAY [facility] Number: Effective Repository Date:2018-10-10 10/08/2018 LOVE E Primary LOVE E Wild [id number] Insurance:HUMANA LINEBAUGHDOB: [facility] ALEXANDER GOMEZ, MEDICARE [facility] [id number] [place] [address]Lmv: Number: Repository [id number] (HP) Date:1107-70-66EI [address] [address]AX: 10/08/2018 Secondary LOVE E Wild Insurance:[place] MED[place] LINEBAUGHDOB: [facility] Number: [id number] Hospital [id number] Repository Date:3672-56-15IUG SERVICE [id number] [place], [place] [address]RP: [phone] X2003 10/08/2018 Tertiary NOT GIVENUNK Wild Insurance:SELF PAY [facility] Number: Effective Repository Date:2018-10-08 10/07/2018 LOVE E Primary LOVE E Dugger [id number] Insurance:HUMANA LINEBAUGHDOB: [facility] ALEXANDER GOMEZ, MEDICARE PPOPolicy [id number] [place] [address]Rsb: Number: Repository [id number] (HP) Date:0218-01-98SE [address] [address]YL: 10/07/2018 Secondary LOVE E Dugger [place] LINEBAUGHDOB: [facility] Number: [id number] Hospital [id number] Repository Date:4327-89-31QKX SERVICE [id number] [place], [place] [address]HN: [phone] X2003 10/07/2018 Tertiary NOT GIVENUNK Dugger Insurance:SELF PAY [facility] Number: Effective Repository Date:2018-10-07 10/03/2018 LOVE E Primary LOVE E Wild [id number] Insurance:HUMANA LINEBAUGHDOB: [facility] ALEXANDER GOMEZ, MEDICARE [facility] [id number] [place] [address]Amr: Number: Repository [id number] (HP) Date:7643-89-89FC [address] [place] [address]XQ: 10/03/2018 Secondary NOT GIVENUNK Dugger Insurance:SELF PAY [facility] Number: Effective Repository Date:2018-10-03 10/02/2018 LOVE E Primary LOVE [place] [id number] Insurance:HUMANA LINEBAUGHDOB: [facility] ALEXANDER GOMEZ, MEDICARE PPOPolicy [id number] [place] [address]Xxw: Number: Repository [id number] (HP) Date:6158-68-75KG [address] [place] [address]VQ: 10/02/2018 Secondary NOT GIVENUNK Wild Insurance:SELF PAY [facility] Number: Effective Repository Date:2018-10-02 09/21/2018 LOVE E Primary LOVE Velarde LINEBAUGHDOB: Insurance:HUMANA LINEBAUGHDOB: [facility] CHOICE PPO PT APolicy [id number] Repository ALEXANDER GOMEZ, Number: Effective [place] Date:2018-08-28 [address]Uig: [id number] Name:BPO BOX ()Tel: (318) [address] [place] [address] (RV) [address]IQ: 09/21/2018 Secondary LOVE Velarde Insurance:HUMANA LINEBAUGHDOB: [facility] CHOICE PPO PT BPolicy [id number] Repository Number: Effective Date:2018-08-281942-90-15Khqd Name:B[address] [place] [address]PX: 07/15/2018 LOVE E Primary OLVE [place] [id number] Insurance:HUMANA LINEBAUGHDOB: [facility] ALEXANDER GOMEZ, MEDICARE PPOPolicy [id number] [place] [address]Lfw: Number: Repository [id number] (HP) Date:6246-81-23AE [address] [place] [address]TA: 07/15/2018 Secondary NOT GIVENUNK Wild Insurance:SELF PAY [facility] Number: Effective Repository Date:2018-07-15 12/18/2017 LOVE E Primary LOVE Plasencia Dugger [id number] Insurance:HUMANA LINEBAUGHDOB: [facility] [place], MEDICARE PPOPolicy [id number] [place] [address]Qvp: Number: Repository [id number] (HP) Date:3734-58-28EI [address] [address]MN: 12/18/2017 Secondary NOT GIVENUNK Dugger Insurance:SELF PAY [facility] Number: Effective Repository Date:2017-10-03 12/14/2017 Love E Primary Love Plasencia Dugger [id number] Insurance:HUMANA LinebaughDOB: [facility] PPOPolicy [id number] [place] [address]Mcy: Number: Repository [id number] (HP) Date:8218-18-47RF [address] [address]BW: 12/14/2017 Secondary NOT GIVENUNK Wild Insurance:SELF PAY [facility] Number: Effective Repository Date:2017-12-14 12/13/2017 Love E Primary Love Plasencia Dugger [id number] Insurance:HUMANA LinebaughDOB: [facility] PPOPolicy [id number] [place] [address]Ocz: Number: Repository [id number] (HP) Date:2203-45-95UQ [address] [address]HZ: 12/13/2017 Secondary NOT GIVENUNK Wild Insurance:SELF PAY [facility] Number: Effective Repository Date:2017-12-13
== END ==
PROVIDERS: Family Provider Family Medicine; PCP Family Medicine; Referring Provider Internal Medicine Cardiovascular Disease; Visit Provider Internal Medicine Cardiovascular Disease
DX: Z95.2 Presence of prosthetic heart valve (principal); E78.5 Hyperlipidemia, unspecified; E11.9 Type 2 diabetes mellitus without complications; N28.9 Disorder of kidney and ureter, unspecified; I50.33 Acute on chronic diastolic (congestive) heart failure

== ENCOUNTER 2018-11-24 07:04 | Outpatient (RCR) | payer MEDICARE, OTHER, SELFPAY ==
[2018-11-18 13:22] VITALS: BMI 30.1
== END 2018-11-27 23:59 ==
LOC: CR 07:04
PROVIDERS: Family Provider Family Medicine; PCP Family Medicine; Referring Provider Internal Medicine Cardiovascular Disease; Visit Provider Internal Medicine Cardiovascular Disease
DX: Z79.01 Long term (current) use of 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 (principal); Z95.3 Presence of xenogenic heart valve; I11.0 Hypertensive heart disease with heart failure; I50.33 Acute on chronic diastolic (congestive) heart failure; I34.0 Nonrheumatic mitral (valve) insufficiency; I25.10 Atherosclerotic 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native coronary artery without angina pectoris; E78.5 Hyperlipidemia, unspecified; Z95.5 Presence of coronary angioplasty implant and graft; Z95.2 Presence of prosthetic heart valve
CPT/HCPCS: 36415; 85610; 93798

== ENCOUNTER 2018-11-24 10:03 | Outpatient (RCR) | payer MEDICARE, OTHER, SELFPAY ==
[2018-10-31 11:17] LABS: International Normalized Ratio 1.5; Prothrombin Time (Protime)PT. 18.1 SECONDS (11.7-14.9)
[2018-11-10 11:22] LABS: International Normalized Ratio 1.8
[2018-11-24 11:08] LABS: International Normalized Ratio 1.9; Prothrombin Time (Protime)PT. 21.6 SECONDS (11.7-14.9)
== END 2018-11-24 11:03 | disposition home or self-care (01) ==
LOC: LAB 10:03
PROVIDERS: Family Provider Family Medicine; PCP Family Medicine; Referring Provider Internal Medicine Cardiovascular Disease; Visit Provider Internal Medicine Cardiovascular Disease
DX: Z79.01 Long term (current) use of 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 (principal)
CPT/HCPCS: 36415; 85610

== ENCOUNTER → 2018-12-08 09:58 | Outpatient (CLI) | payer MEDICARE, OTHER, SELFPAY ==
[2018-11-18 13:22] VITALS: BMI 30.1
[2018-12-08 11:21] LABS: International Normalized Ratio 2.1; Prothrombin Time (Protime)PT. 23.6 SECONDS (11.7-14.9)
[2018-12-08 12:12] LABS: Anion Gap 12 (5-15); BUN 34 mg/dL (7-18); BUN/Creat Ratio 24.8 RATIO (10-20); Calcium,Total 8.8 mg/dL (8.5-10.1); Chloride 103 mmol/L (98-107); Creatinine, Serum 1.37 mg/dL (0.70-1.30); EST Glomerular Filtration Rate 54 mL/min (>60); Est Glom Filt Rate - Afr Amer 66 mL/min (>60); Glucose 178 mg/dL (74-106); Potassium 4.6 mmol/L (3.5-5.1); Sodium Level 138 mmol/L (136-145)
== END ==
PROVIDERS: Nurse Practitioner Family; Family Provider Family Medicine; PCP Family Medicine; Referring Provider Physician Assistant Medical; Visit Provider Physician Assistant Medical
DX: I25.10 Atherosclerotic 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native coronary artery without angina pectoris (principal); I10 Essential (primary) hypertension; Z79.01 Long term (current) use of 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
CPT/HCPCS: 36415; 80048; 85610

== ENCOUNTER 2018-12-24 09:15 | Outpatient (RCR) | payer MEDICARE, OTHER, SELFPAY ==
[2018-11-18 13:22] VITALS: BMI 30.1
--- NOTE | 2018-12-19 08:14 | CR.ITP_ITS ---
Exercise - 30-day Assessment - Visit Date of Eval: 12/19/18 Session #:: 8 - patient has missed two sessions - Stages of Change Stages of Change:: Contemplate - not really enthusiastic about physician wanting him to do CR again. - Exercise Prescription Mode:: Treadmill, Biodyne, Rower, NuStep Frequency (x/week): 3 Duration:: 30-45 min METs - Progression: 0.5-1 MET as tolerated: 3.5 Target Heart Rate:: 104-112 with max HR 81 - Hypertension Resting Blood Pressure:: 130/62 Peak Exercise Blood Pressure:: 150/60 Medication Changes:: Yes - Intervention Home Exercise/Activity Goal:: Moderate Exercise 30 min/day x 5 days/wk - Education Goals:: Warm-up, RPE SEAN Scale, S/S, Safe Exercise, Self-Monitoring - Exercise Program Goals Exercise Program Goals: Aerobic Activity >30 min Nutrition - Initial Assessment - Program Goals Nutrition Program Goals: LDL <70. Total Cholesterol <200. HDL >45. Triglycerides <150. HgbA1C <7%. BMI <25 - Diabetes Do you monitor your blood sugar at home?: Yes Nutrition - 30-Day Assessment - Program Goals Nutrition Program Goals: LDL <70. Total Cholesterol <200. HDL >45. Triglycerides <150. HgbA1C <7%. BMI <25 - Visit Date of Eval: 12/19/18 - Stages of Change Stages of Change:: Contemplate, Action - Lipids Has the patient seen the dietitian?: No - Diabetes Diabetes:: Yes Insulin: No Non-Insulin Dependent?: No - Weight Management Weight:: 224 lb - increased 4 pounds since starting CR. - Intervention Referral to dietitian:: No Referral to Diabetic Clinic:: Yes Will attend diet classes:: Yes - Education Attended class for:: Signs & symptoms of hypoglycemia, Signs & symptoms of hyperglycemia, Relate diabetes to coronary artery disease, Healthy eating Tobacco - Initial Assessment - Program Goals Tobacco Program Goals: Complete smoking cessation. Attend education classes. Improve Knowledge Test score - Learning Barriers Learning Barriers: Vision, Ready to Learn Tobacco - 30-Day Assessment - Program Goals Tobacco Program Goals: Complete smoking cessation. Attend education classes. Improve Knowledge Test score - Stage of Change Stages of Change:: Contemplate - Learning Barriers Learning Barriers: Declined education - Family Support Do you have family support?: Yes - Tobacco Use Tobacco Use: Non-smoker Do you use smokeless tobacco?: No - Intervention Smoking Cessation Referral:: No Individual Education/Counseling:: No Education Schedule Given:: Yes - Education Attended class for:: Coronary artery disease, Risk factors, Sexuality, Medical compliance, Cardiac A&P, Angina signs & symptoms Psychosocial - Initial Assess - Target Goals Target Goals: Assess presence or absence of depression. Using a valid screening tool, maximizes coping skills. Positive support system - Psychosocial Test Tool Used:: HANDS Depression Questionnaire - Assistive Devices Fall Risk Assessed:: Yes Psychosocial - 30-Day Assess - Target Goals Target Goals: Assess presence or absence of depression. Using a valid screening tool, maximizes coping skills. Positive support system - Stages of Change Stages of Change:: Contemplate, Action - Psychosocial Test Tool Used:: HANDS Depression Questionnaire - Intervention PS - Interventions: Yes Attend Stress Management Classes, Yes Uses Stress Management Skills, No Referral to Mental Health, No Referral to [facility] Case Management, No Referral to Physician - Education Attended classes for:: Coping techniques, Signs & symptoms of depression, Stress management, Relaxation techniques - Patient/Program Goal Preventative Medication(s):: Aspirin, Clopidogrel, Beta brisa, Statin/lipid - Assistive Devices Assistive Devices:: None Fall Risk Assessed:: Yes Patient Health Questionnaire 30-Day Re-eval Assessment 1. Little interest or pleasure in doing things: Not at all 2. Feeling down, depressed, or hopeless: Not at all 3. Trouble falling or staying asleep, or sleeping too much: Not at all 4. Feeling tired or having little energy: Not at all 5. Poor appetite or overeating: Not at all 6. Feeling bad about yourself -- or that you are a failure or have let yourself or your family down: Not at all 7. Trouble concentrating on things, such as reading the newspaper or watching television: Not at all 8. Moving or speaking so slowly that other people could have noticed. Or the opposite - being so fidgety or restless that you have been moving around a lot more than usual: Not at all 9. Thoughts that you would be better off , or of hurting yourself in some way: Not at all Total Score: 0 Self-Efficacy 30-Day Re-eval Assessment We would like to know how confident you are in doing certain activities. Please select your confidence level for:: Select your confidence level for the following using the scale 1-10 where 1 is not at all confident and 10 is totally confident. Your score is the average of all 6 responses. Fatigue: How confident are you that you can keep the fatigue caused by your disease from interfering with the things you want to do? Select Number: 9 Physical Discomfort or Pain: How confident are you that you can keep the physical discomfort or pain of your disease from interfering with the things you want to do? Select Number: 7 Emotional Distress: How confident are you that you can keep the emotional distress caused by your disease from interfering with the things you want to do? Select Number: 10 Other Symptoms or Health Problems: How confident are you that you can keep other symptoms or health problems from interfering with the things you want to do? Select Number: 10 Different Tasks and Activities: How confident are you that you can do the different tasks and activities needed to manage your health condition so as to reduce your need to see a doctor? Select Number: 8 Medication: How confident are you that you can do things other than just taking medication to reduce how much your illness affects your everyday life? Select Number: 10 Total Score:: 9
[2018-12-19 08:17] VITALS: BP 130/62; BP 150/60
== END 2018-12-25 23:59 ==
LOC: CR 09:15
PROVIDERS: Family Provider Family Medicine; PCP Family Medicine; Referring Provider Internal Medicine Cardiovascular Disease; Visit Provider Internal Medicine Cardiovascular Disease
DX: Z79.01 Long term (current) use of 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 (principal); Z95.3 Presence of xenogenic heart valve; I11.0 Hypertensive heart disease with heart failure; I50.33 Acute on chronic diastolic (congestive) heart failure; I34.0 Nonrheumatic mitral (valve) insufficiency; I25.10 Atherosclerotic 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native coronary artery without angina pectoris; E78.5 Hyperlipidemia, unspecified; Z95.5 Presence of coronary angioplasty implant and graft; Z95.2 Presence of prosthetic heart valve
CPT/HCPCS: 36415; 80048; 85610; 93798

== ENCOUNTER 2019-01-23 09:15 | Outpatient (RCR) | payer MEDICARE, OTHER, SELFPAY ==
[2018-12-26 01:26] VITALS: BP 130/62; BP 150/60; BMI 30.1
--- NOTE | 2019-01-16 11:53 | PCM.CR.ITP ---
Exercise - 60-Day Assessment - Visit Date of Eval: 01/16/19 Session #:: 20 - Stages of Change Stages of Change:: Action - Physician Prescribed Exercise Modalities: Treadmill, Airdyne, NuStep Frequency (days/week): 3 Duration (Minutes):: 30-45 Intensity: 60-80% age predicted maximum heart rate reserve METs - Progression: 0.5-1.0 MET, RPE 11-14 WEEK: 4.5 Target Heart Rate:: 104-112 - Hypertension Resting Blood Pressure:: 148/68 Peak Exercise Blood Pressure:: 148/68 Medication Changes:: Yes - Intervention Home Exercise/Activity Goal:: Moderate Exercise 30 min/day x 5 days/wk - Education Goals:: Warm-up, RPE SEAN Scale, S/S, Safe Exercise, Self-Monitoring - Exercise Program Goals Exercise Program Goals: Aerobic Activity >30 min Nutrition - Initial Assessment - Program Goals Nutrition Program Goals: LDL <70. Total Cholesterol <200. HDL >45. Triglycerides <150. HgbA1C <7%. BMI <25 - Diabetes Do you monitor your blood sugar at home?: Yes Nutrition - 60-Day Assessment - Program Goals Nutrition Program Goals: LDL <70. Total Cholesterol <200. HDL >45. Triglycerides <150. HgbA1C <7%. BMI <25 - Visit Date of Eval: 01/16/19 - Stages of Change Stages of Change:: Action - Lipids Has the patient seen the dietitian?: No - Diabetes Diabetes:: No Insulin: No Non-Insulin Dependent?: No - Weight Management Weight:: 226 lb - Intervention Referral to dietitian:: No Referral to Diabetic Clinic:: No Will attend diet classes:: Yes - Education Attended class for:: Healthy eating Tobacco - Initial Assessment - Program Goals Tobacco Program Goals: Complete smoking cessation. Attend education classes. Improve Knowledge Test score - Learning Barriers Learning Barriers: Vision, Ready to Learn Tobacco - 60-Day Assessment - Program Goals Tobacco Program Goals: Complete smoking cessation. Attend education classes. Improve Knowledge Test score - Stage of Change Stages of Change:: Action - Learning Barriers Learning Barriers: Declined education - Family Support Do you have family support?: Yes - Tobacco Use Tobacco Use: Non-smoker Do you use smokeless tobacco?: No - Intervention Smoking Cessation Referral:: No Individual Education/Counseling:: No Education Schedule Given:: Yes - Education Attended class for:: Coronary artery disease, Risk factors, Sexuality, Medical compliance, Cardiac A&P, Angina signs & symptoms Psychosocial - Initial Assess - Target Goals Target Goals: Assess presence or absence of depression. Using a valid screening tool, maximizes coping skills. Positive support system - Psychosocial Test Tool Used:: HANDS Depression Questionnaire - Assistive Devices Fall Risk Assessed:: Yes Psychosocial - 60-Day Assess - Target Goals Target Goals: Assess presence or absence of depression. Using a valid screening tool, maximizes coping skills. Positive support system - Stages of Change Stages of Change:: Action - Psychosocial Test Tool Used:: HANDS Depression Questionnaire - Intervention PS - Interventions: Yes Attend Stress Management Classes, Yes Uses Stress Management Skills, No Referral to Mental Health, No Referral to [facility] Case Management, No Referral to Physician - Education Attended classes for:: Coping techniques, Signs & symptoms of depression, Stress management, Relaxation techniques - Patient/Program Goal Preventative Medication(s):: Aspirin, Clopidogrel, Beta brisa, Statin/lipid - Assistive Devices Assistive Devices:: None Fall Risk Assessed:: Yes Patient Health Questionnaire 60-Day Re-eval Assessment 1. Little interest or pleasure in doing things: Not at all 2. Feeling down, depressed, or hopeless: Not at all 3. Trouble falling or staying asleep, or sleeping too much: Not at all 4. Feeling tired or having little energy: Not at all 5. Poor appetite or overeating: Not at all 6. Feeling bad about yourself -- or that you are a failure or have let yourself or your family down: Not at all 7. Trouble concentrating on things, such as reading the newspaper or watching television: Not at all 8. Moving or speaking so slowly that other people could have noticed. Or the opposite - being so fidgety or restless that you have been moving around a lot more than usual: Not at all 9. Thoughts that you would be better off , or of hurting yourself in some way: Not at all How difficult have these problems made it for you to do your work, take care of things at home, or get along with other people?: Not difficult at all Total Score: 0 Self-Efficacy 60-Day Re-eval Assessment We would like to know how confident you are in doing certain activities. Please select your confidence level for:: Select your confidence level for the following using the scale 1-10 where 1 is not at all confident and 10 is totally confident. Your score is the average of all 6 responses. Fatigue: How confident are you that you can keep the fatigue caused by your disease from interfering with the things you want to do? Select Number: 10 Physical Discomfort or Pain: How confident are you that you can keep the physical discomfort or pain of your disease from interfering with the things you want to do? Select Number: 10 Emotional Distress: How confident are you that you can keep the emotional distress caused by your disease from interfering with the things you want to do? Select Number: 10 Other Symptoms or Health Problems: How confident are you that you can keep other symptoms or health problems from interfering with the things you want to do? Select Number: 10 Different Tasks and Activities: How confident are you that you can do the different tasks and activities needed to manage your health condition so as to reduce your need to see a doctor? Select Number: 10 Medication: How confident are you that you can do things other than just taking medication to reduce how much your illness affects your everyday life? Select Number: 10 Total Score:: 10
[2019-01-16 11:58] VITALS: BP 148/68
== END 2019-01-25 23:59 ==
LOC: CR 09:15
PROVIDERS: Family Provider Family Medicine; PCP Family Medicine; Referring Provider Internal Medicine Cardiovascular Disease; Visit Provider Internal Medicine Cardiovascular Disease
DX: Z79.01 Long term (current) use of 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 (principal); Z95.3 Presence of xenogenic heart valve; I11.0 Hypertensive heart disease with heart failure; I50.33 Acute on chronic diastolic (congestive) heart failure; I34.0 Nonrheumatic mitral (valve) insufficiency; I25.10 Atherosclerotic 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native coronary artery without angina pectoris; E78.5 Hyperlipidemia, unspecified; Z95.5 Presence of coronary angioplasty implant and graft; Z95.2 Presence of prosthetic heart valve
CPT/HCPCS: 93798

== ENCOUNTER 2019-01-29 11:39 | Emergency (ER) | payer MEDICARE, SELFPAY ==
[2019-01-26 01:08] VITALS: BMI 31.2
[2019-01-29 11:41] VITALS: BP 165/76; PULSE 70; RESP 17; TEMP 36.9; O2SAT 96; BMI 32.1
[2019-01-29] MEDS: Lidocaine/Epi/Tetracaine 50 ML 1 APPLIC TOPICAL (11:45)
--- NOTE | 2019-01-29 11:51 | ED.VIS.GEN ---
History of Present Illness Detail of Chief Complaint: Bleeding from scrotum Informant: Patient Onset: Today Context: Sudden Onset Timing: Continuous Quality: Patient scratched his scrotum. When he went to use restroom noted bleeding Location: Left side of scrotum Current Severity: Mild Maximum Severity: Moderate Worsened by: Patient on Plavix Relieved by: Nothing Associated Symptoms: Nothing Narrative: Patient is an elderly male who states he is scrotum was pruritic. He scratched his scrotum. When he went to use the restroom he noted that his underwear was full of blood. He is on no anticoagulant. He is not been on anticoagulant since the end of December. He has no other complaints. - Past Medical History (1) Acute on chronic diastolic (congestive) heart failure Status: Chronic (2) Atherosclerotic 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[place] coronary artery without angina pectoris Status: Chronic Comment: PCI-RADHA-OM1 w/ 2.75 x 23 mm Promus Stent , Mid Cx w/ 3.0 x 15 mm Promus Stent and Prox LAD w/ 2.5 x 28 mm Promus Stent 03/09/2010 (3) Essential (primary) hypertension Status: Chronic (4) Hyperlipidemia Status: Chronic (5) Non-rheumatic mitral regurgitation Status: Chronic Comment: Flail anterior leaflet (6) History of mitral valve replacement with bioprosthetic valve Status: Resolved Comment: 27 mm Medtronic Weldon Tissue Valve Past Medical History - Allergies and Home Meds Allergies/Adverse Reactions: Allergies doxycycline Allergy (Verified 01/29/19 11:40) hives Primary Care Physician: Akira Pacheco MD [Primary Care Provider] - Prior records reviewed: Yes Surgical History: noncontributory Lives: Spouse/ Significant Other Smoking Status: Former smoker Alcohol: None Review of Systems General: Denies: Chills, Fever Cardiovascular: Denies: Chest pain Respiratory: Denies: Dyspnea Gastrointestinal: Denies: Abdominal pain, Nausea, Vomiting, Diarrhea, Melena, Hematochezia Genitourinary: Denies: Dysuria, Hematuria, Frequency Musculoskeletal: Denies: Myalgias, Arthralgias, Back pain, Extremity Pain Skin: Reports: Abrasions, Wounds. Denies: Rash Hematologic: Reports: Easy bruising, Easy bleeding. Denies: Lymphadenopathy Allergy: Denies: Uticaria, Swelling of the mouth Physical Exam Vital Signs/Narrative: Vital Signs Temp Pulse Resp BP Pulse Ox 01/29/19 11:41 98.5 F 70 17 165/76 H 96 Inital Vital Signs reviewed: Yes General: Well nourished, Well developed, No Acute Distress Cardiovascular: Regular rate, Regular rhythm Respiratory: No distress : - - Patient has bleeding from his scrotum on the left side. There is a small puncture wound and what appears to be a varicose vein. Diagnostic/Tx/Re-eval - Medical Decision Making Will anesthetize area with let. Will ligate varicose vein with absorbable stitches. A xarqog-of-pknan stitch was placed. There is no further bleeding. Patient be discharged home ED Disposition - Plan for ED Patient: Disposition: Home or Assisted Living Diagnosis: Bleeding varicose vein scrotum Instructions: ED Wound Care Referrals: Akira Pacheco MD [Primary Care Provider] - As Needed
--- NOTE | 2019-01-29 11:55 | ED.DCSUM_ITS ---
History of Present Illness Detail of Chief Complaint: Bleeding from scrotum Informant: Patient Onset: Today Context: Sudden Onset Timing: Continuous Quality: Patient scratched his scrotum. When he went to use restroom noted bleeding Location: Left side of scrotum Current Severity: Mild Maximum Severity: Moderate Worsened by: Patient on Plavix Relieved by: Nothing Associated Symptoms: Nothing Narrative: Patient is an elderly male who states he is scrotum was pruritic. He scratched his scrotum. When he went to use the restroom he noted that his underwear was full of blood. He is on no anticoagulant. He is not been on anticoagulant sin ce the end of December. He has no other complaints. - Past Medical History (1) Acute on chronic diastolic (congestive) heart failure Status: Chronic (2) Atherosclerotic 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[place] coronary artery without angina pectoris Status: Chronic Comment: PCI-RADHA-OM1 w/ 2.75 x 23 mm Promus Stent , Mid Cx w/ 3.0 x 15 mm Promus Stent and Prox LAD w/ 2.5 x 28 mm Promus Stent 03/09/2010 (3) Essential (primary) hypertension Status: Chronic (4) Hyperlipidemia Status: Chronic (5) Non-rheumatic mitral regurgitation Status: Chronic Comment: Flail anterior leaflet (6) History of mitral valve replacement with bioprosthetic valve Status: Resolved Comment: 27 mm Medtronic Weldon Tissue Valve Past Medical History - Allergies and Home Meds Allergies/Adverse Reactions: Allergies doxycycline Allergy (Verified 01/29/19 11:40) hives Primary Care Physician: Akira Pacheco MD [Primary Care Provider] - Prior records reviewed: Yes Surgical History: noncontributory Lives: Spouse/ Significant Other Smoking Status: Former smoker Alcohol: None Review of Systems General: Denies: Chills, Fever Cardiovascular: Denies: Chest pain Respiratory: Denies: Dyspnea Gastrointestinal: Denies: Abdominal pain, Nausea, Vomiting, Diarrhea, Melena, Hematochezia Genitourinary: Denies: Dysuria, Hematuria, Frequency Musculoskeletal: Denies: Myalgias, Arthralgias, Back pain, Extremity Pain Skin: Reports: Abrasions, Wounds. Denies: Rash Hematologic: Reports: Easy bruising, Easy bleeding. Denies: Lymphadenopathy Allergy: Denies: Uticaria, Swelling of the mouth Physical Exam Vital Signs/Narrative: Vital Signs Temp Pulse Resp BP Pulse Ox 01/29/19 11:41 98.5 F 70 17 165/76 H 96 Inital Vital Signs reviewed: Yes General: Well nourished, Well developed, No Acute Distress Cardiovascular: Regular rate, Regular rhythm Respiratory: No distress : - - Patient has bleeding from his scrotum on the left side. There is a small puncture wound and what appears to be a varicose vein. Diagnostic/Tx/Re-eval - Medical Decision Making Will anesthetize area with let. Will ligate varicose vein with absorbable stitches. A [id number]-[id number] stitch was placed. There is no further bleeding. Patient be discharged home ED Disposition - Plan for ED Patient: Disposition: Home or Assisted Living Diagnosis: Bleeding varicose vein scrotum Instructions: ED Wound Care Referrals: Akira Pacheco MD [Primary Care Provider] - As Needed
== END 2019-01-29 14:00 | disposition home or self-care (01) ==
PROVIDERS: Emergency Provider Emergency Medicine; Family Provider Family Medicine; PCP Family Medicine
DX: I86.1 Scrotal varices (principal); I11.0 Hypertensive heart disease with heart failure; I50.32 Chronic diastolic (congestive) heart failure; I25.10 Atherosclerotic 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native coronary artery without angina pectoris; I34.0 Nonrheumatic mitral (valve) insufficiency; E78.5 Hyperlipidemia, unspecified; Z95.4 Presence of other heart-valve replacement; Z79.82 Long term (current) use of aspirin; Z79.899 Other long term (current) drug therapy; Z87.891 Personal history of nicotine dependence
CPT/HCPCS: 55530; 99284

== ENCOUNTER 2019-02-23 09:15 | Outpatient (RCR) | payer MEDICARE, OTHER, SELFPAY ==
[2019-01-26 01:08] VITALS: BP 148/68; BMI 31.2
--- NOTE | 2019-02-16 06:43 | CR.ITP_ITS ---
General Information - General Information Admitting Diagnosis: heart valve repair/replacement - Education/Goals Barriers to Learning: None Cardiac Rehabilitation Goals: 1. Maintain the individual as the primary focus of care. 2. To improve the patient's quality of life. 3. Identification of cardiac risk factors and provide cardiac risk factor management. 4. Enhance the psychosocial status of the patient. 5. Reconditioning enough to allow the patient to resume customary activities. 6. Control symptoms of cardiac disease Scale for measuring improvement of personal goals: Enter appropriate number in Comments. 2 = Unchanged. 3 = Slightly Better. 4 = Moderate Improvement. 5 = Met my Goal Exercise - 90-Day Assessment - Visit Date of Eval: 02/16/19 Session #:: 32 - Stages of Change Stages of Change:: Action - Physician Prescribed Exercise Modalities: Treadmill, Biodyne, NuStep Frequency (days/week): 3 Duration (Minutes):: 30-45 Intensity: 60-80% age predicted maximum heart rate reserve METs - Progression: 0.5-1.0 MET, RPE 11-14 WEEK: 4.5 Target Heart Rate:: 104-112 Max HR 81 - Hypertension Resting Blood Pressure:: 142/70 Peak Exercise Blood Pressure:: 160/82 Medication Changes:: Yes - 4/10 increase Losartan to 50 mg 1 time daily - Intervention Home Exercise/Activity Goal:: Moderate Exercise 30 min/day x 5 days/wk - Education Goals:: Warm-up, RPE SEAN Scale, S/S, Safe Exercise, Self-Monitoring - Exercise Program Goals Exercise Program Goals: Aerobic Activity >30 min, B/P <130/80 Nutrition - Initial Assessment - Program Goals Nutrition Program Goals: LDL <70. Total Cholesterol <200. HDL >45. Triglycerides <150. HgbA1C <7%. BMI <25 - Diabetes Do you monitor your blood sugar at home?: Yes Nutrition - 90-Day Assessment - Program Goals Nutrition Program Goals: LDL <70. Total Cholesterol <200. HDL >45. Triglycerides <150. HgbA1C <7%. BMI <25 - Visit Date of Eval: 02/16/19 - Stages of Change Stages of Change:: Action - Lipids Has the patient seen the dietitian?: No - Diabetes Diabetes:: Yes Random Blood Glucose:: 176 - Weight Management Weight:: 103.419 kg - Intervention Referral to dietitian:: No Referral to Diabetic Clinic:: No Will attend diet classes:: Yes - Education Attended class for:: Signs & symptoms of hypoglycemia, Signs & symptoms of hyperglycemia, Relate diabetes to coronary artery disease, Healthy eating Tobacco - Initial Assessment - Program Goals Tobacco Program Goals: Complete smoking cessation. Attend education classes. Improve Knowledge Test score - Learning Barriers Learning Barriers: Vision, Ready to Learn Tobacco - 90-Day Assessment - Program Goals Tobacco Program Goals: Complete smoking cessation. Attend education classes. Improve Knowledge Test score - Stage of Change Stages of Change:: Action - Learning Barriers Learning Barriers: Participates in education - Family Support Do you have family support?: Yes - Tobacco Use Tobacco Use: Non-smoker Do you use smokeless tobacco?: No - Intervention Smoking Cessation Referral:: No Individual Education/Counseling:: No Education Schedule Given:: Yes - Education Attended class for:: Tobacco triggers, Coronary artery disease, Risk factors, Sexuality, Medical compliance, Cardiac A&P, Angina signs & symptoms Psychosocial - Initial Assess - Target Goals Target Goals: Assess presence or absence of depression. Using a valid screening tool, maximizes coping skills. Positive support system - Psychosocial Test Tool Used:: HANDS Depression Questionnaire - Assistive Devices Fall Risk Assessed:: Yes Psychosocial - 90-Day Assess - Target Goals Target Goals: Assess presence or absence of depression. Using a valid screening tool, maximizes coping skills. Positive support system - Stages of Change Stages of Change:: Action - Psychosocial Test Tool Used:: HANDS Depression Questionnaire - Intervention PS - Interventions: Yes Attend Stress Management Classes, Yes Uses Stress Management Skills, No Referral to Mental Health, No Referral to [facility] Case Management, No Referral to Physician - Education Attended classes for:: Coping techniques, Signs & symptoms of depression, Stress management, Relaxation techniques - Assistive Devices Assistive Devices:: None Fall Risk Assessed:: Yes Patient Health Questionnaire 90-Day Re-eval Assessment 1. Little interest or pleasure in doing things: Not at all 2. Feeling down, depressed, or hopeless: Not at all 3. Trouble falling or staying asleep, or sleeping too much: Not at all 4. Feeling tired or having little energy: Not at all 5. Poor appetite or overeating: Not at all 6. Feeling bad about yourself -- or that you are a failure or have let yourself or your family down: Not at all 7. Trouble concentrating on things, such as reading the newspaper or watching television: Not at all 8. Moving or speaking so slowly that other people could have noticed. Or the opposite - being so fidgety or restless that you have been moving around a lot more than usual: Not at all 9. Thoughts that you would be better off , or of hurting yourself in some way: Not at all How difficult have these problems made it for you to do your work, take care of things at home, or get along with other people?: Not difficult at all Total Score: 0 Self-Efficacy 90-Day Re-eval Assessment We would like to know how confident you are in doing certain activities. Please select your confidence level for:: Select your confidence level for the following using the scale 1-10 where 1 is not at all confident and 10 is totally confident. Your score is the average of all 6 responses. Fatigue: How confident are you that you can keep the fatigue caused by your disease from interfering with the things you want to do? Select Number: 9 Physical Discomfort or Pain: How confident are you that you can keep the physical discomfort or pain of your disease from interfering with the things you want to do? Select Number: 7 Emotional Distress: How confident are you that you can keep the emotional distress caused by your disease from interfering with the things you want to do? Select Number: 10 Other Symptoms or Health Problems: How confident are you that you can keep other symptoms or health problems from interfering with the things you want to do? Select Number: 10 Different Tasks and Activities: How confident are you that you can do the different tasks and activities needed to manage your health condition so as to reduce your need to see a doctor? Select Number: 8 Medication: How confident are you that you can do things other than just taking medication to reduce how much your illness affects your everyday life? Select Number: 10 Total Score:: 9
[2019-02-16 06:46] VITALS: BP 142/70; BP 160/82
== END 2019-02-24 23:59 ==
LOC: CR 09:15
PROVIDERS: Family Provider Family Medicine; PCP Family Medicine; Referring Provider Internal Medicine Cardiovascular Disease; Visit Provider Internal Medicine Cardiovascular Disease
DX: Z79.01 Long term (current) use of 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 (principal); Z95.3 Presence of xenogenic heart valve; I11.0 Hypertensive heart disease with heart failure; I50.33 Acute on chronic diastolic (congestive) heart failure; I34.0 Nonrheumatic mitral (valve) insufficiency; I25.10 Atherosclerotic 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native coronary artery without angina pectoris; E78.5 Hyperlipidemia, unspecified; Z95.5 Presence of coronary angioplasty implant and graft; Z95.2 Presence of prosthetic heart valve
CPT/HCPCS: 93798

== ENCOUNTER → 2019-07-07 11:19 | Outpatient (CLI) | payer MEDICARE, OTHER, SELFPAY ==
[2019-07-07 10:46] VITALS: BMI 32.3
[2019-07-07 13:00] LABS: AST(SGOT) 33 U/L (15-37); Alanine Aminotransfer ALT/SGPT 42 U/L (16-61); Albumin, Serum 3.3 g/dL (3.2-5.0); Alkaline Phosphatase 85 U/L (45-117); Bilirubin, Direct 0.11 mg/dL (0.00-0.30); Cholesterol 104 mg/dL (200); Globulin 4.6 g/dL (2.2-4.2); High Density Lipoprotein 33 mg/dL; Protein, Total 7.9 g/dL (6.4-8.2); Triglycerides 174 mg/dL; Very Low Density Lipoprotein 35 mg/dL (5-40)
== END ==
PROVIDERS: Family Provider Family Medicine; PCP Family Medicine; Referring Provider Internal Medicine Cardiovascular Disease; Visit Provider Internal Medicine Cardiovascular Disease
DX: E78.00 Pure hypercholesterolemia, unspecified (principal)
CPT/HCPCS: 36415; 80061; 80076

== ENCOUNTER 2019-08-18 07:05 | Day surgery (SDC) | payer MEDICARE, OTHER, SELFPAY ==
--- NOTE | 2019-07-15 01:45 | HP_ITS ---
Intake Vital Signs 07/15/19 Body Mass Index (BMI) 32.3 07/15/19 Height 5 ft 11 in 07/15/19 Weight: 230 lb 07/15/19 Body Mass Index (BMI) 32.1 07/15/19 Blood Pressure 148/76 H 07/15/19 Respiratory Rate 16 07/15/19 Pulse Rate 64 07/15/19 Pulse Source Monitor 07/15/19 Temperature 98.2 F 07/15/19 Pulse Ox 98 07/01/19 Body Mass Index (BMI) 32.1 Intake Visit Reasons: C-Scope Claims Consultant Required: No Accompanied by: Is patient in pain?: No Allergies doxycycline Allergy (Verified 07/15/19 13:09) hives Medications aspirin 81 mg tablet,delayed release 81 mg PO QDAY tab 12/11/17 [History Confirmed 07/15/19] insulin aspart U-100 100 unit/mL subcutaneous cartridge See Rx Instructions SC BID 12/18/17 [History Confirmed 07/15/19] insulin glargine (U-100) 100 unit/mL (3 mL) subcutaneous pen See Rx Instructions SC QDAY 12/18/17 [History Confirmed 07/15/19] glipizide 10 mg tablet 10 mg PO BID 10/16/18 [History Confirmed 07/15/19] metformin 1,000 mg tablet 500 mg PO BID tab 10/17/18 [History Confirmed 07/15/19] metoprolol tartrate 50 mg tablet 50 mg PO BID #180 tab 10/27/18 [Rx Confirmed 07/15/19] atorvastatin 20 mg tablet 20 mg PO QHS #30 tab 10/31/18 [Rx Confirmed 07/15/19] clopidogrel 75 mg tablet 75 mg PO DAILY 07/07/19 [History Confirmed 07/15/19] furosemide 40 mg tablet 20 mg PO DAILY tab 07/07/19 [History Confirmed 07/15/19] hydrochlorothiazide 25 mg tablet 25 mg PO DAILY 07/13/19 [History Confirmed 07/15/19] losartan 100 mg tablet 100 mg PO DAILY #30 tab 07/13/19 [Rx Confirmed 07/15/19] [facility] Medical History Acute on chronic diastolic (congestive) heart failure (Chronic) Non-rheumatic mitral regurgitation (Chronic) Atherosclerotic 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hoh coronary artery without angina pectoris (Chronic) Hyperlipidemia (Chronic) Essential (primary) hypertension (Chronic) Hyperlipidemia (Chronic) Renal insufficiency (Acute) Diabetes mellitus type II, controlled (Chronic) Ischemic cardiomyopathy (Chronic) Occlusion and stenosis of right carotid artery (Chronic) Old myocardial infarction (Resolved) Surgical History History of mitral valve replacement with bioprosthetic valve (Resolved 09/26/18) History of coronary artery stent placement (Resolved 03/09/10) History of left heart catheterization (Resolved 09/22/18) Family History Father CAD (coronary artery disease) Hx CABG x4 vessels Myocardial infarction, Onset Age: 50 Mother Breast cancer Social History (Updated 07/15/19 @ 13:45 by Javon Pedersen MD) Smoking Status: Former smoker how long ago did patient quit smokin alcohol intake: current Alcohol type: beer substance use type: does not use caffeine: Yes Type: coffee what type of physical activity do you participate in: other details: occasional rowing machine, biking frequency: other details: occasional rowing machine, biking duration: other details: occasional rowing machine, biking seatbelt use: always do you feel safe at home: Yes HPI HPI HPI: LOVE PHELAN, is a 74 M who presents to the office today for HPI HPI Surgical H&P: Yes HPI: LOVE PHELAN, is a 74 M who presents to the office today for colonoscopy. The patient had colonoscopy last 3 years ago. At that time the patient had 3 polyps over 1 cm. These were tubular adenomas. The patient denies any abdominal pain or blood in his stool. He denies family history of colon cancer. He did have a valve replacement in August last year and is on Plavix. ROS General General: No weight change, appetite, fatigue, colon cancer, breast cancer or weakness HEENT HEENT: Yes eye injury; no difficulty swallowing, eye surgery, swollen glands or hoarseness Endo Endocrine: Yes diabetes mellitus; no thyroid disease, thyroid cancer, Hair loss, heat intolerance or cold intolerance Skin Skin: No rash or changing moles Musc Musculoskeletal: No back problems, arthritis, rheumatoid arthritis, gout or joint pain Cardio Cardiovascular: Yes heart disease and heart attack; no murmur, pacemaker, atrial fibrillation, high blood pressure, heart stent, palpitations, shortness of breat with exertion or chest pain Psych Psychiatric: No depression, anxiety or hearing voices Resp Respiratory: No shortness of breath, No sleep apnea, No cough, No COPD, No asthma, No emphysema, No wheezing Gastro Gastrointestinal: No abdominal pain, No nausea or vomiting, No diarrhea, No constipation, No blood in stool, No acid reflux, No hemorrhoids, No ulcers, No gallbladder problem, No black,tarry stools John Hematologic: Yes blood thinners, No blood disorders, No bleeding, No anemia, No blood clots Neuro Neurologic: No system reviewed and no additional complaints, except as docu, No as per HPI, No abnormal walking, No abnormal hearing, No abnormal movements, No abnormal speech, No behavioral changes, No burning sensations, No confusion, No seizure-like activity, No unsteadiness, No dizziness, No localized weakness, No frequent falls, No headache(s), No lack of coordination, No loss of vision, No memory loss, No numbness, No other visual disturbances, No radiating pain, No restless legs, No sensory deficit, No fainting, No tingling, No tremor(s), No weakness, No other Exam Const General: cooperative Orientation: alert, oriented x3 Resp Effort & Inspection: normal respiratory effort Auscultation: clear to auscultation bilaterally Cardio Rate: regular rate Rhythm: regular rhythm Heart Sounds: no murmurs GI Inspection: non-distended Palpation: soft, nontender Assessment & Plan Problems 1. History of mitral valve replacement with bioprosthetic valve Z95.3 27 mm Medtronic Weldon Tissue Valve 2. History of colon polyps Z86.010 Plan The patient has a history of 3 tubular adenomas during his last colonoscopy 3 years ago. These were also over 1 cm. This qualifies him her repeat colonoscopy 3 years. Patient is now due. The patient has a history of valve repair and I will ask his freezer laboratory technician for permission to take him off Plavix for 5 days prior to procedure. I will also give him amoxicillin the day of the procedure for prophylaxis. I advised the patient to take half of his long-acting insulin the night before the procedure and not to take any of his oral diabetic medications that day. I explained endoscopy in detail to the patient. I explained the risks including but not limited to stroke or heart attack with anesthesia, perforation of the GI tract, bleeding, infection. I explained that any of these could necessitate further emergency surgery. The patient understands and all questions were answered sufficiently. The patient wishes to proceed with procedure. Javon Pedersen MD Pager: [facility] [address] [place] [address], [address] [place] [address] Office: Orders Orders: Colonoscopy Today Z86.010 Coding Level of Care Code Off vis,new,level 3 Diagnoses History of mitral valve replacement with bioprosthetic valve Z95.3 History of colon polyps Z86.010 07/15/19 1345 <Electronically signed by Javon linda MD> Date _ Javon Pedersen MD
[2019-07-15 13:41] VITALS: BMI 32.3
[2019-08-18] VITALS (7 sets, daily range): BP systolic 115–148; BP diastolic 48–64; PULSE 60–65; RESP 15–18; TEMP 36.2–36.7; O2SAT 93–100; BMI 31.4
--- NOTE | 2019-08-18 | COLBX_PTH ---
PATIENT: LOVE PHELAN LOC: EN U#:[id number] AGE/SX: 74/M ROOM: RE08/18/[address]: Dr. Javon Pedersen MD : 1945 BED: DIS: 08/18/2019 SPEC #: [id number] RECD: 08/18/19 14:28 STATUS: UMANG CADENA #: [id number] JOSÉ MIGUEL: 08/18/19 00:[address]: Javon Pedersen DEPT: SURGICAL PATHOLOGY RECD BY: Juan De Paz ENTERED: 08/18/19 14:28 SP TYPE: COLON BX OTHR DR: Dr. Akira Pacheco MD Tissues: Sigmoid colon biopsy Procedures: Surgery Specimen Level IV HEADER OPERATION: Colonoscopy (MAC) PRE-OP DIAGNOSIS: History of polyps TISSUE SUBMITTED: Sigmoid colon polyp MICROSCOPIC DIAGNOSIS Sigmoid colon polyp, biopsy: Serrated adenoma (mixed hyperplastic polyp and tubular adenoma). Fragments of fecal material. SJ:mata 08/19/19 MICROSCOPIC DESCRIPTION Slides are reviewed. GROSS DESCRIPTION Received in fixative is one container labeled with the patient's name and designated sigmoid colon polyp. The specimen consists of multiple irregular fragments of light soliz soft tissue mixed with fecal material that in aggregate measure 0.8 x 0.3 x 0.1 cm. The specimen is totally submitted in one cassette. / SJ:mtaa 08/18/19 TC:1 CPT: 11257
[2019-08-18 08:00] LABS: Bedside Glucose 166 mg/dL (70-110)
[2019-08-18] MEDS: AMOXICILLIN 500 MG CAPSULE PO (08:00)
[2019-08-18] MEDS: Lactated Ringers 1,000 ML 100 ML IV (08:08)
--- NOTE | 2019-08-18 08:13 | H&P.OPEN ---
History of Present Illness Date of Admission: 08/18/19 The patient is a 74 year old M who presents today for colonoscopy. The patient had colonoscopy last 3 years ago. At that time the patient had 3 polyps over 1 cm. These were tubular adenomas. The patient denies any abdominal pain or blood in his stool. He denies family history of colon cancer. He did have a valve replacement in August last year and is on Plavix. Past Medical/Surgical History - Planned Operation Planned Operative Procedure/s: colonoscopy Date of Operative Procedure: 08/18/19 Permit Signed: No S.O.S: No Is This Patient Having a Total Joint: No - Previous Hospitalizations/Surgeries HX Hospitalizations: Yes - [facility] HX of Surgeries: 2009 heart stents x4. 2018 mitral heart valve replacement Any Problems With Anesthesia: No You/Your Family Experience Fever (Hyperthermia) With Anes: No Cholinesterase deficiency: No - Cardiovascular Hx Chest Pain within Last 2 months: No Hx of Irregular Heartbeat and/or Afib: No Hx Heart Attack: Yes - 08/2018/ Dr Blanchard Hx Congestive Heart Failure: No Hx Rheumatic Fever: No Hx Hypertension: Yes - states controlled with med Hx Internal Defibrillator: No Hx Pacemaker: No Hx Cardiac Catheterization: Yes - 2017 What facility was last heart cath performed: [facility] Date of last Heart Cath: 2017 Hx Cardiac Surgery/Stents/Etc.: Yes - stents 2009 x4, valve 2018 Hx Stress Test: Yes - CLAIRE, echo stress HX Edema: No Hx Pain in Legs when Walking/Leg Cramps: No - Respiratory Chronic Cough: No HX of Shortness of Breath: No - denies Hoarseness: No Hx Chronic Obstructive Pulmonary Disease (COPD): No Hx Asthma: No Hx Emphysema: No Hx Sleep Apnea: No Hx Oxygen Use at Home: No Hx Respiratory Tract Infection/Cold (presently): No Do You Snore Loudly (louder than talking or can be heard): Yes Do You Often Feel Tired/ Fatigued/ Sleepy Dring Daytime?: No Has Anyone Observed You Stop Breathing During Sleep?: No Result (for STOP score): Positive Hx Smoking: Yes - quit 1998 Smoking Status: Former smoker - Gastrointestinal Hx Gastroesophageal Reflux: No Hx Gastrointestinal Disorders: No Hx Gastrointestinal Bleed: No Hx Ulcer: No Hx Hiatal Hernia: No Difficulty Chewing/Swallowing: No Recent Onset of Swallowing Problems: No Special diet followed at home: Yes - diabetic Hx Unplanned Weight Loss of 20#: No HX Unplanned Weight Gain of 20#: No - Neurological Hx Seizures: No HX Syncope/Blackout Spells/Unconsciousness: No Hx CVA/Stroke: No Hx Transient Ischemic Attacks (TIA): No Hx Multiple Sclerosis: No Hx Parkinson's Disease: No Hx Head/Neck Injury: No Hx Headaches: No Hx Back Injury/Pain: No Recent Onset of Speech Difficulty: No Restless Legs: No Does patient have nerve stimulator: No Patient instructed to have device shut off: No Rep notified?: No - Blood Disorder Hx Leukemia: No Bleeding Tendencies: Yes - plavix,aspirin ld 08/13/19 Hx Deep Vein Thrombosis: No Hx High Cholesterol: No - on med per dr Blood Transmitted Disease: No Hx Hepatitis: No Hx Cirrhosis: No Hx Anemia: No Hx Blood Disorders: No - Genitourinary Hx Renal Disease: No Hx Dialysis: No - Musculoskeletal Hx Arthritis: No Hx Rheumatoid Arthritis: No Hx Gout: Yes - per hx,not recent Recent Onset of an Orthopedic Problem: No - Endocrine Hx Diabetes: Yes Insulin: Yes Thyroid Disease: No Hx Steroid Therapy: No - Psycho/Social Hx Substance Use: No Hx Alcohol Use: Yes - 1 beer/month Hx Anxiety: No Hx Depression: No Mental Illness: No Hx Dementia: No - Miscellaneous Hx Cancer: No Recent Exposure to Contagious Disease: No Active MRSA: No Hx of C-Diff: No Any Loose Teeth: Yes - bridge Allergies doxycycline Allergy (Verified 08/18/19 07:52) hives - Discharge Is Pt Admitted From a Shelter, or a Chcf: No Who Could Help: After D/C, Where Do you Plan to Go: Return Home - From the PAT History Number of Risk Factors: 2 - Physical Exam Vitals/I&O's: Vital Signs Temp Pulse Resp BP Pulse Ox 97.2 F L 62 15 141/57 H 100 08/18/19 07:54 08/18/19 07:54 08/18/19 07:54 08/18/19 07:54 08/18/19 07:54 Oxygen Delivery Method Room Air Weight: 225 lb 1.471 oz Body Mass Index (BMI) 31.4 General: Alert, Oriented x3 Lungs: Normal air movement Cardiovascular: Regular rate, Regular Rhythm Abdomen: Soft, Non Tender, Non-Distended Laboratory Results 08/18/19 07:58: POC Glucose 166 H Current Medications Lactated Ringer's () 1,000 mls @ 100 mls/hr IV .Q10H NIRAV Last Admin: 08/18/19 08:08 Dose: 100 mls/hr Documented by: Assessment/Plan All Active Problems (Last Reviewed 07/15/19 @ 13:08 by Cynthia Martinez) History of mitral valve replacement with bioprosthetic valve (Resolved 09/26/18) History of coronary artery stent placement (Resolved 03/09/10) CAD (coronary artery disease) (Resolved) Dyspnea, unspecified (Resolved) skilled nursing (current) use of 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 (Resolved) Type 2 diabetes mellitus (Resolved) 74-year-old male with a history of colon polyps I explained endoscopy in detail to the patient. I explained the risks including but not limited to stroke or heart attack with anesthesia, perforation of the GI tract, bleeding, infection. I explained that any of these could necessitate further emergency surgery. The patient understands and all questions were answered sufficiently. The patient wishes to proceed with procedure. Javon Pedersen MD Pager: [facility] [address] [place] [address], [address] [place] [address] Office: Surgery Risks - Colonoscopy Risks Include but are not Limited To: Risks include but are not limited to: Bleeding, perforation requiring further surgery, inability to complete colonoscopy requiring barium enema.
--- NOTE | 2019-08-18 09:22 | OP.ENDO_ITS ---
08/18/2019 Akira Pacheco Re : Colonoscopy procedure for Jimi Degroot Dear Tara This procedure was performed on Sunday, August 18, 2019. My impressions and recommendations are as follows: Impressions : - One small polyp in the sigmoid colon, removed with a hot snare. Resected and retrieved. Recommendations : - Resume previous diet. - Continue present medications. - Resume aspirin tomorrow and Plavix (clopidogrel) tomorrow at prior doses. - Repeat colonoscopy in 5 years for surveillance. My findings are described in the full procedure note, which is enclosed. If I can be of further assistance, please feel free to contact me at Doctor phone number(s): , Work: . Sincerely, Javon Pedersen MD 08/18/2019 9:21:58 AM This report has been signed electronically.
== END 2019-08-18 10:12 | disposition home or self-care (01) ==
LOC: EN 07:06 → AC 07:07
PROVIDERS: Family Provider Family Medicine; PCP Family Medicine; Referring Provider Family Medicine; Visit Provider Surgery
PROC: 0DJD8ZZ Inspection of Lower Intestinal Tract, Via Natural or Artificial Opening Endoscopic (ICD-10-PCS; CPT 45378; principal; 2019-08-18 08:55)
DX: D12.5 Benign neoplasm of sigmoid colon (principal); Z86.010 Personal history of colon polyps; I25.2 Old myocardial infarction; I10 Essential (primary) hypertension; E11.9 Type 2 diabetes mellitus without complications; Z95.5 Presence of coronary angioplasty implant and graft; Z95.3 Presence of xenogenic heart valve; Z79.4 Long term (current) use of insulin; Z79.84 Long term (current) use of oral hypoglycemic drugs; Z79.02 Long term (current) use of antithrombotics/antiplatelets; Z79.82 Long term (current) use of aspirin; Z79.899 Other long term (current) drug therapy; Z87.891 Personal history of nicotine dependence
CPT/HCPCS: 45385; 82962; 88305; J7120; J2405

== ENCOUNTER → 2020-07-19 12:49 | Outpatient (CLI) | payer MEDICARE, SELFPAY ==
[2020-07-07 11:14] VITALS: BMI 31.5
--- NOTE | 2020-07-19 12:49 | ECHOCS_ITS ---
Version 2 Reason For Study: VALVE REPLACEMENT EVAL Procedure This was a 2D Doppler, Color Flow transthoracic echocardiogram. Exam performed in department. Left Ventricle Normal LV size. The estimated ejection fraction is 53 %. Post operative septal motion. Stage 2 diastolic dysfunction. No regional wall motion abnormalities noted. Right Ventricle Normal RV size. Normal systolic function. Atria The left atrium is moderately enlarged. Normal right atrium. Mitral Valve Bioprosthetic mitral valve. Stable appearing bioprosthetic mitral valve apparatus. Tricuspid Valve Normal tricuspid valve. Mild tricuspid valve insufficiency. Pulmonary artery systolic pressure is 30 mmHg. Aortic Valve Trisinus/trileaflet aortic valve. Mild focal aortic valve thickening. Pulmonic Valve Normal pulmonic valve. Great Vessels Normal aortic root. The pulmonary artery is normal size. Inferior vena cava collapse with sniff. Pericardium/Pleural No pericardial effusion. Medication 22 gauge I.V. with prn adaptor inserted into right arm. Diluted definity 4ml given slow IV push to enhance endocardial definition. MMode/2D Measurements & Calculations LVIDd: 5.6 cm IVSd: 1.1 cm Ao root diam: 3.1 cm LVIDs: 4.2 cm LVPWd: 1.1 cm RVDd: 3.8 cm FS: 24.6 % LAV(MOD-bp): 93.0 ml LVAd ap4: 42.5 cm2 SV(MOD-sp4): 91.8 ml LAV(MOD-bp) Indexed: 41.9 ml/m2 EDV(MOD-sp4): 165.4 ml LAV(MOD-sp2): 103.5 ml EDV(sp4-el): 173.5 ml LAV(MOD-sp4): 87.8 ml LVAs ap4: 26.1 cm2 ESV(MOD-sp4): 73.5 ml ESV(sp4-el): 77.8 ml EF(MOD-sp4): 55.5 % EF(sp4-el): 55.2 % SV(sp4-el): 95.7 ml LA A4 area: 26.0 cm2 LA dimension(2D): 4.5 cm RA A4 area: 21.3 cm2 Time Measurements MV dec time: 0.56 sec Doppler Measurements & Calculations MV E max laurent: 173.0 cm/sec Lat Peak E' Laurent: 6.7 cm/sec Med Peak E' Laurent: 4.7 cm/sec MV A max laurent: 133.8 cm/sec E/E' lat: 25.7 E/E' med: 37.2 MV E/A: 1.3 MV V2 max: 178.6 cm/sec MV P1/2t max laurent: 178.6 cm/sec Ao V2 max: 165.0 cm/sec MV max P.8 mmHg MV P1/2t: 165.3 msec Ao max P.9 mmHg MV V2 mean: 109.2 cm/sec MV dec slope: 316.5 cm/sec2 MV mean P.4 mmHg MVA(P1/2t): 1.3 cm2 MV V2 VTI: 71.1 cm LV V1 max: 71.8 cm/sec PA V2 max: 96.1 cm/sec TR max laurent: 259.1 cm/sec LV V1 max P.1 mmHg TR max P.9 mmHg MV P1/2t-pr_phl: 170.8 msec Interpretation Summary Normal LV size. The estimated ejection fraction is 53 %. Post operative septal motion. The left atrium is moderately enlarged. Stage 2 diastolic dysfunction. Contrast injection was performed. Ordering Physician: Hemant Blanchard Referring Physician: REGINE FERNÁNDEZ Performed By: Patty Molina RDCS
== END ==
PROVIDERS: PCP Family Medicine; Referring Provider Internal Medicine Cardiovascular Disease; Visit Provider Internal Medicine Cardiovascular Disease
DX: I25.10 Atherosclerotic 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native coronary artery without angina pectoris (principal)
CPT/HCPCS: 93306; Q9957; A4216; C8929

== ENCOUNTER 2021-12-27 11:45 | Outpatient (CLI) | payer MEDICARE, SELFPAY ==
--- NOTE | 2021-12-27 12:05 | RAD_ITS ---
STUDY: X-RAY CHEST REASON FOR EXAM: Male, 76 years old. Shortness of breath, cough, CHF TECHNIQUE: PA and lateral views of the chest. COMPARISON: Comparison is made with prior study dated 10/07/2008. FINDINGS: Small to moderate size right pleural effusion with right basilar infiltration and/or atelectasis. There is no demonstrated pleural abnormality. The patient is status post mitral valve replacement. Normal mediastinum and mj. Normal visualized pulmonary arteries. There is atherosclerotic calcification of the aortic arch with tortuosity. There are degenerative changes of the visualized thoracic spine. Normal visualized ribs, clavicles, and shoulders. There is no demonstrated abnormality of the visualized soft tissue structures of the upper abdomen. RAD/Chest PA and Lateral IMPRESSION: Mild to moderate sized right pleural effusion with right basilar atelectasis and/or infiltrate. Electronically Signed: Amarjit Cruz MD at 14:47 EST ,
[2021-12-27 13:11] LABS: Hematocrit 32.3 % (40-54); Hemoglobin 10.3 g/dL (13.0-16.5); Mean Corp Hgb Conc 31.9 g/dL (32-36); Mean Corpuscular Volume 84.6 fL (80-94); Platelet Count 157 K/mm3 (150-450); RBC Distribution Width CV 15.3 % (11.6-14.6); RBC Distribution Width SD 46.5 fl (35.1-43.9); Red Blood Count 3.82 M/mm3 (4.6-6.2); White Blood Count 4.5 K/mm3 (4.4-11.0)
[2021-12-27 13:34] LABS: Anion Gap 5 (5-15); BUN 54 mg/dL (7-18); BUN/Creat Ratio 33.5 RATIO (10-20); Calcium,Total 9.4 mg/dL (8.5-10.1); Chloride 106 mmol/L (98-107); Creatinine, Serum 1.61 mg/dL (0.70-1.30); EST Glomerular Filtration Rate 45 mL/min (>60); Est Glom Filt Rate - Afr Amer 54 mL/min (>60); Glucose 120 mg/dL (74-106); Potassium 4.7 mmol/L (3.5-5.1); Sodium Level 138 mmol/L (136-145)
[2021-12-27 13:36] LABS: BNP,B-Type NATRIURETIC PEPTIDE 379.1 pg/mL (0-100)
[2021-12-29 15:33] LABS: Ferritin 39 ng/mL (26-388); Iron 52 ug/dL (65-175)
== END 2021-12-27 23:59 | disposition home or self-care (01) ==
PROVIDERS: PCP Family Medicine; Referring Provider Nurse Practitioner Gerontology; Visit Provider Nurse Practitioner Gerontology
DX: I50.33 Acute on chronic diastolic (congestive) heart failure (principal); I25.10 Atherosclerotic 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native coronary artery without angina pectoris; R06.02 Shortness of breath; R06.01 Orthopnea; R53.83 Other fatigue; Z95.3 Presence of xenogenic heart valve
CPT/HCPCS: 36415; 71046; 80048; 82728; 83540; 83880; 85027

== ENCOUNTER 2022-01-03 10:57 | Outpatient (CLI) | payer MEDICARE, SELFPAY ==
[2022-01-03 11:12] LABS: Absolute Lymphocyte Count 0.59 X10^3/uL (0.83-4.51); Absolute Neutrophil Count 3.6 X10^3/uL (2.0-7.7); Basophil# 0.04 X10^3/uL; Basophil% 0.8 % (0-1); Eosinophil# 0.13 X10^3/uL; Eosinophils% 2.6 % (0-5); Hemoglobin 8.8 g/dL (13.0-16.5); Lymphocyte # 0.59 X10^3/ul (0.83-4.51); Mean Corp Hgb Conc 31.4 g/dL (32-36); Mean Corpuscular Hgb 26.7 pg (27.0-32.0); Mean Corpuscular Volume 85.1 fL (80-94); Mean Platelet Vol. 9.2 fl (6.2-12.0); Monocyte# 0.49 X10^3/uL; NRBC Flagged by Analyzer 0 % (0-5); Neutrophil # 3.62 X10^3/uL (2.7-7.7); Neutrophil % 73.8 % (47-70); POSITIVE DIFFERENTIAL YES; Platelet Count 152 K/mm3 (150-450); RBC Distribution Width CV 15.7 % (11.6-14.6); RBC Distribution Width SD 48.7 fl (35.1-43.9); Red Blood Count 3.29 M/mm3 (4.6-6.2); White Blood Count 4.9 K/mm3 (4.4-11.0)
[2022-01-03 11:15] LABS: Differential Indicated SCAN CRITERIA MET
[2022-01-03 11:33] LABS: Anion Gap 7 (5-15); BUN 52 mg/dL (7-18); BUN/Creat Ratio 27.5 RATIO (10-20); Calcium,Total 8.7 mg/dL (8.5-10.1); Chloride 105 mmol/L (98-107); Creatinine, Serum 1.89 mg/dL (0.70-1.30); EST Glomerular Filtration Rate 37 mL/min (>60); Est Glom Filt Rate - Afr Amer 45 mL/min (>60); Glucose 204 mg/dL (74-106); Potassium 4.4 mmol/L (3.5-5.1); Sodium Level 138 mmol/L (136-145)
== END 2022-01-03 23:59 | disposition home or self-care (01) ==
LOC: LAB.FUTURE 10:57 → LAB 11:00
PROVIDERS: PCP Family Medicine; Referring Provider Nurse Practitioner Gerontology; Visit Provider Nurse Practitioner Gerontology
DX: R53.83 Other fatigue (principal); K92.1 Melena; R06.02 Shortness of breath
CPT/HCPCS: 36415; 80048; 82274; 85025

== ENCOUNTER 2022-01-23 13:40 | Outpatient (CLI) | payer MEDICARE, SELFPAY ==
--- NOTE | 2022-01-23 13:42 | ECHOD_ITS ---
Reason For Study: DYSPNEA/SOB Procedure This was a 2D Doppler, Color Flow transthoracic echocardiogram. Exam performed in department. Left Ventricle Normal LV size. The estimated ejection fraction is 53 %. No regional wall motion abnormalities noted. Right Ventricle Normal RV size. Normal systolic function. Atria The left atrium is mildly enlarged. Normal right atrium. Mitral Valve Stable appearing bioprosthetic mitral valve apparatus. Tricuspid Valve Normal tricuspid valve. Mild to moderate (1-2+) tricuspid valve insufficiency. Pulmonary artery systolic pressure is 50 mmHg. Aortic Valve Trisinus/trileaflet aortic valve. Moderate focal aortic valve thickening. Pulmonic Valve Normal pulmonic valve. Great Vessels Normal aortic root. The pulmonary artery is normal size. Normal inferior vena cava. Pericardium/Pleural No pericardial effusion. MMode/2D Measurements & Calculations LVIDd: 5.5 cm IVSd: 1.1 cm LVOT diam: 2.0 cm LVIDs: 3.9 cm LVPWd: 1.2 cm LVOT area: 3.0 cm2 RVDd: 3.8 cm FS: 28.2 % Ao root diam: 3.1 cm LAV(MOD-bp): 70.5 ml LVAd ap4: 43.6 cm2 LAV(MOD-bp) Indexed: 31.0 ml/m2 LVLd ap4: 9.3 cm LAV(MOD-sp2): 63.9 ml EDV(MOD-sp4): 166.0 ml LAV(MOD-sp4): 66.3 ml EDV(sp4-el): 172.6 ml LVAs ap4: 27.9 cm2 LVLs ap4: 8.1 cm ESV(MOD-sp4): 81.0 ml ESV(sp4-el): 81.3 ml EF(MOD-sp4): 51.2 % EF(sp4-el): 52.9 % SV(MOD-sp4): 85.0 ml SV(sp4-el): 91.3 ml LA A4 area: 22.6 cm2 LA dimension(2D): 4.4 cm RA A4 area: 21.0 cm2 Time Measurements MV dec time: 0.33 sec Doppler Measurements & Calculations MV E max laurent: 188.6 cm/sec Lat Peak E' Laurent: 6.7 cm/sec Med Peak E' Laurent: 5.1 cm/sec MV A max laurent: 181.5 cm/sec E/E' lat: 28.0 E/E' med: 36.9 MV E/A: 1.0 MV V2 max: 233.7 cm/sec MV P1/2t max laurent: 232.8 cm/sec Ao V2 max: 171.8 cm/sec MV max P.0 mmHg MV P1/2t: 113.9 msec Ao max P.8 mmHg MV V2 mean: 174.1 cm/sec Ao V2 mean: 133.5 cm/sec MV mean P.8 mmHg MV dec slope: 598.8 cm/sec2 Ao mean P.8 mmHg MV V2 VTI: 66.1 cm MVA(P1/2t): 1.9 cm2 Ao V2 VTI: 41.7 cm MVA(VTI): 1.3 cm2 MARQUES(I,D): 2.1 cm2 MARQUES(V,D): 2.4 cm2 LV V1 max: 136.6 cm/sec SV(LVOT): 87.3 ml PA V2 max: 102.5 cm/sec LV V1 max P.5 mmHg LV V1 mean P.4 mmHg LV V1 mean: 86.5 cm/sec LV V1 VTI: 29.1 cm TR max laurent: 336.7 cm/sec MV P1/2t-pr_phl: 107.1 msec TR max P.3 mmHg ECHO/Echo Complete Interpretation Summary Normal LV size. The estimated ejection fraction is 53 %. No regional wall motion abnormalities noted. The left atrium is mildly enlarged. Pulmonary artery systolic pressure is 50 mmHg. Moderate focal aortic valve thickening. Ordering Physician: Ana Adam Referring Physician: REGINE FERNÁNDEZ Performed By: Patty Molina RDCS
== END 2022-01-23 23:59 | disposition home or self-care (01) ==
LOC: CVS 13:41
PROVIDERS: PCP Family Medicine; Referring Provider Nurse Practitioner Gerontology; Visit Provider Nurse Practitioner Gerontology
DX: R06.00 Dyspnea, unspecified (principal); I11.0 Hypertensive heart disease with heart failure; I50.33 Acute on chronic diastolic (congestive) heart failure; R06.02 Shortness of breath; R06.01 Orthopnea; I25.10 Atherosclerotic 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native coronary artery without angina pectoris; I34.0 Nonrheumatic mitral (valve) insufficiency; Z95.3 Presence of xenogenic heart valve
CPT/HCPCS: 93306

== ENCOUNTER → 2022-05-07 | Outpatient (CLI) | payer MEDICARE, SELFPAY ==
[2022-05-07 11:42] LABS: Absolute Lymphocyte Count 0.43 X10^3/uL (0.83-4.51); Basophil# 0.03 X10^3/uL; Basophil% 0.7 % (0-1); Eosinophil# 0.19 X10^3/uL; Eosinophils% 4.7 % (0-5); Hematocrit 35.1 % (40-54); Hemoglobin 10.9 g/dL (13.0-16.5); Lymphocyte # 0.43 X10^3/ul (0.83-4.51); Lymphocyte % 10.7 % (19-41); Mean Corp Hgb Conc 31.1 g/dL (32-36); Mean Corpuscular Hgb 26.1 pg (27.0-32.0); Mean Platelet Vol. 10.3 fl (6.2-12.0); Monocyte# 0.38 X10^3/uL; Monocyte% 9.4 % (0-10); NRBC Flagged by Analyzer 0 % (0-5); Neutrophil # 2.99 X10^3/uL (2.7-7.7); Neutrophil % 74.3 % (47-70); POSITIVE DIFFERENTIAL YES; Platelet Count 142 K/mm3 (150-450); RBC Distribution Width CV 16.3 % (11.6-14.6); RBC Distribution Width SD 50.3 fl (35.1-43.9); Red Blood Count 4.18 M/mm3 (4.6-6.2)
[2022-05-07 11:50] LABS: Differential Indicated SCAN CRITERIA MET
[2022-05-07 12:09] LABS: Anion Gap 9 (5-15); BUN 47 mg/dL (7-18); BUN/Creat Ratio 28.1 RATIO (10-20); Calcium,Total 8.2 mg/dL (8.5-10.1); Chloride 104 mmol/L (98-107); Creatinine, Serum 1.67 mg/dL (0.70-1.30); EST Glomerular Filtration Rate 43 mL/min (>60); Est Glom Filt Rate - Afr Amer 52 mL/min (>60); Glucose 230 mg/dL (74-106); Potassium 4.5 mmol/L (3.5-5.1); Sodium Level 138 mmol/L (136-145)
[2022-05-09 07:25] LABS: Pathologist Review Reviewed
== END | disposition home or self-care (01) ==
PROVIDERS: PCP Family Medicine; Referring Provider Family Medicine; Visit Provider Family Medicine
DX: I50.9 Heart failure, unspecified (principal)
CPT/HCPCS: 36415; 80048; 85025

== ENCOUNTER → 2022-06-18 | Outpatient (CLI) | payer MEDICARE, SELFPAY ==
[2022-06-18 12:34] LABS: Absolute Lymphocyte Count 0.51 X10^3/uL (0.83-4.51); Absolute Neutrophil Count 3.5 X10^3/uL (2.0-7.7); Basophil# 0.03 X10^3/uL; Basophil% 0.6 % (0-1); Eosinophil# 0.14 X10^3/uL; Hematocrit 37.4 % (40-54); Hemoglobin 11.7 g/dL (13.0-16.5); Lymphocyte # 0.51 X10^3/ul (0.83-4.51); Mean Corp Hgb Conc 31.3 g/dL (32-36); Mean Corpuscular Hgb 26.3 pg (27.0-32.0); Monocyte# 0.48 X10^3/uL; Monocyte% 10.3 % (0-10); NRBC Flagged by Analyzer 0 % (0-5); Neutrophil # 3.45 X10^3/uL (2.7-7.7); Neutrophil % 74.5 % (47-70); POSITIVE DIFFERENTIAL YES; Platelet Count 134 K/mm3 (150-450); Red Blood Count 4.45 M/mm3 (4.6-6.2); White Blood Count 4.6 K/mm3 (4.4-11.0)
[2022-06-18 12:57] LABS: BNP,B-Type NATRIURETIC PEPTIDE 283.4 pg/mL (0-100)
[2022-06-18 13:00] LABS: Differential Indicated SCAN CRITERIA MET
[2022-06-18 13:23] LABS: ALB/GLOB Ratio 0.7 RATIO (0.9-2.4); AST(SGOT) 14 U/L (15-37); Alanine Aminotransfer ALT/SGPT 21 U/L (16-61); Albumin, Serum 3.3 g/dL (3.2-5.0); Alkaline Phosphatase 112 U/L (45-117); Anion Gap 4 (5-15); BUN 48 mg/dL (7-18); BUN/Creat Ratio 25.3 RATIO (10-20); Calcium,Total 8.7 mg/dL (8.5-10.1); Chloride 105 mmol/L (98-107); EST Glomerular Filtration Rate 37 mL/min (>60); Est Glom Filt Rate - Afr Amer 45 mL/min (>60); Ferritin 61 ng/mL (26-388); Globulin 4.8 g/dL (2.2-4.2); Glucose 105 mg/dL (74-106); Iron 47 ug/dL (65-175); Potassium 5.1 mmol/L (3.5-5.1); Protein, Total 8.1 g/dL (6.4-8.2); Sodium Level 135 mmol/L (136-145)
== END | disposition home or self-care (01) ==
LOC: LAB 11:37
PROVIDERS: PCP Family Medicine; Visit Provider Family Medicine
DX: I11.0 Hypertensive heart disease with heart failure (principal); I50.9 Heart failure, unspecified; D50.9 Iron deficiency anemia, unspecified
CPT/HCPCS: 36415; 80053; 82728; 83540; 83880; 85025

== ENCOUNTER 2022-09-14 06:17 | Day surgery (SDC) | payer MEDICARE, SELFPAY ==
--- NOTE | 2022-09-14 | COLBX_PTH ---
PATIENT: LOVE PHELAN LOC: EN U#:[id number] AGE/SX: 77/M ROOM: RE09/14/[address]: Dr. Javon Pedersen MD : 1945 BED: DIS: 09/14/2022 SPEC #: [id number] RECD: 09/14/22 10:48 STATUS: UMANG CADENA #: [id number] JOSÉ MIGUEL: 09/14/22 00:[address]: Javon Pedersen DEPT: SURGICAL PATHOLOGY RECD BY: Juan De Paz ENTERED: 09/14/22 10:49 SP TYPE: COLON BX OTHR DR: Dr. Akira Pacheco MD Tissues: Sigmoid colon biopsy Procedures: Surgery Specimen Level IV HEADER OPERATION: Colonoscopy (MAC) PRE-OP DIAGNOSIS: History of colon polyps TISSUE SUBMITTED: Sigmoid colon polyp MICROSCOPIC DIAGNOSIS Sigmoid colon polyp, polypectomy: Tubular adenoma. THOMAS:mata 09/17/2022 MICROSCOPIC DESCRIPTION Slides are reviewed. GROSS DESCRIPTION Received in fixative is one container labeled with the patient's name and designated sigmoid polyp. The specimen consists of a soliz-pink polyp measuring 0.6 x 0.5 x 0.3 cm. The specimen is totally submitted in one cassette. / SJ:mata 09/14/2022 TC:1 CPT: 01467
[2022-09-14] MEDS: Lactated Ringers 1,000 ML 15 ML IV (06:35)
[2022-09-14 06:49] VITALS: BP 152/59; PULSE 49; RESP 17; TEMP 36.1; O2SAT 97; BMI 31.9
--- NOTE | 2022-09-14 06:57 | PCM.HP.BLA ---
History and Physical Date of Admission: 09/14/22 Intake Vital Signs ? 01/26/2210:42 07/11/2213:46 Height 5 ft 11 in 5 ft 11 in Weight: ? 222 lb BMI ? 30.9 BP ? 177/69 H Blood Pressure Location ? Rt brachial Position ? Sitting Respiration ? 18 Intake Visit Reasons:?RECALL LETTER- C SCOPE Chief Complaint: c-scope Wireless Cellular Technician Required: No Is patient in pain?: No Allergies doxycycline Allergy (Verified 07/11/22 13:46) hives Medications metoprolol tartrate 50 mg tablet 50 mg PO BID #180 tabs 10/27/18 [Rx Confirmed 07/11/22] atorvastatin 20 mg tablet 20 mg PO QHS #30 tabs 10/31/18 [Rx Confirmed 07/11/22] hydrochlorothiazide 25 mg tablet 25 mg PO DAILY 07/13/19 [History Confirmed 07/11/22] losartan 100 mg tablet 100 mg PO DAILY #30 tabs 07/13/19 [Rx Confirmed 07/11/22] amlodipine 10 mg tablet 10 mg PO DAILY #90 tabs 07/11/21 [Rx Confirmed 07/11/22] cyanocobalamin (vitamin B-12) 1,000 mcg/mL injection kit 1,000 mcg subcut QMONTH 07/10/22 [History Confirmed 07/10/22] furosemide 40 mg tablet 40 mg PO DAILY 07/10/22 [History Confirmed 07/11/22] insulin aspart U-100 100 unit/mL (3 mL) subcutaneous pen 22 unit subcut TIDCM 07/10/22 [History Confirmed 07/11/22] insulin glargine 100 unit/mL (3 mL) subcutaneous pen 35 unit subcut BID 07/10/22 [History Confirmed 07/11/22] [facility] Medical History? Acute on chronic diastolic (congestive) heart failure Atherosclerotic 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[place] coronary artery without angina pectoris Diabetes mellitus type II, controlled Essential (primary) hypertension Hyperlipidemia Ischemic cardiomyopathy Non-rheumatic mitral regurgitation Occlusion and stenosis of right carotid artery Old myocardial infarction Renal insufficiency Surgical History? History of coronary artery stent placement (03/09/10) History of left heart catheterization (09/22/18) History of mitral valve replacement with bioprosthetic valve (09/26/18) Family History? Father CAD (coronary artery disease) ?? ? Hx CABG x4 vessels Myocardial infarction,? Onset Age: 50Mother?? Breast cancer Social History? Smoking Status:? Former smoker how long ago did patient quit smoking:? 1998 alcohol intake:? current Alcohol type: beer substance use type:? does not use caffeine:? Yes Type: coffee what type of physical activity do you participate in:? other details: occasional rowing machine, biking frequency:? other details: occasional rowing machine, biking duration:? other details: occasional rowing machine, biking seatbelt use:? always do you feel safe at home:? Yes HPI HPI HPI: 77-year-old male with a history of serrated polyp of the colon.? He is here for surveillance colonoscopy.? That colonoscopy was 3 years ago.? He denies any blood in his stool or abdominal pain at this time. ROS General General: No weight change, appetite, fatigue, colon cancer, breast cancer or weakness HEENT HEENT: Yes eye injury and eye surgery; No difficulty swallowing, swollen glands or hoarseness Endo Endocrine: Yes diabetes mellitus; No thyroid disease, thyroid cancer, Hair loss, heat intolerance or cold intolerance Skin Skin: No rash or changing moles Breast Breast: No left breast lump, right breast lump, nipple discharge, breast pain, abnormal mammogram, abnormal US or breast enlargement Musc Musculoskeletal: Yes gout; No back problems, arthritis, rheumatoid arthritis or joint pain Cardio Cardiovascular: Yes heart disease, high blood pressure, heart attack and heart stent; No murmur, pacemaker, atrial fibrillation, palpitations, shortness of breat with exertion or chest pain Psych Psychiatric: No depression, anxiety or hearing voices Resp Respiratory: No shortness of breath, No sleep apnea, No cough, No COPD, No asthma, No emphysema and No wheezing Gastro Gastrointestinal: No abdominal pain, No nausea or vomiting, No diarrhea, No constipation, No blood in stool, No acid reflux, No hemorrhoids, No ulcers, No gallbladder problem and No black,tarry stools John Hematologic: No blood thinners, No blood disorders, No bleeding, Yes anemia and No blood clots Neuro Neurologic: No system reviewed and no additional complaints, except as documented, No as per HPI, No abnormal gait, No abnormal hearing, No abnormal movements, No abnormal speech, No behavioral changes, No burning sensations, No confusion, No convulsions, No disequilibrium, No dizziness, No localized weakness, No frequent falls, No headache(s), No lack of coordination, No loss of vision, No memory loss, No numbness, No other visual disturbances, No radicular pain, No restless legs, No sensory deficit, No syncope, No tingling, No tremor(s), No weakness and No other Exam Const General: cooperative Orientation: alert and oriented x3 HENMT Head: normal to inspection Neck Neck: normal visual inspection and full ROM Chest Chest palpation & inspection: normal inspection of the chest Resp Effort & Inspection: normal respiratory effort Auscultation: clear to auscultation bilaterally Cardio Rate: regular rate Rhythm: regular rhythm GI Inspection: non-distended Palpation: soft and nontender Skin General: no rashes or lesions noted Neuro General: patient alert and patient oriented x3 Extrem General: full ROM Psych Appearance: grossly normal Mental Status: mental status grossly normal Assessment and Plan Assessment and Plan (1) History of colon polyps: ?Status:?Acute ?Plan: Patient has a history of colon polyps and requires 3-year surveillance colonoscopy.? I explained endoscopy in detail to the patient.? I explained the risks including but not limited to stroke or heart attack with anesthesia, perforation of the GI tract, bleeding, infection.? I explained that any of these could necessitate further emergency surgery.? The patient understands and all questions were answered sufficiently.? The patient wishes to proceed with procedure. Javon Pedersen MD Pager: [facility] [address] [place] [address], [address] [place] [address] Office: I have seen and reexamined the patient and there are no changes
[2022-09-14 07:57] VITALS: BP 113/46; BP 152/59; PULSE 48; RESP 16; TEMP 36.3; O2SAT 84
[2022-09-14 07:59] VITALS: BP 104/46; BP 152/59; PULSE 54; RESP 16; O2SAT 94
--- NOTE | 2022-09-14 08:04 | OP.CCLET_ITS ---
09/14/2022 Akira Pacheco Re : Colonoscopy procedure for Jimi Degroot Dear Tara This procedure was performed on Wednesday, September 14, 2022. My impressions and recommendations are as follows: Impressions : - One small polyp in the sigmoid colon, removed with a hot snare. Resected and retrieved. - The examination was otherwise normal on direct and retroflexion views. Recommendations : - Discharge patient to home. - Resume previous diet. - Continue present medications. - Await pathology results. - Repeat colonoscopy in 5 years for surveillance. My findings are described in the full procedure note, which is enclosed. If I can be of further assistance, please feel free to contact me at Doctor phone number(s): , Work: . Sincerely, Javon Pedersen MD 09/14/2022 8:03:34 AM This report has been signed electronically.
--- NOTE | 2022-09-14 08:04 | OP.COLON_ITS ---
Patient Name: Jimi Degroot Procedure Date: 09/14/2022 7:27 AM Date of : 1945 Age: 77 Procedure: Colonoscopy Indications: High risk colon cancer surveillance: Personal history of colonic polyps Providers: Javon Pedersen MD Referring MD: Javon Pedersen MD Medicines: Monitored Anesthesia Care Patient Profile: This is a 77 year old male. Refer to note in patient chart for documentation of history and physical. Last Colonoscopy: 3 years ago. Complications: No immediate complications. Procedure: Pre-Anesthesia Assessment: - Prior to the procedure, a History and Physical was performed, and patient medications and allergies were reviewed. The patient's tolerance of previous anesthesia was also reviewed. The risks and benefits of the procedure and the sedation options and risks were discussed with the patient. All questions were answered, and informed consent was obtained. Prior Anticoagulants: The patient has taken no previous anticoagulant or antiplatelet agents. After reviewing the risks and benefits, the patient was deemed in satisfactory condition to undergo the procedure. After I obtained informed consent, the scope was passed under direct vision. Throughout the procedure, the patient's blood pressure, pulse, and oxygen saturations were monitored continuously. The Colonoscope was introduced through the anus and advanced to the cecum, identified by appendiceal orifice and ileocecal valve. The colonoscopy was performed without difficulty. The patient tolerated the procedure well. The quality of the bowel preparation was good. Scope In: 7:37:27 AM Scope Withdrawal Time 0 hours 8 minutes 35 seconds Scope Out: 7:51:07 AM Total Procedure Duration Time 0 hours 13 minutes 40 seconds Findings: A small polyp was found in the sigmoid colon. The polyp was removed with a hot snare. Resection and retrieval were complete. Verification of patient identification for the specimen was done. Estimated blood loss was minimal. The exam was otherwise without abnormality on direct and retroflexion views. Impression: - One small polyp in the sigmoid colon, removed with a hot snare. Resected and retrieved. - The examination was otherwise normal on direct and retroflexion views. Recommendation: - Discharge patient to home. - Resume previous diet. - Continue present medications. - Await pathology results. - Repeat colonoscopy in 5 years for surveillance. Procedure Code(s): --- Professional --- 05004, Colonoscopy, flexible; with removal of tumor(s), polyp(s), or other lesion(s) by snare technique Diagnosis Code(s): --- Professional --- Z86.010, Personal history of colonic polyps D12.5, Benign neoplasm of sigmoid colon CPT copyright 2017 [employer]. All rights reserved. The codes documented in this report are preliminary and upon research physiologist review may be revised to meet current compliance requirements. Javon Pedersen MD 09/14/2022 8:03:34 AM This report has been signed electronically. Number of Addenda: 0 Note Initiated On: 09/14/2022 7:27 AM
[2022-09-14 08:05] VITALS: BP 113/45; BP 152/59; PULSE 53; RESP 16; O2SAT 97
[2022-09-14 08:12] VITALS: BP 127/50; BP 152/59; PULSE 54; RESP 16; TEMP 36.2; O2SAT 95
[2022-09-14 08:26] VITALS: BP 152/59
[2022-09-14 08:40] LABS: Bedside Glucose 105 mg/dL (74-106)
== END 2022-09-14 08:44 | disposition home or self-care (01) ==
LOC: EN 06:23 → AC 06:24
PROVIDERS: PCP Family Medicine; Referring Provider Family Medicine; Visit Provider Surgery
PROC: 0DJD8ZZ Inspection of Lower Intestinal Tract, Via Natural or Artificial Opening Endoscopic (ICD-10-PCS; CPT 45378; principal; 2022-09-14 07:25)
DX: Z12.11 Encounter for screening for malignant neoplasm of colon (principal); I11.0 Hypertensive heart disease with heart failure; I50.33 Acute on chronic diastolic (congestive) heart failure; Z79.4 Long term (current) use of insulin; E11.9 Type 2 diabetes mellitus without complications; D12.5 Benign neoplasm of sigmoid colon; I25.2 Old myocardial infarction; I25.10 Atherosclerotic 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native coronary artery without angina pectoris; E78.5 Hyperlipidemia, unspecified; Z95.5 Presence of coronary angioplasty implant and graft; Z79.899 Other long term (current) drug therapy; Z87.891 Personal history of nicotine dependence; Z86.010 Personal history of colon polyps; I25.5 Ischemic cardiomyopathy
CPT/HCPCS: 45385; 82962; 88305; J7120; J2405

== ENCOUNTER → 2022-12-11 | Outpatient (CLI) | payer MEDICARE, SELFPAY ==
[2022-12-11 18:11] LABS: Vitamin D,25 Hydroxy 23.5 ng/mL
[2022-12-11 18:12] LABS: Thyroid Stim Hormone (TSH) 3.84 uIU/mL (0.358-3.74)
== END | disposition home or self-care (01) ==
LOC: BFHLAB 15:36
PROVIDERS: PCP Family Medicine; Visit Provider Family Medicine
DX: E55.9 Vitamin D deficiency, unspecified (principal); R53.83 Other fatigue
CPT/HCPCS: 36415; 82306; 84443

== ENCOUNTER → 2023-01-18 | Outpatient (CLI) | payer MEDICARE, SELFPAY ==
--- NOTE | 2023-01-19 09:13 | STRESSREP ---
Stress Test Report Pharmacologic myocardial perfusion stress test. 77-year-old man with a history of shortness of breath and fatigue Resting EKG demonstrates sinus rhythm with a rate of 87 bpm. Resting blood pressure is 172/80 mmHg. 0.4 mg of regadenoson was infused per usual protocol followed by rapid intravenous saline flush injection. Continuous EKG monitoring was performed. The maximum heart rate was 103 bpm which was 71% of max impacted heart rate the maximum workload was 1 metabolic equivalent. At rest there were no ST or T wave changes noted to suggest ischemia and at peak infusion nonspecific ST changes were noted which did not meet the criteria for ischemia. No clinical angina is noted. The final blood pressure was 138/70 mmHg. Myocardial perfusion protocol. 14.6 mCi of technetium 99m sestamibi was injected at rest. 0.4 mg of regadenoson was infused per usual protocol. At peak infusion 44.1 mCi of technetium 99m sestamibi was injected stress images were obtained stress and rest images were reconstructed and compared in the short axis vertical long and horizontal long axis. Gated images were also obtained. Perfusion SPECT analysis: Review of the stress images demonstrate normal uptake of tracer noted in all areas of the myocardium. The resting images similar demonstrated normal uptake of tracer noted in all areas of the myocardium. No areas of reversibility are noted to suggest ischemia and no previous infarct is noted. Gated SPECT analysis: The gated ejection fraction is 50%. Conclusion: Normal pharmacologic myocardial perfusion stress test. Preserved ejection fraction.
== END | disposition home or self-care (01) ==
PROVIDERS: Referring Provider Nurse Practitioner Family; Visit Provider Nurse Practitioner Family
DX: R06.02 Shortness of breath (principal); I11.0 Hypertensive heart disease with heart failure; I50.33 Acute on chronic diastolic (congestive) heart failure; R53.83 Other fatigue; E78.5 Hyperlipidemia, unspecified; Z95.5 Presence of coronary angioplasty implant and graft
CPT/HCPCS: 78452; 93017; A9500; J2785

== ENCOUNTER → 2023-01-29 | Outpatient (CLI) | payer MEDICARE, SELFPAY ==
[2023-01-29 15:38] LABS: T4 Free Direct 1.16 ng/dL (0.76-1.46); Thyroid Stim Hormone (TSH) 3.21 uIU/mL (0.358-3.74)
== END | disposition home or self-care (01) ==
LOC: BFHLAB 13:09
PROVIDERS: Referring Provider Family Medicine; Visit Provider Family Medicine
DX: E03.9 Hypothyroidism, unspecified (principal)
CPT/HCPCS: 36415; 84439; 84443

== ENCOUNTER → 2023-01-30 | Outpatient (CLI) | payer MEDICARE, SELFPAY | END | disposition home or self-care (01) | PROVIDERS: PCP Family Medicine; Referring Provider Family Medicine; Visit Provider Family Medicine | DX: R19.7 Diarrhea, unspecified (principal) | CPT/HCPCS: 83630; 87177; 87209; 87493 ==

== ENCOUNTER → 2023-02-05 | Outpatient (CLI) | payer MEDICARE, SELFPAY ==
--- NOTE | 2023-02-05 14:17 | PFTCOMP ---
COMPLETE PULMONARY FUNCTION TEST INTERPRETATION Brief HPI: Patient is a 77-year-old male, currently under the care of Dr. Luciano, who presents to [facility] for complete pulmonary function tests secondary to diagnosis of dyspnea. Respiratory therapist reports good effort and reproducible results. Interpretation: Forced expiration spirometry shows no large airways obstructive ventilatory defect with an FEV1 of 34% predicted. There is no significant bronchodilator response by strict ATS criteria. Spirograms are of good quality and plateau normally. The respiratory flow volume loop shows a normal pattern. Lung volumes by body plethysmography show a moderately decreased total lung capacity at 4.55 L, 68% predicted. All other lung volumes are reduced symmetrically. Diffusion capacity by carbon monoxide is decreased at 45% predicted. The airway resistance is normal. No previous pulmonary function tests were available for review. Impression: Moderate restrictive ventilatory defect with a disproportionate reduction in diffusion capacity. Consider chest imaging if not completed previously
== END | disposition home or self-care (01) ==
LOC: PSN 06:46
PROVIDERS: PCP Family Medicine; Referring Provider Family Medicine; Visit Provider Family Medicine
DX: R53.83 Other fatigue (principal)
CPT/HCPCS: 94060; 94726; 94729

== ENCOUNTER → 2023-02-26 | Outpatient (CLI) | payer MEDICARE, SELFPAY ==
--- NOTE | 2023-02-26 14:48 | CT_ITS ---
INDICATION: Hx of pleural effusion EXAMINATION: CT CHEST WITHOUT CONTRAST - CT Chest W/O Contrast Injection TECHNIQUE: Helically acquired images were obtained of the chest. A radiation dose optimization technique was used for this scan. IV Contrast dosage and agent: None. COMPARISON: Chest x-ray 12/27/2021 FINDINGS: LUNGS, PLEURA AND LARGE AIRWAYS: No masses, consolidation, or edema. Moderate volume right pleural effusion with compressive atelectasis. Small left pleural effusion. THYROID: 2 cm nodule right lobe thyroid. HEART AND PERICARDIUM: Cardiomegaly. No pericardial effusion. Coronary artery calcifications and mitral valve prosthesis present. VESSELS: Thoracic aorta is not dilated. MEDIASTINUM AND ALIDA: No mediastinal or hilar adenopathy. Esophagus is unremarkable. No hiatal hernia. UPPER ABDOMEN: No acute pathology. BONES: No acute or aggressive abnormality. CT/Chest without Contrast IMPRESSION: Bilateral pleural effusions, right side greater than left. Compressive atelectasis associated with a right pleural effusion. 2 cm nodule right lobe thyroid. If not previously evaluated, recommend routine thyroid ultrasound. Electronically Signed: Richard Murrieta MD at 22:40 EDT ,
== END | disposition home or self-care (01) ==
PROVIDERS: PCP Family Medicine; Referring Provider Family Medicine; Visit Provider Family Medicine
DX: R94.2 Abnormal results of pulmonary function studies (principal)
CPT/HCPCS: 71250

== ENCOUNTER → 2023-03-07 | Outpatient (CLI) | payer MEDICARE, SELFPAY ==
--- NOTE | 2023-03-07 10:42 | RAD_ITS ---
STUDY: X-RAY CHEST REASON FOR EXAM: Male, 77 years old. Eval. Rt. effusion to possible thoracentesis TECHNIQUE: PA and lateral views of the chest. COMPARISON: Comparison is made with prior study December 27, 2021. FINDINGS: Since prior study, there has been an increase in the right pleural effusion and right basilar infiltration and/or atelectasis. Prior mitral valve replacement. Normal mediastinum and mj. Normal visualized pulmonary arteries. There is atherosclerotic calcification of the aortic arch with tortuosity. There are degenerative changes of the visualized thoracic spine. Normal visualized ribs, clavicles, and shoulders. There is no demonstrated abnormality of the visualized soft tissue structures of the upper abdomen. RAD/Chest PA and Lateral IMPRESSION: Increasing right pleural effusion with right basilar atelectasis and/or infiltrate. Electronically Signed: Amarjit Cruz MD at 11:10 EDT ,
[2023-03-07 11:46] LABS: Anion Gap 8 (5-15); BUN 49 mg/dL (7-18); BUN/Creat Ratio 27.2 RATIO (10-20); Calcium,Total 8.6 mg/dL (8.5-10.1); Chloride 103 mmol/L (98-107); EST Glomerular Filtration Rate 39 mL/min (>60); Est Glom Filt Rate - Afr Amer 47 mL/min (>60); Glucose 133 mg/dL (74-106); Potassium 4.6 mmol/L (3.5-5.1); Sodium Level 137 mmol/L (136-145)
== END | disposition home or self-care (01) ==
LOC: RAD 10:41
PROVIDERS: PCP Family Medicine; Referring Provider Nurse Practitioner Family; Visit Provider Nurse Practitioner Family
DX: Z79.899 Other long term (current) drug therapy (principal)
CPT/HCPCS: 36415; 71046; 80048

== ENCOUNTER → 2023-03-12 | Outpatient (CLI) | payer MEDICARE, SELFPAY ==
--- NOTE | 2023-03-12 07:23 | US_ITS ---
PROCEDURE: ULTRASOUND GUIDED THORACENTESIS. DATE: March 12, 2023. INDICATION: Male, 77 years old. Right pleural effusion. PHYSICIAN: Amarjit Cruz M.D. PROCEDURE: The risks, benefits, and alternatives to the procedure were explained to the patient. The specific risks of bleeding, infection, and pneumothorax requiring chest tube insertion were discussed and accepted. Written informed consent was obtained. Ultrasonographic evaluation of the right lower pleural space was carried out. An adequate pocket was identified. The patient was placed in the sitting, upright position. The overlying skin was prepped and draped in sterile fashion. 1% lidocaine was administered subcutaneously for local anesthesia. Under ultrasound guidance, a 5 [place] thoracentesis needle/catheter system was advanced into the right posterior lower pleural fluid collection. Approximately 1750 mL of marla-colored fluid was drained. The catheter was removed, and a sterile dressing was applied. A specimen was collected and sent to the laboratory for analysis, as requested by the referring clinician. The patient tolerated the procedure well. A chest x-ray was ordered. US/Thoracentesis W US IMPRESSION: Ultrasound-guided right thoracentesis. Electronically Signed: Amarjit Cruz MD at 9:11 EDT ,
--- NOTE | 2023-03-12 08:00 | FLU_PTH ---
PATIENT: LOVE PHELAN LOC: [facility]#:[id number] AGE/SX: 77/M ROOM: RE03/12/[address]: EMY Early : 1945 BED: DIS: 03/12/2023 SPEC #: [id number] RECD: 03/12/23 08:52 STATUS: UMANG TAMMI #: [id number] JOSÉ MIGUEL: 03/12/23 08:[address]: Matthew Redding NP DEPT: CYTOLOGY RECD BY: Lidia Ramirez ENTERED: 03/12/23 12:44 SP TYPE: Fluid OTHR DR: Dr. Tessie Luciano MD Tissues: THORACIC FLUID Procedures: Special Stain Group II Surgery Specimen Level IV Cytospin Fluid HEADER OPERATION: Thoracentesis PRE-OP DIAGNOSIS: Pleural effusion TISSUE SUBMITTED: Thoracentesis fluid for cytology DIAGNOSIS CYTOLOGY Thoracentesis fluid for cytology (cytospin): Negative for malignant cells. AM:mata 03/13/2023 CYTOLOGY STUDY Slides are reviewed. CYTOLOGY GROSS Received is 85 ml of cloudy red fluid labeled with the patient's name and and designated per the requisition as thoracentesis. Submitted for cytology preparation including cell block. / mata 03/12/2023 TC:5 CPT: 54215, 54733
--- NOTE | 2023-03-12 08:15 | RAD_ITS ---
STUDY: X-RAY CHEST REASON FOR EXAM: Male, 77 years old. Post thora TECHNIQUE: AP inspiration and expiration views. COMPARISON: Comparison is made with prior study dated March 07, 2023. FINDINGS: The patient is status post right thoracentesis. No evidence of pneumothorax. Mild residual pleural-parenchymal changes are seen. RAD/Chest Insp/Exp 2 View IMPRESSION: Status post right thoracentesis. No evidence of pneumothorax. Mild degree of residual pleural-parenchymal changes seen. Electronically Signed: Amarjit Cruz MD at 10:08 EDT ,
[2023-03-12 08:20] VITALS: BP 140/104; BP 143/46; BP 146/76; BP 153/50; BP 84/50; PULSE 63; PULSE 65; PULSE 68; PULSE 71; PULSE 74; RESP 18; RESP 20; O2SAT 93; O2SAT 94; O2SAT 97
[2023-03-12] MEDS: Lidocaine 2% (20 ml mdv) 20 ML Vial INFILT (08:20)
[2023-03-12 08:50] LABS: Cytology, Body Fluid / CSF SEE PATHOLOGY REPORT
[2023-03-12 09:18] LABS: Body Fluid Mononuclear WBC # 0.273 10^3/uL; Body Fluid Mononuclear WBC % 95.2 %; Body Fluid Polynuclear WBC # 0.014 10^3/uL; Body Fluid Polynuclear WBC % 4.8 %; Body Fluid Total Cells Counted 0.327 10^3/ul; Red Cell Count/Body Fluid 0.027 10^6/ul; White Blood Count/Body Fluid 0.287 10^3/uL
[2023-03-12 09:23] LABS: Appearance/Body Fluid CLOUDY; Auto B Fluid Analyzer BKGD Ct COUNTS W/IN LIMITS (W/IN LIMITS); Color/Body Fluid RED; Source- Body Fluid THORACENTESIS
[2023-03-12 09:55] LABS: LDH,Body Fluid 75 Units/l (Not Establ.); Protein, Body Fluid 3.7 g/dL (Not Establ.)
[2023-03-12 10:33] LABS: Lymphocytes 46 %; Macrophages 39 %; Monocytes 6 %; Neutrophil (Segs) 9 %
[2023-03-12 10:36] LABS: Body Fluid QC Type(s) BF1Q
[2023-03-14 10:01] LABS: Pathologist Comment/Body Fluid Reviewed
== END | disposition home or self-care (01) ==
PROVIDERS: PCP Family Medicine; Referring Provider Nurse Practitioner Family; Visit Provider Nurse Practitioner Family
DX: R06.02 Shortness of breath (principal); J90 Pleural effusion, not elsewhere classified
CPT/HCPCS: 32555; 71046; 83615; 84157; 87070; 87075; 87205; 88108; 88305; 88313; 89050

== ENCOUNTER → 2023-03-19 | Outpatient (CLI) | payer OTHER, MEDICARE, SELFPAY ==
--- NOTE | 2023-03-19 13:45 | US_ITS ---
INDICATION: NODULE EXAMINATION: Ultrasound US Thyroid (eg thyroid, parathyroid, parotid) TECHNIQUE: Carlton scale and color doppler imaging was performed of the thyroid gland. COMPARISON: None. FINDINGS: RIGHT THYROID LOBE: 5.2 x 2.6 x 3.2 cm. Homogeneous echotexture with normal vascularity. [ 2.7 x 1.9 x 1.9 cm solid, hypoechoic, smooth margined nodule, wider than tall without echogenic foci corresponding to [employer] Ti RADS category 4, moderately suspicious nodule. Given size greater than 1.5 cm, fine-needle aspiration is recommended. LEFT THYROID LOBE: 4.3 x 2.2 x 2.0 cm. Homogeneous echotexture with normal vascularity. [ 7 x 5 x 6 mm solid, hypoechoic, smoothly marginated nodule, wider than tall, without echogenic foci corresponds to Ti RADS category 4, moderately suspicious nodule. Given size less than 1 cm, no follow-up is indicated. ISTHMUS: 3 mm. No thyroid nodules are present. US/Thyroid IMPRESSION: Thyroid nodules as detailed above with recommendations for FNA of right thyroid lobe nodule. Electronically Signed: Joaquin Plata DO at 22:36 EDT ,
== END | disposition home or self-care (01) ==
LOC: US 13:44
PROVIDERS: PCP Family Medicine
DX: E04.1 Nontoxic single thyroid nodule (principal)
CPT/HCPCS: 76536

== ENCOUNTER → 2023-05-03 | Outpatient (CLI) | payer MEDICARE, SELFPAY ==
--- NOTE | 2023-05-03 10:10 | RAD_ITS ---
STUDY: X-RAY CHEST REASON FOR EXAM: Male, 78 years old. shortness of breath, hx thoracentesis TECHNIQUE: PA and lateral views of the chest. COMPARISON: Comparison is made with prior study dated March 12, 2023. FINDINGS: Since prior study, there has been progressive right pleural effusion with right basilar infiltration and/or atelectasis. There is blunting of the left costo phrenic angle with mild left basilar atelectasis. Prior mitral valve replacement. Normal mediastinum and mj. Normal visualized pulmonary arteries. There is atherosclerotic calcification of the aortic arch with tortuosity. Normal visualized thoracic spine. Normal visualized ribs, clavicles, and shoulders. There is no demonstrated abnormality of the visualized soft tissue structures of the upper abdomen. Calcification of the carotid bifurcations bilaterally. RAD/Chest PA and Lateral IMPRESSION: Increasing right pleural effusion and right basilar infiltration and/or atelectasis. Blunting of the left contributing angle with increased markings at the left lung base. Electronically Signed: Amarjit Cruz MD at 11:02 EDT ,
[2023-05-03 10:44] LABS: Hematocrit 39.2 % (40-54); Hemoglobin 12.2 g/dL (13.0-16.5); Mean Corp Hgb Conc 31.1 g/dL (32-36); Mean Corpuscular Hgb 26.7 pg (27.0-32.0); Mean Corpuscular Volume 85.8 fL (80-94); Mean Platelet Vol. 10.1 fl (6.2-12.0); Platelet Count 123 K/mm3 (150-450); RBC Distribution Width CV 15.8 % (11.6-14.6); RBC Distribution Width SD 49.1 fl (35.1-43.9); Red Blood Count 4.57 M/mm3 (4.6-6.2); White Blood Count 3.6 K/mm3 (4.4-11.0)
[2023-05-03 10:54] LABS: International Normalized Ratio 1.3; Prothrombin Time (Protime)PT. 16.1 SECONDS (11.7-14.9)
[2023-05-03 10:55] LABS: Partial Thromboplast Time 33.2 Seconds (24.1-36.2)
[2023-05-03 11:08] LABS: BNP,B-Type NATRIURETIC PEPTIDE 498.8 pg/mL (0-100)
[2023-05-03 11:10] LABS: ALB/GLOB Ratio 0.6 RATIO (0.9-2.4); Anion Gap 4 (5-15); BUN 46 mg/dL (7-18); BUN/Creat Ratio 24.3 RATIO (10-20); Calcium,Total 8.6 mg/dL (8.5-10.1); Chloride 106 mmol/L (98-107); Creatinine, Serum 1.89 mg/dL (0.70-1.30); EST Glomerular Filtration Rate 37 mL/min (>60); Est Glom Filt Rate - Afr Amer 45 mL/min (>60); Globulin 5.1 g/dL (2.2-4.2); Glucose 105 mg/dL (74-106); LDH 171 U/L (87-241); Potassium 4.9 mmol/L (3.5-5.1); Protein, Total 8.2 g/dL (6.4-8.2); Sodium Level 137 mmol/L (136-145)
== END | disposition home or self-care (01) ==
LOC: LAB 09:57
PROVIDERS: PCP Family Medicine; Referring Provider Nurse Practitioner Family; Visit Provider Nurse Practitioner Family
DX: R06.02 Shortness of breath (principal); I50.33 Acute on chronic diastolic (congestive) heart failure; I25.10 Atherosclerotic 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native coronary artery without angina pectoris; J90 Pleural effusion, not elsewhere classified; Z98.890 Other specified postprocedural states; Z87.09 Personal history of other diseases of the respiratory system; Z86.2 Personal history of diseases of the blood and blood-forming organs and certain disorders involving the immune mechanism
CPT/HCPCS: 36415; 71046; 80048; 83615; 83880; 84156; 85027; 85610; 85730

== ENCOUNTER → 2023-05-10 | Outpatient (CLI) | payer MEDICARE, SELFPAY ==
[2023-05-10 11:39] LABS: Anion Gap 6 (5-15); BUN 50 mg/dL (7-18); BUN/Creat Ratio 26.5 RATIO (10-20); Calcium,Total 8.6 mg/dL (8.5-10.1); Chloride 102 mmol/L (98-107); Creatinine, Serum 1.89 mg/dL (0.70-1.30); EST Glomerular Filtration Rate 37 mL/min (>60); Est Glom Filt Rate - Afr Amer 45 mL/min (>60); Glucose 95 mg/dL (74-106); Potassium 4.6 mmol/L (3.5-5.1); Sodium Level 136 mmol/L (136-145)
== END | disposition home or self-care (01) ==
PROVIDERS: PCP Family Medicine; Referring Provider Nurse Practitioner Family; Visit Provider Nurse Practitioner Family
DX: R06.02 Shortness of breath (principal); R00.1 Bradycardia, unspecified; I25.10 Atherosclerotic 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native coronary artery without angina pectoris
CPT/HCPCS: 36415; 80048

== ENCOUNTER → 2023-05-15 | Outpatient (CLI) | payer MEDICARE, SELFPAY ==
--- NOTE | 2023-05-15 12:54 | ECHOD_ITS ---
Reason For Study: SHORTNESS OF BREATH Procedure This was a 2D Doppler, Color Flow transthoracic echocardiogram. The study was technically difficult. Exam performed in department. Left Ventricle Normal LV size. Left ventricular systolic function is lower limits of normal. The left ventricular ejection fraction is 50 %. No regional wall motion abnormalities noted. Right Ventricle Moderately dilated right ventricle. Mild global right ventricular systolic dysfunction. Atria The left atrium is moderately enlarged. The right atrium is moderately enlarged. Mitral Valve Stable appearing bioprosthetic mitral valve apparatus. Tricuspid Valve Normal tricuspid valve. Mild (1+) tricuspid valve insufficiency. Pulmonary artery systolic pressure is 34 mmHg. Aortic Valve Trisinus/trileaflet aortic valve. Mild focal aortic valve calcification. Pulmonic Valve Normal pulmonic valve. Mild (1+) pulmonic valve insufficiency. Great Vessels Normal aortic root. The pulmonary artery is normal size. The inferior vena cava is dilated. Pericardium/Pleural No pericardial effusion. MMode/2D Measurements & Calculations LVIDd: 5.5 cm IVSd: 1.3 cm LVOT diam: 1.9 cm LVIDs: 4.3 cm LVPWd: 0.95 cm LVOT area: 2.8 cm2 RVDd: 5.0 cm FS: 22.7 % Ao root diam: 3.1 cm LAV(MOD-bp): 79.8 ml LVAd ap4: 30.9 cm2 LAV(MOD-bp) Indexed: 36.5 ml/m2 LVLd ap4: 8.0 cm LAV(MOD-sp2): 93.4 ml EDV(MOD-sp4): 95.3 ml LAV(MOD-sp4): 67.3 ml EDV(sp4-el): 101.6 ml LVAs ap4: 19.5 cm2 LVLs ap4: 7.1 cm ESV(MOD-sp4): 46.2 ml ESV(sp4-el): 45.4 ml EF(MOD-sp4): 51.5 % EF(sp4-el): 55.3 % LVAd ap2: 36.0 cm2 SV(MOD-sp4): 49.1 ml SV(MOD-sp2): 70.8 ml LVLd ap2: 8.5 cm EDV(MOD-sp2): 122.3 ml EDV(sp2-el): 128.8 ml LVAs ap2: 21.2 cm2 LVLs ap2: 7.1 cm ESV(MOD-sp2): 51.5 ml ESV(sp2-el): 53.4 ml EF(MOD-sp2): 57.9 % SV(sp4-el): 56.2 ml LA dimension(2D): 5.1 cm LA A4 area: 23.8 cm2 RA A4 area: 24.8 cm2 TAPSE: 1.8 cm Doppler Measurements & Calculations Lat Peak E' Laurent: 4.4 cm/sec Med Peak E' Laurent: 4.5 cm/sec MV V2 max: 205.2 cm/sec MV max P.8 mmHg MV V2 mean: 110.4 cm/sec MV mean P.7 mmHg MV V2 VTI: 71.8 cm MVA(VTI): 1.1 cm2 Ao V2 max: 165.6 cm/sec LV V1 max: 115.0 cm/sec SV(LVOT): 81.8 ml Ao max P.0 mmHg LV V1 max P.3 mmHg Ao V2 mean: 115.8 cm/sec LV V1 mean P.9 mmHg Ao mean P.1 mmHg LV V1 mean: 78.1 cm/sec Ao V2 VTI: 42.7 cm LV V1 VTI: 28.9 cm AV (velocity ratio): 0.67 MARQUES(I,D): 1.9 cm2 MARQUES(V,D): 2.0 cm2 PA V2 max: 92.5 cm/sec TR max laurent: 280.8 cm/sec PA max PG (full): 2.4 mmHg TR max P.5 mmHg ECHO/Echo Complete Interpretation Summary Normal LV size. Left ventricular systolic function is lower limits of normal. The left ventricular ejection fraction is 50 %. Stable appearing bioprosthetic mitral valve apparatus. Mild (1+) tricuspid valve insufficiency. Compared to the previous echocardiogram the left ventricular function is essent ially unchanged the right ventricle is mildly dilated and the IVC is dilated. The pulmonary pressur es appear to be lower. Ordering Physician: Matthew Redding Referring Physician: Matthew Redding Performed By: Isabella Donovan RDCS
--- NOTE | 2023-05-15 13:35 | RAD_ITS ---
INDICATION: Evaluate pleural effusion EXAMINATION/TECHNIQUE: X-RAY - XR Chest 2 Views COMPARISON: May 03, 2023 FINDINGS: LINES/DEVICES: None. LUNGS: There is persistent consolidation of the right lung base And Likely Prominent Right Effusion. Left Lung Appears Grossly Clear.. Mediastinum and Cardiovascular Structures: There Is Mild Prominence of the central pulmonary vasculature. BONES AND SOFT TISSUES: Unremarkable. RAD/Chest PA and Lateral IMPRESSION: Stable appearing consolidation of the right lung base and likely moderate effusion. Mild central pulmonary vascular congestion. Electronically Signed: Gregory Power, at 14:58 EDT ,
== END | disposition home or self-care (01) ==
LOC: CVS 12:52
PROVIDERS: PCP Nurse Practitioner Family; Referring Provider Nurse Practitioner Family; Visit Provider Nurse Practitioner Family
DX: R06.00 Dyspnea, unspecified (principal); Z87.09 Personal history of other diseases of the respiratory system; I25.10 Atherosclerotic 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native coronary artery without angina pectoris; R06.02 Shortness of breath; I10 Essential (primary) hypertension; E78.5 Hyperlipidemia, unspecified; Z98.890 Other specified postprocedural states; Z95.3 Presence of xenogenic heart valve
CPT/HCPCS: 71046; 93306

== ENCOUNTER → 2023-07-22 | Outpatient (CLI) | payer MEDICARE, SELFPAY ==
[2023-07-22 09:44] LABS: Anion Gap 6 (5-15); BUN 64 mg/dL (7-18); Calcium,Total 8.7 mg/dL (8.5-10.1); Chloride 107 mmol/L (98-107); Creatinine, Serum 1.94 mg/dL (0.70-1.30); EST Glomerular Filtration Rate 36 mL/min (>60); Est Glom Filt Rate - Afr Amer 44 mL/min (>60); Glucose 154 mg/dL (74-106); Potassium 5.6 mmol/L (3.5-5.1); Sodium Level 134 mmol/L (136-145)
== END | disposition home or self-care (01) ==
LOC: LAB 08:21
PROVIDERS: PCP Nurse Practitioner Family; Referring Provider Nurse Practitioner Family; Visit Provider Nurse Practitioner Family
DX: R06.00 Dyspnea, unspecified (principal); E78.5 Hyperlipidemia, unspecified; I10 Essential (primary) hypertension; Z95.3 Presence of xenogenic heart valve
CPT/HCPCS: 36415; 80048

== ENCOUNTER → 2023-07-23 | Outpatient (CLI) | payer MEDICARE, SELFPAY ==
--- NOTE | 2023-07-23 | FLU_PTH ---
PATIENT: LOVE PHELAN LOC: [facility] U#:[id number] AGE/SX: 78/M ROOM: RE07/23/[address]: Dr. Joaquin aTriq MD : 1945 BED: DIS: 07/23/2023 SPEC #: [id number] RECD: 07/23/23 14:58 STATUS: UMANG TAMMI #: [id number] JOSÉ MIGUEL: 07/23/23 00:[address]: Joaquin Tariq DEPT: CYTOLOGY RECD BY: Juan De Paz ENTERED: 07/24/23 09:16 SP TYPE: Fluid OTHR DR: Angie Cheng, [facility] Tissues: A - Thyroid gland, NOS B - Thyroid gland, NOS Procedures: Special Stain Group II Surgery Specimen Level IV Cytospin Fluid HEADER OPERATION: Fine needle aspiration right thyroid nodule PRE-OP DIAGNOSIS: Right thyroid nodule TISSUE SUBMITTED: A - Right thyroid nodule tissue fluid, B - Right thyroid nodule x4 slides DIAGNOSIS CYTOLOGY A. Right thyroid nodule tissue fluid, fine needle aspiration (cytospin and cell block): Negative for malignant cells. A few clusters of benign follicular cells are noted. B. Right thyroid nodule tissue, fine needle aspiration (smears): Atypical follicular cells of undetermined significance, [place] category III. Adequate for evaluation. See comment. THOMAS:mata 07/25/2023 COMMENT Correlation with clinical, radiologic findings and appropriate follow up are necessary. Multi-gene next-generation sequencing panel (Afirma) is recommended for this lesion. This recommendation was communicated to the physician's office. Case has been reviewed in consultation with Dr. Camargo who concurs with the above diagnosis. IDC:AM CYTOLOGY STUDY Slides are reviewed. CYTOLOGY GROSS A - Received is 30 ml of red cloudy fluid labeled with the patient's name and and designated per the requisition as right thyroid. Submitted for cytology preparation including cell block. B - Received are four smears labeled with the patient's name and designated per the requisition as right thyroid nodule. Submitted for staining. / mata 07/24/2023 TC: CPT: 18543 x2, 89255
== END | disposition home or self-care (01) ==
LOC: LABSPEC 15:02
PROVIDERS: PCP Nurse Practitioner Family; Referring Provider Surgery; Visit Provider Surgery
DX: E04.1 Nontoxic single thyroid nodule (principal)
CPT/HCPCS: 88108; 88305; 88313

== ENCOUNTER → 2023-08-02 | Outpatient (CLI) | payer MEDICARE, SELFPAY ==
[2023-08-02 17:25] LABS: Anion Gap 5 (5-15); BUN 66 mg/dL (7-18); Calcium,Total 8.4 mg/dL (8.5-10.1); Chloride 107 mmol/L (98-107); EST Glomerular Filtration Rate 31 mL/min (>60); Est Glom Filt Rate - Afr Amer 38 mL/min (>60); Glucose 251 mg/dL (74-106); Potassium 5.5 mmol/L (3.5-5.1); Sodium Level 135 mmol/L (136-145)
== END | disposition home or self-care (01) ==
LOC: LAB 16:31
PROVIDERS: PCP Nurse Practitioner Family; Referring Provider Nurse Practitioner Family; Visit Provider Nurse Practitioner Family
DX: E87.5 Hyperkalemia (principal)
CPT/HCPCS: 36415; 80048

== ENCOUNTER → 2023-08-21 | Outpatient (CLI) | payer MEDICARE, SELFPAY ==
--- NOTE | 2023-08-20 08:30 | FLU_PTH ---
PATIENT: LOVE PHELAN LOC: [facility] U#:[id number] AGE/SX: 78/M ROOM: RE08/21/[address]: Dr. Joaquin Tariq MD : 1945 BED: DIS: 08/21/2023 SPEC #: [id number] RECD: 08/21/23 12:34 STATUS: UMANG TAMMI #: [id number] JOSÉ MIGUEL: 08/20/23 08:[address]: Joaquin Tariq DEPT: CYTOLOGY RECD BY: Aurea Briones ENTERED: 08/22/23 06:10 SP TYPE: Fluid OTHR DR: Angie Cheng, WASHERETTE MACHINE OPERATOR-C Tissues: A - Thyroid gland, NOS B - Thyroid gland, NOS Procedures: Special Stain Group II Surgery Specimen Level IV Cytospin Fluid Cytology Other HEADER OPERATION: Fine needle aspiration right thyroid nodule PRE-OP DIAGNOSIS: Right thyroid nodule TISSUE SUBMITTED: A - Right thyroid fluid, B - Right thyroid x4 slides DIAGNOSIS CYTOLOGY A. Right thyroid fluid, fine needle aspiration (cytospin and cell block): Negative for malignant cells. See cytology study and comment. B. Right thyroid, fine needle aspiration (smears): Atypical follicular cells of undetermined significance ([place] Category III). Adequate for evaluation. See comment. SJ:rg 08/22/2023 COMMENT B. Correlation with clinical, radiologic findings and appropriate follow up are necessary. Per recommendations and a clinician-approved plan (a call was made to the referring doctor about the recommendation), genomic testing (Afirma) has been submitted. Results will be reported as an addendum and faxed to clinician. The [place] System for thyroid diagnostic categorization was used in the evaluation of this case. Please make reference to previous specimen ([id number]) right thyroid nodule, FNA with diagnosis of atypical follicular cells of undetermined significance. CYTOLOGY STUDY Slides are reviewed. A. A rare cluster of benign follicular cells are noted. CYTOLOGY GROSS A - Received is 30 ml of red fluid labeled with the patient's name and and designated per the requisition as right thyroid. Submitted for cytology preparation including cell block. B - Received are four smears labeled with the patient's name and designated per the requisition as right thyroid. Submitted for staining. / mata 08/21/2023 TC:5 [facility]: [id number] x2, [id number] ADDENDUM ADDENDUM ADDENDUM ADDENDUM ADDENDUM ADDENDUM ADDENDUM 09/23/2023 09:00 ADDENDUM 09/23/2023 09:00 ADDENDUM 09/23/2023 09:00 ADDENDUM 09/23/2023 09:00 ADDENDUM 09/23/2023 09:00 AFIRMA RESULTS REPORT RESULTS INTERPRETATION: The result of this 2.7 cm [place] III nodule A is Afirma GSC benign, which suggests a low risk of cancer of approximately 4%. Please see complete report in e-chart or EMR
== END | disposition home or self-care (01) ==
LOC: LABSPEC 13:15
PROVIDERS: PCP Nurse Practitioner Family; Visit Provider Surgery
DX: E04.1 Nontoxic single thyroid nodule (principal)
CPT/HCPCS: 88108; 88161; 88305; 88313

== ENCOUNTER 2023-09-03 11:28 | Inpatient (IN) | payer MEDICARE, SELFPAY ==
[2023-09-03] VITALS (10 sets, daily range): BP systolic 106–137; BP diastolic 51–62; PULSE 68–88; RESP 18–24; TEMP 35.5–36.8; O2SAT 88–95; BMI 29.5
--- NOTE | 2023-09-03 11:45 | EKG12_ITS ---
Test Reason : SOB Blood Pressure : / mmHG Vent. Rate : 067 BPM Atrial Rate : 067 BPM P-R Int : 166 ms QRS Dur : 116 ms QT Int : 424 ms P-R-T Axes : 068 090 152 degrees QTc Int : 448 ms Normal sinus rhythm Rightward axis Left ventricular hypertrophy with QRS widening and repolarization abnormality ( Keegan product ) Abnormal ECG Confirmed by CHAPITO AMBRIZ, LI ([id number]), mapping editor SHERIN FOSTER ([id number]) on 09/09/2023 10:15:45 AM Referred By: Confirmed By:KENIA URIARTE MD
--- NOTE | 2023-09-03 11:46 | EDS_ITS ---
HPI History of Present Illness Chief Complaint: Shortness of Breath Detail of Chief Complaint: Shortness of breath Informant: patient Narrative Narrative: Patient presents with shortness of breath that started several months ago. Patient states that he had to have a thoracentesis from the right lung and subsequently felt significantly improved. Since that time shortness of breath is returned and he has been gaining weight. He does have history of CHF. Patient had been on Lasix and spironolactone however the spironolactone was discontinued because of elevated potassiums. Patient complains of exertional shortness of breath. Patient states his O2 sat went down to 82% at home today and only came up to 88% with rest. Patient denies fever or cough out of the ordinary. He denies chest pain. [facility] Medical History Acute on chronic diastolic (congestive) heart failure Atherosclerotic 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[place] coronary artery without angina pectoris Cardiology follow-up encounter Diabetes mellitus type II, controlled Essential (primary) hypertension Former smoker Gout History of echocardiogram History of edema History of heart attack Hyperlipidemia Ischemic cardiomyopathy Low iron Non-rheumatic mitral regurgitation Occlusion and stenosis of right carotid artery Old myocardial infarction Renal insufficiency Shortness of breath on exertion Wears glasses Wears partial dentures Home Medications atorvastatin 20 mg tablet 20 mg PO QHS #30 tabs 10/31/18 [Rx Last Taken Unknown] amlodipine 10 mg tablet 10 mg PO DAILY #90 tabs 07/11/21 [Rx Last Taken Unknown] cyanocobalamin (vitamin B-12) 1,000 mcg/mL injection kit 1,000 mcg subcut QMONTH 07/10/22 [History Last Taken Unknown] cholecalciferol (vitamin D3) 25 mcg (1,000 unit) capsule 25 mcg PO DAILY 01/03/23 [History Last Taken Unknown] ferrous sulfate 325 mg (65 mg iron) tablet 325 mg PO DAILY 01/03/23 [History Last Taken Unknown] metoprolol tartrate 25 mg tablet 25 mg PO BID #180 tabs 01/03/23 [Rx Last Taken Unknown] spironolactone 25 mg tablet 12.5 mg (1/2 x 25 mg) PO DAILY #90 tabs 07/22/23 [Rx Last Taken Unknown] insulin aspart U-100 100 unit/mL (3 mL) subcutaneous pen 20 unit subcut TIDCM 07/23/23 [History Last Taken Unknown] insulin glargine 100 unit/mL (3 mL) subcutaneous pen 36 unit subcut BID 07/23/23 [History Last Taken Unknown] multivitamin 1 tab PO DAILY 07/23/23 [History Last Taken Unknown] furosemide 40 mg tablet 40 mg PO BID 08/29/23 [History Last Taken Unknown] Allergy/AdvReac Type Severity Reaction Status Date / Time doxycycline Allergy hives Verified 09/03/23 11:31 Family History Father CAD (coronary artery disease) Hx CABG x4 vessels Myocardial infarction, Onset Age: 50 Mother Breast cancer Other Acute on chronic diastolic (congestive) heart failure Surgical History History of coronary artery stent placement (03/09/10) History of left heart catheterization (09/22/18) History of mitral valve replacement with bioprosthetic valve (09/26/18) Social History Smoking Status: Former smoker how long ago did patient quit smokin alcohol intake: current Alcohol type: beer substance use type: does not use caffeine: Yes Type: coffee what type of physical activity do you participate in: other details: occasional rowing machine, biking frequency: other details: occasional rowing machine, biking duration: other details: occasional rowing machine, biking seatbelt use: always do you feel safe at home: Yes ROS ROS ED Review of Systems ROS Unobtainable: other Constitutional Constitutional ED: Reports lethargy; Denies chills, fever(s), sweats or weight loss Eyes Eyes: Denies blurry vision, change in vision or diplopia ENT ENT ED: Denies rhinorrhea or sore throat Cardiovascular Cardiovascular: Denies chest pain, orthopnea or racing heartbeat Respiratory/Chest Respiratory/Chest: Reports dyspnea and dyspnea on exertion; Denies cough, orthopnea or sputum Gastrointestinal Gastrointestinal: Denies abdominal pain, diarrhea, nausea or vomiting Genitourinary Genitourinary ED: Denies dysuria, hematuria or urinary frequency Musculoskeletal Musculoskeletal: Denies arthralgias, back pain, myalgias or neck pain Integumentary Denies abscess, Abrasions or rash Neurologic Neurologic: Denies headache(s) or weakness Psychiatric Psychiatric: Denies anxiety, depression or suicidal thoughts Endocrine Endocrinology: Denies polydipsia, polyphagia or polyuria Hematologic/Lymphatic Hematologic/Lymphatic: Denies easy bleeding, easy bruising or lymphadenopathy Allergic/Immunologic Allergic/Immunologic ED: Denies mouth swelling, tongue swelling or urticaria EXAM Physical Exam Const Vital Signs: 09/03/23 11:29 09/03/23 11:57 09/03/23 11:57 Temperature 96 F L Temperature Source Temporal Pulse Rate 70 68 Respiratory Rate 22 H 22 H Respiratory Effort Respiratory Depth Respiratory Pattern Blood Pressure 106/51 L Blood Pressure Mean 69 Pulse Ox 90 92 92 Oxygen Delivery Method Room Air Nasal Cannula Nasal Cannula Oxygen Flow Rate (L/min) 2 2 09/03/23 11:48 09/03/23 11:59 Temperature Temperature Source Pulse Rate Respiratory Rate Respiratory Effort Short of Breath Labored Respiratory Depth Shallow Respiratory Pattern Tachypnea Blood Pressure Blood Pressure Mean Pulse Ox 88 Oxygen Delivery Method Room Air Nasal Cannula Oxygen Flow Rate (L/min) 2 Positive well nourished and well developed General Appearance ED: well developed and NAD HEENT Reports TM's clear and moist mucous membranes normocephalic and atraumatic; Negative for trauma or tenderness Tympanic Membrane ED: Yes TM's clear Eyes PERRL and EOMs intact bilaterally General Eye ED: Negative for pale conjunctiva or scleral icterus Neck no lymphadenopathy, supple and no JVD General: Negative for tenderness Chest Wall inspection of chest normal and palpation of chest normal Chest: Negative for tenderness Resp normal respiratory effort Resp Narrative: Diminished breath sounds on the right compared to the left. Effort and Inspection: Negative for respiratory distress or pain with movement Auscultation: Negative for rhonchi, wheezes or diminished lung sounds Cardio regular rate, regular rhythm, S1 normal heart sound, S2 normal heart sound and no murmurs Peripheral Pulses: pulses 2+ throughout GI normal to inspection, nondistended, normoactive bowel sounds, soft to palpation, non-tender, non-distended and no masses Back/Spine no CVA tenderness and no thoracic nor lumbar tenderness Extremity normal to inspection General Extremety ED: Negative for edema General Extremity: Negative for edema Neuro oriented x3, CN's II-XII intact bilaterally, no sensory deficits noted and gait normal Sensorium / Orientation: awake, alert, oriented to person, oriented to place and oriented to time Motor Exam: strength 5/5 throughout and strength abnormal Psych mental status grossly normal Skin no rashes or lesions noted and no wounds MDM MDM MDM Narrative Medical decision making narrative: Patient presents with increased dyspnea with prior history of pleural effusion that required thoracentesis. Patient also with history of CHF and increased weight gain. IV line established on arrival. EKG obtained showed a sinus rhythm with a ventricular rate of 67 bpm with nonspecific T wave changes with f lipped T waves anterior laterally. Patient prior EKG was from 2009 and does seem somewhat changed and that in [address] depressions noted. Patient CBC with differential obtained for white count 5.0 with hemoglobin of 10.9 and platelet count of 152. Chemistries unremarkable. BUN 65 and creatinine 2.12. Glucose 174. Troponin was elevated at 6898 and BNP was 848. Chest x-ray obtained interpreted by myself as right pleural effusion with some cardiomegaly. Patient was started on a heparin drip. I did discuss case with cardiology on- call Dr. Galvan who agreed with the heparin drip. We will discussed with hospitalist to evaluate patient for admission. Lab Data Attestation: I reviewed the patient's lab results. Labs: Laboratory Results - last 24 hr 09/03/23 12:04 WBC 5.0 RBC 3.91 L Hgb 10.9 L Hct 34.6 L MCV 88.5 MCH 27.9 MCHC 31.5 L RDW Std Deviation 52.3 H RDW Coeff of Ngoc 16.3 H Plt Count 152 MPV 9.8 Immature Gran % (Auto) 1.400 H Neut % (Auto) 77.0 H Lymph % (Auto) 8.6 L Esmeralda % (Auto) 9.6 Eos % (Auto) 2.4 Baso % (Auto) 1.0 Absolute Neuts (auto) 3.9 Absolute Lymphs (auto) 0.43 L Nucleated RBC % 0 Differential Comment COMMENT Sodium 136 Potassium 4.7 Chloride 106 Carbon Dioxide 25.0 Anion Gap 5 BUN 65 H Creatinine 2.12 H Est GFR (MDRD) Af Amer 39 L Est GFR (MDRD) Non-Af 32 L BUN/Creatinine Ratio 30.7 H Glucose 174 H Calcium 8.7 Troponin I High Sens 6898 H* B-Natriuretic Peptide 848.9 H Radiography Diagnostic Testing: Clinical Impression(s) from Imaging Studies Chest X-Ray 09/03/23 12:10 IMPRESSION: Stable chest with no acute or emergent finding. Electronically Signed: Jimi Stokes MD at 12:25 EST , 1 view chest x-ray obtained interpreted by myself as cardiomegaly with right pleural effusion. Radiology felt this was a stable chest with no acute emergent findings. EKG Initial EKG: Attestation: I personally reviewed and interpreted this EKG as follows: Comments: Sinus rhythm with a rate of 67 bpm with flipped T waves anterior laterally Discharge Plan Triage Chief Complaint: Shortness of Breath ED Provider: Gregorio Velazquez Dx/Rx/DC Orders Clinical Impression: CHF (congestive heart failure), Dyspnea, Non-ST elevation VT (NSTEMI), Pleural effusion on right Prescriptions: No Action amlodipine 10 mg tablet 10 mg PO DAILY Qty: 90 3RF cyanocobalamin (vitamin B-12) 1,000 mcg/mL kit 1,000 mcg subcut QMONTH ferrous sulfate 325 mg (65 mg iron) tablet 325 mg PO DAILY cholecalciferol (vitamin D3) 25 mcg (1,000 unit) capsule 25 mcg PO DAILY metoprolol tartrate 25 mg tablet 25 mg PO BID Qty: 180 3RF multivitamin Tablet 1 tab PO DAILY insulin glargine 100 unit/mL (3 mL) insulin pen 36 unit subcut BID insulin aspart U-100 100 unit/mL (3 mL) insulin pen 20 unit subcut TIDCM atorvastatin 20 mg tablet 20 mg PO QHS Qty: 30 1RF spironolactone 25 mg tablet 12.5 mg PO DAILY Qty: 90 3RF Hold Instructions: Potassium, Kidney function furosemide 40 mg tablet 40 mg PO BID Primary Care Provider: Angie Cheng Referrals: Angie Cheng, SURGICAL PHYSICIAN ASSISTANT-C [Primary Care Provider] - Disposition Disposition: Acute Care Hospital [facility]
--- NOTE | 2023-09-03 12:10 | RAD_ITS ---
STUDY: X-RAY CHEST REASON FOR EXAM: Male, 78 years old. Dyspnea. TECHNIQUE: Single frontal view of the chest. COMPARISON: May 15, 2023 FINDINGS: Stable cardiomegaly with valve replacement, aortic tortuosity with calcification, prominent central pulmonary arteries, low volume inspiration with mild diffuse interstitial pattern in the left lung and large right pleural effusion with compression atelectasis of the right middle and lower lobes. No acute or emergent finding. No abnormality of the visualized soft tissue structures of the upper abdomen. RAD/Chest 1 View (Portable) IMPRESSION: Stable chest with no acute or emergent finding. Electronically Signed: Jimi Stokes MD at 12:25 EST ,
[2023-09-03 12:13] LABS: Absolute Lymphocyte Count 0.43 X10^3/uL (0.83-4.51); Absolute Neutrophil Count 3.9 X10^3/uL (2.0-7.7); Basophil# 0.05 X10^3/uL; Eosinophil# 0.12 X10^3/uL; Eosinophils% 2.4 % (0-5); Hematocrit 34.6 % (40-54); Hemoglobin 10.9 g/dL (13.0-16.5); Lymphocyte # 0.43 X10^3/ul (0.83-4.51); Lymphocyte % 8.6 % (19-41); Mean Corp Hgb Conc 31.5 g/dL (32-36); Mean Corpuscular Hgb 27.9 pg (27.0-32.0); Mean Corpuscular Volume 88.5 fL (80-94); Mean Platelet Vol. 9.8 fl (6.2-12.0); Monocyte# 0.48 X10^3/uL; Monocyte% 9.6 % (0-10); NRBC Flagged by Analyzer 0 % (0-5); Neutrophil # 3.86 X10^3/uL (2.7-7.7); POSITIVE DIFFERENTIAL YES; Platelet Count 152 K/mm3 (150-450); RBC Distribution Width CV 16.3 % (11.6-14.6); RBC Distribution Width SD 52.3 fl (35.1-43.9); Red Blood Count 3.91 M/mm3 (4.6-6.2)
[2023-09-03 12:14] LABS: Differential Indicated SCAN CRITERIA MET
[2023-09-03 12:36] LABS: Anion Gap 5 (5-15); BUN 65 mg/dL (7-18); BUN/Creat Ratio 30.7 RATIO (10-20); Calcium,Total 8.7 mg/dL (8.5-10.1); Chloride 106 mmol/L (98-107); Creatinine, Serum 2.12 mg/dL (0.70-1.30); EST Glomerular Filtration Rate 32 mL/min (>60); Est Glom Filt Rate - Afr Amer 39 mL/min (>60); Glucose 174 mg/dL (74-106); Potassium 4.7 mmol/L (3.5-5.1); Sodium Level 136 mmol/L (136-145); Troponin-I HS 6898 pg/mL (3.0-78.0)
[2023-09-03 12:38] LABS: BNP,B-Type NATRIURETIC PEPTIDE 848.9 pg/mL (0-100)
--- NOTE | 2023-09-03 13:23 | ECHOL_ITS ---
Reason For Study: CHF Procedure This was a limited 2D transthoracic echocardiogram. Exam performed portable in patient room. Left Ventricle Normal LV size. The estimated ejection fraction is 35 %. There is evidence of diastolic dysfunction. Right Ventricle Normal RV size. Normal systolic function. Atria Normal left atrium. Normal right atrium. No doppler evidence for ASD. Mitral Valve There is no mitral valve stenosis. No mitral valve insufficiency. Bioprosthetic mitral valve. Tricuspid Valve There is no tricuspid stenosis. Unable to estimate RV systolic pressure due to inadequate jet, pulmonary artery pressure probably normal. Aortic Valve Trisinus/trileaflet aortic valve. Aortic sclerosis, no stenosis. No aortic valve insufficiency. Pulmonic Valve There is no pulmonic valvular stenosis. No pulmonic valve insufficiency. Great Vessels Normal aortic root. Pericardium/Pleural No pericardial effusion. Large left pleural effusion. MMode/2D Measurements & Calculations LVIDd: 5.9 cm IVSd: 1.1 cm LA dimension: 4.9 cm LVIDs: 4.9 cm LVPWd: 0.91 cm RVDd: 4.2 cm FS: 15.8 % LAV(MOD-sp4): 50.8 ml LVAd ap4: 38.0 cm2 LVAd ap2: 35.6 cm2 LVLd ap4: 9.1 cm LVLd ap2: 8.3 cm EDV(MOD-sp4): 132.4 ml EDV(MOD-sp2): 128.6 ml EDV(sp4-el): 135.2 ml EDV(sp2-el): 129.5 ml LVAs ap4: 32.5 cm2 LVAs ap2: 31.8 cm2 LVLs ap4: 8.9 cm LVLs ap2: 9.0 cm ESV(MOD-sp4): 100.0 ml ESV(MOD-sp2): 97.1 ml ESV(sp4-el): 101.2 ml ESV(sp2-el): 95.9 ml EF(MOD-sp4): 24.4 % EF(MOD-sp2): 24.5 % EF(sp4-el): 25.1 % SV(MOD-sp4): 32.4 ml SV(MOD-sp2): 31.6 ml SV(sp4-el): 33.9 ml TAPSE: 1.5 cm LA A4 area: 19.4 cm2 RA A4 area: 17.0 cm2 ECHO/Echo, Limited Study Interpretation Summary The estimated ejection fraction is 35 %. There is evidence of diastolic dysfunction. There is a moderate sized apical and septal wall motion abnormality with hypoki nesis of the segments. Aortic sclerosis, no stenosis. Bioprosthetic mitral valve. Ordering Physician: Georges Herring Referring Physician: Angie Cheng Performed By: Jennifer Urbina, KISHORE, RVT
--- NOTE | 2023-09-03 13:23 | PCM.HP.STD ---
[facility] - General General Date of Admission: 09/03/23 HPI Narrative JIMI PHELAN, is a 78 M who presents with chest pressure and shortness of breath has been getting worse over the last several weeks. He states that he has been having issues with shortness of breath for several years, couple months ago he had a thoracentesis which made him feel like a new man. He states that he used to be on Lasix twice daily as well as Aldactone and then he is not sure why but his doctor did decrease his Lasix dose to daily dosing and then his Aldactone was causing his potassium to be elevated so they discontinued that as well and then he gained about 40 pounds what appears to be water weight over the last couple months, he states that he went from a dry weight of around 180 to 190 pounds up to 220 pounds. He presents now with what appears to be a non-STEMI with elevated troponins to almost 7000 with an elevated BNP. He does have some pleural effusions worse on the right on imaging. Cardiology was notified and recommended a heparin drip. [facility] Medical History Acute on chronic diastolic (congestive) heart failure Atherosclerotic 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[place] coronary artery without angina pectoris Cardiology follow-up encounter Diabetes mellitus type II, controlled Essential (primary) hypertension Former smoker Gout History of echocardiogram History of edema History of heart attack Hyperlipidemia Ischemic cardiomyopathy Low iron Non-rheumatic mitral regurgitation Occlusion and stenosis of right carotid artery Old myocardial infarction Renal insufficiency Shortness of breath on exertion Wears glasses Wears partial dentures Home Medications atorvastatin 20 mg tablet 20 mg PO QHS CHOLESTEROL #30 tabs 10/31/18 [Rx Last Taken 09/02/23] amlodipine 10 mg tablet 10 mg PO DAILY BLOOD PRESSURE #90 tabs 07/11/21 [Rx Last Taken 09/03/23] cyanocobalamin (vitamin B-12) 1,000 mcg/mL injection kit 1,000 mcg subcut QMONTH SUPPLEMENT 07/10/22 [History Last Taken 09/11/22] metoprolol tartrate 25 mg tablet 25 mg PO BID BLOOD PRESSURE #180 tabs 01/03/23 [Rx Last Taken 09/03/23] insulin aspart U-100 100 unit/mL (3 mL) subcutaneous pen 24 unit subcut TIDCM DIABETES 07/23/23 [History Last Taken 09/03/23] insulin glargine 100 unit/mL (3 mL) subcutaneous pen 40 unit subcut BID DIABETES 07/23/23 [History Last Taken 09/03/23] multivitamin 1 tab PO DAILY SUPPLEMENT 07/23/23 [History Last Taken 09/02/23] furosemide 40 mg tablet 40 mg PO BID FLUID 08/29/23 [History Last Taken 09/03/23] Allergy/AdvReac Type Severity Reaction Status Date / Time doxycycline Allergy hives Verified 09/03/23 11:31 Family History Father CAD (coronary artery disease) Hx CABG x4 vessels Myocardial infarction, Onset Age: 50 Mother Breast cancer Other Acute on chronic diastolic (congestive) heart failure Surgical History History of coronary artery stent placement (03/09/10) History of left heart catheterization (09/22/18) History of mitral valve replacement with bioprosthetic valve (09/26/18) Social History Smoking Status: Former smoker how long ago did patient quit smokin alcohol intake: current Alcohol type: beer substance use type: does not use caffeine: Yes Type: coffee what type of physical activity do you participate in: other details: occasional rowing machine, biking frequency: other details: occasional rowing machine, biking duration: other details: occasional rowing machine, biking seatbelt use: always do you feel safe at home: Yes ROS Constitutional Constitutional: Denies chills, fatigue, fever(s) or malaise Eyes Eyes: Denies blurry vision ENT HEENT: Denies headache(s) or nasal discharge Cardiovascular Cardiovascular: Reports chest pain and dyspnea on exertion; Denies syncope Respiratory/Chest Respiratory/Chest: Denies cough, shortness of breath at rest or shortness of breath with exertion Gastrointestinal Gastrointestinal: Denies constipation, diarrhea, nausea or vomiting Genitourinary Genitourinary: Denies dysuria Neurologic Neurologic: Denies focal weakness, numbness or tremor(s) Psychiatric Psychiatric: Denies anxiety or depression Vital Signs Vital Signs Vital Signs: 09/03/23 11:29 09/03/23 11:57 09/03/23 11:57 Temperature 96 F L Temperature Source Temporal Pulse Rate 70 68 Respiratory Rate 22 H 22 H Respiratory Effort Respiratory Depth Respiratory Pattern Blood Pressure 106/51 L Blood Pressure Mean 69 Pulse Ox 90 92 92 Oxygen Delivery Method Room Air Nasal Cannula Nasal Cannula Oxygen Flow Rate (L/min) 2 2 09/03/23 11:48 09/03/23 11:59 Temperature Temperature Source Pulse Rate Respiratory Rate Respiratory Effort Short of Breath Labored Respiratory Depth Shallow Respiratory Pattern Tachypnea Blood Pressure Blood Pressure Mean Pulse Ox 88 Oxygen Delivery Method Room Air Nasal Cannula Oxygen Flow Rate (L/min) 2 Weight Weight: 212 lb Body Mass Index (BMI) 29.5 Physical Exam Narrative General: Alert, Oriented x3, Cooperative, No apparent distress HEENT: Atraumatic, PERRLA, EOMI, Normocephalic Oral: Moist Mucosa Neck: Supple, No JVD Lungs: Diminished at bases, Normal air movement, No rhonchi, No wheeze, No rales Cardiovascular: Regular rate, Regular Rhythm, Normal S1, Normal S2, No murmurs Abdomen: Soft, Non Tender, Non-Distended, No Hepato-splenomegaly Extremities: Trace edema, Capillary Refill Less than 3 Seconds Skin: No rashes, No breakdown Musculoskeletal: No Tenderness to Palpation of Joints or Extremities Neurological: Cranial nerves II-XII grossly intact, Motor Exam 5/5 strength throughout, Sensory exam intact to light touch and pain Psych/Mental Status: Normal Affect, Appropriate Results Lab / Micro Data 09/03/23 12:04 09/03/23 12:04 Labs: Laboratory Results - last 24 hr 09/03/23 12:04: WBC 5.0, RBC 3.91 L, Hgb 10.9 L, Hct 34.6 L, MCV 88.5, MCH 27.9, MCHC 31.5 L, RDW Std Deviation 52.3 H, RDW Coeff of Ngoc 16.3 H, Plt Count 152, MPV 9.8, Immature Gran % (Auto) 1.400 H, Neut % (Auto) 77.0 H, Lymph % (Auto) 8.6 L, [place] % (Auto) 9.6, Eos % (Auto) 2.4, Baso % (Auto) 1.0, Absolute Neuts (auto) 3.9, Absolute Lymphs (auto) 0.43 L, Nucleated RBC % 0, Differential Comment COMMENT, Sodium 136, Potassium 4.7, Chloride 106, Carbon Dioxide 25.0, Anion Gap 5, BUN 65 H, Creatinine 2.12 H, Est GFR (MDRD) Af Amer 39 L, Est GFR (MDRD) Non-Af 32 L, BUN/Creatinine Ratio 30.7 H, Glucose 174 H, Calcium 8.7, Troponin I High Sens 6898 H*, B-Natriuretic Peptide 848.9 H Radiology Impression Chest X-Ray 09/03/23 12:10 IMPRESSION: Stable chest with no acute or emergent finding. Electronically Signed: Jimi Stokes MD at 12:25 EST , Assessment & Plan Assessment/Plan (1) Pleural effusion on right: (2) Non-ST elevation [place] (NSTEMI): PLAN: Plan 1. Non-STEMI with hypoxia/HTN/HLD/CAD status post stent/status post mitral valve repair ? Troponins are elevated to 7000, will trend ? We will obtain an echo ? Continue with a heparin drip ? We will consult cardiology ? May benefit from a thoracentesis once the NSTEMI is resolved and he is off the heparin drip ? We will continue with his home blood pressure medications ? We will increase his Lipitor from 20 mg to 40 mg ? We will continue with IV Lasix for volume overload as he is now on 2 L nasal cannula for hypoxia ? Echo on 05/15/2023 within EF of 50% with a pulmonary artery systolic pressure of 34 mmHg 2. DM 2 ? We will decrease his home insulin dosing to 50% ? Accu-Cheks ACHS ? Sliding scale insulin ? We will monitor and make adjustments as necessary DVT: Heparin drip 75 minutes was spent on direct patient care, including documentation as well as chart review and collaboration with colleagues Charges/Coding Visit Charges Inpatient E&M: 87942 Init Hosp L3
[2023-09-03] MEDS: Heparin Injection (Vial) 5,000 UNIT/ML VIAL 7500 UNIT IV (13:28)
[2023-09-03] MEDS: HEPARIN/D5w 25,000 UNITS 25,000 UNITS/250 ML IV.SOLN. 0.1 UNITS CONT INF (13:37)
[2023-09-03 13:48] LABS: International Normalized Ratio 1.3; Prothrombin Time (Protime)PT. 15.9 SECONDS (11.7-14.9)
[2023-09-03 13:49] LABS: Partial Thromboplast Time 30.7 Seconds (24.1-36.2)
[2023-09-03 17:02] LABS: Bedside Glucose 152 mg/dL (74-106)
[2023-09-03 17:05] LABS: Troponin-I HS 26462 pg/mL (3.0-78.0)
[2023-09-03] MEDS: Insulin Lispro 100 UNIT/ML INSULN.PEN 12 UNIT SC (17:33)
[2023-09-03] MEDS: Insulin Lispro 100 UNIT/ML INSULN.PEN SC (17:33)
[2023-09-03] MEDS: 0.9% Saline Lock 10 ML Syringe IV (17:35)
[2023-09-03] MEDS: Furosemide 40 MG/4 ML Vial IV (17:35)
[2023-09-03 20:09] LABS: Partial Thromboplast Time 141.1 Seconds (24.1-36.2)
[2023-09-03] MEDS: Atorvastatin Calcium 40 MG Tablet PO (21:15)
[2023-09-03] MEDS: Metoprolol Tartrate 25 MG Tablet PO (21:15)
[2023-09-04] VITALS (9 sets, daily range): BP systolic 117–123; BP diastolic 52–61; PULSE 75–83; RESP 18–20; TEMP 36.4–37.1; O2SAT 92–95; BMI 29.2
[2023-09-04 00:55] LABS: Bedside Glucose 140 mg/dL (74-106)
[2023-09-04 04:35] LABS: Absolute Lymphocyte Count 0.48 X10^3/uL (0.83-4.51); Basophil# 0.04 X10^3/uL; Basophil% 0.8 % (0-1); Eosinophil# 0.06 X10^3/uL; Eosinophils% 1.2 % (0-5); Hematocrit 31.2 % (40-54); Hemoglobin 9.6 g/dL (13.0-16.5); Lymphocyte # 0.48 X10^3/ul (0.83-4.51); Lymphocyte % 9.3 % (19-41); Mean Corp Hgb Conc 30.8 g/dL (32-36); Mean Corpuscular Hgb 27.7 pg (27.0-32.0); Mean Corpuscular Volume 89.9 fL (80-94); Mean Platelet Vol. 9.7 fl (6.2-12.0); Monocyte# 0.52 X10^3/uL; Monocyte% 10.1 % (0-10); NRBC Flagged by Analyzer 0 % (0-5); Neutrophil # 4.02 X10^3/uL (2.7-7.7); Neutrophil % 77.8 % (47-70); POSITIVE DIFFERENTIAL YES; Platelet Count 136 K/mm3 (150-450); RBC Distribution Width SD 52.6 fl (35.1-43.9); Red Blood Count 3.47 M/mm3 (4.6-6.2); White Blood Count 5.2 K/mm3 (4.4-11.0)
[2023-09-04 04:54] LABS: Anion Gap 5 (5-15); BUN 68 mg/dL (7-18); BUN/Creat Ratio 30.5 RATIO (10-20); Calcium,Total 8.4 mg/dL (8.5-10.1); Chloride 108 mmol/L (98-107); Creatinine, Serum 2.23 mg/dL (0.70-1.30); EST Glomerular Filtration Rate 31 mL/min (>60); Est Glom Filt Rate - Afr Amer 37 mL/min (>60); Estimated Creatinine Clearance 30.01 ml/min; Glucose 197 mg/dL (74-106); Potassium 5.2 mmol/L (3.5-5.1); Sodium Level 137 mmol/L (136-145)
[2023-09-04 05:35] LABS: Partial Thromboplast Time 59.7 Seconds (24.1-36.2)
--- NOTE | 2023-09-04 05:55 | EKG12_ITS ---
Test Reason : AM EKG Blood Pressure : / mmHG Vent. Rate : 070 BPM Atrial Rate : 070 BPM P-R Int : 216 ms QRS Dur : 120 ms QT Int : 428 ms P-R-T Axes : 040 056 151 degrees QTc Int : 462 ms Sinus rhythm with 1st degree A-V block Left ventricular hypertrophy with QRS widening and repolarization abnormality ( [place] product ) Abnormal ECG When compared with ECG of 04-SEP-2023 05:51, MANUAL COMPARISON REQUIRED, DATA IS UNCONFIRMED Confirmed by CHAPITO AMBRIZ, LI ([id number]), television news video editor SHERIN FOSTER ([id number]) on 09/09/2023 10:58:34 AM Referred By: Confirmed By:KENIA URIARTE MD
[2023-09-04 06:06] LABS: Differential Indicated SCAN CRITERIA MET
[2023-09-04 06:11] LABS: Differential Comment SCANNED; Hypochromasia 1+
[2023-09-04] MEDS: amLODIPine 10 MG Tablet PO (06:48)
[2023-09-04] MEDS: Metoprolol Tartrate 25 MG Tablet PO ×2 (06:48→20:54)
[2023-09-04 07:22] LABS: Bedside Glucose 207 mg/dL (74-106)
--- NOTE | 2023-09-04 08:40 | PCM.PN.HOSP ---
Reason for Visit Reason for Visit: Diagnoses Non-ST elevation (NSTEMI) myocardial infarction (09/03/23) Pleural effusion, not elsewhere classified (09/03/23) Subjective Subjective Patient continues to report significant shortness of breath and cannot lay down flat due to his breathing, reports this has been a problem for 2 years and improved after thoracentesis and diuretic adjustments however his spironolactone was DC'd as an outpatient due to high potassium needs been gaining weight ever since and is just continue to worsen. Objective Data Objective Data Vital Signs: Vital Signs Temp Pulse Resp BP Pulse Ox O2 Del Method O2 Flow Rate 98.4 F 81 18 117/56 L 92 Nasal Cannula 3 09/04/23 06:39 09/04/23 06:48 09/04/23 06:39 09/04/23 06:39 09/04/23 06:39 09/04/23 06:39 09/04/23 06:39 Oxygen Flow Rate (L/min) 3 Oxygen Delivery Method Nasal Cannula Weight: 95.209 kg Body Mass Index (BMI) 29.2 Intake & Output: Intake and Output for Last 24 Hours 09/02/23 09/03/23 09/04/23 23:59 23:59 23:59 Intake Total 510.17 / 710.17 316.73 / 316.73 Balance 510.17 / 710.17 316.73 / 316.73 Lab / Micro Data 09/04/23 04:24 09/04/23 04:24 Labs: Laboratory Results - last 24 hr 09/03/23 12:04: WBC 5.0, RBC 3.91 L, Hgb 10.9 L, Hct 34.6 L, MCV 88.5, MCH 27.9, MCHC 31.5 L, RDW Std Deviation 52.3 H, RDW Coeff of Ngoc 16.3 H, Plt Count 152, MPV 9.8, Immature Gran % (Auto) 1.400 H, Neut % (Auto) 77.0 H, Lymph % (Auto) 8.6 L, [place] % (Auto) 9.6, Eos % (Auto) 2.4, Baso % (Auto) 1.0, Absolute Neuts (auto) 3.9, Absolute Lymphs (auto) 0.43 L, Nucleated RBC % 0, Differential Comment COMMENT, Sodium 136, Potassium 4.7, Chloride 106, Carbon Dioxide 25.0, Anion Gap 5, BUN 65 H, Creatinine 2.12 H, Est GFR (MDRD) Af Amer 39 L, Est GFR (MDRD) Non-Af 32 L, BUN/Creatinine Ratio 30.7 H, Glucose 174 H, Calcium 8.7, Troponin I High Sens 6898 H*, B-Natriuretic Peptide 848.9 H 09/03/23 13:05: PT 15.9 H, INR 1.3, APTT 30.7 09/03/23 15:59: Troponin I High Sens 79728 H* 09/03/23 16:43: POC Glucose 152 H 09/03/23 17:30: Troponin I High Sens 05791 H* 09/03/23 19:30: APTT 141.1 H* 09/03/23 21:19: POC Glucose 140 H 09/04/23 04:24: WBC 5.2, RBC 3.47 L, Hgb 9.6 L, Hct 31.2 L, MCV 89.9, MCH 27.7, MCHC 30.8 L, RDW Std Deviation 52.6 H, RDW Coeff of Ngoc 16.0 H, Plt Count 136 L, MPV 9.7, Immature Gran % (Auto) 0.800, Neut % (Auto) 77.8 H, Lymph % (Auto) 9.3 L, [place] % (Auto) 10.1 H, Eos % (Auto) 1.2, Baso % (Auto) 0.8, Absolute Neuts (auto) 4.0, Absolute Lymphs (auto) 0.48 L, Nucleated RBC % 0, Differential Comment SCANNED, Hypochromasia 1+, APTT 59.7 H, Sodium 137, Potassium 5.2 H, Chloride 108 H, Carbon Dioxide 24.0, Anion Gap 5, BUN 68 H, Creatinine 2.23 H, Estim Creat Clear Calc 30.01, Est GFR (MDRD) Af Amer 37 L, Est GFR (MDRD) Non-Af 31 L, BUN/Creatinine Ratio 30.5 H, Glucose 197 H, Calcium 8.4 L 09/04/23 06:46: POC Glucose 207 H Radiography Diagnostic Testing: Radiology Impression Chest X-Ray 09/03/23 12:10 IMPRESSION: Stable chest with no acute or emergent finding. Electronically Signed: Jimi Stokes MD at 12:25 EST , Physical Exam Narrative General: Alert, oriented, no apparent distress HEENT: Atraumatic, normocephalic Eyes: Anicteric, normal conjunctiva, extraocular movements grossly intact Neck: Supple Respiratory: Increased shortness of breath, dull at the bases higher on the right than the left Cardiovascular: Regular rate and rhythm GI: Soft, nontender, nondistended Extremities: 1+ lower extremity edema Musculoskeletal: Moving all extremities Neuro: No overt focal neurological deficits Skin: No rashes appreciated Psych: Cooperative Assessment & Plan Assessment/Plan (1) Pleural effusion on right: (2) Non-ST elevation [place] (NSTEMI): PLAN: Plan #Non-STEMI with hypoxia/HTN/HLD/CAD status post stent/status post mitral valve repair ? Troponins are elevated to 7000, will trend ? We will obtain an echo ? Continue with a heparin drip ? We will consult cardiology ? May benefit from a thoracentesis once the NSTEMI is resolved and he is off the heparin drip ? We will continue with his home blood pressure medications ? We will increase his Lipitor from 20 mg to 40 mg ? We will continue with IV Lasix for volume overload as he is now on 2 L nasal cannula for hypoxia ? Echo on 05/15/2023 within EF of 50% with a pulmonary artery systolic pressure of 34 mmHg -09/04: Troponin elevated at roughly 7000 and increased to 27,000, has remained on heparin drip, is n.p.o., cardiology consult. Most recent echo with EF of 55% back in April, repeat limited echo ordered, monitor daily weights and I's and O's #CKD stage IIIb -Similar to previous -He was actually started on IV Lasix for volume overload given patient requiring 3 L nasal cannula to maintain O2 sats of 92% at rest -Given possible heart cath may need nephrology assistance given his CKD but concomitant volume overload and need for contrast -We will follow-up repeat echo #DM 2 ? We will decrease his home insulin dosing to 50% ? Accu-Cheks ACHS ? Sliding scale insulin ? We will monitor and make adjustments as necessary -09/04: Continue to adjust insulin based on glucose checks and n.p.o. status DVT: Heparin drip 36 minutes was spent on direct patient care, including documentation as well as chart review and collaboration with colleagues Charges/Coding Visit Charges Inpatient E&M: 39910 Subs Hosp L2
[2023-09-04 10:56] LABS: Partial Thromboplast Time 60.3 Seconds (24.1-36.2)
--- NOTE | 2023-09-04 11:25 | CASEMGMT ---
RN?CM?PLATE MAKER ZINC?CM?to room to meet with patient for initial transition planning/care coordination?assessment.?RN?CM?introduced self and role at [facility].? Pt voices understanding and consents to?assessment?at this time.? Pt sitting up in chair in room in no distress at this time.? and daughter, Madison, at bedside. Pt is A/O at this time and answers all questions appropriately.?? Care providers, pharmacy, and demographics verified/updated at this time. PCP: SUMMER Cheng Specialists: Liban Blanchard Preferred Pharmacy:[facility] retail @ discharge Insurance: [employer], [employer] benefits. Prescription Benefit:?Yes Living Will/HPOA:?Has both LW and HCPOA, who is his , Shannan. Daughter, Abby, is 1st alternative. LNOK: , 4 daughters. Living Arrangements: Lives w/his in ranch-style home w/4 steps to enter. Denies difficulty w/steps to enter home and states he does not have to go to the basement. Pt is independent w/ADL's and manages his own medications. and pt share home mgnt tasks. Transportation:? DME: ?States has the following DME:?grab bars, pulse ox, functioning glucometer w/supplies. Pt would like to get a CGM and has spoken w/PCP about this. No home O2 and pt denies having preference of DME co, should he qualify for O2 @ discharge. Pt states no need for further DME at this time.? HHC/SNF: No hx of SNF. Has had HHC in the past. Denies need for HHC at this time. Pt wishes to return home and states has no concerns with going home at time of discharge.? CM?to follow for home oxygen needs and any further discharge planning/needs.? Pt voices no further concerns/needs at this time.? Advised pt to ask for?CM?if any further questions/concerns/needs arise.? Voices understanding. PLAN:??Home Follow for possible anti-coag @ discharge and possible home O2 Theodore FLANAGANN?RN?CM
[2023-09-04 11:52] LABS: Bedside Glucose 175 mg/dL (74-106)
[2023-09-04] MEDS: HEPARIN/D5w 25,000 UNITS 25,000 UNITS/250 ML IV.SOLN. 11 UNITS CONT INF (12:40)
[2023-09-04] MEDS: Insulin Lispro 100 UNIT/ML INSULN.PEN 12 UNIT SC ×2 (12:46→18:25)
[2023-09-04] MEDS: Insulin Lispro 100 UNIT/ML INSULN.PEN SC ×2 (12:47→18:25)
[2023-09-04] MEDS: Insulin Glargine-YFGN 100 UNIT/ML Pen 20 UNIT SC (12:47)
[2023-09-04] MEDS: 0.9% Saline Lock 10 ML Syringe IV (13:18)
[2023-09-04] MEDS: Furosemide 40 MG/4 ML Vial IV (13:18)
--- NOTE | 2023-09-04 15:06 | CHAPLAIN ---
Type of Pastoral Visit _x__ Initial Visit ___ Follow-up Visit ___ On-call Visit ___ General Patient Visit ___ Spiritual Assessment ___ Family Conference ___ Bereavement ___ Rapid Response ___ Code Blue ___ Other (describe below) Pastoral Care Referral From ___ Patient _x__ Family ___ Nurse ___ Physician ___ Editing Clerk ___ Housing Property Manager ___ Other (describe below) Sacrament/Intervention _x__ Active listening ___ Anointing ___ Protestant ___ Bereavement ___ Communion ___ Casie exploration ___ ___ Life review ___ Prayer ___ Reconciliation ___ Sacrament of Sick _x__ Supportive presence ___ Wedding ___ Other (describe below) Pastoral Comments was going to this room to meet patient when his spouse walked out into hallway with a question on her face; offered to assist spouse and she began to give details of their situation and in particular their casie journey and desire for support; spouse was looking for her shearer helper who was supposed to come visit; this weight count operator continued to engage spouse in conversation and offer of support when the shearer helper of their yazdanism arrived; welcomed their shearer helper and encouraged them to continue with the patient; offer of future support given as desired
[2023-09-04 16:58] LABS: Partial Thromboplast Time 53.4 Seconds (24.1-36.2)
[2023-09-04 17:44] LABS: Bedside Glucose 152 mg/dL (74-106)
[2023-09-04] MEDS: Heparin Injection (Vial) 5,000 UNIT/ML VIAL IV (17:46)
--- NOTE | 2023-09-04 18:15 | CASEMGMT ---
Social Work - Advanced Directive Validation Unable to find Advanced directives in EMR. Met with patient, , and daughters Madison and Abby in room. Introduced to self and reason for visit. Patient is sure has completed POAHC and and Living Will. There was some expressed confusion as to which daughter was health care and which was financial POA. Patient reports belief that Abby is the health care POA. This program writer asked family to ask for SW when bringing in, so that SW can verify and assure that demographics are up to date. Family agreed. All in room talkative, and pleasant. Supportive listening offered. -KHLOE Levy
[2023-09-04] MEDS: Atorvastatin Calcium 40 MG Tablet PO (20:54)
[2023-09-04 22:11] LABS: Bedside Glucose 139 mg/dL (74-106)
[2023-09-05] VITALS (10 sets, daily range): BP systolic 96–121; BP diastolic 37–74; PULSE 72–81; RESP 14–18; TEMP 36.1–37; O2SAT 94–100; BMI 29.1
--- NOTE | 2023-09-05 | FLU_PTH ---
PATIENT: LOVE PHELAN LOC: [facility] U#:[id number] AGE/SX: 78/M ROOM: [facility] RE09/03/[address]: Dr. Kassie Velasquez MD : 1945 BED: 1 DIS: 09/07/2023 SPEC #: [id number] RECD: 09/05/23 13:42 STATUS: UMANG REQ #: [id number] JOSÉ MIGUEL: 09/05/23 00:[address]: Kassie Velasquez DEPT: CYTOLOGY RECD BY: Aurea Briones ENTERED: 09/05/23 13:42 SP TYPE: Fluid OTHR DR: MD Dr. Georges Louie MD Dr. Nagapradee Nagajothi, MD Rachel Edgar, ACOUSTICAL LOGGING ENGINEER-Med Tissues: Pleural fluid, NOS Procedures: Special Stain Group II Surgery Specimen Level IV Cytospin Fluid HEADER OPERATION: Thoracentesis, right PRE-OP DIAGNOSIS: Right pleural effusion TISSUE SUBMITTED: Pleural fluid DIAGNOSIS CYTOLOGY Pleural fluid for cytology (cytospin and cell block): Negative for malignant cells. See comment. SJ: 09/06/2023 COMMENT Correlation with clinical findings and appropriate follow up are necessary. Please make reference to previous specimen [id number], thoracentesis fluid for cytology with diagnosis of negative for malignant cells. CYTOLOGY STUDY Slides are reviewed. CYTOLOGY GROSS Received is 80 ml of red cloudy fluid labeled with the patient's name and and designated per the requisition as pleural fluid. Submitted for cytology preparation including cell block. /TRENT:ana 09/05/23 TC:5 CPT: 81189, 49406
[2023-09-05 00:02] LABS: Partial Thromboplast Time 65.8 Seconds (24.1-36.2)
[2023-09-05 05:15] LABS: Absolute Lymphocyte Count 0.55 X10^3/uL (0.83-4.51); Absolute Neutrophil Count 2.8 X10^3/uL (2.0-7.7); Basophil# 0.03 X10^3/uL; Basophil% 0.8 % (0-1); Eosinophil# 0.09 X10^3/uL; Eosinophils% 2.3 % (0-5); Hematocrit 30.7 % (40-54); Hemoglobin 9.4 g/dL (13.0-16.5); Lymphocyte # 0.55 X10^3/ul (0.83-4.51); Lymphocyte % 14.1 % (19-41); Mean Corp Hgb Conc 30.6 g/dL (32-36); Mean Corpuscular Hgb 27.6 pg (27.0-32.0); Mean Platelet Vol. 10.2 fl (6.2-12.0); Monocyte# 0.42 X10^3/uL; Monocyte% 10.8 % (0-10); NRBC Flagged by Analyzer 0 % (0-5); Neutrophil # 2.79 X10^3/uL (2.7-7.7); Neutrophil % 71.5 % (47-70); POSITIVE DIFFERENTIAL YES; Platelet Count 131 K/mm3 (150-450); RBC Distribution Width CV 16.1 % (11.6-14.6); RBC Distribution Width SD 53.1 fl (35.1-43.9); Red Blood Count 3.41 M/mm3 (4.6-6.2); White Blood Count 3.9 K/mm3 (4.4-11.0)
[2023-09-05 05:48] LABS: ALB/GLOB Ratio 0.6 RATIO (0.9-2.4); Anion Gap 7 (5-15); BUN 76 mg/dL (7-18); BUN/Creat Ratio 34.2 RATIO (10-20); Calcium,Total 8.5 mg/dL (8.5-10.1); Chloride 107 mmol/L (98-107); Creatinine, Serum 2.22 mg/dL (0.70-1.30); EST Glomerular Filtration Rate 31 mL/min (>60); Est Glom Filt Rate - Afr Amer 37 mL/min (>60); Estimated Creatinine Clearance 30.15 ml/min; Globulin 4.6 g/dL (2.2-4.2); Glucose 158 mg/dL (74-106); LDH 302 U/L (87-241); Potassium 4.5 mmol/L (3.5-5.1); Protein, Total 7.5 g/dL (6.4-8.2); Sodium Level 137 mmol/L (136-145)
--- NOTE | 2023-09-05 05:55 | EKG12_ITS ---
Test Reason : AM EKG Blood Pressure : / mmHG Vent. Rate : 072 BPM Atrial Rate : 072 BPM P-R Int : 180 ms QRS Dur : 122 ms QT Int : 424 ms P-R-T Axes : 031 025 131 degrees QTc Int : 464 ms Normal sinus rhythm Non-specific intra-ventricular conduction delay Minimal voltage criteria for LVH, may be normal variant ( [place] product ) ST & T wave abnormality, consider lateral ischemia Abnormal ECG When compared with ECG of 05-SEP-2023 04:37, MANUAL COMPARISON REQUIRED, DATA IS UNCONFIRMED Confirmed by CHAPITO AMBRIZ, LI ([id number]), video news editor SHERIN FOSTER ([id number]) on 09/09/2023 10:56:45 AM Referred By: Confirmed By:KENIA URIARTE MD
[2023-09-05 06:13] LABS: Partial Thromboplast Time 63.7 Seconds (24.1-36.2)
[2023-09-05] MEDS: amLODIPine 10 MG Tablet PO (06:39)
[2023-09-05] MEDS: Metoprolol Tartrate 25 MG Tablet PO ×2 (06:40→21:15)
[2023-09-05 06:42] LABS: International Normalized Ratio 1.4; Prothrombin Time (Protime)PT. 17.1 SECONDS (11.7-14.9)
[2023-09-05 06:51] LABS: Differential Indicated SCAN CRITERIA MET
[2023-09-05 06:58] LABS: Differential Comment SCANNED
[2023-09-05 07:00] LABS: Bedside Glucose 156 mg/dL (74-106)
--- NOTE | 2023-09-05 08:18 | CASEMGMT ---
Addendum entered and electronically signed by Taisha Bettencourt 09/05/23 15:17: Social Work - Advanced Directive Validation Family brought in POAHC identifying Shannan as primary POAHC and daughter Abby as the alternate. Living Will was not brought in, thought identified on POAHC to be in place. Demographics updated. -KHLOE Levy Original Note: Social Work SW met w/pt and family yesterday, family to bring in POA paperwork as documented by SW in prior note. GEOFFREY Fernandes-S
--- NOTE | 2023-09-05 08:40 | PCM.PN.HOSP ---
Reason for Visit Reason for Visit: Diagnoses Non-ST elevation (NSTEMI) myocardial infarction (09/03/23) Pleural effusion, not elsewhere classified (09/03/23) Subjective Subjective Patient had some pain/feeling of indigestion this morning that is since resolved, feels better than he did yesterday Objective Data Objective Data Vital Signs: Vital Signs Temp Pulse Resp BP Pulse Ox O2 Del Method O2 Flow Rate 97.4 F L 81 18 121/55 H 95 Nasal Cannula 3 09/05/23 06:30 09/05/23 06:40 09/05/23 06:30 09/05/23 06:30 09/05/23 08:00 09/05/23 08:00 09/05/23 08:00 Oxygen Flow Rate (L/min) 3 Oxygen Delivery Method Nasal Cannula Weight: 94.7 kg Body Mass Index (BMI) 29.1 Intake & Output: Intake and Output for Last 24 Hours 09/03/23 09/04/23 09/05/23 23:59 23:59 23:59 Intake Total 510.17 / 710.17 1123.76 / 1273.76 250 / 250 Balance 510.17 / 710.17 1123.76 / 1273.76 250 / 250 Lab / Micro Data 09/05/23 04:40 09/05/23 04:40 Labs: Laboratory Results - last 24 hr 09/04/23 09:19: Troponin I High Sens 12164 H* 09/04/23 10:22: APTT 60.3 H 09/04/23 11:34: POC Glucose 175 H 09/04/23 16:30: APTT 53.4 H 09/04/23 17:04: POC Glucose 152 H 09/04/23 20:59: POC Glucose 139 H 09/04/23 22:30: APTT 65.8 H 09/05/23 04:40: WBC 3.9 L, RBC 3.41 L, Hgb 9.4 L, Hct 30.7 L, MCV 90.0, MCH 27.6, MCHC 30.6 L, RDW Std Deviation 53.1 H, RDW Coeff of Ngoc 16.1 H, Plt Count 131 L, MPV 10.2, Immature Gran % (Auto) 0.500, Neut % (Auto) 71.5 H, Lymph % (Auto) 14.1 L, [place] % (Auto) 10.8 H, Eos % (Auto) 2.3, Baso % (Auto) 0.8, Absolute Neuts (auto) 2.8, Absolute Lymphs (auto) 0.55 L, Nucleated RBC % 0, Differential Comment SCANNED, Diff Path Review February, PT 17.1 H, INR 1.4, APTT 63.7 H, Sodium 137, Potassium 4.5, Chloride 107, Carbon Dioxide 23.0, Anion Gap 7, BUN 76 H, Creatinine 2.22 H, Estim Creat Clear Calc 30.15, Est GFR (MDRD) Af Amer 37 L, Est GFR (MDRD) Non-Af 31 L, BUN/Creatinine Ratio 34.2 H, Glucose 158 H, Calcium 8.5, Lactate Dehydrogenase 302 H, Total Protein 7.5, Globulin 4.6 H, Albumin/Globulin Ratio 0.6 L 09/05/23 06:35: POC Glucose 156 H Radiography Diagnostic Testing: Radiology Impression Echocardiogram 09/03/23 13:23 Interpretation Summary The estimated ejection fraction is 35 %. There is evidence of diastolic dysfunction. There is a moderate sized apical and septal wall motion abnormality with hypokinesis of the segments. Aortic sclerosis, no stenosis. Bioprosthetic mitral valve. Ordering Physician: Georges Herring Referring Physician: Angie Cheng Performed By: Jennifer Urbina, VINNYCS, RVT Physical Exam Narrative General: Alert, oriented, no apparent distress HEENT: Atraumatic, normocephalic Eyes: Anicteric, normal conjunctiva, extraocular movements grossly intact Neck: Supple Respiratory: Work of breathing slightly better than yesterday, dull at the bases higher on the right than the left Cardiovascular: Regular rate and rhythm GI: Soft, nontender, nondistended Extremities: Lower extremity edema now trace Musculoskeletal: Moving all extremities Neuro: No overt focal neurological deficits Skin: No rashes appreciated Psych: Cooperative Assessment & Plan Assessment/Plan (1) Pleural effusion on right: (2) Non-ST elevation [place] (NSTEMI): PLAN: Plan #Non-STEMI with hypoxia/HTN/HLD/CAD status post stent/status post mitral valve repair/new onset heart failure with reduced ejection fraction ? Troponins are elevated to 7000, will trend ? We will obtain an echo ? Continue with a heparin drip ? We will consult cardiology ? May benefit from a thoracentesis once the NSTEMI is resolved and he is off the heparin drip ? We will continue with his home blood pressure medications ? We will increase his Lipitor from 20 mg to 40 mg ? We will continue with IV Lasix for volume overload as he is now on 2 L nasal cannula for hypoxia ? Echo on 05/15/2023 within EF of 50% with a pulmonary artery systolic pressure of 34 mmHg -09/04: Troponin elevated at roughly 7000 and increased to 27,000, has remained on heparin drip, is n.p.o., cardiology consult. Most recent echo with EF of 55% back in April, repeat limited echo ordered, monitor daily weights and I's and O's -09/05: Echo with newly reduced EF of 35%, was normal in April, patient also has wall motion abnormalities. Remains on heparin, seen in consult with cardiology as patient will need heart cath but it was recommended consulting nephrology given kidney function in addition to fluid overload and need for heart cath #Recurrent large right pleural effusion -Suspect this is a large part of patient's shortness of breath, has required drainage in the past -Patient will have therapeutic thoracentesis today #CKD stage IIIb -Similar to previous -He was actually started on IV Lasix for volume overload given patient requiring 3 L nasal cannula to maintain O2 sats of 92% at rest -Given possible heart cath may need nephrology assistance given his CKD but concomitant volume overload and need for contrast -We will follow-up repeat echo -09/05: Patient was put on Lasix on admission, nephrology consulted, metolazone x1 given #DM 2 ? We will decrease his home insulin dosing to 50% ? Accu-Cheks ACHS ? Sliding scale insulin ? We will monitor and make adjustments as necessary -09/04: Continue to adjust insulin based on glucose checks and n.p.o. status DVT: Heparin drip 40 minutes was spent on direct patient care, including documentation as well as chart review and collaboration with colleagues Charges/Coding Visit Charges Inpatient E&M: 57139 Subs Hosp L2
[2023-09-05] MEDS: Furosemide 40 MG/4 ML Vial IV ×2 (09:52→18:07)
[2023-09-05] MEDS: metOLazone 5 MG Tablet PO (09:53)
[2023-09-05] MEDS: HEPARIN/D5w 25,000 UNITS 25,000 UNITS/250 ML IV.SOLN. 12 UNITS CONT INF (10:05)
[2023-09-05 10:23] LABS: Bedside Glucose 169 mg/dL (74-106)
[2023-09-05] MEDS: Lidocaine 2% (20 ml mdv) 20 ML Vial INFILT (12:30)
--- NOTE | 2023-09-05 12:34 | PCM.CONS.C ---
Assessment & Plan Assessment/Plan (1) Non-ST elevation OR (NSTEMI): PLAN: Continue current medical management. Consider renal evaluation and also thoracentesis if possible to optimize patient's condition prior to coronary angiography. HPI Consult Data Date of Consult: 09/05/23 HPI Narrative Reason for Consultation: Non-STEMI HPI Narrative: LOVE PHELAN, is a 78 M who presents with shortness of breath and was found to have a non-STEMI with a peak high-sensitivity troponin of over 27,000 which is started trending down. Patient also has renal failure and bilateral pleural effusions. He is currently unable to lie down flat. In the past thoracentesis has helped his breathing significantly. Review of systems: All systems reviewed. All else is negative except as in HPI [facility] Medical History Acute on chronic diastolic (congestive) heart failure Atherosclerotic 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[place] coronary artery without angina pectoris Cardiology follow-up encounter Diabetes mellitus type II, controlled Essential (primary) hypertension Former smoker Gout History of echocardiogram History of edema History of heart attack Hyperlipidemia Ischemic cardiomyopathy Low iron Non-rheumatic mitral regurgitation Occlusion and stenosis of right carotid artery Old myocardial infarction Renal insufficiency Shortness of breath on exertion Wears glasses Wears partial dentures Home Medications atorvastatin 20 mg tablet 20 mg PO QHS CHOLESTEROL #30 tabs 10/31/18 [Rx Last Taken 09/02/23] amlodipine 10 mg tablet 10 mg PO DAILY BLOOD PRESSURE #90 tabs 07/11/21 [Rx Last Taken 09/03/23] cyanocobalamin (vitamin B-12) 1,000 mcg/mL injection kit 1,000 mcg subcut QMONTH SUPPLEMENT 07/10/22 [History Last Taken 09/11/22] metoprolol tartrate 25 mg tablet 25 mg PO BID BLOOD PRESSURE #180 tabs 01/03/23 [Rx Last Taken 09/03/23] insulin aspart U-100 100 unit/mL (3 mL) subcutaneous pen 24 unit subcut TIDCM DIABETES 07/23/23 [History Last Taken 09/03/23] insulin glargine 100 unit/mL (3 mL) subcutaneous pen 40 unit subcut BID DIABETES 07/23/23 [History Last Taken 09/03/23] multivitamin 1 tab PO DAILY SUPPLEMENT 07/23/23 [History Last Taken 09/02/23] furosemide 40 mg tablet 40 mg PO BID FLUID 08/29/23 [History Last Taken 09/03/23] Allergy/AdvReac Type Severity Reaction Status Date / Time doxycycline Allergy hives Verified 09/03/23 11:31 Family History Father CAD (coronary artery disease) Hx CABG x4 vessels Myocardial infarction, Onset Age: 50 Mother Breast cancer Other Acute on chronic diastolic (congestive) heart failure Surgical History History of coronary artery stent placement (03/09/10) History of left heart catheterization (09/22/18) History of mitral valve replacement with bioprosthetic valve (09/26/18) Social History Smoking Status: Former smoker how long ago did patient quit smokin alcohol intake: current Alcohol type: beer substance use type: does not use caffeine: Yes Type: coffee what type of physical activity do you participate in: other details: occasional rowing machine, biking frequency: other details: occasional rowing machine, biking duration: other details: occasional rowing machine, biking seatbelt use: always do you feel safe at home: Yes Physical Exam Const alert and oriented x3 HEENT normocephalic Eyes no scleral icterus Resp Resp Narrative: Decreased breath sounds in both bases with the right being worse than the left. Extremity Extremity Narrative: 1+ pitting edema Psych mental status grossly normal Risk Stratification Risk Stratification Applicable: No Charges/Coding Visit Charges Inpatient E&M: 18606 Init Hosp L2 Objective Data Vital Signs: Vital Signs Temp Pulse Resp BP Pulse Ox O2 Del Method O2 Flow Rate 97.0 F L 72 14 120/52 L 94 Nasal Cannula 3 09/05/23 09:49 09/05/23 09:49 09/05/23 09:49 09/05/23 09:49 09/05/23 09:49 09/05/23 10:13 09/05/23 10:13 Oxygen Flow Rate (L/min) 3 Oxygen Delivery Method Nasal Cannula Weight: 208 lb 12.444 oz Body Mass Index (BMI) 29.1 Intake & Output: Intake and Output for Last 24 Hours 09/03/23 09/04/23 09/05/23 23:59 23:59 23:59 Intake Total 510.17 / 710.17 1123.76 / 1273.76 443.9 / 443.9 Balance 510.17 / 710.17 1123.76 / 1273.76 443.9 / 443.9 Lab / Micro Data 09/05/23 04:40 09/05/23 04:40 Labs: Laboratory Results - last 24 hr 09/04/23 16:30: APTT 53.4 H 09/04/23 17:04: POC Glucose 152 H 09/04/23 20:59: POC Glucose 139 H 09/04/23 22:30: APTT 65.8 H 09/05/23 04:40: WBC 3.9 L, RBC 3.41 L, Hgb 9.4 L, Hct 30.7 L, MCV 90.0, MCH 27.6, MCHC 30.6 L, RDW Std Deviation 53.1 H, RDW Coeff of Ngoc 16.1 H, Plt Count 131 L, MPV 10.2, Immature Gran % (Auto) 0.500, Neut % (Auto) 71.5 H, Lymph % (Auto) 14.1 L, [place] % (Auto) 10.8 H, Eos % (Auto) 2.3, Baso % (Auto) 0.8, Absolute Neuts (auto) 2.8, Absolute Lymphs (auto) 0.55 L, Nucleated RBC % 0, Differential Comment SCANNED, Diff Path Review February, PT 17.1 H, INR 1.4, APTT 63.7 H, Sodium 137, Potassium 4.5, Chloride 107, Carbon Dioxide 23.0, Anion Gap 7, BUN 76 H, Creatinine 2.22 H, Estim Creat Clear Calc 30.15, Est GFR (MDRD) Af Amer 37 L, Est GFR (MDRD) Non-Af 31 L, BUN/Creatinine Ratio 34.2 H, Glucose 158 H, Calcium 8.5, Lactate Dehydrogenase 302 H, Total Protein 7.5, Globulin 4.6 H, Albumin/Globulin Ratio 0.6 L 09/05/23 06:35: POC Glucose 156 H 09/05/23 09:46: POC Glucose 169 H Cardiology Labs/Tests 09/04/23 16:30: APTT 53.4 H 09/04/23 22:30: APTT 65.8 H 09/05/23 04:40: WBC 3.9 L, RBC 3.41 L, Hgb 9.4 L, Hct 30.7 L, MCV 90.0, MCH 27.6, MCHC 30.6 L, Plt Count 131 L, MPV 10.2, Immature Gran % (Auto) 0.500, Neut % (Auto) 71.5 H, Lymph % (Auto) 14.1 L, [place] % (Auto) 10.8 H, Eos % (Auto) 2.3, Baso % (Auto) 0.8, Absolute Neuts (auto) 2.8, Nucleated RBC % 0, PT 17.1 H, INR 1.4, APTT 63.7 H, Sodium 137, Potassium 4.5, Chloride 107, Carbon Dioxide 23.0, Anion Gap 7, BUN 76 H, Creatinine 2.22 H, Est GFR (MDRD) Af Amer 37 L, Est GFR (MDRD) Non-Af 31 L, BUN/Creatinine Ratio 34.2 H, Glucose 158 H, Calcium 8.5 Rhythm: EKG: ECHO: Stress Test: Cardiac Cath: PCI: CT Surgery: Holter monitor: EPS: PPM: CXR: Chest CT Scan:
--- NOTE | 2023-09-05 12:45 | RAD_ITS ---
STUDY: X-RAY CHEST REASON FOR EXAM: Male, 78 years old. Post thora TECHNIQUE: AP inspiration and expiration views. COMPARISON: Comparison is made with prior study dated September 03, 2023. FINDINGS: The patient is status post right thoracentesis. There is no evidence of pneumothorax. Residual bibasilar pleural-parenchymal changes. RAD/Chest Insp/Exp 2 View IMPRESSION: No evidence of pneumothorax on the post right thoracentesis examination. Electronically Signed: Amarjit Cruz MD at 13:51 EST ,
--- NOTE | 2023-09-05 12:47 | PRO.PCM_ITS ---
Procedure Report Date of Procedure: 09/05/23 Assessment & Plan Assessment/Plan (1) Pleural effusion on right: PLAN: PROCEDURE: Ultrasound Guided Thoracentesis ORDERING PROVIDER: Dr. Kassie Velasquez INDICATION: Male, 78 years old. Large right pleural effusion. PROVIDER: CRISELDA Schneider PROCEDURE: This thoracentesis was ordered by Dr. Kassie Velasquez. A discussion of risk versus benefit was had between Dr. Kassie Velasquez and myself, including the patient's [place] [address] in the setting of CKD stage IIIb with a GFR of 31 and creatinine of 2.22. The patient is also requiring 3 L of oxygen, despite baseline at room air. Cardiology recommends for renal evaluation and also thoracentesis if possible to optimize patient's condition prior to coronary angiography. Given the low bleeding risk of the procedure and benefit to optimize oxygenation and decrease cardiac workload, thoracentesis was performed with the patient remaining on heparin drip. The risks, benefits, and alternatives to the procedure were explained to the patient. The specific risks of bleeding, infection, and pneumothorax requiring chest tube insertion were discussed and accepted. Written informed consent was obtained. The patient was placed in the sitting, upright position. Ultrasonographic evaluation of the bilateral lower pleural spaces was carried out. An adequate pocket was identified in the right lower pleural space.The overlying skin was prepped and draped in sterile fashion. 2% lidocaine was administered subcutaneously for local anesthesia. Under ultrasound guidance, a 5-[place] thoracentesis needle/catheter system was adv anced into the right posterior lower pleural fluid collection. 2060 ml of clear yellow colored fluid was drained. 100 mL of this fluid was collected and sent to the lab for analysis, as per requesting physician. The catheter was removed, and a sterile dressing was applied. Pressure was held at the dressing site for 5 minutes. The patient tolerated the procedure well. A chest x-ray was ordered. IMPRESSION: Successful ultrasound-guided thoracentesis of large right pleural effusion. Procedures Radiology Radiology US Procedures: [id number] Thoracentesis
--- NOTE | 2023-09-05 13:03 | PCM.CONS.R ---
Assessment & Plan Assessment/Plan (1) Chronic kidney disease, stage 3b: PLAN: Baseline creatinine appears to be around 1.8-2.0. [facility] that he has CKD at baseline. We will check a urine analysis to see if any proteinuria. Currently has NSTEMI, congestive heart failure. Troponins are elevated. Discussed with cardiology, he will need coronary angiogram. However he is about 14 pounds above his estimated dry weight and is unable to lie down flat. Discussed with hospitalist, he will get pleural tap today afternoon. We will also attempt to diurese him for today with Lasix and 1 dose of metolazone. If oxygenation is better, most likely angiogram tomorrow. Explained the risk of contrast nephropathy. He has CKD at baseline and current creatinine is close to baseline hence the risk is not any different. Discussed with hospitalist Discussed with cardiology Discussed with family at bedside HPI Consult Data Date of Consult: 09/05/23 HPI Narrative Reason for Consultation: CKD stage IIIb HPI Narrative: LOVE PHELAN, is a 78 M who presents To the hospital with shortness of breath. Nephrology on consultation in view of CKD. On review of lab data, it seems he has CKD stage IIIb with baseline creatinine recently between 1.8-2.0. History of congestive heart failure. Sees cardiology, was started on a loop diuretic and spironolactone. He has lost significant amount of weight all the way down to 198 pounds which was his baseline. Apparently developed hyperkalemia from Aldactone hence that was held. Gained weight again and is now up to 212 pounds. Chest x-ray is pretty wet, right-sided effusion. Currently denies any urinary complaints. On O2 nasal cannula 2 to 3 L. [facility] Medical History Acute on chronic diastolic (congestive) heart failure Atherosclerotic 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[place] coronary artery without angina pectoris Cardiology follow-up encounter Diabetes mellitus type II, controlled Essential (primary) hypertension Former smoker Gout History of echocardiogram History of edema History of heart attack Hyperlipidemia Ischemic cardiomyopathy Low iron Non-rheumatic mitral regurgitation Occlusion and stenosis of right carotid artery Old myocardial infarction Renal insufficiency Shortness of breath on exertion Wears glasses Wears partial dentures Home Medications atorvastatin 20 mg tablet 20 mg PO QHS CHOLESTEROL #30 tabs 01/04/19 [Rx Last Taken 09/02/23] amlodipine 10 mg tablet 10 mg PO DAILY BLOOD PRESSURE #90 tabs 07/11/21 [Rx Last Taken 09/03/23] cyanocobalamin (vitamin B-12) 1,000 mcg/mL injection kit 1,000 mcg subcut QMONTH SUPPLEMENT 07/10/22 [History Last Taken 09/11/22] metoprolol tartrate 25 mg tablet 25 mg PO BID BLOOD PRESSURE #180 tabs 01/03/23 [Rx Last Taken 09/03/23] insulin aspart U-100 100 unit/mL (3 mL) subcutaneous pen 24 unit subcut TIDCM DIABETES 07/23/23 [History Last Taken 09/03/23] insulin glargine 100 unit/mL (3 mL) subcutaneous pen 40 unit subcut BID DIABETES 07/23/23 [History Last Taken 09/03/23] multivitamin 1 tab PO DAILY SUPPLEMENT 07/23/23 [History Last Taken 09/02/23] furosemide 40 mg tablet 40 mg PO BID FLUID 08/29/23 [History Last Taken 09/03/23] Allergy/AdvReac Type Severity Reaction Status Date / Time doxycycline Allergy hives Verified 09/03/23 11:31 Family History Father CAD (coronary artery disease) Hx CABG x4 vessels Myocardial infarction, Onset Age: 50 Mother Breast cancer Other Acute on chronic diastolic (congestive) heart failure Surgical History History of coronary artery stent placement (03/09/10) History of left heart catheterization (09/22/18) History of mitral valve replacement with bioprosthetic valve (09/26/18) Social History Smoking Status: Former smoker how long ago did patient quit smokin alcohol intake: current Alcohol type: beer substance use type: does not use caffeine: Yes Type: coffee what type of physical activity do you participate in: other details: occasional rowing machine, biking frequency: other details: occasional rowing machine, biking duration: other details: occasional rowing machine, biking seatbelt use: always do you feel safe at home: Yes ROS ROS Narrative Negative except above Physical Exam Narrative Alert awake oriented x 3 no obvious distress no pallor no icterus no JVD s1s2 no murmurs lungs clear abdomen soft no organomegaly no edema no cyanosis Lab / Micro Data 09/05/23 04:40 09/05/23 04:40 Labs: Laboratory Results - last 24 hr 09/04/23 16:30: APTT 53.4 H 09/04/23 17:04: POC Glucose 152 H 09/04/23 20:59: POC Glucose 139 H 09/04/23 22:30: APTT 65.8 H 09/05/23 04:40: WBC 3.9 L, RBC 3.41 L, Hgb 9.4 L, Hct 30.7 L, MCV 90.0, MCH 27.6, MCHC 30.6 L, RDW Std Deviation 53.1 H, RDW Coeff of Ngoc 16.1 H, Plt Count 131 L, MPV 10.2, Immature Gran % (Auto) 0.500, Neut % (Auto) 71.5 H, Lymph % (Auto) 14.1 L, [place] % (Auto) 10.8 H, Eos % (Auto) 2.3, Baso % (Auto) 0.8, Absolute Neuts (auto) 2.8, Absolute Lymphs (auto) 0.55 L, Nucleated RBC % 0, Differential Comment SCANNED, Diff Path Review February, PT 17.1 H, INR 1.4, APTT 63.7 H, Sodium 137, Potassium 4.5, Chloride 107, Carbon Dioxide 23.0, Anion Gap 7, BUN 76 H, Creatinine 2.22 H, Estim Creat Clear Calc 30.15, Est GFR (MDRD) Af Amer 37 L, Est GFR (MDRD) Non-Af 31 L, BUN/Creatinine Ratio 34.2 H, Glucose 158 H, Calcium 8.5, Lactate Dehydrogenase 302 H, Total Protein 7.5, Globulin 4.6 H, Albumin/Globulin Ratio 0.6 L 09/05/23 06:35: POC Glucose 156 H 09/05/23 09:46: POC Glucose 169 H
[2023-09-05 13:07] LABS: Cytology, Body Fluid / CSF SEE PATHOLOGY REPORT
[2023-09-05 13:25] LABS: Body Fluid Mononuclear WBC # 0.204 10^3/uL; Body Fluid Mononuclear WBC % 96.6 %; Body Fluid Polynuclear WBC # 0.007 10^3/uL; Body Fluid Polynuclear WBC % 3.4 %; Body Fluid Total Cells Counted 0.234 10^3/ul; Red Cell Count/Body Fluid 0.007 10^6/ul; White Blood Count/Body Fluid 0.211 10^3/uL
[2023-09-05 13:58] LABS: Glucose, Body Fluid 167 mg/dL (40-70); LDH,Body Fluid 87 Units/L (Not Establ.); Protein, Body Fluid 3.4 g/dL (Not Establ.)
[2023-09-05 14:33] LABS: Lymphocytes 58 %; Macrophages 30 %; Mesothelial Cells 3 %; Monocytes 5 %; Neutrophil (Segs) 4 %
[2023-09-05 14:34] LABS: Appearance/Body Fluid SL CLDY; Auto B Fluid Analyzer BKGD Ct COUNTS W/IN LIMITS (W/IN LIMITS); Body Fluid QC Type(s) BF1Q; Color/Body Fluid YELLOW; Source- Body Fluid THORACENTESIS
--- NOTE | 2023-09-05 14:48 | CHAPLAIN ---
Type of Pastoral Visit ___ Initial Visit ___ Follow-up Visit ___ On-call Visit _x__ General Patient Visit ___ Spiritual Assessment ___ Family Conference ___ Bereavement ___ Rapid Response ___ Code Blue ___ Other (describe below) Pastoral Care Referral From _x__ Patient ___ Family ___ Nurse ___ Physician ___ Reel Slitter ___ Glass Grinder ___ Other (describe below) Sacrament/Intervention _x__ Active listening ___ Anointing ___ Yazdanism ___ Bereavement ___ Communion _x__ Casie exploration ___ ___ Life review _x__ Prayer ___ Reconciliation ___ Sacrament of Sick _x__ Supportive presence ___ Wedding ___ Other (describe below) Pastoral Comments patient had just returned from procedure; more procedure to occur tomorrow; spouse and two daughters are with pt in the room; offer of support and care; patient reports a prayer would be fine but he has no other needs at this time; casual conversation
[2023-09-05] MEDS: Insulin Lispro 100 UNIT/ML INSULN.PEN 12 UNIT SC (15:47)
[2023-09-05] MEDS: Insulin Lispro 100 UNIT/ML INSULN.PEN SC ×2 (15:48→21:15)
[2023-09-05 15:51] LABS: Pathologist Review Reviewed
[2023-09-05 16:36] LABS: Bacteria 0 SEEN /hpf (None Seen); Mucous, Urine 0 SEEN /hpf (<or=2+); Red Blood Cells-Urine 0 SEEN /hpf (0-5); Squamous Epithelial Cells - UA 0 SEEN /hpf (0-5); White Blood Cells 0 SEEN /hpf (0-5)
[2023-09-05 16:43] LABS: Color, Urine Yellow (Yellow); Glucose, Dipstick Normal (Normal); Ketone-Dipstick Negative (Negative); Leukocyte Esterase-Dipstick Negative /ul (Negative); Nitrite-Dipstick Negative (Negative); Occult Blood-Urine Negative /ul (Negative); Protein-Dipstick 30 mg/dl (Negative); Specific Gravity, Urine 1.015 (1.002-1.030); Urine Bilirubin Dipstick Negative (Negative); Urine Clarity Clear (Clear); Urine Urobilinogen Normal (Normal)
[2023-09-05 16:54] LABS: Hyaline Cast 0-5 SEEN /lpf (0-5)
[2023-09-05 18:38] LABS: Bedside Glucose 262 mg/dL (74-106)
[2023-09-05] MEDS: Insulin Glargine-YFGN 100 UNIT/ML Pen 20 UNIT SC (21:15)
[2023-09-05] MEDS: Atorvastatin Calcium 40 MG Tablet PO (21:15)
[2023-09-05 22:43] LABS: Bedside Glucose 173 mg/dL (74-106)
[2023-09-06] VITALS (20 sets, daily range): BP systolic 111–146; BP diastolic 53–65; PULSE 70–79; RESP 16–19; TEMP 35.9–37; O2SAT 93–98; BMI 28.7
--- NOTE | 2023-09-06 01:45 | EKG12_ITS ---
Test Reason : AM EKG Blood Pressure : / mmHG Vent. Rate : 078 BPM Atrial Rate : 078 BPM P-R Int : 184 ms QRS Dur : 114 ms QT Int : 402 ms P-R-T Axes : 046 056 137 degrees QTc Int : 458 ms Normal sinus rhythm ST & T wave abnormality, consider lateral ischemia Abnormal ECG When compared with ECG of 03-SEP-2023 11:58, MANUAL COMPARISON REQUIRED, DATA IS UNCONFIRMED Confirmed by CHAPITO AMBRIZ, LI ([id number]), tape editor SHERIN FOSTER ([id number]) on 09/09/2023 11:03:19 AM Referred By: Confirmed By:KENIA URIARTE MD
[2023-09-06 06:08] LABS: Absolute Lymphocyte Count 0.55 X10^3/uL (0.83-4.51); Absolute Neutrophil Count 3.3 X10^3/uL (2.0-7.7); Basophil# 0.04 X10^3/uL; Basophil% 0.9 % (0-1); Eosinophil# 0.08 X10^3/uL; Eosinophils% 1.8 % (0-5); Hematocrit 29.3 % (40-54); Hemoglobin 9.1 g/dL (13.0-16.5); Lymphocyte # 0.55 X10^3/ul (0.83-4.51); Lymphocyte % 12.6 % (19-41); Mean Corp Hgb Conc 31.1 g/dL (32-36); Mean Corpuscular Hgb 28.3 pg (27.0-32.0); Mean Platelet Vol. 10.3 fl (6.2-12.0); Monocyte# 0.41 X10^3/uL; Monocyte% 9.4 % (0-10); NRBC Flagged by Analyzer 0 % (0-5); Neutrophil # 3.28 X10^3/uL (2.7-7.7); Neutrophil % 74.8 % (47-70); POSITIVE DIFFERENTIAL YES; Platelet Count 128 K/mm3 (150-450); RBC Distribution Width CV 15.9 % (11.6-14.6); Red Blood Count 3.22 M/mm3 (4.6-6.2); White Blood Count 4.4 K/mm3 (4.4-11.0)
[2023-09-06 06:13] LABS: Differential Indicated SCAN CRITERIA MET
[2023-09-06 06:24] LABS: Partial Thromboplast Time 69.7 Seconds (24.1-36.2)
[2023-09-06] MEDS: Metoprolol Tartrate 25 MG Tablet PO ×2 (06:25→22:18)
[2023-09-06] MEDS: amLODIPine 10 MG Tablet PO (06:25)
[2023-09-06] MEDS: HEPARIN/D5w 25,000 UNITS 25,000 UNITS/250 ML IV.SOLN. 12 UNITS CONT INF (06:26)
[2023-09-06 06:34] LABS: Differential Comment SCANNED
[2023-09-06 06:39] LABS: Anion Gap 5 (5-15); BUN 84 mg/dL (7-18); BUN/Creat Ratio 35.9 RATIO (10-20); Calcium,Total 8.5 mg/dL (8.5-10.1); Chloride 106 mmol/L (98-107); Creatinine, Serum 2.34 mg/dL (0.70-1.30); EST Glomerular Filtration Rate 29 mL/min (>60); Est Glom Filt Rate - Afr Amer 35 mL/min (>60); Glucose 151 mg/dL (74-106); Potassium 4.6 mmol/L (3.5-5.1); Sodium Level 136 mmol/L (136-145)
--- NOTE | 2023-09-06 07:28 | PCM.PN.HOSP ---
Reason for Visit Reason for Visit: Diagnoses Non-ST elevation (NSTEMI) myocardial infarction (09/03/23) Pleural effusion, not elsewhere classified (09/03/23) Chronic kidney disease, stage 3b (09/03/23) Subjective Subjective Was actually able to sleep in the bed last night after thoracentesis, breathing is better and legs are less swollen as well. Has not had any more of the indigestion feeling Objective Data Objective Data Vital Signs: Vital Signs Temp Pulse Resp BP Pulse Ox O2 Del Method O2 Flow Rate 97.5 F L 77 18 129/59 H 96 Nasal Cannula 2 09/06/23 06:24 09/06/23 06:25 09/06/23 06:24 09/06/23 06:24 09/06/23 06:24 09/06/23 06:24 09/06/23 06:24 Oxygen Flow Rate (L/min) [3] 3 Oxygen Flow Rate (L/min) [1 ( 3 Initial Baseline)] Oxygen Flow Rate (L/min) 2 Oxygen Delivery Method [3] Nasal Cannula Oxygen Delivery Method [2] Nasal Cannula Oxygen Delivery Method [1 ( Nasal Cannula Initial Baseline)] Oxygen Delivery Method Nasal Cannula Weight: 93.5 kg Body Mass Index (BMI) 28.7 Intake & Output: Intake and Output for Last 24 Hours 09/04/23 09/05/23 09/06/23 23:59 23:59 23:59 Intake Total 1123.76 / 1273.76 683.9 / 683.9 244.2 / 244.2 Output Total 2059 / 2059 Balance 1123.76 / 1273.76 -1376.1 / -1376.1 244.2 / 244.2 Lab / Micro Data 09/06/23 05:20 09/06/23 05:20 Labs: Laboratory Results - last 24 hr 09/05/23 04:40: Diff Path Review Reviewed 09/05/23 08:00: Fluid Glucose 167 H, Fluid Total Protein 3.4, Fluid LDH 87 09/05/23 09:46: POC Glucose 169 H 09/05/23 12:58: Fluid Source THORACENTESIS, Fluid Color YELLOW, Fluid Appearance SL CLDY, Fluid WBC 0.211, Fluid RBC 0.007, Fluid Tot Cell Count 0.234, Fld Polynuclear WBCs # 0.007, Fld Polynuclear WBCs % 3.4, Fluid Mononuclear WBCs 0.204, Fld Mononuclear WBCs % 96.6, Fluid Neutrophils 4, Fluid Lymphocytes 58, Fluid Monocytes 5, Fluid Macrophages 30, Fld Mesothelial Cells 3, Fl Pathologist Comment May follow, Fluid Comment 2 SEE COMMENT 09/05/23 15:41: POC Glucose 262 H 09/05/23 16:25: Urine Color Yellow, Urine Clarity Clear, Urine pH 5.0, Ur Specific [place] 1.015, Urine Protein 30 H, Urine Glucose (UA) Normal, Urine Ketones Negative, Urine Occult Blood Negative, Urine Nitrite Negative, Urine Bilirubin Negative, Urine Urobilinogen Normal, Ur Leukocyte Esterase Negative, Urine RBC 0 SEEN, Urine WBC 0 SEEN, Ur Squamous Epith Cells 0 SEEN, Urine Bacteria 0 SEEN, Hyaline Casts 0-5 SEEN, Urine Mucus 0 SEEN 09/05/23 21:10: POC Glucose 173 H 09/06/23 05:20: WBC 4.4, RBC 3.22 L, Hgb 9.1 L, Hct 29.3 L, MCV 91.0, MCH 28.3, MCHC 31.1 L, RDW Std Deviation 53.0 H, RDW Coeff of Ngoc 15.9 H, Plt Count 128 L, MPV 10.3, Immature Gran % (Auto) 0.500, Neut % (Auto) 74.8 H, Lymph % (Auto) 12.6 L, [place] % (Auto) 9.4, Eos % (Auto) 1.8, Baso % (Auto) 0.9, Absolute Neuts (auto) 3.3, Absolute Lymphs (auto) 0.55 L, Nucleated RBC % 0, Differential Comment SCANNED, APTT 69.7 H, Sodium 136, Potassium 4.6, Chloride 106, Carbon Dioxide 25.0, Anion Gap 5, BUN 84 H, Creatinine 2.34 H, Estim Creat Clear Calc 28.60, Est GFR (MDRD) Af Amer 35 L, Est GFR (MDRD) Non-Af 29 L, BUN/Creatinine Ratio 35.9 H, Glucose 151 H, Calcium 8.5 Micro: Microbiology 09/05/23 12:58 Fluid - Thoracentesis Fluid Gram Stain - Final Radiography Diagnostic Testing: Radiology Impression Chest X-Ray 09/05/23 12:45 IMPRESSION: No evidence of pneumothorax on the post right thoracentesis examination. Electronically Signed: Amarjit Cruz MD at 13:51 EST , Physical Exam Narrative General: Alert, oriented, no apparent distress HEENT: Atraumatic, normocephalic Eyes: Anicteric, normal conjunctiva, extraocular movements grossly intact Neck: Supple Respiratory: Improving aeration, no increased work of breathing Cardiovascular: Regular rate and rhythm GI: Soft, nontender, nondistended Extremities: Lower extremity edema now trace Musculoskeletal: Moving all extremities Neuro: No overt focal neurological deficits Skin: No rashes appreciated Psych: Cooperative Assessment & Plan Assessment/Plan (1) Pleural effusion on right: (2) Non-ST elevation AL (NSTEMI): PLAN: Plan #Non-STEMI with hypoxia/HTN/HLD/CAD status post stent/status post mitral valve repair/new onset heart failure with reduced ejection fraction ? Troponins are elevated to 7000, will trend ? We will obtain an echo ? Continue with a heparin drip ? We will consult cardiology ? May benefit from a thoracentesis once the NSTEMI is resolved and he is off the heparin drip ? We will continue with his home blood pressure medications ? We will increase his Lipitor from 20 mg to 40 mg ? We will continue with IV Lasix for volume overload as he is now on 2 L nasal cannula for hypoxia ? Echo on 05/15/2023 within EF of 50% with a pulmonary artery systolic pressure of 34 mmHg -09/04: Troponin elevated at roughly 7000 and increased to 27,000, has remained on heparin drip, is n.p.o., cardiology consult. Most recent echo with EF of 55% back in April, repeat limited echo ordered, monitor daily weights and I's and O's -09/05: Echo with newly reduced EF of 35%, was normal in April, patient also has wall motion abnormalities. Remains on heparin, seen in consult with cardiology as patient will need heart cath but it was recommended consulting nephrology given kidney function in addition to fluid overload and need for heart cath -09/06: N.p.o., heparin drip, plan for heart cath, will hold a.m. dose of Lasix given pending contrast #Recurrent large right pleural effusion -Suspect this is a large part of patient's shortness of breath, has required drainage in the past -Patient will have therapeutic thoracentesis today -09/06: Status post therapeutic thoracentesis with significant improvement #CKD stage IIIb -Similar to previous -He was actually started on IV Lasix for volume overload given patient requiring 3 L nasal cannula to maintain O2 sats of 92% at rest -Given possible heart cath may need nephrology assistance given his CKD but concomitant volume overload and need for contrast -We will follow-up repeat echo -09/05: Patient was put on Lasix on admission, nephrology consulted, metolazone x1 given -09/06: We will need to monitor kidney function closely given pending heart cath, nephrology following #DM 2 ? We will decrease his home insulin dosing to 50% ? Accu-Cheks ACHS ? Sliding scale insulin ? We will monitor and make adjustments as necessary -09/04: Continue to adjust insulin based on glucose checks and n.p.o. status DVT: Heparin drip 36 minutes was spent on direct patient care, including documentation as well as chart review and collaboration with colleagues Charges/Coding Visit Charges Inpatient E&M: 03927 Subs Hosp L2
[2023-09-06 07:47] LABS: Bedside Glucose 130 mg/dL (74-106)
[2023-09-06 12:41] LABS: Bedside Glucose 154 mg/dL (74-106)
--- NOTE | 2023-09-06 14:45 | EKG12_ITS ---
Test Reason : AM EKG Blood Pressure : / mmHG Vent. Rate : 078 BPM Atrial Rate : 078 BPM P-R Int : 192 ms QRS Dur : 124 ms QT Int : 416 ms P-R-T Axes : 054 082 144 degrees QTc Int : 474 ms Normal sinus rhythm Possible Left atrial enlargement Left ventricular hypertrophy with QRS widening ( [place] product ) ST & T wave abnormality, consider lateral ischemia Abnormal ECG When compared with ECG of 06-SEP-2023 15:16, MANUAL COMPARISON REQUIRED, DATA IS UNCONFIRMED Confirmed by HARDEEP AMBRIZ, ELIZABETH ([id number]), communications editor SHERIN FOSTER ([id number]) on 09/18/2023 12:50:15 PM Referred By: Confirmed By:ELIZABETH MEIER MD
--- NOTE | 2023-09-06 14:47 | CRPHASE1_ITS ---
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 Our purpose is to help you have a full recovery and achieve the goals you set for yourself. Over the years many of our patients have returned to activities they assumed they would never do again! We can help restore your confidence and motivation to make lifestyle changes that can have a significant impact on your health and quality of life! We can help answer questions and concerns you may have about exercise, lifestyle, medications, diet, stress and anxiety which are common following a hospitalization. WE monitor ECG and vital signs during exercise and discuss your progress with you and report to your physician(s). Cardiac Rehab is proven to help reduce readmissions, improve functional capacity and lower recurrence of problems with your heart. Our Cardiac Rehab program is Certified by the [place] [employer]monary [employer] (AACVPR) and Accredited by the [employer] through our [facility]. You can contact us at . We invite you to call us with your questions or to get started in our program. If you have other questions or concerns be sure to ask your physician/provider during your follow-up visit. WE look forward to seeing you!
--- NOTE | 2023-09-06 14:48 | CRPH1.INSTRU ---
General Education Discussed with Patient CAD and cardiac anatomy and function:: Patient communicates acknowledgment and Family returns demonstration Explanation of diagnoses and procedures:: Patient communicates acknowledgment and Family returns demonstration Sign/Symptoms of MD:: Patient communicates acknowledgment and Family returns demonstration Antiplatelet therapy: Patient communicates acknowledgment and Family returns demonstration Proper use of NTG-SL: Patient communicates acknowledgment and Family returns demonstration Emergency procedures and activation of EMS: Patient communicates acknowledgment and Family returns demonstration Compliance of all prescribed medications: Patient communicates acknowledgment and Family returns demonstration Dyslipidemia Risk Factors Patient Dyslipidemia Risk Factors Are:: Total Cholesterol, Triglycerides, HDL and LDL Recommendations Recommendations Include:: Lipid profile not available Response Code Dyslipidemia Response Code:: Patient communicates acknowledgment Overweight/Obesity Risk Factors Patient Overweight/Obesity Risk Factors Are:: BMI Normal [24-29 & > 65 years old] Recommendations Recommendations Include:: Weight loss of 5-10%, Reduced calorie diet and Exercise 5-7 times/week Response Code Overweight/Obesity:: Patient communicates acknowledgment and Family communicates acknowledgment Hypertension Risk Factors Patient Hypertension Risk Factors Are:: No documented hx of HTN Recommendations Recommendations Include:: BP <130/80 if diabetic and Decrease/maintain normal body weight Response Code Hypertension:: Patient communicates acknowledgment and Family communicates acknowledgment Heart Disease Risk Factors Patient Heart Disease Risk Factors Are:: Family history of heart disease < 65 years old Recommendations Recommendations Include:: Educated family members of their risk Response Code Heart Disease Response Code:: Patient communicates acknowledgment Diabetes Risk Factors Patient Diabetes Risk Factors Are:: No documented hx of diabetes and Elevated blood sugars Recommendations Recommendations Include:: Maintain fasting blood sugars 70-110 md/dL and Maintain HgbA1c of 6% or less Response Code Diabetes:: Patient communicates acknowledgment Sedentary Risk Factors Patient Sedentary Risk Factors Are:: Lack of regular exercise Recommendations Recommendations Include:: Aerobic exercise 5-7 times/week for 20-30 minutes continuously and Monitored Outpatient Cardiac Rehab Response Code Sedentary Response Code:: Patient communicates acknowledgment
[2023-09-06] MEDS: 0.9% Normal Saline (1000mL) 1,000 ML 150 ML IV (15:11)
--- NOTE | 2023-09-06 16:23 | PCM.PN.BLA ---
Progress Note cr 2.3. breathing is better. was in angiogram earlier. ok for angiogram from nephrology standpoint. dw cardiology attending.
[2023-09-06] MEDS: Insulin Lispro 100 UNIT/ML INSULN.PEN SC ×2 (16:40→22:17)
[2023-09-06 17:18] LABS: Bedside Glucose 151 mg/dL (74-106)
[2023-09-06] MEDS: TICAGRELOR 90 MG TABLET PO (22:16)
[2023-09-06] MEDS: Insulin Glargine-YFGN 100 UNIT/ML Pen 20 UNIT SC (22:18)
[2023-09-06] MEDS: Atorvastatin Calcium 40 MG Tablet PO (22:18)
[2023-09-06 23:38] LABS: Bedside Glucose 199 mg/dL (74-106)
[2023-09-07 03:30] VITALS: BP 123/56; PULSE 75; RESP 16; TEMP 36.6; O2SAT 94
[2023-09-07 04:48] VITALS: BMI 28.8
[2023-09-07] MEDS: Heparin Injection (Vial) 5,000 UNIT/ML VIAL 5000 UNIT SC (06:37)
[2023-09-07 07:03] LABS: Absolute Lymphocyte Count 0.37 X10^3/uL (0.83-4.51); Absolute Neutrophil Count 3.9 X10^3/uL (2.0-7.7); Basophil# 0.02 X10^3/uL; Basophil% 0.4 % (0-1); Eosinophil# 0.07 X10^3/uL; Eosinophils% 1.4 % (0-5); Hematocrit 29.8 % (40-54); Hemoglobin 9.1 g/dL (13.0-16.5); Lymphocyte # 0.37 X10^3/ul (0.83-4.51); Lymphocyte % 7.6 % (19-41); Mean Corp Hgb Conc 30.5 g/dL (32-36); Mean Corpuscular Hgb 27.6 pg (27.0-32.0); Mean Corpuscular Volume 90.3 fL (80-94); Mean Platelet Vol. 9.9 fl (6.2-12.0); Monocyte# 0.42 X10^3/uL; Monocyte% 8.7 % (0-10); NRBC Flagged by Analyzer 0 % (0-5); Neutrophil # 3.93 X10^3/uL (2.7-7.7); Neutrophil % 81.3 % (47-70); POSITIVE DIFFERENTIAL YES; Platelet Count 137 K/mm3 (150-450); RBC Distribution Width CV 15.9 % (11.6-14.6); RBC Distribution Width SD 52.6 fl (35.1-43.9); White Blood Count 4.8 K/mm3 (4.4-11.0)
[2023-09-07 07:13] LABS: Bedside Glucose 144 mg/dL (74-106)
[2023-09-07 07:18] LABS: Differential Indicated SCAN CRITERIA MET
[2023-09-07 07:57] LABS: ALB/GLOB Ratio 0.7 RATIO (0.9-2.4); AST(SGOT) 20 U/L (15-37); Alanine Aminotransfer ALT/SGPT 22 U/L (16-61); Albumin, Serum 2.9 g/dL (3.2-5.0); Alkaline Phosphatase 105 U/L (45-117); Anion Gap 6 (5-15); BUN 83 mg/dL (7-18); BUN/Creat Ratio 37.9 RATIO (10-20); Calcium,Total 8.6 mg/dL (8.5-10.1); Chloride 108 mmol/L (98-107); Creatinine, Serum 2.19 mg/dL (0.70-1.30); EST Glomerular Filtration Rate 31 mL/min (>60); Est Glom Filt Rate - Afr Amer 38 mL/min (>60); Estimated Creatinine Clearance 30.56 ml/min; Globulin 4.3 g/dL (2.2-4.2); Glucose 145 mg/dL (74-106); Potassium 4.4 mmol/L (3.5-5.1); Protein, Total 7.2 g/dL (6.4-8.2); Sodium Level 138 mmol/L (136-145)
[2023-09-07 09:05] VITALS: BP 143/65; PULSE 85; RESP 18; TEMP 36.8; O2SAT 94
[2023-09-07 09:09] VITALS: PULSE 85
[2023-09-07] MEDS: amLODIPine 10 MG Tablet PO (09:09)
[2023-09-07] MEDS: TICAGRELOR 90 MG TABLET PO (09:09)
[2023-09-07] MEDS: Aspirin E.C. 81 MG Tablet PO (09:09)
[2023-09-07] MEDS: Metoprolol Tartrate 25 MG Tablet PO (09:09)
[2023-09-07] MEDS: Insulin Glargine-YFGN 100 UNIT/ML Pen 20 UNIT SC (09:10)
--- NOTE | 2023-09-07 10:00 | EKG12_ITS ---
Test Reason : POST PCI Blood Pressure : / mmHG Vent. Rate : 073 BPM Atrial Rate : 073 BPM P-R Int : 158 ms QRS Dur : 120 ms QT Int : 398 ms P-R-T Axes : 047 082 120 degrees QTc Int : 438 ms Normal sinus rhythm Incomplete left bundle branch block Nonspecific ST and T wave abnormality Abnormal ECG When compared with ECG of 06-SEP-2023 05:09, MANUAL COMPARISON REQUIRED, DATA IS UNCONFIRMED Confirmed by HARDEEP AMBRIZ, ELIZABETH ([id number]), photography editor SHERIN FOSTER ([id number]) on 09/18/2023 12:51:08 PM Referred By: [place] Confirmed By:ELIZABETH MEIER MD
[2023-09-07] MEDS: Insulin Lispro 100 UNIT/ML INSULN.PEN SC (11:49)
[2023-09-07] MEDS: Insulin Lispro 100 UNIT/ML INSULN.PEN 12 UNIT SC (11:49)
--- NOTE | 2023-09-07 12:02 | PCM.DC ---
Discharge Instructions Diet Discharge Diet: - (-DASH diet, 3000 mg sodium restriction, 2 L fluid restriction) Activity Discharge Activity: - (Increase activity as tolerated) Follow Up Care Test Results: Test results from this visit will be discussed in further detail at your follow-up appointment, if applicable. Discharge Plan Admission Admit Date/Time: 09/03/23 13:18 Primary Reason for Your Visit: Chest pressure and shortness of breath Attending Provider: Kassie Velasquez Primary Care Provider: Angie Cheng Consulting Providers: Yvette Galvan; Georges Herring; Perry Smyth Instructions Patient Instructions: Coronary Angiography, PCI Lifestyle Changes, PCI Exercising Safely After Additional Instructions / Restrictions: DISCHARGE INSTRUCTIONS PLEASE READ *Please take this with you to your next doctors appointment* -You will be discharged on aspirin, Brilinta, and an increased dose of your atorvastatin. You can take 2 of your atorvastatin's at bedtime until this prescription is finished and then you can start your 40 mg at bedtime prescription -Resume your Lasix tomorrow -You will need to follow-up with cardiology upon discharge, please call the office of Dr. Galvan upon discharge to schedule your hospital follow-up appointment ) -Please follow-up with nephrology upon discharge. Please call their office to schedule hospital follow-up appointment upon discharge. -Would recommend lab work (BMP) to check your kidney function and potassium in 2 to 3 days through your primary care physician's office. Please call their office upon discharge to obtain order for lab work. -Do only light and easy activities for 2 to 3 days after your stent placement, ask for help with chores and errands while you recover and have someone drive you to your appointments. -Unless your job involves lifting you may return to normal activities within 2 days -Please take your medications as prescribed, do not skip doses -Check your incisions every day for signs of infection which would include redness, swelling, leaking. It is normal to have a small bruise or bump where the catheter was placed but a bruise that is getting larger is not normal. Please tell your healthcare team about this. Please proceed to the emergency department if you have uncontrollable bleeding from the site. -It is important to eat a diet that is low in fat, salt, and cholesterol -You will be set up with cardiac rehab upon discharge, it is important that you follow-up -Okay to shower from the day after your heart catheterization but keep your incision site clean and dry. -Weigh yourself every day. A sudden weight gain can mean you are retaining fluid. Weigh yourself at the same time of day and in the same kind of clothes. Ideally, weigh yourself first thing in the morning after you empty your bladder, but before you eat breakfast. -Please call your physician if your weight goes up by more than 2 pounds in 1 day or 5 pounds in 1 week. This can be a sign that you are retaining more fluid than you should be. Clues to weight gain include checking your ankles for swelling, or noticing you are short of breath when you lie down -Please limit your sodium intake to less than 3 g/day. Here are tips: Limit canned, dried, packaged, and fast foods. Don't add salt to your food at the table. Season foods with herbs instead of salt when you cook. When you eat out, ask that the corporate executive chef not add any salt to your dish. Don't eat fried or greasy foods. Be careful of bottled beverages. They can contain a lot of salt -Call 911 right away if you have: -Severe shortness of breath, such that you can't catch your breath even while resting -Severe chest pain that does not resolve with rest or nitroglycerin -[place], foamy mucus with cough and shortness of breath -An ongoing rapid or irregular heartbeat -Passing out or fainting -Stroke symptoms such as sudden numbness or weakness on one side of your face, arm, or leg or sudden confusion, trouble speaking or vision changes -Also recommend following with your primary provider regarding your recurrent pleural effusion. He may need repeat imaging or just to follow clinically upon discharge -You have only been receiving 20 units of long-acting insulin at morning and bedtime and 12 units with meals. Would recommend continuing this regimen and checking your glucose. You will likely need to go back up to home doses but you will need to be careful to avoid hypoglycemia -Please call your primary care provider's office upon discharge to schedule a hospital follow up within 1 week. -For any concerning signs or symptoms please call 911 or proceed to the nearest emergency department Discharge Orders/Prescriptions Prescriptions: New atorvastatin 40 mg Tablet 40 mg PO QHS 30 Days Qty: 30 0RF aspirin 81 mg Tablet,Delayed Release (Dr/Ec) 81 mg PO DAILY 30 Days Qty: 30 0RF Brilinta 90 mg Tablet 90 mg PO BID 30 Days Qty: 60 0RF Continued amlodipine 10 mg tablet 10 mg PO DAILY Qty: 90 3RF cyanocobalamin (vitamin B-12) 1,000 mcg/mL kit 1,000 mcg subcut QMONTH Patient Comments: PATIENT INJECTS THIS ONCE A MONTH ON THE . metoprolol tartrate 25 mg tablet 25 mg PO BID Qty: 180 3RF multivitamin Tablet 1 tab PO DAILY insulin glargine 100 unit/mL (3 mL) insulin pen 40 unit subcut BID insulin aspart U-100 100 unit/mL (3 mL) insulin pen 24 unit subcut TIDCM Held furosemide 40 mg tablet 40 mg PO BID Hold Instructions: Resume on 09/08/23. Discontinued atorvastatin 20 mg tablet 20 mg PO QHS Qty: 30 1RF Referrals / Follow Up: Perry Smyth MD [Med Staff - Consulting] - Yvette Galvan MD [Med Staff - Active Staff] - Within 2 Weeks Angie Cheng NP-C [Primary Care Provider] - Within 1 Week Disposition Disposition (needs filled in before D/C Order can be placed): Home, Self Care
[2023-09-07 12:13] LABS: Bedside Glucose 190 mg/dL (74-106)
--- NOTE | 2023-09-07 12:21 | PCM.DC.SUM ---
Providers Date of Admission: 09/03/23 Date of Discharge: 09/07/23 Primary Care Physician: EMY Rahman Consultations 09/03/23 15:31 Consult: Cardiology Routine Consulting Provider: Yvette Galvan Reason for Consult: NSTEMI EMERGENT Consult: No MD Notified: Yes Date Notified: 09/03/23 Time Notified: 13:22 Method of Notification: ED Physician Initiated 09/04/23 15:27 Consult: Nephrology Routine Consulting Provider: Perry Smyth Reason for Consult: CKD, fluid overloaded on lasix, needs heart cath EMERGENT Consult: No MD Notified: Yes Date Notified: 09/04/23 Time Notified: 15:28 Method of Notification: Answering Service Reason For Visit: NSTEMI Diagnosis Discharge Diagnosis (1) Pleural effusion on right: Status: Acute Code(s): J90 - Pleural effusion, not elsewhere classified (2) Non-ST elevation [place] (NSTEMI): Status: Acute Code(s): I21.4 - Non-ST elevation (NSTEMI) myocardial infarction (3) History of mitral valve replacement with bioprosthetic valve: Status: Resolved Code(s): Z95.3 - Presence of xenogenic heart valve (4) CAD (coronary artery disease): Status: Acute Code(s): I25.10 - Atherosclerotic 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[place] coronary artery without angina pectoris (5) Chronic kidney disease, stage 3b: Status: Acute Code(s): N18.32 - Chronic kidney disease, stage 3b Plan #Non-STEMI type I w/ CAD s/p RADHA #HTN #status post mitral valve repair #new onset heart failure with reduced #Hypoxia 2/2 Recurrent large right pleural effusion #CKD stage IIIb #DM 2 Medications at Discharge Home Medications amlodipine 10 mg tablet 10 mg PO DAILY BLOOD PRESSURE #90 tabs 07/11/21 cyanocobalamin (vitamin B-12) 1,000 mcg/mL injection kit 1,000 mcg subcut QMONTH SUPPLEMENT 07/10/22 metoprolol tartrate 25 mg tablet 25 mg PO BID BLOOD PRESSURE #180 tabs 01/03/23 insulin aspart U-100 100 unit/mL (3 mL) subcutaneous pen 24 unit subcut TIDCM DIABETES 07/23/23 insulin glargine 100 unit/mL (3 mL) subcutaneous pen 40 unit subcut BID DIABETES 07/23/23 multivitamin 1 tab PO DAILY SUPPLEMENT 07/23/23 furosemide 40 mg tablet 40 mg PO BID FLUID 08/29/23 aspirin 81 mg tablet,delayed release 81 mg PO DAILY 30 days #30 tabs 09/07/23 atorvastatin 40 mg tablet 40 mg PO QHS 30 days #30 tabs 09/07/23 ticagrelor 90 mg tablet (Brilinta) 90 mg PO BID 30 days #60 tabs 09/07/23 Hospital Course Procedures Cardiac catheterization and Transthoracic echo Summary of Care Provided Minutes Spent on Discharge: 35 Hospital Course: 78-year-old male history of type 2 diabetes, coronary artery disease, CKD, right sided pleural effusion with drainage previously, mitral valve repair presented to [facility] 09/03/2023 with chest pressure and shortness of breath over the last several weeks. He had weight gain in addition to the chest pain and shortness of breath and in the ED patient had an elevated troponin and he was placed on a heparin drip and cardiology consulted. Patient also has newly reduced EF of 35% and in April it had been normal. He had heart catheterization with RADHA and tolerated this well. During his hospitalization he was seen in conjunction with nephrology given his CKD and need for heart cath, creatinine remained stable. He also had large right-sided pleural effusion and was requiring O2 and had a thoracentesis with 2 L of clear yellow fluid drained without infection or malignant cells found. He did report that he has had this effusion before this and required drainage with significant improvement of symptoms. Patient tolerated interventions well during hospitalization and was stable for discharge from medical and cardiology standpoint. Discussed discharge instructions with patient and with family and questions answered. Discharge instructions as follows: DISCHARGE INSTRUCTIONS PLEASE READ *Please take this with you to your next doctors appointment* -You will be discharged on aspirin, Brilinta, and an increased dose of your atorvastatin. You can take 2 of your atorvastatin's at bedtime until this prescription is finished and then you can start your 40 mg at bedtime prescription -Resume your Lasix tomorrow -You will need to follow-up with cardiology upon discharge, please call the office of Dr. Galvan upon discharge to schedule your hospital follow-up appointment (ph [phone]) -Please follow-up with nephrology upon discharge. Please call their office to schedule hospital follow-up appointment upon discharge. -Would recommend lab work (BMP) to check your kidney function and potassium in 2 to 3 days through your primary care physician's office. Please call their office upon discharge to obtain order for lab work. -Do only light and easy activities for 2 to 3 days after your stent placement, ask for help with chores and errands while you recover and have someone drive you to your appointments. -Unless your job involves lifting you may return to normal activities within 2 days -Please take your medications as prescribed, do not skip doses -Check your incisions every day for signs of infection which would include redness, swelling, leaking. It is normal to have a small bruise or bump where the catheter was placed but a bruise that is getting larger is not normal. Please tell your healthcare team about this. Please proceed to the emergency department if you have uncontrollable bleeding from the site. -It is important to eat a diet that is low in fat, salt, and cholesterol -You will be set up with cardiac rehab upon discharge, it is important that you follow-up -Okay to shower from the day after your heart catheterization but keep your incision site clean and dry. -Weigh yourself every day. A sudden weight gain can mean you are retaining fluid. Weigh yourself at the same time of day and in the same kind of clothes. Ideally, weigh yourself first thing in the morning after you empty your bladder, but before you eat breakfast. -Please call your physician if your weight goes up by more than 2 pounds in 1 day or 5 pounds in 1 week. This can be a sign that you are retaining more fluid than you should be. Clues to weight gain include checking your ankles for swelling, or noticing you are short of breath when you lie down -Please limit your sodium intake to less than 3 g/day. Here are tips: Limit canned, dried, packaged, and fast foods. Don't add salt to your food at the table. Season foods with herbs instead of salt when you cook. When you eat out, ask that [place] not add any salt to your dish. Don't eat fried or greasy foods. Be careful of bottled beverages. They can contain a lot of salt -Call 911 right away if you have: -Severe shortness of breath, such that you can't catch your breath even while resting -Severe chest pain that does not resolve with rest or nitroglycerin -[place], foamy mucus with cough and shortness of breath -An ongoing rapid or irregular heartbeat -Passing out or fainting -Stroke symptoms such as sudden numbness or weakness on one side of your face, arm, or leg or sudden confusion, trouble speaking or vision changes -Also recommend following with your primary provider regarding your recurrent pleural effusion. He may need repeat imaging or just to follow clinically upon discharge -You have only been receiving 20 units of long-acting insulin at morning and bedtime and 12 units with meals. Would recommend continuing this regimen and checking your glucose. You will likely need to go back up to home doses but you will need to be careful to avoid hypoglycemia -Please call your primary care provider's office upon discharge to schedule a hospital follow up within 1 week. -For any concerning signs or symptoms please call 911 or proceed to the nearest emergency department Physical Exam Narrative General: Alert, oriented, no apparent distress HEENT: Atraumatic, normocephalic Eyes: Anicteric, normal conjunctiva, extraocular movements grossly intact Neck: Supple Respiratory: Still somewhat dull bases, no increased work of breathing Cardiovascular: Regular rate and rhythm GI: Soft, nontender, nondistended Extremities: Lower extremity edema now trace Musculoskeletal: Moving all extremities Neuro: No overt focal neurological deficits Skin: No rashes appreciated Psych: Cooperative Weight / BMI Weight Weight: 93.9 kg Body Mass Index (BMI) 28.8 ABG / Lab / Microbiology Data 09/07/23 06:50 09/07/23 06:50 Laboratory: Laboratory Results - last 24 hr 09/06/23 11:46: POC Glucose 154 H 09/06/23 16:32: POC Glucose 151 H 09/06/23 22:15: POC Glucose 199 H 09/07/23 06:35: POC Glucose 144 H 09/07/23 06:50: WBC 4.8, RBC 3.30 L, Hgb 9.1 L, Hct 29.8 L, MCV 90.3, MCH 27.6, MCHC 30.5 L, RDW Std Deviation 52.6 H, RDW Coeff of Ng[place] 15.9 H, Plt Count 137 L, MPV 9.9, Immature Gran % (Auto) 0.600, Neut % (Auto) 81.3 H, Lymph % (Auto) 7.6 L, [place] % (Auto) 8.7, Eos % (Auto) 1.4, Baso % (Auto) 0.4, Absolute Neuts (auto) 3.9, Absolute Lymphs (auto) 0.37 L, Nucleated RBC % 0, Differential Comment , Sodium 138, Potassium 4.4, Chloride 108 H, Carbon Dioxide 24.0, Anion Gap 6, BUN 83 H, Creatinine 2.19 H, Estim Creat Clear Calc 30.56, Est GFR (MDRD) Af Amer 38 L, Est GFR (MDRD) Non-Af 31 L, BUN/Creatinine Ratio 37.9 H, Glucose 145 H, Calcium 8.6, Total Bilirubin 0.50, AST 20, ALT 22, Alkaline Phosphatase 105, Total Protein 7.2, Albumin 2.9 L, Globulin 4.3 H, Albumin/Globulin Ratio 0.7 L 09/07/23 11:46: POC Glucose 190 H Microbiology: Microbiology 09/05/23 12:58 Fluid - Thoracentesis Fluid Gram Stain - Final 09/05/23 12:58 Fluid - Thoracentesis Fluid Body Fluid Culture - Preliminary No growth-Final to follow 09/05/23 12:58 Fluid - Thoracentesis Fluid Anaerobic Culture - Preliminary No growth in 48 hours. D/C Instructions Discharge Diet: - (-DASH diet, 3000 mg sodium restriction, 2 L fluid restriction) Meaningful Use Info Meaningful Use Diagnoses (Choose all that apply): AMI AMI/Post PCI/Angioplasty Aspirin given w/in 24hrs of arrival?: Yes ASA at discharge?: Yes Antiplatelet Therapy at Discharge:: Yes Statins at discharge?: Yes Herb/ARB at discharge?: No Reason Herb/ARB not ordered:: Worsening renal disease [address] Rd at discharge?: Yes Done w/ Acute FL measure.: Yes Documented LVEF (%): 35 Discharge Plan Admission Admit Date/Time: 09/03/23 13:18 Primary Reason for Your Visit: Chest pressure and shortness of breath Attending Provider: Kassie Velasquez Primary Care Provider: Angie Cheng Consulting Providers: Yvette Galvan; Georges Herring; Perry Smyth Instructions Patient Instructions: Coronary Angiography, PCI Lifestyle Changes, PCI Exercising Safely After Additional Instructions / Restrictions: DISCHARGE INSTRUCTIONS PLEASE READ *Please take this with you to your next doctors appointment* -You will be discharged on aspirin, Brilinta, and an increased dose of your atorvastatin. You can take 2 of your atorvastatin's at bedtime until this prescription is finished and then you can start your 40 mg at bedtime prescription -Resume your Lasix tomorrow -You will need to follow-up with cardiology upon discharge, please call the office of Dr. Galvan upon discharge to schedule your hospital follow-up appointment ) -Please follow-up with nephrology upon discharge. Please call their office to schedule hospital follow-up appointment upon discharge. -Would recommend lab work ([facility]) to check your kidney function and potassium in 2 to 3 days through your primary care physician's office. Please call their office upon discharge to obtain order for lab work. -Do only light and easy activities for 2 to 3 days after your stent placement, ask for help with chores and errands while you recover and have someone drive you to your appointments. -Unless your job involves lifting you may return to normal activities within 2 days -Please take your medications as prescribed, do not skip doses -Check your incisions every day for signs of infection which would include redness, swelling, leaking. It is normal to have a small bruise or bump where the catheter was placed but a bruise that is getting larger is not normal. Please tell your healthcare team about this. Please proceed to the emergency department if you have uncontrollable bleeding from the site. -It is important to eat a diet that is low in fat, salt, and cholesterol -You will be set up with cardiac rehab upon discharge, it is important that you follow-up -Okay to shower from the day after your heart catheterization but keep your incision site clean and dry. -Weigh yourself every day. A sudden weight gain can mean you are retaining fluid. Weigh yourself at the same time of day and in the same kind of clothes. Ideally, weigh yourself first thing in the morning after you empty your bladder, but before you eat breakfast. -Please call your physician if your weight goes up by more than 2 pounds in 1 day or 5 pounds in 1 week. This can be a sign that you are retaining more fluid than you should be. Clues to weight gain include checking your ankles for swelling, or noticing you are short of breath when you lie down -Please limit your sodium intake to less than 3 g/day. Here are tips: Limit canned, dried, packaged, and fast foods. Don't add salt to your food at the table. Season foods with herbs instead of salt when you cook. When you eat out, ask that [place] not add any salt to your dish. Don't eat fried or greasy foods. Be careful of bottled beverages. They can contain a lot of salt -Call 911 right away if you have: -Severe shortness of breath, such that you can't catch your breath even while resting -Severe chest pain that does not resolve with rest or nitroglycerin -[place], foamy mucus with cough and shortness of breath -An ongoing rapid or irregular heartbeat -Passing out or fainting -Stroke symptoms such as sudden numbness or weakness on one side of your face, arm, or leg or sudden confusion, trouble speaking or vision changes -Also recommend following with your primary provider regarding your recurrent pleural effusion. He may need repeat imaging or just to follow clinically upon discharge -You have only been receiving 20 units of long-acting insulin at morning and bedtime and 12 units with meals. Would recommend continuing this regimen and checking your glucose. You will likely need to go back up to home doses but you will need to be careful to avoid hypoglycemia -Please call your primary care provider's office upon discharge to schedule a hospital follow up within 1 week. -For any concerning signs or symptoms please call 911 or proceed to the nearest emergency department Discharge Orders/Prescriptions Prescriptions: New atorvastatin 40 mg Tablet 40 mg PO QHS 30 Days Qty: 30 0RF aspirin 81 mg Tablet,Delayed Release (Dr/Ec) 81 mg PO DAILY 30 Days Qty: 30 0RF Brilinta 90 mg Tablet 90 mg PO BID 30 Days Qty: 60 0RF Continued amlodipine 10 mg tablet 10 mg PO DAILY Qty: 90 3RF cyanocobalamin (vitamin B-12) 1,000 mcg/mL kit 1,000 mcg subcut QMONTH Patient Comments: PATIENT INJECTS THIS ONCE A MONTH ON THE . metoprolol tartrate 25 mg tablet 25 mg PO BID Qty: 180 3RF multivitamin Tablet 1 tab PO DAILY insulin glargine 100 unit/mL (3 mL) insulin pen 40 unit subcut BID insulin aspart U-100 100 unit/mL (3 mL) insulin pen 24 unit subcut TIDCM Held furosemide 40 mg tablet 40 mg PO BID Hold Instructions: Resume on 09/08/23. Discontinued atorvastatin 20 mg tablet 20 mg PO QHS Qty: 30 1RF Referrals / Follow Up: Perry Smyth MD [Med Staff - Consulting] - Yvette Galvan MD [Med Staff - Active Staff] - Within 2 Weeks Angie Cheng NP-C [Primary Care Provider] - Within 1 Week Disposition Disposition (needs filled in before D/C Order can be placed): Home, Self Care Charges/Coding Visit Charges Inpatient E&M: 69314 Disch Hosp >30min
[2023-09-07 13:34] VITALS: O2SAT 95; O2SAT 97
[2023-09-07 13:44] VITALS: BP 152/73; PULSE 72; RESP 18; TEMP 36.8; O2SAT 96
[2023-09-10 09:42] LABS: Pathologist Comment/Body Fluid Reviewed
--- NOTE | 2023-09-25 13:59 | CL.I_ITS ---
Patient Name: LOVE PHELAN Study Date: 09/06/2023 Performing: Timmy Galvan MD Ht: 71 inches 180.34 cm : 1945 Wt: 206.4 lbs 93.5 kg Age: 78 Gender: male BSA: 2.14 PROCEDURE(S) PERFORMED DC02-(00422)LHC/COR IC12-(97637/C9600)RADHA W/WO PTCA, SINGLE CORONARY ARTERY CLINICAL PROFILE AND CO-MORBIDITIES Heart Failure: None CAD Presentations: Non-STEMI. Symptom onset Date/Time: Time Not Available CONCLUSIONS CAD as described. Successful RADHA to proximal LAD as described. RECOMMENDATIONS DESCRIPTION OF PROCEDURE The patient arrived to the procedure lab. The risks and benefits of the procedure as well as a full description of our services here and lack of surgical backup were fully explained to the patient and/or their significant other prior to the catheterization. The Timeout was completed, verifying the correct patient and procedure. The patient's procedural site was prepped and draped in the usual fashion. Local anesthetic was given subcutaneously to right radial region with Lidocaine 2%. Local anesthetic was given subcutaneously to right groin region with Lidocaine 2%. Using a modified Seldinger technique, . Left Coronary Artery selective angiography was performed in multiple views using a 5 Fr. JL4 catheter. Right Coronary Artery selective angiography was then performed in multiple views using a 5 Fr. JR 4 catheter. LV to AO pullback pressures were then recordedThe images were reviewed and options discussed. A decision was then made to proceed with an Intervention, IVUS or other adjunct procedure. EBU3.5 Guide catheter was inserted and engaged into the LCA. BMW Guide wire was advanced to the LAD. 2.5X12 EMERGE Balloon catheter was inserted. Balloon catheter was advanced across lesion in the LAD, proximal. PTCA balloon inflated at 12 atms for 10 secs. PTCA balloon inflated at 14 atms for 10 secs. Balloon catheter was repositioned to additional lesion in the LAD, ostial. PTCA balloon inflated at 14 atms for 20 secs. 3.5X26 KATE Drug Eluting stent was inserted. Drug Eluting stent was advanced across the lesion in the LAD, proximal. 3.5X12 EMERGE NC Balloon catheter was inserted post stent. Angiogram performed post stent deployment. The arterial sheath was pulled and a Starclose closure device was deployed for hemostasis CORONARY ANGIOGRAPHY DOMINANCE: Right Dominant LEFT MAIN: Mild luminal irregularities LEFT ANTERIOR DESCENDING ARTERY: PROX LAD: 95 % Stenosis. Distal LAD has moderate to severe diffuse disease CIRCUMFLEX ARTERY: Mild luminal irregularities RAMUS: Small vessel with moderate diffuse disease RIGHT CORONARY ARTERY: PROX RCA: is occluded. Chronic total occlusion. Collateral filling noted to the distal RCA INTERVENTION INFORMATION LESION SITE: LAD (Proximal) Lesion Complexity: High/C, chronic total occlusion: No, lesion at bifurcation: No, thrombus present: No, lesion length: 16 mm, culprit lesion: No, Previously treated lesion: No Pre Stenosis: 95 % Pre intervention DONNA flow: 3 PROCEDURE: Drug Eluting Stent with pre and post dilatation Post Stenosis: 0 % Post intervention DONNA flow: 3 Lesion Devices: High .014 190cm BMW [place] Straight Medtronic 6 Fr EBU3.5 100cm Guide Catheter [place] [employer] EMERGE MR 2.50x12 BALLOON Medtronic 3.5 x 26 KATE FRONTIER RADHA [place] [employer] NC EMERGE MR 3.50x12 BALLOON LESION SITE: LAD (Ostial) Lesion Devices: High .014 190cm BMW [place] Straight Medtronic 6 Fr EBU3.5 100cm Guide Catheter [place] [employer] EMERGE MR 2.50x12 BALLOON Medtronic 3.5 x 26 KATE FRONTIER RADHA [employer] [employer] [place] EMERGE MR 3.50x12 BALLOON COMPLICATIONS No Complications PROCEDURE MEDICATIONS Fentanyl 50 mcg IV Versed 1 mg IV Oxygen: 2 L/min via nasal cannula Aspirin (325mg) 1 Tabs PO 09/06/2023 12:52:22 Brilinta 180 mg PO @ 09/06/2023 14:18:06 Heparin 5000 unit(s) IV 09/06/2023 13:48:04 IV Bolus: .9 NaCl 500 ml total 09/06/2023 14:17:50 SUMMARY OF HEMODYNAMIC DATA Time AIR REST ECG 12:56:39 AO 118/59 (83) SA 13:38:17 AO 68/33 (44) 13:40:05 LV 112/5, 18 13:46:43 LV 109/5, 19 13:46:50 LVp 111/14, 30 13:47:02 AOp 105/42 (65) 13:47:07 AO 121/48 (80) 13:50:18 Signed By Timmy Galvan MD On 09/25/2023 13:58:16 Timmy Galvan MD
== END 2023-09-07 14:22 | disposition home or self-care (01) | DRG 322 ==
LOC: ED 13:24 → PCU 13:28
PROVIDERS: Internal Medicine Nephrology; Admitting Provider Family Medicine; Emergency Provider Emergency Medicine; PCP Nurse Practitioner Family; Visit Provider Internal Medicine
DX: I21.4 Non-ST elevation (NSTEMI) myocardial infarction (principal); I13.0 Hypertensive heart and chronic kidney disease with heart failure and stage 1 through stage 4 chronic kidney disease, or unspecified chronic kidney disease; J90 Pleural effusion, not elsewhere classified; E11.22 Type 2 diabetes mellitus with diabetic chronic kidney disease; N18.32 Chronic kidney disease, stage 3b; Z79.4 Long term (current) use of insulin; E78.5 Hyperlipidemia, unspecified; I25.10 Atherosclerotic 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native coronary artery without angina pectoris; I25.2 Old myocardial infarction; Z95.3 Presence of xenogenic heart valve; R09.02 Hypoxemia; Z95.5 Presence of coronary angioplasty implant and graft; Z79.02 Long term (current) use of antithrombotics/antiplatelets; Z79.82 Long term (current) use of aspirin; Z79.899 Other long term (current) drug therapy; Z87.891 Personal history of nicotine dependence; Z82.49 Family history of ischemic heart disease and other diseases of the circulatory system
CPT/HCPCS: 32555; 36415; 71045; 71046; 80048; 80053; 81001; 82945; 82962; 83615; 83880; 84156; 84157; 84484; 85025; 85610; 85730; 87070; 87075; 87205; 88108; 88305; 88313; 89050; 92928; 93005; 93308; 93454; 97802; 99152; 99153; 99285; J7030; J7040; Q9967; A4216; C1725; C1760; C1769; C1874; C1887; C1894; C9600; J1327; J1940

== ENCOUNTER → 2023-09-11 | Outpatient (CLI) | payer MEDICARE, SELFPAY ==
[2023-09-11 12:54] LABS: Anion Gap 11 (5-15); BUN 83 mg/dL (7-18); BUN/Creat Ratio 32.2 RATIO (10-20); Calcium,Total 8.6 mg/dL (8.5-10.1); Chloride 105 mmol/L (98-107); Creatinine, Serum 2.58 mg/dL (0.70-1.30); EST Glomerular Filtration Rate 26 mL/min (>60); Est Glom Filt Rate - Afr Amer 31 mL/min (>60); Glucose 152 mg/dL (74-106); Potassium 4.5 mmol/L (3.5-5.1); Sodium Level 140 mmol/L (136-145); T4 Free Direct 1.27 ng/dL (0.76-1.46); Thyroid Stim Hormone (TSH) 2.28 uIU/mL (0.358-3.74)
== END | disposition home or self-care (01) ==
LOC: BFHLAB 10:39
PROVIDERS: PCP Nurse Practitioner Family; Referring Provider Nurse Practitioner Family; Visit Provider Nurse Practitioner Family
DX: E04.1 Nontoxic single thyroid nodule (principal); N18.9 Chronic kidney disease, unspecified
CPT/HCPCS: 36415; 80048; 84439; 84443

== ENCOUNTER → 2023-10-02 | Outpatient (CLI) | payer MEDICARE, SELFPAY ==
[2023-10-02 15:09] LABS: Absolute Lymphocyte Count 0.31 X10^3/uL (0.83-4.51); Absolute Neutrophil Count 3.3 X10^3/uL (2.0-7.7); Basophil# 0.05 X10^3/uL; Basophil% 1.2 % (0-1); Eosinophil# 0.13 X10^3/uL; Eosinophils% 3.1 % (0-5); Hematocrit 33.6 % (40-54); Hemoglobin 10.4 g/dL (13.0-16.5); Lymphocyte # 0.31 X10^3/ul (0.83-4.51); Lymphocyte % 7.3 % (19-41); Mean Corpuscular Hgb 27.5 pg (27.0-32.0); Mean Corpuscular Volume 88.9 fL (80-94); Mean Platelet Vol. 9.7 fl (6.2-12.0); Monocyte# 0.42 X10^3/uL; Monocyte% 9.9 % (0-10); NRBC Flagged by Analyzer 0 % (0-5); Neutrophil # 3.29 X10^3/uL (2.7-7.7); Neutrophil % 77.6 % (47-70); POSITIVE DIFFERENTIAL YES; Platelet Count 135 K/mm3 (150-450); RBC Distribution Width CV 14.2 % (11.6-14.6); RBC Distribution Width SD 45.8 fl (35.1-43.9); Red Blood Count 3.78 M/mm3 (4.6-6.2); White Blood Count 4.2 K/mm3 (4.4-11.0)
[2023-10-02 15:10] LABS: Differential Indicated SCAN CRITERIA MET
[2023-10-02 15:29] LABS: Differential Comment SCANNED
[2023-10-02 15:33] LABS: Anion Gap 5 (5-15); BUN 63 mg/dL (7-18); BUN/Creat Ratio 31.8 RATIO (10-20); Calcium,Total 8.8 mg/dL (8.5-10.1); Chloride 105 mmol/L (98-107); Creatinine, Serum 1.98 mg/dL (0.70-1.30); EST Glomerular Filtration Rate 35 mL/min (>60); Est Glom Filt Rate - Afr Amer 42 mL/min (>60); Glucose 146 mg/dL (74-106); Potassium 4.3 mmol/L (3.5-5.1); Sodium Level 136 mmol/L (136-145)
[2023-10-02 16:18] LABS: BNP,B-Type NATRIURETIC PEPTIDE 1428.8 pg/mL (0-100)
[2023-10-04 09:17] LABS: Pathologist Review Reviewed
== END | disposition home or self-care (01) ==
LOC: LAB 14:45
PROVIDERS: Nurse Practitioner Gerontology; PCP Nurse Practitioner Family; Referring Provider Internal Medicine Nephrology; Visit Provider Internal Medicine Nephrology
DX: N17.9 Acute kidney failure, unspecified (principal); I50.33 Acute on chronic diastolic (congestive) heart failure
CPT/HCPCS: 36415; 80048; 83880; 85025

== ENCOUNTER → 2023-10-08 | Outpatient (CLI) | payer MEDICARE, SELFPAY ==
[2023-10-08 12:46] LABS: Anion Gap 5 (5-15); BUN 55 mg/dL (7-18); BUN/Creat Ratio 24.2 RATIO (10-20); Calcium,Total 9.2 mg/dL (8.5-10.1); Chloride 103 mmol/L (98-107); Creatinine, Serum 2.27 mg/dL (0.70-1.30); EST Glomerular Filtration Rate 30 mL/min (>60); Est Glom Filt Rate - Afr Amer 36 mL/min (>60); Glucose 94 mg/dL (74-106); Potassium 3.9 mmol/L (3.5-5.1); Sodium Level 138 mmol/L (136-145)
[2023-10-08 12:47] LABS: BNP,B-Type NATRIURETIC PEPTIDE 975.9 pg/mL (0-100)
== END | disposition home or self-care (01) ==
PROVIDERS: PCP Nurse Practitioner Family; Referring Provider Nurse Practitioner Gerontology; Visit Provider Nurse Practitioner Gerontology
DX: R06.00 Dyspnea, unspecified (principal); I50.20 Unspecified systolic (congestive) heart failure
CPT/HCPCS: 36415; 80048; 83880

== ENCOUNTER → 2023-11-29 | Outpatient (CLI) | payer MEDICARE, SELFPAY ==
[2023-11-29 13:50] LABS: Anion Gap 3 (5-15); BUN 57 mg/dL (7-18); BUN/Creat Ratio 26.6 RATIO (10-20); Calcium,Total 9.1 mg/dL (8.5-10.1); Chloride 99 mmol/L (98-107); Creatinine, Serum 2.14 mg/dL (0.70-1.30); EST Glomerular Filtration Rate 32 mL/min (>60); Est Glom Filt Rate - Afr Amer 39 mL/min (>60); Glucose 93 mg/dL (74-106); Potassium 4.2 mmol/L (3.5-5.1); Sodium Level 132 mmol/L (136-145)
== END | disposition home or self-care (01) ==
LOC: LAB 13:10
PROVIDERS: PCP Nurse Practitioner Family; Referring Provider Internal Medicine Nephrology; Visit Provider Internal Medicine Nephrology
DX: N17.9 Acute kidney failure, unspecified (principal)
CPT/HCPCS: 36415; 80048

== ENCOUNTER → 2024-02-17 | Outpatient (CLI) | payer MEDICARE, SELFPAY ==
--- NOTE | 2024-02-17 09:58 | CDU_ITS ---
Reason For Study: carotid artery disease Rt. Velocities/BP Lt. Velocities/BP Prox CCA 57.0/8.8 cm/sec. Prox CCA 61.1/11.7 cm/sec. Mid CCA 67.4/10.7 cm/sec. Mid CCA 58.9/12.7 cm/sec. Dist CCA 79.6/12.6 cm/sec. Dist CCA 52.3/12.7 cm/sec. Prox ICA 366.0/91.4 cm/sec. Prox ICA 54.1/13.9 cm/sec. Mid ICA 287.6/40.0 cm/sec. Mid ICA 105.2/21.2 cm/sec. Dist ICA 158.7/24.8 cm/sec. Dist ICA 77.8/21.2 cm/sec. Rt. ICA/CCA = 5.4. Lt. ICA/CCA = 1.8. Prox ECA 326.8/12.9 cm/sec. Prox ECA 249.5/10.2 cm/sec. Rt. Vert. 30.7/5.4 cm/sec. Lt. Vert. 134.4/32.1 cm/sec. Right Extracranial There is homogeneous, smooth atherosclerotic plaque noted in the right common carotid artery. There is heterogeneous, irregular atherosclerotic plaque noted in the right internal carotid artery. There is heterogeneous, irregular atherosclerotic plaque noted in the right external carotid artery. Bidirectional flow is noted in the right vertebral artery. Left Extracranial There is heterogeneous, irregular atherosclerotic plaque noted in the left common carotid artery. There is heterogeneous, irregular atherosclerotic plaque noted in the left internal carotid artery. There is heterogeneous, irregular atherosclerotic plaque noted in the left external carotid artery. Antegrade flow is noted in the left vertebral artery. Procedure Carotid Duplex [id number]. This is a Carotid Duplex examination using B-mode, color flow and specral Doppler. The exam was diagnostic. Exam performed in department. Prelim called to Matthew QUEVEDO. VL/Carotid Duplex Ultrasound Interpretation Summary Severe (>70%) stenosis right extracranial internal carotid. Mild (<50%) stenosis left extracranial internal carotid. The Right vertebral flow is bidirectional. The Left vertebral is patent and antegrade. Ordering Physician: Matthew Redding Referring Physician: Ana Adam Performed By: Sukhdeep Camp RVT
--- NOTE | 2024-02-17 09:58 | ECHOL_ITS ---
Reason For Study: CMP Procedure This was a limited 2D transthoracic echocardiogram. Exam performed in department. Left Ventricle Normal LV size. Moderate concentric left ventricular hypertrophy. The left ventricular ejection fraction is 45 %. Mid-anteroseptal : Hypokinetic. Right Ventricle Normal size and thickness. Normal systolic function. Atria The left atrium is severely enlarged. Normal right atrium. Mitral Valve Stable appearing bioprosthetic mitral valve apparatus. Aortic Valve Trisinus/trileaflet aortic valve. Mild focal aortic valve thickening. Great Vessels Normal aortic root. Pericardium/Pleural No pericardial effusion. MMode/2D Measurements & Calculations LVIDd: 5.0 cm IVSd: 1.5 cm LAV(MOD-bp): 129.3 ml LVIDs: 3.9 cm LVPWd: 1.4 cm LAV(MOD-bp) Indexed: 60.1 ml/m2 FS: 22.1 % LAV(MOD-sp2): 100.8 ml LAV(MOD-sp4): 131.4 ml LVAd ap4: 44.7 cm2 SV(MOD-sp4): 97.8 ml SV(sp4-el): 96.6 ml LVLd ap4: 9.0 cm EDV(MOD-sp4): 189.0 ml EDV(sp4-el): 189.2 ml LVAs ap4: 28.5 cm2 LVLs ap4: 7.4 cm ESV(MOD-sp4): 91.2 ml ESV(sp4-el): 92.7 ml EF(MOD-sp4): 51.7 % EF(sp4-el): 51.0 % LA A4 area: 35.2 cm2 RA A4 area: 21.2 cm2 ECHO/Echo, Limited Study Interpretation Summary Normal LV size. Moderate concentric left ventricular hypertrophy. The left ventricular ejection fraction is 45 %. Mid-anteroseptal : Hypokinetic Stable appearing bioprosthetic mitral valve apparatus. The left atrium is severely enlarged. Compared to the previous the left ventricular function has improved. Ordering Physician: Ana Adam Referring Physician: Ana Adam Performed By: Alma Almaraz RCS
== END | disposition home or self-care (01) ==
LOC: CVS 09:58
PROVIDERS: PCP Nurse Practitioner Family; Referring Provider Nurse Practitioner Gerontology; Visit Provider Nurse Practitioner Gerontology
DX: I65.22 Occlusion and stenosis of left carotid artery (principal); I50.20 Unspecified systolic (congestive) heart failure; I25.10 Atherosclerotic 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native coronary artery without angina pectoris
CPT/HCPCS: 93308; 93880

== ENCOUNTER → 2024-03-12 | Outpatient (CLI) | payer MEDICARE, SELFPAY ==
[2024-03-12 11:12] LABS: Creatinine, Serum 2.13 mg/dL (0.70-1.30); EST Glomerular Filtration Rate 32 mL/min (>60); Est Glom Filt Rate - Afr Amer 39 mL/min (>60)
== END | disposition home or self-care (01) ==
LOC: LAB 09:24
PROVIDERS: PCP Nurse Practitioner Family; Referring Provider Physician Assistant; Visit Provider Physician Assistant
DX: N18.32 Chronic kidney disease, stage 3b (principal)
CPT/HCPCS: 36415; 82565

== ENCOUNTER 2024-04-15 15:18 | Emergency (ER) | payer MEDICARE, SELFPAY ==
[2024-04-15 15:20] VITALS: BP 163/51; PULSE 76; RESP 19; TEMP 36.2; O2SAT 95; BMI 29.9
--- NOTE | 2024-04-15 15:21 | EKG12_ITS ---
Test Reason : ALLERGIC REACTION Blood Pressure : / mmHG Vent. Rate : 076 BPM Atrial Rate : 076 BPM P-R Int : 132 ms QRS Dur : 122 ms QT Int : 446 ms P-R-T Axes : 040 022 089 degrees QTc Int : 501 ms Normal sinus rhythm Non-specific intra-ventricular conduction delay Nonspecific ST and T wave abnormality Abnormal ECG Confirmed by HARDEEP AMBRIZ, ELIZABETH ([id number]), medical transcription editor GENA PARSONS ([id number]) on 04/16/2024 10:33:39 AM Referred By: DARLYN/MAGGIE Confirmed By:ELIZABETH MEIER MD
[2024-04-15 15:40] VITALS: O2SAT 92
--- NOTE | 2024-04-15 16:05 | RAD_ITS ---
STUDY: X-RAY CHEST REASON FOR EXAM: Male, 79 years old. shortness of breath TECHNIQUE: Single view of the chest. COMPARISON: None. FINDINGS: Normal lung volumes. Opacification in the mid and lower right lung, consistent with atelectasis or infiltrate along with probable small to moderate pleural effusion Left lung is clear. There is moderate cardiac enlargement. Prosthetic cardiac valve. Normal mediastinum and mj. Normal visualized pulmonary arteries. Normal visualized aortic arch and descending thoracic aorta. Normal visualized thoracic spine. Normal visualized ribs, clavicles, and shoulders. There is no demonstrated abnormality of the visualized soft tissue structures of the upper abdomen. RAD/Chest 1 View (Portable) IMPRESSION: Atelectasis or infiltrate in the mid and lower right lung with probable pleural effusion and cardiomegaly. Electronically Signed: Donnie Franklin MD at 16:32 EDT ,
--- NOTE | 2024-04-15 16:05 | EX.ED.DYSGE1 ---
HPI History of Present Illness Chief Complaint: Syncope Narrative Narrative: 79-year-old male past medical history of coronary artery disease, chronic kidney disease presents from the CT scanner with near syncopal episode. He was in the CT scanner as an outpatient getting carotid studies. He had never received intravenous dye before. The wind turbine blade repair technician told him that he would start to feel warm. During the injection, he did state that he started to feel flushed and warm and had to cough, but tried to stifle it because he wanted to remain still while he was in the CT scanner so they could get good imaging. He told them that he could not breathe, and he felt like he was going to pass out. However, patient denies that he ever had a syncopal episode and states he remembers everything. He was sent here to the emergency department for possible allergic reaction, but states he feels fine now. He does relate history that he has a pleural effusion that sometimes reaccumulate's, but has not had that evaluated since his thoracentesis a few months ago. He states he had been short of breath but that had resolved. [facility] Medical History Wears glasses Wears partial dentures Gout Low iron Shortness of breath on exertion Former smoker History of edema History of echocardiogram Cardiology follow-up encounter History of heart attack Acute on chronic diastolic (congestive) heart failure Non-rheumatic mitral regurgitation Renal insufficiency Essential (primary) hypertension Diabetes mellitus type II, controlled Hyperlipidemia Old myocardial infarction Atherosclerotic 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[place] coronary artery without angina pectoris (09/06/23) Ischemic cardiomyopathy Occlusion and stenosis of right carotid artery Home Medications ?Medication ?Instructions ?Recorded ?Last Taken ?Type amlodipine 10 mg tablet 10 mg PO DAILY BLOOD PRESSURE #90 07/11/21 09/03/23 Rx tabs cyanocobalamin (vitamin B-12) 1,000 mcg subcut QMONTH SUPPLEMENT 07/10/22 09/11/22 History 1,000 mcg/mL injection kit metoprolol tartrate 25 mg tablet 25 mg PO BID BLOOD PRESSURE #180 01/03/23 09/03/23 Rx tabs multivitamin 1 tab PO DAILY SUPPLEMENT 07/23/23 09/02/23 History aspirin 81 mg tablet,delayed 81 mg PO DAILY 30 days #30 tabs 09/07/23 Unknown Rx release atorvastatin 40 mg tablet 40 mg PO QHS 30 days #30 tabs 09/07/23 Unknown Rx furosemide 40 mg tablet 40 mg PO DAILY FLUID 10/02/23 Unknown History empagliflozin 25 mg tablet 25 mg PO DAILY 01/20/24 Unknown History (Jardiance) ferrous sulfate 325 mg (65 mg 325 mg PO DAILY 03/12/24 Unknown History iron) tablet insulin aspart U-100 100 unit/mL 14 unit subcut TIDCM DIABETES 03/12/24 Unknown History (3 mL) subcutaneous pen insulin glargine 100 unit/mL (3 38 unit subcut DAILY DIABETES 03/12/24 Unknown History mL) subcutaneous pen clopidogrel 75 mg tablet (Plavix) 75 mg PO QDAY #90 tabs 04/06/24 Unknown Rx Allergy/AdvReac Type Severity Reaction Status Date / Time doxycycline Allergy hives Verified 03/12/24 08:39 Family History Father CAD (coronary artery disease) Hx CABG x4 vessels Myocardial infarction, Onset Age: 50 Mother Breast cancer Other Acute on chronic diastolic (congestive) heart failure Surgical History History of left heart catheterization (09/22/18) History of mitral valve replacement with bioprosthetic valve (09/26/18) History of coronary artery stent placement (09/06/23) Social History Smoking Status: Former smoker how long ago did patient quit smokin alcohol intake: current Alcohol type: beer substance use type: does not use caffeine: Yes Type: coffee what type of physical activity do you participate in: other details: occasional rowing machine, biking frequency: other details: occasional rowing machine, biking duration: other details: occasional rowing machine, biking seatbelt use: always do you feel safe at home: Yes ROS ROS ED ROS Narrative Constitutional: No fever, no chills. HEENT: No sore throat. No neck pain. No loss of vision. No rhinorrhea. Cardiovascular: No chest pain. No palpitations. No pedal edema. Respiratory: No cough, positive shortness of breath-resolved. Abdominal: No abdominal pain. No nausea. No vomiting. Genitourinary: No dysuria. No hematuria. Musculoskeletal: No myalgias. No arthralgias. Neurologic: No headaches. No dizziness. Positive lightheadedness and near syncope-resolved. No syncopal episode noted by patient. Skin: No rash. No change in color. Psychiatric: No depression. No anxiety. EXAM Physical Exam Narrative Exam Narrative: Afebrile. Vital signs noted. HEENT: Normocephalic. Atraumatic. PERRL, EOMI. Neck soft and supple. No point tenderness or step off. Cardiovascular: Regular rate and rhythm. No murmurs, rubs, or gallops appreciated. Respiratory: No tachypnea. Lungs clear to auscultation bilaterally. Gastrointestinal: Abdomen soft, nontender, with normoactive bowel sounds. No rebound or guarding. Neurological: Awake. Alert. Oriented. Nonfocal, nonlateralizing. Skin: No rash. Normal color. No pallor. Musculoskeletal: No pedal edema. Const Vital Signs: 04/15/24 15:20 04/15/24 15:24 04/15/24 15:40 Temperature 97.2 F L Temperature Source Temporal Pulse Rate 76 Respiratory Rate 19 H Respiratory Effort Normal Non-Labored Respiratory Pattern Normal Blood Pressure 163/51 H Blood Pressure Mean 88 Pulse Ox 95 92 Oxygen Delivery Method Nasal Cannula High Flow Oxygen Flow Rate (L/min) 5 10 04/15/24 16:20 04/15/24 16:49 Temperature Temperature Source Pulse Rate 63 Respiratory Rate 16 Respiratory Effort Respiratory Pattern Blood Pressure 138/51 H Blood Pressure Mean 80 Pulse Ox 96 99 Oxygen Delivery Method Room Air Oxygen Flow Rate (L/min) MDM MDM MDM Narrative Medical decision making narrative: In the differential diagnosis is allergic reaction versus near syncope versus vasovagal near syncope. I have low suspicion for dehydration, or allergic reaction based on the history and physical. I had a lengthy discussion with the patient and his . Although his was not present and he did not have a syncopal episode, we will obtain basic laboratory work to make sure he is not dehydrated. Additionally, chest x-ray in 1 view will be obtained to see if he has reaccumulated any fluid/pleural effusion is present. EKG was obtained and interpreted by myself independently as normal sinus rhythm at 76 bpm without ectopy or acute ST changes. No STEMI. QTc is elevated at 501. No acute changes from previous EKGs in 2022. I reviewed his laboratory work and he is neutropenic at 2.5, but chronically neutropenic, hemoglobin stable at 11.5, platelet count normal at 176. Electrolyte panel is remarkable for a BUN of 44 and a creatinine of 1.88, glucose normal at 102. Chest x-ray 1 view interpreted by myself independently does show right-sided pleural effusion with atelectasis. I do not feel this is an infiltrate that requires antibiotics. I reviewed the radiology report which confirms my independent interpretation. Repeat examination at approximately 1655 reveals him to be awake, alert, no acute distress, not short of breath. He feels well and would like to be discharged. He was told of the reaccumulation of fluid with his pleural effusion and he should be evaluated for possible outpatient thoracentesis. I do not feel he requires admission, and once again he feels well and would like to be discharged. Return instructions to the emergency department were reviewed. Disposition is discharged home in stable condition. History & Record Review Discussion w/independent historian: Patient and Family Lab Data Attestation: I reviewed the patient's lab results. Labs: Laboratory Results - last 24 hr 04/15/24 15:24 WBC 2.5 L RBC 4.44 L Hgb 11.5 L Hct 37.7 L MCV 84.9 MCH 25.9 L MCHC 30.5 L RDW Std Deviation 52.5 H RDW Coeff of [place] 16.9 H Plt Count 176 MPV 10.4 Immature Gran % (Auto) 0.800 Neut % (Auto) 63.1 Lymph % (Auto) 25.2 [place] % (Auto) 8.9 Eos % (Auto) 1.6 Baso % (Auto) 0.4 Absolute Neuts (auto) 1.6 L Absolute Lymphs (auto) 0.62 L Nucleated RBC % 0 Sodium 136 Potassium 3.9 Chloride 107 Carbon Dioxide 25.0 Anion Gap 4 L BUN 44 H Creatinine 1.88 H Estim Creat Clear Calc 39.16 Est GFR (MDRD) Af Amer 45 L Est GFR (MDRD) Non-Af 37 L BUN/Creatinine Ratio 23.4 H Glucose 102 Calcium 7.9 L Radiography Diagnostic Testing: Clinical Impression(s) from Imaging Studies Chest X-Ray 04/15/24 16:05 IMPRESSION: Atelectasis or infiltrate in the mid and lower right lung with probable pleural effusion and cardiomegaly. Electronically Signed: Donnie Franklin MD at 16:32 EDT , Discharge Plan Triage Chief Complaint: Syncope ED Provider: Price Gold Dx/Rx/DC Orders Clinical Impression: Near syncope, SOB (shortness of breath), Pleural effusion Instructions: ED Dyspnea, ED Pleural Effusion, ED Near-Fainting, Uncertain Cause, ED Near-Fainting- Vagal Reaction Prescriptions: No Action amlodipine 10 mg tablet 10 mg PO DAILY Qty: 90 3RF cyanocobalamin (vitamin B-12) 1,000 mcg/mL kit 1,000 mcg subcut QMONTH Patient Comments: PATIENT INJECTS THIS ONCE A MONTH ON THE . metoprolol tartrate 25 mg tablet 25 mg PO BID Qty: 180 3RF multivitamin Tablet 1 tab PO DAILY Jardiance 25 mg tablet 25 mg PO DAILY Rx Instructions: Will start when current supply of [place] is finished ferrous sulfate 325 mg (65 mg iron) tablet 325 mg PO DAILY insulin aspart U-100 100 unit/mL (3 mL) insulin pen 14 unit subcut TIDCM Rx Instructions: 14 TID before meals insulin glargine 100 unit/mL (3 mL) insulin pen 38 unit subcut DAILY atorvastatin 40 mg Tablet 40 mg PO QHS 30 Days Qty: 30 0RF aspirin 81 mg Tablet,Delayed Release (Dr/Ec) 81 mg PO DAILY 30 Days Qty: 30 0RF furosemide 40 mg tablet 40 mg PO DAILY clopidogrel [Plavix] 75 mg tablet 75 mg PO QDAY Qty: 90 3RF Primary Care Provider: Angie Cheng Referrals: Angie Cheng, [facility] [Primary Care Provider] - 1-2 Days if not improving Print Language: Italian Disposition Disposition: Home, Self Care
[2024-04-15 16:20] VITALS: BP 138/51; PULSE 63; RESP 16; O2SAT 96
[2024-04-15 16:41] LABS: Absolute Lymphocyte Count 0.62 X10^3/uL (0.83-4.51); Absolute Neutrophil Count 1.6 X10^3/uL (2.0-7.7); Basophil# 0.01 X10^3/uL; Basophil% 0.4 % (0-1); Eosinophil# 0.04 X10^3/uL; Eosinophils% 1.6 % (0-5); Hematocrit 37.7 % (40-54); Hemoglobin 11.5 g/dL (13.0-16.5); Lymphocyte # 0.62 X10^3/ul (0.83-4.51); Lymphocyte % 25.2 % (19-41); Mean Corp Hgb Conc 30.5 g/dL (32-36); Mean Corpuscular Hgb 25.9 pg (27.0-32.0); Mean Corpuscular Volume 84.9 fL (80-94); Mean Platelet Vol. 10.4 fl (6.2-12.0); Monocyte# 0.22 X10^3/uL; Monocyte% 8.9 % (0-10); NRBC Flagged by Analyzer 0 % (0-5); Neutrophil # 1.55 X10^3/uL (2.7-7.7); Neutrophil % 63.1 % (47-70); Platelet Count 176 K/mm3 (150-450); RBC Distribution Width CV 16.9 % (11.6-14.6); RBC Distribution Width SD 52.5 fl (35.1-43.9); Red Blood Count 4.44 M/mm3 (4.6-6.2); White Blood Count 2.5 K/mm3 (4.4-11.0)
[2024-04-15 16:48] LABS: Anion Gap 4 (5-15); BUN 44 mg/dL (7-18); BUN/Creat Ratio 23.4 RATIO (10-20); Calcium,Total 7.9 mg/dL (8.5-10.1); Chloride 107 mmol/L (98-107); Creatinine, Serum 1.88 mg/dL (0.70-1.30); EST Glomerular Filtration Rate 37 mL/min (>60); Est Glom Filt Rate - Afr Amer 45 mL/min (>60); Estimated Creatinine Clearance 39.16 ml/min; Glucose 102 mg/dL (74-106); Potassium 3.9 mmol/L (3.5-5.1); Sodium Level 136 mmol/L (136-145)
[2024-04-15 16:49] VITALS: O2SAT 99
[2024-04-15 17:00] VITALS: BP 140/52; PULSE 63; RESP 14; O2SAT 95
[2024-04-15 17:06] VITALS: BP 140/52; PULSE 63; RESP 14; TEMP 36.2; O2SAT 95
== END 2024-04-15 17:10 | disposition home or self-care (01) ==
PROVIDERS: Emergency Provider Emergency Medicine; PCP Nurse Practitioner Family; Visit Provider Emergency Medicine
DX: R55 Syncope and collapse (principal); E11.22 Type 2 diabetes mellitus with diabetic chronic kidney disease; Z79.4 Long term (current) use of insulin; N18.32 Chronic kidney disease, stage 3b; R06.02 Shortness of breath; J90 Pleural effusion, not elsewhere classified; I12.9 Hypertensive chronic kidney disease with stage 1 through stage 4 chronic kidney disease, or unspecified chronic kidney disease; I25.10 Atherosclerotic 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native coronary artery without angina pectoris; I65.21 Occlusion and stenosis of right carotid artery; I25.2 Old myocardial infarction; Z79.899 Other long term (current) drug therapy; Z79.82 Long term (current) use of aspirin; Z79.01 Long term (current) use of 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; Z87.891 Personal history of nicotine dependence; Z95.5 Presence of coronary angioplasty implant and graft
CPT/HCPCS: 70496; 70498; 71045; 80048; 85025; 93005; 99282; J7040; Q9967

== ENCOUNTER → 2024-04-15 | Outpatient (CLI) | payer MEDICARE, SELFPAY ==
[2024-04-15 13:55] VITALS: BP 146/56; PULSE 71; RESP 18; TEMP 36.4; O2SAT 96; BMI 29.2
[2024-04-15] MEDS: 0.9% Saline Lock 10 ML Syringe IV (14:00)
[2024-04-15] MEDS: 0.9% Normal Saline (500mL Bag) 500 ML IV (14:07)
--- NOTE | 2024-04-15 15:06 | CT_ITS ---
STUDY: CTA HEAD AND NECK WITH CONTRAST REASON FOR EXAM: Male, 79 years old. Carotid artery stenosis, surgical planning -- IV hydration orders have been faxed RADIATION DOSAGE (If Supplied By Facility): CTDIvol = ( 32.66 ) mGy, DLP = ( 1654.75 ) mGycm TECHNIQUE: CT angiography was performed with a multi-detector CT scanner. Data acquisition was obtained from the skull base through the vertex following intravenous administration of IV 100mL Isovue-370. MIP images were reconstructed from the axial data set. Post-processing of the angiographic images was performed, with multiplanar reformation and 3D reconstruction. Individualized dose optimization techniques were used for this CT. COMPARISON: No relevant priors. FINDINGS: Normal bilateral petrous carotid arteries. There is calcified plaque formation of the right cavernous carotid artery, with a mild stenosis (less than 50%). There is calcified plaque formation of the left cavernous carotid artery, with a mild stenosis (less than 50%). Normal right A1 segments of the anterior cerebral artery. Normal left A1 segments of the anterior cerebral artery. Normal intact anterior communicating artery (ACOM). Normal bilateral A2 segments of the anterior cerebral arteries. Normal right M1 and M2 segments of the middle cerebral arteries, with a normal M1 bifurcation. Normal left M1 and M2 segments of the middle cerebral arteries, with a normal M1 bifurcation. Normal right posterior communicating artery (PCOM). Normal left posterior communicating artery (PCOM). Normal bilateral vertebral arteries. Normal basilar artery with a normal basilar bifurcation. The visualized bilateral superior cerebellar (SCA) arteries are normal. Normal bilateral P1, P2 and visualized P3 segments of the posterior cerebral arteries. There is no demonstrated aneurysm of the [place]. Diffuse cerebral atrophy. Focal encephalomalacia in the left frontal lobe. Large right pleural effusion. Heterogeneous enlargement of the thyroid gland more prominent in the right lobe with substernal extension. Sonographic correlation recommended. AORTIC ARCH: There is atherosclerotic calcific plaque formation of the aortic arch and great vessels arising from the aortic arch, without a hemodynamically significant stenosis. There is a bovine origin of the great vessels with a common origin of the brachiocephalic and left common carotid artery. Normal origin of the left subclavian artery. RIGHT CAROTID ARTERIES: There is atherosclerotic plaque formation of the common carotid artery, but without a hemodynamically significant stenosis. Normal right common carotid bulb. There is severe atherosclerotic plaque formation of the origin of the right internal carotid artery with a near complete occlusion. Normal visualized cervical portion of the right internal carotid artery. Normal origin of the right external carotid artery (ECA). LEFT CAROTID ARTERIES: There is atherosclerotic plaque formation of the common carotid artery, but without a hemodynamically significant stenosis. Normal left common carotid bulb. There is extensive atherosclerotic plaque formation of the origin of the left internal carotid artery with an estimated stenosis of greater than 70%. Normal visualized cervical portion of the left internal carotid artery. Normal origin of the left external carotid artery (ECA). VERTEBRAL ARTERIES: Normal bilateral vertebral arteries. CT/CTA Head AND Neck W/ Contrast IMPRESSION: Greater than 90% stenosis at the origin of the right internal carotid artery and greater than 70% stenosis at the origin of the left internal carotid artery caused by calcified plaques. Electronically Signed: Amarjit Cruz MD at 15:42 EDT ,
== END | disposition home or self-care (01) ==
LOC: CT 13:50
PROVIDERS: PCP Nurse Practitioner Family; Referring Provider Physician Assistant; Visit Provider Physician Assistant
DX: I65.21 Occlusion and stenosis of right carotid artery (principal); N18.32 Chronic kidney disease, stage 3b
CPT/HCPCS: 70496; 70498; J7040; Q9967

== ENCOUNTER 2024-05-20 14:38 | Inpatient (IN) | payer MEDICARE, SELFPAY ==
[2024-05-20] VITALS (23 sets, daily range): BP systolic 100–152; BP diastolic 31–53; PULSE 52–74; RESP 15–18; TEMP 36–36.7; O2SAT 95–100; BMI 28.8; BMI 29.2
--- NOTE | 2024-05-20 09:15 | PRE.ANES_ITS ---
ASA Classification* ASA Classification ASA Classification: 4 Assessment & Plan Anesthesia* Anesthesia Assessment Anesthesia Assessment: Discussed sedation and/or anesthesia options, risks, benefits, and alternatives with patient/parents/legal guardian/POA. Questions invited. The patient/parents/legal guardian/POA seems to understand and agrees to proceed with anesthesia plan. Reviewed the physical assessment, medical history, allergy history and patient home medications list prior to surgery/procedure/anesthetic and documented any changes. Performed airway and anesthesia risk assessments. Anesthesia Type Anesthesia Type: General (CARMELINA for monitoring intra op, consented) Anesthesia Focused Assessment* Airway Assessment Mouth opens: >3 cm Mallampati Score: II Focused Labs Anesthesia Preop lab: CBC WBC 2.5 K/mm3 (4.4-11.0) L 04/15/24 15:24 RBC 4.44 M/mm3 (4.6-6.2) L 04/15/24 15:24 Hgb 11.5 g/dL (13.0-16.5) L 04/15/24 15:24 Hct 37.7 % (40-54) L 04/15/24 15:24 Plt Count 176 K/mm3 (150-450) 04/15/24 15:24 CHEMISTRY Potassium 3.9 mmol/L (3.5-5.1) 04/15/24 15:24 Sodium 136 mmol/L (136-145) 04/15/24 15:24 BUN 44 mg/dL (7-18) H 04/15/24 15:24 Creatinine 1.88 mg/dL (0.70-1.30) H 04/15/24 15:24 Glucose 102 mg/dL (74-106) 04/15/24 15:24 POC Glucose 190 mg/dL (74-106) H 09/07/23 11:46 TSH 2.28 uIU/mL (0.358-3.74) 09/11/23 10:40 COAG PT 17.1 SECONDS (11.7-14.9) H 09/05/23 04:40 Pre-Assessment Diagnosis/Proposed Procedure Planned Operative Procedure(s): RIGHT CAROTID ENDARTERECTOMY Anesthesia History Anesthesia History - court recording monitor: Anesthesia History - court recording monitor Hx Hospitalization Yes: ANGIOPLASTY AND CARDIAC 05/06/24 08:23 STENT 08/2023 Any Problems With Anesthesia No 05/06/24 08:23 Cholinesterase deficiency No 05/06/24 08:23 You/Your Family Experience No 05/06/24 08:23 fever (hyperthermia) with Relationship Recent Exposure to Contagious No 09/14/22 06:49 Disease Does patient have nerve No 05/06/24 08:23 stimulator Patient instructed to have device shut off --Does patient have Pacemaker or ICD? When Was Last Pacemaker Check QUESTION #4 FULL TEXT: You/Your Family Experience fever (hyperthermia) with Anesthesia Last Oral Intake Last Oral intake: Last Oral Intake NPO since Meds taken in AM with sips of water? Meds patient instructed to take am of surgery PONV PONV - court recording monitor: PONV - court recording monitor Female No 05/06/24 08:23 HX of Motion Sickness No 05/06/24 08:23 HX of N/V After Surgery No 05/06/24 08:23 Non-Smoker Yes 05/06/24 08:23 Duration of Surgery greater Yes 05/06/24 08:23 than 60 minutes Number of Risk Factors 2 05/06/24 08:23 PONV Score Moderate Risk 05/06/24 08:23 Height & Weight Height & Weight: Anesthesia: Height & Weight Height 5 ft 11 in 04/15/24 15:20 Respiratory Assessment Respiratory Assessment - court recording monitor: Respiratory Tract Infection Hx - court recording monitor Hx Respiratory Tract Infection No 05/06/24 08:23 STOP Sleep Apnea STOP Sleep Apnea - court recording monitor: STOP Sleep Apnea - court recording monitor Hx Hypertension Yes: CONTROLLED WITH MEDS 05/06/24 08:23 Hx Sleep Apnea No 05/06/24 08:23 CPAP BIPAP Do you snore loudly (louder No 05/06/24 08:23 than talking or can be heard Do you often feel tired/ No 05/06/24 08:23 fatigued/ sleepy during daytime? Has anyone observed you stop No 05/06/24 08:23 breathing during sleep? STOP Results Negative 05/06/24 08:23 QUESTION #5 FULL TEXT : Do you snore loudly (louder than talking or can be heard through closed doors)? Tobacco Use History Tobacco Use History - court recording monitor: Tobacco Use History - court recording monitor Tobacco Use Non-smoker 07/11/21 11:08 Smoking Status Former smoker 05/06/24 08:23 Hx Tobacco Use No 05/06/24 08:23 Years Smoking Packs Smoked per Day Smoking Cessation Date was No - quit smoking greater 05/06/24 08:23 within the last 15 years than 15 years ago Hx Smoking Cessation Date Hx Smoking Cessation No 05/06/24 08:23 Counseling Hematologic Medial History Hematologic Hx - court recording monitor: Hematologic Medical Hx - front counter clerk Hx of Blood Transfusion Yes 05/06/24 08:23 Hx of Transfusion in last 3 No 05/06/24 08:23 Months Date of Last Transfusion (if within last 3 months) Ever experience any problems No 05/06/24 08:23 with transfusion(s)? Specify any problems Hx of Preganancy in last 3 N/A 05/06/24 08:23 Months Nurse Filling Out Transfusion DSCHRIBER 05/06/24 08:23 & Questions: Date: 05/06/24 05/06/24 08:23 Time: 08:25 05/06/24 08:23 Patient unable to answer at this time (ie. confused, unrespo /Reproduction History /Reproductive History - court recording monitor: /Reproductive Hx- court recording monitor Hx Now No 05/06/24 08:23 Gestational Age (in weeks): EDC: Hx Hx Para Hx Section SAB No 05/06/24 08:23 Active Medications Active Medications: Current Medications Generic Name Dose Route Start Last Admin Trade Name Freq PRN Reason Stop Dose Admin Cefazolin Sodium 2 gm/ Sodium 110 mls @ 150 mls/hr 05/20/24 11:00 Chloride IV 05/20/24 11:43 PREOP ONE Sodium Chloride 1,000 mls @ 1 mls/hr 05/20/24 08:55 IV .Q48H PRN Saline Flush Lactated Ringer's 1,000 mls @ 15 mls/hr 05/20/24 09:00 IV .Q48H NIRAV PFSH Medical History Alcohol use Thyroid nodule Insulin dependent diabetes mellitus Diabetes History of renal disease Dietary restriction History of stress test Wears glasses Wears partial dentures Gout Low iron Shortness of breath on exertion Former smoker History of echocardiogram Cardiology follow-up encounter History of heart attack Acute on chronic diastolic (congestive) heart failure Non-rheumatic mitral regurgitation Essential (primary) hypertension Diabetes mellitus type II, controlled Hyperlipidemia Atherosclerotic 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[place] coronary artery without angina pectoris (09/06/23) Ischemic cardiomyopathy Occlusion and stenosis of right carotid artery Home Medications ?Medication ?Instructions ?Recorded ?Last Taken ?Type amlodipine 10 mg tablet 10 mg PO DAILY BLOOD PRESSURE #90 07/11/21 09/03/23 Rx tabs cyanocobalamin (vitamin B-12) 1,000 mcg subcut QMONTH SUPPLEMENT 07/10/22 09/11/22 History 1,000 mcg/mL injection kit metoprolol tartrate 25 mg tablet 25 mg PO BID BLOOD PRESSURE #180 01/03/23 09/03/23 Rx tabs multivitamin 1 tab PO DAILY SUPPLEMENT 07/23/23 09/02/23 History aspirin 81 mg tablet,delayed 81 mg PO DAILY HEART HEALTH 30 09/07/23 Unknown Rx release days #30 tabs atorvastatin 40 mg tablet 40 mg PO QHS CHOLESTEROL 30 days 09/07/23 Unknown Rx #30 tabs furosemide 40 mg tablet 40 mg PO DAILY FLUID 10/02/23 Unknown History empagliflozin 25 mg tablet 25 mg PO DAILY DIABETES 01/20/24 Unknown History (Jardiance) ferrous sulfate 325 mg (65 mg 325 mg PO DAILY IRON SUPPLEMENT 03/12/24 Unknown History iron) tablet insulin aspart U-100 100 unit/mL 16 unit subcut TIDCM DIABETES 03/12/24 Unknown History (3 mL) subcutaneous pen insulin glargine 100 unit/mL (3 40 unit subcut DAILY DIABETES 03/12/24 Unknown History mL) subcutaneous pen clopidogrel 75 mg tablet (Plavix) 75 mg PO QDAY BLOOD THINNER #90 04/06/24 Unknown Rx tabs Allergy/AdvReac Type Severity Reaction Status Date / Time doxycycline Allergy hives Verified 05/12/24 15:04 Iodinated Contrast Media AdvReac Severe unresponsiv Verified 05/12/24 15:04 (contrast dye - iodinated) e Family History Father CAD (coronary artery disease) Hx CABG x4 vessels Myocardial infarction, Onset Age: 50 Mother Breast cancer Other Acute on chronic diastolic (congestive) heart failure Surgical History History of thoracentesis History of coronary artery stent placement Hx of colonoscopy History of left heart catheterization (09/22/18) History of mitral valve replacement with bioprosthetic valve (09/26/18) History of coronary artery stent placement (09/06/23) Social History Smoking Status: Former smoker how long ago did patient quit smokin alcohol intake: current Alcohol type: beer substance use type: does not use caffeine: Yes Type: coffee what type of physical activity do you participate in: other details: occasional rowing machine, biking frequency: other details: occasional rowing machine, biking duration: other details: occasional rowing machine, biking seatbelt use: always do you feel safe at home: Yes Review of Systems (Anesthesia) ROS Narrative System reviewed and no additional complaints, except as documented.
[2024-05-20] MEDS: Lactated Ringers 1,000 ML 15 ML IV (09:25)
[2024-05-20 09:50] LABS: Bedside Glucose 156 mg/dL (74-106)
--- NOTE | 2024-05-20 11:00 | PLAQ_PTH ---
PATIENT: LOVE PHELAN LOC: ICU U#:[id number] AGE/SX: 79/M ROOM: [place] [address] RE05/20/[address]: Dr. Matthew Morillo MD : [id number] BED: 1 DIS: 05/22/2024 SPEC #: [id number] RECD: 05/20/24 16:18 STATUS: UMANG REMoi #: [id number] JOSÉ MIGUEL: 05/20/24 11:[address]: Matthew Morillo DEPT: SURGICAL PATHOLOGY RECD BY: Lidia Ramirez ENTERED: 05/21/24 08:03 SP TYPE: PLAQUE OTHR DR: MD Dr. Riamundo Gunn MD Rachel Edgar, LEADITE WORKER-C Tissues: PLAQUE Procedures: Decalcification bone/plaque Surgery Specimen Level III HEADER OPERATION: Right ccarotid endarterectomy PRE-OP DIAGNOSIS: Stenosis of right carotid artery without infarction TISSUE SUBMITTED: Plaque, right carotid MICROSCOPIC DIAGNOSIS Right carotid artery plaque, endarterectomy: Calcified atheromatous plaque consistent with severe stenosis. / 05/25/2024 GROSS DESCRIPTION Received in fixative is one container labeled with the patient's name and designated Plaque right carotid. The specimen consists of multiple pieces of soliz indurated tissue measuring in aggregate 5.0 x 1.0 x 0.5cm. This specimen focally cuts with gritty sensation. Supervisor Porcel[employer] Department sections are submitted in one cassette after decalcification. / 05/21/2024 TC:5 CPT:30088,75652
--- NOTE | 2024-05-20 11:12 | PCM.HP.BLA ---
History and Physical Allergies doxycycline Allergy (Verified 05/12/24 15:04) hivesIodinated Contrast Media (contrast dye - iodinated) Adverse Reaction (Severe, Verified 05/12/24 15:04) unresponsive Medications ?Medication ?Instructions ?Recorded ?Confirmed ?Type amlodipine 10 mg tablet 10 mg PO DAILY BLOOD PRESSURE #90 07/11/21 05/12/24 Rx tabs cyanocobalamin (vitamin B-12) 1,000 mcg subcut QMONTH SUPPLEMENT 07/10/22 05/12/24 History 1,000 mcg/mL injection kit metoprolol tartrate 25 mg tablet 25 mg PO BID BLOOD PRESSURE #180 01/03/23 05/12/24 Rx tabs multivitamin 1 tab PO DAILY SUPPLEMENT 07/23/23 05/12/24 History aspirin 81 mg tablet,delayed 81 mg PO DAILY HEART HEALTH 30 09/07/23 05/12/24 Rx release days #30 tabs atorvastatin 40 mg tablet 40 mg PO QHS CHOLESTEROL 30 days 09/07/23 05/12/24 Rx #30 tabs furosemide 40 mg tablet 40 mg PO DAILY FLUID 10/02/23 05/12/24 History empagliflozin 25 mg tablet 25 mg PO DAILY DIABETES 01/20/24 05/12/24 History (Jardiance) ferrous sulfate 325 mg (65 mg 325 mg PO DAILY IRON SUPPLEMENT 03/12/24 05/12/24 History iron) tablet insulin aspart U-100 100 unit/mL 16 unit subcut TIDCM DIABETES 03/12/24 05/12/24 History (3 mL) subcutaneous pen insulin glargine 100 unit/mL (3 40 unit subcut DAILY DIABETES 03/12/24 05/12/24 History mL) subcutaneous pen clopidogrel 75 mg tablet (Plavix) 75 mg PO QDAY BLOOD THINNER #90 04/06/24 05/12/24 Rx tabs Have you fallen in the past year?: No PFSH Medical History Alcohol use Thyroid nodule Insulin dependent diabetes mellitus Diabetes History of renal disease Dietary restriction History of stress test Wears glasses Wears partial dentures Gout Low iron Shortness of breath on exertion Former smoker History of echocardiogram Cardiology follow-up encounter History of heart attack Acute on chronic diastolic (congestive) heart failure Non-rheumatic mitral regurgitation Essential (primary) hypertension Diabetes mellitus type II, controlled Hyperlipidemia 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/23) Ischemic cardiomyopathy Occlusion and stenosis of right carotid artery Surgical History History of thoracentesis History of coronary artery stent placement Hx of colonoscopy History of left heart catheterization (09/22/18) History of mitral valve replacement with bioprosthetic valve (09/26/18) History of coronary artery stent placement (09/06/23) Family History Father CAD (coronary artery disease) Hx CABG x4 vessels Myocardial infarction, Onset Age: 50Mother Breast cancerOther Acute on chronic diastolic (congestive) heart failure Social History Smoking Status: Former smoker how long ago did patient quit smokin alcohol intake: current Alcohol type: beer substance use type: does not use caffeine: Yes Type: coffee what type of physical activity do you participate in: other details: occasional rowing machine, biking frequency: other details: occasional rowing machine, biking duration: other details: occasional rowing machine, biking seatbelt use: always do you feel safe at home: Yes HPI HPI HPI: LOVE PHELAN, is a 79 M who presents to the office today for follow up of severe right carotid stenosis, asymptomatic. He has had his CTA and is here to discuss surgical plans, tentatively scheduled for CEA. He denies numbness/weakness/vision loss/speech difficulty. ROS General General: No weight change, appetite, fatigue, colon cancer, breast cancer or weakness HEENT HEENT: Yes eye surgery; No difficulty swallowing, eye injury, swollen glands or hoarseness Endo Endocrine: Yes diabetes mellitus; No thyroid disease, thyroid cancer, Hair loss, heat intolerance or cold intolerance Skin Skin: No rash or changing moles Musc Musculoskeletal: No back problems, arthritis, rheumatoid arthritis, gout or joint pain Cardio Cardiovascular: Yes heart disease, high blood pressure, heart attack, heart stent and shortness of breat with exertion; No murmur, pacemaker, atrial fibrillation, palpitations or chest pain Psych Psychiatric: No depression, anxiety or hearing voices Resp Respiratory: Yes shortness of breath, No sleep apnea, No cough, No COPD, No asthma, No emphysema and No wheezing Gastro Gastrointestinal: No abdominal pain, No nausea or vomiting, No diarrhea, No constipation, No blood in stool, No acid reflux, No hemorrhoids, No ulcers, No gallbladder problem and No black,tarry stools John Hematologic: Yes blood thinners, No blood disorders, No bleeding, Yes anemia and No blood clots Neuro Neurologic: No system reviewed and no additional complaints, except as documented, No as per HPI, No abnormal gait, No abnormal hearing, No abnormal movements, No abnormal speech, No behavioral changes, No burning sensations, No confusion, No convulsions, No disequilibrium, Yes dizziness, No localized weakness, No frequent falls, No headache(s), No lack of coordination, No loss of vision, No memory loss, No numbness, No other visual disturbances, No radicular pain, No restless legs, No sensory deficit, No syncope, No tingling, No tremor(s), No weakness and No other Exam Const General: cooperative, healthy appearing, comfortable, no acute distress and well developed Nutritional Appearance: well nourished Orientation: alert, awake and oriented x3 HENMT Head: normocephalic and atraumatic Ears: hearing grossly normal bilaterally Nose: external nose normal Eyes General: appearance normal, both eyes and all related structures EOM: EOM intact bilaterally Neck Neck: normal visual inspection, full ROM, no lymphadenopathy and trachea midline Thyroid: thyroid normal Lymphatic: no lymphadenopathy noted Resp Effort & Inspection: normal respiratory effort, able to speak in complete sentences, symmetric chest movement, no audible wheezes, not labored, no stridor and no use of accessory muscles Cardio Rate: regular rate Rhythm: regular rhythm Skin General: no rashes or lesions noted and no erythema Wounds: no wounds Neuro Cranial Nerves: CN's II-XI intact bilaterally and EOM intact bilaterally Speech: speech normal Gait: normal gait Motor: strength 5/5 throughout Sensory Exam: no sensory deficits noted Psych Appearance: grossly normal and well kempt Mental Status: mental status grossly normal Mood: congruent mood Speech and Movement: speech and movement normal Thought Content: normal Judgment: judgment good Coding Level of Care Code Off vis,est,level 3 Diagnoses Stenosis of right carotid artery without infarction I65.21 Assessment and Plan Assessment and Plan (1) Stenosis of right carotid artery without infarction: -right CEA
[2024-05-20] MEDS: Cefazolin 2 GM in 0.9% Normal Saline (100mL Bag) 100 ML IV (12:00)
[2024-05-20] MEDS: Heparin Injection (Vial) 5,000 UNIT/ML VIAL 5000 UNIT (12:36)
--- NOTE | 2024-05-20 14:37 | PCM.OPRPT ---
Report of Operation Date of Procedure: 05/20/24 Pre-Operative Diagnosis: right carotid stenosis Post-Operative Diagnosis: same Surgery/Procedure Performed:: right carotid endarterectomy Surgeon: Matthew Morillo Type of Anesthesia: General Drains: 19 Fr HANS Estimated Blood Loss (mL): 25 Description of Procedure: HPI: Patient is a 79-year-old male with asymptomatic right internal carotid artery stenosis which is severe in nature and greater than 70%. He presents now for elective endarterectomy for stroke risk reduction. Description of procedure: Upon obtaining informed consent and verification correct patient procedure site patient was taken to the operating room was placed under general anesthesia. He was then positioned prepped and draped in usual sterile fashion and timeout was performed. Oblique incision made along the anterior belly of sternocleidomastoid hide was dissect down through subcutaneous tissue. Self-retaining retractor put in position with great vessels and divided exposing the sternocleidomastoid. This was freed along its anterior border and posterior lateral retraction exposing the jugular vein. The jugular vein was then dissected with sharp dissection of the facial vein ligated with silk ties and divided. Sharp dissection then used to dissect free the proximal common carotid artery with care taken to identify and protect the vagus nerve. A right angle was used to place a vessel working on. Dissection distally onto the internal carotid artery beyond the area of palpable and visible plaque. Sharp dissection used dissect free the distal internal carotid artery and a right angle used to place a vessel loop with care taken to identify and protect the hypoglossal nerve. Patient was then heparinized approximately 3 minutes during which time the external carotid artery was dissected free and a right angle used to place a vessel loop. Vessels were then clamped first the internal followed by the common the external. And longitudinal arteriotomy was created and extended Watson scissors onto the internal carotid artery beyond the area of plaque. A 10 [place] shunt was then placed first distally into the internal carotid artery allowed to backbleed before placing proximally into the common carotid artery. The shunt was interrogated Doppler found to be patent with low resistance signal. We then performed her endarterectomy with a freer elevator with satisfactory endpoint distally onto the internal carotid artery and of the version endarterectomy of the external carotid artery. The limb was then flushed with heparinized saline to clear with any debris in the distal endpoint tacked with 7-0 Prolene interrupted sutures. A bovine pericardial patch was then secured in position with 6-0 Prolene in running fashion. Prior to completing the suture line the shunt was withdrawn and the vessels backbled. After completing the suture line the internal carotid artery was allowed to backbleed into the bifurcation and then reoccluded at the origin. Clamps were then removed from the external and the common carotid artery 10 heartbeats of antegrade flow to flush into the external carotid artery before reestablishing antegrade flow into the internal carotid artery. Vessels were then interrogated with Doppler and found to be patent with low resistance signal in the internal carotid artery and patent normal signal in the external carotid artery. Heparin was then reversed with protamine and Floseal topical hemostatic applied. The incision was then inspected for hemostasis and a 19 [place]uvian channel HANS placed via separate stab incision. The incision was then closed with 2-0 Vicryl, 3-0 Vicryl, 4 Monocryl and Dermabond. The patient was then awakened from anesthesia moving all extremities to command and cranial nerves intact. He was taken the recovery room with anticipated admission to the intensive care unit for hemodynamic and neurologic monitoring.
[2024-05-20] MEDS: Bupivacaine Mpf 0.5% 30 ML VIAL (14:40)
--- NOTE | 2024-05-20 15:15 | PCM.POST.ANE ---
Anesthesia: Postop Eval I Current Vital Signs Temperature: 97 F Pulse Rate: 72 Blood Pressure: 118/47 (MAP of 68, a-line reading 130/42 MAP of 67) Respiratory Rate: 16 Pulse Ox: 100 Oxygen Delivery Method: Simple Mask Oxygen Flow Rate (L/min): 6 Assessment Airway patent: Yes Spontaneous unlabored respirations: Yes Mental status: Awake and Calm (denies any pain, SOB, or chest pain, moving all extremities) nausea: No Vomiting: No Anesthesia Complication: No Fluid Hydration Crystalloid volume administer (ml): 2,400 (900 mL infused in pre-op) Total IV fluid infused: 2,400 Progress Note Anesthesia document: Postop Eval 1 completed: Yes
--- NOTE | 2024-05-20 15:28 | EKG12_ITS ---
Test Reason : HB Blood Pressure : / mmHG Vent. Rate : 048 BPM Atrial Rate : 000 BPM P-R Int : 000 ms QRS Dur : 118 ms QT Int : 270 ms P-R-T Axes : 000 008 000 degrees QTc Int : 241 ms Critical Test Result: Arrhythmia POSSIBLE AFIB WITH SEVERE BRADYCARDIA Incomplete left bundle branch block Nonspecific ST and T wave abnormality Abnormal ECG When compared with ECG of 20-MAY-2024 15:28, Significant changes have occurred Confirmed by CHAPITO AMBRIZ, LI ([id number]), advertising editor GENA PARSONS ([id number]) on 05/29/2024 9:50:27 AM Referred By: Matthew Morillo Confirmed By:KENIA URIARTE MD
[2024-05-20 15:38] LABS: ACT Activated Clotting Time 293 sec (74-137)
[2024-05-20 15:38] LABS: ACT Activated Clotting Time 153 sec (74-137)
[2024-05-20 15:38] LABS: ACT Activated Clotting Time 244 sec (74-137)
--- NOTE | 2024-05-20 15:44 | SUR.PHASEI ---
ON PACU ARRIVAL, NOTED TO HAVE ST DEPRESSION, PATIENT DENIES ANY CHEST PAIN, SOB, NAUSEA, OTHER RADIATING C/O, EKG LEADS REPOSITIONED. NOTIFIED DR CULLEN, 12-LEAD EKG OBTAINED AND REVIEWED BY SAME. VSS. SINUS RASHID w/ MILD ST DEPRESSION CONTINUES ON MONITOR. OKAY TO TXR PER DR CULLEN.
[2024-05-20 16:47] LABS: Bedside Glucose 180 mg/dL (74-106)
[2024-05-20] MEDS: 0.45% Normal Saline 1,000 ML 75 ML IV (17:15)
[2024-05-20] MEDS: Insulin Lispro 100 UNIT/ML INSULN.PEN SC ×2 (17:15→20:35)
[2024-05-20] MEDS: Acetaminophen 500 MG Tablet 1000 MG PO (17:58)
[2024-05-20] MEDS: Atorvastatin Calcium 40 MG Tablet PO (20:35)
[2024-05-20] MEDS: Metoprolol Tartrate 25 MG Tablet PO (20:35)
[2024-05-20] MEDS: Cefazolin 1 GM/50 ML BAG IV (20:35)
[2024-05-20 21:01] LABS: Bedside Glucose 192 mg/dL (74-106)
--- NOTE | 2024-05-20 22:26 | POSTOPAN2_ITS ---
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.SKOBY Spontaneous unlabored Yes 05/20/24 15:17 CRANBERRY FARM SUPERVISOR.VANDANA respirations Mental status Awake,Calm - 05/20/24 15:17 CRANBERRY FARM SUPERVISOR.SKOBY denies any pain, SOB, or chest pain , moving all extremities nausea No 05/20/24 15:17 CRANBERRY FARM SUPERVISOR.SOHAILOBDiane Vomiting No 05/20/24 15:17 CRANBERRY FARM SUPERVISOR.SOHAILOBDiane Anesthesia Postop Eval I: Fluid Summary Crystalloid volume administer 2,400 - 900 mL 05/20/24 15:17 CRANBERRY FARM SUPERVISOR.SKOBY (ml) infused in pre-op Colloids volume administered ( ml) Blood Product volume administered (ml) Total IV fluid infused 2,400 05/20/24 15:17 CRANBERRY FARM SUPERVISOR.VANDANA Anesthesia Postop Eval I: Summary Notes Anesthesia Complication No 05/20/24 15:17 CRANBERRY FARM SUPERVISOR.VANDANA Anesthesia Complication Comment: Post-operative progress note Anesthesia: Postop Eval II Evaluation Mental status: Awake and Calm Pain Level: 1 nausea: No Vomiting: No Progress Note Post-operative progress note: There was a questionable EKG abnormality on the monitor. Twelve-lead EKG was performed and looked unchanged from preop. Complications Anesthesia Complication: No
--- NOTE | 2024-05-20 22:26 | PCM.POSTANE2 ---
Anesthesia Postop Eval I Sum Postop Eval Completion status Anesthesia document: Postop Eval 1 completed: Yes Anesthesia Postop Eval I Summary Anesthesia Postop Eval I Summary: Anesthesia Postop Eval I: Assessment Summary Airway patent Yes 05/20/24 15:17 ART GLASS DESIGNER.SKOBY Spontaneous unlabored Yes 05/20/24 15:17 ART GLASS DESIGNER.VANDANA respirations Mental status Awake,Calm - 05/20/24 15:17 ART GLASS DESIGNER.SKOBY denies any pain, SOB, or chest pain , moving all extremities nausea No 05/20/24 15:17 ART GLASS DESIGNER.SOHAILOBDiane Vomiting No 05/20/24 15:17 ART GLASS DESIGNER.SOHAILOBDiane Anesthesia Postop Eval I: Fluid Summary Crystalloid volume administer 2,400 - 900 mL 05/20/24 15:17 ART GLASS DESIGNER.SKOBY (ml) infused in pre-op Colloids volume administered ( ml) Blood Product volume administered (ml) Total IV fluid infused 2,400 05/20/24 15:17 ART GLASS DESIGNER.VANDANA Anesthesia Postop Eval I: Summary Notes Anesthesia Complication No 05/20/24 15:17 ART GLASS DESIGNER.VANDANA Anesthesia Complication Comment: Post-operative progress note Anesthesia: Postop Eval II Evaluation Mental status: Awake and Calm Pain Level: 1 nausea: No Vomiting: No Progress Note Post-operative progress note: There was a questionable EKG abnormality on the monitor. Twelve-lead EKG was performed and looked unchanged from preop. Complications Anesthesia Complication: No
[2024-05-21] VITALS (31 sets, daily range): BP systolic 122–157; BP diastolic 32–59; PULSE 34–99; RESP 13–24; TEMP 35.9–36.6; O2SAT 93–100; BMI 29.2; BMI 29.6
--- NOTE | 2024-05-21 00:55 | EKG12_ITS ---
Test Reason : POSTOP Blood Pressure : / mmHG Vent. Rate : 062 BPM Atrial Rate : 062 BPM P-R Int : 200 ms QRS Dur : 122 ms QT Int : 494 ms P-R-T Axes : 082 015 156 degrees QTc Int : 501 ms Normal sinus rhythm Left ventricular hypertrophy with QRS widening and repolarization abnormality ( [place] product ) Abnormal ECG When compared with ECG of 15-APR-2024 15:21, Nonspecific T wave abnormality now evident in Inferior leads Confirmed by HARDEEP AMBRIZ, ELIZABETH ([id number]), health editor SHERIN FOSTER ([id number]) on 05/21/2024 2:34:11 PM Referred By: Matthew Morillo Confirmed By:ELIZABETH MEIER MD
--- NOTE | 2024-05-21 00:55 | EKG12_ITS ---
Test Reason : HB Blood Pressure : / mmHG Vent. Rate : 106 BPM Atrial Rate : 106 BPM P-R Int : 168 ms QRS Dur : 144 ms QT Int : 412 ms P-R-T Axes : 049 130 094 degrees QTc Int : 547 ms Sinus tachycardia Right axis deviation Non-specific intra-ventricular conduction block Minimal voltage criteria for LVH, may be normal variant ( [place] product ) T wave abnormality, consider lateral ischemia Abnormal ECG When compared with ECG of 20-MAY-2024 15:28, Vent. rate has increased BY 44 BPM QRS duration has increased Nonspecific T wave abnormality no longer evident in Inferior leads Confirmed by CHAPITO AMBRIZ, LI ([id number]), visual effects editor GENA PARSONS ([id number]) on 05/29/2024 9:35:58 AM Referred By: Matthew Morillo Confirmed By:KENIA URIARTE MD
--- NOTE | 2024-05-21 01:08 | PCM.CONS.GEN ---
Assessment & Plan Assessment/Plan (1) Cardiac related syncope: (2) Hyperkalemia: (3) Stenosis of right carotid artery without infarction: (4) Chronic kidney disease, stage 3b: PLAN: Plan Patient is a 79-year-old male who presented to [facility] on 05/20/2024 for planned carotid endarterectomy procedure. Medicine consulted postoperatively for medical management. 1. Brief episode of asystole with pulselessness ? TYLER CHAVEZ called on late evening of 05/20 for episode of asystole with pulselessness. Received several seconds of chest compressions and dose of atropine with return of heart rhythm and pulse. Unclear etiology for episode but vasovagal syncope event seems most likely given recent right sided CEA procedure with postop hematoma as noted below. Hemodynamically stable post event and mentating appropriately. Will keep pads on the patient for now and have atropine at the bedside. 2. Right carotid artery stenosis s/p carotid endarterectomy complicated by postoperative hematoma ? Vascular surgery primary. S/p CEA procedure on 05/20, patient tolerated procedure well. 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 Further management per vascular surgery. 3. Hyperkalemia ? Potassium 5.8 on labs drawn shortly after CODE BLUE event. Suspect due to mild kidney injury with medications possibly contributing. Treated with insulin and dextrose. Repeat potassium pending. Monitor daily BMP. 4. Mild creatinine elevation in setting of CKD stage III ? Creatinine 2.50 postoperatively, baseline around 1.8-2.1. Suspect due to mild dehydration postoperatively. Continue maintenance IV fluids for now, follow-up a.m. BMP and monitor urine output. 5. Mild acute blood loss anemia in setting of chronic anemia ? Hemoglobin 9.2 postoperatively. Most recent hemoglobin 11.5 on 04/15 but baseline hemoglobin appears to be around 10. Monitor daily CBC. 6. Thrombocytopenia ? Platelets 98 postoperatively. Has had multiple platelet values in the 120s to 130s in the past. Suspect mild decrease is secondary to acute concerns as noted above. Monitor daily CBC. 7. HFrEF not in acute exacerbation, history of CAD with stenting, history of mitral valve replacement, hypertension, hyperlipidemia ? Last echo on 02/17/2024 showed EF 45% with hypokinetic mid?anteroseptal LV wall and moderate concentric LV hypertrophy. This notably was improved from EF 35% in August 2023. Presented with acute heart failure symptoms at that time and found to have CAD on cath with stent placement x 1. Not in acute heart failure exacerbation at this time. Continue home amlodipine, Lopressor, aspirin, Plavix and atorvastatin. Will hold home Lasix and Jardiance for now, plan to restart on 05/22. 8. Type 2 diabetes mellitus with hyperglycemia ? Home regimen of insulin glargine 40 units daily and insulin aspart 18 units with meals. Blood glucose 212 postoperatively. Will treat with home glargine and sliding scale insulin with meals for now with serial Accu-Cheks, adjust as needed. DVT prophylaxis: SCDs CODE STATUS: Full code, verified Expected disposition: TBD Total clinical time spent by myself addressing the patient's medical issues, reviewing all the data, and collaborating with patient's care team: 50 minutes. HPI Consult Data Date of Consult: 05/21/24 HPI Narrative Reason for Consultation: Postop medical management HPI Narrative: LOVE PHELAN, is a 79 M who presented to [facility] on 05/20/2024 for planned carotid endarterectomy procedure with Dr. Morillo. Medicine consulted postoperatively for medical management after patient had brief episode of asystole with pulselessness for which a CODE BLUE was called. I saw the patient at bedside for the CODE BLUE this evening. Per Dr. Morillo's note and nursing staff, patient had a successful procedure and was doing well in the ICU postoperatively until the CODE BLUE event. Nursing noted that on the monitor patient suddenly developed severe bradycardia with a several second period of asystole. Patient was found to be unresponsive and pulseless, so CPR was initiated. Patient received CPR for several seconds and he was given a dose of atropine with recovery of heart rate and blood pressure. When I arrived to the patient's bedside a few minutes after CODE BLUE was called, patient was awake and alert and able to answer questions appropriately for me. He reported mild chest pain after CPR and feeling dehydrated but denied any other symptoms. Patient was sleeping when this episode happened. Patient does have a large right-sided neck dressing in place and states this is somewhat uncomfortable for him. Denies any worsening right-sided neck pain or discomfort however. I stayed the bedside for several minutes and patient's heart rate recovered into the 100s to 110s and blood pressure improved back to normal range and sustained there (has arterial line in place). Importantly, nursing staff notified Dr. Morillo of this event and he came in to see the patient about an hour later. He noted worsening fullness around the incision along with more firmness and tenderness in that area. Patient notably with no significant increase in pain and no difficulty breathing or swallowing. Because of this postop hematoma, Dr. Morillo took patient to the OR for surgical revision. [facility] Medical History Alcohol use Thyroid nodule Insulin dependent diabetes mellitus Diabetes History of renal disease Dietary restriction History of stress test Wears glasses Wears partial dentures Gout Low iron Shortness of breath on exertion Former smoker History of echocardiogram Cardiology follow-up encounter History of heart attack Acute on chronic diastolic (congestive) heart failure Non-rheumatic mitral regurgitation Essential (primary) hypertension Diabetes mellitus type II, controlled Hyperlipidemia Atherosclerotic 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[place] coronary artery without angina pectoris (09/06/23) Ischemic cardiomyopathy Occlusion and stenosis of right carotid artery Home Medications ?Medication ?Instructions ?Recorded ?Last Taken ?Type amlodipine 10 mg tablet 10 mg PO DAILY BLOOD PRESSURE #90 07/11/21 09/03/23 Rx tabs cyanocobalamin (vitamin B-12) 1,000 mcg subcut QMONTH SUPPLEMENT 07/10/22 09/11/22 History 1,000 mcg/mL injection kit metoprolol tartrate 25 mg tablet 25 mg PO BID BLOOD PRESSURE #180 01/03/23 05/19/24 21:00 Rx tabs multivitamin 1 tab PO DAILY SUPPLEMENT 07/23/23 09/02/23 History aspirin 81 mg tablet,delayed 81 mg PO DAILY HEART HEALTH 30 09/07/23 05/19/24 Rx release days #30 tabs atorvastatin 40 mg tablet 40 mg PO QHS CHOLESTEROL 30 days 09/07/23 Unknown Rx #30 tabs furosemide 40 mg tablet 40 mg PO DAILY FLUID 10/02/23 Unknown History empagliflozin 25 mg tablet 25 mg PO DAILY DIABETES 01/20/24 Unknown History (Jardiance) ferrous sulfate 325 mg (65 mg 325 mg PO DAILY IRON SUPPLEMENT 03/12/24 Unknown History iron) tablet insulin aspart U-100 100 unit/mL 18 unit subcut TIDCM DIABETES 03/12/24 Unknown History (3 mL) subcutaneous pen insulin glargine 100 unit/mL (3 40 unit subcut DAILY DIABETES 03/12/24 Unknown History mL) subcutaneous pen clopidogrel 75 mg tablet (Plavix) 75 mg PO QDAY BLOOD THINNER #90 04/06/24 05/19/24 Rx tabs Allergy/AdvReac Type Severity Reaction Status Date / Time doxycycline Allergy hives Verified 05/20/24 09:19 Iodinated Contrast Media AdvReac Severe unresponsiv Verified 05/20/24 09:19 (contrast dye - iodinated) e Family History Father CAD (coronary artery disease) Hx CABG x4 vessels Myocardial infarction, Onset Age: 50 Mother Breast cancer Other Acute on chronic diastolic (congestive) heart failure Surgical History History of thoracentesis History of coronary artery stent placement Hx of colonoscopy History of left heart catheterization (09/22/18) History of mitral valve replacement with bioprosthetic valve (09/26/18) History of coronary artery stent placement (09/06/23) Social History Smoking Status: Former smoker how long ago did patient quit smokin alcohol intake: current Alcohol type: beer substance use type: does not use caffeine: Yes Type: coffee what type of physical activity do you participate in: other details: occasional rowing machine, biking frequency: other details: occasional rowing machine, biking duration: other details: occasional rowing machine, biking seatbelt use: always do you feel safe at home: Yes ROS Constitutional Constitutional: Reports fatigue; Denies chills or fever(s) Eyes Eyes: Denies change in vision Cardiovascular Cardiovascular: Denies chest pain Respiratory/Chest Respiratory/Chest: Denies cough or shortness of breath at rest Gastrointestinal Gastrointestinal: Denies abdominal pain Neurologic Neurologic: Denies dizziness, focal weakness or headache(s) Physical Exam Const alert, oriented x3, no apparent distress and average body habitus Constitutional Narrative: Pleasant elderly male, overweight, fatigued appearing, otherwise laying comfortably in bed, conversing normally, in no acute distress. General Appearance: cooperative and comfortable HEENT normocephalic, head/scalp atraumatic, hearing grossly normal bilaterally and nasal mucous membranes and turbinates normal HEENT Narrative: Dry mucous membranes. Eyes PERRL, EOMs intact bilaterally and conjunctivae normal Neck Neck Narrative: Large right-sided neck bandage in place postoperatively with some serosanguineous drainage noted. Chest inspection of chest normal Resp normal respiratory effort, normal air movement, no use of accessory muscles and clear to auscultation bilaterally Cardio no murmurs and peripheral pulses 2+ throughout Cardio Narrative: Tachycardic, regular rhythm. GI normal to inspection, nondistended, normoactive bowel sounds, soft to palpation, non-tender and non-distended Back/Spine normal ROM Extremity normal to inspection, full ROM and no pedal edema Skin no rashes or lesions noted Neuro moves all extremities and no focal motor deficits Speech: speech normal Psych mental status grossly normal Lab / Micro Data 05/21/24 01:25 05/21/24 01:25 Labs: Laboratory Results - last 24 hr 05/20/24 09:18: POC Glucose 156 H 05/20/24 12:31: Activated Clotting Time 153 H 05/20/24 13:05: Activated Clotting Time 293 H 05/20/24 13:38: Activated Clotting Time 244 H 05/20/24 16:29: POC Glucose 180 H 05/20/24 20:33: POC Glucose 192 H Charges/Coding Visit Charges Inpatient E&M: 40903 Subs Hosp L3
--- NOTE | 2024-05-21 01:10 | NURSING ---
Around 0035, pt was noted to be having irregular PA intervals on the monitor, unclear of what heart block he was in. This RN and another RN went into room to obtain an EKG. Pt awoken and informed that we were going to get an EKG, he agreed and closed his eyes and went back to sleep. While obtaining EKG, pt became more bradycardic and appeared to be in a 2:1/3:1/4:1 2nd degree type II heart block, eventually going asystole. Pt's eyes rolled back in his head, art line waveform flattened, and pt was pulseless and apneic. Mago duggan called and CPR initiated by this RN. Within 10 seconds, pt's arms flailed back and he attempted to push this RN off his chest. CPR paused, pt bradycardic and then eventually had another very long pause/asystole. CPR restarted and pt once again tried to push this RN off chest within a few seconds. Pt now was bradycardic in the 20-40s, 1 mg atropine IV given. Within a few seconds, HR was up to the 120s and the art line was reading well with a BP of 170s/70s. Dr. Balderas at bedside, likely cause was a vasovagal episode. This RN called Dr. Morillo to update him on the recent events and he asked that the hospitalist be consulted. Orders placed for labs.
[2024-05-21 01:33] LABS: Absolute Lymphocyte Count 0.19 X10^3/uL (0.83-4.51); Absolute Neutrophil Count 4.7 X10^3/uL (2.0-7.7); Basophil# 0.01 X10^3/uL; Basophil% 0.2 % (0-1); Hematocrit 29.9 % (40-54); Hemoglobin 9.2 g/dL (13.0-16.5); Lymphocyte # 0.19 X10^3/ul (0.83-4.51); Lymphocyte % 3.7 % (19-41); Mean Corp Hgb Conc 30.8 g/dL (32-36); Mean Corpuscular Hgb 25.9 pg (27.0-32.0); Mean Corpuscular Volume 84.2 fL (80-94); Monocyte# 0.27 X10^3/uL; Monocyte% 5.2 % (0-10); NRBC Flagged by Analyzer 0 % (0-5); Neutrophil # 4.68 X10^3/uL (2.7-7.7); Neutrophil % 89.9 % (47-70); POSITIVE COUNT YES; POSITIVE DIFFERENTIAL YES; Platelet Count 98 K/mm3 (150-450); RBC Distribution Width CV 16.5 % (11.6-14.6); RBC Distribution Width SD 50.7 fl (35.1-43.9); Red Blood Count 3.55 M/mm3 (4.6-6.2); White Blood Count 5.2 K/mm3 (4.4-11.0)
[2024-05-21 01:36] LABS: Differential Indicated SCAN CRITERIA MET
--- NOTE | 2024-05-21 01:38 | NURSING ---
Called Shannan with an update.
[2024-05-21 01:44] LABS: International Normalized Ratio 1.4; Prothrombin Time (Protime)PT. 17.2 SECONDS (11.7-14.9)
[2024-05-21 01:53] LABS: ALB/GLOB Ratio 0.7 RATIO (0.9-2.4); AST(SGOT) 14 U/L (15-37); Alanine Aminotransfer ALT/SGPT 19 U/L (16-61); Albumin, Serum 2.8 g/dL (3.2-5.0); Alkaline Phosphatase 83 U/L (45-117); Anion Gap 9 (5-15); BUN 60 mg/dL (7-18); Chloride 107 mmol/L (98-107); EST Glomerular Filtration Rate 27 mL/min (>60); Est Glom Filt Rate - Afr Amer 32 mL/min (>60); Estimated Creatinine Clearance 29.11 ml/min; Glucose 212 mg/dL (74-106); Potassium 5.8 mmol/L (3.5-5.1); Protein, Total 6.8 g/dL (6.4-8.2); Sodium Level 137 mmol/L (136-145)
[2024-05-21 01:58] LABS: Magnesium 2.1 mg/dL (1.6-2.6); Phosphorus 4.6 mg/dL (2.5-4.9)
[2024-05-21] MEDS: Dextrose 10%-Water 250 ML 999 ML IV (02:08)
[2024-05-21 02:10] LABS: Platelet Estimate ADEQUATE (ADEQ)
[2024-05-21] MEDS: Insulin Lispro 10 UNIT in Syringe 0 ML 6 UNIT IV (02:13)
[2024-05-21] MEDS: 0.9% Saline Lock 10 ML Syringe IV ×2 (02:49→15:28)
[2024-05-21] MEDS: Cefazolin 1 GM/50 ML BAG IV (02:49)
[2024-05-21 03:11] LABS: Bedside Glucose 264 mg/dL (74-106)
--- NOTE | 2024-05-21 03:20 | PCM.PN.SRG ---
Subjective Subjective Eventful overnight. Brief bradycardia to asystole which resolved after brief chest compressions; unknown cause. Approximately 45 minutes later was noted to have abrupt increased fullness around incision, more firm, more tender. No significant increase in pain, no difficulty breathing/swallowing. Objective Data Objective Data A&O x 3, NAD RRR resp non labored right neck- soft hematoma; increase from 1800 hours Vital Signs: Vital Signs Temp Pulse Resp BP Pulse Ox O2 Del Method O2 Flow Rate 97.0 F L 81 17 129/42 H 97 Nasal Cannula 1 05/21/24 03:00 05/21/24 03:00 05/21/24 03:00 05/21/24 03:00 05/21/24 03:00 05/21/24 03:00 05/21/24 03:00 Oxygen Flow Rate (L/min) 1 Oxygen Delivery Method Nasal Cannula Weight: 211 lb 10.3 oz Body Mass Index (BMI) 29.6 Intake & Output: Intake and Output for Last 24 Hours 05/19/24 05/20/24 05/21/24 23:59 23:59 23:59 Intake Total 2703.25 / 3003.25 1097.5 / 1097.5 Output Total 960 / 960 Balance 1743.25 / 2043.25 1097.5 / 1097.5 Lab / Micro Data 05/21/24 01:25 05/21/24 01:25 Labs: Laboratory Results - last 24 hr 05/20/24 09:18: POC Glucose 156 H 05/20/24 12:31: Activated Clotting Time 153 H 05/20/24 13:05: Activated Clotting Time 293 H 05/20/24 13:38: Activated Clotting Time 244 H 05/20/24 16:29: POC Glucose 180 H 05/20/24 20:33: POC Glucose 192 H 05/21/24 01:25: WBC 5.2, RBC 3.55 L, Hgb 9.2 L, Hct 29.9 L, MCV 84.2, MCH 25.9 L, MCHC 30.8 L, RDW Std Deviation 50.7 H, RDW Coeff of Ngoc 16.5 H, Plt Count 98 L, MPV 10.0, Immature Gran % (Auto) 1.000 H, Neut % (Auto) 89.9 H, Lymph % (Auto) 3.7 L, [place] % (Auto) 5.2, Eos % (Auto) 0.0, Baso % (Auto) 0.2, Absolute Neuts (auto) 4.7, Absolute Lymphs (auto) 0.19 L, Nucleated RBC % 0, Platelet Estimate ADEQUATE, PT 17.2 H, INR 1.4, Sodium 137, Potassium 5.8 H, Chloride 107, Carbon Dioxide 21.0, Anion Gap 9, BUN 60 H, Creatinine 2.50 H, Estim Creat Clear Calc 29.11, Est GFR (MDRD) Af Amer 32 L, Est GFR (MDRD) Non-Af 27 L, BUN/Creatinine Ratio 24.0 H, Glucose 212 H, Calcium 8.0 L, Phosphorus 4.6, Magnesium 2.1, Total Bilirubin 0.40, AST 14 L, ALT 19, Alkaline Phosphatase 83, Total Protein 6.8, Albumin 2.8 L, Globulin 4.0, Albumin/Globulin Ratio 0.7 L 05/21/24 02:48: POC Glucose 264 H Assessment & Plan Assessment/Plan (1) Stenosis of right carotid artery without infarction: PLAN: -post op hematoma; to OR -unclear etiology of preceding cardiac rhythm disturbance; potassium elevated on post event labs, treated with glucose/insulin
--- NOTE | 2024-05-21 03:29 | NURSING ---
Patient transported down to OR. Report given to ISRA Villeda.
[2024-05-21] MEDS: 0.45% Normal Saline 1,000 ML 150 ML IV (04:50)
--- NOTE | 2024-05-21 04:59 | OP.PCM_ITS ---
Report of Operation Date of Procedure: 05/21/24 Pre-Operative Diagnosis: right neck post-operative hematoma Post-Operative Diagnosis: same Surgery/Procedure Performed:: exploration right neck, evacuation hematoma Surgeon: Matthew Morillo Type of Anesthesia: General Drains: 19 Fr HANS Estimated Blood Loss (mL): 1 Description of Procedure: HPI: Patient is a 79-year-old male who had undergone right carotid endarterectomy on 05/20 who developed worsening right neck pain and localized fullness. He also suffered what was suspected to be due to a vagal response with bradycardia and brief asystole requiring chest compressions. After the cardiac episode his neck pain and fullness increased it was noticeably more protruded. He is taken now for exploration with expected hematoma. Description of procedure: Upon obtaining form consent and verification correct patient procedure site patient was taken to the operating room was placed under general anesthesia. He was then positioned prepped and draped in usual sterile fashion a timeout was performed. The previous incision was opened and the deep suture layers with Metzenbaum scissors. A moderate size hematoma was found deep to the sternocleidomastoid not clotted blood with the majority of the space occupied by thrombus. The thrombus was evacuated wound copiously irrigated with saline. On the medial asked of the surgical field adjacent to where the sternocleidomastoid had been secured was noted to be actively bleeding. This did not appear to be a vessel that had been clipped or tied at the initial operation and likely was hemostatic from Bovie dissection and later bled. This was then ligated with multiple clips with satisfactory stasis noted. The wound was then further copiously irrigated and agitated and any remaining thrombus extracted. There were no other focal points of bleeding and only minor ooze from some of the raw surfaces. Surgicel topical hemostatic was then placed at the distal aspect of the wound where there was some more focal noted oozing and then Vistaseal topical hemostatic was applied to the entirety of the raw surface of the surgical site. A new 19 [place] channel HANS was then placed via separate stab incision. The incision was then closed with 2-0 Vicryl, 3-0 Vicryl, 4 Monocryl and Dermabond for the skin. The patient was then awake from anesthesia moving all extremities and cranial nerves to command. He was taken to the intensive care unit for hemodynamic and neurologic monitoring.
--- NOTE | 2024-05-21 05:53 | PCM.POST.ANE ---
Anesthesia: Postop Eval I Current Vital Signs Temperature: 97 F Pulse Rate: 71 Blood Pressure: 143/41 Respiratory Rate: 18 Pulse Ox: 94 Oxygen Delivery Method: Nasal Cannula (1 liter) Assessment Airway patent: Yes Spontaneous unlabored respirations: Yes Mental status: Awake and Calm nausea: No Vomiting: No Anesthesia Complication: No Fluid Hydration Crystalloid volume administer (ml): 700 Total IV fluid infused: 700 Progress Note Anesthesia document: Postop Eval 1 completed: Yes
--- NOTE | 2024-05-21 06:00 | NURSING ---
Per surgery RN, pressure should be held for 15 more minutes after arrival to ICU. Pressure held from 0545 to 0600 by this RN. Site soft, moderate amount of bruising. Dressing clean/dry/intact.
--- NOTE | 2024-05-21 06:00 | NURSING ---
Per surgery RN, pressure should be held on right side of neck for roughly 15 minutes after arrival. Pressure held from 0545 to 0600. Site soft, moderate amount of bruising. Dressing clean/dry/intact.
[2024-05-21] MEDS: Acetaminophen 500 MG Tablet 1000 MG PO ×3 (06:41→20:42)
[2024-05-21 06:43] LABS: Anion Gap 7 (5-15); BUN 62 mg/dL (7-18); BUN/Creat Ratio 25.2 RATIO (10-20); Calcium,Total 7.9 mg/dL (8.5-10.1); Chloride 106 mmol/L (98-107); Creatinine, Serum 2.46 mg/dL (0.70-1.30); EST Glomerular Filtration Rate 27 mL/min (>60); Est Glom Filt Rate - Afr Amer 33 mL/min (>60); Estimated Creatinine Clearance 29.73 ml/min; Glucose 205 mg/dL (74-106); Potassium 5.4 mmol/L (3.5-5.1); Sodium Level 135 mmol/L (136-145)
[2024-05-21] MEDS: Insulin Lispro 100 UNIT/ML INSULN.PEN SC ×3 (08:01→20:42)
[2024-05-21] MEDS: Multivitamins,Therapeutic Tablet 1 TABLET PO (08:02)
[2024-05-21] MEDS: Ferrous Sulfate 325 MG Tablet PO (08:02)
--- NOTE | 2024-05-21 08:10 | ECHOD_ITS ---
Reason For Study: ARRYTHMIA Procedure This was a 2D Doppler, Color Flow transthoracic echocardiogram. Technically difficult study due to patient position. Patient scanned supine due to recent procedure. Definity deferred due to patient allergy. Exam performed portable in ICU/CCU. Left Ventricle Normal LV size. Mild concentric left ventricular hypertrophy. The left ventricular ejection fraction is 40 %. Stage 1 diastolic dysfunction. Mild to moderate segmental systolic dysfunction (see wall motion). Mid-anteroseptal : Hypokinetic. Septal Latty : Hypokinetic. Latty : Severely Hypokinetic. Right Ventricle Normal RV size. Normal systolic function. Atria The left atrium is mildly enlarged. The right atrium is mildly enlarged. Mitral Valve Mean transmitral valve gradient 8.7 mmHg. Stable appearing bioprosthetic mitral valve apparatus. Tricuspid Valve Normal tricuspid valve. Aortic Valve Trisinus/trileaflet aortic valve. Moderate diffuse aortic valve thickening. Pulmonic Valve Normal pulmonic valve. Great Vessels Normal aortic root. The pulmonary artery is normal size. Inferior vena cava collapse with respiration. Pericardium/Pleural No pericardial effusion. MMode/2D Measurements & Calculations LVIDd: 5.7 cm IVSd: 1.3 cm Ao root diam: 3.1 cm LVIDs: 4.3 cm LVPWd: 1.3 cm RVDd: 3.5 cm FS: 25.1 % LAV(MOD-sp4): 69.6 ml LA A4 area: 23.8 cm2 LA dimension(2D): 4.8 cm TAPSE: 2.2 cm RA A4 area: 20.3 cm2 Time Measurements MV dec time: 0.27 sec Doppler Measurements & Calculations MV E max laurent: 159.9 cm/sec Lat Peak E' Laurent: 9.2 cm/sec Med Peak E' Laurent: 3.4 cm/sec MV A max laurent: 170.0 cm/sec E/E' lat: 17.5 E/E' med: 46.5 MV E/A: 0.94 MV V2 max: 190.7 cm/sec MV dec slope: 598.6 cm/sec2 Ao V2 max: 144.6 cm/sec MV max P.5 mmHg Ao max P.4 mmHg MV V2 mean: 142.7 cm/sec Ao V2 mean: 101.5 cm/sec MV mean P.7 mmHg Ao mean P.7 mmHg MV V2 VTI: 69.0 cm Ao V2 VTI: 29.4 cm AV (velocity ratio): 0.88 LV V1 max: 133.3 cm/sec PA V2 max: 93.4 cm/sec LV V1 max P.1 mmHg PA V2 mean: 65.9 cm/sec LV V1 mean P.8 mmHg LV V1 mean: 89.1 cm/sec LV V1 VTI: 25.8 cm ECHO/Echo Complete Interpretation Summary Normal LV size. Mild concentric left ventricular hypertrophy. The left ventricular ejection fraction is 40 %. Stage 1 diastolic dysfunction. Mild to moderate segmental systolic dysfunction (see wall motion). Stable appearing bioprosthetic mitral valve apparatus. Mean transmitral valve gradient 8.7 mmHg. Ordering Physician: Hemant Blanchard Referring Physician: Matthew Morillo Performed By: Alma Almaraz RCS
[2024-05-21 08:30] LABS: Bedside Glucose 187 mg/dL (74-106)
[2024-05-21] MEDS: Aspirin E.C. 81 MG Tablet PO (09:21)
[2024-05-21] MEDS: amLODIPine 10 MG Tablet PO (09:21)
[2024-05-21 09:24] LABS: Hemoglobin A1c 6.1 % (3.8-5.6)
--- NOTE | 2024-05-21 09:47 | PN.HOSP_ITS ---
Hospitalist Note Patient was seen and examined by night hospitalist about 1 a.m.. Patient had brief episode of asystole with pulselessness about 12:30 AM and received several seconds of CPR 1 dose of atropine and then return of ROSC. Prior to that, yesterday afternoon he had right carotid endarterectomy for artery stenosis and then after he developed hematoma. Right neck hematoma mild to be factor for asystole or loss of pulse though exact etiology unclear. Patient was taken to the OR early head start director today and had right neck with exploration and hematoma evacuation. Patient seen and examined in ICU . Blood pressure and heart rate in acceptable range. Patient denies significant pain over right neck and feels comfortable after the surgery. Monitor in the ICU. Vitals labs and medications reviewed. Discussed with the nursing staff
[2024-05-21] MEDS: Clopidogrel Bisulfate 75 MG Tablet PO (10:47)
--- NOTE | 2024-05-21 11:25 | CASEMGMT ---
ISRA CORBETT Assessment: Face to Face with pt for initial transition planning/care coordination assessment. ISRA CORBETT introduced self and role at [facility], pt voices understanding and consents to assessment. Pt is A&O x4 and answers all questions appropriately at this time. Pt sitting on eob with present in room. Pt getting ready to get back in bed. pt agreeable to assessment with present. Care providers, pharmacy, and demographics verified/updated. Admitting Dx:R carotid endarterectomy Strata: 2 PCP:Angie Cheng Specialists:jv Morillo; [facility]; [facility]; [facility] Preferred Pharmacy:[facility] Insurance:[email or web address] Prescription Benefit: yes LNOK:Madison Stone, dtr; Shannan Degroot, Living Arrangements: Pt lives with in a single story home with 3 steps to enter with a rail. Pt reports he is I in ADL/IADLs and denies concerns at home. Transportation: Pt doesn't drive, pt transports him to [facility]. DME:walking sticks, [employer] with sufficient supply of strips and lancets as well as sufficient supply of insulin and needles. HHC/SNF:Pt has had HHC in the past but was displeased. He denies SNF stays. Pt states no concerns with going home at time of dc. Pt states no further concerns/needs. Therapy has yet to eval pt. CM to follow. Advised pt to ask CM if any further question/concerns/needs arise, voices understanding. Pt Goal:Home Plan:Home pending course of hospitalization and therapy evals.
[2024-05-21] MEDS: Insulin Glargine-YFGN 100 UNIT/ML Pen 40 UNIT SC (12:04)
[2024-05-21 12:27] LABS: Bedside Glucose 181 mg/dL (74-106)
--- NOTE | 2024-05-21 14:35 | CON.PCM.CA_ITS ---
Assessment & Plan Assessment/Plan (1) Transient complete heart block: PLAN: Patient experienced transient complete heart block. The etiology is not entirely clear but could be multifactorial with vagal as well as electrolytes and beta-brisa. For now I will suggest that we observe. We may consider discharging with a 48-hour Holter monitor. Will hold beta-blockers for now (2) Carotid artery disease: QUALIFIERS: Carotid artery disease type: stenosis [facility] Qualified Code(s): I65.21 - Occlusion and stenosis of right carotid artery PLAN: Patient is status post carotid endarterectomy. The plan is to continue current therapy as per the vascular surgeon. (3) CAD (coronary artery disease): PLAN: Patient has known coronary disease recently stented left anterior descending artery and a totally occluded right coronary artery. No evidence of ischemia at this time we will continue to monitor. (4) History of mitral valve replacement with bioprosthetic valve: PLAN: Patient has a history of mitral valve replacement with a bioprosthetic valve which appears to be stable. The gradient across the mitral valve is mildly increased but will observe and repeat in 3 months. (5) Hyperlipidemia: QUALIFIERS: Hyperlipidemia type: unspecified Qualified Code(s): E 78.5 - Hyperlipidemia, unspecified PLAN: Patient has a history of hyperlipidemia and will continue with aggressive risk factor modification. (6) Essential (primary) hypertension: PLAN: His blood pressure appears to be under fair control at this time I will suggest that we hold off on the beta-brisa and continue the amlodipine and losartan for now. PLAN: Plan The above has been discussed with the vascular surgeon. HPI Consult Data Date of Consult: 05/21/24 HPI Narrative HPI Narrative: LOVE PHELAN, is a 79 M who presented to have a right carotid endarterectomy done. This was done successfully yesterday in the middle of the night while he was getting an EKG the patient was noted to become bradycardic and then asystolic for a few seconds underwent CPR for less than 10 seconds. Afterwards patient was noted to have developed a hematoma of the right carotid area and had to be taken back to the operating room. Patient has been fine since. This morning cardiology was called for further evaluation and management. He has a history of coronary artery disease with multivessel angioplasty in 2009. Heart catheterization at that time demonstrated a totally occluded RCA, circumflex with tubular 90% stenosis, LAD had discrete 85% stenosis followed by an 80% stenosis. He had angioplasty and stenting of these vessels. Medical therapy was recommended for the other vessels. In 2017, he underwent a cardiac catheterization which demonstrated a chronically occluded right coronary artery with left to right collaterals, patent obtuse marginal branch, circumflex artery and left anterior descending artery. He also had severe mitral regurgitation and he underwent mitral valve replacement with a 27 mm [employer] Weldon tissue valve. This was done via the right anterior minithoracotomy approach. He underwent chest CT scan in February 2023 that showed pleural effusion. He proceeded with thoracentesis on 03/12/2023 with removal of 1750 mL. He also has a history of hypertension and hyperlipidemia. Patient presented to the emergency room on 09/03/2023 with complaints of shortness of breath. Patient's EKG demonstrated sinus rhythm with a ventricular rate of 67 bpm with nonspecific T wave changes with flipped T waves anterior laterally. His troponin was also noted to be elevated at 6898 and BNP 848. He was admitted to the hospital for further evaluation. He underwent a cardiac catheterization which demonstrated 95% stenosis in proximal LAD, distal LAD has moderate to severe diffuse disease, his proximal RCA was occluded, chronic total occlusion, collateral filling noted to the distal RCA. He underwent a drug-eluting stent to his proximal LAD. His echocardiogram from 09/03/2023 demonstrated decreased ejection fraction of 35%. His EKG was reviewed. At this morning he is doing well denying any chest pain or shortness of breath or paroxysmal nocturnal dyspnea. [facility] Medical History Alcohol use Thyroid nodule Insulin dependent diabetes mellitus Diabetes History of renal disease Dietary restriction History of stress test Wears glasses Wears partial dentures Gout Low iron Shortness of breath on exertion Former smoker History of echocardiogram Cardiology follow-up encounter History of heart attack Acute on chronic diastolic (congestive) heart failure Non-rheumatic mitral regurgitation Essential (primary) hypertension Diabetes mellitus type II, controlled Hyperlipidemia Atherosclerotic 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[place] coronary artery without angina pectoris (09/06/23) Ischemic cardiomyopathy Occlusion and stenosis of right carotid artery Home Medications ?Medication ?Instructions ?Recorded ?Last Taken ?Type amlodipine 10 mg tablet 10 mg PO DAILY BLOOD PRESSURE #90 07/11/21 09/03/23 Rx tabs cyanocobalamin (vitamin B-12) 1,000 mcg subcut QMONTH SUPPLEMENT 07/10/22 09/11/22 History 1,000 mcg/mL injection kit metoprolol tartrate 25 mg tablet 25 mg PO BID BLOOD PRESSURE #180 01/03/23 05/19/24 21:00 Rx tabs multivitamin 1 tab PO DAILY SUPPLEMENT 07/23/23 09/02/23 History aspirin 81 mg tablet,delayed 81 mg PO DAILY HEART HEALTH 30 09/07/23 05/19/24 Rx release days #30 tabs atorvastatin 40 mg tablet 40 mg PO QHS CHOLESTEROL 30 days 09/07/23 Unknown Rx #30 tabs furosemide 40 mg tablet 40 mg PO DAILY FLUID 10/02/23 Unknown History empagliflozin 25 mg tablet 25 mg PO DAILY DIABETES 01/20/24 Unknown History (Jardiance) ferrous sulfate 325 mg (65 mg 325 mg PO DAILY IRON SUPPLEMENT 03/12/24 Unknown History iron) tablet insulin aspart U-100 100 unit/mL 18 unit subcut TIDCM DIABETES 03/12/24 Unknown History (3 mL) subcutaneous pen insulin glargine 100 unit/mL (3 40 unit subcut DAILY DIABETES 03/12/24 Unknown History mL) subcutaneous pen clopidogrel 75 mg tablet (Plavix) 75 mg PO QDAY BLOOD THINNER #90 04/06/24 05/19/24 Rx tabs Allergy/AdvReac Type Severity Reaction Status Date / Time doxycycline Allergy hives Verified 05/20/24 09:19 Iodinated Contrast Media AdvReac Severe unresponsiv Verified 05/20/24 09:19 (contrast dye - iodinated) e Family History Father CAD (coronary artery disease) Hx CABG x4 vessels Myocardial infarction, Onset Age: 50 Mother Breast cancer Other Acute on chronic diastolic (congestive) heart failure Surgical History History of thoracentesis History of coronary artery stent placement Hx of colonoscopy History of left heart catheterization (09/22/18) History of mitral valve replacement with bioprosthetic valve (09/26/18) History of coronary artery stent placement (09/06/23) Social History Smoking Status: Former smoker how long ago did patient quit smokin alcohol intake: current Alcohol type: beer substance use type: does not use caffeine: Yes Type: coffee what type of physical activity do you participate in: other details: occasional rowing machine, biking frequency: other details: occasional rowing machine, biking duration: other details: occasional rowing machine, biking seatbelt use: always do you feel safe at home: Yes Physical Exam Const alert, oriented x3 and no apparent distress General Appearance: cooperative HEENT hearing grossly normal bilaterally Head and Scalp: atraumatic Eyes EOMs intact bilaterally Neck Neck Narrative: Bandage over right neck General: normal visual inspection Chest inspection of chest normal and palpation of chest normal Resp normal respiratory effort Auscultation: clear to auscultation bilaterally Cardio regular rate, regular rhythm, S1 normal heart sound and S2 normal heart sound Jugular Venous Distention: JVD GI normal to inspection, nondistended, normoactive bowel sounds Extremity normal capillary refill and no pedal edema Peripheral Pulses: Yes pulses 2+ throughout and femoral pulses present Skin no rashes or lesions noted Neuro oriented x3 and CN's II-XII intact bilaterally Psych Appearance: grossly normal and appropriate Risk Stratification Risk Stratification Applicable: No Objective Data Vital Signs: Vital Signs Temp Pulse Resp BP Pulse Ox O2 Del Method O2 Flow Rate 97 F L 60 15 144/41 H 98 Nasal Cannula 1 05/21/24 13:00 05/21/24 14:00 05/21/24 14:00 05/21/24 14:00 05/21/24 14:00 05/21/24 14:00 05/21/24 14:00 Oxygen Flow Rate (L/min) 1 Oxygen Delivery Method Nasal Cannula Weight: 211 lb 10.3 oz Body Mass Index (BMI) 29.6 Intake & Output: Intake and Output for Last 24 Hours 05/19/24 05/20/24 05/21/24 23:59 23:59 23:59 Intake Total 2703.25 / 3003.25 1892.5 / 1892.5 Output Total 960 / 960 555 / 555 Balance 1743.25 / 2043.25 1337.5 / 1337.5 Lab / Micro Data 05/21/24 01:25 05/21/24 06:20 Labs: Laboratory Results - last 24 hr 05/20/24 12:31: Activated Clotting Time 153 H 05/20/24 13:05: Activated Clotting Time 293 H 05/20/24 13:38: Activated Clotting Time 244 H 05/20/24 16:29: POC Glucose 180 H 05/20/24 20:33: POC Glucose 192 H 05/21/24 01:25: WBC 5.2, RBC 3.55 L, Hgb 9.2 L, Hct 29.9 L, MCV 84.2, MCH 25.9 L , MCHC 30.8 L, RDW Std Deviation 50.7 H, RDW Coeff of Ngoc 16.5 H, Plt Count 98 L , MPV 10.0, Immature Gran % (Auto) 1.000 H, Neut % (Auto) 89.9 H, Lymph % (Auto) 3.7 L, [place] % (Auto) 5.2, Eos % (Auto) 0.0, Baso % (Auto) 0.2, Absolute Neuts (auto) 4.7, Absolute Lymphs (auto) 0.19 L, Nucleated RBC % 0, Platelet Estimate ADEQUATE, PT 17.2 H, INR 1.4, Sodium 137, Potassium 5.8 H, Chloride 107, Carbon Dioxide 21.0, Anion Gap 9, BUN 60 H, Creatinine 2.50 H, Estim Creat Clear Calc 29.11, Est GFR (MDRD) Af Amer 32 L, Est GFR (MDRD) Non-Af 27 L, BUN/Creatinine Ratio 24.0 H, Glucose 212 H, Hemoglobin A1c 6.1 H, Calcium 8.0 L, Phosphorus 4.6, Magnesium 2.1, Total Bilirubin 0.40, AST 14 L, ALT 19, Alkaline Phosphatase 83, Total Protein 6.8, Albumin 2.8 L, Globulin 4.0, Albumin/Globulin Ratio 0.7 L 05/21/24 02:48: POC Glucose 264 H 05/21/24 06:20: Sodium 135 L, Potassium 5.4 H, Chloride 106, Carbon Dioxide 22.0, Anion Gap 7, BUN 62 H, Creatinine 2.46 H, Estim Creat Clear Calc 29.73, E st GFR (MDRD) Af Amer 33 L, Est GFR (MDRD) Non-Af 27 L, BUN/Creatinine Ratio 25.2 H, Glucose 205 H, Calcium 7.9 L 05/21/24 07:58: POC Glucose 187 H 05/21/24 12:03: POC Glucose 181 H Cardiology Labs/Tests 05/21/24 01:25: WBC 5.2, RBC 3.55 L, Hgb 9.2 L, Hct 29.9 L, MCV 84.2, MCH 25.9 L , MCHC 30.8 L, Plt Count 98 L, MPV 10.0, Immature Gran % (Auto) 1.000 H, Neut % (Auto) 89.9 H, Lymph % (Auto) 3.7 L, [place] % (Auto) 5.2, Eos % (Auto) 0.0, Baso % (Auto) 0.2, Absolute Neuts (auto) 4.7, Nucleated RBC % 0, PT 17.2 H, INR 1.4, Sodium 137, Potassium 5.8 H, Chloride 107, Carbon Dioxide 21.0, Anion Gap 9, BUN 60 H, Creatinine 2.50 H, Est GFR (MDRD) Af Amer 32 L, Est GFR (MDRD) Non-Af 27 L , BUN/Creatinine Ratio 24.0 H, Glucose 212 H, Hemoglobin A1c 6.1 H, Calcium 8.0 L, Phosphorus 4.6, Magnesium 2.1, Total Bilirubin 0.40 05/21/24 06:20: Sodium 135 L, Potassium 5.4 H, Chloride 106, Carbon Dioxide 22.0, Anion Gap 7, BUN 62 H, Creatinine 2.46 H, Est GFR (MDRD) Af Amer 33 L, Est GFR (MDRD) Non-Af 27 L, BUN/Creatinine Ratio 25.2 H, Glucose 205 H, Calcium 7.9 L Rhythm: EKG: ECHO: Stress Test: Cardiac Cath: PCI: CT Surgery: Holter monitor: EPS: PPM: CXR: Chest CT Scan: Radiography Diagnostic Testing: Radiology Impression Echocardiogram 05/21/24 08:10 Interpretation Summary Normal LV size. Mild concentric left ventricular hypertrophy. The left ventricular ejection fraction is 40 %. Stage 1 diastolic dysfunction. Mild to moderate segmental systolic dysfunction (see wall motion). Stable appearing bioprosthetic mitral valve apparatus. Mean transmitral valve gradient 8.7 mmHg. Ordering Physician: Hemant Blanchard Referring Physician: Matthew Morillo Performed By: Alma Almaraz RCS
[2024-05-21] MEDS: Ondansetron 4 MG/2 ML Vial IV (15:28)
[2024-05-21 15:55] LABS: Bedside Glucose 154 mg/dL (74-106)
[2024-05-21] MEDS: Mag /Aluminum/Simeth WCH UDC 30 ML ORAL.SUSP PO (16:44)
--- NOTE | 2024-05-21 17:06 | PN.SURG_ITS ---
Subjective Subjective Patient was seen today resting comfortably in bed. He reports that he is having less pain in his neck today compared to yesterday. He did notice some neck discomfort starting prior the cardiac events yesterday evening and then the discomfort worsened later as the hematoma became apparent. He has not had any further episodes of bradycardia/asystole. He has been tolerating progressions in diet. He has been sitting up at the edge of the bed. Herbert catheter remains in place. Objective Data Objective Data Vital Signs: Vital Signs Temp Pulse Resp BP Pulse Ox O2 Del Method O2 Flow Rate 97.8 F 70 18 144/41 H 94 Room Air 1 05/21/24 16:00 05/21/24 17:00 05/21/24 17:00 05/21/24 17:00 05/21/24 17:00 05/21/24 17:00 05/21/24 16:00 Oxygen Flow Rate (L/min) 1 Oxygen Delivery Method Room Air Weight: 211 lb 10.3 oz Body Mass Index (BMI) 29.6 Intake & Output: Intake and Output for Last 24 Hours 05/19/24 05/20/24 05/21/24 23:59 23:59 23:59 Intake Total 2703.25 / 3003.25 2172.5 / 2172.5 Output Total 960 / 960 1035 / 1035 Balance 1743.25 / 2043.25 1137.5 / 1137.5 Lab / Micro Data 05/21/24 01:25 05/21/24 06:20 Labs: Laboratory Results - last 24 hr 05/20/24 20:33: POC Glucose 192 H 05/21/24 01:25: WBC 5.2, RBC 3.55 L, Hgb 9.2 L, Hct 29.9 L, MCV 84.2, MCH 25.9 L , MCHC 30.8 L, RDW Std Deviation 50.7 H, RDW Coeff of Ngoc 16.5 H, Plt Count 98 L , MPV 10.0, Immature Gran % (Auto) 1.000 H, Neut % (Auto) 89.9 H, Lymph % (Auto) 3.7 L, [place] % (Auto) 5.2, Eos % (Auto) 0.0, Baso % (Auto) 0.2, Absolute Neuts (auto) 4.7, Absolute Lymphs (auto) 0.19 L, Nucleated RBC % 0, Platelet Estimate ADEQUATE, PT 17.2 H, INR 1.4, Sodium 137, Potassium 5.8 H, Chloride 107, Carbon Dioxide 21.0, Anion Gap 9, BUN 60 H, Creatinine 2.50 H, Estim Creat Clear Calc 29.11, Est GFR (MDRD) Af Amer 32 L, Est GFR (MDRD) Non-Af 27 L, BUN/Creatinine Ratio 24.0 H, Glucose 212 H, Hemoglobin A1c 6.1 H, Calcium 8.0 L, Phosphorus 4.6, Magnesium 2.1, Total Bilirubin 0.40, AST 14 L, ALT 19, Alkaline Phosphatase 83, Total Protein 6.8, Albumin 2.8 L, Globulin 4.0, Albumin/Globulin Ratio 0.7 L 05/21/24 02:48: POC Glucose 264 H 05/21/24 06:20: Sodium 135 L, Potassium 5.4 H, Chloride 106, Carbon Dioxide 22.0, Anion Gap 7, BUN 62 H, Creatinine 2.46 H, Estim Creat Clear Calc 29.73, E st GFR (MDRD) Af Amer 33 L, Est GFR (MDRD) Non-Af 27 L, BUN/Creatinine Ratio 25.2 H, Glucose 205 H, Calcium 7.9 L 05/21/24 07:58: POC Glucose 187 H 05/21/24 12:03: POC Glucose 181 H 05/21/24 15:38: POC Glucose 154 H Radiography Diagnostic Testing: Radiology Impression Echocardiogram 05/21/24 08:10 Interpretation Summary Normal LV size. Mild concentric left ventricular hypertrophy. The left ventricular ejection fraction is 40 %. Stage 1 diastolic dysfunction. Mild to moderate segmental systolic dysfunction (see wall motion). Stable appearing bioprosthetic mitral valve apparatus. Mean transmitral valve gradient 8.7 mmHg. Ordering Physician: Hemant Blanchard Referring Physician: Matthew Morillo Performed By: Alma Almaraz RCS Physical Exam Const alert, oriented x3 and no apparent distress General Appearance: cooperative and comfortable HEENT normocephalic, head/scalp atraumatic, external ears normal and external nose normal Eyes EOMs intact bilaterally General Eye: normal appearance of both eyes Neck Neck Narrative: R neck incision site with postoperative dressing C/D/I. HANS drain with sanguineous output this morning progressing to serosanguineous this afternoon. There is expected significant ecchymosis around the incision site. The surgical site is soft to palpation. Resp normal respiratory effort, normal air movement, no retractions and no use of accessory muscles Effort and Inspection: able to speak in complete sentences Cardio Rate: regular rate Rhythm: regular rhythm Extremity normal to inspection and no clubbing, cyanosis or edema Skin no rashes or lesions noted Neuro oriented x3, CN's II-XII intact bilaterally, moves all extremities, no focal motor deficits and no sensory deficits noted Speech: speech normal Psych mental status grossly normal Appearance: grossly normal Attitude: calm and engaged Activity / Motor Behavior: appropriate eye contact Speech: normal speech Mood & Affect: euthymic mood Judgement: judgement good Assessment & Plan Assessment/Plan (1) Stenosis of right carotid artery without infarction: PLAN: He is POD#1 from R CEA and POD#0 from R neck hematoma evacuation. The surgical site remains soft to palpation today, no significant swelling. HANS drain output is slowing down and more serosanguineous this afternoon. Will plan to remove HANS drain tomorrow. Continue ASA/Plavix. Restart prophylactic lovenox tomorrow morning. He has not had any further episodes of heart block today. Etiology of the brief complete heart block remains unclear, possible secondary to developing hematoma. Cardiology held his beta brisa and is planning for heart monitor on discharge. He was also having difficulty urinating last night so Herbert catheter was placed. Will plan to remove and begin voiding trials tomorrow morning. Will initiate flomax.
[2024-05-21] MEDS: Tamsulosin HCl 0.4 MG Capsule PO (17:48)
[2024-05-21] MEDS: Atorvastatin Calcium 40 MG Tablet PO (20:42)
[2024-05-21 21:04] LABS: Bedside Glucose 251 mg/dL (74-106)
[2024-05-22] VITALS (17 sets, daily range): BP systolic 94–149; BP diastolic 45–81; PULSE 69–100; RESP 12–24; TEMP 35.9–37; O2SAT 91–99; BMI 29.5
[2024-05-22 03:23] LABS: Absolute Lymphocyte Count 0.36 X10^3/uL (0.83-4.51); Absolute Neutrophil Count 3.6 X10^3/uL (2.0-7.7); Basophil# 0.02 X10^3/uL; Basophil% 0.4 % (0-1); Eosinophil# 0.06 X10^3/uL; Eosinophils% 1.3 % (0-5); Hemoglobin 8.1 g/dL (13.0-16.5); Lymphocyte # 0.36 X10^3/ul (0.83-4.51); Lymphocyte % 8.1 % (19-41); Mean Corp Hgb Conc 31.2 g/dL (32-36); Mean Corpuscular Hgb 26.4 pg (27.0-32.0); Mean Corpuscular Volume 84.7 fL (80-94); Mean Platelet Vol. 10.3 fl (6.2-12.0); Monocyte# 0.44 X10^3/uL; Monocyte% 9.8 % (0-10); NRBC Flagged by Analyzer 0 % (0-5); Neutrophil # 3.57 X10^3/uL (2.7-7.7); POSITIVE COUNT YES; POSITIVE DIFFERENTIAL YES; Platelet Count 83 K/mm3 (150-450); RBC Distribution Width CV 16.5 % (11.6-14.6); RBC Distribution Width SD 50.3 fl (35.1-43.9); Red Blood Count 3.07 M/mm3 (4.6-6.2); White Blood Count 4.5 K/mm3 (4.4-11.0)
[2024-05-22 03:36] LABS: Anion Gap 6 (5-15); BUN 59 mg/dL (7-18); BUN/Creat Ratio 27.8 RATIO (10-20); Chloride 105 mmol/L (98-107); Creatinine, Serum 2.12 mg/dL (0.70-1.30); EST Glomerular Filtration Rate 32 mL/min (>60); Est Glom Filt Rate - Afr Amer 39 mL/min (>60); Glucose 177 mg/dL (74-106); Potassium 4.8 mmol/L (3.5-5.1); Sodium Level 135 mmol/L (136-145)
[2024-05-22] MEDS: Acetaminophen 500 MG Tablet 1000 MG PO ×2 (05:16→14:22)
[2024-05-22] MEDS: Clopidogrel Bisulfate 75 MG Tablet PO (08:20)
[2024-05-22] MEDS: Furosemide 40 MG Tablet PO (08:20)
[2024-05-22] MEDS: Ferrous Sulfate 325 MG Tablet PO (08:21)
[2024-05-22] MEDS: Aspirin E.C. 81 MG Tablet PO (08:21)
[2024-05-22] MEDS: amLODIPine 10 MG Tablet PO (08:21)
[2024-05-22] MEDS: Empagliflozin 25 MG Tablet PO (08:21)
[2024-05-22] MEDS: Multivitamins,Therapeutic Tablet 1 TABLET PO (08:21)
[2024-05-22] MEDS: Insulin Lispro 100 UNIT/ML INSULN.PEN SC ×2 (08:22→10:52)
--- NOTE | 2024-05-22 08:29 | PN.CARD_ITS ---
Subjective Subjective Patient seen and evaluated.No events or rhythm disturbances overnight. Objective Data Vital Signs: Vital Signs Temp Pulse Resp BP Pulse Ox O2 Del Method O2 Flow Rate 97.3 F L 69 12 146/46 H 97 Nasal Cannula 1 05/22/24 06:00 05/22/24 07:00 05/22/24 07:00 05/22/24 07:00 05/22/24 07:00 05/22/24 07:00 05/22/24 07:00 Oxygen Flow Rate (L/min) 1 Oxygen Delivery Method Nasal Cannula Weight: 210 lb 15.718 oz Body Mass Index (BMI) 29.5 Intake & Output: Intake and Output for Last 24 Hours 05/20/24 05/21/24 05/22/24 23:59 23:59 23:59 Intake Total 2703.25 / 3003.25 2572.5 / 2572.5 200 / 200 Output Total 960 / 960 1635 / 1635 450 / 450 Balance 1743.25 / 2043.25 937.5 / 937.5 -250 / -250 Lab / Micro Data 05/22/24 03:11 05/22/24 03:11 Labs: Laboratory Results - last 24 hr 05/21/24 01:25: Hemoglobin A1c 6.1 H 05/21/24 07:58: POC Glucose 187 H 05/21/24 12:03: POC Glucose 181 H 05/21/24 15:38: POC Glucose 154 H 05/21/24 20:41: POC Glucose 251 H 05/22/24 03:11: WBC 4.5, RBC 3.07 L, Hgb 8.1 L, Hct 26.0 L, MCV 84.7, MCH 26.4 L , MCHC 31.2 L, RDW Std Deviation 50.3 H, RDW Coeff of Ngoc 16.5 H, Plt Count 83 L , MPV 10.3, Immature Gran % (Auto) 0.400, Neut % (Auto) 80.0 H, Lymph % (Auto) 8.1 L, [place] % (Auto) 9.8, Eos % (Auto) 1.3, Baso % (Auto) 0.4, Absolute Neuts (auto) 3.6, Absolute Lymphs (auto) 0.36 L, Nucleated RBC % 0, Sodium 135 L, Potassium 4.8, Chloride 105, Carbon Dioxide 24.0, Anion Gap 6, BUN 59 H, C reatinine 2.12 H, Estim Creat Clear Calc 34.50, Est GFR (MDRD) Af Amer 39 L, Est GFR (MDRD) Non-Af 32 L, BUN/Creatinine Ratio 27.8 H, Glucose 177 H, Calcium 8.0 L Cardiology Labs/Tests 05/21/24 01:25: Hemoglobin A1c 6.1 H 05/22/24 03:11: WBC 4.5, RBC 3.07 L, Hgb 8.1 L, Hct 26.0 L, MCV 84.7, MCH 26.4 L , MCHC 31.2 L, Plt Count 83 L, MPV 10.3, Immature Gran % (Auto) 0.400, Neut % (Auto) 80.0 H, Lymph % (Auto) 8.1 L, [place] % (Auto) 9.8, Eos % (Auto) 1.3, Baso % (Auto) 0.4, Absolute Neuts (auto) 3.6, Nucleated RBC % 0, Sodium 135 L, Potassium 4.8, Chloride 105, Carbon Dioxide 24.0, Anion Gap 6, BUN 59 H, C reatinine 2.12 H, Est GFR (MDRD) Af Amer 39 L, Est GFR (MDRD) Non-Af 32 L, B UN/Creatinine Ratio 27.8 H, Glucose 177 H, Calcium 8.0 L Rhythm: EKG: ECHO: Stress Test: Cardiac Cath: PCI: CT Surgery: Holter monitor: EPS: PPM: CXR: Chest CT Scan: Radiography Diagnostic Testing: Radiology Impression Echocardiogram 05/21/24 08:10 Interpretation Summary Normal LV size. Mild concentric left ventricular hypertrophy. The left ventricular ejection fraction is 40 %. Stage 1 diastolic dysfunction. Mild to moderate segmental systolic dysfunction (see wall motion). Stable appearing bioprosthetic mitral valve apparatus. Mean transmitral valve gradient 8.7 mmHg. Ordering Physician: Hemant Blanchard Referring Physician: Matthew Morillo Performed By: Alma Almaraz RCS Assessment & Plan Assessment/Plan (1) Transient complete heart block: PLAN: Patient experienced transient complete heart block. The etiology is not entirely clear but could be multifactorial with vagal as well as electrolytes and beta-brisa. I suspect due to pressure on carotid body. For now I will suggest that we observe. Can follow-up as outpatient with 48-hour Holter monitor. (2) Carotid artery disease: QUALIFIERS: Carotid artery disease type: stenosis [facility] Qualified Code(s): I65.21 - Occlusion and stenosis of right carotid artery PLAN: Patient is status post carotid endarterectomy. The plan is to continue current therapy as per the vascular surgeon. (3) CAD (coronary artery disease): PLAN: Patient has known coronary disease recently stented left anterior descending artery and a totally occluded right coronary artery. No evidence of ischemia at this time we will continue to monitor. (4) History of mitral valve replacement with bioprosthetic valve: PLAN: Patient has a history of mitral valve replacement with a bioprosthetic valve which appears to be stable. The gradient across the mitral valve is mildly increased but will observe and repeat in 3 months. (5) Hyperlipidemia: QUALIFIERS: Hyperlipidemia type: unspecified Qualified Code(s): E 78.5 - Hyperlipidemia, unspecified PLAN: Patient has a history of hyperlipidemia and will continue with aggressive risk factor modification. (6) Essential (primary) hypertension: PLAN: His blood pressure appears to be under fair control at this time I will suggest that we hold off on the beta-brisa and continue the amlodipine and losartan for now.
[2024-05-22 08:49] LABS: Bedside Glucose 157 mg/dL (74-106)
[2024-05-22] MEDS: Insulin Glargine-YFGN 100 UNIT/ML Pen 40 UNIT SC (10:53)
--- NOTE | 2024-05-22 10:55 | PCM.PN.HOSP ---
Reason for Visit Reason for Visit: Diagnoses Hyperlipidemia, unspecified (05/20/24) Hyperkalemia (05/20/24) Essential (primary) hypertension (05/20/24) Atherosclerotic 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[place] coronary artery without angina pectoris (05/20/24) Atrioventricular block, complete (05/20/24) Occlusion and stenosis of right carotid artery (05/20/24) Chronic kidney disease, stage 3b (05/20/24) Syncope and collapse (05/20/24) Presence of xenogenic heart valve (05/20/24) Objective Data Objective Data Vital Signs: Vital Signs Temp Pulse Resp BP Pulse Ox O2 Del Method O2 Flow Rate 97.3 F L 81 16 138/52 H 91 Room Air 1 05/22/24 06:00 05/22/24 08:00 05/22/24 08:00 05/22/24 08:00 05/22/24 08:00 05/22/24 08:00 05/22/24 07:00 Oxygen Flow Rate (L/min) 1 Oxygen Delivery Method Room Air Weight: 210 lb 15.718 oz Body Mass Index (BMI) 29.5 Intake & Output: Intake and Output for Last 24 Hours 05/20/24 05/21/24 05/22/24 23:59 23:59 23:59 Intake Total 2703.25 / 3003.25 2572.5 / 2572.5 200 / 200 Output Total 960 / 960 1635 / 1635 450 / 450 Balance 1743.25 / 2043.25 937.5 / 937.5 -250 / -250 Lab / Micro Data 05/22/24 03:11 05/22/24 03:11 Labs: Laboratory Results - last 24 hr 05/21/24 12:03: POC Glucose 181 H 05/21/24 15:38: POC Glucose 154 H 05/21/24 20:41: POC Glucose 251 H 05/22/24 03:11: WBC 4.5, RBC 3.07 L, Hgb 8.1 L, Hct 26.0 L, MCV 84.7, MCH 26.4 L, MCHC 31.2 L, RDW Std Deviation 50.3 H, RDW Coeff of Ngoc 16.5 H, Plt Count 83 L, MPV 10.3, Immature Gran % (Auto) 0.400, Neut % (Auto) 80.0 H, Lymph % (Auto) 8.1 L, [place] % (Auto) 9.8, Eos % (Auto) 1.3, Baso % (Auto) 0.4, Absolute Neuts (auto) 3.6, Absolute Lymphs (auto) 0.36 L, Nucleated RBC % 0, Sodium 135 L, Potassium 4.8, Chloride 105, Carbon Dioxide 24.0, Anion Gap 6, BUN 59 H, Creatinine 2.12 H, Estim Creat Clear Calc 34.50, Est GFR (MDRD) Af Amer 39 L, Est GFR (MDRD) Non-Af 32 L, BUN/Creatinine Ratio 27.8 H, Glucose 177 H, Calcium 8.0 L 05/22/24 07:49: POC Glucose 157 H Physical Exam Narrative Seen and examined. Discussed with the vascular surgeon attending Dr. Matthew Evans, his PA and sales counselor Dr. Blanchard. Patient is states his right neck is better. No significant pain. No shortness of breath. He feels okay to go home. Physical exam General: Alert, Oriented x3, Cooperative HEENT: Atraumatic, PERRLA, EOMI, Normocephalic Oral: No Gingival or Mucosal Lesions/ Ulcerations Neck: Supple, No JVD, carotid bruit present. Right neck dressing is dry. Right neck HANS drain was removed. Chest wall/Lungs: Air entry diminished in bilateral lung bases. No crepitation/rhonchi Cardiovascular: Regular rate, Regular Rhythm, Normal S1, Normal S2, systolic murmur present. Abdomen: Bowel Sounds Present, Soft, Non Tender, Non-Distended : No dysuria. No renal angle tenderness. No suprapubic tenderness. Extremities: No edema, Capillary Refill Less than 3 Seconds Skin: Surgical dressing is dry. HANS drain removed. Subcutaneous ecchymosis over neck. Musculoskeletal: No Tenderness to Palpation of Joints or Extremities Neurological: Cranial nerves II-XII grossly intact, DTR 2+/4. No acute focal neurological deficit. Psych/Mental Status: Normal Affect, Appropriate. Assessment & Plan Assessment/Plan (1) Cardiac related syncope: (2) Hyperkalemia: (3) Stenosis of right carotid artery without infarction: (4) Chronic kidney disease, stage 3b: PLAN: Plan Patient is a 79-year-old male who presented to [facility] on 05/[facility]/2024 for planned carotid endarterectomy procedure. Medicine consulted postoperatively for medical management. 1. Brief episode of asystole with pulselessness ? TYLER CHAVEZ called on late evening of 05/20 for episode of asystole with pulselessness. Received several seconds of chest compressions and dose of atropine with return of heart rhythm and pulse. Unclear etiology for episode but vasovagal syncope event seems most likely given recent right sided CEA procedure with postop hematoma as noted below. Hemodynamically stable post event and mentating appropriately. Will keep pads on the patient for now and have atropine at the bedside. 05/22: Asystolic/CODE BLUE most likely due to carotid artery compression as there was hematoma deep to sternomastoid, interior to deep cervical fascia. After the hematoma was evacuated, patient did well. vehicle monitor technician shows normal sinus rhythm. No significant sinus pauses or bradycardia or significant arrhythmia. Was evaluated by sales counselor. Patient will be sent home on 48-hour monitor tech. Follow-up with the vascular surgery and cardiology office. 2. Right carotid artery stenosis s/p carotid endarterectomy complicated by postoperative hematoma ? Vascular surgery primary. S/p CEA procedure on 05/20, patient tolerated procedure well. Unfortunately complicated by postoperative hematoma requiring return to the OR on early childhood associate teacher of 05/21. Patient overall did well after second surgery of hematoma evacuation. Except as mentioned above. 3. Hyperkalemia ? Potassium 5.8 on labs drawn shortly after CODE BLUE event. Suspect due to mild kidney injury with medications possibly contributing. Treated with insulin and dextrose. Repeat potassium pending. Monitor daily BMP. 05/22: Hypokalemia resolved. 4. Mild creatinine elevation in setting of CKD stage IIIb ? Creatinine 2.50 postoperatively, baseline around 1.8-2.1. Suspect due to mild dehydration postoperatively. Continue maintenance IV fluids for now, follow-up a.m. BMP and monitor urine output. 05/22 creatinine 2.12. Improving. CKD stage IIIb 5. Mild acute blood loss anemia in setting of chronic anemia ? Hemoglobin 9.2 postoperatively. Most recent hemoglobin 11.5 on 04/15 but baseline hemoglobin appears to be around 10. Monitor daily CBC. 6. Thrombocytopenia ? Platelets 98 postoperatively. Has had multiple platelet values in the 120s to 130s in the past. Suspect mild decrease is secondary to acute concerns as noted above. Monitor daily CBC. 7. HFrEF not in acute exacerbation, history of CAD with stenting, history of mitral valve replacement, hypertension, hyperlipidemia ? Last echo on 02/17/2024 showed EF 45% with hypokinetic mid?anteroseptal LV wall and moderate concentric LV hypertrophy. This notably was improved from EF 35% in August 2023. Presented with acute heart failure symptoms at that time and found to have CAD on cath with stent placement x 1. Not in acute heart failure exacerbation at this time. Continue home amlodipine, Lopressor, aspirin, Plavix and atorvastatin. Will hold home Lasix and Jardiance for now, plan to restart on 05/22. 8. Type 2 diabetes mellitus with hyperglycemia ? Home regimen of insulin glargine 40 units daily and insulin aspart 18 units with meals. Blood glucose 212 postoperatively. Will treat with home glargine and sliding scale insulin with meals for now with serial Accu-Cheks, adjust as needed. DVT prophylaxis: SCDs CODE STATUS: Full code, verified Patient had HANS drain removed. Remove Herbert catheter. PT and OT. If patient does not feel dizziness or lightheaded can be discharged home. Charges/Coding Addendum Addendum: Total time of the visit including total time spent in counseling or coordination of care, (more than 50% of the total time, spent in obtaining medical information from nurses and other ancillary care providers,explaining to the patient about labs, imaging, diagnosis and management of active complex medical conditions), discussion with attending vascular surgeon and sales counselor, clinical update from the nursing staff, review of monitor tech, review of labs and imaging is 40 minutes. Visit Charges Inpatient E&M: 32112 Subs Hosp L3
[2024-05-22 11:17] LABS: Bedside Glucose 183 mg/dL (74-106)
--- NOTE | 2024-05-22 14:11 | PN.SURG_ITS ---
Subjective Subjective He was seen this morning resting comfortably in bed and seen again this afternoon sitting up in the chair. He has been tolerating a normal diet. This morning he was having some urinary retention, but was able to void a large amount this afternoon. He has not had a bowel movement but has had flatulence. He worked with PT and OT today and did well. He denies any pain at the incision site. He has not had any further cardiac events. Objective Data Objective Data Vital Signs: Vital Signs Temp Pulse Resp BP Pulse Ox O2 Del Method O2 Flow Rate 98.6 F 79 18 133/58 H 96 Room Air 1 05/22/24 12:42 05/22/24 14:00 05/22/24 14:00 05/22/24 14:00 05/22/24 14:00 05/22/24 14:00 05/22/24 07:00 Oxygen Flow Rate (L/min) 1 Oxygen Delivery Method Room Air Weight: 210 lb 15.718 oz Body Mass Index (BMI) 29.5 Intake & Output: Intake and Output for Last 24 Hours 05/20/24 05/21/24 05/22/24 23:59 23:59 23:59 Intake Total 2703.25 / 3003.25 2572.5 / 2572.5 200 / 200 Output Total 960 / 960 1635 / 1635 450 / 450 Balance 1743.25 / 2043.25 937.5 / 937.5 -250 / -250 Lab / Micro Data 05/22/24 03:11 05/22/24 03:11 Labs: Laboratory Results - last 24 hr 05/21/24 15:38: POC Glucose 154 H 05/21/24 20:41: POC Glucose 251 H 05/22/24 03:11: WBC 4.5, RBC 3.07 L, Hgb 8.1 L, Hct 26.0 L, MCV 84.7, MCH 26.4 L , MCHC 31.2 L, RDW Std Deviation 50.3 H, RDW Coeff of Ngoc 16.5 H, Plt Count 83 L , MPV 10.3, Immature Gran % (Auto) 0.400, Neut % (Auto) 80.0 H, Lymph % (Auto) 8.1 L, [place] % (Auto) 9.8, Eos % (Auto) 1.3, Baso % (Auto) 0.4, Absolute Neuts (auto) 3.6, Absolute Lymphs (auto) 0.36 L, Nucleated RBC % 0, Sodium 135 L, Potassium 4.8, Chloride 105, Carbon Dioxide 24.0, Anion Gap 6, BUN 59 H, C reatinine 2.12 H, Estim Creat Clear Calc 34.50, Est GFR (MDRD) Af Amer 39 L, Est GFR (MDRD) Non-Af 32 L, BUN/Creatinine Ratio 27.8 H, Glucose 177 H, Calcium 8.0 L 05/22/24 07:49: POC Glucose 157 H 05/22/24 10:51: POC Glucose 183 H Physical Exam Const alert, oriented x3 and no apparent distress General Appearance: cooperative and comfortable HEENT normocephalic, head/scalp atraumatic, external ears normal and external nose normal Eyes EOMs intact bilaterally General Eye: normal appearance of both eyes Neck Neck Narrative: R neck incision site with postoperative dressing C/D/I. There is expected significant ecchymosis around the incision site. The surgical site is soft to palpation. Resp normal respiratory effort, normal air movement, no retractions and no use of accessory muscles Effort and Inspection: able to speak in complete sentences Cardio Rate: regular rate Rhythm: regular rhythm Extremity normal to inspection and no clubbing, cyanosis or edema Skin no rashes or lesions noted Neuro oriented x3, CN's II-XII intact bilaterally, moves all extremities, no focal motor deficits and no sensory deficits noted Speech: speech normal Psych mental status grossly normal Appearance: grossly normal Attitude: calm and engaged Activity / Motor Behavior: appropriate eye contact Speech: normal speech Mood & Affect: euthymic mood Judgement: judgement good Assessment & Plan Assessment/Plan (1) Stenosis of right carotid artery without infarction: PLAN: He is POD#2 from R CEA and POD#1 from R neck hematoma evacuation. The surgical site remains soft to palpation today, no significant swelling. HANS drain was removed without issue and he tolerated this well. He reprts minimal discomfort at the incision site. He was able to urinate today. He did well with PT/OT. Continue ASA/Plavix. No further cardiac events. Will continue to hold metoprolol per cardiology. Plan is still for 48hr Holter monitor ordered by cardiology. Will plan for discharge home this afternoon.
--- NOTE | 2024-05-22 14:38 | DS.PCM_ITS ---
Providers Date of Admission: 05/20/24 Primary Care Physician: EMY Rahman Consultations 05/21/24 07:43 Consult: Cardiology Routine Consulting Provider: Hemant Blanchard Reason for Consult: arrythmia, bradycardia/asystole EMERGENT Consult: No MD Notified: Yes Date Notified: 05/21/24 Time Notified: 07:43 Method of Notification: Text Reason For Visit: Right Carotid Endarterectomy Diagnosis Discharge Diagnosis (1) Stenosis of right carotid artery without infarction: Status: Chronic Code(s): I65.21 - Occlusion and stenosis of right carotid artery Plan: He is POD#2 from R CEA and POD#1 from R neck hematoma evacuation. The surgical site remains soft to palpation today, no significant swelling. HANS drain was removed without issue and he tolerated this well. He reprts minimal discomfort at the incision site. He was able to urinate today. He did well with PT/OT. Continue ASA/Plavix. No further cardiac events. Will continue to hold metoprolol per cardiology. Plan is still for 48hr Holter monitor ordered by cardiology. Will plan for discharge home this afternoon. Medications at Discharge Home Medications amlodipine 10 mg tablet 10 mg PO DAILY BLOOD PRESSURE #90 tabs 07/11/21 cyanocobalamin (vitamin B-12) 1,000 mcg/mL injection kit 1,000 mcg subcut QMONTH SUPPLEMENT 07/10/22 multivitamin 1 tab PO DAILY SUPPLEMENT 07/23/23 aspirin 81 mg tablet,delayed release 81 mg PO DAILY HEART HEALTH 30 days #30 tabs 09/07/23 atorvastatin 40 mg tablet 40 mg PO QHS CHOLESTEROL 30 days #30 tabs 09/07/23 furosemide 40 mg tablet 40 mg PO DAILY FLUID 10/02/23 empagliflozin 25 mg tablet (Jardiance) 25 mg PO DAILY DIABETES 01/20/24 ferrous sulfate 325 mg (65 mg iron) tablet 325 mg PO DAILY IRON SUPPLEMENT 03/12/24 insulin aspart U-100 100 unit/mL (3 mL) subcutaneous pen 18 unit subcut TIDCM DIABETES 03/12/24 insulin glargine 100 unit/mL (3 mL) subcutaneous pen 40 unit subcut DAILY DIABETES 03/12/24 clopidogrel 75 mg tablet (Plavix) 75 mg PO QDAY BLOOD THINNER #90 tabs 04/06/24 docusate sodium 100 mg capsule 100 mg PO BID PRN PRN Constipation 7 days #14 caps 05/22/24 tamsulosin 0.4 mg capsule 0.4 mg PO DAILY@1730 14 days #14 caps 05/22/24 Hospital Course Summary of Care Provided Hospital Course: Mr. Martinez is a 79-year-old male who presented for a right carotid endarterectomy on 05/20/2024. He tolerated the procedure well and postoperatively was routinely admitted to the ICU for hemodynamic and neurologic monitoring. In the middle of the night following surgery patient developed transient complete heart block to asystole which resolved after about 10 seconds of CPR. Approximately 45 minutes later he was noted to have a significant increase in fullness, firmness, and tenderness around the right CEA incision site consistent with a hematoma. He was taken for hematoma evacuation on 05/21/2024 which he tolerated well. Cardiology was consulted for this transient complete heart block. Etiology unclear but felt most likely due to developing hematoma causing carotid sinus pressure. Cardiology did recommend holding patient's metoprolol and obtaining a 48-hour Holter monitor upon discharge which has been ordered. Following the hematoma evacuation, patient has been doing very well. He has not had any further cardiac events. The right CEA incision site is satisfactory in appearance with no focal swelling and is soft and nontender to palpation. He has expected significant ecchymosis. HANS drain was removed on 05/22/2024 without issue. Initially, he had difficulty voiding but ultimately was able to void a large amount of urine this afternoon. He has been tolerating a normal diet. He did well ambulating with PT/OT. He is felt to be medically stable and appropriate for discharge home today. He will have outpatient follow-up with cardiology and our office. Physical Exam Const alert, oriented x3 and no apparent distress General Appearance: cooperative and comfortable HEENT normocephalic, head/scalp atraumatic, external ears normal and external nose normal Eyes EOMs intact bilaterally General Eye: normal appearance of both eyes Neck Neck Narrative: R neck incision site with postoperative dressing C/D/I. There is expected significant ecchymosis around the incision site. The surgical site is soft to palpation. Resp normal respiratory effort, normal air movement, no retractions and no use of accessory muscles Effort and Inspection: able to speak in complete sentences Cardio Rate: regular rate Rhythm: regular rhythm Extremity normal to inspection and no clubbing, cyanosis or edema Skin no rashes or lesions noted Neuro oriented x3, CN's II-XII intact bilaterally, moves all extremities, no focal motor deficits and no sensory deficits noted Speech: speech normal Psych mental status grossly normal Appearance: grossly normal Attitude: calm and engaged Activity / Motor Behavior: appropriate eye contact Speech: normal speech Mood & Affect: euthymic mood Judgement: judgement good Weight / BMI Weight Weight: 210 lb 15.718 oz Body Mass Index (BMI) 29.5 ABG / Lab / Microbiology Data 05/22/24 03:11 05/22/24 03:11 Laboratory: Laboratory Results - last 24 hr 05/21/24 15:38: POC Glucose 154 H 05/21/24 20:41: POC Glucose 251 H 05/22/24 03:11: WBC 4.5, RBC 3.07 L, Hgb 8.1 L, Hct 26.0 L, MCV 84.7, MCH 26.4 L , MCHC 31.2 L, RDW Std Deviation 50.3 H, RDW Coeff of Ngoc 16.5 H, Plt Count 83 L , MPV 10.3, Immature Gran % (Auto) 0.400, Neut % (Auto) 80.0 H, Lymph % (Auto) 8.1 L, [place] % (Auto) 9.8, Eos % (Auto) 1.3, Baso % (Auto) 0.4, Absolute Neuts (auto) 3.6, Absolute Lymphs (auto) 0.36 L, Nucleated RBC % 0, Sodium 135 L, Potassium 4.8, Chloride 105, Carbon Dioxide 24.0, Anion Gap 6, BUN 59 H, C reatinine 2.12 H, Estim Creat Clear Calc 34.50, Est GFR (MDRD) Af Amer 39 L, Est GFR (MDRD) Non-Af 32 L, BUN/Creatinine Ratio 27.8 H, Glucose 177 H, Calcium 8.0 L 05/22/24 07:49: POC Glucose 157 H 05/22/24 10:51: POC Glucose 183 H D/C Instructions Discharge Diet: No restrictions May shower in (days): 1 Weight Bearing Status: Weight bearing as tolerated Lifting Restricted to (Lbs): 20 Lifting Restrictions: Do not lift greater than 20 pounds for 3 weeks Call your doctor if your incision/area has: Sudden Increased Bleeding, Increased Pain/ Swelling and Foul Smelling Discharge Call your doctor if you observe: Fever of 101 or Higher and Uncontrolled pain Remove Dressing in: 1 day Additional Instructions: You have a small bandage over the site from which the surgical drain was removed. You may remove this bandage tomorrow. As long as there is no residual drainage, you may leave this open to air. If you do notice some continued drainage, you may re-cover with a Band-Aid. Your incision site is covered with surgical glue which will continue to protect it. The surgical glue will peel/flake off on its own over the next few weeks. Please do not pick at it. You may shower tomorrow. It is okay for soap and water to rinse over the incision site, pat to dry. Do not submerge the incision site in water such as to take a bath or go swimming etc. for 3 weeks. Do not lift greater than 20 pounds for 3 weeks. Otherwise, you may proceed with activity as tolerated, walking is encouraged. You may continue to take Tylenol as needed for pain. Please continue to hold your metoprolol 25mg tablets twice daily as per cardiology. A 48 hour Holter Monitor has also been ordered. Please call Central Scheduling at [phone] to set up an appointment to have this placed. You have follow-up with the [facility] scheduled on 06/09/2023 at 10:00 AM and they will review your test results at that time. If you have any questions/concerns about the monitor, this medication change, or you need to change this appointment then please contact the [facility] at [phone]. You are scheduled for follow-up in the vascular surgery office on 06/09/2024 at 11:00 AM. If you have any questions, concerns, or you need to change this appointment please contact our office at [phone]. Meaningful Use Info Meaningful Use Meaningful Use Diagnoses (Choose all that apply): None applicable Ischemic Stroke Statin Dosing Therapy Reference: STATIN DOSE THERAPY REFERENCE: * Patients > 75 years receive moderate or high dose statin therapy. * Patients 75 years or YOUNGER should receive HIGH intensity statin dose unless contraindicated. You will be required to document reason for non-treatment if statin daily dose does not meet guidelines. HIGH DOSE STATIN THERAPY DAILY Atorvastatin > than or = to 40 mg Rosuvastatin > than or = to 20 mg Amlodipine + Atorvastatin > than or = to 2.5/40 mg Ezetimibe + Simvastatin 10/80 mg Simvastatin 80mg Discharge Plan Admission Admit Date/Time: 05/20/24 14:38 Primary Reason for Your Visit: Right carotid endarterectomy Attending Provider: Matthew Morillo Primary Care Provider: Angie Cheng Consulting Providers: Raimundo Colin; Hemant Blanchard Instructions Additional Instructions / Restrictions: You have a small bandage over the site from which the surgical drain was removed. You may remove this bandage tomorrow. As long as there is no residual drainage, you may leave this open to air. If you do notice some continued drainage, you may re-cover with a Band-Aid. Your incision site is covered with surgical glue which will continue to protect it. The surgical glue will peel/flake off on its own over the next few weeks. Please do not pick at it. You may shower tomorrow. It is okay for soap and water to rinse over the incision site, pat to dry. Do not submerge the incision site in water such as to take a bath or go swimming etc. for 3 weeks. Do not lift greater than 20 pounds for 3 weeks. Otherwise, you may proceed with activity as tolerated, walking is encouraged. You may continue to take Tylenol as needed for pain. Please continue to hold your metoprolol 25mg tablets twice daily as per cardiology. A 48 hour Holter monitor has been placed. You have follow-up with the [facility] scheduled on 06/09/2023 at 10:00 AM and they will review your test results at that time. If you have any questions/concerns about the monitor, this medication change, or you need to change this appointment then please contact the [facility] at [phone]. You are scheduled for follow-up in the vascular surgery office on 06/09/2024 at 11:00 AM. If you have any questions, concerns, or you need to change this appointment please contact our office at [phone]. Discharge Orders/Prescriptions Prescriptions: New docusate sodium 100 mg Capsule 100 mg PO BID PRN PRN (Reason: Constipation) 7 Days Qty: 14 0RF tamsulosin 0.4 mg Capsule 0.4 mg PO DAILY@1730 14 Days Qty: 14 0RF Continued amlodipine 10 mg tablet 10 mg PO DAILY Qty: 90 3RF cyanocobalamin (vitamin B-12) 1,000 mcg/mL kit 1,000 mcg subcut QMONTH Patient Comments: PATIENT INJECTS THIS ONCE A MONTH ON THE . multivitamin Tablet 1 tab PO DAILY Jardiance 25 mg tablet 25 mg PO DAILY Rx Instructions: Will start when current supply of jeannette is finished ferrous sulfate 325 mg (65 mg iron) tablet 325 mg PO DAILY insulin aspart U-100 100 unit/mL (3 mL) insulin pen 18 unit subcut TIDCM Rx Instructions: 18 TID before meals insulin glargine 100 unit/mL (3 mL) insulin pen 40 unit subcut DAILY atorvastatin 40 mg Tablet 40 mg PO QHS 30 Days Qty: 30 0RF aspirin 81 mg Tablet,Delayed Release (Dr/Ec) 81 mg PO DAILY 30 Days Qty: 30 0RF furosemide 40 mg tablet 40 mg PO DAILY clopidogrel [Plavix] 75 mg tablet 75 mg PO QDAY Qty: 90 3RF Discontinued metoprolol tartrate 25 mg tablet 25 mg PO BID Qty: 180 3RF Referrals / Follow Up: Angie Cheng, SNAKE CHARMER-C [Primary Care Provider] - Disposition Disposition (needs filled in before D/C Order can be placed): Home, Self Care
--- NOTE | 2024-05-22 15:04 | CASEMGMT ---
Order for DC placed. RN CM to pt room at this time. Pt states that he feels safe and comfortable discharging home today via his . Pt states that he has plenty of family support at home. Pt denies the need for HHC, OP Tx, or SNF. Pt states this isn't my first rodeo. Pt 6-Click is 24 and was cleared by PT/OT. Pt is to go home with a director cardiac x 48 hours and the RT is to set this up (per the pt RN). Pt denies further questions or concerns and is ready for DC home today.
== END 2024-05-22 16:05 | disposition home or self-care (01) | DRG 38 ==
PROVIDERS: Hospitalist; Internal Medicine; Admitting Provider Surgery Trauma Surgery; PCP Nurse Practitioner Family; Referring Provider Surgery Trauma Surgery; Visit Provider Surgery Trauma Surgery
PROC: 03CK0ZZ Extirpation of Matter from Right Internal Carotid Artery, Open Approach (ICD-10-PCS; CPT 35301; principal; 2024-05-20 10:40)
PROC: 0KC20ZZ Extirpation of Matter from Right Neck Muscle, Open Approach (ICD-10-PCS; CPT 35301; principal; 2024-05-21 03:30)
DX: I65.21 Occlusion and stenosis of right carotid artery (principal); I44.2 Atrioventricular block, complete; I13.0 Hypertensive heart and chronic kidney disease with heart failure and stage 1 through stage 4 chronic kidney disease, or unspecified chronic kidney disease; D62 Acute posthemorrhagic anemia; I50.22 Chronic systolic (congestive) heart failure; L76.32 Postprocedural hematoma of skin and subcutaneous tissue following other procedure; E86.0 Dehydration; E11.22 Type 2 diabetes mellitus with diabetic chronic kidney disease; N18.32 Chronic kidney disease, stage 3b; Z79.4 Long term (current) use of insulin; E11.65 Type 2 diabetes mellitus with hyperglycemia; I77.1 Stricture of artery; I25.10 Atherosclerotic 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native coronary artery without angina pectoris; I25.5 Ischemic cardiomyopathy; E78.5 Hyperlipidemia, unspecified; E87.5 Hyperkalemia; Z95.3 Presence of xenogenic heart valve; Y92.239 Unspecified place in hospital as the place of occurrence of the external cause; Y84.8 Other medical procedures as the cause of abnormal reaction of the patient, or of later complication, without mention of misadventure at the time of the procedure; R55 Syncope and collapse; R33.9 Retention of urine, unspecified; Z79.02 Long term (current) use of antithrombotics/antiplatelets; Z79.82 Long term (current) use of aspirin; Z79.84 Long term (current) use of oral hypoglycemic drugs; Z79.899 Other long term (current) drug therapy; Z87.891 Personal history of nicotine dependence; Z95.5 Presence of coronary angioplasty implant and graft
CPT/HCPCS: 80048; 80053; 82962; 83036; 83735; 84100; 85025; 85347; 85610; 88304; 88311; 92950; 93005; 93306; 94668; 94762; 97161; 97166; 97802; A4648; J7030; J7120; A4216; J2405

== ENCOUNTER → 2024-06-16 | Outpatient (CLI) | payer MEDICARE, SELFPAY ==
[2024-06-16 12:52] LABS: Hematocrit 30.6 % (40-54); Hemoglobin 9.6 g/dL (13.0-16.5)
== END | disposition home or self-care (01) ==
LOC: LAB 11:26
PROVIDERS: PCP Nurse Practitioner Family; Referring Provider Physician Assistant Medical; Visit Provider Physician Assistant Medical
DX: I44.2 Atrioventricular block, complete (principal); D64.9 Anemia, unspecified
CPT/HCPCS: 36415; 85014; 85018

== ENCOUNTER → 2024-06-26 | Outpatient (CLI) | payer MEDICARE, SELFPAY | END | disposition home or self-care (01) | LOC: PSN 08:42 | PROVIDERS: PCP Nurse Practitioner Family; Referring Provider Physician Assistant Medical; Visit Provider Physician Assistant Medical | DX: I44.2 Atrioventricular block, complete (principal); R55 Syncope and collapse | CPT/HCPCS: 93225; 93226 ==

== ENCOUNTER 2024-07-13 14:15 | Inpatient (IN) | payer MEDICARE, SELFPAY ==
[2024-07-13] VITALS (19 sets, daily range): BP systolic 103–127; BP diastolic 38–60; PULSE 74–87; RESP 14–26; TEMP 35.6–36.9; O2SAT 94–97; BMI 28.5
--- NOTE | 2024-07-13 15:07 | EDS_ITS ---
HPI History of Present Illness Chief Complaint: Abn Labs Informant: patient, family and PCP Narrative Narrative: Patient sent to the ER for anemia. He is been feeling very poorly for the past 2 or 3 days, very weak and lightheaded whenever he exerts himself, with some near syncope but no syncope, dyspnea with exertion, and right shoulder discomfort with exertion that now is hurting him all the time, but not worse when he moves his shoulder. He has black stools but they have been so ever since he has been on iron since April. He has seen no bright red blood per rectum. He has had some nausea but no vomiting. No history of ulcer disease. No history of abdominal surgeries. He had a right carotid endarterectomy in April, he is on aspirin and clopidogrel, he was on this prior to the surgery. Today as an outpatient, he had hemoglobin of 6.7 down from 11 at the MD 2 days ago. 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) Ischemic cardiomyopathy Occlusion and stenosis of right carotid artery Home Medications ?Medication ?Instructions ?Recorded ?Last Taken ?Type amlodipine 10 mg tablet 10 mg PO DAILY BLOOD PRESSURE #90 07/11/21 09/03/23 Rx tabs cyanocobalamin (vitamin B-12) 1,000 mcg subcut QMONTH SUPPLEMENT 07/10/22 09/11/22 History 1,000 mcg/mL injection kit multivitamin 1 tab PO DAILY SUPPLEMENT 07/23/23 09/02/23 History aspirin 81 mg tablet,delayed 81 mg PO DAILY HEART HEALTH 30 09/07/23 05/19/24 Rx release days #30 tabs atorvastatin 40 mg tablet 40 mg PO QHS CHOLESTEROL 30 days 09/07/23 Unknown Rx #30 tabs furosemide 40 mg tablet 40 mg PO DAILY FLUID 10/02/23 Unknown History empagliflozin 25 mg tablet 25 mg PO DAILY DIABETES 01/20/24 Unknown History (Jardiance) insulin aspart U-100 100 unit/mL 18 unit subcut TIDCM DIABETES 03/12/24 Unknown History (3 mL) subcutaneous pen insulin glargine 100 unit/mL (3 40 unit subcut DAILY DIABETES 03/12/24 Unknown History mL) subcutaneous pen clopidogrel 75 mg tablet (Plavix) 75 mg PO QDAY BLOOD THINNER #90 04/06/24 05/19/24 Rx tabs docusate sodium 100 mg capsule 100 mg PO BID PRN PRN Constipation 05/22/24 Unknown Rx 7 days #14 caps ferrous sulfate 325 mg (65 mg 325 mg PO BID IRON SUPPLEMENT 06/09/24 Unknown History iron) tablet ferrous sulfate 325 mg (65 mg 325 mg PO DAILY 06/16/24 Unknown History iron) tablet Allergy/AdvReac Type Severity Reaction Status Date / Time doxycycline Allergy hives Verified 07/13/24 14:20 Iodinated Contrast Media AdvReac Severe unresponsiv Verified 07/13/24 14:20 (contrast dye - iodinated) e Family History Father CAD (coronary artery disease) Hx CABG x4 vessels Myocardial infarction, Onset Age: 50 Mother Breast cancer Other Acute on chronic diastolic (congestive) heart failure Surgical History History of thoracentesis History of coronary artery stent placement Hx of colonoscopy History of left heart catheterization (09/22/18) History of mitral valve replacement with bioprosthetic valve (09/26/18) History of coronary artery stent placement (09/06/23) Social History Smoking Status: Former smoker how long ago did patient quit smokin alcohol intake: current Alcohol type: beer substance use type: does not use caffeine: Yes Type: coffee what type of physical activity do you participate in: other details: occasional rowing machine, biking frequency: other details: occasional rowing machine, biking duration: other details: occasional rowing machine, biking seatbelt use: always do you feel safe at home: Yes ROS ROS ED Constitutional Constitutional ED: Reports fatigue and weakness; Denies chills or fever(s) Eyes Eyes: Denies change in vision or diplopia ENT ENT ED: Denies rhinorrhea or sore throat Cardiovascular Cardiovascular: Reports lightheadedness and other Details: R shoulder pain, see HPI ; Denies chest pain, palpitations or syncope Respiratory/Chest Respiratory/Chest: Reports dyspnea on exertion; Denies cough Gastrointestinal Gastrointestinal: Reports melena and nausea; Denies abdominal pain, diarrhea, hematochezia or vomiting Genitourinary Genitourinary ED: Denies dysuria or hematuria Musculoskeletal Musculoskeletal: Denies back pain or neck pain Integumentary Denies abscess or rash Neurologic Neurologic: Denies headache(s), paresthesias or weakness Psychiatric Psychiatric: Denies anxiety or suicidal thoughts EXAM Physical Exam Const Vital Signs: 07/13/24 14:16 07/13/24 14:32 07/13/24 14:35 Temperature 96.1 F L 98.3 F Temperature Source Temporal Oral Pulse Rate 84 87 Respiratory Rate 20 H 15 Respiratory Effort Short of Breath Respiratory Pattern Normal Blood Pressure 108/44 L 111/44 L Blood Pressure Mean 65 66 Pulse Ox 96 Oxygen Delivery Method Room Air Room Air 07/13/24 14:42 Temperature 98.3 F Temperature Source Oral Pulse Rate 82 Respiratory Rate 21 H Respiratory Effort Respiratory Pattern Blood Pressure 111/44 L Blood Pressure Mean 66 Pulse Ox 95 Oxygen Delivery Method Room Air Positive well nourished and well developed General Appearance ED: well developed and NAD HEENT Reports moist mucous membranes normocephalic and atraumatic Eyes PERRL and EOMs intact bilaterally Neck full ROM and supple Resp normal respiratory effort and clear to auscultation bilaterally Cardio regular rate and regular rhythm GI non-tender and non-distended Auscultation: normoactive bowel sounds Palpation: soft Narrative: Rectal: Nontender, black stool present, no gross blood. Back/Spine no CVA tenderness General Back: other FROM Extremity normal to inspection Extremity Narrative: No pain with movement of the right shoulder, right shoulder is nontender. General Extremety ED: Negative for edema, pulses abnormal or tenderness General Extremity: Negative for edema or pulses abnormal Neuro oriented x3, CN's II-XII intact bilaterally and no sensory deficits noted Sensorium / Orientation: awake and alert Motor Exam: strength 5/5 throughout Psych mental status grossly normal Skin no rashes or lesions noted and no wounds MDM MDM MDM Narrative Medical decision making narrative: I reviewed outpatient studies, his hemoglobin 6.7 today, no thrombocytopenia. I reviewed his renal function, it is chronically abnormal, but his BUN is higher today, consistent with an acute upper GI bleed. Sent Hemoccult it is positive. Consented the patient for blood, family present as well, patient consents to get a blood transfusion understands that the benefits outweigh the risks, typed and crossed for 2 units. History & Record Review Additional record(s) reviewed:: Prior outpatient record Rhythm Strip Rhythm Strip: Sinus Rhythm Rate: 82 Ectopy: None EKG Initial EKG: Attestation: I personally reviewed and interpreted this EKG as follows: Interpretation: Sinus Rhythm and S-T Depression (Laterally, with T wave inversions) Prior EKG tracings: available for review Prior: Unchanged Management Discussion w/another healthcare provider: Hospitalist and Rn Float Critical Care Time Critical Care Time: Yes Critical care time (excluding procedures): 30-74 minutes (32 min), Including time spent:, Discussing w/Patient &/or Family/Insurance Processor, Discussing w/Consultants, Arranging Admission or Transfer and Performing Direct Patient Care at Bedside Discharge Plan Triage Chief Complaint: Abn Labs ED Provider: Cornel Kasper Dx/Rx/DC Orders Clinical Impression: ABLA (acute blood loss anemia), Acute upper gastrointestinal bleeding Prescriptions: No Action amlodipine 10 mg tablet 10 mg PO DAILY Qty: 90 3RF cyanocobalamin (vitamin B-12) 1,000 mcg/mL kit 1,000 mcg subcut QMONTH Patient Comments: PATIENT INJECTS THIS ONCE A MONTH ON THE . multivitamin Tablet 1 tab PO DAILY Jardiance 25 mg tablet 25 mg PO DAILY Rx Instructions: Will start when current supply of [employer] is finished ferrous sulfate 325 mg (65 mg iron) tablet 325 mg PO DAILY Rx Instructions: 2 tabs daily insulin aspart U-100 100 unit/mL (3 mL) insulin pen 18 unit subcut TIDCM Rx Instructions: 18 TID before meals insulin glargine 100 unit/mL (3 mL) insulin pen 40 unit subcut DAILY atorvastatin 40 mg Tablet 40 mg PO QHS 30 Days Qty: 30 0RF aspirin 81 mg Tablet,Delayed Release (Dr/Ec) 81 mg PO DAILY 30 Days Qty: 30 0RF docusate sodium 100 mg Capsule 100 mg PO BID PRN PRN (Reason: Constipation) 7 Days Qty: 14 0RF furosemide 40 mg tablet 40 mg PO DAILY clopidogrel [Plavix] 75 mg tablet 75 mg PO QDAY Qty: 90 3RF Primary Care Provider: Angie Cheng Referrals: Angie Cheng, [employer] [Primary Care Provider] - Print Language: Yoruba Disposition Disposition: Acute Care Hospital [facility]
[2024-07-13] MEDS: Pantoprazole Sodium 80 MG in 0.9% Normal Saline (50mL Bag) 15 ML 420 MG IV BOLUS (15:47)
[2024-07-13 15:54] LABS: Troponin-I HS 2651 pg/mL (3.0-78.0)
--- NOTE | 2024-07-13 16:15 | ED.RN ---
Per Dr. Kasper, blood should be transfused for the whole first bag to complete within an hour of being hung.
--- NOTE | 2024-07-13 16:17 | ECHOL_ITS ---
Reason For Study: ELEVATED TROPONIN Procedure This was a limited 2D transthoracic echocardiogram. Exam performed portable in ICU/CCU. Left Ventricle Mildly dilated left ventricle. Generalized hypokinesis. Severe hypokinesis of the anterior wall. Estimated LVEF 30%. Right Ventricle Normal right ventricle. Normal systolic function. Atria The left atrium is severely enlarged. The right atrium is mildly enlarged. Mitral Valve Bioprosthetic mitral valve mean peak gradient 11.2 mmHg. Tricuspid Valve Mild tricuspid valve insufficiency. Normal pulmonary artery pressure. Aortic Valve Aortic sclerosis, no stenosis. Pulmonic Valve The pulmonic valve is not well visualized. Great Vessels Normal sized aortic root. Pericardium/Pleural No pericardial effusion. Medication NO Definity due to previous reaction with use. MMode/2D Measurements & Calculations LVIDd: 5.7 cm IVSd: 1.5 cm LVOT diam: 2.0 cm LVIDs: 4.9 cm LVPWd: 1.1 cm RVDd: 4.8 cm FS: 12.7 % LVOT area: 3.2 cm2 LAV(MOD-bp): 94.5 ml LVAd ap4: 39.8 cm2 LVAd ap2: 42.0 cm2 LAV(MOD-bp) Indexed: 44.3 ml/m2 LVLd ap4: 8.7 cm LVLd ap2: 9.5 cm LAV(MOD-sp2): 93.6 ml EDV(MOD-sp4): 146.7 ml EDV(MOD-sp2): 149.5 ml LAV(MOD-sp4): 92.0 ml EDV(sp4-el): 154.9 ml EDV(sp2-el): 158.1 ml LVAs ap4: 30.4 cm2 LVAs ap2: 34.4 cm2 LVLs ap4: 7.7 cm LVLs ap2: 9.0 cm ESV(MOD-sp4): 95.0 ml ESV(MOD-sp2): 109.3 ml ESV(sp4-el): 101.2 ml ESV(sp2-el): 111.7 ml EF(MOD-sp4): 35.2 % EF(MOD-sp2): 26.9 % EF(sp4-el): 34.7 % SV(MOD-sp4): 51.7 ml SV(MOD-sp2): 40.1 ml SV(sp4-el): 53.7 ml Ao sinus diam: 2.[address] Junction: 2.1 cm LA A4 area: 26.4 cm2 LA dimension(2D): 5.2 cm RA A4 area: 23.2 cm2 TAPSE: 1.2 cm Doppler Measurements & Calculations Lat Peak E' Laurent: 5.2 cm/sec Med Peak E' Laurent: 5.3 cm/sec MV V2 max: 224.5 cm/sec MV max P.2 mmHg MV V2 mean: 161.5 cm/sec MV mean P.2 mmHg MV V2 VTI: 51.2 cm MVA(VTI): 1.3 cm2 MV P1/2t max laurent: 216.3 cm/sec Ao V2 max: 165.6 cm/sec LV V1 max: 110.3 cm/sec MV P1/2t: 68.9 msec Ao max P.0 mmHg LV V1 max P.9 mmHg MV dec slope: 919.9 cm/sec2 Ao V2 mean: 126.7 cm/sec LV V1 mean P.4 mmHg Ao mean P.9 mmHg LV V1 mean: 71.1 cm/sec MVA(P1/2t): 3.2 cm2 Ao V2 VTI: 32.2 cm LV V1 VTI: 20.1 cm AV (velocity ratio): 0.62 MARQUES(I,D): 2.0 cm2 MARQUES(V,D): 2.1 cm2 SV(LVOT): 64.3 ml PA V2 max: 76.9 cm/sec TR max laurent: 216.4 cm/sec TR max P.7 mmHg ECHO/Echo, Limited Study Interpretation Summary Mildly dilated left ventricle. Generalized hypokinesis. Severe hypokinesis of the anterior wall. Estimated LVE F 30%. The left atrium is severely enlarged. The right atrium is mildly enlarged. Bioprosthetic mitral valve mean peak gradient 11.2 mmHg. Ordering Physician: Nathalie Goddard Performed By: Isabella Bueno RDCS
[2024-07-13] MEDS: Pantoprazole Sodium 80 MG in 0.9% Normal Saline (100mL Bag) 80 ML 10 MG CONT INF (16:46)
--- NOTE | 2024-07-13 17:56 | ED.RN ---
Report given to Juan WOLF RN
--- NOTE | 2024-07-13 18:34 | PCM.HP.STD ---
HPI - General General Date of Admission: 07/13/24 Date of Service: 07/13/24 Chief Complaint: Abnormal outpatient lab HPI Narrative LOVE PHELAN, is a 79 M who presented to the emergency department at [facility] after being sent here by his PCP for anemia. The patient indicated he has been feeling weaker over the last week or so with some intermittent lightheadedness when he exerts himself and a few near syncopal events but no true syncopal events. He is also had dyspnea with exertion and reports that his stools have been black for about a month now however he has been on iron since April. He denies any true melena or hematochezia and has had no vomiting with only intermittent nausea. He is on aspirin and Plavix and had a drug-eluting stent placed in August 2023. He also had a right carotid endarterectomy in April 2024. Patient reports that he thought his hemoglobin done at the [place] 2 days ago was 11 and now it is down to 6.7 however he is unsure exactly that that was the number. We do have a hemoglobin here done on 06/16/2024 at which time it was 9.6. He denies any true chest pain but does report some right shoulder pain that has been worsening with exertion however now it is constant. Vital signs on presentation showed a temperature of 96.1, heart rate 84, respiratory was 20, blood pressure was 108/44 and pulse ox was 96% on room air. CBC shows a normal white count and platelet count however his hemoglobin is 6.7 down from 9.6 on 06/16/2024. Chemistry panel shows normal electrolytes with a chronic elevation of his serum creatinine being 2.17 and currently at baseline. BNP was 806.1 and his troponin was 2651. EKG shows no change from previous and no signs of acute ischemia. Chest x-ray showed a moderate right-sided pleural effusion. 2 units of packed red blood cells were given the emergency department. [facility] Medical History Alcohol use Thyroid nodule Insulin dependent diabetes mellitus Diabetes History of renal disease Dietary restriction History of stress test Wears glasses Wears partial dentures Gout Low iron Shortness of breath on exertion Former smoker History of echocardiogram Cardiology follow-up encounter History of heart attack Acute on chronic diastolic (congestive) heart failure Non-rheumatic mitral regurgitation Essential (primary) hypertension Diabetes mellitus type II, controlled Hyperlipidemia Atherosclerotic 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[place] coronary artery without angina pectoris (09/06/23) Ischemic cardiomyopathy Occlusion and stenosis of right carotid artery Home Medications ?Medication ?Instructions ?Recorded ?Last Taken ?Type amlodipine 10 mg tablet 10 mg PO DAILY BLOOD PRESSURE #90 07/11/21 09/03/23 Rx tabs cyanocobalamin (vitamin B-12) 1,000 mcg subcut QMONTH SUPPLEMENT 07/10/22 09/11/22 History 1,000 mcg/mL injection kit multivitamin 1 tab PO DAILY SUPPLEMENT 07/23/23 09/02/23 History aspirin 81 mg tablet,delayed 81 mg PO DAILY HEART HEALTH 30 09/07/23 05/19/24 Rx release days #30 tabs atorvastatin 40 mg tablet 40 mg PO QHS CHOLESTEROL 30 days 09/07/23 Unknown Rx #30 tabs furosemide 40 mg tablet 40 mg PO DAILY FLUID 10/02/23 Unknown History empagliflozin 25 mg tablet 25 mg PO DAILY DIABETES 01/20/24 Unknown History (Jardiance) insulin aspart U-100 100 unit/mL 18 unit subcut TIDCM DIABETES 03/12/24 Unknown History (3 mL) subcutaneous pen insulin glargine 100 unit/mL (3 40 unit subcut DAILY DIABETES 03/12/24 Unknown History mL) subcutaneous pen clopidogrel 75 mg tablet (Plavix) 75 mg PO QDAY BLOOD THINNER #90 04/06/24 05/19/24 Rx tabs ferrous sulfate 325 mg (65 mg 325 mg PO BID IRON SUPPLEMENT 06/09/24 Unknown History iron) tablet ferrous sulfate 325 mg (65 mg 325 mg PO DAILY 06/16/24 Unknown History iron) tablet Allergy/AdvReac Type Severity Reaction Status Date / Time doxycycline Allergy hives Verified 07/13/24 14:20 Iodinated Contrast Media AdvReac Severe unresponsiv Verified 07/13/24 14:20 (contrast dye - iodinated) e Family History Father CAD (coronary artery disease) Hx CABG x4 vessels Myocardial infarction, Onset Age: 50 Mother Breast cancer Other Acute on chronic diastolic (congestive) heart failure Surgical History History of thoracentesis History of coronary artery stent placement Hx of colonoscopy History of left heart catheterization (09/22/18) History of mitral valve replacement with bioprosthetic valve (09/26/18) History of coronary artery stent placement (09/06/23) Social History Smoking Status: Former smoker how long ago did patient quit smokin alcohol intake: current Alcohol type: beer substance use type: does not use caffeine: Yes Type: coffee what type of physical activity do you participate in: other details: occasional rowing machine, biking frequency: other details: occasional rowing machine, biking duration: other details: occasional rowing machine, biking seatbelt use: always do you feel safe at home: Yes ROS Constitutional Constitutional: Reports fatigue, malaise and weakness; Denies anorexia, change in weight, chills, fever(s), night sweats or other Eyes Eyes: Denies blurry vision, change in eye color, change in vision, discharge from eye(s), double vision, erythema, eye pain, loss of vision or other ENT HEENT: Denies abnormal hearing, dysphagia, ear pain, epistaxis, headache(s), hearing loss, nasal congestion, nasal discharge, post nasal drip, sinus pressure, sore throat or other Cardiovascular Cardiovascular: Reports dyspnea on exertion, lightheadedness and other Details: Presyncope ; Denies chest pain, claudication, edema, orthopnea, palpitations, paroxysmal nocturnal dyspnea, rapid heart rate or syncope Respiratory/Chest Respiratory/Chest: Denies cough, dyspnea, excessive phlegm production, hemoptysis, productive cough, shortness of breath at rest, shortness of breath with exertion, wheezing or other Gastrointestinal Gastrointestinal: Denies abdominal pain, coffee ground emesis, constipation, diarrhea, dyspepsia, hematemesis, hematochezia, loose stools, melena, nausea, vomiting or other Genitourinary Genitourinary: Denies burning urination, difficulty urinating, dysuria, hematuria, nocturia, urinary frequency, urinary hesitancy, urinary incontinence, urinary urgency or other Musculoskeletal Musculoskeletal: Reports joint pain and joint stiffness; Denies arthralgias, back pain, joint swelling, myalgias, neck pain or other Neurologic Neurologic: Denies abnormal gait, abnormal speech, confusion, disequilibrium, dizziness, focal weakness, headache(s), numbness, paresthesias, seizure-like activity, seizures, syncope, tingling, tremor(s) or other Psychiatric Psychiatric: Denies anxiety, depression, homicidal ideation, suicidal ideation or other Endocrine Endocrinology: Denies change in body appearance, cold intolerance, excessive sweating, heat intolerance, polydipsia, polyuria or other Hematologic/Lymphatic Hematologic/Lymphatic: Denies anemia, easy bleeding, easy bruising, lymphadenopathy or other Allergic/Immunologic Allergic/Immunologic: Denies rhinitis, hives, eczemia, asthma or other Vital Signs Vital Signs Vital Signs: 07/13/24 14:16 07/13/24 14:32 07/13/24 14:35 Temperature 96.1 F L 98.3 F Temperature Source Temporal Oral Pulse Rate 84 87 Respiratory Rate 20 H 15 Respiratory Effort Short of Breath Respiratory Pattern Normal Blood Pressure 108/44 L 111/44 L Blood Pressure Mean 65 66 Blood Pressure Source Blood Pressure Position Pulse Ox 96 Oxygen Delivery Method Room Air Room Air 07/13/24 14:42 07/13/24 15:23 07/13/24 15:51 Temperature 98.3 F 98.0 F Temperature Source Oral Temporal Pulse Rate 82 83 82 Respiratory Rate 21 H 26 H 22 H Respiratory Effort Respiratory Pattern Blood Pressure 111/44 L 103/45 L 107/38 L Blood Pressure Mean 66 64 61 Blood Pressure Source Blood Pressure Position Pulse Ox 95 94 97 Oxygen Delivery Method Room Air Room Air Room Air 07/13/24 16:10 07/13/24 16:25 07/13/24 17:00 Temperature 98.4 F 98.3 F 98.3 F Temperature Source Oral Oral Oral Pulse Rate 81 84 81 Respiratory Rate 17 21 H 19 H Respiratory Effort Respiratory Pattern Blood Pressure 105/53 L 116/49 L 114/52 L Blood Pressure Mean 70 71 72 Blood Pressure Source Monitor Blood Pressure Position Supine Pulse Ox 95 96 94 Oxygen Delivery Method Room Air Room Air 07/13/24 17:25 07/13/24 17:25 07/13/24 17:45 Temperature 98.1 F 98.1 F 98.1 F Temperature Source Oral Oral Oral Pulse Rate 84 84 85 Respiratory Rate 19 H 17 17 Respiratory Effort Respiratory Pattern Blood Pressure 114/54 L 118/52 L 118/52 L Blood Pressure Mean 74 74 74 Blood Pressure Source Monitor Blood Pressure Position Pulse Ox 95 96 95 Oxygen Delivery Method 07/13/24 17:47 07/13/24 18:00 Temperature 98.1 F 98.2 F Temperature Source Oral Pulse Rate 83 83 Respiratory Rate 18 20 H Respiratory Effort Respiratory Pattern Blood Pressure 118/52 L 118/51 L Blood Pressure Mean 74 73 Blood Pressure Source Monitor Blood Pressure Position Pulse Ox 94 95 Oxygen Delivery Method Weight Weight: 97.8 kg Body Mass Index (BMI) 30.0 Physical Exam Const alert, oriented x3, no apparent distress, average body habitus and well nourished; Negative for healthy appearing Constitutional Narrative: Pale appearing older, white male, sitting up in bed, family at bedside, currently appears comfortable, does not appear toxic General Appearance: cooperative HEENT normocephalic, head/scalp atraumatic and moist oral mucous membranes HEENT Narrative: Moderate hearing loss, Mallampati 2, dentures in place, no thrush Eyes PERRL and EOMs intact bilaterally; Negative for conjunctivae normal Eyes Narrative: No scleral icterus, conjunctiva are pale bilaterally Neck no lymphadenopathy, supple and no JVD Neck Narrative: Right side of neck with healing postoperative incision from CEA Resp normal respiratory effort, no retractions, no use of accessory muscles and clear to auscultation bilaterally Auscultation: Negative for rales, rhonchi or wheezes Cardio regular rate, regular rhythm, S1 normal heart sound, S2 normal heart sound, no murmurs, no rub, no gallops and no clicks GI normal to inspection, nondistended, normoactive bowel sounds, soft to palpation and non-tender GI Narrative: Rectus diastasis hernia noted Palpation: hernia Extremity no clubbing, cyanosis or edema Extremity Narrative: Pedal pulses are 1+, radial pulses are 2+ Skin Skin Narrative: Pale appearing Neuro oriented x3, moves all extremities and no focal motor deficits Speech: speech normal Psych affect normal Psych Narrative: Very pleasant, interacts appropriately Results Lab / Micro Data Labs: Laboratory Results - last 24 hr 07/13/24 14:42: Blood Type B POSITIVE, Antibody Screen NEGATIVE, Crossmatch See Detail 07/13/24 14:42: Crossmatch See Detail 07/13/24 15:20: Troponin I High Sens 2651 H* Micro: Microbiology 07/13/24 14:54 Stool Stool Occult Blood (DIEGO) - Final Occult Blood Positive Rhythm Strip Rhythm Strip: Sinus Rhythm Rate: 82 Ectopy: None Assessment & Plan Assessment/Plan (1) Acute non-ST elevation myocardial infarction (NSTEMI): (2) Acute upper gastrointestinal bleeding: (3) ABLA (acute blood loss anemia): PLAN: Plan Acute blood loss anemia on chronic anemia -Continue home iron supplementation -Transfused 2 units of packed red blood cells -Baseline hemoglobin has been running between 9 and 10 -Hemoglobin 6.7 on presentation -Check every 6 hour hemoglobin after transfusion -Placed 2 units on hold -Highly suspect upper GI bleed with positive guaiac stool -Protonix bolus and drip started -Hold aspirin and Plavix per discussion with cardiology -GI consultation Suspected upper GI bleed -Hold aspirin and Plavix as noted above per discussion with cardiology -Protonix bolus and drip -GI consultation Right pleural effusion -Appears to be moderate in size -Blood pressures are soft due to bleeding -Unable to aggressively diurese so we will plan for thoracentesis tomorrow -Thora ordered as well as fluid studies -Check a.m. LDH Acute NSTEMI -Highly suspect related to acute anemia -Per discussion with cardiology okay to hold aspirin and Plavix due to GI bleed -Patient has known history of cardiac disease with most recent stent placed in proximal LAD 08/2023 -Cycle cardiac enzymes -Check limited echo as patient had recent echo in April -Consult cardiology--> Case was discussed with Dr. Leon by the emergency department CKD stage IV -Serum creatinine appears to be at baseline -Monitor creatinine closely Right carotid artery stenosis -Status post right carotid endarterectomy April 2024 -Aspirin and Plavix on hold CAD/essential hypertension/hyperlipidemia/chronic HFrEF -Continue Jardiance -Hold Lasix -Continue atorvastatin -Hold amlodipine -Hold aspirin/Plavix -Patient does not appear to be decompensated with regards to his heart failure however we will have to monitor closely with blood administration -Last echocardiogram done on 05/21/2024 at which time he was found to have an EF of 40% with stage I diastolic dysfunction and mild to moderate segmental systolic dysfunction, stable appearing bioprosthetic mitral valve apparatus DM-2 -Hold prandial insulin as patient is n.p.o. -Decrease basal insulin from 40 to 20 units as patient is n.p.o. -Continue home Jardiance History of gout -No signs of acute decompensation -Monitor DVT prophylaxis -SCDs -chemoprophylaxis contraindicated due to GI bleed CODE STATUS -Full code as verified on admission Charges/Coding Visit Charges Inpatient E&M: 98542 Init Hosp L3
[2024-07-13 18:52] LABS: Hematocrit 25.1 % (40-54); Hemoglobin 7.8 g/dL (13.0-16.5)
[2024-07-13 19:24] LABS: Troponin-I HS 4487 pg/mL (3.0-78.0)
[2024-07-13] MEDS: 0.9% Saline Lock 10 ML Syringe IV (20:10)
[2024-07-13] MEDS: Ferrous Sulfate 325 MG Tablet PO (20:10)
[2024-07-13 21:26] LABS: Hematocrit 26.2 % (40-54); Hemoglobin 8.2 g/dL (13.0-16.5)
[2024-07-13 21:36] LABS: Bedside Glucose 145 mg/dL (74-106)
[2024-07-13 22:04] LABS: Troponin-I HS 7153 pg/mL (3.0-78.0)
[2024-07-14] VITALS (34 sets, daily range): BP systolic 87–130; BP diastolic 42–77; PULSE 72–92; RESP 11–24; TEMP 36.1–36.7; O2SAT 93–100; BMI 28.0
[2024-07-14] MEDS: 0.9% Saline Lock 10 ML Syringe IV (00:59)
[2024-07-14] MEDS: Insulin Lispro 100 UNIT/ML INSULN.PEN SC ×3 (00:59→21:39)
[2024-07-14 01:37] LABS: Troponin-I HS 10918 pg/mL (3.0-78.0)
[2024-07-14] MEDS: Pantoprazole Sodium 80 MG in 0.9% Normal Saline (100mL Bag) 80 ML 10 MG CONT INF ×2 (02:06→13:02)
[2024-07-14 05:33] LABS: Absolute Lymphocyte Count 0.54 X10^3/uL (0.83-4.51); Absolute Neutrophil Count 4.2 X10^3/uL (2.0-7.7); Basophil# 0.04 X10^3/uL; Basophil% 0.7 % (0-1); Eosinophil# 0.09 X10^3/uL; Eosinophils% 1.7 % (0-5); Hematocrit 25.3 % (40-54); Lymphocyte # 0.54 X10^3/ul (0.83-4.51); Mean Corp Hgb Conc 31.6 g/dL (32-36); Mean Corpuscular Volume 88.5 fL (80-94); Mean Platelet Vol. 10.3 fl (6.2-12.0); Monocyte# 0.48 X10^3/uL; Monocyte% 8.9 % (0-10); NRBC Flagged by Analyzer 0 % (0-5); Neutrophil # 4.22 X10^3/uL (2.7-7.7); Neutrophil % 78.1 % (47-70); POSITIVE DIFFERENTIAL YES; Platelet Count 145 K/mm3 (150-450); RBC Distribution Width SD 56.3 fl (35.1-43.9); Red Blood Count 2.86 M/mm3 (4.6-6.2); White Blood Count 5.4 K/mm3 (4.4-11.0)
[2024-07-14 05:43] LABS: Bedside Glucose 144 mg/dL (74-106)
[2024-07-14 05:53] LABS: ALB/GLOB Ratio 0.8 RATIO (0.9-2.4); AST(SGOT) 59 U/L (15-37); Alanine Aminotransfer ALT/SGPT 21 U/L (16-61); Albumin, Serum 3.1 g/dL (3.2-5.0); Alkaline Phosphatase 86 U/L (45-117); Anion Gap 7 (5-15); BUN 87 mg/dL (7-18); BUN/Creat Ratio 39.7 RATIO (10-20); Calcium,Total 8.7 mg/dL (8.5-10.1); Chloride 108 mmol/L (98-107); Creatinine, Serum 2.19 mg/dL (0.70-1.30); EST Glomerular Filtration Rate 31 mL/min (>60); Est Glom Filt Rate - Afr Amer 38 mL/min (>60); Estimated Creatinine Clearance 32.91 ml/min; Globulin 3.7 g/dL (2.2-4.2); Glucose 150 mg/dL (74-106); LDH 308 U/L (87-241); Magnesium 2.5 mg/dL (1.6-2.6); Phosphorus 4.1 mg/dL (2.5-4.9); Potassium 4.7 mmol/L (3.5-5.1); Protein, Total 6.8 g/dL (6.4-8.2); Sodium Level 138 mmol/L (136-145)
--- NOTE | 2024-07-14 07:37 | PCM.PN.HOSP ---
Reason for Visit Reason for Visit: Diagnoses Acute posthemorrhagic anemia (07/13/24) Non-ST elevation (NSTEMI) myocardial infarction (07/13/24) Gastrointestinal hemorrhage, unspecified (07/13/24) Objective Data Objective Data Vital Signs: Vital Signs Temp Pulse Resp BP Pulse Ox O2 Del Method 98.1 F 91 21 H 113/59 L 96 Room Air 07/14/24 04:00 07/14/24 07:00 07/14/24 07:00 07/14/24 07:00 07/14/24 07:00 07/14/24 07:00 Oxygen Delivery Method Room Air Weight: 200 lb 13.458 oz Body Mass Index (BMI) 28.0 Intake & Output: Intake and Output for Last 24 Hours 07/12/24 07/13/24 07/14/24 23:59 23:59 23:59 Intake Total 37 / 37 93.33 / 93.33 Output Total 825 / 1475 1175 / 1175 Balance -788 / -1438 -1081.67 / -1081.67 Lab / Micro Data 07/14/24 05:20 07/14/24 05:20 Labs: Laboratory Results - last 24 hr 07/13/24 14:42: Blood Type B POSITIVE, Antibody Screen NEGATIVE, Crossmatch See Detail 07/13/24 14:42: Crossmatch See Detail 07/13/24 15:20: Troponin I High Sens 2651 H* 07/13/24 18:45: Hgb 7.8 L, Hct 25.1 L, Troponin I High Sens 4487 H* 07/13/24 20:08: POC Glucose 145 H 07/13/24 21:10: Hgb 8.2 L, Hct 26.2 L 07/13/24 21:30: Troponin I High Sens 7153 H* 07/14/24 01:05: Troponin I High Sens 63111 H* 07/14/24 05:20: WBC 5.4, RBC 2.86 L, Hgb 8.0 L, Hct 25.3 L, MCV 88.5, MCH 28.0, MCHC 31.6 L D, RDW Std Deviation 56.3 H, RDW Coeff of Ngoc 18.0 H, Plt Count 145 L, MPV 10.3, Immature Gran % (Auto) 0.600, Neut % (Auto) 78.1 H, Lymph % (Auto) 10.0 L, [place] % (Auto) 8.9, Eos % (Auto) 1.7, Baso % (Auto) 0.7, Absolute Neuts (auto) 4.2, Absolute Lymphs (auto) 0.54 L, Nucleated RBC % 0, Sodium 138, Potassium 4.7, Chloride 108 H, Carbon Dioxide 23.0, Anion Gap 7, BUN 87 H, Creatinine 2.19 H, Estim Creat Clear Calc 32.91, Est GFR (MDRD) Af Amer 38 L, Est GFR (MDRD) Non-Af 31 L, BUN/Creatinine Ratio 39.7 H, Glucose 150 H, Calcium 8.7, Phosphorus 4.1, Magnesium 2.5, Total Bilirubin 0.60, AST 59 H, ALT 21, Alkaline Phosphatase 86, Lactate Dehydrogenase 308 H, Total Protein 6.8, Albumin 3.1 L, Globulin 3.7, Albumin/Globulin Ratio 0.8 L 07/14/24 05:25: POC Glucose 144 H Micro: Microbiology 07/13/24 14:54 Stool Stool Occult Blood (DIEGO) - Final Occult Blood Positive Rhythm Strip Rhythm Strip: Sinus Rhythm Rate: 82 Ectopy: None Physical Exam Narrative Seen and examined. Patient will be going for EGD today. Also right-sided thoracocentesis scheduled for today. Overall feeling better than yesterday. Physical exam General: Alert, Oriented x3, Cooperative, fatigue HEENT: Atraumatic, PERRLA, EOMI, Normocephalic Oral: No Gingival or Mucosal Lesions/ Ulcerations Neck: Supple, No JVD, Negative Carotid Bruits Chest wall/Lungs: Air entry severely diminished on right lung base, moderate to severe right pleural effusion. No crepitation Cardiovascular: R Sinus hythm, Normal S1, Normal S2, subtle systolic murmur over cardiac Abdomen: Bowel Sounds Present, Soft, Non Tender, Non-Distended : No dysuria. No renal angle tenderness. No suprapubic tenderness. Extremities: Mild bilateral pittingedema, Capillary Refill Less than 3 Seconds Skin: No rashes, No breakdown Musculoskeletal: No Tenderness to Palpation of Joints or Extremities Neurological: Cranial nerves II-XII grossly intact, DTR 2+/4. No acute focal neurological deficit. Psych/Mental Status: Normal Affect, Appropriate. Assessment & Plan Assessment/Plan (1) Acute non-ST elevation myocardial infarction (NSTEMI): (2) Acute upper gastrointestinal bleeding: (3) ABLA (acute blood loss anemia): PLAN: Plan 79-year-old gentleman with multiple comorbidities was admitted for acute blood loss anemia on iron supplement with history of chronic anemia Patient stated he had anemia and bleed after the carotid surgery/CVA in April 2024 and had cardiac resuscitation with CPR. He also had thoracocentesis 2-3 times in the past. 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 1. Acute blood loss anemia with chronic anemia -Continue home iron supplementation -Hemoglobin 6.7 on admission. Transfused 2 units of packed red blood cells. Repeat H&H after 2 units 8.0/25.3%. Baseline hemoglobin has been running between 9 and 10 On PPI drip. GI consulted. Hold aspirin Plavix Plan for EGD today. Plan was discussed with patient's near the bedside. Right pleural effusion -Appears to be moderate in size. Right-sided thoracocentesis ordered with fluid analysis tests as per lights criteria. Hide troponin-Highly suspect related to acute anemia,/demand ischemia: Patient does not have chest pain pressure or tightness. Continue to hold aspirin and Plavix due to GI bleed. Troponin went up about 40 500-10,918. -Patient has known history of cardiac disease with most recent stent placed in proximal LAD 08/2023 -Check limited echo as patient had recent echo in April 2024 as mentioned below -The case was discussed with Dr. Leon on admission CKD stage IV -Serum creatinine appears to be at baseline -Monitor creatinine closely Right carotid artery stenosis -Status post right carotid endarterectomy April 2024 -Aspirin and Plavix on hold CAD/essential hypertension/hyperlipidemia/chronic HFrEF -Continue Jardiance -Hold Lasix -Continue atorvastatin -Hold amlodipine -Hold aspirin/Plavix -Patient does not appear to be decompensated with regards to his heart failure however we will have to monitor closely with blood administration -Last echocardiogram done on 05/21/2024 at which time he was found to have an EF of 40% with stage I diastolic dysfunction and mild to moderate segmental systolic dysfunction, stable appearing bioprosthetic mitral valve apparatus DM-2 -Hold prandial insulin as patient is n.p.o. -Decrease basal insulin from 40 to 20 units as patient is n.p.o. -Continue home Jardiance History of gout -No signs of acute decompensation -Monitor DVT prophylaxis -SCDs -chemoprophylaxis contraindicated due to GI bleed CODE STATUS -Full code as verified on admission Echo in April 2020 Interpretation Summary Normal LV size. Mild concentric left ventricular hypertrophy. The left ventricular ejection fraction is 40 %. Stage 1 diastolic dysfunction. Mild to moderate segmental systolic dysfunction (see wall motion). Stable appearing bioprosthetic mitral valve apparatus. Mean transmitral valve gradient 8.7 mmHg. Charges/Coding Visit Charges Inpatient E&M: 44350 Subs Hosp L3
[2024-07-14] MEDS: Ferrous Sulfate 325 MG Tablet PO ×2 (08:17→17:32)
--- NOTE | 2024-07-14 08:17 | CASEMGMT ---
Social Work- Pt has directives on file naming , Shannan, as primary agent. TERI Greenberg
[2024-07-14 08:31] LABS: Bedside Glucose 155 mg/dL (74-106)
--- NOTE | 2024-07-14 10:35 | CASEMGMT ---
ISRA CORBETT Assessment Face to Face with patient for initial transition planning/care coordination assessment. ISRA CORBETT introduced self and role at [facility], pt voices understanding. Pt is A&Ox4 and is resting comfortably in chair and is calm. Pt at bedside. Care providers, pharmacy, and demographics verified. 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 Pt drives the pt DME: [employer] but does not use. BGM and sufficient supplies. CBGM. [facility]. Pt also has a BP Monitor, Pulse Ox, and grab bars HHC/SNF:States HHC Hx but was not happy with the service. Denies SNF Hx or needs Pt?s goal: Home Plan: Home no needs. Pt states that he is independent and refuses the need for HHC or OP Tx. Pt states that he feels safe at home with his and denies further questions or concerns at this time. CM to follow. Maira Bowser RN, CM
--- NOTE | 2024-07-14 10:59 | CON.PCM.CA_ITS ---
Assessment & Plan Assessment/Plan (1) Acute non-ST elevation myocardial infarction (NSTEMI): PLAN: I believe this is most probably secondary to demand ischemia with his severe blood loss anemia superimposed upon his severe CAD with chronic total occlusion of the RCA. With his melena, we cannot continue his antiplatelet medications for now. Monitor closely. (2) CAD (coronary artery disease): PLAN: History of stent to the LAD in August of last year. Also noted to have chronic total occlusion of the right coronary artery. Holding antiplatelet medications because of his acute blood loss anemia. Resume either aspirin or clopidogrel when okay with gastroenterology. (3) ABLA (acute blood loss anemia): PLAN: Status post 2 units of packed cells in the emergency room. GI on consult. Likely endoscopy this afternoon. (4) Carotid artery disease: QUALIFIERS: Carotid artery disease type: stenosis [facility] Qualified Code(s): I65.21 - Occlusion and stenosis of right carotid artery PLAN: Status post right carotid endarterectomy. (5) Diabetes: PLAN: As per internal medicine. HPI Consult Data Date of Consult: 07/14/24 HPI Narrative Reason for Consultation: NSTEMI HPI Narrative: 79-year-old gentleman with past medical history significant for coronary artery disease status post drug-eluting stent to the LAD in August 2023. Also history of chronic renal insufficiency, carotid artery disease, ischemic cardiomyopathy, diabetes mellitus and dyslipidemia. Patient presented to the emergency room with complaints of progressive weakness and shortness of breath with exertion for the last few days. Also complained of right shoulder discomfort. In the emergency room, he was noted to be markedly anemic with hemoglobin of 6.7 g/dL. Also his troponin levels were noted to be elevated. Patient received 2 units of packed red cells in the emergency room. Presently feeling better. No chest pain. No shortness of breath. Denies orthopnea or PND. No ankle edema. [facility] Medical History (Updated 07/14/24 @ 11:[address] Antonio Leon MD) Alcohol use Thyroid nodule Insulin dependent diabetes mellitus Diabetes History of renal disease Dietary restriction History of stress test Wears glasses Wears partial dentures Gout Low iron Shortness of breath on exertion Former smoker History of echocardiogram Cardiology follow-up encounter History of heart attack Acute on chronic diastolic (congestive) heart failure Non-rheumatic mitral regurgitation Essential (primary) hypertension Diabetes mellitus type II, controlled Hyperlipidemia Atherosclerotic 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[place] coronary artery without angina pectoris (09/06/23) Ischemic cardiomyopathy Occlusion and stenosis of right carotid artery Home Medications ?Medication ?Instructions ?Recorded ?Last Taken ?Type amlodipine 10 mg tablet 10 mg PO DAILY BLOOD PRESSURE #90 07/11/21 09/03/23 Rx tabs cyanocobalamin (vitamin B-12) 1,000 mcg subcut QMONTH SUPPLEMENT 07/10/22 09/11/22 History 1,000 mcg/mL injection kit multivitamin 1 tab PO DAILY SUPPLEMENT 07/23/23 09/02/23 History aspirin 81 mg tablet,delayed 81 mg PO DAILY HEART HEALTH 30 09/07/23 05/19/24 Rx release days #30 tabs atorvastatin 40 mg tablet 40 mg PO QHS CHOLESTEROL 30 days 09/07/23 Unknown Rx #30 tabs furosemide 40 mg tablet 40 mg PO DAILY FLUID 10/02/23 Unknown History empagliflozin 25 mg tablet 25 mg PO DAILY DIABETES 01/20/24 Unknown History (Jardiance) insulin aspart U-100 100 unit/mL 18 unit subcut TIDCM DIABETES 03/12/24 Unknown History (3 mL) subcutaneous pen insulin glargine 100 unit/mL (3 40 unit subcut DAILY DIABETES 03/12/24 Unknown History mL) subcutaneous pen clopidogrel 75 mg tablet (Plavix) 75 mg PO QDAY BLOOD THINNER #90 04/06/24 05/19/24 Rx tabs ferrous sulfate 325 mg (65 mg 325 mg PO BID IRON SUPPLEMENT 06/09/24 Unknown History iron) tablet ferrous sulfate 325 mg (65 mg 325 mg PO DAILY 06/16/24 Unknown History iron) tablet Allergy/AdvReac Type Severity Reaction Status Date / Time doxycycline Allergy hives Verified 07/13/24 14:20 Iodinated Contrast Media AdvReac Severe unresponsiv Verified 07/13/24 14:20 (contrast dye - iodinated) e Family History Father CAD (coronary artery disease) Hx CABG x4 vessels Myocardial infarction, Onset Age: 50 Mother Breast cancer Other Acute on chronic diastolic (congestive) heart failure Surgical History History of thoracentesis History of coronary artery stent placement Hx of colonoscopy History of left heart catheterization (09/22/18) History of mitral valve replacement with bioprosthetic valve (09/26/18) History of coronary artery stent placement (09/06/23) Social History Smoking Status: Former smoker how long ago did patient quit smokin alcohol intake: current Alcohol type: beer substance use type: does not use caffeine: Yes Type: coffee what type of physical activity do you participate in: other details: occasional rowing machine, biking frequency: other details: occasional rowing machine, biking duration: other details: occasional rowing machine, biking seatbelt use: always do you feel safe at home: Yes Risk Stratification Risk Stratification Applicable: No Objective Data Vital Signs: Vital Signs Temp Pulse Resp BP Pulse Ox O2 Del Method 98.1 F 91 21 H 113/59 L 96 Room Air 07/14/24 04:00 07/14/24 07:00 07/14/24 07:00 07/14/24 07:00 07/14/24 07:00 07/14/24 08:00 Oxygen Delivery Method Room Air Weight: 200 lb 13.458 oz Body Mass Index (BMI) 28.0 Intake & Output: Intake and Output for Last 24 Hours 07/12/24 07/13/24 07/14/24 23:59 23:59 23:59 Intake Total 37 / 37 93.33 / 93.33 Output Total 825 / 1475 1175 / 1175 Balance -788 / -1438 -1081.67 / -1081.67 Lab / Micro Data 07/14/24 05:20 07/14/24 05:20 Labs: Laboratory Results - last 24 hr 07/13/24 14:42: Blood Type B POSITIVE, Antibody Screen NEGATIVE, Crossmatch See Detail 07/13/24 14:42: Crossmatch See Detail 07/13/24 15:20: Troponin I High Sens 2651 H* 07/13/24 18:45: Hgb 7.8 L, Hct 25.1 L, Troponin I High Sens 4487 H* 07/13/24 20:08: POC Glucose 145 H 07/13/24 21:10: Hgb 8.2 L, Hct 26.2 L 07/13/24 21:30: Troponin I High Sens 7153 H* 07/14/24 00:55: POC Glucose 155 H 07/14/24 01:05: Troponin I High Sens 66958 H* 07/14/24 05:20: WBC 5.4, RBC 2.86 L, Hgb 8.0 L, Hct 25.3 L, MCV 88.5, MCH 28.0, MCHC 31.6 L D, RDW Std Deviation 56.3 H, RDW Coeff of Ngoc 18.0 H, Plt Count 145 L, MPV 10.3, Immature Gran % (Auto) 0.600, Neut % (Auto) 78.1 H, Lymph % (Auto) 10.0 L, [place] % (Auto) 8.9, Eos % (Auto) 1.7, Baso % (Auto) 0.7, Absolute Neuts (auto) 4.2, Absolute Lymphs (auto) 0.54 L, Nucleated RBC % 0, Sodium 138, Potassium 4.7, Chloride 108 H, Carbon Dioxide 23.0, Anion Gap 7, BUN 87 H, C reatinine 2.19 H, Estim Creat Clear Calc 32.91, Est GFR (MDRD) Af Amer 38 L, Est GFR (MDRD) Non-Af 31 L, BUN/Creatinine Ratio 39.7 H, Glucose 150 H, Calcium 8.7, Phosphorus 4.1, Magnesium 2.5, Total Bilirubin 0.60, AST 59 H, ALT 21, Alkaline Phosphatase 86, Lactate Dehydrogenase 308 H, Total Protein 6.8, Albumin 3.1 L, Globulin 3.7, Albumin/Globulin Ratio 0.8 L 07/14/24 05:25: POC Glucose 144 H Micro: Microbiology 07/13/24 14:54 Stool Stool Occult Blood (DIEGO) - Final Occult Blood Positive Rhythm Strip Rhythm Strip: Sinus Rhythm Rate: 82 Ectopy: None Cardiology Labs/Tests 07/13/24 18:45: Hgb 7.8 L, Hct 25.1 L 07/13/24 21:10: Hgb 8.2 L, Hct 26.2 L 07/14/24 05:20: WBC 5.4, RBC 2.86 L, Hgb 8.0 L, Hct 25.3 L, MCV 88.5, MCH 28.0, MCHC 31.6 L D, Plt Count 145 L, MPV 10.3, Immature Gran % (Auto) 0.600, Neut % (Auto) 78.1 H, Lymph % (Auto) 10.0 L, [place] % (Auto) 8.9, Eos % (Auto) 1.7, Baso % (Auto) 0.7, Absolute Neuts (auto) 4.2, Nucleated RBC % 0, Sodium 138, Potassium 4.7, Chloride 108 H, Carbon Dioxide 23.0, Anion Gap 7, BUN 87 H, C reatinine 2.19 H, Est GFR (MDRD) Af Amer 38 L, Est GFR (MDRD) Non-Af 31 L, B UN/Creatinine Ratio 39.7 H, Glucose 150 H, Calcium 8.7, Phosphorus 4.1, Magnesium 2.5, Total Bilirubin 0.60 Rhythm: EKG: ECG done in the emergency room showed sinus rhythm with left bundle branch block. ECHO: Stress Test: Cardiac Cath: PCI: CT Surgery: Holter monitor: EPS: PPM: CXR: Chest CT Scan:
--- NOTE | 2024-07-14 14:41 | FLU_PTH ---
PATIENT: LOVE PHELAN LOC: [facility] U#:[id number] AGE/SX: 79/M ROOM: ICU07 RE07/13/[address]: Dr. Raimundo Colin MD : 1945 BED: 1 DIS: 07/16/2024 SPEC #: [id number] RECD: 07/14/24 14:51 STATUS: UMANG REMoi #: [id number] JOSÉ MIGUEL: 07/14/24 14:[address]: Raimundo Colin DEPT: CYTOLOGY RECD BY: Lidia Ramirez ENTERED: 07/15/24 10:26 SP TYPE: Fluid OTHR DR: MD Dr. Nathalie Alston, DO Angie Cheng, ROUTEMAN-C Tissues: THORACIC FLUID Procedures: Special Stain Group II Surgery Specimen Level IV Cytospin Fluid HEADER OPERATION: Ultrasound guided thoracentesis PRE-OP DIAGNOSIS: GIB TISSUE SUBMITTED: Thoracentesis fluid for cytology DIAGNOSIS CYTOLOGY Thoracentesis fluid for cytology (cytospin and cellblock): Negative for malignant cells. Bloody fluid. See kyaw. 07/16/2024 COMMENT Clinical correlation and appropriate follow up are necessary. CYTOLOGY STUDY Slides are reviewed. CYTOLOGY GROSS Received is 80 ml of cloudy-marla fluid labeled with the patient's name and and designated per the requisition as Thoracentesis fluid. Submitted for cytology preparation including cell block. Mr 07/15/2024 TC:5 CPT: 05518,84825
[2024-07-14] MEDS: Lidocaine 2% (20 ml mdv) 20 ML Vial INFILT (14:48)
--- NOTE | 2024-07-14 15:05 | RAD_ITS ---
STUDY: X-RAY CHEST REASON FOR EXAM: Male, 79 years old. Post thora TECHNIQUE: AP inspiration and expiration views. COMPARISON: Comparison is made with prior examination dated July 13, 2024. FINDINGS: EKG electrodes are seen. The patient is status post right thoracentesis. No evidence of pneumothorax. Residual pleural parenchymal changes at the right lung base. RAD/Chest Insp/Exp 2 View IMPRESSION: Status post right thoracentesis. No evidence of pneumothorax. Residual pleural parenchymal changes at the right lung base. Electronically Signed: Amarjit Cruz MD at 15:15 EDT ,
--- NOTE | 2024-07-14 15:20 | PCM.OP.PRO ---
Procedure Report Date of Procedure: 07/14/24 Assessment & Plan Assessment/Plan (1) Pleural effusion on right: PLAN: PROCEDURE: Ultrasound Guided Thoracentesis ORDERING PROVIDER: Dr. Goddard INDICATION: Male, 79 years old. Right pleural effusion. PROVIDER: CRISELDA Schneider PROCEDURE: The risks, benefits, and alternatives to the procedure were explained to the patient. The specific risks of bleeding, infection, and pneumothorax requiring chest tube insertion were discussed and accepted. Written informed consent was obtained. The patient was placed in the sitting, upright position. Ultrasonographic evaluation of the bilateral lower pleural spaces was carried out. An adequate pocket was identified in the right lower pleural space. The overlying skin was prepped with chlorhexidine and draped in sterile fashion. 2 % lidocaine was administered subcutaneously for local anesthesia. Under ultrasound guidance, a 5-[place] thoracentesis needle/catheter system was advanced into the right posterior lower pleural fluid collection. 1850 ml of clear red colored fluid was drained. 100 mL of this fluid was collected and sent to the laboratory. The catheter was removed, and a sterile dressing was applied. The patient tolerated the procedure well. A chest x-ray was ordered. IMPRESSION: Successful ultrasound guided thoracentesis of right pleural effusion. Procedures Radiology Radiology US Procedures: 08859 Thoracentesis
[2024-07-14] MEDS: 0.9% Normal Saline (1000mL) 1,000 ML 15 ML IV (15:28)
--- NOTE | 2024-07-14 15:35 | PCM.PRE.AN2 ---
ASA Classification* ASA Classification ASA Classification: 4 Assessment & Plan Anesthesia* Anesthesia Assessment Anesthesia Assessment: Discussed sedation and/or anesthesia options, risks, benefits, and alternatives with patient/parents/legal guardian/POA. Questions invited. The patient/parents/legal guardian/POA seems to understand and agrees to proceed with anesthesia plan. Reviewed the physical assessment, medical history, allergy history and patient home medications list prior to surgery/procedure/anesthetic and documented any changes. Performed airway and anesthesia risk assessments. Anesthesia Type Anesthesia Type: MAC History Source History Obtained from:: Patient and Chart Anesthesia Focused Assessment* Temperature: 98.1 F Pulse Rate: 84 Blood Pressure: 118/72 Respiratory Rate: 18 Pulse Ox: 100 Oxygen Delivery Method: Room Air Airway Assessment Mouth opens: >3 cm Mallampati Score: III Teeth Condition: Caps/Crowns (Multiple Crowns. All of Them Are Tight.) Neck Range of motion (ROM): Limited ROM (Slight decrease in extension) Focused Labs Anesthesia Preop lab: CBC WBC 5.4 K/mm3 (4.4-11.0) 07/14/24 05:20 RBC 2.86 M/mm3 (4.6-6.2) L 07/14/24 05:20 Hgb 8.0 g/dL (13.0-16.5) L 07/14/24 05:20 Hct 25.3 % (40-54) L 07/14/24 05:20 Plt Count 145 K/mm3 (150-450) L 07/14/24 05:20 CHEMISTRY Potassium 4.7 mmol/L (3.5-5.1) 07/14/24 05:20 Sodium 138 mmol/L (136-145) 07/14/24 05:20 Magnesium 2.5 mg/dL (1.6-2.6) 07/14/24 05:20 Phosphorus 4.1 mg/dL (2.5-4.9) 07/14/24 05:20 BUN 87 mg/dL (7-18) H 07/14/24 05:20 Creatinine 2.19 mg/dL (0.70-1.30) H 07/14/24 05:20 Glucose 150 mg/dL (74-106) H 07/14/24 05:20 POC Glucose 144 mg/dL (74-106) H 07/14/24 05:25 TSH 2.28 uIU/mL (0.358-3.74) 09/11/23 10:40 COAG PT 17.2 SECONDS (11.7-14.9) H 05/21/24 01:25 Pre-Assessment Diagnosis/Proposed Procedure Planned Operative Procedure(s): Esophagogastroduodenoscopy. Anesthesia History Anesthesia History - bindery assistant: Anesthesia History - bindery assistant Hx Hospitalization Yes: ANGIOPLASTY AND CARDIAC 05/06/24 08:23 STENT 08/2023 Any Problems With Anesthesia No 05/06/24 08:23 Cholinesterase deficiency No 05/06/24 08:23 You/Your Family Experience No 05/06/24 08:23 fever (hyperthermia) with Relationship Recent Exposure to Contagious No 05/20/24 09:21 Disease Does patient have nerve No 05/21/24 02:20 stimulator Patient instructed to have device shut off --Does patient have Pacemaker or ICD? When Was Last Pacemaker Check QUESTION #4 FULL TEXT: You/Your Family Experience fever (hyperthermia) with Anesthesia Last Oral Intake Last Oral intake: Last Oral Intake NPO since Meds taken in AM with sips of water? Meds patient instructed to take am of surgery Any additional information?: Yes NPO since: 00:00 PONV PONV - bindery assistant: PONV - bindery assistant Female HX of Motion Sickness HX of N/V After Surgery Non-Smoker Duration of Surgery greater than 60 minutes Number of Risk Factors PONV Score Height & Weight Height & Weight: Anesthesia: Height & Weight Height 5 ft 11 in 07/13/24 18:33 Weight: 91.1 kg 07/14/24 06:00 Body Mass Index (BMI) 28.0 07/14/24 06:00 Respiratory Assessment Respiratory Assessment - bindery assistant: Respiratory Tract Infection Hx - bindery assistant Hx Respiratory Tract Infection No 05/06/24 08:23 STOP Sleep Apnea STOP Sleep Apnea - bindery assistant: STOP Sleep Apnea - bindery assistant Hx Hypertension Yes 07/13/24 18:33 Hx Sleep Apnea No 07/13/24 18:33 CPAP BIPAP Do you snore loudly (louder No 07/13/24 18:33 than talking or can be heard Do you often feel tired/ No 07/13/24 18:33 fatigued/ sleepy during daytime? Has anyone observed you stop No 07/13/24 18:33 breathing during sleep? STOP Results Negative 07/13/24 18:33 QUESTION #5 FULL TEXT : Do you snore loudly (louder than talking or can be heard through closed doors)? Tobacco Use History Tobacco Use History - bindery assistant: Tobacco Use History - bindery assistant Tobacco Use Non-smoker 07/11/21 11:08 Smoking Status Former smoker 07/13/24 18:33 Hx Tobacco Use No 07/13/24 18:33 Years Smoking Packs Smoked per Day Smoking Cessation Date was No - quit smoking greater 07/13/24 18:33 within the last 15 years than 15 years ago Hx Smoking Cessation Date Hx Smoking Cessation No 07/13/24 18:33 Counseling Hematologic Medial History Hematologic Hx - bindery assistant: Hematologic Medical Hx - copy chaser Hx of Blood Transfusion Yes 07/13/24 18:33 Hx of Transfusion in last 3 Yes 07/13/24 18:33 Months Date of Last Transfusion (if 07/13/24 07/13/24 18:33 within last 3 months) Ever experience any problems No 07/13/24 18:33 with transfusion(s)? Specify any problems Hx of Preganancy in last 3 N/A 07/13/24 18:33 Months Nurse Filling Out Transfusion [facility] 07/13/24 18:33 & Questions: Date: 07/13/24 07/13/24 18:33 Time: 18:37 07/13/24 18:33 Patient unable to answer at this time (ie. confused, unrespo /Reproduction History /Reproductive History - bindery assistant: /Reproductive Hx- bindery assistant Hx Now Gestational Age (in weeks): EDC: Hx Hx Para Hx Section SAB No 05/06/24 08:23 Active Medications Active Medications: Current Medications Generic Name Dose Route Start Last Admin Trade Name Freq PRN Reason Stop Dose Admin Acetaminophen 650 mg 07/13/24 18:31 Acetaminophen 325 Mg Tablet PO Q6H PRN PRN Pain 1-10 Or Fever>100.7 Ferrous Sulfate 325 mg 07/13/24 22:00 07/14/24 08:17 Ferrous Sulfate 325 Mg Tablet PO 325 mg BIDCM NIRAV Administration Glucagon 1 mg 07/13/24 18:31 Glucagon 1 Mg/Ml Syringe IM X1 PRN HYPOGLYCEMIA Protocol Dextrose 250 mls @ 0 mls/hr 07/13/24 18:31 Dextrose 10%-Water IV .Q0M PRN HYPOGLYCEMIA Protocol As Directed Sodium Chloride 250 mls @ 15 mls/hr 07/13/24 19:48 IV .[id number] PRN Additional IVPB Infusion Sodium Chloride 250 mls @ 15 mls/hr 07/13/24 19:48 IV .[id number] PRN Saline Flush Pantoprazole Sodium 80 mg/ 100 mls @ 10 mls/hr 07/14/24 01:40 07/14/24 13:02 Sodium Chloride CONT INF 10 mls/hr Q10H NIRAV Administration Sodium Chloride 1,000 mls @ 15 mls/hr 07/14/24 15:30 07/14/24 15:28 IV 15 mls/hr .Q48H NIRAV Administration Insulin Glargine 20 unit 07/14/24 10:00 07/14/24 08:25 Insulin Glargine-Yfgn 100 Unit/Ml Pen SC Not Given DAILY NIRAV Insulin Human Lispro 0 unit 07/13/24 18:31 07/14/24 13:19 Insulin Lispro 100 Unit/Ml Insuln.Pen SC Not Given Q6 NIRAV Protocol Ondansetron HCl 4 mg 07/13/24 18:31 Ondansetron 4 Mg/2 Ml Vial IV Q8H PRN PRN NAUSEA/VOMITING Senna/Docusate Sodium 2 tablet 07/13/24 18:31 Senna/Docusate Sodium 1 Tablet PO BID PRN Constipation Sodium Chloride 10 - 40 ml 07/13/24 19:48 07/14/24 00:59 0.9% Saline Lock 10 Ml Syringe IV 30 ml UD PRN Administration SALINE FLUSH PFSH Medical History (Updated 07/14/24 @ 11:[address] Antonio Leon MD) Alcohol use Thyroid nodule Insulin dependent diabetes mellitus Diabetes History of renal disease Dietary restriction History of stress test Wears glasses Wears partial dentures Gout Low iron Shortness of breath on exertion Former smoker History of echocardiogram Cardiology follow-up encounter History of heart attack Acute on chronic diastolic (congestive) heart failure Non-rheumatic mitral regurgitation Essential (primary) hypertension Diabetes mellitus type II, controlled Hyperlipidemia Atherosclerotic 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[place] coronary artery without angina pectoris (09/06/23) Ischemic cardiomyopathy Occlusion and stenosis of right carotid artery Home Medications ?Medication ?Instructions ?Recorded ?Last Taken ?Type amlodipine 10 mg tablet 10 mg PO DAILY BLOOD PRESSURE #90 07/11/21 09/03/23 Rx tabs cyanocobalamin (vitamin B-12) 1,000 mcg subcut QMONTH SUPPLEMENT 07/10/22 09/11/22 History 1,000 mcg/mL injection kit multivitamin 1 tab PO DAILY SUPPLEMENT 07/23/23 09/02/23 History aspirin 81 mg tablet,delayed 81 mg PO DAILY HEART HEALTH 30 09/07/23 05/19/24 Rx release days #30 tabs atorvastatin 40 mg tablet 40 mg PO QHS CHOLESTEROL 30 days 09/07/23 Unknown Rx #30 tabs furosemide 40 mg tablet 40 mg PO DAILY FLUID 10/02/23 Unknown History empagliflozin 25 mg tablet 25 mg PO DAILY DIABETES 01/20/24 Unknown History (Jardiance) insulin aspart U-100 100 unit/mL 18 unit subcut TIDCM DIABETES 03/12/24 Unknown History (3 mL) subcutaneous pen insulin glargine 100 unit/mL (3 40 unit subcut DAILY DIABETES 03/12/24 Unknown History mL) subcutaneous pen clopidogrel 75 mg tablet (Plavix) 75 mg PO QDAY BLOOD THINNER #90 04/06/24 05/19/24 Rx tabs ferrous sulfate 325 mg (65 mg 325 mg PO BID IRON SUPPLEMENT 06/09/24 Unknown History iron) tablet ferrous sulfate 325 mg (65 mg 325 mg PO DAILY Anemia 06/16/24 07/14/24 History iron) tablet Allergy/AdvReac Type Severity Reaction Status Date / Time doxycycline Allergy hives Verified 07/13/24 14:20 Iodinated Contrast Media AdvReac Severe unresponsiv Verified 07/13/24 14:20 (contrast dye - iodinated) e Family History Father CAD (coronary artery disease) Hx CABG x4 vessels Myocardial infarction, Onset Age: 50 Mother Breast cancer Other Acute on chronic diastolic (congestive) heart failure Surgical History History of thoracentesis History of coronary artery stent placement Hx of colonoscopy History of left heart catheterization (09/22/18) History of mitral valve replacement with bioprosthetic valve (09/26/18) History of coronary artery stent placement (09/06/23) Social History Smoking Status: Former smoker how long ago did patient quit smokin alcohol intake: current Alcohol type: beer substance use type: does not use caffeine: Yes Type: coffee what type of physical activity do you participate in: other details: occasional rowing machine, biking frequency: other details: occasional rowing machine, biking duration: other details: occasional rowing machine, biking seatbelt use: always do you feel safe at home: Yes Review of Systems (Anesthesia) ROS Narrative System reviewed and no additional complaints, except as documented.
--- NOTE | 2024-07-14 15:45 | EGD_PTH ---
PATIENT: LOVE PHELAN LOC: [facility] U#:[id number] AGE/SX: 79/M ROOM: [facility]07 RE07/13/[address]: Dr. Raimundo Colin MD : 1945 BED: 1 DIS: 07/16/2024 SPEC #: [id number] RECD: 07/14/24 17:56 STATUS: UMANG REMoi #: [id number] JOSÉ MIGUEL: 07/14/24 15:[address]: Pop Noguera DEPT: SURGICAL PATHOLOGY RECD BY: Lidia Ramirez ENTERED: 07/15/24 14:05 SP TYPE: EGD BIOPSY JONG DR: MD Dr. Nathalie Alston DO Dr. Prakash Chand, MD Rachel Edgar, KEYBOARD INSTRUMENT TUNER-C Tissues: Gastric mucous membrane Procedures: Surgery Specimen Level IV HEADER OPERATION: EGD PRE-OP DIAGNOSIS: GI bleed TISSUE SUBMITTED: Gastric body biopsy MICROSCOPIC DIAGNOSIS Gastric body, biopsy: Mild gastritis. See microscopic description and comment. Joel 07/16/2024 COMMENT The results of immunohistochemistry for Helicobacter pylori will be reported separately ([id number]). MICROSCOPIC DESCRIPTION Slides are reviewed. The specimen shows fragments of gastric mucosa with chronic inflammatory cell infiltrates in the lamina propria consisting of lymphocytes and plasma cells, consistent with mild chronic gastritis. GROSS DESCRIPTION Received in fixative is one container labeled with the patient's name and designated Gastric body biopsy. The specimen consists of two irregular fragments of light soliz soft tissue that in aggregate measure 0.8 x 0.5 x 0.1 cm. The specimen is totally submitted in one cassette. 07/15/2024 TC:3 CPT:03578
--- NOTE | 2024-07-14 15:45 | IMM_PTH ---
PATIENT: LOVE PHELAN LOC: ICU U#:[id number] AGE/SX: 79/M ROOM: ICU07 RE07/13/[address]: Dr. Raimundo Colin MD : 1945 BED: 1 DIS: 07/16/2024 SPEC #: [id number] RECD: 07/15/24 09:00 STATUS: UMANG REQ #: [id number] JOSÉ MIGUEL: 07/14/24 15:[address]: Pop Noguera DEPT: IMMUNOHISTOCHEMISTRY RECD BY: Nigel Bragg ENTERED: 07/15/24 09:01 SP TYPE: IMMUNO OTHR DR: MD Dr. Nathalie Alston DO Dr. Prakash Chand, MD Rachel Edgar, PRODUCTION ENGINEER TRACK-C Tissues: Gastric mucous membrane Procedures: H Pylori (initial) PHYSICIAN & INSTITUTION [place] [id number] SPECIMEN INFORMATION: Tissue Source: Gastric body biopsy Clinical Info: GI bleed Specimen Number: [id number] CPT code: 56144 METHODOLOGY: Deparaffinized sections of prefer/formalin-fixed tissue or PAP/DQ stained slides are incubated with monoclonal/polyclonal antibodies/oligonucleotide probes. Localization is made via biotin free immunoperoxidase method. Appropriate controls are performed and reacted as expected. Results on target cell population are indicated in the following table: RESULTS: ANTIBODY / CLONE RESULT H Pylori (polyclonal) negative These tests were developed and their performance characteristics determined by [facility]. They may not have been cleared or approved by the U.S. Food and Drug Administration. The FDA has determined that such clearance or approval is not necessary. The above immunohistochemical/dualISH markers are ordered and reviewed by the Pathologist. INTERPRETATION: Gastric body, biopsy: Negative for Helicobacter pylori organisms. 07/16/2024
--- NOTE | 2024-07-14 15:49 | EX.PCM.CON.G ---
HPI Consult Data Date of Consult: 07/14/24 HPI Narrative Reason for Consultation: GI bleed HPI Narrative: LOVE PHELAN, is a 79 M who presented to the emergency department at [facility] after being sent here by his PCP for anemia. The patient indicated he has been feeling weaker over the last week or so with some intermittent lightheadedness when he exerts himself and a few near syncopal events but no true syncopal events. He is also had dyspnea with exertion and reports that his stools have been black for about a month now however he has been on iron since April. He denies any true melena or hematochezia and has had no vomiting with only intermittent nausea. He is on aspirin and Plavix and had a drug-eluting stent placed in August 2023. He also had a right carotid endarterectomy in April 2024. Patient reports that he thought his hemoglobin done at the [place] 2 days ago was 11 and now it is down to 6.7 however he is unsure exactly that that was the number. We do have a hemoglobin here done on 06/16/2024 at which time it was 9.6. He denies any true chest pain but does report some right shoulder pain that has been worsening with exertion however now it is constant. [facility] Medical History (Updated 07/14/24 @ 11:[address] Antonio Leon MD) Alcohol use Thyroid nodule Insulin dependent diabetes mellitus Diabetes History of renal disease Dietary restriction History of stress test Wears glasses Wears partial dentures Gout Low iron Shortness of breath on exertion Former smoker History of echocardiogram Cardiology follow-up encounter History of heart attack Acute on chronic diastolic (congestive) heart failure Non-rheumatic mitral regurgitation Essential (primary) hypertension Diabetes mellitus type II, controlled Hyperlipidemia Atherosclerotic 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[place] coronary artery without angina pectoris (09/06/23) Ischemic cardiomyopathy Occlusion and stenosis of right carotid artery Home Medications ?Medication ?Instructions ?Recorded ?Last Taken ?Type amlodipine 10 mg tablet 10 mg PO DAILY BLOOD PRESSURE #90 07/11/21 09/03/23 Rx tabs cyanocobalamin (vitamin B-12) 1,000 mcg subcut QMONTH SUPPLEMENT 07/10/22 09/11/22 History 1,000 mcg/mL injection kit multivitamin 1 tab PO DAILY SUPPLEMENT 07/23/23 09/02/23 History aspirin 81 mg tablet,delayed 81 mg PO DAILY HEART HEALTH 30 09/07/23 05/19/24 Rx release days #30 tabs atorvastatin 40 mg tablet 40 mg PO QHS CHOLESTEROL 30 days 09/07/23 Unknown Rx #30 tabs furosemide 40 mg tablet 40 mg PO DAILY FLUID 10/02/23 Unknown History empagliflozin 25 mg tablet 25 mg PO DAILY DIABETES 01/20/24 Unknown History (Jardiance) insulin aspart U-100 100 unit/mL 18 unit subcut TIDCM DIABETES 03/12/24 Unknown History (3 mL) subcutaneous pen insulin glargine 100 unit/mL (3 40 unit subcut DAILY DIABETES 03/12/24 Unknown History mL) subcutaneous pen clopidogrel 75 mg tablet (Plavix) 75 mg PO QDAY BLOOD THINNER #90 04/06/24 05/19/24 Rx tabs ferrous sulfate 325 mg (65 mg 325 mg PO BID IRON SUPPLEMENT 06/09/24 Unknown History iron) tablet ferrous sulfate 325 mg (65 mg 325 mg PO DAILY Anemia 06/16/24 07/14/24 History iron) tablet Allergy/AdvReac Type Severity Reaction Status Date / Time doxycycline Allergy hives Verified 07/13/24 14:20 Iodinated Contrast Media AdvReac Severe unresponsiv Verified 07/13/24 14:20 (contrast dye - iodinated) e Family History Father CAD (coronary artery disease) Hx CABG x4 vessels Myocardial infarction, Onset Age: 50 Mother Breast cancer Other Acute on chronic diastolic (congestive) heart failure Surgical History History of thoracentesis History of coronary artery stent placement Hx of colonoscopy History of left heart catheterization (09/22/18) History of mitral valve replacement with bioprosthetic valve (09/26/18) History of coronary artery stent placement (09/06/23) Social History Smoking Status: Former smoker how long ago did patient quit smokin alcohol intake: current Alcohol type: beer substance use type: does not use caffeine: Yes Type: coffee what type of physical activity do you participate in: other details: occasional rowing machine, biking frequency: other details: occasional rowing machine, biking duration: other details: occasional rowing machine, biking seatbelt use: always do you feel safe at home: Yes ROS Constitutional Constitutional: Reports fatigue, malaise and weakness; Denies anorexia, change in weight, chills, fever(s), night sweats or other Eyes Eyes: Denies blurry vision, change in eye color, change in vision, discharge from eye(s), double vision, erythema, eye pain, loss of vision or other ENT HEENT: Denies abnormal hearing, dysphagia, ear pain, epistaxis, headache(s), hearing loss, nasal congestion, nasal discharge, post nasal drip, sinus pressure, sore throat or other Cardiovascular Cardiovascular: Reports dyspnea on exertion, lightheadedness and other Details: Presyncope ; Denies chest pain, claudication, edema, orthopnea, palpitations, paroxysmal nocturnal dyspnea, rapid heart rate or syncope Respiratory/Chest Respiratory/Chest: Denies cough, dyspnea, excessive phlegm production, hemoptysis, productive cough, shortness of breath at rest, shortness of breath with exertion, wheezing or other Gastrointestinal Gastrointestinal: Denies abdominal pain, coffee ground emesis, constipation, diarrhea, dyspepsia, hematemesis, hematochezia, loose stools, melena, nausea, vomiting or other Genitourinary Genitourinary: Denies burning urination, difficulty urinating, dysuria, hematuria, nocturia, urinary frequency, urinary hesitancy, urinary incontinence, urinary urgency or other Musculoskeletal Musculoskeletal: Reports joint pain and joint stiffness; Denies arthralgias, back pain, joint swelling, myalgias, neck pain or other Neurologic Neurologic: Denies abnormal gait, abnormal speech, confusion, disequilibrium, dizziness, focal weakness, headache(s), numbness, paresthesias, seizure-like activity, seizures, syncope, tingling, tremor(s) or other Psychiatric Psychiatric: Denies anxiety, depression, homicidal ideation, suicidal ideation or other Endocrine Endocrinology: Denies change in body appearance, cold intolerance, excessive sweating, heat intolerance, polydipsia, polyuria or other Hematologic/Lymphatic Hematologic/Lymphatic: Denies anemia, easy bleeding, easy bruising, lymphadenopathy or other Allergic/Immunologic Allergic/Immunologic: Denies rhinitis, hives, eczemia, asthma or other Physical Exam Narrative Seen and examined. Patient will be going for EGD today. Also right-sided thoracocentesis scheduled for today. Overall feeling better than yesterday. Physical exam General: Alert, Oriented x3, Cooperative, fatigue HEENT: Atraumatic, PERRLA, EOMI, Normocephalic Oral: No Gingival or Mucosal Lesions/ Ulcerations Neck: Supple, No JVD, Negative Carotid Bruits Chest wall/Lungs: Air entry severely diminished on right lung base, moderate to severe right pleural effusion. No crepitation Cardiovascular: R Sinus hythm, Normal S1, Normal S2, subtle systolic murmur over cardiac Abdomen: Bowel Sounds Present, Soft, Non Tender, Non-Distended : No dysuria. No renal angle tenderness. No suprapubic tenderness. Extremities: Mild bilateral pittingedema, Capillary Refill Less than 3 Seconds Skin: No rashes, No breakdown Musculoskeletal: No Tenderness to Palpation of Joints or Extremities Neurological: Cranial nerves II-XII grossly intact, DTR 2+/4. No acute focal neurological deficit. Psych/Mental Status: Normal Affect, Appropriate. Lab / Micro Data 07/14/24 05:20 07/14/24 05:20 Labs: Laboratory Results - last 24 hr 07/13/24 14:42: Crossmatch See Detail 07/13/24 14:42: Crossmatch See Detail 07/13/24 15:20: Troponin I High Sens 2651 H* 07/13/24 18:45: Hgb 7.8 L, Hct 25.1 L, Troponin I High Sens [id number] H* 07/13/24 20:08: POC Glucose 145 H 07/13/24 21:10: Hgb 8.2 L, Hct 26.2 L 07/13/24 21:30: Troponin I High Sens [id number] H* 07/14/24 00:55: POC Glucose 155 H 07/14/24 01:05: Troponin I High Sens [id number] H* 07/14/24 05:20: WBC 5.4, RBC 2.86 L, Hgb 8.0 L, Hct 25.3 L, MCV 88.5, MCH 28.0, MCHC 31.6 L D, RDW Std Deviation 56.3 H, RDW Coeff of Ngoc 18.0 H, Plt Count 145 L, MPV 10.3, Immature Gran % (Auto) 0.600, Neut % (Auto) 78.1 H, Lymph % (Auto) 10.0 L, [place] % (Auto) 8.9, Eos % (Auto) 1.7, Baso % (Auto) 0.7, Absolute Neuts (auto) 4.2, Absolute Lymphs (auto) 0.54 L, Nucleated RBC % 0, Sodium 138, Potassium 4.7, Chloride 108 H, Carbon Dioxide 23.0, Anion Gap 7, BUN 87 H, Creatinine 2.19 H, Estim Creat Clear Calc 32.91, Est GFR (MDRD) Af Amer 38 L, Est GFR (MDRD) Non-Af 31 L, BUN/Creatinine Ratio 39.7 H, Glucose 150 H, Calcium 8.7, Phosphorus 4.1, Magnesium 2.5, Total Bilirubin 0.60, AST 59 H, ALT 21, Alkaline Phosphatase 86, Lactate Dehydrogenase 308 H, Total Protein 6.8, Albumin 3.1 L, Globulin 3.7, Albumin/Globulin Ratio 0.8 L 07/14/24 05:25: POC Glucose 144 H Micro: Microbiology 07/13/24 14:54 Stool Stool Occult Blood (DIEGO) - Final Occult Blood Positive Rhythm Strip Rhythm Strip: Sinus Rhythm Rate: 82 Ectopy: None Imaging Radiology Impression Echocardiogram 07/13/24 16:17 Interpretation Summary Mildly dilated left ventricle. Generalized hypokinesis. Severe hypokinesis of the anterior wall. Estimated LVEF 30%. The left atrium is severely enlarged. The right atrium is mildly enlarged. Bioprosthetic mitral valve mean peak gradient 11.2 mmHg. Ordering Physician: Nathalie Goddard Performed By: Isabella Bueno RDCS Chest X-Ray 07/14/24 15:05 IMPRESSION: Status post right thoracentesis. No evidence of pneumothorax. Residual pleural parenchymal changes at the right lung base. Electronically Signed: Amarjit Cruz MD at 15:15 EDT , Assessment & Plan Assessment/Plan (1) Acute non-ST elevation myocardial infarction (NSTEMI): (2) Acute upper gastrointestinal bleeding: (3) ABLA (acute blood loss anemia): PLAN: Plan 79-year-old gentleman with multiple comorbidities was admitted for acute blood loss anemia on iron supplement with history of chronic anemia Patient stated he had anemia and bleed after the carotid surgery/CVA in April 2024 and had cardiac resuscitation with CPR. Acute blood loss anemia on chronic anemia -Continue home iron supplementation -Transfused 2 units of packed red blood cells -Baseline hemoglobin has been running between 9 and 10 -Hemoglobin 6.7 on presentation -Check every 6 hour hemoglobin after transfusion -Placed 2 units on hold -Highly suspect upper GI bleed with positive guaiac stool -Protonix bolus and drip started -Hold aspirin and Plavix per discussion with cardiology -Patient will undergo an upper endoscopy to evaluate his upper GI tract. He was explained alternatives, risk, benefits including outstanding bleeding, infection, sepsis, perforation, need for emergent surgery . He will have an ASA of 3. Suspected upper GI bleed -Hold aspirin and Plavix as noted above per discussion with cardiology -Protonix bolus and drip Charges/Coding Visit Charges Inpatient E&M: 67286 Init Hosp L3
--- NOTE | 2024-07-14 16:16 | PCM.POST.ANE ---
Anesthesia: Postop Eval I Current Vital Signs Temperature: 97.6 F Pulse Rate: 82 Blood Pressure: 87/46 Respiratory Rate: 16 Pulse Ox: 100 Oxygen Delivery Method: Room Air Assessment Airway patent: Yes Spontaneous unlabored respirations: Yes Mental status: Awake and Calm nausea: No Vomiting: No Anesthesia Complication: No Fluid Hydration Crystalloid volume administer (ml): 200 Total IV fluid infused: 200 Progress Note Anesthesia document: Postop Eval 1 completed: Yes
--- NOTE | 2024-07-14 16:19 | OP.CCLET_ITS ---
07/14/2024 Apryl Rahman Re : Upper GI endoscopy procedure for Jimi Degroot Dear Prosper This procedure was performed on Sunday, July 14, 2024. My impressions and recommendations are as follows: Impressions : - Grade I esophageal varices. - Portal hypertensive gastropathy. Biopsied. 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 - Non-bleeding gastric ulcers with no stigmata of bleeding. - No gross lesions in the first portion of the duodenum. - Chronic liver disease workup Recommendations : - [facility]. - Resume regular diet. - Continue present medications. - Await pathology results. - Use Protonix (pantoprazole) 40 mg PO BID. My findings are described in the full procedure note, which is enclosed. If I can be of further assistance, please feel free to contact me at . Sincerely, Pop Noguera, 07/14/2024 4:18:48 PM This report has been signed electronically.
--- NOTE | 2024-07-14 16:19 | OP.EGD_ITS ---
Patient Name: Jimi Degroot Procedure Date: 07/14/2024 3:49 PM Date of : 1945 Age: 79 Procedure: Upper GI endoscopy Indications: Iron deficiency anemia, Melena Providers: Pop Noguera DO Medicines: Monitored Anesthesia Care Patient Profile: This is a 79 year old male. Refer to note in patient chart for documentation of history and physical. Patient has symptoms. Complications: No immediate complications. Procedure: Pre-Anesthesia Assessment: - Prior to the procedure, a History and Physical was performed, and patient medications and allergies were reviewed. The patient is competent. The risks and benefits of the procedure and the sedation options and risks were discussed with the patient. All questions were answered and informed consent was obtained. Patient identification and proposed procedure were verified by the physician in the pre-procedure area. Mental Status Examination: alert and oriented. Airway Examination: normal oropharyngeal airway and neck mobility. Respiratory Examination: clear to auscultation. CV Examination: normal. Prophylactic Antibiotics: The patient does not require prophylactic antibiotics. Prior Anticoagulants: The patient has taken no anticoagulant or antiplatelet agents except for NSAID medication. ASA Grade Assessment: IV - A patient with severe systemic disease that is a constant threat to life. After reviewing the risks and benefits, the patient was deemed in satisfactory condition to undergo the procedure. The anesthesia plan was to use monitored anesthesia care (MAC). Immediately prior to administration of medications, the patient was re-assessed for adequacy to receive sedatives. The heart rate, respiratory rate, oxygen saturations, blood pressure, adequacy of pulmonary ventilation, and response to care were monitored throughout the procedure. The physical status of the patient was re-assessed after the procedure. After obtaining informed consent, the endoscope was passed under direct vision. Throughout the procedure, the patient's blood pressure, pulse, and oxygen saturations were monitored continuously. The Endoscope was introduced through the mouth, and advanced to the second part of duodenum. The upper GI endoscopy was accomplished without difficulty. The patient tolerated the procedure well. Scope In: 4:01:03 PM Scope Out: 4:05:59 PM Total Procedure Duration Time 0 hours 4 minutes 56 seconds Findings: Grade I varices were found in the lower third of the esophagus. They were 5 mm in largest diameter. Moderate portal hypertensive gastropathy was found in the entire examined stomach. Biopsies were taken with a cold forceps for histology. Verification of patient identification for the specimen was done. Estimated blood loss was minimal. Biopsies were taken with a cold forceps for Helicobacter pylori testing. Verification of patient identification for the specimen was done. Estimated blood loss was minimal. Type 1 isolated gastric varices (IGV1, varices located in the fundus) with no bleeding were found in the cardia. There were no stigmata of recent bleeding. They were 5 mm in largest diameter. Many non-bleeding superficial gastric ulcers with no stigmata of bleeding were found in the gastric body. The largest lesion was 3 mm in largest dimension. No gross lesions were noted in the first portion of the duodenum. Impression: - Grade I esophageal varices. - Portal hypertensive gastropathy. Biopsied. 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 - Non-bleeding gastric ulcers with no stigmata of bleeding. - No gross lesions in the first portion of the duodenum. - Chronic liver disease workup Recommendation: - [facility]. - Resume regular diet. - Continue present medications. - Await pathology results. - Use Protonix (pantoprazole) 40 mg PO BID. Procedure Code(s): --- Professional --- 47437, Esophagogastroduodenoscopy, flexible, transoral; with biopsy, single or multiple CPT copyright 2021 [employer]. All rights reserved. The codes documented in this report are preliminary and upon desktop publisher review may be revised to meet current compliance requirements. Pop Noguera DO 07/14/2024 4:18:48 PM This report has been signed electronically. Number of Addenda: 0 Note Initiated On: 07/14/2024 3:49 PM
[2024-07-14 16:28] LABS: Body Fluid Mononuclear WBC # 0.631 10^3/uL; Body Fluid Mononuclear WBC % 98.4 %; Body Fluid Polynuclear WBC % 1.6 %; Body Fluid Total Cells Counted 0.669 10^3/ul; Red Cell Count/Body Fluid 0.049 10^6/ul; White Blood Count/Body Fluid 0.641 10^3/uL
[2024-07-14 17:43] LABS: Lymphocytes 84 %; Macrophages 6 %; Monocytes 6 %; Neutrophil (Segs) 1 %
[2024-07-14 17:44] LABS: Appearance/Body Fluid CLOUDY; Auto B Fluid Analyzer BKGD Ct COUNTS W/IN LIMITS (W/IN LIMITS); Color/Body Fluid RED; Mesothelial Cells 3 %; Source- Body Fluid THORACENTESIS
--- NOTE | 2024-07-14 17:47 | POSTOPAN2_ITS ---
Anesthesia Postop Eval I Sum Postop Eval Completion status Anesthesia document: Postop Eval 1 completed: Yes Anesthesia Postop Eval I Summary Anesthesia Postop Eval I Summary: Anesthesia Postop Eval I: Assessment Summary Airway patent Yes 07/14/24 16:16 NEWSPAPER MANAGING EDITOR.[email or web address] Spontaneous unlabored Yes 07/14/24 16:16 NEWSPAPER MANAGING EDITOR.RAMESHU respirations Mental status Awake,Calm 07/14/24 16:16 NEWSPAPER MANAGING EDITOR.[email or web address] nausea No 07/14/24 16:16 NEWSPAPER MANAGING EDITOR.[email or web address] Vomiting No 07/14/24 16:16 NEWSPAPER MANAGING EDITOR.MARYCARMENLOU Anesthesia Postop Eval I: Fluid Summary Crystalloid volume administer 200 07/14/24 16:16 NEWSPAPER MANAGING EDITOR.MARYCARMENLOU (ml) Colloids volume administered ( ml) Blood Product volume administered (ml) Total IV fluid infused 200 07/14/24 16:16 NEWSPAPER MANAGING EDITOR.MARYCARMENLOU Anesthesia Postop Eval I: Summary Notes Anesthesia Complication No 07/14/24 16:16 NEWSPAPER MANAGING EDITOR.RUTH Anesthesia Complication Comment: Post-operative progress note Anesthesia: Postop Eval II Evaluation Mental status: Awake and Calm Pain Level: 0 nausea: No Vomiting: No Complications Anesthesia Complication: No
--- NOTE | 2024-07-14 17:47 | PCM.POSTANE2 ---
Anesthesia Postop Eval I Sum Postop Eval Completion status Anesthesia document: Postop Eval 1 completed: Yes Anesthesia Postop Eval I Summary Anesthesia Postop Eval I Summary: Anesthesia Postop Eval I: Assessment Summary Airway patent Yes 07/14/24 16:16 COLOR SHOP HELPER.[email or web address] Spontaneous unlabored Yes 07/14/24 16:16 COLOR SHOP HELPER.RAMESHU respirations Mental status Awake,Calm 07/14/24 16:16 COLOR SHOP HELPER.[email or web address] nausea No 07/14/24 16:16 COLOR SHOP HELPER.[email or web address] Vomiting No 07/14/24 16:16 COLOR SHOP HELPER.[email or web address] Anesthesia Postop Eval I: Fluid Summary Crystalloid volume administer 200 07/14/24 16:16 COLOR SHOP HELPER.[email or web address] (ml) Colloids volume administered ( ml) Blood Product volume administered (ml) Total IV fluid infused 200 07/14/24 16:16 COLOR SHOP HELPER.[email or web address] Anesthesia Postop Eval I: Summary Notes Anesthesia Complication No 07/14/24 16:16 COLOR SHOP HELPER.RUTH Anesthesia Complication Comment: Post-operative progress note Anesthesia: Postop Eval II Evaluation Mental status: Awake and Calm Pain Level: 0 nausea: No Vomiting: No Complications Anesthesia Complication: No
[2024-07-14 17:48] LABS: Body Fluid QC Type(s) BF2Q
[2024-07-14 17:57] LABS: Bedside Glucose 152 mg/dL (74-106)
[2024-07-14] MEDS: Pantoprazole Sodium 40 MG Tablet PO (21:06)
[2024-07-14 21:29] LABS: Glucose, Body Fluid 155 mg/dL (40-70); LDH,Body Fluid 94 Units/L (Not Establ.); Protein, Body Fluid 3.6 g/dL (Not Establ.)
[2024-07-14 21:59] LABS: Bedside Glucose 206 mg/dL (74-106)
[2024-07-15] VITALS (14 sets, daily range): BP systolic 99–129; BP diastolic 47–60; PULSE 70–85; RESP 14–19; TEMP 36.1–36.6; O2SAT 95–100
[2024-07-15] MEDS: 0.9% Saline Lock 10 ML Syringe IV (03:38)
[2024-07-15 03:45] LABS: Absolute Lymphocyte Count 0.47 X10^3/uL (0.83-4.51); Absolute Neutrophil Count 4.6 X10^3/uL (2.0-7.7); Basophil# 0.04 X10^3/uL; Basophil% 0.7 % (0-1); Eosinophil# 0.13 X10^3/uL; Eosinophils% 2.3 % (0-5); Hematocrit 25.5 % (40-54); Hemoglobin 7.7 g/dL (13.0-16.5); Lymphocyte # 0.47 X10^3/ul (0.83-4.51); Lymphocyte % 8.2 % (19-41); Mean Corp Hgb Conc 30.2 g/dL (32-36); Mean Corpuscular Hgb 27.2 pg (27.0-32.0); Mean Corpuscular Volume 90.1 fL (80-94); Monocyte# 0.51 X10^3/uL; Monocyte% 8.9 % (0-10); NRBC Flagged by Analyzer 0 % (0-5); Neutrophil # 4.56 X10^3/uL (2.7-7.7); Neutrophil % 79.2 % (47-70); POSITIVE DIFFERENTIAL YES; Platelet Count 155 K/mm3 (150-450); RBC Distribution Width SD 60.1 fl (35.1-43.9); Red Blood Count 2.83 M/mm3 (4.6-6.2); White Blood Count 5.8 K/mm3 (4.4-11.0)
[2024-07-15 03:57] LABS: Bedside Glucose 136 mg/dL (74-106)
[2024-07-15 04:01] LABS: ALB/GLOB Ratio 0.8 RATIO (0.9-2.4); AST(SGOT) 38 U/L (15-37); Alanine Aminotransfer ALT/SGPT 22 U/L (16-61); Albumin, Serum 2.9 g/dL (3.2-5.0); Alkaline Phosphatase 83 U/L (45-117); Anion Gap 6 (5-15); BUN 84 mg/dL (7-18); BUN/Creat Ratio 36.2 RATIO (10-20); Calcium,Total 8.6 mg/dL (8.5-10.1); Chloride 110 mmol/L (98-107); Creatinine, Serum 2.32 mg/dL (0.70-1.30); EST Glomerular Filtration Rate 29 mL/min (>60); Est Glom Filt Rate - Afr Amer 35 mL/min (>60); Estimated Creatinine Clearance 30.78 ml/min; Globulin 3.8 g/dL (2.2-4.2); Glucose 148 mg/dL (74-106); Potassium 4.8 mmol/L (3.5-5.1); Protein, Total 6.7 g/dL (6.4-8.2); Sodium Level 139 mmol/L (136-145)
--- NOTE | 2024-07-15 07:50 | PN.HOSP_ITS ---
Reason for Visit Reason for Visit: Diagnoses Acute posthemorrhagic anemia (07/13/24) Type 2 diabetes mellitus without complications (07/13/24) Non-ST elevation (NSTEMI) myocardial infarction (07/13/24) Atherosclerotic 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[place] coronary artery without angina pectoris (07/13/24) Occlusion and stenosis of right carotid artery (07/13/24) Pleural effusion, not elsewhere classified (07/13/24) Gastrointestinal hemorrhage, unspecified (07/13/24) Objective Data Objective Data Vital Signs: Vital Signs Temp Pulse Resp BP Pulse Ox O2 Del Method O2 Flow Rate 97.9 F 70 16 99/47 L 95 Room Air 2 07/15/24 04:00 07/15/24 06:00 07/15/24 06:00 07/15/24 06:00 07/15/24 06:00 07/15/24 06:00 07/14/24 16:20 Oxygen Flow Rate (L/min) 2 Oxygen Delivery Method Room Air Weight: 200 lb 13.458 oz Body Mass Index (BMI) 28.0 Intake & Output: Intake and Output for Last 24 Hours 07/13/24 07/14/24 07/15/24 23:59 23:59 23:59 Intake Total 37 / 37 312.33 / 312.33 Output Total 825 / 1475 3700 / 3700 375 / 375 Balance -788 / -1438 -3387.67 / -3387.67 -375 / -375 Lab / Micro Data 07/15/24 03:39 07/15/24 03:39 Labs: Laboratory Results - last 24 hr 07/14/24 00:55: POC Glucose 155 H 07/14/24 14:41: Fluid Source THORACENTESIS, Fluid Color RED, Fluid Appearance CLOUDY, Fluid WBC 0.641, Fluid RBC 0.049, Fluid Tot Cell Count 0.669, Fld Polynuclear WBCs # 0.010, Fld Polynuclear WBCs % 1.6, Fluid Mononuclear WBCs 0.631, Fld Mononuclear WBCs % 98.4, Fluid Neutrophils 1, Fluid Lymphocytes 84, Fluid Monocytes 6, Fluid Macrophages 6, Fld Mesothelial Cells 3, Fl Pathologist Comment May follow, Fluid Comment 2 SEE COMMENT 07/14/24 14:44: Fluid Glucose 155 H, Fluid Total Protein 3.6, Fluid LDH 94 07/14/24 17:35: POC Glucose 152 H 07/14/24 21:38: POC Glucose 206 H 07/15/24 03:31: POC Glucose 136 H 07/15/24 03:39: WBC 5.8, RBC 2.83 L, Hgb 7.7 L, Hct 25.5 L, MCV 90.1, MCH 27.2, MCHC 30.2 L, RDW Std Deviation 60.1 H, RDW Coeff of Ngoc 19.0 H, Plt Count 155, MPV 10.0, Immature Gran % (Auto) 0.700, Neut % (Auto) 79.2 H, Lymph % (Auto) 8.2 L, [place] % (Auto) 8.9, Eos % (Auto) 2.3, Baso % (Auto) 0.7, Absolute Neuts (auto) 4.6, Absolute Lymphs (auto) 0.47 L, Nucleated RBC % 0, Sodium 139, Potassium 4.8, Chloride 110 H, Carbon Dioxide 23.0, Anion Gap 6, BUN 84 H, Creatinine 2.32 H, Estim Creat Clear Calc 30.78, Est GFR (MDRD) Af Amer 35 L, Est GFR (MDRD) Non-Af 29 L, BUN/Creatinine Ratio 36.2 H, Glucose 148 H, Calcium 8.6, Total Bilirubin 0.60, AST 38 H, ALT 22, Alkaline Phosphatase 83, Total Protein 6.7, A lbumin 2.9 L, Globulin 3.8, Albumin/Globulin Ratio 0.8 L Micro: Microbiology 07/13/24 14:54 Stool Stool Occult Blood (DIEGO) - Final Occult Blood Positive Radiography Diagnostic Testing: Radiology Impression Echocardiogram 07/13/24 16:17 Interpretation Summary Mildly dilated left ventricle. Generalized hypokinesis. Severe hypokinesis of the anterior wall. Estimated LVEF 30%. The left atrium is severely enlarged. The right atrium is mildly enlarged. Bioprosthetic mitral valve mean peak gradient 11.2 mmHg. Ordering Physician: Nathalie Goddard Performed By: Isabella Bueno, RDCS Chest X-Ray 07/14/24 15:05 IMPRESSION: Status post right thoracentesis. No evidence of pneumothorax. Residual pleural parenchymal changes at the right lung base. Electronically Signed: Amarjit Cruz MD at 15:15 EDT , Rhythm Strip Rhythm Strip: Sinus Rhythm Rate: 82 Ectopy: None Physical Exam Narrative Seen and examined. Patient will be going for EGD today. Also right-sided thoracocentesis scheduled for today. Overall feeling better than yesterday. Patient passing flatus and feels he has to go for BMP Physical exam General: Alert, Oriented x3, Cooperative, fatigue HEENT: Atraumatic, PERRLA, EOMI, Normocephalic Oral: No Gingival or Mucosal Lesions/ Ulcerations Neck: Supple, No JVD, Negative Carotid Bruits Chest wall/Lungs: Air entry on right side improved after right thoracocentesis, 1300 mL. AE decreased on lung bases with no crepitation Cardiovascular: Sinus Rhythm, Normal S1, Normal S2, subtle systolic murmur over cardiac Abdomen: Bowel Sounds Present, Soft, Non Tender, Non-Distended : No dysuria. No renal angle tenderness. No suprapubic tenderness. Extremities: Mild bilateral pitting edema, Capillary Refill Less than 3 Seconds Skin: No rashes, No breakdown Musculoskeletal: No Tenderness to Palpation of Joints or Extremities Neurological: Cranial nerves II-XII grossly intact, DTR 2+/4. No acute focal neurological deficit. Psych/Mental Status: Normal Affect, Appropriate. Assessment & Plan Assessment/Plan (1) Acute non-ST elevation myocardial infarction (NSTEMI): (2) Acute upper gastrointestinal bleeding: (3) ABLA (acute blood loss anemia): PLAN: Plan 79-year-old gentleman with multiple comorbidities was admitted for acute blood loss anemia on iron supplement with history of chronic anemia Patient stated he had anemia and bleed after the carotid surgery/CVA in April 2024 and had cardiac resuscitation with CPR. He also had thoracocentesis 2-3 times in the past. 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 1. Acute blood loss anemia with chronic anemia -Continue home iron supplementation -Hemoglobin 6.7 on admission. Transfused 2 units of packed red blood cells. Repeat H&H after 2 units 8.0/25.3%. Baseline hemoglobin has been running between 9 and 10 On PPI drip. GI consulted. Hold aspirin Plavix Plan for EGD today. Plan was discussed with patient's near the bedside. 07/15: Patient had EGD on 07/14. EGD findings discussed with the patient, his and daughter near the bedside. Overall suggestive of IGV, PHG and esophageal varices therefore will need workup increased portal hypertension. Multiple differential diagnoses were discussed including causes include perihepatic, hepatic or posthepatic portal hypertension. The patient denies history of chronic liver disease. Right upper quadrant sonogram ordered. Advised to follow-up in GI clinic Impressions : - Grade I esophageal varices. - Portal hypertensive gastropathy. Biopsied. 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 - Non-bleeding gastric ulcers with no stigmata of bleeding. - No gross lesions in the first portion of the duodenum. - Chronic liver disease workup Recommendations : - [facility]. - Resume regular diet. - Continue present medications. - Await pathology results. - Use Protonix (pantoprazole) 40 mg PO BID. Right pleural effusion -Appears to be moderate in size. Right-sided thoracocentesis ordered with fluid analysis tests as per lights criteria. 07/15: Patient had 1800 mL clear reddish fluid was drained. 100 mL was sent for collection. As per lights criteria fluid is exudative. Hide troponin-Highly suspect related to acute anemia,/demand ischemia: Patient does not have chest pain pressure or tightness. Continue to hold aspirin and Plavix due to GI bleed. Troponin went up about 40 500-10,918. -Patient has known history of cardiac disease with most recent stent placed in proximal LAD 08/2023 -Check limited echo as patient had recent echo in April 2024 as mentioned below -The case was discussed with Dr. Leon on admission CKD stage IV -Serum creatinine appears to be at baseline -Monitor creatinine closely 07/15: BUN/creatinine 84/2.23, estimated creatinine clearance 30 mL/min. BUN/creatinine ratio 36 Right carotid artery stenosis -Status post right carotid endarterectomy April 2024 -Aspirin and Plavix on hold CAD/essential hypertension/hyperlipidemia/chronic HFrEF -Continue Jardiance -Hold Lasix -Continue atorvastatin -Hold amlodipine -Hold aspirin/Plavix -Patient does not appear to be decompensated with regards to his heart failure however we will have to monitor closely with blood administration -Last echocardiogram done on 05/21/2024 at which time he was found to have an EF of 40% with stage I diastolic dysfunction and mild to moderate segmental systolic dysfunction, stable appearing bioprosthetic mitral valve apparatus DM-2 -Hold prandial insulin as patient is n.p.o. -Decrease basal insulin from 40 to 20 units as patient is n.p.o. -Continue home Jardiance History of gout -No signs of acute decompensation -Monitor DVT prophylaxis -SCDs -chemoprophylaxis contraindicated due to GI bleed CODE STATUS -Full code as verified on admission Echo in April 2024 Interpretation Summary Normal LV size. Mild concentric left ventricular hypertrophy. The left ventricular ejection fraction is 40 %. Stage 1 diastolic dysfunction. Mild to moderate segmental systolic dysfunction (see wall motion). Stable appearing bioprosthetic mitral valve apparatus. Mean transmitral valve gradient 8.7 mmHg. Clinical Impression(s) from Imaging Studies Echocardiogram 07/13/24 16:17 Interpretation Summary Mildly dilated left ventricle. Generalized hypokinesis. Severe hypokinesis of the anterior wall. Estimated LVEF 30%. The left atrium is severely enlarged. The right atrium is mildly enlarged. Bioprosthetic mitral valve mean peak gradient 11.2 mmHg. Ordering Physician: Nathalie Goddard Performed By: Isabella Bueno RDCS Chest X-Ray 07/14/24 15:05 IMPRESSION: Status post right thoracentesis. No evidence of pneumothorax. Residual pleural parenchymal changes at the right lung base. Electronically Signed: Amarjit Cruz MD at 15:15 EDT , Charges/Coding Visit Charges Inpatient E&M: 25620 Subs Hosp L3
[2024-07-15] MEDS: Ferrous Sulfate 325 MG Tablet PO ×2 (09:29→16:35)
[2024-07-15] MEDS: Insulin Glargine-YFGN 100 UNIT/ML Pen 20 UNIT SC (09:29)
[2024-07-15] MEDS: Pantoprazole Sodium 40 MG Tablet PO ×2 (09:29→21:55)
[2024-07-15] MEDS: Insulin Lispro 100 UNIT/ML INSULN.PEN SC ×3 (11:50→21:58)
--- NOTE | 2024-07-15 11:50 | PN.CARD_ITS ---
Subjective Subjective Feels improved. Denies any complaints. Objective Data Vital Signs: Vital Signs Temp Pulse Resp BP Pulse Ox O2 Del Method O2 Flow Rate 97.9 F 85 16 129/60 H 95 Room Air 2 07/15/24 04:00 07/15/24 08:00 07/15/24 06:00 07/15/24 08:00 07/15/24 09:39 07/15/24 09:39 07/14/24 16:20 Oxygen Flow Rate (L/min) 2 Oxygen Delivery Method Room Air Weight: 200 lb 13.458 oz Body Mass Index (BMI) 28.0 Intake & Output: Intake and Output for Last 24 Hours 07/13/24 07/14/24 07/15/24 23:59 23:59 23:59 Intake Total 37 / 37 312.33 / 312.33 Output Total 825 / 1475 3700 / 3700 375 / 375 Balance -788 / -1438 -3387.67 / -3387.67 -375 / -375 Lab / Micro Data 07/15/24 03:39 07/15/24 03:39 Labs: Laboratory Results - last 24 hr 07/14/24 14:41: Fluid Source THORACENTESIS, Fluid Color RED, Fluid Appearance CLOUDY, Fluid WBC 0.641, Fluid RBC 0.049, Fluid Tot Cell Count 0.669, Fld Polynuclear WBCs # 0.010, Fld Polynuclear WBCs % 1.6, Fluid Mononuclear WBCs 0.631, Fld Mononuclear WBCs % 98.4, Fluid Neutrophils 1, Fluid Lymphocytes 84, Fluid Monocytes 6, Fluid Macrophages 6, Fld Mesothelial Cells 3, Fl Pathologist Comment May follow, Fluid Comment 2 SEE COMMENT 07/14/24 14:44: Fluid Glucose 155 H, Fluid Total Protein 3.6, Fluid LDH 94 07/14/24 17:35: POC Glucose 152 H 07/14/24 21:38: POC Glucose 206 H 07/15/24 03:31: POC Glucose 136 H 07/15/24 03:39: WBC 5.8, RBC 2.83 L, Hgb 7.7 L, Hct 25.5 L, MCV 90.1, MCH 27.2, MCHC 30.2 L, RDW Std Deviation 60.1 H, RDW Coeff of Ngoc 19.0 H, Plt Count 155, MPV 10.0, Immature Gran % (Auto) 0.700, Neut % (Auto) 79.2 H, Lymph % (Auto) 8.2 L, [place] % (Auto) 8.9, Eos % (Auto) 2.3, Baso % (Auto) 0.7, Absolute Neuts (auto) 4.6, Absolute Lymphs (auto) 0.47 L, Nucleated RBC % 0, Sodium 139, Potassium 4.8, Chloride 110 H, Carbon Dioxide 23.0, Anion Gap 6, BUN 84 H, Creatinine 2.32 H, Estim Creat Clear Calc 30.78, Est GFR (MDRD) Af Amer 35 L, Est GFR (MDRD) Non-Af 29 L, BUN/Creatinine Ratio 36.2 H, Glucose 148 H, Calcium 8.6, Total Bilirubin 0.60, AST 38 H, ALT 22, Alkaline Phosphatase 83, Total Protein 6.7, A lbumin 2.9 L, Globulin 3.8, Albumin/Globulin Ratio 0.8 L Micro: Microbiology 07/14/24 14:41 Fluid - Thoracentesis Fluid Gram Stain - Final Rhythm Strip Rhythm Strip: Sinus Rhythm Rate: 82 Ectopy: None Cardiology Labs/Tests 07/15/24 03:39: WBC 5.8, RBC 2.83 L, Hgb 7.7 L, Hct 25.5 L, MCV 90.1, MCH 27.2, MCHC 30.2 L, Plt Count 155, MPV 10.0, Immature Gran % (Auto) 0.700, Neut % (Auto) 79.2 H, Lymph % (Auto) 8.2 L, [place] % (Auto) 8.9, Eos % (Auto) 2.3, Baso % (Auto) 0.7, Absolute Neuts (auto) 4.6, Nucleated RBC % 0, Sodium 139, Potassium 4.8, Chloride 110 H, Carbon Dioxide 23.0, Anion Gap 6, BUN 84 H, Creatinine 2.32 H, Est GFR (MDRD) Af Amer 35 L, Est GFR (MDRD) Non-Af 29 L, BUN/Creatinine Ratio 36.2 H, Glucose 148 H, Calcium 8.6, Total Bilirubin 0.60 Rhythm: EKG: ECHO: Stress Test: Cardiac Cath: PCI: CT Surgery: Holter monitor: EPS: PPM: CXR: Chest CT Scan: Radiography Diagnostic Testing: Radiology Impression Echocardiogram 07/13/24 16:17 Interpretation Summary Mildly dilated left ventricle. Generalized hypokinesis. Severe hypokinesis of the anterior wall. Estimated LVEF 30%. The left atrium is severely enlarged. The right atrium is mildly enlarged. Bioprosthetic mitral valve mean peak gradient 11.2 mmHg. Ordering Physician: Nathalie Goddard Performed By: Isabella Bueno RDCS Chest X-Ray 07/14/24 15:05 IMPRESSION: Status post right thoracentesis. No evidence of pneumothorax. Residual pleural parenchymal changes at the right lung base. Electronically Signed: Amarjit Cruz MD at 15:15 EDT , Physical Exam Narrative Comfortable. No apparent distress. Heart sounds 1 and 2 are normal. Chest clear to auscultation bilaterally. Alert oriented x 3. No ankle edema noted. Assessment & Plan Assessment/Plan (1) Acute non-ST elevation myocardial infarction (NSTEMI): PLAN: I believe this is most probably secondary to demand ischemia with his severe blood loss anemia superimposed upon his severe CAD with chronic total occlusion of the RCA. (2) CAD (coronary artery disease): PLAN: History of stent to the LAD in August of last year. Also noted to have chronic total occlusion of the right coronary artery. Holding antiplatelet medications because of his acute blood loss anemia. EGD findings noted. I would recommend to start patient's clopidogrel 75 mg once daily when okay with gastroenterology. (3) ABLA (acute blood loss anemia): PLAN: As per GI. (4) Carotid artery disease: QUALIFIERS: Carotid artery disease type: stenosis Laterality: r ight Qualified Code(s): I65.21 - Occlusion and stenosis of right carotid artery PLAN: Status post right carotid endarterectomy. (5) Diabetes: PLAN: As per internal medicine.
[2024-07-15 12:13] LABS: Bedside Glucose 220 mg/dL (74-106)
[2024-07-15 16:55] LABS: Bedside Glucose 174 mg/dL (74-106)
[2024-07-15 22:16] LABS: Bedside Glucose 150 mg/dL (74-106)
[2024-07-16 03:02] VITALS: BP 116/51; PULSE 75; RESP 14; TEMP 36.1; O2SAT 97
[2024-07-16 03:35] VITALS: O2SAT 97
[2024-07-16 03:37] VITALS: PULSE 69
[2024-07-16 04:30] LABS: Absolute Lymphocyte Count 0.44 X10^3/uL (0.83-4.51); Absolute Neutrophil Count 3.4 X10^3/uL (2.0-7.7); Basophil# 0.02 X10^3/uL; Basophil% 0.4 % (0-1); Eosinophil# 0.19 X10^3/uL; Eosinophils% 4.1 % (0-5); Hematocrit 25.2 % (40-54); Hemoglobin 7.6 g/dL (13.0-16.5); Lymphocyte # 0.44 X10^3/ul (0.83-4.51); Lymphocyte % 9.6 % (19-41); Mean Corp Hgb Conc 30.2 g/dL (32-36); Mean Corpuscular Hgb 27.5 pg (27.0-32.0); Mean Corpuscular Volume 91.3 fL (80-94); Mean Platelet Vol. 9.9 fl (6.2-12.0); Monocyte# 0.47 X10^3/uL; Monocyte% 10.2 % (0-10); NRBC Flagged by Analyzer 0 % (0-5); Neutrophil # 3.43 X10^3/uL (2.7-7.7); Neutrophil % 74.8 % (47-70); POSITIVE DIFFERENTIAL YES; Platelet Count 138 K/mm3 (150-450); RBC Distribution Width CV 18.6 % (11.6-14.6); RBC Distribution Width SD 58.7 fl (35.1-43.9); Red Blood Count 2.76 M/mm3 (4.6-6.2); White Blood Count 4.6 K/mm3 (4.4-11.0)
[2024-07-16 04:45] LABS: ALB/GLOB Ratio 0.7 RATIO (0.9-2.4); AST(SGOT) 22 U/L (15-37); Alanine Aminotransfer ALT/SGPT 22 U/L (16-61); Albumin, Serum 2.9 g/dL (3.2-5.0); Alkaline Phosphatase 87 U/L (45-117); Anion Gap 5 (5-15); BUN 75 mg/dL (7-18); BUN/Creat Ratio 30.5 RATIO (10-20); Calcium,Total 8.4 mg/dL (8.5-10.1); Chloride 109 mmol/L (98-107); Creatinine, Serum 2.46 mg/dL (0.70-1.30); EST Glomerular Filtration Rate 27 mL/min (>60); Est Glom Filt Rate - Afr Amer 33 mL/min (>60); Estimated Creatinine Clearance 29.03 ml/min; Globulin 3.9 g/dL (2.2-4.2); Glucose 146 mg/dL (74-106); Potassium 4.5 mmol/L (3.5-5.1); Protein, Total 6.8 g/dL (6.4-8.2); Sodium Level 137 mmol/L (136-145)
[2024-07-16 05:14] LABS: International Normalized Ratio 1.3; Prothrombin Time (Protime)PT. 16.5 SECONDS (11.7-14.9)
--- NOTE | 2024-07-16 06:30 | US_ITS ---
STUDY: ABDOMINAL ULTRASOUND - RIGHT UPPER QUADRANT REASON FOR VISIT: Male, 79 years old Portal HTN, R/O PV thrombosis. rule out cirrhosis -- to be kept NPO overnight TECHNIQUE: Ultrasound evaluation of the right upper quadrant was performed with real-time and static britton-scale imaging. TECHNICAL QUALITY: Adequate. COMPARISON: None. FINDINGS: Liver: The liver is enlarged and measures 19.7 cm. There is a heterogeneous echogenicity of the liver. The bile ducts are within normal limits. There is hepatic color flow. The direction of portal flow is hepatopetal. There is no demonstrated mass lesion. Gallbladder: Normal distended gallbladder. The gallbladder wall is thickened and measures 5 mm. There is a negative sonographic Gee''s sign. There is no pericholecystic fluid. There are multiple echogenic structures within the gallbladder, consistent with multiple gallstones. Common Bile Duct (C.B.D.): The common bile duct measures 4 mm. Pancreas: Normal size of the head, body and tail of the pancreas. There is normal echogenicity of the pancreas. There is no demonstrated pancreatic mass or cyst. Right Kidney: Normal size of the right kidney. The right kidney measures 10.7cm x 4.9 cm x 5.6 cm. Normal renal cortex. The right cortex measures 1.4 cm. There is no demonstrated renal mass or cyst. There is no right hydronephrosis. IMPRESSION: Hepatomegaly. Heterogeneous echotexture of the liver. Multiple gallstones and thickened gallbladder wall. Electronically Signed: Amarjit Cruz MD at 14:43 EDT , STUDY: ABDOMINAL ULTRASOUND - LEFT UPPER QUADRANT REASON FOR EXAM: Male, 79 years old. Portal HTN, R/O PV thrombosis. rule out cirrhosis -- to be kept NPO overnight TECHNIQUE: Transabdominal ultrasound was performed with real-time and static britton scale imaging. TECHNICAL QUALITY: Adequate. COMPARISON: None. FINDINGS: Spleen: There is splenomegaly. The spleen measures 16 cm x 4.2 cm x 6.5 cm. US/Abdomen Limited IMPRESSION: Splenomegaly. Electronically Signed: Amarjit Cruz MD at 14:45 EDT ,
[2024-07-16 08:18] VITALS: O2SAT 96
--- NOTE | 2024-07-16 08:41 | DCINST_ITS ---
Discharge Instructions Diet Discharge Diet: Light diet - advance as tolerated Follow Up Care Test Results: Test results from this visit will be discussed in further detail at your follow- up appointment, if applicable. Discharge Plan Admission Admit Date/Time: 07/13/24 16:06 Primary Reason for Your Visit: GI bleed, acute blood loss severe anemia. Right large pleural effusion Attending Provider: Raimundo Colin Primary Care Provider: Angie Cheng Consulting Providers: Nathalie Goddard; Antonio Leon Discharge Orders/Prescriptions Prescriptions: New sennosides-docusate sodium [Stimulant Laxative Plus] 8.6-50 mg Tablet 2 tab PO BID PRN (Reason: Constipation) Qty: 0 0RF Rx Instructions: [id number]. Take it as needed for positive pantoprazole 40 mg Tablet,Delayed Release (Dr/Ec) 40 mg PO BID 30 Days Qty: 60 2RF Continued amlodipine 10 mg tablet 10 mg PO DAILY Qty: 90 3RF cyanocobalamin (vitamin B-12) 1,000 mcg/mL kit 1,000 mcg subcut QMONTH Patient Comments: PATIENT INJECTS THIS ONCE A MONTH ON THE . multivitamin Tablet 1 tab PO DAILY Jardiance 25 mg tablet 25 mg PO DAILY Rx Instructions: Will start when current supply of farxiga is finished ferrous sulfate 325 mg (65 mg iron) tablet 325 mg PO DAILY Rx Instructions: 2 tabs daily atorvastatin 40 mg Tablet 40 mg PO QHS 30 Days Qty: 30 0RF furosemide 40 mg tablet 40 mg PO DAILY clopidogrel [Plavix] 75 mg tablet 75 mg PO QDAY Qty: 90 3RF Changed insulin aspart U-100 100 unit/mL (3 mL) insulin pen 10 unit subcut TIDCM 30 Days Qty: 0 0RF Rx Instructions: Hold if glucose less than 130 mg/dl insulin glargine 100 unit/mL (3 mL) insulin pen 20 unit subcut DAILY 30 Days Qty: 0 0RF Held aspirin 81 mg Tablet,Delayed Release (Dr/Ec) 81 mg PO DAILY 30 Days Qty: 30 0RF Hold Instructions: Hold for 7 days Discontinued ferrous sulfate 325 mg (65 mg iron) tablet 325 mg PO BID Referrals / Follow Up: Antonio Leon MD [Med Staff - Active Staff] - Within 1 Month Pop Noguera DO [Med Staff - Active Staff] - Within 1 Month Matthew Redding NP, BUSINESS OBJECTS ANALYST-C [Med Staff - Adv Practice Prof] - Within 2 Weeks Angie Cheng NP-C [Primary Care Provider] - Disposition Disposition (needs filled in before D/C Order can be placed): Home, Self Care
--- NOTE | 2024-07-16 08:51 | PCM.DC.SUM ---
Providers Date of Admission: 07/13/24 Date of Discharge: 07/16/24 Primary Care Physician: EMY Rahman Consultations 07/13/24 18:31 Consult: Cardiology Routine Consulting Provider: Antonio Leon Reason for Consult: Stress induced NSTEMI/Pre-op clearance EMERGENT Consult: No Notified: Yes Date Notified: 07/13/24 Time Notified: 16:13 Method of Notification: ED Physician Initiated Consult: Gastroenterology Routine Consulting Provider: Mari[facility] Reason for Consult: GI bleed EMERGENT Consult: No Notified: Yes Date Notified: 07/13/24 Time Notified: 16:11 Method of Notification: ED Physician Initiated Reason For Visit: GIB Diagnosis Discharge Diagnosis (1) Acute non-ST elevation myocardial infarction (NSTEMI): Status: Acute Code(s): I21.4 - Non-ST elevation (NSTEMI) myocardial infarction (2) CAD (coronary artery disease): Status: Acute Code(s): I25.10 - Atherosclerotic 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[place] coronary artery without angina pectoris (3) ABLA (acute blood loss anemia): Status: Acute Code(s): D62 - Acute posthemorrhagic anemia (4) Carotid artery disease: Status: Acute Code(s): I77.9 - Disorder of arteries and arterioles, unspecified Qualifiers: Carotid artery disease type: stenosis Laterality: right Qualified Code(s): I65.21 - Occlusion and stenosis of right carotid artery (5) Diabetes: Status: Acute Code(s): E11.9 - Type 2 diabetes mellitus without complications Plan 79-year-old gentleman with multiple comorbidities was admitted for acute blood loss anemia on iron supplement with history of chronic anemia Patient stated he had anemia and bleed after the carotid surgery/CVA in April 2024 and had cardiac resuscitation with CPR. He also had thoracocentesis 2-3 times in the past. 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 1. Acute blood loss anemia with chronic anemia -Continue home iron supplementation -Hemoglobin 6.7 on admission. Transfused 2 units of packed red blood cells. Repeat H&H after 2 units 8.0/25.3%. Baseline hemoglobin has been running between 9 and 10 On PPI drip. GI consulted. Hold aspirin Plavix Plan for EGD today. Plan was discussed with patient's near the bedside. 07/15: Patient had EGD on 07/14. EGD findings discussed with the patient, his and daughter near the bedside. Overall suggestive of IGV, PHG and esophageal varices therefore will need workup increased portal hypertension. Multiple differential diagnoses were discussed including causes include perihepatic, hepatic or posthepatic portal hypertension. The patient denies history of chronic liver disease. Right upper quadrant sonogram ordered. Advised to follow-up in GI clinic Impressions : - Grade I esophageal varices. - Portal hypertensive gastropathy. Biopsied. 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 - Non-bleeding gastric ulcers with no stigmata of bleeding. - No gross lesions in the first portion of the duodenum. - Chronic liver disease workup Recommendations : - [facility]. - Resume regular diet. - Continue present medications. - Await pathology results. - Use Protonix (pantoprazole) 40 mg PO BID. 07/16: Patient wants to go home. [employer]er Service Supervisor recommended to resume Plavix when okay with GI. Continue holding baby aspirin. H&H 7.6/25.2%. Platelet count 138,000. Plavix resumed from tomorrow a.m. Right pleural effusion -Appears to be moderate in size. Right-sided thoracocentesis ordered with fluid analysis tests as per lights criteria. 07/15: Patient had 1800 mL clear reddish fluid was drained. 100 mL was sent for collection. As per lights criteria fluid is exudative primarily from diuretic. 07/16: Thoracic fluid culture no growth. troponin-Highly suspect related to acute anemia,/demand ischemia: Patient does not have chest pain pressure or tightness. Continue to hold aspirin and Plavix due to GI bleed. Troponin went up about 40 500-10,918. -Patient has known history of cardiac disease with most recent stent placed in proximal LAD 08/2023 -Check limited echo as patient had recent echo in April 2024 as mentioned below -The case was discussed with Dr. Leon on admission CKD stage IV -Serum creatinine appears to be at baseline -Monitor creatinine closely 07/15: BUN/creatinine 84/2.23, estimated creatinine clearance 30 mL/min. BUN/creatinine ratio 36 07/16: BUNs/creatinine 75/2.46. On baseline. Right carotid artery stenosis -Status post right carotid endarterectomy April 2024 -Aspirin and Plavix on hold CAD/essential hypertension/hyperlipidemia/chronic HFrEF -Continue Jardiance -Hold Lasix -Continue atorvastatin -Hold amlodipine -Hold aspirin/Plavix -Patient does not appear to be decompensated with regards to his heart failure however we will have to monitor closely with blood administration -Last echocardiogram done on 05/21/2024 at which time he was found to have an EF of 40% with stage I diastolic dysfunction and mild to moderate segmental systolic dysfunction, stable appearing bioprosthetic mitral valve apparatus DM-2 -Hold prandial insulin as patient is n.p.o. -Decrease basal insulin from 40 to 20 units as patient is n.p.o. -Continue home Jardiance History of gout -No signs of acute decompensation -Monitor DVT prophylaxis -SCDs -chemoprophylaxis contraindicated due to GI bleed CODE STATUS -Full code as verified on admission Echo in April 2024 Interpretation Summary Normal LV size. Mild concentric left ventricular hypertrophy. The left ventricular ejection fraction is 40 %. Stage 1 diastolic dysfunction. Mild to moderate segmental systolic dysfunction (see wall motion). Stable appearing bioprosthetic mitral valve apparatus. Mean transmitral valve gradient 8.7 mmHg. Clinical Impression(s) from Imaging Studies Echocardiogram 07/13/24 16:17 Interpretation Summary Mildly dilated left ventricle. Generalized hypokinesis. Severe hypokinesis of the anterior wall. Estimated LVEF 30%. The left atrium is severely enlarged. The right atrium is mildly enlarged. Bioprosthetic mitral valve mean peak gradient 11.2 mmHg. Ordering Physician: Nathalie Goddard Performed By: Isabella Bueno RDCS Chest X-Ray 07/14/24 15:05 IMPRESSION: Status post right thoracentesis. No evidence of pneumothorax. Residual pleural parenchymal changes at the right lung base. Electronically Signed: Amarjit Cruz MD at 15:15 EDT , Medications at Discharge Home Medications amlodipine 10 mg tablet 10 mg PO DAILY BLOOD PRESSURE #90 tabs 07/11/21 cyanocobalamin (vitamin B-12) 1,000 mcg/mL injection kit 1,000 mcg subcut QMONTH SUPPLEMENT 07/10/22 multivitamin 1 tab PO DAILY SUPPLEMENT 07/23/23 aspirin 81 mg tablet,delayed release 81 mg PO DAILY HEART HEALTH 30 days #30 tabs 09/07/23 atorvastatin 40 mg tablet 40 mg PO QHS CHOLESTEROL 30 days #30 tabs 09/07/23 furosemide 40 mg tablet 40 mg PO DAILY FLUID 10/02/23 empagliflozin 25 mg tablet (Jardiance) 25 mg PO DAILY DIABETES 01/20/24 clopidogrel 75 mg tablet (Plavix) 75 mg PO QDAY BLOOD THINNER #90 tabs 04/06/24 ferrous sulfate 325 mg (65 mg iron) tablet 325 mg PO DAILY Anemia 06/16/24 insulin aspart U-100 100 unit/mL (3 mL) subcutaneous pen 10 unit (0.1 mL) subcut TIDCM DIABETES 30 days #0 mL 07/16/24 insulin glargine 100 unit/mL (3 mL) subcutaneous pen 20 unit (0.2 mL) subcut DAILY DIABETES 30 days #0 mL 07/16/24 pantoprazole 40 mg tablet,delayed release 40 mg PO BID 30 days #60 tabs 07/16/24 sennosides 8.6 mg-docusate sodium 50 mg tablet (Stimulant Laxative Plus) 2 tab PO BID PRN Constipation #0 tabs 07/16/24 Physical Exam Narrative Seen and examined. Patient is stated he did not had bowel movement. MiraLAX 17 g twice daily ordered. On senna S2 tablet twice daily as needed, changed to scheduled Physical exam General: Alert, Oriented x3, Cooperative, fatigue HEENT: Atraumatic, PERRLA, EOMI, Normocephalic Oral: No Gingival or Mucosal Lesions/ Ulcerations Neck: Supple, No JVD, Negative Carotid Bruits Chest wall/Lungs: No chest wall tenderness air entry on right side improved after right thoracocentesis, 1300 mL. AE decreased on lung bases Cardiovascular: Sinus Rhythm, Normal S1, Normal S2, subtle systolic murmur over cardiac Abdomen: Bowel Sounds Present, Soft, Non Tender, Non-Distended : No dysuria. No renal angle tenderness. No suprapubic tenderness. Extremities: Mild bilateral pitting edema, no change capillary Refill Less than 3 Seconds Skin: No rashes, No breakdown Musculoskeletal: No Tenderness to Palpation of Joints or Extremities Neurological: Cranial nerves II-XII grossly intact, DTR 2+/4. No acute focal neurological deficit. Psych/Mental Status: Normal Affect, Appropriate. Weight / BMI Weight Weight: 200 lb 13.458 oz Body Mass Index (BMI) 28.0 ABG / Lab / Microbiology Data 07/16/24 04:15 07/16/24 04:15 Laboratory: Laboratory Results - last 24 hr 07/15/24 11:49: POC Glucose 220 H 07/15/24 16:33: POC Glucose 174 H 07/15/24 21:54: POC Glucose 150 H 07/16/24 04:15: WBC 4.6, RBC 2.76 L, Hgb 7.6 L, Hct 25.2 L, MCV 91.3, MCH 27.5, MCHC 30.2 L, RDW Std Deviation 58.7 H, RDW Coeff of Ngoc 18.6 H, Plt Count 138 L, MPV 9.9, Immature Gran % (Auto) 0.900, Neut % (Auto) 74.8 H, Lymph % (Auto) 9.6 L, [place] % (Auto) 10.2 H, Eos % (Auto) 4.1, Baso % (Auto) 0.4, Absolute Neuts (auto) 3.4, Absolute Lymphs (auto) 0.44 L, Nucleated RBC % 0, PT 16.5 H, INR 1.3, Sodium 137, Potassium 4.5, Chloride 109 H, Carbon Dioxide 23.0, Anion Gap 5, BUN 75 H, Creatinine 2.46 H, Estim Creat Clear Calc 29.03, Est GFR (MDRD) Af Amer 33 L, Est GFR (MDRD) Non-Af 27 L, BUN/Creatinine Ratio 30.5 H, Glucose 146 H, Calcium 8.4 L, Total Bilirubin 0.40, AST 22, ALT 22, Alkaline Phosphatase 87, Total Protein 6.8, Albumin 2.9 L, Globulin 3.9, Albumin/Globulin Ratio 0.7 L Microbiology: Microbiology 07/14/24 14:41 Fluid - Thoracentesis Fluid Gram Stain - Final 07/14/24 14:41 Fluid - Thoracentesis Fluid Body Fluid Culture - Preliminary No growth-Final to follow 07/14/24 14:41 Fluid - Thoracentesis Fluid Anaerobic Culture - Preliminary No growth in 48 hours. 07/13/24 14:54 Stool Stool Occult Blood (DIEGO) - Final Occult Blood Positive D/C Instructions Discharge Diet: Light diet - advance as tolerated Meaningful Use Info Meaningful Use Meaningful Use Diagnoses (Choose all that apply): None applicable Ischemic Stroke Statin Dosing Therapy Reference: STATIN DOSE THERAPY REFERENCE: * Patients > 75 years receive moderate or high dose statin therapy. * Patients 75 years or YOUNGER should receive HIGH intensity statin dose unless contraindicated. You will be required to document reason for non-treatment if statin daily dose does not meet guidelines. HIGH DOSE STATIN THERAPY DAILY Atorvastatin > than or = to 40 mg Rosuvastatin > than or = to 20 mg Amlodipine + Atorvastatin > than or = to 2.5/40 mg Ezetimibe + Simvastatin 10/80 mg Simvastatin 80mg Discharge Plan Admission Admit Date/Time: 07/13/24 16:06 Primary Reason for Your Visit: GI bleed, acute blood loss severe anemia. Right large pleural effusion Attending Provider: Raimundo Colin Primary Care Provider: Angie Cheng Consulting Providers: Nathalie Goddard; Antonio Leon Discharge Orders/Prescriptions Prescriptions: New sennosides-docusate sodium [Stimulant Laxative Plus] 8.6-50 mg Tablet 2 tab PO BID PRN (Reason: Constipation) Qty: 0 0RF Rx Instructions: [id number]. Take it as needed for positive pantoprazole 40 mg Tablet,Delayed Release (Dr/Ec) 40 mg PO BID 30 Days Qty: 60 2RF Continued amlodipine 10 mg tablet 10 mg PO DAILY Qty: 90 3RF cyanocobalamin (vitamin B-12) 1,000 mcg/mL kit 1,000 mcg subcut QMONTH Patient Comments: PATIENT INJECTS THIS ONCE A MONTH ON THE . multivitamin Tablet 1 tab PO DAILY Jardiance 25 mg tablet 25 mg PO DAILY Rx Instructions: Will start when current supply of farxiga is finished ferrous sulfate 325 mg (65 mg iron) tablet 325 mg PO DAILY Rx Instructions: 2 tabs daily atorvastatin 40 mg Tablet 40 mg PO QHS 30 Days Qty: 30 0RF furosemide 40 mg tablet 40 mg PO DAILY clopidogrel [Plavix] 75 mg tablet 75 mg PO QDAY Qty: 90 3RF Changed insulin aspart U-100 100 unit/mL (3 mL) insulin pen 10 unit subcut TIDCM 30 Days Qty: 0 0RF Rx Instructions: Hold if glucose less than 130 mg/dl insulin glargine 100 unit/mL (3 mL) insulin pen 20 unit subcut DAILY 30 Days Qty: 0 0RF Held aspirin 81 mg Tablet,Delayed Release (Dr/Ec) 81 mg PO DAILY 30 Days Qty: 30 0RF Hold Instructions: Hold for 7 days Discontinued ferrous sulfate 325 mg (65 mg iron) tablet 325 mg PO BID Referrals / Follow Up: Antonio Leon MD [Med Staff - Active Staff] - Within 1 Month Pop Noguera DO [Med Staff - Active Staff] - Within 1 Month Matthew Redding NP, [facility]-C [Med Staff - Adv Practice Prof] - Within 2 Weeks Angie Cheng NP-C [Primary Care Provider] - Disposition Disposition (needs filled in before D/C Order can be placed): Home, Self Care Charges/Coding Visit Charges Inpatient E&M: 38630 Disch Hosp >30min
--- NOTE | 2024-07-16 10:09 | CASEMGMT ---
ISRA CORBETT NOTE: Plan is for discharge home today. ISRA CORBETT to room. Introduced self and role. Pt sitting on edge of bed, family @ bedside. He states he is ready to go home. Made aware a couple of scripts have been sent to [facility]. Also made aware some changes have been made to his insulin and to ask RN, who reviews discharge orders w/him, if he has any questions about the changes to insulin and other medications. He also states the [place] [facility] follows him closely as well and he will f/u with them. He denies having any discharge needs/concerns. Theodore FLANAGANN ISRA CM
[2024-07-16 11:00] VITALS: BP 110/49; PULSE 88; RESP 16; TEMP 36.2; O2SAT 98
[2024-07-16] MEDS: Ferrous Sulfate 325 MG Tablet PO (12:03)
[2024-07-16] MEDS: Polyethylene Glycol 3350 17 GM PACKET PO (12:03)
[2024-07-16] MEDS: Insulin Glargine-YFGN 100 UNIT/ML Pen 20 UNIT SC (12:04)
[2024-07-16] MEDS: Pantoprazole Sodium 40 MG Tablet PO (12:04)
[2024-07-16] MEDS: Insulin Lispro 100 UNIT/ML INSULN.PEN SC (12:05)
[2024-07-16 12:11] LABS: Bedside Glucose 278 mg/dL (74-106)
[2024-07-16 13:03] LABS: Pathologist Comment/Body Fluid Reviewed
[2024-07-17 05:07] LABS: HEPATITIS B SURFACE AG Negative (Negative); Hep C Antibodies Non Reactive (Non Reactive); Hepatitis A IgM Antibody Negative (Negative); Hepatitis B Core AB IgM Negative (Negative)
[2024-07-17 09:02] LABS: Cytology, Body Fluid / CSF SEE PATHOLOGY REPORT
== END 2024-07-16 13:30 | disposition home or self-care (01) | DRG 812 ==
LOC: ED 15:17 → ICU 17:04
PROVIDERS: Family Medicine; Internal Medicine Gastroenterology; Admitting Provider Internal Medicine; Emergency Provider Emergency Medicine; PCP Nurse Practitioner Family; Visit Provider Internal Medicine
PROC: 0DJ08ZZ Inspection of Upper Intestinal Tract, Via Natural or Artificial Opening Endoscopic (ICD-10-PCS; CPT 43235; principal; 2024-07-14 15:40)
DX: D62 Acute posthemorrhagic anemia (principal); I85.00 Esophageal varices without bleeding; D68.32 Hemorrhagic disorder due to extrinsic circulating 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; I24.89 Other forms of acute ischemic heart disease; I13.0 Hypertensive heart and chronic kidney disease with heart failure and stage 1 through stage 4 chronic kidney disease, or unspecified chronic kidney disease; N18.4 Chronic kidney disease, stage 4 (severe); I50.22 Chronic systolic (congestive) heart failure; J90 Pleural effusion, not elsewhere classified; K76.6 Portal hypertension; K92.2 Gastrointestinal hemorrhage, unspecified; E11.22 Type 2 diabetes mellitus with diabetic chronic kidney disease; I65.21 Occlusion and stenosis of right carotid artery; K25.9 Gastric ulcer, unspecified as acute or chronic, without hemorrhage or perforation; I25.5 Ischemic cardiomyopathy; I25.10 Atherosclerotic 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native coronary artery without angina pectoris; E78.5 Hyperlipidemia, unspecified; Z79.4 Long term (current) use of insulin; I86.4 Gastric varices; I25.2 Old myocardial infarction; Z79.01 Long term (current) use of 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; Z87.891 Personal history of nicotine dependence; Z95.5 Presence of coronary angioplasty implant and graft; Z79.899 Other long term (current) drug therapy; Z79.82 Long term (current) use of aspirin
CPT/HCPCS: 32555; 36415; 71046; 76705; 80048; 80053; 80074; 82274; 82945; 82962; 83615; 83735; 83880; 84100; 84157; 84484; 85014; 85018; 85025; 85610; 86850; 86900; 86901; 86920; 86922; 87070; 87075; 87205; 88108; 88305; 88313; 88342; 89050; 93005; 93308; 94668; 94762; 97802; 99252; 99284; J7030; P9016; A4216; G0463; J2405; J3490

== ENCOUNTER → 2024-07-13 | Outpatient (CLI) | payer MEDICARE, SELFPAY ==
--- NOTE | 2024-07-13 13:29 | RAD_ITS ---
STUDY: X-RAY CHEST REASON FOR EXAM: Male, 79 years old. SOB, r/o pleural effusion -- Hx frequent thoracentesis TECHNIQUE: PA and lateral views of the chest. COMPARISON: Comparison is made with prior study dated April 15, 2024. FINDINGS: [id number] right pleural effusion with atelectasis at the right lung base. There is no demonstrated pleural abnormality. Patient status post mitral valve replacement. Normal mediastinum and mj. Normal visualized pulmonary arteries. Normal visualized aortic arch and descending thoracic aorta. There are degenerative changes of the visualized thoracic spine. Normal visualized ribs, clavicles, and shoulders. There is no demonstrated abnormality of the visualized soft tissue structures of the upper abdomen. RAD/Chest PA and Lateral IMPRESSION: [id number] size right pleural effusion with underlying atelectasis. Electronically Signed: Amarjit Cruz MD at 14:27 EDT ,
[2024-07-13 13:31] LABS: Absolute Lymphocyte Count 0.46 X10^3/uL (0.83-4.51); Absolute Neutrophil Count 4.4 X10^3/uL (2.0-7.7); Basophil# 0.04 X10^3/uL; Basophil% 0.7 % (0-1); Eosinophil# 0.07 X10^3/uL; Eosinophils% 1.3 % (0-5); Hematocrit 22.4 % (40-54); Hemoglobin 6.7 g/dL (13.0-16.5); Lymphocyte # 0.46 X10^3/ul (0.83-4.51); Lymphocyte % 8.5 % (19-41); Mean Corp Hgb Conc 29.9 g/dL (32-36); Mean Corpuscular Hgb 27.6 pg (27.0-32.0); Mean Corpuscular Volume 92.2 fL (80-94); Mean Platelet Vol. 9.2 fl (6.2-12.0); Monocyte# 0.42 X10^3/uL; Monocyte% 7.7 % (0-10); NRBC Flagged by Analyzer 0 % (0-5); Neutrophil # 4.39 X10^3/uL (2.7-7.7); Neutrophil % 80.9 % (47-70); POSITIVE DIFFERENTIAL YES; Platelet Count 150 K/mm3 (150-450); RBC Distribution Width CV 18.4 % (11.6-14.6); RBC Distribution Width SD 61.3 fl (35.1-43.9); Red Blood Count 2.43 M/mm3 (4.6-6.2); White Blood Count 5.4 K/mm3 (4.4-11.0)
[2024-07-13 14:01] LABS: Anion Gap 12 (5-15); BNP,B-Type NATRIURETIC PEPTIDE 806.1 pg/mL (0-100); BUN 79 mg/dL (7-18); BUN/Creat Ratio 36.4 RATIO (10-20); Calcium,Total 8.7 mg/dL (8.5-10.1); Chloride 104 mmol/L (98-107); Creatinine, Serum 2.17 mg/dL (0.70-1.30); EST Glomerular Filtration Rate 32 mL/min (>60); Est Glom Filt Rate - Afr Amer 38 mL/min (>60); Glucose 238 mg/dL (74-106); Potassium 4.7 mmol/L (3.5-5.1); Sodium Level 137 mmol/L (136-145)
== END | disposition home or self-care (01) ==
PROVIDERS: PCP Nurse Practitioner Family; Referring Provider Nurse Practitioner Family; Visit Provider Nurse Practitioner Family
DX: I50.20 Unspecified systolic (congestive) heart failure (principal); N18.32 Chronic kidney disease, stage 3b; J90 Pleural effusion, not elsewhere classified; R06.00 Dyspnea, unspecified; Z86.2 Personal history of diseases of the blood and blood-forming organs and certain disorders involving the immune mechanism
CPT/HCPCS: 36415; 71046; 80048; 83880; 85025

== ENCOUNTER → 2024-07-28 | Outpatient (CLI) | payer MEDICARE, SELFPAY ==
[2024-07-28 15:18] LABS: Absolute Lymphocyte Count 0.36 X10^3/uL (0.83-4.51); Absolute Neutrophil Count 2.9 X10^3/uL (2.0-7.7); Basophil# 0.03 X10^3/uL; Basophil% 0.8 % (0-1); Eosinophil# 0.07 X10^3/uL; Eosinophils% 1.8 % (0-5); Hematocrit 30.3 % (40-54); Hemoglobin 9.1 g/dL (13.0-16.5); Lymphocyte # 0.36 X10^3/ul (0.83-4.51); Mean Corpuscular Hgb 26.1 pg (27.0-32.0); Mean Corpuscular Volume 86.8 fL (80-94); Mean Platelet Vol. 9.7 fl (6.2-12.0); NRBC Flagged by Analyzer 0 % (0-5); Neutrophil # 2.92 X10^3/uL (2.7-7.7); Neutrophil % 72.9 % (47-70); POSITIVE DIFFERENTIAL YES; Platelet Count 173 K/mm3 (150-450); RBC Distribution Width CV 16.4 % (11.6-14.6); RBC Distribution Width SD 52.6 fl (35.1-43.9); Red Blood Count 3.49 M/mm3 (4.6-6.2)
[2024-07-28 15:30] LABS: Differential Indicated SCAN CRITERIA MET
[2024-07-28 15:55] LABS: Anisocytosis RARE; Hypochromasia RARE; Platelet Estimate ADEQUATE (ADEQ); Polychromasia RARE; Red Cell Morphology NORM C+C NORMAL (NORM C&C); Target Cells RARE
== END | disposition home or self-care (01) ==
LOC: BFHLAB 13:49
PROVIDERS: PCP Nurse Practitioner Family; Referring Provider Nurse Practitioner Family; Visit Provider Nurse Practitioner Family
DX: D50.9 Iron deficiency anemia, unspecified (principal)
CPT/HCPCS: 36415; 85025

== ENCOUNTER 2024-08-06 12:46 | Outpatient (RCR) | payer MEDICARE, SELFPAY ==
[2024-08-06 13:20] LABS: Absolute Lymphocyte Count 0.44 X10^3/uL (0.83-4.51); Basophil# 0.05 X10^3/uL; Eosinophil# 0.09 X10^3/uL; Eosinophils% 1.7 % (0-5); Hematocrit 27.7 % (40-54); Hemoglobin 8.4 g/dL (13.0-16.5); Lymphocyte # 0.44 X10^3/ul (0.83-4.51); Lymphocyte % 8.5 % (19-41); Mean Corp Hgb Conc 30.3 g/dL (32-36); Mean Corpuscular Hgb 25.3 pg (27.0-32.0); Mean Corpuscular Volume 83.4 fL (80-94); Mean Platelet Vol. 9.3 fl (6.2-12.0); Monocyte# 0.58 X10^3/uL; Monocyte% 11.2 % (0-10); NRBC Flagged by Analyzer 0 % (0-5); Neutrophil # 3.99 X10^3/uL (2.7-7.7); POSITIVE DIFFERENTIAL YES; Platelet Count 222 K/mm3 (150-450); RBC Distribution Width CV 16.5 % (11.6-14.6); RBC Distribution Width SD 50.4 fl (35.1-43.9); Red Blood Count 3.32 M/mm3 (4.6-6.2); White Blood Count 5.2 K/mm3 (4.4-11.0)
== END 2024-08-06 18:00 | disposition home or self-care (01) ==
LOC: LAB 12:46
PROVIDERS: PCP Nurse Practitioner Family; Referring Provider Nurse Practitioner Family; Visit Provider Nurse Practitioner Family
DX: D50.9 Iron deficiency anemia, unspecified (principal)
CPT/HCPCS: 36415; 85025

== ENCOUNTER → 2024-08-13 | Outpatient (CLI) | payer MEDICARE, SELFPAY ==
[2024-08-13 11:23] LABS: Basophil# 0.04 X10^3/uL; Basophil% 0.7 % (0-1); Eosinophil# 0.14 X10^3/uL; Eosinophils% 2.3 % (0-5); Hematocrit 30.5 % (40-54); Hemoglobin 9.1 g/dL (13.0-16.5); Lymphocyte % 6.5 % (19-41); Mean Corp Hgb Conc 29.8 g/dL (32-36); Mean Corpuscular Hgb 25.1 pg (27.0-32.0); Mean Platelet Vol. 9.3 fl (6.2-12.0); Monocyte# 0.48 X10^3/uL; Monocyte% 7.9 % (0-10); NRBC Flagged by Analyzer 0 % (0-5); Neutrophil # 5.02 X10^3/uL (2.7-7.7); Neutrophil % 82.1 % (47-70); POSITIVE DIFFERENTIAL YES; Platelet Count 278 K/mm3 (150-450); RBC Distribution Width CV 17.1 % (11.6-14.6); RBC Distribution Width SD 52.4 fl (35.1-43.9); Red Blood Count 3.63 M/mm3 (4.6-6.2); White Blood Count 6.1 K/mm3 (4.4-11.0)
[2024-08-13 11:33] LABS: International Normalized Ratio 1.3; Prothrombin Time (Protime)PT. 16.5 SECONDS (11.7-14.9)
[2024-08-13 12:31] LABS: Cholesterol 81 mg/dL (200); Ferritin 94 ng/mL (26-388); High Density Lipoprotein 37 mg/dL; Iron 54 ug/dL (65-175); Iron Binding Capacity,Total 313 ug/dL (250-450); PERCENT IRON SATURATION 17.3 % (15.0-55.0); Triglycerides 73 mg/dL; Very Low Density Lipoprotein 15 mg/dL (5-40)
[2024-08-14 13:10] LABS: HIV - WCH Non-Reactive (Nonreactive); Vitamin B12 1318 pg/mL (211-911)
[2024-08-19 11:09] LABS: ANTINUCLEAR ANTIBODIES DIRECT Positive (Negative); Anti-Centromere B Ab <0.2 AI (0.0-0.9); Anti-Chromatin <0.2 AI (0.0-0.9); Anti-Jo <0.2 AI (0.0-0.9); Anti-Mitochondrial AB 21.5 Units (0.0-20.0); Anti-Scleroderma-70 AB <0.2 AI (0.0-0.9); Anti-dsDNA Ab 1 IU/mL (0-9); SJOGREN'S Anti-SS-A test < 0.2 AI (0.0-0.9); SJOGREN'S Anti-SS-B test < 0.2 AI (0.0-0.9); Smith Ab <0.2 AI (0.0-0.9)
[2024-08-19 16:10] LABS: AFP, Tumor Marker < 1.8 ng/mL (0.0-8.4); Albumin 3.1 g/dL (2.9-4.4); Alpha-1-Globulins 0.4 g/dL (0.0-0.4); Anti-Smooth Muscle ABS 15 Units (0-19); Ceruloplasmin 35.1 mg/dL (16.0-31.0); Copper, Serum or Plasma 138 ug/dL (69-132); Cytoplasmic Ab (C-ANCA) <1:20 titer (Neg:<1:20); Free Kappa Light Chains 174.2 mg/L (3.3-19.4); Free Lambda Light Chains 147.9 mg/L (5.7-26.3); Gamma Globulin 2.1 g/dL (0.4-1.8); HEPATITIS B SURFACE AG Negative (Negative); Haptoglobin 210 mg/dL (34-355); Hep C Antibodies Non Reactive (Non Reactive); Hepatitis A IgM Antibody Negative (Negative); Hepatitis B Core AB IgM Negative (Negative); Immunoglobulin A 572 mg/dL (61-437); Immunoglobulin E 1601 IU/mL (6-495); Immunoglobulin G 2043 mg/dL (603-1613); Immunoglobulin M 142 mg/dL (15-143); PROEL- TOTAL PROTEIN 7.5 g/dL (6.0-8.5); Perinuclear Ab (P-ANCA) <1:20 titer (Neg:<1:20)
== END | disposition home or self-care (01) ==
PROVIDERS: Student in an Organized Health Care Education/Training Program; PCP Nurse Practitioner Family; Referring Provider Internal Medicine; Visit Provider Internal Medicine
DX: K74.60 Unspecified cirrhosis of liver (principal); K76.6 Portal hypertension; I11.0 Hypertensive heart disease with heart failure; I50.9 Heart failure, unspecified; E11.9 Type 2 diabetes mellitus without complications; K92.2 Gastrointestinal hemorrhage, unspecified; E78.5 Hyperlipidemia, unspecified; D64.9 Anemia, unspecified; R79.89 Other specified abnormal findings of blood chemistry
CPT/HCPCS: 36415; 80061; 80074; 82105; 82140; 82247; 82248; 82390; 82525; 82607; 82728; 82746; 82784; 82785; 83010; 83036; 83516; 83540; 83550; 83883; 84165; 84443; 85025; 85610; 86037; 86038; 86140; 86225; 86235; 86334; 86703

== ENCOUNTER → 2024-08-24 | Outpatient (CLI) | payer MEDICARE, SELFPAY ==
--- NOTE | 2024-08-24 09:14 | US_ITS ---
STUDY: ABDOMINAL LIMITED ULTRASOUND FOR ASCITES REASON FOR EXAM: Male, 79 years old. Ascites TECHNIQUE: Ultrasound imaging was performed in all 4 quadrants of the abdomen and pelvis. COMPARISON: None. FINDINGS: Right upper quadrant view - No detected ascites. Left upper quadrant view - No detected ascites. Right lower quadrant view - No detected ascites. Left lower quadrant view - No detected ascites. US/Abdomen Limited IMPRESSION: No abdominal free fluid. Electronically Signed: Richard Murrieta MD at 15:20 EDT ,
== END | disposition home or self-care (01) ==
LOC: US 09:12
PROVIDERS: PCP Nurse Practitioner Family; Referring Provider Student in an Organized Health Care Education/Training Program; Visit Provider Student in an Organized Health Care Education/Training Program
DX: K76.6 Portal hypertension (principal)
CPT/HCPCS: 76705

== ENCOUNTER 2024-09-09 06:32 | Inpatient (IN) | payer OTHER, SELFPAY ==
[2024-09-09] VITALS (22 sets, daily range): BP systolic 98–139; BP diastolic 40–101; PULSE 70–89; RESP 16–19; TEMP 35.6–36.8; O2SAT 96–100; BMI 27.0; BMI 26.9
--- NOTE | 2024-09-09 07:09 | EKG12_ITS ---
Test Reason : WEAKNESS Blood Pressure : */* mmHG Vent. Rate : 82 BPM Atrial Rate : 82 BPM P-R Int : 196 ms QRS Dur : 130 ms QT Int : 432 ms P-R-T Axes : 45 -18 115 degrees QTcB Int : 504 ms Normal sinus rhythm Non-specific intra-ventricular conduction block Inferior infarct , age undetermined T wave abnormality, consider lateral ischemia Abnormal ECG Confirmed by CHAPITO AMBRIZ, LI ([id number]), editor magazine SHERIN FOSTER ([id number]) on 09/10/2024 1:46:47 P M Referred By: Confirmed By: LI URIARTE MD
--- NOTE | 2024-09-09 07:09 | RAD_ITS ---
HISTORY: dizziness. TECHNIQUE: XR Chest 1 View. COMPARISON: 07/14/2024. FINDINGS: CARDIOMEDIASTINAL BORDERS: Cardiac silhouette again upper limits of normal in size with valve replacements. Mediastinal contour also unchanged with calcification of the aortic knob. LUNGS: Increased opacification of the right mid to lower lung. PLEURA: Moderate right pleural effusion. OSSEOUS STRUCTURES: Mild degenerative change. RAD/Chest 1 View (Portable) IMPRESSION: Moderate right pleural effusion with atelectasis or consolidation in the right lung base, increased from prior. Electronically Signed: Lexi Eckert MD at 8:04 EST ,
--- NOTE | 2024-09-09 07:11 | CT_ITS ---
EXAM: CT Abdomen And Pelvis W/O Contrast Injection HISTORY: LLQ abdominal pain TECHNIQUE: Routine protocol CT abdomen and pelvis. IV Contrast: None.. Oral contrast: None. RADIATION DOSAGE (If Supplied By Facility): CTDIvol = ( 12.22 ) mGy, DLP = ( 689.90 ) mGycm Individualized dose optimization techniques were used for this CT. COMPARISON: None. LIMITATIONS: None. FINDINGS: LOWER CHEST: Large right pleural effusion with significant compressive atelectasis right lower lobe and right middle lobe. Cannot exclude underlying pulmonary mass. Cardiomegaly. Mitral valve prosthesis. Coronary artery calcifications. LIVER: Heterogeneous. Slightly nodular contour. GALLBLADDER AND BILIARY TREE: Gallstones in the gallbladder. PANCREAS: Grossly unremarkable. SPLEEN: Grossly unremarkable. ADRENAL GLANDS: Grossly unremarkable. KIDNEYS AND URETERS: No calculi demonstrated. No hydronephrosis. PERITONEUM: No free air. No free fluid. BOWEL: Diverticula throughout the colon. No definite localized inflammatory changes. No bowel obstruction. APPENDIX: Visualized and unremarkable. No evidence of acute appendicitis. VESSELS: Abdominal aorta is normal caliber. Extensive arterial calcifications. REPRODUCTIVE ORGANS: Prostate moderately enlarged. URINARY BLADDER: Grossly unremarkable. ABDOMINAL WALL: Stranding subcutaneous anterior abdominal wall possibly related to injection sites. BONES: No acute abnormalities. CT/Abdomen/Pelvis without Cont IMPRESSION: 1. Colonic diverticulosis without evidence of acute diverticulitis. 2. Cholelithiasis. 3. Large right pleural effusion with compressive atelectasis right middle lobe and right lower lobe. Cannot exclude underlying pulmonary mass. Follow-up CT chest recommended to exclude mass. Electronically Signed: Norma Mccloud MD at 7:53 EST ,
--- NOTE | 2024-09-09 07:11 | EX.ED.DYSGE1 ---
HPI History of Present Illness Chief Complaint: Dizziness Detail of Chief Complaint: Abdominal pain, lightheadedness Informant: patient Narrative Narrative: Patient presents the emergency department with complaint of abdominal pain and lightheadedness. Symptoms started last evening. Patient also had discomfort of his right shoulder since last night. Denies any trauma. He denies chest pain. He denies shortness of breath. Patient tells me last time he felt like this he was admitted because his hemoglobin dropped to 6 and required blood transfusion. Patient had an EGD at that time and noted to have varicosities but no bleeding. He does take iron and since taking iron his stools have been black. Lightheadedness worse with standing. Denies diarrhea. Does describe some left lower quadrant abdominal discomfort. Denies fever. [facility] Medical History Alcohol use Thyroid nodule Insulin dependent diabetes mellitus Diabetes History of renal disease Dietary restriction History of stress test Wears glasses Wears partial dentures Gout Low iron Shortness of breath on exertion Former smoker History of echocardiogram Cardiology follow-up encounter History of heart attack Acute on chronic diastolic (congestive) heart failure Non-rheumatic mitral regurgitation Essential (primary) hypertension Diabetes mellitus type II, controlled Hyperlipidemia Atherosclerotic 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[place] coronary artery without angina pectoris (09/06/23) Ischemic cardiomyopathy Occlusion and stenosis of right carotid artery Home Medications ?Medication ?Instructions ?Recorded ?Last Taken ?Type amlodipine 10 mg tablet 10 mg PO DAILY BLOOD PRESSURE #90 07/11/21 09/03/23 Rx tabs cyanocobalamin (vitamin B-12) 1,000 mcg subcut QMONTH SUPPLEMENT 07/10/22 09/11/22 History 1,000 mcg/mL injection kit multivitamin 1 tab PO DAILY SUPPLEMENT 07/23/23 09/02/23 History aspirin 81 mg tablet,delayed 81 mg PO DAILY HEART HEALTH 30 09/07/23 05/19/24 Rx release days #30 tabs atorvastatin 40 mg tablet 40 mg PO QHS CHOLESTEROL 30 days 09/07/23 Unknown Rx #30 tabs furosemide 40 mg tablet 40 mg PO DAILY FLUID 10/02/23 Unknown History empagliflozin 25 mg tablet 25 mg PO DAILY DIABETES 01/20/24 Unknown History (Jardiance) clopidogrel 75 mg tablet (Plavix) 75 mg PO QDAY BLOOD THINNER #90 06/10/24 07/23/24 Rx tabs ferrous sulfate 325 mg (65 mg 325 mg PO DAILY Anemia 06/16/24 07/14/24 History iron) tablet pantoprazole 40 mg tablet,delayed 40 mg PO BID 30 days #60 tabs 07/16/24 Unknown Rx release spironolactone 50 mg tablet 50 mg PO QAM #60 tabs 08/13/24 Unknown Rx lactulose 10 gram/15 mL oral 20 g (30 mL) PO TID #3,785 mL 08/20/24 Unknown Rx solution insulin aspart U-100 100 unit/mL 14 unit subcut TIDCM DIABETES 09/09/24 Unknown History (3 mL) subcutaneous pen insulin glargine 100 unit/mL (3 38 unit subcut DAILY DIABETES 09/09/24 Unknown History mL) subcutaneous pen Allergy/AdvReac Type Severity Reaction Status Date / Time doxycycline Allergy hives Verified 07/29/24 10:37 Iodinated Contrast Media AdvReac Severe unresponsiv Verified 07/29/24 10:37 (contrast dye - iodinated) e Family History Father CAD (coronary artery disease) Hx CABG x4 vessels Myocardial infarction, Onset Age: 50 Mother Breast cancer Other Acute on chronic diastolic (congestive) heart failure Surgical History History of thoracentesis History of coronary artery stent placement Hx of colonoscopy History of left heart catheterization (09/22/18) History of mitral valve replacement with bioprosthetic valve (09/26/18) History of coronary artery stent placement (09/06/23) Social History Smoking Status: Former smoker how long ago did patient quit smokin alcohol intake: current Alcohol type: beer substance use type: does not use caffeine: Yes Type: coffee what type of physical activity do you participate in: other details: occasional rowing machine, biking frequency: other details: occasional rowing machine, biking duration: other details: occasional rowing machine, biking seatbelt use: always do you feel safe at home: Yes ROS ROS ED Review of Systems ROS Unobtainable: other Constitutional Constitutional ED: Reports lethargy; Denies chills, fever(s), sweats or weight loss Eyes Eyes: Denies blurry vision, change in vision or diplopia ENT ENT ED: Denies rhinorrhea or sore throat Cardiovascular Cardiovascular: Denies chest pain, orthopnea or racing heartbeat Respiratory/Chest Respiratory/Chest: Denies cough, dyspnea, dyspnea on exertion, orthopnea or sputum Gastrointestinal Gastrointestinal: Reports abdominal pain and melena; Denies diarrhea, nausea or vomiting Genitourinary Genitourinary ED: Reports other Details: Difficulty starting urine stream ; Denies dysuria, hematuria or urinary frequency Musculoskeletal Musculoskeletal: Denies arthralgias, back pain, myalgias or neck pain Integumentary Denies abscess, Abrasions or rash Neurologic Neurologic: Reports other Details: Lightheadedness ; Denies headache(s) or weakness Psychiatric Psychiatric: Denies anxiety, depression or suicidal thoughts Endocrine Endocrinology: Denies polydipsia, polyphagia or polyuria Hematologic/Lymphatic Hematologic/Lymphatic: Denies easy bleeding, easy bruising or lymphadenopathy Allergic/Immunologic Allergic/Immunologic ED: Denies mouth swelling, tongue swelling or urticaria EXAM Physical Exam Const Vital Signs: 09/09/24 06:35 09/09/24 06:42 09/09/24 07:42 Temperature 98.1 F 98.1 F 98.3 F Temperature Source Oral Oral Oral Pulse Rate 89 88 80 Respiratory Rate 16 16 19 H Blood Pressure 124/56 H 124/56 H 113/47 L Blood Pressure Mean 78 78 69 Pulse Ox 98 98 97 Oxygen Delivery Method Room Air Room Air Room Air Positive well nourished and well developed General Appearance ED: well developed and NAD HEENT Reports TM's clear and moist mucous membranes normocephalic and atraumatic; Negative for trauma or tenderness Tympanic Membrane ED: Yes TM's clear Eyes PERRL and EOMs intact bilaterally General Eye ED: Negative for pale conjunctiva or scleral icterus Neck no lymphadenopathy, supple and no JVD General: Negative for tenderness Chest Wall inspection of chest normal and palpation of chest normal Chest: Negative for tenderness Resp normal respiratory effort and clear to auscultation bilaterally Effort and Inspection: Negative for respiratory distress or pain with movement Auscultation: Negative for rhonchi, wheezes or diminished lung sounds Cardio regular rate, regular rhythm, S1 normal heart sound, S2 normal heart sound and no murmurs Peripheral Pulses: pulses 2+ throughout GI normal to inspection, nondistended, normoactive bowel sounds, soft to palpation, non-distended and no masses GI Narrative: Tenderness palpation over left lower quadrant with some mild guarding. There is no rebound, rigidity, or purulent signs. No mass palpated. Back/Spine no CVA tenderness and no thoracic nor lumbar tenderness Extremity normal to inspection General Extremety ED: Negative for edema General Extremity: Negative for edema Neuro oriented x3, CN's II-XII intact bilaterally, no sensory deficits noted and gait normal Sensorium / Orientation: awake, alert, oriented to person, oriented to place and oriented to time Motor Exam: strength 5/5 throughout and strength abnormal Psych mental status grossly normal Skin no rashes or lesions noted and no wounds MDM MDM MDM Narrative Medical decision making narrative: Patient presents with dizziness and abdominal pain as well as black stools. Last time this happened he required transfusion. IV line established. He was ordered a liter fluid bolus. CBC with differential white count of 5.5 with hemoglobin 6.6 and platelet count of 186. Chemistries with sodium 134 and potassium of 6.0. BUN 85 and creatinine 2.49. LFTs unremarkable. CT scan of the abdomen pelvis showed a right pleural effusion and diverticulosis without diverticulitis otherwise nothing significant. 1 view chest x-ray showed a right pleural effusion. Patient was typed and crossed for 2 units packed red cells. Rectal exam performed did show black stool and Hemoccult is pending. I did type and cross patient for 2 units of packed red cells. Discussed case with hospitalist Dr. Filemon Desouza who will evaluate patient for admission. I did discuss hyperkalemia with Dr. Filemon Ross who will repeat the potassium level in 3 hours and does not currently want to treated as he has no hyperkalemic changes on EKG. Lab Data Attestation: I reviewed the patient's lab results. Labs: Laboratory Results - last 24 hr 09/09/24 07:20 WBC 5.5 RBC 2.61 L Hgb 6.6 L Hct 21.6 L MCV 82.8 MCH 25.3 L MCHC 30.6 L RDW Std Deviation 57.3 H RDW Coeff of Ngoc 19.2 H Plt Count 186 MPV 10.2 Immature Gran % (Auto) 0.900 Neut % (Auto) 78.3 H Lymph % (Auto) 10.0 L [place] % (Auto) 9.7 Eos % (Auto) 0.7 Baso % (Auto) 0.4 Absolute Neuts (auto) 4.3 Absolute Lymphs (auto) 0.55 L Nucleated RBC % 0 Sodium 134 L Potassium 6.0 H* Chloride 108 H Carbon Dioxide 19.0 L Anion Gap 7 BUN 85 H Creatinine 2.49 H Estim Creat Clear Calc 26.46 Est GFR (MDRD) Af Amer 33 L Est GFR (MDRD) Non-Af 27 L BUN/Creatinine Ratio 34.1 H Glucose 150 H Lactic Acid 1.5 Calcium 8.6 Total Bilirubin 0.30 AST 15 ALT 17 Alkaline Phosphatase 104 Troponin I High Sens 51 Total Protein 7.6 Albumin 3.0 L Globulin 4.6 H Albumin/Globulin Ratio 0.7 L Radiography Diagnostic Testing: Clinical Impression(s) from Imaging Studies Abdomen/Pelvis CT 09/09/24 07:11 IMPRESSION: 1. Colonic diverticulosis without evidence of acute diverticulitis. 2. Cholelithiasis. 3. Large right pleural effusion with compressive atelectasis right middle lobe and right lower lobe. Cannot exclude underlying pulmonary mass. Follow-up CT chest recommended to exclude mass. Electronically Signed: Norma Mccloud MD at 7:53 EST Reading Location ID and State: [address] [place] [address] Tel , Service support , 1 view chest x-ray obtained interpreted by myself as right pleural effusion with no evidence of pneumothorax or other acute disease process. EKG Initial EKG: Attestation: I personally reviewed and interpreted this EKG as follows: Comments: Sinus rhythm with rate of [address] changes Prior EKG tracings: available for review Prior: Unchanged Discharge Plan Triage Chief Complaint: Dizziness ED Provider: Gregorio Velazquez Dx/Rx/DC Orders Clinical Impression: Acute upper GI bleed, Pleural effusion on right, Anemia, Acute hyperkalemia, Renal insufficiency Prescriptions: No Action amlodipine 10 mg tablet 10 mg PO DAILY Qty: 90 3RF cyanocobalamin (vitamin B-12) 1,000 mcg/mL kit 1,000 mcg subcut QMONTH Patient Comments: PATIENT INJECTS THIS ONCE A MONTH ON THE . multivitamin Tablet 1 tab PO DAILY Jardiance 25 mg tablet 25 mg PO DAILY Rx Instructions: Will start when current supply of farxiga is finished ferrous sulfate 325 mg (65 mg iron) tablet 325 mg PO DAILY Rx Instructions: 2 tabs daily spironolactone 50 mg tablet 50 mg PO QAM Qty: 60 3RF atorvastatin 40 mg Tablet 40 mg PO QHS 30 Days Qty: 30 0RF aspirin 81 mg Tablet,Delayed Release (Dr/Ec) 81 mg PO DAILY 30 Days Qty: 30 0RF insulin aspart U-100 100 unit/mL (3 mL) insulin pen 14 unit subcut TIDCM Rx Instructions: Hold if glucose less than 130 mg/dl insulin glargine 100 unit/mL (3 mL) insulin pen 38 unit subcut DAILY pantoprazole 40 mg Tablet,Delayed Release (Dr/Ec) 40 mg PO BID 30 Days Qty: 60 2RF furosemide 40 mg tablet 40 mg PO DAILY clopidogrel [Plavix] 75 mg tablet 75 mg PO QDAY Qty: 90 3RF lactulose 10 gram/15 mL solution 20 g PO TID Qty: 3785 3RF Primary Care Provider: Angie Cheng Referrals: Angie Cheng, [facility] [Primary Care Provider] - Print Language: [place] Disposition Disposition: Acute Care Hospital [facility]
[2024-09-09] MEDS: 0.9% Normal Saline (1000mL) 1,000 ML 999 ML IV (07:25)
[2024-09-09 07:33] LABS: Absolute Lymphocyte Count 0.55 X10^3/uL (0.83-4.51); Absolute Neutrophil Count 4.3 X10^3/uL (2.0-7.7); Basophil# 0.02 X10^3/uL; Basophil% 0.4 % (0-1); Eosinophil# 0.04 X10^3/uL; Eosinophils% 0.7 % (0-5); Hematocrit 21.6 % (40-54); Hemoglobin 6.6 g/dL (13.0-16.5); Lymphocyte # 0.55 X10^3/ul (0.83-4.51); Mean Corp Hgb Conc 30.6 g/dL (32-36); Mean Corpuscular Hgb 25.3 pg (27.0-32.0); Mean Corpuscular Volume 82.8 fL (80-94); Mean Platelet Vol. 10.2 fl (6.2-12.0); Monocyte# 0.53 X10^3/uL; Monocyte% 9.7 % (0-10); NRBC Flagged by Analyzer 0 % (0-5); Neutrophil # 4.29 X10^3/uL (2.7-7.7); Neutrophil % 78.3 % (47-70); POSITIVE DIFFERENTIAL YES; Platelet Count 186 K/mm3 (150-450); RBC Distribution Width CV 19.2 % (11.6-14.6); RBC Distribution Width SD 57.3 fl (35.1-43.9); Red Blood Count 2.61 M/mm3 (4.6-6.2); White Blood Count 5.5 K/mm3 (4.4-11.0)
[2024-09-09 07:54] LABS: ALB/GLOB Ratio 0.7 RATIO (0.9-2.4); AST(SGOT) 15 U/L (15-37); Alanine Aminotransfer ALT/SGPT 17 U/L (16-61); Alkaline Phosphatase 104 U/L (45-117); Anion Gap 7 (5-15); BUN 85 mg/dL (7-18); BUN/Creat Ratio 34.1 RATIO (10-20); Calcium,Total 8.6 mg/dL (8.5-10.1); Chloride 108 mmol/L (98-107); Creatinine, Serum 2.49 mg/dL (0.70-1.30); EST Glomerular Filtration Rate 27 mL/min (>60); Est Glom Filt Rate - Afr Amer 33 mL/min (>60); Estimated Creatinine Clearance 26.46 ml/min; Globulin 4.6 g/dL (2.2-4.2); Glucose 150 mg/dL (74-106); Lactic Acid 1.5 mmol/L (0.4-1.9); Protein, Total 7.6 g/dL (6.4-8.2); Sodium Level 134 mmol/L (136-145); Troponin-I HS 51 pg/mL (3.0-78.0)
[2024-09-09 11:24] LABS: Anion Gap 5 (5-15); BUN 84 mg/dL (7-18); BUN/Creat Ratio 34.4 RATIO (10-20); Calcium,Total 8.6 mg/dL (8.5-10.1); Chloride 108 mmol/L (98-107); Creatinine, Serum 2.44 mg/dL (0.70-1.30); EST Glomerular Filtration Rate 28 mL/min (>60); Est Glom Filt Rate - Afr Amer 33 mL/min (>60); Glucose 183 mg/dL (74-106); Potassium 6.6 mmol/L (3.5-5.1); Sodium Level 134 mmol/L (136-145)
[2024-09-09] MEDS: Furosemide 40 MG Tablet PO (11:38)
[2024-09-09] MEDS: amLODIPine 10 MG Tablet PO (11:39)
[2024-09-09] MEDS: Empagliflozin 25 MG Tablet PO (11:39)
[2024-09-09] MEDS: Octreotide 0.5 MG in Dextrose 5%-Water (250mL Bag) 250 ML 12.5 MG CONT INF (12:15)
[2024-09-09] MEDS: Pantoprazole Sodium 80 MG in 0.9% Normal Saline (100mL Bag) 80 ML 10 MG CONT INF ×2 (12:17→23:03)
[2024-09-09] MEDS: Sodium Polystyrene Sulfonate 15 GM/60 ML UDC 30 GM PO (12:27)
[2024-09-09] MEDS: Ceftriaxone 1 GM/50 ML BAG IV (16:21)
[2024-09-09 17:07] LABS: Hematocrit 29.6 % (40-54); Hemoglobin 9.2 g/dL (13.0-16.5)
--- NOTE | 2024-09-09 17:42 | CON.PCM.GI_ITS ---
HPI Consult Data Date of Consult: 09/10/24 HPI Narrative HPI Narrative: LOVE PHELAN, is a 79 M who presents the emergency department with complaint of abdominal pain and lightheadedness. Symptoms started last evening. Patient also had discomfort of his right shoulder since last night. Denies any trauma. He denies chest pain. He denies shortness of breath. Patient tells me last time he felt like this he was admitted because his hemoglobin dropped to 6 and required blood transfusion. Patient stated he had anemia and bleed after the carotid surgery/CVA in April 2024 and had cardiac resuscitation with CPR. He also had thoracocentesis 2-3 times in the past. 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 I saw him in consultation for anemia on last admission. His hemoglobin was 6.7 at that time. Patient had EGD on 07/14. EGD findings discussed with the patient, his and daughter near the bedside. Overall suggestive of IGV, PHG and esophageal varices. Therefore we recommended workup increased portal hypertension. Multiple differential diagnoses were discussed including causes include perihepatic, hepatic or posthepatic portal hypertension. The patient denies history of chronic liver disease. Right upper quadrant sonogram ordered. Advised to follow-up in GI clinic On findings from his upper endoscopy : - Grade I esophageal varices. - Portal hypertensive gastropathy. Biopsied. 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 - Non-bleeding gastric ulcers with no stigmata of bleeding. - No gross lesions in the first portion of the duodenum. - Chronic liver disease workup Recommendations : - [facility]. - Resume regular diet. - Continue present medications. - Await pathology results. - Use Protonix (pantoprazole) 40 mg PO BID. - Hose Wrapper recommended to resume Plavix when okay with GI. We recommended to continue holding baby aspirin. [place] was resumed. He was also discovered to have a Right pleural effusion. He underwent a right-sided thoracocentesis ordered with fluid analysis tests as per lights criteria. Patient had 1800 mL clear reddish fluid was drained. 100 mL was sent for collection. As per lights criteria fluid is exudative primarily from diuretic. Thoracic fluid culture no growth. [facility] Medical History Alcohol use Thyroid nodule Insulin dependent diabetes mellitus Diabetes History of renal disease Dietary restriction History of stress test Wears glasses Wears partial dentures Gout Low iron Shortness of breath on exertion Former smoker History of echocardiogram Cardiology follow-up encounter History of heart attack Acute on chronic diastolic (congestive) heart failure Non-rheumatic mitral regurgitation Essential (primary) hypertension Diabetes mellitus type II, controlled Hyperlipidemia Atherosclerotic 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[place] coronary artery without angina pectoris (09/06/23) Ischemic cardiomyopathy Occlusion and stenosis of right carotid artery Home Medications ?Medication ?Instructions ?Recorded ?Last Taken ?Type amlodipine 10 mg tablet 10 mg PO DAILY BLOOD PRESSURE #90 07/11/21 09/03/23 Rx tabs cyanocobalamin (vitamin B-12) 1,000 mcg subcut QMONTH SUPPLEMENT 07/10/22 09/11/22 History 1,000 mcg/mL injection kit multivitamin 1 tab PO DAILY SUPPLEMENT 07/23/23 09/02/23 History aspirin 81 mg tablet,delayed 81 mg PO DAILY HEART HEALTH 30 09/07/23 05/19/24 Rx release days #30 tabs atorvastatin 40 mg tablet 40 mg PO QHS CHOLESTEROL 30 days 09/07/23 Unknown Rx #30 tabs furosemide 40 mg tablet 40 mg PO DAILY FLUID 10/02/23 Unknown History empagliflozin 25 mg tablet 25 mg PO DAILY DIABETES 01/20/24 Unknown History (Jardiance) clopidogrel 75 mg tablet (Plavix) 75 mg PO QDAY BLOOD THINNER #90 04/06/24 05/19/24 Rx tabs ferrous sulfate 325 mg (65 mg 325 mg PO DAILY Anemia 06/16/24 07/14/24 History iron) tablet pantoprazole 40 mg tablet,delayed 40 mg PO BID 30 days #60 tabs 07/16/24 Unknown Rx release spironolactone 50 mg tablet 50 mg PO QAM #60 tabs 08/13/24 Unknown Rx lactulose 10 gram/15 mL oral 20 g (30 mL) PO TID #3,785 mL 08/20/24 Unknown Rx solution insulin aspart U-100 100 unit/mL 14 unit subcut TIDCM DIABETES 09/09/24 Unknown History (3 mL) subcutaneous pen insulin glargine 100 unit/mL (3 38 unit subcut DAILY DIABETES 09/09/24 Unknown History mL) subcutaneous pen Allergy/AdvReac Type Severity Reaction Status Date / Time doxycycline Allergy hives Verified 07/29/24 10:37 Iodinated Contrast Media AdvReac Severe unresponsiv Verified 07/29/24 10:37 (contrast dye - iodinated) e Family History Father CAD (coronary artery disease) Hx CABG x4 vessels Myocardial infarction, Onset Age: 50 Mother Breast cancer Other Acute on chronic diastolic (congestive) heart failure Surgical History History of thoracentesis History of coronary artery stent placement Hx of colonoscopy History of left heart catheterization (09/22/18) History of mitral valve replacement with bioprosthetic valve (09/26/18) History of coronary artery stent placement (09/06/23) Social History Smoking Status: Former smoker how long ago did patient quit smokin alcohol intake: current Alcohol type: beer substance use type: does not use caffeine: Yes Type: coffee what type of physical activity do you participate in: other details: occasional rowing machine, biking frequency: other details: occasional rowing machine, biking duration: other details: occasional rowing machine, biking seatbelt use: always do you feel safe at home: Yes ROS Constitutional Constitutional: Reports fatigue, malaise and weakness; Denies anorexia, change in weight, chills, fever(s), night sweats or other Eyes Eyes: Denies blurry vision, change in eye color, change in vision, discharge from eye(s), double vision, erythema, eye pain, loss of vision or other ENT HEENT: Denies abnormal hearing, dysphagia, ear pain, epistaxis, headache(s), hearing loss, nasal congestion, nasal discharge, post nasal drip, sinus pressure, sore throat or other Cardiovascular Cardiovascular: Reports dyspnea on exertion, lightheadedness and other Details: Presyncope ; Denies chest pain, claudication, edema, orthopnea, palpitations, paroxysmal nocturnal dyspnea, rapid heart rate or syncope Respiratory/Chest Respiratory/Chest: Denies cough, dyspnea, excessive phlegm production, hemoptysis, productive cough, shortness of breath at rest, shortness of breath with exertion, wheezing or other Gastrointestinal Gastrointestinal: Denies abdominal pain, coffee ground emesis, constipation, diarrhea, dyspepsia, hematemesis, hematochezia, loose stools, melena, nausea, vomiting or other Genitourinary Genitourinary: Denies burning urination, difficulty urinating, dysuria, hematuria, nocturia, urinary frequency, urinary hesitancy, urinary incontinence, urinary urgency or other Musculoskeletal Musculoskeletal: Reports joint pain and joint stiffness; Denies arthralgias, back pain, joint swelling, myalgias, neck pain or other Neurologic Neurologic: Denies abnormal gait, abnormal speech, confusion, disequilibrium, dizziness, focal weakness, headache(s), numbness, paresthesias, seizure-like activity, seizures, syncope, tingling, tremor(s) or other Psychiatric Psychiatric: Denies anxiety, depression, homicidal ideation, suicidal ideation or other Endocrine Endocrinology: Denies change in body appearance, cold intolerance, excessive sweating, heat intolerance, polydipsia, polyuria or other Hematologic/Lymphatic Hematologic/Lymphatic: Denies anemia, easy bleeding, easy bruising, lymphadenopathy or other Allergic/Immunologic Allergic/Immunologic: Denies rhinitis, hives, eczemia, asthma or other Physical Exam Narrative Seen and examined. Patient is stated he did not had bowel movement. MiraLAX 17 g twice daily ordered. On senna S2 tablet twice daily as needed, changed to scheduled Physical exam General: Alert, Oriented x3, Cooperative, fatigue HEENT: Atraumatic, PERRLA, EOMI, Normocephalic Oral: No Gingival or Mucosal Lesions/ Ulcerations Neck: Supple, No JVD, Negative Carotid Bruits Chest wall/Lungs: No chest wall tenderness air entry on right side improved after right thoracocentesis, 1300 mL. AE decreased on lung bases Cardiovascular: Sinus Rhythm, Normal S1, Normal S2, subtle systolic murmur over cardiac Abdomen: Bowel Sounds Present, Soft, Non Tender, Non-Distended : No dysuria. No renal angle tenderness. No suprapubic tenderness. Extremities: Mild bilateral pitting edema, no change capillary Refill Less than 3 Seconds Skin: No rashes, No breakdown Musculoskeletal: No Tenderness to Palpation of Joints or Extremities Neurological: Cranial nerves II-XII grossly intact, DTR 2+/4. No acute focal neurological deficit. Psych/Mental Status: Normal Affect, Appropriate. Lab / Micro Data 09/10/24 05:18 09/10/24 01:10 Labs: Laboratory Results - last 24 hr 09/09/24 07:20: WBC 5.5, RBC 2.61 L, Hgb 6.6 L, Hct 21.6 L, MCV 82.8, MCH 25.3 L , MCHC 30.6 L, RDW Std Deviation 57.3 H, RDW Coeff of Ngoc 19.2 H, Plt Count 186, MPV 10.2, Immature Gran % (Auto) 0.900, Neut % (Auto) 78.3 H, Lymph % (Auto) 10.0 L, [place] % (Auto) 9.7, Eos % (Auto) 0.7, Baso % (Auto) 0.4, Absolute Neuts (auto) 4.3, Absolute Lymphs (auto) 0.55 L, Nucleated RBC % 0, Sodium 134 L, P otassium 6.0 H*, Chloride 108 H, Carbon Dioxide 19.0 L, Anion Gap 7, BUN 85 H, C reatinine 2.49 H, Estim Creat Clear Calc 26.46, Est GFR (MDRD) Af Amer 33 L, Est GFR (MDRD) Non-Af 27 L, BUN/Creatinine Ratio 34.1 H, Glucose 150 H, Lactic Acid 1.5, Calcium 8.6, Total Bilirubin 0.30, AST 15, ALT 17, Alkaline Phosphatase 104, Troponin I High Sens 51, Total Protein 7.6, Albumin 3.0 L, Globulin 4.6 H, Albumin/Globulin Ratio 0.7 L, Blood Type B POSITIVE, Antibody Screen NEGATIVE, Crossmatch See Detail 09/09/24 10:40: Sodium 134 L, Potassium 6.6 H*, Chloride 108 H, Carbon Dioxide 20.0 L, Anion Gap 5, BUN 84 H, Creatinine 2.44 H, Estim Creat Clear Calc 27.00, Est GFR (MDRD) Af Amer 33 L, Est GFR (MDRD) Non-Af 28 L, BUN/Creatinine Ratio 34.4 H, Glucose 183 H, Calcium 8.6 09/09/24 16:50: Hgb 9.2 L, Hct 29.6 L Micro: Microbiology 09/09/24 07:46 Stool Stool Occult Blood ([facility]) - Final Imaging Radiology Impression Chest X-Ray 09/09/24 07:09 IMPRESSION: Moderate right pleural effusion with atelectasis or consolidation in the right lung base, increased from prior. Electronically Signed: Lexi Eckert MD at 8:04 EST , Abdomen/Pelvis CT 09/09/24 07:11 IMPRESSION: 1. Colonic diverticulosis without evidence of acute diverticulitis. 2. Cholelithiasis. 3. Large right pleural effusion with compressive atelectasis right middle lobe and right lower lobe. Cannot exclude underlying pulmonary mass. Follow-up CT chest recommended to exclude mass. Electronically Signed: Norma Mccloud MD at 7:53 EST , Assessment & Plan Assessment/Plan (1) Acute non-ST elevation myocardial infarction (NSTEMI): PLAN: 79-year-old gentleman with multiple comorbidities was admitted for acute blood loss anemia on iron supplement with history of chronic anemia Patient stated he had anemia and bleed after the carotid surgery/CVA in April 2024 and had cardiac resuscitation with CPR. He also had thoracocentesis 2-3 times in the past. 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 He had a non-ST segment elevation [place] on last admission. Cardiology is said that this was most probably secondary to demand ischemia with his severe blood loss anemia superimposed upon his severe CAD with chronic total occlusion of the RCA. (2) CAD (coronary artery disease): PLAN: History of stent to the LAD in August of last year. Also noted to have chronic total occlusion of the right coronary artery. Holding antiplatelet medications because of his acute blood loss anemia. EGD findings noted. He was discharged on Plavix. (3) ABLA (acute blood loss anemia): PLAN: He will need a repeat upper endoscopy to evaluate his upper GI tract for any stigmata bleeding. (4) Carotid artery disease: QUALIFIERS: Carotid artery disease type: stenosis [facility] Qualified Code(s): I65.21 - Occlusion and stenosis of right carotid artery PLAN: Status post right carotid endarterectomy. (5) Diabetes: (6) Acute upper gastrointestinal bleeding: PLAN: Plan - On PPI drip. Plan for EGD tomorrow. Charges/Coding Visit Charges Inpatient E&M: 26546 Init Hosp L3
--- NOTE | 2024-09-09 18:57 | PCM.HP.STD ---
HPI - General General Date of Admission: 09/09/24 Date of Service: 09/09/24 Chief Complaint: Abdominal pain, lightheadedness, weakness HPI Narrative LOVE PHELAN, is a 79 M who presents to the emergency room at [facility] with complaints of generalized upper abdominal pain and lightheadedness. Patient stated that the symptoms started last evening. Patient stated that the last time he had similar episodes he was admitted to the hospital for an anemia and underwent endoscopy. Patient does take iron at home, he has been aware that his stools been black but feels it may be a consequence of his iron usage. Patient also complains of some left lower quadrant abdominal discomfort but this is minor. Labs obtained showed a normal white blood cell count at 5.5, hemoglobin was 6.6, sodium was 134, potassium was 6, creatinine was 2.49 [address] BUN was 85. CT of the abdomen pelvis revealed cholelithiasis, there was noted to be a large right pleural effusion with compressive atelectasis in the right middle lobe and right lower lobe. Colonic diverticulosis was noted without diverticulitis. EKG showed normal sinus rhythm without evidence of ischemic changes. Patient did not require supplemental oxygen in the emergency room. Patient will be admitted to PCU for acute GI bleed and acute blood loss anemia. Patient was typed and crossed for 2 units of packed red blood cells and these were ordered to be transfused. Patient also has a right pleural effusion and will need to undergo a right thoracentesis, he is on Plavix and aspirin however so interventional radiology felt it would be better to wait for him to undergo a thoracentesis. I talked with gastroenterology briefly, the plan is for the patient to undergo upper endoscopy tomorrow. Hemoglobins will be monitored on the floor. Patient was placed on an octreotide drip and Protonix drip. Patient was also placed on IV Rocephin. Patient has a past history of esophageal varices that were noted during his last admission but these were not bleeding. [facility]LY [facility] Medical History Alcohol use Thyroid nodule Insulin dependent diabetes mellitus Diabetes History of renal disease Dietary restriction History of stress test Wears glasses Wears partial dentures Gout Low iron Shortness of breath on exertion Former smoker History of echocardiogram Cardiology follow-up encounter History of heart attack Acute on chronic diastolic (congestive) heart failure Non-rheumatic mitral regurgitation Essential (primary) hypertension Diabetes mellitus type II, controlled Hyperlipidemia Atherosclerotic 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[place] coronary artery without angina pectoris (09/06/23) Ischemic cardiomyopathy Occlusion and stenosis of right carotid artery Home Medications ?Medication ?Instructions ?Recorded ?Last Taken ?Type amlodipine 10 mg tablet 10 mg PO DAILY BLOOD PRESSURE #90 07/11/21 09/03/23 Rx tabs cyanocobalamin (vitamin B-12) 1,000 mcg subcut QMONTH SUPPLEMENT 07/10/22 09/11/22 History 1,000 mcg/mL injection kit multivitamin 1 tab PO DAILY SUPPLEMENT 07/23/23 09/02/23 History aspirin 81 mg tablet,delayed 81 mg PO DAILY HEART HEALTH 30 09/07/23 05/19/24 Rx release days #30 tabs atorvastatin 40 mg tablet 40 mg PO QHS CHOLESTEROL 30 days 09/07/23 Unknown Rx #30 tabs furosemide 40 mg tablet 40 mg PO DAILY FLUID 10/02/23 Unknown History empagliflozin 25 mg tablet 25 mg PO DAILY DIABETES 01/20/24 Unknown History (Jardiance) clopidogrel 75 mg tablet (Plavix) 75 mg PO QDAY BLOOD THINNER #90 04/06/24 05/19/24 Rx tabs ferrous sulfate 325 mg (65 mg 325 mg PO DAILY Anemia 06/16/24 07/14/24 History iron) tablet pantoprazole 40 mg tablet,delayed 40 mg PO BID 30 days #60 tabs 07/16/24 Unknown Rx release spironolactone 50 mg tablet 50 mg PO QAM #60 tabs 08/13/24 Unknown Rx lactulose 10 gram/15 mL oral 20 g (30 mL) PO TID #3,785 mL 08/20/24 Unknown Rx solution insulin aspart U-100 100 unit/mL 14 unit subcut TIDCM DIABETES 09/09/24 Unknown History (3 mL) subcutaneous pen insulin glargine 100 unit/mL (3 38 unit subcut DAILY DIABETES 09/09/24 Unknown History mL) subcutaneous pen Allergy/AdvReac Type Severity Reaction Status Date / Time doxycycline Allergy hives Verified 07/29/24 10:37 Iodinated Contrast Media AdvReac Severe unresponsiv Verified 07/29/24 10:37 (contrast dye - iodinated) e Family History Father CAD (coronary artery disease) Hx CABG x4 vessels Myocardial infarction, Onset Age: 50 Mother Breast cancer Other Acute on chronic diastolic (congestive) heart failure Surgical History History of thoracentesis History of coronary artery stent placement Hx of colonoscopy History of left heart catheterization (09/22/18) History of mitral valve replacement with bioprosthetic valve (09/26/18) History of coronary artery stent placement (09/06/23) Social History Smoking Status: Former smoker how long ago did patient quit smokin alcohol intake: current Alcohol type: beer substance use type: does not use caffeine: Yes Type: coffee what type of physical activity do you participate in: other details: occasional rowing machine, biking frequency: other details: occasional rowing machine, biking duration: other details: occasional rowing machine, biking seatbelt use: always do you feel safe at home: Yes ROS Constitutional Constitutional: Reports weakness; Denies anorexia, change in weight, fever(s) or night sweats Eyes Eyes: Denies blurry vision, change in vision, discharge from eye(s) or eye pain Cardiovascular Cardiovascular: Reports lightheadedness; Denies chest pain, claudication, edema or palpitations Respiratory/Chest Respiratory/Chest: Denies cough, hemoptysis, shortness of breath at rest or shortness of breath with exertion Gastrointestinal Gastrointestinal: Reports abdominal pain and melena; Denies constipation, diarrhea, hematemesis, hematochezia, nausea or vomiting Genitourinary Genitourinary: Denies dysuria, hematuria, urinary frequency, urinary hesitancy, urinary incontinence or urinary urgency Musculoskeletal Musculoskeletal: Denies back pain, joint pain, joint stiffness, joint swelling, myalgias or neck pain Neurologic Neurologic: Denies abnormal gait, abnormal speech, dizziness, focal weakness, headache(s), loss of vision, numbness, other visual disturbances, paresthesias, syncope or tingling Psychiatric Psychiatric: Denies anxiety, cognitive impairment, depression, irritability, mood swings or suicidal ideation Endocrine Endocrinology: Denies change in body appearance, cold intolerance, excessive sweating, heat intolerance, polydipsia or polyuria Hematologic/Lymphatic Hematologic/Lymphatic: Denies none, anemia, easy bleeding, easy bruising or lymphadenopathy Allergic/Immunologic Allergic/Immunologic: Denies rhinitis, urticaria, eczemia or asthma Vital Signs Vital Signs Vital Signs: 09/09/24 06:35 09/09/24 06:42 09/09/24 07:42 Temperature 98.1 F 98.1 F 98.3 F Temperature Source Oral Oral Oral Pulse Rate 89 88 80 Pulse Rate [Lying] Pulse Rate [Sitting (for 1 minute prior to obtaining)] Pulse Rate [Standing (for 1 minute prior to obtaining)] Respiratory Rate 16 16 19 H Blood Pressure 124/56 H 124/56 H 113/47 L Blood Pressure [Lying] Blood Pressure [Sitting (for 1 minute prior to obtaining)] Blood Pressure [Standing (for 1 minute prior to obtaining)] Blood Pressure Mean 78 78 69 Blood Pressure Mean [Lying] Blood Pressure Mean [Sitting (for 1 minute prior to obtaining)] Blood Pressure Mean [Standing (for 1 minute prior to obtaining)] Blood Pressure Source Blood Pressure Position Blood Pressure Location Pulse Ox 98 98 97 Oxygen Delivery Method Room Air Room Air Room Air 09/09/24 08:00 09/09/24 08:10 09/09/24 08:17 Temperature 98.3 F 98.2 F Temperature Source Oral Pulse Rate 77 80 Pulse Rate [Lying] 78 Pulse Rate [Sitting (for 1 minute prior to obtaining)] 78 Pulse Rate [Standing (for 1 minute prior to obtaining)] 78 Respiratory Rate 18 16 Blood Pressure 101/48 L 101/48 L Blood Pressure [Lying] 116/53 L Blood Pressure [Sitting (for 1 minute prior to obtaining)] 105/49 L Blood Pressure [Standing (for 1 minute prior to obtaining)] 98/40 L Blood Pressure Mean 65 65 Blood Pressure Mean [Lying] 74 Blood Pressure Mean [Sitting (for 1 minute prior to obtaining)] 67 Blood Pressure Mean [Standing (for 1 minute prior to obtaining)] 59 Blood Pressure Source Blood Pressure Position Blood Pressure Location Pulse Ox 97 98 Oxygen Delivery Method Room Air 09/09/24 08:47 09/09/24 09:00 09/09/24 09:12 Temperature 98.0 F 97.5 F L 97.5 F L Temperature Source Oral Oral Oral Pulse Rate 76 78 77 Pulse Rate [Lying] Pulse Rate [Sitting (for 1 minute prior to obtaining)] Pulse Rate [Standing (for 1 minute prior to obtaining)] Respiratory Rate 16 16 17 Blood Pressure 105/53 L 135/101 H 112/85 H Blood Pressure [Lying] Blood Pressure [Sitting (for 1 minute prior to obtaining)] Blood Pressure [Standing (for 1 minute prior to obtaining)] Blood Pressure Mean 70 112 94 Blood Pressure Mean [Lying] Blood Pressure Mean [Sitting (for 1 minute prior to obtaining)] Blood Pressure Mean [Standing (for 1 minute prior to obtaining)] Blood Pressure Source Monitor Monitor Blood Pressure Position Semi-Fowlers Sitting Blood Pressure Location Right Arm Right Arm Pulse Ox 97 99 100 Oxygen Delivery Method Room Air Room Air Room Air 09/09/24 09:27 09/09/24 10:00 09/09/24 10:27 Temperature 97.6 F L 97.7 F L Temperature Source Oral Oral Pulse Rate 82 73 Pulse Rate [Lying] Pulse Rate [Sitting (for 1 minute prior to obtaining)] Pulse Rate [Standing (for 1 minute prior to obtaining)] Respiratory Rate 17 16 Blood Pressure 105/56 L 121/56 H Blood Pressure [Lying] Blood Pressure [Sitting (for 1 minute prior to obtaining)] Blood Pressure [Standing (for 1 minute prior to obtaining)] Blood Pressure Mean 72 77 Blood Pressure Mean [Lying] Blood Pressure Mean [Sitting (for 1 minute prior to obtaining)] Blood Pressure Mean [Standing (for 1 minute prior to obtaining)] Blood Pressure Source Monitor Monitor Blood Pressure Position Sitting Semi-Fowlers Blood Pressure Location Left Arm Left Arm Pulse Ox 100 100 Oxygen Delivery Method Room Air Room Air Room Air 09/09/24 11:27 09/09/24 12:27 09/09/24 12:42 Temperature 98.0 F 97.0 F L 97.0 F L Temperature Source Oral Axillary Axillary Pulse Rate 76 77 73 Pulse Rate [Lying] Pulse Rate [Sitting (for 1 minute prior to obtaining)] Pulse Rate [Standing (for 1 minute prior to obtaining)] Respiratory Rate 16 16 16 Blood Pressure 131/60 H 132/61 H 132/61 H Blood Pressure [Lying] Blood Pressure [Sitting (for 1 minute prior to obtaining)] Blood Pressure [Standing (for 1 minute prior to obtaining)] Blood Pressure Mean 83 84 84 Blood Pressure Mean [Lying] Blood Pressure Mean [Sitting (for 1 minute prior to obtaining)] Blood Pressure Mean [Standing (for 1 minute prior to obtaining)] Blood Pressure Source Monitor Monitor Monitor Blood Pressure Position Semi-Fowlers Supine Semi-Fowlers Blood Pressure Location Left Arm Right Arm Right Arm Pulse Ox 100 99 100 Oxygen Delivery Method Room Air Room Air Room Air 09/09/24 12:42 09/09/24 12:57 09/09/24 13:57 Temperature 97.0 F L 97.0 F L 97.4 F L Temperature Source Axillary Oral Oral Pulse Rate 74 74 77 Pulse Rate [Lying] Pulse Rate [Sitting (for 1 minute prior to obtaining)] Pulse Rate [Standing (for 1 minute prior to obtaining)] Respiratory Rate 16 16 17 Blood Pressure 132/61 H 130/59 H 139/61 H Blood Pressure [Lying] Blood Pressure [Sitting (for 1 minute prior to obtaining)] Blood Pressure [Standing (for 1 minute prior to obtaining)] Blood Pressure Mean 84 82 87 Blood Pressure Mean [Lying] Blood Pressure Mean [Sitting (for 1 minute prior to obtaining)] Blood Pressure Mean [Standing (for 1 minute prior to obtaining)] Blood Pressure Source Monitor Monitor Monitor Blood Pressure Position Semi-Fowlers Semi-Fowlers Semi-Fowlers Blood Pressure Location Right Arm Left Arm Left Arm Pulse Ox 99 99 98 Oxygen Delivery Method Room Air Room Air Room Air 09/09/24 13:57 09/09/24 14:00 09/09/24 14:57 Temperature 97.7 F L 97.7 F L Temperature Source Oral Oral Pulse Rate 77 75 Pulse Rate [Lying] Pulse Rate [Sitting (for 1 minute prior to obtaining)] Pulse Rate [Standing (for 1 minute prior to obtaining)] Respiratory Rate 16 17 Blood Pressure 139/61 H 138/75 H Blood Pressure [Lying] Blood Pressure [Sitting (for 1 minute prior to obtaining)] Blood Pressure [Standing (for 1 minute prior to obtaining)] Blood Pressure Mean 87 96 Blood Pressure Mean [Lying] Blood Pressure Mean [Sitting (for 1 minute prior to obtaining)] Blood Pressure Mean [Standing (for 1 minute prior to obtaining)] Blood Pressure Source Monitor Monitor Blood Pressure Position Supine Semi-Fowlers Blood Pressure Location Right Arm Left Arm Pulse Ox 96 98 Oxygen Delivery Method Room Air Room Air Room Air 09/09/24 15:00 09/09/24 15:57 09/09/24 16:19 Temperature 97.8 F 97.8 F 97.8 F Temperature Source Oral Oral Oral Pulse Rate 85 75 77 Pulse Rate [Lying] Pulse Rate [Sitting (for 1 minute prior to obtaining)] Pulse Rate [Standing (for 1 minute prior to obtaining)] Respiratory Rate 16 17 17 Blood Pressure 131/91 H 137/79 H 127/89 H Blood Pressure [Lying] Blood Pressure [Sitting (for 1 minute prior to obtaining)] Blood Pressure [Standing (for 1 minute prior to obtaining)] Blood Pressure Mean 104 98 101 Blood Pressure Mean [Lying] Blood Pressure Mean [Sitting (for 1 minute prior to obtaining)] Blood Pressure Mean [Standing (for 1 minute prior to obtaining)] Blood Pressure Source Monitor Monitor Blood Pressure Position Semi-Fowlers Semi-Fowlers Blood Pressure Location Left Arm Left Arm Pulse Ox 96 98 97 Oxygen Delivery Method Room Air Room Air Room Air 09/09/24 17:31 Temperature Temperature Source Pulse Rate Pulse Rate [Lying] Pulse Rate [Sitting (for 1 minute prior to obtaining)] Pulse Rate [Standing (for 1 minute prior to obtaining)] Respiratory Rate Blood Pressure Blood Pressure [Lying] Blood Pressure [Sitting (for 1 minute prior to obtaining)] Blood Pressure [Standing (for 1 minute prior to obtaining)] Blood Pressure Mean Blood Pressure Mean [Lying] Blood Pressure Mean [Sitting (for 1 minute prior to obtaining)] Blood Pressure Mean [Standing (for 1 minute prior to obtaining)] Blood Pressure Source Blood Pressure Position Blood Pressure Location Pulse Ox Oxygen Delivery Method Room Air Weight Weight: 87.8 kg Body Mass Index (BMI) 26.9 Physical Exam Const alert, oriented x3, no apparent distress and average body habitus General Appearance: cooperative, well kempt and well developed Orientation / Consciousness: awake, oriented to person, oriented to place and oriented to time HEENT normocephalic and moist oral mucous membranes Eyes PERRL, EOMs intact bilaterally and conjunctivae normal Neck supple, no JVD, thyroid normal and no carotid bruits General: trachea midline Resp normal respiratory effort, no retractions and no use of accessory muscles Resp Narrative: Decreased breath sounds were noted over the patient's right lower lung field Auscultation: Negative for rales, rhonchi or wheezes Cardio regular rate, regular rhythm, S1 normal heart sound, S2 normal heart sound, no murmurs, no rub and no gallops GI normal to inspection, nondistended, normoactive bowel sounds, soft to palpation, non-tender and non-distended Extremity no clubbing, cyanosis or edema Skin no rashes or lesions noted General Skin Exam: no breakdown Neuro oriented x3, CN's II-XII intact bilaterally, moves all extremities, no focal motor deficits and no sensory deficits noted Sensorium / Orientation: awake and alert Speech: speech normal Psych affect normal Results Lab / Micro Data 09/09/24 16:50 09/09/24 10:40 Labs: Laboratory Results - last 24 hr 09/09/24 07:20: WBC 5.5, RBC 2.61 L, Hgb 6.6 L, Hct 21.6 L, MCV 82.8, MCH 25.3 L, MCHC 30.6 L, RDW Std Deviation 57.3 H, RDW Coeff of Ngoc 19.2 H, Plt Count 186, MPV 10.2, Immature Gran % (Auto) 0.900, Neut % (Auto) 78.3 H, Lymph % (Auto) 10.0 L, [place] % (Auto) 9.7, Eos % (Auto) 0.7, Baso % (Auto) 0.4, Absolute Neuts (auto) 4.3, Absolute Lymphs (auto) 0.55 L, Nucleated RBC % 0, Sodium 134 L, Potassium 6.0 H*, Chloride 108 H, Carbon Dioxide 19.0 L, Anion Gap 7, BUN 85 H, Creatinine 2.49 H, Estim Creat Clear Calc 26.46, Est GFR (MDRD) Af Amer 33 L, Est GFR (MDRD) Non-Af 27 L, BUN/Creatinine Ratio 34.1 H, Glucose 150 H, Lactic Acid 1.5, Calcium 8.6, Total Bilirubin 0.30, AST 15, ALT 17, Alkaline Phosphatase 104, Troponin I High Sens 51, Total Protein 7.6, Albumin 3.0 L, Globulin 4.6 H, Albumin/Globulin Ratio 0.7 L, Blood Type B POSITIVE, Antibody Screen NEGATIVE, Crossmatch See Detail 09/09/24 10:40: Sodium 134 L, Potassium 6.6 H*, Chloride 108 H, Carbon Dioxide 20.0 L, Anion Gap 5, BUN 84 H, Creatinine 2.44 H, Estim Creat Clear Calc 27.00, Est GFR (MDRD) Af Amer 33 L, Est GFR (MDRD) Non-Af 28 L, BUN/Creatinine Ratio 34.4 H, Glucose 183 H, Calcium 8.6 09/09/24 16:50: Hgb 9.2 L, Hct 29.6 L Micro: Microbiology 11/13/24 07:46 Stool Stool Occult Blood (DIEGO) - Final Imaging Radiology Impression Chest X-Ray 09/09/24 07:09 IMPRESSION: Moderate right pleural effusion with atelectasis or consolidation in the right lung base, increased from prior. Electronically Signed: Lexi Eckert MD at 8:04 EST , Abdomen/Pelvis CT 09/09/24 07:11 IMPRESSION: 1. Colonic diverticulosis without evidence of acute diverticulitis. 2. Cholelithiasis. 3. Large right pleural effusion with compressive atelectasis right middle lobe and right lower lobe. Cannot exclude underlying pulmonary mass. Follow-up CT chest recommended to exclude mass. Electronically Signed: Norma Mccloud MD at 7:53 EST , Assessment & Plan Assessment/Plan (1) Acute upper GI bleed: PLAN: Plan 1. Acute GI bleed-most probably secondary to an upper GI source-patient will be admitted to PCU, he will receive 2 units of packed red blood cells, hemoglobin will be monitored, patient will be placed on Protonix drip, octreotide drip, and IV Rocephin. Patient will undergo endoscopy tomorrow morning by gastroenterology. #2 right pleural effusion, probably secondary to cardiomyopathy with reduced ejection fraction/chronic systolic congestive heart failure-patient will need to undergo thoracentesis, he will need to be off aspirin and Plavix, perhaps tomorrow he can undergo a thoracentesis, patient is not hypoxic and I do not regard this as an emergency procedure at this time. #3 hyperkalemia-patient is on spironolactone I think this is what is caused his hyperkalemia, potassium will be rechecked later on this morning if it is still high I will give him Kayexalate. #4 chronic kidney disease stage IV-complicates care, management, recovery, and prognosis, labs will be monitored #5 acute blood loss anemia-again patient will be given 2 units of packed red blood cells, hemoglobin will be trended #6 coronary artery disease-complicates care, management, recovery, and prognosis #7 cardiomyopathy-suspect ischemic cardiomyopathy-complicates care, management, recovery, and prognosis Total clinical time spent by myself addressing the patient's medical issues, reviewing all of his data, and collaborating with patient's care team: 70 minutes Charges/Coding Visit Charges Inpatient E&M: 16288 Init Hosp L3
[2024-09-09 20:28] LABS: Anion Gap 7 (5-15); BUN 79 mg/dL (7-18); BUN/Creat Ratio 30.2 RATIO (10-20); Calcium,Total 8.4 mg/dL (8.5-10.1); Chloride 106 mmol/L (98-107); Creatinine, Serum 2.62 mg/dL (0.70-1.30); EST Glomerular Filtration Rate 25 mL/min (>60); Est Glom Filt Rate - Afr Amer 31 mL/min (>60); Estimated Creatinine Clearance 25.15 ml/min; Glucose 249 mg/dL (74-106); Sodium Level 134 mmol/L (136-145)
--- NOTE | 2024-09-09 21:50 | PCM.HOSP.N ---
Hospitalist Note Repeat K 6.0, mildly improved, will redose with kayexelate, add insulin, dextrose, albuterol, calcium gluconate x 1 and plan repeat BMP in 2 hours.
[2024-09-09] MEDS: Dextrose 10%-Water 250 ML 999 ML IV (22:27)
[2024-09-09] MEDS: Atorvastatin Calcium 40 MG Tablet PO (22:27)
[2024-09-09] MEDS: Sodium Polystyrene Sulfonate 15 GM/60 ML UDC PO (22:27)
[2024-09-09] MEDS: Insulin Lispro 10 UNIT in Syringe 0 ML 6 UNIT IV (22:29)
[2024-09-09] MEDS: Calcium Gluconate 1 GM/10 ML Vial 0.5 GM IVP (22:33)
[2024-09-09] MEDS: Albuterol *CONC* 2.5mg/0.5mL VIAL.NEB. 10 MG INHALATION (22:46)
[2024-09-10] VITALS (15 sets, daily range): BP systolic 97–132; BP diastolic 40–61; PULSE 74–84; RESP 16–18; TEMP 36.1–36.6; O2SAT 96–100; BMI 26.9
--- NOTE | 2024-09-10 | FLU_PTH ---
PATIENT: LOVE PHELAN LOC: [facility] U#:[id number] AGE/SX: 79/M ROOM: [facility] RE09/09/[address]: Dr. Kun Borrego DO : 1945 BED: 1 DIS: 09/10/2024 SPEC #: [id number] RECD: 09/10/24 15:00 STATUS: UMANG REMoi #: [id number] JOSÉ MIGUEL: 09/10/24 00:[address]: Kun Borrego DEPT: CYTOLOGY RECD BY: Ruthie Taylor ENTERED: 09/11/24 07:28 SP TYPE: Fluid OTHR DR: Angie Cheng, ENVIRONMENTAL QUALITY ANALYST-C Tissues: Pleural fluid, NOS Procedures: Special Stain Group II Surgery Specimen Level IV Cytospin Fluid HEADER OPERATION: Ultrasound guided thoracentesis PRE-OP DIAGNOSIS: Pleural effusion TISSUE SUBMITTED: Thoracentesis fluid for cytology DIAGNOSIS CYTOLOGY Thoracentesis fluid for cytology (cytospin and cellblock): Negative for malignant cells. See comment. 09/14/2024 COMMENT This specimen is bloody. Correlation with clinical findings and appropriate follow up are necessary. CYTOLOGY STUDY Slides are reviewed. CYTOLOGY GROSS Received is 80 ml of dark-marla cloudy fluid labeled with the patient's name and and designated per the requisition as Thoracentesis fluid. Submitted for cytology preparation including cell block. Mr 09/11/2024 TC:5 CPT: 27770,26187
[2024-09-10 01:19] LABS: Hematocrit 26.7 % (40-54); Hemoglobin 8.3 g/dL (13.0-16.5)
[2024-09-10 01:37] LABS: Anion Gap 9 (5-15); BUN 80 mg/dL (7-18); BUN/Creat Ratio 30.8 RATIO (10-20); Calcium,Total 8.4 mg/dL (8.5-10.1); Chloride 107 mmol/L (98-107); EST Glomerular Filtration Rate 26 mL/min (>60); Est Glom Filt Rate - Afr Amer 31 mL/min (>60); Estimated Creatinine Clearance 25.34 ml/min; Glucose 216 mg/dL (74-106); Potassium 4.5 mmol/L (3.5-5.1); Sodium Level 137 mmol/L (136-145)
[2024-09-10] MEDS: Octreotide 0.5 MG in Dextrose 5%-Water (250mL Bag) 250 ML 12.5 MG CONT INF (05:33)
--- NOTE | 2024-09-10 05:55 | EKG12_ITS ---
Test Reason : AM EKG Blood Pressure : */* mmHG Vent. Rate : 79 BPM Atrial Rate : 79 BPM P-R Int : 200 ms QRS Dur : 122 ms QT Int : 418 ms P-R-T Axes : 51 -7 145 degrees QTcB Int : 479 ms Normal sinus rhythm Inferior infarct , age undetermined ST & T wave abnormality, consider lateral ischemia Abnormal ECG When compared with ECG of 09-Sep-2024 07:17, MANUAL COMPARISON REQUIRED DATA IS UNCONFIRMED Confirmed by CHAPITO AMBRIZ, LI ([id number]), senior technical editor SHERIN FOSTER ([id number]) on 09/10/2024 1:52:23 P M Referred By: TALIA Confirmed By: LI URIARTE MD
[2024-09-10 06:25] LABS: Absolute Lymphocyte Count 0.38 X10^3/uL (0.83-4.51); Absolute Neutrophil Count 3.2 X10^3/uL (2.0-7.7); Basophil# 0.03 X10^3/uL; Basophil% 0.7 % (0-1); Eosinophil# 0.03 X10^3/uL; Eosinophils% 0.7 % (0-5); Hematocrit 26.4 % (40-54); Hemoglobin 8.2 g/dL (13.0-16.5); Lymphocyte # 0.38 X10^3/ul (0.83-4.51); Lymphocyte % 9.3 % (19-41); Mean Corp Hgb Conc 31.1 g/dL (32-36); Mean Corpuscular Hgb 25.9 pg (27.0-32.0); Mean Corpuscular Volume 83.3 fL (80-94); Mean Platelet Vol. 10.1 fl (6.2-12.0); Monocyte# 0.43 X10^3/uL; Monocyte% 10.5 % (0-10); NRBC Flagged by Analyzer 0 % (0-5); Neutrophil # 3.22 X10^3/uL (2.7-7.7); Neutrophil % 78.6 % (47-70); POSITIVE DIFFERENTIAL YES; Platelet Count 156 K/mm3 (150-450); RBC Distribution Width CV 18.1 % (11.6-14.6); RBC Distribution Width SD 54.4 fl (35.1-43.9); Red Blood Count 3.17 M/mm3 (4.6-6.2); White Blood Count 4.1 K/mm3 (4.4-11.0)
[2024-09-10 06:35] LABS: International Normalized Ratio 1.4; Prothrombin Time (Protime)PT. 16.7 SECONDS (11.7-14.9)
[2024-09-10 06:37] LABS: Partial Thromboplast Time 29.1 Seconds (24.1-36.2)
[2024-09-10 06:42] LABS: Bacteria 0 SEEN /hpf (None Seen); Mucous, Urine 0 SEEN /hpf (<or=2+); Red Blood Cells-Urine 0 SEEN /hpf (0-5); Squamous Epithelial Cells - UA 0 SEEN /hpf (0-5); White Blood Cells 0 SEEN /hpf (0-5)
[2024-09-10 06:46] LABS: Color, Urine Yellow (Yellow); Glucose, Dipstick 1000 mg/dl (Normal); Ketone-Dipstick Negative (Negative); Leukocyte Esterase-Dipstick Negative /ul (Negative); Nitrite-Dipstick Negative (Negative); Occult Blood-Urine Negative /ul (Negative); Protein-Dipstick 15 mg/dl (Negative); Specific Gravity, Urine 1.015 (1.002-1.030); Urine Bilirubin Dipstick Negative (Negative); Urine Clarity Clear (Clear); Urine Urobilinogen Normal (Normal)
[2024-09-10 06:54] LABS: AST(SGOT) 32 U/L (15-37); Alanine Aminotransfer ALT/SGPT 17 U/L (16-61); Albumin, Serum 2.9 g/dL (3.2-5.0); Alkaline Phosphatase 96 U/L (45-117); Globulin 4.3 g/dL (2.2-4.2); Protein, Total 7.2 g/dL (6.4-8.2)
--- NOTE | 2024-09-10 08:12 | US_ITS ---
PROCEDURE: ULTRASOUND GUIDED THORACENTESIS. DATE: September 10, 2024.. INDICATION: Male, 79 years old. Right pleural effusion. PHYSICIAN: Amarjit Cruz M.D. PROCEDURE: The risks, benefits, and alternatives to the procedure were explained to the patient. The specific risks of bleeding, infection, and pneumothorax requiring chest tube insertion were discussed and accepted. Written informed consent was obtained. Ultrasonographic evaluation of the right lower pleural space was carried out. An adequate pocket was identified. The patient was placed in the sitting, upright position. The overlying skin was prepped and draped in sterile fashion. 1% lidocaine was administered subcutaneously for local anesthesia. Under ultrasound guidance, a 5 [place] thoracentesis needle/catheter system was advanced into the right posterior lower pleural fluid collection. Approximately 1290 mL of blood tinged fluid was drained. The catheter was removed, and a sterile dressing was applied. A specimen was collected and sent to the laboratory for analysis, as requested by the referring clinician. The patient tolerated the procedure well. A chest x-ray was ordered. US/Thoracentesis W US IMPRESSION: Ultrasound-guided right thoracentesis. Electronically Signed: Amarjit Cruz MD at 15:33 [facility] ,
[2024-09-10 09:20] LABS: LDH 229 U/L (87-241)
[2024-09-10] MEDS: Pantoprazole Sodium 80 MG in 0.9% Normal Saline (100mL Bag) 80 ML 10 MG CONT INF (09:40)
[2024-09-10] MEDS: Ceftriaxone 1 GM/50 ML BAG IV (09:47)
--- NOTE | 2024-09-10 09:51 | PCM.PN.HOSP ---
Reason for Visit Reason for Visit: Diagnoses Gastrointestinal hemorrhage, unspecified (09/09/24) Subjective Subjective Patient was seen and examined today, his hemoglobin today was 8.2, creatinine appears to be stable at 2.6 and BUN was 80. Patient's potassium today was 4.5, glucose was 216. I have decided to have the patient undergo thoracentesis today, in addition he will be undergoing an EGD today. I talked briefly with his also who was in the room at the time of my examination. Objective Data Objective Data Vital Signs: Vital Signs Temp Pulse Resp BP Pulse Ox O2 Del Method 96.9 F L 82 18 124/57 H 100 Room Air 09/10/24 04:00 09/10/24 04:00 09/10/24 04:00 09/10/24 04:00 09/10/24 04:00 09/10/24 08:00 Oxygen Delivery Method Room Air Weight: 87.8 kg Body Mass Index (BMI) 26.9 Intake & Output: Intake and Output for Last 24 Hours 09/08/24 09/09/24 09/10/24 23:59 23:59 23:59 Intake Total 1900 / 1900 216.25 / 216.25 Output Total 1500 / 1500 500 / 500 Balance 400 / 400 -283.75 / -283.75 Lab / Micro Data 09/10/24 05:18 09/10/24 01:10 Labs: Laboratory Results - last 24 hr 09/09/24 05:50: Urine Color Yellow, Urine Clarity Clear, Urine pH 6.0, Ur Specific [place] 1.015, Urine Protein 15 H, Urine Glucose (UA) 1000 H, Urine Ketones Negative, Urine Occult Blood Negative, Urine Nitrite Negative, Urine Bilirubin Negative, Urine Urobilinogen Normal, Ur Leukocyte Esterase Negative, Urine RBC 0 SEEN, Urine WBC 0 SEEN, Ur Squamous Epith Cells 0 SEEN, Urine Bacteria 0 SEEN, Urine Mucus 0 SEEN 09/09/24 07:20: Crossmatch See Detail 09/09/24 10:40: Sodium 134 L, Potassium 6.6 H*, Chloride 108 H, Carbon Dioxide 20.0 L, Anion Gap 5, BUN 84 H, Creatinine 2.44 H, Estim Creat Clear Calc 27.00, Est GFR (MDRD) Af Amer 33 L, Est GFR (MDRD) Non-Af 28 L, BUN/Creatinine Ratio 34.4 H, Glucose 183 H, Calcium 8.6 09/09/24 16:50: Hgb 9.2 L, Hct 29.6 L 09/09/24 20:00: Sodium 134 L, Potassium 6.0 H*, Chloride 106, Carbon Dioxide 21.0, Anion Gap 7, BUN 79 H, Creatinine 2.62 H, Estim Creat Clear Calc 25.15, Est GFR (MDRD) Af Amer 31 L, Est GFR (MDRD) Non-Af 25 L, BUN/Creatinine Ratio 30.2 H, Glucose 249 H, Calcium 8.4 L 09/10/24 01:10: Hgb 8.3 L, Hct 26.7 L, Sodium 137, Potassium 4.5, Chloride 107, Carbon Dioxide 21.0, Anion Gap 9, BUN 80 H, Creatinine 2.60 H, Estim Creat Clear Calc 25.34, Est GFR (MDRD) Af Amer 31 L, Est GFR (MDRD) Non-Af 26 L, BUN/Creatinine Ratio 30.8 H, Glucose 216 H, Calcium 8.4 L 09/10/24 05:18: WBC 4.1 L, RBC 3.17 L, Hgb 8.2 L, Hct 26.4 L, MCV 83.3, MCH 25.9 L, MCHC 31.1 L, RDW Std Deviation 54.4 H, RDW Coeff of Ngoc 18.1 H, Plt Count 156, MPV 10.1, Immature Gran % (Auto) 0.200, Neut % (Auto) 78.6 H, Lymph % (Auto) 9.3 L, [place] % (Auto) 10.5 H, Eos % (Auto) 0.7, Baso % (Auto) 0.7, Absolute Neuts (auto) 3.2, Absolute Lymphs (auto) 0.38 L, Nucleated RBC % 0, PT 16.7 H, INR 1.4, APTT 29.1, Total Bilirubin 0.50, Direct Bilirubin 0.20, AST 32, ALT 17, Alkaline Phosphatase 96, Lactate Dehydrogenase 229, Total Protein 7.2, Albumin 2.9 L, Globulin 4.3 H Micro: Microbiology 09/09/24 07:46 Stool Stool Occult Blood (DIEGO) - Final Physical Exam Narrative alert, oriented x3, no apparent distress and average body habitus General Appearance: cooperative, well kempt and well developed Orientation / Consciousness: awake, oriented to person, oriented to place and oriented to time HEENT normocephalic and moist oral mucous membranes Eyes PERRL, EOMs intact bilaterally and conjunctivae normal Neck supple, no JVD, thyroid normal and no carotid bruits General: trachea midline Resp normal respiratory effort, no retractions and no use of accessory muscles Resp Narrative: Decreased breath sounds were noted over the patient's right lower lung field Auscultation: Negative for rales, rhonchi or wheezes Cardio regular rate, regular rhythm, S1 normal heart sound, S2 normal heart sound, no murmurs, no rub and no gallops GI normal to inspection, nondistended, normoactive bowel sounds, soft to palpation, non-tender and non-distended Extremity no clubbing, cyanosis or edema Skin no rashes or lesions noted General Skin Exam: no breakdown Neuro oriented x3, CN's II-XII intact bilaterally, moves all extremities, no focal motor deficits and no sensory deficits noted Sensorium / Orientation: awake and alert Speech: speech normal Psych affect normal Assessment & Plan Assessment/Plan (1) Acute hyperkalemia: (2) Acute upper GI bleed: PLAN: Plan 1. Acute GI bleed-most probably secondary to an upper GI source-patient will undergo an EGD today, hemoglobin appears to be stable, patient has received a total of 2 units of packed red blood cells. #2 right pleural effusion, probably secondary to cardiomyopathy with reduced ejection fraction/chronic systolic congestive heart failure or secondary to liver disease with ascites with translocation of the fluid across the right diaphragm-patient will undergo thoracentesis today #3 hyperkalemia-patient is on spironolactone I think this is what is caused his hyperkalemia, patient's potassium is normal today #4 chronic kidney disease stage IV-complicates care, management, recovery, and prognosis, labs will be monitored #5 acute blood loss anemia-patient's hemoglobin appears to be stable at this time, he has received 2 units of packed red blood cells #6 coronary artery disease-complicates care, management, recovery, and prognosis #7 cardiomyopathy- ischemic cardiomyopathy-complicates care, management, recovery, and prognosis Total clinical time spent by myself addressing the patient's medical issues, reviewing all of his data, and collaborating with patient's care team: 35 minutes Charges/Coding Visit Charges Inpatient E&M: 30488 Subs Hosp L2
[2024-09-10 10:02] LABS: Hemoglobin A1c 6.1 % (3.8-5.6)
--- NOTE | 2024-09-10 10:20 | CASEMGMT ---
RN CM TECHNOLOGY ARCHITECT CM?to room to meet with patient for initial transition planning/care coordination assessment. RN CM?introduced self and role at [facility]. Pt voices understanding and consents to assessment?at this time. Pt sitting on edge of bed in no distress at this time. @ bedside. Pt is A/O at this time and answers all questions appropriately. Care providers, pharmacy, and demographics verified/updated at this time. PCP: Dr Cheng. Pt also goes to [facility] every 6 months. Specialists: Dr Noguera/TITLE INSPECTOR Lita Patel-GI, Dr Smyth-nephrology, [facility]/Cardiology, [facility] and sees DM counselor, [facility] podiatry. Preferred Pharmacy: [facility] @ discharge. Pt was going to [facility], but is wanting to switch to [facility]. Insurance: [employer] Prescription Benefit: yes LNOK: , Shannan. Daughter, Shannan Living Arrangements: Lives w/ in one-story home w/3 steps to enter. Independent. able to assist. Transportation:? DME: States has the following DME: [facility] but does not use. BGM and sufficient supplies. [facility] w/sufficient supplies. Pt states that the [place] provides plenty of supplies for this. Has all needed insulin and oral medications needed @ home. Pt also has a BP Monitor, Pulse Ox, shower chair, and grab bars. Pt states no need for further DME at this time. HHC/SNF: No hx of SNF. Had had HHC in the past, but was not pleased with their services. He has been to [facility]. Pt declines wanting HHC or OP therapy. States does not need assistance w/medication mgnt or education He reports his strength is good and he is feeling much better than yesterday. Pt wishes to return home and states has no concerns with going home at time of discharge. CM?to follow for any discharge planning/needs. Pt and voice no further concerns/needs at this time. Advised them to ask for CM?if any further questions/concerns/needs arise. They voice understanding. PLAN: Home Theodore ARVIZU RN, CM
[2024-09-10] MEDS: 0.9% Normal Saline (1000mL) 1,000 ML 15 ML IV (12:23)
--- NOTE | 2024-09-10 13:07 | PCM.PRE.AN2 ---
ASA Classification* ASA Classification ASA Classification: 3 Assessment & Plan Anesthesia* Anesthesia Assessment Anesthesia Assessment: Discussed sedation and/or anesthesia options, risks, benefits, and alternatives with patient/parents/legal guardian/POA. Questions invited. The patient/parents/legal guardian/POA seems to understand and agrees to proceed with anesthesia plan. Reviewed the physical assessment, medical history, allergy history and patient home medications list prior to surgery/procedure/anesthetic and documented any changes. Performed airway and anesthesia risk assessments. Anesthesia Type Anesthesia Type: MAC History Source History Obtained from:: Patient and Chart Anesthesia Focused Assessment* Temperature: 97.9 F Pulse Rate: 83 Blood Pressure: 132/59 Respiratory Rate: 18 Pulse Ox: 99 Oxygen Delivery Method: Room Air Airway Assessment Mouth opens: >3 cm Mallampati Score: IV Teeth Condition: Caps/Crowns (Patient has multiple caps. They are all tight.) Neck Range of motion (ROM): Full ROM Focused Labs Anesthesia Preop lab: CBC WBC 4.1 K/mm3 (4.4-11.0) L 09/10/24 05:18 RBC 3.17 M/mm3 (4.6-6.2) L 09/10/24 05:18 Hgb 8.2 g/dL (13.0-16.5) L 09/10/24 05:18 Hct 26.4 % (40-54) L 09/10/24 05:18 Plt Count 156 K/mm3 (150-450) 09/10/24 05:18 CHEMISTRY Potassium 4.5 mmol/L (3.5-5.1) 09/10/24 01:10 Sodium 137 mmol/L (136-145) 09/10/24 01:10 Magnesium 2.5 mg/dL (1.6-2.6) 07/14/24 05:20 Phosphorus 4.1 mg/dL (2.5-4.9) 07/14/24 05:20 BUN 80 mg/dL (7-18) H 09/10/24 01:10 Creatinine 2.60 mg/dL (0.70-1.30) H 09/10/24 01:10 Glucose 216 mg/dL (74-106) H 09/10/24 01:10 POC Glucose 278 mg/dL (74-106) H 07/16/24 11:54 TSH 2.030 uIU/mL (0.358-3.740) 08/13/24 10:48 COAG PT 16.7 SECONDS (11.7-14.9) H 09/10/24 05:18 Pre-Assessment Diagnosis/Proposed Procedure Planned Operative Procedure(s): Esophagogastroduodenoscopy with possible cautery and/or injection. Anesthesia History Anesthesia History - athletic agent: Anesthesia History - athletic agent Hx Hospitalization Yes: ANGIOPLASTY AND CARDIAC 05/06/24 08:23 STENT 08/2023 Any Problems With Anesthesia No 09/09/24 20:04 Cholinesterase deficiency No 09/09/24 20:04 You/Your Family Experience No 09/09/24 20:04 fever (hyperthermia) with Relationship Recent Exposure to Contagious No 09/09/24 20:04 Disease Does patient have nerve No 09/09/24 20:04 stimulator Patient instructed to have device shut off --Does patient have Pacemaker No 09/10/24 12:00 or ICD? When Was Last Pacemaker Check QUESTION #4 FULL TEXT: You/Your Family Experience fever (hyperthermia) with Anesthesia Last Oral Intake Last Oral intake: Last Oral Intake NPO since 00:00 09/10/24 12:00 Meds taken in AM with sips of No 09/10/24 12:00 water? Meds patient instructed to take am of surgery PONV PONV - athletic agent: PONV - athletic agent Female HX of Motion Sickness HX of N/V After Surgery Non-Smoker Duration of Surgery greater than 60 minutes Number of Risk Factors PONV Score Height & Weight Height & Weight: Anesthesia: Height & Weight Height 5 ft 11 in 09/10/24 12:00 Weight: 87.8 kg 09/10/24 12:00 Body Mass Index (BMI) 26.9 09/10/24 12:00 Respiratory Assessment Respiratory Assessment - athletic agent: Respiratory Tract Infection Hx - athletic agent Hx Respiratory Tract Infection No 09/09/24 20:04 STOP Sleep Apnea STOP Sleep Apnea - athletic agent: STOP Sleep Apnea - athletic agent Hx Hypertension No 09/09/24 08:32 Hx Sleep Apnea No 09/09/24 08:32 CPAP BIPAP Do you snore loudly (louder No 09/09/24 08:32 than talking or can be heard Do you often feel tired/ No 09/09/24 08:32 fatigued/ sleepy during daytime? Has anyone observed you stop No 09/09/24 08:32 breathing during sleep? STOP Results Negative 09/09/24 08:32 QUESTION #5 FULL TEXT : Do you snore loudly (louder than talking or can be heard through closed doors)? Tobacco Use History Tobacco Use History - athletic agent: Tobacco Use History - athletic agent Tobacco Use Non-smoker 07/11/21 11:08 Smoking Status Former smoker 09/09/24 08:32 Hx Tobacco Use No 09/09/24 08:32 Years Smoking Packs Smoked per Day Smoking Cessation Date was No - quit smoking greater 09/09/24 08:32 within the last 15 years than 15 years ago Hx Smoking Cessation Date Hx Smoking Cessation No 09/09/24 08:32 Counseling Hematologic Medial History Hematologic Hx - athletic agent: Hematologic Medical Hx - credit correspondence clerk Hx of Blood Transfusion Yes 09/09/24 08:32 Hx of Transfusion in last 3 Yes 09/09/24 08:32 Months Date of Last Transfusion (if 08/11/24 09/09/24 08:32 within last 3 months) Ever experience any problems No 09/09/24 08:32 with transfusion(s)? Specify any problems Hx of Preganancy in last 3 N/A 09/09/24 08:32 Months Nurse Filling Out Transfusion JOHNSON 09/09/24 08:32 & Questions: Date: 09/09/24 09/09/24 08:32 Time: 08:36 09/09/24 08:32 Patient unable to answer at this time (ie. confused, unrespo /Reproduction History /Reproductive History - athletic agent: /Reproductive Hx- athletic agent Hx Now No 09/09/24 20:04 Gestational Age (in weeks): EDC: Hx Hx Para Hx Section SAB No 09/09/24 20:04 Active Medications Active Medications: Current Medications Generic Name Dose Route Start Last Admin Trade Name Freq PRN Reason Stop Dose Admin Amlodipine Besylate 10 mg 09/09/24 10:00 09/09/24 11:39 Amlodipine 10 Mg Tablet PO 10 mg DAILY NIRAV Administration Protocol Atorvastatin Calcium 40 mg 09/09/24 22:00 09/09/24 22:27 Atorvastatin Calcium 40 Mg Tablet PO 40 mg QHS NIRAV Administration Empagliflozin 25 mg 09/09/24 10:00 09/09/24 11:39 Empagliflozin 25 Mg Tablet PO 25 mg DAILY NIRAV Administration Furosemide 40 mg 09/09/24 10:00 09/09/24 11:38 Furosemide 40 Mg Tablet PO 40 mg DAILY NIRAV Administration Protocol Octreotide Acetate 0.5 mg/ 251 mls @ 12.5 mls/hr 09/09/24 09:45 09/10/24 05:33 Dextrose CONT INF 12.5 mls/hr .Q20H5M NIRAV Administration Ceftriaxone Sodium 1 gm in 50 mls @ 100 mls/hr 09/09/24 10:00 09/10/24 11:07 Rocephin IV Infused Q24 NIRAV Infusion Pantoprazole Sodium 80 mg/ 100 mls @ 10 mls/hr 09/09/24 10:00 09/10/24 09:40 Sodium Chloride CONT INF 10 mls/hr Q10H NIRAV Administration Sodium Chloride 500 mls @ 15 mls/hr 09/09/24 09:18 IV .[id number] PRN Saline Flush Sodium Chloride 500 mls @ 15 mls/hr 09/09/24 09:18 IV .[id number] PRN Additional IVPB Infusion Sodium Chloride 1,000 mls @ 15 mls/hr 09/10/24 12:25 09/10/24 12:23 IV 09/13/24 07:04 15 mls/hr .Q48H NIRAV Administration Protocol Ondansetron HCl 4 mg 09/09/24 09:16 Ondansetron 4 Mg/2 Ml Vial IV Q8H PRN PRN NAUSEA/VOMITING PFSH Medical History Alcohol use Thyroid nodule Insulin dependent diabetes mellitus Diabetes History of renal disease Dietary restriction History of stress test Wears glasses Wears partial dentures Gout Low iron Shortness of breath on exertion Former smoker History of echocardiogram Cardiology follow-up encounter History of heart attack Acute on chronic diastolic (congestive) heart failure Non-rheumatic mitral regurgitation Essential (primary) hypertension Diabetes mellitus type II, controlled Hyperlipidemia Atherosclerotic 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[place] coronary artery without angina pectoris (09/06/23) Ischemic cardiomyopathy Occlusion and stenosis of right carotid artery Home Medications ?Medication ?Instructions ?Recorded ?Last Taken ?Type amlodipine 10 mg tablet 10 mg PO DAILY BLOOD PRESSURE #90 07/11/21 09/03/23 Rx tabs cyanocobalamin (vitamin B-12) 1,000 mcg subcut QMONTH SUPPLEMENT 07/10/22 09/11/22 History 1,000 mcg/mL injection kit multivitamin 1 tab PO DAILY SUPPLEMENT 07/23/23 09/02/23 History aspirin 81 mg tablet,delayed 81 mg PO DAILY HEART HEALTH 30 09/07/23 05/19/24 Rx release days #30 tabs atorvastatin 40 mg tablet 40 mg PO QHS CHOLESTEROL 30 days 09/07/23 Unknown Rx #30 tabs furosemide 40 mg tablet 40 mg PO DAILY FLUID 10/02/23 Unknown History empagliflozin 25 mg tablet 25 mg PO DAILY DIABETES 01/20/24 Unknown History (Jardiance) clopidogrel 75 mg tablet (Plavix) 75 mg PO QDAY BLOOD THINNER #90 04/06/24 05/19/24 Rx tabs ferrous sulfate 325 mg (65 mg 325 mg PO DAILY Anemia 06/16/24 07/14/24 History iron) tablet pantoprazole 40 mg tablet,delayed 40 mg PO BID 30 days #60 tabs 07/16/24 Unknown Rx release spironolactone 50 mg tablet 50 mg PO QAM #60 tabs 08/13/24 Unknown Rx lactulose 10 gram/15 mL oral 20 g (30 mL) PO TID #3,785 mL 08/20/24 Unknown Rx solution insulin aspart U-100 100 unit/mL 14 unit subcut TIDCM DIABETES 09/09/24 Unknown History (3 mL) subcutaneous pen insulin glargine 100 unit/mL (3 38 unit subcut DAILY DIABETES 09/09/24 Unknown History mL) subcutaneous pen Allergy/AdvReac Type Severity Reaction Status Date / Time doxycycline Allergy hives Verified 07/29/24 10:37 Iodinated Contrast Media AdvReac Severe unresponsiv Verified 07/29/24 10:37 (contrast dye - iodinated) e Family History Father CAD (coronary artery disease) Hx CABG x4 vessels Myocardial infarction, Onset Age: 50 Mother Breast cancer Other Acute on chronic diastolic (congestive) heart failure Surgical History History of thoracentesis History of coronary artery stent placement Hx of colonoscopy History of left heart catheterization (09/22/18) History of mitral valve replacement with bioprosthetic valve (09/26/18) History of coronary artery stent placement (09/06/23) Social History Smoking Status: Former smoker how long ago did patient quit smokin alcohol intake: current Alcohol type: beer substance use type: does not use caffeine: Yes Type: coffee what type of physical activity do you participate in: other details: occasional rowing machine, biking frequency: other details: occasional rowing machine, biking duration: other details: occasional rowing machine, biking seatbelt use: always do you feel safe at home: Yes Review of Systems (Anesthesia) ROS Narrative System reviewed and no additional complaints, except as documented.
--- NOTE | 2024-09-10 13:57 | OP.EGD_ITS ---
Patient Name: Jimi Degroot Procedure Date: 09/10/2024 1:38 PM Date of : 1945 Age: 79 Procedure: Upper GI endoscopy Indications: Iron deficiency anemia secondary to chronic blood loss Providers: Pop Noguera DO Medicines: Monitored Anesthesia Care Patient Profile: This is a 79 year old male. Refer to note in patient chart for documentation of history and physical. Patient has symptoms. Complications: No immediate complications. Procedure: Pre-Anesthesia Assessment: - Prior to the procedure, a History and Physical was performed, and patient medications and allergies were reviewed. The patient is competent. The risks and benefits of the procedure and the sedation options and risks were discussed with the patient. All questions were answered and informed consent was obtained. Patient identification and proposed procedure were verified by the physician in the pre-procedure area. Mental Status Examination: alert and oriented. Airway Examination: normal oropharyngeal airway and neck mobility. Respiratory Examination: clear to auscultation. CV Examination: normal. Prophylactic Antibiotics: The patient does not require prophylactic antibiotics. Prior Anticoagulants: The patient has taken no anticoagulant or antiplatelet agents. ASA Grade Assessment: III - A patient with severe systemic disease. After reviewing the risks and benefits, the patient was deemed in satisfactory condition to undergo the procedure. The anesthesia plan was to use monitored anesthesia care (MAC). Immediately prior to administration of medications, the patient was re-assessed for adequacy to receive sedatives. The heart rate, respiratory rate, oxygen saturations, blood pressure, adequacy of pulmonary ventilation, and response to care were monitored throughout the procedure. The physical status of the patient was re-assessed after the procedure. After obtaining informed consent, the endoscope was passed under direct vision. Throughout the procedure, the patient's blood pressure, pulse, and oxygen saturations were monitored continuously. The gastroscope was introduced through the mouth, and advanced to the second part of duodenum. The upper GI endoscopy was accomplished without difficulty. The patient tolerated the procedure well. Scope In: 1:46:10 PM Scope Out: 1:49:32 PM Total Procedure Duration Time 0 hours 3 minutes 22 seconds Findings: Small (< 5 mm) varices were found in the lower third of the esophagus. They were 3 mm in largest diameter. Type 1 gastroesophageal varices (GOV1, esophageal varices which extend along the lesser curvature) with no bleeding were found in the gastric fundus. There were no stigmata of recent bleeding. Severe portal hypertensive gastropathy was found in the gastric body. No gross lesions were noted in the first portion of the duodenum. Impression: - Small (< 5 mm) esophageal varices. - Type 1 gastroesophageal varices (GOV1, esophageal varices which extend along the lesser curvature), without bleeding. - Portal hypertensive gastropathy. - No gross lesions in the first portion of the duodenum. - No specimens collected. Recommendation: - [facility]. - Advance diet as tolerated. - Continue present medications. Procedure Code(s): --- Professional --- 58762, Esophagogastroduodenoscopy, flexible, transoral; diagnostic, including collection of specimen(s) by brushing or washing, when performed (separate procedure) CPT copyright 2021 [employer]. All rights reserved. The codes documented in this report are preliminary and upon final canoe inspector review may be revised to meet current compliance requirements. Pop Noguera DO 09/10/2024 1:56:46 PM This report has been signed electronically. Number of Addenda: 0 Note Initiated On: 09/10/2024 1:38 PM
--- NOTE | 2024-09-10 13:57 | OP.CCLET_ITS ---
09/10/2024 Apryl Rahman Re : Upper GI endoscopy procedure for Jimi Degroot Dear Prosper This procedure was performed on August. My impressions and recommendations are as follows: Impressions : - Small (< 5 mm) esophageal varices. - Type 1 gastroesophageal varices (GOV1, esophageal varices which extend along the lesser curvature), without bleeding. - Portal hypertensive gastropathy. - No gross lesions in the first portion of the duodenum. - No specimens collected. Recommendations : - [facility]. - Advance diet as tolerated. - Continue present medications. My findings are described in the full procedure note, which is enclosed. If I can be of further assistance, please feel free to contact me at . Sincerely, Pop Noguera, 09/10/2024 1:56:46 PM This report has been signed electronically.
--- NOTE | 2024-09-10 14:03 | PCM.POST.ANE ---
Anesthesia: Postop Eval I Current Vital Signs Temperature: 97.2 F Pulse Rate: 77 Blood Pressure: 117/54 Respiratory Rate: 16 Pulse Ox: 98 Oxygen Delivery Method: Room Air Assessment Airway patent: Yes Spontaneous unlabored respirations: Yes Mental status: Awake and Calm nausea: No Vomiting: No Anesthesia Complication: No Fluid Hydration Crystalloid volume administer (ml): 30 Total IV fluid infused: 30 Progress Note Anesthesia document: Postop Eval 1 completed: Yes
[2024-09-10] MEDS: Lidocaine 2% (20 ml mdv) 20 ML Vial INFILT (14:31)
--- NOTE | 2024-09-10 14:45 | RAD_ITS ---
STUDY: X-RAY CHEST REASON FOR EXAM: Male, 79 years old. Post thoracentesis TECHNIQUE: AP inspiration and expiration views. COMPARISON: Comparison is made with prior study dated September 09, 2024. FINDINGS: The patient is status post right thoracentesis. Mild residual pleural-parenchymal changes. No evidence of pneumothorax. RAD/Chest Insp/Exp 2 View IMPRESSION: No evidence of pneumothorax from the right thoracentesis. Electronically Signed: Amarjit Cruz MD at 15:50 EST ,
--- NOTE | 2024-09-10 15:45 | PCM.DC.SUM ---
Providers Date of Admission: 09/09/24 Date of Discharge: 09/10/24 Primary Care Physician: EMY Rahman Consultations 09/09/24 09:16 Consult: Gastroenterology Routine Consulting Provider: [facility] Reason for Consult: anemia EMERGENT Consult: No MD Notified: Yes Date Notified: 09/09/24 Time Notified: 08:25 Method of Notification: Verbal Reason For Visit: UPPER GI BLEED Diagnosis Discharge Diagnosis (1) Acute non-ST elevation myocardial infarction (NSTEMI): Status: Acute Code(s): I21.4 - Non-ST elevation (NSTEMI) myocardial infarction (2) CAD (coronary artery disease): Status: Acute Code(s): I25.10 - Atherosclerotic 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[place] coronary artery without angina pectoris (3) ABLA (acute blood loss anemia): Status: Resolved Code(s): D62 - Acute posthemorrhagic anemia (4) Carotid artery disease: Status: Acute Code(s): I77.9 - Disorder of arteries and arterioles, unspecified Qualifiers: Carotid artery disease type: stenosis Laterality: right Qualified Code(s): I65.21 - Occlusion and stenosis of right carotid artery (5) Diabetes: Status: Inactive Code(s): E11.9 - Type 2 diabetes mellitus without complications (6) Acute upper gastrointestinal bleeding: Status: Resolved Code(s): K92.2 - Gastrointestinal hemorrhage, unspecified Plan 1. Acute GI bleed-most probably secondary to an upper GI source-patient will undergo an EGD today, hemoglobin appears to be stable, patient has received a total of 2 units of packed red blood cells. #2 right pleural effusion, probably secondary to cardiomyopathy with reduced ejection fraction/chronic systolic congestive heart failure or secondary to liver disease with ascites with translocation of the fluid across the right diaphragm-patient will undergo thoracentesis today #3 hyperkalemia-patient is on spironolactone I think this is what is caused his hyperkalemia, patient's potassium is normal today #4 chronic kidney disease stage IV-complicates care, management, recovery, and prognosis, labs will be monitored #5 acute blood loss anemia-requiring blood transfusion-patient's hemoglobin appears to be stable at this time, he has received 2 units of packed red blood cells #6 coronary artery disease-complicates care, management, recovery, and prognosis #7 cardiomyopathy- ischemic cardiomyopathy-complicates care, management, recovery, and prognosis #8 esophageal varices Total clinical time spent by myself addressing the patient's medical issues, reviewing all of his data, and collaborating with patient's care team: 35 minutes Medications at Discharge Home Medications amlodipine 10 mg tablet 10 mg PO DAILY BLOOD PRESSURE #90 tabs 07/11/21 cyanocobalamin (vitamin B-12) 1,000 mcg/mL injection kit 1,000 mcg subcut QMONTH SUPPLEMENT 07/10/22 multivitamin 1 tab PO DAILY SUPPLEMENT 07/23/23 atorvastatin 40 mg tablet 40 mg PO QHS CHOLESTEROL 30 days #30 tabs 09/07/23 furosemide 40 mg tablet 40 mg PO DAILY FLUID 10/02/23 empagliflozin 25 mg tablet (Jardiance) 25 mg PO DAILY DIABETES 01/20/24 ferrous sulfate 325 mg (65 mg iron) tablet 325 mg PO DAILY Anemia 06/16/24 pantoprazole 40 mg tablet,delayed release 40 mg PO BID 30 days #60 tabs 07/16/24 lactulose 10 gram/15 mL oral solution 20 g (30 mL) PO TID #3,785 mL 08/20/24 insulin aspart U-100 100 unit/mL (3 mL) subcutaneous pen 14 unit subcut TIDCM DIABETES 09/09/24 insulin glargine 100 unit/mL (3 mL) subcutaneous pen 38 unit subcut DAILY DIABETES 09/09/24 carvedilol 3.125 mg tablet 3.125 mg PO BID #60 tabs 09/10/24 spironolactone 50 mg tablet 25 mg (1/2 x 50 mg) PO QAM #60 tabs 09/10/24 Hospital Course Operations None Procedures Blood transfusion, EGD and Thoracentesis Summary of Care Provided Minutes Spent on Discharge: 32 Hospital Course: This 79-year-old white male was seen in the emergency room at [facility] with complaints of generalized upper abdominal pain and lightheadedness. Labs obtained in the emergency room showed a normal white blood cell count, hemoglobin however was 6.6, potassium was 6, creatinine was 2.49 and BUN was 85. CT of the abdomen showed cholelithiasis, there is noted to be right pleural effusion which was large with compressive atelectasis in the right middle and right lower lobe. Patient was admitted to PCU for acute GI bleed and acute blood loss anemia, patient was given blood transfusion and seen in consultation by gastroenterology who performed an EGD which showed evidence of esophageal varices and portal hypertensive gastropathy. It was recommended that the patient undergo a TIPS procedure as an outpatient. This would be arranged by gastroenterology. Patient underwent thoracentesis with removal of over 1.2 L of fluid from his pleural space. On 09/10/2024, patient was seen and examined: On examination he appeared in good health and spirits. Vital signs as documented. Skin warm and dry and without overt rashes. Neck without JVD, neck was supple, trachea midline, thyroid was normal. Lungs clear bilaterally, normal air movement was noted. Heart exam notable for regular rhythm, normal sounds and absence of murmurs, rubs or gallops. Abdomen unremarkable and without evidence of organomegaly, masses, or abdominal aortic enlargement. Bowel sounds are present, abdomen is not distended. Extremities nonedematous, no cyanosis was noted, no clubbing was noted. Neuro: Cranial nerves II through XII are grossly intact, no focal motor deficits were noted, sensation to light touch and pinprick intact, motor exam 5/5 throughout. Psych: Patient is alert and oriented x3, he does not appear anxious or depressed, he does not appear agitated. Patient was felt stable for discharge home on 09/10/2024 Weight / BMI Weight Weight: 87.8 kg Body Mass Index (BMI) 26.9 ABG / Lab / Microbiology Data 09/10/24 05:18 09/10/24 01:10 Laboratory: Laboratory Results - last 24 hr 09/09/24 05:50: Urine Color Yellow, Urine Clarity Clear, Urine pH 6.0, Ur Specific [place] 1.015, Urine Protein 15 H, Urine Glucose (UA) 1000 H, Urine Ketones Negative, Urine Occult Blood Negative, Urine Nitrite Negative, Urine Bilirubin Negative, Urine Urobilinogen Normal, Ur Leukocyte Esterase Negative, Urine RBC 0 SEEN, Urine WBC 0 SEEN, Ur Squamous Epith Cells 0 SEEN, Urine Bacteria 0 SEEN, Urine Mucus 0 SEEN 09/09/24 07:20: Crossmatch See Detail 09/09/24 16:50: Hgb 9.2 L, Hct 29.6 L 09/09/24 20:00: Sodium 134 L, Potassium 6.0 H*, Chloride 106, Carbon Dioxide 21.0, Anion Gap 7, BUN 79 H, Creatinine 2.62 H, Estim Creat Clear Calc 25.15, Est GFR (MDRD) Af Amer 31 L, Est GFR (MDRD) Non-Af 25 L, BUN/Creatinine Ratio 30.2 H, Glucose 249 H, Calcium 8.4 L 09/10/24 01:10: Hgb 8.3 L, Hct 26.7 L, Sodium 137, Potassium 4.5, Chloride 107, Carbon Dioxide 21.0, Anion Gap 9, BUN 80 H, Creatinine 2.60 H, Estim Creat Clear Calc 25.34, Est GFR (MDRD) Af Amer 31 L, Est GFR (MDRD) Non-Af 26 L, BUN/Creatinine Ratio 30.8 H, Glucose 216 H, Calcium 8.4 L 09/10/24 05:18: WBC 4.1 L, RBC 3.17 L, Hgb 8.2 L, Hct 26.4 L, MCV 83.3, MCH 25.9 L, MCHC 31.1 L, RDW Std Deviation 54.4 H, RDW Coeff of Ng[place] 18.1 H, Plt Count 156, MPV 10.1, Immature Gran % (Auto) 0.200, Neut % (Auto) 78.6 H, Lymph % (Auto) 9.3 L, [place] % (Auto) 10.5 H, Eos % (Auto) 0.7, Baso % (Auto) 0.7, Absolute Neuts (auto) 3.2, Absolute Lymphs (auto) 0.38 L, Nucleated RBC % 0, PT 16.7 H, INR 1.4, APTT 29.1, Hemoglobin A1c 6.1 H, Total Bilirubin 0.50, Direct Bilirubin 0.20, AST 32, ALT 17, Alkaline Phosphatase 96, Lactate Dehydrogenase 229, Total Protein 7.2, Albumin 2.9 L, Globulin 4.3 H Microbiology: Microbiology 09/09/24 07:46 Stool Stool Occult Blood (DIEGO) - Final Radiography Diagnostic Testing: Radiology Impression Thoracentesis Ultrasound 09/10/24 08:12 IMPRESSION: Ultrasound-guided right thoracentesis. Electronically Signed: Amarjit Cruz MD at 15:33 EST , Meaningful Use Info Meaningful Use Meaningful Use Diagnoses (Choose all that apply): None applicable Ischemic Stroke Statin Dosing Therapy Reference: STATIN DOSE THERAPY REFERENCE: * Patients > 75 years receive moderate or high dose statin therapy. * Patients 75 years or YOUNGER should receive HIGH intensity statin dose unless contraindicated. You will be required to document reason for non-treatment if statin daily dose does not meet guidelines. HIGH DOSE STATIN THERAPY DAILY Atorvastatin > than or = to 40 mg Rosuvastatin > than or = to 20 mg Amlodipine + Atorvastatin > than or = to 2.5/40 mg Ezetimibe + Simvastatin 10/80 mg Simvastatin 80mg Discharge Plan Admission Admit Date/Time: 09/09/24 08:02 Primary Reason for Your Visit: Acute blood loss anemia, cirrhosis Attending Provider: Kun Borrego Primary Care Provider: Angie Cheng Instructions Additional Instructions / Restrictions: Reduce your Aldactone to 25 mg daily (one half of a 50 mg tablet) starting tomorrow Discharge Orders/Prescriptions Prescriptions: New carvedilol 3.125 mg tablet 3.125 mg PO BID Qty: 60 0RF Rx Instructions: must administer with a meal/food Continued amlodipine 10 mg tablet 10 mg PO DAILY Qty: 90 3RF cyanocobalamin (vitamin B-12) 1,000 mcg/mL kit 1,000 mcg subcut QMONTH Patient Comments: PATIENT INJECTS THIS ONCE A MONTH ON THE . multivitamin Tablet 1 tab PO DAILY Jardiance 25 mg tablet 25 mg PO DAILY Rx Instructions: Will start when current supply of [employer] is finished atorvastatin 40 mg Tablet 40 mg PO QHS 30 Days Qty: 30 0RF insulin aspart U-100 100 unit/mL (3 mL) insulin pen 14 unit subcut TIDCM Rx Instructions: Hold if glucose less than 130 mg/dl insulin glargine 100 unit/mL (3 mL) insulin pen 38 unit subcut DAILY pantoprazole 40 mg Tablet,Delayed Release (Dr/Ec) 40 mg PO BID 30 Days Qty: 60 2RF furosemide 40 mg tablet 40 mg PO DAILY lactulose 10 gram/15 mL solution 20 g PO TID Qty: 3785 3RF Changed spironolactone 50 mg tablet 25 mg PO QAM Qty: 60 3RF Discontinued aspirin 81 mg Tablet,Delayed Release (Dr/Ec) 81 mg PO DAILY 30 Days Qty: 30 0RF clopidogrel [Plavix] 75 mg tablet 75 mg PO QDAY Qty: 90 3RF No Action ferrous sulfate 325 mg (65 mg iron) tablet 325 mg PO DAILY Rx Instructions: 2 tabs daily Referrals / Follow Up: Pop Noguera DO [Med Staff - Active Staff] - See Referral Note (In 2 to 3 weeks) Matthew Redding NP, BIBLE [facility]ER-C [Med Staff - Adv Practice Prof] - See Referral Note (In 2 weeks, call for an appointment) Angie Cheng NP-C [Primary Care Provider] - Within 1 Week (Get a BMP and a CBC drawn on Saturday or Saturday of next week) Disposition Disposition (needs filled in before D/C Order can be placed): Home, Self Care Charges/Coding Visit Charges Inpatient E&M: 68734 Disch Hosp >30min
[2024-09-10] MEDS: amLODIPine 10 MG Tablet PO (16:06)
[2024-09-10] MEDS: Furosemide 40 MG Tablet PO (16:06)
[2024-09-10] MEDS: Empagliflozin 25 MG Tablet PO (16:07)
--- NOTE | 2024-09-10 16:45 | CASEMGMT ---
Patient had order for discharge. RN CM in to discuss needs at discharge. Patient independent in room, family at bedside. Patient denies needs or help at discharge. Patient had no further questions or concerns.
[2024-09-10 16:51] LABS: Glucose, Body Fluid 186 mg/dL (40-70); LDH,Body Fluid 126 Units/L (Not Establ.); Protein, Body Fluid 4.5 g/dL (Not Establ.)
--- NOTE | 2024-09-10 16:51 | PCM.POSTANE2 ---
Anesthesia Postop Eval I Sum Postop Eval Completion status Anesthesia document: Postop Eval 1 completed: Yes Anesthesia Postop Eval I Summary Anesthesia Postop Eval I Summary: Anesthesia Postop Eval I: Assessment Summary Airway patent Yes 09/10/24 14:03 [email or web address] Spontaneous unlabored Yes 09/10/24 14:03 [email or web address] respirations Mental status Awake,Calm 09/10/24 14:03 [email or web address] nausea No 09/10/24 14:03 [email or web address] Vomiting No 09/10/24 14:03 [email or web address] Anesthesia Postop Eval I: Fluid Summary Crystalloid volume administer 30 09/10/24 14:03 [email or web address] (ml) Colloids volume administered ( ml) Blood Product volume administered (ml) Total IV fluid infused 30 09/10/24 14:03 [email or web address] Anesthesia Postop Eval I: Summary Notes Anesthesia Complication No 09/10/24 14:03 [email or web address] Anesthesia Complication Comment: Post-operative progress note Anesthesia: Postop Eval II Evaluation Mental status: Awake Pain Level: 1 nausea: No Vomiting: No
[2024-09-10 21:10] LABS: Cytology, Body Fluid / CSF SEE PATHOLOGY REPORT
[2024-09-10 21:13] LABS: Body Fluid Mononuclear WBC # 1.612 10^3/uL; Body Fluid Mononuclear WBC % 97.6 %; Body Fluid Polynuclear WBC % 2.4 %; Body Fluid Total Cells Counted 1.686 10^3/ul; Red Cell Count/Body Fluid 0.071 10^6/ul; White Blood Count/Body Fluid 1.652 10^3/uL
[2024-09-10 22:08] LABS: Auto B Fluid Analyzer BKGD Ct COUNTS W/IN LIMITS (W/IN LIMITS); Lymphocytes 93 %; Macrophages 3 %; Mesothelial Cells 2 %; Neutrophil (Segs) 2 %; Source- Body Fluid THORACENTESIS
[2024-09-10 22:09] LABS: Appearance/Body Fluid CLOUDY; Body Fluid QC Type(s) BF3Q; Color/Body Fluid RED
[2024-09-11 11:28] LABS: Pathologist Comment/Body Fluid Reviewed
== END 2024-09-10 17:52 | disposition home or self-care (01) | DRG 377 ==
LOC: ED 08:07 → PCU 08:29
PROVIDERS: Anesthesiology; Family Medicine; Internal Medicine Gastroenterology; Admitting Provider Internal Medicine; Emergency Provider Emergency Medicine; PCP Nurse Practitioner Family; Visit Provider Internal Medicine
PROC: 0DJ08ZZ Inspection of Upper Intestinal Tract, Via Natural or Artificial Opening Endoscopic (ICD-10-PCS; CPT 43235; principal; 2024-09-10 13:10)
DX: K92.2 Gastrointestinal hemorrhage, unspecified (principal); I21.A1 Myocardial infarction type 2; J90 Pleural effusion, not elsewhere classified; I50.22 Chronic systolic (congestive) heart failure; K76.6 Portal hypertension; D62 Acute posthemorrhagic anemia; E11.9 Type 2 diabetes mellitus without complications; D50.9 Iron deficiency anemia, unspecified; D50.0 Iron deficiency anemia secondary to blood loss (chronic); I65.21 Occlusion and stenosis of right carotid artery; K25.9 Gastric ulcer, unspecified as acute or chronic, without hemorrhage or perforation; Z95.3 Presence of xenogenic heart valve; E78.5 Hyperlipidemia, unspecified; E87.5 Hyperkalemia; Z79.4 Long term (current) use of insulin; I25.10 Atherosclerotic 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native coronary artery without angina pectoris; K57.30 Diverticulosis of large intestine without perforation or abscess without bleeding; I85.00 Esophageal varices without bleeding; I25.5 Ischemic cardiomyopathy; K31.89 Other diseases of stomach and duodenum; Z79.84 Long term (current) use of oral hypoglycemic drugs; Z95.5 Presence of coronary angioplasty implant and graft; Z79.2 Long term (current) use of antibiotics; Z87.891 Personal history of nicotine dependence; N28.9 Disorder of kidney and ureter, unspecified; Z79.02 Long term (current) use of antithrombotics/antiplatelets
CPT/HCPCS: 32555; 36415; 71045; 71046; 74176; 80048; 80053; 80076; 81001; 82274; 82945; 83036; 83605; 83615; 84157; 84484; 85014; 85018; 85025; 85610; 85730; 86850; 86900; 86901; 86920; 88108; 88305; 88313; 89050; 93005; 94640; 99285; P9016; A4216; J0612; J2405

== ENCOUNTER → 2024-09-18 | Outpatient (CLI) | payer OTHER, MEDICARE, SELFPAY ==
[2024-09-18 15:39] LABS: Absolute Lymphocyte Count 0.37 X10^3/uL (0.83-4.51); Basophil# 0.03 X10^3/uL; Basophil% 0.6 % (0-1); Eosinophil# 0.07 X10^3/uL; Eosinophils% 1.4 % (0-5); Hematocrit 31.5 % (40-54); Hemoglobin 9.4 g/dL (13.0-16.5); Lymphocyte # 0.37 X10^3/ul (0.83-4.51); Lymphocyte % 7.5 % (19-41); Mean Corp Hgb Conc 29.8 g/dL (32-36); Mean Corpuscular Hgb 25.5 pg (27.0-32.0); Mean Corpuscular Volume 85.4 fL (80-94); Mean Platelet Vol. 10.1 fl (6.2-12.0); Monocyte# 0.47 X10^3/uL; Monocyte% 9.6 % (0-10); NRBC Flagged by Analyzer 0 % (0-5); Neutrophil # 3.95 X10^3/uL (2.7-7.7); Neutrophil % 80.3 % (47-70); POSITIVE DIFFERENTIAL YES; Platelet Count 185 K/mm3 (150-450); RBC Distribution Width CV 18.1 % (11.6-14.6); RBC Distribution Width SD 56.5 fl (35.1-43.9); Red Blood Count 3.69 M/mm3 (4.6-6.2); White Blood Count 4.9 K/mm3 (4.4-11.0)
[2024-09-18 15:47] LABS: Differential Indicated SCAN CRITERIA MET
[2024-09-18 16:37] LABS: Anion Gap 7 (5-15); BUN 51 mg/dL (7-18); BUN/Creat Ratio 22.3 RATIO (10-20); Calcium,Total 8.9 mg/dL (8.5-10.1); Chloride 109 mmol/L (98-107); Creatinine, Serum 2.29 mg/dL (0.70-1.30); EST Glomerular Filtration Rate 30 mL/min (>60); Est Glom Filt Rate - Afr Amer 36 mL/min (>60); Glucose 81 mg/dL (74-106); Potassium 5.7 mmol/L (3.5-5.1); Sodium Level 137 mmol/L (136-145)
[2024-09-18 16:41] LABS: Platelet Estimate ADEQUATE (ADEQ)
[2024-09-18 16:42] LABS: Anisocytosis RARE; Red Cell Morphology NORM C+C NORMAL (NORM C&C)
== END | disposition home or self-care (01) ==
PROVIDERS: PCP Nurse Practitioner Family; Referring Provider Nurse Practitioner Family; Visit Provider Nurse Practitioner Family
DX: D50.9 Iron deficiency anemia, unspecified (principal); N18.9 Chronic kidney disease, unspecified
CPT/HCPCS: 36415; 80048; 85025

== ENCOUNTER 2024-10-14 11:30 | Outpatient (RCR) | payer OTHER, MEDICARE, SELFPAY ==
[2024-10-14 12:20] LABS: Absolute Lymphocyte Count 0.39 X10^3/uL (0.83-4.51); Absolute Neutrophil Count 2.8 X10^3/uL (2.0-7.7); Basophil# 0.04 X10^3/uL; Eosinophil# 0.09 X10^3/uL; Eosinophils% 2.3 % (0-5); Hematocrit 37.2 % (40-54); Hemoglobin 11.2 g/dL (13.0-16.5); Lymphocyte # 0.39 X10^3/ul (0.83-4.51); Lymphocyte % 10.2 % (19-41); Mean Corp Hgb Conc 30.1 g/dL (32-36); Mean Corpuscular Hgb 24.6 pg (27.0-32.0); Mean Corpuscular Volume 81.8 fL (80-94); Monocyte# 0.48 X10^3/uL; Monocyte% 12.5 % (0-10); NRBC Flagged by Analyzer 0 % (0-5); Neutrophil # 2.81 X10^3/uL (2.7-7.7); Neutrophil % 73.5 % (47-70); POSITIVE DIFFERENTIAL YES; Platelet Count 140 K/mm3 (150-450); RBC Distribution Width CV 16.9 % (11.6-14.6); RBC Distribution Width SD 49.9 fl (35.1-43.9); Red Blood Count 4.55 M/mm3 (4.6-6.2); White Blood Count 3.8 K/mm3 (4.4-11.0)
== END 2024-10-14 18:00 | disposition home or self-care (01) ==
LOC: LAB 11:30
PROVIDERS: PCP Nurse Practitioner Family; Referring Provider Nurse Practitioner Family; Visit Provider Nurse Practitioner Family
DX: D60.9 Acquired pure red cell aplasia, unspecified (principal)

== ENCOUNTER → 2024-10-14 | Outpatient (CLI) | payer MEDICARE, SELFPAY ==
--- NOTE | 2024-10-14 10:51 | ECHOL_ITS ---
Reason For Study: CHF Procedure This was a limited 2D transthoracic echocardiogram. Exam performed in department. Left Ventricle Normal LV size. The left ventricular ejection fraction is 25 %. Stage 1 diastolic dysfunction. There is severe global hypokinesis of the left ventricle. Right Ventricle Normal RV size. Normal systolic function. Mitral Valve There is mild to moderate mitral annular calcification. Mean transmitral valve gradient 6 mmHg. Stable appearing bioprosthetic mitral valve apparatus. Pericardium/Pleural No pericardial effusion. MMode/2D Measurements & Calculations LVIDd: 5.6 cm IVSd: 0.98 cm LVOT diam: 2.0 cm LVIDs: 4.6 cm LVPWd: 1.1 cm LVOT area: 3.0 cm2 FS: 18.1 % LVAd ap4: 37.0 cm2 LVAd ap2: 34.1 cm2 SV(MOD-sp4): 49.8 ml LVLd ap4: 9.2 cm LVLd ap2: 9.3 cm SI(MOD-sp4): 23.5 ml/m2 EDV(MOD-sp4): 125.5 ml EDV(MOD-sp2): 101.8 ml EDV(sp4-el): 126.2 ml EDV(sp2-el): 105.6 ml LVAs ap4: 27.8 cm2 LVAs ap2: 25.7 cm2 LVLs ap4: 8.4 cm LVLs ap2: 8.9 cm ESV(MOD-sp4): 75.8 ml ESV(MOD-sp2): 61.5 ml ESV(sp4-el): 78.2 ml ESV(sp2-el): 63.0 ml EF(MOD-sp4): 39.6 % EF(MOD-sp2): 39.6 % EF(sp4-el): 38.0 % SV(MOD-sp2): 40.3 ml SV(sp4-el): 48.0 ml SI(MOD-sp2): 19.1 ml/m2 Time Measurements MV dec time: 0.55 sec Doppler Measurements & Calculations MV E max shahrzad: 125.0 cm/sec MV V2 max: 169.6 cm/sec MV P1/2t max shahrzad: 148.1 cm/sec MV A max shahrzad: 155.3 cm/sec MV max P.5 mmHg MV P1/2t: 116.1 msec MV E/A: 0.81 MV V2 mean: 120.4 cm/sec MV mean P.0 mmHg MV dec slope: 373.4 cm/sec2 MV V2 VTI: 50.2 cm MVA(P1/2t): 1.9 cm2 MVA(VTI): 1.4 cm2 Ao V2 max: 173.4 cm/sec LV V1 max: 114.3 cm/sec SV(LVOT): 72.3 ml Ao max P.0 mmHg LV V1 max P.2 mmHg Ao V2 mean: 128.8 cm/sec LV V1 mean P.1 mmHg Ao mean P.2 mmHg LV V1 mean: 82.6 cm/sec Ao V2 VTI: 35.2 cm LV V1 VTI: 24.1 cm AV (velocity ratio): 0.69 MARQUES(I,D): 2.1 cm2 MARQUES(V,D): 2.0 cm2 ECHO/Echo, Limited Study Interpretation Summary The left ventricular ejection fraction is 25 %. Normal LV size. There is severe global hypokinesis of the left ventricle. Stage 1 diastolic dysfunction. Stable appearing bioprosthetic mitral valve apparatus. Ordering Physician: Matthew Redding/Hemant Blanchard Referring Physician: MARC BONDS Performed By: Patty Moilna RDCS
== END | disposition home or self-care (01) ==
LOC: CVS 10:51
PROVIDERS: PCP Nurse Practitioner Family; Referring Provider Nurse Practitioner Family; Visit Provider Nurse Practitioner Family
DX: I34.0 Nonrheumatic mitral (valve) insufficiency (principal); I50.20 Unspecified systolic (congestive) heart failure; Z95.3 Presence of xenogenic heart valve
CPT/HCPCS: 93308

== ENCOUNTER → 2024-10-27 | Outpatient (CLI) | payer MEDICARE, SELFPAY ==
--- NOTE | 2024-10-27 13:39 | RAD_ITS ---
STUDY: X-RAY CHEST REASON FOR EXAM: Male, 79 years old. ESTEVES TECHNIQUE: PA and lateral views of the chest. COMPARISON: 09/10/2024 FINDINGS: Suspect transcatheter aortic valve replacement. The lungs are clear and expanded. Moderate right pleural effusion. There is moderate cardiac enlargement. Normal mediastinum and mj. Normal visualized pulmonary arteries. Normal visualized aortic arch and descending thoracic aorta. Normal visualized thoracic spine. Normal visualized ribs, clavicles, and shoulders. There is no demonstrated abnormality of the visualized soft tissue structures of the upper abdomen. RAD/Chest PA and Lateral IMPRESSION: Moderate right pleural effusion. Electronically Signed: Lucas Tena MD at 0:03 EST ,
== END | disposition home or self-care (01) ==
PROVIDERS: PCP Nurse Practitioner Family; Referring Provider Physician Assistant Medical; Visit Provider Physician Assistant Medical
DX: J90 Pleural effusion, not elsewhere classified (principal)
CPT/HCPCS: 71046

== ENCOUNTER → 2024-11-09 | Outpatient (CLI) | payer MEDICARE, SELFPAY ==
[2024-11-09 08:12] VITALS: BP 150/60; PULSE 81; RESP 18; O2SAT 98
[2024-11-09] MEDS: Lidocaine 2% (20 ml mdv) 20 ML Vial INFILT (08:18)
[2024-11-09 08:27] VITALS: BP 140/58; PULSE 76; RESP 18; O2SAT 97
--- NOTE | 2024-11-09 08:30 | RAD_ITS ---
STUDY: X-RAY CHEST REASON FOR EXAM: Male, 79 years old. Post thora TECHNIQUE: AP inspiration and expiration views. COMPARISON: Comparison is made with prior study dated October 27, 2024. FINDINGS: The patient is status post right thoracentesis. There is no evidence of pneumothorax. Residual pleural-parenchymal changes persist. RAD/Chest Insp/Exp 2 View IMPRESSION: Status post right thoracentesis. No evidence of pneumothorax. Electronically Signed: Amarjit Cruz MD at 9:32 EST ,
--- NOTE | 2024-11-09 08:50 | PCM.OPRPT ---
Problems Associated Problem List Diagnoses (1) Recurrent right pleural effusion: Multi Select Codes Radiology Radiology US Procedures: 46098 Thoracentesis Operative Report (Standard) Operative Information Date of Procedure: 11/09/24 Pre-Operative Diagnosis: right pleural effusion Post-Operative Diagnosis: right pleural effusion Surgery/Procedure Performed: ultrasound guided thoracentesis senior vice president & general counsel: No Type of Anesthesia: Local Procedure Start Time: 08:14 Procedure Stop Time: 08:30 Select all DRAINS/GRAFTS/IMPLANTS that apply: None Estimated Blood Loss: 0 Specimen collected: No Description of surgery: PROCEDURE: Ultrasound Guided Thoracentesis ORDERING PROVIDER: CRISTÓBAL Gilman INDICATION: Male, 79 years old. Pleural effusion. PROVIDER: Sarah Stephens CNP PROCEDURE: The risks, benefits, and alternatives to the procedure were explained to the patient. The specific risks of bleeding, infection, and pneumothorax requiring chest tube insertion were discussed and accepted. Written informed consent was obtained. The patient was placed in the sitting, upright position. Ultrasonographic evaluation of the bilateral lower pleural spaces was carried out. An adequate pocket was identified in the right lower lobe. The overlying skin was prepped with chlorhexidine and draped in sterile fashion. 2 % lidocaine was administered subcutaneously for local anesthesia. Under ultrasound guidance, a 5-[place] thoracentesis needle/catheter system was advanced into the right posterior lower pleural fluid collection. 1240 ml of pink-tinged colored fluid was drained. The catheter was removed, and a sterile dressing was applied. The patient tolerated the procedure well. A chest x-ray was ordered. IMPRESSION: Successful ultrasound guided thoracentesis of right pleural effusion. Surgical Findings: None Complications Complications: No
== END | disposition home or self-care (01) ==
PROVIDERS: PCP Nurse Practitioner Family; Referring Provider Physician Assistant Medical; Visit Provider Physician Assistant Medical
DX: J90 Pleural effusion, not elsewhere classified (principal)
CPT/HCPCS: 32555; 71046

== ENCOUNTER 2024-11-13 11:26 | Outpatient (RCR) | payer MEDICARE, SELFPAY ==
[2024-11-13 12:05] LABS: Absolute Lymphocyte Count 0.33 X10^3/uL (0.83-4.51); Absolute Neutrophil Count 3.2 X10^3/uL (2.0-7.7); Basophil# 0.03 X10^3/uL; Basophil% 0.7 % (0-1); Eosinophil# 0.14 X10^3/uL; Eosinophils% 3.3 % (0-5); Hematocrit 39.4 % (40-54); Hemoglobin 12.2 g/dL (13.0-16.5); Lymphocyte # 0.33 X10^3/ul (0.83-4.51); Lymphocyte % 7.9 % (19-41); Mean Corpuscular Hgb 24.5 pg (27.0-32.0); Mean Corpuscular Volume 79.1 fL (80-94); Monocyte# 0.44 X10^3/uL; Monocyte% 10.5 % (0-10); NRBC Flagged by Analyzer 0 % (0-5); Neutrophil # 3.23 X10^3/uL (2.7-7.7); Neutrophil % 77.1 % (47-70); POSITIVE DIFFERENTIAL YES; Platelet Count 120 K/mm3 (150-450); RBC Distribution Width CV 16.8 % (11.6-14.6); RBC Distribution Width SD 47.8 fl (35.1-43.9); Red Blood Count 4.98 M/mm3 (4.6-6.2); White Blood Count 4.2 K/mm3 (4.4-11.0)
== END 2024-11-13 18:00 | disposition home or self-care (01) ==
LOC: LAB 11:26
PROVIDERS: PCP Nurse Practitioner Family; Referring Provider Nurse Practitioner Family; Visit Provider Nurse Practitioner Family
DX: D60.9 Acquired pure red cell aplasia, unspecified (principal)
CPT/HCPCS: 36415; 85025

== ENCOUNTER → 2024-11-28 | Outpatient (CLI) | payer MEDICARE, SELFPAY ==
[2024-11-28 10:01] LABS: Anion Gap 6 (5-15); BUN 55 mg/dL (7-18); Calcium,Total 8.7 mg/dL (8.5-10.1); Chloride 105 mmol/L (98-107); Creatinine, Serum 2.29 mg/dL (0.70-1.30); EST Glomerular Filtration Rate 30 mL/min (>60); Est Glom Filt Rate - Afr Amer 36 mL/min (>60); Glucose 170 mg/dL (74-106); Potassium 4.3 mmol/L (3.5-5.1); Sodium Level 135 mmol/L (136-145)
== END | disposition home or self-care (01) ==
LOC: LAB 09:22
PROVIDERS: PCP Nurse Practitioner Family; Referring Provider Internal Medicine Nephrology; Visit Provider Internal Medicine Nephrology
DX: N17.9 Acute kidney failure, unspecified (principal)
CPT/HCPCS: 36415; 80048; 82043; 82570

== ENCOUNTER 2024-12-16 23:28 | Emergency (ER) | payer OTHER, SELFPAY ==
[2024-12-16 23:29] VITALS: BP 144/55; PULSE 80; RESP 18; TEMP 36.3; O2SAT 98; BMI 27.8
[2024-12-17 01:20] LABS: Anion Gap 6 (5-15); BUN 59 mg/dL (7-18); BUN/Creat Ratio 25.3 RATIO (10-20); Calcium,Total 8.6 mg/dL (8.5-10.1); Chloride 105 mmol/L (98-107); Creatinine, Serum 2.33 mg/dL (0.70-1.30); EST Glomerular Filtration Rate 29 mL/min (>60); Est Glom Filt Rate - Afr Amer 35 mL/min (>60); Glucose 170 mg/dL (74-106); Potassium 4.7 mmol/L (3.5-5.1); Sodium Level 136 mmol/L (136-145)
[2024-12-17 01:28] VITALS: BP 126/53; PULSE 70; RESP 15; O2SAT 97
--- NOTE | 2024-12-17 01:52 | EX.ED.DYSGE1 ---
HPI History of Present Illness Chief Complaint: Abn Labs Informant: patient and spouse/S.O. Narrative Narrative: Patient is a 79-year-old male with past medical history of chronic kidney disease congestive heart failure hypertension and hyperlipidemia. He states he had standard outpatient laboratory studies done today. He reports this evening he received a phone call from the [place] stating his potassium level was critically high and that he needs to go to the emergency department right away. The patient states he was told his potassium value was 6. He states that he does not have any symptoms such as chest pain weakness headache change in vision nausea or vomiting but as he was told to go to the ER he presents for evaluation. [facility] Medical History (Updated 12/17/24 @ 05:[address] Miguel Tierney, DO) Recurrent right pleural effusion Renal insufficiency Acute hyperkalemia Anemia Pleural effusion on right Acute upper GI bleed Acute non-ST elevation myocardial infarction (NSTEMI) Carotid artery disease CAD (coronary artery disease) Alcohol use Thyroid nodule Insulin dependent diabetes mellitus Diabetes History of renal disease Dietary restriction History of stress test Wears glasses Wears partial dentures Gout Low iron Shortness of breath on exertion Former smoker History of echocardiogram Cardiology follow-up encounter History of heart attack Acute on chronic diastolic (congestive) heart failure Non-rheumatic mitral regurgitation Essential (primary) hypertension Diabetes mellitus type II, controlled Hyperlipidemia Atherosclerotic 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[place] coronary artery without angina pectoris (09/06/23) Ischemic cardiomyopathy Occlusion and stenosis of right carotid artery Home Medications ?Medication ?Instructions ?Recorded ?Last Taken ?Type amlodipine 10 mg tablet 10 mg PO DAILY BLOOD PRESSURE #90 07/11/21 09/03/23 Rx tabs cyanocobalamin (vitamin B-12) 1,000 mcg subcut QMONTH SUPPLEMENT 07/10/22 09/11/22 History 1,000 mcg/mL injection kit multivitamin 1 tab PO DAILY SUPPLEMENT 07/23/23 09/02/23 History atorvastatin 40 mg tablet 40 mg PO QHS CHOLESTEROL 30 days 09/07/23 Unknown Rx #30 tabs furosemide 40 mg tablet 40 mg PO DAILY FLUID 10/02/23 Unknown History empagliflozin 25 mg tablet 25 mg PO DAILY DIABETES 01/20/24 Unknown History (Jardiance) ferrous sulfate 325 mg (65 mg 325 mg PO DAILY Anemia 06/16/24 07/14/24 History iron) tablet pantoprazole 40 mg tablet,delayed 40 mg PO BID 30 days #60 tabs 07/16/24 Unknown Rx release lactulose 10 gram/15 mL oral 20 g (30 mL) PO TID #3,785 mL 08/20/24 Unknown Rx solution insulin aspart U-100 100 unit/mL 14 unit subcut TIDCM DIABETES 09/09/24 Unknown History (3 mL) subcutaneous pen insulin glargine 100 unit/mL (3 38 unit subcut DAILY DIABETES 09/09/24 Unknown History mL) subcutaneous pen carvedilol 3.125 mg tablet 3.125 mg PO BID #60 tabs 09/10/24 Unknown Rx spironolactone 25 mg tablet 25 mg PO QAM #90 tabs 10/29/24 Unknown Rx Allergy/AdvReac Type Severity Reaction Status Date / Time doxycycline Allergy hives Verified 12/16/24 23:28 Iodinated Contrast Media AdvReac Severe unresponsiv Verified 12/16/24 23:28 (contrast dye - iodinated) e Family History Father CAD (coronary artery disease) Hx CABG x4 vessels Myocardial infarction, Onset Age: 50 Mother Breast cancer Other Acute on chronic diastolic (congestive) heart failure Surgical History History of thoracentesis History of coronary artery stent placement Hx of colonoscopy History of left heart catheterization (09/22/18) History of mitral valve replacement with bioprosthetic valve (09/26/18) History of coronary artery stent placement (09/06/23) Social History Smoking Status: Former smoker how long ago did patient quit smokin alcohol intake: current Alcohol type: beer substance use type: does not use caffeine: Yes Type: coffee what type of physical activity do you participate in: other details: occasional rowing machine, biking frequency: other details: occasional rowing machine, biking duration: other details: occasional rowing machine, biking seatbelt use: always do you feel safe at home: Yes ROS ROS ED Constitutional Constitutional ED: Denies chills or fever(s) Eyes Eyes: Denies blurry vision or change in vision ENT ENT ED: Denies sore throat Cardiovascular Cardiovascular: Denies chest pain, palpitations or racing heartbeat Respiratory/Chest Respiratory/Chest: Denies cough or dyspnea Gastrointestinal Gastrointestinal: Denies abdominal pain, diarrhea, nausea or vomiting Genitourinary Genitourinary ED: Denies dysuria Musculoskeletal Musculoskeletal: Denies myalgias Integumentary Denies rash Neurologic Neurologic: Denies headache(s), paresthesias or weakness Hematologic/Lymphatic Hematologic/Lymphatic: Reports easy bleeding and easy bruising EXAM Physical Exam Const Vital Signs: 12/16/24 23:29 12/17/24 00:51 12/17/24 01:28 Temperature 97.4 F L Temperature Source Temporal Pulse Rate 80 70 Respiratory Rate 18 15 Respiratory Effort Normal Non-Labored Respiratory Pattern Normal Blood Pressure 144/55 H 126/53 H Blood Pressure Mean 84 77 Pulse Ox 98 97 Oxygen Delivery Method Room Air Room Air 12/17/24 02:03 Temperature 98.2 F Temperature Source Pulse Rate 68 Respiratory Rate 17 Respiratory Effort Respiratory Pattern Blood Pressure 142/66 H Blood Pressure Mean 91 Pulse Ox 97 Oxygen Delivery Method Positive well nourished and well developed General Appearance ED: well developed; Negative for pallor HEENT HEENT Narrative: Normocephalic atraumatic Eyes PERRL and EOMs intact bilaterally Neck supple and no JVD Resp normal respiratory effort and clear to auscultation bilaterally Cardio regular rate and regular rhythm GI normal to inspection, nondistended, normoactive bowel sounds, non-tender, non-distended and no masses Auscultation: normoactive bowel sounds Palpation: soft Extremity normal to inspection Extremity Narrative: No asymmetric edema no pitting edema negative Homans' sign bilaterally Neuro oriented x3, CN's II-XII intact bilaterally and no sensory deficits noted Sensorium / Orientation: alert Motor Exam: strength 5/5 throughout Psych mental status grossly normal Skin no rashes or lesions noted General Skin Exam: Negative for jaundice or pallor MDM MDM MDM Narrative Medical decision making narrative: Patient arrived to the ER slightly hypertensive but otherwise with stable vitals. He had no complaints upon arrival and states he is simply here because he was advised that he should come to the ER secondary to the abnormal outpatient labs. At this time the patient most likely had a hemolyzed potassium sample. Therefore as he has no symptoms I do not feel the need for workup other than a basic metabolic profile. The profile showed a potassium value which is normal at 4.7 indicating his value of 6 from earlier in the day was hemolyzed. Patient's creatinine is elevated 2.33 but this is stable and chronic as he has a history of chronic kidney disease. Therefore at this time the patient has stable vitals no symptoms and overall normal physical exam and his potassium is normal going against true electrolyte abnormality and is otherwise safe for discharge History & Record Review Discussion w/independent historian: Patient and Significant other Lab Data Attestation: I reviewed the patient's lab results. Labs: Laboratory Results - last 24 hr 12/17/24 00:45 Sodium 136 Potassium 4.7 Chloride 105 Carbon Dioxide 25.0 Anion Gap 6 BUN 59 H Creatinine 2.33 H Estim Creat Clear Calc 30.60 Est GFR (MDRD) Af Amer 35 L Est GFR (MDRD) Non-Af 29 L BUN/Creatinine Ratio 25.3 H Glucose 170 H Calcium 8.6 Discharge Plan Triage Chief Complaint: Abn Labs ED Provider: Miguel Tierney Dx/Rx/DC Orders Clinical Impression: Chronic kidney disease, stage 3b, Essential (primary) hypertension, Hyperlipidemia, CHF (congestive heart failure) Instructions: ED Chronic Kidney Disease (CKD) Prescriptions: No Action amlodipine 10 mg tablet 10 mg PO DAILY Qty: 90 3RF cyanocobalamin (vitamin B-12) 1,000 mcg/mL kit 1,000 mcg subcut QMONTH Patient Comments: PATIENT INJECTS THIS ONCE A MONTH ON THE . multivitamin Tablet 1 tab PO DAILY Jardiance 25 mg tablet 25 mg PO DAILY Rx Instructions: Will start when current supply of chineduClickpass is finished ferrous sulfate 325 mg (65 mg iron) tablet 325 mg PO DAILY Rx Instructions: 2 tabs daily atorvastatin 40 mg Tablet 40 mg PO QHS 30 Days Qty: 30 0RF insulin aspart U-100 100 unit/mL (3 mL) insulin pen 14 unit subcut TIDCM Rx Instructions: Hold if glucose less than 130 mg/dl insulin glargine 100 unit/mL (3 mL) insulin pen 38 unit subcut DAILY carvedilol 3.125 mg tablet 3.125 mg PO BID Qty: 60 0RF Rx Instructions: must administer with a meal/food pantoprazole 40 mg Tablet,Delayed Release (Dr/Ec) 40 mg PO BID 30 Days Qty: 60 2RF furosemide 40 mg tablet 40 mg PO DAILY lactulose 10 gram/15 mL solution 20 g PO TID Qty: 3785 3RF spironolactone 25 mg tablet 25 mg PO QAM Qty: 90 3RF Primary Care Provider: Angie Cheng Referrals: Angie Cheng, [employer] [Primary Care Provider] - Activity Restrictions/Additional Instructions: Your repeat blood work this evening showed a normal potassium at a value of 4.7. This indicates your blood work from earlier in the day had hemolyzed causing a falsely elevated potassium. There is nothing further you need to do at this time other than take your medications as directed by your doctor and return to the ER should you have any further concerns. Print Language: [place] Island[place] Disposition Disposition: Home, Self Care Discharge Date/Time: 12/17/24 02:04
[2024-12-17 02:03] VITALS: BP 142/66; PULSE 68; RESP 17; TEMP 36.8; O2SAT 97
== END 2024-12-17 02:04 | disposition home or self-care (01) ==
PROVIDERS: Emergency Provider Emergency Medicine; PCP Nurse Practitioner Family; Visit Provider Emergency Medicine
DX: I13.0 Hypertensive heart and chronic kidney disease with heart failure and stage 1 through stage 4 chronic kidney disease, or unspecified chronic kidney disease (principal); I50.9 Heart failure, unspecified; E11.22 Type 2 diabetes mellitus with diabetic chronic kidney disease; N18.32 Chronic kidney disease, stage 3b; I25.10 Atherosclerotic 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native coronary artery without angina pectoris; I25.2 Old myocardial infarction; Z87.891 Personal history of nicotine dependence; Z95.5 Presence of coronary angioplasty implant and graft
CPT/HCPCS: 80048; 99282; A4216

== ENCOUNTER → 2024-12-18 | Outpatient (CLI) | payer MEDICARE, SELFPAY ==
--- NOTE | 2024-12-18 08:45 | CDU_ITS ---
Reason For Study Reason For Study: S/P R CEA Rt. Velocities/BP Lt. Velocities/BP Prox CCA 67.7/6.2 cm/sec. Prox CCA 53.9/0.0 cm/sec. Mid CCA 68.8/12.7 cm/sec. Mid CCA 46.5/0.0 cm/sec. Dist CCA 76.5/11.7 cm/sec. Dist CCA 39.2/0.0 cm/sec. Prox ICA 56.7/0.0 cm/sec. Prox ICA 56.4/12.2 cm/sec. Mid ICA 75.4/17.1 cm/sec. Mid ICA 80.6/16.7 cm/sec. Dist ICA 76.0/12.0 cm/sec. Dist ICA 65.8/15.5 cm/sec. Rt. ICA/CCA = 1.1. Lt. ICA/CCA = 1.7. Prox ECA 280.1/25.5 cm/sec. Prox ECA 457.2/36.5 cm/sec. Lt. Vert. 159.4/21.1 cm/sec. Right Extracranial There is intimal thickening but no significant atherosclerotic plaque noted in the right common carotid artery. There is heterogeneous, smooth atherosclerotic plaque noted in the right internal carotid artery. There is heterogeneous, irregular atherosclerotic plaque noted in the right external carotid artery. Bidirectional flow is noted in the right vertebral artery. Left Extracranial There is heterogeneous, irregular atherosclerotic plaque noted in the left common carotid artery. There is heterogeneous, irregular atherosclerotic plaque noted in the left internal carotid artery. There is heterogeneous, irregular atherosclerotic plaque noted in the left external carotid artery. Antegrade flow is noted in the left vertebral artery. Procedure Carotid Duplex 39446. This is a Carotid Duplex examination using B-mode, color flow and specral Doppler. Exam performed in department. VL/Carotid Duplex Ultrasound Interpretation Summary Mild (<50%) stenosis right extracranial internal carotid. Mild (<50%) stenosis left extracranial internal carotid. Limited due to calcifi c shadowing The Right vertebral flow is bidirectional. The Left vertebral is patent and antegrade. Ordering Physician: Cathleen Hernandez Referring Physician: Cathleen Hernandez Performed By: Nini Collado RVT and Student
== END | disposition home or self-care (01) ==
LOC: CVS 08:44
PROVIDERS: PCP Nurse Practitioner Family; Referring Provider Physician Assistant; Visit Provider Physician Assistant
DX: I65.21 Occlusion and stenosis of right carotid artery (principal)
CPT/HCPCS: 93880

== ENCOUNTER 2024-12-23 17:11 | Emergency (ER) | payer OTHER, SELFPAY ==
[2024-12-23] VITALS (9 sets, daily range): BP systolic 133–152; BP diastolic 40–62; PULSE 36–51; RESP 16–18; TEMP 36.6–36.7; O2SAT 94–98; BMI 27.7
--- NOTE | 2024-12-23 17:17 | EKG12_ITS ---
Test Reason : CP RASHID Blood Pressure : */* mmHG Vent. Rate : 38 BPM Atrial Rate : 38 BPM P-R Int : 216 ms QRS Dur : 120 ms QT Int : 546 ms P-R-T Axes : 37 -51 55 degrees QTcB Int : 434 ms Critical Test Result: Low HR Marked sinus bradycardia with 1st degree A-V block Left anterior fascicular block Right bundle branch block Inferior infarct , age undetermined Abnormal ECG Confirmed by Joaquin Bueno ([id number]), field map editor SHERIN FOSTER ([id number]) on 12/24/2024 9:33:37 AM Referred By: Confirmed By: Joaquin Bueno
--- NOTE | 2024-12-23 17:45 | RAD_ITS ---
PROCEDURE: CHEST 1 VIEW (PORTABLE) REASON FOR EXAM: 79-year-old male, chest pain. Low heart rate. TECHNIQUE: Frontal view of the chest. COMPARISON: Chest radiograph 11/09/2024. FINDINGS: Prior aortic valve replacement. Stable severe cardiomegaly with dilation of the pulmonary vasculature. Slight increased size of the moderate right pleural effusion. No focal consolidation or pneumothorax. Degenerative changes are identified within the thoracic spine. Lower neck surgical clips and surgical clips overlying the right lateral heart, unchanged. RAD/Chest 1 View (Portable) IMPRESSION: Findings of CHF/volume overload including severe cardiomegaly and moderate righ t pleural effusion. Reading Location: [id number]
[2024-12-23 17:55] LABS: Absolute Lymphocyte Count 0.41 X10^3/uL (0.83-4.51); Absolute Neutrophil Count 3.2 X10^3/uL (2.0-7.7); Basophil# 0.03 X10^3/uL; Basophil% 0.7 % (0-1); Eosinophils% 2.3 % (0-5); Hematocrit 39.2 % (40-54); Hemoglobin 12.5 g/dL (13.0-16.5); Lymphocyte # 0.41 X10^3/ul (0.83-4.51); Lymphocyte % 9.6 % (19-41); Mean Corp Hgb Conc 31.9 g/dL (32-36); Mean Corpuscular Hgb 25.5 pg (27.0-32.0); Mean Corpuscular Volume 79.8 fL (80-94); Mean Platelet Vol. 10.6 fl (6.2-12.0); Monocyte% 11.7 % (0-10); NRBC Flagged by Analyzer 0 % (0-5); Neutrophil # 3.21 X10^3/uL (2.7-7.7); Neutrophil % 75.2 % (47-70); POSITIVE DIFFERENTIAL YES; Platelet Count 109 K/mm3 (150-450); RBC Distribution Width CV 17.7 % (11.6-14.6); RBC Distribution Width SD 50.4 fl (35.1-43.9); Red Blood Count 4.91 M/mm3 (4.6-6.2); White Blood Count 4.3 K/mm3 (4.4-11.0)
--- NOTE | 2024-12-23 18:21 | EDS_ITS ---
HPI History of Present Illness Chief Complaint: Chest Pain Narrative Narrative: Chief complaint and HPI: Bradycardia. 79-year-old male with past medical history of CAD status post PCI, carotid stenosis status post enterectomy, CHF, DM, HTN, HLD presents for evaluation of bradycardia. Patient [facility] He was found to be bradycardic into the 30s. Medication doran he takes carvedilol 3.25 mg twice daily and amlodipine 10 mg daily. 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 He called the cardiology office in which she follows with Dr. Blanchard. They could not see the patient in the office until Saturday. [facility] told the patient to continue to monitor his heart rate at home. If he develops symptoms he needs to go to the emergency department. Patient states at home he developed some lightheadedness and chest heaviness/pain. He states his heart rate was 34 so he decided to present to the emergency department. Currently states his chest heaviness/pain has resolved. States he is not allowed to take aspirin or Plavix secondary to a previous GI bleed. Denies any shortness of breath, nausea, vomiting, abdominal pain. Denies any bilateral lower extremity swelling or pain. Review of systems: See HPI Medications: As listed on the chart Allergies: As listed on the chart PFSH: Per chart Vital signs: As listed on the chart. Reviewed. Physical exam: Gen: A&O x3, NAD Head: Normocephalic, atraumatic Eyes: No sclera icterus, conjunctiva clear ENT: Moist mucous membranes Neck: Trachea midline CV: Bradycardic, regular rhythm, no murmurs, no peripheral edema Resp: Lungs CTA BL but diminished in the right base compared to the left, no wheezing GI: Abd soft, non-distended, non-tender, no r/r/g Musc: Full ROM, no deformity Skin: Warm, dry Neuro: Alert, oriented, grossly intact, sensation intact Psych: Cooperative, appropriate mood and affect [facility] Medical History Recurrent right pleural effusion Renal insufficiency Acute hyperkalemia Anemia Pleural effusion on right Acute upper GI bleed Acute non-ST elevation myocardial infarction (NSTEMI) Carotid artery disease CAD (coronary artery disease) Alcohol use Thyroid nodule Insulin dependent diabetes mellitus Diabetes History of renal disease Dietary restriction History of stress test Wears glasses Wears partial dentures Gout Low iron Shortness of breath on exertion Former smoker History of echocardiogram Cardiology follow-up encounter History of heart attack Acute on chronic diastolic (congestive) heart failure Non-rheumatic mitral regurgitation Essential (primary) hypertension Diabetes mellitus type II, controlled Hyperlipidemia Atherosclerotic 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[place] coronary artery without angina pectoris (09/06/23) Ischemic cardiomyopathy Occlusion and stenosis of right carotid artery Home Medications ?Medication ?Instructions ?Recorded ?Last Taken ?Type amlodipine 10 mg tablet 10 mg PO DAILY BLOOD PRESSUR E #90 07/11/21 09/03/23 Rx tabs cyanocobalamin (vitamin B-12) 1,000 mcg subcut QMONTH SUPPLEMENT 07/10/22 09/11/22 History 1,000 mcg/mL injection kit multivitamin 1 tab PO DAILY SUPPLEMENT 09/02/23 History atorvastatin 40 mg tablet 40 mg PO QHS CHOLESTEROL 30 days 09/07/23 Unknown Rx #30 tabs furosemide 40 mg tablet 40 mg PO DAILY FLUID 3 Unknown History empagliflozin 25 mg tablet 25 mg PO DAILY DIABETES Unknown History (Jardiance) ferrous sulfate 325 mg (65 mg 325 mg PO DAILY Anemia 0 06/16/24 07/14/24 History iron) tablet pantoprazole 40 mg tablet,delayed 40 mg PO BID 30 days #60 tabs 07/16/24 Unknown Rx release insulin aspart U-100 100 unit/mL 18 unit subcut TIDCM DIABETES 09/09/24 Unknown History (3 mL) subcutaneous pen insulin glargine 100 unit/mL (3 40 unit subcut DAILY D IABETES 09/09/24 Unknown History mL) subcutaneous pen carvedilol 3.125 mg tablet 3.125 mg PO BID #60 tabs Unknown Rx Held on 12/23/24. Instructions: Bradycardia spironolactone 25 mg tablet 25 mg PO QAM #90 tabs 12/22 Unknown Rx cholecalciferol (vitamin D3) 50 50 mcg PO DAILY Unknown History mcg (2,000 unit) capsule (Vitamin D3) Allergy/AdvReac Type Severity Reaction Status Date / Time doxycycline Allergy hives Verified 12/23/24 17:14 Iodinated Contrast Media AdvReac Severe unresponsiv Verified 12/23/24 17:14 (contrast dye - iodinated) e Family History Father CAD (coronary artery disease) Hx CABG x4 vessels Myocardial infarction, Onset Age: 50 Mother Breast cancer Other Acute on chronic diastolic (congestive) heart failure Surgical History History of thoracentesis History of coronary artery stent placement Hx of colonoscopy History of left heart catheterization (09/22/18) History of mitral valve replacement with bioprosthetic valve (09/26/18) History of coronary artery stent placement (09/06/23) Social History Smoking Status: Former smoker how long ago did patient quit smokin alcohol intake: current Alcohol type: beer substance use type: does not use caffeine: Yes Type: coffee what type of physical activity do you participate in: other details: occasional rowing machine, biking frequency: other details: occasional rowing machine, biking duration: other details: occasional rowing machine, biking seatbelt use: always do you feel safe at home: Yes EXAM Physical Exam Const Vital Signs: 12/23/24 17:15 12/23/24 17:37 12/23/24 17:37 Temperature 98 F Temperature Source Oral Pulse Rate 38 L Respiratory Rate 18 Respiratory Effort Normal Blood Pressure 150/43 H Blood Pressure Mean 78 Pulse Ox 97 98 Oxygen Delivery Method Room Air 12/23/24 18:19 12/23/24 19:37 12/23/24 20:00 Temperature Temperature Source Pulse Rate 40 L 41 L 51 L Respiratory Rate 17 18 16 Respiratory Effort Blood Pressure 138/40 H 143/62 H 152/44 H Blood Pressure Mean 72 89 80 Pulse Ox 98 95 94 Oxygen Delivery Method Room Air Room Air Room Air 12/23/24 21:00 12/23/24 22:00 12/23/24 22:34 Temperature 98.1 F Temperature Source Pulse Rate 40 L 36 L 40 L Respiratory Rate 18 16 18 Respiratory Effort Blood Pressure 141/49 H 137/45 H 137/46 H Blood Pressure Mean 79 75 76 Pulse Ox 97 97 97 Oxygen Delivery Method Room Air MDM MDM MDM Narrative Medical decision making narrative: 79-year-old male with past medical history of CAD status post PCI, carotid stenosis status post enterectomy, CHF, DM, HTN, HLD presents for evaluation of bradycardia. Associated symptoms are lightheadedness and resolved chest heaviness/pain. Differential diagnosis includes but is not limited to medication side effect, AV block, electrolyte abnormality, ACS, CHF. On chart review, patient follows with [place] [facility]. His last echocardiogram was September 2024 in which his EF was 25%His last cardiac catheterization was August 2023 in which he received PCI. On presentation, patient is bradycardic. His heart rate fluctuates from the low 30s to the low 50s. Blood pressure mildly hypertensive. Cardiac workup ordered. EKG and chest x-ray reviewed see below. CBC with baseline pancytopenia. INR 1.2. BMP shows mild hyperkalemia 5.4. Creatinine 2.3 and BUN of 54, this is patient's baseline CKD. Magnesium level unremarkable. BNP elevated at 2362. BNP and chest x-ray are consistent with CHF exacerbation. Lasix IV ordered. Troponin 57. Concern is for NSTEMI. Delta troponin pending. Given patient's symptomatic bradycardia with elevated troponin/concern for NSTEMI cardiology was consulted and patient was discussed with Dr. Bueno. Recommendation is for patient to be transferred to [facility] for pacemaker placement. He agrees concern is for NSTEMI and agrees with starting heparin as well as aspirin despite patient's history of GI bleed. Patient and family updated of all the results and confirmed understanding of the plan. I spoke with [facility] digital sales assistant Dr. Tay. He accepted transfer. He agrees with the treatment that was given thus far. Patient will be monitored in emergency department until transport can be arranged. Second troponin did result with improvement. Second troponin 50. On reevaluation, patient is still bradycardic. His blood pressure is stable. His chest pain is still resolved. Patient will be transferred to [facility]. EKG: Interpreted by me/EM physician: EKG shows sinus bradycardia with first-degree AV block. Heart rate 38. Right bundle branch block. Right bundle branch block is new from previous EKG. Nonspecific ST changes. Diagnostic: Interpreted by me/EM physician: Chest x-ray with cardiomegaly and pulmonary congestion. Patient has increased right pleural effusion. Impression: 1. Symptomatic bradycardia with first-degree AV block 2. CHF exacerbation 3. NSTEMI 5. History of pancytopenia 6. CKD Lab Data Labs: Laboratory Results - last 24 hr 12/23/24 12/23/24 12/23/24 17:36 19:13 21:53 WBC 4.3 L RBC 4.91 Hgb 12.5 L Hct 39.2 L MCV 79.8 L MCH 25.5 L MCHC 31.9 L RDW Std Deviation 50.4 H RDW Coeff of Ngoc 17.7 H Plt Count 109 L MPV 10.6 Immature Gran % (Auto) 0.500 Neut % (Auto) 75.2 H Lymph % (Auto) 9.6 L Parker % (Auto) 11.7 H Eos % (Auto) 2.3 Baso % (Auto) 0.7 Absolute Neuts (auto) 3.2 Absolute Lymphs (auto) 0.41 L Nucleated RBC % 0 PT 15.9 H INR 1.2 APTT 31.1 Sodium 134 Potassium 5.4 H Chloride Direct 101 Carbon Dioxide 20.1 L Anion Gap 13 BUN 54 H Creatinine 2.3 H Estim Creat Clear Calc 28.65 Est GFR (MDRD) Non-Af 29 L BUN/Creatinine Ratio 23.6 H Glucose 144 H Calcium 8.7 Magnesium 1.5 Troponin T High Sens 57 H* Troponin T Hi Sens 2 Hr 50 H Troponin T Hi Sens 2Hr Delta 7 B-Natriuretic Peptide Cancelled NT pro BNP II 2362 H POC Glucose 79 Radiography Diagnostic Testing: Clinical Impression(s) from Imaging Studies Chest X-Ray 12/23/24 17:45 IMPRESSION: Findings of CHF/volume overload including severe cardiomegaly and moderate right pleural effusion. Reading Location: [facility] Discharge Plan Triage Chief Complaint: Chest Pain ED Provider: Jono Rodriguez Dx/Rx/DC Orders Prescriptions: No Action amlodipine 10 mg tablet 10 mg PO DAILY Qty: 90 3RF cyanocobalamin (vitamin B-12) 1,000 mcg/mL kit 1,000 mcg subcut QMONTH Patient Comments: PATIENT INJECTS THIS ONCE A MONTH ON THE . multivitamin Tablet 1 tab PO DAILY Jardiance 25 mg tablet 25 mg PO DAILY Rx Instructions: Will start when current supply of farxiga is finished ferrous sulfate 325 mg (65 mg iron) tablet 325 mg PO DAILY Rx Instructions: 2 tabs daily atorvastatin 40 mg Tablet 40 mg PO QHS 30 Days Qty: 30 0RF insulin aspart U-100 100 unit/mL (3 mL) insulin pen 18 unit subcut TIDCM Rx Instructions: Hold if glucose less than 130 mg/dl insulin glargine 100 unit/mL (3 mL) insulin pen 40 unit subcut DAILY carvedilol 3.125 mg tablet 3.125 mg PO BID Qty: 60 0RF Rx Instructions: must administer with a meal/food pantoprazole 40 mg Tablet,Delayed Release (Dr/Ec) 40 mg PO BID 30 Days Qty: 60 2RF cholecalciferol (vitamin D3) [Vitamin D3] 50 mcg (2,000 unit) capsule 50 mcg PO DAILY furosemide 40 mg tablet 40 mg PO DAILY spironolactone 25 mg tablet 25 mg PO QAM Qty: 90 3RF Primary Care Provider: Angie Cheng Referrals: Angie Cheng, [employer] MEMBER-C [Primary Care Provider] - Print Language: [place]ish
[2024-12-23 18:38] LABS: International Normalized Ratio 1.2; Prothrombin Time (Protime)PT. 15.9 SECONDS (11.7-14.9)
[2024-12-23 18:39] LABS: Partial Thromboplast Time 31.1 Seconds (24.1-36.2)
[2024-12-23 19:11] LABS: Pro- Brain NATRIURETIC PEPTIDE 2362 pg/mL (<=1800)
[2024-12-23 19:32] LABS: Bedside Glucose 79 mg/dL (74-106)
[2024-12-23 19:36] LABS: BUN 54 mg/dL (4-19); BUN/Creat Ratio 23.6 RATIO (10-20); Calcium 8.7 mg/dL (7.6-11.0); Carbon Dioxide 20.1 mmol/L (22.0-29.0); Creatinine, Serum 2.3 mg/dL (0.8-1.3); EST Glomerular Filtration Rate 29 (>60); Estimated Creatinine Clearance 28.65 ml/min; Glucose 144 mg/dL (70-99)
[2024-12-23 19:58] LABS: Anion Gap 13 (5-15); Chloride 101 mmol/L (96-108); Potassium 5.4 mmol/L (3.3-5.1); Sodium Level 134 mmol/L (133-145)
[2024-12-23] MEDS: Furosemide 40 MG/4 ML Vial IV (20:22)
[2024-12-23] MEDS: Aspirin 81 MG TAB.CHEW 324 MG PO (20:22)
[2024-12-23] MEDS: HEPARIN/D5w 25,000 UNITS 25,000 UNITS/250 ML IV.SOLN. 10 UNITS CONT INF (20:36)
[2024-12-23] MEDS: Heparin Injection (Vial) 5,000 UNIT/ML VIAL 4000 UNIT IV (20:37)
--- NOTE | 2024-12-23 20:44 | ED.RN ---
called [facility] to make them aware pt will be transferred to [facility], spoke to bed control. Gave them requested info of admitting diagnosis and name.
--- NOTE | 2024-12-23 21:38 | ED.RN ---
called [facility] to arrange transport for pt, spoke to lisseth. eta is 3-4 hours ([id number]) requested outsourcing for possible sooner transport.
[2024-12-23 22:25] LABS: Magnesium 1.5 mg/dL (1.5-2.2); TROPONIN VARIANCE 2 HR 7; Troponin T High Sens 2 HR 50 ng/L (<=22)
[2024-12-29 04:48] LABS: Troponin T High Sensitivity 57 ng/L (<=22)
== END 2024-12-24 00:05 | disposition short-term general hospital (02) ==
PROVIDERS: Emergency Provider Surgery; PCP Nurse Practitioner Family; Visit Provider Surgery
DX: I13.0 Hypertensive heart and chronic kidney disease with heart failure and stage 1 through stage 4 chronic kidney disease, or unspecified chronic kidney disease (principal); I50.9 Heart failure, unspecified; I21.4 Non-ST elevation (NSTEMI) myocardial infarction; E11.22 Type 2 diabetes mellitus with diabetic chronic kidney disease; Z79.4 Long term (current) use of insulin; R00.1 Bradycardia, unspecified; E78.5 Hyperlipidemia, unspecified; I25.10 Atherosclerotic 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native coronary artery without angina pectoris; N18.9 Chronic kidney disease, unspecified; I44.0 Atrioventricular block, first degree; Z79.899 Other long term (current) drug therapy; Z87.891 Personal history of nicotine dependence; Z95.5 Presence of coronary angioplasty implant and graft
CPT/HCPCS: 71045; 80048; 82962; 83735; 83880; 84484; 85025; 85610; 85730; 93005; 96374; 99285; A4216; J1940

== ENCOUNTER → 2025-02-08 | Outpatient (CLI) | payer MEDICARE, SELFPAY ==
[2025-02-08 11:29] LABS: Absolute Lymphocyte Count 0.39 X10^3/uL (0.83-4.51); Absolute Neutrophil Count 2.5 X10^3/uL (2.0-7.7); Basophil# 0.03 X10^3/uL; Basophil% 0.9 % (0-1); Eosinophil# 0.08 X10^3/uL; Eosinophils% 2.4 % (0-5); Hematocrit 37.3 % (40-54); Hemoglobin 12.1 g/dL (13.0-16.5); Lymphocyte # 0.39 X10^3/ul (0.83-4.51); Lymphocyte % 11.5 % (19-41); Mean Corp Hgb Conc 32.4 g/dL (32-36); Mean Corpuscular Hgb 26.7 pg (27.0-32.0); Mean Corpuscular Volume 82.2 fL (80-94); Mean Platelet Vol. 10.4 fl (6.2-12.0); Monocyte# 0.37 X10^3/uL; Monocyte% 10.9 % (0-10); NRBC Flagged by Analyzer 0 % (0-5); Neutrophil # 2.51 X10^3/uL (2.7-7.7); POSITIVE DIFFERENTIAL YES; Platelet Count 101 K/mm3 (150-450); RBC Distribution Width CV 18.6 % (11.6-14.6); RBC Distribution Width SD 54.9 fl (35.1-43.9); Red Blood Count 4.54 M/mm3 (4.6-6.2); White Blood Count 3.4 K/mm3 (4.4-11.0)
[2025-02-08 11:41] LABS: ALB/GLOB Ratio 0.9 RATIO (0.9-2.4); AST(SGOT) 31 U/L (<=37); Alanine Aminotransfer ALT/SGPT 26 U/L (<=46); Albumin, Serum 3.6 g/dL (3.4-4.8); Alkaline Phosphatase 163 U/L (40-129); Anion Gap 12 (5-15); BUN 60 mg/dL (4-19); BUN/Creat Ratio 25.1 RATIO (10-20); Calcium,Total 8.8 mg/dL (7.6-11.0); Carbon Dioxide 21.3 mmol/L (21.0-32.0); Chloride 100 mmol/L (98-108); Creatinine, Serum 2.39 mg/dL (0.70-1.20); EST Glomerular Filtration Rate 27 (>60); Globulin 4.1 g/dL (2.2-4.2); Glucose 121 mg/dL (70-99); Iron 83 ug/dL (65-175); Potassium 5.1 mmol/L (3.3-5.1); Protein, Total 7.7 g/dL (5.9-8.4); Sodium Level 133 mmol/L (133-145); Total Bilirubin 0.54 mg/dL (0.00-1.30)
[2025-02-08 12:12] LABS: Hemoglobin A1c 7.4 % (<=5.6)
== END | disposition home or self-care (01) ==
LOC: LAB 11:02
PROVIDERS: PCP Nurse Practitioner Family; Referring Provider Nurse Practitioner Family; Visit Provider Nurse Practitioner Family
DX: D50.9 Iron deficiency anemia, unspecified (principal); E11.40 Type 2 diabetes mellitus with diabetic neuropathy, unspecified; I10 Essential (primary) hypertension
CPT/HCPCS: 36415; 80053; 83036; 83540; 85025

== ENCOUNTER → 2025-04-12 | Outpatient (CLI) | payer MEDICARE, SELFPAY ==
[2025-04-12 18:04] LABS: Anion Gap 14 (5-15); BUN 46 mg/dL (4-19); BUN/Creat Ratio 20.4 RATIO (10-20); Calcium,Total 8.7 mg/dL (7.6-11.0); Carbon Dioxide 22.3 mmol/L (21.0-32.0); Chloride 99 mmol/L (98-108); Creatinine, Serum 2.27 mg/dL (0.70-1.20); EST Glomerular Filtration Rate 29 (>60); Glucose 212 mg/dL (70-99); Potassium 4.8 mmol/L (3.3-5.1); Sodium Level 135 mmol/L (133-145)
[2025-04-12 18:14] LABS: Pro- Brain NATRIURETIC PEPTIDE 8349 pg/mL (<=1800)
== END | disposition home or self-care (01) ==
PROVIDERS: PCP Nurse Practitioner Family; Visit Provider Nurse Practitioner Family
DX: R63.5 Abnormal weight gain (principal)
CPT/HCPCS: 36415; 80048; 83880

== ENCOUNTER → 2025-04-13 | Outpatient (CLI) | payer MEDICARE, SELFPAY ==
--- NOTE | 2025-04-13 12:33 | RAD_ITS ---
PROCEDURE: CHEST PA AND LATERAL 04/13/2025 REASON FOR EXAM: ASSESS FOR FLUID OVERLOAD TECHNIQUE: CHEST PA AND LATERAL COMPARISON: Comparison is made with prior study dated December 23, 2024. FINDINGS: Hardware: EKG electrodes are seen. Heart: Prior mitral valve replacement. Mild cardiomegaly. Mediastinum: Calcification of the aortic arch. Lungs: Small right pleural effusion with right basilar infiltration and/or atelectasis. The left lung is clear. Bones: Degenerative changes are identified within the thoracic spine. RAD/Chest PA and Lateral IMPRESSION: Small right pleural effusion with underlying atelectasis and/or infiltration. Follow-up recommended. Reading Location: [place] [address]
== END | disposition home or self-care (01) ==
PROVIDERS: PCP Nurse Practitioner Family; Referring Provider Nurse Practitioner Family; Visit Provider Nurse Practitioner Family
DX: E87.70 Fluid overload, unspecified (principal)
CPT/HCPCS: 71046

== ENCOUNTER 2025-06-24 07:51 | Inpatient (IN) | payer MEDICARE, SELFPAY ==
[2025-06-24] VITALS (27 sets, daily range): BP systolic 97–144; BP diastolic 45–77; PULSE 65–89; RESP 7–25; TEMP 35.9–36.8; O2SAT 94–100; BMI 27.7; BMI 25.3
--- NOTE | 2025-06-24 07:54 | EKG12_ITS ---
Test Reason : CP Blood Pressure : */* mmHG Vent. Rate : 94 BPM Atrial Rate : 136 BPM P-R Int : * ms QRS Dur : 176 ms QT Int : 496 ms P-R-T Axes : * -79 102 degrees QTcB Int : 620 ms Ventricular-paced rhythm Abnormal ECG Confirmed by SABAS FRANKLIN ([id number]), newspaper managing editor GENA PARSONS ([id number]) on 06/29/2025 6:31:02 AM Referred By: [facility] Confirmed By: SABAS FRANKLIN
--- NOTE | 2025-06-24 08:08 | ED.VIS.CHEST ---
HPI History of Present Illness Chief Complaint: Chest Pain Narrative Narrative: Patient is a 80-year-old male presenting to the emergency department for right sided arm pain. Patient has a past medical history of ICD/pacemaker placement, recurrent right pleural effusion, carotid artery stenosis, HFrEF, CAD with stent placement, mitral valve replacement, hypertension and hyperlipidemia. Patient states that this morning at 6 AM he woke up with right-sided arm pain. States it feels like a charley horse in his arm. States that the pain has significantly subsided since it started. Reports it starts up in his right sided neck and radiates down his arm and into his shoulder blade. He denies any shortness of breath. Denies any lower extremity edema. States that he is had this pain before since he injured his right arm but states it has not been this intense. Denies any chest pain. [facility] Medical History Implantable cardioverter-defibrillator (ICD) in situ Recurrent right pleural effusion Renal insufficiency Acute hyperkalemia Anemia Pleural effusion on right Acute upper GI bleed Acute non-ST elevation myocardial infarction (NSTEMI) Carotid artery disease CAD (coronary artery disease) Alcohol use Thyroid nodule Insulin dependent diabetes mellitus Diabetes History of renal disease Dietary restriction History of stress test Wears glasses Wears partial dentures Gout Low iron Shortness of breath on exertion Former smoker History of echocardiogram Cardiology follow-up encounter History of heart attack Acute on chronic diastolic (congestive) heart failure Non-rheumatic mitral regurgitation Essential (primary) hypertension Diabetes mellitus type II, controlled Hyperlipidemia Atherosclerotic 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hughes coronary artery without angina pectoris (09/06/23) Ischemic cardiomyopathy Occlusion and stenosis of right carotid artery Home Medications ?Medication ?Instructions ?Recorded ?Last Taken ?Type cyanocobalamin (vitamin B-12) 1,000 mcg subcut QMONTH SUPPLEMENT 07/10/22 09/11/22 History 1,000 mcg/mL injection kit multivitamin 1 tab PO DAILY SUPPLEMENT 07/23/23 09/02/23 History atorvastatin 40 mg tablet 40 mg PO QHS CHOLESTEROL 30 days 09/07/23 Unknown Rx #30 tabs empagliflozin 25 mg tablet 25 mg PO DAILY DIABETES 01/20/24 Unknown History (Jardiance) ferrous sulfate 325 mg (65 mg 325 mg PO DAILY Anemia 08/20/24 09/17/24 History iron) tablet pantoprazole 40 mg tablet,delayed 40 mg PO BID 30 days #60 tabs 07/16/24 Unknown Rx release insulin aspart U-100 100 unit/mL 18 unit subcut TIDCM DIABETES 09/09/24 Unknown History (3 mL) subcutaneous pen insulin glargine 100 unit/mL (3 40 unit subcut DAILY DIABETES 09/09/24 Unknown History mL) subcutaneous pen carvedilol 3.125 mg tablet 3.125 mg PO BID #60 tabs 09/10/24 Unknown Rx Held on 12/23/24. Instructions: Bradycardia spironolactone 25 mg tablet 25 mg PO QAM #90 tabs 10/29/24 Unknown Rx cholecalciferol (vitamin D3) 50 50 mcg PO DAILY 12/23/24 Unknown History mcg (2,000 unit) capsule (Vitamin D3) aspirin 81 mg tablet,delayed 81 mg PO QDAY 03/18/25 Unknown History release (Adult Aspirin Regimen) furosemide 40 mg tablet 40 mg PO BID FLUID 04/22/25 Unknown History Allergy/AdvReac Type Severity Reaction Status Date / Time doxycycline Allergy hives Verified 04/22/25 08:42 Iodinated Contrast Media AdvReac Severe unresponsiv Verified 04/22/25 08:42 (contrast dye - iodinated) e Family History Father CAD (coronary artery disease) Hx CABG x4 vessels Myocardial infarction, Onset Age: 50 Mother Breast cancer Other Acute on chronic diastolic (congestive) heart failure Surgical History Status post biventricular cardiac pacemaker insertion (12/24/24) History of thoracentesis History of coronary artery stent placement Hx of colonoscopy History of left heart catheterization (09/22/18) History of mitral valve replacement with bioprosthetic valve (09/26/18) History of coronary artery stent placement (09/06/23) Social History Smoking Status: Former smoker how long ago did patient quit smokin alcohol intake: current Alcohol type: beer substance use type: does not use caffeine: Yes Type: coffee what type of physical activity do you participate in: other details: occasional rowing machine, biking frequency: other details: occasional rowing machine, biking duration: other details: occasional rowing machine, biking seatbelt use: always do you feel safe at home: Yes ROS ROS ED ROS Narrative see HPI EXAM Physical Exam Narrative Exam Narrative: Vital signs: Reviewed General: Alert and oriented x 3. No acute distress HEENT: Head is normocephalic and atraumatic, sinuses nontender, pupils equal round and reactive. Nares are patent. Oropharynx and throat exams normal. Neck: Supple without lymphadenopathy nontender Cardiovascular: Regular rate and rhythm, no murmurs. No rubs or gallops. Normal S1 and S2 Respiratory: Clear to auscultation bilaterally. No wheezes, rales, rhonchi Abdominal: Soft and nontender. Normal bowel sounds. No guarding or rebound. Nonsurgical abdomen Extremities: No tenderness. No bruising. Normal range of motion. Normal sensation. Skin: No rash or redness. Neurological: Cranial nerves II through XII are grossly intact. Normal strength and sensation. Normal cerebellar function The rest of the physical exam is unremarkable Const Vital Signs: 06/24/25 07:52 06/24/25 07:52 06/24/25 08:42 Temperature 96.7 F L Temperature Source Temporal Pulse Rate 89 71 Respiratory Rate 21 H 11 L Respiratory Effort Normal Non-Labored Blood Pressure 123/69 H Blood Pressure Mean 87 Pulse Ox 99 95 Oxygen Delivery Method Room Air 06/24/25 08:45 06/24/25 09:00 06/24/25 09:15 Temperature Temperature Source Pulse Rate 75 70 72 Respiratory Rate 18 19 H 20 H Respiratory Effort Blood Pressure 127/65 H 132/65 H 125/54 H Blood Pressure Mean 83 82 75 Pulse Ox 95 95 94 Oxygen Delivery Method 06/24/25 09:30 06/24/25 09:45 06/24/25 10:00 Temperature Temperature Source Pulse Rate 70 73 74 Respiratory Rate 13 13 11 L Respiratory Effort Blood Pressure 140/60 H 128/68 H 130/62 H Blood Pressure Mean 83 82 84 Pulse Ox 97 97 98 Oxygen Delivery Method 06/24/25 10:15 06/24/25 10:30 06/24/25 10:45 Temperature Temperature Source Pulse Rate 72 67 67 Respiratory Rate 22 H 16 11 L Respiratory Effort Blood Pressure 128/63 H 133/64 H 128/77 H Blood Pressure Mean 82 83 87 Pulse Ox 97 97 98 Oxygen Delivery Method 06/24/25 11:00 06/24/25 11:15 06/24/25 11:46 Temperature Temperature Source Pulse Rate 74 72 71 Respiratory Rate 24 H 10 L 25 H Respiratory Effort Blood Pressure 134/65 H 129/62 H 97/74 Blood Pressure Mean 86 83 80 Pulse Ox 97 96 98 Oxygen Delivery Method 06/24/25 12:00 06/24/25 12:15 06/24/25 12:30 Temperature Temperature Source Pulse Rate 65 67 69 Respiratory Rate 18 19 H 15 Respiratory Effort Blood Pressure 126/57 H 108/45 L 139/57 H Blood Pressure Mean 75 62 79 Pulse Ox 99 100 99 Oxygen Delivery Method 06/24/25 12:45 06/24/25 13:00 Temperature Temperature Source Pulse Rate 68 68 Respiratory Rate 10 L Respiratory Effort Blood Pressure 122/60 H 123/61 H Blood Pressure Mean 79 81 Pulse Ox 97 98 Oxygen Delivery Method MDM MDM MDM Narrative Medical decision making narrative: Patient is a 80-year-old male presenting to the emergency department for right sided arm pain. Patient was seen and examined. Vitals are stable. Patient resting bed comfortably in no acute distress. Differential includes but is not limited to: ACS, MSK, pneumonia, Less likely aortic pathology or PE EKG shows a ventricular paced rhythm. Negative Sgarbossa criteria. CBC with chronic leukopenia of 3.8, normal hemoglobin at 13.0. BMP with mild hyponatremia of 132. BMP with baseline CKD. Hyperglycemia 178, no anion gap. Initial troponin of 77, reflex again of 77 however 4-hour troponin up to 128. Chest x-ray shows cardiomegaly with mild central vascular congestion and consolidation in the right mid and lower lung with component of moderate effusion which was seen on previous. It is known that he has a pleural effusion on the right. Patient reevaluated. He states that his chest pain is gone. I did speak to on-call cardiology, Dr. Brown, who recommends heparin drip and admission to hospitalist on PCU and he will see the patient likely tomorrow. Patient does have a history of a GI bleed about a year ago. States that he has had no bright red blood per rectum or melena or hematemesis since then. Heparin drip started. Patient given 324 mg aspirin, states he did not take his aspirin this morning. Patient admitted to the hospitalist, Dr. Velasquez for further management. Clinical impression NSTEMI History & Record Review Discussion w/independent historian: Patient and Family Lab Data Attestation: I reviewed the patient's lab results. Labs: Laboratory Results - last 24 hr 06/24/25 06/24/25 06/24/25 07:59 10:12 12:26 WBC 3.8 L RBC 4.75 Hgb 13.0 Hct 39.2 L MCV 82.5 MCH 27.4 MCHC 33.2 RDW Std Deviation 47.8 H RDW Coeff of Ngoc 15.9 H Plt Count 103 L MPV 11.1 Immature Gran % (Auto) 0.500 Neut % (Auto) 77.1 H Lymph % (Auto) 9.5 L [place] % (Auto) 10.8 H Eos % (Auto) 1.6 Baso % (Auto) 0.5 Absolute Neuts (auto) 2.9 Absolute Lymphs (auto) 0.36 L Nucleated RBC % 0 Sodium 132 L Potassium 4.8 Chloride 99 Carbon Dioxide 19.2 L Anion Gap 14 BUN 49 H Creatinine 2.43 H Estim Creat Clear Calc 26.68 L Est GFR (MDRD) Non-Af 27 L BUN/Creatinine Ratio 20.1 H Glucose 178 H Calcium 8.7 Troponin T High Sens 77 H* D Troponin T Hi Sens 2 Hr 77 H* Troponin T Hi Sens 4Hr 128 H* Radiography Chest X-Ray - ED: 2 View, Read by ED Physician, Unchanged, Cardiomegaly and Right Effusion Diagnostic Testing: Clinical Impression(s) from Imaging Studies Chest X-Ray 06/24/25 08:10 IMPRESSION: There is cardiomegaly with mild central vascular congestion. There is consolidation in the right mid and lower lung with a component of moderate effusion, similar to the prior. Reading Location: [place] Discharge Plan Triage Chief Complaint: Chest Pain ED Provider: Neva Simon Dx/Rx/DC Orders Prescriptions: No Action cyanocobalamin (vitamin B-12) 1,000 mcg/mL kit 1,000 mcg subcut QMONTH Patient Comments: PATIENT INJECTS THIS ONCE A MONTH ON THE . multivitamin Tablet 1 tab PO DAILY Jardiance 25 mg tablet 25 mg PO DAILY Rx Instructions: Will start when current supply of farxiga is finished aspirin [Adult Aspirin Regimen] 81 mg tablet,delayed release (DR/EC) 81 mg PO QDAY ferrous sulfate 325 mg (65 mg iron) tablet 325 mg PO DAILY Rx Instructions: 2 tabs daily atorvastatin 40 mg Tablet 40 mg PO QHS 30 Days Qty: 30 0RF insulin aspart U-100 100 unit/mL (3 mL) insulin pen 18 unit subcut TIDCM Rx Instructions: Hold if glucose less than 130 mg/dl insulin glargine 100 unit/mL (3 mL) insulin pen 40 unit subcut DAILY carvedilol 3.125 mg tablet 3.125 mg PO BID Qty: 60 0RF Rx Instructions: must administer with a meal/food pantoprazole 40 mg Tablet,Delayed Release (Dr/Ec) 40 mg PO BID 30 Days Qty: 60 2RF cholecalciferol (vitamin D3) [Vitamin D3] 50 mcg (2,000 unit) capsule 50 mcg PO DAILY spironolactone 25 mg tablet 25 mg PO QAM Qty: 90 3RF furosemide 40 mg tablet 40 mg PO BID Primary Care Provider: Angie Cheng Referrals: Angie Cheng, SYSTEM SOFTWARE DEVELOPER-[employer] [Primary Care Provider] - Print Language: Z[place]ian
--- NOTE | 2025-06-24 08:10 | RAD_ITS ---
PROCEDURE: CHEST PA AND LATERAL 06/24/2025 REASON FOR EXAM: CHEST PAIN TECHNIQUE: CHEST PA AND LATERAL COMPARISON: April 13, 2025 FINDINGS: There is a left-sided cardiac device with wires in position. A prosthetic heart valve is visible. There is cardiomegaly with mild central vascular congestion. There is consolidation in the right mid and lower lung with a component of moderate effusion, similar to the prior. There is no pneumothorax. There is no acute bony abnormality. Aortic calcifications are visible. RAD/Chest PA and Lateral IMPRESSION: There is cardiomegaly with mild central vascular congestion. There is consolidation in the right mid and lower lung with a component of mode rate effusion, similar to the prior. Reading Location: [facility]
[2025-06-24 08:27] LABS: Hematocrit 39.2 % (40-54); Hemoglobin 13.0 g/dL (13.0-16.5); Immature Granulocytes Count 0.020 X10^3/uL (0.0-0.0); Mean Corp Hgb Conc 33.2 g/dL (32-36); Mean Corpuscular Volume 82.5 fL (80-94); Mean Platelet Vol. 11.1 fl (6.2-12.0); NRBC Flagged by Analyzer 0 % (0-5); POSITIVE DIFFERENTIAL YES; Platelet Count 103 K/mm3 (150-450); RBC Distribution Width CV 15.9 % (11.6-14.6); RBC Distribution Width SD 47.8 fl (35.1-43.9); Red Blood Count 4.75 M/mm3 (4.6-6.2); White Blood Count 3.8 K/mm3 (4.4-11.0)
[2025-06-24 08:32] LABS: Anion Gap 14 (5-15); BUN 49 mg/dL (4-19); BUN/Creat Ratio 20.1 RATIO (10-20); Calcium,Total 8.7 mg/dL (7.6-11.0); Carbon Dioxide 19.2 mmol/L (21.0-32.0); Chloride 99 mmol/L (98-108); Estimated Creatinine Clearance 26.68 ml/min (50-250); Glucose 178 mg/dL (70-99); Potassium 4.8 mmol/L (3.3-5.1); Troponin T High Sensitivity 77 ng/L (<=22)
[2025-06-24 11:04] LABS: Troponin T High Sens 2 HR 77 ng/L (<=22)
[2025-06-24 13:01] LABS: Troponin T High Sens 4 HR 128 ng/L (<=22)
[2025-06-24] MEDS: HEPARIN/D5w 25,000 UNITS 25,000 UNITS/250 ML IV.SOLN. 10.8 UNITS CONT INF (13:42)
--- NOTE | 2025-06-24 13:48 | PCM.HP.STD ---
HPI - General General Date of Admission: 06/24/25 Date of Service: 06/24/25 Chief Complaint: Right arm and jaw and back pain HPI Narrative LOVE PHELAN, is a 80-year-old male history of ICD/pacemaker placement, recurrent right pleural effusion, carotid artery stenosis, heart failure with reduced ejection fraction, coronary artery disease with stent placement, mitral valve replacement, hypertension, GERD, diabetes who presented [facility] ED 06/24/2025 for right sided arm pain that he woke up with at 6 AM. Said it felt like a charley horse in his arm and that it significantly subsided from when it started. Did note that it radiates to right side of neck and down her arm and into her shoulder blade with no shortness of breath or lower extremity edema. Denies any substernal chest pain. In the ED patient afebrile, heart rate of 89 and blood pressure 123/69, respiratory rate 21 and pulse ox 99% on room air. CBC with white blood cell count of 3.8 and hemoglobin of 13 with a platelet count of 103, BMP with a sodium of 132, potassium 4.8, BUN of 49 and a creatinine of 2.43 which overall is similar to previous. X-ray showed cardiomegaly with mild central vascular congestion and consolidation in the right mid and lower lung with moderate effusion which is similar to prior. First 2 troponins were 77 and 4-hour troponin 128. Cardiology contacted given history, pain and elevated troponins and recommended heparin drip and admission and he will be seen in consultation. Hospitalist contacted for admission. Patient evaluated bedside. Patient reports history as above, he had a severe charley horse-like pain in his right arm, jaw, and shoulder blade that lasted for a couple of hours and slowly faded and is not present, felt that he had some labored breathing during that time as well but said it was not necessarily overt shortness of breath. Denies swelling in the legs, no nausea or vomiting, no cough, no other new or acute complaints FORMERLY [facility], [facility] Medical History Implantable cardioverter-defibrillator (ICD) in situ Recurrent right pleural effusion Renal insufficiency Acute hyperkalemia Anemia Pleural effusion on right Acute upper GI bleed Acute non-ST elevation myocardial infarction (NSTEMI) Carotid artery disease CAD (coronary artery disease) Alcohol use Thyroid nodule Insulin dependent diabetes mellitus Diabetes History of renal disease Dietary restriction History of stress test Wears glasses Wears partial dentures Gout Low iron Shortness of breath on exertion Former smoker History of echocardiogram Cardiology follow-up encounter History of heart attack Acute on chronic diastolic (congestive) heart failure Non-rheumatic mitral regurgitation Essential (primary) hypertension Diabetes mellitus type II, controlled Hyperlipidemia Atherosclerotic 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[place] coronary artery without angina pectoris (09/06/23) Ischemic cardiomyopathy Occlusion and stenosis of right carotid artery Home Medications ?Medication ?Instructions ?Recorded ?Last Taken ?Type cyanocobalamin (vitamin B-12) 1,000 mcg subcut QMONTH SUPPLEMENT 07/10/22 09/11/22 History 1,000 mcg/mL injection kit multivitamin 1 tab PO DAILY SUPPLEMENT 07/23/23 09/02/23 History atorvastatin 40 mg tablet 40 mg PO QHS CHOLESTEROL 30 days 09/07/23 Unknown Rx #30 tabs empagliflozin 25 mg tablet 25 mg PO DAILY DIABETES 01/20/24 Unknown History (Jardiance) ferrous sulfate 325 mg (65 mg 325 mg PO DAILY Anemia 06/16/24 07/14/24 History iron) tablet pantoprazole 40 mg tablet,delayed 40 mg PO BID 30 days #60 tabs 07/16/24 Unknown Rx release insulin aspart U-100 100 unit/mL 18 unit subcut TIDCM DIABETES 09/09/24 Unknown History (3 mL) subcutaneous pen insulin glargine 100 unit/mL (3 40 unit subcut DAILY DIABETES 09/09/24 Unknown History mL) subcutaneous pen carvedilol 3.125 mg tablet 3.125 mg PO BID #60 tabs 09/10/24 Unknown Rx Held on 12/23/24. Instructions: Bradycardia spironolactone 25 mg tablet 25 mg PO QAM #90 tabs 10/29/24 Unknown Rx cholecalciferol (vitamin D3) 50 50 mcg PO DAILY 12/23/24 Unknown History mcg (2,000 unit) capsule (Vitamin D3) aspirin 81 mg tablet,delayed 81 mg PO QDAY 03/18/25 Unknown History release (Adult Aspirin Regimen) furosemide 40 mg tablet 40 mg PO BID FLUID 04/22/25 Unknown History Allergy/AdvReac Type Severity Reaction Status Date / Time doxycycline Allergy hives Verified 04/22/25 08:42 Iodinated Contrast Media AdvReac Severe unresponsiv Verified 04/22/25 08:42 (contrast dye - iodinated) e Family History Father CAD (coronary artery disease) Hx CABG x4 vessels Myocardial infarction, Onset Age: 50 Mother Breast cancer Other Acute on chronic diastolic (congestive) heart failure Surgical History Status post biventricular cardiac pacemaker insertion (12/24/24) History of thoracentesis History of coronary artery stent placement Hx of colonoscopy History of left heart catheterization (09/22/18) History of mitral valve replacement with bioprosthetic valve (09/26/18) History of coronary artery stent placement (09/06/23) Social History Smoking Status: Former smoker how long ago did patient quit smokin alcohol intake: current Alcohol type: beer substance use type: does not use caffeine: Yes Type: coffee what type of physical activity do you participate in: other details: occasional rowing machine, biking frequency: other details: occasional rowing machine, biking duration: other details: occasional rowing machine, biking seatbelt use: always do you feel safe at home: Yes ROS ROS Narrative General: Denies fever/chills HENT: Denies headache, some nasal congestion intermittently with allergies, denies sore throat EYES: Denies changes in vision Resp: Denies cough, denies shortness of breath at present but did feel he had some labored breathing when he was having the pain Cardiac: Denies chest pain in the center of chest but noted the pain in right arm that radiated to jaw and shoulder blade GI: Denies abdominal pain, denies changes in bowel today, denies nausea/vomiting : Denies changes in urination Extremity: Denies swelling MSK: Denies weakness Neuro: Denies any numbness/tingling Heme: Denies any bleeding or bruising Skin: Denies rashes Psychiatric: No complaints voiced. Vital Signs Vital Signs Vital Signs: 06/24/25 07:52 06/24/25 07:52 06/24/25 08:42 Temperature 96.7 F L Temperature Source Temporal Pulse Rate 89 71 Respiratory Rate 21 H 11 L Respiratory Effort Normal Non-Labored Blood Pressure 123/69 H Blood Pressure Mean 87 Pulse Ox 99 95 Oxygen Delivery Method Room Air 06/24/25 08:45 06/24/25 09:00 06/24/25 09:15 Temperature Temperature Source Pulse Rate 75 70 72 Respiratory Rate 18 19 H 20 H Respiratory Effort Blood Pressure 127/65 H 132/65 H 125/54 H Blood Pressure Mean 83 82 75 Pulse Ox 95 95 94 Oxygen Delivery Method 06/24/25 09:30 06/24/25 09:45 06/24/25 10:00 Temperature Temperature Source Pulse Rate 70 73 74 Respiratory Rate 13 13 11 L Respiratory Effort Blood Pressure 140/60 H 128/68 H 130/62 H Blood Pressure Mean 83 82 84 Pulse Ox 97 97 98 Oxygen Delivery Method 06/24/25 10:15 06/24/25 10:30 06/24/25 10:45 Temperature Temperature Source Pulse Rate 72 67 67 Respiratory Rate 22 H 16 11 L Respiratory Effort Blood Pressure 128/63 H 133/64 H 128/77 H Blood Pressure Mean 82 83 87 Pulse Ox 97 97 98 Oxygen Delivery Method 06/24/25 11:00 06/24/25 11:15 06/24/25 11:46 Temperature Temperature Source Pulse Rate 74 72 71 Respiratory Rate 24 H 10 L 25 H Respiratory Effort Blood Pressure 134/65 H 129/62 H 97/74 Blood Pressure Mean 86 83 80 Pulse Ox 97 96 98 Oxygen Delivery Method 06/24/25 12:00 06/24/25 12:15 06/24/25 12:30 Temperature Temperature Source Pulse Rate 65 67 69 Respiratory Rate 18 19 H 15 Respiratory Effort Blood Pressure 126/57 H 108/45 L 139/57 H Blood Pressure Mean 75 62 79 Pulse Ox 99 100 99 Oxygen Delivery Method 06/24/25 12:45 06/24/25 13:00 Temperature Temperature Source Pulse Rate 68 68 Respiratory Rate 10 L Respiratory Effort Blood Pressure 122/60 H 123/61 H Blood Pressure Mean 79 81 Pulse Ox 97 98 Oxygen Delivery Method Weight Weight: 90.1 kg Body Mass Index (BMI) 27.7 Physical Exam Narrative General: Alert, oriented, no apparent distress HEENT: Atraumatic, normocephalic Eyes: Anicteric, normal conjunctiva, extraocular movements grossly intact Neck: Supple Respiratory: Somewhat diminished at the bases, normal respiratory effort Cardiovascular: Regular rate and rhythm GI: Soft, nontender, nondistended Extremities: No edema Musculoskeletal: Moving all extremities Neuro: No overt focal neurological deficits Skin: No rashes appreciated Psych: Cooperative Results Lab / Micro Data 06/24/25 07:59 06/24/25 07:59 Labs: Laboratory Results - last 24 hr 06/24/25 07:59: WBC 3.8 L, RBC 4.75, Hgb 13.0, Hct 39.2 L, MCV 82.5, MCH 27.4, MCHC 33.2, RDW Std Deviation 47.8 H, RDW Coeff of [place] 15.9 H, Plt Count 103 L, MPV 11.1, Immature Gran % (Auto) 0.500, Neut % (Auto) 77.1 H, Lymph % (Auto) 9.5 L, [place] % (Auto) 10.8 H, Eos % (Auto) 1.6, Baso % (Auto) 0.5, Absolute Neuts (auto) 2.9, Absolute Lymphs (auto) 0.36 L, Nucleated RBC % 0, Sodium 132 L, Potassium 4.8, Chloride 99, Carbon Dioxide 19.2 L, Anion Gap 14, BUN 49 H, Creatinine 2.43 H, Estim Creat Clear Calc 26.68 L, Est GFR (MDRD) Non-Af 27 L, BUN/Creatinine Ratio 20.1 H, Glucose 178 H, Calcium 8.7, Troponin T High Sens 77 H* D 06/24/25 10:12: Troponin T Hi Sens 2 Hr 77 H* 06/24/25 12:26: Troponin T Hi Sens 4Hr 128 H* Imaging Radiology Impression Chest X-Ray 06/24/25 08:10 IMPRESSION: There is cardiomegaly with mild central vascular congestion. There is consolidation in the right mid and lower lung with a component of moderate effusion, similar to the prior. Reading Location: [facility] Assessment & Plan Assessment/Plan (1) Elevated troponin: PLAN: Plan # NSTEMI unclear subtype -Patient with atypical pain however has significant coronary history and elevated troponins -Admit to telemetry -EKG ventricularly paced -Trop first 2 were 77 with the fourth 128 -Echo ordered -Aspirin -Statin -Lipid panel in AM -Heparin drip per cardiology recommendations -Cardiology consult -N.p.o. at midnight in the event patient has heart cath tomorrow # CKD stage IV - Patient yasmine, 2 months ago was 2.27 however last year was up to 2.62, seems to be within the range of patient's normal variations -Avoid nephrotoxic agents -Daily BMPs # History of coronary artery disease - With previous stenting - Management as above # Chronic heart failure with reduced ejection fraction/ICD and pacemaker placement/mitral valve repair - Daily weights, I's and O's - Does not seem to be in overt exacerbation -No increased shortness of breath or leg swelling - Continue home medications as tolerated once med rec updated -Last echo 10/14/2024 with an EF of 25% and stage I diastolic dysfunction - Repeating echo as above #Type 2 diabetes mellitus -Glucose checks and sliding scale insulin - Continue long-acting insulin at lower dose once dosing is verified given patient will be n.p.o. at midnight #GERD -Continue PPI #Hypertension -Continue patient's home medications once verified # Recurrent right pleural effusion -Redemonstrated on chest x-ray, notes that there is no significant difference from previous #DVT ppx: Patient on heparin rochelle Velasquez MD Charges/Coding Visit Charges Inpatient E&M: 96578 Init Hosp L2
--- NOTE | 2025-06-24 14:20 | CASEMGMT ---
Care Management Face to Face with patient for initial transition planning/care coordination assessment in the ED.? This real estate underwriter introduced self and role at [facility]. Patient alert and oriented. Patient willing to participate in assessment and is able to answer all questions appropriately.? Care providers, pharmacy, and demographics verified. Admitting Diagnosis: ?Chest pain Other diagnosis history: ?ICD/pacemaker placement, recurrent right pleural effusion, hypertension, hyperlipidemia PCP: ?[facility] Specialists: ?Haja Blanchard Preferred Pharmacy: [facility] in [place] Insurance: ?[employer] Prescription Benefit: ?yes Living Will/HPOA: completed LNOK: Living Arrangements: ?lives with in a ranch home, independent with ADLs and IADLs. Transportation: drives where needed. DME: ?walk in shower, grab bars, blood pressure cuff, shower chair, cane HHC: ?use in past, did not have a good experience??? Has used outpatient therapy SNF/Rehab: ?none Community Resources: ?none Behavioral Health History: ?none Patient goals: Patient wishes to discharge home, denies need for home health care at this time. Patient denies any further needs or concerns at this time. Disposition Plan: admission to acute; RN CM/SW to follow for discharge planning needs that may arise. Odalys Craig, T[employer] HOUSE SUPERVISOR, OPTICAL ADVISOR
--- NOTE | 2025-06-24 15:11 | ECHOD_ITS ---
Reason For Study Reason For Study: Chest pain, NSTEMI Procedure This was a 2D Doppler, Color Flow transthoracic echocardiogram. The study was technically difficult. Exam performed portable in patient room. Left Ventricle Normal LV size. The estimated ejection fraction is 25-30 %. Severe global left ventricular systolic dysfunction. Stage 2 diastolic dysfunction. The apex is akinetic. The rest of the segments are hypokinetic. Right Ventricle Normal RV size. ICD or pacer leads identified within the right ventricle. Normal systolic function. Atria The left atrium is moderately enlarged. The right atrium is moderately enlarged. ICD or pacer leads identified within the right atrium. Mitral Valve Mean transmitral valve gradient 9.0 mmHg. Mild (1+) mitral valve insufficiency. Bioprosthetic mitral valve. Tricuspid Valve Normal tricuspid valve. Mild (1+) tricuspid valve insufficiency. Pulmonary artery systolic pressure is 56 mmHg. Moderate pulmonary hypertension. Aortic Valve Trisinus/trileaflet aortic valve. Mild focal aortic valve calcification. Aortic sclerosis, no stenosis. Pulmonic Valve Normal pulmonic valve. Trivial pulmonic valve insufficiency. Great Vessels Normal sized aortic root. Pericardium/Pleural No pericardial effusion. Medication Diluted definity 2.0ml given slow IV push to enhance endocardial definition. MMode/2D Measurements & Calculations LVIDd: 5.7 cm IVSd: 1.1 cm LVOT diam: 1.9 cm LVIDs: 4.6 cm LVPWd: 0.89 cm RVDd: 4.0 cm FS: 19.0 % LVOT area: 2.8 cm2 Ao root diam: 3.2 cm LAV(MOD-bp): 139.9 ml LVAd ap4: 50.0 cm2 LAV(MOD-bp) Indexed: 69.2 ml/m2 LVLd ap4: 10.8 cm LAV(MOD-sp2): 186.0 ml EDV(MOD-sp4): 193.3 ml LAV(MOD-sp4): 94.6 ml EDV(sp4-el): 197.6 ml LVAs ap4: 43.7 cm2 LVLs ap4: 10.7 cm ESV(MOD-sp4): 147.0 ml ESV(sp4-el): 152.1 ml EF(MOD-sp4): 24.0 % EF(sp4-el): 23.0 % LVAd ap2: 56.7 cm2 SV(MOD-sp4): 46.3 ml SV(MOD-sp2): 64.1 ml LVLd ap2: 11.1 cm SI(MOD-sp4): 22.9 ml/m2 SI(MOD-sp2): 31.7 ml/m2 EDV(MOD-sp2): 234.5 ml EDV(sp2-el): 246.0 ml LVAs ap2: 47.2 cm2 LVLs ap2: 10.5 cm ESV(MOD-sp2): 170.4 ml ESV(sp2-el): 179.4 ml EF(MOD-sp2): 27.4 % SV(sp4-el): 45.5 ml LA dimension(2D): 4.9 cm LA A4 area: 28.2 cm2 RA A4 area: 21.2 cm2 TAPSE: 1.5 cm Doppler Measurements & Calculations MV E max laurent: 158.7 cm/sec Lat Peak E' Laurent: 4.3 cm/sec Med Peak E' Laurent: 3.1 cm/sec MV A max laurent: 175.0 cm/sec E/E' lat: 37.0 E/E' med: 51.9 MV E/A: 0.91 MV V2 max: 203.8 cm/sec MV P1/2t max laurent: 168.5 cm/sec Ao V2 max: 160.8 cm/sec MV max P.7 mmHg MV P1/2t: 136.9 msec Ao max P.3 mmHg MV V2 mean: 145.3 cm/sec Ao V2 mean: 117.3 cm/sec MV mean P.0 mmHg MV dec slope: 360.3 cm/sec2 Ao mean P.1 mmHg MV V2 VTI: 58.5 cm MVA(P1/2t): 1.6 cm2 Ao V2 VTI: 34.2 cm AV (velocity ratio): 0.81 MVA(VTI): 1.3 cm2 MARQUES(I,D): 2.3 cm2 MARQUES(V,D): 2.2 cm2 LV V1 max: 125.9 cm/sec SV(LVOT): 78.1 ml PA V2 max: 61.6 cm/sec LV V1 max P.3 mmHg LV V1 mean P.6 mmHg LV V1 mean: 89.4 cm/sec LV V1 VTI: 27.6 cm TR max laurent: 362.2 cm/sec TR max P.6 mmHg ECHO/Echo Complete W/ Contrast Interpretation Summary The estimated ejection fraction is 25-30 %. Severe global left ventricular systolic dysfunction. The left atrium is moderately enlarged. The right atrium is moderately enlarged. Bioprosthetic mitral valve. Mild (1+) mitral valve insufficiency. Mild (1+) tricuspid valve insufficiency. Mild focal aortic valve calcification. Contrast injection was performed. Ordering Physician: Kassie Velasquez Referring Physician: Angie Cheng Performed By: Elaina Donovan RDCS
--- NOTE | 2025-06-24 15:11 | EKG12_ITS ---
Test Reason : CP ADMISSION Blood Pressure : */* mmHG Vent. Rate : 68 BPM Atrial Rate : 68 BPM P-R Int : 112 ms QRS Dur : 210 ms QT Int : 528 ms P-R-T Axes : 38 -85 96 degrees QTcB Int : 561 ms Atrial-sensed ventricular-paced rhythm Abnormal ECG Confirmed by Joaquin Bueno ([id number]), digital editor GENA PARSONS ([id number]) on 06/30/2025 6:33:29 AM Referred By: Confirmed By: Joaquin Bueno
[2025-06-24 16:14] LABS: Hematocrit 39.8 % (40-54); Hemoglobin 13.0 g/dL (13.0-16.5); Immature Granulocytes Count 0.020 X10^3/uL (0.0-0.0); Mean Corp Hgb Conc 32.7 g/dL (32-36); Mean Corpuscular Volume 83.1 fL (80-94); NRBC Flagged by Analyzer 0 % (0-5); POSITIVE COUNT YES; POSITIVE DIFFERENTIAL YES; RBC Distribution Width CV 16.0 % (11.6-14.6); RBC Distribution Width SD 48.1 fl (35.1-43.9); Red Blood Count 4.79 M/mm3 (4.6-6.2); White Blood Count 3.1 K/mm3 (4.4-11.0)
--- NOTE | 2025-06-24 16:24 | PCM.CONS.C ---
HPI Consult Data Date of Consult: 06/24/25 HPI Narrative Reason for Consultation: CAD/status post CABG, right-sided arm pain/mild elevation troponins HPI Narrative: LOVE PHELAN, is a 80 M who presents [facility] Medical History Implantable cardioverter-defibrillator (ICD) in situ Recurrent right pleural effusion Renal insufficiency Acute hyperkalemia Anemia Pleural effusion on right Acute upper GI bleed Acute non-ST elevation myocardial infarction (NSTEMI) Carotid artery disease CAD (coronary artery disease) Alcohol use Thyroid nodule Insulin dependent diabetes mellitus Diabetes History of renal disease Dietary restriction History of stress test Wears glasses Wears partial dentures Gout Low iron Shortness of breath on exertion Former smoker History of echocardiogram Cardiology follow-up encounter History of heart attack Acute on chronic diastolic (congestive) heart failure Non-rheumatic mitral regurgitation Essential (primary) hypertension Diabetes mellitus type II, controlled Hyperlipidemia Atherosclerotic 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[place] coronary artery without angina pectoris (09/06/23) Ischemic cardiomyopathy Occlusion and stenosis of right carotid artery Home Medications ?Medication ?Instructions ?Recorded ?Last Taken ?Type cyanocobalamin (vitamin B-12) 1,000 mcg subcut QMONTH SUPPLEMENT 07/10/22 06/11/25 History 1,000 mcg/mL injection kit multivitamin 1 tab PO DAILY SUPPLEMENT 07/23/23 06/23/25 History atorvastatin 40 mg tablet 40 mg PO QHS CHOLESTEROL 30 days 09/07/23 06/23/25 Rx #30 tabs empagliflozin 25 mg tablet 25 mg PO DAILY DIABETES 01/20/24 06/24/25 History (Jardiance) ferrous sulfate 325 mg (65 mg 325 mg PO DAILY Anemia 06/16/24 06/23/25 History iron) tablet pantoprazole 40 mg tablet,delayed 40 mg PO BID GERD 30 days #60 tabs 07/16/24 06/24/25 Rx release insulin aspart U-100 100 unit/mL 18 unit subcut TIDCM DIABETES 09/09/24 06/23/25 History (3 mL) subcutaneous pen insulin glargine 100 unit/mL (3 40 unit subcut DAILY DIABETES 09/09/24 06/23/25 History mL) subcutaneous pen carvedilol 3.125 mg tablet 3.125 mg PO BID heart rate/ blood 09/10/24 06/24/25 Rx Held on 12/23/24. press #60 tabs Instructions: Bradycardia spironolactone 25 mg tablet 25 mg PO QAM fluid #90 tabs 10/29/24 06/23/25 Rx cholecalciferol (vitamin D3) 50 50 mcg PO DAILY supplement 12/23/24 06/23/25 History mcg (2,000 unit) capsule (Vitamin D3) aspirin 81 mg tablet,delayed 81 mg PO QDAY heart 03/18/25 06/23/25 History release (Adult Aspirin Regimen) furosemide 40 mg tablet 40 mg PO BID FLUID 04/22/25 06/23/25 History Allergy/AdvReac Type Severity Reaction Status Date / Time doxycycline Allergy hives Verified 04/22/25 08:42 Iodinated Contrast Media AdvReac Severe unresponsiv Verified 04/22/25 08:42 (contrast dye - iodinated) e Family History Father CAD (coronary artery disease) Hx CABG x4 vessels Myocardial infarction, Onset Age: 50 Mother Breast cancer Other Acute on chronic diastolic (congestive) heart failure Surgical History Status post biventricular cardiac pacemaker insertion (12/24/24) History of thoracentesis History of coronary artery stent placement Hx of colonoscopy History of left heart catheterization (09/22/18) History of mitral valve replacement with bioprosthetic valve (09/26/18) History of coronary artery stent placement (09/06/23) Social History Smoking Status: Former smoker how long ago did patient quit smokin alcohol intake: current Alcohol type: beer substance use type: does not use caffeine: Yes Type: coffee what type of physical activity do you participate in: other details: occasional rowing machine, biking frequency: other details: occasional rowing machine, biking duration: other details: occasional rowing machine, biking seatbelt use: always do you feel safe at home: Yes Physical Exam Cardio Cardio Narrative: Cardiac care plan recommendation 80-year-old patient with extensive cardiac history Patient with known history of CAD Status post multiple PCI's for severe multivessel CAD 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 He has been regularly followed at the cardiology team here at [facility]. Symptoms of discomfort in the right shoulder resolved Has other medical problems with history of carotid artery stenosis status post right carotid endarterectomy last year. Had a history of GI bleed and antiplatelet Plavix has been discontinued. In summary this patient has multiple medical comorbidities Last cardiac catheterization was done in September 06, 2023 where he had a significant atherosclerosis of the proximal LAD Underwent drug-eluting stent using 3.5 x 26 mm Mohit frontier to the proximal LAD. I review all the current evaluation in this admission he has a mild elevation of troponins Renal insufficiency with CKD with creatinine above 2 Cardiac care plan discussed in detail which include the following #1 Will reevaluate by echocardiogram to assess LV function Patient will continue on guideline directed medical therapy. Due to severe LV dysfunction he need to be reevaluated as an outpatient for upgrading of his current pacemaker which is a dual-chamber pacemaker which was placed at [facility] with the plan of upgrading to ICD/BiV pacer. I did explain this in detail to the patient at bedside. The mild elevation of high sensitive troponin is likely type II IA with demand myocardial ischemia in the setting of renal insufficiency and acute on chronic systolic heart failure. And we will continue to monitor and will review the echocardiogram in the morning. Herb Brown MD, FAC, [facility] assistant therapy aide Objective Data Vital Signs: Vital Signs Temp Pulse Resp BP Pulse Ox O2 Del Method 98.2 F 68 16 131/64 H 98 Room Air 06/24/25 15:23 06/24/25 15:23 06/24/25 15:23 06/24/25 15:23 06/24/25 15:23 06/24/25 15:23 Oxygen Delivery Method Room Air Weight: 181 lb 10.574 oz Body Mass Index (BMI) 25.3 Lab / Micro Data 06/24/25 07:59 06/24/25 07:59 Labs: Laboratory Results - last 24 hr 06/24/25 07:59: WBC 3.8 L, RBC 4.75, Hgb 13.0, Hct 39.2 L, MCV 82.5, MCH 27.4, MCHC 33.2, RDW Std Deviation 47.8 H, RDW Coeff of Ngoc 15.9 H, Plt Count 103 L, MPV 11.1, Immature Gran % (Auto) 0.500, Neut % (Auto) 77.1 H, Lymph % (Auto) 9.5 L, [place] % (Auto) 10.8 H, Eos % (Auto) 1.6, Baso % (Auto) 0.5, Absolute Neuts (auto) 2.9, Absolute Lymphs (auto) 0.36 L, Nucleated RBC % 0, Sodium 132 L, Potassium 4.8, Chloride 99, Carbon Dioxide 19.2 L, Anion Gap 14, BUN 49 H, Creatinine 2.43 H, Estim Creat Clear Calc 26.68 L, Est GFR (MDRD) Non-Af 27 L, BUN/Creatinine Ratio 20.1 H, Glucose 178 H, Calcium 8.7, Troponin T High Sens 77 H* D 06/24/25 10:12: Troponin T Hi Sens 2 Hr 77 H* 06/24/25 12:26: Troponin T Hi Sens 4Hr 128 H* Cardiology Labs/Tests 06/24/25 07:59: WBC 3.8 L, RBC 4.75, Hgb 13.0, Hct 39.2 L, MCV 82.5, MCH 27.4, MCHC 33.2, Plt Count 103 L, MPV 11.1, Immature Gran % (Auto) 0.500, Neut % (Auto) 77.1 H, Lymph % (Auto) 9.5 L, [place] % (Auto) 10.8 H, Eos % (Auto) 1.6, Baso % (Auto) 0.5, Absolute Neuts (auto) 2.9, Nucleated RBC % 0, Sodium 132 L, Potassium 4.8, Chloride 99, Carbon Dioxide 19.2 L, Anion Gap 14, BUN 49 H, Creatinine 2.43 H, Est GFR (MDRD) Non-Af 27 L, BUN/Creatinine Ratio 20.1 H, Glucose 178 H, Calcium 8.7 Rhythm: EKG: ECHO: Stress Test: Cardiac Cath: PCI: CT Surgery: Holter monitor: EPS: PPM: CXR: Chest CT Scan: Radiography Diagnostic Testing: Radiology Impression Chest X-Ray 06/24/25 08:10 IMPRESSION: There is cardiomegaly with mild central vascular congestion. There is consolidation in the right mid and lower lung with a component of moderate effusion, similar to the prior. Reading Location: [facility] Risk Score for UA/STEMI Assesmment (YES = 1) Risk Stratification Applicable: No
[2025-06-24 17:46] LABS: Prothrombin Time (Protime)PT. 16.1 SECONDS (11.7-14.9)
[2025-06-24 17:47] LABS: Partial Thromboplast Time 42.8 Seconds (24.1-36.2)
[2025-06-24 18:15] LABS: Differential Indicated SCAN CRITERIA MET
[2025-06-24 20:46] LABS: Platelet Count 89 K/mm3 (150-450)
[2025-06-24 20:46] LABS: Partial Thromboplast Time 71.3 Seconds (24.1-36.2)
[2025-06-24 20:47] LABS: Mean Platelet Vol. 10.5 fl (6.2-12.0)
[2025-06-24 20:48] LABS: Differential Comment SCANNED
[2025-06-25 03:04] LABS: Hematocrit 37.0 % (40-54); Hemoglobin 12.3 g/dL (13.0-16.5); Immature Granulocytes Count 0.010 X10^3/uL (0.0-0.0); Mean Corp Hgb Conc 33.2 g/dL (32-36); Mean Corpuscular Volume 82.2 fL (80-94); Mean Platelet Vol. 10.0 fl (6.2-12.0); NRBC Flagged by Analyzer 0 % (0-5); POSITIVE COUNT YES; POSITIVE DIFFERENTIAL YES; Platelet Count 93 K/mm3 (150-450); RBC Distribution Width CV 16.0 % (11.6-14.6); RBC Distribution Width SD 48.0 fl (35.1-43.9); Red Blood Count 4.50 M/mm3 (4.6-6.2); White Blood Count 2.9 K/mm3 (4.4-11.0)
[2025-06-25 03:07] LABS: Differential Indicated SCAN CRITERIA MET
[2025-06-25 03:12] VITALS: BMI 27.3
[2025-06-25 03:14] LABS: Partial Thromboplast Time 86.5 Seconds (24.1-36.2)
[2025-06-25 03:16] VITALS: BP 125/60; PULSE 68; RESP 16; TEMP 36.5; O2SAT 97
[2025-06-25 03:24] LABS: Anion Gap 12 (5-15); BUN 48 mg/dL (4-19); BUN/Creat Ratio 21.6 RATIO (10-20); Calcium,Total 8.6 mg/dL (7.6-11.0); Carbon Dioxide 19.6 mmol/L (21.0-32.0); Chloride 104 mmol/L (98-108); Estimated Creatinine Clearance 29.08 ml/min (50-250); Glucose 171 mg/dL (70-99); Magnesium 1.6 mg/dL (1.5-2.2); Potassium 4.6 mmol/L (3.3-5.1)
[2025-06-25 04:07] LABS: Differential Comment SCANNED
[2025-06-25 04:21] LABS: Cholesterol 76 mg/dL (<=200); Low Density Lipoprotein Calc. 21 mg/dL; Triglycerides 127 mg/dL; Very Low Density Lipoprotein 25 mg/dL (5-40); cholesterol:hdl ratio screen 2.56
[2025-06-25 07:00] VITALS: PULSE 72
--- NOTE | 2025-06-25 07:32 | PCM.PN.HOSP ---
Reason for Visit Chief Complaint: Right arm and jaw and back pain Subjective Subjective Feels well. No further right arm nor shoulder pain. Objective Data Objective Data Vital Signs: Vital Signs Temp Pulse Resp BP Pulse Ox O2 Del Method 36.5 C L 68 16 125/60 H 97 Room Air 06/25/25 03:16 06/25/25 03:16 06/25/25 03:16 06/25/25 03:16 06/25/25 03:16 06/25/25 03:21 Oxygen Delivery Method Room Air Weight: 89 kg Body Mass Index (BMI) 27.3 Intake & Output: Intake and Output for Last 24 Hours 06/23/25 06/24/25 06/25/25 23:59 23:59 23:59 Intake Total 677.4 / 677.4 63.37 / 63.37 Balance 677.4 / 677.4 63.37 / 63.37 Lab / Micro Data 06/25/25 02:44 06/25/25 02:44 Labs: Laboratory Results - last 24 hr 06/24/25 07:59: WBC 3.8 L, RBC 4.75, Hgb 13.0, Hct 39.2 L, MCV 82.5, MCH 27.4, MCHC 33.2, RDW Std Deviation 47.8 H, RDW Coeff of Ngoc 15.9 H, Plt Count 103 L, MPV 11.1, Immature Gran % (Auto) 0.500, Neut % (Auto) 77.1 H, Lymph % (Auto) 9.5 L, [place] % (Auto) 10.8 H, Eos % (Auto) 1.6, Baso % (Auto) 0.5, Absolute Neuts (auto) 2.9, Absolute Lymphs (auto) 0.36 L, Nucleated RBC % 0, Sodium 132 L, Potassium 4.8, Chloride 99, Carbon Dioxide 19.2 L, Anion Gap 14, BUN 49 H, Creatinine 2.43 H, Estim Creat Clear Calc 26.68 L, Est GFR (MDRD) Non-Af 27 L, BUN/Creatinine Ratio 20.1 H, Glucose 178 H, Calcium 8.7, Troponin T High Sens 77 H* D 06/24/25 10:12: Troponin T Hi Sens 2 Hr 77 H* 06/24/25 12:26: Troponin T Hi Sens 4Hr 128 H* 06/24/25 15:39: WBC 3.1 L, RBC 4.79, Hgb 13.0, Hct 39.8 L, MCV 83.1, MCH 27.1, MCHC 32.7, RDW Std Deviation 48.1 H, RDW Coeff of Ngoc 16.0 H, Plt Count 89 L, MPV 10.5, Immature Gran % (Auto) 0.600, Neut % (Auto) 75.8 H, Lymph % (Auto) 10.2 L, [place] % (Auto) 10.5 H, Eos % (Auto) 1.9, Baso % (Auto) 1.0, Absolute Neuts (auto) 2.4, Absolute Lymphs (auto) 0.32 L, Nucleated RBC % 0, Differential Comment SCANNED, Platelet Estimate MOD DEC, PT 16.1 H, INR 1.3, APTT 42.8 H 06/24/25 16:46: POC Glucose 127 H 06/24/25 20:03: APTT 71.3 H 06/24/25 20:58: POC Glucose 214 H 06/25/25 02:44: WBC 2.9 L, RBC 4.50 L, Hgb 12.3 L, Hct 37.0 L, MCV 82.2, MCH 27.3, MCHC 33.2, RDW Std Deviation 48.0 H, RDW Coeff of Ngoc 16.0 H, Plt Count 93 L, MPV 10.0, Immature Gran % (Auto) 0.300, Neut % (Auto) 71.6 H, Lymph % (Auto) 13.7 L, [place] % (Auto) 11.6 H, Eos % (Auto) 2.1, Baso % (Auto) 0.7, Absolute Neuts (auto) 2.1, Absolute Lymphs (auto) 0.40 L, Nucleated RBC % 0, Differential Comment SCANNED, Platelet Estimate SLT DEC, Plt Morphology Comment LARGE, APTT 86.5 H, Sodium 136, Potassium 4.6, Chloride 104, Carbon Dioxide 19.6 L, Anion Gap 12, BUN 48 H, Creatinine 2.23 H, Estim Creat Clear Calc 29.08 L, Est GFR (MDRD) Non-Af 29 L, BUN/Creatinine Ratio 21.6 H, Glucose 171 H, Calcium 8.6, Magnesium 1.6, Triglycerides 127, Cholesterol 76, LDL Cholesterol, Calc 21, VLDL Cholesterol 25, HDL Cholesterol 30 L, Cholesterol/HDL Ratio 2.56 06/25/25 06:56: POC Glucose 166 H Radiography Diagnostic Testing: Radiology Impression Chest X-Ray 06/24/25 08:10 IMPRESSION: There is cardiomegaly with mild central vascular congestion. There is consolidation in the right mid and lower lung with a component of moderate effusion, similar to the prior. Reading Location: [facility] Physical Exam Const alert and no apparent distress HEENT head/scalp atraumatic and moist oral mucous membranes Resp normal respiratory effort, no retractions, no use of accessory muscles and clear to auscultation bilaterally Cardio regular rate, regular rhythm, S1 normal heart sound and S2 normal heart sound GI normal to inspection, nondistended, normoactive bowel sounds, soft to palpation, non-tender and non-distended Extremity normal to inspection, full ROM and no clubbing, cyanosis or edema Neuro Sensorium / Orientation: awake and alert Assessment & Plan Assessment/Plan (1) NSTEMI, initial episode of care: PLAN: Patient currently symptom-free. Troponins peaked at 128. Heparin gtt. cardiology following. continue ASA, atorvastatin Echo completed, results pending. Further testing to be determined based on findings on the echocardiogram. PLAN: Plan Chronic medical conditions: CKD stage IV: stable. Monitor closely with [facility]. HFrEF: s/p ICD and pacemaker placement/mitral valve repair. Daily weights, I's and O's. Does not seem to be in overt exacerbation. Last echo 10/14/2024 with an EF of 25% and stage I diastolic dysfunction. Repeat echo. Type 2 diabetes mellitus-Glucose checks and sliding scale insulin- Continue long-acting insulin at lower dose once dosing is verified given patient will be n.p.o. at midnight GERD-Continue PPI Hypertension-Continue patient's home medications once verified Recurrent right pleural effusion-Redemonstrated on chest x-ray, notes that there is no significant difference from previous VTE prophylaxis: not indicated as already anticoagulated. Charges/Coding Visit Charges Inpatient E&M: 27938 Subs Hosp L2
[2025-06-25 09:06] VITALS: BP 127/63; PULSE 75; RESP 18; TEMP 37; O2SAT 96
[2025-06-25] MEDS: Insulin Glargine-YFGN 100 UNIT/ML Pen 20 UNIT SC (09:13)
[2025-06-25 10:17] LABS: Partial Thromboplast Time 61.5 Seconds (24.1-36.2)
--- NOTE | 2025-06-25 14:45 | CHAPLAIN ---
Type of Pastoral Visit _x__ Initial Visit ___ Follow-up Visit ___ On-call Visit ___ General Patient Visit ___ Spiritual Assessment ___ Family Conference ___ Bereavement ___ Rapid Response ___ Code Blue ___ Other (describe below) Pastoral Care Referral From _x__ Patient ___ Family ___ Nurse ___ Physician ___ Instrument Lens Grinder ___ Lehr Loader ___ Other (describe below) Sacrament/Intervention _x__ Active listening ___ Anointing ___ Tenriism ___ Bereavement ___ Communion _x__ Casie exploration ___ ___ Life review _x__ Prayer ___ Reconciliation ___ Sacrament of Sick ___ Supportive presence ___ Wedding ___ Other (describe below) Pastoral Comments patient and spouse are in the room; later a daughter comes in and then a second daughter joins them; pt is waiting on the DR and decisions to be made about going home; pt expects to have procedures done but possibly at another time since it is a holiday weekend; pt and spouse talk about their new/young jainism that is growing; good attitudes and peaceful demeanor are evident; pt welcomes prayer
--- NOTE | 2025-06-25 15:37 | PCM.DC.SUM ---
Providers Date of Admission: 06/24/25 Primary Care Physician: EMY Rahman Consultations 06/24/25 15:11 Consult: Cardiology Routine Consulting Provider: Herb Brown Reason for Consult: Right arm and neck pain with elevated troponins EMERGENT Consult: No MD Notified: Yes Date Notified: 06/24/25 Time Notified: 13:56 Method of Notification: ED Physician Initiated Reason For Visit: NSTEMI Diagnosis Discharge Diagnosis (1) NSTEMI, initial episode of care: Status: Acute Code(s): I21.4 - Non-ST elevation (NSTEMI) myocardial infarction Plan: [place] to be type II non-STEMI due to demand ischemia given the patient's underlying heart disease and complicated and possibly skewed troponins given his chronic kidney disease. Patient currently symptom-free. Troponins peaked at 128. Heparin gtt. cardiology following. continue ASA, atorvastatin Echo completed and shows an EF of 25 to 30%. Severe global LV dysfunction. Left atrium moderate enlarged. Right atrium moderately enlarged. Bioprosthetic mitral valve. This is overall worse from November 2024 where his EF at that time was 52% this was at an outside facility, however, he had an echocardiogram at our facility where his EF was 25% back in September 2024. Discussed with Dr. Brown who does not feel the patient needs a cardiac catheterization but needs further follow-up. Does recommend discontinuing his spironolactone given his CKD but continue his other medications as he was taking previously. Plan Chronic medical conditions: CKD stage IV: stable. HFrEF: s/p ICD and pacemaker placement/mitral valve repair. Daily weights, I's and O's. Does not seem to be in overt exacerbation. Last echo 10/14/2024 with an EF of 25% and stage I diastolic dysfunction. Repeat echo. Type 2 diabetes mellitus-Glucose checks and sliding scale insulin- Continue long-acting insulin at lower dose once dosing is verified given patient will be n.p.o. at midnight GERD-Continue PPI Hypertension-Continue patient's home medications once verified Recurrent right pleural effusion-Redemonstrated on chest x-ray, notes that there is no significant difference from previous VTE prophylaxis: not indicated as already anticoagulated. Patient had a workup and is status remained stable as he was high concern for decompensation given his cardiomyopathy. And that was facilitate faster than initial anticipated upon admission. Medications at Discharge Home Medications cyanocobalamin (vitamin B-12) 1,000 mcg/mL injection kit 1,000 mcg subcut QMONTH SUPPLEMENT 07/10/22 multivitamin 1 tab PO DAILY SUPPLEMENT 07/23/23 atorvastatin 40 mg tablet 40 mg PO QHS CHOLESTEROL 30 days #30 tabs 09/07/23 empagliflozin 25 mg tablet (Jardiance) 25 mg PO DAILY DIABETES 01/20/24 ferrous sulfate 325 mg (65 mg iron) tablet 325 mg PO DAILY Anemia 06/16/24 pantoprazole 40 mg tablet,delayed release 40 mg PO BID GERD 30 days #60 tabs 07/16/24 insulin aspart U-100 100 unit/mL (3 mL) subcutaneous pen 18 unit subcut TIDCM DIABETES 09/09/24 insulin glargine 100 unit/mL (3 mL) subcutaneous pen 40 unit subcut DAILY DIABETES 09/09/24 carvedilol 3.125 mg tablet 3.125 mg PO BID heart rate/ blood press #60 tabs 09/10/24 cholecalciferol (vitamin D3) 50 mcg (2,000 unit) capsule (Vitamin D3) 50 mcg PO DAILY supplement 12/23/24 aspirin 81 mg tablet,delayed release (Adult Aspirin Regimen) 81 mg PO QDAY heart 03/18/25 furosemide 40 mg tablet 40 mg PO BID FLUID 04/22/25 Weight / BMI Weight Weight: 89 kg Body Mass Index (BMI) 27.3 ABG / Lab / Microbiology Data 06/25/25 02:44 06/25/25 02:44 Laboratory: Laboratory Results - last 24 hr 06/24/25 15:39: WBC 3.1 L, RBC 4.79, Hgb 13.0, Hct 39.8 L, MCV 83.1, MCH 27.1, MCHC 32.7, RDW Std Deviation 48.1 H, RDW Coeff of Ngoc 16.0 H, Plt Count 89 L, MPV 10.5, Immature Gran % (Auto) 0.600, Neut % (Auto) 75.8 H, Lymph % (Auto) 10.2 L, [place] % (Auto) 10.5 H, Eos % (Auto) 1.9, Baso % (Auto) 1.0, Absolute Neuts (auto) 2.4, Absolute Lymphs (auto) 0.32 L, Nucleated RBC % 0, Differential Comment SCANNED, Platelet Estimate MOD DEC, PT 16.1 H, INR 1.3, APTT 42.8 H 06/24/25 16:46: POC Glucose 127 H 06/24/25 20:03: APTT 71.3 H 06/24/25 20:58: POC Glucose 214 H 06/25/25 02:44: WBC 2.9 L, RBC 4.50 L, Hgb 12.3 L, Hct 37.0 L, MCV 82.2, MCH 27.3, MCHC 33.2, RDW Std Deviation 48.0 H, RDW Coeff of Ngoc 16.0 H, Plt Count 93 L, MPV 10.0, Immature Gran % (Auto) 0.300, Neut % (Auto) 71.6 H, Lymph % (Auto) 13.7 L, [place] % (Auto) 11.6 H, Eos % (Auto) 2.1, Baso % (Auto) 0.7, Absolute Neuts (auto) 2.1, Absolute Lymphs (auto) 0.40 L, Nucleated RBC % 0, Differential Comment SCANNED, Platelet Estimate SLT DEC, Plt Morphology Comment LARGE, APTT 86.5 H, Sodium 136, Potassium 4.6, Chloride 104, Carbon Dioxide 19.6 L, Anion Gap 12, BUN 48 H, Creatinine 2.23 H, Estim Creat Clear Calc 29.08 L, Est GFR (MDRD) Non-Af 29 L, BUN/Creatinine Ratio 21.6 H, Glucose 171 H, Calcium 8.6, Magnesium 1.6, Triglycerides 127, Cholesterol 76, LDL Cholesterol, Calc 21, VLDL Cholesterol 25, HDL Cholesterol 30 L, Cholesterol/HDL Ratio 2.56 06/25/25 06:56: POC Glucose 166 H 06/25/25 09:40: APTT 61.5 H 06/25/25 12:10: POC Glucose 160 H Radiography Diagnostic Testing: Radiology Impression Echocardiogram 06/24/25 15:11 Interpretation Summary The estimated ejection fraction is 25-30 %. Severe global left ventricular systolic dysfunction. The left atrium is moderately enlarged. The right atrium is moderately enlarged. Bioprosthetic mitral valve. Mild (1+) mitral valve insufficiency. Mild (1+) tricuspid valve insufficiency. Mild focal aortic valve calcification. Contrast injection was performed. Ordering Physician: Kassie Velasquez Referring Physician: Angie Cheng Performed By: Elaina Donovan RDCS D/C Instructions DC O2, CPAP, BIPAP Needs Home O2 Discharge instructions: No Meaningful Use Info Meaningful Use Meaningful Use Diagnoses (Choose all that apply): None applicable Discharge Plan Admission Admit Date/Time: 06/24/25 13:48 Primary Reason for Your Visit: Chest pain Attending Provider: Matthew Dowling Primary Care Provider: Angie Cheng Consulting Providers: Herb Brown; Kassie Velasquez Instructions Additional Instructions / Restrictions: You underwent a workup in regards to your heart. You had an echocardiogram that showed your heart is still weak. You met Dr. Brown, of cardiology, he is recommending continue her medications but discontinuing your spironolactone. You would also like you to follow-up with cardiology for close follow-up. If you do have recurrent chest pain, increased shortness of breath, notify your physician or return to the emergency room. Discharge Orders/Prescriptions Prescriptions: Continued cyanocobalamin (vitamin B-12) 1,000 mcg/mL kit 1,000 mcg subcut QMONTH Patient Comments: PATIENT INJECTS THIS ONCE A MONTH ON THE . multivitamin Tablet 1 tab PO DAILY Jardiance 25 mg tablet 25 mg PO DAILY Rx Instructions: Will start when current supply of farxiga is finished aspirin [Adult Aspirin Regimen] 81 mg tablet,delayed release (DR/EC) 81 mg PO QDAY ferrous sulfate 325 mg (65 mg iron) tablet 325 mg PO DAILY Rx Instructions: 2 tabs daily atorvastatin 40 mg Tablet 40 mg PO QHS 30 Days Qty: 30 0RF insulin aspart U-100 100 unit/mL (3 mL) insulin pen 18 unit subcut TIDCM Rx Instructions: Hold if glucose less than 130 mg/dl insulin glargine 100 unit/mL (3 mL) insulin pen 40 unit subcut DAILY carvedilol 3.125 mg tablet 3.125 mg PO BID Qty: 60 0RF Rx Instructions: must administer with a meal/food pantoprazole 40 mg Tablet,Delayed Release (Dr/Ec) 40 mg PO BID 30 Days Qty: 60 2RF cholecalciferol (vitamin D3) [Vitamin D3] 50 mcg (2,000 unit) capsule 50 mcg PO DAILY furosemide 40 mg tablet 40 mg PO BID Discontinued spironolactone 25 mg tablet 25 mg PO QAM Qty: 90 3RF Referrals / Follow Up: [facility] [Provider Group] - Within 1 Month Angie Cheng BUSINESS SERVICES MANAGER-C [Primary Care Provider] - Within 2 Weeks Disposition Disposition (needs filled in before D/C Order can be placed): Home, Self Care Charges/Coding Visit Charges Inpatient E&M: 75888 [facility] Hosp
--- NOTE | 2025-06-25 16:29 | CASEMGMT ---
Patient has order for discharge. RN CM in to discuss needs at discharge. Patient denies needs or help at discharge. Patient had no further questions or concerns.
[2025-06-25 17:00] LABS: Partial Thromboplast Time 71.5 Seconds (24.1-36.2)
== END 2025-06-25 17:13 | disposition home or self-care (01) | DRG 292 ==
LOC: ED 13:51 → PCU 14:01
PROVIDERS: Admitting Provider Internal Medicine; Emergency Provider Student in an Organized Health Care Education/Training Program; PCP Nurse Practitioner Family
DX: I13.0 Hypertensive heart and chronic kidney disease with heart failure and stage 1 through stage 4 chronic kidney disease, or unspecified chronic kidney disease (principal); J90 Pleural effusion, not elsewhere classified; N18.4 Chronic kidney disease, stage 4 (severe); I50.22 Chronic systolic (congestive) heart failure; E11.22 Type 2 diabetes mellitus with diabetic chronic kidney disease; D64.9 Anemia, unspecified; E78.5 Hyperlipidemia, unspecified; I25.10 Atherosclerotic 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native coronary artery without angina pectoris; Z95.2 Presence of prosthetic heart valve; I25.5 Ischemic cardiomyopathy; K21.9 Gastro-esophageal reflux disease without esophagitis; Z79.4 Long term (current) use of insulin; I25.2 Old myocardial infarction; Z79.84 Long term (current) use of oral hypoglycemic drugs; Z87.891 Personal history of nicotine dependence; Z95.5 Presence of coronary angioplasty implant and graft; Z95.0 Presence of cardiac pacemaker; Z79.82 Long term (current) use of aspirin; Z95.810 Presence of automatic (implantable) cardiac defibrillator; Z82.49 Family history of ischemic heart disease and other diseases of the circulatory system
CPT/HCPCS: 36415; 71046; 80048; 80061; 82962; 83735; 84484; 85025; 85610; 85730; 93005; 93306; 97802; 99285; Q9957; A4216; C8929

== ENCOUNTER → 2025-06-29 | Outpatient (CLI) | payer MEDICARE, SELFPAY ==
[2025-06-29 11:46] LABS: Creatinine, Urine (random) 43.90 mg/dL (39.00-259.00); Microalbumin,Random Urine 28.2 mg/L (<20 mg/L)
[2025-06-29 12:08] LABS: Anion Gap 13 (5-15); BUN 60 mg/dL (4-19); BUN/Creat Ratio 25.3 RATIO (10-20); Calcium,Total 8.8 mg/dL (7.6-11.0); Carbon Dioxide 21.8 mmol/L (21.0-32.0); Chloride 98 mmol/L (98-108); Glucose 234 mg/dL (70-99); Potassium 4.7 mmol/L (3.3-5.1)
== END | disposition home or self-care (01) ==
LOC: LAB 10:30
PROVIDERS: PCP Nurse Practitioner Family; Referring Provider Internal Medicine Nephrology; Visit Provider Internal Medicine Nephrology
DX: N17.9 Acute kidney failure, unspecified (principal)
CPT/HCPCS: 36415; 80048; 82043; 82570

== ENCOUNTER → 2025-07-08 | Outpatient (CLI) | payer MEDICARE, SELFPAY ==
--- NOTE | 2025-07-08 07:40 | CDU_ITS ---
Reason For Study Reason For Study: S/P RT CEA Rt. Velocities/BP Lt. Velocities/BP Prox CCA 75.6/10.6 cm/sec. Prox CCA 44.6/11.8 cm/sec. Mid CCA 58.2/11.0 cm/sec. Mid CCA 38.1/11.8 cm/sec. Dist CCA 61.0/14.7 cm/sec. Dist CCA 35.3/12.5 cm/sec. Prox ICA 75.0/25.6 cm/sec. Prox ICA 49.0/15.0 cm/sec. Mid ICA 90.0/24.9 cm/sec. Mid ICA 71.3/20.8 cm/sec. Dist ICA 68.2/21.4 cm/sec. Dist ICA 73.5/24.1 cm/sec. Rt. ICA/CCA = 1.55. Lt. ICA/CCA = 1.93. Prox ECA 260.5/0.0 cm/sec. Prox ECA 21.7/5.1 cm/sec. BIDIRECTIONAL FLOW. Lt. Vert. 65.2/17.9 cm/sec. Right Extracranial There is intimal thickening but no significant atherosclerotic plaque noted in the right common carotid artery. There is heterogeneous, smooth atherosclerotic plaque noted in the right internal carotid artery. There is heterogeneous, irregular atherosclerotic plaque noted in the right external carotid artery. BIDIRECTIONAL FLOW. Left Extracranial There is heterogeneous, irregular atherosclerotic plaque noted in the left common carotid artery. There is heterogeneous, irregular atherosclerotic plaque noted in the left internal carotid artery. There is heterogeneous, irregular atherosclerotic plaque noted in the left external carotid artery. Antegrade flow is noted in the left vertebral artery. Procedure Carotid Duplex [id number]. This is a Carotid Duplex examination using B-mode, color flow and specral Doppler. Exam performed in department. VL/Carotid Duplex Ultrasound Interpretation Summary Mild (<50%) stenosis right extracranial internal carotid. Mild (<50%) stenosis left extracranial internal carotid. The Right vertebral flow is bidirectional. The Left vertebral is patent and antegrade. Ordering Physician: Cathleen Hernandez Referring Physician: Angie Cheng Performed By: Jennifer Urbina RVT, RDCS and Student
== END | disposition home or self-care (01) ==
LOC: CVS 07:39
PROVIDERS: PCP Nurse Practitioner Family; Referring Provider Physician Assistant; Visit Provider Physician Assistant
DX: I65.21 Occlusion and stenosis of right carotid artery (principal); Z48.812 Encounter for surgical aftercare following surgery on the circulatory system
CPT/HCPCS: 93880

== ENCOUNTER → 2025-08-25 | Outpatient (CLI) | payer MEDICARE, SELFPAY ==
--- NOTE | 2025-08-25 12:34 | RAD_ITS ---
PROCEDURE: CHEST PA AND LATERAL 08/25/2025 REASON FOR EXAM: SHORTNESS OF BREATH, HX OF PLEURAL EFFUSION TECHNIQUE: Procedure Code: RADCXR Modality: DX Procedure: CHEST PA AND LATERAL COMPARISON: Chest x-ray of 06/16/2025. RAD/Chest PA and Lateral IMPRESSION: Interior atrial device unchanged in position. Left thoracic transvenous pacemaker with atrial and ventricular leads appear st able. The cardiomediastinal silhouette is unchanged, without evidence cardiomegaly. Moderate right pleural fluid collection again seen, not clearly changed since t he prior study. Right lower lung atelectasis again noted. A very mild degree of interstitial pulmonary edema is likely present, but impro matthias since the prior study of 06/16/2025. No new or worsened pneumonic process is noted. No pneumothorax is seen. No interval osseous change is evident. Reading Location: [place] [id number]
[2025-08-25 13:17] LABS: Hematocrit 39.9 % (40-54); Hemoglobin 12.9 g/dL (13.0-16.5); Immature Granulocytes Count 0.020 X10^3/uL (0.0-0.0); Mean Corp Hgb Conc 32.3 g/dL (32-36); Mean Corpuscular Volume 85.3 fL (80-94); Mean Platelet Vol. 10.0 fl (6.2-12.0); NRBC Flagged by Analyzer 0 % (0-5); POSITIVE DIFFERENTIAL YES; Platelet Count 118 K/mm3 (150-450); RBC Distribution Width CV 16.1 % (11.6-14.6); RBC Distribution Width SD 50.2 fl (35.1-43.9); Red Blood Count 4.68 M/mm3 (4.6-6.2); White Blood Count 4.6 K/mm3 (4.4-11.0)
[2025-08-25 13:50] LABS: Anion Gap 11 (5-15); BUN 60 mg/dL (4-19); BUN/Creat Ratio 26.7 RATIO (10-20); Calcium,Total 8.9 mg/dL (7.6-11.0); Carbon Dioxide 24.9 mmol/L (21.0-32.0); Chloride 99 mmol/L (98-108); Glucose 161 mg/dL (70-99); Potassium 5.0 mmol/L (3.3-5.1); Pro- Brain NATRIURETIC PEPTIDE 5634 pg/mL (<=1800)
== END | disposition home or self-care (01) ==
LOC: RAD 12:33
PROVIDERS: PCP Nurse Practitioner Family; Referring Provider Physician Assistant Medical; Visit Provider Physician Assistant Medical
DX: I50.9 Heart failure, unspecified (principal); N18.32 Chronic kidney disease, stage 3b; R06.02 Shortness of breath; Z87.09 Personal history of other diseases of the respiratory system; Z51.81 Encounter for therapeutic drug level monitoring; Z79.899 Other long term (current) drug therapy
CPT/HCPCS: 36415; 71046; 80048; 83880; 85025

== ENCOUNTER → 2025-09-14 | Outpatient (CLI) | payer MEDICARE, SELFPAY ==
--- NOTE | 2025-09-14 10:52 | ECHOLC_ITS ---
Reason For Study Reason For Study: CHF Procedure This was a limited 2D transthoracic echocardiogram. The study was technically difficult. Contrast injection was performed. Exam performed in department. Left Ventricle Moderately dilated left ventricle. The left ventricular ejection fraction is 20 %. There is severe global hypokinesis of the left ventricle. Right Ventricle Normal RV size. ICD or pacer leads identified within the right ventricle. Normal systolic function. Atria The left atrium is moderately enlarged. Normal right atrium. Mitral Valve Bioprosthetic mitral valve. Tricuspid Valve Normal tricuspid valve. Mild (1+) tricuspid valve insufficiency. Pulmonary artery systolic pressure is 37 mmHg. Aortic Valve Trisinus/trileaflet aortic valve. Mild focal aortic valve calcification. Pulmonic Valve Normal pulmonic valve. Great Vessels Normal aortic root. The pulmonary artery is normal size. Normal inferior vena cava. Pericardium/Pleural No pericardial effusion. Medication 22 gauge I.V. with prn adaptor inserted into left arm. Diluted definity 1ml given slow IV push to enhance endocardial definition. MMode/2D Measurements & Calculations LVIDd: 5.8 cm IVSd: 1.1 cm LAV(MOD- bp): 97.2 ml LVIDs: 5.2 cm LVPWd: 0.99 cm FS: 10.1 % LAV(MOD- bp) Indexed: 47.0 ml/m2 LAV(MOD- sp2): 102.4 ml LAV(MOD- sp4): 81.6 ml SV(MOD- sp4): 41.9 ml LVAd ap4: 46.8 cm2 LVAd ap2: 55.4 cm2 LVLd ap4: 10.2 cm LVLd ap2: 10.7 cm SI(MOD- sp4): 20.3 ml/m2 EDV(MOD-sp4): 174.3 ml EDV(MOD-sp2): 236.6 ml EDV(sp4-el): 183.3 ml EDV(sp2-el): 243.8 ml LVAs ap4: 38.4 cm2 LVAs ap2: 50.7 cm2 LVLs ap4: 9.1 cm LVLs ap2: 11.0 cm ESV(MOD-sp4): 132.4 ml ESV(MOD-sp2): 192.2 ml ESV(sp4-el): 137.4 ml ESV(sp2-el): 199.2 ml EF(MOD-sp4): 24.0 % EF(MOD-sp2): 18.8 % EF(sp4-el): 25.1 % SV(MOD-sp2): 44.4 ml SV(sp4-el): 46.0 ml LA A4 area: 24.9 cm2 SI(MOD-sp2): 21.5 ml/m2 RA A4 area: 19.6 cm2 Doppler Measurements & Calculations TR max shahrzad: 291.4 cm/sec TR max P.0 mmHg ECHO/Echo Limited w/Contrast Interpretation Summary The left ventricular ejection fraction is 20 %. The left atrium is moderately enlarged. Moderately dilated left ventricle. There is severe global hypokinesis of the left ventricle. Pulmonary artery systolic pressure is 37 mmHg. Contrast injection was performed. Ordering Physician: Alma Delia Aquino Referring Physician: Angie Cheng Performed By: Phil Dubon RDCS
== END | disposition home or self-care (01) ==
LOC: CVS 10:51
PROVIDERS: PCP Nurse Practitioner Family; Referring Provider Nurse Practitioner Family; Visit Provider Nurse Practitioner Family
DX: I50.33 Acute on chronic diastolic (congestive) heart failure (principal)
CPT/HCPCS: 93308; Q9957; A4216; C8924